=== PATIENT | male | born 1980 | race Caucasian/White ===

== ENCOUNTER 2020-11-09 14:42 | Emergency (ER) | payer SELFPAY ==
[~2020-11-09] VITALS: Ht 180 cm; Wt 108.0 kg
--- NOTE | 2020-11-09 15:00 | ED Lower Extremity ---
General Chief Complaint: Lower Extremity Stated Complaint: R KNEE PAIN Source: patient Exam Limitations: no limitations History of Present Illness Date Seen by Provider: Nov 09, 2020 Time Seen by Provider: 14:59 Initial Comments To ER with right lateral knee pain x4 days no known injury. He had this happen previously but it resolved on its own. No fevers or chills. He has been jogging lately. Onset: just prior to arrival Severity: moderate Pain/Injury Location: right knee Method of Injury: unknown Modifying Factors: Worse With Movement Allergies and Home Medications Allergies Coded Allergies: Penicillins (Verified Allergy, Unknown, 11/09/20) Home Medications Hydrocodone/Acetaminophen 1 Each Tablet, 1 TAB PO Q4H PRN for PAIN-MODERATE (5- 7) Prescribed by: SOFÍA ECHEVARRIA on 11/09/20 1553 Naproxen 500 Mg Tablet, 500 MG PO BID PRN for PAIN-SEVERE (8-10) Prescribed by: SOFÍA ECHEVARRIA on 11/09/20 1553 Patient Home Medication List Home Medication List Reviewed: Yes Review of Systems Constitutional: see HPI EENTM: see HPI Respiratory: no symptoms reported Cardiovascular: no symptoms reported Genitourinary: no symptoms reported Musculoskeletal: see HPI Skin: no symptoms reported Psychiatric/Neurological: No Symptoms Reported Physical Exam Vital Signs Vital Signs - First Documented 11/09/20 14:50 Temp 37.0 Pulse 94 Resp 16 B/P (MAP) 135/81 (99) Pulse Ox 97 O2 Delivery Room Air Capillary Refill : Height, Weight, BMI Height: '" Weight: lbs. oz. kg; BMI Method: General Appearance: WD/WN, no apparent distress Respiratory: no respiratory distress, no accessory muscle use Hips: bilateral hip non-tender, bilateral hip normal inspection, bilateral hip normal range of motion Legs: bilateral leg non-tender, bilateral leg normal inspection, bilateral leg normal range of motion Knees: right knee other (The lateral knee over the distal femur is tender to palpation but normal in appearance without palpable effusion no erythema no ecchymosis.) Ankles: bilateral ankle non-tender, bilateral ankle normal inspection, b ilateral ankle normal range of motion Feet: bilateral foot non-tender, bilateral foot normal inspection, bilateral foot normal range of motion Neurologic/Psychiatric: alert, normal mood/affect, oriented x 3 Skin: normal color, warm/dry Progress/Results/Core Measures Results/Orders My Orders Orders - SOFÍA ECHEVARRIA APRN Knee, Right, 3 Views (11/09/20 14:53) Ketorolac Injection (Toradol Injection) (11/09/20 16:00) Dexamethasone Injection (Decadron Inje (11/09/20 16:00) Vital Signs/I&O 11/09/20 14:50 Temp 37.0 Pulse 94 Resp 16 B/P (MAP) 135/81 (99) Pulse Ox 97 O2 Delivery Room Air Departure Impression Primary Impression: Iliotibial band syndrome of right side Disposition: HOME, SELF-CARE Condition: Stable Departure-Patient Inst. Decision time for Depature: 15:04 Referrals: NO,LOCAL PHYSICIAN (PCP) Primary Care Physician CORINA CORDERO MD, MICHAEL P MD Patient Instructions: NO INSTRUCTIONS GIVEN Add. Discharge Instructions: Ice pack to the area for 15 minutes every hour for the next few days. Take a nti-inflammatories as directed. Avoid any activities that worsen the pain for at least a week. Follow-up with one of the orthopedist listed. Call tomorrow to make an appointment to be seen. All discharge instructions reviewed with patient and/or family. Voiced understanding. Scripts Hydrocodone/Acetaminophen (Hydrocodone-Acetamin 5-325 mg) 1 Each Tablet 1 TAB PO Q4H PRN for PAIN-MODERATE (5-7), #5 TAB Prov: SOFÍA ECHEVARRIA APRN 11/09/20 Naproxen (Naprosyn) 500 Mg Tablet 500 MG PO BID PRN for PAIN-SEVERE (8-10), #30 TAB 0 Refills Prov: SOFÍA ECHEVARRIA APRN 11/09/20 Images Extremities-Lower 1 - Tenderness SOFÍA ECHEVARRIA APRN Nov 09, 2020 15:00
--- NOTE | 2020-11-09 15:36 | Diagnostic Imaging Report ---
EXAMINATION: Right knee 3 views. HISTORY: Pain. COMPARISON: None available. FINDINGS: No fracture is seen. Alignment is normal. There is no effusion. IMPRESSION: No fracture in the right knee. Dictated by: Dictated on workstation # [id number]
[2020-11-09] MEDS ORDERED: ACHD5005 PO (15:53)
[2020-11-09] MEDS ORDERED: NAPR-1071 PO (15:53)
[2020-11-09] MEDS ORDERED: KETOROLAC 60 MG/2 ML VIAL IM ONE (16:00)
[2020-11-09 16:02] VITALS: BP 135/81
== END 2020-11-09 16:02 | disposition home or self-care (01) ==
LOC: ER 14:45
DX: M76.31 Iliotibial band syndrome, right leg (principal); Z88.0 Allergy status to penicillin
CPT/HCPCS: 73562

== ENCOUNTER 2020-11-12 18:46 | Inpatient (IN) | payer SELFPAY ==
[~2020-11-12] VITALS: Ht 180.3 cm; Wt 120.4 kg
[~2020-11-12 18:46] MED LIST: ACHD5005 PO; NAPR-1071 PO
--- NOTE | 2020-11-12 18:53 | ED General ---
General Stated Complaint: LEFT SIDE NUMBNESS, CP Source of Information: Patient Exam Limitations: No Limitations History of Present Illness Date Seen by Provider: Nov 12, 2020 Time Seen by Provider: 18:52 Initial Comments To ER with chest pain x4 days, shortness of breath since yesterday. No cough. Numbness left pinky finger/ left face that started 2 hours ago. States that he has a history of atrial fibrillation. Does not take his medications for it. Just moved back here from [facility] after getting out of halfway. Timing/Duration: 1-2 Days Severity: Moderate Associated Systoms: Denies Symptoms Allergies and Home Medications Allergies Coded Allergies: Penicillins (Verified Allergy, Unknown, 11/09/20) Home Medications Hydrocodone/Acetaminophen 1 Each Tablet, 1 TAB PO Q4H PRN for PAIN-MODERATE (5- 7) Prescribed by: SOFÍA ECHEVARRIA on 11/09/20 155 Naproxen 500 Mg Tablet, 500 MG PO BID PRN for PAIN-SEVERE (8-10) Prescribed by: SOFÍA ECHEVARRIA on 11/09/20 155 Patient Home Medication List Home Medication List Reviewed: Yes Review of Systems Review of Systems Constitutional: see HPI EENTM: see HPI Respiratory: no symptoms reported Cardiovascular: no symptoms reported Genitourinary: no symptoms reported Musculoskeletal: no symptoms reported Skin: no symptoms reported Psychiatric/Neurological: No Symptoms Reported Hematologic/Lymphatic: No Symptoms Reported Immunological/Allergic: no symptoms reported Past Nxisoqa-Rhzypo-Zqlhov Hx Patient Social History Recent Hopitalizations: No Past Medical History Surgeries: No Respiratory: No Cardiac: Yes Atrial Fibrillation Neurological: No Genitourinary: No Gastrointestinal: No Musculoskeletal: No Endocrine: No HEENT: No Cancer: No Psychosocial: No Integumentary: No Physical Exam Vital Signs Vital Signs - First Documented 11/12/20 18:48 Temp 35.9 Pulse 180 Resp 28 B/P (MAP) 157/115 (129) Pulse Ox 98 O2 Delivery Room Air Capillary Refill : Height, Weight, BMI Height: '" Weight: lbs. oz. kg; 33.00 BMI Method: General Appearance: No Apparent Distress, WD/WN, Obese Eyes: Bilateral Eye Normal Inspection, Bilateral Eye PERRL, Bilateral Eye EOMI Neck: Full Range of Motion, Normal Inspection Respiratory: No Accessory Muscle Use, No Respiratory Distress Cardiovascular: Irregularly Irregular, Tachycardia Gastrointestinal: Non Tender, Soft Extremity: Normal Capillary Refill, Normal Inspection Neurologic/Psychiatric: Alert, Oriented x3 Skin: Normal Color, Warm/Dry Progress/Results/Core Measures Suspected Sepsis SIRS Temperature: Pulse: Respiratory Rate: Laboratory Tests 11/12/20 18:56: White Blood Count 16.1H Blood Pressure / Mean: Laboratory Tests 11/12/20 18:56: Creatinine 1.02, INR Comment 1.1, Platelet Count 252, Total Bilirubin 0.4 Results/Orders Lab Results Laboratory Tests Test 11/12/20 18:56 11/12/20 20:07 Range/Units White Blood Count 16.1 H 4.3-11.0 10^3/uL Red Blood Count 4.82 4.30-5.52 10^6/uL Hemoglobin 15.5 13.3-17.7 g/dL Hematocrit 46 40-54 % Mean Corpuscular Volume 94 80-99 fL Mean Corpuscular Hemoglobin 32 25-34 pg Mean Corpuscular Hemoglobin Concent 34 32-36 g/dL Red Cell Distribution Width 13.7 10.0-14.5 % Platelet Count 252 130-400 10^3/uL Mean Platelet Volume 11.3 9.0-12.2 fL Immature Granulocyte % (Auto) 1 % Neutrophils (%) (Auto) 64 42-75 % Lymphocytes (%) (Auto) 23 12-44 % Monocytes (%) (Auto) 10 0-12 % Eosinophils (%) (Auto) 2 0-10 % Basophils (%) (Auto) 0 0-10 % Neutrophils # (Auto) 10.3 H 1.8-7.8 10^3/uL Lymphocytes # (Auto) 3.7 1.0-4.0 10^3/uL Monocytes # (Auto) 1.5 H 0.0-1.0 10^3/uL Eosinophils # (Auto) 0.3 0.0-0.3 10^3/uL Basophils # (Auto) 0.1 0.0-0.1 10^3/uL Immature Granulocyte # (Auto) 0.2 H 0.0-0.1 10^3/uL Prothrombin Time 14.8 H 12.2-14.7 SEC INR Comment 1.1 0.8-1.4 Activated Partial Thromboplast Time 29 24-35 SEC Sodium Level 137 135-145 MMOL/L Potassium Level 4.1 3.6-5.0 MMOL/L Chloride Level 101 98-107 MMOL/L Carbon Dioxide Level 22 21-32 MMOL/L Anion Gap 14 5-14 MMOL/L Blood Urea Nitrogen 27 H 7-18 MG/DL Creatinine 1.02 0.60-1.30 MG/DL Estimat Glomerular Filtration Rate > 60 BUN/Creatinine Ratio 26 Glucose Level 110 H 70-105 MG/DL Calcium Level 9.5 8.5-10.1 MG/DL Corrected Calcium 9.3 8.5-10.1 MG/DL Magnesium Level 2.1 1.6-2.4 MG/DL Total Bilirubin 0.4 0.1-1.0 MG/DL Aspartate Amino Transf (AST/SGOT) 47 H 5-34 U/L Alanine Aminotransferase (ALT/SGPT) 69 H 0-55 U/L Alkaline Phosphatase 69 40-136 U/L Myoglobin 93.0 H 10.0-92.0 NG/ML Troponin I 0.031 H <0.028 NG/ML B-Type Natriuretic Peptide 864.2 H <100.0 PG/ML Total Protein 7.7 6.4-8.2 GM/DL Albumin 4.3 3.2-4.5 GM/DL Procalcitonin 0.05 <0.10 NG/ML My Orders Orders - SOFÍA ECHEVARRIA APRN Cbc With Automated Diff (11/12/20 18:50) Magnesium (11/12/20 18:50) Chest 1 View, Ap/Pa Only (11/12/20 18:50) Ekg Tracing (11/12/20 18:50) Comprehensive Metabolic Panel (11/12/20 18:50) Myoglobin Serum (11/12/20 18:50) Protime With Inr (11/12/20 18:50) Partial Thromboplastin Time (11/12/20 18:50) O2 (11/12/20 18:50) Monitor-Rhythm Ecg Trace Only (11/12/20 18:50) Lipid Panel (11/13/20 06:00) Ed Iv/Invasive Line Start (11/12/20 18:50) BNP (11/12/20 18:50) Troponin I (11/12/20 18:50) Aspirin Chewable Tablet (Baby Aspirin Ch (11/12/20 19:00) Diltiazem Injection (Cardizem Injection) (11/12/20 19:00) Diltiazem Drip Pre-Mix (Cardizem Drip Pr (11/12/20 19:00) Ct Angio Head/Neck (11/12/20 18:57) Iohexol Injection (Omnipaque 350 Mg/Ml 1 (11/12/20 19:00) Received Contrast (Hold Metformin- Contr (11/12/20 19:00) Ns (Ivpb) (Sodium Chloride 0.9% Ivpb Bag (11/12/20 19:00) Manual Differential (11/12/20 18:56) Procalcitonin (Pct) (11/12/20 19:25) Ns Iv 1000 Ml (Sodium Chloride 0.9%) (11/12/20 19:30) Ua Culture If Indicated (11/12/20 19:50) Drug Screen Stat (Urine) (11/12/20 19:50) Apixaban Tablet (Eliquis Tablet) (11/12/20 20:00) Lipase (11/12/20 20:06) Antacid Suspension (Mylanta Suspension (11/12/20 20:15) Lidocaine 2% Viscous 15 Ml (Xylocaine Vi (11/12/20 20:15) Medications Given in ED Current Medications Medications Dose Ordered Sig/[place] Route Start Time Stop Time Status Last Admin Dose Admin Al Hydrox/Mg Hydrox/Simethicone 30 ml ONCE ONCE PO 11/12/20 20:15 11/12/20 20:16 11/12/20 20:14 30 ML Apixaban 5 mg ONCE ONCE PO 11/12/20 20:00 11/12/20 20:01 DC 11/12/20 20:14 5 MG Aspirin 324 mg ONCE ONCE PO 11/12/20 19:00 11/12/20 19:01 DC 11/12/20 19:42 324 MG Diltiazem HCl 10 mg ONCE ONCE IVP 11/12/20 19:00 11/12/20 19:01 DC 11/12/20 19:42 10 MG Iohexol 75 ml ONCE ONCE IV 11/12/20 19:00 11/12/20 19:17 DC 11/12/20 19:13 75 ML Lidocaine HCl 15 ml ONCE ONCE PO 11/12/20 20:15 11/12/20 20:16 11/12/20 20:14 15 ML Sodium Chloride 100 ml ONCE ONCE IV 11/12/20 19:00 11/12/20 19:17 DC 11/12/20 19:13 80 ML Vital Signs/I&O 11/12/20 11/12/20 18:48 18:48 Temp 35.9 Pulse 180 Resp 28 B/P (MAP) 157/115 (129) Pulse Ox 98 O2 Delivery Room Air Capillary Refill : Diagnostic Imaging Diagonstic Imaging: Xray Comments NAME: PAL VALERIO [facility] REC#: [id number] PT STATUS: REG ER : 1980 PHYSICIAN: SOFÍA ECHEVARRIA APRN ADMIT DATE: 11/12/20/ER Draft Date of Exam:11/12/20 CHEST 1 VIEW, AP/PA ONLY INDICATION: Left-sided facial numbness and shortness of air. EXAMINATION: Chest, 11/12/2020. FINDINGS: The heart is enlarged. The pulmonary vasculature is congested with findings of edema throughout both lungs. There is minimal atelectasis or infiltrate at the right lung base. No effusion or pneumothorax. IMPRESSION: 1. Pulmonary vascular congestion. 2. Right base atelectasis or infiltrate. Dictated on workstation # [id number] Dict: 11/12/201908 Trans: 11/12/201911 [id number] Interpreted by: SHARON SINGH MD Electronically signed by: NAME: PAL VALERIO [facility] REC#: [id number] PT STATUS: REG ER : 1980 PHYSICIAN: SOFÍA ECHEVARRIA APRN ADMIT DATE: 11/12/20/ER Signed Date of Exam:11/12/20 CT ANGIO HEAD/NECK PROCEDURE: CT angiography of the head and CT angiography of the neck with and without contrast. TECHNIQUE: Contiguous noncontrast images were obtained from the skull base through the vertex. After intravenous contrast administration, helical CT angiography of the neck was performed. Source data was reformatted into 3D MIP projections. Delayed post contrast acquisition was also obtained. Auto Exposure Controls were utilized during the CT exam to meet ALARA standards for radiation dose reduction. INDICATION: Tachycardia. Left facial numbness. Left-sided weakness. Atrial fibrillation. COMPARISON: None. FINDINGS: CTA neck: The visualized portions of the aortic arch demonstrate no evidence of aneurysm or dissection. There is conventional branching pattern of the great vessels of the aorta. The brachiocephalic artery is normal in course and caliber. The right and left common carotid origins are unremarkable. The origin of the left subclavian artery is patent. The common carotid arteries and internal carotid arteries demonstrate a normal course and caliber without evidence of focal stenosis. No evidence of dissection in the carotid systems. The external carotid arteries are patent and unremarkable. The left vertebral artery is dominant. The origin of the right vertebral artery is seen and is unremarkable. The origin of the left vertebral artery is seen and is unremarkable. There is no focal stenosis seen within the neck. There is no dissection. The vertebral arteries are well visualized to up to the level of the basilar artery. The osseous structures of the cervical spine are unremarkable. Included views through the lung apices demonstrate no focal consolidation. CTA brain: The distal internal carotid arteries demonstrate normal caliber without evidence of stenosis. No stenosis is seen in the bilateral anterior, middle, and posterior cerebral arteries. No evidence of aneurysm the [place]. In the posterior circulation, both of the vertebral arteries demonstrate normal opacification. The left vertebral artery is dominant. The right vertebral artery functionally ends in PICA. Both the right and left PICA arteries are identified. The basilar artery is normal in course and caliber. The terminal branch vessels including the superior cerebellar arteries unremarkable. CT head: No large acute territorial ischemia, mass, or hemorrhage. No midline shift or mass effect. The ventricles, cortical sulci, and basilar cisterns are patent and unremarkable. The calvarium is intact. The visualized paranasal sinuses are clear. IMPRESSION: 1. No stenosis or aneurysm in the [place]. 2. No stenosis or dissection the bilateral carotid and vertebral arteries. 3. No large acute territorial ischemia, mass, or hemorrhage. Dictated by: Dictated on workstation # [id number] Dict: 11/12/201930 Trans: 11/12/201946 PJE [id number] Interpreted by: MARILYN FREIRE DO Electronically signed by: MARILYN FREIRE DO 11/12/201946 Departure Communication (Admissions) Time/Spoke to Admitting Phy: 20:[address] Hernandez, will continue the Cardizem drip and of the Eliquis. Patient does now complain of some epigastric abdominal tenderness to palpation. I will order lipase and a GI cocktail. Heart rate is currently at 111. Cardizem at 15 mg an hour. Tingling in the left side of the face and the left pinky finger is now gone, he states "maybe I was just having a panic attack". Impression Primary Impression: Atrial fibrillation with RVR Disposition: ADMITTED INPATIENT Condition: Stable Admissions Decision to Admit Reason: Admit from ER (General) Decision to Admit/Date: Nov 12, 2020 Time/Decision to Admit Time: 19:09 Departure-Patient Inst. Referrals: NO,LOCAL PHYSICIAN (PCP/Family) Primary Care Physician SOFÍA ECHEVARRIA APRN Nov 12, 2020 18:53
[2020-11-12] MEDS ORDERED: ASPIRIN 81 MG CHEW (CHILDREN'S ASA) PO ONE (19:00)
[2020-11-12] MEDS ORDERED: dilTIAZem DRIP PRE-MIX 125 ML IV SCH (19:00)
[2020-11-12] MEDS ORDERED: HOLD METFORMIN - RECEIVED CONTRAST 20 ML VIAL IV SCH (19:00)
[2020-11-12] MEDS ORDERED: IOHEXOL 350 MG/ML 100 ML (OMNIPAQUE 350) VIAL IV ONE (19:00)
[2020-11-12] MEDS ORDERED: NS 100 ML (IVPB) BAG IV ONE (19:00)
--- NOTE | 2020-11-12 19:12 | Diagnostic Imaging Report ---
INDICATION: Left-sided facial numbness and shortness of air. EXAMINATION: Chest, 11/12/2020. FINDINGS: The heart is enlarged. The pulmonary vasculature is congested with findings of edema throughout both lungs. There is minimal atelectasis or infiltrate at the right lung base. No effusion or pneumothorax. IMPRESSION: 1. Pulmonary vascular congestion. 2. Right base atelectasis or infiltrate. Dictated by: Dictated on workstation # [id number]
[2020-11-12 19:16] LABS: BASOPHILS # (AUTO) 0.1 10^3/uL (0.0-0.1); BASOPHILS % (AUTO) 0 % (0-10); EOSINOPHILS # (AUTO) 0.3 10^3/uL (0.0-0.3); EOSINOPHILS % (AUTO) 2 % (0-10); HEMATOCRIT 46 % (40-54); HEMOGLOBIN 15.5 g/dL (13.3-17.7); LYMPHOCYTES # (AUTO) 3.7 10^3/uL (1.0-4.0); LYMPHOCYTES % (AUTO) 23 % (12-44); MEAN CORPUSCULAR HEMOGLOBIN 32 pg (25-34); MEAN CORPUSCULAR HGB CONC 34 g/dL (32-36); MEAN CORPUSCULAR VOLUME 94 fL (80-99); MEAN PLATELET VOLUME 11.3 fL (9.0-12.2); MONOCYTES # (AUTO) 1.5 10^3/uL (0.0-1.0); MONOCYTES % (AUTO) 10 % (0-12); NEUTROPHILS # (AUTO) 10.3 10^3/uL (1.8-7.8); NEUTROPHILS % (AUTO) 64 % (42-75); PLATELET COUNT 252 10^3/uL (130-400); WHITE BLOOD COUNT 16.1 10^3/uL (4.3-11.0)
[2020-11-12 19:19] LABS: ALBUMIN 4.3 GM/DL (3.2-4.5); CHLORIDE 101 MMOL/L (98-107); POTASSIUM 4.1 MMOL/L (3.6-5.0); SODIUM 137 MMOL/L (135-145)
[2020-11-12 19:20] LABS: CALCIUM 9.5 MG/DL (8.5-10.1)
[2020-11-12 19:21] LABS: GLUCOSE 110 MG/DL (70-105)
[2020-11-12 19:22] LABS: TOTAL PROTEIN 7.7 GM/DL (6.4-8.2)
[2020-11-12 19:23] LABS: BILIRUBIN,TOTAL 0.4 MG/DL (0.1-1.0); CARBON DIOXIDE 22 MMOL/L (21-32)
[2020-11-12 19:25] LABS: ALKALINE PHOSPHATASE 69 U/L (40-136); CREATININE SERUM 1.02 MG/DL (0.60-1.30); GFR ESTIMATED > 60
[2020-11-12 19:26] LABS: BUN/CREATININE RATIO 26
[2020-11-12 19:28] LABS: ALANINE AMINOTRANSFERASE 69 U/L (0-55); INR 1.1 (0.8-1.4); MAGNESIUM 2.1 MG/DL (1.6-2.4); PROTHROMBIN TIME PATIENT 14.8 SEC (12.2-14.7)
[2020-11-12] MEDS ORDERED: NS IV 1000 ML 1,000 ML IV SCH (19:30)
--- NOTE | 2020-11-12 19:42 | Diagnostic Imaging Report ---
PROCEDURE: CT angiography of the head and CT angiography of the neck with and without contrast. TECHNIQUE: Contiguous noncontrast images were obtained from the skull base through the vertex. After intravenous contrast administration, helical CT angiography of the neck was performed. Source data was reformatted into 3D MIP projections. Delayed post contrast acquisition was also obtained. Auto Exposure Controls were utilized during the CT exam to meet ALARA standards for radiation dose reduction. INDICATION: Tachycardia. Left facial numbness. Left-sided weakness. Atrial fibrillation. COMPARISON: None. FINDINGS: CTA neck: The visualized portions of the aortic arch demonstrate no evidence of aneurysm or dissection. There is conventional branching pattern of the great vessels of the aorta. The brachiocephalic artery is normal in course and caliber. The right and left common carotid origins are unremarkable. The origin of the left subclavian artery is patent. The common carotid arteries and internal carotid arteries demonstrate a normal course and caliber without evidence of focal stenosis. No evidence of dissection in the carotid systems. The external carotid arteries are patent and unremarkable. The left vertebral artery is dominant. The origin of the right vertebral artery is seen and is unremarkable. The origin of the left vertebral artery is seen and is unremarkable. There is no focal stenosis seen within the neck. There is no dissection. The vertebral arteries are well visualized to up to the level of the basilar artery. The osseous structures of the cervical spine are unremarkable. Included views through the lung apices demonstrate no focal consolidation. CTA brain: The distal internal carotid arteries demonstrate normal caliber without evidence of stenosis. No stenosis is seen in the bilateral anterior, middle, and posterior cerebral arteries. No evidence of aneurysm the [place]. In the posterior circulation, both of the vertebral arteries demonstrate normal opacification. The left vertebral artery is dominant. The right vertebral artery functionally ends in PICA. Both the right and left PICA arteries are identified. The basilar artery is normal in course and caliber. The terminal branch vessels including the superior cerebellar arteries unremarkable. CT head: No large acute territorial ischemia, mass, or hemorrhage. No midline shift or mass effect. The ventricles, cortical sulci, and basilar cisterns are patent and unremarkable. The calvarium is intact. The visualized paranasal sinuses are clear. IMPRESSION: 1. No stenosis or aneurysm in the [place]. 2. No stenosis or dissection the bilateral carotid and vertebral arteries. 3. No large acute territorial ischemia, mass, or hemorrhage. Dictated by: Dictated on workstation # [id number]
[2020-11-12] MEDS ORDERED: APIXABAN 5 MG (ELIQUIS) TABLET PO ONE (20:00)
[2020-11-12 20:13] LABS: BILIRUBIN,URINE NEGATIVE (NEGATIVE); CLARITY,URINE CLEAR; COLOR,URINE YELLOW; GLUCOSE, URINE (UA) NEGATIVE (NEGATIVE); KETONES,URINE NEGATIVE (NEGATIVE); LEUKOCYTE ESTERASE ,URINE NEGATIVE (NEGATIVE); NITRITE,URINE NEGATIVE (NEGATIVE); PH,URINE 5.5 (5-9); PROTEIN,URINE TRACE (NEGATIVE)
[2020-11-12] MEDS ORDERED: ANTACID SUSP 30 ML UDC (MYLANTA) PO ONE (20:15)
[2020-11-12] MEDS ORDERED: LIDOCAINE 2% VISCOUS 15 ML UDC PO ONE (20:15)
[2020-11-12 20:33] LABS: EOSINOPHILS % (MANUAL) 2 %; LYMPHOCYTES % (MANUAL) 25 %; MONOCYTES % (MANUAL) 8 %; NEUTROPHILS % (MANUAL) 65 %; RBC MORPH NORMAL
[2020-11-12 20:54] LABS: AMPHETAMINE SCREEN, URINE NEGATIVE (NEGATIVE); BARBITURATE SCREEN URINE NEGATIVE (NEGATIVE); BENZODIAZEPINES SCREEN URINE NEGATIVE (NEGATIVE); CANNABINOID SCREEN, URINE NEGATIVE (NEGATIVE); COCAINE SCREEN URINE NEGATIVE (NEGATIVE); METHADONE STAT NEGATIVE (NEGATIVE); METHAMPHETAMINE SCREEN URINE S NEGATIVE (NEGATIVE); OPIATE SCREEN URINE NEGATIVE (NEGATIVE); OXYCODONE STAT NEGATIVE (NEGATIVE); PROPOXYPHENE STAT NEGATIVE (NEGATIVE); TRICYCLIC ANTIDEPRESSANTS SCRE NEGATIVE (NEGATIVE)
[2020-11-12 20:56] LABS: AMORPHOUS SEDIMENT,UR RARE AMOR URATES /LPF; BACTERIA,URINE TRACE /HPF; RBC,URINE RARE /HPF; WBC,URINE RARE /HPF
--- NOTE | 2020-11-12 21:55 | NUR ---
PT TO HOLD IN ER UNTIL ICU ROOM AVAILABLE.
[2020-11-12] MEDS ORDERED: NITROGLYCERIN 2% OINT 1 GM UNIT DOSE PACKET TOP ONE (22:00)
[2020-11-12] MEDS ORDERED: morphine INJ 10 MG/ML 1ML (SYR OR VIAL) IVP STA (22:13)
[2020-11-12] MEDS ORDERED: meTOprolol 5 MG/5 ML (LOPRESSOR) VIAL IV ONE (22:15)
[2020-11-12] MEDS ORDERED: AZITHROMYCIN 250 MG TAB (ZITHROMAX) PO ONE (23:45)
[2020-11-12] MEDS ORDERED: cefTRIAXone 1,000 MG/SWFI 10 ML IV PUSH IV SCH ×2 (23:46)
[2020-11-13] MEDS ORDERED: AZITHROMYCIN 250 MG TAB (ZITHROMAX) PO ONE (02:01)
[2020-11-13] MEDS: dilTIAZem DRIP PRE-MIX 125 ML IV SCH ×4 (02:06→23:33)
--- NOTE | 2020-11-13 04:00 | Pulmonary Progress Note ---
Subjective Date Seen by a Provider: Nov 13, 2020 Time Seen by a Provider: 03:53 Subjective/Events-last exam Pt states he has hx of AFib with RVR. Has been cardioverted 7 times. Was going to get an ablation 5 weeks ago but left [facility] where the procedure was scheduled. States this is the best medication has done for him. Has GI pain. Hx of peptic ulcers. Sepsis Event Evaluation Height, Weight, BMI Height: '" Weight: lbs. oz. kg; 37.31 BMI Method: Exam Exam Vital Signs Date Time Temp Pulse Resp B/P (MAP) Pulse Ox O2 Delivery O2 Flow Rate FiO2 11/13/20 01:00 127 11/12/20 23:47 104 11/12/20 23:21 35.9 97 16 114/59 (129) 99 Room Air 11/12/20 22:45 36.6 97 15 129/92 (104) 97 Room Air 11/12/20 22:45 98 Room Air 11/12/20 18:48 Room Air 11/12/20 18:48 35.9 180 28 157/115 (129) 98 I & O 11/13/20 07:00 Intake Total 1000 ml Balance 1000 ml Height & Weight Height: '" Weight: lbs. oz. kg; 37.31 BMI Method: General Appearance: No Apparent Distress, WD/WN, Obese Neck: Full Range of Motion, Normal Inspection Respiratory: No Accessory Muscle Use, No Respiratory Distress Cardiovascular: Irregularly Irregular, Tachycardia Capillary Refill: Less Than 3 Seconds Extremity: Normal Capillary Refill, Normal Inspection Neurologic/Psychiatric: Alert, Oriented x3 Skin: Normal Color, Warm/Dry Results Lab Laboratory Tests 11/12/20 18:56 Assessment/Plan Assessment/Plan AFib w/ RVR -Diltiazem 20 mls/hr -Eliquis 5mg BID Epigastric pain -Protonix -Check BUN and HgB When CBC, CMP, and troponin come back and treat accordingly. VITALIY BAL MED STUDENT Nov 13, 2020 04:00
[2020-11-13] MEDS ORDERED: FUROSEMIDE 40 MG/4 ML INJ (LASIX) IVP ONE (06:00)
[2020-11-13] MEDS: KCL 20 MEQ TAB (K-DUR) PO SCH (06:36)
[2020-11-13] MEDS: POTASSIUM CL 10MEQ/50ML IVPB 50 ML IV SCH (06:36)
[2020-11-13] MEDS: MAGNESIUM 1 GM/100 ML IVPB 100 ML IV SCH (06:36)
[2020-11-13 06:43] LABS: CHLORIDE 105 MMOL/L (98-107); SODIUM 137 MMOL/L (135-145)
[2020-11-13 06:44] LABS: CALCIUM 8.8 MG/DL (8.5-10.1)
[2020-11-13 06:45] LABS: TRIGLYCERIDES 254 MG/DL (<150); VLDL CHOLESTEROL 51 MG/DL (5-40)
[2020-11-13 06:46] LABS: GLUCOSE 116 MG/DL (70-105)
[2020-11-13 06:47] LABS: CARBON DIOXIDE 21 MMOL/L (21-32)
[2020-11-13 06:49] LABS: CREATININE SERUM 0.81 MG/DL (0.60-1.30); GFR ESTIMATED > 60; PHOSPHORUS 3.7 MG/DL (2.3-4.7)
[2020-11-13 06:50] LABS: BUN/CREATININE RATIO 26; CHOLESTEROL 212 MG/DL (< 200)
[2020-11-13 06:51] LABS: HDL CHOLESTEROL 33 MG/DL (40-60)
[2020-11-13 06:52] LABS: MAGNESIUM 2.2 MG/DL (1.6-2.4)
--- NOTE | 2020-11-13 07:47 | Pulmonary Consultation ---
History of Present Illness History of Present Illness Date Seen by Provider: Nov 13, 2020 Time Seen by Provider: 07:42 Date of Admission History of Present Illness This is a 40yoM with a hx of AFib and not on medications. He presented to the ED last night with a four day history of chest pain. He has been cardioverted 7 times before this episode. He was scheduled for an ablation in [facility] 5 weeks ago but it was not performed because he moved to [place]. Has epigastric pain and a hx of peptic ulcers. Allergies and Home Medications Allergies Coded Allergies: Penicillins (Verified Allergy, Unknown, 11/09/20) Home Medications Hydrocodone/Acetaminophen 1 Each Tablet, 1 TAB PO Q4H PRN for PAIN-MODERATE (5- 7) Prescribed by: SOFÍA ECHEVARRIA on 11/09/20 1553 Naproxen 500 Mg Tablet, 500 MG PO BID PRN for PAIN-SEVERE (8-10) Prescribed by: SOFÍA ECHEVARRIA on 11/09/20 1553 Past Flamdli-Tlvuwy-Qcxuuf Hx Patient Social History Alcohol Use: Occasionally Uses Number of Drinks Today: 2 Alcohol Beverage of Choice: Beer Smoking Status: Former Smoker Type Used: Cigarettes Recent Infectious Disease Expo: No Recent Hopitalizations: No Have you traveled recently?: Yes Alcohol Use?: Yes Immunizations Up To Date Date of Influenza Vaccine: Aug 09, 2020 Past Medical History Surgeries: Yes (HERNIA REPAIR) Appendectomy Respiratory: No Cardiac: Yes Atrial Fibrillation Neurological: No Genitourinary: No Gastrointestinal: No Musculoskeletal: No Endocrine: No HEENT: No Cancer: No Psychosocial: No Integumentary: No Review of Systems Cardiovascular: Chest Pain Gastrointestinal: Abdominal Pain (epigastric) Sepsis Event Evaluation Height, Weight, BMI Height: '" Weight: lbs. oz. kg; 37.31 BMI Method: Exam Exam Vital Signs Date Time Temp Pulse Resp B/P (MAP) Pulse Ox O2 Delivery O2 Flow Rate FiO2 11/13/20 07:00 102 14 108/88 (95) 93 Room Air 11/13/20 06:00 113 21 105/75 (85) 95 Room Air 11/13/20 05:00 99 13 111/74 (86) 92 Room Air 11/13/20 04:00 112 13 115/91 (99) 95 Room Air 11/13/20 03:00 111 16 111/76 (88) 96 Room Air 11/13/20 01:45 130 15 110/68 (82) 95 Room Air 11/13/20 01:15 98 15 104/86 (92) 96 Room Air 11/13/20 01:00 127 11/13/20 00:45 124 15 97 Room Air 11/13/20 00:30 105 14 94 Room Air 11/13/20 00:15 112 16 95 Room Air 11/13/20 00:00 108 12 129/91 (104) 99 Room Air 11/12/20 23:47 104 11/12/20 23:21 35.9 97 16 114/59 (129) 99 Room Air 11/12/20 22:45 36.6 97 15 129/92 (104) 97 Room Air 11/12/20 22:45 98 Room Air 11/12/20 18:48 Room Air 11/12/20 18:48 35.9 180 28 157/115 (129) 98 I & O 11/13/20 07:00 Intake Total 1525 ml Output Total 1025 ml Balance 500 ml Height & Weight Height: '" Weight: lbs. oz. kg; 37.31 BMI Method: General Appearance: No Apparent Distress, WD/WN, Obese Neck: Full Range of Motion, Normal Inspection Respiratory: No Accessory Muscle Use, No Respiratory Distress Cardiovascular: Irregularly Irregular, Tachycardia Capillary Refill: Less Than 3 Seconds Gastrointestinal: tenderness (epigastric) Extremity: Normal Capillary Refill, Normal Inspection Neurologic/Psychiatric: Alert, Oriented x3 Skin: Normal Color, Warm/Dry Results Lab Laboratory Tests 11/12/20 18:56 11/13/20 05:58 Assessment/Plan Assessment/Plan AFib w/ RVR -Cardiac consulted -Diltiazem 20 mls/hr -Eliquis 5mg BID Heart failure -BNP 864 -Lasix 40mg -Transthoracic echo Epigastric pain -Protonix -BUN 21 -HgB 15.5 Leukocytosis -Ceftriaxone 200mls/hr -Azithromycin 250mg Hyperlipidemia -Patient education/lifestyle modifications -Atorvastatin 10mg Hypertriglyceridemia -Patient education/lifestyle modifications -Atorvastatin 10mg VITALIY BAL MED STUDENT Nov 13, 2020 07:47
--- NOTE | 2020-11-13 07:48 | Diagnostic Imaging Report ---
EXAM: CHEST 1 VIEW, AP/PA ONLY INDICATION: Cardiac arrhythmia. COMPARISON: Chest radiograph 11/12/2020. FINDINGS: Normal heart size with mild pulmonary vascular congestion. No focal pulmonary opacity. No pleural effusion or pneumothorax. IMPRESSION: Cardiomegaly with mild pulmonary vascular congestion which has likely progressed since yesterday. Dictated by: Dictated on workstation # [id number]
[2020-11-13] MEDS ORDERED: AMIODARONE INJECTION 150 MG in D5W 100 ML IVPB 100 ML IV NR (08:15)
[2020-11-13] MEDS ORDERED: APIXABAN 5 MG (ELIQUIS) TABLET PO SCH (09:00)
[2020-11-13] MEDS ORDERED: DIGOXIN 0.25 MG/ML (LANOXIN) 2 ML AMP IV NR (09:00)
--- NOTE | 2020-11-13 09:23 | Consultation-Cardiology ---
HPI-Cardiology Cardiology Consultation Date of Consultation 11/13/20 Date of Admission Time Seen by Provider: 09:20 Indication: palpitation, shortness of breath HPI 40 years old gentleman with history of atrial fibrillation, was scheduled for ablation in [facility] where he lived until recently. Reported that he had multiple cardioversion in the past, total of 6. Patient moved to this area recently and he stopped taking all his medication, patient reported that medication dosage was increased and he didn't feel good so he stopped all his medication. Started to have palpitation with rapid heartbeat and shortness of breath and came to the emergency room where he was noted to be in atrial fibrillation with rapid ventricular response. Home Medications & Allergies Allergies: Coded Allergies: Penicillins (Verified Allergy, Unknown, 11/09/20) Home Medication List Reviewed: Yes VNK-Mbfzvw-Udkkju Hx Patient Social History Marital Status: single Recreational Drug Use: No Smoking Status: Former Smoker Type Used: Cigarettes Recent Hopitalizations: No Have you traveled recently?: Yes Alcohol Use?: Yes Immunizations Up To Date Date of Influenza Vaccine: Aug 09, 2020 Past Medical History discussed below Review of Systems-General Review of Systems Constitutional: see HPI, malaise, weakness EENTM: see HPI Respiratory: see HPI; No cough; dyspnea on exertion; No hemoptysis, No orthopnea, No phlegm, No short of breath, No stridor, No wheezing, No other Cardiovascular: see HPI; No chest pain, No edema, No Hx of Intervention; palpitations; No syncope, No vascular heart diseas, No other Gastrointestinal: no symptoms reported, see HPI Genitourinary: no symptoms reported, see HPI Musculoskeletal: no symptoms reported, see HPI Skin: no symptoms reported, see HPI Psychiatric/Neurological: No Symptoms Reported, See HPI Reviewed Test Results Reviewed Test Results Lab Laboratory Tests Test 11/12/20 18:56 11/12/20 20:07 11/13/20 00:25 11/13/20 05:58 Range/Units White Blood Count 16.1 H 4.3-11.0 10^3/uL Red Blood Count 4.82 4.30-5.52 10^6/uL Hemoglobin 15.5 13.3-17.7 g/dL Hematocrit 46 40-54 % Mean Corpuscular Volume 94 80-99 fL Mean Corpuscular Hemoglobin 32 25-34 pg Mean Corpuscular Hemoglobin Concent 34 32-36 g/dL Red Cell Distribution Width 13.7 10.0-14.5 % Platelet Count 252 130-400 10^3/uL Mean Platelet Volume 11.3 9.0-12.2 fL Immature Granulocyte % (Auto) 1 % Neutrophils (%) (Auto) 64 42-75 % Lymphocytes (%) (Auto) 23 12-44 % Monocytes (%) (Auto) 10 0-12 % Eosinophils (%) (Auto) 2 0-10 % Basophils (%) (Auto) 0 0-10 % Neutrophils # (Auto) 10.3 H 1.8-7.8 10^3/uL Lymphocytes # (Auto) 3.7 1.0-4.0 10^3/uL Monocytes # (Auto) 1.5 H 0.0-1.0 10^3/uL Eosinophils # (Auto) 0.3 0.0-0.3 10^3/uL Basophils # (Auto) 0.1 0.0-0.1 10^3/uL Immature Granulocyte # (Auto) 0.2 H 0.0-0.1 10^3/uL Neutrophils % (Manual) 65 % Lymphocytes % (Manual) 25 % Monocytes % (Manual) 8 % Eosinophils % (Manual) 2 % Blood Morphology Comment NORMAL Prothrombin Time 14.8 H 12.2-14.7 SEC INR Comment 1.1 0.8-1.4 Activated Partial Thromboplast Time 29 24-35 SEC Sodium Level 137 137 135-145 MMOL/L Potassium Level 4.1 4.0 3.6-5.0 MMOL/L Chloride Level 101 105 98-107 MMOL/L Carbon Dioxide Level 22 21 21-32 MMOL/L Anion Gap 14 11 5-14 MMOL/L Blood Urea Nitrogen 27 H 21 H 7-18 MG/DL Creatinine 1.02 0.81 0.60-1.30 MG/DL Estimat Glomerular Filtration Rate > 60 > 60 BUN/Creatinine Ratio 26 26 Glucose Level 110 H 116 H 70-105 MG/DL Calcium Level 9.5 8.8 8.5-10.1 MG/DL Corrected Calcium 9.3 8.5-10.1 MG/DL Magnesium Level 2.1 2.2 1.6-2.4 MG/DL Total Bilirubin 0.4 0.1-1.0 MG/DL Aspartate Amino Transf (AST/SGOT) 47 H 5-34 U/L Alanine Aminotransferase (ALT/SGPT) 69 H 0-55 U/L Alkaline Phosphatase 69 40-136 U/L Myoglobin 93.0 H 10.0-92.0 NG/ML Troponin I 0.031 H < 0.028 < 0.028 <0.028 NG/ML B-Type Natriuretic Peptide 864.2 H <100.0 PG/ML Total Protein 7.7 6.4-8.2 GM/DL Albumin 4.3 3.2-4.5 GM/DL Lipase 16 8-78 U/L Procalcitonin 0.05 <0.10 NG/ML Urine Color YELLOW Urine Clarity CLEAR Urine pH 5.5 5-9 Urine Specific [place] 1.015 L 1.016-1.022 Urine Protein TRACE H NEGATIVE Urine Glucose (UA) NEGATIVE NEGATIVE Urine Ketones NEGATIVE NEGATIVE Urine Nitrite NEGATIVE NEGATIVE Urine Bilirubin NEGATIVE NEGATIVE Urine Urobilinogen 0.2 < = 1.0 MG/DL Urine Leukocyte Esterase NEGATIVE NEGATIVE Urine RBC (Auto) NEGATIVE NEGATIVE Urine RBC RARE /HPF Urine WBC RARE /HPF Urine Crystals PRESENT H /LPF Urine Amorphous Sediment RARE JIHAN URATES H /LPF Urine Bacteria TRACE /HPF Urine Casts NONE /LPF Urine Mucus NEGATIVE /LPF Urine Culture Indicated NO Urine Opiates Screen NEGATIVE NEGATIVE Urine Oxycodone Screen NEGATIVE NEGATIVE Urine Methadone Screen NEGATIVE NEGATIVE Urine Propoxyphene Screen NEGATIVE NEGATIVE Urine Barbiturates Screen NEGATIVE NEGATIVE Ur Tricyclic Antidepressants Screen NEGATIVE NEGATIVE Urine Phencyclidine Screen NEGATIVE NEGATIVE Urine Amphetamines Screen NEGATIVE NEGATIVE Urine Methamphetamines Screen NEGATIVE NEGATIVE Urine Benzodiazepines Screen NEGATIVE NEGATIVE Urine Cocaine Screen NEGATIVE NEGATIVE Urine Cannabinoids Screen NEGATIVE NEGATIVE Phosphorus Level 3.7 2.3-4.7 MG/DL Triglycerides Level 254 H <150 MG/DL Cholesterol Level 212 H < 200 MG/DL LDL Cholesterol Direct 169 H 1-129 MG/DL VLDL Cholesterol 51 H 5-40 MG/DL HDL Cholesterol 33 L 40-60 MG/DL Physical Exam Physical Exam Vital Signs Vital Signs - First Documented 11/12/20 18:48 Temp 35.9 Pulse 180 Resp 28 B/P (MAP) 157/115 (129) Pulse Ox 98 O2 Delivery Room Air Capillary Refill : Less Than 3 Seconds Height, Weight, BMI Height: '" Weight: lbs. oz. kg; 37.31 BMI Method: General Appearance: No Apparent Distress, WD/WN, Obese Eyes: Bilateral Eye Normal Inspection, Bilateral Eye PERRL, Bilateral Eye EOMI Neck: Full Range of Motion, Normal Inspection Respiratory: No Accessory Muscle Use, No Respiratory Distress Cardiovascular: Irregularly Irregular, Tachycardia Gastrointestinal: Non Tender, Soft Extremity: Normal Capillary Refill, Normal Inspection Neurologic/Psychiatric: Alert, Oriented x3 Skin: Normal Color, Warm/Dry A/P-Cardiology Admission Diagnosis atrial fibrillation Tachycardia Noncompliant with medication Shortness of breath Assessment/Plan atrial fibrillation with rapid ventricular response, recurrent. Patient has been noncompliant with his medication, restarted on oral anticoagulation and Cardizem drip. Heart rate still high. Adding digoxin, I will consider adding amiodarone if needed. Possible PHILLIP and cardioversion Palpitations secondary to atrial fibrillation. Shortness of breath, probably secondary to atrial fibrillation, planning to evaluate echo. Monitor electrolyte, started on diuretics Hypertension, restart on diltiazem drip, I will titrate his medication and monitor blood pressure Hyperlipidemia, monitor lipids Leukocytosis. Maintained empirically on antibiotics History of gastroesophageal reflux disease Obesity, BMI 37, discussed weight loss Noncompliance with medication Clinical Quality Measures AMI/AHF: ASA po Prior to arrival: DEMIAN Casas MD Nov 13, 2020 09:23
[2020-11-13] MEDS ORDERED: PANTOPRAZOLE 40 MG (PROTONIX) VIAL IV NR (09:30)
[2020-11-13] MEDS: AMIODARONE INJECTION 450 MG in D5W IV SOLUTION (EXCEL) 250 ML IV SCH ×2 (09:39→18:18)
[2020-11-13] MEDS: AZITHROMYCIN 250 MG TAB (ZITHROMAX) PO SCH (10:31)
--- NOTE | 2020-11-13 10:39 | History & Physical-Hospitalist ---
History of Present Illness HPI/Chief Complaint Carlos Alexander is a 40-year-old male with past medical history of hypertension, atrial fibrillation, who presented with palpitations and shortness of breath. He reports that he has a history of atrial fibrillation. He recently moved here from [facility]. He stopped taking his medications recently for unclear reasons. He says for the past few days he has had a palpitations and a pulsating feeling in his neck. He also reports headaches. He denies any fevers or chills. He denies cough. He reports left upper quadrant abdominal pain. He reports having acid reflux. He does not take any medications for this. He denies any nausea or vomiting. He denies any diarrhea or constipation. Source: patient Exam Limitations: no limitations Date Seen 11/13/20 Time Seen by a Provider: 09:15 Attending Physician Erin Parsons DO PCP No,Local Physician Referring Physician Date of Admission Nov 12, 2020 at 20:00 Home Medications & Allergies Home Medications Reviewed patient Home Medication Reconciliation performed by pharmacy medication reconciliations motion picture camera lens technician and/or nursing. Patients Allergies have been reviewed. Allergies Allergies Coded Allergies Penicillins (Verified Allergy, Unknown, 11/09/20) Past Hzbrnjt-Bhsxfp-Zpomvy Hx Past Med/Social Hx: Reviewed Nursing Past Med/Soc Hx Patient Social History Marrital Status: single Alcohol Use: Occasionally Uses Alcohol Beverage of Choice: Beer Recreational Drug Use: No Smoking Status: Former Smoker Type Used: Cigarettes Recent Foreign Travel: No Contact w/other who traveled: No Recent Hopitalizations: No Recent Infectious Disease Expo: No Immunizations Up To Date Date of Influenza Vaccine: Aug 09, 2020 Past Medical History Surgeries: Appendectomy Cardiac: Atrial Fibrillation Review of Systems Constitutional: no symptoms reported EENTM: no symptoms reported Respiratory: short of breath Cardiovascular: palpitations Gastrointestinal: abdominal pain (LUQ) Genitourinary: no symptoms reported Musculoskeletal: no symptoms reported Skin: no symptoms reported Psychiatric/Neurological: No Symptoms Reported Physical Exam Physical Exam Vital Signs Vital Signs - First Documented 11/12/20 18:48 Temp 35.9 Pulse 180 Resp 28 B/P (MAP) 157/115 (129) Pulse Ox 98 O2 Delivery Room Air Capillary Refill : Less Than 3 Seconds Height, Weight, BMI Height: '" Weight: lbs. oz. kg; 37.31 BMI Method: General Appearance: No Apparent Distress, Obese HEENT: PERRL/EOMI, Pharynx Normal Neck: Normal Inspection, Supple Respiratory: Lungs Clear, Normal Breath Sounds, No Respiratory Distress Cardiovascular: No Murmur, Irregularly Irregular, Tachycardia Gastrointestinal: Normal Bowel Sounds, Soft; No Distended, No Guarding; Tenderness (left upper quadrant) Extremity: Normal Inspection, Non Tender, No Pedal Edema Neurologic/Psychiatric: Alert, Oriented x3, No Motor/Sensory Deficits, Normal Mood/Affect Skin: Normal Color, Warm/Dry Results Results/Procedures Labs Laboratory Tests 11/12/20 18:56 11/13/20 05:58 Patient resulted labs reviewed. Imaging: Reviewed Imaging Report Assessment/Plan Admission Diagnosis Atrial fibrillation with rapid ventricular response Admission Status: Inpatient Order (span 2 midnights) Reason for Inpatient Admission: AFib requiring IV medications and possible procedure Assessment and Plan AFib with RVR HTN Cardiology consulted, appreciate assistance Started on IV Cardizem Resume home Xarelto Starting Digoxin and Amiodarone Considering cardioversion if needed HLD Begin Lipitor GERD PPI Obesity Clinically significant, no acute management needs DVT prophylaxis: already receiving therapeutic anticoagulation Diagnosis/Problems Diagnosis/Problems (1) Atrial fibrillation with RVR Status: Acute (2) HTN (hypertension) Status: Chronic (3) HLD (hyperlipidemia) Status: Acute (4) GERD (gastroesophageal reflux disease) Status: Acute Qualifiers: Esophagitis presence: esophagitis presence not specified Qualified Codes: K21.9 - Gastro-esophageal reflux disease without esophagitis (5) Obesity Status: Chronic Clinical Quality Measures AMI/AHF: ASA po Prior to arrival: ALEXI Etienne MD Nov 13, 2020 10:39
--- NOTE | 2020-11-13 10:40 | Physician Query Clarification ---
PQ-CHF Specificity Admission Date: Nov 12, 2020 at 20:00 Discharge Date: Dr. Hernandez, The medical record reflects the following clinical scenario: History/Risk Factors: atrial fibrillation, HTN, heart failure Clinical Findings: BNP 864 Treatment: IV Diltiazem, IVP Lasix Question: Can you further specify the acuity &/or type of CHF per the clinical indicators above? Please document a response in the Progress Notes or Discharge Summary. 1. Acuity: Acute, Chronic or Acute on Chronic 2. Type: Systolic, Diastolic or Systolic & Diastolic 3. Unspecified: CHF cannot be further specified regarding type or acuity 4. Other, with explanation of clinical findings 5. Clinically undetermined, no explanation for clinical findings PHYSICIAN RESPONSE Acuity: Acute Type: Systolic Please remember a lack of response to the above will prompt a phone page by CDI/Coding staff. In responding to this query, please exercise your independent professional judgment. The purpose of this communication is to more accurately reflect the complexity of your patients condition. The fact that a question is asked does not imply that any particular answer is desired or expected. Thank you for your timely response to this clarification. Requestors name: Gabe [email or web address] THIS PHYSICIAN QUERY FORM IS A PERMANENT PART OF THE MEDICAL RECORD GABE CRANDALL Nov 13, 2020 10:40 DEMIAN HERNANDEZ MD Nov 13, 2020 17:08
[2020-11-13] MEDS ORDERED: NITR0.4T39 SL (14:11)
[2020-11-13] MEDS ORDERED: METO50TA7 PO (14:11)
[2020-11-13] MEDS ORDERED: RIVA20TA PO (14:11)
--- NOTE | 2020-11-13 14:11 | NUR ---
SPOKE WITH PT TO COMPLETE THE MED REC PT HAS PICTURES OF HIS BOTTLES ON HIS PHONE- HE RECEIVED THEM FROM [facility] IN [place] AND WAS RECENTLY RELEASED. METOPROLOL SUCC 50MG FILLED 10-09-2020 AND XARELTO 20MG FILLED 10-16-2019 AND BOTH WERE FILLED FOR 90 DAY SUPPLIES. HE WAS ALSO GIVEN A BOTTLE OF NITRO BUT DOES NOT HAVE AN IMAGE OF THAT MED OTC MEDS: NONE
--- NOTE | 2020-11-13 14:40 | NUR ---
Initial visit: Engaged in rapport building and active listening as the pt shared he moved from his home state of [place] just a few weeks ago and is scheduled for a job interview. Pt states he moved to begin a fresh start following multiple losses in his family over the past five years. The pt's son remains in [place] and lives with the grandmother there. The pt shared he was raised [employer] and feels he would like to return to a brittney community. This Room Inspector encouraged the pt on his brittney journey by facilitating self-expression concerning the needs and changes he is facing, and reflection about the place of Divine love and acceptance in his life.
[2020-11-13] MEDS ORDERED: DIGOXIN 0.25 MG (LANOXIN) TAB PO NR (15:00)
[2020-11-13] MEDS: RIVAROXABAN 20 MG TABLET (XARELTO) PO SCH (16:56)
[2020-11-13] MEDS: PANTOPRAZOLE 40 MG (PROTONIX) VIAL IV SCH (20:57)
[2020-11-13] MEDS: LORazepam 0.5 MG (ATIVAN) TABLET PO PRN (23:36)
[2020-11-14 03:08] LABS: BASOPHILS # (AUTO) 0.1 10^3/uL (0.0-0.1); BASOPHILS % (AUTO) 0 % (0-10); EOSINOPHILS # (AUTO) 0.5 10^3/uL (0.0-0.3); EOSINOPHILS % (AUTO) 3 % (0-10); HEMATOCRIT 43 % (40-54); HEMOGLOBIN 14.5 g/dL (13.3-17.7); LYMPHOCYTES # (AUTO) 2.3 10^3/uL (1.0-4.0); LYMPHOCYTES % (AUTO) 15 % (12-44); MEAN CORPUSCULAR HEMOGLOBIN 32 pg (25-34); MEAN CORPUSCULAR HGB CONC 34 g/dL (32-36); MEAN CORPUSCULAR VOLUME 94 fL (80-99); MEAN PLATELET VOLUME 11.2 fL (9.0-12.2); MONOCYTES % (AUTO) 7 % (0-12); NEUTROPHILS # (AUTO) 10.8 10^3/uL (1.8-7.8); NEUTROPHILS % (AUTO) 73 % (42-75); PLATELET COUNT 220 10^3/uL (130-400); WHITE BLOOD COUNT 14.8 10^3/uL (4.3-11.0)
--- NOTE | 2020-11-14 03:11 | Pulmonary Progress Note ---
VITALIY BAL MED STUDENT 11/14/20 0311: Subjective Date Seen by a Provider: Nov 14, 2020 Time Seen by a Provider: 03:11 Subjective/Events-last exam Pt states his epigastric pain has improved since yesterday. States he had dsypnea while sleeping overnight. Sepsis Event Evaluation Height, Weight, BMI Height: '" Weight: lbs. oz. kg; 37.31 BMI Method: Exam Exam Vital Signs Date Time Temp Pulse Resp B/P (MAP) Pulse Ox O2 Delivery O2 Flow Rate FiO2 11/14/20 01:58 Nasal Cannula 2.00 11/14/20 00:00 85 14 121/72 (88) 95 Room Air 11/13/20 23:27 98 Room Air 11/13/20 23:00 79 15 120/90 (100) 96 Room Air 11/13/20 22:00 78 17 124/92 (103) 91 Room Air 11/13/20 21:00 Room Air 11/13/20 21:00 96 20 125/92 (103) 97 Room Air 11/13/20 20:00 75 14 139/84 (102) 93 Room Air 11/13/20 19:00 81 18 139/97 (111) 96 Room Air 11/13/20 19:00 100 11/13/20 18:00 71 15 100/90 (93) 98 Room Air 11/13/20 17:00 73 12 95/84 (88) 97 Room Air 11/13/20 16:00 87 13 125/91 (102) 96 Room Air 11/13/20 15:49 36.0 11/13/20 15:00 89 15 115/77 (90) 97 Room Air 11/13/20 14:00 82 13 105/75 (85) 98 Room Air 11/13/20 13:00 81 11 101/72 (82) 97 Room Air 11/13/20 13:00 94 11/13/20 12:00 94 20 134/81 (98) 94 Room Air 11/13/20 11:00 83 18 123/93 (103) 97 Room Air 11/13/20 10:00 87 16 110/94 (99) 93 Room Air 11/13/20 09:00 122 16 123/92 (102) 95 Room Air 11/13/20 09:00 Room Air 11/13/20 08:00 112 14 107/84 (92) 93 Room Air 11/13/20 07:00 113 11/13/20 07:00 102 14 108/88 (95) 93 Room Air 11/13/20 06:00 113 21 105/75 (85) 95 Room Air 11/13/20 05:00 99 13 111/74 (86) 92 Room Air 11/13/20 04:00 112 13 115/91 (99) 95 Room Air I & O 11/14/20 07:00 Intake Total 1500 ml Output Total 4675 ml Balance -3175 ml Height & Weight Height: '" Weight: lbs. oz. kg; 37.31 BMI Method: General Appearance: No Apparent Distress, Obese HEENT: PERRL/EOMI, Pharynx Normal Neck: Normal Inspection, Supple Respiratory: Lungs Clear, Normal Breath Sounds, No Respiratory Distress Cardiovascular: No Murmur, Irregularly Irregular, Tachycardia Capillary Refill: Less Than 3 Seconds Gastrointestinal: tenderness (epigastric) Extremity: Normal Inspection, Non Tender, No Pedal Edema Neurologic/Psychiatric: Alert, Oriented x3, No Motor/Sensory Deficits, Normal Mood/Affect Skin: Normal Color, Warm/Dry Results Lab Laboratory Tests 11/12/20 18:56 11/13/20 05:58 Assessment/Plan Assessment/Plan AFib w/ RVR -Cardiac consulted -Diltiazem 5 mls/hr -Rivaroxaban 20mg -Digoxin 0.25mg -Amiodarone will be considered Epigastric pain -Protonix 40mg -BUN 21 -HgB 15.5 Leukocytosis -WBC 14.8, down from 16.1 yesterday -Ceftriaxone 200mls/hr -Azithromycin 250mg Hyperlipidemia -Patient education/lifestyle modifications -Atorvastatin 40mg Hypertriglyceridemia -Patient education/lifestyle modifications -Atorvastatin 40mg TYE SÁNCHEZ DO 11/14/20 0346: Subjective Time Seen by a Provider: 03:42 Assessment/Plan Assessment/Plan AFib w/ RVR -Cardiac consulted -Diltiazem gtt -Rivaroxaban 20mg -Digoxin 0.25mg -Amiodarone gtt Pneumonia -Ceftriaxone 200mls/hr -Azithromycin 250mg Hyperlipidemia -Patient education/lifestyle modifications -Atorvastatin 40mg Hypertriglyceridemia -Patient education/lifestyle modifications -Atorvastatin 40mg Hx of Gastric ulcers with current epigastric pain -Continue protonix VITALIY BAL STUDENT Nov 14, 2020 03:11 TYE SÁNCHEZ DO Nov 14, 2020 03:46
[2020-11-14 03:24] LABS: CHLORIDE 104 MMOL/L (98-107); POTASSIUM 3.9 MMOL/L (3.6-5.0); SODIUM 137 MMOL/L (135-145)
[2020-11-14 03:25] LABS: CALCIUM 8.9 MG/DL (8.5-10.1)
[2020-11-14 03:26] LABS: GLUCOSE 142 MG/DL (70-105)
[2020-11-14 03:28] LABS: CARBON DIOXIDE 22 MMOL/L (21-32)
[2020-11-14 03:30] LABS: CREATININE SERUM 0.91 MG/DL (0.60-1.30); GFR ESTIMATED > 60; PHOSPHORUS 3.8 MG/DL (2.3-4.7)
[2020-11-14 03:31] LABS: BUN/CREATININE RATIO 19
[2020-11-14 03:32] LABS: MAGNESIUM 2.1 MG/DL (1.6-2.4)
[2020-11-14] MEDS: KCL 20 MEQ TAB (K-DUR) PO SCH (05:23)
[2020-11-14] MEDS: POTASSIUM CL 10MEQ/50ML IVPB 50 ML IV SCH (05:23)
[2020-11-14] MEDS: MAGNESIUM 1 GM/100 ML IVPB 100 ML IV SCH (05:23)
--- NOTE | 2020-11-14 07:34 | Diagnostic Imaging Report ---
INDICATION: Atrial fibrillation. TECHNIQUE: Single view chest 1:02 AM. CORRELATION STUDY: 11/13/2020 FINDINGS: Heart size stable. Vasculature slightly less congested from prior. Lung rueda remain relatively clear without definitive infiltrate. IMPRESSION: 1. Stable heart size. Overall vascular congestion and severity appears slightly improved. Dictated by: Dictated on workstation # [id number]
[2020-11-14] MEDS: AMIODARONE INJECTION 450 MG in D5W IV SOLUTION (EXCEL) 250 ML IV SCH (08:17)
[2020-11-14] MEDS: dilTIAZem DRIP PRE-MIX 125 ML IV SCH (08:18)
[2020-11-14] MEDS: DIGOXIN 0.25 MG (LANOXIN) TAB PO SCH (08:19)
[2020-11-14] MEDS: PANTOPRAZOLE 40 MG (PROTONIX) VIAL IV SCH ×2 (08:19→21:36)
[2020-11-14] MEDS: AZITHROMYCIN 250 MG TAB (ZITHROMAX) PO SCH (08:19)
--- NOTE | 2020-11-14 09:49 | Progress Note - Hospitalist ---
Subjective HPI/CC On Admission Date Seen by Provider: Nov 14, 2020 Time Seen by Provider: 08:55 Carlos Alexander is a 40-year-old male with past medical history of hypertension, atrial fibrillation, who presented with palpitations and shortness of breath. He reports that he has a history of atrial fibrillation. He recently moved here from [facility]. He stopped taking his medications recently for unclear reasons. He says for the past few days he has had a palpitations and a pulsating feeling in his neck. He also reports headaches. He denies any fevers or chills. He denies cough. He reports left upper quadrant abdominal pain. He reports having acid reflux. He does not take any medications for this. He denies any nausea or vomiting. He denies any diarrhea or constipation. Subjective/Events-last exam He is feeling better today. He still feels a little lightheaded when he stands up. He denies any chest pain. He is not short of breath. He did feel short of breath when he was lying flat to sleep last night. He denies any lower extremity swelling. Objective Exam Vital Signs Vital Signs Date Time Temp Pulse Resp B/P (MAP) Pulse Ox O2 Delivery O2 Flow Rate FiO2 11/14/20 09:00 65 18 95 Nasal Cannula 2.00 11/14/20 07:28 37.3 Capillary Refill : Less Than 3 Seconds General Appearance: No Apparent Distress, Obese Respiratory: Lungs Clear, Normal Breath Sounds, No Respiratory Distress Cardiovascular: Regular Rate, Rhythm, No Edema, No Murmur Gastrointestinal: Normal Bowel Sounds, Non Tender, Soft Extremity: Normal Inspection, Non Tender, No Pedal Edema Neurologic/Psychiatric: Alert, Oriented x3, No Motor/Sensory Deficits, Normal Mood/Affect Skin: Normal Color, Warm/Dry Results/Procedures Lab Laboratory Tests 11/14/20 02:58 Patient resulted labs reviewed. Imaging: Reviewed Imaging Report Assessment/Plan Assessment and Plan Assess & Plan/Chief Complaint AFib with RVR Heart failure with reduced ejection fraction HTN Cardiology consulted, appreciate assistance Continue IV Cardizem and Amiodarone Continue Digoxin Continue Xarelto Considering cardioversion if needed Echo revealed reduced EF 30-35% HLD Lipitor GERD PPI Obesity Clinically significant, no acute management needs DVT prophylaxis: already receiving therapeutic anticoagulation Diagnosis/Problems Diagnosis/Problems (1) Atrial fibrillation with RVR Status: Acute (2) HTN (hypertension) Status: Chronic (3) HLD (hyperlipidemia) Status: Acute (4) GERD (gastroesophageal reflux disease) Status: Acute Qualifiers: Esophagitis presence: esophagitis presence not specified Qualified Codes: K21.9 - Gastro-esophageal reflux disease without esophagitis (5) Obesity Status: Chronic (6) HFrEF (heart failure with reduced ejection fraction) Status: Acute Clinical Quality Measures AMI/AHF: ASA po Prior to arrival: ALEXI Etienne MD Nov 14, 2020 09:48
[2020-11-14] MEDS ORDERED: AMIODARONE 200 MG (CORDARONE) TAB PO SCH (15:45)
[2020-11-14] MEDS ORDERED: meTOproloL SUCCINATE 50 MG (TOPROL XL) TAB PO SCH (15:45)
[2020-11-14] MEDS ORDERED: dilTIAZem120 MG (CARDIZEM CD) CAP PO SCH (15:45)
--- NOTE | 2020-11-14 16:09 | Cardiology Progress Note ---
Cardiology SOAP Progress Note Subjective: no cardiac complaints. Objective: I&O/Vital Signs 11/15/20 11/15/20 11/15/20 11/15/20 07:00 08:19 09:00 11:40 Temp 36.5 36.2 Pulse 67 66 73 Resp 18 17 B/P (MAP) 122/78 (93) 152/115 (127) Pulse Ox 97 96 O2 Delivery Room Air Room Air Room Air 11/15/20 13:00 Pulse 63 11/15/20 00:00 Intake Total 750 ml Output Total 250 ml Balance 500 ml Respiratory: chest is bilaterally symmetric, lungs clear to auscultation Cardiovascular: irregularly irregular, S1 and S2 Gastrointestional: soft, audible bowel sounds Extremities: no lower extremity edema bilateral Neurologic/Psychiatric: no motor/sensory deficits, alert, normal mood/affect, oriented x 3 Skin: normal color Results/Procedures: Labs Laboratory Tests 11/15/20 02:55: White Blood Count 15.0H, Red Blood Count 4.41, Hemoglobin 14.0, Hematocrit 42, Mean Corpuscular Volume 94, Mean Corpuscular Hemoglobin 32, Mean Corpuscular Hemoglobin Concent 34, Red Cell Distribution Width 13.4, Platelet Count 232, Yojana n Platelet Volume 11.2, Immature Granulocyte % (Auto) 1, Neutrophils (%) (Auto) 75, Lymphocytes (%) (Auto) 15, Monocytes (%) (Auto) 7, Eosinophils (%) (Auto) 3, Basophils (%) (Auto) 0, Neutrophils # (Auto) 11.2H, Lymphocytes # (Auto) 2.2, Monocytes # (Auto) 1.0, Eosinophils # (Auto) 0.4H, Basophils # (Auto) 0.0, Immature Granulocyte # (Auto) 0.1, Sodium Level 137, Potassium Level 4.3, Chloride Level 106, Carbon Dioxide Level 21, Anion Gap 10, Blood Urea Nitrogen 19H, Creatinine 0.89, Estimat Glomerular Filtration Rate > 60, BUN/Creatinine Ratio 21, Glucose Level 108H, Calcium Level 8.9, Phosphorus Level 3.8, Magnesium Level 2.2 Microbiology 11/12/20 MRSA Screen - Final, Complete A/P: Assessment/Dx: persistent atrial fibrillation dilated cardiomyopathy Tachycardia Noncompliant with medication Shortness of breath Plan: atrial fibrillation with rapid ventricular response, recurrent. change amiodarone to by mouth. Change Cardizem to metoprolol due to low EF. Heart rate is better controlled. Continue oral anticoagulation. Dilated cardiomyopathy with mild acute systolic congestive heart failure: EF 30- 35 percent. Primary prevention for sudden cardiac with lifevest is recommended. Discussed at length about compliance with lifevest for primary prevention for sudden cardiac . Palpitations secondary to atrial fibrillation. Hypertension, on metoprolol Hyperlipidemia, monitor lipids Leukocytosis. Maintained empirically on antibiotics History of gastroesophageal reflux disease Obesity, BMI 37, discussed weight loss Thank you for your consultation. Please call me if you have any questions. Rambo Chaudhry MD, FACP, FACC, FSCAI, FHRS, CCDS Interventional Cardiology Cardiac Electrophysiology Vascular Medicine and Endovascular Interventions Clinical Quality Measures AMI/AHF: ASA po Prior to arrival: Sebastian Valerio MD Nov 14, 2020 16:09
[2020-11-14] MEDS: RIVAROXABAN 20 MG TABLET (XARELTO) PO SCH (17:42)
[2020-11-14] MEDS: meTOproloL SUCCINATE 50 MG (TOPROL XL) TAB PO SCH (21:22)
[2020-11-14] MEDS: AMIODARONE 200 MG (CORDARONE) TAB PO SCH (21:22)
[2020-11-14] MEDS: LORazepam 0.5 MG (ATIVAN) TABLET PO PRN (21:36)
[2020-11-15 03:23] LABS: BASOPHILS % (AUTO) 0 % (0-10); EOSINOPHILS # (AUTO) 0.4 10^3/uL (0.0-0.3); EOSINOPHILS % (AUTO) 3 % (0-10); HEMATOCRIT 42 % (40-54); LYMPHOCYTES # (AUTO) 2.2 10^3/uL (1.0-4.0); LYMPHOCYTES % (AUTO) 15 % (12-44); MEAN CORPUSCULAR HEMOGLOBIN 32 pg (25-34); MEAN CORPUSCULAR HGB CONC 34 g/dL (32-36); MEAN CORPUSCULAR VOLUME 94 fL (80-99); MEAN PLATELET VOLUME 11.2 fL (9.0-12.2); MONOCYTES % (AUTO) 7 % (0-12); NEUTROPHILS # (AUTO) 11.2 10^3/uL (1.8-7.8); NEUTROPHILS % (AUTO) 75 % (42-75); PLATELET COUNT 232 10^3/uL (130-400)
[2020-11-15 03:39] LABS: CHLORIDE 106 MMOL/L (98-107); POTASSIUM 4.3 MMOL/L (3.6-5.0); SODIUM 137 MMOL/L (135-145)
[2020-11-15 03:40] LABS: CALCIUM 8.9 MG/DL (8.5-10.1); GLUCOSE 108 MG/DL (70-105)
[2020-11-15] MEDS: LORazepam 0.5 MG (ATIVAN) TABLET PO PRN ×2 (03:41→21:13)
[2020-11-15 03:42] LABS: CARBON DIOXIDE 21 MMOL/L (21-32)
[2020-11-15 03:44] LABS: CREATININE SERUM 0.89 MG/DL (0.60-1.30); GFR ESTIMATED > 60; PHOSPHORUS 3.8 MG/DL (2.3-4.7)
[2020-11-15 03:45] LABS: BUN/CREATININE RATIO 21
[2020-11-15 03:46] LABS: MAGNESIUM 2.2 MG/DL (1.6-2.4)
[2020-11-15] MEDS: MAGNESIUM 1 GM/100 ML IVPB 100 ML IV SCH (05:12)
[2020-11-15] MEDS: KCL 20 MEQ TAB (K-DUR) PO SCH (05:12)
[2020-11-15] MEDS: POTASSIUM CL 10MEQ/50ML IVPB 50 ML IV SCH (05:12)
[2020-11-15] MEDS: AZITHROMYCIN 250 MG TAB (ZITHROMAX) PO SCH (08:44)
[2020-11-15] MEDS: PANTOPRAZOLE 40 MG (PROTONIX) VIAL IV SCH ×2 (08:44→20:18)
[2020-11-15] MEDS: DIGOXIN 0.25 MG (LANOXIN) TAB PO SCH (08:44)
[2020-11-15] MEDS: meTOproloL SUCCINATE 50 MG (TOPROL XL) TAB PO SCH ×2 (08:45→20:17)
[2020-11-15] MEDS: AMIODARONE 200 MG (CORDARONE) TAB PO SCH ×2 (08:45→20:17)
[2020-11-15] MEDS ORDERED: dilTIAZem120 MG (CARDIZEM CD) CAP PO SCH (09:00)
--- NOTE | 2020-11-15 09:46 | Diagnostic Imaging Report ---
INDICATION: Atrial fibrillation, RVR COMPARISON STUDY: Chest from 11/14/2020. FINDINGS: Frontal view of the chest demonstrates heart size to be normal. This appears smaller than previously and is probably due to technique. Lungs are clear. The vascularity is normal. IMPRESSION: Normal portable chest. The heart size appears a little smaller which may be due to the differences in technique. Dictated by: Dictated on workstation # [id number]
--- NOTE | 2020-11-15 10:38 | Progress Note - Hospitalist ---
Subjective HPI/CC On Admission Date Seen by Provider: Nov 15, 2020 Time Seen by Provider: 09:40 Carlos Alexander is a 40-year-old male with past medical history of hypertension, atrial fibrillation, who presented with palpitations and shortness of breath. He reports that he has a history of atrial fibrillation. He recently moved here from [facility]. He stopped taking his medications recently for unclear reasons. He says for the past few days he has had a palpitations and a pulsating feeling in his neck. He also reports headaches. He denies any fevers or chills. He denies cough. He reports left upper quadrant abdominal pain. He reports having acid reflux. He does not take any medications for this. He denies any nausea or vomiting. He denies any diarrhea or constipation. Subjective/Events-last exam He has no complaints. He denies chest pain. He denies shortness of breath. He denies palpitations. He denies lightheadedness and dizziness. Objective Exam Vital Signs Vital Signs Date Time Temp Pulse Resp B/P (MAP) Pulse Ox O2 Delivery O2 Flow Rate FiO2 11/15/20 09:00 Room Air 11/15/20 08:19 36.5 66 18 122/78 (93) 97 11/15/20 03:40 2.00 Capillary Refill : Less Than 3 Seconds General Appearance: No Apparent Distress, Obese Respiratory: Lungs Clear, Normal Breath Sounds, No Respiratory Distress Cardiovascular: No Murmur, Irregularly Irregular Gastrointestinal: Normal Bowel Sounds, Non Tender, Soft Extremity: Normal Inspection, Non Tender, No Pedal Edema Neurologic/Psychiatric: Alert, Oriented x3, No Motor/Sensory Deficits, Normal Mood/Affect Skin: Normal Color, Warm/Dry Results/Procedures Lab Laboratory Tests 11/15/20 02:55 Patient resulted labs reviewed. Imaging: Reviewed Imaging Report Assessment/Plan Assessment and Plan Assess & Plan/Chief Complaint AFib with RVR Heart failure with reduced ejection fraction HTN Cardiology consulted, appreciate assistance Continue Amiodarone, Digoxin, and Metoprolol Continue Xarelto Echo revealed reduced EF 30-35% Begin Lisinopril HLD Lipitor GERD PPI Obesity Clinically significant, no acute management needs DVT prophylaxis: already receiving therapeutic anticoagulation Diagnosis/Problems Diagnosis/Problems (1) Atrial fibrillation with RVR Status: Acute (2) HTN (hypertension) Status: Chronic (3) HLD (hyperlipidemia) Status: Acute (4) GERD (gastroesophageal reflux disease) Status: Acute Qualifiers: Esophagitis presence: esophagitis presence not specified Qualified Codes: K21.9 - Gastro-esophageal reflux disease without esophagitis (5) Obesity Status: Chronic (6) HFrEF (heart failure with reduced ejection fraction) Status: Acute Clinical Quality Measures AMI/AHF: ASA po Prior to arrival: ALEXI Etienne MD Nov 15, 2020 10:38
--- NOTE | 2020-11-15 16:22 | Cardiology Progress Note ---
Cardiology SOAP Progress Note Subjective: no cardiac complaints. Objective: I&O/Vital Signs 11/15/20 11/15/20 11/15/20 11/15/20 07:00 08:19 09:00 11:40 Temp 36.5 36.2 Pulse 67 66 73 Resp 18 17 B/P (MAP) 122/78 (93) 152/115 (127) Pulse Ox 97 96 O2 Delivery Room Air Room Air Room Air 11/15/20 13:00 Pulse 63 11/15/20 00:00 Intake Total 750 ml Output Total 250 ml Balance 500 ml Respiratory: chest is bilaterally symmetric, lungs clear to auscultation Cardiovascular: irregularly irregular, S1 and S2 Gastrointestional: soft, audible bowel sounds Extremities: no lower extremity edema bilateral Neurologic/Psychiatric: no motor/sensory deficits, alert, normal mood/affect, oriented x 3 Skin: normal color Results/Procedures: Labs Laboratory Tests 11/15/20 02:55: White Blood Count 15.0H, Red Blood Count 4.41, Hemoglobin 14.0, Hematocrit 42, Mean Corpuscular Volume 94, Mean Corpuscular Hemoglobin 32, Mean Corpuscular Hemoglobin Concent 34, Red Cell Distribution Width 13.4, Platelet Count 232, Yojana n Platelet Volume 11.2, Immature Granulocyte % (Auto) 1, Neutrophils (%) (Auto) 75, Lymphocytes (%) (Auto) 15, Monocytes (%) (Auto) 7, Eosinophils (%) (Auto) 3, Basophils (%) (Auto) 0, Neutrophils # (Auto) 11.2H, Lymphocytes # (Auto) 2.2, Monocytes # (Auto) 1.0, Eosinophils # (Auto) 0.4H, Basophils # (Auto) 0.0, Immature Granulocyte # (Auto) 0.1, Sodium Level 137, Potassium Level 4.3, Chloride Level 106, Carbon Dioxide Level 21, Anion Gap 10, Blood Urea Nitrogen 19H, Creatinine 0.89, Estimat Glomerular Filtration Rate > 60, BUN/Creatinine Ratio 21, Glucose Level 108H, Calcium Level 8.9, Phosphorus Level 3.8, Magnesium Level 2.2 Microbiology 11/12/20 MRSA Screen - Final, Complete A/P: Assessment/Dx: persistent atrial fibrillation dilated cardiomyopathy Tachycardia Noncompliant with medication Shortness of breath Plan: atrial fibrillation with controlled ventricular response: on by mouth amiodarone, metoprolol. Heart rate is better controlled. Continue oral anticoagulation. Dilated cardiomyopathy with mild acute systolic congestive heart failure: EF 30- 35 percent. Primary prevention for sudden cardiac with lifevest is recommended. Discussed at length about compliance with lifevest for primary prevention for sudden cardiac . Palpitations secondary to atrial fibrillation. Hypertension, on metoprolol Hyperlipidemia, monitor lipids Leukocytosis. Maintained empirically on antibiotics History of gastroesophageal reflux disease Obesity, BMI 37, discussed weight loss Thank you for your consultation. Please call me if you have any questions. Rambo Chaudhry MD, FACP, FACC, FSCAI, FHRS, CCDS Interventional Cardiology Cardiac Electrophysiology Vascular Medicine and Endovascular Interventions Clinical Quality Measures AMI/AHF: ASA po Prior to arrival: Sebastian Valerio MD Nov 15, 2020 16:22
[2020-11-15] MEDS: RIVAROXABAN 20 MG TABLET (XARELTO) PO SCH (16:44)
[2020-11-16 02:41] LABS: BASOPHILS % (AUTO) 0 % (0-10); EOSINOPHILS # (AUTO) 0.4 10^3/uL (0.0-0.3); EOSINOPHILS % (AUTO) 3 % (0-10); HEMATOCRIT 41 % (40-54); HEMOGLOBIN 13.9 g/dL (13.3-17.7); LYMPHOCYTES # (AUTO) 2.2 10^3/uL (1.0-4.0); LYMPHOCYTES % (AUTO) 18 % (12-44); MEAN CORPUSCULAR HEMOGLOBIN 32 pg (25-34); MEAN CORPUSCULAR HGB CONC 34 g/dL (32-36); MEAN CORPUSCULAR VOLUME 94 fL (80-99); MEAN PLATELET VOLUME 11.3 fL (9.0-12.2); MONOCYTES # (AUTO) 1.1 10^3/uL (0.0-1.0); MONOCYTES % (AUTO) 9 % (0-12); NEUTROPHILS # (AUTO) 8.9 10^3/uL (1.8-7.8); NEUTROPHILS % (AUTO) 69 % (42-75); PLATELET COUNT 229 10^3/uL (130-400); WHITE BLOOD COUNT 12.7 10^3/uL (4.3-11.0)
[2020-11-16 02:57] LABS: CHLORIDE 107 MMOL/L (98-107); POTASSIUM 4.1 MMOL/L (3.6-5.0); SODIUM 137 MMOL/L (135-145)
[2020-11-16 02:59] LABS: CALCIUM 8.9 MG/DL (8.5-10.1); GLUCOSE 109 MG/DL (70-105)
[2020-11-16 03:01] LABS: CARBON DIOXIDE 21 MMOL/L (21-32)
[2020-11-16 03:03] LABS: CREATININE SERUM 0.94 MG/DL (0.60-1.30); GFR ESTIMATED > 60; PHOSPHORUS 3.3 MG/DL (2.3-4.7)
[2020-11-16 03:04] LABS: BUN/CREATININE RATIO 22
[2020-11-16] MEDS: MAGNESIUM 1 GM/100 ML IVPB 100 ML IV SCH (03:57)
[2020-11-16] MEDS: POTASSIUM CL 10MEQ/50ML IVPB 50 ML IV SCH (03:57)
[2020-11-16] MEDS: KCL 20 MEQ TAB (K-DUR) PO SCH (03:58)
[2020-11-16] MEDS: DIGOXIN 0.25 MG (LANOXIN) TAB PO SCH (08:47)
[2020-11-16] MEDS: AMIODARONE 200 MG (CORDARONE) TAB PO SCH ×2 (08:47→20:04)
[2020-11-16] MEDS: PANTOPRAZOLE 40 MG (PROTONIX) VIAL IV SCH ×2 (08:47→20:03)
[2020-11-16] MEDS: lisINopril 10 MG (PRINIVIL) TABLET PO SCH (08:47)
[2020-11-16] MEDS: AZITHROMYCIN 250 MG TAB (ZITHROMAX) PO SCH (08:47)
[2020-11-16] MEDS: meTOproloL SUCCINATE 50 MG (TOPROL XL) TAB PO SCH ×2 (08:47→20:05)
[2020-11-16] MEDS ORDERED: lisINopril 5 MG (PRINIVIL) TABLET PO SCH (09:00)
--- NOTE | 2020-11-16 10:31 | Progress Note - Hospitalist ---
Subjective HPI/CC On Admission Date Seen by Provider: Nov 16, 2020 Time Seen by Provider: 09:20 Carlos Alexander is a 40-year-old male with past medical history of hypertension, atrial fibrillation, who presented with palpitations and shortness of breath. He reports that he has a history of atrial fibrillation. He recently moved here from [facility]. He stopped taking his medications recently for unclear reasons. He says for the past few days he has had a palpitations and a pulsating feeling in his neck. He also reports headaches. He denies any fevers or chills. He denies cough. He reports left upper quadrant abdominal pain. He reports having acid reflux. He does not take any medications for this. He denies any nausea or vomiting. He denies any diarrhea or constipation. Subjective/Events-last exam He is feeling well today. He has no complaints or concerns. He denies chest pain. He denies palpitations. He denies shortness of breath. Objective Exam Vital Signs Vital Signs Date Time Temp Pulse Resp B/P (MAP) Pulse Ox O2 Delivery O2 Flow Rate FiO2 11/16/20 08:50 138/85 (102) 11/16/20 08:01 35.9 69 18 95 Room Air 11/15/20 03:40 2.00 Capillary Refill : Less Than 3 Seconds General Appearance: No Apparent Distress, Obese Respiratory: Lungs Clear, Normal Breath Sounds, No Respiratory Distress Cardiovascular: No Murmur, Irregularly Irregular Gastrointestinal: Normal Bowel Sounds, Non Tender, Soft Extremity: Normal Inspection, Non Tender, No Pedal Edema Neurologic/Psychiatric: Alert, Oriented x3, No Motor/Sensory Deficits, Normal Mood/Affect Skin: Normal Color, Warm/Dry Results/Procedures Lab Laboratory Tests 11/16/20 02:20 Patient resulted labs reviewed. Imaging: Reviewed Imaging Report Assessment/Plan Assessment and Plan Assess & Plan/Chief Complaint AFib with RVR Heart failure with reduced ejection fraction HTN Cardiology consulted, appreciate assistance Continue Amiodarone, Digoxin, and Metoprolol Continue Xarelto Echo revealed reduced EF 30-35% Continue Lisinopril Awaiting LifeVest HLD Lipitor GERD PPI Obesity Clinically significant, no acute management needs DVT prophylaxis: already receiving therapeutic anticoagulation Diagnosis/Problems Diagnosis/Problems (1) Atrial fibrillation with RVR Status: Acute (2) HTN (hypertension) Status: Chronic (3) HLD (hyperlipidemia) Status: Acute (4) GERD (gastroesophageal reflux disease) Status: Acute Qualifiers: Esophagitis presence: esophagitis presence not specified Qualified Codes: K21.9 - Gastro-esophageal reflux disease without esophagitis (5) Obesity Status: Chronic (6) HFrEF (heart failure with reduced ejection fraction) Status: Acute Clinical Quality Measures AMI/AHF: ASA po Prior to arrival: ALEXI Etienne MD Nov 16, 2020 10:31
--- NOTE | 2020-11-16 12:53 | NUR ---
THIS NURSE CALLED AND LEFT A MESSAGE WITH CORINNE DE LEON WITH [facility].
--- NOTE | 2020-11-16 14:43 | NUR ---
THIS NURSE IS STILL UNABLE TO REACH CORINNE WITH [facility]. 24 HOUR NUMBER CALLED . THIS NURSE SPOKE WITH PAL PENDING [facility] AND THE STATUS ON THE [facility]. PAL SAID HE WOULD SEND A REQUEST AND A RN TRAUMA SHOULD CALL BACK WITH A STATUS UPDATE. WILL CONTINUE TO MONITOR.
--- NOTE | 2020-11-16 14:54 | Cardiology Progress Note ---
Cardiology SOAP Progress Note Subjective: No cardiac complaints. Objective: I&O/Vital Signs 11/16/20 11/16/20 11/16/20 11/16/20 04:14 07:00 08:01 08:30 Temp 35.9 35.9 Pulse 65 56 69 Resp 16 18 B/P (MAP) 133/76 (95) 151/119 (130) Pulse Ox 98 95 O2 Delivery Room Air Room Air Room Air 11/16/20 11/16/20 11/16/20 08:50 11:25 13:00 Temp 36.4 Pulse 62 66 Resp 18 B/P (MAP) 138/85 (102) 118/77 (91) Pulse Ox 93 O2 Delivery Room Air 11/16/20 00:00 Intake Total 950 ml Balance 950 ml Respiratory: chest is bilaterally symmetric, lungs clear to auscultation Cardiovascular: irregularly irregular, S1 and S2 Gastrointestional: soft, audible bowel sounds Extremities: no lower extremity edema bilateral Neurologic/Psychiatric: no motor/sensory deficits, alert, normal mood/affect, oriented x 3 Skin: normal color Results/Procedures: Labs Laboratory Tests 11/16/20 02:20: White Blood Count 12.7H, Red Blood Count 4.38, Hemoglobin 13.9, Hematocrit 41, Mean Corpuscular Volume 94, Mean Corpuscular Hemoglobin 32, Mean Corpuscular Hemoglobin Concent 34, Red Cell Distribution Width 13.7, Platelet Count 229, Mean Platelet Volume 11.3, Immature Granulocyte % (Auto) 1, Neutrophils (%) (Auto) 69, Lymphocytes (%) (Auto) 18, Monocytes (%) (Auto) 9, Eosinophils (%) (Auto) 3, Basophils (%) (Auto) 0, Neutrophils # (Auto) 8.9H, Lymphocytes # (Auto) 2.2, Monocytes # (Auto) 1.1H, Eosinophils # (Auto) 0.4H, Basophils # (Auto) 0.0, Immature Granulocyte # (Auto) 0.1, Sodium Level 137, Potassium Level 4.1, Chloride Level 107, Carbon Dioxide Level 21, Anion Gap 9, Blood Urea Nitrogen 21H, Creatinine 0.94, Estimat Glomerular Filtration Rate > 60, BUN/Creatinine Ratio 22, Glucose Level 109H, Calcium Level 8.9, Phosphorus Level 3.3, Magnesium Level 2.0 Microbiology 11/12/20 MRSA Screen - Final, Complete A/P: Assessment/Dx: persistent atrial fibrillation dilated cardiomyopathy Tachycardia Noncompliant with medication Shortness of breath Plan: atrial fibrillation with controlled ventricular response: on by mouth amiodarone, metoprolol. Heart rate is better controlled. Continue oral anticoagulation. Dilated cardiomyopathy with mild acute systolic congestive heart failure: EF 30- 35 percent. Primary prevention for sudden cardiac with lifevest is recommended. Discussed at length about compliance with lifevest for primary pr evention for sudden cardiac . Still awaiting approval of LifeVest. Palpitations secondary to atrial fibrillation. Hypertension, on metoprolol Hyperlipidemia, monitor lipids Leukocytosis. Maintained empirically on antibiotics History of gastroesophageal reflux disease Obesity, BMI 37, discussed weight loss Thank you for your consultation. Please call me if you have any questions. Rambo Chaudhry MD, FACP, FACC, FSCAI, FHRS, CCDS Interventional Cardiology Cardiac Electrophysiology Vascular Medicine and Endovascular Interventions Clinical Quality Measures AMI/AHF: ASA po Prior to arrival: Sebastian Valerio MD Nov 16, 2020 14:54
--- NOTE | 2020-11-16 17:18 | NUR ---
THIS NURSE SPOKE WITH ANKIT WITH [facility]. ANKIT NOTIFIED THIS NURSE THEY ARE WAITING ON PATIENT ASSISTANCE PROGRAM TO FINISH UP PAPER WORK AND THEY ARE NOT IN OFFICE ON THE WEEKEND. ANKIT WILL REACH OUT TO THEM FIRST THING IN THE MORNING. ANKIT'S NUMBER IS [phone] IF ANY MORE QUESTIONS ARISE. THIS NURSE UPDATED THE PT.
[2020-11-16] MEDS: RIVAROXABAN 20 MG TABLET (XARELTO) PO SCH (18:05)
[2020-11-17 03:51] LABS: CHLORIDE 105 MMOL/L (98-107); POTASSIUM 4.3 MMOL/L (3.6-5.0); SODIUM 137 MMOL/L (135-145)
[2020-11-17 03:52] LABS: CALCIUM 9.1 MG/DL (8.5-10.1); GLUCOSE 115 MG/DL (70-105)
[2020-11-17 03:54] LABS: CARBON DIOXIDE 22 MMOL/L (21-32)
[2020-11-17] MEDS: POTASSIUM CL 10MEQ/50ML IVPB 50 ML IV SCH (03:55)
[2020-11-17 03:56] LABS: CREATININE SERUM 1.05 MG/DL (0.60-1.30); GFR ESTIMATED > 60
[2020-11-17] MEDS: KCL 20 MEQ TAB (K-DUR) PO SCH (03:56)
[2020-11-17 03:57] LABS: BUN/CREATININE RATIO 21
[2020-11-17 03:59] LABS: MAGNESIUM 2.1 MG/DL (1.6-2.4)
[2020-11-17] MEDS: MAGNESIUM 1 GM/100 ML IVPB 100 ML IV SCH (06:01)
[2020-11-17] MEDS ORDERED: LISI10TA2 PO (08:09)
[2020-11-17] MEDS ORDERED: DIGO250T15 PO (08:09)
[2020-11-17] MEDS ORDERED: AMIO200T6 PO (08:09)
[2020-11-17] MEDS ORDERED: ATOR40TA PO (08:09)
[2020-11-17] MEDS ORDERED: RIVA20TA PO (08:09)
[2020-11-17] MEDS ORDERED: METO50TA7 PO (08:09)
--- NOTE | 2020-11-17 08:11 | Discharge Inst-Simple/Standard ---
Discharge Inst-Standard Discharge Medications New, Converted or Re-Newed RX: Transmitted to Pharmacy Patient Instructions/Follow Up Plan of Care/Instructions/FU: Please continue to take your medications as written. Please follow up with Cardiology in the next week or two and with [facility] as scheduled. Activity as Tolerated: Yes Discharge Diet: Cardiac Diet Return to The Hospital For: Chest pain, shortness of breath, palpitations, if you [facility] discharges, if you feel you are getting worse. STEVAN JOHNSON MD Nov 17, 2020 08:11
--- NOTE | 2020-11-17 08:14 | Discharge Summary ---
Diagnosis/Chief Complaint Date of Admission Nov 12, 2020 at 20:00 Date of Discharge Discharge Date: Nov 17, 2020 Admission Diagnosis Atrial fibrillation with rapid ventricular response Primary Care No,Local Physician Discharge Diagnosis (1) Atrial fibrillation with RVR Status: Acute (2) HTN (hypertension) Status: Chronic (3) HLD (hyperlipidemia) Status: Acute (4) GERD (gastroesophageal reflux disease) Status: Acute (5) Obesity Status: Chronic (6) HFrEF (heart failure with reduced ejection fraction) Status: Acute Discharge Summary Procedures/Consulations Cardiology - Dr Chaudhry Discharge Physical Exam Allergies: Coded Allergies: Penicillins (Verified Allergy, Unknown, 11/09/20) Vitals & I&Os Vital Signs Date Time Temp Pulse Resp B/P (MAP) Pulse Ox O2 Delivery O2 Flow Rate FiO2 11/17/20 04:00 35.4 67 20 106/68 (81) 95 Room Air 11/15/20 03:40 2.00 General Appearance: No Apparent Distress, Obese Respiratory: Lungs Clear, No Accessory Muscle Use, No Respiratory Distress Cardiovascular: No Murmur, Irregularly Irregular (rate controlled) Neurologic/Psychiatric: Alert, Oriented x3 Hospital Course Pt was admitted due to atrial fibrillation with rapid ventricular rate. He had recently moved to [facility] and had not been taking his medications since moving here. He was started on his home medications and amiodarone with improvement in rate control. Cardiology was consulted. Echo was done and revealed an EF of 30% and Life Vest was ordered. He was discharged home in stable condition to follow up with Cardiology and [facility]. Labs (last 24 hrs) Laboratory Tests 11/17/20 03:06: Sodium Level 137, Potassium Level 4.3, Chloride Level 105, Carbon Dioxide Level 22, Anion Gap 10, Blood Urea Nitrogen 22H, Creatinine 1.05, Estimat Glomerular Filtration Rate > 60, BUN/Creatinine Ratio 21, Glucose Level 115H, Calcium Level 9.1, Magnesium Level 2.1 Microbiology 11/12/20 MRSA Screen - Final, Complete Patient resulted labs reviewed. Pending Labs Laboratory Tests 11/17/20 03:06: Sodium Level 137, Potassium Level 4.3, Chloride Level 105, Carbon Dioxide Level 22, Anion Gap 10, Blood Urea Nitrogen 22, Creatinine 1.05, Estimat Glomerular Filtration Rate > 60, BUN/Creatinine Ratio 21, Glucose Level 115, Calcium Level 9.1, Magnesium Level 2.1 Imaging: Reviewed Imaging Report Discussion & Recommendations Discharge Planning: >30 minutes discharge planning Discharge Home Medications: Active Scripts Active Lisinopril 10 Mg Tablet 10 Mg PO DAILY@0900 Lipitor (Atorvastatin Calcium) 40 Mg Tablet 40 Mg PO HS Digox (Digoxin) 250 Mcg Tablet 0.25 Mg PO DAILY Amiodarone HCl 200 Mg Tablet 200 Mg PO BID Xarelto (Rivaroxaban) 20 Mg Tablet 20 Mg PO HS Metoprolol Succinate 50 Mg Tab.er.24h 50 Mg PO HS Reported Nitroglycerin 0.4 Mg Tab.subl 0.4 Mg SL UD PRN Instructions to patient/family Please see electronic discharge instructions given to patient. Clinical Quality Measures AMI/AHF: ASA po Prior to arrival: No Problem Qualifiers (1) GERD (gastroesophageal reflux disease): Esophagitis presence: esophagitis presence not specified Qualified Codes: K21.9 - Gastro-esophageal reflux disease without esophagitis STEVAN JOHNSON MD Nov 17, 2020 08:14
[2020-11-17] MEDS: AMIODARONE 200 MG (CORDARONE) TAB PO SCH (09:22)
[2020-11-17] MEDS: DIGOXIN 0.25 MG (LANOXIN) TAB PO SCH (09:22)
[2020-11-17] MEDS: PANTOPRAZOLE 40 MG (PROTONIX) VIAL IV SCH (09:22)
[2020-11-17] MEDS: lisINopril 10 MG (PRINIVIL) TABLET PO SCH (09:23)
[2020-11-17] MEDS: AZITHROMYCIN 250 MG TAB (ZITHROMAX) PO SCH (09:23)
[2020-11-17] MEDS: meTOproloL SUCCINATE 50 MG (TOPROL XL) TAB PO SCH (09:23)
--- NOTE | 2020-11-17 09:46 | Progress Note - Cardiology ---
Cardiology SOAP Progress Note Objective: I&O/Vital Signs 11/16/20 11/17/20 11/17/20 11/17/20 23:59 01:00 04:00 06:38 Temp 35.7 35.4 Pulse 63 62 67 48 Resp 18 20 B/P (MAP) 96/51 (66) 106/68 (81) Pulse Ox 95 95 O2 Delivery Room Air Room Air 11/17/20 08:16 Temp 35.6 11/17/20 00:00 Intake Total 1050 ml Balance 1050 ml Respiratory: chest is bilaterally symmetric, lungs clear to auscultation Cardiovascular: irregularly irregular, S1 and S2 Gastrointestional: soft, audible bowel sounds Extremities: no lower extremity edema bilateral Neurologic/Psychiatric: no motor/sensory deficits, alert, normal mood/affect, oriented x 3 Skin: normal color Results/Procedures: Labs Laboratory Tests 11/17/20 03:06: Sodium Level 137, Potassium Level 4.3, Chloride Level 105, Carbon Dioxide Level 22, Anion Gap 10, Blood Urea Nitrogen 22H, Creatinine 1.05, Estimat Glomerular Filtration Rate > 60, BUN/Creatinine Ratio 21, Glucose Level 115H, Calcium Level 9.1, Magnesium Level 2.1 Microbiology 11/12/20 MRSA Screen - Final, Complete A/P: Assessment: Atrial fibrillation with controlled ventricular response: on by mouth amiodarone, metoprolol OAC with Xarelto Dilated cardiomyopathy with mild acute systolic congestive heart failure: EF 30- 35 percent. Primary prevention for sudden cardiac with lifevest is recommended. Discussed at length about compliance with lifevest for primary prevention for sudden cardiac . Still awaiting approval of LifeVest. Palpitations secondary to atrial fibrillation. Hypertension, on metoprolol Hyperlipidemia, monitor lipids Leukocytosis - management per medical services History of gastroesophageal reflux disease Obesity, BMI 37, discussed weight loss Clinical Quality Measures AMI/AHF: ASA po Prior to arrival: ANN Correa Nov 17, 2020 09:46
--- NOTE | 2020-11-17 10:12 | Progress Note - Cardiology ---
Cardiology SOAP Progress Note Objective: I&O/Vital Signs 11/16/20 11/17/20 11/17/20 11/17/20 23:59 01:00 04:00 06:38 Temp 35.7 35.4 Pulse 63 62 67 48 Resp 18 20 B/P (MAP) 96/51 (66) 106/68 (81) Pulse Ox 95 95 O2 Delivery Room Air Room Air 11/17/20 08:16 Temp 35.6 11/17/20 00:00 Intake Total 1050 ml Balance 1050 ml Respiratory: chest is bilaterally symmetric, lungs clear to auscultation Cardiovascular: irregularly irregular, S1 and S2 Gastrointestional: soft, audible bowel sounds Extremities: no lower extremity edema bilateral Neurologic/Psychiatric: no motor/sensory deficits, alert, normal mood/affect, oriented x 3 Skin: normal color Results/Procedures: Labs Laboratory Tests 11/17/20 03:06: Sodium Level 137, Potassium Level 4.3, Chloride Level 105, Carbon Dioxide Level 22, Anion Gap 10, Blood Urea Nitrogen 22H, Creatinine 1.05, Estimat Glomerular Filtration Rate > 60, BUN/Creatinine Ratio 21, Glucose Level 115H, Calcium Level 9.1, Magnesium Level 2.1 Microbiology 11/12/20 MRSA Screen - Final, Complete A/P: Assessment: Atrial fibrillation with controlled ventricular response OAC with Xarelto Dilated cardiomyopathy with mild acute systolic congestive heart failure: EF 30- 35 percent. Primary prevention for sudden cardiac with lifevest is recommended. Discussed at length about compliance with lifevest for primary prevention for sudden cardiac . Still awaiting approval of LifeVest. Palpitations secondary to atrial fibrillation. Hypertension, on metoprolol Hyperlipidemia, monitor lipids Leukocytosis - management per medical services History of gastroesophageal reflux disease Obesity, BMI 37, discussed weight loss Probable sleep apnea Plan: Continue current regimen We have reviewed Dr. Chaudhry's notes from the weekend D/t somewhat low BP will reduce Toprol XL to once a day OK to discharge home after Life Vest has been applied F/U appt with us next week Advised compliance with medication regimen and cardiac f/u Advise out pt sleep study eval Clinical Quality Measures AMI/AHF: ASA po Prior to arrival: ANN Correa Nov 17, 2020 10:12
--- NOTE | 2020-11-17 11:09 | Progress Note - Cardiology ---
Cardiology SOAP Progress Note Subjective: Gen malaise Mild to mod shortness of breath with exertion No cp or palp or syncope No n/v/d Feels better than at time of adm. Wishes to go home Objective: I&O/Vital Signs 11/16/20 11/17/20 11/17/20 11/17/20 23:59 01:00 04:00 06:38 Temp 35.7 35.4 Pulse 63 62 67 48 Resp 18 20 B/P (MAP) 96/51 (66) 106/68 (81) Pulse Ox 95 95 O2 Delivery Room Air Room Air 11/17/20 08:16 Temp 35.6 11/17/20 00:00 Intake Total 1050 ml Balance 1050 ml Respiratory: chest is bilaterally symmetric, lungs clear to auscultation Cardiovascular: irregularly irregular, S1 and S2 Gastrointestional: soft, audible bowel sounds Extremities: no lower extremity edema bilateral Neurologic/Psychiatric: no motor/sensory deficits, alert, normal mood/affect, oriented x 3 Skin: normal color Results/Procedures: Labs Laboratory Tests 11/17/20 03:06: Sodium Level 137, Potassium Level 4.3, Chloride Level 105, Carbon Dioxide Level 22, Anion Gap 10, Blood Urea Nitrogen 22H, Creatinine 1.05, Estimat Glomerular Filtration Rate > 60, BUN/Creatinine Ratio 21, Glucose Level 115H, Calcium Level 9.1, Magnesium Level 2.1 Microbiology 11/12/20 MRSA Screen - Final, Complete Laboratory Tests 11/16/20 02:20 11/17/20 03:06 A/P: Assessment: Atrial fibrillation with controlled ventricular response OAC with Xarelto Dilated cardiomyopathy with mild acute systolic congestive heart failure: EF 30- 35 percent. Hypertension Hyperlipidemia, Leukocytosis - management per Medical services History of gastroesophageal reflux disease Obesity, BMI 37 Probable sleep apnea Plan: I interviewed and examined the patient and reviewed his records Primary prevention for sudden cardiac with LifeVest is recommended We have reviewed Dr. Chaudhry's notes from the weekend D/t somewhat low BP will reduce Toprol XL to once a day OK to discharge home after Life Vest has been applied F/U appt with us next week Advised compliance with medication regimen and cardiac f/u Advised out pt sleep study eval Questions answered in detail Clinical Quality Measures AMI/AHF: ASA po Prior to arrival: SAVI Cheng MD FACP FACC CCDS Nov 17, 2020 11:09
--- NOTE | 2020-11-17 13:47 | NUR ---
CM/SS visited with the patient for a social service consult. Plan: The patient will return home self care. The patient is refusing the life vest at this time. Home: The patient lives at home alone on his family property. Patient is independent at baseline. He states that he moved here 3 weeks ago from a different state and does not have a job or insurance. Insurance: According to [facility], the patient is Medicaid pending. Zoll/Life vest: CM/SS visited with the patient. He states that he hasn't spoke with anyone at [facility] regarding his life vest and payment options yet. The patient states that he does not have insurance or a job. The patient is anxious to be discharged and is wanting to know what time they can come. CM/SS contacted Alivia at [facility] to discuss the patient's life vest. Alivia reports that she has been having trouble getting a hold of staff at the hospital due to being put on hold. Alivia states that since the patient is Medicaid pending he will owe a 250 dollar deposit. She states there are many options for paying. CM/SS presented the information to the patient. The patient became agitated and reports that he does not have the money and he will not ask his family to help because "no one has money". The patient stated "I'll just leave without the vest then". CM/SS asked if the patient could stay while this sw looked into different assistance options. He was agreeable. CM/SS asked Alma if the [facility] [place] could assist with the deposit. She stated yes; however, [facility] reports they cannot accept payment from the [facility] for legal reasons. The options from [facility] are: Sign a contract making the patient a "kole" patient and not accept any payment from a payer source, pay 3,000 dollars, or write the patient a personal check. These are not an option. CM/SS informed Alivia these were not options at this time. WENDY/SS visited with the patient. He was lying in bed with covers over his head. CM/SS attempted to tell him payment through the [facility] is not an option. He stated "I don't want the life vest, I don't need the life vest, I won't wear the life vest, and I feel fine". He stated "I would just throw it in the river anyway's". The patient reports he is going to leave and return home. CM/SS notified physician, primary care nurse, and Alivia (Radha). Alivia reports the patient was reporting the same things to her. No further needs at this time.
--- NOTE | 2020-11-17 14:30 | NUR ---
UNABLE TO GET LIFE VEST AT THIS TIME. PT. STATED " I WILL NOT STAY HERE ANOTHER DAY. I HAVE TO GO. IT'S TOO EXPENSIVE HERE."
[2020-11-17 15:05] VITALS: BP 138/78
--- NOTE | 2020-11-17 15:05 | NUR ---
PAL VALERIO demonstrates understanding of discharge instructions and accurately returns instructions upon questioning. INSTRUCTED PT. THE IMPORTANCE OF LIFE VEST. ZOLL CALLED PT. AND DISCUSSED OPTIONS FOR VEST. Copy of Post-Discharge Instructions given to PT. PAL VALERIO is able to manage continuing needs after discharge. Patients belongings returned to PT. Patient discharged from [facility]- on 11/17/20 at 1505 . PAL VALERIO left floor via W/C, accompanied by STAFF AND COUSIN PER AUTO.
--- NOTE | 2020-11-17 15:05 | NUR ---
PT. STATES HE WILL NOT SIGN REFUSAL OF LIFE VEST BECAUSE HE IS NOT REFUSING IT. PT. STATED HE CAN NOT AFFORD THE LIFE VEST. PT. REFUSES TO SIGN AMA PAPER'S. EEG TECHNOLOGIST AND DR. JOHNSON NOTIFIED. QA SOFTWARE TEST ENGINEER MICKY NOTIFIED OF PTS. CONCERNS. PT. SIGNED DISCHARGE PAPERS. INSTRUCTED PT. THE SERIOUSNESS OF HAVING THE LIFE VEST AND HOW WEAK HIS HEART MUSCLE IS.
== END 2020-11-17 15:05 | disposition home or self-care (01) | DRG 308 ==
LOC: EDUNIT# 18:46 → ER 18:50 → ICU 20:00 → CSD 11-14 19:21
PROVIDERS: ADMIT Internal Medicine; ATTEND Internal Medicine
DX: I48.19 Other persistent atrial fibrillation (principal); I50.21 Acute systolic (congestive) heart failure; I11.0 Hypertensive heart disease with heart failure; Z91.14 Patient's other noncompliance with medication regimen; E78.5 Hyperlipidemia, unspecified; K21.9 Gastro-esophageal reflux disease without esophagitis; E66.9 Obesity, unspecified; Z68.37 Body mass index [BMI] 37.0-37.9, adult; I42.0 Dilated cardiomyopathy; D72.829 Elevated white blood cell count, unspecified; Z79.01 Long term (current) use of anticoagulants; G47.30 Sleep apnea, unspecified
CPT/HCPCS: 36415; 70496; 70498; 71045; 80048; 80053; 80061; 80306; 81000; 83690; 83735; 83874; 83880; 84100; 84145; 84484; 85007; 85025; 85027; 85610; 85730; 87081; 93005; 93041; 93306

== ENCOUNTER 2021-02-01 04:01 | Inpatient (IN) | payer SELFPAY ==
[~2021-02-01] VITALS: Ht 187 cm; Wt 122.5 kg
[~2021-02-01 04:01] MED LIST changes: +AMIO200T6 PO; +ATOR40TA PO; +DIGO250T15 PO; +LISI10TA25 PO; +METO50TA7 PO; +NITR0.4T39 SL; +RIVA20TA PO
[2021-02-01 04:38] LABS: BASOPHILS % (AUTO) 0 % (0-10); EOSINOPHILS # (AUTO) 0.5 10^3/uL (0.0-0.3); EOSINOPHILS % (AUTO) 4 % (0-10); HEMATOCRIT 46 % (40-54); HEMOGLOBIN 15.4 g/dL (13.3-17.7); LYMPHOCYTES # (AUTO) 1.7 10^3/uL (1.0-4.0); LYMPHOCYTES % (AUTO) 15 % (12-44); MEAN CORPUSCULAR HEMOGLOBIN 32 pg (25-34); MEAN CORPUSCULAR HGB CONC 33 g/dL (32-36); MEAN CORPUSCULAR VOLUME 95 fL (80-99); MEAN PLATELET VOLUME 10.4 fL (9.0-12.2); MONOCYTES % (AUTO) 9 % (0-12); NEUTROPHILS # (AUTO) 8.2 10^3/uL (1.8-7.8); NEUTROPHILS % (AUTO) 72 % (42-75); PLATELET COUNT 300 10^3/uL (130-400); WHITE BLOOD COUNT 11.4 10^3/uL (4.3-11.0)
--- NOTE | 2021-02-01 04:54 | ED Cough/URI ---
General Chief Complaint: Cough/Cold/Flu Symptoms Stated Complaint: CHEST PAIN;SOB;HAND NUMBNESS Nursing Triage Note: PRESENTS TO ROOM #8 VIA POV WITH C/O COUGH, CONGESTION, BODY ACHES, SORE THROAT, ET R EAR PAIN. STATES X3WKS AGO HE WAS DX WITH BRONCHITIS AT [facility] ET COMPLETED PRESCRIBED ABX SCRIPT W/O IMPROVEMENT IN S/S. PT NOTABLY RESTLESS. 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 STATES HE HAS NOT TAKEN UNKNOWN CARDIAC MEDICAION IN X5DAYS. Sepsis Screen: No Definite Risk Source: patient (DIFFICULT HISTORIAN--APPEARS TO BE UNDER THE INFLUENCE OF SOME SUBSTANCE/S), old records History of Present Illness Date Seen by Provider: Feb 01, 2021 Time Seen by Provider: 04:17 Initial Comments PT ARRIVES VIA POV PT C/O COUGH, CONGESTION C/O BODY ACHES C/O SORE THROAT C/O RIGHT EAR PAIN STATES PAIN GOES FROM HIS RIGHT EAR DOWN TO THE MIDDLE OF HIS CHEST FEELS A LITTLE SHORT OF BREATH AND STATES HE FEELS LIKE HE IS FULL OF FLUID PT UNABLE TO STATE HOW LONG HE HAS BEEN HAVING SYMPTOMS PT IS DIAPHORETIC ON ARRIVAL, BUT DOES NOT KNOW IF HE HAS HAD FEVER PT STATES HE SMOKED METH "5 HOURS AGO" AND THEN WENT TO THE [facility] AND THEN CAME HERE PT RECENTLY MOVED HERE FROM [facility] IN OCTOBER ADMITTED HERE 11/12/20-11/17/20 FOR ATRIAL FIBRILLATION/RVR PT HAS LONGSTANDING ATRIAL FIBRILLATION, AND REPORTEDLY WAS SUPPOSED TO HAVE HAD A CARDIAC ABLATION IN [facility] BEFORE HE MOVED HERE, BUT NEVER FOLLOWED UP OR HAD PROCEDURE DONE. 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 STATES HE LIVES ALONE IN A TRAILER ON A COUSIN'S PROPERTY PCP: [facility] Allergies and Home Medications Allergies Coded Allergies: Penicillins (Verified Allergy, Unknown, 11/09/20) Home Medications Amiodarone HCl 200 Mg Tablet, 200 MG PO BID Prescribed by: STEVAN JOHNSON on 11/17/20 0809 Atorvastatin Calcium 40 Mg Tablet, 40 MG PO HS Prescribed by: STEVAN JOHNSON on 11/17/20808 Digoxin 250 Mcg Tablet, 0.25 MG PO DAILY Prescribed by: STEVAN JOHNSON on 11/17/20808 Lisinopril 10 Mg Tablet, 10 MG PO DAILY@0900 Prescribed by: STEVAN JOHNSON on 11/17/20808 Metoprolol Succinate 50 Mg Tab.er.24h, 50 MG PO HS Prescribed by: STEVAN JOHNSON on 11/17/20808 Nitroglycerin 0.4 Mg Tab.subl, 0.4 MG SL UD PRN for CHEST PAIN, (Reported) Rivaroxaban 20 Mg Tablet, 20 MG PO HS Prescribed by: STEVAN JOHNSON on 11/17/20808 Patient Home Medication List Home Medication List Reviewed: Yes Review of Systems Review of Systems Constitutional: see HPI, diaphoresis EENTM: see HPI, ear pain, nose congestion, throat pain Respiratory: see HPI, cough, short of breath Cardiovascular: chest pain Gastrointestinal: no symptoms reported Genitourinary: no symptoms reported Musculoskeletal: see HPI (BODY ACHES) Skin: no symptoms reported Psychiatric/Neurological: See HPI (ANXIOUS, RESTLESS, CONSTANT MOVEMENTS) Hematologic/Lymphatic: No Symptoms Reported Immunological/Allergic: no symptoms reported Past Dsojcoi-Pouhpe-Iuxwop Hx Past Med/Social Hx: Reviewed and Corrections made Patient Social History Alcohol Use: Regular Use Number of Drinks Today: 1 Alcohol Beverage of Choice: Beer, Vodka Drug of Choice: METHAMPHETAMINE Smoking Status: Current Everyday Smoker Type Used: Cigarettes 2nd Hand Smoke Exposure: Yes Recent Infectious Disease Expo: No Recent Hopitalizations: No Immunizations Up To Date Tetanus Booster (TDap): Unknown Date of Influenza Vaccine: Aug 09, 2020 Past Medical History Surgeries: Yes (HERNIA REPAIR) Abdominal, Appendectomy Respiratory: No Cardiac: Yes (CHF WITH REDUCED EJECTION FRACTION) Atrial Fibrillation, Cardiomyopathy, High Cholesterol, Hypertension Neurological: No Genitourinary: No Gastrointestinal: Yes Gastroesophageal Reflux Musculoskeletal: No Endocrine: Yes (OBESITY) HEENT: No Cancer: No Psychosocial: Yes (SUBSTANCE ABUSE) Integumentary: Yes (TATTOOS) Blood Disorders: No Family Medical History SOCIAL HISTORY: -ETOH--OCCASIONAL USE -DRUGS--METHAMPHETAMINES -SMOKES 1 PPD PAST SURGICAL HISTORY: -APPENDECTOMY -HERNIA REPAIR ECHOCARDIOGRAM 11/13/20--EF 30-35%, NO REGIONAL WALL MOTION ABNORMALITIES. EXTREME NON-COMPLIANCE IN ALL ASPECTS OF CARE Physical Exam Vital Signs - First Documented 02/01/21 04:15 Temp 35.8 Pulse 104 Resp 24 B/P (MAP) 141/99 (113) Pulse Ox 96 O2 Delivery Room Air Capillary Refill : Less Than 3 Seconds Height: '" Weight: lbs. oz. kg; 37.31 BMI Method: General Appearance: WD/WN, obese, other (ANXIOUS, CONSTANT MOVEMENTS--THRASHING ALL OVER, SPEECH VERY RAPID, ERRATIC AND VERY DIFFICULT TO KEEP ON SUBJECT. FREQUENT GRUNTING/GROWLING NOISES. ) HEENT: PERRL/EOMI, pharynx normal, other (TM'S SCLEROTIC BILATERALLY, RIGHT EAC MILDLY INFLAMED BUT NO SWELLING OR DISCHARGE) Neck: non-tender, full range of motion, supple, normal inspection Respiratory: normal breath sounds, no respiratory distress, no accessory muscle use Cardiovascular: no edema, no JVD, no murmur, tachycardia (RATE 80-110'S), irr egularly irregular Gastrointestinal: normal bowel sounds, non tender, soft Extremities: normal inspection, no pedal edema, no calf tenderness, normal capillary refill Neurologic/Psychiatric: no motor/sensory deficits, alert Skin: diaphoresis, pallor, tattoos/piercings, other (MULTIPLE SORES/SCARS/SCABS ON FACE, ARMS, LEGS AND LOWER ABDOMEN) Focused Exam Lactate Level 02/01/21 04:30: Lactic Acid Level 2.36*H Lactic Acid Level Laboratory Tests Test 02/01/21 04:30 Lactic Acid Level 2.36 MMOL/L (0.50-2.00) *H Progress/Results/Core Measures Suspected Sepsis Recent Fever Within 48 Hours: No Infection Criteria Present: None New/Unexplained Altered Menta: No Sepsis Screen: No Definite Risk SIRS Temperature: Pulse: 104 Respiratory Rate: 24 Laboratory Tests 02/01/21 04:25: White Blood Count 11.4H Blood Pressure 141 /99 Mean: 113 02/01/21 04:30: Lactic Acid Level 2.36*H Laboratory Tests 02/01/21 04:25: Creatinine 0.87, INR Comment 1.3, Platelet Count 300, Total Bilirubin 0.9 Results/Orders Lab Results Laboratory Tests Test 02/01/21 04:25 02/01/21 04:30 02/01/21 05:50 Range/Units White Blood Count 11.4 H 4.3-11.0 10^3/uL Red Blood Count 4.86 4.30-5.52 10^6/uL Hemoglobin 15.4 13.3-17.7 g/dL Hematocrit 46 40-54 % Mean Corpuscular Volume 95 80-99 fL Mean Corpuscular Hemoglobin 32 25-34 pg Mean Corpuscular Hemoglobin Concent 33 32-36 g/dL Red Cell Distribution Width 13.8 10.0-14.5 % Platelet Count 300 130-400 10^3/uL Mean Platelet Volume 10.4 9.0-12.2 fL Immature Granulocyte % (Auto) 0 % Neutrophils (%) (Auto) 72 42-75 % Lymphocytes (%) (Auto) 15 12-44 % Monocytes (%) (Auto) 9 0-12 % Eosinophils (%) (Auto) 4 0-10 % Basophils (%) (Auto) 0 0-10 % Neutrophils # (Auto) 8.2 H 1.8-7.8 10^3/uL Lymphocytes # (Auto) 1.7 1.0-4.0 10^3/uL Monocytes # (Auto) 1.0 0.0-1.0 10^3/uL Eosinophils # (Auto) 0.5 H 0.0-0.3 10^3/uL Basophils # (Auto) 0.0 0.0-0.1 10^3/uL Immature Granulocyte # (Auto) 0.0 0.0-0.1 10^3/uL Erythrocyte Sedimentation Rate 13 0-15 MM/HR Prothrombin Time 16.4 H 12.2-14.7 SEC INR Comment 1.3 0.8-1.4 Activated Partial Thromboplast Time 34 24-35 SEC D-Dimer 0.94 H 0.00-0.49 UG/ML Sodium Level 137 135-145 MMOL/L Potassium Level 4.0 3.6-5.0 MMOL/L Chloride Level 104 98-107 MMOL/L Carbon Dioxide Level 23 21-32 MMOL/L Anion Gap 10 5-14 MMOL/L Blood Urea Nitrogen 15 7-18 MG/DL Creatinine 0.87 0.60-1.30 MG/DL Estimat Glomerular Filtration Rate > 60 BUN/Creatinine Ratio 17 Glucose Level 113 H 70-105 MG/DL Calcium Level 9.7 8.5-10.1 MG/DL Corrected Calcium 9.9 8.5-10.1 MG/DL Magnesium Level 1.7 1.6-2.4 MG/DL Total Bilirubin 0.9 0.1-1.0 MG/DL Aspartate Amino Transf (AST/SGOT) 99 H 5-34 U/L Alanine Aminotransferase (ALT/SGPT) 82 H 0-55 U/L Alkaline Phosphatase 104 40-136 U/L Lactate Dehydrogenase 550 H 125-220 U/L Total Creatine Kinase 1666 H 30-200 U/L Creatine Kinase MB 24.2 *H <6.6 NG/ML Myoglobin 423.6 H 10.0-92.0 NG/ML Troponin I 0.041 H <0.028 NG/ML C-Reactive Protein High Sensitivity 1.05 H 0.00-0.50 MG/DL B-Type Natriuretic Peptide 1053.9 H <100.0 PG/ML Total Protein 7.1 6.4-8.2 GM/DL Albumin 3.8 3.2-4.5 GM/DL Lipase 18 8-78 U/L Procalcitonin 0.04 <0.10 NG/ML Serum Alcohol < 10 <10 MG/DL Coronavirus 2019 (MAYLIN) Not Detected Not Detecte Monoscreen NEGATIVE NEGATIVE Group A Streptococcus Screen NEGATIVE NEGATIVE Lactic Acid Level 2.36 *H 0.50-2.00 MMOL/L Urine Color YELLOW Urine Clarity CLEAR Urine pH 5.5 5-9 Urine Specific [place] >=1.030 1.016-1.022 Urine Protein 2+ H NEGATIVE Urine Glucose (UA) NEGATIVE NEGATIVE Urine Ketones NEGATIVE NEGATIVE Urine Nitrite NEGATIVE NEGATIVE Urine Bilirubin NEGATIVE NEGATIVE Urine Urobilinogen 0.2 < = 1.0 MG/DL Urine Leukocyte Esterase NEGATIVE NEGATIVE Urine RBC (Auto) 1+ H NEGATIVE Urine RBC 0-2 /HPF Urine WBC NONE /HPF Urine Squamous Epithelial Cells 0-2 /HPF Urine Crystals NONE /LPF Urine Bacteria NEGATIVE /HPF Urine Casts PRESENT /LPF Urine Hyaline Casts 2-5 H /LPF Urine Mucus SMALL H /LPF Urine Culture Indicated NO Urine Opiates Screen NEGATIVE NEGATIVE Urine Oxycodone Screen NEGATIVE NEGATIVE Urine Methadone Screen NEGATIVE NEGATIVE Urine Propoxyphene Screen NEGATIVE NEGATIVE Urine Barbiturates Screen NEGATIVE NEGATIVE Ur Tricyclic Antidepressants Screen NEGATIVE NEGATIVE Urine Phencyclidine Screen NEGATIVE NEGATIVE Urine Amphetamines Screen POSITIVE H NEGATIVE Urine Methamphetamines Screen POSITIVE H NEGATIVE Urine Benzodiazepines Screen NEGATIVE NEGATIVE Urine Cocaine Screen NEGATIVE NEGATIVE Urine Cannabinoids Screen POSITIVE H NEGATIVE Micro Results Microbiology 02/01/21 Influenza Types A,B Antigen (SELWYN) - Final, Complete My Orders Orders - JULIANO ALFONSO DO Ed Iv/Invasive Line Start (02/01/21 04:18) Ekg Tracing (02/01/21 04:18) Monitor-Rhythm Ecg Trace Only (02/01/21 04:18) Chest 1 View, Ap/Pa Only (02/01/21 04:18) Alcohol (02/01/21 04:18) BNP (02/01/21 04:18) Cbc With Automated Diff (02/01/21 04:18) Comprehensive Metabolic Panel (02/01/21 04:18) Creatine Kinase (02/01/21 04:18) Creatine Kinase Mb (02/01/21 04:18) Hs C Reactive Protein (02/01/21 04:18) Fibrin Degradation Products (02/01/21 04:18) Drug Screen Stat (Urine) (02/01/21 04:18) Lactic Acid Analyzer (02/01/21 04:18) Lipase (02/01/21 04:18) Magnesium (02/01/21 04:18) Monotest (02/01/21 04:18) Procalcitonin (Pct) (02/01/21 04:18) Protime With Inr (02/01/21 04:18) Partial Thromboplastin Time (02/01/21 04:18) Rapid Strep A Screen (02/01/21 04:18) Ua Culture If Indicated (02/01/21 04:18) Blood Culture (02/01/21 04:18) Influenza A And B Antigens (02/01/21 04:18) Erythrocyte Sedimentation Rate (02/01/21 04:18) Myoglobin Serum (02/01/21 04:18) Troponin I (02/01/21 04:18) LDH (02/01/21 04:18) Covid 19 Inhouse Test (02/01/21 04:18) Enoxaparin Injection (Lovenox Injection) (02/01/21 05:00) Enoxaparin Injection (Lovenox Injection) (02/01/21 05:00) Ct Angio Chest W (02/01/21 05:04) Ketorolac Injection (Toradol Injection) (02/01/21 05:09) Ekg Tracing (02/01/21 05:27) Lorazepam Injection (Ativan Injection) (02/01/21 05:30) Ketorolac Injection (Toradol Injection) (02/01/21 05:30) Furosemide Injection (Lasix Injection) (02/01/21 05:30) Lorazepam Injection (Ativan Injection) (02/01/21 05:24) Digoxin Injection (Lanoxin Injection) (02/01/21 06:00) Iohexol Injection (Omnipaque 350 Mg/Ml 1 (02/01/21 06:15) Received Contrast (Hold Metformin- Contr (02/01/21 06:15) Sodium Chloride Flush (Catheter Flush Sy (02/01/21 06:15) Ns (Ivpb) (Sodium Chloride 0.9% Ivpb Bag (02/01/21 06:15) Medications Given in ED Current Medications Medications Dose Ordered Sig/[place] Route Start Time Stop Time Status Last Admin Dose Admin Digoxin 0.25 mg ONCE ONCE IV 02/01/21 06:00 02/01/21 06:01 DC 02/01/21 05:53 0.25 MG Enoxaparin Sodium 40 mg ONCE ONCE SC 02/01/21 05:00 02/01/21 05:01 DC 02/01/21 05:20 40 MG Enoxaparin Sodium 80 mg ONCE ONCE SC 02/01/21 05:00 02/01/21 05:01 DC 02/01/21 05:20 80 MG Furosemide 80 mg ONCE ONCE IVP 02/01/21 05:30 02/01/21 05:34 DC 02/01/21 05:53 80 MG Iohexol 100 ml ONCE ONCE IV 02/01/21 06:15 02/01/21 06:16 DC 02/01/21 06:11 90 ML Ketorolac Tromethamine 30 mg ONCE ONCE IVP 02/01/21 05:30 02/01/21 05:31 DC 02/01/21 05:10 30 MG Lorazepam 1 mg ONCE ONCE IVP 02/01/21 05:30 02/01/21 05:31 DC 02/01/21 05:33 1 MG Sodium Chloride 10 ml NEEDED PRN IV 02/01/21 06:15 02/01/21 06:11 10 ML Sodium Chloride 100 ml ONCE ONCE IV 02/01/21 06:15 02/01/21 06:16 DC 02/01/21 06:11 70 ML Vital Signs/I&O 02/01/21 02/01/21 04:15 04:30 Temp 35.8 Pulse 104 Resp 24 B/P (MAP) 141/99 (113) Pulse Ox 96 O2 Delivery Room Air Room Air Capillary Refill : Less Than 3 Seconds Blood Pressure Mean: 113 Progress Note : Progress Note PLACED IN ISOLATION ROOM PPE WORN AT ALL TIMES COVID-19 TESTING PERFORMED NO COUGH OR DYSPNEA OR HYPOXIA NOTED AT ANY TIME NO FEVER NO COMPLAINTS FOR REMAINDER OF ER STAY GIVEN ATIVAN FOR AGITATION/CONSTANT MOVEMENTS AND THRASHING ALL OVER DUE TO METHAMPHETAMINES SLEPT AT INTERVALS FOR REMAINDER OF ER STAY GIVEN LOVENOX GIVEN LASIX GIVEN DIGOXIN NO DETERIORATION IN PT'S CONDITION DURING ER STAY ECG Initial ECG Impression Date: Feb 01, 2021 Initial ECG Impression Time: 04:20 Initial ECG Rate: 102 Initial ECG Rhythm: A Fib/Flutter Initial ECG Impression: Nonspecific Changes EKG : EKG Time: 05:17 Rate: 113 Rhythm: A Fib/Flutter ECG Impression: Nonspecific Changes Diagnostic Imaging Comments CXR--CHF, PENDING RADIOLOGIST REVIEW CT CHEST ANGIOGRAM-PER [facility] VIA FAX AT 0619 SUBOPTIMAL EXAM DUE TO PT MOVEMENT/UNCOOPERATIVENESS, BUT NO CENTRAL PULMONARY EMBOLUS, NO ACUTE PROCESS Reviewed: Reviewed by Me Departure Communication (Admissions) 0618--SPOKE WITH DR. COLE, HOSPITALIST FOR [facility]. ACCEPTS PT FOR ADMIT 0622--SPOKE WITH DR. SILVA, CARDIOLOGY CONSULT, ORDERS NOTED FOR LOVENOX AND DIGOXIN Impression Primary Impression: Atrial fibrillation with RVR Additional Impressions: Non-compliance CHF (congestive heart failure) Elevated troponin ELEVATED CK AND CK-MB--CARDIAC VS EFFECT OF METHAMPHETAMINE Heart failure with reduced ejection fraction Chest pain Methamphetamine use Marijuana use Disposition: ADMITTED INPATIENT Condition: Stable Admissions Decision to Admit Reason: Admit from ER (General) Decision to Admit/Date: Feb 01, 2021 Time/Decision to Admit Time: 06:20 Departure-Patient Inst. Referrals: NO,LOCAL PHYSICIAN (PCP/Family) Primary Care Physician JULIANO ALFONSO DO Feb 01, 2021 04:53
[2021-02-01 05:00] LABS: FIBRIN DEGRADATION PRODUCTS 0.94 UG/ML (0.00-0.49); INR 1.3 (0.8-1.4); PROTHROMBIN TIME PATIENT 16.4 SEC (12.2-14.7)
[2021-02-01] MEDS ORDERED: ENOXAPARIN 40 MG/0.4 ML (LOVENOX) SYR SC ONE (05:00)
[2021-02-01] MEDS ORDERED: ENOXAPARIN 80 MG/0.8 ML (LOVENOX) SYR SC ONE (05:00)
[2021-02-01 05:01] LABS: ERYTHROCYTE SEDIMENTATION RATE 13 MM/HR (0-15)
[2021-02-01 05:08] LABS: ALANINE AMINOTRANSFERASE 82 U/L (0-55); ALBUMIN 3.8 GM/DL (3.2-4.5); ALKALINE PHOSPHATASE 104 U/L (40-136); BILIRUBIN,TOTAL 0.9 MG/DL (0.1-1.0); BUN/CREATININE RATIO 17; CALCIUM 9.7 MG/DL (8.5-10.1); CARBON DIOXIDE 23 MMOL/L (21-32); CHLORIDE 104 MMOL/L (98-107); CREATINE KINASE 1666 U/L (30-200); CREATININE SERUM 0.87 MG/DL (0.60-1.30); GFR ESTIMATED > 60; GLUCOSE 113 MG/DL (70-105); LIPASE 18 U/L (8-78); MAGNESIUM 1.7 MG/DL (1.6-2.4); SODIUM 137 MMOL/L (135-145); TOTAL PROTEIN 7.1 GM/DL (6.4-8.2)
[2021-02-01] MEDS ORDERED: KETOROLAC 30 MG/ML VIAL ONE (05:09)
[2021-02-01] MEDS ORDERED: LORazepam INJ 2 MG/ML (ATIVAN) VIAL ONE (05:24)
[2021-02-01 05:30] LABS: CREATINE KINASE MB 24.2 NG/ML (<6.6)
[2021-02-01] MEDS ORDERED: FUROSEMIDE 40 MG/4 ML INJ (LASIX) IVP ONE (05:30)
[2021-02-01] MEDS ORDERED: LORazepam INJ 2 MG/ML (ATIVAN) VIAL IVP ONE (05:30)
[2021-02-01] MEDS ORDERED: KETOROLAC 30 MG/ML VIAL IVP ONE (05:30)
[2021-02-01] MEDS ORDERED: DIGOXIN 0.25 MG/ML (LANOXIN) 2 ML AMP IV ONE (06:00)
[2021-02-01 06:08] LABS: BILIRUBIN,URINE NEGATIVE (NEGATIVE); CLARITY,URINE CLEAR; COLOR,URINE YELLOW; GLUCOSE, URINE (UA) NEGATIVE (NEGATIVE); KETONES,URINE NEGATIVE (NEGATIVE); LEUKOCYTE ESTERASE ,URINE NEGATIVE (NEGATIVE); NITRITE,URINE NEGATIVE (NEGATIVE); PH,URINE 5.5 (5-9); PROTEIN,URINE 2+ (NEGATIVE)
[2021-02-01 06:15] LABS: BACTERIA,URINE NEGATIVE /HPF; RBC,URINE 0-2 /HPF; SQUAMOUS EPITHELIAL CELL,UR 0-2 /HPF
[2021-02-01] MEDS ORDERED: NS 100 ML (IVPB) BAG IV ONE (06:15)
[2021-02-01] MEDS ORDERED: HOLD METFORMIN - RECEIVED CONTRAST 20 ML VIAL IV SCH (06:15)
[2021-02-01] MEDS ORDERED: IOHEXOL 350 MG/ML 100 ML (OMNIPAQUE 350) VIAL IV ONE (06:15)
[2021-02-01] MEDS ORDERED: CATHETER FLUSH 10 ML SYR IV PRN (06:15)
[2021-02-01 06:20] LABS: AMPHETAMINE SCREEN, URINE POSITIVE (NEGATIVE); BARBITURATE SCREEN URINE NEGATIVE (NEGATIVE); BENZODIAZEPINES SCREEN URINE NEGATIVE (NEGATIVE); CANNABINOID SCREEN, URINE POSITIVE (NEGATIVE); COCAINE SCREEN URINE NEGATIVE (NEGATIVE); METHADONE STAT NEGATIVE (NEGATIVE); METHAMPHETAMINE SCREEN URINE S POSITIVE (NEGATIVE); OPIATE SCREEN URINE NEGATIVE (NEGATIVE); OXYCODONE STAT NEGATIVE (NEGATIVE); PROPOXYPHENE STAT NEGATIVE (NEGATIVE); TRICYCLIC ANTIDEPRESSANTS SCRE NEGATIVE (NEGATIVE)
--- NOTE | 2021-02-01 06:59 | History & Physical-Hospitalist ---
History of Present Illness HPI/Chief Complaint CC: AF RVR with meth use HPI: This is a 40yoWM with known AF who moved back from [facility] who presented to the ER with palpitations and found to have AF w/RVR and elevated troponin with BNP. Placed in ICU and patient had such aggressiveness from the meth use and thrashing around he was intubate after conscious sedation initiated to keep from harming self and others. Source: RN/MD Exam Limitations: clinical condition Date Seen 02/01/21 Time Seen by a Provider: 11:00 Attending Physician Erin Parsons DO PCP No,Local Physician Referring Physician Date of Admission Feb 01, 2021 at 06:33 Home Medications & Allergies Home Medications Reviewed patient Home Medication Reconciliation performed by pharmacy medication reconciliations commercial kitchen service technician and/or nursing. Patients Allergies have been reviewed. Allergies Allergies Coded Allergies Penicillins (Verified Allergy, Unknown, 11/09/20) Patient Social History Smoking Status: Current Everyday Smoker Immunizations Up To Date Tetanus Booster (TDap): Unknown Hepatitis A: No Hepatitis B: No TB Skin Test: None Current Status Primary Language: Latvian Past Medical History AF Meth use Family Medical History Family Hx: SOCIAL HISTORY: -ETOH--OCCASIONAL USE -DRUGS--METHAMPHETAMINES -SMOKES 1 PPD PAST SURGICAL HISTORY: -APPENDECTOMY -HERNIA REPAIR ECHOCARDIOGRAM 11/13/20--EF 30-35%, NO REGIONAL WALL MOTION ABNORMALITIES. EXTREME NON-COMPLIANCE IN ALL ASPECTS OF CARE Review of Systems Constitutional: see HPI Physical Exam Physical Exam Vital Signs Vital Signs - First Documented 02/01/21 02/01/21 02/01/21 04:15 07:10 11:31 Temp 35.8 Pulse 104 Resp 24 B/P (MAP) 141/99 (113) Pulse Ox 96 O2 Delivery Room Air O2 Flow Rate 2.00 FiO2 100 Capillary Refill : Less Than 3 Seconds Height, Weight, BMI Height: '" Weight: lbs. oz. kg; 37.31 BMI Method: General Appearance: Other (thrashing around can't examine) Results Results/Procedures Labs Laboratory Tests 02/01/21 04:25 Patient resulted labs reviewed. Assessment/Plan Admission Diagnosis Assessment: AF RVR Elevated BNP Meth use Plan: Intubate Cardiology consult Admission Status: Inpatient Order (span 2 midnights) Reason for Inpatient Admission: vcrf ERIN PARSONS DO Feb 01, 2021 06:59
--- NOTE | 2021-02-01 08:01 | Diagnostic Imaging Report ---
INDICATION: Cough, congestion COMPARISON: 11/15/2020 TECHNIQUE: Single radiograph of the chest dated 02/01/2021 FINDINGS: The cardiac silhouette is at the upper limits of normal in size. No significant pulmonary vascular congestion. The lungs are clear of focal pulmonary opacity. No pleural effusion. No pneumothorax. No acute osseous abnormality. IMPRESSION: Similar examination without acute cardiopulmonary abnormality. Dictated by: Dictated on workstation # [id number]
--- NOTE | 2021-02-01 08:07 | Diagnostic Imaging Report ---
PROCEDURE: CT angiography of the chest with contrast. TECHNIQUE: Multiple contiguous axial images were obtained through the chest after uneventful bolus administration of intravenous contrast. 3D reconstructed CTA MIP acquisitions were also performed. Auto Exposure Controls were utilized during the CT exam to meet ALARA standards for radiation dose reduction. INDICATION: Shortness of breath, pulmonary embolism, chest pain COMPARISON: Radiographs from the same date FINDINGS: Mildly enlarged mediastinal and hilar lymph nodes are present. This includes a right tracheobronchial lymph node which measures 1.4 cm in short dimension. No aneurysmal dilatation or dissection of the thoracic aorta. Unable to evaluate for pulmonary emboli as minimal contrast is noted within the pulmonary arteries as the majority of the contrast is noted within the aorta. The heart is within normal limits in size. No significant pericardial effusion. No significant pleural effusion. No pneumothorax. The trachea is patent. Mild scattered peribronchial wall thickening with minimal reticular opacities. The partially visualized upper abdomen is unremarkable. No acute osseous abnormality. IMPRESSION: Evaluation is nondiagnostic for pulmonary emboli given contrast bolus timing. Therefore, if there remains clinical concern for pulmonary emboli, repeat examination versus nuclear medicine ventilation/perfusion examination would be recommended. Mild nonspecific mediastinal hilar adenopathy. Mild bronchial wall thickening and scattered reticular opacities which is nonspecific, though can be seen with lower respiratory tract inflammation. Agree with preliminary interpretation. Dictated by: Dictated on workstation # [id number]
[2021-02-01] MEDS ORDERED: ONDANSETRON 4 MG/2 ML (SDV) Z0FRAN IV PRN ×2 (08:30→11:00)
[2021-02-01] MEDS ORDERED: NITROGLYCERIN 0.4 MG SL TABS BTL 25'S SL PRN (08:30)
[2021-02-01] MEDS: ASPIRIN E.C. 81 MG (ECOTRIN) TAB PO SCH (09:13)
[2021-02-01] MEDS: LORazepam INJ 2 MG/ML (ATIVAN) VIAL IV PRN (10:00)
[2021-02-01] MEDS ORDERED: ANTACID SUSP 30 ML UDC (MYLANTA) PO PRN (11:00)
[2021-02-01] MEDS ORDERED: D5 1/2 NS 1000 ML IV SOLUTION 1,000 ML IV PRN (11:00)
[2021-02-01] MEDS ORDERED: 1/2 NS IV SOLUTION 1,000 ML IV PRN (11:00)
[2021-02-01] MEDS ORDERED: LORazepam 1 MG (ATIVAN) TAB PO PRN (11:00)
[2021-02-01] MEDS ORDERED: SENNA W/DOCUSATE (SENOKOT S) TABLET PO PRN (11:00)
[2021-02-01] MEDS ORDERED: LORazepam INJ 2 MG/ML (ATIVAN) VIAL IM/IV PRN (11:00)
[2021-02-01] MEDS ORDERED: ZIPRASIDONE 20 MG INJ (GEODON) VIAL IM ONE (11:01)
[2021-02-01] MEDS ORDERED: HALOPERIDOL 5 MG/ML (HALDOL) VIAL ONE (11:01)
[2021-02-01] MEDS ORDERED: PROPOFOL DRIP (ICU) 100 ML IV ONE (11:04)
[2021-02-01 11:31] VITALS: BP 161/136
[2021-02-01] MEDS ORDERED: morphine INJ 4 MG/ML 1 ML (VIAL/SYRINGE) IVP PRN (12:00)
--- NOTE | 2021-02-01 12:09 | Diagnostic Imaging Report ---
HISTORY: Intubation and OG tube placement COMPARISON: 02/01/2021 TECHNIQUE: Frontal view of the chest FINDINGS: The endotracheal tube is 2.5 cm above the jeremias. The tip of the orogastric tube projects over the stomach. There are mild airspace opacities in the left lung base. No pleural effusion or pneumothorax is seen. The cardiac silhouette is normal in size. IMPRESSION: 1. The endotracheal tube is 2.5 cm above the jeremias. The orogastric tube projects over the stomach. 2. Airspace opacities of the left lung base may represent atelectasis or infiltrate. Dictated by: Dictated on workstation # [id number]
[2021-02-01] MEDS: DexMEDEtomidine 250 ML DRIP 250 ML IV SCH ×2 (12:12→21:08)
[2021-02-01] MEDS: PROPOFOL DRIP (ICU) 100 ML IV SCH ×3 (12:13→21:07)
[2021-02-01] MEDS: PANTOPRAZOLE 40 MG (PROTONIX) VIAL IV SCH (13:33)
[2021-02-01] MEDS ORDERED: ETOMIDATE IV SOLN 20 MG/10 ML VIAL IV ONE (13:38)
[2021-02-01] MEDS ORDERED: ROCURONIUM 10 MG/ML 5 ML SYRINGE IV ONE (13:38)
[2021-02-01 14:10] VITALS: BP 109/63
[2021-02-01] MEDS: dilTIAZem DRIP PRE-MIX 125 ML IV SCH (14:10)
--- NOTE | 2021-02-01 14:56 | Consultation-Cardiology ---
HPI-Cardiology Cardiology Consultation: Date of Consultation 02/01/21 Time Seen by a Provider: 12:45 Date of Admission Attending Physician Erin Parsons DO Admitting Physician No,Local Physician Consulting Physician SAVI SILVA MD, FACP, FACC HPI: Chief Complaint: Reason for consultation: A Fib, CHF, noncompliance HPI 40 yo man admitted through the ER with shortness of breath, gen aches and pains, and methamphetamine intoxication. Currently, intubated and on mech vent due to dyspnea and apnea that is probably related to meth use. He is unable to provide history. History is obtained from the ER physician who spoke with the patient earlier this am. He was not report cp or syncope or palp at the time of admiss ion. He reported to the ER physician that he had quit taking all of his meds several days prior to presentation Review of Systems-Cardiology Review of Systems Constitutional: other (He is currently intubated and on mech vent and not able to directly provide history or ROS.) VQR-Gnspsv-Pubcrm Hx Patient Social History Smoking Status: Current Everyday Smoker 2nd Hand Smoke Exposure: Yes Have you traveled recently?: No Alcohol Use?: Yes Substance type: Methamphetamine, Marijuana Pt feels they are or have been: No Tobacco type used: Cigarettes Immunizations Up To Date Tetanus Booster (TDap): Unknown Date of Influenza Vaccine: Aug 09, 2020 Past Medical History PMH As described under Assessment. Family Medical History Family Medical History: No fam h/o of early CAD or SCD documented Allergies and Home Medications Allergies Coded Allergies: Penicillins (Verified Allergy, Unknown, 11/09/20) Home Medications Amiodarone HCl 200 Mg Tablet, 200 MG PO BID Prescribed by: STEVAN JOHNSON on 11/17/20808 Atorvastatin Calcium 40 Mg Tablet, 40 MG PO HS Prescribed by: STEVAN JOHNSON on 11/17/20808 Digoxin 250 Mcg Tablet, 0.25 MG PO DAILY Prescribed by: STEVAN JOHNSON on 11/17/20808 Lisinopril 10 Mg Tablet, 10 MG PO DAILY@0900 Prescribed by: STEVAN JOHNSON on 11/17/20808 Metoprolol Succinate 50 Mg Tab.er.24h, 50 MG PO HS Prescribed by: STEVAN JOHNSON on 11/17/20808 Nitroglycerin 0.4 Mg Tab.subl, 0.4 MG SL UD PRN for CHEST PAIN, (Reported) Rivaroxaban 20 Mg Tablet, 20 MG PO HS Prescribed by: STEVAN JOHNSON on 11/17/20 0809 Patient Home Medication List Home Medication List Reviewed: Yes Physical Exam-Cardiology Physical Exam Vital Signs/I&O 02/01/21 02/01/21 02/01/21 02/01/21 04:15 04:30 07:10 07:19 Temp 35.8 Pulse 104 100 Resp 24 18 B/P (MAP) 141/99 (113) 126/100 Pulse Ox 96 96 O2 Delivery Room Air Room Air Nasal Cannula Nasal Cannula O2 Flow Rate 2.00 2.00 02/01/21 02/01/21 02/01/21 02/01/21 08:00 08:02 09:00 10:00 Pulse 112 107 131 100 Resp 17 19 16 B/P (MAP) 133/97 (109) 122/68 (86) 130/90 (103) Pulse Ox 90 96 96 O2 Delivery Nasal Cannula Nasal Cannula Nasal Cannula O2 Flow Rate 2.00 2.00 2.00 02/01/21 02/01/21 02/01/21 02/01/21 11:00 11:27 11:31 12:00 Pulse 101 133 115 Resp 11 18 18 B/P (MAP) 160/84 (109) 157/88 99/79 (86) Pulse Ox 96 98 97 O2 Delivery Nasal Cannula Mechanical Ventilator O2 Flow Rate 2.00 100.00 FiO2 100 02/01/21 02/01/21 02/01/21 02/01/21 12:00 12:00 12:12 12:29 Temp 36.1 Pulse 114 B/P (MAP) 157/88 O2 Delivery Mechanical Ventilator FiO2 100 02/01/21 02/01/21 02/01/21 02/01/21 13:00 14:00 14:09 14:10 Pulse 86 84 97 Resp 18 18 18 B/P (MAP) 100/45 (63) 109/93 (98) 109/63 Pulse Ox 99 99 99 O2 Delivery Mechanical Ventilator Mechanical Ventilator O2 Flow Rate 100.00 100.00 FiO2 75 Capillary Refill : Less Than 3 Seconds Constitutional: other (on mech vent) HEENT: PERRL, EOMI Neck: carotid pulses are 2 + bilaterally Respiratory: No accessory muscle use; other (good bilateral air entry) Cardiovascular: regular rate-rhythm, S1 and S2, systolic murmur (soft JEFFREY at card base) Gastrointestinal: soft; No guarding, No rebound; audible bowel sounds Extremities: No clubbing, No cyanosis, No significant edema Neurologic/Psychiatric: other (on mech vent, not able to cooperate with a neuro exam) Skin: No rash on exposed areas, No ulcerations on exposed areas Data Review Labs Laboratory Tests 02/01/21 04:25: White Blood Count 11.4H, Red Blood Count 4.86, Hemoglobin 15.4, Hematocrit 46, Mean Corpuscular Volume 95, Mean Corpuscular Hemoglobin 32, Mean Corpuscular Hemoglobin Concent 33, Red Cell Distribution Width 13.8, Platelet Count 300, Mean Platelet Volume 10.4, Immature Granulocyte % (Auto) 0, Neutrophils (%) (Auto) 72, Lymphocytes (%) (Auto) 15, Monocytes (%) (Auto) 9, Eosinophils (%) (Auto) 4, Basophils (%) (Auto) 0, Neutrophils # (Auto) 8.2H, Lymphocytes # (Auto) 1.7, Monocytes # (Auto) 1.0, Eosinophils # (Auto) 0.5H, Basophils # (Auto) 0.0, Immature Granulocyte # (Auto) 0.0, Erythrocyte Sedimentation Rate 13, Prothrombin Time 16.4H, INR Comment 1.3, Activated Partial Thromboplast Time 34, D-Dimer 0.94H, Sodium Level 137, Potassium Level 4.0, Chloride Level 104, Carbon Dioxide Level 23, Anion Gap 10, Blood Urea Nitrogen 15, Creatinine 0.87, Estimat Glomerular Filtration Rate > 60, BUN/Creatinine Ratio 17, Glucose Level 113H, Calcium Level 9.7, Corrected Calcium 9.9, Magnesium Level 1.7, Total Bilirubin 0.9, Aspartate Amino Transf (AST/SGOT) 99H, Alanine Aminotransferase (ALT/SGPT) 82H, Alkaline Phosphatase 104, Lactate Dehydrogenase 550H, Total Creatine Kinase 1666H, Creatine Kinase MB 24.2*H, Myoglobin 423.6H, Troponin I 0.041H, C-Reactive Protein High Sensitivity 1.05H, B-Type Natriuretic Peptide 1053.9H, Total Protein 7.1, Albumin 3.8, Lipase 18, Procalcitonin 0.04, Serum Alcohol < 10, Coronavirus 2019 (MAYLIN) Not Detected, Monoscreen NEGATIVE, Group A Streptococcus Screen NEGATIVE 02/01/21 04:30: Lactic Acid Level 2.36*H 02/01/21 05:50: Urine Color YELLOW, Urine Clarity CLEAR, Urine pH 5.5, Urine Specific [place] >=1.030, Urine Protein 2+H, Urine Glucose (UA) NEGATIVE, Urine Ketones NEGATIVE, Urine Nitrite NEGATIVE, Urine Bilirubin NEGATIVE, Urine Urobilinogen 0.2, Urine Leukocyte Esterase NEGATIVE, Urine RBC (Auto) 1+H, Urine RBC 0-2, Urine WBC NONE, Urine Squamous Epithelial Cells 0-2, Urine Crystals NONE, Urine Bacteria NEGATIVE, Urine Casts PRESENT, Urine Hyaline Casts 2-5H, Urine Mucus SMALLH, Urine Culture Indicated NO, Urine Opiates Screen NEGATIVE, Urine Oxycodone Screen NEGATIVE, Urine Methadone Screen NEGATIVE, Urine Propoxyphene Screen NEGATIVE, Urine Barbiturates Screen NEGATIVE, Ur Tricyclic Antidepressants Screen NEGATIVE, Urine Phencyclidine Screen NEGATIVE, Urine Amphetamines Screen POSITIVEH, Urine Methamphetamines Screen POSITIVEH, Urine Benzodiazepines Screen NEGATIVE, Urine Cocaine Screen NEGATIVE, Urine Cannabinoids Screen POSITIVEH 02/01/21 06:36: Lactic Acid Level 1.08 02/01/21 10:24: Troponin I 0.041H 02/01/21 12:45: Triglycerides Level 100 Microbiology 02/01/21 Blood Culture - Preliminary, Resulted No growth 02/01/21 Throat Culture - Preliminary, Resulted Laboratory Tests 02/01/21 04:25 A/P-Cardiology Assessment/Admission Diagnosis Persistent atrial fib with a somewhat rapid vent response Dilated cardiomyopathy with mild acute systolic congestive heart failure: EF 30- 35 percent. Non-compliance with treatment (including beta-ryan, NOLVIA-inhib, oral anticoag, and ext defib vest, all of which he was d/c'd on in Nov 2020) Hypertension, by history Hyperlipidemia, by history Methamphetamine use Discussion and Recomendations * Complex management * Treat heart rate with iv dilt * Enoxaparin sc for stroke prevention * Monitor labs * Will attempt oral meds once he is off ventilator SAVI SILVA MD FACP [facility] Feb 01, 2021 14:56
[2021-02-01] MEDS: ENOXAPARIN 300 MG/3 ML (LOVENOX) MULTI-DOSE VIAL SQ SCH (16:53)
[2021-02-01 18:43] VITALS: BP 106/65
[2021-02-01 21:56] VITALS: BP 114/64
[2021-02-02] MEDS: PROPOFOL DRIP (ICU) 100 ML IV SCH ×6 (00:18→23:40)
[2021-02-02] MEDS: DexMEDEtomidine 250 ML DRIP 250 ML IV SCH ×4 (02:02→23:40)
[2021-02-02 02:45] VITALS: BP 109/66
[2021-02-02 03:08] LABS: BASOPHILS % (AUTO) 0 % (0-10); EOSINOPHILS # (AUTO) 0.4 10^3/uL (0.0-0.3); EOSINOPHILS % (AUTO) 4 % (0-10); HEMATOCRIT 47 % (40-54); HEMOGLOBIN 15.2 g/dL (13.3-17.7); LYMPHOCYTES # (AUTO) 1.7 10^3/uL (1.0-4.0); LYMPHOCYTES % (AUTO) 14 % (12-44); MEAN CORPUSCULAR HEMOGLOBIN 32 pg (25-34); MEAN CORPUSCULAR HGB CONC 33 g/dL (32-36); MEAN CORPUSCULAR VOLUME 98 fL (80-99); MEAN PLATELET VOLUME 10.7 fL (9.0-12.2); MONOCYTES # (AUTO) 0.8 10^3/uL (0.0-1.0); MONOCYTES % (AUTO) 7 % (0-12); NEUTROPHILS % (AUTO) 75 % (42-75); PLATELET COUNT 233 10^3/uL (130-400)
[2021-02-02 03:33] LABS: BUN/CREATININE RATIO 16; CALCIUM 9.2 MG/DL (8.5-10.1); CARBON DIOXIDE 22 MMOL/L (21-32); CHLORIDE 106 MMOL/L (98-107); CHOLESTEROL 143 MG/DL (< 200); CREATININE SERUM 0.92 MG/DL (0.60-1.30); GFR ESTIMATED > 60; GLUCOSE 105 MG/DL (70-105); HDL CHOLESTEROL 27 MG/DL (40-60); MAGNESIUM 1.7 MG/DL (1.6-2.4); SODIUM 141 MMOL/L (135-145); TRIGLYCERIDES 115 MG/DL (<150); VLDL CHOLESTEROL 23 MG/DL (5-40)
--- NOTE | 2021-02-02 04:56 | Pulmonary Consultation ---
History of Present Illness History of Present Illness Date Seen by Provider: Feb 02, 2021 Time Seen by Provider: 04:55 Date of Admission History of Present Illness 40 yo admitted through the ER with worsening shortness of breath, gen aches and pains, and methamphetamine intoxication. Currently, intubated and on vent. Intubated in ED for airway protection. He is unable to provide history. History is obtained from the ER physician who spoke with the patient earlier this am. He was not report cp or syncope or palp at the time of admission. He reported to the ER physician that he had quit taking all of his meds several days prior to presentation Allergies and Home Medications Allergies Coded Allergies: Penicillins (Verified Allergy, Unknown, 11/09/20) Home Medications No Active Prescriptions or Reported Meds Past Pxivkdn-Llhqns-Iyhomf Hx Past Med/Social Hx: Reviewed and Corrections made Patient Social History Alcohol Use: Regular Use Number of Drinks Today: 1 Alcohol Beverage of Choice: Beer, Vodka Drug of Choice: METHAMPHETAMINE Smoking Status: Current Everyday Smoker Type Used: Cigarettes 2nd Hand Smoke Exposure: Yes Recent Infectious Disease Expo: No Recent Hopitalizations: No Have you traveled recently?: No Substance type: Methamphetamine, Marijuana Alcohol Use?: Yes Immunizations Up To Date Tetanus Booster (TDap): Unknown Date of Influenza Vaccine: Aug 09, 2020 Past Medical History Surgeries: Yes (HERNIA REPAIR) Abdominal, Appendectomy Respiratory: No Cardiac: Yes (CHF WITH REDUCED EJECTION FRACTION) Atrial Fibrillation, Cardiomyopathy, High Cholesterol, Hypertension Neurological: No Genitourinary: No Gastrointestinal: Yes Gastroesophageal Reflux Musculoskeletal: No Endocrine: Yes (OBESITY) HEENT: No Cancer: No Psychosocial: Yes (SUBSTANCE ABUSE) Integumentary: Yes (TATTOOS) Blood Disorders: No Family Medical History SOCIAL HISTORY: -ETOH--OCCASIONAL USE -DRUGS--METHAMPHETAMINES -SMOKES 1 PPD PAST SURGICAL HISTORY: -APPENDECTOMY -HERNIA REPAIR ECHOCARDIOGRAM 11/13/20--EF 30-35%, NO REGIONAL WALL MOTION ABNORMALITIES. EXTREME NON-COMPLIANCE IN ALL ASPECTS OF CARE Review of Systems Time Seen by Provider: 05:15 Sepsis Event Evaluation Height, Weight, BMI Height: '" Weight: lbs. oz. kg; 32.48 BMI Method: Exam Exam Vital Signs Date Time Temp Pulse Resp B/P (MAP) Pulse Ox O2 Delivery O2 Flow Rate FiO2 02/02/21 04:00 Mechanical Ventilator 30 02/02/21 03:43 35.9 02/02/21 02:45 73 18 96 30 02/02/21 02:02 79 102/64 02/02/21 02:00 78 18 102/64 (77) 96 Mechanical Ventilator 40.00 02/02/21 01:00 72 02/02/21 01:00 72 19 103/70 (81) 96 Mechanical Ventilator 40.00 02/02/21 00:19 75 02/02/21 00:18 75 02/02/21 00:00 70 18 106/59 (75) 96 Mechanical Ventilator 40.00 02/01/21 23:59 Mechanical Ventilator 40 02/01/21 23:45 36.6 02/01/21 23:00 72 18 110/58 (75) 96 Mechanical Ventilator 30.00 02/01/21 22:00 75 18 113/58 (76) 96 Mechanical Ventilator 30.00 02/01/21 21:56 80 18 96 30 02/01/21 21:08 74 02/01/21 21:07 74 02/01/21 21:00 81 21 105/67 (80) 96 Mechanical Ventilator 30.00 02/01/21 20:00 77 18 103/53 (70) 96 Mechanical Ventilator 30.00 02/01/21 20:00 Mechanical Ventilator 80 02/01/21 19:00 78 02/01/21 19:00 78 19 103/52 (69) 95 Mechanical Ventilator 30.00 02/01/21 18:51 Mechanical Ventilator 30.00 02/01/21 18:43 78 18 98 30 02/01/21 18:00 78 18 115/64 (81) 99 Mechanical Ventilator 100.00 02/01/21 17:00 75 18 108/70 (83) 99 Mechanical Ventilator 100.00 02/01/21 16:00 Mechanical Ventilator 80 02/01/21 16:00 78 18 111/63 (79) 99 Mechanical Ventilator 100.00 02/01/21 15:00 74 18 106/57 (73) 99 Mechanical Ventilator 100.00 02/01/21 14:10 97 18 99 75 02/01/21 14:09 109/63 02/01/21 14:00 84 18 109/93 (98) 99 Mechanical Ventilator 100.00 02/01/21 13:00 86 18 100/45 (63) 99 Mechanical Ventilator 100.00 02/01/21 12:29 114 02/01/21 12:12 157/88 02/01/21 12:00 Mechanical Ventilator 100 02/01/21 12:00 36.1 02/01/21 12:00 115 18 99/79 (86) 97 Mechanical Ventilator 100.00 02/01/21 11:31 133 18 98 100 02/01/21 11:27 157/88 02/01/21 11:00 101 11 160/84 (109) 96 Nasal Cannula 2.00 02/01/21 10:00 100 16 130/90 (103) 96 Nasal Cannula 2.00 02/01/21 09:00 131 19 122/68 (86) 96 Nasal Cannula 2.00 02/01/21 08:02 107 02/01/21 08:00 112 17 133/97 (109) 90 Nasal Cannula 2.00 02/01/21 07:19 100 18 126/100 96 Nasal Cannula 2.00 02/01/21 07:10 Nasal Cannula 2.00 I & O 02/02/21 07:00 Intake Total 0 ml Output Total 1800 ml Balance -1800 ml Height & Weight Height: '" Weight: lbs. oz. kg; 32.48 BMI Method: General Appearance: Other (thrashing around can't examine) Capillary Refill: Less Than 3 Seconds Gastrointestinal: normal bowel sounds, non tender, soft Skin: Normal Color, Warm/Dry Lymphatic: No Adenopathy Results Lab Laboratory Tests 02/01/21 04:25 02/02/21 02:45 Assessment/Plan Assessment/Plan Acute respiratory failure -Continue ventilator - Intubated 02/01 -Vent 500, 18,5, 30% -Sedation Propofol and precedex currently methamphetamine dependance Alcohol and tobacco dependance CHF with EF 30-35% Afib RVR TYE SÁNCHEZ DO Feb 02, 2021 04:56
[2021-02-02] MEDS: ENOXAPARIN 300 MG/3 ML (LOVENOX) MULTI-DOSE VIAL SQ SCH ×2 (05:36→17:20)
[2021-02-02] MEDS: MULTIVIT W/MINERALS TAB (THERAGRAN M) PO SCH (06:12)
[2021-02-02] MEDS: THIAMINE 100 MG (VITAMIN B-1) TAB PO SCH (06:13)
[2021-02-02 06:54] VITALS: BP 101/53
[2021-02-02 08:03] LABS: ABG BASE EXCESS 1.7 MMOL/L (-2.5-2.5); ABG OXYGEN SATURATION 90 % (94-100); ABG PCO2 37 MMHG (35-45); ABG PH 7.45 (7.37-7.43); ABG PO2 56 MMHG (79-93); ABG TCO2 26.7 MMOL/L (21.0-31.0)
--- NOTE | 2021-02-02 08:04 | Diagnostic Imaging Report ---
CHEST 1 VIEW, AP/PA ONLY Indication: Intubation Comparison: 02/01/2021 Findings: ET tube has tip 2.4 cm above the jeremias. Enteric tube courses into the stomach. Improved but persistent left basilar patchy pulmonary opacities. No pleural effusion or pneumothorax. Normal cardiac silhouette. Impression: 1. Well-positioned support devices. 2. Improved aeration of left lung base which may be due to resolving pneumonia or atelectasis. Dictated by: Dictated on workstation # [id number]
[2021-02-02 08:05] LABS: ALLENS TEST YES-POS; INSPIRED O2 30%; PATIENT TEMP 36.4; VENTILATOR YES
--- NOTE | 2021-02-02 08:28 | Progress Note - Cardiology ---
Cardiology SOAP Progress Note Subjective: Intubated and sedated Objective: I&O/Vital Signs 02/03/21 02/03/21 02/03/21 02/03/21 20:00 20:00 20:02 21:00 Temp 36.3 Pulse 70 71 Resp 25 B/P (MAP) 126/76 (93) 113/70 (84) Pulse Ox 95 97 97 O2 Delivery Mechanical Ventilator Mechanical Ventilator Mechanical Ventilator O2 Flow Rate 30.00 30.00 FiO2 30 02/03/21 02/03/21 02/03/21 02/03/21 22:00 22:00 23:00 23:04 Temp 36.2 Pulse 71 68 72 Resp 29 23 23 B/P (MAP) 116/64 (81) 105/69 (81) Pulse Ox 95 97 93 O2 Delivery Mechanical Ventilator Mechanical Ventilator O2 Flow Rate 21.00 21.00 FiO2 30 02/03/21 02/03/21 02/03/21 02/04/21 23:08 23:08 23:23 00:00 Pulse 69 72 Resp 24 B/P (MAP) 105/69 108/65 (79) Pulse Ox 93 94 O2 Delivery Mechanical Ventilator Mechanical Ventilator O2 Flow Rate 21.00 FiO2 21 02/04/21 02/04/21 02/04/21 02/04/21 01:00 01:00 02:00 02:33 Pulse 70 70 67 Resp B/P (MAP) 116/62 (80) 103/68 (80) 107/60 Pulse Ox 93 93 O2 Delivery Mechanical Ventilator Mechanical Ventilator O2 Flow Rate 21.00 21.00 02/04/21 02/04/21 02/04/21 02/04/21 03:00 03:04 03:07 03:26 Temp 36.6 Pulse 77 69 Resp 23 B/P (MAP) 115/57 (76) Pulse Ox 94 93 93 O2 Delivery Mechanical Ventilator Mechanical Ventilator O2 Flow Rate 21.00 FiO2 21 21 02/04/21 02/04/21 02/04/21 02/04/21 04:00 04:58 05:00 06:00 Pulse 69 66 69 Resp 24 23 19 B/P (MAP) 109/56 (73) 113/67 105/64 (78) 105/63 (77) Pulse Ox 93 93 92 O2 Delivery Mechanical Ventilator Mechanical Ventilator Mechanical Ventilator O2 Flow Rate 21.00 21.00 21.00 02/04/21 02/04/21 02/04/21 06:21 06:26 07:40 Temp 36.6 Pulse 68 71 Resp 30 Pulse Ox 93 FiO2 21 02/04/21 00:00 Intake Total 2070 ml Output Total 900 ml Balance 1170 ml Constitutional: other (on mech vent) Respiratory: No accessory muscle use; other (good bilateral air entry) Cardiovascular: regular rate-rhythm, S1 and S2, systolic murmur (soft JEFFREY at card base) Gastrointestional: soft; No guarding, No rebound; audible bowel sounds Extremities: No clubbing, No cyanosis, No significant edema Neurologic/Psychiatric: other (on mech vent, not able to cooperate with a neuro exam) Skin: No rash on exposed areas, No ulcerations on exposed areas Results/Procedures: Labs Laboratory Tests 02/03/21 11:10: Glucometer 93 02/03/21 18:08: Glucometer 98 02/03/21 23:07: Glucometer 101 02/04/21 01:20: Blood Gas Puncture Site R RAD, Blood Gas Patient Temperature 36.6, Arterial Blood pH 7.41, Arterial Blood Partial Pressure CO2 33L, Arterial Blood Partial Pressure O2 64L, Arterial Blood HCO3 21L, Arterial Blood Total CO2 21.6, Arterial Blood Oxygen Saturation 91L, Arterial Blood Base Excess -3.4L, Michele Test YES-POS, Blood Gas Ventilator Setting YES, Blood Gas Inspired Oxygen 21% 02/04/21 02:00: White Blood Count 15.3H, Red Blood Count 4.85, Hemoglobin 15.3, Hematocrit 49, Mean Corpuscular Volume 100H, Mean Corpuscular Hemoglobin 32, Mean Corpuscular Hemoglobin Concent 32, Red Cell Distribution Width 14.0, Platelet Count 254, Mean Platelet Volume 11.1, Immature Granulocyte % (Auto) 1, Neutrophils (%) ( Auto) 84H, Lymphocytes (%) (Auto) 6L, Monocytes (%) (Auto) 9, Eosinophils (%) (Auto) 1, Basophils (%) (Auto) 0, Neutrophils # (Auto) 12.8H, Lymphocytes # (Auto) 1.0, Monocytes # (Auto) 1.3H, Eosinophils # (Auto) 0.1, Basophils # (Auto) 0.0, Immature Granulocyte # (Auto) 0.1, Neutrophils % (Manual) 74, Lymphocytes % (Manual) 5, Monocytes % (Manual) 8, Eosinophils % (Manual) 0, Basophils % (Manual) 0, Band Neutrophils 9, Reactive Lymphocytes 4, Toxic Granulation 1+, Anisocytosis SLIGHT, Sodium Level 141, Potassium Level 4.2, Chloride Level 107, Carbon Dioxide Level 22, Anion Gap 12, Blood Urea Nitrogen 18, Creatinine 1.05, Estimat Glomerular Filtration Rate > 60, BUN/Creatinine Ratio 17, Glucose Level 101, Calcium Level 8.6, Phosphorus Level 3.2, Magnesium Level 1.8, Procalcitonin 0.75H Microbiology 02/02/21 Gram Stain - Final, Resulted 02/02/21 Sputum Culture - Preliminary, Resulted Staphylococcus aureus Corynebacterium pseudodiphther 02/01/21 Blood Culture - Preliminary, Resulted No growth Procedures NAME: PAL VALERIO [facility] REC#: [id number] PT STATUS: ADM IN : 1980 PHYSICIAN: BK COLE DO ADMIT DATE: 02/01/21/ICU Draft Date of Exam:02/02/21 CHEST 1 VIEW, AP/PA ONLY CHEST 1 VIEW, AP/PA ONLY Indication: Intubation Comparison: 02/01/2021 Findings: ET tube has tip 2.4 cm above the jeremias. Enteric tube courses into the stomach. Improved but persistent left basilar patchy pulmonary opacities. No pleural effusion or pneumothorax. Normal cardiac silhouette. Impression: 1. Well-positioned support devices. 2. Improved aeration of left lung base which may be due to resolving pneumonia or atelectasis. Dictated on workstation # [id number] Dict: 02/02/21 0801 Trans: 02/02/21 0804 CV [id number] Interpreted by: CHRIS FUNG MD Electronically signed by: A/P: Assessment: Persistent atrial fib with a somewhat rapid vent response Dilated cardiomyopathy with mild acute systolic congestive heart failure: EF 30- 35 percent. Non-compliance with treatment (including beta-ryan, NOLVIA-inhib, oral anticoag, and ext defib vest, all of which he was d/c'd on in Nov 2020) Hypertension, by history Hyperlipidemia, by history Methamphetamine use Plan: * Complex management * Continue to treat heart rate with iv dilt * Enoxaparin sc for stroke prevention * Monitor labs * Will attempt oral meds once he is off ventilator ANN RHOADES Feb 02, 2021 08:28
[2021-02-02] MEDS: ASPIRIN E.C. 81 MG (ECOTRIN) TAB PO SCH (08:55)
[2021-02-02] MEDS: FOLIC ACID 1 MG TAB PO SCH (08:55)
[2021-02-02] MEDS: PANTOPRAZOLE 40 MG (PROTONIX) VIAL IV SCH (08:55)
[2021-02-02] MEDS: DIGOXIN 0.25 MG (LANOXIN) TAB PO SCH (08:56)
[2021-02-02] MEDS ORDERED: RT-ALBUTEROL/IPRATROPIUM 3 ML (DUONEB) VIAL INH PRN (10:00)
[2021-02-02 10:50] VITALS: BP 101/61
--- NOTE | 2021-02-02 13:50 | Progress Note ---
Subjective Subjective/Events-last exam Afebrile. Remains intubated and on dexmedetomidine drip. Focused Exam Lactate Level 02/01/21 04:30: Lactic Acid Level 2.36*H 02/01/21 06:36: Lactic Acid Level 1.08 Objective Exam Last Set of Vital Signs Vital Signs Date Time Temp Pulse Resp B/P (MAP) Pulse Ox O2 Delivery O2 Flow Rate FiO2 02/02/21 13:00 74 25 104/74 (84) 95 Mechanical Ventilator 40.00 02/02/21 12:00 37.2 02/02/21 10:50 30 Capillary Refill : Less Than 3 Seconds I&O Intake and Output 02/01/21 23:59 Intake Total 0 ml Output Total 1625 ml Balance -1625 ml Intake Oral 0 ml Output Urine Total 1625 ml Daily Weight Change No General: Other (intubated, sedated) Lungs: Clear to Auscultation, Normal Air Movement Heart: Other (irregular rhythm, normal rate) Abdomen: Normal Bowel Sounds, Soft Extremities: No Edema Results/Procedures Lab Laboratory Tests 02/01/21 18:04: Glucometer 105 02/01/21 23:46: Glucometer 104 02/02/21 02:45: White Blood Count 12.0H, Red Blood Count 4.76, Hemoglobin 15.2, Hematocrit 47, Mean Corpuscular Volume 98, Mean Corpuscular Hemoglobin 32, Mean Corpuscular Hemoglobin Concent 33, Red Cell Distribution Width 13.8, Platelet Count 233, Mean Platelet Volume 10.7, Immature Granulocyte % (Auto) 0, Neutrophils (%) (Auto) 75, Lymphocytes (%) (Auto) 14, Monocytes (%) (Auto) 7, Eosinophils (%) (Auto) 4, Basophils (%) (Auto) 0, Neutrophils # (Auto) 9.0H, Lymphocytes # (Auto) 1.7, Monocytes # (Auto) 0.8, Eosinophils # (Auto) 0.4H, Basophils # (A uto) 0.0, Immature Granulocyte # (Auto) 0.0, Sodium Level 141, Potassium Level 4.0, Chloride Level 106, Carbon Dioxide Level 22, Anion Gap 13, Blood Urea Nitrogen 15, Creatinine 0.92, Estimat Glomerular Filtration Rate > 60, BUN/Creatinine Ratio 16, Glucose Level 105, Calcium Level 9.2, Phosphorus Level 3.0, Magnesium Level 1.7, Triglycerides Level 115, Cholesterol Level 143, LDL C holesterol Direct 113, VLDL Cholesterol 23, HDL Cholesterol 27L 02/02/21 07:55: Blood Gas Puncture Site LT RADIAL, Blood Gas Patient Temperature 36.4, Arterial Blood pH 7.45H, Arterial Blood Partial Pressure CO2 37, Arterial Blood Partial Pressure O2 56L, Arterial Blood HCO3 26, Arterial Blood Total CO2 26.7, Arterial Blood Oxygen Saturation 90L, Arterial Blood Base Excess 1.7, Michele Test YES-POS, Blood Gas Ventilator Setting YES, Blood Gas Inspired Oxygen 30% 02/02/21 11:39: Glucometer 97 Microbiology 02/01/21 Blood Culture - Preliminary, Resulted No growth 02/01/21 Throat Culture - Preliminary, Resulted No Beta Strep isolated Assessment/Plan Assessment/Plan (1) Atrial fibrillation with RVR Status: Acute Assessment & Plan: On diltiazem drip and treatment dose enoxaparin, appreciate Cardiology recommendations. (2) HTN (hypertension) Status: Chronic Assessment & Plan: Currently BP normal to low, hold home meds (had not been filled in over a month per pharmacy reconciliation) Qualifiers: Qualified Codes: I10 - Essential (primary) hypertension (3) HLD (hyperlipidemia) Status: Chronic (4) HFrEF (heart failure with reduced ejection fraction) Status: Chronic Assessment & Plan: Not taking home medications prior to admission. (5) Methamphetamine use Status: Acute Assessment & Plan: With severe agitation requiring sedation and intubation. Appreciate Pulmonology recommendations. (6) CHF (congestive heart failure) Status: Acute Assessment & Plan: Appreciate Cardiology recommendations. Qualifiers: Qualified Codes: I50.23 - Acute on chronic systolic (congestive) heart failure (7) Elevated troponin Status: Acute Assessment & Plan: Appreciate Cardiology recommendations. (8) Rhabdomyolysis Status: Acute Assessment & Plan: CK elevated but normal creatinine, follow. Qualifiers: Qualified Codes: M62.82 - Rhabdomyolysis (9) Elevated d-dimer Status: Acute Assessment & Plan: CTA non-diagnostic, but on treatment dose enoxaparin for a fib. (10) DVT prophylaxis Status: Acute Assessment & Plan: Enoxaparin treatment dose JB VALDEZ MD Feb 02, 2021 13:50
[2021-02-02] MEDS: MAGNESIUM 1 GM/100 ML IVPB 200 ML IV ONE ×2 (15:14→17:06)
[2021-02-02] MEDS: MAGNESIUM 1 GM/100 ML IVPB 100 ML IV SCH ×3 (15:15→16:37)
[2021-02-02 15:26] VITALS: BP 103/65
[2021-02-02] MEDS: dilTIAZem DRIP PRE-MIX 125 ML IV SCH (15:35)
--- NOTE | 2021-02-02 15:57 | Progress Note - Cardiology ---
Cardiology SOAP Progress Note Subjective: Unable to communicate because on mech vent and sedated Objective: I&O/Vital Signs 02/02/21 02/02/21 02/02/21 02/02/21 04:00 04:00 05:00 05:37 Pulse 75 70 78 Resp 18 20 B/P (MAP) 106/56 (73) 101/57 (72) Pulse Ox 95 95 O2 Delivery Mechanical Ventilator Mechanical Ventilator Mechanical Ventilator O2 Flow Rate 40.00 40.00 FiO2 30 02/02/21 02/02/21 02/02/21 02/02/21 05:37 06:00 06:44 06:54 Pulse 78 70 75 75 Resp 19 21 B/P (MAP) 108/60 (76) Pulse Ox 95 96 O2 Delivery Mechanical Ventilator O2 Flow Rate 40.00 FiO2 30 02/02/21 02/02/21 02/02/21 02/02/21 07:00 07:30 08:00 08:30 Temp 36.4 Pulse 69 71 Resp 22 19 B/P (MAP) 104/63 (77) 100/59 (73) Pulse Ox 94 93 O2 Delivery Mechanical Ventilator Mechanical Ventilator Mechanical Ventilator O2 Flow Rate 40.00 40.00 FiO2 30 02/02/21 02/02/21 02/02/21 02/02/21 09:00 09:47 10:00 10:50 Pulse 73 78 73 77 Resp 20 20 19 B/P (MAP) 104/53 (70) 110/69 (83) Pulse Ox 95 95 95 O2 Delivery Mechanical Ventilator Mechanical Ventilator O2 Flow Rate 40.00 40.00 FiO2 30 02/02/21 02/02/21 02/02/21 02/02/21 11:00 11:34 11:34 12:00 Temp 37.2 Pulse 73 71 75 Resp 22 B/P (MAP) 101/63 (76) Pulse Ox 95 O2 Delivery Mechanical Ventilator O2 Flow Rate 40.00 02/02/21 02/02/21 02/02/21 02/02/21 12:00 12:00 12:44 13:00 Pulse 67 76 74 Resp 22 25 B/P (MAP) 103/73 (83) 104/74 (84) Pulse Ox 92 95 O2 Delivery Mechanical Ventilator Mechanical Ventilator Mechanical Ventilator O2 Flow Rate 40.00 40.00 FiO2 40 02/02/21 02/02/21 02/02/21 14:00 15:00 15:26 Pulse 73 82 74 Resp B/P (MAP) 103/72 (82) 104/61 (75) Pulse Ox 95 96 97 O2 Delivery Mechanical Ventilator Mechanical Ventilator O2 Flow Rate 40.00 40.00 FiO2 40 02/01/21 23:59 Intake Total 0 ml Output Total 1275 ml Balance -1275 ml Constitutional: other (on mech vent) Respiratory: No accessory muscle use; other (good bilateral air entry) Cardiovascular: regular rate-rhythm, S1 and S2, systolic murmur (soft JEFFREY at card base) Gastrointestional: soft; No guarding, No rebound; audible bowel sounds Extremities: No clubbing, No cyanosis, No significant edema Neurologic/Psychiatric: other (on mech vent, not able to cooperate with a neuro exam) Skin: No rash on exposed areas, No ulcerations on exposed areas Results/Procedures: Labs Laboratory Tests 02/01/21 18:04: Glucometer 105 02/01/21 23:46: Glucometer 104 02/02/21 02:45: White Blood Count 12.0H, Red Blood Count 4.76, Hemoglobin 15.2, Hematocrit 47, Mean Corpuscular Volume 98, Mean Corpuscular Hemoglobin 32, Mean Corpuscular Hemoglobin Concent 33, Red Cell Distribution Width 13.8, Platelet Count 233, Mean Platelet Volume 10.7, Immature Granulocyte % (Auto) 0, Neutrophils (%) (Auto) 75, Lymphocytes (%) (Auto) 14, Monocytes (%) (Auto) 7, Eosinophils (%) (Auto) 4, Basophils (%) (Auto) 0, Neutrophils # (Auto) 9.0H, Lymphocytes # (Auto) 1.7, Monocytes # (Auto) 0.8, Eosinophils # (Auto) 0.4H, Basophils # (Auto) 0.0, Immature Granulocyte # (Auto) 0.0, Sodium Level 141, Potassium Level 4.0, Chloride Level 106, Carbon Dioxide Level 22, Anion Gap 13, Blood Urea Nitrogen 15, Creatinine 0.92, Estimat Glomerular Filtration Rate > 60, BUN/Creatinine Ratio 16, Glucose Level 105, Calcium Level 9.2, Phosphorus Level 3.0, Magnesium Level 1.7, Triglycerides Level 115, Cholesterol Level 143, LDL Cholesterol Direct 113, VLDL Cholesterol 23, HDL Cholesterol 27L 02/02/21 07:55: Blood Gas Puncture Site LT RADIAL, Blood Gas Patient Temperature 36.4, Arterial Blood pH 7.45H, Arterial Blood Partial Pressure CO2 37, Arterial Blood Partial Pressure O2 56L, Arterial Blood HCO3 26, Arterial Blood Total CO2 26.7, Arterial Blood Oxygen Saturation 90L, Arterial Blood Base Excess 1.7, Michele Test YES-POS, Blood Gas Ventilator Setting YES, Blood Gas Inspired Oxygen 30% 02/02/21 11:39: Glucometer 97 Microbiology 02/01/21 MRSA Screen - Final, Complete MRSA not isolated 02/01/21 Blood Culture - Preliminary, Resulted No growth Laboratory Tests 02/01/21 04:25 02/02/21 02:45 A/P: Assessment: Ac resp failure, likely related to methamphetamine abuse Persistent atrial fib with a somewhat rapid vent response Dilated cardiomyopathy with mild acute systolic congestive heart failure: EF 30- 35 percent. Non-compliance with treatment (including beta-ryan, NOLVIA-inhib, oral anticoag, and ext defib vest, all of which he was d/c'd on in Nov 2020) Hypertension, by history Hyperlipidemia, by history Methamphetamine use Plan: * Complex management * Continue to treat heart rate with iv dilt * Enoxaparin sc for stroke prevention * Monitor labs * Will attempt oral meds once he is off ventilator SAVI SILVA MD FACP FAC CCDS Feb 02, 2021 15:57
[2021-02-02] MEDS: NS IV 1000 ML 1,000 ML IV SCH (17:20)
[2021-02-02 18:16] VITALS: BP 99/58
[2021-02-02 22:09] VITALS: BP 105/70
[2021-02-02] MEDS: LORazepam INJ 2 MG/ML (ATIVAN) VIAL IV PRN (22:15)
[2021-02-03] MEDS: LORazepam INJ 2 MG/ML (ATIVAN) VIAL IV PRN ×2 (00:39→03:18)
[2021-02-03 02:21] VITALS: BP 101/56
[2021-02-03 03:16] LABS: BASOPHILS % (AUTO) 0 % (0-10); EOSINOPHILS # (AUTO) 0.3 10^3/uL (0.0-0.3); EOSINOPHILS % (AUTO) 2 % (0-10); HEMATOCRIT 49 % (40-54); HEMOGLOBIN 16.1 g/dL (13.3-17.7); LYMPHOCYTES # (AUTO) 1.1 10^3/uL (1.0-4.0); LYMPHOCYTES % (AUTO) 9 % (12-44); MEAN CORPUSCULAR HEMOGLOBIN 32 pg (25-34); MEAN CORPUSCULAR HGB CONC 33 g/dL (32-36); MEAN CORPUSCULAR VOLUME 99 fL (80-99); MEAN PLATELET VOLUME 10.7 fL (9.0-12.2); MONOCYTES # (AUTO) 1.1 10^3/uL (0.0-1.0); MONOCYTES % (AUTO) 8 % (0-12); NEUTROPHILS # (AUTO) 10.4 10^3/uL (1.8-7.8); NEUTROPHILS % (AUTO) 80 % (42-75); PLATELET COUNT 265 10^3/uL (130-400); WHITE BLOOD COUNT 12.9 10^3/uL (4.3-11.0)
[2021-02-03] MEDS: PROPOFOL DRIP (ICU) 100 ML IV SCH ×6 (03:18→23:08)
[2021-02-03 03:34] LABS: ALANINE AMINOTRANSFERASE 48 U/L (0-55); ALBUMIN 3.1 GM/DL (3.2-4.5); ALKALINE PHOSPHATASE 96 U/L (40-136); BILIRUBIN,DIRECT 0.5 MG/DL (0.0-0.3); BILIRUBIN,INDIRECT 0.4 MG/DL; BILIRUBIN,TOTAL 0.9 MG/DL (0.1-1.0); BUN/CREATININE RATIO 16; CALCIUM 8.9 MG/DL (8.5-10.1); CARBON DIOXIDE 23 MMOL/L (21-32); CHLORIDE 106 MMOL/L (98-107); CREATINE KINASE 870 U/L (30-200); CREATININE SERUM 1.15 MG/DL (0.60-1.30); GFR ESTIMATED > 60; GLUCOSE 96 MG/DL (70-105); MAGNESIUM 1.9 MG/DL (1.6-2.4); PHOSPHORUS 3.6 MG/DL (2.3-4.7); POTASSIUM 4.2 MMOL/L (3.6-5.0); SODIUM 142 MMOL/L (135-145); TOTAL PROTEIN 6.4 GM/DL (6.4-8.2)
[2021-02-03 04:12] LABS: ABG BASE EXCESS -0.5 MMOL/L (-2.5-2.5); ABG OXYGEN SATURATION 92 % (94-100); ABG PCO2 36 MMHG (35-45); ABG PH 7.43 (7.37-7.43); ABG PO2 69 MMHG (79-93); ABG TCO2 24.4 MMOL/L (21.0-31.0); ALLENS TEST YES-POS; INSPIRED O2 21%; PATIENT TEMP 37; VENTILATOR YES
--- NOTE | 2021-02-03 04:39 | Pulmonary Progress Note ---
Subjective Time Seen by a Provider: 04:36 Subjective/Events-last exam Sedated on vent Sepsis Event Evaluation Height, Weight, BMI Height: '" Weight: lbs. oz. kg; 32.48 BMI Method: Focused Exam Lactate Level 02/01/21 04:30: Lactic Acid Level 2.36*H 02/01/21 06:36: Lactic Acid Level 1.08 Exam Exam Vital Signs Date Time Temp Pulse Resp B/P (MAP) Pulse Ox O2 Delivery O2 Flow Rate FiO2 02/03/21 04:29 Mechanical Ventilator 21 02/03/21 04:00 72 19 112/60 (77) 92 Mechanical Ventilator 21.00 02/03/21 03:18 69 101/56 02/03/21 03:00 72 22 111/63 (79) 91 Mechanical Ventilator 21.00 02/03/21 02:21 69 18 96 30 02/03/21 02:00 75 19 107/68 (81) 96 Mechanical Ventilator 30.00 02/03/21 01:00 72 02/03/21 01:00 72 18 106/63 (77) 96 Mechanical Ventilator 30.00 02/03/21 00:00 67 20 104/75 (85) 95 Mechanical Ventilator 30.00 02/02/21 23:40 71 105/63 02/02/21 23:40 71 105/63 02/02/21 23:37 Mechanical Ventilator 30 02/02/21 23:36 37.0 Mechanical Ventilator 02/02/21 23:00 71 20 105/63 (77) 95 Mechanical Ventilator 30.00 02/02/21 22:17 72 19 96 Mechanical Ventilator 30.00 02/02/21 22:09 71 18 97 35 02/02/21 22:00 69 21 105/70 (82) 96 Mechanical Ventilator 35.00 02/02/21 21:00 73 20 105/60 (75) 97 Mechanical Ventilator 35.00 02/02/21 20:29 Mechanical Ventilator 35 02/02/21 20:00 70 19 103/63 (76) 96 Mechanical Ventilator 35.00 02/02/21 19:59 68 23 100/65 (77) 97 Mechanical Ventilator 35.00 02/02/21 19:35 36.3 02/02/21 19:00 68 21 94/60 (71) 95 Mechanical Ventilator 40.00 02/02/21 19:00 68 02/02/21 18:16 70 18 96 40 02/02/21 18:02 71 98/57 02/02/21 18:02 72 98/57 02/02/21 18:00 65 22 98/57 (71) 96 Mechanical Ventilator 40.00 02/02/21 17:20 71 02/02/21 17:00 71 24 93/65 (74) 97 Mechanical Ventilator 40.00 02/02/21 16:33 37.1 02/02/21 16:10 Mechanical Ventilator 40 02/02/21 16:00 75 25 102/61 (75) 96 Mechanical Ventilator 40.00 02/02/21 15:26 74 21 97 40 02/02/21 15:00 82 22 104/61 (75) 96 Mechanical Ventilator 40.00 02/02/21 14:00 73 25 103/72 (82) 95 Mechanical Ventilator 40.00 02/02/21 13:00 74 25 104/74 (84) 95 Mechanical Ventilator 40.00 02/02/21 12:44 76 02/02/21 12:00 Mechanical Ventilator 40 02/02/21 12:00 67 22 103/73 (83) 92 Mechanical Ventilator 40.00 02/02/21 12:00 37.2 02/02/21 11:34 75 02/02/21 11:34 71 02/02/21 11:00 73 22 101/63 (76) 95 Mechanical Ventilator 40.00 02/02/21 10:50 77 19 95 30 02/02/21 10:00 73 20 110/69 (83) 95 Mechanical Ventilator 40.00 02/02/21 09:47 78 02/02/21 09:00 73 20 104/53 (70) 95 Mechanical Ventilator 40.00 02/02/21 08:30 Mechanical Ventilator 30 02/02/21 08:00 71 19 100/59 (73) 93 Mechanical Ventilator 40.00 02/02/21 07:30 36.4 02/02/21 07:00 69 22 104/63 (77) 94 Mechanical Ventilator 40.00 02/02/21 06:54 75 21 96 30 02/02/21 06:44 75 02/02/21 06:00 70 19 108/60 (76) 95 Mechanical Ventilator 40.00 02/02/21 05:37 78 02/02/21 05:37 78 02/02/21 05:00 70 20 101/57 (72 95 Mechanical Ventilator 40.00 I & O 02/03/21 07:00 Intake Total 510 ml Output Total 750 ml Balance -240 ml Height & Weight Height: '" Weight: lbs. oz. kg; 32.48 BMI Method: General Appearance: Other (thrashing around can't examine) Capillary Refill: Less Than 3 Seconds Gastrointestinal: normal bowel sounds, non tender, soft Results Lab Laboratory Tests 02/02/21 02:45 02/03/21 02:55 Assessment/Plan Assessment/Plan Acute respiratory failure -Continue ventilator - Intubated 02/01 -Vent 500, 18,5, 30% -Sedation Propofol and precedex currently -PT is diaphoretic and appears to be detoxing will add Versed gtt. Will leave pt on vent while going through withdrawals. methamphetamine dependance Alcohol and tobacco dependance -Continue CIWA Afib - controlled CHF with EF 30-35% TYE SÁNCHEZ DO Feb 03, 2021 04:39
[2021-02-03] MEDS ORDERED: MIDAZOLAM DRIP PRE-MIX 100 ML IV ONE (04:40)
[2021-02-03] MEDS: POTASSIUM CL 10MEQ/50ML IVPB 50 ML IV SCH (05:12)
[2021-02-03] MEDS: KCL 20 MEQ TAB (K-DUR) PO SCH (05:13)
[2021-02-03] MEDS: ENOXAPARIN 300 MG/3 ML (LOVENOX) MULTI-DOSE VIAL SQ SCH ×2 (05:14→17:28)
[2021-02-03] MEDS: MULTIVIT W/MINERALS TAB (THERAGRAN M) PO SCH (05:14)
[2021-02-03] MEDS: THIAMINE 100 MG (VITAMIN B-1) TAB PO SCH (05:15)
[2021-02-03] MEDS: DexMEDEtomidine 250 ML DRIP 250 ML IV SCH ×4 (05:15→23:08)
[2021-02-03] MEDS: MIDAZOLAM DRIP PRE-MIX 100 ML IV SCH (05:15)
[2021-02-03] MEDS: NS IV 1000 ML 1,000 ML IV SCH ×2 (05:16→23:08)
[2021-02-03 06:20] VITALS: BP 107/56
--- NOTE | 2021-02-03 08:04 | Diagnostic Imaging Report ---
Clinical indication: Patient with dyspnea. Follow-up exam. Patient with A-fib with rapid ventricular response and CHF. Exam: Portable chest x-ray upright view. Comparisons: Chest x-ray dated 02/02/2021. Findings: There is interval development of discoid atelectasis involving the right midlung field and bibasilar regions. There is no pleural effusion or pneumothorax. Cardiac silhouette is upper limits of normal for portable projection. Pulmonary vasculature is within normal limits. ET tube and feeding tube are again seen in stable good position. Impression: 1: There is interval development of right midlung field and bibasilar atelectasis, but superimposed infiltrate cannot be completely excluded. 2: The remainder of this exam shows no significant interval change compared to the prior study of comparison. Lines and tubes are in stable position, as visualized. Dictated by: Dictated on workstation # [id number]
--- NOTE | 2021-02-03 08:49 | Progress Note - Cardiology ---
Cardiology SOAP Progress Note Subjective: Remains intubated and sedated Objective: I&O/Vital Signs 02/03/21 02/03/21 02/03/21 02/03/21 20:00 20:00 20:02 21:00 Temp 36.3 Pulse 70 71 Resp 26 25 B/P (MAP) 126/76 (93) 113/70 (84) Pulse Ox 95 97 97 O2 Delivery Mechanical Ventilator Mechanical Ventilator Mechanical Ventilator O2 Flow Rate 30.00 30.00 FiO2 30 02/03/21 02/03/21 02/03/21 02/03/21 22:00 22:00 23:00 23:04 Temp 36.2 Pulse 71 68 72 Resp 29 23 23 B/P (MAP) 116/64 (81) 105/69 (81) Pulse Ox 95 97 93 O2 Delivery Mechanical Ventilator Mechanical Ventilator O2 Flow Rate 21.00 21.00 FiO2 30 02/03/21 02/03/21 02/03/21 02/04/21 23:08 23:08 23:23 00:00 Pulse 69 72 Resp 24 B/P (MAP) 105/69 108/65 (79) Pulse Ox 93 94 O2 Delivery Mechanical Ventilator Mechanical Ventilator O2 Flow Rate 21.00 FiO2 21 02/04/21 02/04/21 02/04/21 02/04/21 01:00 01:00 02:00 02:33 Pulse 70 70 67 Resp B/P (MAP) 116/62 (80) 103/68 (80) 107/60 Pulse Ox 93 93 O2 Delivery Mechanical Ventilator Mechanical Ventilator O2 Flow Rate 21.00 21.00 02/04/21 02/04/21 02/04/21 02/04/21 03:00 03:04 03:07 03:26 Temp 36.6 Pulse 77 69 Resp 23 B/P (MAP) 115/57 (76) Pulse Ox 94 93 93 O2 Delivery Mechanical Ventilator Mechanical Ventilator O2 Flow Rate 21.00 FiO2 21 21 02/04/21 02/04/21 02/04/21 02/04/21 04:00 04:58 05:00 06:00 Pulse 69 66 69 Resp 24 23 19 B/P (MAP) 109/56 (73) 113/67 105/64 (78) 105/63 (77) Pulse Ox 93 93 92 O2 Delivery Mechanical Ventilator Mechanical Ventilator Mechanical Ventilator O2 Flow Rate 21.00 21.00 21.00 02/04/21 02/04/21 02/04/21 06:21 06:26 07:40 Temp 36.6 Pulse 68 71 Resp 30 Pulse Ox 93 FiO2 21 02/04/21 00:00 Intake Total 2070 ml Output Total 900 ml Balance 1170 ml Constitutional: other (on mech vent) Respiratory: No accessory muscle use; other (good bilateral air entry) Cardiovascular: regular rate-rhythm, S1 and S2, systolic murmur (soft JEFFREY at card base) Gastrointestional: soft; No guarding, No rebound; audible bowel sounds Extremities: No clubbing, No cyanosis, No significant edema Neurologic/Psychiatric: other (on mech vent, not able to cooperate with a neuro exam) Skin: No rash on exposed areas, No ulcerations on exposed areas Results/Procedures: Labs Laboratory Tests 02/03/21 11:10: Glucometer 93 02/03/21 18:08: Glucometer 98 02/03/21 23:07: Glucometer 101 02/04/21 01:20: Blood Gas Puncture Site R RAD, Blood Gas Patient Temperature 36.6, Arterial Blood pH 7.41, Arterial Blood Partial Pressure CO2 33L, Arterial Blood Partial Pressure O2 64L, Arterial Blood HCO3 21L, Arterial Blood Total CO2 21.6, Arterial Blood Oxygen Saturation 91L, Arterial Blood Base Excess -3.4L, Michele Test YES-POS, Blood Gas Ventilator Setting YES, Blood Gas Inspired Oxygen 21% 02/04/21 02:00: White Blood Count 15.3H, Red Blood Count 4.85, Hemoglobin 15.3, Hematocrit 49, Mean Corpuscular Volume 100H, Mean Corpuscular Hemoglobin 32, Mean Corpuscular Hemoglobin Concent 32, Red Cell Distribution Width 14.0, Platelet Count 254, Mean Platelet Volume 11.1, Immature Granulocyte % (Auto) 1, Neutrophils (%) (Auto) 84H, Lymphocytes (%) (Auto) 6L, Monocytes (%) (Auto) 9, Eosinophils (%) (Auto) 1, Basophils (%) (Auto) 0, Neutrophils # (Auto) 12.8H, Lymphocytes # (Auto) 1.0, Monocytes # (Auto) 1.3H, Eosinophils # (Auto) 0.1, Basophils # (Auto) 0.0, Immature Granulocyte # (Auto) 0.1, Neutrophils % (Manual) 74, Lymphocytes % (Manual) 5, Monocytes % (Manual) 8, Eosinophils % (Manual) 0, Basophils % (Manual) 0, Band Neutrophils 9, Reactive Lymphocytes 4, Toxic Granulation 1+, Anisocytosis SLIGHT, Sodium Level 141, Potassium Level 4.2, Chloride Level 107, Carbon Dioxide Level 22, Anion Gap 12, Blood Urea Nitrogen 18, Creatinine 1.05, Estimat Glomerular Filtration Rate > 60, BUN/Creatinine Ra miya 17, Glucose Level 101, Calcium Level 8.6, Phosphorus Level 3.2, Magnesium Level 1.8, Procalcitonin 0.75H Microbiology 02/02/21 Gram Stain - Final, Resulted 02/02/21 Sputum Culture - Preliminary, Resulted Staphylococcus aureus Corynebacterium pseudodiphther 02/01/21 Blood Culture - Preliminary, Resulted No growth Procedures NAME: PAL VALERIO [facility] REC#: [id number] PT STATUS: ADM IN : 1980 PHYSICIAN: TYE SÁNCHEZ DO ADMIT DATE: 02/01/21/ICU Draft Date of Exam:02/03/21 CHEST 1 VIEW, AP/PA ONLY Clinical indication: Patient with dyspnea. Follow-up exam. Patient with A-fib with rapid ventricular response and CHF. Exam: Portable chest x-ray upright view. Comparisons: Chest x-ray dated 02/02/2021. Findings: There is interval development of discoid atelectasis involving the right midlung field and bibasilar regions. There is no pleural effusion or pneumothorax. Cardiac silhouette is upper limits of normal for portable projection. Pulmonary vasculature is within normal limits. ET tube and feeding tube are again seen in stable good position. Impression: 1: There is interval development of right midlung field and bibasilar atelectasis, but superimposed infiltrate cannot be completely excluded. 2: The remainder of this exam shows no significant interval change compared to the prior study of comparison. Lines and tubes are in stable position, as visualized. Dictated on workstation # [id number] Dict: 02/03/21 [id number] Trans: 02/03/21 0803 GRICELDA [id number] Interpreted by: NIGEL TORRE MD Electronically signed by: A/P: Assessment: Ac resp failure, likely related to methamphetamine abuse Persistent atrial fib/flutter - rate controlled Dilated cardiomyopathy with mild acute systolic congestive heart failure: EF 30- 35 percent. Non-compliance with treatment (including beta-ryan, NOLVIA-inhib, oral anticoag, and ext defib vest, all of which he was d/c'd on in Nov 2020) Hypertension, by history Hyperlipidemia, by history Methamphetamine use Suspected de-tox - management per medical services Plan: * Complex management * Continue to treat heart rate with iv dilt * Enoxaparin sc for stroke prevention * Monitor labs * Will attempt oral meds once he is off ventilator * Management of de-tox is per medical services ANN RHOADES Feb 03, 2021 08:49
[2021-02-03] MEDS: FOLIC ACID 1 MG TAB PO SCH (08:52)
[2021-02-03] MEDS: DIGOXIN 0.25 MG (LANOXIN) TAB PO SCH (08:52)
[2021-02-03] MEDS: ASPIRIN E.C. 81 MG (ECOTRIN) TAB PO SCH (08:52)
[2021-02-03] MEDS: PANTOPRAZOLE 40 MG (PROTONIX) VIAL IV SCH (08:53)
[2021-02-03 10:12] VITALS: BP 102/60
--- NOTE | 2021-02-03 11:31 | Physician Query Clarification ---
PQ-Intro New Diagnosis Admission/Discharge Admission Date: Feb 01, 2021 at 06:33 Discharge Date: Dr. Landa, The medical record reflects the following clinical scenario: History/Risk Factors: Atrial fibrillation, meth dependence w/intoxication, HTN w/acute systolic CHF, dilated cardiomyopathy, acute respiratory failure Clinical Findings: Troponin 0.041 Treatment: Lovenox, IVP 80 mg Lasix, IV Digoxin, Aspirin Question: What condition best reflects the above clinical scenario? Please document a response in the Progress Noter or Discharge Summary. 1. IL type 2 d/t demand ischemia 2. Acute IL 3. Elevated troponin as documented 4. Other, with explanation of the clinical findings. 5. Clinically undetermined, no explanation for the clinical findings. PHYSICIAN RESPONSE What condition reflects above: 1 Please remember a lack of response to the above will prompt a phone page by CDI/Coding staff. In responding to this query, please exercise your independent professional judgment. The purpose of this communication is to more accurately reflect the complexity of your patients condition. The fact that a question is asked does not imply that any particular answer is desired or expected. Thank you for your timely response to this clarification. Requestors name: Justina THIS PHYSICIAN QUERY FORM IS A PERMANENT PART OF THE MEDICAL RECORD JUSTINA CRANDALL Feb 03, 2021 11:31 SAVI SILVA MD FACP FAC CCDS Feb 03, 2021 15:26
[2021-02-03 14:53] VITALS: BP 97/62
[2021-02-03] MEDS: dilTIAZem DRIP PRE-MIX 125 ML IV SCH (14:59)
--- NOTE | 2021-02-03 15:21 | Progress Note - Cardiology ---
Cardiology SOAP Progress Note Subjective: On [facility] vent, unresponsive, not able to provide any history Objective: I&O/Vital Signs 02/03/21 02/03/21 02/03/21 02/03/21 04:00 04:29 05:00 05:15 Pulse 72 75 72 Resp 19 18 B/P (MAP) 112/60 (77) 114/66 (82) 112/60 Pulse Ox 92 92 O2 Delivery Mechanical Ventilator Mechanical Ventilator Mechanical Ventilator O2 Flow Rate 21.00 21.00 FiO2 21 02/03/21 02/03/21 02/03/21 02/03/21 05:15 06:00 06:20 06:48 Pulse 72 74 74 74 Resp 19 18 19 B/P (MAP) 112/60 108/55 (72) Pulse Ox 92 91 O2 Delivery Mechanical Ventilator O2 Flow Rate 21.00 FiO2 21 02/03/21 02/03/21 02/03/21 02/03/21 07:00 07:57 08:00 08:00 Temp 36.2 Pulse 71 73 Resp 20 18 B/P (MAP) 109/57 (74) 106/60 (75) Pulse Ox 90 90 O2 Delivery Mechanical Ventilator Mechanical Ventilator Mechanical Ventilator O2 Flow Rate 21.00 21.00 FiO2 21 02/03/21 02/03/21 02/03/21 02/03/21 08:52 09:00 10:00 10:12 Pulse 76 73 76 66 Resp 22 18 18 B/P (MAP) 107/61 109/66 (80) 104/64 (77) Pulse Ox 91 91 91 O2 Delivery Mechanical Ventilator Mechanical Ventilator O2 Flow Rate 21.00 21.00 FiO2 21 02/03/21 02/03/21 02/03/21 02/03/21 11:00 11:15 11:19 11:29 Temp 36.0 Pulse 73 67 67 Resp 18 B/P (MAP) 113/64 (80) 105/64 105/64 Pulse Ox 93 O2 Delivery Mechanical Ventilator O2 Flow Rate 21.00 02/03/21 02/03/21 02/03/21 02/03/21 11:52 12:00 12:32 12:45 Pulse 68 70 77 Resp 17 B/P (MAP) 107/61 117/73 (88) Pulse Ox 100 O2 Delivery Mechanical Ventilator Mechanical Ventilator O2 Flow Rate 21.00 FiO2 21 4/27/21 02/03/21 02/03/21 02/03/21 13:00 14:00 14:53 15:00 Pulse 74 70 67 72 Resp 18 18 28 55 B/P (MAP) 108/76 (87) 113/66 (82) 98/62 (74) Pulse Ox 91 89 95 82 O2 Delivery Mechanical Ventilator Mechanical Ventilator Mechanical Ventilator O2 Flow Rate 21.00 21.00 21.00 FiO2 35 02/03/21 00:00 Intake Total 0 ml Output Total 400 ml Balance -400 ml Constitutional: other (on mech vent) Respiratory: No accessory muscle use; other (good bilateral air entry) Cardiovascular: regular rate-rhythm, S1 and S2, systolic murmur (soft JEFFREY at card base) Gastrointestional: soft; No guarding, No rebound; audible bowel sounds Extremities: No clubbing, No cyanosis, No significant edema Neurologic/Psychiatric: other (on mech vent, not able to cooperate with a neuro exam) Skin: No rash on exposed areas, No ulcerations on exposed areas Results/Procedures: Labs Laboratory Tests 02/02/21 17:53: Glucometer 100 02/02/21 23:35: Glucometer 85 02/03/21 02:55: White Blood Count 12.9H, Red Blood Count 4.99, Hemoglobin 16.1, Hematocrit 49, Mean Corpuscular Volume 99, Mean Corpuscular Hemoglobin 32, Mean Corpuscular Hemoglobin Concent 33, Red Cell Distribution Width 13.9, Platelet Count 265, Mean Platelet Volume 10.7, Immature Granulocyte % (Auto) 1, Neutrophils (%) (Auto) 80H, Lymphocytes (%) (Auto) 9L, Monocytes (%) (Auto) 8, Eosinophils (%) (Auto) 2, Basophils (%) (Auto) 0, Neutrophils # (Auto) 10.4H, Lymphocytes # (Auto) 1.1, Monocytes # (Auto) 1.1H, Eosinophils # (Auto) 0.3, Basophils # (Auto) 0.0, Immature Granulocyte # (Auto) 0.1, Sodium Level 142, Potassium Level 4.2, Chloride Level 106, Carbon Dioxide Level 23, Anion Gap 13, Blood Urea Nitrogen 18, Creatinine 1.15, Estimat Glomerular Filtration Rate > 60, BUN/Creatinine Ratio 16, Glucose Level 96, Calcium Level 8.9, Phosphorus Level 3.6, Magnesium Level 1.9, Total Bilirubin 0.9, Direct Bilirubin 0.5H, Indirect Bilirubin 0.4, Aspartate Amino Transf (AST/SGOT) 53H, Alanine Aminotransferase (ALT/SGPT) 48, Alkaline Phosphatase 96, Total Creatine Kinase 870H, Total Protein 6.4, Albumin 3.1L 02/03/21 02:59: Triglycerides Level 115 02/03/21 04:06: Blood Gas Puncture Site RT BRACHIAL, Blood Gas Patient Temperature 37, Arterial Blood pH 7.43, Arterial Blood Partial Pressure CO2 36, Arterial Blood Partial Pressure O2 69L, Arterial Blood HCO3 23, Arterial Blood Total CO2 24.4, Arterial Blood Oxygen Saturation 92L, Arterial Blood Base Excess -0.5, Michele Test YES- POS, Blood Gas Ventilator Setting YES, Blood Gas Inspired Oxygen 21% 02/03/21 11:10: Glucometer 93 Microbiology 02/02/21 Gram Stain - Final, Resulted 02/02/21 Sputum Culture - Preliminary, Resulted Staphylococcus aureus Corynebacterium pseudodiphther 02/01/21 Blood Culture - Preliminary, Resulted No growth Laboratory Tests 02/02/21 02:45 02/03/21 02:55 A/P: Assessment: Ac resp failure, likely related to methamphetamine abuse Persistent atrial fib/flutter - rate controlled Dilated cardiomyopathy with mild acute systolic congestive heart failure: EF 30- 35 percent. Non-compliance with treatment (including beta-ryan, NOLVIA-inhib, oral anticoag, and ext defib vest, all of which he was d/c'd on in Nov 2020) Hypertension, by history Hyperlipidemia, by history Methamphetamine use Plan: * Complex management * Continue to treat heart rate with iv dilt * Enoxaparin sc for stroke prevention * Monitor labs * Will attempt oral meds once he is off ventilator * Management of amphetamine use and withdrawal is by the Medical services SAVI SILVA MD [facility] CCDS Feb 03, 2021 15:21
[2021-02-03] MEDS ORDERED: VANCOMYCIN INJECTION 1,000 MG in NS (IVPB) 250 ML IV SCH (16:30)
[2021-02-03] MEDS ORDERED: VANCOMYCIN 2000 MG/NS 500 ML IVPB IV NR ×2 (17:30)
--- NOTE | 2021-02-03 18:31 | Progress Note ---
Subjective Subjective/Events-last exam Afebrile, was diaphoretic this morning and Dr. Banegas started midazolam drip for suspected alcohol withdrawal. Focused Exam Lactate Level 02/01/21 04:30: Lactic Acid Level 2.36*H 02/01/21 06:36: Lactic Acid Level 1.08 Objective Exam Last Set of Vital Signs Vital Signs Date Time Temp Pulse Resp B/P (MAP) Pulse Ox O2 Delivery O2 Flow Rate FiO2 02/03/21 18:00 68 23 116/64 (81) 97 Mechanical Ventilator 21.00 02/03/21 15:42 35.9 02/03/21 14:53 35 Capillary Refill : Less Than 3 Seconds I&O Intake and Output 02/03/21 00:00 Intake Total 510 ml Output Total 1025 ml Balance -515 ml Intake Oral 0 ml IV Total 450 ml Tube Feeding 60 ml Output Urine Total 1025 ml General: Other (intubated, sedated) Lungs: Clear to Auscultation Heart: Regular Rate Abdomen: Normal Bowel Sounds, Soft Extremities: No Edema Results/Procedures Lab Laboratory Tests 02/02/21 23:35: Glucometer 85 02/03/21 02:55: White Blood Count 12.9H, Red Blood Count 4.99, Hemoglobin 16.1, Hematocrit 49, Mean Corpuscular Volume 99, Mean Corpuscular Hemoglobin 32, Mean Corpuscular Hemoglobin Concent 33, Red Cell Distribution Width 13.9, Platelet Count 265, Mean Platelet Volume 10.7, Immature Granulocyte % (Auto) 1, Neutrophils (%) (Auto) 80H, Lymphocytes (%) (Auto) 9L, Monocytes (%) (Auto) 8, Eosinophils (%) (Auto) 2, Basophils (%) (Auto) 0, Neutrophils # (Auto) 10.4H, Lymphocytes # (Auto) 1.1, Monocytes # (Auto) 1.1H, Eosinophils # (Auto) 0.3, Basophils # (Auto) 0.0, Immature Granulocyte # (Auto) 0.1, Sodium Level 142, Potassium Level 4.2, Chloride Level 106, Carbon Dioxide Level 23, Anion Gap 13, Blood Urea Nitrogen 18, Creatinine 1.15, Estimat Glomerular Filtration Rate > 60, BUN/Creatinine Ratio 16, Glucose Level 96, Calcium Level 8.9, Phosphorus Level 3.6, Magnesium Level 1.9, Total Bilirubin 0.9, Direct Bilirubin 0.5H, Indirect Bilirubin 0.4, Aspartate Amino Transf (AST/SGOT) 53H, Alanine Aminotransferase (ALT/SGPT) 48, Alkaline Phosphatase 96, Total Creatine Kinase 870H, Total Protein 6.4, Albumin 3.1L 02/03/21 02:59: Triglycerides Level 115 02/03/21 04:06: Blood Gas Puncture Site RT BRACHIAL, Blood Gas Patient Temperature 37, Arterial Blood pH 7.43, Arterial Blood Partial Pressure CO2 36, Arterial Blood Partial Pressure O2 69L, Arterial Blood HCO3 23, Arterial Blood Total CO2 24.4, Arterial Blood Oxygen Saturation 92L, Arterial Blood Base Excess -0.5, Michele Test YES- POS, Blood Gas Ventilator Setting YES, Blood Gas Inspired Oxygen 21% 02/03/21 11:10: Glucometer 93 02/03/21 18:08: Glucometer 98 Microbiology 02/02/21 Gram Stain - Final, Resulted 02/02/21 Sputum Culture - Preliminary, Resulted Staphylococcus aureus Corynebacterium pseudodiphther 02/01/21 Blood Culture - Preliminary, Resulted No growth Assessment/Plan Assessment/Plan (1) Atrial fibrillation with RVR Status: Acute Assessment & Plan: On diltiazem drip and treatment dose enoxaparin, appreciate Cardiology recommendations. (2) HTN (hypertension) Status: Chronic Assessment & Plan: Currently BP normal to low, hold home meds (had not been filled in over a month per pharmacy reconciliation) Qualifiers: Qualified Codes: I10 - Essential (primary) hypertension (3) HLD (hyperlipidemia) Status: Chronic (4) HFrEF (heart failure with reduced ejection fraction) Status: Chronic Assessment & Plan: Not taking home medications prior to admission. (5) Methamphetamine use Status: Acute Assessment & Plan: With severe agitation requiring sedation and intubation. Appreciate Pulmonology recommendations. (6) CHF (congestive heart failure) Status: Acute Assessment & Plan: Appreciate Cardiology recommendations. Qualifiers: Qualified Codes: I50.23 - Acute on chronic systolic (congestive) heart failure (7) Elevated troponin Status: Acute Assessment & Plan: Appreciate Cardiology recommendations. (8) Rhabdomyolysis Status: Acute Assessment & Plan: CK elevated but normal creatinine, follow. 02/03 improving Qualifiers: Qualified Codes: M62.82 - Rhabdomyolysis (9) Elevated d-dimer Status: Acute Assessment & Plan: CTA non-diagnostic, but on treatment dose enoxaparin for a fib. (10) Alcohol withdrawal Status: Acute Assessment & Plan: 02/03 Suspected per Pulmonology this am, started on midazolam drip, wean as able. (11) DVT prophylaxis Status: Acute Assessment & Plan: Enoxaparin treatment dose JB VALDEZ MD Feb 03, 2021 18:30
[2021-02-03 18:33] VITALS: BP 115/67
[2021-02-03 22:00] VITALS: BP 110/72
[2021-02-04 01:29] LABS: ABG BASE EXCESS -3.4 MMOL/L (-2.5-2.5); ABG OXYGEN SATURATION 91 % (94-100); ABG PCO2 33 MMHG (35-45); ABG PH 7.41 (7.37-7.43); ABG PO2 64 MMHG (79-93); ABG TCO2 21.6 MMOL/L (21.0-31.0); ALLENS TEST YES-POS
[2021-02-04 01:30] LABS: INSPIRED O2 21%; PATIENT TEMP 36.6; VENTILATOR YES
[2021-02-04 02:32] LABS: BASOPHILS % (AUTO) 0 % (0-10); EOSINOPHILS # (AUTO) 0.1 10^3/uL (0.0-0.3); EOSINOPHILS % (AUTO) 1 % (0-10); HEMATOCRIT 49 % (40-54); HEMOGLOBIN 15.3 g/dL (13.3-17.7); LYMPHOCYTES % (AUTO) 6 % (12-44); MEAN CORPUSCULAR HEMOGLOBIN 32 pg (25-34); MEAN CORPUSCULAR HGB CONC 32 g/dL (32-36); MEAN CORPUSCULAR VOLUME 100 fL (80-99); MEAN PLATELET VOLUME 11.1 fL (9.0-12.2); MONOCYTES # (AUTO) 1.3 10^3/uL (0.0-1.0); MONOCYTES % (AUTO) 9 % (0-12); NEUTROPHILS # (AUTO) 12.8 10^3/uL (1.8-7.8); NEUTROPHILS % (AUTO) 84 % (42-75); PLATELET COUNT 254 10^3/uL (130-400); WHITE BLOOD COUNT 15.3 10^3/uL (4.3-11.0)
[2021-02-04] MEDS: PROPOFOL DRIP (ICU) 100 ML IV SCH ×6 (02:33→20:11)
[2021-02-04 02:48] LABS: ANISOCYTOSIS SLIGHT; BAND NEUTROPHILS 9 %; BASOPHILS % (MANUAL) 0 %; EOSINOPHILS % (MANUAL) 0 %; LYMPHOCYTES % (MANUAL) 5 %; MONOCYTES % (MANUAL) 8 %; NEUTROPHILS % (MANUAL) 74 %; REACTIVE LYMPHOCYTES 4 %; TOXIC GRANULATION/VACUOLAZATIO 1+
[2021-02-04 02:55] LABS: BUN/CREATININE RATIO 17; CALCIUM 8.6 MG/DL (8.5-10.1); CARBON DIOXIDE 22 MMOL/L (21-32); CHLORIDE 107 MMOL/L (98-107); CREATININE SERUM 1.05 MG/DL (0.60-1.30); GFR ESTIMATED > 60; GLUCOSE 101 MG/DL (70-105); MAGNESIUM 1.8 MG/DL (1.6-2.4); PHOSPHORUS 3.2 MG/DL (2.3-4.7); POTASSIUM 4.2 MMOL/L (3.6-5.0); SODIUM 141 MMOL/L (135-145)
[2021-02-04] MEDS: MAGNESIUM 1 GM/100 ML IVPB 100 ML IV SCH (03:03)
[2021-02-04] MEDS: POTASSIUM CL 10MEQ/50ML IVPB 50 ML IV SCH (03:03)
[2021-02-04 03:04] VITALS: BP 115/57
[2021-02-04] MEDS: KCL 20 MEQ TAB (K-DUR) PO SCH (03:04)
[2021-02-04] MEDS: ENOXAPARIN 300 MG/3 ML (LOVENOX) MULTI-DOSE VIAL SQ SCH ×2 (04:58→17:16)
[2021-02-04] MEDS: VANCOMYCIN 1500 MG/NS 500 ML IVPB IV SCH ×4 (04:58→18:24)
[2021-02-04] MEDS: MULTIVIT W/MINERALS TAB (THERAGRAN M) PO SCH (04:58)
[2021-02-04] MEDS: THIAMINE 100 MG (VITAMIN B-1) TAB PO SCH (04:58)
[2021-02-04] MEDS: DexMEDEtomidine 250 ML DRIP 250 ML IV SCH ×3 (06:21→23:26)
[2021-02-04 06:26] VITALS: BP 100/66
--- NOTE | 2021-02-04 07:18 | Diagnostic Imaging Report ---
INDICATION: CHF. Intubated Upright portable chest shows heart size and vascularity to be upper normal. There is developed some left lower lobe infiltrate since 02/03/2021 study. There remains some right perihilar discoid atelectasis. There may be a small effusion on the left. IMPRESSION: There is increased opacification of the left lower lobe compared to the prior exam. Recommend followup. Dictated by: Dictated on workstation # [id number]
[2021-02-04] MEDS: PANTOPRAZOLE 40 MG (PROTONIX) VIAL IV SCH (08:32)
[2021-02-04] MEDS: ASPIRIN E.C. 81 MG (ECOTRIN) TAB PO SCH (08:32)
[2021-02-04] MEDS: DIGOXIN 0.25 MG (LANOXIN) TAB PO SCH (08:32)
[2021-02-04] MEDS: FOLIC ACID 1 MG TAB PO SCH (08:32)
--- NOTE | 2021-02-04 08:58 | Progress Note - Cardiology ---
Cardiology SOAP Progress Note Subjective: Remains intubated and sedated on the vent Objective: I&O/Vital Signs 02/04/21 02/04/21 02/04/21 02/04/21 21:00 21:45 22:00 23:00 Pulse 75 63 71 71 Resp 18 21 18 20 B/P (MAP) 126/70 (88) 127/68 (87) 128/69 (88) Pulse Ox 98 98 98 98 O2 Delivery Mechanical Ventilator Mechanical Ventilator Mechanical Ventilator O2 Flow Rate 30.00 30.00 30.00 FiO2 30 02/04/21 02/04/21 02/04/21 02/05/21 23:26 23:44 23:59 00:00 Temp 36.8 Pulse 71 67 Resp 19 B/P (MAP) 127/68 125/64 (84) Pulse Ox 97 98 O2 Delivery Mechanical Ventilator Mechanical Ventilator O2 Flow Rate 30.00 FiO2 30 02/05/21 02/05/21 02/05/21 02/05/21 01:00 01:00 02:00 02:12 Pulse 66 71 66 66 Resp 22 20 B/P (MAP) 128/68 (88) 119/61 (80) Pulse Ox 98 98 97 O2 Delivery Mechanical Ventilator Mechanical Ventilator O2 Flow Rate 30.00 30.00 FiO2 30 02/05/21 02/05/21 02/05/21 02/05/21 03:00 04:00 04:00 05:00 Pulse 66 66 71 Resp 24 24 25 B/P (MAP) 126/66 (86) 119/66 (83) 118/67 (84) Pulse Ox 95 95 97 97 O2 Delivery Mechanical Ventilator Mechanical Ventilator Mechanical Ventilator Mechanical Ventilator O2 Flow Rate 30.00 30.00 30.00 FiO2 30 02/05/21 02/05/21 02/05/21 02/05/21 05:37 05:38 06:00 06:55 Pulse 66 66 76 71 Resp 21 B/P (MAP) 119/66 119/66 117/72 (87) Pulse Ox 98 98 O2 Delivery Mechanical Ventilator O2 Flow Rate 30.00 FiO2 30 02/05/21 02/05/21 02/05/21 08:39 08:41 08:49 Temp 37.6 Pulse 71 B/P (MAP) 114/65 Pulse Ox 95 O2 Delivery Mechanical Ventilator FiO2 30 02/05/21 00:00 Intake Total 540 ml Output Total 625 ml Balance -85 ml Constitutional: other (on mech vent) Respiratory: No accessory muscle use; other (good bilateral air entry) Cardiovascular: regular rate-rhythm, S1 and S2, systolic murmur (soft JEFFREY at card base) Gastrointestional: soft; No guarding, No rebound; audible bowel sounds Extremities: No clubbing, No cyanosis, No significant edema Neurologic/Psychiatric: other (on mech vent, not able to cooperate with a neuro exam) Skin: No rash on exposed areas, No ulcerations on exposed areas Results/Procedures: Labs Laboratory Tests 02/04/21 10:12: Lactic Acid Level 1.28 02/04/21 11:33: Glucometer 107 02/04/21 18:39: Glucometer 109 02/04/21 23:30: Glucometer 101 02/05/21 03:35: Blood Gas Puncture Site R RADIAL, Blood Gas Patient Temperature 37.1, Arterial Blood pH 7.46H, Arterial Blood Partial Pressure CO2 37, Arterial Blood Partial Pressure O2 53L, Arterial Blood HCO3 26, Arterial Blood Total CO2 26.8, Arterial Blood Oxygen Saturation 88L, Arterial Blood Base Excess 2.1, Michele Test YES-POS, Blood Gas Ventilator Setting YES, Blood Gas Inspired Oxygen NA 02/05/21 04:10: White Blood Count 14.0H, Red Blood Count 4.61, Hemoglobin 14.5, Hematocrit 47, Mean Corpuscular Volume 103H, Mean Corpuscular Hemoglobin 32, Mean Corpuscular Hemoglobin Concent 31L, Red Cell Distribution Width 14.2, Platelet Count 210, Mean Platelet Volume 11.0, Immature Granulocyte % (Auto) 1, Neutrophils (%) (Auto) 80H, Lymphocytes (%) (Auto) 7L, Monocytes (%) (Auto) 10, Eosinophils (%) (Auto) 2, Basophils (%) (Auto) 0, Neutrophils # (Auto) 11.3H, Lymphocytes # (Auto) 1.0, Monocytes # (Auto) 1.4H, Eosinophils # (Auto) 0.3, Basophils # (Auto) 0.0, Immature Granulocyte # (Auto) 0.1, Sodium Level 141, Potassium Level 4.4, Chloride Level 110H, Carbon Dioxide Level 21, Anion Gap 10, Blood Urea Nitrogen 19H, Creatinine 0.82, Estimat Glomerular Filtration Rate > 60, BUN/Creatinine Ratio 23, Glucose Level 100, Calcium Level 8.9, Phosphorus Level 2.4, Magnesium Level 1.8, Triglycerides Level 113, Vancomycin Level Trough 12.8 Microbiology 02/02/21 Gram Stain - Final, Complete 02/02/21 Sputum Culture - Final, Complete Staphylococcus aureus Corynebacterium pseudodiphther Usual upper respiratory travis 02/01/21 Blood Culture - Preliminary, Resulted No growth A/P: Assessment: Ac resp failure, likely related to methamphetamine abuse Persistent atrial fib/flutter - rate controlled Dilated cardiomyopathy with mild acute systolic congestive heart failure: EF 30- 35 percent. Non-compliance with treatment (including beta-ryan, NOLVIA-inhib, oral anticoag, and ext defib vest, all of which he was d/c'd on in Nov 2020) Hypertension, by history Hyperlipidemia, by history Methamphetamine use Plan: * Complex management * Continue to treat heart rate with iv dilt * Enoxaparin sc for stroke prevention * Monitor labs * Will attempt oral meds once he is off ventilator * Management of amphetamine use and withdrawal is by the Medical services ANN RHOADES Feb 04, 2021 08:58
[2021-02-04 09:45] VITALS: BP 101/63
--- NOTE | 2021-02-04 13:45 | Progress Note - Cardiology ---
Cardiology SOAP Progress Note Subjective: Still on mech vent and unresponsive Objective: I&O/Vital Signs 02/04/21 02/04/21 02/04/21 02/04/21 02:00 02:33 03:00 03:04 Pulse 67 77 69 Resp 26 24 23 B/P (MAP) 103/68 (80) 107/60 115/57 (76) Pulse Ox 93 94 93 O2 Delivery Mechanical Ventilator Mechanical Ventilator O2 Flow Rate 21.00 21.00 FiO2 21 02/04/21 02/04/21 02/04/21 02/04/21 03:07 03:26 04:00 04:58 Temp 36.6 Pulse 69 Resp 24 B/P (MAP) 109/56 (73) 113/67 Pulse Ox 93 93 O2 Delivery Mechanical Ventilator Mechanical Ventilator O2 Flow Rate 21.00 FiO2 21 02/04/21 02/04/21 02/04/21 02/04/21 05:00 06:00 06:21 06:26 Pulse 66 69 68 71 Resp 23 19 30 B/P (MAP) 105/64 (78) 105/63 (77) Pulse Ox 93 92 93 O2 Delivery Mechanical Ventilator Mechanical Ventilator O2 Flow Rate 21.00 21.00 FiO2 21 02/04/21 02/04/21 02/04/21 02/04/21 06:54 07:00 07:40 08:00 Temp 36.6 Pulse 76 72 71 Resp 28 B/P (MAP) 101/62 (75) 104/68 (80) Pulse Ox 93 94 O2 Delivery Mechanical Ventilator Mechanical Ventilator O2 Flow Rate 21.00 21.00 02/04/21 02/04/21 02/04/21 02/04/21 08:30 09:00 09:09 09:45 Pulse 67 73 69 Resp 32 30 B/P (MAP) 99/63 (75) 99/63 Pulse Ox 94 94 94 O2 Delivery Mechanical Ventilator Mechanical Ventilator O2 Flow Rate 21.00 FiO2 21 02/04/21 02/04/21 02/04/21 02/04/21 10:00 11:00 11:26 11:50 Temp 36.2 Pulse 70 70 Resp 31 30 B/P (MAP) 109/65 (80) 110/68 (82) Pulse Ox 93 93 94 O2 Delivery Mechanical Ventilator Mechanical Ventilator Mechanical Ventilator O2 Flow Rate 21.00 21.00 FiO2 21 02/04/21 02/04/21 12:00 12:34 Pulse 73 69 Resp 30 B/P (MAP) 108/71 (83) Pulse Ox 93 O2 Delivery Mechanical Ventilator O2 Flow Rate 21.00 02/04/21 00:00 Intake Total 2070 ml Output Total 900 ml Balance 1170 ml Constitutional: other (on mech vent) Respiratory: No accessory muscle use; other (good bilateral air entry) Cardiovascular: regular rate-rhythm, S1 and S2, systolic murmur (soft JEFFREY at card base) Gastrointestional: soft; No guarding, No rebound; audible bowel sounds Extremities: No clubbing, No cyanosis, No significant edema Neurologic/Psychiatric: other (on mech vent, not able to cooperate with a neuro exam) Skin: No rash on exposed areas, No ulcerations on exposed areas Results/Procedures: Labs Laboratory Tests 02/03/21 18:08: Glucometer 98 02/03/21 23:07: Glucometer 101 02/04/21 01:20: Blood Gas Puncture Site R RAD, Blood Gas Patient Temperature 36.6, Arterial Blood pH 7.41, Arterial Blood Partial Pressure CO2 33L, Arterial Blood Partial Pressure O2 64L, Arterial Blood HCO3 21L, Arterial Blood Total CO2 21.6, Arterial Blood Oxygen Saturation 91L, Arterial Blood Base Excess -3.4L, Michele Test YES-POS, Blood Gas Ventilator Setting YES, Blood Gas Inspired Oxygen 21% 02/04/21 02:00: White Blood Count 15.3H, Red Blood Count 4.85, Hemoglobin 15.3, Hematocrit 49, Mean Corpuscular Volume 100H, Mean Corpuscular Hemoglobin 32, Mean Corpuscular Hemoglobin Concent 32, Red Cell Distribution Width 14.0, Platelet Count 254, Mean Platelet Volume 11.1, Immature Granulocyte % (Auto) 1, Neutrophils (%) (Auto) 84H, Lymphocytes (%) (Auto) 6L, Monocytes (%) (Auto) 9, Eosinophils (%) (Auto) 1, Basophils (%) (Auto) 0, Neutrophils # (Auto) 12.8H, Lymphocytes # (Auto) 1.0, Monocytes # (Auto) 1.3H, Eosinophils # (Auto) 0.1, Basophils # (Auto) 0.0, Immature Granulocyte # (Auto) 0.1, Neutrophils % (Manual) 74, Lymphocytes % (Manual) 5, Monocytes % (Manual) 8, Eosinophils % (Manual) 0, Basophils % (Manual) 0, Band Neutrophils 9, Reactive Lymphocytes 4, Toxic Granulation 1+, Anisocytosis SLIGHT, Sodium Level 141, Potassium Level 4.2, Chloride Level 107, Carbon Dioxide Level 22, Anion Gap 12, Blood Urea Nitrogen 18, Creatinine 1.05, Estimat Glomerular Filtration Rate > 60, BUN/Creatinine Ratio 17, Glucose Level 101, Calcium Level 8.6, Phosphorus Level 3.2, Magnesium Level 1.8, Procalcitonin 0.75H 02/04/21 10:12: Lactic Acid Level 1.28 02/04/21 11:33: Glucometer 107 Microbiology 02/02/21 Gram Stain - Final, Resulted 02/02/21 Sputum Culture - Preliminary, Resulted Staphylococcus aureus Corynebacterium pseudodiphther Usual upper respiratory travis 02/01/21 Blood Culture - Preliminary, Resulted No growth Laboratory Tests 02/03/21 02:55 02/04/21 02:00 A/P: Assessment: Ac resp failure, likely related to methamphetamine abuse Persistent atrial fib/flutter - rate controlled Dilated cardiomyopathy with mild acute systolic congestive heart failure: EF 30- 35 percent. Non-compliance with treatment (including beta-ryan, NOLVIA-inhib, oral anticoag, and ext defib vest, all of which he was d/c'd on in Nov 2020) Hypertension, by history Hyperlipidemia, by history Plan: * Complex management * Continue to treat heart rate with iv dilt * Enoxaparin sc for stroke prevention * Monitor labs * Parenteral meds while he is on the vent * Management of amphetamine use and withdrawal is by the Medical services SAVI SILVA MD FACP FAC CCDS Feb 04, 2021 13:45
--- NOTE | 2021-02-04 13:51 | Progress Note ---
Subjective Subjective/Events-last exam Afebrile, had increasing leukocytosis and elevated procalcitonin, [facility] started vancomycin yesterday evening. Focused Exam Lactate Level 02/04/21 10:12: Lactic Acid Level 1.28 Lactic Acid Level Laboratory Tests Test 02/04/21 10:12 Lactic Acid Level 1.28 MMOL/L (0.50-2.00) Objective Exam Last Set of Vital Signs Vital Signs Date Time Temp Pulse Resp B/P (MAP) Pulse Ox O2 Delivery O2 Flow Rate FiO2 02/04/21 13:48 70 108/74 02/04/21 12:00 30 93 Mechanical Ventilator 21.00 02/04/21 11:50 36.2 02/04/21 11:26 21 Capillary Refill : Less Than 3 Seconds I&O Intake and Output 02/04/21 00:00 Intake Total 2640 ml Output Total 2225 ml Balance 415 ml Intake Oral 0 ml IV Total 2520 ml Tube Feeding 120 ml Output Urine Total 975 ml Gastric Drainage Total 1250 ml General: Other (sedated, intubated) Lungs: Other (ronchi) Heart: Other (irregular rhythm, normal rate) Abdomen: Normal Bowel Sounds, Soft Extremities: No Edema Results/Procedures Lab Laboratory Tests 02/03/21 18:08: Glucometer 98 02/03/21 23:07: Glucometer 101 02/04/21 01:20: Blood Gas Puncture Site R RAD, Blood Gas Patient Temperature 36.6, Arterial Blood pH 7.41, Arterial Blood Partial Pressure CO2 33L, Arterial Blood Partial Pressure O2 64L, Arterial Blood HCO3 21L, Arterial Blood Total CO2 21.6, Arterial Blood Oxygen Saturation 91L, Arterial Blood Base Excess -3.4L, Michele Test YES-POS, Blood Gas Ventilator Setting YES, Blood Gas Inspired Oxygen 21% 02/04/21 02:00: White Blood Count 15.3H, Red Blood Count 4.85, Hemoglobin 15.3, Hematocrit 49, Mean Corpuscular Volume 100H, Mean Corpuscular Hemoglobin 32, Mean Corpuscular Hemoglobin Concent 32, Red Cell Distribution Width 14.0, Platelet Count 254, Mean Platelet Volume 11.1, Immature Granulocyte % (Auto) 1, Neutrophils (%) (Auto) 84H, Lymphocytes (%) (Auto) 6L, Monocytes (%) (Auto) 9, Eosinophils (%) (Auto) 1, Basophils (%) (Auto) 0, Neutrophils # (Auto) 12.8H, Lymphocytes # (Auto) 1.0, Monocytes # (Auto) 1.3H, Eosinophils # (Auto) 0.1, Basophils # (Auto) 0.0, Immature Granulocyte # (Auto) 0.1, Neutrophils % (Manual) 74, Lymphocytes % (Manual) 5, Monocytes % (Manual) 8, Eosinophils % (Manual) 0, Basophils % (Manual) 0, Band Neutrophils 9, Reactive Lymphocytes 4, Toxic Granul ation 1+, Anisocytosis SLIGHT, Sodium Level 141, Potassium Level 4.2, Chloride Level 107, Carbon Dioxide Level 22, Anion Gap 12, Blood Urea Nitrogen 18, Creatinine 1.05, Estimat Glomerular Filtration Rate > 60, BUN/Creatinine Ratio 17, Glucose Level 101, Calcium Level 8.6, Phosphorus Level 3.2, Magnesium Level 1.8, Procalcitonin 0.75H 02/04/21 10:12: Lactic Acid Level 1.28 02/04/21 11:33: Glucometer 107 Microbiology 02/02/21 Gram Stain - Final, Resulted 02/02/21 Sputum Culture - Preliminary, Resulted Staphylococcus aureus Corynebacterium pseudodiphther Usual upper respiratory travis 02/01/21 Blood Culture - Preliminary, Resulted No growth Assessment/Plan Assessment/Plan (1) Atrial fibrillation with RVR Status: Acute Assessment & Plan: On diltiazem drip and treatment dose enoxaparin, appreciate Cardiology recommendations. (2) HTN (hypertension) Status: Chronic Assessment & Plan: Currently BP normal to low, hold home meds (had not been filled in over a month per pharmacy reconciliation) Qualifiers: Qualified Codes: I10 - Essential (primary) hypertension (3) HLD (hyperlipidemia) Status: Chronic (4) HFrEF (heart failure with reduced ejection fraction) Status: Chronic Assessment & Plan: Not taking home medications prior to admission. (5) Methamphetamine use Status: Acute Assessment & Plan: With severe agitation requiring sedation and intubation. Appreciate Pulmonology recommendations. (6) CHF (congestive heart failure) Status: Acute Assessment & Plan: Appreciate Cardiology recommendations. Qualifiers: Qualified Codes: I50.23 - Acute on chronic systolic (congestive) heart failure (7) Elevated troponin Status: Acute Assessment & Plan: Appreciate Cardiology recommendations. (8) Rhabdomyolysis Status: Acute Assessment & Plan: CK elevated but normal creatinine, follow. 02/03 improving Qualifiers: Qualified Codes: M62.82 - Rhabdomyolysis (9) Elevated d-dimer Status: Acute Assessment & Plan: CTA non-diagnostic, but on treatment dose enoxaparin for a fib. (10) Alcohol withdrawal Status: Acute Assessment & Plan: 02/03 Suspected per Pulmonology this am, started on midazolam drip, wean as able. 02/04 continue midazolam today, anticipate likely wean tomorrow (11) MRSA pneumonia Status: Acute Assessment & Plan: Vancomycin Qualifiers: Qualified Codes: J15.212 - Pneumonia due to methicillin resistant Staphylococcus aureus (12) DVT prophylaxis Status: Acute Assessment & Plan: Enoxaparin treatment dose JB VALDEZ MD Feb 04, 2021 13:51
[2021-02-04 14:02] VITALS: BP 110/70
[2021-02-04] MEDS: dilTIAZem DRIP PRE-MIX 125 ML IV SCH (14:35)
[2021-02-04 18:26] VITALS: BP 113/79
[2021-02-04] MEDS ORDERED: NS IV 1000 ML 500 ML IV SCH (18:30)
[2021-02-04] MEDS: MIDAZOLAM DRIP PRE-MIX 100 ML IV SCH (20:09)
[2021-02-04 21:45] VITALS: BP 122/68
[2021-02-04] MEDS: NS IV 1000 ML 1,000 ML IV SCH (23:38)
[2021-02-05 02:12] VITALS: BP 115/65
[2021-02-05 03:50] LABS: ABG BASE EXCESS 2.1 MMOL/L (-2.5-2.5); ABG OXYGEN SATURATION 88 % (94-100); ABG PCO2 37 MMHG (35-45); ABG PH 7.46 (7.37-7.43); ABG PO2 53 MMHG (79-93); ABG TCO2 26.8 MMOL/L (21.0-31.0)
[2021-02-05 04:02] LABS: ALLENS TEST YES-POS
[2021-02-05 04:03] LABS: PATIENT TEMP 37.1; VENTILATOR YES
[2021-02-05 04:28] LABS: BASOPHILS % (AUTO) 0 % (0-10); EOSINOPHILS # (AUTO) 0.3 10^3/uL (0.0-0.3); EOSINOPHILS % (AUTO) 2 % (0-10); HEMATOCRIT 47 % (40-54); HEMOGLOBIN 14.5 g/dL (13.3-17.7); LYMPHOCYTES % (AUTO) 7 % (12-44); MEAN CORPUSCULAR HEMOGLOBIN 32 pg (25-34); MEAN CORPUSCULAR HGB CONC 31 g/dL (32-36); MEAN CORPUSCULAR VOLUME 103 fL (80-99); MONOCYTES # (AUTO) 1.4 10^3/uL (0.0-1.0); MONOCYTES % (AUTO) 10 % (0-12); NEUTROPHILS # (AUTO) 11.3 10^3/uL (1.8-7.8); NEUTROPHILS % (AUTO) 80 % (42-75); PLATELET COUNT 210 10^3/uL (130-400)
[2021-02-05 04:46] LABS: BUN/CREATININE RATIO 23; CALCIUM 8.9 MG/DL (8.5-10.1); CARBON DIOXIDE 21 MMOL/L (21-32); CHLORIDE 110 MMOL/L (98-107); CREATININE SERUM 0.82 MG/DL (0.60-1.30); GFR ESTIMATED > 60; GLUCOSE 100 MG/DL (70-105); MAGNESIUM 1.8 MG/DL (1.6-2.4); PHOSPHORUS 2.4 MG/DL (2.3-4.7); POTASSIUM 4.4 MMOL/L (3.6-5.0); SODIUM 141 MMOL/L (135-145); TRIGLYCERIDES 113 MG/DL (<150)
[2021-02-05 04:55] LABS: VANCOMYCIN,TROUGH 12.8 UG/ML (10.0-20.0)
[2021-02-05] MEDS ORDERED: TROUGH ORDER-PHARMACY XX NR (05:00)
[2021-02-05] MEDS: ENOXAPARIN 300 MG/3 ML (LOVENOX) MULTI-DOSE VIAL SQ SCH ×2 (05:37→17:54)
[2021-02-05] MEDS: PROPOFOL DRIP (ICU) 100 ML IV SCH ×3 (05:37→19:39)
[2021-02-05] MEDS: MAGNESIUM 1 GM/100 ML IVPB 100 ML IV SCH (06:12)
[2021-02-05] MEDS: POTASSIUM CL 10MEQ/50ML IVPB 50 ML IV SCH (06:12)
[2021-02-05] MEDS: KCL 20 MEQ TAB (K-DUR) PO SCH (06:12)
[2021-02-05] MEDS: MULTIVIT W/MINERALS TAB (THERAGRAN M) PO SCH (06:32)
[2021-02-05] MEDS: VANCOMYCIN 1500 MG/NS 500 ML IVPB IV SCH ×4 (06:32→17:54)
[2021-02-05 06:55] VITALS: BP 116/73
--- NOTE | 2021-02-05 07:21 | Diagnostic Imaging Report ---
EXAMINATION: Chest 1 view HISTORY: Ventilator, A-fib COMPARISON: Chest radiograph 02/04/2021 FINDINGS: Stable appearance of the cardiac silhouette. Medical support lines and tubes are unchanged. Stable low lung volumes with patchy interstitial and airspace opacities throughout both lungs greatest within the lung bases. No pleural effusion or pneumothorax The osseous structures are intact. IMPRESSION: 1. Stable low lung volumes with bibasilar patchy interstitial and airspace opacities. Dictated by: Dictated on workstation # [id number]
[2021-02-05] MEDS ORDERED: ASPIRIN 81 MG CHEW (CHILDREN'S ASA) ONE (08:24)
[2021-02-05] MEDS: DexMEDEtomidine 250 ML DRIP 250 ML IV SCH ×3 (08:49→21:19)
[2021-02-05] MEDS: FOLIC ACID 1 MG TAB PO SCH (08:49)
[2021-02-05] MEDS: PANTOPRAZOLE 40 MG (PROTONIX) VIAL IV SCH (08:49)
[2021-02-05] MEDS: ASPIRIN 81 MG CHEW (CHILDREN'S ASA) PO SCH (08:49)
[2021-02-05] MEDS: DIGOXIN 0.25 MG (LANOXIN) TAB PO SCH (08:49)
--- NOTE | 2021-02-05 09:00 | Progress Note - Cardiology ---
Cardiology SOAP Progress Note Subjective: Remains intubated and sedated Objective: I&O/Vital Signs 02/05/21 02/05/21 02/05/21 02/06/21 22:56 23:00 23:03 00:00 Temp 37.0 Pulse 70 76 Resp 26 25 B/P (MAP) 115/70 (85) 119/74 (89) Pulse Ox 97 99 97 O2 Delivery Mechanical Ventilator Mechanical Ventilator Mechanical Ventilator O2 Flow Rate 25.00 25.00 FiO2 25 02/06/21 02/06/21 02/06/21 02/06/21 01:00 01:00 02:00 02:10 Pulse 71 76 70 72 Resp 26 B/P (MAP) 115/79 (91) 121/76 (91) Pulse Ox 97 96 97 O2 Delivery Mechanical Ventilator Mechanical Ventilator O2 Flow Rate 25.00 25.00 FiO2 25 02/06/21 02/06/21 02/06/21 02/06/21 02:38 03:00 03:12 03:53 Temp 36.6 Pulse 73 73 Resp 24 B/P (MAP) 127/81 (96) Pulse Ox 97 99 O2 Delivery Mechanical Ventilator Mechanical Ventilator O2 Flow Rate 25.00 FiO2 25 02/06/21 02/06/21 02/06/21 02/06/21 04:00 05:00 06:00 06:52 Pulse 70 66 75 71 Resp 23 26 B/P (MAP) 125/82 (96) 128/87 (101) 131/85 (100) Pulse Ox 96 97 97 96 O2 Delivery Mechanical Ventilator Mechanical Ventilator Mechanical Ventilator O2 Flow Rate 25.00 25.00 25.00 FiO2 25 02/06/21 02/06/21 02/06/21 02/06/21 07:00 07:00 07:13 07:17 Temp 38.7 Pulse 72 75 Resp 27 B/P (MAP) 130/79 (96) Pulse Ox 95 97 O2 Delivery Mechanical Ventilator Mechanical Ventilator O2 Flow Rate 25.00 FiO2 25 02/06/21 02/06/21 02/06/21 02/06/21 07:52 08:00 08:51 09:00 Temp 38.9 Pulse 71 72 72 Resp 26 B/P (MAP) 131/89 136/87 (103) 135/80 (98) Pulse Ox 97 96 O2 Delivery Mechanical Ventilator Mechanical Ventilator O2 Flow Rate 25.00 25.00 02/06/21 02/06/21 02/06/21 02/06/21 10:00 10:00 10:20 10:25 Temp 38.7 Pulse 71 71 72 Resp 14 14 27 B/P (MAP) 137/71 (93) 137/71 (93) Pulse Ox 96 96 96 O2 Delivery Mechanical Ventilator Mechanical Ventilator O2 Flow Rate 25.00 25.00 FiO2 25 02/06/21 00:00 Intake Total 860 ml Output Total 390 ml Balance 470 ml Constitutional: other (on mech vent) Respiratory: No accessory muscle use; other (good bilateral air entry) Cardiovascular: regular rate-rhythm, S1 and S2, systolic murmur (soft JEFFREY at card base) Gastrointestional: soft; No guarding, No rebound; audible bowel sounds Extremities: No clubbing, No cyanosis, No significant edema Neurologic/Psychiatric: other (on mech vent, not able to cooperate with a neuro exam) Skin: No rash on exposed areas, No ulcerations on exposed areas Results/Procedures: Labs Laboratory Tests 02/05/21 11:50: Glucometer 90 02/05/21 18:17: Glucometer 97 02/05/21 22:57: Glucometer 101 02/06/21 02:10: Blood Gas Puncture Site RIGHT RADIAL, Blood Gas Patient Temperature 36.6, Arterial Blood pH 7.43, Arterial Blood Partial Pressure CO2 33L, Arterial Blood Partial Pressure O2 66L, Arterial Blood HCO3 21L, Arterial Blood Total CO2 22.5, Arterial Blood Oxygen Saturation 95, Arterial Blood Base Excess -2.3, Michele Test YES-POS, Blood Gas Ventilator Setting YES, Blood Gas Inspired Oxygen 25% 02/06/21 03:05: White Blood Count 13.3H, Red Blood Count 4.37, Hemoglobin 13.6, Hematocrit 45, Mean Corpuscular Volume 103H, Mean Corpuscular Hemoglobin 31, Mean Corpuscular Hemoglobin Concent 30L, Red Cell Distribution Width 14.4, Platelet Count 214, Mean Platelet Volume 11.3, Immature Granulocyte % (Auto) 1, Neutrophils (%) (Auto) 80H, Lymphocytes (%) (Auto) 7L, Monocytes (%) (Auto) 11, Eosinophils (%) (Auto) 1, Basophils (%) (Auto) 0, Neutrophils # (Auto) 10.6H, Lymphocytes # (Auto) 1.0, Monocytes # (Auto) 1.5H, Eosinophils # (Auto) 0.2, Basophils # (Auto) 0.0, Immature Granulocyte # (Auto) 0.1, Sodium Level 140, Potassium Level 4.2, Chloride Level 110H, Carbon Dioxide Level 19L, Anion Gap 11, Blood Urea Nitrogen 19H, Creatinine 0.82, Estimat Glomerular Filtration Rate > 60, BUN/ Creatinine Ratio 23, Glucose Level 114H, Calcium Level 8.7, Phosphorus Level 2.4, Magnesium Level 1.8 Microbiology 02/04/21 Blood Culture - Preliminary, Resulted No growth 02/02/21 Gram Stain - Final, Complete 02/02/21 Sputum Culture - Final, Complete Staphylococcus aureus Corynebacterium pseudodiphther Usual upper respiratory travis A/P: Assessment: Ac resp failure, likely related to methamphetamine abuse Persistent atrial fib/flutter - rate controlled Dilated cardiomyopathy with mild acute systolic congestive heart failure: EF 30- 35 percent. Non-compliance with treatment (including beta-ryan, NOLVIA-inhib, oral anticoag, and ext defib vest, all of which he was d/c'd on in Nov 2020) Hypertension, by history Hyperlipidemia, by history Plan: * Complex management * Continue to treat heart rate with iv dilt * Enoxaparin sc for stroke prevention * Monitor labs * Parenteral meds while he is on the vent * Management of amphetamine use and withdrawal is by the Medical services ANN RHOADES Feb 05, 2021 09:00
[2021-02-05 09:42] VITALS: BP 118/66
--- NOTE | 2021-02-05 11:15 | Progress Note ---
Subjective Subjective/Events-last exam Afebrile, no acute events. Remains intubated and sedated. Focused Exam Lactate Level 02/04/21 10:12: Lactic Acid Level 1.28 Objective Exam Last Set of Vital Signs Vital Signs Date Time Temp Pulse Resp B/P (MAP) Pulse Ox O2 Delivery O2 Flow Rate FiO2 02/05/21 11:00 70 21 120/72 (88) 98 Mechanical Ventilator 30.00 02/05/21 09:42 30 02/05/21 08:41 37.6 Capillary Refill : Less Than 3 Seconds I&O Intake and Output 02/05/21 00:00 Intake Total 1110 ml Output Total 1520 ml Balance -410 ml Intake Oral 0 ml IV Total 800 ml Tube Feeding 250 ml Other 60 ml Output Urine Total 695 ml Gastric Drainage Total 825 ml General: Other (intubated, sedated) Lungs: Clear to Auscultation Heart: Other (irregularly irregular) Abdomen: Normal Bowel Sounds, Soft Extremities: No Edema Results/Procedures Lab Laboratory Tests 02/04/21 11:33: Glucometer 107 02/04/21 18:39: Glucometer 109 02/04/21 23:30: Glucometer 101 02/05/21 03:35: Blood Gas Puncture Site R RADIAL, Blood Gas Patient Temperature 37.1, Arterial Blood pH 7.46H, Arterial Blood Partial Pressure CO2 37, Arterial Blood Partial Pressure O2 53L, Arterial Blood HCO3 26, Arterial Blood Total CO2 26.8, Arterial Blood Oxygen Saturation 88L, Arterial Blood Base Excess 2.1, Michele Test YES-POS, Blood Gas Ventilator Setting YES, Blood Gas Inspired Oxygen NA 02/05/21 04:10: White Blood Count 14.0H, Red Blood Count 4.61, Hemoglobin 14.5, Hematocrit 47, Mean Corpuscular Volume 103H, Mean Corpuscular Hemoglobin 32, Mean Corpuscular Hemoglobin Concent 31L, Red Cell Distribution Width 14.2, Platelet Count 210, Mean Platelet Volume 11.0, Immature Granulocyte % (Auto) 1, Neutrophils (%) (Auto) 80H, Lymphocytes (%) (Auto) 7L, Monocytes (%) (Auto) 10, Eosinophils (%) (Auto) 2, Basophils (%) (Auto) 0, Neutrophils # (Auto) 11.3H, Lymphocytes # (Auto) 1.0, Monocytes # (Auto) 1.4H, Eosinophils # (Auto) 0.3, Basophils # (Auto) 0.0, Immature Granulocyte # (Auto) 0.1, Sodium Level 141, Potassium Level 4.4, Chloride Level 110H, Carbon Dioxide Level 21, Anion Gap 10, Blood Urea Nitrogen 19H, Creatinine 0.82, Estimat Glomerular Filtration Rate > 60, BUN/Creatinine Ratio 23, Glucose Level 100, Calcium Level 8.9, Phosphorus Level 2.4, Magnesium Level 1.8, Triglycerides Level 113, Vancomycin Level Trough 12.8 Microbiology 02/02/21 Gram Stain - Final, Complete 02/02/21 Sputum Culture - Final, Complete Staphylococcus aureus Corynebacterium pseudodiphther Usual upper respiratory travis 02/01/21 Blood Culture - Preliminary, Resulted No growth Assessment/Plan Assessment/Plan (1) Atrial fibrillation with RVR Status: Acute Assessment & Plan: On diltiazem drip and treatment dose enoxaparin, appreciate Cardiology recommendations. (2) HTN (hypertension) Status: Chronic Assessment & Plan: Currently BP normal to low, hold home meds (had not been filled in over a month per pharmacy reconciliation) Qualifiers: Qualified Codes: I10 - Essential (primary) hypertension (3) HLD (hyperlipidemia) Status: Chronic (4) HFrEF (heart failure with reduced ejection fraction) Status: Chronic Assessment & Plan: Not taking home medications prior to admission. (5) Methamphetamine use Status: Acute Assessment & Plan: With severe agitation requiring sedation and intubation. Appreciate Pulmonology recommendations. (6) CHF (congestive heart failure) Status: Acute Assessment & Plan: Appreciate Cardiology recommendations. Qualifiers: Qualified Codes: I50.23 - Acute on chronic systolic (congestive) heart failure (7) Elevated troponin Status: Acute Assessment & Plan: Appreciate Cardiology recommendations. (8) Rhabdomyolysis Status: Acute Assessment & Plan: CK elevated but normal creatinine, follow. 02/03 improving Qualifiers: Qualified Codes: M62.82 - Rhabdomyolysis (9) Elevated d-dimer Status: Acute Assessment & Plan: CTA non-diagnostic, but on treatment dose enoxaparin for a fib. (10) Alcohol withdrawal Status: Acute Assessment & Plan: 02/03 Suspected per Pulmonology this am, started on midazolam drip, wean as able. 02/04 continue midazolam today, anticipate likely wean tomorrow 02/05 weaning today, monitor closely (11) MRSA pneumonia Status: Acute Assessment & Plan: Vancomycin Qualifiers: Qualified Codes: J15.212 - Pneumonia due to methicillin resistant Staphylococcus aureus (12) DVT prophylaxis Status: Acute Assessment & Plan: Enoxaparin treatment dose JB VALDEZ MD Feb 05, 2021 11:14
[2021-02-05] MEDS: LORazepam INJ 2 MG/ML (ATIVAN) VIAL IV PRN ×2 (12:42→13:41)
[2021-02-05] MEDS: dilTIAZem DRIP PRE-MIX 125 ML IV SCH (12:43)
[2021-02-05] MEDS: ACETAMINOPHEN 500 MG TAB (TYLENOL) NG PRN (12:43)
[2021-02-05 13:52] VITALS: BP 130/81
[2021-02-05 18:27] VITALS: BP 133/83
[2021-02-05 22:15] VITALS: BP 129/80
[2021-02-05] MEDS: NS IV 1000 ML 1,000 ML IV SCH (22:55)
[2021-02-06] MEDS: NS IV 1000 ML 1,000 ML IV SCH (00:39)
[2021-02-06 02:10] VITALS: BP 126/76
[2021-02-06 02:16] LABS: ABG BASE EXCESS -2.3 MMOL/L (-2.5-2.5); ABG OXYGEN SATURATION 95 % (94-100); ABG PCO2 33 MMHG (35-45); ABG PH 7.43 (7.37-7.43); ABG PO2 66 MMHG (79-93); ABG TCO2 22.5 MMOL/L (21.0-31.0)
[2021-02-06 02:21] LABS: ALLENS TEST YES-POS; INSPIRED O2 25%; PATIENT TEMP 36.6; VENTILATOR YES
[2021-02-06] MEDS: DexMEDEtomidine 250 ML DRIP 250 ML IV SCH ×4 (02:38→20:57)
[2021-02-06 03:23] LABS: BASOPHILS % (AUTO) 0 % (0-10); EOSINOPHILS # (AUTO) 0.2 10^3/uL (0.0-0.3); EOSINOPHILS % (AUTO) 1 % (0-10); HEMATOCRIT 45 % (40-54); HEMOGLOBIN 13.6 g/dL (13.3-17.7); LYMPHOCYTES % (AUTO) 7 % (12-44); MEAN CORPUSCULAR HEMOGLOBIN 31 pg (25-34); MEAN CORPUSCULAR HGB CONC 30 g/dL (32-36); MEAN CORPUSCULAR VOLUME 103 fL (80-99); MEAN PLATELET VOLUME 11.3 fL (9.0-12.2); MONOCYTES # (AUTO) 1.5 10^3/uL (0.0-1.0); MONOCYTES % (AUTO) 11 % (0-12); NEUTROPHILS # (AUTO) 10.6 10^3/uL (1.8-7.8); NEUTROPHILS % (AUTO) 80 % (42-75); PLATELET COUNT 214 10^3/uL (130-400); WHITE BLOOD COUNT 13.3 10^3/uL (4.3-11.0)
[2021-02-06 03:43] LABS: BUN/CREATININE RATIO 23; CALCIUM 8.7 MG/DL (8.5-10.1); CARBON DIOXIDE 19 MMOL/L (21-32); CHLORIDE 110 MMOL/L (98-107); CREATININE SERUM 0.82 MG/DL (0.60-1.30); GFR ESTIMATED > 60; GLUCOSE 114 MG/DL (70-105); MAGNESIUM 1.8 MG/DL (1.6-2.4); PHOSPHORUS 2.4 MG/DL (2.3-4.7); POTASSIUM 4.2 MMOL/L (3.6-5.0); SODIUM 140 MMOL/L (135-145)
[2021-02-06] MEDS: POTASSIUM CL 10MEQ/50ML IVPB 50 ML IV SCH (03:48)
[2021-02-06] MEDS: MAGNESIUM 1 GM/100 ML IVPB 100 ML IV SCH (03:48)
[2021-02-06] MEDS: KCL 20 MEQ TAB (K-DUR) PO SCH (03:48)
[2021-02-06] MEDS: VANCOMYCIN 1500 MG/NS 500 ML IVPB IV SCH ×4 (04:43→18:14)
[2021-02-06] MEDS: ENOXAPARIN 300 MG/3 ML (LOVENOX) MULTI-DOSE VIAL SQ SCH ×2 (04:43→16:55)
[2021-02-06] MEDS: MULTIVIT W/MINERALS TAB (THERAGRAN M) PO SCH (05:31)
[2021-02-06 06:52] VITALS: BP 130/79
--- NOTE | 2021-02-06 07:37 | Diagnostic Imaging Report ---
Reason for examination: Shortness of breath. Semiupright AP portable chest was obtained and compared to 02/05/2021. ET tube tip is at the inferior margin of the clavicles. NG tube in the left upper quadrant. Cardiomediastinal silhouette is not enlarged and similar to yesterday. Continued findings of bibasilar atelectasis versus infiltrate with no significant change. No pneumothorax. IMPRESSION: 1. Bibasilar atelectasis versus infiltrate without much overall change since yesterday. No pneumothorax. Dictated by: Dictated on workstation # [id number]
[2021-02-06] MEDS: ACETAMINOPHEN 500 MG TAB (TYLENOL) NG PRN (07:51)
[2021-02-06] MEDS: ASPIRIN 81 MG CHEW (CHILDREN'S ASA) PO SCH (07:52)
[2021-02-06] MEDS: DIGOXIN 0.25 MG (LANOXIN) TAB PO SCH (07:53)
[2021-02-06] MEDS: PANTOPRAZOLE 40 MG (PROTONIX) VIAL IV SCH (07:53)
[2021-02-06] MEDS: FOLIC ACID 1 MG TAB PO SCH (07:53)
[2021-02-06] MEDS: LORazepam INJ 2 MG/ML (ATIVAN) VIAL IV PRN ×3 (07:54→12:52)
[2021-02-06] MEDS ORDERED: WATER IV SCH (09:19)
[2021-02-06] MEDS ORDERED: AZTREONAM IV SCH (09:19)
[2021-02-06 10:20] VITALS: BP 145/84
[2021-02-06] MEDS: AZTREONAM 2 GM/NS 100 ML IVPB IV SCH ×4 (10:24→18:46)
--- NOTE | 2021-02-06 10:38 | Progress Note - Cardiology ---
Cardiology SOAP Progress Note Subjective: Intubated and sedated Objective: I&O/Vital Signs 02/08/21 02/08/21 02/08/21 02/08/21 22:00 22:03 23:00 23:51 Pulse 108 118 B/P (MAP) 121/100 (107) 149/97 (114) Pulse Ox 96 98 97 O2 Delivery Nasal Cannula Nasal Cannula Nasal Cannula O2 Flow Rate 4.00 4.00 4.00 4.00 02/09/21 02/09/21 02/09/21 02/09/21 00:00 00:39 00:40 01:00 Temp 36.6 Pulse 123 116 B/P (MAP) 158/97 (117) Pulse Ox 96 O2 Delivery Nasal Cannula Room Air O2 Flow Rate 4.00 02/09/21 02/09/21 02/09/21 02/09/21 01:37 02:00 03:00 04:00 Pulse 121 106 B/P (MAP) 134/91 (105) 138/104 (115) Pulse Ox 92 92 97 O2 Delivery Room Air Room Air Nasal Cannula O2 Flow Rate 21.00 4.00 02/09/21 02/09/21 02/09/21 02/09/21 04:00 05:00 06:00 07:00 Pulse 112 102 95 118 B/P (MAP) 153/96 (115) 145/92 (109) Pulse Ox 94 94 94 O2 Delivery Room Air Room Air Room Air 02/09/21 07:10 Pulse 116 Resp 20 B/P (MAP) 143/93 (110) Pulse Ox 93 O2 Delivery Room Air 02/09/21 00:00 Intake Total 0 ml Output Total 1850 ml Balance -1850 ml Constitutional: other (on mech vent) Respiratory: No accessory muscle use; other (good bilateral air entry) Cardiovascular: regular rate-rhythm, S1 and S2, systolic murmur (soft JEFFREY at card base) Gastrointestional: soft; No guarding, No rebound; audible bowel sounds Genital/Rectal: other (urinary catheter to DD - dark arsh with sediment) Extremities: No clubbing, No cyanosis, No significant edema Neurologic/Psychiatric: other (on mech vent, not able to cooperate with a neuro exam) Skin: No rash on exposed areas, No ulcerations on exposed areas Results/Procedures: Labs Laboratory Tests 02/08/21 12:15: Glucometer 91 02/08/21 16:46: Glucometer 101 02/09/21 03:08: White Blood Count 15.3H, Red Blood Count 4.53, Hemoglobin 14.0, Hematocrit 46, Mean Corpuscular Volume 101H, Mean Corpuscular Hemoglobin 31, Mean Corpuscular Hemoglobin Concent 31L, Red Cell Distribution Width 14.5, Platelet Count 302, Mean Platelet Volume 11.8, Immature Granulocyte % (Auto) 1, Neutrophils (%) (Auto) 86H, Lymphocytes (%) (Auto) 6L, Monocytes (%) (Auto) 7, Eosinophils (%) (Auto) 0, Basophils (%) (Auto) 0, Neutrophils # (Auto) 13.2H, Lymphocytes # (Auto) 0.9L, Monocytes # (Auto) 1.1H, Eosinophils # (Auto) 0.0, Basophils # (Auto) 0.0, Immature Granulocyte # (Auto) 0.1, Sodium Level 146H, Potassium Level 4.0, Chloride Level 109H, Carbon Dioxide Level 22, Anion Gap 15H, Blood Urea Nitrogen 21H, Creatinine 0.81, Estimat Glomerular Filtration Rate > 60, BUN/Creatinine Ratio 26, Glucose Level 97, Calcium Level 9.3, Phosphorus Level 3.6, Magnesium Level 1.9 Microbiology 02/06/21 Urine Culture - Final, Complete NO GROWTH 02/06/21 Gram Stain - Final, Complete 02/06/21 Sputum Culture - Final, Complete Staphylococcus aureus 02/04/21 Blood Culture - Preliminary, Resulted No growth A/P: Assessment: Ac resp failure, likely related to methamphetamine abuse Persistent atrial fib/flutter - rate controlled Dilated cardiomyopathy with mild acute systolic congestive heart failure: EF 30- 35 percent. Non-compliance with treatment (including beta-ryan, NOLVIA-inhib, oral anticoag, and ext defib vest, all of which he was d/c'd on in Nov 2020) Hypertension, by history Hyperlipidemia, by history Plan: * Complex management * Continue to treat heart rate with iv dilt * Enoxaparin sc for stroke prevention * Monitor labs * Parenteral meds while he is on the vent * Management of amphetamine use and withdrawal is by the Medical services ANN RHOADES Feb 06, 2021 10:38
[2021-02-06] MEDS: dilTIAZem DRIP PRE-MIX 125 ML IV SCH (12:00)
--- NOTE | 2021-02-06 12:33 | Progress Note ---
Subjective Subjective/Events-last exam Afebrile, opens eyes to name this morning, on sedation vacation. Still very diaphoretic. Focused Exam Lactate Level 02/04/21 10:12: Lactic Acid Level 1.28 Objective Exam Last Set of Vital Signs Vital Signs Date Time Temp Pulse Resp B/P (MAP) Pulse Ox O2 Delivery O2 Flow Rate FiO2 02/06/21 12:00 72 26 137/93 (108) 97 Mechanical Ventilator 25.00 02/06/21 11:59 25 02/06/21 10:25 38.7 Capillary Refill : Less Than 3 Seconds I&O Intake and Output 02/06/21 00:00 Intake Total 1695 ml Output Total 840 ml Balance 855 ml Intake Oral 0 ml IV Total 965 ml Tube Feeding 670 ml Other 60 ml Output Urine Total 840 ml General: Alert, No Acute Distress Lungs: Clear to Auscultation, Normal Air Movement Heart: Other (irregularly irregular) Abdomen: Normal Bowel Sounds, Soft Extremities: No Edema Results/Procedures Lab Laboratory Tests 02/05/21 18:17: Glucometer 97 02/05/21 22:57: Glucometer 101 02/06/21 02:10: Blood Gas Puncture Site RIGHT RADIAL, Blood Gas Patient Temperature 36.6, Arterial Blood pH 7.43, Arterial Blood Partial Pressure CO2 33L, Arterial Blood Partial Pressure O2 66L, Arterial Blood HCO3 21L, Arterial Blood Total CO2 22.5, Arterial Blood Oxygen Saturation 95, Arterial Blood Base Excess -2.3, Michele Test YES-POS, Blood Gas Ventilator Setting YES, Blood Gas Inspired Oxygen 25% 02/06/21 03:05: White Blood Count 13.3H, Red Blood Count 4.37, Hemoglobin 13.6, Hematocrit 45, Mean Corpuscular Volume 103H, Mean Corpuscular Hemoglobin 31, Mean Corpuscular Hemoglobin Concent 30L, Red Cell Distribution Width 14.4, Platelet Count 214, Mean Platelet Volume 11.3, Immature Granulocyte % (Auto) 1, Neutrophils (%) (Auto) 80H, Lymphocytes (%) (Auto) 7L, Monocytes (%) (Auto) 11, Eosinophils (%) (Auto) 1, Basophils (%) (Auto) 0, Neutrophils # (Auto) 10.6H, Lymphocytes # (Auto) 1.0, Monocytes # (Auto) 1.5H, Eosinophils # (Auto) 0.2, Basophils # (Auto) 0.0, Immature Granulocyte # (Auto) 0.1, Sodium Level 140, Potassium Level 4.2, Chloride Level 110H, Carbon Dioxide Level 19L, Anion Gap 11, Blood Urea Nitrogen 19H, Creatinine 0.82, Estimat Glomerular Filtration Rate > 60, BUN/Creatinine Ratio 23, Glucose Level 114H, Calcium Level 8.7, Phosphorus Level 2.4, Magnesium Level 1.8 02/06/21 11:58: Glucometer 116H Microbiology 02/04/21 Blood Culture - Preliminary, Resulted No growth 02/02/21 Gram Stain - Final, Complete 02/02/21 Sputum Culture - Final, Complete Staphylococcus aureus Corynebacterium pseudodiphther Usual upper respiratory travis Assessment/Plan Assessment/Plan (1) Atrial fibrillation with RVR Status: Acute Assessment & Plan: On diltiazem drip and treatment dose enoxaparin, appreciate Cardiology recommendations. (2) HTN (hypertension) Status: Chronic Assessment & Plan: Currently BP normal to low, hold home meds (had not been filled in over a month per pharmacy reconciliation) 02/06 Trended up last , continue monitor and resume meds as needed Qualifiers: Qualified Codes: I10 - Essential (primary) hypertension (3) HLD (hyperlipidemia) Status: Chronic (4) HFrEF (heart failure with reduced ejection fraction) Status: Chronic Assessment & Plan: Not taking home medications prior to admission. (5) Methamphetamine use Status: Acute Assessment & Plan: With severe agitation requiring sedation and intubation. Appreciate Pulmonology recommendations. (6) CHF (congestive heart failure) Status: Acute Assessment & Plan: Appreciate Cardiology recommendations. Qualifiers: Qualified Codes: I50.23 - Acute on chronic systolic (congestive) heart failure (7) Elevated troponin Status: Acute Assessment & Plan: Appreciate Cardiology recommendations. (8) Rhabdomyolysis Status: Acute Assessment & Plan: CK elevated but normal creatinine, follow. 02/03 improving Qualifiers: Qualified Codes: M62.82 - Rhabdomyolysis (9) Elevated d-dimer Status: Acute Assessment & Plan: CTA non-diagnostic, but on treatment dose enoxaparin for a fib. (10) Alcohol withdrawal Status: Acute Assessment & Plan: 02/03 Suspected per Pulmonology this am, started on midazolam drip, wean as able. 4/28 continue midazolam today, anticipate likely wean tomorrow 02/05 weaning today, monitor closely 02/06 still remains significantly diaphoretic, appreciate Paula ICU assistance in tapering drips (11) MRSA pneumonia Status: Acute Assessment & Plan: Vancomycin Qualifiers: Qualified Codes: J15.212 - Pneumonia due to methicillin resistant Staphylococcus aureus (12) DVT prophylaxis Status: Acute Assessment & Plan: Enoxaparin treatment dose JB VALDEZ MD Feb 06, 2021 12:33
[2021-02-06 13:42] VITALS: BP 134/91
[2021-02-06] MEDS ORDERED: ALBUMIN 25% 25 GM/100 ML 50 ML IV ONE (16:30)
[2021-02-06] MEDS: PROPOFOL DRIP (ICU) 100 ML IV SCH ×2 (16:56→23:35)
--- NOTE | 2021-02-06 18:13 | Progress Note - Cardiology ---
Cardiology SOAP Progress Note Subjective: Still intubated, on mech vent, unresponsive Objective: I&O/Vital Signs 02/06/21 02/06/21 02/06/21 02/06/21 06:52 07:00 07:00 07:13 Temp 38.7 Pulse 71 72 75 Resp 26 27 B/P (MAP) 130/79 (96) Pulse Ox 96 95 O2 Delivery Mechanical Ventilator O2 Flow Rate 25.00 FiO2 25 02/06/21 02/06/21 02/06/21 02/06/21 07:17 07:52 08:00 08:51 Temp 38.9 Pulse 71 72 Resp 25 B/P (MAP) 131/89 136/87 (103) Pulse Ox 97 97 O2 Delivery Mechanical Ventilator Mechanical Ventilator O2 Flow Rate 25.00 FiO2 25 02/06/21 02/06/21 02/06/21 02/06/21 09:00 10:00 10:00 10:20 Pulse 72 71 71 72 Resp 26 14 14 27 B/P (MAP) 135/80 (98) 137/71 (93) 137/71 (93) Pulse Ox 96 96 96 96 O2 Delivery Mechanical Ventilator Mechanical Ventilator Mechanical Ventilator O2 Flow Rate 25.00 25.00 25.00 FiO2 25 02/06/21 02/06/21 02/06/21 02/06/21 10:25 11:00 11:59 12:00 Temp 38.7 Pulse 68 72 Resp 22 26 B/P (MAP) 158/89 (112) 137/93 (108) Pulse Ox 97 97 97 O2 Delivery Mechanical Ventilator Mechanical Ventilator Mechanical Ventilator O2 Flow Rate 25.00 25.00 FiO2 25 02/06/21 02/06/21 02/06/21 02/06/21 13:00 13:00 13:42 14:00 Pulse 72 69 72 76 Resp 22 25 24 B/P (MAP) 139/88 (105) 134/86 (102) Pulse Ox 96 96 97 O2 Delivery Mechanical Ventilator Mechanical Ventilator O2 Flow Rate 25.00 25.00 FiO2 25 02/06/21 02/06/21 02/06/21 02/06/21 15:00 15:02 15:44 16:00 Pulse 76 80 70 Resp 17 30 B/P (MAP) 141/80 (100) 141/80 109/99 (102) Pulse Ox 97 95 97 O2 Delivery Mechanical Ventilator Mechanical Ventilator Mechanical Ventilator O2 Flow Rate 25.00 25.00 FiO2 25 02/06/21 02/06/21 02/06/21 16:56 17:00 18:00 Pulse 67 70 72 Resp 29 24 B/P (MAP) 141/92 143/91 (108) 142/92 (109) Pulse Ox 96 96 O2 Delivery Mechanical Ventilator Mechanical Ventilator O2 Flow Rate 25.00 25.00 02/06/21 00:00 Intake Total 860 ml Output Total 390 ml Balance 470 ml Constitutional: other (on mech vent) Respiratory: No accessory muscle use; other (good bilateral air entry) Cardiovascular: regular rate-rhythm, S1 and S2, systolic murmur (soft JEFFREY at card base) Gastrointestional: soft; No guarding, No rebound; audible bowel sounds Genital/Rectal: other (urinary catheter to DD - dark arsh with sediment) Extremities: No clubbing, No cyanosis, No significant edema Neurologic/Psychiatric: other (on mech vent, not able to cooperate with a neuro exam) Skin: No rash on exposed areas, No ulcerations on exposed areas Results/Procedures: Labs Laboratory Tests 02/05/21 18:17: Glucometer 97 02/05/21 22:57: Glucometer 101 02/06/21 02:10: Blood Gas Puncture Site RIGHT RADIAL, Blood Gas Patient Temperature 36.6, Arterial Blood pH 7.43, Arterial Blood Partial Pressure CO2 33L, Arterial Blood Partial Pressure O2 66L, Arterial Blood HCO3 21L, Arterial Blood Total CO2 22.5, Arterial Blood Oxygen Saturation 95, Arterial Blood Base Excess -2.3, Michele Test YES-POS, Blood Gas Ventilator Setting YES, Blood Gas Inspired Oxygen 25% 02/06/21 03:05: White Blood Count 13.3H, Red Blood Count 4.37, Hemoglobin 13.6, Hematocrit 45, Mean Corpuscular Volume 103H, Mean Corpuscular Hemoglobin 31, Mean Corpuscular Hemoglobin Concent 30L, Red Cell Distribution Width 14.4, Platelet Count 214, Mean Platelet Volume 11.3, Immature Granulocyte % (Auto) 1, Neutrophils (%) (Auto) 80H, Lymphocytes (%) (Auto) 7L, Monocytes (%) (Auto) 11, Eosinophils (%) (Auto) 1, Basophils (%) (Auto) 0, Neutrophils # (Auto) 10.6H, Lymphocytes # (Auto) 1.0, Monocytes # (Auto) 1.5H, Eosinophils # (Auto) 0.2, Basophils # (Auto) 0.0, Immature Granulocyte # (Auto) 0.1, Sodium Level 140, Potassium Level 4.2, Chloride Level 110H, Carbon Dioxide Level 19L, Anion Gap 11, Blood Urea Nitrogen 19H, Creatinine 0.82, Estimat Glomerular Filtration Rate > 60, BUN/Creatinine Ratio 23, Glucose Level 114H, Calcium Level 8.7, Phosphorus Level 2.4, Magnesium Level 1.8 02/06/21 11:58: Glucometer 116H 02/06/21 17:48: Glucometer 113H Microbiology 02/04/21 Blood Culture - Preliminary, Resulted No growth 02/02/21 Gram Stain - Final, Complete 02/02/21 Sputum Culture - Final, Complete Staphylococcus aureus Corynebacterium pseudodiphther Usual upper respiratory travis A/P: Assessment: Ac resp failure, likely related to methamphetamine abuse, managed by ICU and Hospitalist services Persistent atrial fib/flutter - rate controlled Dilated cardiomyopathy with mild acute systolic congestive heart failure: EF 30- 35 percent. Non-compliance with treatment (including beta-ryan, NOLVIA-inhib, oral anticoag, and ext defib vest, all of which he was d/c'd on in Nov 2020) Hypertension, by history Hyperlipidemia, by history Plan: * Complex management * Continue to treat heart rate with dilt * Enoxaparin sc for stroke prevention * Monitor labs * Parenteral meds while he is on the vent * Management of amphetamine use and withdrawal is by the Medical services SAVI SILVA MD FACP [facility] Feb 06, 2021 18:13
[2021-02-06 18:39] VITALS: BP 126/92
[2021-02-06 20:46] VITALS: BP 134/83
[2021-02-07 01:16] VITALS: BP 141/93
[2021-02-07] MEDS: AZTREONAM 2 GM/NS 100 ML IVPB IV SCH ×6 (03:10→20:30)
[2021-02-07] MEDS: DexMEDEtomidine 250 ML DRIP 250 ML IV SCH ×4 (03:11→21:34)
[2021-02-07 03:46] LABS: ABG BASE EXCESS -3.4 MMOL/L (-2.5-2.5); ABG OXYGEN SATURATION 94 % (94-100); ABG PCO2 38 MMHG (35-45); ABG PH 7.36 (7.37-7.43); ABG PO2 78 MMHG (79-93); ABG TCO2 21.8 MMOL/L (21.0-31.0)
[2021-02-07 03:46] LABS: BASOPHILS % (AUTO) 0 % (0-10); EOSINOPHILS # (AUTO) 0.2 10^3/uL (0.0-0.3); EOSINOPHILS % (AUTO) 2 % (0-10); HEMATOCRIT 44 % (40-54); HEMOGLOBIN 13.4 g/dL (13.3-17.7); LYMPHOCYTES # (AUTO) 1.2 10^3/uL (1.0-4.0); LYMPHOCYTES % (AUTO) 11 % (12-44); MEAN CORPUSCULAR HEMOGLOBIN 31 pg (25-34); MEAN CORPUSCULAR HGB CONC 31 g/dL (32-36); MEAN CORPUSCULAR VOLUME 103 fL (80-99); MEAN PLATELET VOLUME 11.4 fL (9.0-12.2); MONOCYTES # (AUTO) 1.7 10^3/uL (0.0-1.0); MONOCYTES % (AUTO) 15 % (0-12); NEUTROPHILS # (AUTO) 8.3 10^3/uL (1.8-7.8); NEUTROPHILS % (AUTO) 72 % (42-75); PLATELET COUNT 232 10^3/uL (130-400); WHITE BLOOD COUNT 11.4 10^3/uL (4.3-11.0)
[2021-02-07 03:48] LABS: ALLENS TEST YES-POS; INSPIRED O2 21%; PATIENT TEMP 38.7; VENTILATOR YES
[2021-02-07 04:04] LABS: BUN/CREATININE RATIO 24; CALCIUM 8.7 MG/DL (8.5-10.1); CARBON DIOXIDE 21 MMOL/L (21-32); CHLORIDE 113 MMOL/L (98-107); CREATININE SERUM 0.84 MG/DL (0.60-1.30); GFR ESTIMATED > 60; GLUCOSE 104 MG/DL (70-105); MAGNESIUM 1.9 MG/DL (1.6-2.4); PHOSPHORUS 2.6 MG/DL (2.3-4.7); POTASSIUM 4.5 MMOL/L (3.6-5.0); SODIUM 144 MMOL/L (135-145)
[2021-02-07] MEDS: ENOXAPARIN 300 MG/3 ML (LOVENOX) MULTI-DOSE VIAL SQ SCH ×2 (05:50→15:37)
[2021-02-07] MEDS: VANCOMYCIN 1500 MG/NS 500 ML IVPB IV SCH ×4 (05:50→17:48)
[2021-02-07] MEDS: POTASSIUM CL 10MEQ/50ML IVPB 50 ML IV SCH (05:58)
[2021-02-07] MEDS: MAGNESIUM 1 GM/100 ML IVPB 100 ML IV SCH (05:58)
[2021-02-07] MEDS: KCL 20 MEQ TAB (K-DUR) PO SCH (05:59)
[2021-02-07] MEDS: MULTIVIT W/MINERALS TAB (THERAGRAN M) PO SCH (06:36)
[2021-02-07] MEDS: MIDAZOLAM DRIP PRE-MIX 100 ML IV SCH (06:37)
[2021-02-07 07:02] VITALS: BP 103/76
[2021-02-07] MEDS: ASPIRIN 81 MG CHEW (CHILDREN'S ASA) PO SCH (08:19)
[2021-02-07] MEDS: PANTOPRAZOLE 40 MG (PROTONIX) VIAL IV SCH (08:19)
[2021-02-07] MEDS: DIGOXIN 0.25 MG (LANOXIN) TAB PO SCH (08:19)
[2021-02-07] MEDS: FOLIC ACID 1 MG TAB PO SCH (08:19)
--- NOTE | 2021-02-07 09:17 | Diagnostic Imaging Report ---
Indication: Dyspnea. Comparison: 02/06/2021. Discussion: Single portable upright view of the chest was obtained. Endotracheal tube and enteric tube are stable. Cardiomegaly is stable. Worsening bilateral mixed interstitial and alveolar infiltrates, likely worsening pulmonary edema or atypical pneumonia. Small left pleural effusion is stable. No pneumothorax or osseous abnormality. Impression: 1. Cardiomegaly with worsening bilateral infiltrates. Dictated by: Dictated on workstation # [id number]
[2021-02-07] MEDS: PROPOFOL DRIP (ICU) 100 ML IV SCH ×2 (09:59→14:03)
[2021-02-07 10:02] VITALS: BP 118/79
--- NOTE | 2021-02-07 11:18 | Progress Note - Hospitalist ---
Subjective HPI/CC On Admission Date Seen by Provider: February 07, 2021 Time Seen by Provider: 11:15 CC: AF RVR with meth use HPI: This is a 40yoWM with known AF who moved back from [facility] who presented to the ER with palpitations and found to have AF w/RVR and elevated troponin with BNP. Placed in ICU and patient had such aggressiveness from the meth use and thrashing around he was intubate after conscious sedation initiated to keep from harming self and others. Subjective/Events-last exam Patient sedated on vent. Nursing staff state that yesterday he was off sedation for 4 hours became agitated was not responding with anything intelligible and was placed back on sedation. Objective Exam Vital Signs Vital Signs Date Time Temp Pulse Resp B/P (MAP) Pulse Ox O2 Delivery O2 Flow Rate FiO2 02/07/21 10:02 72 25 98 30 02/07/21 10:00 118/79 (92) Mechanical Ventilator 25.00 02/07/21 08:19 37.0 Capillary Refill : Less Than 3 Seconds General Appearance: No Apparent Distress Respiratory: Other (Slightly coarse breath sounds on mechanical ventilation with reported fair amount of nonpurulent secretions no focal consolidative findings noted no wheezing.) Cardiovascular: No Murmur, Irregularly Irregular Extremity: Normal Capillary Refill, Normal Inspection, No Pedal Edema Results/Procedures Lab Laboratory Tests 02/07/21 03:35 Patient resulted labs reviewed. Assessment/Plan Assessment and Plan Assess & Plan/Chief Complaint 1. 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 2. Atrial fibrillation with relatively controlled ventricular response reportedly chronic. 3. Dilated cardiomyopathy likely meth related congestive heart failure appears to be compensated at this time defer to cardiology. JOHNNY ANDERS MD February 07, 2021 11:18
[2021-02-07] MEDS: dilTIAZem DRIP PRE-MIX 125 ML IV SCH (12:26)
--- NOTE | 2021-02-07 13:24 | Progress Note - Cardiology ---
Cardiology SOAP Progress Note Subjective: On mech vent, unresponsive Objective: I&O/Vital Signs 02/07/21 02/07/21 02/07/21 02/07/21 02:00 03:00 03:11 03:18 Pulse 73 72 72 Resp 22 20 B/P (MAP) 133/76 (95) 136/80 (98) 130/78 Pulse Ox 97 97 95 O2 Delivery Mechanical Ventilator Mechanical Ventilator Mechanical Ventilator O2 Flow Rate 25.00 25.00 FiO2 25 02/07/21 02/07/21 02/07/21 02/07/21 04:00 04:00 05:00 06:00 Temp 38.7 Pulse 73 69 71 Resp 19 B/P (MAP) 120/80 (93) 124/85 (98) 124/83 (97) Pulse Ox 97 96 96 O2 Delivery Mechanical Ventilator Mechanical Ventilator Mechanical Ventilator O2 Flow Rate 25.00 25.00 25.00 02/07/21 02/07/21 02/07/21 02/07/21 06:37 07:00 07:00 07:02 Pulse 71 71 71 73 Resp 21 B/P (MAP) 119/82 103/76 (85) Pulse Ox 94 98 O2 Delivery Mechanical Ventilator O2 Flow Rate 25.00 FiO2 25 02/07/21 02/07/21 02/07/21 02/07/21 08:00 08:00 08:19 09:00 Temp 37.0 Pulse 70 71 Resp 19 B/P (MAP) 122/82 (95) 111/78 (89) Pulse Ox 97 92 95 O2 Delivery Mechanical Ventilator Mechanical Ventilator Mechanical Ventilator O2 Flow Rate 25.00 25.00 FiO2 25 02/07/21 02/07/21 02/07/21 02/07/21 09:59 10:00 10:00 10:02 Pulse 73 73 72 72 Resp 25 B/P (MAP) 118/79 (92) Pulse Ox 99 98 O2 Delivery Mechanical Ventilator O2 Flow Rate 25.00 FiO2 30 02/07/21 02/07/21 02/07/21 02/07/21 11:00 12:00 12:00 12:00 Temp 37.4 Pulse 73 71 Resp 24 18 B/P (MAP) 128/82 (97) 135/81 (99) Pulse Ox 98 96 92 O2 Delivery Mechanical Ventilator Mechanical Ventilator Mechanical Ventilator O2 Flow Rate 25.00 25.00 FiO2 25 5/1/21 13:00 Pulse 71 02/07/21 00:00 Intake Total 1335 ml Output Total 230 ml Balance 1105 ml Constitutional: other (on mech vent) Respiratory: No accessory muscle use; other (good bilateral air entry) Cardiovascular: regular rate-rhythm, S1 and S2, systolic murmur (soft JEFFREY at card base) Gastrointestional: soft; No guarding, No rebound; audible bowel sounds Genital/Rectal: other (urinary catheter to DD - dark arsh with sediment) Extremities: No clubbing, No cyanosis, No significant edema Neurologic/Psychiatric: other (on mech vent, not able to cooperate with a neuro exam) Skin: No rash on exposed areas, No ulcerations on exposed areas Results/Procedures: Labs Laboratory Tests 02/06/21 17:48: Glucometer 113H 02/07/21 01:41: Glucometer 96 02/07/21 03:35: White Blood Count 11.4H, Red Blood Count 4.29L, Hemoglobin 13.4, Hematocrit 44, Mean Corpuscular Volume 103H, Mean Corpuscular Hemoglobin 31, Mean Corpuscular Hemoglobin Concent 31L, Red Cell Distribution Width 14.9H, Platelet Count 232, Mean Platelet Volume 11.4, Immature Granulocyte % (Auto) 1, Neutrophils (%) (Auto) 72, Lymphocytes (%) (Auto) 11L, Monocytes (%) (Auto) 15H, Eosinophils (%) (Auto) 2, Basophils (%) (Auto) 0, Neutrophils # (Auto) 8.3H, Lymphocytes # (Auto) 1.2, Monocytes # (Auto) 1.7H, Eosinophils # (Auto) 0.2, Basophils # (Auto) 0.0, Immature Granulocyte # (Auto) 0.1, Sodium Level 144, Potassium Level 4.5, Chloride Level 113H, Carbon Dioxide Level 21, Anion Gap 10, Blood Urea Nitrogen 20H, Creatinine 0.84, Estimat Glomerular Filtration Rate > 60, BUN/Creatinine Ratio 24, Glucose Level 104, Calcium Level 8.7, Phosphorus Level 2.6, Magnesium Level 1.9 02/07/21 03:39: Blood Gas Puncture Site RT BRACHIAL, Blood Gas Patient Temperature 38.7, Arterial Blood pH 7.36L, Arterial Blood Partial Pressure CO2 38, Arterial Blood Partial Pressure O2 78L, Arterial Blood HCO3 21L, Arterial Blood Total CO2 21.8, Arterial Blood Oxygen Saturation 94, Arterial Blood Base Excess -3.4L, Michele Test YES-POS, Blood Gas Ventilator Setting YES, Blood Gas Inspired Oxygen 21% 02/07/21 11:55: Glucometer 114H Microbiology 02/06/21 Gram Stain - Final, Resulted 02/06/21 Sputum Culture - Preliminary, Resulted Staphylococcus aureus 02/04/21 Blood Culture - Preliminary, Resulted No growth Laboratory Tests 02/06/21 03:05 02/07/21 03:35 A/P: Assessment: Ac resp failure, likely related to methamphetamine abuse, managed by ICU and Hospitalist services Persistent atrial fib/flutter - rate controlled (on dig via NGT) Dilated cardiomyopathy with acute systolic congestive heart failure: EF 30-35 percent. Wosening infiltrates on CXR of 02/07/30 Non-compliance with treatment (including beta-ryan, NOLVIA-inhib, oral anticoag, and ext defib vest, all of which he was d/c'd on in Nov 2020) Hypertension, by history Hyperlipidemia, by history Plan: * Complex management * Worsening infiltrates on CXR may be indicative of CHF. Add iv diuretics. Check BNP * Continue to treat heart rate with dig. Check dig level * Enoxaparin sc for stroke prevention * Monitor labs SAVI SILVA MD FACP FAC CCDS February 07, 2021 13:24
[2021-02-07] MEDS ORDERED: FUROSEMIDE 40 MG/4 ML INJ (LASIX) IVP ONE (13:30)
[2021-02-07] MEDS ORDERED: POTASSIUM BICARB 20 MEQ (EFFER-K) TABLET PO ONE (13:35)
[2021-02-07 14:13] VITALS: BP 129/88
[2021-02-07] MEDS: NS IV 1000 ML 1,000 ML IV SCH (15:39)
[2021-02-07 18:39] VITALS: BP 122/65
[2021-02-07 22:44] VITALS: BP 124/65
[2021-02-08 02:42] VITALS: BP 142/82
[2021-02-08 03:27] LABS: BASOPHILS # (AUTO) 0.1 10^3/uL (0.0-0.1); BASOPHILS % (AUTO) 0 % (0-10); EOSINOPHILS # (AUTO) 0.4 10^3/uL (0.0-0.3); EOSINOPHILS % (AUTO) 3 % (0-10); HEMATOCRIT 44 % (40-54); HEMOGLOBIN 13.4 g/dL (13.3-17.7); LYMPHOCYTES # (AUTO) 1.5 10^3/uL (1.0-4.0); LYMPHOCYTES % (AUTO) 13 % (12-44); MEAN CORPUSCULAR HEMOGLOBIN 31 pg (25-34); MEAN CORPUSCULAR HGB CONC 30 g/dL (32-36); MEAN CORPUSCULAR VOLUME 101 fL (80-99); MEAN PLATELET VOLUME 11.3 fL (9.0-12.2); MONOCYTES # (AUTO) 1.5 10^3/uL (0.0-1.0); MONOCYTES % (AUTO) 13 % (0-12); NEUTROPHILS # (AUTO) 8.1 10^3/uL (1.8-7.8); NEUTROPHILS % (AUTO) 70 % (42-75); PLATELET COUNT 259 10^3/uL (130-400); WHITE BLOOD COUNT 11.5 10^3/uL (4.3-11.0)
[2021-02-08 03:39] LABS: BUN/CREATININE RATIO 23; CALCIUM 8.8 MG/DL (8.5-10.1); CARBON DIOXIDE 24 MMOL/L (21-32); CHLORIDE 110 MMOL/L (98-107); CREATININE SERUM 0.87 MG/DL (0.60-1.30); GFR ESTIMATED > 60; GLUCOSE 105 MG/DL (70-105); PHOSPHORUS 2.9 MG/DL (2.3-4.7); POTASSIUM 4.1 MMOL/L (3.6-5.0); SODIUM 144 MMOL/L (135-145)
[2021-02-08 03:49] LABS: VANCOMYCIN,TROUGH 13.5 UG/ML (10.0-20.0)
[2021-02-08] MEDS: PROPOFOL DRIP (ICU) 100 ML IV SCH ×3 (04:52→19:46)
[2021-02-08] MEDS: DexMEDEtomidine 250 ML DRIP 250 ML IV SCH (04:52)
[2021-02-08 04:59] LABS: ABG BASE EXCESS -1.9 MMOL/L (-2.5-2.5); ABG OXYGEN SATURATION 91 % (94-100); ABG PCO2 39 MMHG (35-45); ABG PH 7.38 (7.37-7.43); ABG PO2 61 MMHG (79-93); ABG TCO2 23.4 MMOL/L (21.0-31.0)
[2021-02-08] MEDS ORDERED: TROUGH ORDER-PHARMACY XX ONE (05:00)
[2021-02-08 05:08] LABS: ALLENS TEST YES-POS; INSPIRED O2 21%; PATIENT TEMP 37.7; VENTILATOR YES
[2021-02-08] MEDS: ENOXAPARIN 300 MG/3 ML (LOVENOX) MULTI-DOSE VIAL SQ SCH ×2 (05:44→16:03)
[2021-02-08] MEDS: AZTREONAM 2 GM/NS 100 ML IVPB IV SCH ×6 (05:45→18:19)
[2021-02-08] MEDS: POTASSIUM CL 10MEQ/50ML IVPB 50 ML IV SCH (06:08)
[2021-02-08] MEDS: KCL 20 MEQ TAB (K-DUR) PO SCH (06:08)
[2021-02-08] MEDS: MAGNESIUM 1 GM/100 ML IVPB 100 ML IV SCH (06:08)
[2021-02-08 06:21] VITALS: BP 145/89
[2021-02-08] MEDS: MULTIVIT W/MINERALS TAB (THERAGRAN M) PO SCH (06:46)
[2021-02-08] MEDS: VANCOMYCIN 1500 MG/NS 500 ML IVPB IV SCH ×2 (06:46)
[2021-02-08] MEDS ORDERED: POTASSIUM BICARB 20 MEQ (EFFER-K) TABLET PO SCH (07:00)
[2021-02-08] MEDS: PANTOPRAZOLE 40 MG (PROTONIX) VIAL IV SCH (07:31)
[2021-02-08] MEDS: FOLIC ACID 1 MG TAB PO SCH (07:32)
[2021-02-08] MEDS: DIGOXIN 0.25 MG (LANOXIN) TAB PO SCH (07:32)
[2021-02-08] MEDS: FUROSEMIDE 40 MG/4 ML INJ (LASIX) IVP SCH (07:32)
[2021-02-08] MEDS: ASPIRIN 81 MG CHEW (CHILDREN'S ASA) PO SCH (07:32)
--- NOTE | 2021-02-08 08:11 | Diagnostic Imaging Report ---
Indication: Dyspnea. Comparison: 02/07/2021. Discussion: Single portable upright view of the chest was obtained. Low lung volumes. Borderline cardiomegaly is stable. Endotracheal tube and enteric tube are stable. Infiltrates are again noted within the lungs, not significantly changed given differences in technique and positioning. This could be seen with pneumonia or failure. Probable effusions are stable. No pneumothorax. Impression: 1. Essentially stable chest as described given differences in position. Dictated by: Dictated on workstation # [id number]
[2021-02-08 08:52] VITALS: BP 124/101
[2021-02-08] MEDS: dilTIAZem DRIP PRE-MIX 125 ML IV SCH (11:31)
--- NOTE | 2021-02-08 12:39 | Progress Note - Hospitalist ---
Subjective HPI/CC On Admission Date Seen by Provider: February 08, 2021 Time Seen by Provider: 07:30 CC: AF RVR with meth use HPI: This is a 40yoWM with known AF who moved back from [facility] who presented to the ER with palpitations and found to have AF w/RVR and elevated troponin with BNP. Placed in ICU and patient had such aggressiveness from the meth use and thrashing around he was intubate after conscious sedation initiated to keep from harming self and others. Subjective/Events-last exam Patient off sedation eyes open following simple commands without agitation doing well on pressure support trial currently. Does not appear to be in acute distress. Objective Exam Vital Signs Vital Signs Date Time Temp Pulse Resp B/P (MAP) Pulse Ox O2 Delivery O2 Flow Rate FiO2 02/08/21 12:00 120 24 123/95 (104) 99 Nasal Cannula 4.00 02/08/21 08:52 30 02/08/21 07:40 38.1 Capillary Refill : Less Than 3 Seconds General Appearance: No Apparent Distress Respiratory: No Accessory Muscle Use, No Respiratory Distress, Other (Slightly coarse breath sounds no focal consolidative findings noted) Cardiovascular: No Murmur, Irregularly Irregular Extremity: Normal Inspection, Normal Range of Motion, Non Tender, No Calf Tenderness, No Pedal Edema Results/Procedures Lab Laboratory Tests 02/08/21 03:15 Patient resulted labs reviewed. Assessment/Plan Assessment and Plan Assess & Plan/Chief Complaint 1. 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 . 2. Atrial fibrillation with relatively controlled ventricular response reportedly chronic. 3. Dilated cardiomyopathy likely meth related. Acute exacerbation yesterday improved following diuretic therapy deferred to cardiology. Critical Care Critically Ill Patient JOHNNY ANDERS MD February 08, 2021 12:39
--- NOTE | 2021-02-08 13:34 | Progress Note - Cardiology ---
Cardiology SOAP Progress Note Subjective: Extubated, but noncommunicative Does not report cp or palp or syncope Objective: I&O/Vital Signs 02/08/21 02/08/21 02/08/21 02/08/21 02:00 02:01 02:42 03:00 Pulse 69 68 69 Resp 18 21 18 B/P (MAP) 142/82 (102) 133/84 (100) Pulse Ox 96 99 93 O2 Delivery Mechanical Ventilator Mechanical Ventilator Mechanical Ventilator O2 Flow Rate 25.00 21.00 21.00 FiO2 25 02/08/21 02/08/21 02/08/21 02/08/21 04:00 04:00 04:52 04:52 Pulse 67 75 75 Resp 18 B/P (MAP) 151/91 (111) 151/91 151/91 Pulse Ox 93 95 O2 Delivery Mechanical Ventilator Mechanical Ventilator O2 Flow Rate 21.00 FiO2 25 02/08/21 02/08/21 02/08/21 02/08/21 05:00 06:00 06:21 07:00 Pulse 75 73 66 84 Resp 18 18 23 19 B/P (MAP) 149/102 (118) 149/91 (110) 129/93 (105) Pulse Ox 93 93 92 98 O2 Delivery Mechanical Ventilator Mechanical Ventilator Mechanical Ventilator O2 Flow Rate 21.00 21.00 21.00 FiO2 21 02/08/21 02/08/21 02/08/21 02/08/21 07:00 07:40 08:00 08:00 Temp 38.1 Pulse 81 85 Resp 15 B/P (MAP) 139/93 (108) Pulse Ox 96 95 96 O2 Delivery Mechanical Ventilator Mechanical Ventilator Mechanical Ventilator O2 Flow Rate 30.00 30.00 FiO2 25 02/08/21 02/08/21 02/08/21 02/08/21 08:52 09:00 09:20 10:00 Pulse 105 104 109 Resp 34 33 28 B/P (MAP) 167/109 (128) 120/81 (94) Pulse Ox 97 97 98 O2 Delivery Mechanical Ventilator Nasal Cannula Nasal Cannula O2 Flow Rate 30.00 4.00 4.00 FiO2 30 02/08/21 02/08/21 02/08/21 11:00 12:00 12:39 Pulse 113 120 117 Resp 28 24 B/P (MAP) 131/83 (99) 123/95 (104) Pulse Ox 98 99 O2 Delivery Nasal Cannula Nasal Cannula O2 Flow Rate 4.00 4.00 02/07/21 23:59 Intake Total 810 ml Output Total 2600 ml Balance -1790 ml Constitutional: other (Extubated, but noncommunicative) Respiratory: No accessory muscle use; other (good bilateral air entry) Cardiovascular: regular rate-rhythm, S1 and S2, systolic murmur (soft JEFFREY at card base) Gastrointestional: soft; No guarding, No rebound; audible bowel sounds Genital/Rectal: other (urinary catheter to DD - dark arsh with sediment) Extremities: No clubbing, No cyanosis, No significant edema Neurologic/Psychiatric: other (Extubated, but noncommunicative; appears to move all limbs equally) Skin: No rash on exposed areas, No ulcerations on exposed areas Results/Procedures: Labs Laboratory Tests 02/07/21 16:26: Glucometer 111H 02/08/21 03:15: White Blood Count 11.5H, Red Blood Count 4.37, Hemoglobin 13.4, Hematocrit 44, Mean Corpuscular Volume 101H, Mean Corpuscular Hemoglobin 31, Mean Corpuscular Hemoglobin Concent 30L, Red Cell Distribution Width 14.6H, Platelet Count 259, Mean Platelet Volume 11.3, Immature Granulocyte % (Auto) 1, Neutrophils (%) (Auto) 70, Lymphocytes (%) (Auto) 13, Monocytes (%) (Auto) 13H, Eosinophils (%) (Auto) 3, Basophils (%) (Auto) 0, Neutrophils # (Auto) 8.1H, Lymphocytes # (Auto) 1.5, Monocytes # (Auto) 1.5H, Eosinophils # (Auto) 0.4H, Basophils # (Auto) 0.1, Immature Granulocyte # (Auto) 0.1, Sodium Level 144, Potassium Level 4.1, Chloride Level 110H, Carbon Dioxide Level 24, Anion Gap 10, Blood Urea Nitrogen 20H, Creatinine 0.87, Estimat Glomerular Filtration Rate > 60, BUN/Creatinine Ratio 23, Glucose Level 105, Calcium Level 8.8, Phosphorus Level 2.9, Magnesium Level 2.0, Vancomycin Level Trough 13.5, Digoxin Level 0.52L 02/08/21 04:53: Blood Gas Puncture Site LT RADIAL, Blood Gas Patient Temperature 37.7, Arterial Blood pH 7.38, Arterial Blood Partial Pressure CO2 39, Arterial Blood Partial Pressure O2 61L, Arterial Blood HCO3 22L, Arterial Blood Total CO2 23.4, Arterial Blood Oxygen Saturation 91L, Arterial Blood Base Excess -1.9, Michele Test YES-POS, Blood Gas Ventilator Setting YES, Blood Gas Inspired Oxygen 21% 02/08/21 12:15: Glucometer 91 Microbiology 02/06/21 Urine Culture - Preliminary, Resulted NO GROWTH 02/06/21 Gram Stain - Final, Resulted 02/06/21 Sputum Culture - Preliminary, Resulted Staphylococcus aureus 02/04/21 Blood Culture - Preliminary, Resulted No growth Laboratory Tests 02/07/21 03:35 02/08/21 03:15 A/P: Assessment: Ac resp failure, likely related to methamphetamine abuse, managed by ICU and Hospitalist services Persistent atrial fib/flutter - rate controlled (on dig via NGT) Dilated cardiomyopathy with acute systolic congestive heart failure: EF 30-35 percent. Wosening infiltrates on CXR of 02/07/30 Non-compliance with treatment (including beta-ryan, NOLVIA-inhib, oral anticoag, and ext defib vest, all of which he was d/c'd on in Nov 2020) Hypertension, by history Hyperlipidemia, by history Plan: * Complex management * Continue to treat ac systolic CHF with iv diuretics * Continue to treat heart rate with dig * Enoxaparin sc for stroke prevention. Change to apixaban when reliable swallowing established * Monitor labs SAVI SILVA MD FACP FAC CCDS February 08, 2021 13:34
[2021-02-08] MEDS: VANCOMYCIN 1,750 MG/NS 500 ML IVPB IV SCH ×2 (16:04)
[2021-02-08] MEDS: NS IV 1000 ML 1,000 ML IV SCH (23:48)
[2021-02-09] MEDS: PROPOFOL DRIP (ICU) 100 ML IV SCH (03:19)
[2021-02-09] MEDS: AZTREONAM 2 GM/NS 100 ML IVPB IV SCH ×2 (03:19)
[2021-02-09] MEDS: KCL 20 MEQ TAB (K-DUR) PO SCH (03:22)
[2021-02-09] MEDS: MAGNESIUM 1 GM/100 ML IVPB 100 ML IV SCH (03:22)
[2021-02-09] MEDS: POTASSIUM CL 10MEQ/50ML IVPB 50 ML IV SCH (03:22)
[2021-02-09 03:32] LABS: BASOPHILS % (AUTO) 0 % (0-10); EOSINOPHILS % (AUTO) 0 % (0-10); HEMATOCRIT 46 % (40-54); LYMPHOCYTES # (AUTO) 0.9 10^3/uL (1.0-4.0); LYMPHOCYTES % (AUTO) 6 % (12-44); MEAN CORPUSCULAR HEMOGLOBIN 31 pg (25-34); MEAN CORPUSCULAR HGB CONC 31 g/dL (32-36); MEAN CORPUSCULAR VOLUME 101 fL (80-99); MEAN PLATELET VOLUME 11.8 fL (9.0-12.2); MONOCYTES # (AUTO) 1.1 10^3/uL (0.0-1.0); MONOCYTES % (AUTO) 7 % (0-12); NEUTROPHILS # (AUTO) 13.2 10^3/uL (1.8-7.8); NEUTROPHILS % (AUTO) 86 % (42-75); PLATELET COUNT 302 10^3/uL (130-400); WHITE BLOOD COUNT 15.3 10^3/uL (4.3-11.0)
[2021-02-09 03:51] LABS: BUN/CREATININE RATIO 26; CALCIUM 9.3 MG/DL (8.5-10.1); CARBON DIOXIDE 22 MMOL/L (21-32); CHLORIDE 109 MMOL/L (98-107); CREATININE SERUM 0.81 MG/DL (0.60-1.30); GFR ESTIMATED > 60; GLUCOSE 97 MG/DL (70-105); MAGNESIUM 1.9 MG/DL (1.6-2.4); PHOSPHORUS 3.6 MG/DL (2.3-4.7); SODIUM 146 MMOL/L (135-145)
[2021-02-09] MEDS ORDERED: LACTATED RINGERS 1,000 ML IV ONE (03:59)
--- NOTE | 2021-02-09 04:05 | Pulmonary Progress Note ---
Subjective Time Seen by a Provider: 03:58 Subjective/Events-last exam PT was extubated yesterday. Currently on RA. Sepsis Event Evaluation Height, Weight, BMI Height: '" Weight: lbs. oz. kg; 32.48 BMI Method: Exam Exam Vital Signs Date Time Temp Pulse Resp B/P (MAP) Pulse Ox O2 Delivery O2 Flow Rate FiO2 02/09/21 01:37 21.00 02/09/21 00:40 Room Air 02/09/21 00:39 36.6 02/09/21 00:00 123 158/97 (117) 96 Nasal Cannula 4.00 02/08/21 23:51 97 Nasal Cannula 4.00 02/08/21 23:00 118 149/97 (114) 98 Nasal Cannula 4.00 02/08/21 22:03 4.00 02/08/21 22:00 108 121/100 (107) 96 Nasal Cannula 4.00 02/08/21 21:00 120 159/101 (120) 99 Nasal Cannula 4.00 02/08/21 20:47 36.2 02/08/21 20:00 96 Nasal Cannula 4.00 02/08/21 19:00 111 02/08/21 19:00 111 136/93 (107) 98 Nasal Cannula 4.00 02/08/21 18:00 124 151/92 (111) 98 Nasal Cannula 4.00 02/08/21 17:00 130 145/103 (117) 99 Nasal Cannula 4.00 02/08/21 16:00 126 165/91 (115) 98 Nasal Cannula 4.00 02/08/21 16:00 92 Nasal Cannula 4.00 02/08/21 15:00 130 138/103 (115) 99 Nasal Cannula 4.00 02/08/21 14:00 120 143/95 (111) 96 Nasal Cannula 4.00 02/08/21 13:00 120 33 141/101 (114) 99 Nasal Cannula 4.00 02/08/21 12:39 117 02/08/21 12:00 92 Nasal Cannula 4.00 02/08/21 12:00 120 24 123/95 (104) 99 Nasal Cannula 4.00 02/08/21 11:00 113 28 131/83 (99) 98 Nasal Cannula 4.00 02/08/21 10:00 109 28 120/81 (94) 98 Nasal Cannula 4.00 02/08/21 09:20 Nasal Cannula 4.00 02/08/21 09:00 104 33 167/109 (128) 97 Mechanical Ventilator 30.00 02/08/21 08:52 105 34 97 30 02/08/21 08:00 85 15 139/93 (108) 96 Mechanical Ventilator 30.00 02/08/21 08:00 95 Mechanical Ventilator 25 02/08/21 07:40 38.1 96 Mechanical Ventilator 30.00 02/08/21 07:00 81 02/08/21 07:00 84 19 129/93 (105) 98 Mechanical Ventilator 21.00 02/08/21 06:21 66 23 92 21 02/08/21 06:00 73 18 149/91 (110) 93 Mechanical Ventilator 21.00 02/08/21 05:00 75 18 149/102 (118) 93 Mechanical Ventilator 21.00 02/08/21 04:52 75 151/91 02/08/21 04:52 75 151/91 02/08/21 04:00 95 Mechanical Ventilator 25 02/08/21 04:00 67 18 151/91 (111) 93 Mechanical Ventilator 21.00 I & O 02/09/21 07:00 Intake Total 755 ml Output Total 3500 ml Balance -2745 ml Height & Weight Height: '" Weight: lbs. oz. kg; 32.48 BMI Method: General Appearance: No Apparent Distress Respiratory: No Accessory Muscle Use, No Respiratory Distress, Other (Slightly coarse breath sounds no focal consolidative findings noted) Cardiovascular: No Murmur, Irregularly Irregular Capillary Refill: Less Than 3 Seconds Gastrointestinal: normal bowel sounds, non tender, soft Extremity: Normal Inspection, Normal Range of Motion, Non Tender, No Calf Tenderness, No Pedal Edema Results Lab Laboratory Tests 02/08/21 03:15 02/09/21 03:08 Assessment/Plan Assessment/Plan Acute respiratory failure -Continue ventilator - Intubated 02/01 -Extubated 02/08 -Pt is on RA MRSA PNA -Continue Vanco Dysphagia with thrush -Add Diflucan -Consult speech therapy Debility -Consult PT methamphetamine dependance Alcohol and tobacco dependance -Continue CIWA Afib - controlled CHF with EF 30-35% TYE SÁNCHEZ DO February 09, 2021 04:05
[2021-02-09] MEDS ORDERED: LACTATED RINGERS 1,000 ML IV SCH (04:15)
[2021-02-09] MEDS ORDERED: FLUCONAZOLE 200 MG/100 ML 100 ML IV ONE (04:35)
[2021-02-09] MEDS: MULTIVIT W/MINERALS TAB (THERAGRAN M) PO SCH (05:20)
[2021-02-09] MEDS: VANCOMYCIN 1,750 MG/NS 500 ML IVPB IV SCH ×4 (05:27→18:10)
[2021-02-09] MEDS: ENOXAPARIN 300 MG/3 ML (LOVENOX) MULTI-DOSE VIAL SQ SCH ×2 (05:27→18:09)
--- NOTE | 2021-02-09 07:13 | Diagnostic Imaging Report ---
EXAMINATION: Chest 1 view HISTORY: Dyspnea. COMPARISON: 02/08/2021. FINDINGS: There has been interval extubation. Stable low lung volumes. There is improved aeration in the perihilar regions and lung bases. The cardiac silhouette remains prominent. No large pleural effusion or pneumothorax. No acute osseous abnormalities. IMPRESSION: 1. Improved aeration in the perihilar regions and lung bases, which may represent improving infection, edema, or atelectasis. 2. Interval extubation. Dictated by: Dictated on workstation # [id number]
[2021-02-09] MEDS: ASPIRIN 81 MG CHEW (CHILDREN'S ASA) PO SCH (09:06)
[2021-02-09] MEDS: DIGOXIN 0.25 MG (LANOXIN) TAB PO SCH (09:07)
[2021-02-09] MEDS: FOLIC ACID 1 MG TAB PO SCH (09:07)
--- NOTE | 2021-02-09 09:18 | Progress Note - Cardiology ---
Cardiology SOAP Progress Note Subjective: Sitting up in bed Has mask in place because he is spitting phlegm out Mumbles in incoherent answers to questions Unable to obtain any information from pt Per nurse he is not swallowing medications and keep spitting them out Speech eval is pending Objective: I&O/Vital Signs 02/10/21 00:00 Intake Total 600 ml Output Total 2700 ml Balance -2100 ml Constitutional: other (Extubated, but noncommunicative) Respiratory: No accessory muscle use; other (good bilateral air entry) Cardiovascular: regular rate-rhythm, S1 and S2, systolic murmur (soft JEFFREY at card base) Gastrointestional: soft; No guarding, No rebound; audible bowel sounds Genital/Rectal: other (urinary catheter to DD - dark arsh with sediment) Extremities: No clubbing, No cyanosis, No significant edema Neurologic/Psychiatric: other (Extubated, but noncommunicative; appears to move all limbs equally) Skin: No rash on exposed areas, No ulcerations on exposed areas Results/Procedures: Labs Laboratory Tests 02/09/21 11:55: Glucometer 106 02/09/21 18:16: Glucometer 107 Microbiology 02/06/21 Urine Culture - Final, Complete NO GROWTH 02/06/21 Gram Stain - Final, Complete 02/06/21 Sputum Culture - Final, Complete Staphylococcus aureus 02/04/21 Blood Culture - Final, Complete No growth A/P: Assessment: Ac resp failure, likely related to methamphetamine abuse, managed by ICU and Hospitalist services Persistent atrial fib/flutter - rate not well controlled - unable to swallow medications Dilated cardiomyopathy with acute systolic congestive heart failure: EF 30-35 percent. Wosening infiltrates on CXR of 02/07/30 Non-compliance with treatment (including beta-ryan, NOLVIA-inhib, oral anticoag, and ext defib vest, all of which he was d/c'd on in Nov 2020) Hypertension, by history Hyperlipidemia, by history Plan: * Complex management * Continue to treat ac systolic CHF with iv diuretics * Unable to swallow, spitting out medications * Continue to treat heart rate with dig, change to IV for now * Enoxaparin sc for stroke prevention. Change to apixaban when reliable swallowing established * Monitor labs * Mild hypernatremia ANN RHOADES February 09, 2021 09:18
[2021-02-09] MEDS ORDERED: DIGOXIN 0.25 MG/ML (LANOXIN) 2 ML AMP IV NR (09:30)
[2021-02-09] MEDS: PANTOPRAZOLE 40 MG (PROTONIX) VIAL IV SCH (09:42)
[2021-02-09] MEDS: FUROSEMIDE 40 MG/4 ML INJ (LASIX) IVP SCH (09:42)
--- NOTE | 2021-02-09 09:46 | Physical Therapy Evaluation ---
PT Evaluation-General Medical Diagnosis Admission Date Feb 01, 2021 at 06:33 Medical Diagnosis: A-fib with RVR/CHF/elevated troponin Onset Date: Feb 01, 2021 Therapy Diagnosis Therapy Diagnosis: generalized weakness/debility Precautions Precautions/Isolations: Fall Prevention, Standard Precautions Referral Physician: Makenzie Reason for Referral: Evaluation/Treatment Medical History Pertinent Medical History: Atrial Fib, Alcoholism, HTN, Smoking Additional Medical History polysubstance use Current History ER secondary to cough, congestion and body aches Reviewed History: Yes Prior Prior Level of Function SCALE: Activities may be completed with or without assistive devices. 3-Upfprolkdl-ohetvqf completes the activity by him/herself with no assistance from a helper. 5-Set-up or Clean-up Assistance-helper sets up or cleans up; patient completes activity. [place] assists only prior to or following the activity. 4-Supervision or Touching Assistance-helper provides verbal cues and/or touching/steadying and/or contact guard assistance as patient completes activity. Assistance may be provided throughout the activity or intermittently. 3-Partial/Moderate Assistance-helper does LESS THAN HALF the effort. [place] lifts, holds or supports trunk or limbs, but provides less than half the effort. 2-Substantial/Maximal Assistance-helper does MORE THAN HALF the effort. [place] lifts or holds trunk or limbs and provides more than half the effort. 1-Megciessc-dhkrvj does ALL the effort. Patient does none of the effort to complete the activity. Or, the assistance of 2 or more helpers is required for the patient to complete the activity. If activity was not attempted, code reason: 7-Patient Refused. 9-Not Applicable-not attempted and the patient did not perform the activity before the current illness, exacerbation or injury. 10-Not Attempted due to Environmental Limitations-(lack of equipment, weather restraints, etc.). 88-Not Attempted due to Medical Conditions or Safety Concerns. Bed Mobility: 6 Transfers (B,C,W/C): 6 Gait: 6 Stairs: 6 Indoor Mobility (Ambulation): Independent Stairs: Independent Prior Devices Use: None PT Evaluation-Current Subjective Patient lethargic and unable to follow simple direction. Mask placed on patient due to spitting and is MRSA +sputum Objective Patient Orientation: Confused, Mumbles, Listless Attachments: Locke Catheter, IV ROM/Strength ROM Lower Extremities bilateral LE WFL Strength Lower Extremities 2-/5 grossly bilateral LE Integumentary/Posture Integumentary refer to nursing notes Bladder Incontinence: Locke Cath Neuromuscular (Tone, Coordination, Reflexes) severely diminished with all Sensory Vision: Functional Hearing: Functional Transfers Roll Left to Right (QC): 1 (x 2) Sit to Lying (QC): 1 (x 2) Lying to Sitting/Side of Bed(Q: 1 (x 2) Sit to Stand (QC): 88 Chair/Dre-jx-Cqpye Xfer(QC): 88 Toilet Transfer (QC): 88 patient very resistive with all mobility requiring dependent assist of 2. Bed placed in Trendelenburg position for up in bed positioning. Gait Does the Patient Walk?: No and Walking Goal IS indicated Balance Sitting Static: Poor Sitting Dynamic: Poor Assessment/Needs 40 y.o. male, will benefit from skilled PT to address functional strength and mobility to improve current LOF. Patient is currently dependent of 2 with all bed mobility and is not safe for OOB activity. 4 rails up and bed alarm activated due to patient behaviors. Rehab Potential: Guarded PT Room Server Goals Room Server Goals PT Room Server Goals Time Frame: February 28, 2021 Roll Left & Right (QC): 5 Sit to Lying (QC): 5 Lying-Sitting on Side/Bed(QC): 5 Sit to Stand (QC): 5 Chair/Zls-hy-Pjfel Xfer(QC): 5 Toilet Transfer (QC): 5 Does the Patient Walk: Yes Walk 10 feet (QC): 4 Walk 50ft with 2 Turns (QC): 4 Walk 150 ft (QC): 4 PT Plan Problem List Problem List: Activity Tolerance, Functional Strength, Safety, Balance, Gait, Transfer, Bed Mobility Treatment/Plan Treatment Plan: Continue Plan of Care Treatment Plan: Bed Mobility, Education, Functional Activity Damien, Functional Strength, Gait, Safety, Therapeutic Exercise, Transfers Treatment Duration: February 28, 2021 Frequency: 6 times per week Estimated Hrs Per Day: .25 hour per day Time/GCodes Time In: 857 Time Out: 908 Total Billed Treatment Time: 11 Total Billed Treatment 1 visit EVMod 11 min TAMMY POSADA PT February 09, 2021 09:46
--- NOTE | 2021-02-09 09:48 | ST Dysphagia Evaluation ---
Speech Evaluation-General Medical Diagnosis AF RVR, Meth use Onset Date: February 07, 2021 Therapy Diagnosis Therapy Diagnosis: Oropharyngeal Dysphagia Precautions Precautions: Aspiration Precautions/Isolations: Aspiration, Fall Prevention, Standard Precautions Referral Referring Physician: Dr. Banegas Medical History Reviewed History: Yes Speech PLF/Current-Dysphagia Prior Level of Function Patient lived in his own home where he was independent with daily living tasks. Subjective Patient was cooperative with the Bedside Dysphagia Evaluation. Cognitive Status Patient Orientation: Person, Unable to Assess Oral Motor Skills Dentition: Natural, Tumbled, Stained Ability to Follow Directions: Fair Patient is PO pending BDE Oral Expression Ability: Severe Impairment Voice Voice Phonatory-Based Quality: Hoarse Voice Pitch: Normal Voice Loudness: Severely Soft/Quiet Face Facial Symmetry: Symmetrical Oral-Facial Assessment Oral-Facial Dentition: Normal Labial Seal Description: Weak Lingual Protrusion: Normal Lingual ROM: Normal Lingual Strength: Normal Pharynx Velopharyngeal Move.: Normal Volitional Dry Swallow: Yes Voluntary Cough: Yes Can Clear Throat Volitionally: Yes Dysphagia Evaluation Consistencies Presented: Thin Liquid, Mechanical Soft, Pureed Oral phase is within normal range of function for all consistencies presented. Pharyngeal phase is within normal range of function for all consistencies presented except thin which he coughed on. He was able to clear with coughing. Funct. Velo/Pharyngeal Symptom: Cough After Swallow with thin liquids Swallowing Precautions: Alternate Liquids/Solids, Double Swallow, Decreased Bolus 1/2 Tsp, Liquids from Spoon, No Straw, Small Bites and Sips, Sitting Upright 90 Degrees, Sitting 90 Degrees 30 Post Intake Patient was unable to suck on the straw. Dysphagia Evaluation Summary Patient is a 40 y/o male who was admitted to the ICU due to AF RVR and meth use. Patient was agitated initially and was intubated with sedation. Patient was extubated on 02/08/2021 and was referred for a Bedside Dysphagia Evaluation which was completed today. Patient was given trials of thin liquids at 1/2 tsp x1 with coughing immediately post swallow. Patient was given 1/2 tsp of nectar consistency liquids at 1/2 tsp x2 without difficulty. Patient was unable to suck on the straw. Patient was also presented with 1/2 tsp of puree and mechanical soft without s/s of aspiration. Patient is noted to have thrush at this time which he is receiving treatment for. Patient is recommended for a Dysphagia II diet with nectar liquids. This information was provided for his nurse, Keturah as well as written on the white board in his room. Barriers to Learning Patient's meth use and medical status Speech-Plan Patient/Family Goals Patient/Family Goals: Patient plans to return home upon discharge Treatment Plan Speech Therapy Treatment Plan: Discontinue ST Treatment Duration: February 09, 2021 Frequency: 1 time per week Estimated Hrs Per Day: .25 hour per day Rehab Potential: Fair Barriers to Learning: Patient's meth use and medical status Pt/Family Agrees to Plan: Yes Safety Risks/Education Teaching Recipient: Patient Teaching Methods: Discussion Response to Teaching: Verbalize Understanding, Reinforcement Needed Education Topics Provided: Safety of oral intake and diet level Time Speech Therapy Time In: 10:15 Speech Therapy Time Out: 10:30 Total Billed Time: 15 Billed Treatment Time MARIEL Ni DYSEVS No WHORTON, BETHANIA ST February 09, 2021 09:48
--- NOTE | 2021-02-09 10:18 | Progress Note - Hospitalist ---
Subjective HPI/CC On Admission Date Seen by Provider: February 09, 2021 Time Seen by Provider: 08:30 CC: AF RVR with meth use HPI: This is a 40yoWM with known AF who moved back from [facility] who presented to the ER with palpitations and found to have AF w/RVR and elevated troponin with BNP. Placed in ICU and patient had such aggressiveness from the meth use and thrashing around he was intubate after conscious sedation initiated to keep from harming self and others. Subjective/Events-last exam Pt now in room 408 Spits at everything Has a blank stare The drugs have made some sort of encephalopathy changes in his brain Telemetry maintained since he has a flutter Review of Systems General: Fatigue, Malaise Neurological: Confusion Objective Exam Vital Signs Vital Signs Date Time Temp Pulse Resp B/P (MAP) Pulse Ox O2 Delivery O2 Flow Rate FiO2 02/09/21 19:46 36.7 121 22 135/88 (104) 94 Room Air 02/09/21 04:00 4.00 02/08/21 08:52 30 Capillary Refill : Less Than 3 Seconds General Appearance: No Apparent Distress, Anxious, Chronically ill Cardiovascular: Tachycardia Results/Procedures Lab Patient resulted labs reviewed. Assessment/Plan Assessment and Plan Assess & Plan/Chief Complaint Assessment: s/p DELORES s/p VDRF Encephalopathy AF RVR Plan: Supportive care Critical Care Critically Ill Patient BK COLE DO February 09, 2021 10:18
[2021-02-09 12:19] VITALS: BP 154/93
--- NOTE | 2021-02-09 13:25 | Progress Note - Cardiology ---
Cardiology SOAP Progress Note Subjective: Does not respond any detailed answers Does not report any cp or palp or syncope or shortness of breath or abd pain or n/v or weakness Objective: I&O/Vital Signs 02/09/21 02/09/21 02/09/21 02/09/21 01:37 02:00 03:00 04:00 Pulse 121 106 B/P (MAP) 134/91 (105) 138/104 (115) Pulse Ox 92 92 97 O2 Delivery Room Air Room Air Nasal Cannula O2 Flow Rate 21.00 4.00 02/09/21 02/09/21 02/09/21 02/09/21 04:00 05:00 06:00 07:00 Pulse 112 102 95 118 B/P (MAP) 153/96 (115) 145/92 (109) Pulse Ox 94 94 94 O2 Delivery Room Air Room Air Room Air 02/09/21 02/09/21 02/09/21 02/09/21 07:10 09:00 12:19 12:20 Temp 37.3 Pulse 116 133 Resp 20 20 B/P (MAP) 143/93 (110) 154/93 (113) Pulse Ox 93 94 93 O2 Delivery Room Air Room Air Room Air Room Air 02/09/21 00:00 Intake Total 0 ml Output Total 1850 ml Balance -1850 ml Constitutional: No AAO x 3; other (Extubated, but noncommunicative) Respiratory: No accessory muscle use; other (good bilateral air entry) Cardiovascular: regular rate-rhythm, S1 and S2, systolic murmur (soft JEFFREY at card base) Gastrointestional: soft; No guarding, No rebound; audible bowel sounds Genital/Rectal: other (urinary catheter to DD - dark arsh with sediment) Extremities: No clubbing, No cyanosis, No significant edema Neurologic/Psychiatric: No oriented x 3; other (Extubated, but noncommunicative; appears to move all limbs equally) Skin: No rash on exposed areas, No ulcerations on exposed areas Results/Procedures: Labs Laboratory Tests 02/08/21 16:46: Glucometer 101 02/09/21 03:08: White Blood Count 15.3H, Red Blood Count 4.53, Hemoglobin 14.0, Hematocrit 46, Mean Corpuscular Volume 101H, Mean Corpuscular Hemoglobin 31, Mean Corpuscular Hemoglobin Concent 31L, Red Cell Distribution Width 14.5, Platelet Count 302, Mean Platelet Volume 11.8, Immature Granulocyte % (Auto) 1, Neutrophils (%) (Auto) 86H, Lymphocytes (%) (Auto) 6L, Monocytes (%) (Auto) 7, Eosinophils (%) (Auto) 0, Basophils (%) (Auto) 0, Neutrophils # (Auto) 13.2H, Lymphocytes # (Auto) 0.9L, Monocytes # (Auto) 1.1H, Eosinophils # (Auto) 0.0, Basophils # (Auto) 0.0, Immature Granulocyte # (Auto) 0.1, Sodium Level 146H, Potassium Level 4.0, Chloride Level 109H, Carbon Dioxide Level 22, Anion Gap 15H, Blood Urea Nitrogen 21H, Creatinine 0.81, Estimat Glomerular Filtration Rate > 60, BUN/Creatinine Ratio 26, Glucose Level 97, Calcium Level 9.3, Phosphorus Level 3.6, Magnesium Level 1.9 02/09/21 11:55: Glucometer 106 Microbiology 02/06/21 Urine Culture - Final, Complete NO GROWTH 02/06/21 Gram Stain - Final, Complete 02/06/21 Sputum Culture - Final, Complete Staphylococcus aureus 02/04/21 Blood Culture - Final, Complete No growth Laboratory Tests 02/08/21 03:15 02/09/21 03:08 A/P: Assessment: Ac resp failure, likely related to methamphetamine abuse, managed by ICU and Hospitalist services Persistent atrial fib/flutter - rate not well controlled - unable to swallow medications Dilated cardiomyopathy with acute systolic congestive heart failure: EF 30-35 percent. Wosening infiltrates on CXR of 02/07/30 Non-compliance with treatment (including beta-ryan, NOLVIA-inhib, oral anticoag, and ext defib vest, all of which he was d/c'd on in Nov 2020) Hypertension, by history Hyperlipidemia, by history Hypernat[facility], mild[facility] Plan: * Complex management * Continue to treat ac systolic CHF with iv diuretics * Unable to swallow - spitting out medications * Continue to treat heart rate with dig, change to IV for now * Enoxaparin sc for stroke prevention. Change to apixaban when reliable swallowing established * Monitor labs SAVI SILVA MD FACP FAC CCDS February 09, 2021 13:25
[2021-02-09] MEDS ORDERED: LORazepam INJ 2 MG/ML (ATIVAN) VIAL IVP PRN (14:00)
[2021-02-09] MEDS ORDERED: WATER (STERILE) FOR INJ 10 ML BTL INJ PRN (14:00)
[2021-02-09] MEDS ORDERED: ZIPRASIDONE 20 MG INJ (GEODON) VIAL IM PRN (14:00)
[2021-02-09 15:10] VITALS: BP 129/88
[2021-02-09 19:46] VITALS: BP 135/88
--- NOTE | 2021-02-10 05:42 | Discharge Summary ---
Discharge Summary Hospital Course Was the Problem List Reviewed?: Yes Problems/Dx: (1) Methamphetamine use Status: Acute (2) HFrEF (heart failure with reduced ejection fraction) Status: Chronic (3) Alcohol withdrawal Status: Acute (4) Rhabdomyolysis Status: Acute Qualifiers: Qualified Codes: M62.82 - Rhabdomyolysis (5) HTN (hypertension) Status: Chronic Qualifiers: Qualified Codes: I10 - Essential (primary) hypertension (6) HLD (hyperlipidemia) Status: Chronic (7) Obesity Status: Chronic (8) CHF (congestive heart failure) Status: Acute Qualifiers: Qualified Codes: I50.23 - Acute on chronic systolic (congestive) heart fa ilure (9) Non-compliance Status: Acute (10) Elevated troponin Status: Acute Hospital Course Date of Admission: Feb 01, 2021 at 06:33 Admission Diagnosis : Family Physician/Provider: Kaya,Local Physician Date of Discharge: 02/10/21 Discharge Diagnosis: DELORES requiring vent for aggressive behavior, AF, non compliance, left AMA Hospital Course: Lengthy course after admitted for AF RVR but became so aggressive due to DELORES he required intubation. Patient was ultimately extubated and Cardiology managed AF RVR. Patient continued to be very confused but apparently he cleared and was able to leave AMA and was stable at time of DC. Labs and Pending Lab Test: Laboratory Tests 02/09/21 11:55: Glucometer 106 02/09/21 18:16: Glucometer 107 Microbiology 02/06/21 Urine Culture - Final, Complete NO GROWTH 02/06/21 Gram Stain - Final, Complete 02/06/21 Sputum Culture - Final, Complete Staphylococcus aureus 02/04/21 Blood Culture - Final, Complete No growth Home Meds Active No Active Prescriptions or Reported Medications Assessment/Pt Instructions [facility] 1 week Discharge Planning: <30 minutes discharge planning Discharge Instructions Discharge Diet: No Restrictions Discharge Physical Examination Vital Signs Vital Signs Date Time Temp Pulse Resp B/P (MAP) Pulse Ox O2 Delivery O2 Flow Rate FiO2 02/09/21 19:46 36.7 121 22 135/88 (104) 94 Room Air 02/09/21 04:00 4.00 02/08/21 08:52 30 General Appearance: No Apparent Distress, WD/WN, Chronically ill Allergies: Coded Allergies: Penicillins (Verified Allergy, Unknown, 11/09/20) Discharge Summary Date of Admission Feb 01, 2021 at 06:33 Date of Discharge February 09, 2021 at 21:38 Admission Diagnosis Assessment: AF RVR Elevated BNP Meth use Plan: Intubate Cardiology consult Discharge Diagnosis Assessment: s/p DELORES s/p VDRF Encephalopathy AF RVR Plan: Supportive care BK COLE DO February 10, 2021 05:42
[2021-02-10] MEDS ORDERED: FLUCONAZOLE 200 MG/100 ML 50 ML, EMPTY IV BAG (PVC) 1 EA IV SCH ×2 (09:00)
[2021-02-10] MEDS ORDERED: DIGOXIN 0.25 MG/ML (LANOXIN) 2 ML AMP IV SCH (09:00)
== END 2021-02-09 21:38 | disposition left against medical advice (07) | DRG 280 ==
LOC: EDUNIT# 04:01 → ER 04:03 → ICU 06:33 → 4TH 02-09 07:47
PROVIDERS: ADMIT Internal Medicine; ATTEND Internal Medicine
PROC: 5A1955Z Respiratory Ventilation, Greater than 96 Consecutive Hours (ICD-10-PCS; principal; 2021-02-01)
PROC: 0BH18EZ Insertion of Endotracheal Airway into Trachea, Via Natural or Artificial Opening Endoscopic (ICD-10-PCS; 2021-02-01)
DX: I48.19 Other persistent atrial fibrillation (principal); I50.21 Acute systolic (congestive) heart failure; I21.A1 Myocardial infarction type 2; J96.00 Acute respiratory failure, unspecified whether with hypoxia or hypercapnia; J15.212 Pneumonia due to Methicillin resistant Staphylococcus aureus; M62.82 Rhabdomyolysis; F15.259 Other stimulant dependence with stimulant-induced psychotic disorder, unspecified; F10.231 Alcohol dependence with withdrawal delirium; B37.0 Candidal stomatitis; G93.40 Encephalopathy, unspecified; E87.0 Hyperosmolality and hypernatremia; Z20.822 Contact with and (suspected) exposure to COVID-19; I11.0 Hypertensive heart disease with heart failure; I48.92 Unspecified atrial flutter; I42.0 Dilated cardiomyopathy; E66.9 Obesity, unspecified; Z68.32 Body mass index [BMI] 32.0-32.9, adult; F10.20 Alcohol dependence, uncomplicated; Z91.19 Patient's noncompliance with other medical treatment and regimen; F12.90 Cannabis use, unspecified, uncomplicated; R13.10 Dysphagia, unspecified; K21.9 Gastro-esophageal reflux disease without esophagitis; E78.00 Pure hypercholesterolemia, unspecified; E78.5 Hyperlipidemia, unspecified; F17.210 Nicotine dependence, cigarettes, uncomplicated; Z88.0 Allergy status to penicillin
CPT/HCPCS: 36415; 36600; 71045; 71275; 80048; 80053; 80061; 80076; 80162; 80202; 80306; 80320; 81000; 82550; 82553; 82805; 82947; 82962; 83605; 83615; 83690; 83735; 83874; 83880; 84100; 84145; 84478; 84484; 85007; 85025; 85027; 85379; 85610; 85652; 85730; 86141; 86308; 87040; 87070; 87077; 87081; 87088; 87186; 87205; 87430; 87635; 87804; 93005; 93041; 94002; 94003; 94799; 96372; 96374; 96375

== ENCOUNTER 2021-03-28 03:32 | Inpatient (IN) | payer SELFPAY ==
[~2021-03-28] VITALS: Ht 180.3 cm; Wt 105.7 kg
[2021-03-28 04:14] LABS: BASOPHILS % (AUTO) 0 % (0-10); EOSINOPHILS # (AUTO) 0.4 10^3/uL (0.0-0.3); EOSINOPHILS % (AUTO) 3 % (0-10); HEMATOCRIT 44 % (40-54); HEMOGLOBIN 14.1 g/dL (13.3-17.7); LYMPHOCYTES % (AUTO) 15 % (12-44); MEAN CORPUSCULAR HEMOGLOBIN 30 pg (25-34); MEAN CORPUSCULAR HGB CONC 32 g/dL (32-36); MEAN CORPUSCULAR VOLUME 94 fL (80-99); MEAN PLATELET VOLUME 10.7 fL (9.0-12.2); MONOCYTES # (AUTO) 1.3 10^3/uL (0.0-1.0); MONOCYTES % (AUTO) 10 % (0-12); NEUTROPHILS # (AUTO) 9.7 10^3/uL (1.8-7.8); NEUTROPHILS % (AUTO) 72 % (42-75); PLATELET COUNT 297 10^3/uL (130-400); WHITE BLOOD COUNT 13.5 10^3/uL (4.3-11.0)
[2021-03-28] MEDS ORDERED: ENOXAPARIN 80 MG/0.8 ML (LOVENOX) SYR SC ONE (04:15)
[2021-03-28] MEDS ORDERED: dilTIAZem DRIP PRE-MIX 125 ML IV SCH (04:15)
[2021-03-28] MEDS ORDERED: ENOXAPARIN 40 MG/0.4 ML (LOVENOX) SYR SC ONE (04:15)
[2021-03-28] MEDS ORDERED: ASPIRIN 81 MG CHEW (CHILDREN'S ASA) PO ONE (04:15)
[2021-03-28 04:30] LABS: INR 1.3 (0.8-1.4); PROTHROMBIN TIME PATIENT 16.1 SEC (12.2-14.7)
[2021-03-28 04:34] LABS: ALBUMIN 3.7 GM/DL (3.2-4.5); CHLORIDE 103 MMOL/L (98-107); POTASSIUM 3.7 MMOL/L (3.6-5.0); SODIUM 136 MMOL/L (135-145)
[2021-03-28 04:35] LABS: AMYLASE 13 U/L (25-125)
[2021-03-28 04:37] LABS: GLUCOSE 101 MG/DL (70-105); TOTAL PROTEIN 7.1 GM/DL (6.4-8.2)
[2021-03-28 04:38] LABS: CARBON DIOXIDE 18 MMOL/L (21-32)
[2021-03-28 04:40] LABS: ALKALINE PHOSPHATASE 109 U/L (40-136); CREATININE SERUM 0.75 MG/DL (0.60-1.30); GFR ESTIMATED > 60
[2021-03-28 04:41] LABS: BUN/CREATININE RATIO 19
[2021-03-28 04:43] LABS: ALANINE AMINOTRANSFERASE 70 U/L (0-55); MAGNESIUM 1.7 MG/DL (1.6-2.4)
[2021-03-28 04:44] LABS: CREATINE KINASE 276 U/L (30-200); LIPASE 38 U/L (8-78)
[2021-03-28] MEDS ORDERED: DIGOXIN 0.25 MG/ML (LANOXIN) 2 ML AMP IV ONE ×2 (04:45→06:15)
[2021-03-28 04:51] LABS: CREATINE KINASE MB 3.8 NG/ML (<6.6)
[2021-03-28 05:04] LABS: TSH (THYROID ANALYZER) 4.45 UIU/ML (0.35-4.94)
[2021-03-28] MEDS ORDERED: AMIODARONE FOR BOLUS 150 MG in D5W 100 ML IVPB 100 ML IV ONE (05:15)
[2021-03-28] MEDS ORDERED: AMIODARONE INJECTION 450 MG in D5W IV SOLUTION (EXCEL) 250 ML IV SCH (05:15)
[2021-03-28] MEDS ORDERED: FUROSEMIDE 40 MG/4 ML INJ (LASIX) IVP ONE (05:15)
[2021-03-28 05:39] LABS: BILIRUBIN,URINE NEGATIVE (NEGATIVE); CLARITY,URINE CLEAR; COLOR,URINE YELLOW; GLUCOSE, URINE (UA) NEGATIVE (NEGATIVE); KETONES,URINE NEGATIVE (NEGATIVE); LEUKOCYTE ESTERASE ,URINE NEGATIVE (NEGATIVE); NITRITE,URINE NEGATIVE (NEGATIVE); PH,URINE 5.5 (5-9); PROTEIN,URINE 1+ (NEGATIVE)
[2021-03-28 05:56] LABS: AMPHETAMINE SCREEN, URINE POSITIVE (NEGATIVE); BARBITURATE SCREEN URINE NEGATIVE (NEGATIVE); BENZODIAZEPINES SCREEN URINE NEGATIVE (NEGATIVE); CANNABINOID SCREEN, URINE POSITIVE (NEGATIVE); COCAINE SCREEN URINE NEGATIVE (NEGATIVE); METHADONE STAT NEGATIVE (NEGATIVE); METHAMPHETAMINE SCREEN URINE S POSITIVE (NEGATIVE); OPIATE SCREEN URINE NEGATIVE (NEGATIVE); OXYCODONE STAT NEGATIVE (NEGATIVE); PROPOXYPHENE STAT NEGATIVE (NEGATIVE); TRICYCLIC ANTIDEPRESSANTS SCRE NEGATIVE (NEGATIVE)
[2021-03-28 06:06] LABS: AMORPHOUS SEDIMENT,UR RARE AMOR URATES /LPF; BACTERIA,URINE NEGATIVE /HPF
--- NOTE | 2021-03-28 06:09 | ED General ---
General Chief Complaint: Cardiac/General Problems Stated Complaint: AFIB W/RVR;METHAMPHETAMIONE USE;CHF Nursing Triage Note: TO ED VIA POV AND AMBULATORY TO ROOM 8 WITH C/O KNOTS ON LEFT AND RIGHT SIDE OF ABDOMEN THAT ARE GETTING BIGGER AND MORE PAINFUL. DURING TRIAGE IT WAS NOTED HE HAD ELEVATED HR, PT HAS HX OF AFIB. PLACED ON MONITOR AND FOUND TO BE AFIB, HR 160s. DR. ALFONSO AT BEDSIDE DURING THIS TIME. Nursing Sepsis Screen: No Definite Risk Source of Information: Patient (SOMEWHAT LIMITED HISTORIAN--APPEARS TO BE UNDER THE INFLUENCE OF SOME SUBSTANCE/S) History of Present Illness Date Seen by Provider: Mar 28, 2021 Time Seen by Provider: 03:58 Initial Comments PT ARRIVES VIA POV ( MALE WHO BROUGHT PT TO ER IS ALSO BEING SEEN FOR UNRELATED PROBLEM) C/O PAINFUL "KNOTS" ON RIGHT AND LEFT SIDES OF ABDOMEN THIS IS ONGOING PROBLEM AND STATES THEY ARE GETTING BIGGER SYMPTOMS NO DIFFERENT TODAY HAS NOT SOUGHT CARE UNTIL NOW HAS NOT TAKEN ANYTHING FOR PAIN ON ARRIVAL, PT NOTED TO BE TACHYCARDIC, PLACED ON MONITOR AND IS IN ATRIAL FIBRILLATION WITH RVR. 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 OSMAN "A COUPLE OF WEEKS AGO" PT ALSO WITH LONG HISTORY OF METHAMPHETAMINE USE AFTER INITIALLY DENYING ANY USE "FOR OVER 3 MONTHS", PT LATER ADMITTED THAT HE HAD "3 HITS" ( SMOKED IT) OF METH "4-5 HOURS AGO" PT JUST MOVED HERE A FEW MONTHS AGO FROM [facility]. HAS STATED THAT HE WAS SUPPOSED TO HAVE HAD A CARDIAC ABLATION WHILE HE WAS [facility] IN [facility], BUT NEVER FOLLOWED UP OR HAD THE PROCEDURE DONE. HAS HAD CARDIOVERSIONS IN THE PAST PT WITH LONGSTANDING HISTORY OF NON-COMPLIANCE IN ALL ASPECTS OF CARE. Allergies and Home Medications Allergies Coded Allergies: Penicillins (Verified Allergy, Unknown, 11/09/20) Home Medications No Active Prescriptions or Reported Meds Patient Home Medication List Home Medication List Reviewed: Yes Review of Systems Review of Systems Constitutional: no symptoms reported; No diaphoresis, No dizziness, No malaise, No weakness EENTM: no symptoms reported Respiratory: see HPI, short of breath Cardiovascular: see HPI, chest pain Gastrointestinal: see HPI (PAINFUL "KNOTS" ON SIDES OF ABDOMEN) Genitourinary: no symptoms reported Musculoskeletal: no symptoms reported Skin: no symptoms reported Psychiatric/Neurological: See HPI Hematologic/Lymphatic: No Symptoms Reported Immunological/Allergic: no symptoms reported Past Ypwdmik-Tjkrmt-Rcawdh Hx Past Med/Social Hx: Reviewed and Corrections made Patient Social History Alcohol Use: Regular Use Number of Drinks Today: FF Alcohol Beverage of Choice: Beer, Vodka Drug of Choice: METHAMPHETAMINE, MARIJUANA Smoking Status: Current Everyday Smoker Type Used: Cigarettes 2nd Hand Smoke Exposure: Yes Recent Infectious Disease Expo: No Recent Hopitalizations: No Immunizations Up To Date Tetanus Booster (TDap): Unknown Date of Influenza Vaccine: Aug 09, 2020 Past Medical History Surgeries: Yes (HERNIA REPAIR) Abdominal, Appendectomy Respiratory: No Cardiac: Yes (CHF 30-35% EF) Atrial Fibrillation, Cardiomyopathy, High Cholesterol, Hypertension Neurological: No Genitourinary: No Gastrointestinal: Yes Gastroesophageal Reflux Musculoskeletal: No Endocrine: Yes (OBESITY) HEENT: No Cancer: No Psychosocial: Yes (SUBSTANCE ABUSE) Integumentary: Yes (TATTOOS) Blood Disorders: No Family Medical History SOCIAL HISTORY: -ETOH--REGULAR USE -DRUGS--METHAMPHETAMINES -SMOKES 1 PPD PAST SURGICAL HISTORY: -APPENDECTOMY -HERNIA REPAIR -CARDIOVERSIONS ECHOCARDIOGRAM 11/13/20--EF 30-35%, NO REGIONAL WALL MOTION ABNORMALITIES. EXTREME NON-COMPLIANCE IN ALL ASPECTS OF CARE Physical Exam Vital Signs Vital Signs - First Documented 03/28/21 03/28/21 03:55 04:05 Temp 36.0 Pulse 165 Resp 20 B/P (MAP) 137/113 (121) O2 Delivery Room Air O2 Flow Rate 2.00 Capillary Refill : Less Than 3 Seconds Height, Weight, BMI Height: '" Weight: lbs. oz. kg; 37.00 BMI Method: General Appearance: No Apparent Distress, WD/WN, Obese, Other (CONSTANT MOVEMENTS, FREQUENT HARSH FORCED DRY COUGH) Neck: Normal Inspection Respiratory: Normal Breath Sounds, No Accessory Muscle Use, No Respiratory Distress Cardiovascular: No JVD, No Murmur, Irregularly Irregular, Tachycardia Gastrointestinal: Other (ROTUND, FIRM. MOST OF ABDOMEN WITH MULTIPLE SUB Q NODULARITIES OF VARIOUS SIZES--MANY ARE BB TO PEA SIZED, WITH THE LARGEST ONE TO RIGHT MID ABDOMEN AND IS APPROXIMATELY 4 CM IN DIAMETER--NO OVERLYING SKIN CHANGES. ) Extremity: Normal Inspection, Non Tender, No Pedal Edema Neurologic/Psychiatric: Alert, Oriented x3, No Motor/Sensory Deficits Skin: Normal Color, Warm/Dry, Tattoos/Piercings, Other (MULTIPLE SORES/SCARS/SCABS TO FACE, ARMS, LEGS AND LOWER ABDOMEN--NO EVIDENCE OF INFECTION) Procedures/Interventions Date of ETT Placement: Feb 01, 2021 Progress/Results/Core Measures Suspected Sepsis Recent Fever Within 48 Hours: No Infection Criteria Present: None New/Unexplained Altered Menta: No Sepsis Screen: No Definite Risk SIRS Temperature: Pulse: 142 Respiratory Rate: 16 Laboratory Tests 03/28/21 04:06: White Blood Count 13.5H Blood Pressure 132 /93 Mean: 121 Laboratory Tests 03/28/21 04:06: Creatinine 0.75, INR Comment 1.3, Platelet Count 297, Total Bilirubin 1.0 Results/Orders Lab Results Laboratory Tests Test 03/28/21 04:06 03/28/21 05:07 Range/Units White Blood Count 13.5 H 4.3-11.0 10^3/uL Red Blood Count 4.67 4.30-5.52 10^6/uL Hemoglobin 14.1 13.3-17.7 g/dL Hematocrit 44 40-54 % Mean Corpuscular Volume 94 80-99 fL Mean Corpuscular Hemoglobin 30 25-34 pg Mean Corpuscular Hemoglobin Concent 32 32-36 g/dL Red Cell Distribution Width 16.3 H 10.0-14.5 % Platelet Count 297 130-400 10^3/uL Mean Platelet Volume 10.7 9.0-12.2 fL Immature Granulocyte % (Auto) 0 % Neutrophils (%) (Auto) 72 42-75 % Lymphocytes (%) (Auto) 15 12-44 % Monocytes (%) (Auto) 10 0-12 % Eosinophils (%) (Auto) 3 0-10 % Basophils (%) (Auto) 0 0-10 % Neutrophils # (Auto) 9.7 H 1.8-7.8 10^3/uL Lymphocytes # (Auto) 2.0 1.0-4.0 10^3/uL Monocytes # (Auto) 1.3 H 0.0-1.0 10^3/uL Eosinophils # (Auto) 0.4 H 0.0-0.3 10^3/uL Basophils # (Auto) 0.0 0.0-0.1 10^3/uL Immature Granulocyte # (Auto) 0.1 0.0-0.1 10^3/uL Prothrombin Time 16.1 H 12.2-14.7 SEC INR Comment 1.3 0.8-1.4 Activated Partial Thromboplast Time 35 24-35 SEC Sodium Level 136 135-145 MMOL/L Potassium Level 3.7 3.6-5.0 MMOL/L Chloride Level 103 98-107 MMOL/L Carbon Dioxide Level 18 L 21-32 MMOL/L Anion Gap 15 H 5-14 MMOL/L Blood Urea Nitrogen 14 7-18 MG/DL Creatinine 0.75 0.60-1.30 MG/DL Estimat Glomerular Filtration Rate > 60 BUN/Creatinine Ratio 19 Glucose Level 101 70-105 MG/DL Calcium Level 9.0 8.5-10.1 MG/DL Corrected Calcium 9.2 8.5-10.1 MG/DL Magnesium Level 1.7 1.6-2.4 MG/DL Total Bilirubin 1.0 0.1-1.0 MG/DL Aspartate Amino Transf (AST/SGOT) 79 H 5-34 U/L Alanine Aminotransferase (ALT/SGPT) 70 H 0-55 U/L Alkaline Phosphatase 109 40-136 U/L Total Creatine Kinase 276 H 30-200 U/L Creatine Kinase MB 3.8 <6.6 NG/ML Myoglobin 82.9 10.0-92.0 NG/ML Troponin I < 0.028 <0.028 NG/ML B-Type Natriuretic Peptide 1370.9 H <100.0 PG/ML Total Protein 7.1 6.4-8.2 GM/DL Albumin 3.7 3.2-4.5 GM/DL Amylase Level 13 L 25-125 U/L Lipase 38 8-78 U/L TSH [place] Testing 4.45 0.35-4.94 UIU/ML Serum Alcohol 21 H <10 MG/DL Urine Color YELLOW Urine Clarity CLEAR Urine pH 5.5 5-9 Urine Specific [place] 1.025 H 1.016-1.022 Urine Protein 1+ H NEGATIVE Urine Glucose (UA) NEGATIVE NEGATIVE Urine Ketones NEGATIVE NEGATIVE Urine Nitrite NEGATIVE NEGATIVE Urine Bilirubin NEGATIVE NEGATIVE Urine Urobilinogen 1.0 < = 1.0 MG/DL Urine Leukocyte Esterase NEGATIVE NEGATIVE Urine RBC (Auto) NEGATIVE NEGATIVE Urine RBC NONE /HPF Urine WBC NONE /HPF Urine Crystals PRESENT H /LPF Urine Amorphous Sediment RARE JIHAN URATES H /LPF Urine Bacteria NEGATIVE /HPF Urine Casts NONE /LPF Urine Mucus NEGATIVE /LPF Urine Culture Indicated NO Urine Opiates Screen NEGATIVE NEGATIVE Urine Oxycodone Screen NEGATIVE NEGATIVE Urine Methadone Screen NEGATIVE NEGATIVE Urine Propoxyphene Screen NEGATIVE NEGATIVE Urine Barbiturates Screen NEGATIVE NEGATIVE Ur Tricyclic Antidepressants Screen NEGATIVE NEGATIVE Urine Phencyclidine Screen NEGATIVE NEGATIVE Urine Amphetamines Screen POSITIVE H NEGATIVE Urine Methamphetamines Screen POSITIVE H NEGATIVE Urine Benzodiazepines Screen NEGATIVE NEGATIVE Urine Cocaine Screen NEGATIVE NEGATIVE Urine Cannabinoids Screen POSITIVE H NEGATIVE My Orders Orders - JULIANO ALFONSO DO Ed Iv/Invasive Line Start (03/28/21 04:03) Ekg Tracing (03/28/21 04:03) O2 (03/28/21 04:03) Monitor-Rhythm Ecg Trace Only (03/28/21 04:03) Chest 1 View, Ap/Pa Only (03/28/21 04:03) Alcohol (03/28/21 04:03) Amylase (03/28/21 04:03) BNP (03/28/21 04:03) Cbc With Automated Diff (03/28/21 04:03) Comprehensive Metabolic Panel (03/28/21 04:03) Creatine Kinase (03/28/21 04:03) Creatine Kinase Mb (03/28/21 04:03) Drug Screen Stat (Urine) (03/28/21 04:03) Lipase (03/28/21 04:03) Magnesium (03/28/21 04:03) Protime With Inr (03/28/21 04:03) Partial Thromboplastin Time (03/28/21 04:03) Thyroid Analyzer (03/28/21 04:03) Ua Culture If Indicated (03/28/21 04:03) Myoglobin Serum (03/28/21 04:03) Troponin I (03/28/21 04:03) Ed Iv/Invasive Line Start (03/28/21 04:03) Aspirin Chewable Tablet (Baby Aspirin Ch (03/28/21 04:15) Diltiazem Injection (Cardizem Injection) (03/28/21 04:15) Diltiazem Drip Pre-Mix (Cardizem Drip Pr (03/28/21 04:15) Enoxaparin Injection (Lovenox Injection) (03/28/21 04:15) Enoxaparin Injection (Lovenox Injection) (03/28/21 04:15) Ekg Tracing (03/28/21 04:03) Digoxin Injection (Lanoxin Injection) (03/28/21 04:45) Amiodarone For Bolus (Cordarone Bolus) (03/28/21 05:15) Amiodarone Injection (Cordarone Injectio (03/28/21 05:15) Furosemide Injection (Lasix Injection) (03/28/21 05:15) Medications Given in ED Current Medications Medications Dose Ordered Sig/[place] Route Start Time Stop Time Status Last Admin Dose Admin Amiodarone HCl 150 mg/Dextrose 103 ml @ 600 mls/hr ONCE ONCE IV 03/28/21 05:15 03/28/21 05:25 DC 03/28/21 05:58 600 MLS/HR Aspirin 324 mg ONCE ONCE PO 03/28/21 04:15 03/28/21 04:17 DC 03/28/21 04:16 324 MG Digoxin 0.25 mg ONCE ONCE IV 03/28/21 04:45 03/28/21 04:46 DC 03/28/21 04:40 0.25 MG Diltiazem HCl 20 mg ONCE ONCE IVP 03/28/21 04:15 03/28/21 04:17 DC 03/28/21 04:15 20 MG Enoxaparin Sodium 40 mg ONCE ONCE SC 03/28/21 04:15 03/28/21 04:17 DC 03/28/21 04:18 40 MG Enoxaparin Sodium 80 mg ONCE ONCE SC 03/28/21 04:15 03/28/21 04:17 DC 03/28/21 04:18 80 MG Furosemide 80 mg ONCE ONCE IVP 03/28/21 05:15 03/28/21 05:16 DC 03/28/21 05:39 80 MG Vital Signs/I&O 03/28/21 03/28/21 03:55 04:05 Temp 36.0 Pulse 165 Resp 20 B/P (MAP) 137/113 (121) O2 Delivery Room Air Nasal Cannula O2 Flow Rate 2.00 Capillary Refill : Less Than 3 Seconds Blood Pressure Mean: 121 Progress Note : Progress Note GIVEN ASPIRIN AND LOVENOX GAVE LASIX GIVEN CARDIZEM BOLUS AND PLACED ON A CARDIZEM DRIP--MAXED OUT AT 20 MG/HR ON THE DRIP--NO IMPROVEMENT IN HEART RATE GAVE DIGOXIN 0.25 MG IV--NO CHANGE IN HEART RATE GAVE AMIODARONE 150 MG BOLUS AND PLACED ON CARDIZEM DRIP PT STILL WITH HEART RATE IN 140-160'S NO DETERIORATION IN PT'S CONDITION DURING ER STAY NO DROP IN BP--REMAINS IN 130/80'S. NO DYSPNEA OR HYPOXIA. NO DIAPHORESIS, NO COMPLAINT OF CHEST PAIN OR SHORTNESS OF BREATH FOR REMAINDER OF ER STAY ECG Initial ECG Impression Date: Mar 28, 2021 Initial ECG Impression Time: 04:02 Initial ECG Rate: 159 Initial ECG Rhythm: A Fib/Flutter Initial ECG Impression: Nonspecific Changes (DIFFUSE ST DEPRESSION), Atrial Fibrillation w/RVR Diagnostic Imaging Comments CXR--CHF, PENDING RADIOLOGIST REVIEW Reviewed: Reviewed by Me Departure Communication (Admissions) 0511--SPOKE WITH DR. DUBON, UTILITY WORKER, AGREES WITH CURRENT THERAPY. NO ADDITIONAL RECOMMENDATIONS AT THIS TIME. WILL KEEP NPO [id number]--SPOKE WITH DR. COLE, HOSPITALIST FOR [facility], ACCEPTS PT FOR ADMIT. Impression Primary Impression: Atrial fibrillation with RVR Additional Impressions: CHF (congestive heart failure) Methamphetamine use Non-compliance SUB Q NODULES OF ABDOMEN Disposition: ADMITTED INPATIENT Condition: Stable Admissions Decision to Admit Reason: Admit from ER (General) Decision to Admit/Date: Mar 28, 2021 Time/Decision to Admit Time: 05:10 Departure-Patient Inst. Referrals: [facility] (PCP/Family) Primary Care Physician Scripts No Active Prescriptions or Reported Meds JULIANO ALFONSO DO Mar 28, 2021 06:09
[2021-03-28] MEDS ORDERED: 1/2 NS IV SOLUTION 1,000 ML IV ONE (06:32)
[2021-03-28] MEDS ORDERED: ACETAMINOPHEN 500 MG TAB (TYLENOL) PO PRN (06:45)
[2021-03-28] MEDS ORDERED: AMIODARONE 450 MG/250 ML D5W EXCEL IV SCH ×2 (06:45)
[2021-03-28] MEDS: 1/2 NS IV SOLUTION 1,000 ML IV SCH (07:07)
[2021-03-28] MEDS: dilTIAZem DRIP PRE-MIX 125 ML IV SCH ×3 (07:11→17:03)
--- NOTE | 2021-03-28 08:05 | Diagnostic Imaging Report ---
INDICATION: Congestive heart failure and atrial fibrillation. Single AP view of the chest is obtained with comparison made study of 02/09/2021. Heart size and pulmonary vascularity are at the upper limits of normal. There is no evidence of pneumothorax or consolidation. No significant pleural fluid is identified. IMPRESSION: Heart size and pulmonary vascularity are prominent without overt pulmonary edema identified. Dictated by: Dictated on workstation # [id number]
--- NOTE | 2021-03-28 08:41 | History & Physical-Hospitalist ---
History of Present Illness HPI/Chief Complaint Chief complaint: Atrial fibrillation with rapid ventricular response with meth use History of present illness: This is a 40-year-old white male history of meth use and atrial fibrillation who presented to the ER with palpitations. Patient underwent a transesophageal echocardiogram revealing a thrombus so cardioversion was not performed. Source: patient Exam Limitations: no limitations Date Seen 03/28/21 Time Seen by a Provider: 11:30 Attending Physician Erin Parsons DO [facility] Referring Physician Date of Admission Mar 28, 2021 at 05:15 Home Medications & Allergies Home Medications Reviewed patient Home Medication Reconciliation performed by pharmacy medication reconciliations wheel alignment technician and/or nursing. Patients Allergies have been reviewed. Allergies Allergies Coded Allergies Penicillins (Verified Allergy, Unknown, 11/09/20) Past Enuywcn-Blhzye-Grfwhx Hx Patient Social History Marrital Status: single Employed/Student: unemployed Tobacco Use?: Yes Tobacco type used: Cigarettes Smoking Status: Current Everyday Smoker Smokeless Tobacco Frequency: Current Everyday User Substance use?: Yes Substance type: Amphetamines, Methamphetamine, Marijuana Substance frequency: Daily Pt feels they are or have been: No Immunizations Up To Date Date of Influenza Vaccine: Aug 09, 2020 Tetanus Booster (TDap): Unknown Hepatitis A: No Hepatitis B: No Current Status Advance Directives: No Communicates: Verbally Primary Language: South African Preferred Spoken Language: South African Is interpretation needed?: No Past Medical History Surgeries: Abdominal, Appendectomy Atrial Fibrillation, Cardiomyopathy, High Cholesterol, Hypertension Gastroesophageal Reflux Blood Disorders: No AF Meth use Family Medical History SOCIAL HISTORY: -ETOH--REGULAR USE -DRUGS--METHAMPHETAMINES -SMOKES 1 PPD PAST SURGICAL HISTORY: -APPENDECTOMY -HERNIA REPAIR -CARDIOVERSIONS ECHOCARDIOGRAM 11/13/20--EF 30-35%, NO REGIONAL WALL MOTION ABNORMALITIES. EXTREME NON-COMPLIANCE IN ALL ASPECTS OF CARE Review of Systems Constitutional: see HPI Respiratory: dyspnea on exertion Cardiovascular: palpitations Physical Exam Physical Exam Vital Signs Vital Signs - First Documented 03/28/21 03/28/21 03/28/21 03:55 04:05 06:00 Temp 36.0 Pulse 165 Resp 20 B/P (MAP) 137/113 (121) Pulse Ox 99 O2 Delivery Room Air O2 Flow Rate 2.00 Capillary Refill : Less Than 3 Seconds Height, Weight, BMI Height: '" Weight: lbs. oz. kg; 32.20 BMI Method: General Appearance: No Apparent Distress, WD/WN, Chronically ill Respiratory: Decreased Breath Sounds Cardiovascular: Irregularly Irregular, Tachycardia Neurologic/Psychiatric: Alert, Oriented x3 Results Results/Procedures Labs Laboratory Tests 03/28/21 04:06 Patient resulted labs reviewed. Assessment/Plan Admission Diagnosis Assessment: Atrial fibrillation with rapid ventricular response Meth use Thrombus on transesophageal echocardiogram Plan: Rate control Admission Status: Inpatient Order (span 2 midnights) Reason for Inpatient Admission: Atrial fibrillation with rapid ventricular response with thrombus on PHILLIP Diagnosis/Problems Diagnosis/Problems (1) Atrial fibrillation with RVR Status: Acute (2) Non-compliance Status: Acute (3) Methamphetamine use Status: Acute ERIN PARSONS DO Mar 28, 2021 08:41
--- NOTE | 2021-03-28 09:06 | Tele-ICU Consult ---
History of Present Illness History of Present Illness Date Seen by Provider: Mar 28, 2021 Time Seen by Provider: 08:55 Date of Admission 03-28-2021 History of Present Illness Patient visualized via eICU video input and he consented for interrogatio by virtual visit. He is a 40-year-old male with a past medical history of phone methamphetamine abuse apparently used about 3 to 4 hours prior to the admission to the emergency room with a complaint of right-sided abdominal pain with moderate to severe tenderness. He is also found to have atrial fibrillation with rapid ventricular rate. He has a history of atrial fibrillation when he was in [facility] who from which he moved to this area recently. Apparently had a cardioversion in the past but was unsuccessful. He is advised to have a ablation but he did not follow through. He is currently on Cardizem and amiodarone. Direct Mail Manager on the case. Upon discussion with the RN she tells me that he is scheduled for cardioversion this a.m. I have interviewed the patient via eICU video camera. He complains of moderate to severe right- sided pain which sounds like it is in the abdominal wall. The examination report below per the attending physician. This tele Icu physician not examined the patient Allergies and Home Medications Allergies Coded Allergies: Penicillins (Verified Allergy, Unknown, 11/09/20) Home Medications No Active Prescriptions or Reported Meds Past Medical/Social/Family Hx Patient Social History Tobacco Use?: Yes Tobacco type used: Cigarettes Smoking Status: Current Everyday Smoker Smokeless Tobacco Frequency: Current Everyday User Substance use?: Yes Substance type: Amphetamines, Methamphetamine, Marijuana Substance frequency: Daily Pt stated abuse/neglect: No Immunizations Up To Date Influenza Vaccine Up-to-Date: Yes; Up-to-Date Tetanus Booster (TDap): Unknown Hepatitis A: No Hepatitis B: No TB Skin Test: None Current Status Advance Directives: No Communicates: Verbally Primary Language: Persian Preferred Spoken Language: Persian Is interpretation needed?: No Past Medical History AF Meth use Family Medical History Family Hx: SOCIAL HISTORY: -ETOH--REGULAR USE -DRUGS--METHAMPHETAMINES -SMOKES 1 PPD PAST SURGICAL HISTORY: -APPENDECTOMY -HERNIA REPAIR -CARDIOVERSIONS ECHOCARDIOGRAM 11/13/20--EF 30-35%, NO REGIONAL WALL MOTION ABNORMALITIES. EXTREME NON-COMPLIANCE IN ALL ASPECTS OF CARE Review of Systems Constitutional: see HPI EENTM: see HPI Respiratory: see HPI Cardiovascular: see HPI Gastrointestinal: abdominal pain (RUQ) Genitourinary: see HPI Musculoskeletal: see HPI Skin: see HPI Psychiatric/Neurological: See HPI Sepsis Event Evaluation Height, Weight, BMI Height: '" Weight: lbs. oz. kg; 32.20 BMI Method: Bedside Monitoring Date besdie monitoring occurre: Mar 28, 2021 Time bedside monitoring occure: 05:00 Exam Exam Patient acknowledged, consented, and participated in this virtual visit which was conducted using real time audio/video Vital Signs Date Time Temp Pulse Resp B/P (MAP) Pulse Ox O2 Delivery O2 Flow Rate FiO2 03/28/21 08:00 146 12 113/96 (102) 98 Nasal Cannula 2.00 03/28/21 08:00 36.3 03/28/21 07:30 Room Air 03/28/21 07:00 144 03/28/21 07:00 152 16 122/97 (105) 96 Nasal Cannula 2.00 03/28/21 06:40 36.6 147 22 128/90 (103) 97 Nasal Cannula 2.00 03/28/21 06:00 36.0 142 16 132/93 (121) 99 Nasal Cannula 2.00 03/28/21 05:58 163 03/28/21 04:05 Nasal Cannula 2.00 03/28/21 03:55 36.0 165 20 137/113 (121) Room Air I & O 03/28/21 07:00 Intake Total 103 ml Output Total 850 ml Balance -747 ml Height & Weight Height: '" Weight: lbs. oz. kg; 32.20 BMI Method: General Appearance: No Apparent Distress (ruq pain), WD/WN (the above physical exam per attending physician. I have not examined the pt but d/w RN), Obese, Other (CONSTANT MOVEMENTS, FREQUENT HARSH FORCED DRY COUGH) Neck: No Full Range of Motion; Normal Inspection; No Non Tender, No Supple, No Carotid Bruit, No JVD, No Limited Range of Motion, No Lymphadenopathy (L), No Lymphadenopathy (R), No Tender Lateral, No Tender Midline, No Thyromegaly, No Other Respiratory: Normal Breath Sounds, No Accessory Muscle Use, No Respiratory Distress Cardiovascular: No JVD, No Murmur, Irregularly Irregular, Tachycardia Capillary Refill: Less Than 3 Seconds Extremity: Normal Inspection, Non Tender, No Pedal Edema Neurologic/Psychiatric: Alert, Oriented x3, No Motor/Sensory Deficits Skin: Normal Color, Warm/Dry, Tattoos/Piercings, Other (MULTIPLE SORES/SCARS/SCABS TO FACE, ARMS, LEGS AND LOWER ABDOMEN--NO EVIDENCE OF INFECTION) Results Lab Laboratory Tests 03/28/21 04:06 Assessment/Plan Assessment/Plan 1. Atrial fibrillation with rapid ventricular rate 2. Right upper quadrant pain 3. Methamphetamine abuse 4. History of alcohol abuse and tobacco abuse. Recommendations 1. Continue Cardizem and amiodarone per cardiology 2. He is scheduled for a cardioversion 3. We will give him thiamine and folic acid 4. Right upper quadrant ultrasound. 5.Substance abuse counseling per bedside physician. Discussed with the MACHINE BOSSELROY Coughlin Critical Care: Critically Ill Patient Advance Care discuss with: patient Time spent on discussion(mins): 20 Diagnosis/Problems Problems/Diagonsis (1) Atrial fibrillation with RVR Status: Acute (2) Abdominal pain (3) Substance abuse JUS JOSEPH MD Mar 28, 2021 09:05
[2021-03-28] MEDS ORDERED: proPOfol 200 MG/20 ML (DIPRIVAN) VIAL IV ONE (09:29)
[2021-03-28] MEDS ORDERED: LIDOCAINE 2% VISCOUS 15 ML UDC ONE (09:29)
[2021-03-28] MEDS ORDERED: MIDAZOLAM 5 MG/5 ML (VERSED) VIAL ONE (09:29)
[2021-03-28] MEDS ORDERED: NORMAL SALINE 250 ML ONE (09:29)
--- NOTE | 2021-03-28 09:49 | Consultation-Cardiology ---
HPI-Cardiology Cardiology Consultation Date of Consultation 03/28/21 Date of Admission Time Seen by Provider: 09:44 Indication: Atrial fibrillation HPI 40 years old gentleman with history of congestive heart failure, methamphetamine use, paroxysmal atrial fibrillation, noncompliant with medication. Did not take his medication for a while. Came in with right-sided flank pain and palpitation and shortness of breath, noted to be in atrial fibrillation with rapid ventricular response, did not respond to aggressive treatment with diltiazem IV and a drip in addition to amiodarone and digoxin IV. Still in atrial fibrillation with a heart rate 140. Feeling palpitation mild dyspnea. No chest pain. Home Medications & Allergies Allergies: Coded Allergies: Penicillins (Verified Allergy, Unknown, 11/09/20) Home Medication List Reviewed: Yes ADR-Najgxe-Yqcwzs Hx Patient Social History Recreational Drug Use: Yes Drug of Choice: METHAMPHETAMINE, MARIJUANA Smoking Status: Current Everyday Smoker Type Used: Cigarettes 2nd Hand Smoke Exposure: Yes Recent Hopitalizations: No Have you traveled recently?: No Substance type: Amphetamines, Methamphetamine, Marijuana Immunizations Up To Date Tetanus Booster (TDap): Unknown Date of Influenza Vaccine: Aug 09, 2020 Past Medical History Discussed below Family Medical History Family Medical Hx Noncontributory Review of Systems-General Review of Systems Constitutional: no symptoms reported; No diaphoresis, No dizziness; malaise; No weakness EENTM: no symptoms reported Respiratory: see HPI; No cough, No dyspnea on exertion, No hemoptysis, No orthopnea, No phlegm; short of breath; No stridor, No wheezing, No other Cardiovascular: see HPI, chest pain; No edema, No Hx of Intervention; palpitations; No syncope, No vascular heart diseas, No other Gastrointestinal: see HPI (PAINFUL "KNOTS" ON SIDES OF ABDOMEN), abdominal pain (RLQ) Genitourinary: no symptoms reported, see HPI Musculoskeletal: no symptoms reported, see HPI Skin: no symptoms reported, see HPI Psychiatric/Neurological: See HPI Reviewed Test Results Reviewed Test Results Lab Laboratory Tests Test 03/28/21 04:06 03/28/21 05:07 Range/Units White Blood Count 13.5 H 4.3-11.0 10^3/uL Red Blood Count 4.67 4.30-5.52 10^6/uL Hemoglobin 14.1 13.3-17.7 g/dL Hematocrit 44 40-54 % Mean Corpuscular Volume 94 80-99 fL Mean Corpuscular Hemoglobin 30 25-34 pg Mean Corpuscular Hemoglobin Concent 32 32-36 g/dL Red Cell Distribution Width 16.3 H 10.0-14.5 % Platelet Count 297 130-400 10^3/uL Mean Platelet Volume 10.7 9.0-12.2 fL Immature Granulocyte % (Auto) 0 % Neutrophils (%) (Auto) 72 42-75 % Lymphocytes (%) (Auto) 15 12-44 % Monocytes (%) (Auto) 10 0-12 % Eosinophils (%) (Auto) 3 0-10 % Basophils (%) (Auto) 0 0-10 % Neutrophils # (Auto) 9.7 H 1.8-7.8 10^3/uL Lymphocytes # (Auto) 2.0 1.0-4.0 10^3/uL Monocytes # (Auto) 1.3 H 0.0-1.0 10^3/uL Eosinophils # (Auto) 0.4 H 0.0-0.3 10^3/uL Basophils # (Auto) 0.0 0.0-0.1 10^3/uL Immature Granulocyte # (Auto) 0.1 0.0-0.1 10^3/uL Prothrombin Time 16.1 H 12.2-14.7 SEC INR Comment 1.3 0.8-1.4 Activated Partial Thromboplast Time 35 24-35 SEC Sodium Level 136 135-145 MMOL/L Potassium Level 3.7 3.6-5.0 MMOL/L Chloride Level 103 98-107 MMOL/L Carbon Dioxide Level 18 L 21-32 MMOL/L Anion Gap 15 H 5-14 MMOL/L Blood Urea Nitrogen 14 7-18 MG/DL Creatinine 0.75 0.60-1.30 MG/DL Estimat Glomerular Filtration Rate > 60 BUN/Creatinine Ratio 19 Glucose Level 101 70-105 MG/DL Calcium Level 9.0 8.5-10.1 MG/DL Corrected Calcium 9.2 8.5-10.1 MG/DL Magnesium Level 1.7 1.6-2.4 MG/DL Total Bilirubin 1.0 0.1-1.0 MG/DL Aspartate Amino Transf (AST/SGOT) 79 H 5-34 U/L Alanine Aminotransferase (ALT/SGPT) 70 H 0-55 U/L Alkaline Phosphatase 109 40-136 U/L Total Creatine Kinase 276 H 30-200 U/L Creatine Kinase MB 3.8 <6.6 NG/ML Myoglobin 82.9 10.0-92.0 NG/ML Troponin I < 0.028 <0.028 NG/ML B-Type Natriuretic Peptide 1370.9 H <100.0 PG/ML Total Protein 7.1 6.4-8.2 GM/DL Albumin 3.7 3.2-4.5 GM/DL Amylase Level 13 L 25-125 U/L Lipase 38 8-78 U/L TSH [place] Testing 4.45 0.35-4.94 UIU/ML Serum Alcohol 21 H <10 MG/DL Urine Color YELLOW Urine Clarity CLEAR Urine pH 5.5 5-9 Urine Specific [place] 1.025 H 1.016-1.022 Urine Protein 1+ H NEGATIVE Urine Glucose (UA) NEGATIVE NEGATIVE Urine Ketones NEGATIVE NEGATIVE Urine Nitrite NEGATIVE NEGATIVE Urine Bilirubin NEGATIVE NEGATIVE Urine Urobilinogen 1.0 < = 1.0 MG/DL Urine Leukocyte Esterase NEGATIVE NEGATIVE Urine RBC (Auto) NEGATIVE NEGATIVE Urine RBC NONE /HPF Urine WBC NONE /HPF Urine Crystals PRESENT H /LPF Urine Amorphous Sediment RARE JIHAN URATES H /LPF Urine Bacteria NEGATIVE /HPF Urine Casts NONE /LPF Urine Mucus NEGATIVE /LPF Urine Culture Indicated NO Urine Opiates Screen NEGATIVE NEGATIVE Urine Oxycodone Screen NEGATIVE NEGATIVE Urine Methadone Screen NEGATIVE NEGATIVE Urine Propoxyphene Screen NEGATIVE NEGATIVE Urine Barbiturates Screen NEGATIVE NEGATIVE Ur Tricyclic Antidepressants Screen NEGATIVE NEGATIVE Urine Phencyclidine Screen NEGATIVE NEGATIVE Urine Amphetamines Screen POSITIVE H NEGATIVE Urine Methamphetamines Screen POSITIVE H NEGATIVE Urine Benzodiazepines Screen NEGATIVE NEGATIVE Urine Cocaine Screen NEGATIVE NEGATIVE Urine Cannabinoids Screen POSITIVE H NEGATIVE Physical Exam Physical Exam Vital Signs Vital Signs - First Documented 03/28/21 03/28/21 03/28/21 03:55 04:05 06:00 Temp 36.0 Pulse 165 Resp 20 B/P (MAP) 137/113 (121) Pulse Ox 99 O2 Delivery Room Air O2 Flow Rate 2.00 Capillary Refill : Less Than 3 Seconds Height, Weight, BMI Height: '" Weight: lbs. oz. kg; 32.20 BMI Method: General Appearance: No Apparent Distress, WD/WN, Obese, Other (CONSTANT MOVEMENTS, FREQUENT HARSH FORCED DRY COUGH) Neck: Normal Inspection Respiratory: Normal Breath Sounds, No Accessory Muscle Use, No Respiratory Distress Cardiovascular: No JVD, No Murmur, Irregularly Irregular, Tachycardia Gastrointestinal: Other (ROTUND, FIRM. MOST OF ABDOMEN WITH MULTIPLE SUB Q NODULARITIES OF VARIOUS SIZES--MANY ARE BB TO PEA SIZED, WITH THE LARGEST ONE TO RIGHT MID ABDOMEN AND IS APPROXIMATELY 4 CM IN DIAMETER--NO OVERLYING SKIN CHANGES. ) Extremity: Normal Inspection, Non Tender, No Pedal Edema Neurologic/Psychiatric: Alert, Oriented x3, No Motor/Sensory Deficits Skin: Normal Color, Warm/Dry, Tattoos/Piercings, Other (MULTIPLE SORES/SCARS/SCABS TO FACE, ARMS, LEGS AND LOWER ABDOMEN--NO EVIDENCE OF INFECTION) A/P-Cardiology Admission Diagnosis Paroxysmal atrial fibrillation Congestive heart failure, acute on chronic left ventricular systolic dysfunction, nonischemic cardiomyopathy Hypertension Hyperlipidemia Assessment/Plan Paroxysmal atrial fibrillation, noncompliant with medication, educated about the importance of compliance with medication, difficult to control rate. I will proceed with PHILLIP and possible cardioversion, continue on diltiazem drip, amiodarone drip and digoxin Shortness of breath, pulmonary edema secondary to congestive heart failure and atrial fibrillation, starting on diuretics Congestive heart failure, acute on chronic left ventricular diastolic dysfunction, ejection fraction 30 to 35%. Starting beta-blockers and ARB Hypertension, noncompliant with medication, monitor blood pressure Hyperlipidemia History of alcoholism, educated on avoiding alcohol History of methamphetamine abuse, educated on avoiding any illicit drugs Tobaccoism, educated on avoiding tobacco products Noncompliance with medication, educated in length about compliance with medications Patient is followed by Dr. Bejarano. DEMIAN DUBON MD Mar 28, 2021 09:49
--- NOTE | 2021-03-28 09:49 | Conscious Sedation/ASA ---
Conscious Sedation Pre-Proced Time 09:49 ASA Score 3 For ASA 3 and 4: Consider anesthesia and medical clearance. Also, for patients with a history of failed moderate sedation consider anesthesia. Airway Lungs Heart ASA score ASA 1: a normal healthy patient ASA 2: a patient with a mild systemic disease (mid diabetes, controlled hypertension, obesity x ASA 3: a patient with a severe systemic disease that limits activity (angina, COPD, prior Myocardial infarction) ASA 4: a patient with an incapacitating disease that is a constant threat to life (CHF, renal failure) ASA 5: a moribund patient not expected to survive 24 hrs. (ruptured aneurysm) ASA 6: a declared brain- patient whose organs are being harvested. For emergent operations, add the letter E after the classification Mallampati Classification Grade 3 Sedation Plan Analgesia, Amnesia, Plan communicated to team members, Discussed options with patient/fam, Discussed risks with patient/fam The patient is an appropriate candidate to undergo the planned procedure, sedation, and anesthesia. The patient immediately re-assessed prior to indication. DEMIAN DUBON MD Mar 28, 2021 09:49
[2021-03-28] MEDS ORDERED: ONDANSETRON 4 MG/2 ML (SDV) Z0FRAN IVP PRN (10:15)
[2021-03-28] MEDS ORDERED: meTOprolol 5 MG/5 ML (LOPRESSOR) VIAL IV ONE (10:45)
--- NOTE | 2021-03-28 10:53 | Anesthesia-General Post-Op ---
MAC Patient Condition Mental Status/LOC: Same as Preop Cardiovascular: Satisfactory Nausea/Vomiting: Absent Respiratory: Satisfactory Pain: Controlled Complications: Absent Post Op Complications Complications None Follow Up Care/Instructions Patient Instructions None needed. Anesthesiology Discharge Order Discharge Order Patient is doing well, no complaints, stable vital signs, no apparent adverse anesthesia problems. No complications reported per nursing. ANALI TURNER MECHANICAL MANAGER Mar 28, 2021 10:53
[2021-03-28] MEDS: THIAMINE 100 MG (VITAMIN B-1) TAB PO SCH (11:59)
[2021-03-28] MEDS: FOLIC ACID 1 MG TAB PO SCH (11:59)
[2021-03-28] MEDS: meTOprolol TARTRATE 25 MG (LOPRESSOR) TABLET PO SCH ×2 (11:59→20:14)
[2021-03-28] MEDS ORDERED: FUROSEMIDE 40 MG/4 ML INJ (LASIX) IVP NR (12:00)
[2021-03-28] MEDS: ENOXAPARIN 60 MG/0.6 ML (LOVENOX) SYR SC SCH (16:58)
[2021-03-28] MEDS: fentaNYL INJ 100 MCG/2 ML AMP IVP PRN ×2 (17:04→22:09)
[2021-03-28] MEDS ORDERED: LORazepam INJ 2 MG/ML (ATIVAN) VIAL IVP ONE (20:15)
[2021-03-28] MEDS: LORazepam INJ 2 MG/ML (ATIVAN) VIAL IVP PRN (22:09)
[2021-03-29] MEDS: LORazepam INJ 2 MG/ML (ATIVAN) VIAL IVP PRN ×7 (00:05→20:47)
[2021-03-29] MEDS: fentaNYL INJ 100 MCG/2 ML AMP IVP PRN ×4 (03:06→21:39)
[2021-03-29 04:47] LABS: BASOPHILS # (AUTO) 0.1 10^3/uL (0.0-0.1); BASOPHILS % (AUTO) 1 % (0-10); EOSINOPHILS # (AUTO) 0.6 10^3/uL (0.0-0.3); EOSINOPHILS % (AUTO) 5 % (0-10); HEMATOCRIT 44 % (40-54); HEMOGLOBIN 13.8 g/dL (13.3-17.7); LYMPHOCYTES # (AUTO) 2.3 10^3/uL (1.0-4.0); LYMPHOCYTES % (AUTO) 19 % (12-44); MEAN CORPUSCULAR HEMOGLOBIN 30 pg (25-34); MEAN CORPUSCULAR HGB CONC 32 g/dL (32-36); MEAN CORPUSCULAR VOLUME 94 fL (80-99); MEAN PLATELET VOLUME 11.7 fL (9.0-12.2); MONOCYTES # (AUTO) 1.2 10^3/uL (0.0-1.0); MONOCYTES % (AUTO) 10 % (0-12); NEUTROPHILS # (AUTO) 8.3 10^3/uL (1.8-7.8); NEUTROPHILS % (AUTO) 66 % (42-75); PLATELET COUNT 297 10^3/uL (130-400); WHITE BLOOD COUNT 12.6 10^3/uL (4.3-11.0)
[2021-03-29 04:58] LABS: ALBUMIN 3.5 GM/DL (3.2-4.5); CHLORIDE 98 MMOL/L (98-107); POTASSIUM 3.4 MMOL/L (3.6-5.0); SODIUM 135 MMOL/L (135-145)
[2021-03-29 04:59] LABS: CALCIUM 8.7 MG/DL (8.5-10.1)
[2021-03-29 05:00] LABS: GLUCOSE 104 MG/DL (70-105); TOTAL PROTEIN 6.9 GM/DL (6.4-8.2)
[2021-03-29 05:01] LABS: CARBON DIOXIDE 21 MMOL/L (21-32)
[2021-03-29 05:02] LABS: BILIRUBIN,TOTAL 1.3 MG/DL (0.1-1.0)
[2021-03-29 05:03] LABS: PHOSPHORUS 3.5 MG/DL (2.3-4.7)
[2021-03-29 05:04] LABS: ALKALINE PHOSPHATASE 122 U/L (40-136); CREATININE SERUM 0.89 MG/DL (0.60-1.30); GFR ESTIMATED > 60
[2021-03-29 05:05] LABS: BUN/CREATININE RATIO 20
[2021-03-29 05:07] LABS: ALANINE AMINOTRANSFERASE 58 U/L (0-55); MAGNESIUM 1.6 MG/DL (1.6-2.4)
[2021-03-29 05:16] LABS: CREATINE KINASE MB 2.6 NG/ML (<6.6)
[2021-03-29] MEDS: KCL 20 MEQ TAB (K-DUR) PO SCH (05:39)
[2021-03-29] MEDS: POTASSIUM CL 10MEQ/50ML IVPB 50 ML IV SCH ×5 (05:40→14:03)
[2021-03-29] MEDS: MAGNESIUM 1 GM/100 ML IVPB 100 ML IV SCH ×3 (05:40→06:30)
[2021-03-29] MEDS: ENOXAPARIN 60 MG/0.6 ML (LOVENOX) SYR SC SCH (05:46)
--- NOTE | 2021-03-29 05:55 | Progress Note - Hospitalist ---
Subjective HPI/CC On Admission Date Seen by Provider: Mar 29, 2021 Time Seen by Provider: 11:30 Chief complaint: Atrial fibrillation with rapid ventricular response with meth use History of present illness: This is a 40-year-old white male history of meth use and atrial fibrillation who presented to the ER with palpitations. Patient underwent a transesophageal echocardiogram revealing a thrombus so cardioversion was not performed. Subjective/Events-last exam Patient currently sleeping Rate is controlled much better Cardizem drip maintained Amiodarone maintained Review of Systems General: Fatigue, Malaise Focused Exam Time of Focused Exam: 05:00 Objective Exam Vital Signs Vital Signs Date Time Temp Pulse Resp B/P (MAP) Pulse Ox O2 Delivery O2 Flow Rate FiO2 03/30/21 06:00 78 18 119/87 (93) 97 Room Air 03/29/21 19:48 36.5 03/29/21 12:00 Capillary Refill : Less Than 3 Seconds General Appearance: No Apparent Distress, WD/WN, Chronically ill Respiratory: Lungs Clear Cardiovascular: Irregularly Irregular Results/Procedures Lab Laboratory Tests 03/29/21 18:02 03/30/21 03:37 Patient resulted labs reviewed. Assessment/Plan Assessment and Plan Assess & Plan/Chief Complaint Assessment: Atrial fibrillation with rapid ventricular response Meth use Thrombus on transesophageal echocardiogram Plan: Rate control 03/29/2021: Anticoagulation Rate control Critical Care Critically Ill Patient Diagnosis/Problems Diagnosis/Problems (1) Atrial fibrillation with RVR Status: Acute (2) Non-compliance Status: Acute (3) Methamphetamine use Status: Acute BK COLE DO Mar 29, 2021 05:55
[2021-03-29] MEDS: THIAMINE 100 MG (VITAMIN B-1) TAB PO SCH (07:06)
[2021-03-29] MEDS: 1/2 NS IV SOLUTION 1,000 ML IV SCH ×2 (07:06→14:03)
--- NOTE | 2021-03-29 08:48 | Cardiology Progress Note ---
Subjective Date Seen by Provider: Mar 29, 2021 Time Seen by Provider: 08:46 Subjective/Events-last exam Patient was seen at bedside, laying down comfortably, no new complaint. Denied any chest pain. Sleepy. Review of Systems General: No Chills, No Night Sweats; Fatigue; No Malaise, No Appetite, No Other HEENT: No Head Aches, No Visual Changes, No Eye Pain, No Ear Pain, No Dysphasia, No Sinus Congestion, No Post Nasal Drip, No Sore Throat, No Other Pulmonary: No Dyspnea, No Cough, No Pleuritic Chest Pain, No Other Cardiovascular: No: Chest Pain, Palpitations, Orthopnea, Paroxysmal Noc. Dyspnea, Edema, Lt Headedness, Other Focused Exam Time of Focused Exam: 05:00 Objective-Cardiology Exam Last Set of Vital Signs Vital Signs 03/28/21 03/29/21 03/29/21 21:00 08:00 08:13 Temp 36.9 Pulse 85 Resp 16 B/P (MAP) 120/72 (88) Pulse Ox 92 O2 Delivery Room Air O2 Flow Rate 97.00 Capillary Refill : Less Than 3 Seconds I&O Intake and Output 03/28/21 23:59 Intake Total 1688 ml Output Total 5750 ml Balance -4062 ml Intake Oral 1210 ml IV Total 478 ml Output Urine Total 5750 ml # Voids 2 Daily Weight Change No General: Alert, Oriented X3, Cooperative HEENT: Atraumatic, PERRLA Neck: Supple, No JVD, No Thyromegaly Lungs: Clear to Auscultation, Normal Air Movement Heart: Normal S1, Normal S2, No Murmurs, Other (Atrial fibrillation) Abdomen: Normal Bowel Sounds, Soft, No Tenderness, No Hepatosplenomegaly, No Masses Extremities: No Clubbing, No Cyanosis, No Edema, Normal Pulses, No Tenderness/Swelling Skin: No Rashes, No Breakdown, No Significant Lesion Neuro: Normal Gait, Normal Speech, Strength at 5/5 X4 Ext, Normal Tone, Sensation Intact Psych/Mental Status: Mental Status NL, Mood NL Results Lab Laboratory Tests 03/29/21 04:12 A/P-Cardiology Admission Diagnosis Paroxysmal atrial fibrillation Congestive heart failure, acute on chronic left ventricular systolic dysfunction, nonischemic cardiomyopathy Hypertension Hyperlipidemia Assessment/Plan Paroxysmal atrial fibrillation, noncompliant with medication, educated about the importance of compliance with medication, PHILLIP was done on March 28, 2021 showing questionable left atrial appendage thrombus. No cardioversion is recommended, heart rate is slightly better. I will switch him to oral amiodarone and increase metoprolol dose to 50 mg twice daily, evaluate dig level in a.m. Shortness of breath, pulmonary edema secondary to congestive heart failure and atrial fibrillation, responded well to diuretics. Continue to monitor Congestive heart failure, acute on chronic left ventricular diastolic dysfunction, ejection fraction 30 to 35%. Tolerating medication well. Continue to monitor Hypertension, noncompliant with medication, monitor blood pressure Hyperlipidemia History of alcoholism, educated on avoiding alcohol History of methamphetamine abuse, educated on avoiding any illicit drugs Tobaccoism, educated on avoiding tobacco products Noncompliance with medication, educated in length about compliance with medications Patient is followed by Dr. Bejarano. DEMIAN DUBON MD Mar 29, 2021 08:48
[2021-03-29] MEDS ORDERED: KCL 20 MEQ TAB (K-DUR) PO ONE (09:00)
--- NOTE | 2021-03-29 09:00 | Tele-ICU Progress Note ---
Subjective Date Seen by a Provider: Mar 29, 2021 Time Seen by a Provider: 08:53 Subjective/Events-last exam Video rounds completed Reviewed with bedside RN ' 40 y/o male with afib on diltiazem drip at 5mg/hr PE: comfortable lying in bed HR: 90-110 a fib K and Mg both low this am replaced with IV riders Will recheck at 1800 MEDS: on full anticoagulation with lovenox 120 BID Sepsis Event Evaluation Height, Weight, BMI Height: '" Weight: lbs. oz. kg; 32.20 BMI Method: Focused Exam Time of Focused Exam: 05:00 Exam Exam Patient acknowledged, consented, and participated in this virtual visit which was conducted using real time audio/video Vital Signs Date Time Temp Pulse Resp B/P (MAP) Pulse Ox O2 Delivery O2 Flow Rate FiO2 03/29/21 08:13 Room Air 97.00 03/29/21 08:00 36.9 03/29/21 08:00 85 16 120/72 (88) Room Air 03/29/21 07:00 87 21 118/94 (102) Room Air 03/29/21 07:00 90 03/29/21 06:00 94 17 Room Air 03/29/21 05:00 113 18 111/83 (92) Room Air 03/29/21 04:00 Room Air 95.00 03/29/21 04:00 90 17 90/59 (69) Room Air 03/29/21 03:00 98 16 105/72 (83) Room Air 03/29/21 02:00 77 20 100/73 (82) Room Air 03/29/21 01:00 90 24 130/79 (96) Room Air 03/29/21 01:00 106 03/29/21 00:00 36.6 03/29/21 00:00 109 19 107/78 (88) Room Air 03/28/21 23:59 Room Air 95.00 03/28/21 23:00 70 20 101/53 (69) Room Air 03/28/21 22:00 70 19 94/77 (83) Room Air 03/28/21 21:00 70 22 103/49 (67) 92 Room Air 03/28/21 20:00 Room Air 95.00 03/28/21 20:00 72 19 103/79 (87) 96 Room Air 03/28/21 19:00 80 6/19/21 19:00 80 20 104/71 (82) 96 Room Air 03/28/21 18:00 111 27 112/87 (95) 96 Nasal Cannula 2.00 03/28/21 17:00 84 17 104/60 (75) 97 Nasal Cannula 2.00 03/28/21 16:44 36.5 03/28/21 16:00 87 27 103/83 (90) 93 Nasal Cannula 2.00 03/28/21 16:00 Room Air 96.00 03/28/21 15:00 101 33 122/90 (101) 93 Nasal Cannula 2.00 03/28/21 14:00 112 18 102/77 (85) 92 Nasal Cannula 2.00 03/28/21 13:57 98 Nasal Cannula 6.00 03/28/21 13:00 112 18 102/77 (85) 92 Nasal Cannula 2.00 03/28/21 13:00 116 03/28/21 12:00 124 23 102/78 (86) 94 Nasal Cannula 2.00 03/28/21 12:00 Room Air 03/28/21 11:35 36.3 03/28/21 11:00 125 18 109/81 (90) 100 Nasal Cannula 2.00 03/28/21 10:00 141 19 123/92 (102) 100 Nasal Cannula 2.00 03/28/21 09:00 138 12 127/75 (92) 98 Nasal Cannula 2.00 I & O 03/29/21 07:00 Intake Total 1585 ml Output Total 4900 ml Balance -3315 ml Height & Weight Height: '" Weight: lbs. oz. kg; 32.20 BMI Method: General Appearance: No Apparent Distress, WD/WN, Chronically ill Neck: No Full Range of Motion; Normal Inspection; No Non Tender, No Supple, No Carotid Bruit, No JVD, No Limited Range of Motion, No Lymphadenopathy (L), No Lymphadenopathy (R), No Tender Lateral, No Tender Midline, No Thyromegaly, No Other Respiratory: Decreased Breath Sounds Cardiovascular: Irregularly Irregular, Tachycardia Capillary Refill: Less Than 3 Seconds Extremity: Normal Inspection, Non Tender, No Pedal Edema Neurologic/Psychiatric: Alert, Oriented x3 Skin: Normal Color, Warm/Dry, Tattoos/Piercings, Other (MULTIPLE SORES/SCARS/SCABS TO FACE, ARMS, LEGS AND LOWER ABDOMEN--NO EVIDENCE OF INFECTION) Results Lab Laboratory Tests 03/28/21 04:06 03/29/21 04:12 Assessment/Plan Assessment/Plan Diltiazem drip Cardiology on consult On lovenox therapeutically CHAVA LI MD Mar 29, 2021 09:00
[2021-03-29] MEDS: AMIODARONE 200 MG (CORDARONE) TAB PO SCH ×2 (09:37→20:22)
[2021-03-29] MEDS: DIGOXIN 0.25 MG (LANOXIN) TAB PO SCH (09:37)
[2021-03-29] MEDS: FOLIC ACID 1 MG TAB PO SCH (09:37)
[2021-03-29] MEDS: meTOprolol TARTRATE 50 MG (LOPRESSOR) TAB PO SCH ×2 (09:37→20:21)
[2021-03-29] MEDS ORDERED: ENOXAPARIN 300 MG/3 ML (LOVENOX) MULTI-DOSE VIAL SQ SCH (11:00)
--- NOTE | 2021-03-29 11:02 | Diagnostic Imaging Report ---
INDICATION: Abdominal pain, history of methamphetamine use TECHNIQUE: Multiple grayscale sonographic images were obtained of the right upper quadrant of the abdomen. CORRELATION STUDY: None FINDINGS: LIVER: There is uniform echotexture within the visualized portions of the liver. There is normal, hepatopedal direction of flow within the main portal vein. Liver length at 18 cm. GALLBLADDER: The gallbladder demonstrates no definitive shadowing gallstones. No abnormal gallbladder wall thickening or pericholecystic fluid. COMMON BILE DUCT: Not visualized. No overt bile duct dilatation. PANCREAS: Visualized portions appearing unremarkable. AORTA/IVC: Not well visualized. RIGHT KIDNEY: 11.7 x 6.5 x 6.0 cm. No hydronephrosis. OTHER: None. IMPRESSION: 1. Negative appearing right upper quadrant abdominal ultrasound. Dictated by: Dictated on workstation # [id number]
[2021-03-29] MEDS: dilTIAZem DRIP PRE-MIX 125 ML IV SCH (14:04)
[2021-03-29] MEDS: MUPIROCIN 2% OINT 22 GM (BACTROBAN) TUBE TOP SCH ×2 (14:08→20:22)
[2021-03-29] MEDS: ENOXAPARIN 300 MG/3 ML (LOVENOX) MULTI-DOSE VIAL SQ SCH (17:05)
[2021-03-29 18:27] LABS: MAGNESIUM 1.9 MG/DL (1.6-2.4)
[2021-03-30] MEDS: LORazepam INJ 2 MG/ML (ATIVAN) VIAL IVP PRN ×3 (01:24→06:33)
[2021-03-30] MEDS: fentaNYL INJ 100 MCG/2 ML AMP IVP PRN (03:25)
[2021-03-30 03:59] LABS: BASOPHILS # (AUTO) 0.1 10^3/uL (0.0-0.1); BASOPHILS % (AUTO) 0 % (0-10); EOSINOPHILS # (AUTO) 0.7 10^3/uL (0.0-0.3); EOSINOPHILS % (AUTO) 6 % (0-10); HEMATOCRIT 46 % (40-54); HEMOGLOBIN 14.4 g/dL (13.3-17.7); LYMPHOCYTES # (AUTO) 2.2 10^3/uL (1.0-4.0); LYMPHOCYTES % (AUTO) 18 % (12-44); MEAN CORPUSCULAR HEMOGLOBIN 30 pg (25-34); MEAN CORPUSCULAR HGB CONC 32 g/dL (32-36); MEAN CORPUSCULAR VOLUME 95 fL (80-99); MEAN PLATELET VOLUME 11.1 fL (9.0-12.2); MONOCYTES % (AUTO) 8 % (0-12); NEUTROPHILS # (AUTO) 8.1 10^3/uL (1.8-7.8); NEUTROPHILS % (AUTO) 67 % (42-75); PLATELET COUNT 326 10^3/uL (130-400); WHITE BLOOD COUNT 12.1 10^3/uL (4.3-11.0)
[2021-03-30 04:14] LABS: CHLORIDE 101 MMOL/L (98-107); POTASSIUM 3.9 MMOL/L (3.6-5.0); SODIUM 135 MMOL/L (135-145)
[2021-03-30 04:15] LABS: CALCIUM 9.1 MG/DL (8.5-10.1); GLUCOSE 113 MG/DL (70-105)
[2021-03-30 04:17] LABS: CARBON DIOXIDE 22 MMOL/L (21-32)
[2021-03-30 04:19] LABS: GFR ESTIMATED > 60; PHOSPHORUS 2.9 MG/DL (2.3-4.7)
[2021-03-30 04:20] LABS: BUN/CREATININE RATIO 15
[2021-03-30 04:22] LABS: MAGNESIUM 1.8 MG/DL (1.6-2.4)
[2021-03-30] MEDS: POTASSIUM CL 10MEQ/50ML IVPB 50 ML IV SCH (04:26)
[2021-03-30] MEDS: KCL 20 MEQ TAB (K-DUR) PO SCH (04:26)
[2021-03-30] MEDS: MAGNESIUM 1 GM/100 ML IVPB 100 ML IV SCH (04:26)
[2021-03-30] MEDS: ENOXAPARIN 300 MG/3 ML (LOVENOX) MULTI-DOSE VIAL SQ SCH (04:27)
[2021-03-30] MEDS: THIAMINE 100 MG (VITAMIN B-1) TAB PO SCH (06:21)
--- NOTE | 2021-03-30 08:34 | Pulmonary Progress Note ---
Subjective Date Seen by a Provider: Mar 30, 2021 Time Seen by a Provider: 09:41 Subjective/Events-last exam 1]admitted 03/28 for a fib, known to have CPM with LVEF 30-35%, on IV amiodarone, Dig, was on IV Cardizem cardiology note read plan is orgal amiodarone with metoprolol, possible cardioversion, ? left atrial thrombus, On enoxaparin 110 bid V rate now in 70's, BP ok, CXR and u/s abd ok 2] UDS on admssion + for amphetamines, cannanbinoids Sepsis Event Evaluation Height, Weight, BMI Height: '" Weight: lbs. oz. kg; 32.20 BMI Method: Focused Exam Time of Focused Exam: 05:00 Exam Exam Patient acknowledged, consented, and participated in this virtual visit which was conducted using real time audio/video Vital Signs Date Time Temp Pulse Resp B/P (MAP) Pulse Ox O2 Delivery O2 Flow Rate FiO2 03/30/21 07:38 36.4 03/30/21 06:40 77 03/30/21 06:00 78 18 119/87 (93) 97 Room Air 03/30/21 05:00 82 28 126/91 (103) Room Air 03/30/21 04:35 Room Air 03/30/21 04:00 85 32 115/81 (89) 97 Room Air 03/30/21 03:00 88 21 95 Room Air 03/30/21 02:00 84 27 Room Air 03/30/21 01:00 84 131/92 (105) Room Air 03/30/21 01:00 84 03/30/21 00:25 Room Air 03/30/21 00:15 68 37 113/86 (95) Room Air 03/29/21 23:00 74 20 127/90 (102) Room Air 03/29/21 22:00 73 16 131/106 (114) Room Air 03/29/21 21:00 78 19 118/91 (100) Room Air 03/29/21 20:00 81 24 118/95 (103) Room Air 03/29/21 20:00 Room Air 03/29/21 19:48 36.5 03/29/21 19:00 83 118/101 (107) Room Air 03/29/21 19:00 92 03/29/21 18:00 73 17 128/95 (106) Room Air 03/29/21 17:00 75 17 97/73 (81) Room Air 03/29/21 16:00 Room Air 03/29/21 16:00 36.2 03/29/21 16:00 70 30 109/77 (88) Room Air 03/29/21 15:00 66 20 97/76 (83) Room Air 03/29/21 14:00 75 18 114/85 (95) Room Air 03/29/21 13:00 79 18 121/86 (98) Room Air 03/29/21 12:39 74 03/29/21 12:00 Room Air 03/29/21 12:00 78 17 115/82 (93) Room Air 03/29/21 11:46 36.2 03/29/21 11:00 73 19 121/96 (104) Room Air 03/29/21 10:00 105 19 110/80 (90) Room Air 03/29/21 09:00 108 15 113/82 (92) Room Air I & O 03/30/21 07:00 Intake Total 1665 ml Output Total 3125 ml Balance -1460 ml Height & Weight Height: '" Weight: lbs. oz. kg; 32.20 BMI Method: General Appearance: No Apparent Distress, WD/WN, Chronically ill Neck: No Full Range of Motion; Normal Inspection; No Non Tender, No Supple, No Carotid Bruit, No JVD, No Limited Range of Motion, No Lymphadenopathy (L), No Lymphadenopathy (R), No Tender Lateral, No Tender Midline, No Thyromegaly, No Other Respiratory: Lungs Clear Cardiovascular: Irregularly Irregular Capillary Refill: Less Than 3 Seconds Gastrointestinal: other (RUQ pain on palpation, mild) Extremity: Normal Inspection, Non Tender, No Pedal Edema Neurologic/Psychiatric: Alert, Oriented x3 Skin: Normal Color, Warm/Dry, Tattoos/Piercings, Other (MULTIPLE SORES/SCARS/SCABS TO FACE, ARMS, LEGS AND LOWER ABDOMEN--NO EVIDENCE OF INFECTION) Results Lab Laboratory Tests 03/29/21 04:12 03/29/21 18:02 03/30/21 03:37 Meds Might go home, will have to be on anti-coagulation continue dig, amio and lorepress for rate control has spoken to about amphetamine abuse , Assessment/Plan Assessment/Plan A fib with CMP and reduced LVEF continue on present meds, possible cardioversion, continue lovenox for now Amphetamine abuse-has been discussed by cadriologist CHAVA BARRETT MD Mar 30, 2021 08:34
[2021-03-30] MEDS: AMIODARONE 200 MG (CORDARONE) TAB PO SCH ×2 (08:48→21:17)
[2021-03-30] MEDS: FOLIC ACID 1 MG TAB PO SCH (08:48)
[2021-03-30] MEDS: meTOprolol TARTRATE 50 MG (LOPRESSOR) TAB PO SCH ×2 (08:48→21:17)
[2021-03-30] MEDS: MUPIROCIN 2% OINT 22 GM (BACTROBAN) TUBE TOP SCH ×2 (08:48→21:30)
[2021-03-30] MEDS: DIGOXIN 0.25 MG (LANOXIN) TAB PO SCH (08:48)
--- NOTE | 2021-03-30 09:55 | Cardiology Progress Note ---
Subjective Date Seen by Provider: Mar 30, 2021 Time Seen by Provider: 09:53 Subjective/Events-last exam Patient was seen at bedside, laying down in bed, still complaining of right flank pain Review of Systems General: No Chills, No Night Sweats, No Fatigue, No Malaise, No Appetite, No Other HEENT: No Head Aches, No Visual Changes, No Eye Pain, No Ear Pain, No Dyspha lion, No Sinus Congestion, No Post Nasal Drip, No Sore Throat, No Other Pulmonary: No Dyspnea, No Cough, No Pleuritic Chest Pain, No Other Cardiovascular: No: Chest Pain, Palpitations, Orthopnea, Paroxysmal Noc. Dyspnea, Edema, Lt Headedness, Other Focused Exam Time of Focused Exam: 05:00 Objective-Cardiology Exam Last Set of Vital Signs Vital Signs 03/30/21 03/30/21 03/30/21 07:00 07:38 09:00 Temp 36.4 Pulse 74 Resp 18 B/P (MAP) 116/87 (97) Pulse Ox 96 O2 Delivery Room Air Capillary Refill : Less Than 3 Seconds I&O Intake and Output 03/30/21 00:00 Intake Total 990 ml Output Total 1550 ml Balance -560 ml Intake Oral 590 ml IV Total 400 ml Output Urine Total 1550 ml # Voids 2 General: Alert, Oriented X3, Cooperative HEENT: Atraumatic, PERRLA Neck: Supple, No JVD, No Thyromegaly Lungs: Clear to Auscultation, Normal Air Movement Heart: Normal S1, Normal S2, No Murmurs, Other (Atrial fibrillation) Abdomen: Normal Bowel Sounds, Soft, No Tenderness, No Hepatosplenomegaly, No Masses Extremities: No Clubbing, No Cyanosis, No Edema, Normal Pulses, No Tenderness/Swelling Skin: No Rashes, No Breakdown, No Significant Lesion Neuro: Normal Gait, Normal Speech, Strength at 5/5 X4 Ext, Normal Tone, Sensation Intact Psych/Mental Status: Mental Status NL, Mood NL Results Lab Laboratory Tests 03/29/21 18:02 03/30/21 03:37 A/P-Cardiology Admission Diagnosis Paroxysmal atrial fibrillation Congestive heart failure, acute on chronic left ventricular systolic dysfunction, nonischemic cardiomyopathy Hypertension Hyperlipidemia Assessment/Plan Paroxysmal atrial fibrillation, noncompliant with medication, educated about the importance of compliance with medication, PHILLIP was done on March 28, 2021 showing questionable left atrial appendage thrombus. No cardioversion is recommended, heart rate is better on the his current oral medication. Right flank pain, discomfort on palpation of his flank. Patient is concerned about his discomfort, managed by primary care team Shortness of breath, pulmonary edema secondary to congestive heart failure and atrial fibrillation, responded well to diuretics, feeling better. Continue to monitor Congestive heart failure, acute on chronic left ventricular diastolic dysfunction, ejection fraction 30 to 35%. Tolerating medication well. Continue to monitor Hypertension, noncompliant with medication, monitor blood pressure Hyperlipidemia History of alcoholism, educated on avoiding alcohol History of methamphetamine abuse, educated on avoiding any illicit drugs Tobaccoism, educated on avoiding tobacco products Noncompliance with medication, educated in length about compliance with medications Patient is followed by Dr. Bejarano. [place] for discharge from cardiology standpoint, follow-up as an outpatient with Dr. Bejarano's office DEMIAN DUBON MD Mar 30, 2021 9:55 am
--- NOTE | 2021-03-30 14:15 | Progress Note ---
Subjective Subjective/Events-last exam Afebrile, no acute events. Patient denies concerns, but is drowsy and wants to go back to sleep. Focused Exam Time of Focused Exam: 05:00 Objective Exam Last Set of Vital Signs Vital Signs Date Time Temp Pulse Resp B/P (MAP) Pulse Ox O2 Delivery O2 Flow Rate FiO2 03/30/21 13:00 74 98/65 (76) Room Air 03/30/21 12:00 39 03/30/21 11:39 36.2 03/30/21 07:00 96 03/29/21 12:00 Capillary Refill : Less Than 3 Seconds I&O Intake and Output 03/30/21 00:00 Intake Total 990 ml Output Total 1550 ml Balance -560 ml Intake Oral 590 ml IV Total 400 ml Output Urine Total 1550 ml # Voids 2 General: Alert, No Acute Distress Lungs: Clear to Auscultation, Normal Air Movement Heart: Other (irregularly irregular) Extremities: No Edema Neuro: Normal Speech Psych/Mental Status: Mental Status NL Results/Procedures Lab Laboratory Tests 03/29/21 18:02: Potassium Level 4.0, Magnesium Level 1.9 03/30/21 03:37: Potassium Level 3.9, Magnesium Level 1.8, White Blood Count 12.1H, Red Blood Count 4.83, Hemoglobin 14.4, Hematocrit 46, Mean Corpuscular Volume 95, Mean Corpuscular Hemoglobin 30, Mean Corpuscular Hemoglobin Concent 32, Red Cell Distribution Width 16.1H, Platelet Count 326, Mean Platelet Volume 11.1, Immature Granulocyte % (Auto) 1, Neutrophils (%) (Auto) 67, Lymphocytes (%) (Auto) 18, Monocytes (%) (Auto) 8, Eosinophils (%) (Auto) 6, Basophils (%) (Auto) 0, Neutrophils # (Auto) 8.1H, Lymphocytes # (Auto) 2.2, Monocytes # (Auto) 1.0, Eosinophils # (Auto) 0.7H, Basophils # (Auto) 0.1, Immature Granulocyte # (Auto) 0.1, Sodium Level 135, Chloride Level 101, Carbon Dioxide Level 22, Anion Gap 12, Blood Urea Nitrogen 12, Creatinine 0.80, Estimat Glomerular Filtration Rate > 60, BUN/Creatinine Ratio 15, Glucose Level 113H, Calcium Level 9.1, Phosphorus Level 2.9, Digoxin Level < 0.30L Microbiology 03/28/21 MRSA Screen - Final, Complete Assessment/Plan Assessment/Plan (1) Atrial fibrillation with RVR Status: Acute Assessment & Plan: Initially requiring amiodarone and cardizem continuous drip, now on oral and stable, will transfer to the floor. (2) Left atrial thrombus Status: Acute Assessment & Plan: On therapeutic enoxaparin, transition to Xarelto today. (3) HFrEF (heart failure with reduced ejection fraction) Status: Chronic Assessment & Plan: BNP improved, appreciate Cardiology recommendations. (4) Abdominal pain Status: Acute Assessment & Plan: RUQ ultrasound okay, follow LFTs (5) Methamphetamine use Status: Chronic (6) HTN (hypertension) Status: Chronic Qualifiers: Qualified Codes: I10 - Essential (primary) hypertension (7) HLD (hyperlipidemia) Status: Chronic (8) DVT prophylaxis Status: Acute Assessment & Plan: JB Ramos MD Mar 30, 2021 14:15
[2021-03-30] MEDS ORDERED: APIX5TAB PO (14:40)
[2021-03-30] MEDS ORDERED: METO100T12 PO (14:40)
[2021-03-30] MEDS: 1/2 NS IV SOLUTION 1,000 ML IV SCH ×2 (15:56→21:30)
[2021-03-30] MEDS ORDERED: RIVAROXABAN 20 MG TABLET (XARELTO) PO SCH (17:00)
[2021-03-30] MEDS ORDERED: KETOROLAC 30 MG/ML VIAL IVP PRN (22:15)
[2021-03-30] MEDS: LORazepam 0.5 MG (ATIVAN) TABLET PO PRN (22:29)
[2021-03-31 05:32] LABS: BASOPHILS % (AUTO) 0 % (0-10); EOSINOPHILS # (AUTO) 0.6 10^3/uL (0.0-0.3); EOSINOPHILS % (AUTO) 5 % (0-10); HEMATOCRIT 45 % (40-54); LYMPHOCYTES # (AUTO) 1.9 10^3/uL (1.0-4.0); LYMPHOCYTES % (AUTO) 17 % (12-44); MEAN CORPUSCULAR HEMOGLOBIN 30 pg (25-34); MEAN CORPUSCULAR HGB CONC 31 g/dL (32-36); MEAN CORPUSCULAR VOLUME 95 fL (80-99); MEAN PLATELET VOLUME 10.8 fL (9.0-12.2); MONOCYTES % (AUTO) 9 % (0-12); NEUTROPHILS # (AUTO) 7.4 10^3/uL (1.8-7.8); NEUTROPHILS % (AUTO) 68 % (42-75); PLATELET COUNT 301 10^3/uL (130-400); WHITE BLOOD COUNT 10.9 10^3/uL (4.3-11.0)
[2021-03-31 06:02] LABS: ALANINE AMINOTRANSFERASE 34 U/L (0-55); ALBUMIN 3.3 GM/DL (3.2-4.5); ALKALINE PHOSPHATASE 108 U/L (40-136); BILIRUBIN,DIRECT 0.5 MG/DL (0.0-0.3); BILIRUBIN,INDIRECT 0.3 MG/DL; BILIRUBIN,TOTAL 0.8 MG/DL (0.1-1.0); BUN/CREATININE RATIO 18; CALCIUM 9.6 MG/DL (8.5-10.1); CARBON DIOXIDE 21 MMOL/L (21-32); CHLORIDE 105 MMOL/L (98-107); CREATININE SERUM 0.73 MG/DL (0.60-1.30); GFR ESTIMATED > 60; GLUCOSE 98 MG/DL (70-105); POTASSIUM 4.2 MMOL/L (3.6-5.0); SODIUM 136 MMOL/L (135-145); TOTAL PROTEIN 6.6 GM/DL (6.4-8.2)
[2021-03-31] MEDS: THIAMINE 100 MG (VITAMIN B-1) TAB PO SCH (06:30)
[2021-03-31] MEDS: LORazepam 0.5 MG (ATIVAN) TABLET PO PRN (06:30)
[2021-03-31] MEDS: DIGOXIN 0.25 MG (LANOXIN) TAB PO SCH (09:26)
[2021-03-31] MEDS: MUPIROCIN 2% OINT 22 GM (BACTROBAN) TUBE TOP SCH (09:26)
[2021-03-31] MEDS: AMIODARONE 200 MG (CORDARONE) TAB PO SCH (09:26)
[2021-03-31] MEDS: meTOprolol TARTRATE 50 MG (LOPRESSOR) TAB PO SCH (09:26)
[2021-03-31] MEDS: FOLIC ACID 1 MG TAB PO SCH (09:26)
[2021-03-31] MEDS ORDERED: AMIO200T6 PO (10:06)
[2021-03-31] MEDS ORDERED: DIGO250T15 PO (10:06)
[2021-03-31] MEDS ORDERED: RIVA20TA2 PO (10:06)
[2021-03-31] MEDS ORDERED: METO100T12 PO (10:06)
--- NOTE | 2021-03-31 10:12 | Progress Note - Cardiology ---
Cardiology SOAP Progress Note Subjective: Lying in bed No c/o CP, SOB or palpitations C/O left, lateral abdominal pain Objective: I&O/Vital Signs 03/31/21 03/31/21 03/31/21 03/31/21 00:25 01:00 04:22 07:20 Temp 36.0 36.2 36.1 Pulse 76 74 61 69 Resp 20 20 18 B/P (MAP) 130/89 (103) 117/79 (92) 124/80 (95) Pulse Ox 97 98 96 O2 Delivery Room Air Room Air Room Air 03/31/21 00:00 Intake Total 480 ml Output Total 750 ml Balance -270 ml Constitutional: AAO x 3, well-developed, well-nourished Respiratory: No accessory muscle use, No respiratory distress; chest expansion is symmetric, chest is bilaterally symmetric Cardiovascular: irregularly irregular, S1 and S2 Gastrointestional: audible bowel sounds Extremities: no lower extremity edema bilateral Neurologic/Psychiatric: grossly intact (Moves all extremities) Skin: No ulcerations on exposed areas Results/Procedures: Labs Laboratory Tests 03/31/21 05:22: White Blood Count 10.9, Red Blood Count 4.72, Hemoglobin 14.0, Hematocrit 45, Mean Corpuscular Volume 95, Mean Corpuscular Hemoglobin 30, Mean Corpuscular Hemoglobin Concent 31L, Red Cell Distribution Width 15.9H, Platelet Count 301, Mean Platelet Volume 10.8, Immature Granulocyte % (Auto) 1, Neutrophils (%) (Auto) 68, Lymphocytes (%) (Auto) 17, Monocytes (%) (Auto) 9, Eosinophils (%) (Auto) 5, Basophils (%) (Auto) 0, Neutrophils # (Auto) 7.4, Lymphocytes # (Auto) 1.9, Monocytes # (Auto) 1.0, Eosinophils # (Auto) 0.6H, Basophils # (Auto) 0.0, Immature Granulocyte # (Auto) 0.1, Sodium Level 136, Potassium Level 4.2, Chloride Level 105, Carbon Dioxide Level 21, Anion Gap 10, Blood Urea Nitrogen 13, Creatinine 0.73, Estimat Glomerular Filtration Rate > 60, BUN/Creatinine Ratio 18, Glucose Level 98, Calcium Level 9.6, Total Bilirubin 0.8, Direct Bilirubin 0.5H, Indirect Bilirubin 0.3, Aspartate Amino Transf (AST/SGOT) 24, Alanine Aminotransferase (ALT/SGPT) 34, Alkaline Phosphatase 108, Total Protein 6.6, Albumin 3.3 Microbiology 03/28/21 MRSA Screen - Final, Complete Laboratory Tests 03/29/21 18:02 03/30/21 03:37 03/31/21 05:22 A/P: Assessment: Paroxysmal atrial fibrillation - rate controlled PHILLIP was done on March 28, [address] Hernandez showing questionable left atrial appendage thrombus. No cardioversion was recommended - continue medication regimen Acute on chronic systolic CHF - clinically improved PHILLIP of 03-28-[address] Hernandez showed LVEF 40-45%. 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) - cessation advised Tobaccoism - cessation advised Noncompliance with medication, educated in length about compliance with medicat ions Plan: Management of abdominal pain is with medical services Continue current medication regimen Advised immediate and complete cessation of ETOH and street drugs Monitor lab closely Replace electrolytes as indicated We have reviewed Dr. Hernandez's notes Advised compliance with medication regimen and f/u ANN RHOADES Mar 31, 2021 10:12
--- NOTE | 2021-03-31 10:14 | Discharge Summary ---
Discharge Summary Hospital Course Problems/Diagnosis: (1) Atrial fibrillation with RVR Status: Acute Assessment & Plan: Initially requiring amiodarone and cardizem continuous drip, now on oral and stable, will transfer to the floor. 03/31 stable, discharged on oral amiodarone and digoxin and rivaroxaban. (2) Left atrial thrombus Status: Acute Assessment & Plan: On therapeutic enoxaparin, transition to Xarelto today. 03/31 script for rivaroxaban given as he reported previous apixaban too expensive. (3) HFrEF (heart failure with reduced ejection fraction) Status: Chronic Assessment & Plan: BNP improved, appreciate Cardiology recommendations. (4) Abdominal pain Status: Acute Assessment & Plan: RUQ ultrasound okay, follow LFTs (5) Methamphetamine use Status: Chronic (6) HTN (hypertension) Status: Chronic Qualifiers: Qualified Codes: I10 - Essential (primary) hypertension (7) HLD (hyperlipidemia) Status: Chronic Assessment & Plan: Started atorvastatin (8) Flank lipoma Status: Chronic Assessment & Plan: Was having pain in right flank/side where mass was noted, US done and showed likely lipoma versus scar. Can refer outpatient to surgery for removal if desired due to symptoms. Hospital Course Date of Admission: Mar 28, 2021 at 05:15 Admission Diagnosis : [facility]: [facility] Discharge Diagnosis: [ ] Hospital Course: [ ] Labs and Pending Lab Test: Laboratory Tests 03/31/21 05:22: White Blood Count 10.9, Red Blood Count 4.72, Hemoglobin 14.0, Hematocrit 45, Mean Corpuscular Volume 95, Mean Corpuscular Hemoglobin 30, Mean Corpuscular Hemoglobin Concent 31L, Red Cell Distribution Width 15.9H, Platelet Count 301, Mean Platelet Volume 10.8, Immature Granulocyte % (Auto) 1, Neutrophils (%) (Auto) 68, Lymphocytes (%) (Auto) 17, Monocytes (%) (Auto) 9, Eosinophils (%) (Auto) 5, Basophils (%) (Auto) 0, Neutrophils # (Auto) 7.4, Lymphocytes # (Auto) 1.9, Monocytes # (Auto) 1.0, Eosinophils # (Auto) 0.6H, Basophils # (Auto) 0.0, Immature Granulocyte # (Auto) 0.1, Sodium Level 136, Potassium Level 4.2, Chloride Level 105, Carbon Dioxide Level 21, Anion Gap 10, Blood Urea Nitrogen 13, Creatinine 0.73, Estimat Glomerular Filtration Rate > 60, BUN/Creatinine Ratio 18, Glucose Level 98, Calcium Level 9.6, Total Bilirubin 0.8, Direct Bilirubin 0.5H, Indirect Bilirubin 0.3, Aspartate Amino Transf (AST/SGOT) 24, Alanine Aminotransferase (ALT/SGPT) 34, Alkaline Phosphatase 108, Total Protein 6.6, Albumin 3.3 Microbiology 03/28/21 MRSA Screen - Final, Complete Home Meds Active Digox (Digoxin) 250 Mcg Tablet 0.25 Mg PO DAILY Amiodarone HCl 200 Mg Tablet 400 Mg PO BID Xarelto Tablet (Rivaroxaban) 20 Mg Tablet 20 Mg PO DAILY@1700 Metoprolol Tartrate 100 Mg Tablet 50 Mg PO BID 30 Days Assessment/Pt DC Instructions Follow up with Sal Lucia APRN at [facility] in [place] on April 07 at 11 am. Follow up with Dr. Hernandez as directed. Discharge Diet: Cardiac Diet Activity as Tolerated: Yes Discharge Physical Examination Allergies: Coded Allergies: Penicillins (Verified Allergy, Unknown, 11/09/20) General Appearance: No Apparent Distress Respiratory: Lungs Clear, Normal Breath Sounds Cardiovascular: Regular Rate, Rhythm, No Murmur Gastrointestinal: Normal Bowel Sounds, Non Tender, Soft Skin: Normal Color, Warm/Dry, Other (indurated mass in right side about 6 cm in diameter) Neurologic/Psychiatric: Alert, Normal Mood/Affect JB VALDEZ MD Mar 31, 2021 10:14
[2021-03-31] MEDS ORDERED: ATOR40TA70 PO (12:04)
[2021-03-31 12:50] VITALS: BP 141/90
--- NOTE | 2021-03-31 13:16 | Diagnostic Imaging Report ---
Clinical indication: Patient with right side torso mass. Patient had multiple injections in this area when hospitalized 2 months ago. Exam: Focused ultrasound involving the right mid flank region of concern. Comparison: CT angiogram of the chest dated 02/01/2021. Findings and impression: There is a 5.6 cm x 1.4 cm lobulated slightly heterogeneous area in the superficial subcutaneous fat in the right mid flank region. There is minimal vascularity within it. Considerations would include a lipoma versus area of scar. There is no fluid collection seen in the region. Prior CT angiogram showed no significant abnormality in the visualized portions of the mid right torso region. If necessary, followup CT scan of the chest with contrast with BB marker is suggested for further evaluation. Dictated by: Dictated on workstation # [id number]
== END 2021-03-31 12:53 | disposition home or self-care (01) | DRG 308 ==
LOC: EDUNIT# 03:32 → ER 03:36 → ICU 05:15 → 4TH 03-30 19:19
PROVIDERS: ADMIT Internal Medicine; ATTEND Family Medicine
DX: I48.0 Paroxysmal atrial fibrillation (principal); I50.23 Acute on chronic systolic (congestive) heart failure; I48.92 Unspecified atrial flutter; I11.0 Hypertensive heart disease with heart failure; I51.3 Intracardiac thrombosis, not elsewhere classified; I42.9 Cardiomyopathy, unspecified; F15.10 Other stimulant abuse, uncomplicated; R22.2 Localized swelling, mass and lump, trunk; E66.9 Obesity, unspecified; K21.9 Gastro-esophageal reflux disease without esophagitis; E78.00 Pure hypercholesterolemia, unspecified; E78.5 Hyperlipidemia, unspecified; F17.210 Nicotine dependence, cigarettes, uncomplicated; F10.21 Alcohol dependence, in remission; Z91.14 Patient's other noncompliance with medication regimen; Z68.32 Body mass index [BMI] 32.0-32.9, adult; Z88.0 Allergy status to penicillin
CPT/HCPCS: 36415; 71045; 76705; 76999; 80048; 80053; 80076; 80162; 80306; 80320; 81000; 82150; 82550; 82553; 83690; 83735; 83874; 83880; 84100; 84132; 84443; 84484; 85025; 85610; 85730; 87081; 93005; 93041; 93312; 93320; 93325

== ENCOUNTER 2021-05-08 04:19 | Inpatient (IN) | payer SELFPAY ==
[~2021-05-08] VITALS: Ht 180.3 cm; Wt 98.8 kg
[~2021-05-08 04:19] MED LIST changes: +APIX5TAB PO; +ATOR40TA70 PO; +METO100T12 PO; +RIVA20TA2 PO
[2021-05-08] MEDS ORDERED: dilTIAZem DRIP PRE-MIX 125 ML IV ONE (04:36)
[2021-05-08] MEDS ORDERED: dilTIAZem DRIP PRE-MIX 125 ML IV SCH ×2 (04:45→09:15)
--- NOTE | 2021-05-08 04:46 | ED Abdominal Pain ---
General Stated Complaint: ABD PAIN,SWELLING,RASH,FEET SWOLLEN Source of Information: Patient Exam Limitations: No Limitations (SHASTA RAMON MD) History of Present Illness Date Seen by Provider: May 08, 2021 Time Seen by Provider: 04:30 Initial Comments Patient is a 40-year-old male with a history of congestive heart failure, hypertension and atrial fibrillation who presents to the emergency department with a chief complaint of right lower quadrant abdominal pain. Patient states that his pain started about 4 days ago. He states it might have been around a little bit before then but got worse in the last 4 days. He had a bowel movement this morning after getting up out of bed. Patient is noted to be in A. fib with rapid ventricular response with a heart rate of 130-150. He states that his carton inspector is Dr. Hernandez, he last saw him about a month ago. He states he did make some changes to his medications but he was unable to afford his meds so he has been making do with what he has. Patient states he is on a blood thinner but he cannot recall what thinner it is. He is nauseous currently in significant pain. He also states that he got into something which caused him to develop a diffuse rash. He has been taking Benadryl daily a couple of times a day. He has been using calamine lotion. He states he developed this rash after swimming and some "pets". He is also complaining of some swelling to his lower extremities. He is not on a diuretic he states. He does endorse decreased urination over the last 3 or 4 days. He states he is only urinating once a day. No history of kidney failure that he is aware of. He is not a diabetic. All other review of systems reviewed and negative except as stated. Timing/Duration: 4-5 Days Severity/Quality: Severe, Aching Location: RLQ Radiation: Flank Associated Symptoms: Nausea/Vomiting (Nausea without vomiting) (SHASTA RAMON MD) Allergies and Home Medications Allergies Coded Allergies: Penicillins (Verified Allergy, Unknown, 11/09/20) Home Medications Amiodarone HCl 200 Mg Tablet, 400 MG PO BID Prescribed by: JB VALDEZ on 03/31/21 1006 Atorvastatin Calcium 40 Mg Tablet, 40 MG PO DAILY Prescribed by: JB VALDEZ on 03/31/21 1204 Digoxin 250 Mcg Tablet, 0.25 MG PO DAILY Prescribed by: JB VALDEZ on 03/31/21 1006 Metoprolol Tartrate 100 Mg Tablet, 50 MG PO BID Prescribed by: JB VALDEZ on 03/31/21 1006 Rivaroxaban 20 Mg Tablet, 20 MG PO DAILY@1700 Prescribed by: JB VALDEZ on 03/31/21 1006 Patient Home Medication List Home Medication List Reviewed: Yes (SHASTA RAMON MD) Review of Systems Review of Systems Constitutional: see HPI EENTM: No Symptoms Reported Respiratory: No Symptoms Reported Cardiovascular: No Symptoms Reported Gastrointestinal: Abdominal Pain, Nausea, Poor Appetite Genitourinary: Other (Decreased urinary frequency) Musculoskeletal: other (Swelling in his leg) Skin: rash (Diffuse pruritic rash) Psychiatric/Neurological: No Symptoms Reported (SHASTA RAMON MD) All Other Systems Reviewed Negative Unless Noted: Yes (SHASTA RAMON MD) Past Vodvcuk-Lcbhaz-Eereha Hx Immunizations Up To Date Tetanus Booster (TDap): Unknown (SHASTA RAMON MD) Past Medical History Surgeries: Yes (HERNIA REPAIR) Abdominal, Appendectomy Respiratory: No Cardiac: Yes (CHF 30-35% EF) Atrial Fibrillation, Cardiomyopathy, High Cholesterol, Hypertension Neurological: No Genitourinary: No Gastrointestinal: Yes Gastroesophageal Reflux Musculoskeletal: No Endocrine: Yes (OBESITY) HEENT: No Cancer: No Psychosocial: Yes (SUBSTANCE ABUSE) Integumentary: Yes (TATTOOS) Blood Disorders: No (SHASTA RAMON MD) Family Medical History SOCIAL HISTORY: -ETOH--REGULAR USE -DRUGS--METHAMPHETAMINES -SMOKES 1 PPD PAST SURGICAL HISTORY: -APPENDECTOMY -HERNIA REPAIR -CARDIOVERSIONS ECHOCARDIOGRAM 11/13/20--EF 30-35%, NO REGIONAL WALL MOTION ABNORMALITIES. EXTREME NON-COMPLIANCE IN ALL ASPECTS OF CARE (SHASTA RAMON MD) Physical Exam Vital Signs Vital Signs - First Documented 05/08/21 04:25 Temp 36.5 Pulse 154 Resp 20 B/P (MAP) 134/110 (118) Pulse Ox 99 O2 Delivery Room Air (SILVIA MACHADO MD) Vital Signs Capillary Refill : (SHASTA RAMON MD) Height/Weight/BMI Height: '" Weight: lbs. oz. kg; 32.20 BMI Method: General Appearance: WD/WN, mild distress HEENT: PERRL/EOMI Respiratory: lungs clear, normal breath sounds, no respiratory distress, no accessory muscle use Cardiovascular: tachycardia, irregularly irregular Gastrointestinal: normal bowel sounds, guarding, tenderness (Right lower quadrant induration, overlying erythema very tender to palpation. Area is about 15 cm in diameter ), mass (Right lower quadrant -feels like it may be in the subcutaneous tissues) Extremities: normal range of motion, pedal edema Neurologic/Psychiatric: alert, normal mood/affect, oriented x 3 Skin: normal color, warm/dry, other (Diffuse raised erythematous rash, pruritic. Generalized; multiple subcutaneous nodules felt in the abdominal wall.) (SHASTA RAMON MD) Procedures/Interventions Date of ETT Placement: Feb 01, 2021 (SHASTA RAMON MD) Progress/Results/Core Measures Results/Orders Lab Results Laboratory Tests Test 05/08/21 04:30 05/08/21 05:09 Range/Units White Blood Count 11.8 H 4.3-11.0 10^3/uL Red Blood Count 5.50 4.30-5.52 10^6/uL Hemoglobin 15.9 13.3-17.7 g/dL Hematocrit 51 40-54 % Mean Corpuscular Volume 93 80-99 fL Mean Corpuscular Hemoglobin 29 25-34 pg Mean Corpuscular Hemoglobin Concent 31 L 32-36 g/dL Red Cell Distribution Width 16.4 H 10.0-14.5 % Platelet Count 372 130-400 10^3/uL Mean Platelet Volume 10.9 9.0-12.2 fL Immature Granulocyte % (Auto) 0 % Neutrophils (%) (Auto) 71 42-75 % Lymphocytes (%) (Auto) 15 12-44 % Monocytes (%) (Auto) 9 0-12 % Eosinophils (%) (Auto) 5 0-10 % Basophils (%) (Auto) 0 0-10 % Neutrophils # (Auto) 8.4 H 1.8-7.8 10^3/uL Lymphocytes # (Auto) 1.7 1.0-4.0 10^3/uL Monocytes # (Auto) 1.1 H 0.0-1.0 10^3/uL Eosinophils # (Auto) 0.6 H 0.0-0.3 10^3/uL Basophils # (Auto) 0.1 0.0-0.1 10^3/uL Immature Granulocyte # (Auto) 0.1 0.0-0.1 10^3/uL Sodium Level 139 135-145 MMOL/L Potassium Level 3.3 L 3.6-5.0 MMOL/L Chloride Level 100 98-107 MMOL/L Carbon Dioxide Level 24 21-32 MMOL/L Anion Gap 15 H 5-14 MMOL/L Blood Urea Nitrogen 7 7-18 MG/DL Creatinine 0.88 0.60-1.30 MG/DL Estimat Glomerular Filtration Rate 95 BUN/Creatinine Ratio 8 Glucose Level 109 H 70-105 MG/DL Calcium Level 10.0 8.5-10.1 MG/DL Corrected Calcium 10.2 H 8.5-10.1 MG/DL Total Bilirubin 1.2 H 0.1-1.0 MG/DL Aspartate Amino Transf (AST/SGOT) 37 H 5-34 U/L Alanine Aminotransferase (ALT/SGPT) 25 0-55 U/L Alkaline Phosphatase 133 40-136 U/L Total Creatine Kinase 270 H 30-200 U/L Creatine Kinase MB 5.9 <6.6 NG/ML Troponin I < 0.028 <0.028 NG/ML B-Type Natriuretic Peptide 1151.7 H <100.0 PG/ML Total Protein 8.1 6.4-8.2 GM/DL Albumin 3.8 3.2-4.5 GM/DL Urine Color ORANGE Urine Clarity CLEAR Urine pH 6.0 5-9 Urine Specific Forgan >=1.030 1.016-1.022 Urine Protein 3+ H NEGATIVE Urine Glucose (UA) TRACE H NEGATIVE Urine Ketones TRACE H NEGATIVE Urine Nitrite NEGATIVE NEGATIVE Urine Bilirubin N NEGATIVE Urine Urobilinogen 1.0 < = 1.0 MG/DL Urine Leukocyte Esterase NEGATIVE NEGATIVE Urine RBC (Auto) TRACE-I NEGATIVE Urine RBC NONE /HPF Urine WBC NONE /HPF Urine Crystals NONE /LPF Urine Bacteria TRACE /HPF Urine Casts PRESENT /LPF Urine Hyaline Casts 5-10 H /LPF Urine Mucus NEGATIVE /LPF Urine Culture Indicated NO (SILVIA MACHADO MD) My Orders Orders - SILVIA MACHADO MD Iohexol Injection (Omnipaque 350 Mg/Ml 1 (05/08/21 06:15) Received Contrast (Hold Metformin- Contr (05/08/21 06:15) Sodium Chloride Flush (Catheter Flush Sy (05/08/21 06:15) Ns (Ivpb) (Sodium Chloride 0.9% Ivpb Bag (05/08/21 06:15) Lorazepam Injection (Ativan Injection) (05/08/21 07:30) Doxycycline Hyclate Tablet (Vibramycin T (05/08/21 08:00) Tick Panel With Lyme Eia (05/08/21 07:47) (SILVIA MACHADO MD) Medications Given in ED Current Medications Medications Dose Ordered Sig/[place] Route Start Time Stop Time Status Last Admin Dose Admin Digoxin 0.25 mg ONCE ONCE IV 05/08/21 05:45 05/08/21 05:46 DC 05/08/21 05:50 0.25 MG Diltiazem HCl 20 mg ONCE ONCE IVP 05/08/21 04:45 05/08/21 04:46 DC 05/08/21 04:42 20 MG Diphenhydramine HCl 25 mg ONCE ONCE IV 05/08/21 05:45 05/08/21 05:46 DC 05/08/21 05:50 25 MG Doxycycline Hyclate 100 mg ONCE ONCE PO 05/08/21 08:00 05/08/21 08:01 05/08/21 07:54 100 MG Fentanyl Citrate 50 mcg ONCE ONCE IVP 05/08/21 05:00 05/08/21 05:01 DC 05/08/21 05:01 50 MCG Fentanyl Citrate 50 mcg ONCE ONCE IVP 05/08/21 06:00 05/08/21 06:01 DC 05/08/21 05:58 50 MCG Iohexol 100 ml ONCE ONCE IV 05/08/21 06:15 05/08/21 06:16 DC 05/08/21 06:19 100 ML Lorazepam 0.5 mg ONCE ONCE IVP 05/08/21 07:30 05/08/21 07:31 DC 05/08/21 07:34 0.5 MG Sodium Chloride 10 ml NEEDED PRN IV 05/08/21 06:15 05/08/21 06:19 10 ML Sodium Chloride 100 ml ONCE ONCE IV 05/08/21 06:15 05/08/21 06:16 DC 05/08/21 06:19 80 ML (SILVIA MACHADO MD) Vital Signs/I&O 05/08/21 04:25 Temp 36.5 Pulse 154 Resp 20 B/P (MAP) 134/110 (118) Pulse Ox 99 O2 Delivery Room Air (SILVIA MACHADO MD) Progress Progress Note : Time: 04:55 Progress Note Per review of the medical record, previous visits patient has a history of substance abuse and medical noncompliance. Had this area in his right mid abdomen ultrasounded in the past. I do not see a CAT scan of the abdomen and pelvis. Patient states his pain is worse today. Nausea without vomiting. Normal bowel movements which implies no bowel obstruction. Patient has had previous right side hernia repair with mesh placed. Scar is low in the right lower quadrant. Patient is given Cardizem bolus and started on a drip at 5 also 50 mcg of fentanyl for pain. Will evaluate laboratory studies and manage his A. fib RVR prior to determining whether or not to CAT scan his abdomen and pelvis. (SHASTA RAMON MD) Progress Note : Time: 08:00 Progress Note Care of this patient was assumed from Dr. Ramon at shift change. He remains in RVR despite digoxin and Cardizem drip. Dr. Cartagena has been consulted and requested that he stay n.p.o. for possible cardioversion. Abdominal pain was addressed with CT abdomen and pelvis which showed no acute abnormalities. Patient describes a pruritic rash. He indeed has an erythematous maculopapular rash with some small pustules scattered throughout his trunk and extremities. He has received Benadryl for the itching. He reports recent tick bites and some chills at night over the past few nights. We will start doxycycline empirically and draw a tick panel. Patient states he has been compliant with his metoprolol and Eliquis he took his last Eliquis dose shortly before coming to the ER. He was also prescribed digoxin which she did not get due to cost. 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 He reports he is supposed to be entering rehab next week sometime. Patient had mild hypokalemia. Since he is remaining n.p.o. we will run some normal saline with 20 mEq of potassium to help with the hyperkalemia. Dr. Cartagena is here in the ER to assess the patient now. (SILVIA MACHADO MD) Initial ECG Impression Date: May 08, 2021 Initial ECG Impression Time: 04:27 Initial ECG Rate: 150 Initial ECG Rhythm: A Fib/Flutter Initial ECG Impression: Atrial Fibrillation w/RVR (SHASTA RAMON MD) Diagnostic Imaging Diagonstic Imaging: Xray Plain Films/CT/US/NM/MRI: chest Comments Chest x-ray viewed by me and report reviewed. See report below: NAME: [facility] REC#: [id number] PT STATUS: REG ER : 1980 PHYSICIAN: SHASTA RAMON MD ADMIT DATE: 05/08/21/ER Draft Date of Exam:05/08/21 CHEST 1 VIEW, AP/PA ONLY INDICATION: Pain, atrial fibrillation, congestive failure COMPARISON: 03/28/2021 FINDINGS: The heart size within the upper limits of normal. There is no overt vascular congestion or failure pattern. The lungs were clear. No edema, pneumonia, effusion or pneumothorax. IMPRESSION: No acute appearing abnormality. Dictated on workstation # [id number] Dict: 05/08/21 0648 Trans: 05/08/21 0706 [facility] [id number] Interpreted by: LOLA VARGAS Diagonstic Imaging: CT Plain Films/CT/US/NM/MRI: abdomen, pelvis Comments CT abdomen and pelvis viewed by me and report reviewed. See report below: NAME: [facility] REC#: [id number] PT STATUS: REG ER : 1980 PHYSICIAN: SHASTA RAMON MD ADMIT DATE: 05/08/21/ER Signed Date of Exam:05/08/21 CT ABD/PELV W (APPENDICITIS) EXAMINATION: CT abdomen and pelvis with intravenous contrast. TECHNIQUE: Multiple contiguous axial images were obtained through the abdomen and pelvis after the uneventful administration of intravenous contrast. All CT scans use one or more of the following dose optimizing techniques: automated exposure control, MA and/or KvP adjustment based on patient size and exam type or iterative reconstruction. HISTORY: Right lower quadrant abdominal pain. COMPARISON: None available. FINDINGS: The heart is unremarkable. Small amount of right basilar opacities are present. The liver has a heterogeneous appearance without focal mass. The portal vein is patent. The gallbladder is unremarkable. The spleen, pancreas, adrenal glands, and kidneys have a normal appearance. There is no pathologically enlarged mesenteric or retroperitoneal adenopathy. The bowel loops are nondilated. The appendix is visualized in the right lower quadrant and has a normal appearance. There is no free fluid or free air. No acute osseous abnormalities. Ureters and bladder are grossly normal. There is no free air, loculated collection, or adenopathy in the pelvis. IMPRESSION: 1. Heterogeneous appearance of the liver without focal mass. Findings can be seen with hepatitis and/or hepatic steatosis. Recommend correlation with LFTs. Dictated by: Dictated on workstation # [id number] Dict: 05/08/2149 Trans: 05/08/21699 [facility] [id number] Interpreted by: MARILYN FREIRE DO Electronically signed by: MARILYN FREIRE DO 05/08/21699 (SILVIA MACHADO MD) Departure Communication (Admissions) Time/Spoke to Admitting Phy: 07:48 Dr. Wesley Time/Spoke to Consulting Phy: 07:50 Dr. Cartagena (SILVIA MACHADO MD) Impression Primary Impression: Atrial fibrillation with RVR Additional Impressions: Pruritic rash Methamphetamine use Disposition: ADMITTED INPATIENT Condition: Improved Admissions Decision to Admit Reason: Admit from ER (General) Decision to Admit/Date: May 08, 2021 Time/Decision to Admit Time: 06:00 (SILVIA MACHADO MD) Departure-Patient Inst. Referrals: [facility] (PCP/Family) Primary Care Physician SHASTA RAMON MD May 08, 2021 04:46 SILVIA MACHADO MD May 08, 2021 08:03
[2021-05-08 04:50] LABS: BASOPHILS # (AUTO) 0.1 10^3/uL (0.0-0.1); BASOPHILS % (AUTO) 0 % (0-10); EOSINOPHILS # (AUTO) 0.6 10^3/uL (0.0-0.3); EOSINOPHILS % (AUTO) 5 % (0-10); HEMATOCRIT 51 % (40-54); HEMOGLOBIN 15.9 g/dL (13.3-17.7); LYMPHOCYTES # (AUTO) 1.7 10^3/uL (1.0-4.0); LYMPHOCYTES % (AUTO) 15 % (12-44); MEAN CORPUSCULAR HEMOGLOBIN 29 pg (25-34); MEAN CORPUSCULAR HGB CONC 31 g/dL (32-36); MEAN CORPUSCULAR VOLUME 93 fL (80-99); MEAN PLATELET VOLUME 10.9 fL (9.0-12.2); MONOCYTES # (AUTO) 1.1 10^3/uL (0.0-1.0); MONOCYTES % (AUTO) 9 % (0-12); NEUTROPHILS # (AUTO) 8.4 10^3/uL (1.8-7.8); NEUTROPHILS % (AUTO) 71 % (42-75); PLATELET COUNT 372 10^3/uL (130-400); WHITE BLOOD COUNT 11.8 10^3/uL (4.3-11.0)
[2021-05-08 04:53] LABS: ALBUMIN 3.8 GM/DL (3.2-4.5); CHLORIDE 100 MMOL/L (98-107); POTASSIUM 3.3 MMOL/L (3.6-5.0)
[2021-05-08 04:54] LABS: SODIUM 139 MMOL/L (135-145)
[2021-05-08 04:56] LABS: GLUCOSE 109 MG/DL (70-105); TOTAL PROTEIN 8.1 GM/DL (6.4-8.2)
[2021-05-08 04:57] LABS: CARBON DIOXIDE 24 MMOL/L (21-32)
[2021-05-08 04:58] LABS: BILIRUBIN,TOTAL 1.2 MG/DL (0.1-1.0)
[2021-05-08 04:59] LABS: ALKALINE PHOSPHATASE 133 U/L (40-136); CREATININE SERUM 0.88 MG/DL (0.60-1.30); GFR ESTIMATED 95
[2021-05-08] MEDS ORDERED: fentaNYL INJ 100 MCG/2 ML AMP IVP ONE ×2 (05:00→06:00)
[2021-05-08 05:01] LABS: BUN/CREATININE RATIO 8
[2021-05-08 05:02] LABS: ALANINE AMINOTRANSFERASE 25 U/L (0-55); CREATINE KINASE 270 U/L (30-200)
[2021-05-08 05:14] LABS: CREATINE KINASE MB 5.9 NG/ML (<6.6)
[2021-05-08 05:34] LABS: CLARITY,URINE CLEAR; COLOR,URINE ORANGE; GLUCOSE, URINE (UA) TRACE (NEGATIVE); KETONES,URINE TRACE (NEGATIVE); LEUKOCYTE ESTERASE ,URINE NEGATIVE (NEGATIVE); NITRITE,URINE NEGATIVE (NEGATIVE); PROTEIN,URINE 3+ (NEGATIVE)
[2021-05-08] MEDS ORDERED: DIGOXIN 0.25 MG/ML (LANOXIN) 2 ML AMP IV ONE (05:45)
[2021-05-08] MEDS ORDERED: diphenhydrAMINE 50 MG/ML INJ (BENADRYL) IV ONE (05:45)
[2021-05-08 05:53] LABS: BACTERIA,URINE TRACE /HPF
[2021-05-08 05:54] LABS: BILIRUBIN,URINE N (NEGATIVE)
[2021-05-08] MEDS ORDERED: HOLD METFORMIN - RECEIVED CONTRAST 20 ML VIAL IV SCH (06:15)
[2021-05-08] MEDS ORDERED: IOHEXOL 350 MG/ML 100 ML (OMNIPAQUE 350) VIAL IV ONE (06:15)
[2021-05-08] MEDS ORDERED: CATHETER FLUSH 10 ML SYR IV PRN ×2 (06:15→09:15)
[2021-05-08] MEDS ORDERED: NS 100 ML (IVPB) BAG IV ONE (06:15)
--- NOTE | 2021-05-08 06:53 | Diagnostic Imaging Report ---
EXAMINATION: CT abdomen and pelvis with intravenous contrast. TECHNIQUE: Multiple contiguous axial images were obtained through the abdomen and pelvis after the uneventful administration of intravenous contrast. All CT scans use one or more of the following dose optimizing techniques: automated exposure control, MA and/or KvP adjustment based on patient size and exam type or iterative reconstruction. HISTORY: Right lower quadrant abdominal pain. COMPARISON: None available. FINDINGS: The heart is unremarkable. Small amount of right basilar opacities are present. The liver has a heterogeneous appearance without focal mass. The portal vein is patent. The gallbladder is unremarkable. The spleen, pancreas, adrenal glands, and kidneys have a normal appearance. There is no pathologically enlarged mesenteric or retroperitoneal adenopathy. The bowel loops are nondilated. The appendix is visualized in the right lower quadrant and has a normal appearance. There is no free fluid or free air. No acute osseous abnormalities. Ureters and bladder are grossly normal. There is no free air, loculated collection, or adenopathy in the pelvis. IMPRESSION: 1. Heterogeneous appearance of the liver without focal mass. Findings can be seen with hepatitis and/or hepatic steatosis. Recommend correlation with LFTs. Dictated by: Dictated on workstation # [id number]
--- NOTE | 2021-05-08 07:06 | Diagnostic Imaging Report ---
INDICATION: Pain, atrial fibrillation, congestive failure COMPARISON: 03/28/2021 FINDINGS: The heart size within the upper limits of normal. There is no overt vascular congestion or failure pattern. The lungs were clear. No edema, pneumonia, effusion or pneumothorax. IMPRESSION: No acute appearing abnormality. Dictated by: Dictated on workstation # [id number]
[2021-05-08] MEDS ORDERED: LORazepam INJ 2 MG/ML (ATIVAN) VIAL IVP ONE (07:30)
[2021-05-08] MEDS ORDERED: DOXYCYCLINE 100 MG (VIBRAMYCIN) TABLET PO ONE (08:00)
[2021-05-08] MEDS ORDERED: ONDANSETRON 4 MG/2 ML (SDV) Z0FRAN IVP PRN (09:00)
[2021-05-08] MEDS ORDERED: ONDANSETRON 4 MG/2 ML (SDV) Z0FRAN ONE (09:00)
[2021-05-08] MEDS ORDERED: APIXABAN 5 MG (ELIQUIS) TABLET PO SCH (09:05)
[2021-05-08] MEDS ORDERED: diphenhydrAMINE 50 MG/ML INJ (BENADRYL) IV PRN (09:15)
--- NOTE | 2021-05-08 09:33 | Consultation-Cardiology ---
HPI-Cardiology Cardiology Consultation: Date of Consultation 05/08/2021 Date of Admission 05/08/2021 Attending Physician Jes Wesley MD Admitting Physician [facility] Consulting Physician DONAVAN RODRIGUEZ JR, MD HPI: Time Seen by a Provider: 08:00 Chief Complaint: Reason for consultation: Atrial fibrillation. I saw Carlos in the emergency room and on the cardiac stepdown unit here at [facility] this morning. He has a history of persistent atrial fibrillation, cardiomyopathy, chronic systolic heart failure, methamphetamine abuse, cigarette smoking, and medication noncompliance. He states that over the past 4 to 5 days he has been having right upper and lower quadrant abdominal pain. He has had some nausea and vomiting but denies any hematemesis or hematochezia. He denies constipation or diarrhea. He denies fever or chills. He also states for the past few days he has noticed bilateral lower extremity edema all the way up to his scrotum. He also has a rash over much of his body which is pruritic. Because of the persistent abdominal pain, he came to the emergency room last evening. During his evaluation, he was found to be in atrial fibrillation with a rapid ventricular rate. He was placed on intravenous diltiazem and given one dose of intravenous digoxin. He remained in atrial fibrillation. As such, a cardiology consultation was requested. States he gets palpitations from time to time with the sensation of a fluttering in his chest. However, when I saw him in the emergency room he was in atrial fibrillation and he did not have any palpitations. He denies any chest discomfort, dyspnea, paroxysmal nocturnal dyspnea, orthopnea, lightheadedness, or syncope. When I questioned him about his medications, he told me he had been taking Eliquis up until 5 days ago but then ran out of pills and changed over to Xarelto. However, when I spoke to him in his room on the floor, he states that they were about 2 weeks when he may not have taken any medication at all within the past 30 days. The last time he used methamphetamine was a few days ago though. He continues to smoke cigarettes. Certain portions of this document may have been dictated utilizing voice recognition technology. Inherent to this technology, typographical and grammatical errors may exist. As much as I am diligent to identify and correct these mistakes, some errors may remain in the document. Review of Systems-Cardiology Review of Systems Other comments Review of 10 organ systems is as per the history of present illness, otherwise negative. All Other Systems Reviewed Negative Unless Noted: Yes NFN-Glubix-Zvhjla Hx Patient Social History Smoking Status: Current Everyday Smoker 2nd Hand Smoke Exposure: Yes Have you traveled recently?: No Alcohol Use?: Yes Substance type: Methamphetamine Pt feels they are or have been: No Tobacco type used: Cigarettes Immunizations Up To Date Tetanus Booster (TDap): Unknown Date of Influenza Vaccine: Aug 09, 2020 Past Medical History PMH As described under Assessment. Family Medical History Family Medical History: He states his father of heart failure in his 50s and he had a brother who of cardiomyopathy in his 40s. Allergies and Home Medications Allergies Coded Allergies: Penicillins (Verified Allergy, Unknown, 11/09/20) Home Medications Amiodarone HCl 200 Mg Tablet, 400 MG PO BID Prescribed by: JB VALDEZ on 03/31/21 1006 Atorvastatin Calcium 40 Mg Tablet, 40 MG PO DAILY Prescribed by: JB VALDEZ on 03/31/21 1204 Digoxin 250 Mcg Tablet, 0.25 MG PO DAILY Prescribed by: JB VALDEZ on 03/31/21 1006 Metoprolol Tartrate 100 Mg Tablet, 50 MG PO BID Prescribed by: JB VALDEZ on 03/31/21 1006 Rivaroxaban 20 Mg Tablet, 20 MG PO DAILY@1700 Prescribed by: JB VALDEZ on 03/31/21 1006 Patient Home Medication List Home Medication List Reviewed: Yes Exam Vital Signs Vital Signs Date Time Temp Pulse Resp B/P (MAP) Pulse Ox O2 Delivery O2 Flow Rate FiO2 05/08/21 10:00 115 23 118/91 (101) Room Air 05/08/21 09:00 97 05/08/21 04:25 36.5 Physical Exam General: Alert. No acute distress. Well nourished and appears stated age. Eye: Extraocular movements are intact. Conjunctivae are clear. There are no xanthelasma. HENT: Normocephalic. Atraumatic. Carotid pulsations 2/2 without bruits. Neck: Jugular venous pressure does not appear elevated. No thyromegaly appreciated. Respiratory: Lungs are clear to auscultation. Respirations are non-labored. Breath sounds are equal. Symmetrical chest wall expansion. Cardiovascular: Tachycardia. Irregular rhythm. No murmur. No gallop. Point of maximal impulse is not appear displaced. Good pulses equal in all extremities. 2+ bilateral lower extremity edema up to his groin. Gastrointestinal: Soft. Normal bowel sounds. Skin: Skin turgor is normal. There is no pallor. Diffuse papular rash on his trunk and extremities. Musculoskeletal: No kyphosis or scoliosis appreciated. Neurologic: Alert and oriented to person, place, time. Cranial nerves 3-12 appear grossly intact. The patient has good motor tone strength in the upper and lower extremities bilaterally. Psychiatric: Cooperative. Appropriate mood & affect. Labs Laboratory Tests Test 05/08/21 04:30 05/08/21 05:09 05/08/21 08:09 Range/Units White Blood Count 11.8 H 4.3-11.0 10^3/uL Red Blood Count 5.50 4.30-5.52 10^6/uL Hemoglobin 15.9 13.3-17.7 g/dL Hematocrit 51 40-54 % Mean Corpuscular Volume 93 80-99 fL Mean Corpuscular Hemoglobin 29 25-34 pg Mean Corpuscular Hemoglobin Concent 31 L 32-36 g/dL Red Cell Distribution Width 16.4 H 10.0-14.5 % Platelet Count 372 130-400 10^3/uL Mean Platelet Volume 10.9 9.0-12.2 fL Immature Granulocyte % (Auto) 0 % Neutrophils (%) (Auto) 71 42-75 % Lymphocytes (%) (Auto) 15 12-44 % Monocytes (%) (Auto) 9 0-12 % Eosinophils (%) (Auto) 5 0-10 % Basophils (%) (Auto) 0 0-10 % Neutrophils # (Auto) 8.4 H 1.8-7.8 10^3/uL Lymphocytes # (Auto) 1.7 1.0-4.0 10^3/uL Monocytes # (Auto) 1.1 H 0.0-1.0 10^3/uL Eosinophils # (Auto) 0.6 H 0.0-0.3 10^3/uL Basophils # (Auto) 0.1 0.0-0.1 10^3/uL Immature Granulocyte # (Auto) 0.1 0.0-0.1 10^3/uL Sodium Level 139 135-145 MMOL/L Potassium Level 3.3 L 3.6-5.0 MMOL/L Chloride Level 100 98-107 MMOL/L Carbon Dioxide Level 24 21-32 MMOL/L Anion Gap 15 H 5-14 MMOL/L Blood Urea Nitrogen 7 7-18 MG/DL Creatinine 0.88 0.60-1.30 MG/DL Estimat Glomerular Filtration Rate 95 BUN/Creatinine Ratio 8 Glucose Level 109 H 70-105 MG/DL Calcium Level 10.0 8.5-10.1 MG/DL Corrected Calcium 10.2 H 8.5-10.1 MG/DL Total Bilirubin 1.2 H 0.1-1.0 MG/DL Aspartate Amino Transf (AST/SGOT) 37 H 5-34 U/L Alanine Aminotransferase (ALT/SGPT) 25 0-55 U/L Alkaline Phosphatase 133 40-136 U/L Total Creatine Kinase 270 H 30-200 U/L Creatine Kinase MB 5.9 <6.6 NG/ML Troponin I < 0.028 <0.028 NG/ML B-Type Natriuretic Peptide 1151.7 H <100.0 PG/ML Total Protein 8.1 6.4-8.2 GM/DL Albumin 3.8 3.2-4.5 GM/DL Urine Color ORANGE Urine Clarity CLEAR Urine pH 6.0 5-9 Urine Specific [place] >=1.030 1.016-1.022 Urine Protein 3+ H NEGATIVE Urine Glucose (UA) TRACE H NEGATIVE Urine Ketones TRACE H NEGATIVE Urine Nitrite NEGATIVE NEGATIVE Urine Bilirubin N NEGATIVE Urine Urobilinogen 1.0 < = 1.0 MG/DL Urine Leukocyte Esterase NEGATIVE NEGATIVE Urine RBC (Auto) TRACE-I NEGATIVE Urine RBC NONE /HPF Urine WBC NONE /HPF Urine Crystals NONE /LPF Urine Bacteria TRACE /HPF Urine Casts PRESENT /LPF Urine Hyaline Casts 5-10 H /LPF Urine Mucus NEGATIVE /LPF Urine Culture Indicated NO ECG Impression ECG Comment Atrial fibrillation with a rapid ventricular rate in the 130s with diffuse ST depression. Diagnosis/Problems Diagnosis/Problems (1) Persistent atrial fibrillation Assessment & Plan: He likely has had persistent atrial fibrillation since his previous hospitalization here in March. Unfortunately, he has not been compliant with his oral anticoagulation. During the previous hospitalization he had a transesophageal echocardiogram that showed an ill-defined density in the left atrium which could have been thrombus. As such, since he has not been compliant with his anticoagulation, it would not be safe to to perform a cardioversion either electrically or chemically. I recommend that we get his rate under control with intravenous diltiazem. I will resume beta-ryan. He may need a higher dose of beta-ryan at the time of discharge. I suspect some of the tachycardia is related to medication noncompliance with beta-ryan. I would not recommend prescribing any additional digoxin as this typically has little use for rate control in atrial fibrillation. I will place him back on rivaroxaban for oral anticoagulation. I stressed to him the importance that rivaroxaban be taken with a large meal in order to be appropriately absorbed. I also stressed to the importance of medication compliance. (2) Acute on chronic systolic heart failure Assessment & Plan: His BNP is elevated but his chest x-ray did not show overt pulmonary edema. On the other hand, he has bilateral lower extremity edema up to his groin. I have ordered 80 mg IV furosemide. We will supplement his potassium. I will start him on a low-dose of losartan. We will need to watch his blood pressures closely. (3) Cardiomyopathy Assessment & Plan: He had moderate left ventricular systolic dysfunction on a previous transthoracic echocardiogram earlier this year. When he underwent his transesophageal echocardiogram in March his ejection fraction was up to the 40% range. He had been prescribed metoprolol tartrate. I recommend discontinuing metoprolol tartrate and placing him on metoprolol succinate. I will also add losartan as above. I would hold off on adding an aldosterone antagonist until we see how he responds to these other medications in terms of his blood pressure. Of note, his most recent echocardiogram showed an ejection fraction above the cutoff for recommending prophylactic defibrillator. (4) Left atrial thrombus Status: Acute Assessment & Plan: As above, his transesophageal echocardiogram from 03/28/2021 showed a suspicious echodensity in the left atrium. A thrombus could not be completely excluded. He will need to be on oral anticoagulation for 30 days straight without any interruptions before we can consider cardioversion. Furthermore, he would need to continue oral anticoagulation for at least 30 days following a cardioversion. His [id number] score is 2 which ultimately means he should be on oral anticoagulation for life. (5) Noncompliance with medication regimen Assessment & Plan: Medication compliance was stressed to the patient (6) Cigarette smoker Assessment & Plan: Smoking cessation was urged DONAVAN RODRIGUEZ JR, MD May 08, 2021 09:33
[2021-05-08] MEDS: NS W/KCL 20 MEQ/L 1,000 ML IV SCH ×3 (09:39→23:23)
[2021-05-08] MEDS ORDERED: KCL 20 MEQ TAB (K-DUR) PO ONE (09:45)
[2021-05-08] MEDS ORDERED: FUROSEMIDE 40 MG/4 ML INJ (LASIX) IVP ONE (09:45)
[2021-05-08] MEDS: dilTIAZem DRIP PRE-MIX 125 ML IV SCH ×2 (09:56→13:55)
[2021-05-08] MEDS ORDERED: meTOprolol SUCCINATE 100 MG (TOPROL XL) TAB PO ONE (10:45)
[2021-05-08] MEDS ORDERED: LOSARTAN 25 MG (COZAAR) TAB PO ONE (10:45)
[2021-05-08] MEDS ORDERED: METO100T12 PO (11:03)
[2021-05-08] MEDS ORDERED: RIVA20TA2 PO (11:03)
[2021-05-08] MEDS ORDERED: DIPH25TA65 PO (11:03)
[2021-05-08] MEDS: LORazepam INJ 2 MG/ML (ATIVAN) VIAL IV PRN ×2 (11:19→18:15)
[2021-05-08] MEDS ORDERED: MELATONIN 3 MG TABLET PO PRN (12:30)
[2021-05-08] MEDS ORDERED: polyethylene glycoL POWDER 17 GM (MIRALAX) PACK PO PRN (12:30)
[2021-05-08] MEDS ORDERED: NALOXONE 0.4 MG/ML 1 ML (NARCAN) VIAL IV PRN (12:30)
[2021-05-08] MEDS ORDERED: ANTACID SUSP 30 ML UDC (MYLANTA) PO PRN (12:30)
[2021-05-08] MEDS ORDERED: ACETAMINOPHEN 500 MG TAB (TYLENOL) PO PRN (12:30)
--- NOTE | 2021-05-08 12:49 | History & Physical-Hospitalist ---
History of Present Illness HPI/Chief Complaint Carlos Alexander is a 40-year-old male with past medical history of nonischemic cardiomyopathy, paroxysmal atrial fibrillation, methamphetamine abuse, who presented with abdominal pain. Upon my exam, he does not complain of any abdominal pain. He reports bilateral leg pain and swelling. He also has a rash. He says that he is outdoors frequently and is exposed to ticks daily. He has also been using methamphetamine. I do not have confidence that he has been adherent to his medication regimen. Source: patient Exam Limitations: no limitations Date Seen 05/08/21 Time Seen by a Provider: 09:30 Attending Physician Jes Araiza MD PCP Center/[facility] Referring Physician Date of Admission May 08, 2021 at 08:11 Home Medications & Allergies Home Medications Reviewed patient Home Medication Reconciliation performed by pharmacy medication reconciliations screen making technician and/or nursing. Patients Allergies have been reviewed. Allergies Allergies Coded Allergies Penicillins (Verified Allergy, Unknown, 11/09/20) Past Hvswnvy-Kdphqx-Wzrftu Hx Patient Social History Tobacco Use?: Yes Tobacco type used: Cigarettes Smoking Status: Current Everyday Smoker Use of E-Cig and/or Vaping dev: No Substance use?: No Substance type: Methamphetamine Substance frequency: Couple times a week Alcohol Use?: Yes Alcohol type: Beer Alcohol Frequency: Several times a month Pt feels they are or have been: No Immunizations Up To Date Date of Influenza Vaccine: Aug 09, 2020 Tetanus Booster (TDap): Unknown Hepatitis A: No Hepatitis B: No Current Status Advance Directives: Yes Advance Directive Location: Home Communicates: Verbally Primary Language: Malay Preferred Spoken Language: Malay Is interpretation needed?: No Sensory deficits: Vision impairment Implanted or Applied Medical D: None Past Medical History Surgeries: Abdominal, Appendectomy Atrial Fibrillation, Cardiomyopathy, High Cholesterol, Hypertension Gastroesophageal Reflux Blood Disorders: No AF Meth use Family Medical History No Pertinent Family Hx SOCIAL HISTORY: -ETOH--REGULAR USE -DRUGS--METHAMPHETAMINES -SMOKES 1 PPD PAST SURGICAL HISTORY: -APPENDECTOMY -HERNIA REPAIR -CARDIOVERSIONS ECHOCARDIOGRAM 11/13/20--EF 30-35%, NO REGIONAL WALL MOTION ABNORMALITIES. EXTREME NON-COMPLIANCE IN ALL ASPECTS OF CARE Review of Systems Constitutional: no symptoms reported EENTM: no symptoms reported Respiratory: no symptoms reported Cardiovascular: no symptoms reported Gastrointestinal: abdominal pain; No diarrhea, No nausea, No vomiting Genitourinary: no symptoms reported Musculoskeletal: other (Leg pain and swelling) Skin: no symptoms reported Psychiatric/Neurological: No Symptoms Reported Physical Exam Physical Exam Vital Signs Vital Signs - First Documented 05/08/21 05/08/21 04:25 11:10 Temp 36.5 Pulse 154 Resp 20 B/P (MAP) 134/110 (118) Pulse Ox 99 O2 Delivery Room Air O2 Flow Rate 2.00 Capillary Refill : Less Than 3 Seconds Height, Weight, BMI Height: '" Weight: lbs. oz. kg; 31.43 BMI Method: General Appearance: No Apparent Distress, Chronically ill, Obese HEENT: PERRL/EOMI, Pharynx Normal Neck: Normal Inspection, Supple Respiratory: Lungs Clear, Normal Breath Sounds, No Respiratory Distress Cardiovascular: No Murmur, Irregularly Irregular, Tachycardia Gastrointestinal: Normal Bowel Sounds, Non Tender, Soft Extremity: Swelling (2+ pitting edema to groin bilaterally) Neurologic/Psychiatric: Alert, No Motor/Sensory Deficits, Depressed Affect Skin: Warm/Dry, Other (Diffuse excoriations) Results Results/Procedures Labs Laboratory Tests 05/08/21 04:30 Patient resulted labs reviewed. Imaging: Reviewed Imaging Report Assessment/Plan Admission Diagnosis Paroxysmal atrial fibrillation with rapid ventricular response Admission Status: Inpatient Order (span 2 midnights) Reason for Inpatient Admission: A. fib with RVR requiring IV medications Assessment and Plan Paroxysmal atrial fibrillation with rapid ventricular response Nonischemic cardiomyopathy Acute on chronic heart failure with reduced ejection fraction Cardiology consulted, appreciate assistance IV diltiazem Xarelto Lasix Possible tickborne illness Tick panel pending Started on doxycycline Amphetamine abuse Tobacco abuse Recommend methamphetamine and smoking cessation Diagnosis/Problems Diagnosis/Problems (1) Atrial fibrillation with RVR Status: Acute (2) NICM (nonischemic cardiomyopathy) Status: Chronic (3) HFrEF (heart failure with reduced ejection fraction) Status: Acute (4) Noncompliance with medication regimen Status: Acute (5) Methamphetamine use Status: Acute (6) Cigarette smoker Status: Chronic (7) Obesity Status: Chronic JES ARAIZA MD May 08, 2021 12:49
[2021-05-08] MEDS: RIVAROXABAN 20 MG TABLET (XARELTO) PO SCH (16:08)
--- NOTE | 2021-05-08 17:43 | Tele-ICU Consult ---
History of Present Illness History of Present Illness Date Seen by Provider: May 08, 2021 Time Seen by Provider: 17:00 History of Present Illness 40 yo M admitted for a fib, Has Hx of a fib, possible thrombus in [place], CHADS- VASC2 score is 2, has not been compiiant with meds also hx of methamphetamine abuse CXR shows mild increase in HS but no infiltrate LVEF around 40% On metroprolol, Xarelto, Losartan Thinks has been bitten by ticks, tick panel drawn Allergies and Home Medications Allergies Coded Allergies: Penicillins (Verified Allergy, Unknown, 11/09/20) Home Medications Diphenhydramine HCl 25 Mg Tablet, 25-50 MG PO Q6H PRN for ITCHING AND RASH, (Reported) Metoprolol Tartrate 100 Mg Tablet, 100 MG PO BID, (Reported) Rivaroxaban 20 Mg Tablet, 20 MG PO DAILY, (Reported) LAST FILLED 10-16-2019 #90/90 DAY SUPPLY Past Medical/Social/Family Hx Patient Social History Tobacco Use?: Yes Tobacco type used: Cigarettes Smoking Status: Current Everyday Smoker Use of E-Cig and/or Vaping dev: No Substance use?: No Substance type: Methamphetamine Substance frequency: Couple times a week Alcohol Use?: Yes Alcohol type: Beer Alcohol Frequency: Several times a month Pt stated abuse/neglect: No Immunizations Up To Date Influenza Vaccine Up-to-Date: No; Not Current Tetanus Booster (TDap): Unknown Hepatitis A: No Hepatitis B: No TB Skin Test: None Current Status Advance Directives: Yes Advance Directive Location: Home Communicates: Verbally Primary Language: Syrian Preferred Spoken Language: Syrian Is interpretation needed?: No Sensory deficits: Vision impairment Implanted or Applied Medical D: None Past Medical History AF Meth use Family Medical History Family Hx: SOCIAL HISTORY: -ETOH--REGULAR USE -DRUGS--METHAMPHETAMINES -SMOKES 1 PPD PAST SURGICAL HISTORY: -APPENDECTOMY -HERNIA REPAIR -CARDIOVERSIONS ECHOCARDIOGRAM 11/13/20--EF 30-35%, NO REGIONAL WALL MOTION ABNORMALITIES. EXTREME NON-COMPLIANCE IN ALL ASPECTS OF CARE Review of Systems Constitutional: dizziness Respiratory: see HPI, dyspnea on exertion Gastrointestinal: other (c/o abd pain, RLQ) Sepsis Event Evaluation Height, Weight, BMI Height: '" Weight: lbs. oz. kg; 31.43 BMI Method: Exam Exam Patient acknowledged, consented, and participated in this virtual visit which was conducted using real time audio/video Vital Signs Date Time Temp Pulse Resp B/P (MAP) Pulse Ox O2 Delivery O2 Flow Rate FiO2 05/08/21 17:00 101 21 101/85 (90) 97 Nasal Cannula 2.00 05/08/21 16:29 Nasal Cannula 3.00 94 05/08/21 16:22 Nasal Cannula 2.00 05/08/21 16:00 100 19 108/65 (79) 96 Nasal Cannula 3.00 05/08/21 15:59 35.0 05/08/21 15:00 104 17 109/72 (84) 98 Nasal Cannula 3.00 05/08/21 14:21 Nasal Cannula 3.00 05/08/21 14:00 95 17 130/93 (105) 96 Nasal Cannula 2.00 05/08/21 13:00 95 15 121/104 (110) 93 Nasal Cannula 2.00 05/08/21 13:00 112 05/08/21 12:00 112 26 107/92 (97) 94 Nasal Cannula 2.00 05/08/21 11:10 35.6 Nasal Cannula 2.00 05/08/21 11:00 95 19 105/87 (93) 90 Room Air 05/08/21 11:00 Nasal Cannula 2.00 92 05/08/21 10:45 97 19 93/71 (88) Room Air 05/08/21 10:30 103 14 96/73 (82) 05/08/21 10:15 103 17 107/92 (95) 05/08/21 10:00 115 23 118/91 (101) Room Air 05/08/21 09:45 108 33 114/94 (97) 05/08/21 09:30 112 29 115/90 (98) 05/08/21 09:22 99 05/08/21 09:15 103 26 111/76 (89) 05/08/21 09:00 112 29 116/78 (86) 97 Room Air 05/08/21 08:54 109 22 111/96 (99) 95 Room Air 05/08/21 08:33 118 18 120/98 95 Room Air 05/08/21 04:25 36.5 154 20 134/110 (118) 99 Room Air Height & Weight Height: '" Weight: lbs. oz. kg; 31.43 BMI Method: General Appearance: No Apparent Distress, Chronically ill, Obese HEENT: PERRL/EOMI, Pharynx Normal Neck: Normal Inspection, Supple Respiratory: Lungs Clear, Normal Breath Sounds, No Respiratory Distress Cardiovascular: No Murmur, Irregularly Irregular, Tachycardia Capillary Refill: Less Than 3 Seconds Gastrointestinal: normal bowel sounds, non tender, soft, guarding, tenderness (Right lower quadrant induration, overlying erythema very tender to palpation. Area is about 15 cm in diameter ), mass (Right lower quadrant -feels like it may be in the subcutaneous tissues), other (indurated RLQ, ) Extremity: Pedal Edema, Swelling (2+ pitting edema to groin bilaterally) Neurologic/Psychiatric: Alert, No Motor/Sensory Deficits, Depressed Affect Skin: Warm/Dry, Other (Diffuse excoriations) Results Lab Laboratory Tests 05/08/21 04:30 Assessment/Plan Assessment/Plan a fib, risk for thrombus, rate is now in 80's, continue present meds Critical Care: Critically Ill Patient Time spent with patient (mins): 15 CHAVA BARRETT MD May 08, 2021 17:43
[2021-05-08] MEDS ORDERED: hydrOXYzine (VISTARIL/ATARAX) 25 MG capsule/tablet PO PRN (18:15)
[2021-05-09 05:05] LABS: BASOPHILS # (AUTO) 0.1 10^3/uL (0.0-0.1); BASOPHILS % (AUTO) 1 % (0-10); EOSINOPHILS # (AUTO) 0.9 10^3/uL (0.0-0.3); EOSINOPHILS % (AUTO) 9 % (0-10); HEMATOCRIT 44 % (40-54); HEMOGLOBIN 13.8 g/dL (13.3-17.7); LYMPHOCYTES # (AUTO) 1.9 10^3/uL (1.0-4.0); LYMPHOCYTES % (AUTO) 18 % (12-44); MEAN CORPUSCULAR HEMOGLOBIN 29 pg (25-34); MEAN CORPUSCULAR HGB CONC 31 g/dL (32-36); MEAN CORPUSCULAR VOLUME 94 fL (80-99); MEAN PLATELET VOLUME 10.6 fL (9.0-12.2); MONOCYTES # (AUTO) 0.9 10^3/uL (0.0-1.0); MONOCYTES % (AUTO) 8 % (0-12); NEUTROPHILS % (AUTO) 65 % (42-75); PLATELET COUNT 307 10^3/uL (130-400); WHITE BLOOD COUNT 10.9 10^3/uL (4.3-11.0)
[2021-05-09 05:20] LABS: POTASSIUM 3.8 MMOL/L (3.6-5.0)
[2021-05-09 05:21] LABS: CALCIUM 8.5 MG/DL (8.5-10.1)
[2021-05-09 05:26] LABS: CREATININE SERUM 0.72 MG/DL (0.60-1.30)
[2021-05-09 05:28] LABS: MAGNESIUM 1.4 MG/DL (1.6-2.4)
[2021-05-09] MEDS: NS W/KCL 20 MEQ/L 1,000 ML IV SCH (06:41)
[2021-05-09] MEDS ORDERED: FUROSEMIDE 40 MG/4 ML INJ (LASIX) IVP ONE ×2 (07:00→13:30)
--- NOTE | 2021-05-09 08:56 | Progress Note - Hospitalist ---
Subjective HPI/CC On Admission Date Seen by Provider: May 09, 2021 Time Seen by Provider: 07:00 Carlos Alexander is a 40-year-old male with past medical history of nonischemic cardiomyopathy, paroxysmal atrial fibrillation, methamphetamine abuse, who presented with abdominal pain. Upon my exam, he does not complain of any abdominal pain. He reports bilateral leg pain and swelling. He also has a rash. He says that he is outdoors frequently and is exposed to ticks daily. He has also been using methamphetamine. I do not have confidence that he has been adherent to his medication regimen. Subjective/Events-last exam He continues to have abdominal and leg swelling. He does not feel short of breath. Objective Exam Vital Signs Vital Signs Date Time Temp Pulse Resp B/P (MAP) Pulse Ox O2 Delivery O2 Flow Rate FiO2 05/09/21 08:28 37.3 99 21 108/86 (93) 96 Nasal Cannula 3.00 05/08/21 20:00 94 Capillary Refill : Less Than 3 Seconds General Appearance: No Apparent Distress, Chronically ill Respiratory: Lungs Clear, Normal Breath Sounds, No Respiratory Distress Cardiovascular: No Murmur, Irregularly Irregular (Regular rate) Gastrointestinal: Normal Bowel Sounds, Soft, Tenderness Extremity: Normal Inspection, Non Tender, Swelling Neurologic/Psychiatric: Alert, Oriented x3, No Motor/Sensory Deficits, Normal Mood/Affect Skin: Normal Color, Warm/Dry Results/Procedures Lab Laboratory Tests 05/09/21 04:41 Patient resulted labs reviewed. Imaging: Reviewed Imaging Films, Reviewed Imaging Report Assessment/Plan Assessment and Plan Assess & Plan/Chief Complaint Paroxysmal atrial fibrillation with rapid ventricular response Nonischemic cardiomyopathy Acute on chronic heart failure with reduced ejection fraction Cardiology consulted, appreciate assistance IV diltiazem stopped Continue metoprolol and Xarelto Continue Lasix Stop IV fluids Possible tickborne illness Tick panel pending Continue doxycycline Amphetamine abuse Tobacco abuse Recommend methamphetamine and smoking cessation Diagnosis/Problems Diagnosis/Problems (1) Atrial fibrillation with RVR Status: Acute (2) NICM (nonischemic cardiomyopathy) Status: Chronic (3) HFrEF (heart failure with reduced ejection fraction) Status: Acute (4) Noncompliance with medication regimen Status: Acute (5) Methamphetamine use Status: Acute (6) Cigarette smoker Status: Chronic (7) Obesity Status: Chronic ALEXI ARAIZA MD May 09, 2021 08:56
[2021-05-09] MEDS: meTOprolol SUCCINATE 100 MG (TOPROL XL) TAB PO SCH (10:05)
[2021-05-09] MEDS: LOSARTAN 25 MG (COZAAR) TAB PO SCH (10:06)
--- NOTE | 2021-05-09 10:08 | Cardiology Progress Note ---
Progress Note-Cardiology Events since last exam Date Seen by Provider: May 09, 2021 Time Seen by Provider: 10:03 Events since last exam We are seeing him due to heart failure and atrial fibrillation. He denies chest discomfort, dyspnea, or palpitations. His lower extremity edema is improving but his legs still hurt. His abdominal pain seems to be better. He was moved from the intensive care unit to the cardiac stepdown unit last evening. Certain portions of this document may have been dictated utilizing voice recognition technology. Inherent to this technology, typographical and grammatical errors may exist. As much as I am diligent to identify and correct these mistakes, some errors may remain in the document. Vitals Last set of Vitals Signs Vital Signs 05/08/21 05/09/21 20:00 08:28 Temp 37.3 Pulse 99 Resp 21 B/P (MAP) 108/86 (93) Pulse Ox 96 O2 Delivery Nasal Cannula O2 Flow Rate 3.00 FiO2 94 Labs Labs Laboratory Tests 05/09/21 04:41 Exam Vital Signs Vital Signs Date Time Temp Pulse Resp B/P (MAP) Pulse Ox O2 Delivery O2 Flow Rate FiO2 05/09/21 08:28 37.3 99 21 108/86 (93) 96 Nasal Cannula 3.00 05/08/21 20:00 94 Physical Exam General: Alert. No acute distress. Eye: No xanthelasma. HENT: Normocephalic. Neck: Jugular venous pressure does not appear elevated. Respiratory: Lungs are clear to auscultation. Respirations are non-labored. Breath sounds are equal. Symmetrical chest wall expansion. Cardiovascular: Normal rate. Irregular rhythm. No murmur. No gallop. 1+ bilateral pretibial edema, improving. Gastrointestinal: Soft. Normal bowel sounds. Skin: Warm. Dry. Neurologic: Alert and oriented to person, place, time. Cranial nerves 3-11 grossly intact. Psychiatric: Cooperative. Appropriate mood & affect. Labs Laboratory Tests Test 05/08/21 10:05 05/09/21 04:41 Range/Units Influenza Type A (RT-PCR) Not Detected Not Detecte Influenza Type B (RT-PCR) Not Detected Not Detecte SARS-CoV-2 RNA (RT-PCR) Not Detected Not Detecte White Blood Count 10.9 4.3-11.0 10^3/uL Red Blood Count 4.75 4.30-5.52 10^6/uL Hemoglobin 13.8 13.3-17.7 g/dL Hematocrit 44 40-54 % Mean Corpuscular Volume 94 80-99 fL Mean Corpuscular Hemoglobin 29 25-34 pg Mean Corpuscular Hemoglobin Concent 31 L 32-36 g/dL Red Cell Distribution Width 16.3 H 10.0-14.5 % Platelet Count 307 130-400 10^3/uL Mean Platelet Volume 10.6 9.0-12.2 fL Immature Granulocyte % (Auto) 1 % Neutrophils (%) (Auto) 65 42-75 % Lymphocytes (%) (Auto) 18 12-44 % Monocytes (%) (Auto) 8 0-12 % Eosinophils (%) (Auto) 9 0-10 % Basophils (%) (Auto) 1 0-10 % Neutrophils # (Auto) 7.0 1.8-7.8 10^3/uL Lymphocytes # (Auto) 1.9 1.0-4.0 10^3/uL Monocytes # (Auto) 0.9 0.0-1.0 10^3/uL Eosinophils # (Auto) 0.9 H 0.0-0.3 10^3/uL Basophils # (Auto) 0.1 0.0-0.1 10^3/uL Immature Granulocyte # (Auto) 0.1 0.0-0.1 10^3/uL Sodium Level 140 135-145 MMOL/L Potassium Level 3.8 3.6-5.0 MMOL/L Chloride Level 104 98-107 MMOL/L Carbon Dioxide Level 22 21-32 MMOL/L Anion Gap 14 5-14 MMOL/L Blood Urea Nitrogen 8 7-18 MG/DL Creatinine 0.72 0.60-1.30 MG/DL Estimat Glomerular Filtration Rate 120 BUN/Creatinine Ratio 11 Glucose Level 120 H 70-105 MG/DL Calcium Level 8.5 8.5-10.1 MG/DL Magnesium Level 1.4 L 1.6-2.4 MG/DL Diagnosis/Problems Diagnosis/Problems (1) Persistent atrial fibrillation Assessment & Plan: He likely has had persistent atrial fibrillation since his previous hospitalization here in March. Unfortunately, he has not been compliant with his oral anticoagulation. During the previous hospitalization he had a transesophageal echocardiogram that showed an ill-defined density in the left atrium which could have been thrombus. As such, since he has not been compliant with his anticoagulation, it would not be safe to to perform a cardioversion either electrically or chemically. He has now been transitioned from in travenous diltiazem over to oral metoprolol succinate. I have resumed rivaroxaban. He will need a full 30 days of uninterrupted anticoagulation and then we can consider bringing him back as an outpatient for elective cardioversion. (2) Acute on chronic systolic heart failure Assessment & Plan: This is primarily manifested by bilateral lower extremity e shantal. This is improving with IV Lasix. His chest x-ray did not show pulmonary edema and he is not short of breath. I agree with 2 more doses of IV Lasix today. From a cardiac standpoint, he can be transferred again to the medical floor with telemetry monitoring. (3) Cardiomyopathy Assessment & Plan: He had moderate left ventricular systolic dysfunction on a previous transthoracic echocardiogram earlier this year. When he underwent his transesophageal echocardiogram in March his ejection fraction was up to the 40% range. I changed his metoprolol tartrate over to metoprolol succinate. I have also added low-dose losartan. He will ultimately need a follow-up echocardiogram in the next few months. I will hold off on starting an aldosterone antagonist to help avoid hypotension. His transesophageal echocardiogram from March did show improvement in his ejection fraction above the cutoff where we would recommend prophylactic defibrillator. (4) Left atrial thrombus Status: Acute Assessment & Plan: As above, his transesophageal echocardiogram from 03/28/2021 showed a suspicious echodensity in the left atrium. A thrombus could not be completely excluded. As above, he will need to be on oral anticoagulation for 30 days straight without any interruptions before we can consider cardioversion. Furthermore, he would need to continue oral anticoagulation for at least 30 days following a cardioversion. His [id number] score is 2 which ultimately means he should be on oral anticoagulation for life. (5) Noncompliance with medication regimen Status: Acute Assessment & Plan: Medication compliance was stressed to the patient. If he has not compliant with his medication then we will not be able to perform a c ardioversion and he will likely develop worsening cardiomyopathy and worsening heart failure. (6) Cigarette smoker Status: Chronic Assessment & Plan: Smoking cessation was strongly encouraged. DONAVAN RODRIGUEZ JR, MD May 09, 2021 10:08
[2021-05-09] MEDS: LORazepam INJ 2 MG/ML (ATIVAN) VIAL IV PRN ×2 (13:30→20:11)
[2021-05-09] MEDS ORDERED: KCL 20 MEQ TAB (K-DUR) PO ONE (16:15)
[2021-05-09] MEDS: MAGNESIUM 1 GM/100 ML IVPB 100 ML IV SCH ×4 (16:54→20:33)
[2021-05-09] MEDS: RIVAROXABAN 20 MG TABLET (XARELTO) PO SCH (16:54)
[2021-05-09] MEDS: NICOTINE 14 MG (NICODERM) PATCH TD SCH (21:29)
[2021-05-10] MEDS: LORazepam INJ 2 MG/ML (ATIVAN) VIAL IV PRN ×2 (00:15→05:21)
[2021-05-10 06:53] LABS: CREATININE SERUM 0.74 MG/DL (0.60-1.30); MAGNESIUM 1.8 MG/DL (1.6-2.4); POTASSIUM 4.2 MMOL/L (3.6-5.0)
[2021-05-10] MEDS: NICOTINE 14 MG (NICODERM) PATCH TD SCH (08:21)
[2021-05-10] MEDS: meTOprolol SUCCINATE 100 MG (TOPROL XL) TAB PO SCH (08:21)
[2021-05-10] MEDS: LOSARTAN 25 MG (COZAAR) TAB PO SCH (08:21)
[2021-05-10] MEDS ORDERED: [UNRECOGNIZED DRUG - REMARK] TP SCH (09:00)
--- NOTE | 2021-05-10 11:05 | Cardiology Progress Note ---
Progress Note-Cardiology Events since last exam Date Seen by Provider: May 10, 2021 Time Seen by Provider: 10:59 Events since last exam We are seeing him due to atrial fibrillation and heart failure. I did not go in his room due to his PUI status for Covid. I spoke to the ALUMNI COORDINATOR who walked with him in the halls this morning and the patient was not complaining of any pain in his legs or edema. His only complaint continues to be intermittent right upper quadrant abdominal pain. I also spoke to his nurse who reports he has not been complaining about any chest pain, shortness of breath, palpitations, or syncope. Certain portions of this document may have been dictated utilizing voice recognition technology. Inherent to this technology, typographical and grammatical errors may exist. As much as I am diligent to identify and correct these mistakes, some errors may remain in the document. Vitals Last set of Vitals Signs Vital Signs 05/08/21 05/09/21 05/10/21 20:00 21:00 07:50 Temp 35.8 Pulse 89 Resp 20 B/P (MAP) 119/67 (84) Pulse Ox 95 O2 Delivery Room Air O2 Flow Rate 2.00 FiO2 94 Labs Labs Laboratory Tests 05/10/21 05:21 Exam Vital Signs Vital Signs Date Time Temp Pulse Resp B/P (MAP) Pulse Ox O2 Delivery O2 Flow Rate FiO2 05/10/21 07:50 35.8 89 20 119/67 (84) 95 Room Air 05/09/21 21:00 2.00 05/08/21 20:00 94 Physical Exam As above, I did not examine the patient due to his PUI status for Covid. I did not enter his room. Labs Laboratory Tests Test 05/10/21 05:21 Range/Units Sodium Level 136 135-145 MMOL/L Potassium Level 4.2 3.6-5.0 MMOL/L Chloride Level 100 98-107 MMOL/L Carbon Dioxide Level 28 21-32 MMOL/L Anion Gap 8 5-14 MMOL/L Blood Urea Nitrogen 11 7-18 MG/DL Creatinine 0.74 0.60-1.30 MG/DL Estimat Glomerular Filtration Rate 117 BUN/Creatinine Ratio 15 Glucose Level 87 70-105 MG/DL Calcium Level 9.0 8.5-10.1 MG/DL Magnesium Level 1.8 1.6-2.4 MG/DL Diagnosis/Problems Diagnosis/Problems (1) Persistent atrial fibrillation Assessment & Plan: He likely has had persistent atrial fibrillation since his previous hospitalization here in March. Unfortunately, he had not been compliant with his oral anticoagulation prior to this admission. During the previous hospitalization he had a transesophageal echocardiogram that showed an ill- defined density in the left atrium which could have been thrombus. As such, since he has not been compliant with his anticoagulation, it would not be safe to to perform a cardioversion either electrically or chemically. I have resumed rivaroxaban. He will need a full 30 days of uninterrupted anticoagulation and then we can consider bringing him back as an outpatient for elective cardioversion. (2) Acute on chronic systolic heart failure Assessment & Plan: This is primarily manifested by bilateral lower extremity edema. This has improving with IV Lasix. His chest x-ray did not show pulmonary edema and he is not short of breath. After this morning's dose of intravenous Lasix, I will change him over to oral Lasix and I suggest he be discharged home with this. From a cardiac standpoint, he can probably be discharged home later today. I will have our office get in touch with him to schedule a follow-up appointment in our office later this week. (3) Cardiomyopathy Assessment & Plan: He had moderate left ventricular systolic dysfunction on a previous transthoracic echocardiogram earlier this year. When he underwent his transesophageal echocardiogram in March his ejection fraction was up to the 40% range. I changed his metoprolol tartrate over to metoprolol succinate. I have also added low-dose losartan. I will hold off on starting an aldosterone antagonist to help avoid hypotension. Of note, his transesophageal echocardiogram from March did show improvement in his ejection fraction above the cutoff where we would recommend prophylactic defibrillator. After he is on the maximum tolerated doses of guideline directed medical therapy, he will need a follow-up echocardiogram 1-2 months later. Unfortunately, due to his noncompliance, I suspect this will be difficult to coordinate after discharge. (4) Left atrial thrombus Status: Acute Assessment & Plan: As above, his transesophageal echocardiogram from 03/28/2021 showed a suspicious echodensity in the left atrium. A thrombus could not be completely excluded. As above, he will need to be on oral anticoagulation for 30 days straight without any interruptions before we can consider cardioversion. Furthermore, he would need to continue oral anticoagulation for at least 30 days following a cardioversion. His [id number] score is 2 which ultimately means he should be on oral anticoagulation for life. (5) Noncompliance with medication regimen Status: Acute Assessment & Plan: Medication compliance was stressed to the patient. If he is not compliant with his medication then we will not be able to perform a cardioversion and he will likely develop worsening cardiomyopathy and worsening heart failure. (6) Cigarette smoker Status: Chronic Assessment & Plan: Smoking cessation has been strongly encouraged. DONAVAN RODRIGUEZ JR, MD May 10, 2021 11:05
[2021-05-10] MEDS ORDERED: MTP100TCR PO (12:13)
[2021-05-10] MEDS ORDERED: FURO40TA4 PO (12:13)
[2021-05-10] MEDS ORDERED: LOSA25TA41 PO (12:13)
[2021-05-10] MEDS ORDERED: DOXY100C2 PO (12:24)
--- NOTE | 2021-05-10 12:24 | Discharge Summary ---
Discharge Summary Hospital Course Was the Problem List Reviewed?: Yes Problems/Dx: (1) Persistent atrial fibrillation (2) Acute on chronic systolic heart failure (3) Cardiomyopathy (4) Left atrial thrombus Status: Acute (5) Noncompliance with medication regimen Status: Acute (6) Cigarette smoker Status: Chronic Hospital Course Date of Admission: May 08, 2021 at 08:11 Admission Diagnosis : Persistent atrial fibrillation with rapid ventricular response [facility] [place] Date of Discharge: 05/10/21 Discharge Diagnosis: Persistent atrial fibrillation with rapid ventricular response Hospital Course: Carlos Alexander is a 40-year-old male with nonischemic cardiomyopathy, methamphetamine abuse, nonadherence to medication regimen, who presented with abdominal pain and was found to be in atrial fibrillation with rapid ventricular response. He was started on IV Cardizem and his heart rates improved. Cardiology was consulted and assisted with his care. He was transitioned to oral metoprolol. He was resumed on his home Xarelto which she had not been taking. Cardiology would have preferred to do a cardioversion, but due to his nonadherence, they are unable to do this. He had previously undergone a PHILLIP with attempted car dioversion but there was concern for a thrombus. He had abdominal pain and leg pain which was due to edema. He was started on IV Lasix and transition to oral Lasix on discharge. He was concerned about recent tick bites. A tick panel was ordered and was pending at the time of discharge. He was started on prophylactic doxycycline. He was encouraged to be adherent to his medication regimen and quit using methamphetamine. He should follow-up with his primary care physician in about a week. He should follow-up with cardiology as scheduled. He was discharged home in stable condition. Labs and Pending Lab Test: Laboratory Tests 05/10/21 05:21: Sodium Level 136, Potassium Level 4.2, Chloride Level 100, Carbon Dioxide Level 28, Anion Gap 8, Blood Urea Nitrogen 11, Creatinine 0.74, Estimat Glomerular Filtration Rate 117, BUN/Creatinine Ratio 15, Glucose Level 87, Calcium Level 9.0, Magnesium Level 1.8 Microbiology 05/08/21 MRSA Screen - Final, Complete Home Meds Active Furosemide 40 Mg Tablet 40 Mg PO DAILY 30 Days Losartan Potassium 25 Mg Tablet 25 Mg PO DAILY 30 Days Metoprolol Succinate 100 Mg Tab.er.24h 100 Mg PO DAILY 30 Days Reported Benadryl Allergy (Diphenhydramine HCl) 25 Mg Tablet 25-50 Mg PO Q6H PRN Xarelto Tablet (Rivaroxaban) 20 Mg Tablet 20 Mg PO DAILY LAST FILLED 10-16-2019 #90/90 DAY SUPPLY Metoprolol Tartrate 100 Mg Tablet 100 Mg PO BID Assessment/Pt Instructions Take medications as prescribed. Follow-up with your primary care physician in about a week. Return with worsening shortness of breath, swelling, or if you feel like you are getting worse. Discharge Planning: <30 minutes discharge planning Discharge Instructions Discharge Diet: Low Sodium Diet Activity as Tolerated: Yes Consultations Cardiology Discharge Physical Examination Vital Signs Vital Signs Date Time Temp Pulse Resp B/P (MAP) Pulse Ox O2 Delivery O2 Flow Rate FiO2 05/10/21 11:44 36.4 86 20 91/59 (70) 96 Room Air 05/09/21 21:00 2.00 05/08/21 20:00 94 General Appearance: No Apparent Distress, Obese HEENT: PERRL/EOMI, Pharynx Normal Respiratory: Lungs Clear, Normal Breath Sounds, No Respiratory Distress Cardiovascular: Regular Rate, Rhythm, No Edema, No Murmur Gastrointestinal: Normal Bowel Sounds, Non Tender, Soft Extremity: Normal Inspection, Non Tender, Pedal Edema Skin: Normal Color, Warm/Dry Neurologic/Psychiatric: Alert, Oriented x3, No Motor/Sensory Deficits, Normal Mood/Affect Allergies: Coded Allergies: Penicillins (Verified Allergy, Unknown, 11/09/20) Copy Copies To 1: [facility] [place] Date of Admission May 08, 2021 at 08:11 Date of Discharge Discharge Date: May 10, 2021 Discharge Time: 11:00 Admission Diagnosis Paroxysmal atrial fibrillation with rapid ventricular response Consults/Procedures Consulations Cardiology Discharge Diagnosis Paroxysmal atrial fibrillation with rapid ventricular response Nonischemic cardiomyopathy Acute on chronic heart failure with reduced ejection fraction (1) Persistent atrial fibrillation (2) Acute on chronic systolic heart failure (3) Cardiomyopathy (4) Left atrial thrombus Status: Acute (5) Noncompliance with medication regimen Status: Acute (6) Cigarette smoker Status: Chronic ALEXI ARAIZA MD May 10, 2021 12:20
[2021-05-10] MEDS: FUROSEMIDE 40 MG/4 ML INJ (LASIX) IVP ONE ×2 (13:35→13:42)
[2021-05-10] MEDS ORDERED: FUROSEMIDE 40 MG (LASIX) TAB PO ONE (14:00)
[2021-05-10 14:42] VITALS: BP 91/59
[2021-05-11] MEDS ORDERED: FUROSEMIDE 40 MG (LASIX) TAB PO SCH (09:00)
== END 2021-05-10 14:46 | disposition home or self-care (01) | DRG 308 ==
LOC: EDUNIT# 04:19 → ER 04:23 → CSD 08:11 → EDLOC 08:11 → ICU 10:48 → CSD 05-09 08:28 → 4TH 05-09 14:32
PROVIDERS: ADMIT Internal Medicine; ATTEND Internal Medicine
DX: I48.19 Other persistent atrial fibrillation (principal); I50.23 Acute on chronic systolic (congestive) heart failure; A93.8 Other specified arthropod-borne viral fevers; F17.210 Nicotine dependence, cigarettes, uncomplicated; Z20.822 Contact with and (suspected) exposure to COVID-19; I42.8 Other cardiomyopathies; F15.10 Other stimulant abuse, uncomplicated; I11.0 Hypertensive heart disease with heart failure; E78.00 Pure hypercholesterolemia, unspecified; K21.9 Gastro-esophageal reflux disease without esophagitis; E66.9 Obesity, unspecified; I51.3 Intracardiac thrombosis, not elsewhere classified; Z91.14 Patient's other noncompliance with medication regimen; Z68.30 Body mass index [BMI] 30.0-30.9, adult
CPT/HCPCS: 36415; 71045; 74177; 80048; 80053; 81000; 82550; 82553; 83735; 83880; 84484; 85025; 86618; 86666; 86668; 86757; 87081; 87636; 93005

== ENCOUNTER 2021-05-12 01:16 | Emergency (ER) | payer SELFPAY ==
[~2021-05-12] VITALS: Ht 180.3 cm; Wt 101.0 kg
[~2021-05-12 01:16] MED LIST changes: +DIPH25TA65 PO; +DOXY100C2 PO; +FURO40TA4 PO; +LOSA25TA41 PO; +MTP100TCR PO
[2021-05-12] MEDS ORDERED: TRIM/SULFAMETH 160/800 (SEPTRA DS) TAB PO ONE (02:45)
[2021-05-12] MEDS ORDERED: CLINDAMYCIN 600 MG/4ML (CLEOCIN) VIAL IM ONE (02:45)
[2021-05-12] MEDS ORDERED: CLINDAMYCIN 300 MG/2ML (CLEOCIN) VIAL ONE (02:47)
[2021-05-12] MEDS ORDERED: HYDROcodone/APAP 5 MG/325 MG (LORTAB) TAB PO ONE (03:45)
[2021-05-12] MEDS ORDERED: SULF1TAB38 PO ×2 (03:58→09:00)
[2021-05-12] MEDS ORDERED: CLIN300C12 PO ×2 (03:58→09:00)
[2021-05-12] MEDS ORDERED: ACHD5005 PO ×2 (03:59→09:00)
--- NOTE | 2021-05-12 04:00 | ED General ---
General Chief Complaint: General Problems/Pain Stated Complaint: ABD PAIN Nursing Triage Note: Pt ambulatory into ER with complaint of Foot, Leg, Abdomen Pain x a while. Pt states that his legs are really swollen, foot has a sore from swimming in a pond, and his belly has big growths on it, that aren't visable to the eye. Source of Information: Patient, Old Records Exam Limitations: No Limitations History of Present Illness Date Seen by Provider: May 12, 2021 Time Seen by Provider: 02:24 Initial Comments This 41 year old patient was admitted 4 days ago for atrial fibrillation with RVR. At that time he was also noted to have some erythema of the lower extremities, particularly the thighs, and a rash. Symptoms seemed suspicious for tickborne disease. He was placed on doxycycline at that time and a tick panel was obtained. Tick panel has now been reviewed and was negative. Today he complains of worsening pain and erythema of the inner thighs. He is afebrile. He also complains of a painful swelling on the right abdomen. Nothing was appreciated on exam in this area on his last visit. However, today there are patches of indurated swelling in the skin and subcutaneous tissue of the right lower abdomen. There is no discrete mass in this area. Allergies and Home Medications Allergies Coded Allergies: Penicillins (Verified Allergy, Unknown, 11/09/20) Home Medications Clindamycin HCl 300 Mg Capsule, 300 MG PO QID Prescribed by: ALBIN BOJORQUEZ on 05/12/21 0900 Last Action: New Order Diphenhydramine HCl 25 Mg Tablet, 25-50 MG PO Q6H PRN for ITCHING AND RASH, (Reported) Doxycycline Hyclate 100 Mg Capsule, 100 MG PO BID Prescribed by: ALEXI ARAIZA on 05/10/21 1224 Furosemide 40 Mg Tablet, 40 MG PO DAILY Prescribed by: ALEXI ARAIZA on 05/10/21 1213 Hydrocodone/Acetaminophen 1 Each Tablet, 1 TAB PO Q4H PRN for PAIN-MODERATE (5- 7) Prescribed by: ALBIN BOJORQUEZ on 05/12/21 0901 Last Action: New Order Losartan Potassium 25 Mg Tablet, 25 MG PO DAILY Prescribed by: ALEXI ARAIZA on 05/10/21 1213 Metoprolol Succinate 100 Mg Tab.er.24h, 100 MG PO DAILY Prescribed by: ALEXI ARAIZA on 05/10/21 1213 Rivaroxaban 20 Mg Tablet, 20 MG PO DAILY, (Reported) LAST FILLED 10-16-2019 #90/90 DAY SUPPLY Sulfamethoxazole/Trimethoprim 1 Each Tablet, 1 EACH PO BID Prescribed by: ALBIN BOJORQUEZ on 05/12/21 0900 Last Action: New Order Patient Home Medication List Home Medication List Reviewed: Yes Review of Systems Review of Systems Constitutional: no symptoms reported EENTM: no symptoms reported Respiratory: no symptoms reported Cardiovascular: see HPI Gastrointestinal: see HPI Genitourinary: no symptoms reported Musculoskeletal: no symptoms reported Skin: see HPI Psychiatric/Neurological: No Symptoms Reported Hematologic/Lymphatic: No Symptoms Reported Immunological/Allergic: no symptoms reported Past Vywbxgz-Pnyukg-Bzkjhd Hx Patient Social History Tobacco Use?: Yes Tobacco type used: Cigarettes Smoking Status: Current Everyday Smoker Use of E-Cig and/or Vaping dev: No Substance use?: Yes Substance type: Methamphetamine, Marijuana Substance frequency: Couple times a week Alcohol Use?: No Pt feels they are or have been: No Immunizations Up To Date Tetanus Booster (TDap): Unknown Influenza Vaccine Up-to-Date: No; Not Current Past Medical History Surgery/Hospitalization HX: Appendix Surgeries: Yes (HERNIA REPAIR) Abdominal, Appendectomy Respiratory: No Cardiac: Yes (CHF 30-35% EF) Atrial Fibrillation, Cardiomyopathy, High Cholesterol, Hypertension Neurological: No Genitourinary: No Gastrointestinal: Yes Gastroesophageal Reflux Musculoskeletal: No Endocrine: Yes (OBESITY) HEENT: No Cancer: No Psychosocial: Yes (SUBSTANCE ABUSE) Integumentary: Yes (TATTOOS) Blood Disorders: No Family Medical History No Pertinent Family Hx SOCIAL HISTORY: -ETOH--REGULAR USE -DRUGS--METHAMPHETAMINES -SMOKES 1 PPD PAST SURGICAL HISTORY: -APPENDECTOMY -HERNIA REPAIR -CARDIOVERSIONS ECHOCARDIOGRAM 11/13/20--EF 30-35%, NO REGIONAL WALL MOTION ABNORMALITIES. EXTREME NON-COMPLIANCE IN ALL ASPECTS OF CARE Physical Exam Vital Signs Vital Signs - First Documented 05/12/21 01:37 Temp 37.0 Pulse 112 Resp 20 B/P (MAP) 135/93 (107) Pulse Ox 97 O2 Delivery Room Air Capillary Refill : Less Than 3 Seconds Height, Weight, BMI Height: '" Weight: lbs. oz. kg; 31.00 BMI Method: General Appearance: No Apparent Distress, WD/WN HEENT: Normal ENT Inspection Neck: Normal Inspection Respiratory: Lungs Clear, Normal Breath Sounds, No Accessory Muscle Use Cardiovascular: No Edema, No Murmur, Irregularly Irregular, Tachycardia Gastrointestinal: Normal Bowel Sounds, Soft, Other (Patch of tender induration on the right lower abdomen) Extremity: Other (Erythematous warm skin on the thighs, particularly the medial aspect bilaterally that is warm and tender to the touch.) Neurologic/Psychiatric: Alert, Oriented x3, No Motor/Sensory Deficits, Normal Mood/Affect Skin: Warm/Dry, Rash (Scattered rash previously seen has improved, but the erythema, warmth, and swelling of the thighs seems to have progressed slightly.) Procedures/Interventions Date of ETT Placement: Feb 01, 2021 Progress/Results/Core Measures Suspected Sepsis SIRS Temperature: Pulse: 112 Respiratory Rate: 20 Blood Pressure 135 /93 Mean: 107 Results/Orders My Orders Orders - SILVIA MACHADO MD Clindamycin Injection (Cleocin Injection (05/12/21 02:45) Sulfamethoxazole/Trimet Ds Tab (Bactrim (05/12/21 02:45) Clindamycin Injection (Cleocin Injection (05/12/21 02:47) Hydrocodone/Apap 5/325 Tablet (Lortab 5 (05/12/21 03:45) Medications Given in ED Vital Signs/I&O 05/12/21 05/12/21 01:37 04:09 Temp 37.0 Pulse 112 79 Resp 20 20 B/P (MAP) 135/93 (107) 122/103 Pulse Ox 97 98 O2 Delivery Room Air Room Air Capillary Refill : Less Than 3 Seconds Blood Pressure Mean: 107 Progress Note : Progress Note Patient is being treated for cellulitis. An injection of clindamycin 600 mg was given IM along with an oral dose of Bactrim. Hydrocodone was given for pain. Bedside ultrasound of the right lower abdominal wall showed edematous layering in the subcutaneous tissue but no discrete abscess formation. Departure Impression Primary Impression: Cellulitis of lower extremity Qualified Codes: L03.119 - Cellulitis of unspecified part of limb Additional Impression: Cellulitis, abdominal wall Disposition: HOME, SELF-CARE Condition: Improved Departure-Patient Inst. Decision time for Depature: 03:55 Referrals: [facility] (PCP/Family) Primary Care Physician Patient Instructions: Cellulitis (Skin Infection), Adult (DC) Add. Discharge Instructions: Complete clindamycin and Bactrim as prescribed instead of doxycycline. Follow-up with your primary care provider next week. Call with questions or concerns. Return to the ER if you have worsening symptoms. Take hydrocodone as prescribed for the pain. All discharge instructions reviewed with patient and/or family. Voiced understanding. Scripts Hydrocodone/Acetaminophen (Hydrocodone-Acetamin 5-325 mg) 1 Each Tablet 1 TAB PO Q4H PRN for PAIN-MODERATE (5-7), #8 TAB Prov: ALBIN BOJORQUEZ 05/12/21 Sulfamethoxazole/Trimethoprim (Bactrim Ds Tablet) 1 Each Tablet 1 EACH PO BID, #20 TAB Prov: ALBIN BOJORQUEZ 05/12/21 Clindamycin HCl (Clindamycin HCl) 300 Mg Capsule 300 MG PO QID, #40 CAP Prov: ALBIN BOJORQUEZ 05/12/21 Copy Copies To 1: ESTEPHANIA GUTIERREZ JOSHUA T MD May 12, 2021 04:00
[2021-05-12 04:09] VITALS: BP 122/103
== END 2021-05-12 04:05 | disposition home or self-care (01) ==
LOC: EDUNIT# 01:16 → ER 01:19
DX: L03.119 Cellulitis of unspecified part of limb (principal); L03.311 Cellulitis of abdominal wall; E66.9 Obesity, unspecified; I11.0 Hypertensive heart disease with heart failure; I50.9 Heart failure, unspecified; F17.210 Nicotine dependence, cigarettes, uncomplicated; Z68.31 Body mass index [BMI] 31.0-31.9, adult; Z79.01 Long term (current) use of anticoagulants; Z79.899 Other long term (current) drug therapy
CPT/HCPCS: 99284

== ENCOUNTER 2021-07-09 15:53 | Inpatient (IN) | payer SELFPAY ==
[~2021-07-09] VITALS: Ht 180 cm; Wt 97.3 kg
[~2021-07-09 15:53] MED LIST changes: +CLIN300C12 PO; -DOXY100C2 PO; +DOXY100C5 PO; +SULF1TAB38 PO
[2021-07-09] MEDS ORDERED: ASPIRIN 81 MG CHEW (CHILDREN'S ASA) PO ONE (16:15)
[2021-07-09] MEDS ORDERED: dilTIAZem DRIP PRE-MIX 125 ML IV SCH (16:15)
[2021-07-09 16:19] LABS: BASOPHILS % (AUTO) 0 % (0-10); EOSINOPHILS % (AUTO) 0 % (0-10); HEMATOCRIT 42 % (40-54); HEMOGLOBIN 13.3 g/dL (13.3-17.7); LYMPHOCYTES # (AUTO) 0.6 10^3/uL (1.0-4.0); LYMPHOCYTES % (AUTO) 4 % (12-44); MEAN CORPUSCULAR HEMOGLOBIN 28 pg (25-34); MEAN CORPUSCULAR HGB CONC 31 g/dL (32-36); MEAN CORPUSCULAR VOLUME 88 fL (80-99); MEAN PLATELET VOLUME 10.7 fL (9.0-12.2); MONOCYTES # (AUTO) 0.8 10^3/uL (0.0-1.0); MONOCYTES % (AUTO) 5 % (0-12); NEUTROPHILS # (AUTO) 15.2 10^3/uL (1.8-7.8); NEUTROPHILS % (AUTO) 91 % (42-75); PLATELET COUNT 367 10^3/uL (130-400); WHITE BLOOD COUNT 16.7 10^3/uL (4.3-11.0)
--- NOTE | 2021-07-09 16:20 | ED General ---
General Stated Complaint: CHEST PAIN Source of Information: Patient Exam Limitations: No Limitations History of Present Illness Date Seen by Provider: Jul 09, 2021 Time Seen by Provider: 16:00 Initial Comments To ER with reports of a syncopal event outside of a gas station. He states that he was at [facility] last night given Lasix and diagnosed with infection and several skin wounds. History of CHF with noncompliance to medication regimen. He uses methamphetamine. Timing/Duration: 1-2 Days Severity: Moderate Associated Systoms: Cough Allergies and Home Medications Allergies Coded Allergies: Penicillins (Verified Allergy, Unknown, 11/09/20) Patient Home Medication List Home Medication List Reviewed: Yes Clindamycin HCl (Clindamycin HCl) 300 Mg Capsule, 300 MG PO QID Prescribed by: ALBIN BOJORQUEZ on 05/12/21 09 Diphenhydramine HCl (Benadryl Allergy) 25 Mg Tablet, 25-50 MG PO Q6H PRN for ITCHING AND RASH, (Reported) Entered as Reported by: KLAUDIA OTTO on 05/08/21 110 Doxycycline Hyclate (Doxycycline Hyclate) 100 Mg Capsule, 100 MG PO BID Prescribed by: ALEXI ARAIZA on 05/10/21 1224 Furosemide (Furosemide) 40 Mg Tablet, 40 MG PO DAILY Prescribed by: ALEXI ARAIZA on 05/10/21 1213 Hydrocodone/Acetaminophen (Hydrocodone-Acetamin 5-325 mg) 1 Each Tablet, 1 TAB PO Q4H PRN for PAIN-MODERATE (5-7) Prescribed by: ALBIN BOJORQUEZ on 05/12/21 0901 Losartan Potassium (Losartan Potassium) 25 Mg Tablet, 25 MG PO DAILY Prescribed by: ALEXI ARAIZA on 05/10/21 1213 Metoprolol Succinate (Metoprolol Succinate) 100 Mg Tab.er.24h, 100 MG PO DAILY Prescribed by: ALEXI ARAIZA on 05/10/21 121 Rivaroxaban (Xarelto Tablet) 20 Mg Tablet, 20 MG PO DAILY, (Reported) Entered as Reported by: KLAUDIA OTTO on 05/08/21 1103 Sulfamethoxazole/Trimethoprim (Bactrim Ds Tablet) 1 Each Tablet, 1 EACH PO BID Prescribed by: ALBIN BOJORQUEZ on 05/12/21 0900 Review of Systems Review of Systems Constitutional: see HPI EENTM: see HPI Respiratory: no symptoms reported Cardiovascular: no symptoms reported Genitourinary: no symptoms reported Musculoskeletal: no symptoms reported Skin: no symptoms reported Psychiatric/Neurological: No Symptoms Reported Hematologic/Lymphatic: No Symptoms Reported Immunological/Allergic: no symptoms reported Past Lvagpmu-Xqdgxx-Rojscz Hx Immunizations Up To Date Tetanus Booster (TDap): Unknown Past Medical History Surgery/Hospitalization HX: Appendix Surgeries: Yes (HERNIA REPAIR) Abdominal, Appendectomy Respiratory: No Cardiac: Yes (CHF 30-35% EF) Atrial Fibrillation, Cardiomyopathy, High Cholesterol, Hypertension Neurological: No Genitourinary: No Gastrointestinal: Yes Gastroesophageal Reflux Musculoskeletal: No Endocrine: Yes (OBESITY) HEENT: No Cancer: No Psychosocial: Yes (SUBSTANCE ABUSE) Integumentary: Yes (TATTOOS) Blood Disorders: No Family Medical History No Pertinent Family Hx SOCIAL HISTORY: -ETOH--REGULAR USE -DRUGS--METHAMPHETAMINES -SMOKES 1 PPD PAST SURGICAL HISTORY: -APPENDECTOMY -HERNIA REPAIR -CARDIOVERSIONS ECHOCARDIOGRAM 11/13/20--EF 30-35%, NO REGIONAL WALL MOTION ABNORMALITIES. EXTREME NON-COMPLIANCE IN ALL ASPECTS OF CARE Physical Exam Vital Signs Vital Signs - First Documented 07/09/21 15:53 Temp 36.6 Pulse 128 Resp 16 B/P (MAP) 124/102 (109) Pulse Ox 97 O2 Delivery Room Air Capillary Refill : Height, Weight, BMI Height: '" Weight: lbs. oz. kg; 31.00 BMI Method: General Appearance: No Apparent Distress, WD/WN Eyes: Bilateral Eye Normal Inspection, Bilateral Eye PERRL, Bilateral Eye EOMI HEENT: PERRL/EOMI, TMs Normal Neck: Full Range of Motion, Normal Inspection, Other (Jugular vein distention bilaterally) Respiratory: No Accessory Muscle Use, No Respiratory Distress Cardiovascular: Tachycardia (Irregularly irregular heart rate of 123 A. fib) Gastrointestinal: Normal Bowel Sounds, Non Tender, Soft Extremity: Normal Capillary Refill, Normal Inspection Neurologic/Psychiatric: Alert, Oriented x3 Skin: Normal Color, Warm/Dry Procedures/Interventions Date of ETT Placement: Feb 01, 2021 Progress/Results/Core Measures Suspected Sepsis SIRS Temperature: Pulse: Respiratory Rate: Laboratory Tests 07/09/21 16:08: White Blood Count 16.7H Blood Pressure / Mean: Laboratory Tests 07/09/21 16:08: Creatinine 0.97, INR Comment 1.3, Platelet Count 367, Total Bilirubin 1.4H Results/Orders Lab Results Laboratory Tests Test 07/09/21 16:08 07/09/21 16:18 Range/Units White Blood Count 16.7 H 4.3-11.0 10^3/uL Red Blood Count 4.81 4.30-5.52 10^6/uL Hemoglobin 13.3 13.3-17.7 g/dL Hematocrit 42 40-54 % Mean Corpuscular Volume 88 80-99 fL Mean Corpuscular Hemoglobin 28 25-34 pg Mean Corpuscular Hemoglobin Concent 31 L 32-36 g/dL Red Cell Distribution Width 18.2 H 10.0-14.5 % Platelet Count 367 130-400 10^3/uL Mean Platelet Volume 10.7 9.0-12.2 fL Immature Granulocyte % (Auto) 1 % Neutrophils (%) (Auto) 91 H 42-75 % Lymphocytes (%) (Auto) 4 L 12-44 % Monocytes (%) (Auto) 5 0-12 % Eosinophils (%) (Auto) 0 0-10 % Basophils (%) (Auto) 0 0-10 % Neutrophils # (Auto) 15.2 H 1.8-7.8 10^3/uL Lymphocytes # (Auto) 0.6 L 1.0-4.0 10^3/uL Monocytes # (Auto) 0.8 0.0-1.0 10^3/uL Eosinophils # (Auto) 0.0 0.0-0.3 10^3/uL Basophils # (Auto) 0.0 0.0-0.1 10^3/uL Immature Granulocyte # (Auto) 0.1 0.0-0.1 10^3/uL Prothrombin Time 16.7 H 12.2-14.7 SEC INR Comment 1.3 0.8-1.4 Activated Partial Thromboplast Time 26 24-35 SEC Sodium Level 135 135-145 MMOL/L Potassium Level 4.5 3.6-5.0 MMOL/L Chloride Level 104 98-107 MMOL/L Carbon Dioxide Level 20 L 21-32 MMOL/L Anion Gap 11 5-14 MMOL/L Blood Urea Nitrogen 21 H 7-18 MG/DL Creatinine 0.97 0.60-1.30 MG/DL Estimat Glomerular Filtration Rate 85 BUN/Creatinine Ratio 22 Glucose Level 176 H 70-105 MG/DL Calcium Level 9.2 8.5-10.1 MG/DL Corrected Calcium 9.9 8.5-10.1 MG/DL Magnesium Level 1.5 L 1.6-2.4 MG/DL Total Bilirubin 1.4 H 0.1-1.0 MG/DL Aspartate Amino Transf (AST/SGOT) 41 H 5-34 U/L Alanine Aminotransferase (ALT/SGPT) 42 0-55 U/L Alkaline Phosphatase 144 H 40-136 U/L Myoglobin 124.0 H 10.0-92.0 NG/ML B-Type Natriuretic Peptide 3064.9 H <100.0 PG/ML Total Protein 6.6 6.4-8.2 GM/DL Albumin 3.1 L 3.2-4.5 GM/DL SARS-CoV-2 RNA (RT-PCR) Not Detected Not Detecte Troponin I < 0.028 <0.028 NG/ML Digoxin Level < 0.30 L 0.80-2.00 NG/ML My Orders Orders - SOFÍA ECHEVARRIA APRN Cbc With Automated Diff (07/09/21 16:03) Magnesium (07/09/21 16:03) Chest 1 View, Ap/Pa Only (07/09/21 16:03) Ekg Tracing (07/09/21 16:03) Comprehensive Metabolic Panel (07/09/21 16:03) Myoglobin Serum (07/09/21 16:03) Protime With Inr (07/09/21 16:03) Partial Thromboplastin Time (07/09/21 16:03) O2 (07/09/21 16:03) Monitor-Rhythm Ecg Trace Only (07/09/21 16:03) Lipid Panel (07/10/21 06:00) Ed Iv/Invasive Line Start (07/09/21 16:03) BNP (07/09/21 16:03) Troponin I (07/09/21 16:03) Aspirin Chewable Tablet (Baby Aspirin Ch (07/09/21 16:15) Digoxin (07/09/21 16:05) Covid 19 Inhouse Test (07/09/21 16:05) Diltiazem Injection (Cardizem Injection) (07/09/21 16:15) Diltiazem Drip Pre-Mix (Cardizem Drip Pr (07/09/21 16:15) Lorazepam Injection (Ativan Injection) (07/09/21 16:30) Ua Culture If Indicated (07/09/21 16:32) Drug Screen Stat (Urine) (07/09/21 16:32) Manual Differential (07/09/21 16:08) Medications Given in ED Current Medications Medications Dose Ordered Sig/[place] Route Start Time Stop Time Status Last Admin Dose Admin Aspirin 324 mg ONCE ONCE PO 07/09/21 16:15 07/09/21 16:16 DC 07/09/21 16:44 324 MG Diltiazem HCl 10 mg ONCE ONCE IVP 07/09/21 16:15 07/09/21 16:16 DC 07/09/21 16:42 10 MG Lorazepam 1 mg ONCE ONCE IVP 07/09/21 16:30 07/09/21 16:31 DC 07/09/21 16:41 1 MG Vital Signs/I&O 07/09/21 15:53 Temp 36.6 Pulse 128 Resp 16 B/P (MAP) 124/102 (109) Pulse Ox 97 O2 Delivery Room Air Capillary Refill : Diagnostic Imaging Diagonstic Imaging: Xray Comments NAME: PAL VALERIO [facility] REC#: [id number] PT STATUS: REG ER : 1980 PHYSICIAN: SOFÍA ECHEVARRIA APRN ADMIT DATE: 07/09/21/ER Draft Date of Exam:07/09/21 CHEST 1 VIEW, AP/PA ONLY EXAMINATION: Chest 1 view HISTORY: Chest pain COMPARISON: 05/08/2021 FINDINGS: There are patchy bilateral airspace opacities, left greater than right. No pleural effusion or pneumothorax. The heart size is normal. IMPRESSION: 1. Patchy bilateral airspace opacities suggestive of pneumonia. Dictated on workstation # [id number] Dict: 07/09/21 1703 Trans: 07/09/21 1704 GRICELDA [id number] Interpreted by: IBRAHIMA WHIPPLE MD Electronically signed by: Departure Impression Primary Impression: Acute on chronic systolic heart failure Additional Impression: Atrial fibrillation with RVR Disposition: ADMITTED INPATIENT Condition: Stable Admissions Decision to Admit Reason: Admit from ER (General) Decision to Admit/Date: Jul 09, 2021 Time/Decision to Admit Time: 16:49 Departure-Patient Inst. Referrals: [facility] (PCP/Family) Primary Care Physician SOFÍA ECHEVARRIA APRN Jul 09, 2021 16:20
[2021-07-09 16:26] LABS: ALBUMIN 3.1 GM/DL (3.2-4.5)
[2021-07-09 16:27] LABS: POTASSIUM 4.5 MMOL/L (3.6-5.0)
[2021-07-09 16:28] LABS: CALCIUM 9.2 MG/DL (8.5-10.1)
[2021-07-09 16:29] LABS: TOTAL PROTEIN 6.6 GM/DL (6.4-8.2)
[2021-07-09] MEDS ORDERED: LORazepam INJ 2 MG/ML (ATIVAN) VIAL IVP ONE ×2 (16:30→23:15)
[2021-07-09 16:31] LABS: BILIRUBIN,TOTAL 1.4 MG/DL (0.1-1.0)
[2021-07-09 16:33] LABS: CREATININE SERUM 0.97 MG/DL (0.60-1.30); INR 1.3 (0.8-1.4); PROTHROMBIN TIME PATIENT 16.7 SEC (12.2-14.7)
[2021-07-09 16:36] LABS: MAGNESIUM 1.5 MG/DL (1.6-2.4)
--- NOTE | 2021-07-09 17:05 | Diagnostic Imaging Report ---
EXAMINATION: Chest 1 view HISTORY: Chest pain COMPARISON: 05/08/2021 FINDINGS: There are patchy bilateral airspace opacities, left greater than right. No pleural effusion or pneumothorax. The heart size is normal. IMPRESSION: 1. Patchy bilateral airspace opacities suggestive of pneumonia. Dictated by: Dictated on workstation # [id number]
[2021-07-09] MEDS ORDERED: FUROSEMIDE 40 MG/4 ML INJ (LASIX) IVP ONE (17:45)
[2021-07-09] MEDS ORDERED: APIXABAN 5 MG (ELIQUIS) TABLET PO ONE (17:45)
[2021-07-09] MEDS ORDERED: MAGNESIUM 1 GM/100 ML IVPB 100 ML IV SCH (17:45)
[2021-07-09 17:49] LABS: HYPOCHROMASIA SLIGHT; LYMPHOCYTES % (MANUAL) 4 %; MONOCYTES % (MANUAL) 5 %; NEUTROPHILS % (MANUAL) 91 %; POLYCHROMASIA SLIGHT
[2021-07-09 18:37] LABS: BILIRUBIN,URINE NEGATIVE (NEGATIVE); CLARITY,URINE CLEAR; COLOR,URINE YELLOW; GLUCOSE, URINE (UA) NEGATIVE (NEGATIVE); KETONES,URINE NEGATIVE (NEGATIVE); LEUKOCYTE ESTERASE ,URINE NEGATIVE (NEGATIVE); NITRITE,URINE NEGATIVE (NEGATIVE); PH,URINE 5.5 (5-9); PROTEIN,URINE 1+ (NEGATIVE)
[2021-07-09 18:45] LABS: BACTERIA,URINE TRACE /HPF; HYALINE CASTS, URINE 0-2 /LPF; SQUAMOUS EPITHELIAL CELL,UR 0-2 /HPF
[2021-07-09 18:52] LABS: AMPHETAMINE SCREEN, URINE POSITIVE (NEGATIVE); BARBITURATE SCREEN URINE NEGATIVE (NEGATIVE); BENZODIAZEPINES SCREEN URINE NEGATIVE (NEGATIVE); CANNABINOID SCREEN, URINE POSITIVE (NEGATIVE); COCAINE SCREEN URINE NEGATIVE (NEGATIVE); METHADONE STAT NEGATIVE (NEGATIVE); METHAMPHETAMINE SCREEN URINE S POSITIVE (NEGATIVE); OPIATE SCREEN URINE NEGATIVE (NEGATIVE); OXYCODONE STAT NEGATIVE (NEGATIVE); PROPOXYPHENE STAT NEGATIVE (NEGATIVE); TRICYCLIC ANTIDEPRESSANTS SCRE NEGATIVE (NEGATIVE)
[2021-07-09] MEDS ORDERED: CATHETER FLUSH 10 ML SYR IV PRN (19:45)
--- NOTE | 2021-07-09 19:59 | Tele-ICU Consult ---
History of Present Illness History of Present Illness Date Seen by Provider: Jul 09, 2021 Time Seen by Provider: 19:54 History of Present Illness 41 yo M admitted for syncope, sepsis, had syncopal episode at [facility], went to local ED, given Lasix, has WBC 16, started on IV doxycycline/Rocephin Also Hx of CPM and a fib, on IV cardizem/apixiban UDS + amphetamines, pt self injects and has infected looking areas I do not see report of echo CXR shows mild increase in HS, no congestion or PNA Allergies and Home Medications Allergies Coded Allergies: Penicillins (Verified Allergy, Unknown, 11/09/20) Home Medications Clindamycin HCl 300 Mg Capsule, 300 MG PO QID Prescribed by: ALBIN BOJORQUEZ on 05/12/21 0900 Diphenhydramine HCl 25 Mg Tablet, 25-50 MG PO Q6H PRN for ITCHING AND RASH, (Reported) Doxycycline Hyclate 100 Mg Capsule, 100 MG PO BID Prescribed by: ALEXI ARAIZA on 05/10/21 1224 Furosemide 40 Mg Tablet, 40 MG PO DAILY Prescribed by: ALEXI ARAIZA on 05/10/21 1213 Hydrocodone/Acetaminophen 1 Each Tablet, 1 TAB PO Q4H PRN for PAIN-MODERATE (5- 7) Prescribed by: ALBIN BOJORQUEZ on 05/12/21 0901 Losartan Potassium 25 Mg Tablet, 25 MG PO DAILY Prescribed by: ALEXI ARAIZA on 05/10/21 1213 Metoprolol Succinate 100 Mg Tab.er.24h, 100 MG PO DAILY Prescribed by: ALEXI ARAIZA on 05/10/21 1213 Rivaroxaban 20 Mg Tablet, 20 MG PO DAILY, (Reported) LAST FILLED 10-16-2019 #90/90 DAY SUPPLY Sulfamethoxazole/Trimethoprim 1 Each Tablet, 1 EACH PO BID Prescribed by: ALBIN BOJORQUEZ on 05/12/21 0900 Past Medical/Social/Family Hx Patient Social History Smoking Status: Current Everyday Smoker Substance use?: Yes Substance type: Methamphetamine, Marijuana Alcohol Use?: Yes Alcohol Frequency: Couple times a week Immunizations Up To Date Tetanus Booster (TDap): Less Than 5 Years Hepatitis A: No Hepatitis B: No TB Skin Test: None Current Status Advance Directives: No Primary Language: Romanian Preferred Spoken Language: Romanian Past Medical History AF Meth use Family Medical History Family Hx: SOCIAL HISTORY: -ETOH--REGULAR USE -DRUGS--METHAMPHETAMINES -SMOKES 1 PPD PAST SURGICAL HISTORY: -APPENDECTOMY -HERNIA REPAIR -CARDIOVERSIONS ECHOCARDIOGRAM 11/13/20--EF 30-35%, NO REGIONAL WALL MOTION ABNORMALITIES. EXTREME NON-COMPLIANCE IN ALL ASPECTS OF CARE Review of Systems Constitutional: other (agitated) Psychiatric/Neurological: Anxiety Sepsis Event Evaluation Height, Weight, BMI Height: '" Weight: lbs. oz. kg; 31.00 BMI Method: Exam Exam Patient acknowledged, consented, and participated in this virtual visit which was conducted using real time audio/video Vital Signs Date Time Temp Pulse Resp B/P (MAP) Pulse Ox O2 Delivery O2 Flow Rate FiO2 07/09/21 19:20 142 18 123/87 92 Room Air 07/09/21 15:53 36.6 128 16 124/102 (109) 92 Room Air Height & Weight Height: '" Weight: lbs. oz. kg; 31.00 BMI Method: General Appearance: No Apparent Distress, WD/WN, Anxious HEENT: PERRL/EOMI, TMs Normal Neck: Full Range of Motion, Normal Inspection, Other (Jugular vein distention bilaterally) Respiratory: No Accessory Muscle Use, No Respiratory Distress Cardiovascular: Irregularly Irregular, Tachycardia (Irregularly irregular heart rate of 123 A. fib) Gastrointestinal: normal bowel sounds, non tender Extremity: Normal Capillary Refill, Normal Inspection, No Pedal Edema Neurologic/Psychiatric: Alert, Oriented x3 Skin: Normal Color, Warm/Dry Results Lab Laboratory Tests 07/09/21 16:08 Assessment/Plan Assessment/Plan sounds like in withdrawal from amphetamines, will give 1 mg IV Ativan and repeat if needed already on IV Cardizem, Carvedilol, Critical Care: Critically Ill Patient Time spent with patient (mins): 20 CHAVA BARRETT MD Jul 09, 2021 19:59
[2021-07-09] MEDS ORDERED: APIXABAN 5 MG (ELIQUIS) TABLET PO SCH (21:00)
[2021-07-09] MEDS: DOXYCYCLINE INJECTION 100 MG in NS (IVPB) 100 ML IV SCH (21:28)
[2021-07-09] MEDS: cefTRIAXone 1,000 MG/SWFI 10 ML IV PUSH IV SCH ×2 (21:28)
[2021-07-09] MEDS: MAGNESIUM 1 GM/D5W 100 ML IVPB IV SCH ×3 (21:28→23:35)
[2021-07-09] MEDS: lisINopril 20 MG (PRINIVIL) TABLET PO SCH (21:28)
[2021-07-09] MEDS: LORazepam INJ 2 MG/ML (ATIVAN) VIAL IV PRN (21:30)
[2021-07-09] MEDS: dilTIAZem DRIP PRE-MIX 125 ML IV SCH (22:10)
[2021-07-09] MEDS: CATHETER FLUSH 10 ML SYR IV SCH (22:10)
[2021-07-10 00:32] VITALS: BP 134/101
[2021-07-10] MEDS ORDERED: RT-ALBUTEROL/IPRATROPIUM 3 ML (DUONEB) VIAL INH PRN (00:45)
--- NOTE | 2021-07-10 02:14 | Progress Note ---
Standard Progress Note Progress Notes/Assess & Plan Date Seen by a Provider: Jul 10, 2021 Time Seen by a Provider: 02:12 Progress/Assessment & Plan called byRN, in a fib with V arate still high 130-160, On IV Cardizem drip @ 15 mg/h will give 2.5 mg IV metoprolol over 2-3 min CHAVA BARRETT MD Jul 10, 2021 02:14
[2021-07-10] MEDS ORDERED: meTOprolol 5 MG/5 ML (LOPRESSOR) VIAL IV ONE (02:15)
[2021-07-10] MEDS ORDERED: meTOprolol 5 MG/5 ML (LOPRESSOR) VIAL ONE (02:15)
[2021-07-10] MEDS: dilTIAZem DRIP PRE-MIX 125 ML IV SCH ×3 (02:20→18:34)
[2021-07-10] MEDS: CATHETER FLUSH 10 ML SYR IV SCH ×3 (03:52→22:15)
[2021-07-10] MEDS: LORazepam INJ 2 MG/ML (ATIVAN) VIAL IV PRN ×3 (04:04→22:15)
[2021-07-10 04:59] LABS: BASOPHILS % (AUTO) 0 % (0-10); EOSINOPHILS % (AUTO) 0 % (0-10); HEMATOCRIT 44 % (40-54); HEMOGLOBIN 13.7 g/dL (13.3-17.7); LYMPHOCYTES # (AUTO) 0.7 10^3/uL (1.0-4.0); LYMPHOCYTES % (AUTO) 3 % (12-44); MEAN CORPUSCULAR HEMOGLOBIN 28 pg (25-34); MEAN CORPUSCULAR HGB CONC 31 g/dL (32-36); MEAN CORPUSCULAR VOLUME 89 fL (80-99); MEAN PLATELET VOLUME 10.8 fL (9.0-12.2); MONOCYTES # (AUTO) 1.5 10^3/uL (0.0-1.0); MONOCYTES % (AUTO) 7 % (0-12); NEUTROPHILS # (AUTO) 20.3 10^3/uL (1.8-7.8); NEUTROPHILS % (AUTO) 89 % (42-75); PLATELET COUNT 381 10^3/uL (130-400); WHITE BLOOD COUNT 22.7 10^3/uL (4.3-11.0)
[2021-07-10 05:22] LABS: POTASSIUM 4.3 MMOL/L (3.6-5.0)
[2021-07-10 05:23] LABS: ALBUMIN 3.3 GM/DL (3.2-4.5); CALCIUM 9.3 MG/DL (8.5-10.1)
[2021-07-10 05:25] LABS: TOTAL PROTEIN 6.9 GM/DL (6.4-8.2)
[2021-07-10 05:27] LABS: BILIRUBIN,TOTAL 1.1 MG/DL (0.1-1.0)
[2021-07-10] MEDS: FUROSEMIDE 40 MG/4 ML INJ (LASIX) IV SCH ×2 (05:27→17:27)
[2021-07-10 05:28] LABS: PHOSPHORUS 3.5 MG/DL (2.3-4.7)
[2021-07-10 05:29] LABS: CREATININE SERUM 0.89 MG/DL (0.60-1.30)
[2021-07-10 05:31] LABS: MAGNESIUM 2.2 MG/DL (1.6-2.4)
--- NOTE | 2021-07-10 07:58 | Consultation-Cardiology ---
HPI-Cardiology Cardiology Consultation: Date of Consultation 07/10/21 Time Seen by a Provider: 08:15 Date of Admission 07-09-21 Attending Physician Meghana Abebe MD Admitting Physician [place] Consulting Physician Jeannette Bejarano MD HPI: Chief Complaint: A-fib with RVR Acute on chronic systolic CHF Mr. Valerio is a 41 yr old male admitted to ICU 9 from the ED. His mental status is obtunded this morning and HPI can not be obtained from the pt. ED records reviewed show he was found following a syncopal episode outside of a gas station. Review of Systems-Cardiology Review of Systems Other comments Unable to obtain d/t obtunded mental status XQT-Ckakzy-Etylfd Hx Patient Social History Smoking Status: Current Everyday Smoker 2nd Hand Smoke Exposure: Yes Have you traveled recently?: No Alcohol Use?: Yes Substance type: Methamphetamine, Marijuana Immunizations Up To Date Tetanus Booster (TDap): Unknown Date of Influenza Vaccine: Aug 09, 2020 Past Medical History PMH As described under Assessment. Family Medical History Family Medical History: He states his father of heart failure in his 50s and he had a brother who of cardiomyopathy in his 40s. (per previous visit) Allergies and Home Medications Allergies Coded Allergies: Penicillins (Verified Allergy, Unknown, 11/09/20) Patient Home Medication List No Active Prescriptions or Reported Meds Physical Exam-Cardiology Physical Exam Vital Signs/I&O 07/13/21 07/13/21 07/13/21 07/13/21 00:52 01:00 04:00 06:37 Temp 36.9 36.1 Pulse 112 80 95 86 Resp 18 20 B/P (MAP) 114/78 114/78 Pulse Ox 92 96 O2 Delivery Room Air Room Air 07/13/21 07/13/21 07:54 08:00 Temp 36.2 Pulse 82 Resp 26 B/P (MAP) 118/94 Pulse Ox 95 O2 Delivery Room Air Room Air 07/13/21 00:00 Intake Total 2715 ml Output Total 4775 ml Balance -2060 ml Capillary Refill : Less Than 3 Seconds Constitutional: other (obtunded mental status; opens eyes to verbal and tactile stimuli; does not answer any questions) Respiratory: chest expansion is symmetric, chest is bilaterally symmetric, rhonchi (scattered), other (coarse breath sounds) Cardiovascular: irregularly irregular, tachycardia, S1 and S2 Gastrointestinal: soft, audible bowel sounds Extremities: other (bilat pitting LE swelling) Neurologic/Psychiatric: other (see above) Skin: No rash on exposed areas, No ulcerations on exposed areas Data Review Labs Laboratory Tests 07/13/21 05:10: White Blood Count 11.6H, Red Blood Count 5.49, Hemoglobin 15.0, Hematocrit 48, Mean Corpuscular Volume 87, Mean Corpuscular Hemoglobin 27, Mean Corpuscular H emoglobin Concent 31L, Red Cell Distribution Width 18.4H, Platelet Count 342, Mean Platelet Volume 9.7, Immature Granulocyte % (Auto) 1, Neutrophils (%) (Auto) 69, Lymphocytes (%) (Auto) 16, Monocytes (%) (Auto) 9, Eosinophils (%) (Auto) 5, Basophils (%) (Auto) 0, Neutrophils # (Auto) 8.0H, Lymphocytes # (Auto) 1.9, Monocytes # (Auto) 1.1H, Eosinophils # (Auto) 0.6H, Basophils # (Auto) 0.1, Immature Granulocyte # (Auto) 0.1, Sodium Level 135, Potassium Level 4.1, Chloride Level 98, Carbon Dioxide Level 27, Anion Gap 10, Blood Urea Nitrogen 19H, Creatinine 0.86, Estimat Glomerular Filtration Rate 98, BUN/Creatinine Ratio 22, Glucose Level 106H, Calcium Level 9.7, Corrected Calcium 10.5H, Phosphorus Level 4.3, Magnesium Level 1.7, Total Bilirubin 1.1H, Aspartate Amino Transf (AST/SGOT) 32, Alanine Aminotransferase (ALT/SGPT) 32, Alkaline Phosphatase 181H, Total Protein 6.6, Albumin 3.0L Radiology NAME: PAL VALERIO [facility] REC#: [id number] PT STATUS: REG ER : 1980 PHYSICIAN: SOFÍA ECHEVARRIA APRN ADMIT DATE: 07/09/21/ER Signed Date of Exam:07/09/21 CHEST 1 VIEW, AP/PA ONLY EXAMINATION: Chest 1 view HISTORY: Chest pain COMPARISON: 05/08/2021 FINDINGS: There are patchy bilateral airspace opacities, left greater than right. No pleural effusion or pneumothorax. The heart size is normal. IMPRESSION: 1. Patchy bilateral airspace opacities suggestive of pneumonia. Dictated by: Dictated on workstation # [id number] Dict: 07/09/21 1703 Trans: 07/09/21 180 GRICELDA [id number] Interpreted by: IBRAHIMA WHIPPLE MD Electronically signed by: IBRAHIMA WHIPPLE MD 07/09/21 1804 ECG Impression ECG Initial ECG Impression: Atrial Fibrillation w/RVR A/P-Cardiology Assessment/Admission Diagnosis Pneumonia - management per medical services Paroxysmal atrial fibrillation with RVR - h/o PAF - Cardizem gtt - Eliquis for stroke prophylaxis - PHILLIP was done on March 28, [address] Hernandez showing questionable left atrial appendage thrombus. No cardioversion was recommended - continue medication regimen NICM Acute on chronic systolic CHF - PHILLIP of 03-28-[address] Hernandez showed LVEF 40-45%. 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) - cessation advised Tobaccoism - cessation advised Obtunded mental status - likely secondary to hypoxia Noncompliance with medication, educated in length about compliance with medications Discussion and Recomendations Complex management issue d/t continued non-compliance and continued methamphetamine use D/t obtunded mental status we will change his medication regimen to parental until he becomes more alert IV Lopressor to help with rate control Continue IV cardizem Start IV Dig for rate control Change Eliquis to Lovenox for now Management of pneumonia is per medical services Monitor lab closely Further recs will be based on his hospital course We would like to thank medical services for this consult ANN RHOADES Jul 10, 2021 07:58
[2021-07-10] MEDS ORDERED: DIGOXIN 0.25 MG/ML (LANOXIN) 2 ML AMP IV ONE ×2 (08:30→10:30)
[2021-07-10] MEDS: DOXYCYCLINE INJECTION 100 MG in NS (IVPB) 100 ML IV SCH ×2 (08:52→20:01)
[2021-07-10] MEDS: KCL 20 MEQ TAB (K-DUR) PO SCH ×3 (08:54→17:30)
[2021-07-10] MEDS ORDERED: APIXABAN 5 MG (ELIQUIS) TABLET PO SCH (09:00)
[2021-07-10] MEDS: ENOXAPARIN 100 MG/1 ML (LOVENOX) SYR SC SCH ×2 (09:01→20:00)
[2021-07-10] MEDS: meTOprolol 5 MG/5 ML (LOPRESSOR) VIAL IV SCH ×6 (09:02→23:51)
[2021-07-10] MEDS: lisINopril 20 MG (PRINIVIL) TABLET PO SCH ×2 (09:28→20:01)
--- NOTE | 2021-07-10 10:06 | Consultation-Cardiology ---
HPI-Cardiology Cardiology Consultation: Date of Consultation 07/10/21 Time Seen by a Provider: 08:30 Date of Admission Attending Physician Meghana Abebe MD Admitting Physician [place]/[facility] Consulting Physician SAVI SILVA MD, FACP, [facility] HPI: Chief Complaint: A-fib with RVR Acute on chronic systolic CHF Mr. Alexander is a 41 yr old male admitted to ICU 9 from the ED. His mental status is obtunded this morning and HPI can not be obtained from the pt. ED records reviewed show he was found following a syncopal episode outside of a gas station. VIS-Tijshu-Gtxuru Hx Patient Social History Smoking Status: Current Everyday Smoker 2nd Hand Smoke Exposure: Yes Have you traveled recently?: No Alcohol Use?: Yes Substance type: Methamphetamine, Marijuana Immunizations Up To Date Tetanus Booster (TDap): Unknown Date of Influenza Vaccine: Aug 09, 2020 Past Medical History PMH As described under Assessment. Family Medical History Family Medical History: He states his father of heart failure in his 50s and he had a brother who of cardiomyopathy in his 40s. (per previous visit) Allergies and Home Medications Allergies Coded Allergies: Penicillins (Verified Allergy, Unknown, 11/09/20) Patient Home Medication List Home Medication List Reviewed: Yes Clindamycin HCl (Clindamycin HCl) 300 Mg Capsule, 300 MG PO QID Prescribed by: ALBIN BOJORQUEZ on 05/12/21 0900 Diphenhydramine HCl (Benadryl Allergy) 25 Mg Tablet, 25-50 MG PO Q6H PRN for ITCHING AND RASH, (Reported) Entered as Reported by: KLAUDIA OTTO on 05/08/21 1103 Doxycycline Hyclate (Doxycycline Hyclate) 100 Mg Capsule, 100 MG PO BID Prescribed by: ALEXI ARAIZA on 05/10/21 1224 Furosemide (Furosemide) 40 Mg Tablet, 40 MG PO DAILY Prescribed by: ALEXI ARAIZA on 05/10/21 1213 Hydrocodone/Acetaminophen (Hydrocodone-Acetamin 5-325 mg) 1 Each Tablet, 1 TAB PO Q4H PRN for PAIN-MODERATE (5-7) Prescribed by: ALBIN BOJORQUEZ on 05/12/21 0901 Losartan Potassium (Losartan Potassium) 25 Mg Tablet, 25 MG PO DAILY Prescribed by: ALEXI ARAIZA on 05/10/21 1213 Metoprolol Succinate (Metoprolol Succinate) 100 Mg Tab.er.24h, 100 MG PO DAILY Prescribed by: ALEXI ARAIZA on 05/10/21 1213 Rivaroxaban (Xarelto Tablet) 20 Mg Tablet, 20 MG PO DAILY, (Reported) Entered as Reported by: KLAUDIA OTTO on 05/08/21 1103 Sulfamethoxazole/Trimethoprim (Bactrim Ds Tablet) 1 Each Tablet, 1 EACH PO BID Prescribed by: ALBIN BOJORQUEZ on 05/12/21 0900 Physical Exam-Cardiology Physical Exam Vital Signs/I&O 07/09/21 07/09/21 07/10/21 07/10/21 23:00 23:59 00:00 00:00 Temp 36.6 Pulse 138 152 Resp 19 15 B/P (MAP) 121/101 123/107 Pulse Ox 99 96 93 O2 Delivery Nasal Cannula Nasal Cannula Nasal Cannula O2 Flow Rate 2.00 2.00 2.00 07/10/21 07/10/21 07/10/21 07/10/21 00:32 01:00 01:00 02:00 Pulse 151 134 134 134 Resp 17 17 B/P (MAP) 106/54 113/97 Pulse Ox 96 95 92 O2 Delivery Nasal Cannula Nasal Cannula O2 Flow Rate 2.00 2.00 FiO2 24 07/10/21 07/10/21 07/10/21 07/10/21 03:00 04:00 04:00 04:00 Temp 36.0 Pulse 113 142 Resp 20 21 B/P (MAP) 104/90 118/99 Pulse Ox 91 96 96 O2 Delivery Nasal Cannula Nasal Cannula Nasal Cannula O2 Flow Rate 2.00 2.00 2.00 07/10/21 07/10/21 07/10/21 07/10/21 05:00 06:00 07:00 07:00 Pulse 151 142 129 146 Resp 17 18 10 B/P (MAP) 101/80 103/53 102/90 Pulse Ox 97 93 95 O2 Delivery Nasal Cannula Nasal Cannula Nasal Cannula O2 Flow Rate 2.00 2.00 2.00 07/10/21 07/10/21 07/10/21 07/10/21 08:00 08:40 08:50 09:00 Temp 36.1 Pulse 156 149 Resp 22 16 B/P (MAP) 81/68 94/68 Pulse Ox 100 91 97 O2 Delivery Nasal Cannula Nasal Cannula Nasal Cannula O2 Flow Rate 2.00 2.00 2.00 07/10/21 00:00 Intake Total 700 ml Output Total 600 ml Balance 100 ml Capillary Refill : Less Than 3 Seconds Constitutional: other (obtunded mental status; opens eyes to verbal and tactile stimuli; does not answer any questions) Respiratory: chest expansion is symmetric, chest is bilaterally symmetric, rhonchi (scattered), other (coarse breath sounds) Cardiovascular: irregularly irregular, tachycardia, S1 and S2 Gastrointestinal: soft, audible bowel sounds Extremities: other (bilat pitting LE swelling) Neurologic/Psychiatric: other (see above) Skin: No rash on exposed areas, No ulcerations on exposed areas Data Review Labs Laboratory Tests 07/09/21 16:08: White Blood Count 16.7H, Red Blood Count 4.81, Hemoglobin 13.3, Hematocrit 42, Mean Corpuscular Volume 88, Mean Corpuscular Hemoglobin 28, Mean Corpuscular Hemoglobin Concent 31L, Red Cell Distribution Width 18.2H, Platelet Count 367, Mean Platelet Volume 10.7, Immature Granulocyte % (Auto) 1, Neutrophils (%) (Auto) 91H, Lymphocytes (%) (Auto) 4L, Monocytes (%) (Auto) 5, Eosinophils (%) (Auto) 0, Basophils (%) (Auto) 0, Neutrophils # (Auto) 15.2H, Lymphocytes # (Auto) 0.6L, Monocytes # (Auto) 0.8, Eosinophils # (Auto) 0.0, Basophils # (Auto) 0.0, Immature Granulocyte # (Auto) 0.1, Neutrophils % (Manual) 91, Lymphocytes % (Manual) 4, Monocytes % (Manual) 5, Polychromasia SLIGHT, Hypochro masia SLIGHT, Prothrombin Time 16.7H, INR Comment 1.3, Activated Partial Thromboplast Time 26, Sodium Level 135, Potassium Level 4.5, Chloride Level 104, Carbon Dioxide Level 20L, Anion Gap 11, Blood Urea Nitrogen 21H, Creatinine 0.97, Estimat Glomerular Filtration Rate 85, BUN/Creatinine Ratio 22, Glucose Le robinson 176H, Calcium Level 9.2, Corrected Calcium 9.9, Magnesium Level 1.5L, Total Bilirubin 1.4H, Aspartate Amino Transf (AST/SGOT) 41H, Alanine Aminotransferase (ALT/SGPT) 42, Alkaline Phosphatase 144H, Myoglobin 124.0H, B-Type Natriuretic Peptide 3064.9H, Total Protein 6.6, Albumin 3.1L, SARS-CoV-2 RNA (RT-PCR) Not Detected 07/09/21 16:18: Troponin I < 0.028, Digoxin Level < 0.30L 07/09/21 18:32: Urine Color YELLOW, Urine Clarity CLEAR, Urine pH 5.5, Urine Specific [place] 1.025H, Urine Protein 1+H, Urine Glucose (UA) NEGATIVE, Urine Ketones NEGATIVE, Urine Nitrite NEGATIVE, Urine Bilirubin NEGATIVE, Urine Urobilinogen 0.2, Urine Leukocyte Esterase NEGATIVE, Urine RBC (Auto) NEGATIVE, Urine RBC NONE, Urine WBC NONE, Urine Squamous Epithelial Cells 0-2, Urine Crystals NONE, Urine Bacteria TRACE, Urine Casts PRESENT, Urine Hyaline Casts 0-2H, Urine Mucus SMALLH, Urine Culture Indicated NO, Urine Opiates Screen NEGATIVE, Urine Oxycodone Screen NEGATIVE, Urine Methadone Screen NEGATIVE, Urine Propoxyphene Screen NEGATIVE, Urine Barbiturates Screen NEGATIVE, Ur Tricyclic Antidepressants Screen NEGATIVE, Urine Phencyclidine Screen NEGATIVE, Urine Amphetamines Screen POSITIVEH, Urine Methamphetamines Screen POSITIVEH, Urine Benzodiazepines Screen NEGATIVE, Urine Cocaine Screen NEGATIVE, Urine Cannabinoids Screen POSITIVEH 07/10/21 04:15: White Blood Count 22.7H, Red Blood Count 4.92, Hemoglobin 13.7, Hematocrit 44, Mean Corpuscular Volume 89, Mean Corpuscular Hemoglobin 28, Mean Corpuscular Hemoglobin Concent 31L, Red Cell Distribution Width 18.1H, Platelet Count 381, Mean Platelet Volume 10.8, Immature Granulocyte % (Auto) 1, Neutrophils (%) (Auto) 89H, Lymphocytes (%) (Auto) 3L, Monocytes (%) (Auto) 7, Eosinophils (%) (Auto) 0, Basophils (%) (Auto) 0, Neutrophils # (Auto) 20.3H, Lymphocytes # (Auto) 0.7L, Monocytes # (Auto) 1.5H, Eosinophils # (Auto) 0.0, Basophils # (Auto) 0.0, Immature Granulocyte # (Auto) 0.2H, Sodium Level 135, Potassium Level 4.3, Chloride Level 102, Carbon Dioxide Level 21, Anion Gap 12, Blood Urea Nitrogen 23H, Creatinine 0.89, Estimat Glomerular Filtration Rate 94, BUN/Creatinine Ratio 26, Glucose Level 148H, Calcium Level 9.3, Corrected Calcium 9.9, Magnesium Level 2.2, Total Bilirubin 1.1H, Aspartate Amino Transf (AST/SGOT) 40H, Alanine Aminotransferase (ALT/SGPT) 40, Alkaline Phosphatase 147H, Total Protein 6.9, Albumin 3.3, Phosphorus Level 3.5, Triglycerides Level 92, Cholesterol Level 139, LDL Cholesterol Direct 122, VLDL Cholesterol 18, HDL Cholesterol 29L A/P-Cardiology Assessment/Admission Diagnosis Pneumonia - management per medical services Paroxysmal atrial fibrillation with RVR - h/o PAF - Cardizem gtt - Eliquis for stroke prophylaxis - PHILLIP was done on March 28, [address] Hernandez showing questionable left atrial appendage thrombus. No cardioversion was recommended - continue medication regimen NICM Acute on chronic systolic CHF - PHILLIP of 03-28-[address] Hernandez showed LVEF 40-45%. 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) - cessation advised Tobaccoism - cessation advised Obtunded mental status - likely secondary to hypoxia Noncompliance with medication, educated in length about compliance with medicat ions Discussion and Recomendations Complex management issue d/t continued non-compliance and continued me thamphetamine use D/t obtunded mental status we will change his medication regimen to parental until he becomes more alert IV Lopressor to help with rate control Continue IV cardizem Start IV Dig for rate control Change Eliquis to Lovenox for now Management of pneumonia is per medical services Monitor lab closely Further recs will be based on his hospital course We would like to thank medical services for this consult SAVI SILVA MD FACP FAC CCDS Jul 10, 2021 10:06
--- NOTE | 2021-07-10 10:56 | History & Physical-Hospitalist ---
History of Present Illness HPI/Chief Complaint Chief complaint: Shortness of breath History of present illness: This is a 41-year-old white male who is in the hospital frequently due to meth use and subsequent cardiac dysfunction who presented with shortness of breath found to have atrial fibrillation with rapid ventricular response chest x-ray showing suspicion for pneumonia. Patient was placed on Cardizem drip and antibiotics. Patient is just coming down off meth use. Source: patient, RN/MD, old records Exam Limitations: clinical condition Date Seen 07/10/21 Time Seen by a Provider: 11:00 Attending Physician Meghana Abebe MD PCP Center/Se,[facility] Referring Physician Date of Admission Jul 09, 2021 at 17:46 Home Medications & Allergies Home Medications Reviewed patient Home Medication Reconciliation performed by pharmacy medication reconciliations electrical and instrument technician and/or nursing. Patients Allergies have been reviewed. Allergies Allergies Coded Allergies Penicillins (Verified Allergy, Unknown, 11/09/20) Past Vuuvvcp-Lgwjmx-Iucaud Hx Patient Social History Marrital Status: single Employed/Student: unemployed Smoking Status: Current Everyday Smoker Substance use?: Yes Substance type: Methamphetamine, Marijuana Alcohol Use?: Yes Alcohol Frequency: Couple times a week Immunizations Up To Date Date of Influenza Vaccine: Aug 09, 2020 Tetanus Booster (TDap): Less Than 5 Years Hepatitis A: No Hepatitis B: No Current Status Advance Directives: No Primary Language: Lebanese Preferred Spoken Language: Lebanese Past Medical History Surgeries: Abdominal, Appendectomy Atrial Fibrillation, Cardiomyopathy, High Cholesterol, Hypertension Gastroesophageal Reflux Blood Disorders: No AF Meth use Family Medical History No Pertinent Family Hx SOCIAL HISTORY: -ETOH--REGULAR USE -DRUGS--METHAMPHETAMINES -SMOKES 1 PPD PAST SURGICAL HISTORY: -APPENDECTOMY -HERNIA REPAIR -CARDIOVERSIONS ECHOCARDIOGRAM 11/13/20--EF 30-35%, NO REGIONAL WALL MOTION ABNORMALITIES. EXTREME NON-COMPLIANCE IN ALL ASPECTS OF CARE Review of Systems ROS-Unable to Obtain: Meth withdrawal Constitutional: see HPI Physical Exam Physical Exam Vital Signs Vital Signs - First Documented 07/09/21 07/09/21 07/10/21 15:53 21:53 00:32 Temp 36.6 Pulse 128 Resp 16 B/P (MAP) 124/102 (109) Pulse Ox 92 O2 Delivery Room Air O2 Flow Rate 2.00 FiO2 24 Capillary Refill : Less Than 3 Seconds Height, Weight, BMI Height: '" Weight: lbs. oz. kg; 31.00 BMI Method: General Appearance: Anxious, Chronically ill, Obese, Other (Slightly agitated) Respiratory: No Accessory Muscle Use, No Respiratory Distress, Decreased Breath Sounds Cardiovascular: Irregularly Irregular, Tachycardia Neurologic/Psychiatric: Alert, Disoriented Results Results/Procedures Labs Laboratory Tests 07/09/21 16:08 07/10/21 04:15 07/11/21 04:52 Patient resulted labs reviewed. Assessment/Plan Admission Diagnosis Assessment: Atrial fibrillation with rapid ventricular response Meth use now withdrawal Pneumonia Noncompliance Plan: Supportive care Poor prognosis considering meth use Admission Status: Inpatient Order (span 2 midnights) Reason for Inpatient Admission: A. fib with RVR with pneumonia BK COLE DO Jul 10, 2021 10:56
[2021-07-10] MEDS: cefTRIAXone 1,000 MG/SWFI 10 ML IV PUSH IV SCH ×2 (19:56)
[2021-07-11] MEDS: LORazepam INJ 2 MG/ML (ATIVAN) VIAL IV PRN ×2 (01:19→17:25)
[2021-07-11] MEDS: dilTIAZem DRIP PRE-MIX 125 ML IV SCH ×2 (03:12→10:47)
[2021-07-11] MEDS: meTOprolol 5 MG/5 ML (LOPRESSOR) VIAL IV SCH ×8 (03:12→23:55)
[2021-07-11 05:20] LABS: BASOPHILS % (AUTO) 0 % (0-10); EOSINOPHILS # (AUTO) 0.1 10^3/uL (0.0-0.3); EOSINOPHILS % (AUTO) 1 % (0-10); HEMATOCRIT 45 % (40-54); HEMOGLOBIN 13.9 g/dL (13.3-17.7); LYMPHOCYTES # (AUTO) 1.6 10^3/uL (1.0-4.0); LYMPHOCYTES % (AUTO) 10 % (12-44); MEAN CORPUSCULAR HEMOGLOBIN 28 pg (25-34); MEAN CORPUSCULAR HGB CONC 31 g/dL (32-36); MEAN CORPUSCULAR VOLUME 89 fL (80-99); MEAN PLATELET VOLUME 10.7 fL (9.0-12.2); MONOCYTES # (AUTO) 1.2 10^3/uL (0.0-1.0); MONOCYTES % (AUTO) 7 % (0-12); NEUTROPHILS # (AUTO) 13.3 10^3/uL (1.8-7.8); NEUTROPHILS % (AUTO) 82 % (42-75); PLATELET COUNT 360 10^3/uL (130-400); WHITE BLOOD COUNT 16.3 10^3/uL (4.3-11.0)
[2021-07-11 05:38] LABS: ALBUMIN 3.1 GM/DL (3.2-4.5)
[2021-07-11 05:39] LABS: POTASSIUM 3.9 MMOL/L (3.6-5.0)
[2021-07-11 05:40] LABS: CALCIUM 9.4 MG/DL (8.5-10.1)
[2021-07-11 05:41] LABS: TOTAL PROTEIN 6.5 GM/DL (6.4-8.2)
[2021-07-11 05:44] LABS: PHOSPHORUS 3.1 MG/DL (2.3-4.7)
[2021-07-11 05:45] LABS: CREATININE SERUM 0.79 MG/DL (0.60-1.30)
[2021-07-11 05:48] LABS: MAGNESIUM 1.7 MG/DL (1.6-2.4)
[2021-07-11] MEDS: FUROSEMIDE 40 MG/4 ML INJ (LASIX) IV SCH ×2 (06:47→17:24)
[2021-07-11] MEDS: CATHETER FLUSH 10 ML SYR IV SCH ×3 (06:47→21:08)
--- NOTE | 2021-07-11 08:06 | Progress Note - Hospitalist ---
Subjective HPI/CC On Admission Date Seen by Provider: Jul 11, 2021 Time Seen by Provider: 10:30 Chief complaint: Shortness of breath History of present illness: This is a 41-year-old white male who is in the hospital frequently due to meth use and subsequent cardiac dysfunction who presented with shortness of breath found to have atrial fibrillation with rapid ventricular response chest x-ray showing suspicion for pneumonia. Patient was placed on Cardizem drip and antibiotics. Patient is just coming down off meth use. Subjective/Events-last exam Patient still delirious Thinks he is on his patient Maxed out on Cardizem still running 138 Increase metoprolol Review of Systems Neurological: Confusion Objective Exam Vital Signs Vital Signs Date Time Temp Pulse Resp B/P (MAP) Pulse Ox O2 Delivery O2 Flow Rate FiO2 07/12/21 05:00 115 22 102/76 Nasal Cannula 3.00 07/12/21 03:52 36.2 07/11/21 20:00 93 07/10/21 00:32 24 Capillary Refill : Less Than 3 Seconds General Appearance: No Apparent Distress, WD/WN, Chronically ill, Obese Respiratory: Lungs Clear Cardiovascular: Irregularly Irregular, Tachycardia Results/Procedures Lab Laboratory Tests 07/12/21 04:45 Patient resulted labs reviewed. Assessment/Plan Assessment and Plan Assess & Plan/Chief Complaint Assessment: Atrial fibrillation with rapid ventricular response Meth use now withdrawal Pneumonia Noncompliance Plan: Supportive care Poor prognosis considering meth use 07/11/2021: Cardizem drip Supportive care Critical Care Critically Ill Patient DOUGLASBK CHAN Jul 11, 2021 08:06
--- NOTE | 2021-07-11 08:08 | Tele-ICU Progress Note ---
Subjective Date Seen by a Provider: Jul 11, 2021 Time Seen by a Provider: 08:05 Subjective/Events-last exam Patient with history of atrial fibrillation now admitted with methamphetamine abuse causing relapse of atrial fibrillation with a rapid ventricular rate. It is also causing some metabolic encephalopathy. Now he is started on a Cardizem, IV metoprolol and IV dig digoxin. His rate is varying anywhere from 91-1 70 which is intermittently rate is elevated. He is a less obtunded than yesterday. Blood pressure is stable. Sepsis Event Evaluation Height, Weight, BMI Height: '" Weight: lbs. oz. kg; 31.00 BMI Method: Exam Exam Patient acknowledged, consented, and participated in this virtual visit which was conducted using real time audio/video Vital Signs Date Time Temp Pulse Resp B/P (MAP) Pulse Ox O2 Delivery O2 Flow Rate FiO2 07/11/21 07:55 Room Air 07/11/21 07:45 36.6 07/11/21 06:00 122 18 120/90 95 Nasal Cannula 3.00 07/11/21 05:00 116 20 118/87 94 Nasal Cannula 3.00 07/11/21 04:00 118 18 114/88 Nasal Cannula 3.00 07/11/21 04:00 93 Nasal Cannula 3.00 07/11/21 03:00 131 24 107/95 Nasal Cannula 3.00 07/11/21 02:00 138 19 107/92 Nasal Cannula 3.00 07/11/21 01:00 145 07/11/21 01:00 130 14 106/89 Nasal Cannula 3.00 07/11/21 00:00 36.4 07/11/21 00:00 93 Nasal Cannula 3.00 07/11/21 00:00 129 18 126/70 97 Nasal Cannula 3.00 07/10/21 23:00 141 21 104/72 93 Nasal Cannula 3.00 07/10/21 22:15 Nasal Cannula 3.00 07/10/21 22:00 135 21 102/87 93 Room Air 07/10/21 21:00 137 19 104/75 94 Room Air 07/10/21 20:00 35.3 07/10/21 20:00 93 Room Air 07/10/21 20:00 134 18 117/90 94 Room Air 07/10/21 19:00 119 07/10/21 19:00 138 16 124/93 Room Air 07/10/21 19:00 93 Room Air 07/10/21 18:00 147 16 90 Nasal Cannula 2.00 07/10/21 17:00 130 14 93 Nasal Cannula 2.00 07/10/21 16:00 131 25 118/81 95 Nasal Cannula 2.00 07/10/21 16:00 93 Room Air 07/10/21 15:37 35.9 07/10/21 15:00 144 21 96/78 95 Nasal Cannula 2.00 07/10/21 14:00 134 91 Nasal Cannula 2.00 07/10/21 13:00 112 07/10/21 13:00 116 91 Nasal Cannula 2.00 07/10/21 12:06 93 Room Air 07/10/21 12:00 117 95 Nasal Cannula 2.00 07/10/21 12:00 36.2 07/10/21 11:00 160 21 93 Nasal Cannula 2.00 07/10/21 10:00 118 22 135/103 96 Nasal Cannula 2.00 07/10/21 09:00 149 16 94/68 97 Nasal Cannula 2.00 07/10/21 08:50 36.1 07/10/21 08:40 91 Nasal Cannula 2.00 I & O 07/11/21 07:00 Intake Total 2300 ml Output Total 4225 ml Balance -1925 ml Height & Weight Height: '" Weight: lbs. oz. kg; 31.00 BMI Method: General Appearance: Anxious, Chronically ill, Obese, Other (Slightly agitated) HEENT: PERRL/EOMI, TMs Normal Neck: Full Range of Motion, Normal Inspection, Other (Jugular vein distention bilaterally) Respiratory: No Accessory Muscle Use, No Respiratory Distress, Decreased Breath Sounds Cardiovascular: Irregularly Irregular, Tachycardia Capillary Refill: Less Than 3 Seconds Gastrointestinal: normal bowel sounds, non tender Extremity: Normal Capillary Refill, Normal Inspection, No Pedal Edema Neurologic/Psychiatric: Alert, Disoriented Skin: Normal Color, Warm/Dry Other comments PE PER ATTENDING Results Lab Laboratory Tests 07/09/21 16:08 07/10/21 04:15 07/11/21 04:52 Meds REVIEWED Assessment/Plan Assessment/Plan 1. Amphetamine and methamphetamine abuse 2. Relapse of atrial fibrillation with rapid ventricular rate secondary to methamphetamine abuse 3. Acute and chronic mild systolic congestive heart failure 4. Metabolic encephalopathy due to drug abuse. 5. Possible community-acquired pneumonia. Recommendations 1. We will continue metoprolol and digoxin.and give additional dose of iv dogoxin due to rvr 2. Await for improvement in the mental status due to clearing of methamphetamines as well as cannabis. 3. His overall prognosis is poor due to noncompliance and drug abuse. 4. Continue anticoagulation for stroke prophylaxis. 5. IV antibiotics per primary care physician to cover community-acquired pneumonia. Critical Care: Critically Ill Patient Time spent with patient (mins): 25 JUS JOSEPH MD Jul 11, 2021 08:08
[2021-07-11] MEDS: ENOXAPARIN 100 MG/1 ML (LOVENOX) SYR SC SCH ×2 (08:42→21:07)
[2021-07-11] MEDS: DIGOXIN 0.25 MG (LANOXIN) TAB PO SCH (08:48)
[2021-07-11] MEDS: KCL 20 MEQ TAB (K-DUR) PO SCH ×2 (08:48→17:25)
[2021-07-11] MEDS: lisINopril 20 MG (PRINIVIL) TABLET PO SCH (08:52)
[2021-07-11] MEDS: DOXYCYCLINE INJECTION 100 MG in NS (IVPB) 100 ML IV SCH ×2 (08:59→21:09)
[2021-07-11] MEDS ORDERED: DIGOXIN 0.25 MG/ML (LANOXIN) 2 ML AMP IV ONE (10:30)
--- NOTE | 2021-07-11 10:48 | Progress Note - Cardiology ---
Cardiology SOAP Progress Note Subjective: Somnolent Confused Not able to provide any meaningful history Objective: I&O/Vital Signs 07/10/21 07/11/21 07/11/21 07/11/21 23:00 00:00 00:00 00:00 Temp 36.4 Pulse 141 129 Resp 21 18 B/P (MAP) 104/72 126/70 Pulse Ox 93 97 93 O2 Delivery Nasal Cannula Nasal Cannula Nasal Cannula O2 Flow Rate 3.00 3.00 3.00 07/11/21 07/11/21 07/11/21 07/11/21 01:00 01:00 02:00 03:00 Pulse 130 145 138 131 Resp 14 19 24 B/P (MAP) 106/89 107/92 107/95 O2 Delivery Nasal Cannula Nasal Cannula Nasal Cannula O2 Flow Rate 3.00 3.00 3.00 07/11/21 07/11/21 07/11/21 07/11/21 04:00 04:00 05:00 06:00 Pulse 118 116 122 Resp 18 20 18 B/P (MAP) 114/88 118/87 120/90 Pulse Ox 93 94 95 O2 Delivery Nasal Cannula Nasal Cannula Nasal Cannula Nasal Cannula O2 Flow Rate 3.00 3.00 3.00 3.00 07/11/21 07/11/21 07/11/21 07/11/21 07:00 07:00 07:45 07:55 Temp 36.6 Pulse 130 110 Resp 11 B/P (MAP) 108/74 Pulse Ox 97 O2 Delivery Nasal Cannula Room Air O2 Flow Rate 3.00 07/11/21 07/11/21 07/11/21 07/11/21 08:00 08:56 09:00 10:00 Pulse 146 135 165 Resp 22 21 17 B/P (MAP) 97/75 120/87 124/91 Pulse Ox 95 94 93 O2 Delivery Nasal Cannula Room Air Nasal Cannula Nasal Cannula O2 Flow Rate 3.00 0.00 3.00 3.00 07/11/21 00:00 Intake Total 1475 ml Output Total 2100 ml Balance -625 ml Constitutional: other (obtunded mental status; opens eyes to verbal and tactile stimuli; does not answer any questions) Respiratory: chest expansion is symmetric, chest is bilaterally symmetric, rhonchi (scattered), other (coarse breath sounds) Cardiovascular: irregularly irregular, tachycardia, S1 and S2 Gastrointestional: soft, audible bowel sounds Extremities: other (bilat pitting LE swelling) Neurologic/Psychiatric: other (see above) Skin: No rash on exposed areas, No ulcerations on exposed areas Results/Procedures: Labs Laboratory Tests 07/11/21 04:52: White Blood Count 16.3H, Red Blood Count 5.05, Hemoglobin 13.9, Hematocrit 45, Mean Corpuscular Volume 89, Mean Corpuscular Hemoglobin 28, Mean Corpuscular Hemoglobin Concent 31L, Red Cell Distribution Width 18.6H, Platelet Count 360, Mean Platelet Volume 10.7, Immature Granulocyte % (Auto) 1, Neutrophils (%) (Auto) 82H, Lymphocytes (%) (Auto) 10L, Monocytes (%) (Auto) 7, Eosinophils (%) (Auto) 1, Basophils (%) (Auto) 0, Neutrophils # (Auto) 13.3H, Lymphocytes # (Auto) 1.6, Monocytes # (Auto) 1.2H, Eosinophils # (Auto) 0.1, Basophils # (Auto) 0.0, Immature Granulocyte # (Auto) 0.1, Sodium Level 136, Potassium Level 3.9, Chloride Level 102, Carbon Dioxide Level 21, Anion Gap 13, Blood Urea Nitrogen 23H, Creatinine 0.79, Estimat Glomerular Filtration Rate 108, BUN/Creatinine Ratio 29, Glucose Level 108H, Calcium Level 9.4, Corrected Calcium 10.1, Phosphorus Level 3.1, Magnesium Level 1.7, Total Bilirubin 1.0, Aspartate Amino Transf (AST/SGOT) 31, Alanine Aminotransferase (ALT/SGPT) 34, Alkaline Phosphatase 153H, Total Creatine Kinase 76, Total Protein 6.5, Albumin 3.1L Laboratory Tests 07/09/21 16:08 07/10/21 04:15 07/11/21 04:52 A/P: Assessment: Altered mental status - managed by Hospitalist and ICU services Pneumonia - management Hospitalist and ICU services Paroxysmal atrial fibrillation with RVR, rate remains uncontrolled - h/o PAF - Cardizem gtt - Eliquis for stroke prophylaxis - PHILLIP was done on March 28, [address] Hernandez showing questionable left atrial appendage thrombus. No cardioversion was recommended - continue medication regimen NICM Acute on chronic systolic CHF - PHILLIP of 03-28-[address] Hernandez showed LVEF 40-45%. 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 Increase iv Lopressor to 5 mg iv q 6 hours. Reduce iv diltiazem and d/c lisinopril to provide more room on bp to accommodate iv Lopressor. Hold Lopressor if SBP < 95 mmHg Complex management issue d/t continued non-compliance and continued methamphetamine use D/t obtunded mental status have change his medication regimen to parental until he becomes more alert Monitor lab closely Pneumonia, mental status and drug abuse issues are being handled by the ICU and Hosp services He remains critically ill SAVI SILVA MD FACP FAC CCDS Jul 11, 2021 10:48
[2021-07-11] MEDS: cefTRIAXone 1,000 MG/SWFI 10 ML IV PUSH IV SCH ×2 (20:48)
[2021-07-12] MEDS: LORazepam INJ 2 MG/ML (ATIVAN) VIAL IV PRN ×3 (00:52→18:31)
[2021-07-12] MEDS: meTOprolol 5 MG/5 ML (LOPRESSOR) VIAL IV SCH ×4 (03:19→12:16)
[2021-07-12 05:15] LABS: BASOPHILS % (AUTO) 0 % (0-10); EOSINOPHILS # (AUTO) 0.3 10^3/uL (0.0-0.3); EOSINOPHILS % (AUTO) 3 % (0-10); HEMATOCRIT 46 % (40-54); LYMPHOCYTES # (AUTO) 1.7 10^3/uL (1.0-4.0); LYMPHOCYTES % (AUTO) 14 % (12-44); MEAN CORPUSCULAR HEMOGLOBIN 27 pg (25-34); MEAN CORPUSCULAR HGB CONC 31 g/dL (32-36); MEAN CORPUSCULAR VOLUME 87 fL (80-99); MEAN PLATELET VOLUME 10.4 fL (9.0-12.2); MONOCYTES # (AUTO) 0.9 10^3/uL (0.0-1.0); MONOCYTES % (AUTO) 8 % (0-12); NEUTROPHILS # (AUTO) 9.1 10^3/uL (1.8-7.8); NEUTROPHILS % (AUTO) 75 % (42-75); PLATELET COUNT 369 10^3/uL (130-400); WHITE BLOOD COUNT 12.1 10^3/uL (4.3-11.0)
[2021-07-12 05:43] LABS: CALCIUM 9.3 MG/DL (8.5-10.1)
[2021-07-12 05:44] LABS: TOTAL PROTEIN 6.4 GM/DL (6.4-8.2)
[2021-07-12 05:46] LABS: BILIRUBIN,TOTAL 1.2 MG/DL (0.1-1.0)
[2021-07-12 05:48] LABS: CREATININE SERUM 0.79 MG/DL (0.60-1.30)
[2021-07-12 05:49] LABS: PHOSPHORUS 3.7 MG/DL (2.3-4.7)
[2021-07-12 05:51] LABS: MAGNESIUM 1.5 MG/DL (1.6-2.4)
[2021-07-12] MEDS: dilTIAZem DRIP PRE-MIX 125 ML IV SCH (06:18)
[2021-07-12] MEDS: FUROSEMIDE 40 MG/4 ML INJ (LASIX) IV SCH ×2 (06:18→18:02)
[2021-07-12] MEDS: CATHETER FLUSH 10 ML SYR IV SCH ×3 (06:19→21:04)
--- NOTE | 2021-07-12 08:06 | Progress Note - Hospitalist ---
Subjective HPI/CC On Admission Date Seen by Provider: Jul 12, 2021 Time Seen by Provider: 11:00 Chief complaint: Shortness of breath History of present illness: This is a 41-year-old white male who is in the hospital frequently due to meth use and subsequent cardiac dysfunction who presented with shortness of breath found to have atrial fibrillation with rapid ventricular response chest x-ray showing suspicion for pneumonia. Patient was placed on Cardizem drip and antibiotics. Patient is just coming down off meth use. Subjective/Events-last exam Patient has not improved status Heart rate is improved to 91 Transferring to stepdown Wants a shower Review of Systems General: Fatigue, Malaise Objective Exam Vital Signs Vital Signs Date Time Temp Pulse Resp B/P (MAP) Pulse Ox O2 Delivery O2 Flow Rate FiO2 07/13/21 04:00 36.1 95 20 114/78 96 Room Air 07/12/21 09:50 0.00 07/10/21 00:32 24 Capillary Refill : Less Than 3 Seconds General Appearance: No Apparent Distress, WD/WN, Chronically ill Respiratory: Lungs Clear, Normal Breath Sounds Cardiovascular: Irregularly Irregular, Tachycardia Neurologic/Psychiatric: Alert, Oriented x3, No Motor/Sensory Deficits, Normal Mood/Affect Results/Procedures Lab Patient resulted labs reviewed. Assessment/Plan Assessment and Plan Assess & Plan/Chief Complaint Assessment: Atrial fibrillation with rapid ventricular response Meth use now withdrawal Pneumonia Noncompliance Plan: Supportive care Poor prognosis considering meth use 07/11/2021: Cardizem drip Supportive care 07/12/2021: Transfer to cardiac stepdown unit Critical Care Critically Ill Patient BK COLE DO Jul 12, 2021 08:05
[2021-07-12] MEDS: ENOXAPARIN 100 MG/1 ML (LOVENOX) SYR SC SCH ×2 (08:43→21:00)
[2021-07-12] MEDS: DIGOXIN 0.25 MG (LANOXIN) TAB PO SCH (08:43)
[2021-07-12] MEDS: KCL 20 MEQ TAB (K-DUR) PO SCH ×2 (08:43→18:02)
[2021-07-12] MEDS: DOXYCYCLINE INJECTION 100 MG in NS (IVPB) 100 ML IV SCH (08:45)
--- NOTE | 2021-07-12 11:24 | Tele-ICU Progress Note ---
Subjective Date Seen by a Provider: Jul 12, 2021 Time Seen by a Provider: 11:24 Sepsis Event Evaluation Height, Weight, BMI Height: '" Weight: lbs. oz. kg; 31.00 BMI Method: Exam Exam Patient acknowledged, consented, and participated in this virtual visit which was conducted using real time audio/video Vital Signs Date Time Temp Pulse Resp B/P (MAP) Pulse Ox O2 Delivery O2 Flow Rate FiO2 07/12/21 11:00 86 17 115/84 99 Room Air 07/12/21 10:00 111 18 102/71 95 Room Air 07/12/21 09:50 94 Room Air 0.00 07/12/21 09:00 96 19 105/87 93 Room Air 07/12/21 08:01 Room Air 07/12/21 08:00 128 13 100/87 Room Air 07/12/21 07:45 36.5 07/12/21 07:00 116 18 106/70 Room Air 07/12/21 07:00 104 07/12/21 05:52 100 20 105/90 Room Air 07/12/21 05:00 115 22 102/76 Nasal Cannula 3.00 07/12/21 04:52 114 20 105/83 Room Air 07/12/21 04:00 Room Air 07/12/21 03:52 36.2 121 20 110/96 Nasal Cannula 3.00 07/12/21 03:00 104 19 97/71 Nasal Cannula 3.00 07/12/21 01:52 113 18 103/74 Nasal Cannula 3.00 07/12/21 01:00 115 07/12/21 00:52 36.7 126 20 124/84 Nasal Cannula 3.00 07/12/21 00:00 106 26 108/63 Nasal Cannula 3.00 07/11/21 23:59 Room Air 07/11/21 23:00 124 19 115/99 Nasal Cannula 3.00 07/11/21 22:00 100 18 112/78 Nasal Cannula 3.00 07/11/21 21:00 114 17 105/71 Nasal Cannula 3.00 07/11/21 20:00 106 20 107/84 93 Nasal Cannula 3.00 07/11/21 20:00 18 98 Nasal Cannula 3.00 07/11/21 20:00 Room Air 07/11/21 19:37 36.8 07/11/21 19:00 109 07/11/21 19:00 109 15 108/73 95 Nasal Cannula 3.00 07/11/21 18:00 116 18 113/86 96 Nasal Cannula 3.00 07/11/21 17:00 105 22 94/62 Nasal Cannula 3.00 07/11/21 16:00 Room Air 07/11/21 16:00 108 19 141/98 Nasal Cannula 3.00 07/11/21 15:46 36.2 07/11/21 15:00 105 25 102/84 Nasal Cannula 3.00 07/11/21 14:00 118 19 117/96 91 Nasal Cannula 3.00 07/11/21 13:00 118 07/11/21 13:00 120 20 119/77 93 Nasal Cannula 3.00 07/11/21 12:04 Room Air 07/11/21 12:00 108 25 106/86 93 Nasal Cannula 3.00 07/11/21 11:30 36.4 I & O 07/12/21 07:00 Intake Total 2265 ml Output Total 7700 ml Balance -5435 ml Height & Weight Height: '" Weight: lbs. oz. kg; 31.00 BMI Method: General Appearance: No Apparent Distress, WD/WN, Chronically ill, Obese HEENT: PERRL/EOMI, TMs Normal Neck: Full Range of Motion, Normal Inspection, Other (Jugular vein distention bilaterally) Respiratory: Lungs Clear Cardiovascular: Irregularly Irregular, Tachycardia Capillary Refill: Less Than 3 Seconds Gastrointestinal: normal bowel sounds, non tender Extremity: Normal Capillary Refill, Normal Inspection, No Pedal Edema Neurologic/Psychiatric: Alert, Disoriented Skin: Normal Color, Warm/Dry Results Lab Laboratory Tests 07/11/21 04:52 07/12/21 04:45 Assessment/Plan Assessment/Plan (Tele-ICU Physician , Progress Note ) Available chart/ vitals / labs / Images reviewed Video assessment done using teleICU camera, rest of exam as per RN Discussed with RN , EXAM PER RN Events overnight : Afebrile I/O = neg 5 L Drips: Pressors: , hemodynamically stable Consultants: cornelio Hospital course: 07/09 41 yr male DX: Syncope, CHF, Pna A/P Pneumonia, suspected -IV doxycycline/Rocephin- tomorroe last day PAF RVR on admission - as per cards - AC -Eliquis - PHILLIP 2020 questionable left atrial appendage thrombus.-> No cardioversion was recommended Acute on chronic systolic CHF . NICM - LVEF 40-45%. Mild MR ETOH abuse Methamphetamine/marijuana abuse (tested positive this admission) - monitor for withdrawal, prn benzo Lines : (Central Line Necessity Reviewed) Locke: OG: Nutrition: po Analgesia: Anxiety/ delirium VTE Prophylaxis: eliquis Stress Ulcer Prophylaxis: na Glycemic Control: Plans in collaboration with bedside consultants and IM MDs. Discussed with RN to reach out if any questions or concerns A total of 20 minutes of critical care time was devoted to this patient today, required to treat and/or prevent further deterioration of critical care condition ( as above) . TAE AGUAYO MD Jul 12, 2021 11:24
[2021-07-12] MEDS: meTOproloL SUCCINATE 50 MG (TOPROL XL) TAB PO SCH ×2 (14:09→20:59)
--- NOTE | 2021-07-12 15:38 | Progress Note - Cardiology ---
Cardiology SOAP Progress Note Subjective: Gen weakness and malaise present No cp or palp or syncope or shortness of breath at rest No n/v/d Objective: I&O/Vital Signs 07/12/21 07/12/21 07/12/21 07/12/21 03:52 04:00 04:52 05:00 Temp 36.2 Pulse 121 114 115 Resp 20 20 22 B/P (MAP) 110/96 105/83 102/76 O2 Delivery Nasal Cannula Room Air Room Air Nasal Cannula O2 Flow Rate 3.00 3.00 07/12/21 07/12/21 07/12/21 07/12/21 05:52 07:00 07:00 07:45 Temp 36.5 Pulse 100 104 116 Resp 20 18 B/P (MAP) 105/90 106/70 O2 Delivery Room Air Room Air 07/12/21 07/12/21 07/12/21 07/12/21 08:00 08:01 09:00 09:50 Pulse 128 96 Resp 13 19 B/P (MAP) 100/87 105/87 Pulse Ox 93 94 O2 Delivery Room Air Room Air Room Air Room Air O2 Flow Rate 0.00 07/12/21 07/12/21 07/12/21 07/12/21 10:00 11:00 12:00 12:00 Temp 36.7 Pulse 111 86 101 Resp 18 17 16 B/P (MAP) 102/71 115/84 114/73 Pulse Ox 95 99 O2 Delivery Room Air Room Air Room Air 07/12/21 07/12/21 07/12/21 07/12/21 12:12 13:00 13:00 14:00 Pulse 82 131 84 Resp 22 21 B/P (MAP) 112/80 101/75 O2 Delivery Room Air Room Air Room Air 07/12/21 00:00 Intake Total 1020 ml Output Total 3150 ml Balance -2130 ml Constitutional: other (obtunded mental status; opens eyes to verbal and tactile stimuli; does not answer any questions) Respiratory: chest expansion is symmetric, chest is bilaterally symmetric, rhonchi (scattered), other (coarse breath sounds) Cardiovascular: irregularly irregular, tachycardia, S1 and S2 Gastrointestional: soft, audible bowel sounds Extremities: other (bilat pitting LE swelling) Neurologic/Psychiatric: other (see above) Skin: No rash on exposed areas, No ulcerations on exposed areas Results/Procedures: Labs Laboratory Tests 07/12/21 04:45: White Blood Count 12.1H, Red Blood Count 5.22, Hemoglobin 14.0, Hematocrit 46, Mean Corpuscular Volume 87, Mean Corpuscular Hemoglobin 27, Mean Corpuscular Hemoglobin Concent 31L, Red Cell Distribution Width 18.4H, Platelet Count 369, Mean Platelet Volume 10.4, Immature Granulocyte % (Auto) 1, Neutrophils (%) (Auto) 75, Lymphocytes (%) (Auto) 14, Monocytes (%) (Auto) 8, Eosinophils (%) (Auto) 3, Basophils (%) (Auto) 0, Neutrophils # (Auto) 9.1H, Lymphocytes # (Auto) 1.7, Monocytes # (Auto) 0.9, Eosinophils # (Auto) 0.3, Basophils # (Auto) 0.0, Immature Granulocyte # (Auto) 0.1, Sodium Level 138, Potassium Level 4.0, Chloride Level 99, Carbon Dioxide Level 25, Anion Gap 14, Blood Urea Nitrogen 20H, Creatinine 0.79, Estimat Glomerular Filtration Rate 108, BUN/Creatinine Ratio 25, Glucose Level 117H, Calcium Level 9.3, Corrected Calcium 10.1, Phosphorus Level 3.7, Magnesium Level 1.5L, Total Bilirubin 1.2H, Aspartate Amino Transf (AST/SGOT) 33, Alanine Aminotransferase (ALT/SGPT) 35, Alkaline Phosphatase 167H, Total Protein 6.4, Albumin 3.0L Laboratory Tests 07/11/21 04:52 07/12/21 04:45 A/P: Assessment: Altered mental status, improving - managed by Hospitalist and ICU services Pneumonia - management Hospitalist and ICU services Paroxysmal atrial fibrillation with RVR, rate remains uncontrolled - h/o PAF - Cardizem gtt - Eliquis for stroke prophylaxis - PHILLIP was done on March 28, [address] Hernandez showing questionable left atrial appendage thrombus. No cardioversion was recommended - continue medication regimen NICM Acute on chronic systolic CHF - PHILLIP of 03-28-[address] Hernandez showed LVEF 40-45%. Mild MR Hypertension Hyperlipidemia ETOH abuse - cessation has been repeatedly advised Methamphetamine/marijuana abuse (tested positive this admission) - cessation has been repeatedly advised Tobaccoism - cessation has been repeatedly advised Noncompliance with medication and other medical instructions Plan: Change dilt and beta-ryan to oral Complex management issue d/t continued non-compliance and continued methamphetamine use D/t obtunded mental status have change his medication regimen to parental until he becomes more alert Monitor lab closely Pneumonia, mental status and drug abuse issues are being handled by the ICU and Hosp services SAVI SILVA MD FACP FAC CCDS Jul 12, 2021 15:38
[2021-07-12] MEDS ORDERED: diphenhydrAMINE 25 MG TAB (BENADRYL) PO PRN (20:15)
[2021-07-12] MEDS ORDERED: LOPERAMIDE 2 MG (IMODIUM) TABLET PO PRN (20:15)
[2021-07-12] MEDS ORDERED: MELATONIN 3 MG TABLET PO PRN (20:15)
[2021-07-12] MEDS ORDERED: ONDANSETRON 4 MG (ZOFRAN) ORAL DISSOLVE TAB PO PRN (20:15)
[2021-07-12] MEDS ORDERED: ONDANSETRON 4 MG/2 ML (SDV) Z0FRAN IVP PRN (20:15)
[2021-07-12] MEDS ORDERED: ACETAMINOPHEN 500 MG TAB (TYLENOL) PO PRN (20:15)
[2021-07-12] MEDS ORDERED: DOCUSATE SODIUM 100 MG (COLACE) CAP PO PRN (20:15)
[2021-07-12] MEDS ORDERED: CALCIUM CARBONATE 500 MG (TUMS) TAB.CHEW PO PRN (20:15)
[2021-07-12] MEDS: cefTRIAXone 1,000 MG/SWFI 10 ML IV PUSH IV SCH ×2 (20:59)
[2021-07-12] MEDS: DOXYCYCLINE 100 MG (VIBRAMYCIN) TABLET PO SCH (21:00)
[2021-07-12] MEDS: SENNA W/DOCUSATE (SENOKOT S) TABLET PO SCH (21:03)
[2021-07-12] MEDS: HYDROcodone/APAP 5 MG/325 MG (LORTAB) TAB PO PRN (21:04)
[2021-07-13 05:30] LABS: BASOPHILS # (AUTO) 0.1 10^3/uL (0.0-0.1); BASOPHILS % (AUTO) 0 % (0-10); EOSINOPHILS # (AUTO) 0.6 10^3/uL (0.0-0.3); EOSINOPHILS % (AUTO) 5 % (0-10); HEMATOCRIT 48 % (40-54); LYMPHOCYTES # (AUTO) 1.9 10^3/uL (1.0-4.0); LYMPHOCYTES % (AUTO) 16 % (12-44); MEAN CORPUSCULAR HEMOGLOBIN 27 pg (25-34); MEAN CORPUSCULAR HGB CONC 31 g/dL (32-36); MEAN CORPUSCULAR VOLUME 87 fL (80-99); MEAN PLATELET VOLUME 9.7 fL (9.0-12.2); MONOCYTES # (AUTO) 1.1 10^3/uL (0.0-1.0); MONOCYTES % (AUTO) 9 % (0-12); NEUTROPHILS % (AUTO) 69 % (42-75); PLATELET COUNT 342 10^3/uL (130-400); WHITE BLOOD COUNT 11.6 10^3/uL (4.3-11.0)
[2021-07-13 05:40] LABS: POTASSIUM 4.1 MMOL/L (3.6-5.0)
[2021-07-13 05:41] LABS: CALCIUM 9.7 MG/DL (8.5-10.1)
[2021-07-13 05:42] LABS: TOTAL PROTEIN 6.6 GM/DL (6.4-8.2)
[2021-07-13 05:44] LABS: BILIRUBIN,TOTAL 1.1 MG/DL (0.1-1.0)
[2021-07-13 05:45] LABS: PHOSPHORUS 4.3 MG/DL (2.3-4.7)
[2021-07-13 05:46] LABS: CREATININE SERUM 0.86 MG/DL (0.60-1.30)
[2021-07-13 05:49] LABS: MAGNESIUM 1.7 MG/DL (1.6-2.4)
[2021-07-13] MEDS: FUROSEMIDE 40 MG/4 ML INJ (LASIX) IV SCH (06:47)
[2021-07-13] MEDS: CATHETER FLUSH 10 ML SYR IV SCH ×3 (06:48→20:20)
[2021-07-13] MEDS: DOXYCYCLINE 100 MG (VIBRAMYCIN) TABLET PO SCH ×2 (08:06→18:28)
[2021-07-13] MEDS: ENOXAPARIN 100 MG/1 ML (LOVENOX) SYR SC SCH (08:06)
[2021-07-13] MEDS: SENNA W/DOCUSATE (SENOKOT S) TABLET PO SCH ×2 (08:06→20:20)
[2021-07-13] MEDS: KCL 20 MEQ TAB (K-DUR) PO SCH ×2 (08:06→18:28)
[2021-07-13] MEDS: DIGOXIN 0.25 MG (LANOXIN) TAB PO SCH (08:06)
[2021-07-13] MEDS: meTOproloL SUCCINATE 50 MG (TOPROL XL) TAB PO SCH ×2 (08:07→20:20)
--- NOTE | 2021-07-13 09:37 | Progress Note - Hospitalist ---
Subjective HPI/CC On Admission Date Seen by Provider: Jul 13, 2021 Time Seen by Provider: 09:30 Chief complaint: Shortness of breath History of present illness: This is a 41-year-old white male who is in the hospital frequently due to meth use and subsequent cardiac dysfunction who presented with shortness of breath found to have atrial fibrillation with rapid ventricular response chest x-ray showing suspicion for pneumonia. Patient was placed on Cardizem drip and antibiotics. Patient is just coming down off meth use. Subjective/Events-last exam Pt doing a lot better Breathing better Rate is controlled Will go home tomorrow with a relative back to [facility] Meth use cessation is discussed Review of Systems General: Fatigue Objective Exam Vital Signs Vital Signs Date Time Temp Pulse Resp B/P (MAP) Pulse Ox O2 Delivery O2 Flow Rate FiO2 07/14/21 04:44 35.8 73 18 90/66 97 Room Air 07/12/21 09:50 0.00 07/10/21 00:32 24 Capillary Refill : Less Than 3 Seconds General Appearance: No Apparent Distress, WD/WN, Chronically ill Respiratory: Chest Non Tender, Lungs Clear, Normal Breath Sounds, No Accessory Muscle Use, No Respiratory Distress Cardiovascular: No Edema, No Gallop, No JVD, No Murmur, Normal Peripheral Pulses, Irregularly Irregular Neurologic/Psychiatric: Alert, Oriented x3, No Motor/Sensory Deficits, Normal Mood/Affect Results/Procedures Lab Laboratory Tests 07/13/21 05:10 Patient resulted labs reviewed. Assessment/Plan Assessment and Plan Assess & Plan/Chief Complaint Assessment: Atrial fibrillation with rapid ventricular response Meth use now withdrawal Pneumonia Noncompliance Plan: Supportive care Poor prognosis considering meth use 07/11/2021: Cardizem drip Supportive care 07/12/2021: Transfer to cardiac stepdown unit 07/13/2021: Discharge plan for tomorrow Moving out of state Critical Care Critically Ill Patient DOUGLASBK CHAN Jul 13, 2021 09:37
[2021-07-13] MEDS ORDERED: MAGNESIUM 1 GM/100 ML IVPB 100 ML IV ONE (10:00)
--- NOTE | 2021-07-13 10:22 | Progress Note - Cardiology ---
Cardiology SOAP Progress Note Subjective: No cp or palp or syncope No shortness of breath at rest No n/v/d Gen weakness and malaise are present Objective: I&O/Vital Signs 07/13/21 07/13/21 07/13/21 07/13/21 00:52 01:00 04:00 06:37 Temp 36.9 36.1 Pulse 112 80 95 86 Resp 18 20 B/P (MAP) 114/78 114/78 Pulse Ox 92 96 O2 Delivery Room Air Room Air 07/13/21 07/13/21 07:54 08:00 Temp 36.2 Pulse 82 Resp 26 B/P (MAP) 118/94 Pulse Ox 95 O2 Delivery Room Air Room Air 07/13/21 00:00 Intake Total 2715 ml Output Total 4775 ml Balance -2060 ml Constitutional: other (obtunded mental status; opens eyes to verbal and tactile stimuli; does not answer any questions) Respiratory: chest expansion is symmetric, chest is bilaterally symmetric, rhonchi (scattered), other (coarse breath sounds) Cardiovascular: irregularly irregular, tachycardia, S1 and S2 Gastrointestional: soft, audible bowel sounds Extremities: other (bilat pitting LE swelling) Neurologic/Psychiatric: other (see above) Skin: No rash on exposed areas, No ulcerations on exposed areas Results/Procedures: Labs Laboratory Tests 07/13/21 05:10: White Blood Count 11.6H, Red Blood Count 5.49, Hemoglobin 15.0, Hematocrit 48, Mean Corpuscular Volume 87, Mean Corpuscular Hemoglobin 27, Mean Corpuscular H emoglobin Concent 31L, Red Cell Distribution Width 18.4H, Platelet Count 342, Mean Platelet Volume 9.7, Immature Granulocyte % (Auto) 1, Neutrophils (%) (Auto) 69, Lymphocytes (%) (Auto) 16, Monocytes (%) (Auto) 9, Eosinophils (%) (Auto) 5, Basophils (%) (Auto) 0, Neutrophils # (Auto) 8.0H, Lymphocytes # (Auto) 1.9, Monocytes # (Auto) 1.1H, Eosinophils # (Auto) 0.6H, Basophils # (Auto) 0.1, Immature Granulocyte # (Auto) 0.1, Sodium Level 135, Potassium Level 4.1, Chloride Level 98, Carbon Dioxide Level 27, Anion Gap 10, Blood Urea Nitrogen 19H, Creatinine 0.86, Estimat Glomerular Filtration Rate 98, BUN/Creatinine Ratio 22, Glucose Level 106H, Calcium Level 9.7, Corrected Calcium 10.5H, Phosphorus Level 4.3, Magnesium Level 1.7, Total Bilirubin 1.1H, Aspartate Amino Transf (AST/SGOT) 32, Alanine Aminotransferase (ALT/SGPT) 32, Alkaline Phosphatase 181H, Total Protein 6.6, Albumin 3.0L Laboratory Tests 07/12/21 04:45 07/13/21 05:10 A/P: Assessment: Altered mental status, improving - managed by Hospitalist and ICU services Pneumonia - management Hospitalist and ICU services Paroxysmal atrial fibrillation with RVR, rate remains uncontrolled - h/o PAF - Cardizem gtt - Eliquis for stroke prophylaxis - PHILLIP was done on March 28, [address] Hernandez showing questionable left atrial appendage thrombus. No cardioversion was recommended - continue medication regimen NICM Acute on chronic systolic CHF - PHILLIP of 03-28-[address] Hernandez showed LVEF 40-45%. Mild MR Hypertension Hyperlipidemia ETOH abuse - cessation has been repeatedly advised Methamphetamine/marijuana abuse (tested positive this admission) - cessation has been repeatedly advised Tobaccoism - cessation has been repeatedly advised Noncompliance with medication and other medical instructions Plan: Change diuretics to oral Change anti coag to oral Change dilt and beta-ryan to oral Complex management issue d/t continued non-compliance and continued methamphetamine use Advised compliance with meds and med instructions Monitor lab closely Pneumonia, mental status and drug abuse issues are being handled by the ICU and Hosp services SAVI SILVA MD FACP [facility] CCDS Jul 13, 2021 10:22
[2021-07-13] MEDS ORDERED: ACETAMINOPHEN 325 MG TABLET PO PRN (14:00)
[2021-07-13] MEDS: ALPRAZolam 0.25 MG (XANAX) TAB PO PRN (18:28)
[2021-07-13] MEDS: FUROSEMIDE 40 MG (LASIX) TAB PO SCH (18:28)
[2021-07-13] MEDS: HYDROcodone/APAP 5 MG/325 MG (LORTAB) TAB PO PRN (18:30)
[2021-07-13] MEDS: cefTRIAXone 1,000 MG/SWFI 10 ML IV PUSH IV SCH ×2 (20:20)
[2021-07-13] MEDS: APIXABAN 5 MG (ELIQUIS) TABLET PO SCH (20:20)
[2021-07-14] MEDS: ALPRAZolam 0.25 MG (XANAX) TAB PO PRN (04:45)
[2021-07-14] MEDS: CATHETER FLUSH 10 ML SYR IV SCH (04:45)
[2021-07-14] MEDS: DOXYCYCLINE 100 MG (VIBRAMYCIN) TABLET PO SCH (06:00)
[2021-07-14] MEDS: FUROSEMIDE 40 MG (LASIX) TAB PO SCH (06:00)
[2021-07-14 06:07] LABS: BASOPHILS # (AUTO) 0.1 10^3/uL (0.0-0.1); BASOPHILS % (AUTO) 1 % (0-10); EOSINOPHILS # (AUTO) 0.7 10^3/uL (0.0-0.3); EOSINOPHILS % (AUTO) 6 % (0-10); HEMATOCRIT 49 % (40-54); HEMOGLOBIN 15.4 g/dL (13.3-17.7); LYMPHOCYTES # (AUTO) 1.8 10^3/uL (1.0-4.0); LYMPHOCYTES % (AUTO) 14 % (12-44); MEAN CORPUSCULAR HEMOGLOBIN 27 pg (25-34); MEAN CORPUSCULAR HGB CONC 31 g/dL (32-36); MEAN CORPUSCULAR VOLUME 87 fL (80-99); MEAN PLATELET VOLUME 10.3 fL (9.0-12.2); MONOCYTES # (AUTO) 1.3 10^3/uL (0.0-1.0); MONOCYTES % (AUTO) 10 % (0-12); NEUTROPHILS # (AUTO) 8.7 10^3/uL (1.8-7.8); NEUTROPHILS % (AUTO) 69 % (42-75); PLATELET COUNT 382 10^3/uL (130-400); WHITE BLOOD COUNT 12.6 10^3/uL (4.3-11.0)
[2021-07-14 06:15] LABS: POTASSIUM 4.4 MMOL/L (3.6-5.0)
[2021-07-14 06:16] LABS: CALCIUM 9.8 MG/DL (8.5-10.1)
[2021-07-14 06:17] LABS: TOTAL PROTEIN 6.8 GM/DL (6.4-8.2)
[2021-07-14 06:19] LABS: BILIRUBIN,TOTAL 0.9 MG/DL (0.1-1.0)
[2021-07-14 06:21] LABS: CREATININE SERUM 0.81 MG/DL (0.60-1.30)
[2021-07-14 06:24] LABS: MAGNESIUM 1.8 MG/DL (1.6-2.4)
[2021-07-14] MEDS: KCL 20 MEQ TAB (K-DUR) PO SCH (09:42)
[2021-07-14] MEDS: meTOproloL SUCCINATE 50 MG (TOPROL XL) TAB PO SCH (09:42)
[2021-07-14] MEDS: DIGOXIN 0.25 MG (LANOXIN) TAB PO SCH (09:42)
[2021-07-14] MEDS: APIXABAN 5 MG (ELIQUIS) TABLET PO SCH (09:42)
[2021-07-14] MEDS: SENNA W/DOCUSATE (SENOKOT S) TABLET PO SCH (09:43)
[2021-07-14] MEDS ORDERED: APIX5TAB PO (09:58)
[2021-07-14] MEDS ORDERED: POTA20TA8 PO (09:58)
[2021-07-14] MEDS ORDERED: METO50TA7 PO (09:58)
[2021-07-14] MEDS ORDERED: FURO40TA4 PO (09:58)
[2021-07-14] MEDS ORDERED: DILT360C26 PO (09:58)
[2021-07-14] MEDS ORDERED: DIGO250T15 PO (09:58)
[2021-07-14] MEDS ORDERED: PANTOPRAZOLE 40 MG (PROTONIX) TAB PO ONE (10:00)
--- NOTE | 2021-07-14 10:46 | Discharge Summary ---
Discharge Summary Hospital Course Was the Problem List Reviewed?: Yes Problems/Dx: (1) Persistent atrial fibrillation (2) Substance abuse Status: Chronic Hospital Course Date of Admission: Jul 09, 2021 at 17:46 Admission Diagnosis : [facility]: 07/14/21 Discharge Diagnosis: A. fib with RVR, meth use Hospital Course: Hospital course: Pt had an uneventful hospital course, just like multiple hospital stays all brought on by meth use. He was admitted for AFIB with RVR, required Cardizem drip and cardiology was consulted. He was ultimately found to be rate controlled, meds will be sent into [facility] by cardiology and he will be discharged today. Labs and Pending Lab Test: Laboratory Tests 07/14/21 05:37: White Blood Count 12.6H, Red Blood Count 5.70H, Hemoglobin 15.4, Hematocrit 49, Mean Corpuscular Volume 87, Mean Corpuscular Hemoglobin 27, Mean Corpuscular Hemoglobin Concent 31L, Red Cell Distribution Width 17.7H, Platelet Count 382, Mean Platelet Volume 10.3, Immature Granulocyte % (Auto) 1, Neutrophils (%) (Auto) 69, Lymphocytes (%) (Auto) 14, Monocytes (%) (Auto) 10, Eosinophils (%) (Auto) 6, Basophils (%) (Auto) 1, Neutrophils # (Auto) 8.7H, Lymphocytes # (Auto) 1.8, Monocytes # (Auto) 1.3H, Eosinophils # (Auto) 0.7H, Basophils # (Auto) 0.1, Immature Granulocyte # (Auto) 0.1, Sodium Level 135, Potassium Level 4.4, Chloride Level 97L, Carbon Dioxide Level 27, Anion Gap 11, Blood Urea Nitrogen 21H, Creatinine 0.81, Estimat Glomerular Filtration Rate 105, BUN/Creatinine Ratio 26, Glucose Level 116H, Calcium Level 9.8, Corrected Calcium 10.6H, Phosphorus Level 4.0, Magnesium Level 1.8, Total Bilirubin 0.9, Aspartate Amino Transf (AST/SGOT) 30, Alanine Aminotransferase (ALT/SGPT) 31, Alkaline Phosphatase 177H, Total Protein 6.8, Albumin 3.0L, Digoxin Level 0.58L Home Meds Active Furosemide 40 Mg Tablet 40 Mg PO DAILY@ Klor-Con M20 (Potassium Chloride) 20 Meq Tab.er.prt 20 Meq PO BID WITH MEALS Cardizem Cd (Diltiazem HCl) 360 Mg Cap.er.24h 360 Mg PO DAILY Metoprolol Succinate 50 Mg Tab.er.24h 50 Mg PO BID Digox (Digoxin) 250 Mcg Tablet 0.25 Mg PO DAILY Eliquis (Apixaban) 5 Mg Tablet 5 Mg PO BID Assessment/Pt Instructions Establish care with new PCP Discharge Planning: <30 minutes discharge planning Discharge Instructions Discharge Diet: Low Sodium Diet Activity as Tolerated: Yes Discharge Physical Examination Vital Signs Vital Signs Date Time Temp Pulse Resp B/P (MAP) Pulse Ox O2 Delivery O2 Flow Rate FiO2 07/14/21 08:00 35.9 82 12 107/87 Room Air 07/14/21 04:44 97 07/12/21 09:50 0.00 07/10/21 00:32 24 General Appearance: No Apparent Distress, WD/WN, Chronically ill Allergies: Coded Allergies: Penicillins (Verified Allergy, Unknown, 11/09/20) Discharge Summary Date of Admission Jul 09, 2021 at 17:46 Date of Discharge Discharge Date: Jul 14, 2021 Admission Diagnosis Assessment: Atrial fibrillation with rapid ventricular response Meth use now withdrawal Pneumonia Noncompliance Plan: Supportive care Poor prognosis considering meth use Discharge Diagnosis Assessment: Atrial fibrillation with rapid ventricular response Meth use now withdrawal Pneumonia Noncompliance Plan: Supportive care Poor prognosis considering meth use 07/11/2021: Cardizem drip Supportive care 07/12/2021: Transfer to cardiac stepdown unit 07/13/2021: Discharge plan for tomorrow Moving out of state BK COLE DO Jul 14, 2021 10:46
[2021-07-14 11:22] VITALS: BP 100/75
[2021-07-15] MEDS ORDERED: PANTOPRAZOLE 40 MG (PROTONIX) TAB PO SCH (09:00)
== END 2021-07-14 11:27 | disposition home or self-care (01) | DRG 193 ==
LOC: EDUNIT# 15:53 → ER 15:55 → ICU 17:46 → CSD 07-12 17:24
PROVIDERS: ADMIT Family Medicine; ATTEND Family Medicine
DX: J18.9 Pneumonia, unspecified organism (principal); I50.23 Acute on chronic systolic (congestive) heart failure; G92.8 Other toxic encephalopathy; I42.9 Cardiomyopathy, unspecified; F15.13 Other stimulant abuse with withdrawal; I48.0 Paroxysmal atrial fibrillation; I11.0 Hypertensive heart disease with heart failure; E66.9 Obesity, unspecified; Z20.822 Contact with and (suspected) exposure to COVID-19; Z68.30 Body mass index [BMI] 30.0-30.9, adult; F12.10 Cannabis abuse, uncomplicated; Z88.0 Allergy status to penicillin; Z79.2 Long term (current) use of antibiotics; Z79.899 Other long term (current) drug therapy; E78.00 Pure hypercholesterolemia, unspecified; K21.9 Gastro-esophageal reflux disease without esophagitis; F17.210 Nicotine dependence, cigarettes, uncomplicated; Z91.14 Patient's other noncompliance with medication regimen; F10.10 Alcohol abuse, uncomplicated; R09.02 Hypoxemia
CPT/HCPCS: 36415; 71045; 80053; 80061; 80162; 80306; 81000; 82550; 83735; 83874; 83880; 84100; 84484; 85007; 85025; 85027; 85610; 85730; 87636; 93005; 93041; 96374; 96375

== ENCOUNTER 2021-10-02 01:10 | Inpatient (IN) | payer SELFPAY ==
[~2021-10-02] VITALS: Ht 180.3 cm; Wt 84.6 kg
[~2021-10-02 01:10] MED LIST changes: -AMIO200T6 PO; +AMIO200T65 PO; +CLIN-144 PO; -CLIN300C12 PO; +DILT360C26 PO; +POTA-169 PO
[2021-10-02] MEDS ORDERED: ROCURONIUM 10 MG/ML 5 ML SYRINGE IV ONE ×3 (01:13→04:45)
[2021-10-02] MEDS ORDERED: MIDAZOLAM 5 MG/5 ML (VERSED) VIAL IJ ONE (01:13)
[2021-10-02] MEDS ORDERED: ETOMIDATE IV SOLN 20 MG/10 ML VIAL IV ONE ×2 (01:13→04:45)
[2021-10-02] MEDS ORDERED: fentaNYL INJ 100 MCG/2 ML AMP IV ONE (01:13)
[2021-10-02] MEDS ORDERED: LORazepam INJ 2 MG/ML (ATIVAN) VIAL ONE (01:25)
[2021-10-02 01:29] LABS: BASOPHILS # (AUTO) 0.1 10^3/uL (0.0-0.1); BASOPHILS % (AUTO) 0 % (0-10); EOSINOPHILS % (AUTO) 0 % (0-10); HEMATOCRIT 49 % (40-54); HEMOGLOBIN 15.1 g/dL (13.3-17.7); LYMPHOCYTES % (AUTO) 6 % (12-44); MEAN CORPUSCULAR HEMOGLOBIN 27 pg (25-34); MEAN CORPUSCULAR HGB CONC 31 g/dL (32-36); MEAN CORPUSCULAR VOLUME 88 fL (80-99); MEAN PLATELET VOLUME 11.1 fL (9.0-12.2); MONOCYTES # (AUTO) 1.3 10^3/uL (0.0-1.0); MONOCYTES % (AUTO) 4 % (0-12); NEUTROPHILS % (AUTO) 89 % (42-75); PLATELET COUNT 409 10^3/uL (130-400)
[2021-10-02] MEDS ORDERED: BENZTROPINE 2 MG/2 ML INJ (COGENTIN) AMP IV ONE (01:30)
[2021-10-02] MEDS ORDERED: LACTATED RINGERS 1,000 ML IV ONE ×3 (01:30→05:45)
[2021-10-02] MEDS ORDERED: LORazepam INJ 2 MG/ML (ATIVAN) VIAL IVP ONE (01:30)
--- NOTE | 2021-10-02 01:30 | ED Chest Pain ---
General Stated Complaint: METH USE Source: patient Exam Limitations: no limitations (ALBIN DUARTE) History of Present Illness Date Seen by Provider: Oct 02, 2021 Time Seen by Provider: 01:08 Initial Comments Patient to the ER by [facility] with chief complaint that he called them because of chest pain. He states that he has family been fighting so at least for the last 4 days he has been hanging out in his house and smoking methamphetamines. He was at chest pain nonradiating. No shortness of air no cough fevers chills nausea vomiting diarrhea. EMS reports he was talking to them on route answering questions appropriately. Patient does not contribute to a meaningful history at this time (ALBIN DUARTE) Allergies and Home Medications Allergies Coded Allergies: Penicillins (Verified Allergy, Unknown, 11/09/20) Patient Home Medication List Home Medication List Reviewed: Yes (ALBIN DUARTE) Apixaban (Eliquis) 5 Mg Tablet, 5 MG PO BID Prescribed by: ANN RHOADES on 07/14/21957 Digoxin (Digox) 250 Mcg Tablet, 0.25 MG PO DAILY Prescribed by: ANN RHOADES on 07/14/21957 Diltiazem HCl (Cardizem Cd) 360 Mg Cap.er.24h, 360 MG PO DAILY Prescribed by: ANN RHOADES on 07/14/21957 Furosemide (Furosemide) 40 Mg Tablet, 40 MG PO DAILY@07,17 Prescribed by: ANN RHOADES on 07/14/21957 Metoprolol Succinate (Metoprolol Succinate) 50 Mg Tab.er.24h, 50 MG PO BID Prescribed by: ANN RHOADES on 07/14/21957 Potassium Chloride (Klor-Con M20) 20 Meq Tab.er.prt, 20 MEQ PO BID WITH MEALS Prescribed by: ANN RHOADES on 07/14/21957 Review of Systems Review of Systems Constitutional: No chills, No diaphoresis EENTM: No Blurred Vision, No Double Vision Respiratory: Denies Cough, Denies Orthopnea Cardiovascular: Chest Pain; Denies Lightheadedness Gastrointestinal: Denies Constipated, Denies Diarrhea, Denies Nausea, Denies Vomiting Genitourinary: Denies Discharge, Denies Drainage Musculoskeletal: No back pain, No joint pain (ALBIN DUARTE) All Other Systems Reviewed Negative Unless Noted: Yes (ALBIN DUARTE) Past Bqzqpui-Igpccn-Sjdfdm Hx Patient Social History Substance use?: Yes Substance type: Methamphetamine (ALBIN DUARTE) Immunizations Up To Date Tetanus Booster (TDap): Unknown (ALBIN DUARTE) Past Medical History Surgery/Hospitalization HX: Appendix Surgeries: Yes (HERNIA REPAIR) Abdominal, Appendectomy Respiratory: No Cardiac: Yes (CHF 30-35% EF) Atrial Fibrillation, Cardiomyopathy, High Cholesterol, Hypertension Neurological: No Genitourinary: No Gastrointestinal: Yes Gastroesophageal Reflux Musculoskeletal: No Endocrine: Yes (OBESITY) HEENT: No Cancer: No Psychosocial: Yes (SUBSTANCE ABUSE) Integumentary: Yes (TATTOOS) Blood Disorders: No (ALBIN DUARTE) Family Medical History No Pertinent Family Hx SOCIAL HISTORY: -ETOH--REGULAR USE -DRUGS--METHAMPHETAMINES -SMOKES 1 PPD PAST SURGICAL HISTORY: -APPENDECTOMY -HERNIA REPAIR -CARDIOVERSIONS ECHOCARDIOGRAM 11/13/20--EF 30-35%, NO REGIONAL WALL MOTION ABNORMALITIES. EXTREME NON-COMPLIANCE IN ALL ASPECTS OF CARE (ALBIN DUARTE) Physical Exam Vital Signs Vital Signs - First Documented 10/02/21 10/02/21 01:15 01:53 Temp 36.2 Pulse 77 Resp 22 B/P (MAP) 133/94 (107) Pulse Ox 93 O2 Delivery Room Air FiO2 60 (SHASTA RAMON MD) Vital Signs Capillary Refill : (ALBIN DUARTE) Height, Weight, BMI Height: '" Weight: lbs. oz. kg; 31.00 BMI Method: General Appearance: Anxious, Moderate Distress, Other (Extremely disheveled) HEENT: PERRL/EOMI (3 mm reactive); No Moist Mucous Membranes ( dry oral mucosa cracked lips) Neck: Full Range of Motion, Non Tender Respiratory: Lungs Clear, Normal Breath Sounds, No Accessory Muscle Use, No Respiratory Distress Cardiovascular: Regular Rate, Rhythm, No Edema, Normal Peripheral Pulses Gastrointestinal: Normal Bowel Sounds, Non Tender, Soft Extremity: Normal Capillary Refill, No Pedal Edema Neurologic/Psychiatric: Other (GCS of 10. Patient is caked and dirt. Follows some commands but does not answer with meaningful responses for us.) Skin: Normal Color (ALBIN DUARTE) Focused Exam Sepsis Stage: Sepsis Possible Source: Pulmonary (ALBIN DUARTE) Lactate Level 10/02/21 08:19: Lactic Acid Level 3.98*H (SHASTA RAMON MD) Time of Focused Exam: 05:36 Respiratory: Lungs Clear, Normal Breath Sounds Cardiovascular: Regular Rate, Rhythm, No Edema Capillary Refill: Greater Than 3 Seconds Peripheral Pulses: 2+ Radial Pulses (R), 2+ Radial Pulses (L) Skin: normal color, warm/dry (ALBIN DUARTE) Lactic Acid Level Laboratory Tests Test 10/02/21 05:40 10/02/21 08:19 Lactic Acid Level 4.15 MMOL/L (0.50-2.00) *H 3.98 MMOL/L (0.50-2.00) *H (SHASTA RAMON MD) Within 3hrs of presentation: Admin fluids, Admin ABX, Focus exam, Lactate level (ALBIN DUARTE) Procedures/Interventions Date of ETT Placement: Oct 02, 2021 Time of ETT Placement: 01:40 Intubation Method: orotracheal Tube Size: 8.0 Medications: Etomidate (40mg), Rocuronium (50mg) Positive End Tide CO2: Yes Breath Sounds after Intubation: bilateral-equal Intubation Complications: no complications Post Intubation Xray: Yes (ALBIN DUARTE) Progress/Results/Core Measures Results/Orders Lab Results Laboratory Tests Test 10/02/21 01:20 10/02/21 02:15 10/02/21 02:18 10/02/21 02:32 Range/Units White Blood Count 33.7 *H 4.3-11.0 10^3/uL Red Blood Count 5.53 H 4.30-5.52 10^6/uL Hemoglobin 15.1 13.3-17.7 g/dL Hematocrit 49 40-54 % Mean Corpuscular Volume 88 80-99 fL Mean Corpuscular Hemoglobin 27 25-34 pg Mean Corpuscular Hemoglobin Concent 31 L 32-36 g/dL Red Cell Distribution Width 17.2 H 10.0-14.5 % Platelet Count 409 H 130-400 10^3/uL Mean Platelet Volume 11.1 9.0-12.2 fL Immature Granulocyte % (Auto) 1 % Neutrophils (%) (Auto) 89 H 42-75 % Lymphocytes (%) (Auto) 6 L 12-44 % Monocytes (%) (Auto) 4 0-12 % Eosinophils (%) (Auto) 0 0-10 % Basophils (%) (Auto) 0 0-10 % Neutrophils # (Auto) 30.0 H 1.8-7.8 10^3/uL Lymphocytes # (Auto) 2.0 1.0-4.0 10^3/uL Monocytes # (Auto) 1.3 H 0.0-1.0 10^3/uL Eosinophils # (Auto) 0.0 0.0-0.3 10^3/uL Basophils # (Auto) 0.1 0.0-0.1 10^3/uL Immature Granulocyte # (Auto) 0.4 H 0.0-0.1 10^3/uL Neutrophils % (Manual) 79 % Lymphocytes % (Manual) 5 % Monocytes % (Manual) 2 % Band Neutrophils 13 % Atypical Lymphocytes 1 % Toxic Granulation 2+ Polychromasia SLIGHT Hypochromasia SLIGHT Poikilocytosis SLIGHT Anisocytosis SLIGHT Microcytosis SLIGHT Macrocytosis SLIGHT Crenated Cell SLIGHT Prothrombin Time 40.1 H 12.2-14.7 SEC INR Comment 4.1 H 0.8-1.4 Activated Partial Thromboplast Time 39 H 24-35 SEC Sodium Level 135 135-145 MMOL/L Potassium Level 4.7 3.6-5.0 MMOL/L Chloride Level 99 98-107 MMOL/L Carbon Dioxide Level 11 L 21-32 MMOL/L Anion Gap 25 H 5-14 MMOL/L Blood Urea Nitrogen 39 H 7-18 MG/DL Creatinine 1.32 H 0.60-1.30 MG/DL Estimat Glomerular Filtration Rate 59 BUN/Creatinine Ratio 30 Glucose Level 62 L 70-105 MG/DL Calcium Level 9.8 8.5-10.1 MG/DL Corrected Calcium 10.1 8.5-10.1 MG/DL Magnesium Level 1.8 1.6-2.4 MG/DL Total Bilirubin 4.0 H 0.1-1.0 MG/DL Aspartate Amino Transf (AST/SGOT) 1207 H 5-34 U/L Alanine Aminotransferase (ALT/SGPT) 487 H 0-55 U/L Alkaline Phosphatase 169 H 40-136 U/L Total Creatine Kinase 89986 H 30-200 U/L Troponin I 0.071 H <0.028 NG/ML C-Reactive Protein High Sensitivity 1.00 H 0.00-0.50 MG/DL Total Protein 7.6 6.4-8.2 GM/DL Albumin 3.6 3.2-4.5 GM/DL Serum Alcohol < 10 <10 MG/DL Influenza Type A (RT-PCR) Not Detected Not Detecte Influenza Type B (RT-PCR) Not Detected Not Detecte SARS-CoV-2 RNA (RT-PCR) Not Detected Not Detecte Urine Color YELLOW Urine Clarity CLEAR Urine pH 6.0 5-9 Urine Specific Elysian >=1.030 1.016-1.022 Urine Protein 1+ H NEGATIVE Urine Glucose (UA) NEGATIVE NEGATIVE Urine Ketones NEGATIVE NEGATIVE Urine Nitrite NEGATIVE NEGATIVE Urine Bilirubin 1+ H NEGATIVE Urine Urobilinogen 1.0 < = 1.0 MG/DL Urine Leukocyte Esterase NEGATIVE NEGATIVE Urine RBC (Auto) 3+ H NEGATIVE Urine RBC 25-50 H /HPF Urine WBC 2-5 /HPF Urine Squamous Epithelial Cells 0-2 /HPF Urine Renal Epithelial Cells 0-2 /HPF Urine Crystals NONE /LPF Urine Bacteria FEW H /HPF Urine Casts PRESENT /LPF Urine Hyaline Casts 25-50 H /LPF Urine Granular Casts 0-2 H /LPF Urine Mucus NEGATIVE /LPF Urine Culture Indicated NO Urine Opiates Screen NEGATIVE NEGATIVE Urine Oxycodone Screen NEGATIVE NEGATIVE Urine Methadone Screen NEGATIVE NEGATIVE Urine Propoxyphene Screen NEGATIVE NEGATIVE Urine Barbiturates Screen NEGATIVE NEGATIVE Ur Tricyclic Antidepressants Screen NEGATIVE NEGATIVE Urine Phencyclidine Screen NEGATIVE NEGATIVE Urine Amphetamines Screen POSITIVE H NEGATIVE Urine Methamphetamines Screen POSITIVE H NEGATIVE Urine Benzodiazepines Screen NEGATIVE NEGATIVE Urine Cocaine Screen NEGATIVE NEGATIVE Urine Cannabinoids Screen NEGATIVE NEGATIVE Blood Gas Puncture Site RIGHT RADIAL Blood Gas Patient Temperature 36.6 Arterial Blood pH 7.14 *L 7.37-7.43 Arterial Blood Partial Pressure CO2 48 H 35-45 MMHG Arterial Blood Partial Pressure O2 80 79-93 MMHG Arterial Blood HCO3 16 *L 23-27 MMOL/L Arterial Blood Total CO2 17.2 L 21.0-31.0 MMOL/L Arterial Blood Oxygen Saturation 92 L 94-100 % Arterial Blood Base Excess -11.9 L -2.5-2.5 MMOL/L Michele Test POSITIVE Blood Gas Ventilator Setting NO Blood Gas Inspired Oxygen 2 Test 10/02/21 05:40 10/02/21 06:40 10/02/21 06:55 10/02/21 08:19 Range/Units Lactic Acid Level 4.15 *H 3.98 *H 0.50-2.00 MMOL/L Troponin I 0.085 H <0.028 NG/ML SARS-CoV-2 RNA (RT-PCR) Not Detected Not Detecte Test 10/02/21 09:00 Range/Units Blood Gas Puncture Site LT RAD Blood Gas Patient Temperature 36.2 Arterial Blood pH 7.37 7.37-7.43 Arterial Blood Partial Pressure CO2 31 L 35-45 MMHG Arterial Blood Partial Pressure O2 138 H 79-93 MMHG Arterial Blood HCO3 18 L 23-27 MMOL/L Arterial Blood Total CO2 18.7 L 21.0-31.0 MMOL/L Arterial Blood Oxygen Saturation 99 94-100 % Arterial Blood Base Excess -6.7 L -2.5-2.5 MMOL/L Michele Test YES-POS Blood Gas Ventilator Setting YES Blood Gas Inspired Oxygen 50 (SHASTA RAMON MD) Micro Results Microbiology 10/02/21 Blood Culture - Preliminary, Resulted No growth 10/02/21 Blood Culture - Preliminary, Resulted No growth (SHASTA RAMON MD) My Orders Orders - SHASTA RAMON MD Covid 19 Inhouse Test (10/02/21 06:20) Isolation Central Supply Req (10/02/21 06:20) Meropenem (Merrem 1000 Mg) (10/02/21 06:30) Arterial Blood Gas (10/02/21 07:12) Etomidate Injection (Amidate Injection) (10/02/21 01:13) Fentanyl Inj (Sublimaze Injection) (10/02/21 01:13) Midazolam Injection (Versed Injection) (10/02/21 01:13) Rocuronium 5 Ml Syringe (Rocuronium 5 Ml (10/02/21 01:13) Ekg Tracing (10/02/21 09:02) Aspirin Suppository (Aspirin Suppository (10/02/21 09:02) Vancomycin Injection (Vancomycin Injecti (10/02/21 11:00) Ed Admission (Communication) (10/02/21 10:48) (SHASTA RAMON MD) Medications Given in ED (SHASTA RAMON MD) Vital Signs/I&O 10/02/21 10/02/21 10/02/21 10/02/21 01:15 01:53 01:55 03:34 Temp 36.2 Pulse 77 92 106 77 Resp 22 16 18 B/P (MAP) 133/94 (107) 167/107 Pulse Ox 93 95 96 O2 Delivery Room Air FiO2 60 60 10/02/21 10/02/21 06:49 09:06 Pulse 73 76 Resp 18 18 Pulse Ox 100 100 FiO2 50 40 (SHASTA RAMON MD) Admisison Planning May Need Admission (Planning): 07:11 (SHASTA RAMON MD) Progress Progress Note #1: Time: 01:29 Progress Note Patient is obviously desiccated for hard methamphetamine use. Plan to give him a couple liters of fluids. He seems to have had a acute decrease in his mental status according to what EMS is telling us. Plan to intubate him to protect his airway and get a CT of his head. Progress Note #2: Time: 02:20 Progress Note Tidal volume 470, respiratory rate of 16, PEEP of 6, 60% FiO2 maintaining sats in the mid 90s. Patient is comfortable on a propofol drip. Give him a one-time dose of fentanyl and Versed for amnesia and, analgesia and comfort. Progress Note #3: Time: 05:37 Progress Note Initially it was felt that the white count may be related to his dehydration and, rhabdomyolysis, methamphetamines however after seeing the chest x-ray we elected to initiate a septic work-up. Rocephin and azithromycin, third bag of fluids. There are no beds available for an intubated nontrauma at [facility], [facility], [facility], [facility], [facility], [facility], [facility], [facility], [facility]. We will transition the patient to dayshift and see if a local bed comes available in the morning. (ALBIN DUARTE) Progress Note #1: Time: 07:11 Progress Note Assumed care of patient at shift change from Dr. Duarte. Patient examined, sedated on the ventilator. Propofol. Lungs are clear bilaterally, he is satting 97% on the vent. Heart rate in the 70s. Systolic blood pressure low 100s. He was reswabbed for Covid as his chest x-ray is concerning for Covid pneumonia, a better specimen was reportedly obtained by nursing. Broad-spectrum antibiotics, meropenem ordered. Still getting IV fluids. Will repeat blood gas shortly. Progress Note #2: Time: 08:30 Progress Note Discussed with warehouse order selector, believes that we will have bed availability today for Mr. Valerio. Vital signs remained stable. Covid repeat testing is still negative. Progress Note #3: Time: 09:33 Progress Note EKG changes and marginally elevated troponin discussed with Dr. Cartagena. He is available for consult at this time Progress Note #4: Time: 10:56 Progress Note Discussed with Dr Fortune, will add Vanc; she is going to do que'd orders. I will do consult to eICU. Awaiting call back from Dr Juarez. Currrently patient 94/57 pulse 74; on vent at 40%; PEEP 6; Tv 500, rate of 18 (SHASTA RAMON MD) Initial ECG Impression Date: Oct 02, 2021 Initial ECG Impression Time: 02:34 Initial ECG Rate: 69 Initial ECG Rhythm: Normal Sinus Initial ECG Intervals: QT (471) Initial ECG Impression: Normal, Nonspecific Changes Comment Normal sinus rhythm without clinically relevant ST elevation or depression. (ALBIN DUARTE) EKG : EKG Time: 09:19 Rate: 75 Rhythm: Normal Sinus Intervals MA interval 88 QRS 110 QTc 540 Comment Sinus rhythm with diffuse T wave inversion across the precordium and inferior leads, ST segment depression noted 1 to 2 mm (SHASTA RAMON MD) Diagnostic Imaging Diagonstic Imaging: Xray Plain Films/CT/US/NM/MRI: chest Comments Patchy infiltrate over the right upper lobes. ET tube in good position. [facility] [place] NAME: PAL VALERIO [facility] REC#: [id number] PT STATUS: REG ER : 1980 PHYSICIAN: ALBIN DUARTE MD ADMIT DATE: 10/02/21/ER Draft Date of Exam:10/02/21 CHEST 1 VIEW, AP/PA ONLY INDICATION: Intubated. TECHNIQUE: Single view chest 2:09 AM. CORRELATION STUDY: 07/09/2021 FINDINGS: Endotracheal tube projects over the trachea interposed between the clavicles. Gastric tube is in the left upper quadrant, tip not visualized. Heart size and mediastinum are enlarged and prominent. Vasculature is increased. Bilateral pulmonary infiltrate-like opacities are present. Most pronounced involving the right upper lung field. IMPRESSION: 1. Interval intubation and placement of nasogastric tube. 2. Development of extensive bilateral pulmonary infiltrate-like opacities most pronounced involving the right upper lobe. Could reflect a multilobe pneumonia, hemorrhage, edema and/or ARDS. Dictated on workstation # [id number] Dict: 10/02/21 0436 Trans: 10/02/21 0442 GRICELDA [id number] Interpreted by: TANIA LARSON DO Electronically signed by: Reviewed: Reviewed by Sd Diagonstic Imaging: CT Plain Films/CT/US/NM/MRI: head Comments [facility] [place] NAME: PAL VALERIO [facility] REC#: [id number] PT STATUS: REG ER : 1980 PHYSICIAN: ALBIN DUARTE MD ADMIT DATE: 10/02/21/ER Draft Date of Exam:10/02/21 CT HEAD WO PROCEDURE: CT head without contrast. TECHNIQUE: Multiple contiguous axial images were obtained through the brain without the use of intravenous contrast. Auto Exposure Controls were utilized during the CT exam to meet ALARA standards for radiation dose reduction. INDICATION: 41-year-old male, altered mental status. Intubated. CORRELATION: None FINDINGS: There is no midline shift or mass effect. The ventricles and sulci are unremarkable. No evidence for acute intracranial hemorrhage, abnormal extra-axial fluid collections or cerebral edema is present. The basilar cisterns are unremarkable. The bony calvarium is intact. There is near-complete opacification of bilateral maxillary sinuses with partial opacification of multiple ethmoid air cells. Sphenoid sinus mucosal thickening. Sclerotic bilateral mastoid air cells. Endotracheal tube present. IMPRESSION: Negative appearing noncontrast CT of the head. Marked sinusitis. Initial report was provided by [employer]. Dictated on workstation # [id number] Dict: 10/02/21 0437 Trans: 10/02/21 0440 DO [id number] Interpreted by: TANIA LARSON DO Electronically signed by: Reviewed: Reviewed by Me (ALBIN DUARTE) Departure Communication (Admissions) Time/Spoke to Admitting Phy: 10:[address] fortune, add Vanc, discuss with EICU Time/Spoke to Consulting Phy: 09:[address] Cartagena, he will review the second EKG (SHASTA RAMNO MD) Impression Primary Impression: Pneumonia Qualified Codes: J18.9 - Pneumonia, unspecified organism Additional Impressions: Encephalopathy acute Methamphetamine abuse Rhabdomyolysis Qualified Codes: M62.82 - Rhabdomyolysis Dehydration Elevated troponin Disposition: ADMITTED INPATIENT Condition: Critical Admissions Decision to Admit Reason: Admit from ER (General) Decision to Admit/Date: Oct 02, 2021 Time/Decision to Admit Time: 10:51 (SHASTA RAMON MD) Departure-Patient Inst. Referrals: [facility] (PCP/Family) Primary Care Physician ALBIN DUARTE Oct 02, 2021 01:30 SHASTA RAMON MD Oct 02, 2021 07:12
[2021-10-02 01:36] LABS: WHITE BLOOD COUNT 33.7 10^3/uL (4.3-11.0)
[2021-10-02] MEDS ORDERED: PROPOFOL DRIP (ICU) 100 ML IV ONE (01:47)
[2021-10-02 01:52] LABS: ALBUMIN 3.6 GM/DL (3.2-4.5); CHLORIDE 99 MMOL/L (98-107); POTASSIUM 4.7 MMOL/L (3.6-5.0); SODIUM 135 MMOL/L (135-145)
[2021-10-02 01:53] VITALS: BP 167/107
[2021-10-02 01:54] LABS: CALCIUM 9.8 MG/DL (8.5-10.1)
[2021-10-02 01:55] LABS: GLUCOSE 62 MG/DL (70-105); TOTAL PROTEIN 7.6 GM/DL (6.4-8.2)
[2021-10-02] MEDS: PROPOFOL DRIP (ICU) 100 ML IV SCH ×3 (01:55→14:23)
[2021-10-02 01:56] LABS: CARBON DIOXIDE 11 MMOL/L (21-32)
[2021-10-02 01:58] LABS: ALKALINE PHOSPHATASE 169 U/L (40-136)
[2021-10-02 01:59] LABS: CREATININE SERUM 1.32 MG/DL (0.60-1.30); GFR ESTIMATED 59
[2021-10-02 02:00] LABS: BUN/CREATININE RATIO 30
[2021-10-02 02:01] LABS: MAGNESIUM 1.8 MG/DL (1.6-2.4)
[2021-10-02 02:02] LABS: ALANINE AMINOTRANSFERASE 487 U/L (0-55)
[2021-10-02 02:12] LABS: ATYPICAL LYMPHOCYTES 1 %; BAND NEUTROPHILS 13 %; HYPOCHROMASIA SLIGHT; LYMPHOCYTES % (MANUAL) 5 %; MONOCYTES % (MANUAL) 2 %; NEUTROPHILS % (MANUAL) 79 %; POIKILOCYTOSIS SLIGHT; POLYCHROMASIA SLIGHT
[2021-10-02 02:13] LABS: ANISOCYTOSIS SLIGHT; CRENATED RBC SLIGHT; MICROCYTOSIS SLIGHT; TOXIC GRANULATION/VACUOLAZATIO 2+
[2021-10-02 02:26] LABS: CLARITY,URINE CLEAR; COLOR,URINE YELLOW; GLUCOSE, URINE (UA) NEGATIVE (NEGATIVE); KETONES,URINE NEGATIVE (NEGATIVE); LEUKOCYTE ESTERASE ,URINE NEGATIVE (NEGATIVE); NITRITE,URINE NEGATIVE (NEGATIVE); PROTEIN,URINE 1+ (NEGATIVE)
[2021-10-02] MEDS ORDERED: cefTRIAXone 1 GM PRE-MIX 50 ML IV ONE (02:30)
[2021-10-02] MEDS ORDERED: AZITHROMYCIN INJECTION 500 MG in NS (IVPB) 250 ML IV ONE (02:30)
[2021-10-02 02:38] LABS: BILIRUBIN,URINE 1+ (NEGATIVE)
[2021-10-02 02:39] LABS: BACTERIA,URINE FEW /HPF; GRANULAR CASTS,URINE 0-2 /LPF; HYALINE CASTS, URINE 25-50 /LPF; RBC,URINE 25-50 /HPF; RENAL EPITHELIAL CELLS,URINE 0-2 /HPF; SQUAMOUS EPITHELIAL CELL,UR 0-2 /HPF
[2021-10-02 02:42] LABS: AMPHETAMINE SCREEN, URINE POSITIVE (NEGATIVE); BARBITURATE SCREEN URINE NEGATIVE (NEGATIVE); BENZODIAZEPINES SCREEN URINE NEGATIVE (NEGATIVE); CANNABINOID SCREEN, URINE NEGATIVE (NEGATIVE); COCAINE SCREEN URINE NEGATIVE (NEGATIVE); METHADONE STAT NEGATIVE (NEGATIVE); METHAMPHETAMINE SCREEN URINE S POSITIVE (NEGATIVE); OPIATE SCREEN URINE NEGATIVE (NEGATIVE); OXYCODONE STAT NEGATIVE (NEGATIVE); PROPOXYPHENE STAT NEGATIVE (NEGATIVE); TRICYCLIC ANTIDEPRESSANTS SCRE NEGATIVE (NEGATIVE)
[2021-10-02 02:42] LABS: ABG BASE EXCESS -11.9 MMOL/L (-2.5-2.5); ABG OXYGEN SATURATION 92 % (94-100); ABG PCO2 48 MMHG (35-45); ABG PO2 80 MMHG (79-93); ABG TCO2 17.2 MMOL/L (21.0-31.0)
[2021-10-02 02:43] LABS: ALLENS TEST POSITIVE; INSPIRED O2 2; PATIENT TEMP 36.6; VENTILATOR NO
[2021-10-02 02:44] LABS: ABG PH 7.14 (7.37-7.43)
[2021-10-02 03:19] LABS: CREATINE KINASE 14412 U/L (30-200)
--- NOTE | 2021-10-02 04:40 | Diagnostic Imaging Report ---
PROCEDURE: CT head without contrast. TECHNIQUE: Multiple contiguous axial images were obtained through the brain without the use of intravenous contrast. Auto Exposure Controls were utilized during the CT exam to meet ALARA standards for radiation dose reduction. INDICATION: 41-year-old male, altered mental status. Intubated. CORRELATION: None FINDINGS: There is no midline shift or mass effect. The ventricles and sulci are unremarkable. No evidence for acute intracranial hemorrhage, abnormal extra-axial fluid collections or cerebral edema is present. The basilar cisterns are unremarkable. The bony calvarium is intact. There is near-complete opacification of bilateral maxillary sinuses with partial opacification of multiple ethmoid air cells. Sphenoid sinus mucosal thickening. Sclerotic bilateral mastoid air cells. Endotracheal tube present. IMPRESSION: Negative appearing noncontrast CT of the head. Marked sinusitis. Initial report was provided by Ashley. Dictated by: Dictated on workstation # [id number]
--- NOTE | 2021-10-02 04:42 | Diagnostic Imaging Report ---
INDICATION: Intubated. TECHNIQUE: Single view chest 2:09 AM. CORRELATION STUDY: 07/09/2021 FINDINGS: Endotracheal tube projects over the trachea interposed between the clavicles. Gastric tube is in the left upper quadrant, tip not visualized. Heart size and mediastinum are enlarged and prominent. Vasculature is increased. Bilateral pulmonary infiltrate-like opacities are present. Most pronounced involving the right upper lung field. IMPRESSION: 1. Interval intubation and placement of nasogastric tube. 2. Development of extensive bilateral pulmonary infiltrate-like opacities most pronounced involving the right upper lobe. Could reflect a multilobe pneumonia, hemorrhage, edema and/or ARDS. Dictated by: Dictated on workstation # [id number]
[2021-10-02] MEDS ORDERED: NS IV 1000 ML 1,000 ML IV ONE (06:00)
[2021-10-02] MEDS ORDERED: MEROPENEM 1,000 MG in NS (IVPB) 100 ML IV ONE (06:30)
[2021-10-02 08:04] LABS: INR 4.1 (0.8-1.4); PROTHROMBIN TIME PATIENT 40.1 SEC (12.2-14.7)
[2021-10-02] MEDS ORDERED: ASPIRIN 300 MG (5 GR) SUPPOSITORY PR STA (09:02)
[2021-10-02 09:06] LABS: ABG BASE EXCESS -6.7 MMOL/L (-2.5-2.5); ABG OXYGEN SATURATION 99 % (94-100); ABG PCO2 31 MMHG (35-45); ABG PH 7.37 (7.37-7.43); ABG PO2 138 MMHG (79-93); ABG TCO2 18.7 MMOL/L (21.0-31.0)
[2021-10-02 09:09] LABS: ALLENS TEST YES-POS; INSPIRED O2 50; PATIENT TEMP 36.2; VENTILATOR YES
[2021-10-02] MEDS ORDERED: VANCOMYCIN INJECTION 1,000 MG in NS (IVPB) 250 ML IV SCH (11:00)
--- NOTE | 2021-10-02 11:09 | History & Physical-Hospitalist ---
History of Present Illness HPI/Chief Complaint Chief complaint: Respiratory failure History present illness: This is a 41-year-old white male known to me from multiple hospital stays all of them related to methamphetamine use who presented to the ER with respiratory failure. He was intubated. He has a history of congestive heart failure and atrial fibrillation. ICU has been consulted along with cardiology. He on the vent. Source: RN/MD Exam Limitations: clinical condition (Intubated) Date Seen 10/02/21 Time Seen by a Provider: 12:30 Attending Physician [facility] [place] Referring Physician Date of Admission Home Medications & Allergies Home Medications Reviewed patient Home Medication Reconciliation performed by pharmacy medication reconciliations animal technician and/or nursing. Patients Allergies have been reviewed. Allergies Allergies Coded Allergies Penicillins (Verified Allergy, Unknown, 11/09/20) Past Wdkmvbp-Jijwub-Hyfwow Hx Patient Social History Marrital Status: single Employed/Student: unemployed Smoking Status: Current Everyday Smoker Substance use?: Yes Substance type: Methamphetamine Alcohol Use?: Unable to obtain Pt feels they are or have been: Unable to obtain Immunizations Up To Date Date of Influenza Vaccine: Aug 09, 2020 Tetanus Booster (TDap): Less Than 5 Years Hepatitis A: No Hepatitis B: No Current Status Advance Directives: No Communicates: Verbally Primary Language: Tajik Preferred Spoken Language: Tajik Past Medical History Surgeries: Abdominal, Appendectomy Atrial Fibrillation, Cardiomyopathy, High Cholesterol, Hypertension Gastroesophageal Reflux Blood Disorders: No AF Meth use Family Medical History No Pertinent Family Hx SOCIAL HISTORY: -ETOH--REGULAR USE -DRUGS--METHAMPHETAMINES -SMOKES 1 PPD PAST SURGICAL HISTORY: -APPENDECTOMY -HERNIA REPAIR -CARDIOVERSIONS ECHOCARDIOGRAM 11/13/20--EF 30-35%, NO REGIONAL WALL MOTION ABNORMALITIES. EXTREME NON-COMPLIANCE IN ALL ASPECTS OF CARE Review of Systems ROS-Unable to Obtain: Intubated Constitutional: see HPI Physical Exam Physical Exam Vital Signs Vital Signs - First Documented 10/02/21 10/02/21 01:15 01:53 Temp 36.2 Pulse 77 Resp 22 B/P (MAP) 133/94 (107) Pulse Ox 93 O2 Delivery Room Air FiO2 60 Capillary Refill : Greater Than 3 Seconds Height, Weight, BMI Height: '" Weight: lbs. oz. kg; 31.00 BMI Method: General Appearance: Chronically ill, Other (Sedated and intubated) Respiratory: No Accessory Muscle Use, No Respiratory Distress, Decreased Breath Sounds Cardiovascular: Regular Rate, Rhythm Results Results/Procedures Labs Laboratory Tests 10/02/21 01:20 10/02/21 11:45 Patient resulted labs reviewed. Assessment/Plan Admission Diagnosis Assessment: Acute respiratory failure requiring intubation Acute respiratory acidosis with metabolic acidosis Severe sepsis Bilateral pneumonia Leukocytosis 33,000 Acute rhabdomyolysis Elevated troponin Coagulopathy INR 4.1 Bandemia Liver shock Atrial fibrillation currently rate controlled Congestive heart failure Methamphetamine use Plan: Vent management appreciated by eICU Poor prognosis Multisystem organ failure noted Admission Status: Inpatient Order (span 2 midnights) Reason for Inpatient Admission: Multisystem organ failure Diagnosis/Problems Diagnosis/Problems (1) Severe sepsis (2) Shock liver (3) Respiratory failure (4) Methamphetamine abuse Status: Acute (5) Encephalopathy acute Status: Acute (6) Pneumonia Status: Acute Qualifiers: Pneumonia type: due to unspecified organism Laterality: right Lung location: upper lobe of lung Qualified Codes: J18.9 - Pneumonia, unspecified organism (7) Rhabdomyolysis Status: Acute Qualifiers: Rhabdomyolysis type: non-traumatic Qualified Codes: M62.82 - Rhabdomyolysis (8) Dehydration Status: Acute (9) Elevated troponin Status: Acute (10) Sepsis (11) NICM (nonischemic cardiomyopathy) Status: Chronic (12) Acute on chronic systolic heart failure Status: Acute (13) Noncompliance with medication regimen Status: Chronic (14) Substance abuse Status: Chronic (15) Cardiomyopathy Status: Chronic (16) Acute kidney injury Status: Acute (17) Paroxysmal atrial fibrillation Status: Chronic BK COLE DO Oct 02, 2021 11:09
[2021-10-02] MEDS ORDERED: cefTRIAXone 2,000 MG in NS (IVPB) 50 ML IV SCH (11:30)
--- NOTE | 2021-10-02 11:37 | Consultation-Cardiology ---
HPI-Cardiology Cardiology Consultation: Date of Consultation 10/02/2021 Date of Admission 10/02/2021 Attending Physician Lulu Parsons DO Admitting Physician [facility] Consulting Physician DONAVAN RODRIGUEZ JR, MD HPI: Time Seen by a Provider: 11:31 Chief Complaint: Reason for consultation: Abnormal troponin level and abnormal electrocardiogram. I saw Cralos in the emergency room this morning. He is currently intubated and sedated. I obtained the history from the medical record as well as the emergency room physician. I have seen him during previous hospitalizations. Apparently, earlier this morning the patient was at home and called 911. He was found to have altered mental status by EMS and was brought to the emergency room for further evaluation. By the time he arrived in the emergency room, his mental status had deteriorated and he was intubated and sedated in the emergency room for airway protection. We do know the the patient has a history of multidrug abuse. He has also been noncompliant with medical therapy and prescription medications. During his evaluation, he had troponin levels drawn which were found to be borderline elevated. He also had 2 electrocardiograms which showed progressive worsening of anterolateral T wave inversion. As such, a cardiology consultation was requested. Apparently, the patient was not able to give any history when he presented to the emergency room due to his altered mental status. Certain portions of this document may have been dictated utilizing voice recognition technology. Inherent to this technology, typographical and grammatical errors may exist. As much as I am diligent to identify and correct these mistakes, some errors may remain in the document. Review of Systems-Cardiology Review of Systems Other comments Not obtainable due to the patient's clinical status. All Other Systems Reviewed Negative Unless Noted: Yes [id number] Hx Patient Social History 2nd Hand Smoke Exposure: Yes Have you traveled recently?: No Alcohol Use?: Unable to obtain Substance type: Methamphetamine Pt feels they are or have been: Unable to obtain Immunizations Up To Date Tetanus Booster (TDap): Unknown Date of Influenza Vaccine: Aug 09, 2020 Past Medical History PMH As described under Assessment. Family Medical History Family Medical History: He states his father of heart failure in his 50s and he had a brother who of cardiomyopathy in his 40s. (per previous visit) Allergies and Home Medications Allergies Coded Allergies: Penicillins (Verified Allergy, Unknown, 11/09/20) Patient Home Medication List Home Medication List Reviewed: Yes Apixaban (Eliquis) 5 Mg Tablet, 5 MG PO BID Prescribed by: ANN RHOADES on 07/14/21957 Digoxin (Digox) 250 Mcg Tablet, 0.25 MG PO DAILY Prescribed by: ANN RHOADES on 07/14/21957 Diltiazem HCl (Cardizem Cd) 360 Mg Cap.er.24h, 360 MG PO DAILY Prescribed by: ANN RHOADES on 07/14/21957 Furosemide (Furosemide) 40 Mg Tablet, 40 MG PO DAILY@07,17 Prescribed by: ANN RHOADES on 07/14/21957 Metoprolol Succinate (Metoprolol Succinate) 50 Mg Tab.er.24h, 50 MG PO BID Prescribed by: ANN RHOADES on 07/14/21957 Potassium Chloride (Klor-Con M20) 20 Meq Tab.er.prt, 20 MEQ PO BID WITH MEALS Prescribed by: ANN RHOADES on 07/14/21957 Exam Vital Signs Vital Signs Date Time Temp Pulse Resp B/P (MAP) Pulse Ox O2 Delivery O2 Flow Rate FiO2 10/02/21 09:06 76 18 100 40 10/02/21 01:55 167/107 10/02/21 01:15 36.2 Room Air Physical Exam General: Intubated and sedated. Well nourished and appears stated age. Eye: Conjunctivae are clear. There are no xanthelasma. HENT: There are some abrasions on his nose and it appears as though he may have had epistaxis. Carotid pulsations 2/2 without bruits. Neck: Jugular venous pressure does not appear elevated. No thyromegaly appreciated. Respiratory: Symmetrical expansion bilaterally. Coarse breath sounds due to the ventilator. Cardiovascular: Normal rate. Regular rhythm. No murmur. No gallop. Point of maximal impulse is not appear displaced. Good pulses equal in all extremities. No edema. Gastrointestinal: Soft. Normal bowel sounds. Skin: Skin turgor is normal. There is no pallor. Musculoskeletal: No obvious deformities. Neurologic: Intubated and sedated. Psychiatric: Not obtainable due to clinical status. Labs Laboratory Tests Test 10/02/21 01:20 10/02/21 02:15 10/02/21 02:18 10/02/21 02:32 Range/Units White Blood Count 33.7 *H 4.3-11.0 10^3/uL Red Blood Count 5.53 H 4.30-5.52 10^6/uL Hemoglobin 15.1 13.3-17.7 g/dL Hematocrit 49 40-54 % Mean Corpuscular Volume 88 80-99 fL Mean Corpuscular Hemoglobin 27 25-34 pg Mean Corpuscular Hemoglobin Concent 31 L 32-36 g/dL Red Cell Distribution Width 17.2 H 10.0-14.5 % Platelet Count 409 H 130-400 10^3/uL Mean Platelet Volume 11.1 9.0-12.2 fL Immature Granulocyte % (Auto) 1 % Neutrophils (%) (Auto) 89 H 42-75 % Lymphocytes (%) (Auto) 6 L 12-44 % Monocytes (%) (Auto) 4 0-12 % Eosinophils (%) (Auto) 0 0-10 % Basophils (%) (Auto) 0 0-10 % Neutrophils # (Auto) 30.0 H 1.8-7.8 10^3/uL Lymphocytes # (Auto) 2.0 1.0-4.0 10^3/uL Monocytes # (Auto) 1.3 H 0.0-1.0 10^3/uL Eosinophils # (Auto) 0.0 0.0-0.3 10^3/uL Basophils # (Auto) 0.1 0.0-0.1 10^3/uL Immature Granulocyte # (Auto) 0.4 H 0.0-0.1 10^3/uL Neutrophils % (Manual) 79 % Lymphocytes % (Manual) 5 % Monocytes % (Manual) 2 % Band Neutrophils 13 % Atypical Lymphocytes 1 % Toxic Granulation 2+ Polychromasia SLIGHT Hypochromasia SLIGHT Poikilocytosis SLIGHT Anisocytosis SLIGHT Microcytosis SLIGHT Macrocytosis SLIGHT Crenated Cell SLIGHT Prothrombin Time 40.1 H 12.2-14.7 SEC INR Comment 4.1 H 0.8-1.4 Activated Partial Thromboplast Time 39 H 24-35 SEC Sodium Level 135 135-145 MMOL/L Potassium Level 4.7 3.6-5.0 MMOL/L Chloride Level 99 98-107 MMOL/L Carbon Dioxide Level 11 L 21-32 MMOL/L Anion Gap 25 H 5-14 MMOL/L Blood Urea Nitrogen 39 H 7-18 MG/DL Creatinine 1.32 H 0.60-1.30 MG/DL Estimat Glomerular Filtration Rate 59 BUN/Creatinine Ratio 30 Glucose Level 62 L 70-105 MG/DL Calcium Level 9.8 8.5-10.1 MG/DL Corrected Calcium 10.1 8.5-10.1 MG/DL Magnesium Level 1.8 1.6-2.4 MG/DL Total Bilirubin 4.0 H 0.1-1.0 MG/DL Aspartate Amino Transf (AST/SGOT) 1207 H 5-34 U/L Alanine Aminotransferase (ALT/SGPT) 487 H 0-55 U/L Alkaline Phosphatase 169 H 40-136 U/L Total Creatine Kinase 38762 H 30-200 U/L Troponin I 0.071 H <0.028 NG/ML C-Reactive Protein High Sensitivity 1.00 H 0.00-0.50 MG/DL Total Protein 7.6 6.4-8.2 GM/DL Albumin 3.6 3.2-4.5 GM/DL Serum Alcohol < 10 <10 MG/DL Influenza Type A (RT-PCR) Not Detected Not Detecte Influenza Type B (RT-PCR) Not Detected Not Detecte SARS-CoV-2 RNA (RT-PCR) Not Detected Not Detecte Urine Color YELLOW Urine Clarity CLEAR Urine pH 6.0 5-9 Urine Specific [place] >=1.030 1.016-1.022 Urine Protein 1+ H NEGATIVE Urine Glucose (UA) NEGATIVE NEGATIVE Urine Ketones NEGATIVE NEGATIVE Urine Nitrite NEGATIVE NEGATIVE Urine Bilirubin 1+ H NEGATIVE Urine Urobilinogen 1.0 < = 1.0 MG/DL Urine Leukocyte Esterase NEGATIVE NEGATIVE Urine RBC (Auto) 3+ H NEGATIVE Urine RBC 25-50 H /HPF Urine WBC 2-5 /HPF Urine Squamous Epithelial Cells 0-2 /HPF Urine Renal Epithelial Cells 0-2 /HPF Urine Crystals NONE /LPF Urine Bacteria FEW H /HPF Urine Casts PRESENT /LPF Urine Hyaline Casts 25-50 H /LPF Urine Granular Casts 0-2 H /LPF Urine Mucus NEGATIVE /LPF Urine Culture Indicated NO Urine Opiates Screen NEGATIVE NEGATIVE Urine Oxycodone Screen NEGATIVE NEGATIVE Urine Methadone Screen NEGATIVE NEGATIVE Urine Propoxyphene Screen NEGATIVE NEGATIVE Urine Barbiturates Screen NEGATIVE NEGATIVE Ur Tricyclic Antidepressants Screen NEGATIVE NEGATIVE Urine Phencyclidine Screen NEGATIVE NEGATIVE Urine Amphetamines Screen POSITIVE H NEGATIVE Urine Methamphetamines Screen POSITIVE H NEGATIVE Urine Benzodiazepines Screen NEGATIVE NEGATIVE Urine Cocaine Screen NEGATIVE NEGATIVE Urine Cannabinoids Screen NEGATIVE NEGATIVE Blood Gas Puncture Site RIGHT RADIAL Blood Gas Patient Temperature 36.6 Arterial Blood pH 7.14 *L 7.37-7.43 Arterial Blood Partial Pressure CO2 48 H 35-45 MMHG Arterial Blood Partial Pressure O2 80 79-93 MMHG Arterial Blood HCO3 16 *L 23-27 MMOL/L Arterial Blood Total CO2 17.2 L 21.0-31.0 MMOL/L Arterial Blood Oxygen Saturation 92 L 94-100 % Arterial Blood Base Excess -11.9 L -2.5-2.5 MMOL/L Michele Test POSITIVE Blood Gas Ventilator Setting NO Blood Gas Inspired Oxygen 2 Test 10/02/21 05:40 10/02/21 06:40 10/02/21 06:55 10/02/21 08:19 Range/Units Lactic Acid Level 4.15 *H 3.98 *H 0.50-2.00 MMOL/L Troponin I 0.085 H <0.028 NG/ML SARS-CoV-2 RNA (RT-PCR) Not Detected Not Detecte Test 10/02/21 09:00 Range/Units Blood Gas Puncture Site LT RAD Blood Gas Patient Temperature 36.2 Arterial Blood pH 7.37 7.37-7.43 Arterial Blood Partial Pressure CO2 31 L 35-45 MMHG Arterial Blood Partial Pressure O2 138 H 79-93 MMHG Arterial Blood HCO3 18 L 23-27 MMOL/L Arterial Blood Total CO2 18.7 L 21.0-31.0 MMOL/L Arterial Blood Oxygen Saturation 99 94-100 % Arterial Blood Base Excess -6.7 L -2.5-2.5 MMOL/L Michele Test YES-POS Blood Gas Ventilator Setting YES Blood Gas Inspired Oxygen 50 ECG Impression ECG Comment Sinus rhythm with anterolateral T wave inversion. Diagnosis/Problems Diagnosis/Problems (1) Elevated troponin Status: Acute Assessment & Plan: He has a marginally elevated troponin level. This is in the presence of significant elevation of the creatinine kinase level which may be due to rhabdomyolysis. I suspect the troponin elevation is related to the elevated creatinine kinase level and does not represent an acute myocardial infarction. I do not see any indication for an invasive or noninvasive ischemic evaluation at this time. (2) Abnormal ECG Status: Acute Assessment & Plan: He does have progressive worsening of T wave inversion in the anterolateral leads. His head CT does not show any acute abnormalities. We are not able to obtain any history from the patient. He does have multiple metabolic derangements which could be causing the electrocardiogram changes. Due to his medication noncompliance, he would not be a good candidate for an invasive cardiac evaluation because if he needs to have coronary revascularization, he would need to be compliant with medication. I will order a follow-up electrocardiogram for tomorrow. (3) Paroxysmal atrial fibrillation Status: Chronic Assessment & Plan: He has had intermittent atrial fibrillation during previous hospitalizations. He is supposed to be taking apixaban for stroke prophylaxis and digoxin for rate control. He is currently in sinus rhythm. He will be monitored on telemetry during this admission. (4) Cardiomyopathy Status: Chronic Assessment & Plan: He had a transesophageal echocardiogram on March 28, 2021 that showed an ejection fraction of 40-45%. I recommend we resume his metoprolol succinate which he was supposed to be taking at home once his blood pressures improve. He is currently bordering on hypotension. (5) Acute on chronic systolic heart failure Status: Acute Assessment & Plan: He has diffuse changes on his chest x-ray from the emergency room. Unclear whether or not this could be pulmonary edema and/or infection. Since he will probably be treated with intravenous hydration for the rhabdomyolysis, we may also need to treat him with intravenous furosemide. (6) Rhabdomyolysis Status: Acute Assessment & Plan: He will need vigorous intravenous hydration due to the rhabdomyolysis. (7) Acute kidney injury Status: Acute Assessment & Plan: Possibly related to the rhabdomyolysis. This will need to be followed closely. (8) Noncompliance with medication regimen Status: Chronic Assessment & Plan: This makes chronic management of his medical conditions extremely difficult. Problem Qualifiers (1) Rhabdomyolysis: Rhabdomyolysis type: non-traumatic Qualified Codes: M62.82 - Rhabdomyolysis DONAVAN RODRIGUEZ JR, MD Oct 02, 2021 11:37
[2021-10-02] MEDS ORDERED: NS (IVPB) 50 ML ONE (12:08)
[2021-10-02] MEDS ORDERED: cefTRIAXone 2,000 MG VIAL ONE (12:08)
[2021-10-02 12:10] LABS: POTASSIUM 4.5 MMOL/L (3.6-5.0)
[2021-10-02 12:11] LABS: CALCIUM 8.5 MG/DL (8.5-10.1)
[2021-10-02 12:16] LABS: CREATININE SERUM 1.21 MG/DL (0.60-1.30)
[2021-10-02 12:18] LABS: MAGNESIUM 1.7 MG/DL (1.6-2.4)
--- NOTE | 2021-10-02 12:18 | Tele-ICU Consult ---
History of Present Illness History of Present Illness Date Seen by Provider: Oct 02, 2021 Time Seen by Provider: 12:13 Date of Admission Allergies and Home Medications Allergies Coded Allergies: Penicillins (Verified Allergy, Unknown, 11/09/20) Home Medications Apixaban 5 Mg Tablet, 5 MG PO BID Prescribed by: ANN RHOADES on 07/14/21957 Digoxin 250 Mcg Tablet, 0.25 MG PO DAILY Prescribed by: ANN RHOADES on 07/14/21957 Diltiazem HCl 360 Mg Cap.er.24h, 360 MG PO DAILY Prescribed by: ANN RHOADES on 07/14/21957 Furosemide 40 Mg Tablet, 40 MG PO DAILY@07,17 Prescribed by: ANN RHOADES on 07/14/21957 Metoprolol Succinate 50 Mg Tab.er.24h, 50 MG PO BID Prescribed by: ANN RHOADES on 07/14/21957 Potassium Chloride 20 Meq Tab.er.prt, 20 MEQ PO BID WITH MEALS Prescribed by: ANN RHOADES on 07/14/21957 Past Medical/Social/Family Hx Patient Social History Substance use?: Yes Substance type: Methamphetamine Alcohol Use?: Unable to obtain Pt stated abuse/neglect: Unable to obtain Immunizations Up To Date Influenza Vaccine Up-to-Date: No; Not Current Tetanus Booster (TDap): Less Than 5 Years Hepatitis A: No Hepatitis B: No TB Skin Test: None Current Status Advance Directives: No Communicates: Verbally Primary Language: Kinyarwanda Preferred Spoken Language: Kinyarwanda Past Medical History AF Meth use Family Medical History Family Hx: SOCIAL HISTORY: -ETOH--REGULAR USE -DRUGS--METHAMPHETAMINES -SMOKES 1 PPD PAST SURGICAL HISTORY: -APPENDECTOMY -HERNIA REPAIR -CARDIOVERSIONS ECHOCARDIOGRAM 11/13/20--EF 30-35%, NO REGIONAL WALL MOTION ABNORMALITIES. EXTREME NON-COMPLIANCE IN ALL ASPECTS OF CARE Review of Systems Constitutional: see HPI Focused Exam Lactate Level 10/02/21 05:40: Lactic Acid Level 4.15*H 10/02/21 08:19: Lactic Acid Level 3.98*H 10/02/21 11:45: Height, Weight, BMI Height: '" Weight: lbs. oz. kg; 31.00 BMI Method: Time of Focused Exam: 05:36 Lactic Acid Level Laboratory Tests Test 10/02/21 08:19 10/02/21 11:45 Lactic Acid Level 3.98 MMOL/L (0.50-2.00) *H Exam Exam Patient acknowledged, consented, and participated in this virtual visit which was conducted using real time audio/video Vital Signs Date Time Temp Pulse Resp B/P (MAP) Pulse Ox O2 Delivery O2 Flow Rate FiO2 10/02/21 11:32 75 98/54 10/02/21 09:06 76 18 100 40 10/02/21 06:49 73 18 100 50 10/02/21 03:34 77 18 96 60 10/02/21 01:55 106 167/107 10/02/21 01:53 92 16 95 60 10/02/21 01:15 36.2 77 22 133/94 (107) 93 Room Air Height & Weight Height: '" Weight: lbs. oz. kg; 31.00 BMI Method: General Appearance: Anxious, Moderate Distress, Other (Extremely disheveled) HEENT: PERRL/EOMI (3 mm reactive); No Moist Mucous Membranes ( dry oral mucosa cracked lips) Neck: Full Range of Motion, Non Tender Respiratory: Lungs Clear, Normal Breath Sounds Cardiovascular: Regular Rate, Rhythm, No Edema Capillary Refill: Greater Than 3 Seconds Peripheral Pulses: 2+ Radial Pulses (R), 2+ Radial Pulses (L) Extremity: Normal Capillary Refill, No Pedal Edema Neurologic/Psychiatric: Other (GCS of 10. Patient is caked and dirt. Follows some commands but does not answer with meaningful responses for us.) Skin: Normal Color Results Lab Laboratory Tests 10/02/21 01:20 10/02/21 11:45 Assessment/Plan Assessment/Plan TELE-ICU note in ER hold setting Patient in need of ICU care, but currently is on hold in ER since there is no ICU beds available. Tele-ICU is providing complimentary help with ICU expertise to ER / PCP / CCM physicians while patient in ER location. Endorsement received from ER MD (Tele-ICU Physician , consultation) Available chart/ vitals / labs / Images reviewed H&P is from ER notes Patient's information available about PMH, Shx, Fhx allergy reviewed in EMR. ROS as per chart and RN report Now in ICU, hemodynamically stable Video assessment done using teleICU camera, rest of exam as per RN Discussed with RN. Consultants: Hospital course: 10/02 ARF ., AMS, PNA , rhabdo A/P Acute resp failure - intubated 10/02 , follow abx and cxr PNA , RUL ( covid neg = abx to cont , cx sent acute mental statu change - CTH 10/02 neg - _ met and amthet in urine Elevated LFT - check hepatitis and HIV panel Rhabd - cont hydration , rewchech labs , might need bicarb gtt FLAKITA - cont hydration Coagulopathy - ? due to liver failure - follow Elv trop - cards consulted Lines : periph (Central Line Necessity Reviewed) Locke: 10/02 OG: + Nutrition: Analgesia: Anxiety/ delirium VTE Prophylaxis: coagulopathic Stress Ulcer Prophylaxis: ppi Glycemic Control: Future plans depend on the clinical course and tests results, and as delineated by bedside physicians. Discussed with [employer] to reach out if any questions or concerns (we cannot fully and completely monitor patient in ER settings A total of 33 minutes of critical care time was devoted to this patient today, required to treat and/or prevent further deterioration of critical care condition ( as above ) . TAE AGUAYO MD Oct 02, 2021 12:18
[2021-10-02] MEDS ORDERED: NS IV 1000 ML 1,000 ML IV SCH (13:00)
[2021-10-02] MEDS ORDERED: PHARMACY TO DOSE IV SCH (14:00)
[2021-10-02] MEDS ORDERED: ACETAMINOPHEN 650 MG SUPP (TYLENOL) PR PRN (14:00)
[2021-10-02] MEDS ORDERED: PROPOFOL DRIP (ICU) 100 ML IV SCH (14:00)
[2021-10-02] MEDS ORDERED: inSUlin ASPART (NovoLOG) 1 UNIT/0.01 ML (CHARGE PER UNIT) SQ SCH (14:00)
[2021-10-02] MEDS: fentaNYL DRIP PRE-MIX 250 ML IV SCH ×2 (14:24→20:54)
[2021-10-02 14:38] VITALS: BP 96/56
[2021-10-02] MEDS ORDERED: VANCOMYCIN 1,750 MG/NS 500 ML IVPB IV NR ×2 (15:00)
--- NOTE | 2021-10-02 16:21 | Consultation - Surgery ---
History of Present Illness History of Present Illness Patient Consulted On(kartik/time) 10/02/21 16:15 Date Seen by Provider: Oct 02, 2021 Time Seen by Provider: 16:15 History of Present Illness Consult requested by Dr. Taveras for central line placement and art line placement. 41 year old male with altered mental status and respiratory failure requiring intubation. Currently intubated and sedated. Requiring pressers. Patient needing central line and arterial line placement. Allergies and Home Medications Allergies Coded Allergies: Penicillins (Verified Allergy, Unknown, 11/09/20) Patient Home Medication List Home Medication List Reviewed: Yes Apixaban (Eliquis) 5 Mg Tablet, 5 MG PO BID Prescribed by: ANN ROHADES on 07/14/21957 Digoxin (Digox) 250 Mcg Tablet, 0.25 MG PO DAILY Prescribed by: ANN RHOADES on 07/14/21957 Diltiazem HCl (Cardizem Cd) 360 Mg Cap.er.24h, 360 MG PO DAILY Prescribed by: ANN RHOADES on 07/14/21957 Furosemide (Furosemide) 40 Mg Tablet, 40 MG PO DAILY@07,17 Prescribed by: ANN RHOADES on 07/14/21957 Metoprolol Succinate (Metoprolol Succinate) 50 Mg Tab.er.24h, 50 MG PO BID Prescribed by: ANN RHOADES on 07/14/21957 Potassium Chloride (Klor-Con M20) 20 Meq Tab.er.prt, 20 MEQ PO BID WITH MEALS Prescribed by: ANN RHOADES on 07/14/21957 Past Rwheoiy-Hqzdhx-Iwvuqj Hx Patient Social History Drug of Choice: METHAMPHETAMINE, MARIJUANA Smoking Status: Current Everyday Smoker Type Used: Cigarettes 2nd Hand Smoke Exposure: Yes Recent Hopitalizations: No Alcohol Use?: Yes Substance type: Amphetamines, Methamphetamine Have you traveled recently?: No Immunizations Up To Date Tetanus Booster (TDap): Unknown Date of Influenza Vaccine: Aug 09, 2020 Surgeries History of Surgeries: Yes (HERNIA REPAIR) Surgeries: Abdominal, Appendectomy Respiratory History of Respiratory Disorde: No Cardiovascular History of Cardiac Disorders: Yes (CHF 30-35% EF) Cardiac Disorders: Atrial Fibrillation, Cardiomyopathy, High Cholesterol, Hypertension Neurological History of Neurological Disord: No Genitourinary History of Genitourinary Disor: No Gastrointestinal History of Gastrointestinal Di: Yes Gastrointestinal Disorders: Gastroesophageal Reflux Musculoskeletal History of Musculoskeletal Dis: No Endocrine History of Endocrine Disorders: Yes (OBESITY) HEENT History of HEENT Disorders: No Cancer History of Cancer: No Psychosocial History of Psychiatric Problem: Yes (SUBSTANCE ABUSE) Integumentary History of Skin or Integumenta: Yes (TATTOOS) Blood Transfusions History of Blood Disorders: No Reviewed Nursing Assessment Reviewed/Agree w Nursing PMH: Yes Family Medical History Significant Family History: No Pertinent Family Hx Review of Systems-General ROS-Unable to Obtain: intubated unable to provide. Physical Exam-General Problems Physical Exam Vital Signs Vital Signs - First Documented 10/02/21 10/02/21 01:15 01:53 Temp 36.2 Pulse 77 Resp 22 B/P (MAP) 133/94 (107) Pulse Ox 93 O2 Delivery Room Air FiO2 60 Capillary Refill : Greater Than 3 Seconds General Appearance: WD/WN, no apparent distress HEENT: PERRL/EOMI, normal ENT inspection (slight blood around nares.) Neck: supple, normal inspection Respiratory: other (equal chest rise, intubated) Cardiovascular: regular rate, rhythm, no JVD Gastrointestinal: soft, no organomegaly Rectal: deferred Back: normal inspection Extremities: normal inspection, no pedal edema Neurologic/Psychiatric: No alert, No oriented x 3; other (intubated and sedated) Skin: normal color, warm/dry Lymphatic: no adenopathy Data Review Labs Laboratory Tests 10/02/21 01:20: White Blood Count 33.7*H, Red Blood Count 5.53H, Hemoglobin 15.1, Hematocrit 49, Mean Corpuscular Volume 88, Mean Corpuscular Hemoglobin 27, Mean Corpuscular Hemoglobin Concent 31L, Red Cell Distribution Width 17.2H, Platelet Count 409H, Mean Platelet Volume 11.1, Immature Granulocyte % (Auto) 1, Neutrophils (%) (Auto) 89H, Lymphocytes (%) (Auto) 6L, Monocytes (%) (Auto) 4, Eosinophils (%) (Auto) 0, Basophils (%) (Auto) 0, Neutrophils # (Auto) 30.0H, Lymphocytes # (Auto) 2.0, Monocytes # (Auto) 1.3H, Eosinophils # (Auto) 0.0, Basophils # (Auto) 0.1, Immature Granulocyte # (Auto) 0.4H, Neutrophils % (Manual) 79, Lymphocytes % (Manual) 5, Monocytes % (Manual) 2, Band Neutrophils 13, Atypical Lymphocytes 1, Toxic Granulation 2+, Polychromasia SLIGHT, Hypochromasia SLIGHT, Poikilocytosis SLIGHT, Anisocytosis SLIGHT, Microcytosis SLIGHT, Macrocytosis SLIGHT, Crenated Cell SLIGHT, Prothrombin Time 40.1H, INR Comment 4.1H, Activated Partial Thromboplast Time 39H, Sodium Level 135, Potassium Level 4.7, Chloride Level 99, Carbon Dioxide Level 11L, Anion Gap 25H, Blood Urea Nitrogen 39H, Creatinine 1.32H, Estimat Glomerular Filtration Rate 59, BUN/Creatinine Ratio 30, Glucose Level 62L, Calcium Level 9.8, Corrected Calcium 10.1, Magnesium Level 1.8, Total Bilirubin 4.0H, Aspartate Amino Transf (AST/SGOT) 1207H, Alanine Aminotransferase (ALT/SGPT) 487H, Alkaline Phosphatase 169H, Total Creatine Kinase 61014V, Troponin I 0.071H, C-Reactive Protein High Sensitivity 1.00H, Total Protein 7.6, Albumin 3.6, Serum Alcohol < 10 10/02/21 02:15: Influenza Type A (RT-PCR) Not Detected, Influenza Type B (RT-PCR) Not Detected, SARS-CoV-2 RNA (RT-PCR) Not Detected 10/02/21 02:18: Urine Color YELLOW, Urine Clarity CLEAR, Urine pH 6.0, Urine Specific [place] >=1.030, Urine Protein 1+H, Urine Glucose (UA) NEGATIVE, Urine Ketones NEGATIVE, Urine Nitrite NEGATIVE, Urine Bilirubin 1+H, Urine Urobilinogen 1.0, Urine Leukocyte Esterase NEGATIVE, Urine RBC (Auto) 3+H, Urine RBC 25-50H, Urine WBC 2-5, Urine Squamous Epithelial Cells 0-2, Urine Renal Epithelial Cells 0-2, Urine Crystals NONE, Urine Bacteria FEWH, Urine Casts PRESENT, Urine Hyaline Casts 25-50H, Urine Granular Casts 0-2H, Urine Mucus NEGATIVE, Urine Culture Indicated NO, Urine Opiates Screen NEGATIVE, Urine Oxycodone Screen NEGATIVE, Urine Methadone Screen NEGATIVE, Urine Propoxyphene Screen NEGATIVE, Urine Barbiturates Screen NEGATIVE, Ur Tricyclic Antidepressants Screen NEGATIVE, Urine Phencyclidine Screen NEGATIVE, Urine Amphetamines Screen POSITIVEH, Urine Methamphetamines Screen POSITIVEH, Urine Benzodiazepines Screen NEGATIVE, Urine Cocaine Screen NEGATIVE, Urine Cannabinoids Screen NEGATIVE 10/02/21 02:32: Blood Gas Puncture Site RIGHT RADIAL, Blood Gas Patient Temperature 36.6, Arterial Blood pH 7.14*L, Arterial Blood Partial Pressure CO2 48H, Arterial Blood Partial Pressure O2 80, Arterial Blood HCO3 16*L, Arterial Blood Total CO2 17.2L, Arterial Blood Oxygen Saturation 92L, Arterial Blood Base Excess -11.9L, Michele Test POSITIVE, Blood Gas Ventilator Setting NO, Blood Gas Inspired Oxygen 2 10/02/21 05:40: Lactic Acid Level 4.15*H 10/02/21 06:40: Troponin I 0.085H 10/02/21 06:55: SARS-CoV-2 RNA (RT-PCR) Not Detected 10/02/21 08:19: Lactic Acid Level 3.98*H 10/02/21 09:00: Blood Gas Puncture Site LT RAD, Blood Gas Patient Temperature 36.2, Arterial Blood pH 7.37, Arterial Blood Partial Pressure CO2 31L, Arterial Blood Partial Pressure O2 138H, Arterial Blood HCO3 18L, Arterial Blood Total CO2 18.7L, Arterial Blood Oxygen Saturation 99, Arterial Blood Base Excess -6.7L, Imchele Test YES-POS, Blood Gas Ventilator Setting YES, Blood Gas Inspired Oxygen 50 10/02/21 11:45: Sodium Level 135, Potassium Level 4.5, Chloride Level 102, Carbon Dioxide Level 16L, Anion Gap 17H, Blood Urea Nitrogen 49H, Creatinine 1.21, Estimat Glomerular Filtration Rate 66, BUN/Creatinine Ratio 40, Glucose Level 103, Lactic Acid Level 2.83*H, Calcium Level 8.5, Magnesium Level 1.7, Total Creatine Kinase 9978#H 10/02/21 14:15: Lactic Acid Level 1.93 Assessment/Plan Assessment/Plan Assessment/Plan acute respiratory failure with altered mental status requiring intubation. Hypotension requiring pressers. methamphetamine use Patient needing central line and arterial line will place Chest x ray after placement. Medical management. Procedures u/s guided right IJ central line placement and right radial u/s guided arterial line placement. Right neck was prepped and draped in sterile fashion. U/s was used to identify anatomy. The right IJ was accessed and dark nonpulsatile blood drawn back. Wire was inserted and needle was removed. 11 blade was used to make skin incision at insertion point. Dilator was advance and removed. Triple lumen catheter was inserted and wire was removed. The catheter was secured and all ports accessed and flushed. Sterile bandage applied. Chest x ray pending. The right radial artery was visualized under u/s after area was prepped and draped. 20 ga artline was used to access artery and wire was advanced and catheter advanced without difficulty. Needle/wire removed. Catheter was secured. LOYD WATSON DO Oct 02, 2021 16:21
--- NOTE | 2021-10-02 16:30 | Diagnostic Imaging Report ---
INDICATION: Intubated, follow-up pneumonia. EXAMINATION: Chest, 10/02/2021. COMPARISON: 10/02/2021 at 2:09 a.m. FINDINGS: Single view of the chest demonstrates diffuse scattered bilateral infiltrates, right worse than left, but improving in the right upper lobe. There is no pneumothorax. There are no effusions. There is cardiomegaly. Pulmonary vasculature is congested although slightly improved. There is a feeding tube coursing beneath the diaphragm with an ET tube in unremarkable positioning. There has been interval placement of a right PICC line with the tip in the mid SVC. IMPRESSION: 1. Improving infiltrates and pulmonary vascular congestion. 2. PICC line tip in the SVC. Dictated by: Dictated on workstation # [id number]
[2021-10-02] MEDS: NOREPINEPHRINE 8 MG/250 ML 250 ML IV SCH ×2 (17:31→21:07)
[2021-10-02] MEDS: ENOXAPARIN 100 MG/1 ML (LOVENOX) SYR SC SCH (17:31)
[2021-10-02] MEDS: NS IV 1000 ML 1,000 ML IV SCH ×2 (17:32→22:19)
[2021-10-02] MEDS: MEROPENEM 500 MG in NS (IVPB) 100 ML IV SCH ×2 (17:32→23:07)
[2021-10-02] MEDS ORDERED: SODIUM BICARB 8.4% 50 MEQ/50 ML (ABBOTT) SYR ONE ×2 (17:54→18:17)
[2021-10-02] MEDS ORDERED: NS IV 1000 ML 1,000 ML ONE (18:17)
[2021-10-02] MEDS: SODIUM BICARBONATE 8.4% VIAL 100 MEQ in 1/2 NS IV SOLUTION 1,000 ML IV SCH (18:51)
[2021-10-02 19:55] LABS: HEPATITIS C ANTIBODY C Non-Reactive (Non-Reactive)
[2021-10-02 19:58] VITALS: BP 97/56
[2021-10-02 21:02] VITALS: BP 97/56
[2021-10-02 23:11] VITALS: BP 98/58
[2021-10-02] MEDS: RT-ALBUTEROL SULF 2.5 MG/3 ML PRE-MIX VIAL INH SCH (23:11)
[2021-10-03] MEDS: PROPOFOL DRIP (ICU) 100 ML IV SCH ×5 (00:53→23:23)
[2021-10-03 01:56] VITALS: BP 104/59
[2021-10-03] MEDS: RT-ALBUTEROL SULF 2.5 MG/3 ML PRE-MIX VIAL INH SCH ×6 (01:56→21:49)
[2021-10-03] MEDS: NS IV 1000 ML 1,000 ML IV SCH ×5 (02:59→18:50)
[2021-10-03] MEDS: VANCOMYCIN 1250 MG/NS 250 ML IVPB IV SCH ×4 (02:59→14:50)
[2021-10-03] MEDS: ENOXAPARIN 100 MG/1 ML (LOVENOX) SYR SC SCH (03:04)
[2021-10-03 03:22] LABS: BASOPHILS % (AUTO) 0 % (0-10); EOSINOPHILS # (AUTO) 0.1 10^3/uL (0.0-0.3); EOSINOPHILS % (AUTO) 0 % (0-10); HEMATOCRIT 44 % (40-54); HEMOGLOBIN 13.4 g/dL (13.3-17.7); LYMPHOCYTES # (AUTO) 1.8 10^3/uL (1.0-4.0); LYMPHOCYTES % (AUTO) 9 % (12-44); MEAN CORPUSCULAR HEMOGLOBIN 27 pg (25-34); MEAN CORPUSCULAR HGB CONC 31 g/dL (32-36); MEAN CORPUSCULAR VOLUME 89 fL (80-99); MEAN PLATELET VOLUME 10.9 fL (9.0-12.2); MONOCYTES # (AUTO) 1.4 10^3/uL (0.0-1.0); MONOCYTES % (AUTO) 7 % (0-12); NEUTROPHILS % (AUTO) 84 % (42-75); PLATELET COUNT 316 10^3/uL (130-400); WHITE BLOOD COUNT 21.5 10^3/uL (4.3-11.0)
[2021-10-03 03:23] LABS: ABG BASE EXCESS -4.4 MMOL/L (-2.5-2.5); ABG OXYGEN SATURATION 97 % (94-100); ABG PCO2 43 MMHG (35-45); ABG PO2 111 MMHG (79-93); ABG TCO2 22.2 MMOL/L (21.0-31.0)
[2021-10-03 03:30] LABS: ABG PH 7.31 (7.37-7.43); ALLENS TEST ART LINE; INSPIRED O2 30%; PATIENT TEMP 36.9; VENTILATOR YES
[2021-10-03 03:34] LABS: ALBUMIN 2.8 GM/DL (3.2-4.5); INR 1.9 (0.8-1.4); POTASSIUM 4.1 MMOL/L (3.6-5.0); PROTHROMBIN TIME PATIENT 22.2 SEC (12.2-14.7)
[2021-10-03 03:35] LABS: CALCIUM 7.9 MG/DL (8.5-10.1)
[2021-10-03 03:37] LABS: TOTAL PROTEIN 5.9 GM/DL (6.4-8.2)
[2021-10-03 03:38] LABS: BILIRUBIN,TOTAL 1.9 MG/DL (0.1-1.0)
[2021-10-03 03:40] LABS: CREATININE SERUM 1.12 MG/DL (0.60-1.30); PHOSPHORUS 3.9 MG/DL (2.3-4.7)
[2021-10-03 03:42] LABS: BILIRUBIN,DIRECT 1.3 MG/DL (0.0-0.3); BILIRUBIN,INDIRECT 0.6 MG/DL
[2021-10-03 03:43] LABS: MAGNESIUM 1.8 MG/DL (1.6-2.4)
[2021-10-03] MEDS: MAGNESIUM 1 GM/100 ML IVPB 100 ML IV SCH (03:46)
[2021-10-03] MEDS: POTASSIUM CL 10MEQ/50ML IVPB 50 ML IV SCH (03:46)
[2021-10-03] MEDS: KCL 20 MEQ TAB (K-DUR) PO SCH (03:46)
[2021-10-03] MEDS: MEROPENEM 500 MG in NS (IVPB) 100 ML IV SCH ×4 (05:16→23:23)
--- NOTE | 2021-10-03 06:08 | Progress Note - Hospitalist ---
Subjective HPI/CC On Admission Date Seen by Provider: Oct 03, 2021 Time Seen by Provider: 10:00 Chief complaint: Respiratory failure History present illness: This is a 41-year-old white male known to me from multiple hospital stays all of them related to methamphetamine use who presented to the ER with respiratory failure. He was intubated. He has a history of congestive heart failure and atrial fibrillation. ICU has been consulted along with cardiology. He on the vent. Subjective/Events-last exam Patient still the same LFTs improved Still on vent Vent settings are 500/18/5/30 percent Checked meds labs Patient will remain intubated because he will require reintubation if extubated due to meth use withdrawal Focused Exam Lactate Level 10/02/21 08:19: Lactic Acid Level 3.98*H 10/02/21 11:45: Lactic Acid Level 2.83*H 10/02/21 14:15: Lactic Acid Level 1.93 Time of Focused Exam: 05:36 Objective Exam Vital Signs Vital Signs Date Time Temp Pulse Resp B/P (MAP) Pulse Ox O2 Delivery O2 Flow Rate FiO2 10/03/21 16:01 97 Mechanical Ventilator 30 10/03/21 16:00 83 19 30.00 10/03/21 15:59 37.0 Capillary Refill : Less Than 3 Seconds General Appearance: No Apparent Distress, WD/WN, Chronically ill Respiratory: Lungs Clear, Normal Breath Sounds Cardiovascular: Regular Rate, Rhythm Results/Procedures Lab Laboratory Tests 10/03/21 03:06 Patient resulted labs reviewed. Assessment/Plan Assessment and Plan Assess & Plan/Chief Complaint Assessment: Acute respiratory failure requiring intubation Acute respiratory acidosis with metabolic acidosis Severe sepsis Bilateral pneumonia Leukocytosis 33,000 Acute rhabdomyolysis Elevated troponin Coagulopathy INR 4.1 Bandemia Liver shock Atrial fibrillation currently rate controlled Congestive heart failure Methamphetamine use Plan: Vent management appreciated by eICU Poor prognosis Multisystem organ failure noted 10/03/2021: Supportive care eICU appreciated Cardiology appreciated Patient will require intubation if extubated too soon to do methamphetamine withdrawal process just like the previous 6 admissions Diagnosis/Problems Diagnosis/Problems (1) Severe sepsis (2) Shock liver (3) Respiratory failure (4) Methamphetamine abuse Status: Acute (5) Encephalopathy acute Status: Acute (6) Pneumonia Status: Acute Qualifiers: Pneumonia type: due to unspecified organism Laterality: right Lung location: upper lobe of lung Qualified Codes: J18.9 - Pneumonia, unspecified organism (7) Rhabdomyolysis Status: Acute Qualifiers: Rhabdomyolysis type: non-traumatic Qualified Codes: M62.82 - Rhabdomyolysis (8) Dehydration Status: Acute (9) Elevated troponin Status: Acute (10) Sepsis (11) NICM (nonischemic cardiomyopathy) Status: Chronic (12) Acute on chronic systolic heart failure Status: Acute (13) Noncompliance with medication regimen Status: Chronic (14) Substance abuse Status: Chronic (15) Cardiomyopathy Status: Chronic (16) Acute kidney injury Status: Acute (17) Paroxysmal atrial fibrillation Status: Chronic BK COLE DO Oct 03, 2021 06:08
[2021-10-03 06:15] VITALS: BP 116/70
--- NOTE | 2021-10-03 07:14 | Diagnostic Imaging Report ---
INDICATION: Pneumonia COMPARISON: 10/02/2021 TECHNIQUE: Single radiograph of the chest dated 10/03/2021. FINDINGS: Endotracheal tube, enteric catheter, and right IJ central venous catheter are stable. The cardiac silhouette is enlarged, though similar to the prior examination. Pulmonary vasculature is unchanged. Patchy bilateral pulmonary opacities are again identified. These appear significantly improved within the right upper lung though minimally worsened within the bilateral lung bases. No large-volume pleural effusion. No pneumothorax. No acute osseous abnormality. IMPRESSION: Persistent multifocal pulmonary opacities. These have significantly improved within the right upper lung though minimally worsened within the bilateral lung bases. Findings are favored to relate to multifocal pneumonia. Edema felt less likely. Unchanged lines and tubes. Dictated by: Dictated on workstation # [id number]
[2021-10-03] MEDS: SODIUM BICARBONATE 8.4% VIAL 100 MEQ in 1/2 NS IV SOLUTION 1,000 ML IV SCH ×2 (07:51→22:07)
[2021-10-03] MEDS: PANTOPRAZOLE 40 MG (PROTONIX) VIAL IV SCH (07:56)
[2021-10-03] MEDS: AZITHROMYCIN INJECTION 250 MG in NS (IVPB) 250 ML IV SCH (08:33)
[2021-10-03] MEDS ORDERED: PANTOPRAZOLE 40 MG (PROTONIX) VIAL IV SCH (09:00)
--- NOTE | 2021-10-03 09:55 | Cardiology Progress Note ---
Progress Note-Cardiology Events since last exam Date Seen by Provider: Oct 03, 2021 Time Seen by Provider: 09:50 Events since last exam I am following him due to elevated troponin level and abnormal electrocardio gram. The patient remains in the intensive care unit intubated and sedated. I spoke to his nurse of today. He is on a small dose of intravenous norepinephrine. He has not had any significant arrhythmias. I am not able to obtain any history from the patient. Certain portions of this document may have been dictated utilizing voice recognition technology. Inherent to this technology, typographical and grammatical errors may exist. As much as I am diligent to identify and correct these mistakes, some errors may remain in the document. Vitals Last set of Vitals Signs Vital Signs 10/03/21 10/03/21 10/03/21 10/03/21 07:40 08:01 09:00 09:23 Temp 36.5 Pulse 80 Resp 5 B/P (MAP) 116/70 Pulse Ox 97 O2 Delivery Mechanical Ventilator O2 Flow Rate 30.00 FiO2 30 Labs Labs Laboratory Tests 10/02/21 11:45 10/03/21 03:06 Exam Vital Signs Vital Signs Date Time Temp Pulse Resp B/P (MAP) Pulse Ox O2 Delivery O2 Flow Rate FiO2 10/03/21 09:23 30 10/03/21 09:00 80 5 97 Mechanical Ventilator 30.00 10/03/21 07:40 36.5 Physical Exam General: Intubated and sedated. Well nourished and appears stated age. Eye: Conjunctivae are clear. There are no xanthelasma. HENT: Normocephalic. Atraumatic. Carotid pulsations 2/2 without bruits. Neck: Jugular venous pressure does not appear elevated. No thyromegaly appreciated. Respiratory: Symmetrical expansion bilaterally. Coarse breath sounds due to the ventilator. Cardiovascular: Normal rate. Regular rhythm. No murmur. No gallop. Point of maximal impulse is not appear displaced. Good pulses equal in all extremities. 1+ bilateral pretibial edema. Gastrointestinal: Soft. Normal bowel sounds. Skin: Skin turgor is normal. There is no pallor. Musculoskeletal: No obvious deformities. Neurologic: Intubated and sedated. Psychiatric: Not obtainable due to clinical status. Labs Laboratory Tests Test 10/02/21 11:45 10/02/21 14:15 10/02/21 18:35 10/02/21 23:14 Range/Units Sodium Level 135 135-145 MMOL/L Potassium Level 4.5 3.6-5.0 MMOL/L Chloride Level 102 98-107 MMOL/L Carbon Dioxide Level 16 L 21-32 MMOL/L Anion Gap 17 H 5-14 MMOL/L Blood Urea Nitrogen 49 H 7-18 MG/DL Creatinine 1.21 0.60-1.30 MG/DL Estimat Glomerular Filtration Rate 66 BUN/Creatinine Ratio 40 Glucose Level 103 70-105 MG/DL Lactic Acid Level 2.83 *H 1.93 0.50-2.00 MMOL/L Calcium Level 8.5 8.5-10.1 MG/DL Magnesium Level 1.7 1.6-2.4 MG/DL Total Creatine Kinase 9978 #H 30-200 U/L Hepatitis A IgM Antibody Non-Reactive Non-Reactive Hepatitis B Surface Antigen Non-Reactive Non-Reactive Hepatitis B Core IgM Antibody Non-Reactive Non-Reactive Hepatitis C Antibody Non-Reactive Non-Reactive HIV (1&2) Ag and Ab Screen Referral Non-Reactive Non-Reactive Glucometer 112 H 109 70-110 MG/DL Test 10/03/21 03:06 Range/Units White Blood Count 21.5 H 4.3-11.0 10^3/uL Red Blood Count 4.93 4.30-5.52 10^6/uL Hemoglobin 13.4 13.3-17.7 g/dL Hematocrit 44 40-54 % Mean Corpuscular Volume 89 80-99 fL Mean Corpuscular Hemoglobin 27 25-34 pg Mean Corpuscular Hemoglobin Concent 31 L 32-36 g/dL Red Cell Distribution Width 17.4 H 10.0-14.5 % Platelet Count 316 130-400 10^3/uL Mean Platelet Volume 10.9 9.0-12.2 fL Immature Granulocyte % (Auto) 1 % Neutrophils (%) (Auto) 84 H 42-75 % Lymphocytes (%) (Auto) 9 L 12-44 % Monocytes (%) (Auto) 7 0-12 % Eosinophils (%) (Auto) 0 0-10 % Basophils (%) (Auto) 0 0-10 % Neutrophils # (Auto) 18.0 H 1.8-7.8 10^3/uL Lymphocytes # (Auto) 1.8 1.0-4.0 10^3/uL Monocytes # (Auto) 1.4 H 0.0-1.0 10^3/uL Eosinophils # (Auto) 0.1 0.0-0.3 10^3/uL Basophils # (Auto) 0.0 0.0-0.1 10^3/uL Immature Granulocyte # (Auto) 0.1 0.0-0.1 10^3/uL Prothrombin Time 22.2 H 12.2-14.7 SEC INR Comment 1.9 H 0.8-1.4 Blood Gas Puncture Site RIGHT ARTLINE Blood Gas Patient Temperature 36.9 Arterial Blood pH 7.31 *L 7.37-7.43 Arterial Blood Partial Pressure CO2 43 35-45 MMHG Arterial Blood Partial Pressure O2 111 H 79-93 MMHG Arterial Blood HCO3 21 L 23-27 MMOL/L Arterial Blood Total CO2 22.2 21.0-31.0 MMOL/L Arterial Blood Oxygen Saturation 97 94-100 % Arterial Blood Base Excess -4.4 L -2.5-2.5 MMOL/L Michele Test ART LINE Blood Gas Ventilator Setting YES Blood Gas Inspired Oxygen 30% Sodium Level 136 135-145 MMOL/L Potassium Level 4.1 3.6-5.0 MMOL/L Chloride Level 106 98-107 MMOL/L Carbon Dioxide Level 16 L 21-32 MMOL/L Anion Gap 14 5-14 MMOL/L Blood Urea Nitrogen 53 H 7-18 MG/DL Creatinine 1.12 0.60-1.30 MG/DL Estimat Glomerular Filtration Rate 72 BUN/Creatinine Ratio 47 Glucose Level 107 H 70-105 MG/DL Calcium Level 7.9 L 8.5-10.1 MG/DL Corrected Calcium 8.9 8.5-10.1 MG/DL Phosphorus Level 3.9 2.3-4.7 MG/DL Magnesium Level 1.8 1.6-2.4 MG/DL Total Bilirubin 1.9 H 0.1-1.0 MG/DL Direct Bilirubin 1.3 H 0.0-0.3 MG/DL Indirect Bilirubin 0.6 MG/DL Aspartate Amino Transf (AST/SGOT) 760 H 5-34 U/L Alanine Aminotransferase (ALT/SGPT) 462 H 0-55 U/L Alkaline Phosphatase 121 40-136 U/L Total Creatine Kinase 7948 #H 30-200 U/L Total Protein 5.9 L 6.4-8.2 GM/DL Albumin 2.8 L 3.2-4.5 GM/DL Diagnosis/Problems Diagnosis/Problems (1) Elevated troponin Status: Acute Assessment & Plan: He has a marginally elevated troponin level. This is in the presence of significant elevation of the creatinine kinase level which may be due to rhabdomyolysis. I suspect the troponin elevation is related to the elevated creatinine kinase level and does not represent an acute myocardial infarction. I do not see any indication for an invasive or noninvasive ischemic evaluation at this time. He is receiving intravenous fluids for the rhabdomyolysis. (2) Abnormal ECG Status: Acute Assessment & Plan: He did have progressive worsening of T wave inversion in the anterolateral leads but this seems to have stabilized. His head CT does not show any acute abnormalities to explain the diffuse T wave changes. We are not able to obtain any history from the patient. He does have multiple metabolic derangements which could be causing the electrocardiogram changes. Due to his medication noncompliance, he would not be a good candidate for an invasive cardiac evaluation because if he needs to have coronary revascularization, he would need to be compliant with medication. (3) Paroxysmal atrial fibrillation Status: Chronic Assessment & Plan: He has had intermittent atrial fibrillation during previous hospitalizations. He is supposed to be taking apixaban for stroke prophylaxis and digoxin and metoprolol for rate control. He is currently in sinus rhythm. He will be monitored on telemetry during this admission. Given his history of methamphetamine overdoses, he is probably not a good candidate for long-term use of digoxin. He was placed on therapeutic dose of enoxaparin at the time of admission due to his paroxysmal atrial fibrillation. I will change this back over to apixaban. (4) Cardiomyopathy Status: Chronic Assessment & Plan: He had a transesophageal echocardiogram on March 28, 2021 that showed an ejection fraction of 40-45%. I recommend we resume his metoprolol succinate which he was supposed to be taking at home once his blood pressures improve. He is currently on norepinephrine for shock. (5) Acute on chronic systolic heart failure Status: Acute Assessment & Plan: He has diffuse changes on his chest x-ray from the emergency room. His chest x-ray from today was improved from admission. I will hold off on treating him with furosemide. (6) Rhabdomyolysis Status: Acute Assessment & Plan: He will need vigorous intravenous hydration due to the rhabdomyolysis. His CK levels are starting to come down. His renal function remains reasonably well-preserved. (7) Acute kidney injury Status: Acute Assessment & Plan: Possibly related to the rhabdomyolysis. This will need to be followed closely. (8) Noncompliance with medication regimen Status: Chronic Assessment & Plan: This makes chronic management of his medical conditions extremely difficult. Problem Qualifiers (1) Rhabdomyolysis: Rhabdomyolysis type: non-traumatic Qualified Codes: M62.82 - Rhabdomyolysis DONAVAN RODRIGUEZ JR, MD Oct 03, 2021 09:55
[2021-10-03 10:45] VITALS: BP 116/66
[2021-10-03] MEDS: NOREPINEPHRINE 8 MG/250 ML 250 ML IV SCH ×2 (11:55→20:32)
--- NOTE | 2021-10-03 13:16 | Tele-ICU Progress Note ---
Subjective Date Seen by a Provider: Oct 03, 2021 Time Seen by a Provider: 13:15 Sepsis Event Evaluation Height, Weight, BMI Height: '" Weight: lbs. oz. kg; 26.14 BMI Method: Focused Exam Lactate Level 10/02/21 08:19: Lactic Acid Level 3.98*H 10/02/21 11:45: Lactic Acid Level 2.83*H 10/02/21 14:15: Lactic Acid Level 1.93 Time of Focused Exam: 05:36 Exam Exam Patient acknowledged, consented, and participated in this virtual visit which was conducted using real time audio/video Vital Signs Date Time Temp Pulse Resp B/P (MAP) Pulse Ox O2 Delivery O2 Flow Rate FiO2 10/03/21 12:49 83 10/03/21 12:00 77 18 96 Mechanical Ventilator 30.00 10/03/21 12:00 97 Mechanical Ventilator 30 10/03/21 11:55 85 116/66 10/03/21 11:45 88 18 96 Mechanical Ventilator 30.00 10/03/21 11:30 108 17 96 Mechanical Ventilator 30.00 10/03/21 11:15 90 18 96 Mechanical Ventilator 30.00 10/03/21 11:00 85 18 96 Mechanical Ventilator 30.00 10/03/21 10:45 86 18 96 Mechanical Ventilator 30.00 10/03/21 10:45 90 19 97 30 10/03/21 10:30 85 18 96 Mechanical Ventilator 30.00 10/03/21 10:15 90 18 95 Mechanical Ventilator 30.00 10/03/21 10:00 81 18 95 Mechanical Ventilator 30.00 10/03/21 09:45 82 18 95 Mechanical Ventilator 30.00 10/03/21 09:30 80 7 96 Mechanical Ventilator 30.00 10/03/21 09:23 30 10/03/21 09:15 87 97 Mechanical Ventilator 30.00 10/03/21 09:00 80 5 97 Mechanical Ventilator 30.00 10/03/21 08:45 90 12 97 Mechanical Ventilator 30.00 10/03/21 08:30 84 9 97 Mechanical Ventilator 30.00 10/03/21 08:15 78 17 97 Mechanical Ventilator 30.00 10/03/21 08:02 97 Mechanical Ventilator 30 10/03/21 08:01 81 116/70 10/03/21 08:00 90 17 97 Mechanical Ventilator 30.00 10/03/21 07:45 84 18 97 Mechanical Ventilator 30.00 10/03/21 07:40 36.5 81 18 97 Mechanical Ventilator 30.00 10/03/21 07:30 83 17 97 Mechanical Ventilator 30.00 10/03/21 07:15 81 18 97 Mechanical Ventilator 30.00 10/03/21 07:00 81 10/03/21 07:00 84 17 97 Mechanical Ventilator 30.00 10/03/21 06:45 80 17 97 Mechanical Ventilator 30.00 10/03/21 06:30 82 17 97 Mechanical Ventilator 30.00 10/03/21 06:15 81 23 97 30 10/03/21 06:15 80 16 97 Mechanical Ventilator 30.00 10/03/21 06:00 80 16 97 Mechanical Ventilator 30.00 10/03/21 05:15 30 10/03/21 05:00 81 15 96 Mechanical Ventilator 30.00 10/03/21 04:00 97 Mechanical Ventilator 30 10/03/21 04:00 96 18 97 Mechanical Ventilator 30.00 10/03/21 03:25 36.9 Mechanical Ventilator 30.00 10/03/21 03:00 82 21 97 Mechanical Ventilator 30.00 10/03/21 02:00 77 16 97 Mechanical Ventilator 30.00 10/03/21 01:56 80 18 97 30 10/03/21 01:25 30 10/03/21 01:00 86 12 97 Mechanical Ventilator 30.00 10/03/21 01:00 81 10/03/21 00:53 80 104/64 10/03/21 00:00 80 13 98 Mechanical Ventilator 30.00 10/02/21 23:11 79 20 97 30 10/02/21 23:05 97 Mechanical Ventilator 30 10/02/21 23:00 36.3 18 97 Mechanical Ventilator 30.00 10/02/21 23:00 82 19 99 Mechanical Ventilator 30.00 10/02/21 22:00 79 14 97 Mechanical Ventilator 30.00 10/02/21 22:00 36.1 10/02/21 21:35 30 10/02/21 21:07 76 88/53 10/02/21 21:02 79 100 40 10/02/21 21:00 74 17 98 Mechanical Ventilator 30.00 10/02/21 20:00 100 Mechanical Ventilator 40 10/02/21 20:00 78 17 98 Mechanical Ventilator 30.00 10/02/21 20:00 36.3 10/02/21 19:58 Mechanical Ventilator 30.00 10/02/21 19:58 79 20 100 40 10/02/21 19:00 Mechanical Ventilator 40.00 Automatic Cuff 10/02/21 19:00 78 16 99 Mechanical Ventilator 40.00 10/02/21 19:00 80 10/02/21 18:00 82 19 99 Mechanical Ventilator 40.00 10/02/21 17:00 109 20 99 Mechanical Ventilator 40.00 10/02/21 16:00 100 Mechanical Ventilator 40 10/02/21 16:00 78 18 Mechanical Ventilator 40.00 10/02/21 15:00 77 27 94/56 100 Mechanical Ventilator 40.00 10/02/21 14:38 77 18 100 40 10/02/21 14:23 80 97/66 10/02/21 14:19 79 10/02/21 14:15 96/55 10/02/21 14:15 100 Mechanical Ventilator 40 10/02/21 14:00 36.2 80 23 99/59 99 I & O 10/03/21 07:00 Intake Total 6407.5 ml Output Total 1855 ml Balance 4552.5 ml Height & Weight Height: '" Weight: lbs. oz. kg; 26.14 BMI Method: General Appearance: Chronically ill, Other (Sedated and intubated) HEENT: PERRL/EOMI (3 mm reactive); No Moist Mucous Membranes ( dry oral mucosa cracked lips) Neck: Full Range of Motion, Non Tender Respiratory: No Accessory Muscle Use, No Respiratory Distress, Decreased Breath Sounds Cardiovascular: Regular Rate, Rhythm Capillary Refill: Less Than 3 Seconds Peripheral Pulses: 2+ Radial Pulses (R), 2+ Radial Pulses (L) Gastrointestinal: soft, no organomegaly Extremity: Normal Capillary Refill, No Pedal Edema Neurologic/Psychiatric: Other (GCS of 10. Patient is caked and dirt. Follows some commands but does not answer with meaningful responses for us.) Skin: Normal Color Results Lab Laboratory Tests 10/02/21 01:20 10/02/21 11:45 10/03/21 03:06 Assessment/Plan Assessment/Plan (Tele-ICU Physician , Progress Note ) Available chart/ vitals / labs / Images reviewed Video assessment done using teleICU camera, rest of exam as per RN Discussed with RN , EXAM PER RN Events overnight : Afebrile FiO2 - I/O = Drips: bicarb +NS Sedation gtt: ( RASS -3 ) fent 100 , propofol 20 VENT SETTINGS and ABG reviewed Not candidate for SBT today REVIEWED Cardiovascular Stability / Sedation Score / FI02/PEEP / ABG / CXR Pressors: , hemodynamically stable Consultants: Hospital course: 10/02 ARF ., AMS, PNA , rhabdo A/P Acute resp failure - intubated 10/02 , follow abxg and cxr PNA , RUL ( covid neg = abx to cont , cx sent acute mental statu change - CTH 10/02 neg - _ met and amthet in urine - on propofol and fentanyl - wit decreasing doses is agitated , not follows coimmands Elevated LFT - neg hepatitis and HIV panel Rhabdo - cont hydration + bicarb gtt FLAKITA - cont hydration Coagulopathy - ? due to liver failure - follow - IMPROVING Elv trop - cards consulted Lines : right IJ 10/02 (Central Line Necessity Reviewed) Locke: 10/02 OG: + Nutrition: Analgesia: Anxiety/ delirium VTE Prophylaxis: coagulopathic Stress Ulcer Prophylaxis: ppi Glycemic Control: Plans in collaboration with bedside consultants and IM MDs. Discussed with RN to reach out if any questions or concerns A total of 35 minutes of critical care time was devoted to this patient today, required to treat and/or prevent further deterioration of critical care condition ( as above) . TAE AGUAYO MD Oct 03, 2021 13:16
[2021-10-03 14:21] VITALS: BP 125/69
[2021-10-03] MEDS: APIXABAN 5 MG (ELIQUIS) TABLET PO SCH (16:50)
[2021-10-03] MEDS ORDERED: APIXABAN 5 MG (ELIQUIS) TABLET PO SCH (21:00)
[2021-10-03] MEDS: fentaNYL DRIP PRE-MIX 250 ML IV SCH (21:05)
[2021-10-04] MEDS: NS IV 1000 ML 1,000 ML IV SCH ×5 (00:27→20:46)
[2021-10-04] MEDS ORDERED: TROUGH ORDER-PHARMACY XX NR (02:00)
[2021-10-04 02:30] LABS: BASOPHILS % (AUTO) 0 % (0-10); EOSINOPHILS # (AUTO) 0.2 10^3/uL (0.0-0.3); EOSINOPHILS % (AUTO) 1 % (0-10); HEMATOCRIT 40 % (40-54); HEMOGLOBIN 12.1 g/dL (13.3-17.7); LYMPHOCYTES # (AUTO) 1.2 10^3/uL (1.0-4.0); LYMPHOCYTES % (AUTO) 9 % (12-44); MEAN CORPUSCULAR HEMOGLOBIN 28 pg (25-34); MEAN CORPUSCULAR HGB CONC 31 g/dL (32-36); MEAN CORPUSCULAR VOLUME 90 fL (80-99); MEAN PLATELET VOLUME 11.1 fL (9.0-12.2); MONOCYTES % (AUTO) 8 % (0-12); NEUTROPHILS # (AUTO) 10.2 10^3/uL (1.8-7.8); NEUTROPHILS % (AUTO) 81 % (42-75); PLATELET COUNT 202 10^3/uL (130-400); WHITE BLOOD COUNT 12.5 10^3/uL (4.3-11.0)
[2021-10-04 02:32] LABS: ABG BASE EXCESS -0.3 MMOL/L (-2.5-2.5); ABG OXYGEN SATURATION 99 % (94-100); ABG PCO2 42 MMHG (35-45); ABG PH 7.38 (7.37-7.43); ABG PO2 126 MMHG (79-93); ABG TCO2 25.5 MMOL/L (21.0-31.0); ALLENS TEST ART LINE; INSPIRED O2 40%; PATIENT TEMP 36.9; VENTILATOR YES
[2021-10-04 02:39] LABS: ALBUMIN 2.4 GM/DL (3.2-4.5); POTASSIUM 3.6 MMOL/L (3.6-5.0)
[2021-10-04 02:40] LABS: CALCIUM 7.8 MG/DL (8.5-10.1)
[2021-10-04 02:43] LABS: BILIRUBIN,TOTAL 1.5 MG/DL (0.1-1.0)
[2021-10-04 02:45] LABS: CREATININE SERUM 0.7 MG/DL (0.60-1.30); PHOSPHORUS 1.6 MG/DL (2.3-4.7)
[2021-10-04 02:48] LABS: MAGNESIUM 1.7 MG/DL (1.6-2.4)
[2021-10-04 02:55] LABS: VANCOMYCIN,TROUGH 13.9 UG/ML (10.0-20.0)
[2021-10-04] MEDS: POTASSIUM CL 10MEQ/50ML IVPB 50 ML IV SCH ×3 (03:13→06:08)
[2021-10-04] MEDS: MAGNESIUM 1 GM/100 ML IVPB 100 ML IV SCH ×3 (03:14→06:08)
[2021-10-04] MEDS: VANCOMYCIN 1250 MG/NS 250 ML IVPB IV SCH ×4 (03:14→15:58)
[2021-10-04] MEDS: PROPOFOL DRIP (ICU) 100 ML IV SCH ×5 (03:14→20:46)
[2021-10-04] MEDS: RT-ALBUTEROL SULF 2.5 MG/3 ML PRE-MIX VIAL INH SCH ×6 (03:16→22:12)
[2021-10-04] MEDS: KCL 20 MEQ TAB (K-DUR) PO SCH (06:08)
[2021-10-04] MEDS: NOREPINEPHRINE 8 MG/250 ML 250 ML IV SCH ×2 (06:08→17:33)
[2021-10-04] MEDS: MEROPENEM 500 MG in NS (IVPB) 100 ML IV SCH ×3 (06:09→17:33)
[2021-10-04] MEDS: fentaNYL DRIP PRE-MIX 250 ML IV SCH ×2 (06:12→15:58)
--- NOTE | 2021-10-04 07:01 | Progress Note - Hospitalist ---
Subjective HPI/CC On Admission Date Seen by Provider: Oct 04, 2021 Time Seen by Provider: 11:30 Chief complaint: Respiratory failure History present illness: This is a 41-year-old white male known to me from multiple hospital stays all of them related to methamphetamine use who presented to the ER with respiratory failure. He was intubated. He has a history of congestive heart failure and atrial fibrillation. ICU has been consulted along with cardiology. He on the vent. Subjective/Events-last exam Patient the same Ventilator settings No major issues Checked meds labs Focused Exam Lactate Level 10/02/21 08:19: Lactic Acid Level 3.98*H 10/02/21 11:45: Lactic Acid Level 2.83*H 10/02/21 14:15: Lactic Acid Level 1.93 Time of Focused Exam: 05:36 Objective Exam Vital Signs Vital Signs Date Time Temp Pulse Resp B/P (MAP) Pulse Ox O2 Delivery O2 Flow Rate FiO2 10/05/21 04:00 21 10/05/21 04:00 95 Mechanical Ventilator 10/05/21 03:40 36.2 10/05/21 02:28 67 18 10/05/21 01:00 21.00 Capillary Refill : Less Than 3 Seconds General Appearance: Chronically ill, Other (Sedated and intubated) Respiratory: Lungs Clear, Normal Breath Sounds Cardiovascular: Regular Rate, Rhythm Results/Procedures Lab Laboratory Tests 10/05/21 03:40 Patient resulted labs reviewed. Assessment/Plan Assessment and Plan Assess & Plan/Chief Complaint Assessment: Acute respiratory failure requiring intubation Acute respiratory acidosis with metabolic acidosis Severe sepsis Bilateral pneumonia Leukocytosis 33,000 Acute rhabdomyolysis Elevated troponin Coagulopathy INR 4.1 Bandemia Liver shock Atrial fibrillation currently rate controlled Congestive heart failure Methamphetamine use Plan: Vent management appreciated by eICU Poor prognosis Multisystem organ failure noted 10/03/2021: Supportive care eICU appreciated Cardiology appreciated Patient will require intubation if extubated too soon to do methamphetamine withdrawal process just like the previous 6 admissions 10/04/2021: Ventilator management Monitor closely Diagnosis/Problems Diagnosis/Problems (1) Severe sepsis (2) Shock liver (3) Respiratory failure (4) Methamphetamine abuse Status: Acute (5) Encephalopathy acute Status: Acute (6) Pneumonia Status: Acute Qualifiers: Pneumonia type: due to unspecified organism Laterality: right Lung locat ion: upper lobe of lung Qualified Codes: J18.9 - Pneumonia, unspecified organism (7) Rhabdomyolysis Status: Acute Qualifiers: Rhabdomyolysis type: non-traumatic Qualified Codes: M62.82 - Rhabdomyolysis (8) Dehydration Status: Acute (9) Elevated troponin Status: Acute (10) Sepsis (11) NICM (nonischemic cardiomyopathy) Status: Chronic (12) Acute on chronic systolic heart failure Status: Acute (13) Noncompliance with medication regimen Status: Chronic (14) Substance abuse Status: Chronic (15) Cardiomyopathy Status: Chronic (16) Acute kidney injury Status: Acute (17) Paroxysmal atrial fibrillation Status: Chronic BK COLE DO Oct 04, 2021 07:01
[2021-10-04 07:03] VITALS: BP 102/59
--- NOTE | 2021-10-04 07:13 | Diagnostic Imaging Report ---
EXAMINATION: Chest 1 view HISTORY: 10/03/2021 COMPARISON: None available. FINDINGS: Heart size and pulmonary vasculature are normal. There are mildly increased bibasilar interstitial opacities. No pleural effusion or pneumothorax. Medical support lines and tubes are unchanged. The osseous structures are intact. IMPRESSION: 1. Mildly increased bibasilar interstitial opacities. Medical support lines and tubes are unchanged. Dictated by: Dictated on workstation # [id number]
[2021-10-04] MEDS: PANTOPRAZOLE 40 MG (PROTONIX) VIAL IV SCH (08:24)
[2021-10-04] MEDS: AZITHROMYCIN INJECTION 250 MG in NS (IVPB) 250 ML IV SCH (08:24)
[2021-10-04] MEDS: APIXABAN 5 MG (ELIQUIS) TABLET PO SCH ×2 (08:24→20:46)
--- NOTE | 2021-10-04 09:55 | Tele-ICU Progress Note ---
Subjective Date Seen by a Provider: Oct 04, 2021 Time Seen by a Provider: 09:55 Sepsis Event Evaluation Height, Weight, BMI Height: '" Weight: lbs. oz. kg; 26.14 BMI Method: Focused Exam Lactate Level 10/02/21 08:19: Lactic Acid Level 3.98*H 10/02/21 11:45: Lactic Acid Level 2.83*H 10/02/21 14:15: Lactic Acid Level 1.93 Time of Focused Exam: 05:36 Exam Exam Patient acknowledged, consented, and participated in this virtual visit which was conducted using real time audio/video Vital Signs Date Time Temp Pulse Resp B/P (MAP) Pulse Ox O2 Delivery O2 Flow Rate FiO2 10/04/21 09:00 64 17 95 Mechanical Ventilator 25.00 10/04/21 08:45 66 18 95 Mechanical Ventilator 25.00 10/04/21 08:30 65 17 95 Mechanical Ventilator 25.00 10/04/21 08:15 70 18 95 Mechanical Ventilator 25.00 10/04/21 08:00 67 17 95 Mechanical Ventilator 25.00 10/04/21 07:45 63 18 94 Mechanical Ventilator 25.00 10/04/21 07:45 36.5 10/04/21 07:30 66 18 94 Mechanical Ventilator 25.00 10/04/21 07:15 65 18 94 Mechanical Ventilator 25.00 10/04/21 07:03 67 18 95 25 10/04/21 07:00 65 10/04/21 07:00 65 18 95 Mechanical Ventilator 25.00 10/04/21 06:45 66 18 95 Mechanical Ventilator 25.00 10/04/21 06:30 66 18 95 Mechanical Ventilator 25.00 10/04/21 06:15 70 17 95 Mechanical Ventilator 25.00 10/04/21 06:00 76 18 96 Mechanical Ventilator 25.00 10/04/21 05:35 30 10/04/21 05:00 62 18 96 Mechanical Ventilator 25.00 10/04/21 04:00 69 17 96 Mechanical Ventilator 25.00 10/04/21 04:00 97 Mechanical Ventilator 25 10/04/21 03:30 75 17 96 Mechanical Ventilator 25.00 10/04/21 03:22 Mechanical Ventilator 25.00 10/04/21 03:16 70 18 97 30 10/04/21 03:15 67 9 100 Mechanical Ventilator 30.00 10/04/21 03:14 70 104/60 10/04/21 03:00 74 18 98 Mechanical Ventilator 30.00 10/04/21 02:45 73 17 98 Mechanical Ventilator 30.00 10/04/21 02:30 72 18 98 Mechanical Ventilator 30.00 10/04/21 02:15 71 18 97 Mechanical Ventilator 30.00 10/04/21 02:14 36.5 10/04/21 02:00 83 18 97 Mechanical Ventilator 30.00 10/04/21 01:45 73 18 98 Mechanical Ventilator 30.00 10/04/21 01:35 30 10/04/21 01:30 72 18 98 Mechanical Ventilator 30.00 10/04/21 01:15 79 17 98 Mechanical Ventilator 30.00 10/04/21 01:00 71 10/04/21 01:00 77 18 98 Mechanical Ventilator 30.00 10/04/21 00:45 76 18 98 Mechanical Ventilator 30.00 10/04/21 00:38 36.4 10/04/21 00:30 73 18 97 Mechanical Ventilator 30.00 10/04/21 00:00 97 Mechanical Ventilator 30 10/04/21 00:00 Mechanical Ventilator 30.00 10/03/21 23:45 73 18 97 Mechanical Ventilator 30.00 10/03/21 23:30 71 18 97 Mechanical Ventilator 30.00 10/03/21 23:23 78 113/68 10/03/21 23:15 72 18 97 Mechanical Ventilator 30.00 10/03/21 23:00 75 17 98 Mechanical Ventilator 30.00 10/03/21 22:45 79 17 97 Mechanical Ventilator 30.00 10/03/21 22:30 74 18 97 Mechanical Ventilator 30.00 10/03/21 22:15 74 17 97 Mechanical Ventilator 30.00 10/03/21 22:00 81 18 97 Mechanical Ventilator 30.00 10/03/21 21:50 75 18 97 30 10/03/21 21:45 77 17 97 Mechanical Ventilator 30.00 10/03/21 21:30 73 18 97 Mechanical Ventilator 30.00 10/03/21 21:15 80 17 97 Mechanical Ventilator 30.00 10/03/21 21:00 80 14 96 Mechanical Ventilator 30.00 10/03/21 20:45 79 14 96 Mechanical Ventilator 30.00 10/03/21 20:36 30 10/03/21 20:32 76 114/70 12/25/21 20:30 77 18 95 Mechanical Ventilator 30.00 10/03/21 20:15 80 18 97 Mechanical Ventilator 30.00 10/03/21 20:00 97 Mechanical Ventilator 30 10/03/21 20:00 74 18 97 Mechanical Ventilator 30.00 10/03/21 19:54 36.6 10/03/21 19:45 75 18 97 Mechanical Ventilator 30.00 10/03/21 19:30 76 18 97 Mechanical Ventilator 30.00 10/03/21 19:15 79 18 97 Mechanical Ventilator 30.00 10/03/21 19:00 80 10/03/21 19:00 75 12 98 Mechanical Ventilator 30.00 10/03/21 18:55 75 19 97 30 10/03/21 18:07 30 10/03/21 17:45 80 18 97 Mechanical Ventilator 30.00 10/03/21 17:30 78 19 97 Mechanical Ventilator 30.00 10/03/21 17:15 82 19 97 Mechanical Ventilator 30.00 10/03/21 17:00 86 19 97 Mechanical Ventilator 30.00 10/03/21 16:45 79 19 97 Mechanical Ventilator 30.00 10/03/21 16:30 81 18 97 Mechanical Ventilator 30.00 10/03/21 16:15 93 19 97 Mechanical Ventilator 30.00 10/03/21 16:01 97 Mechanical Ventilator 30 10/03/21 16:00 83 19 97 Mechanical Ventilator 30.00 10/03/21 15:59 37.0 10/03/21 15:45 76 19 97 Mechanical Ventilator 30.00 10/03/21 15:30 86 19 97 Mechanical Ventilator 30.00 10/03/21 15:15 90 19 97 Mechanical Ventilator 30.00 10/03/21 15:00 81 18 96 Mechanical Ventilator 30.00 10/03/21 14:51 80 125/69 10/03/21 14:45 75 18 97 Mechanical Ventilator 30.00 10/03/21 14:30 86 18 97 Mechanical Ventilator 30.00 10/03/21 14:21 80 19 97 30 10/03/21 14:15 78 19 97 Mechanical Ventilator 30.00 10/03/21 14:00 81 18 97 Mechanical Ventilator 30.00 10/03/21 13:45 80 19 97 Mechanical Ventilator 30.00 10/03/21 13:42 30 10/03/21 13:30 80 19 96 Mechanical Ventilator 30.00 10/03/21 13:15 80 18 96 Mechanical Ventilator 30.00 10/03/21 13:00 78 18 96 Mechanical Ventilator 30.00 10/03/21 12:49 83 10/03/21 12:45 80 18 96 Mechanical Ventilator 30.00 10/03/21 12:30 80 18 96 Mechanical Ventilator 30.00 10/03/21 12:00 77 18 96 Mechanical Ventilator 30.00 10/03/21 12:00 97 Mechanical Ventilator 30 10/03/21 11:55 85 116/66 10/03/21 11:45 88 18 96 Mechanical Ventilator 30.00 10/03/21 11:30 108 17 96 Mechanical Ventilator 30.00 10/03/21 11:15 90 18 96 Mechanical Ventilator 30.00 10/03/21 11:00 85 18 96 Mechanical Ventilator 30.00 10/03/21 10:45 86 18 96 Mechanical Ventilator 30.00 10/03/21 10:45 90 19 97 30 10/03/21 10:30 85 18 96 Mechanical Ventilator 30.00 10/03/21 10:15 90 18 95 Mechanical Ventilator 30.00 10/03/21 10:00 81 18 95 Mechanical Ventilator 30.00 I & O 10/04/21 07:00 Intake Total 3342.5 ml Output Total 2900 ml Balance 442.5 ml Height & Weight Height: '" Weight: lbs. oz. kg; 26.14 BMI Method: General Appearance: No Apparent Distress, WD/WN, Chronically ill HEENT: PERRL/EOMI (3 mm reactive); No Moist Mucous Membranes ( dry oral mucosa cracked lips) Neck: Full Range of Motion, Non Tender Respiratory: Lungs Clear, Normal Breath Sounds Cardiovascular: Regular Rate, Rhythm Capillary Refill: Less Than 3 Seconds Peripheral Pulses: 2+ Radial Pulses (R), 2+ Radial Pulses (L) Gastrointestinal: soft, no organomegaly Extremity: Normal Capillary Refill, No Pedal Edema Neurologic/Psychiatric: Other (GCS of 10. Patient is caked and dirt. Follows some commands but does not answer with meaningful responses for us.) Skin: Normal Color Results Lab Laboratory Tests 10/02/21 11:45 10/03/21 03:06 10/04/21 02:15 Assessment/Plan Assessment/Plan Tele-ICU Physician , Progress Note ) Available chart/ vitals / labs / Images reviewed Video assessment done using teleICU camera, rest of exam as per RN Discussed with RN , EXAM PER RN Events overnight : Afebrile FiO2 - 25 I/O = neg Drips: Sedation gtt: ( RASS -3 ) fent 100 , propofol 20 VENT SETTINGS and ABG reviewed candidate for SBT today REVIEWED Cardiovascular Stability / Sedation Score / FI02/PEEP / ABG / CXR Pressors: , hemodynamically stable Consultants: Hospital course: 10/02 ARF ., AMS, PNA , rhabdo 10/03 - off levo 10/04 - fio2 25 % fio2 A/P Acute resp failure - intubated 10/02 , follow abx and cxr PNA , RUL ( covid neg = z mqx - merrem acute mental status change - CTH 10/02 neg - _ met and amthet in urine - on propofol and fentanyl - with decreasing doses is agitated , not follows coimmands Elevated LFT - neg hepatitis and HIV panel- improving Rhabdo - cont hydration . STOP bicarb gtt FLAKITA - cont hydration Coagulopathy - ? due to liver failure - follow - IMPROVING Elv trop - cards consulted h/o a fib - in sinus now - a sper cards on eliquis Lines : right IJ 10/02 (Central Line Necessity Reviewed) Locke: 10/02 OG: + Nutrition: TF Analgesia: Anxiety/ delirium VTE Prophylaxis: eliquis Stress Ulcer Prophylaxis: ppi Glycemic Control: Plans in collaboration with bedside consultants and IM MDs. Discussed with RN to reach out if any questions or concerns A total of 35 minutes of critical care time was devoted to this patient today, required to treat and/or prevent further deterioration of critical care condition ( as above) . TAE AGUAYO MD Oct 04, 2021 09:55
--- NOTE | 2021-10-04 10:18 | Cardiology Progress Note ---
Progress Note-Cardiology Events since last exam Date Seen by Provider: Oct 04, 2021 Time Seen by Provider: 10:13 Events since last exam I am following him due to elevated troponin level and abnormal electrocardiogram in the setting of methamphetamine overdose and rhabdomyolysis. He remains in the intensive care unit intubated and sedated. He has now received 7 L of normal saline and 3 L of bicarbonate solution. He has a history of atrial fibrillation but remains in sinus rhythm. Certain portions of this document may have been dictated utilizing voice recognition technology. Inherent to this technology, typographical and grammatical errors may exist. As much as I am diligent to identify and correct these mistakes, some errors may remain in the document. Vitals Last set of Vitals Signs Vital Signs 10/04/21 10/04/21 10/04/21 10/04/21 03:14 07:03 07:45 09:00 Temp 36.5 Pulse 64 Resp 17 B/P (MAP) 104/60 Pulse Ox 95 O2 Delivery Mechanical Ventilator O2 Flow Rate 25.00 FiO2 25 Labs Labs Laboratory Tests 10/04/21 02:15 Exam Vital Signs Vital Signs Date Time Temp Pulse Resp B/P (MAP) Pulse Ox O2 Delivery O2 Flow Rate FiO2 10/04/21 09:00 64 17 95 Mechanical Ventilator 25.00 10/04/21 07:45 36.5 10/04/21 07:03 25 Physical Exam General: Intubated and sedated. Well nourished and appears stated age. Eye: Conjunctivae are clear. There are no xanthelasma. HENT: Normocephalic. Atraumatic. Carotid pulsations 2/2 without bruits. Neck: Jugular venous pressure does not appear elevated. No thyromegaly appreciated. Respiratory: Symmetrical expansion bilaterally. Coarse breath sounds due to the ventilator. Cardiovascular: Normal rate. Regular rhythm. No murmur. No gallop. Point of maximal impulse is not appear displaced. Good pulses equal in all extremities. No edema. Gastrointestinal: Soft. Normal bowel sounds. Skin: Skin turgor is normal. There is no pallor. Musculoskeletal: No obvious deformities. Neurologic: Intubated and sedated. Psychiatric: Not obtainable due to clinical status. Labs Laboratory Tests Test 10/03/21 10:55 10/03/21 17:40 10/04/21 02:15 Range/Units Glucometer 99 94 70-110 MG/DL White Blood Count 12.5 H 4.3-11.0 10^3/uL Red Blood Count 4.39 4.30-5.52 10^6/uL Hemoglobin 12.1 L 13.3-17.7 g/dL Hematocrit 40 40-54 % Mean Corpuscular Volume 90 80-99 fL Mean Corpuscular Hemoglobin 28 25-34 pg Mean Corpuscular Hemoglobin Concent 31 L 32-36 g/dL Red Cell Distribution Width 17.3 H 10.0-14.5 % Platelet Count 202 130-400 10^3/uL Mean Platelet Volume 11.1 9.0-12.2 fL Immature Granulocyte % (Auto) 0 % Neutrophils (%) (Auto) 81 H 42-75 % Lymphocytes (%) (Auto) 9 L 12-44 % Monocytes (%) (Auto) 8 0-12 % Eosinophils (%) (Auto) 1 0-10 % Basophils (%) (Auto) 0 0-10 % Neutrophils # (Auto) 10.2 H 1.8-7.8 10^3/uL Lymphocytes # (Auto) 1.2 1.0-4.0 10^3/uL Monocytes # (Auto) 1.0 0.0-1.0 10^3/uL Eosinophils # (Auto) 0.2 0.0-0.3 10^3/uL Basophils # (Auto) 0.0 0.0-0.1 10^3/uL Immature Granulocyte # (Auto) 0.0 0.0-0.1 10^3/uL Blood Gas Puncture Site RIGHT ART LINE Blood Gas Patient Temperature 36.9 Arterial Blood pH 7.38 7.37-7.43 Arterial Blood Partial Pressure CO2 42 35-45 MMHG Arterial Blood Partial Pressure O2 126 H 79-93 MMHG Arterial Blood HCO3 24 23-27 MMOL/L Arterial Blood Total CO2 25.5 21.0-31.0 MMOL/L Arterial Blood Oxygen Saturation 99 94-100 % Arterial Blood Base Excess -0.3 -2.5-2.5 MMOL/L Michele Test ART LINE Blood Gas Ventilator Setting YES Blood Gas Inspired Oxygen 40% Sodium Level 143 135-145 MMOL/L Potassium Level 3.6 3.6-5.0 MMOL/L Chloride Level 112 H 98-107 MMOL/L Carbon Dioxide Level 21 21-32 MMOL/L Anion Gap 10 5-14 MMOL/L Blood Urea Nitrogen 27 H 7-18 MG/DL Creatinine 0.70 0.60-1.30 MG/DL Estimat Glomerular Filtration Rate 124 BUN/Creatinine Ratio 39 Glucose Level 84 70-105 MG/DL Calcium Level 7.8 L 8.5-10.1 MG/DL Corrected Calcium 9.1 8.5-10.1 MG/DL Phosphorus Level 1.6 L 2.3-4.7 MG/DL Magnesium Level 1.7 1.6-2.4 MG/DL Total Bilirubin 1.5 H 0.1-1.0 MG/DL Aspartate Amino Transf (AST/SGOT) 388 H 5-34 U/L Alanine Aminotransferase (ALT/SGPT) 289 H 0-55 U/L Alkaline Phosphatase 106 40-136 U/L Total Protein 5.0 L 6.4-8.2 GM/DL Albumin 2.4 L 3.2-4.5 GM/DL Triglycerides Level 181 H <150 MG/DL Vancomycin Level Trough 13.9 10.0-20.0 UG/ML Diagnosis/Problems Diagnosis/Problems (1) Elevated troponin Status: Acute Assessment & Plan: He has a marginally elevated troponin level. This is in the presence of significant elevation of the creatinine kinase level which may be due to rhabdomyolysis. I suspect the troponin elevation is related to the elevated creatinine kinase level and does not represent an acute myocardial infarction. I do not see any indication for an invasive or noninvasive ischemic evaluation at this time. Furthermore, due to his methamphetamine abuse and non compliance with medical therapy, he would not be a good candidate for an invasive cardiac evaluation. (2) Abnormal ECG Status: Acute Assessment & Plan: He did have progressive worsening of T wave inversion in the anterolateral leads but this seems to have stabilized. His head CT does not show any acute abnormalities to explain the diffuse T wave changes. We are not able to obtain any history from the patient. He does have multiple metabolic derangements which could be causing the electrocardiogram changes. Due to his medication noncompliance, he would not be a good candidate for an invasive cardiac evaluation because if he needs to have coronary revascularization, he would need to be compliant with medication. I have ordered a follow-up electrocardiogram for today. (3) Paroxysmal atrial fibrillation Status: Chronic Assessment & Plan: He has had intermittent atrial fibrillation during previous hospitalizations. He is supposed to be taking apixaban for stroke prophylaxis and digoxin and metoprolol for rate control. He is currently in sinus rhythm. He will be monitored on telemetry during this admission. Given his history of methamphetamine overdoses, he is probably not a good candidate for long-term use of digoxin. He is back on apixaban for stroke prophylaxis. We will resume metoprolol when his blood pressure will tolerate. (4) Cardiomyopathy Status: Chronic Assessment & Plan: He had a transesophageal echocardiogram on March 28, 2021 that showed an ejection fraction of 40-45%. I recommend we resume his metoprolol succinate which he was supposed to be taking at home once his blood pressures improve. He has been on norepinephrine infusion intermittently due to shock and is, beta-ryan has been on hold. (5) Acute on chronic systolic heart failure Status: Acute Assessment & Plan: He has diffuse changes on his chest x-ray from the emergency room. His chest x-ray from today again showed some pulmonary opacities diffusely. This could be pulmonary edema. I will start him on intravenous furosemide. (6) Rhabdomyolysis Status: Acute Assessment & Plan: He will need vigorous intravenous hydration due to the rhabdomyolysis. His CK levels are starting to come down. His renal function remains reasonably well-preserved. (7) Acute kidney injury Status: Acute Assessment & Plan: Probably related to the rhabdomyolysis. This has improved with the IV fluids he is receiving for the rhabdomyolysis. (8) Noncompliance with medication regimen Status: Chronic Assessment & Plan: This makes chronic management of his medical conditions extremely difficult. Problem Qualifiers (1) Rhabdomyolysis: Rhabdomyolysis type: non-traumatic Qualified Codes: M62.82 - Rhabdomyolysis DONAVAN RODRIGUEZ JR, MD Oct 04, 2021 10:18
[2021-10-04] MEDS ORDERED: FUROSEMIDE 40 MG/4 ML INJ (LASIX) IVP NR ×2 (10:45→12:45)
[2021-10-04 11:04] VITALS: BP 100/61
[2021-10-04] MEDS: SODIUM BICARBONATE 8.4% VIAL 100 MEQ in 1/2 NS IV SOLUTION 1,000 ML IV SCH (13:18)
[2021-10-04 14:49] VITALS: BP 117/67
[2021-10-04] MEDS ORDERED: FUROSEMIDE 40 MG/4 ML INJ (LASIX) IVP SCH (17:00)
[2021-10-04] MEDS: FUROSEMIDE 40 MG/4 ML INJ (LASIX) IVP SCH (17:33)
[2021-10-04 18:36] VITALS: BP 134/82
[2021-10-04 22:12] VITALS: BP 124/75
[2021-10-05] MEDS: MEROPENEM 500 MG in NS (IVPB) 100 ML IV SCH ×5 (00:08→23:41)
[2021-10-05] MEDS: PROPOFOL DRIP (ICU) 100 ML IV SCH ×7 (01:01→22:23)
[2021-10-05] MEDS: VANCOMYCIN 1250 MG/NS 250 ML IVPB IV SCH ×2 (02:02)
[2021-10-05] MEDS: NS IV 1000 ML 1,000 ML IV SCH ×4 (02:02→20:26)
[2021-10-05] MEDS: fentaNYL DRIP PRE-MIX 250 ML IV SCH ×3 (02:02→21:49)
[2021-10-05 02:28] VITALS: BP 101/61
[2021-10-05] MEDS: RT-ALBUTEROL SULF 2.5 MG/3 ML PRE-MIX VIAL INH SCH ×6 (02:28→23:21)
[2021-10-05 03:52] LABS: ABG BASE EXCESS 4.1 MMOL/L (-2.5-2.5); ABG OXYGEN SATURATION 93 % (94-100); ABG PCO2 41 MMHG (35-45); ABG PH 7.45 (7.37-7.43); ABG PO2 67 MMHG (79-93); ABG TCO2 29.4 MMOL/L (21.0-31.0)
[2021-10-05 03:53] LABS: BASOPHILS % (AUTO) 0 % (0-10); EOSINOPHILS # (AUTO) 0.2 10^3/uL (0.0-0.3); EOSINOPHILS % (AUTO) 2 % (0-10); HEMATOCRIT 43 % (40-54); HEMOGLOBIN 13.3 g/dL (13.3-17.7); LYMPHOCYTES % (AUTO) 9 % (12-44); MEAN CORPUSCULAR HEMOGLOBIN 28 pg (25-34); MEAN CORPUSCULAR HGB CONC 31 g/dL (32-36); MEAN CORPUSCULAR VOLUME 89 fL (80-99); MEAN PLATELET VOLUME 11.3 fL (9.0-12.2); MONOCYTES # (AUTO) 0.9 10^3/uL (0.0-1.0); MONOCYTES % (AUTO) 8 % (0-12); NEUTROPHILS # (AUTO) 9.1 10^3/uL (1.8-7.8); NEUTROPHILS % (AUTO) 80 % (42-75); PLATELET COUNT 215 10^3/uL (130-400); WHITE BLOOD COUNT 11.3 10^3/uL (4.3-11.0)
[2021-10-05 03:56] LABS: ALLENS TEST ART LINE; INSPIRED O2 21%; PATIENT TEMP 36.2; VENTILATOR YES
[2021-10-05] MEDS: NOREPINEPHRINE 8 MG/250 ML 250 ML IV SCH ×2 (03:57→13:45)
[2021-10-05 04:08] LABS: ALBUMIN 2.6 GM/DL (3.2-4.5); POTASSIUM 3.3 MMOL/L (3.6-5.0)
[2021-10-05 04:09] LABS: CALCIUM 8.2 MG/DL (8.5-10.1)
[2021-10-05 04:11] LABS: TOTAL PROTEIN 5.6 GM/DL (6.4-8.2)
[2021-10-05 04:14] LABS: CREATININE SERUM 0.67 MG/DL (0.60-1.30)
[2021-10-05 04:17] LABS: MAGNESIUM 1.4 MG/DL (1.6-2.4)
[2021-10-05] MEDS: POTASSIUM CL 10MEQ/50ML IVPB 50 ML IV SCH ×5 (04:36→06:05)
[2021-10-05] MEDS: MAGNESIUM 1 GM/100 ML IVPB 100 ML IV SCH ×3 (04:36→05:38)
[2021-10-05] MEDS: KCL 20 MEQ TAB (K-DUR) PO SCH (05:03)
[2021-10-05] MEDS: FUROSEMIDE 40 MG/4 ML INJ (LASIX) IVP SCH ×2 (06:04→17:18)
--- NOTE | 2021-10-05 06:43 | Diagnostic Imaging Report ---
EXAMINATION: Chest 1 view HISTORY: Pneumonia. Followup.. COMPARISON: 10/04/2021. FINDINGS: Stable support devices. The lung volumes are normal. There is improved aeration in the perihilar and basilar regions. No large pleural effusion or pneumothorax is seen. The cardiomediastinal silhouette is normal in size and contour. No acute osseous abnormality is seen. IMPRESSION: 1. Improved aeration in the lungs which may represent improving pneumonia or pulmonary edema. 2. Stable support devices. Dictated by: Dictated on workstation # [id number]
[2021-10-05 08:39] VITALS: BP 114/71
[2021-10-05] MEDS: AZITHROMYCIN INJECTION 250 MG in NS (IVPB) 250 ML IV SCH (09:01)
[2021-10-05] MEDS: APIXABAN 5 MG (ELIQUIS) TABLET PO SCH ×2 (09:01→20:26)
[2021-10-05] MEDS: PANTOPRAZOLE 40 MG (PROTONIX) VIAL IV SCH (09:01)
[2021-10-05 11:03] VITALS: BP 106/70
--- NOTE | 2021-10-05 11:38 | Progress Note - Hospitalist ---
RAMA MAE 10/05/21 1138: Subjective HPI/CC On Admission Date Seen by Provider: Oct 05, 2021 Time Seen by Provider: 08:10 Chief complaint: Respiratory failure History present illness: This is a 41-year-old white male known to me from multiple hospital stays all of them related to methamphetamine use who presented to the ER with respiratory failure. He was intubated. He has a history of congestive heart failure and atrial fibrillation. ICU has been consulted along with cardiology. He on the vent. Subjective/Events-last exam Patient is still on vent this morning. Vent settings 500/18/5.0/21%. Patient's potassium 3.3 today. Will continue to monitor closely. Patient unable to give a review of systems. Focused Exam Lactate Level 10/02/21 11:45: Lactic Acid Level 2.83*H 10/02/21 14:15: Lactic Acid Level 1.93 Time of Focused Exam: 05:36 Objective Exam Vital Signs Vital Signs Date Time Temp Pulse Resp B/P (MAP) Pulse Ox O2 Delivery O2 Flow Rate FiO2 10/05/21 11:03 58 18 95 21 10/05/21 11:00 Mechanical Ventilator 21.00 10/05/21 07:20 36.5 Capillary Refill : Less Than 3 Seconds General Appearance: WD/WN, Other (Patient sedated and on ventilator) Cardiovascular: Regular Rate, Rhythm Neurologic/Psychiatric: Other (Patient sedated and on ventilator) Results/Procedures Lab Laboratory Tests 10/05/21 03:40 Patient resulted labs reviewed. Assessment/Plan Assessment and Plan Assess & Plan/Chief Complaint Assessment: Acute respiratory failure requiring intubation Acute respiratory acidosis with metabolic acidosis Severe sepsis Bilateral pneumonia Leukocytosis 33,000 Acute rhabdomyolysis Elevated troponin Coagulopathy INR 4.1 Bandemia Liver shock Atrial fibrillation currently rate controlled Congestive heart failure Methamphetamine use Plan: Vent management appreciated by eICU Poor prognosis Multisystem organ failure noted 10/03/2021: Supportive care eICU appreciated Cardiology appreciated Patient will require intubation if extubated too soon to do methamphetamine withdrawal process just like the previous 6 admissions 10/04/2021: Ventilator management Monitor closely 10/05/2021: Ventilator management Monitor closely ERIN COLE DO 10/06/21 0518: Subjective Subjective/Events-last exam Pt still intubated Vent settings are 500/18/5/21% Weaning protocol in the next couple of days Potassium 3.3 being supplemented Objective Exam General Appearance: Chronically ill, Other (Patient sedated and on ventilator) Respiratory: Lungs Clear, Normal Breath Sounds Cardiovascular: Regular Rate, Rhythm Assessment/Plan Assessment and Plan Assess & Plan/Chief Complaint Assessment: Acute respiratory failure requiring intubation Acute respiratory acidosis with metabolic acidosis Severe sepsis Bilateral pneumonia Leukocytosis 33,000 Acute rhabdomyolysis Elevated troponin Coagulopathy INR 4.1 Bandemia Liver shock Atrial fibrillation currently rate controlled Congestive heart failure Methamphetamine use Plan: Maintain intubation Prognosis poor long-term Supervisory-Addendum Brief Verification & Attestation Participated in pt care: history, MDM, physical Personally performed: exam, history, MDM, supervision of care Care discussed with: Medical Student Procedures: n/a Results interpretation: Verified all documentation Verification and Attestation of Medical Student E/M Service A medical student performed and documented this service in my presence. I reviewed and verified all information documented by the medical student and made modifications to such information, when appropriate. I personally performed the physical exam and medical decision making. Erin Cole Oct 06, 2021,05:16 RAMA MAE Oct 05, 2021 11:38 ERIN COLE DO Oct 06, 2021 05:18
--- NOTE | 2021-10-05 11:43 | Tele-ICU Progress Note ---
Subjective Date Seen by a Provider: Oct 05, 2021 Time Seen by a Provider: 11:15 Subjective/Events-last exam This virtual visit was conducted using real time audio/video. Thank you for asking us to see this patient for respiratory insufficiency due to Meth OD, pna, sepsis, rhabdo. History of PAF, EF 40-45%. Recent events: Sedation vacation resulted in desaturation to 85%, agitation. PE: Sedated on vent. VSS. O2 sat 97% on 21%/+5 HEENT: No obvious masses, adenopathy or JVD. Chest: clear to auscultation. CV: RRR S1 S2 No murmur or added sounds. Abd: Non-tender. Bowel sounds Y. : Unremarkable. Locke Y. 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 No obvious focal findings. Extremities: 1+ edema. Capillary refill < 3 seconds. Skin: unremarkable. Results: Elevated WCC 11.3. Decreased K 3.3. B.45/41/67. CXR: improved infilts., hyperinflated. Available chart/ vitals / labs / images reviewed. Video assessment done using teleICU camera, rest of exam as per RN. A/P: Respiratory insufficiency: Continue present management with vent. Repeat SBT in AM. Monitor for increasing oxygenation needs. Critical Care: critically ill patient. Cont. Albuterol, sedatives, abx., lasix, Eliquis, SSI. Levophed held since 10/04/21. Replace K. Discussed with RN Sailaja. Asked RN to reach out to eICU if any questions or c oncerns later. Time spent with patient/coordination of care with other health professionals (mins):15 Sepsis Event Evaluation Height, Weight, BMI Height: '" Weight: lbs. oz. kg; 26.14 BMI Method: Focused Exam Lactate Level 10/02/21 11:45: Lactic Acid Level 2.83*H 10/02/21 14:15: Lactic Acid Level 1.93 Time of Focused Exam: 05:36 Exam Exam Patient acknowledged, consented, and participated in this virtual visit which was conducted using real time audio/video Vital Signs Date Time Temp Pulse Resp B/P (MAP) Pulse Ox O2 Delivery O2 Flow Rate FiO2 10/05/21 11:03 58 18 95 21 10/05/21 11:00 63 95 Mechanical Ventilator 21.00 10/05/21 10:00 75 17 95 Mechanical Ventilator 21.00 10/05/21 09:31 21 10/05/21 09:02 57 114/71 10/05/21 09:00 66 17 95 Mechanical Ventilator 21.00 10/05/21 08:39 57 18 96 21 10/05/21 08:00 96 Mechanical Ventilator 21 10/05/21 08:00 21 10/05/21 08:00 69 18 94 Mechanical Ventilator 21.00 10/05/21 07:20 36.5 10/05/21 07:00 56 10/05/21 07:00 52 18 94 Mechanical Ventilator 21.00 10/05/21 06:00 60 18 92 Mechanical Ventilator 21.00 10/05/21 05:00 124 18 93 Mechanical Ventilator 21.00 10/05/21 04:00 21 10/05/21 04:00 95 Mechanical Ventilator 21 10/05/21 04:00 66 18 92 Mechanical Ventilator 21.00 10/05/21 03:40 36.2 10/05/21 03:00 63 17 92 Mechanical Ventilator 21.00 10/05/21 02:28 67 18 93 21 10/05/21 02:00 109 17 92 Mechanical Ventilator 21.00 10/05/21 01:00 63 18 92 Mechanical Ventilator 21.00 10/05/21 01:00 80 10/05/21 00:08 36.6 10/05/21 00:00 95 Mechanical Ventilator 21 10/05/21 00:00 75 17 92 Mechanical Ventilator 21.00 10/05/21 00:00 21 10/04/21 23:00 72 17 92 Mechanical Ventilator 21.00 10/04/21 22:12 70 18 91 21 10/04/21 22:00 69 18 91 Mechanical Ventilator 21.00 10/04/21 21:00 69 17 90 Mechanical Ventilator 21.00 10/04/21 20:47 Mechanical Ventilator 21.00 10/04/21 20:46 81 127/78 10/04/21 20:00 95 Mechanical Ventilator 21 10/04/21 20:00 78 18 92 Mechanical Ventilator 21.00 10/04/21 20:00 21 10/04/21 19:56 36.5 10/04/21 19:00 74 17 91 Mechanical Ventilator 21.00 10/04/21 19:00 90 10/04/21 18:36 69 18 93 21 10/04/21 18:00 63 18 94 Mechanical Ventilator 25.00 10/04/21 17:45 68 18 3 Mechanical Ventilator 25.00 10/04/21 17:38 57 117/67 10/04/21 17:30 71 18 93 Mechanical Ventilator 25.00 10/04/21 17:15 68 17 93 Mechanical Ventilator 25.00 10/04/21 17:00 57 18 93 Mechanical Ventilator 25.00 10/04/21 16:45 67 18 93 Mechanical Ventilator 25.00 10/04/21 16:30 85 12 93 Mechanical Ventilator 25.00 10/04/21 16:00 97 Mechanical Ventilator 25 10/04/21 16:00 25 10/04/21 16:00 70 18 93 Mechanical Ventilator 25.00 10/04/21 15:46 36.1 10/04/21 15:30 62 17 92 Mechanical Ventilator 25.00 10/04/21 15:15 62 18 94 Mechanical Ventilator 25.00 10/04/21 15:00 70 17 93 Mechanical Ventilator 25.00 10/04/21 14:49 60 18 96 21 10/04/21 14:45 59 17 96 Mechanical Ventilator 25.00 10/04/21 14:30 59 18 96 Mechanical Ventilator 25.00 10/04/21 14:15 58 17 96 Mechanical Ventilator 25.00 10/04/21 14:00 57 18 96 Mechanical Ventilator 25.00 10/04/21 13:45 61 17 97 Mechanical Ventilator 25.00 10/04/21 13:31 58 100/61 10/04/21 13:15 65 17 96 Mechanical Ventilator 25.00 10/04/21 13:00 60 18 97 Mechanical Ventilator 25.00 10/04/21 12:54 58 10/04/21 12:45 59 18 96 Mechanical Ventilator 25.00 10/04/21 12:30 58 18 97 Mechanical Ventilator 25.00 10/04/21 12:15 65 20 96 Mechanical Ventilator 25.00 10/04/21 12:00 65 18 96 Mechanical Ventilator 25.00 10/04/21 12:00 25 10/04/21 12:00 36.2 10/04/21 12:00 97 Mechanical Ventilator 25 10/04/21 11:45 62 18 96 Mechanical Ventilator 25.00 I & O 10/05/21 07:00 Intake Total 6624.0 ml Output Total 98193 ml Balance -3476.0 ml Height & Weight Height: '" Weight: lbs. oz. kg; 26.14 BMI Method: General Appearance: Chronically ill, Other (Sedated and intubated) HEENT: PERRL/EOMI (3 mm reactive); No Moist Mucous Membranes ( dry oral mucosa cracked lips) Neck: Full Range of Motion, Non Tender Respiratory: Lungs Clear, Normal Breath Sounds Cardiovascular: Regular Rate, Rhythm Capillary Refill: Less Than 3 Seconds Peripheral Pulses: 2+ Radial Pulses (R), 2+ Radial Pulses (L) Gastrointestinal: soft, no organomegaly Extremity: Normal Capillary Refill, No Pedal Edema Neurologic/Psychiatric: Other (GCS of 10. Patient is caked and dirt. Follows some commands but does not answer with meaningful responses for us.) Skin: Normal Color Results Lab Laboratory Tests 10/04/21 02:15 10/05/21 03:40 Assessment/Plan Assessment/Plan See free text. Critical Care: Ventilator Management VALDO QUARLES MD Oct 05, 2021 11:43
[2021-10-05] MEDS ORDERED: DIGO250T3 PO (11:59)
[2021-10-05] MEDS ORDERED: POTA-169 PO (11:59)
[2021-10-05] MEDS ORDERED: VENL75CA93 PO (11:59)
[2021-10-05] MEDS ORDERED: FURO40TA4 PO (11:59)
[2021-10-05] MEDS ORDERED: DILT360C26 PO (11:59)
[2021-10-05] MEDS ORDERED: METO50TA7 PO (11:59)
[2021-10-05] MEDS ORDERED: CLON0.5T4 PO (11:59)
[2021-10-05] MEDS ORDERED: APIX5TAB PO (11:59)
[2021-10-05 14:41] VITALS: BP 103/81
--- NOTE | 2021-10-05 18:28 | Cardiology Progress Note ---
Progress Note-Cardiology Events since last exam Date Seen by Provider: Oct 05, 2021 Time Seen by Provider: 18:22 Events since last exam I am following him due to elevated troponin and abnormal electrocardiogram f ollowing methamphetamine overdose. He remains intubated and sedated in the intensive care unit. I spoke with his nurse of today. There have not been any acute cardiac issues over the past 24 hours. Certain portions of this document may have been dictated utilizing voice recognition technology. Inherent to this technology, typographical and grammatical errors may exist. As much as I am diligent to identify and correct these mistakes, some errors may remain in the document. Vitals Last set of Vitals Signs Vital Signs 10/05/21 10/05/21 10/05/21 10/05/21 10/05/21 14:41 15:15 15:32 16:00 17:00 Pulse 55 Resp 18 B/P (MAP) 103/81 Pulse Ox 94 O2 Delivery Mechanical Ventilator O2 Flow Rate 21.00 FiO2 21 Labs Labs Laboratory Tests 10/05/21 03:40 Exam Vital Signs Vital Signs Date Time Temp Pulse Resp B/P (MAP) Pulse Ox O2 Delivery O2 Flow Rate FiO2 10/05/21 17:00 55 Mechanical Ventilator 21.00 10/05/21 16:00 94 10/05/21 15:32 21 10/05/21 15:12 36.5 10/05/21 14:41 18 Physical Exam General: Intubated and sedated. Well nourished and appears stated age. Eye: Conjunctivae are clear. There are no xanthelasma. HENT: Normocephalic. Atraumatic. Carotid pulsations 2/2 without bruits. Neck: Jugular venous pressure does not appear elevated. No thyromegaly appreciated. Respiratory: Symmetrical expansion bilaterally. Coarse breath sounds due to the ventilator. Cardiovascular: Normal rate. Regular rhythm. No murmur. No gallop. Point of maximal impulse is not appear displaced. Good pulses equal in all extremities. No edema. Gastrointestinal: Soft. Normal bowel sounds. Skin: Skin turgor is normal. There is no pallor. Musculoskeletal: No obvious deformities. Neurologic: Intubated and sedated. Psychiatric: Not obtainable due to clinical status. Labs Laboratory Tests Test 10/04/21 22:48 10/05/21 03:40 10/05/21 11:22 10/05/21 17:30 Range/Units Glucometer 96 88 78 70-110 MG/DL White Blood Count 11.3 H 4.3-11.0 10^3/uL Red Blood Count 4.82 4.30-5.52 10^6/uL Hemoglobin 13.3 13.3-17.7 g/dL Hematocrit 43 40-54 % Mean Corpuscular Volume 89 80-99 fL Mean Corpuscular Hemoglobin 28 25-34 pg Mean Corpuscular Hemoglobin Concent 31 L 32-36 g/dL Red Cell Distribution Width 17.3 H 10.0-14.5 % Platelet Count 215 130-400 10^3/uL Mean Platelet Volume 11.3 9.0-12.2 fL Immature Granulocyte % (Auto) 0 % Neutrophils (%) (Auto) 80 H 42-75 % Lymphocytes (%) (Auto) 9 L 12-44 % Monocytes (%) (Auto) 8 0-12 % Eosinophils (%) (Auto) 2 0-10 % Basophils (%) (Auto) 0 0-10 % Neutrophils # (Auto) 9.1 H 1.8-7.8 10^3/uL Lymphocytes # (Auto) 1.0 1.0-4.0 10^3/uL Monocytes # (Auto) 0.9 0.0-1.0 10^3/uL Eosinophils # (Auto) 0.2 0.0-0.3 10^3/uL Basophils # (Auto) 0.0 0.0-0.1 10^3/uL Immature Granulocyte # (Auto) 0.1 0.0-0.1 10^3/uL Blood Gas Puncture Site RIGHT ARTLINE Blood Gas Patient Temperature 36.2 Arterial Blood pH 7.45 H 7.37-7.43 Arterial Blood Partial Pressure CO2 41 35-45 MMHG Arterial Blood Partial Pressure O2 67 L 79-93 MMHG Arterial Blood HCO3 28 H 23-27 MMOL/L Arterial Blood Total CO2 29.4 21.0-31.0 MMOL/L Arterial Blood Oxygen Saturation 93 L 94-100 % Arterial Blood Base Excess 4.1 H -2.5-2.5 MMOL/L Michele Test ART LINE Blood Gas Ventilator Setting YES Blood Gas Inspired Oxygen 21% Sodium Level 145 135-145 MMOL/L Potassium Level 3.3 L 3.6-5.0 MMOL/L Chloride Level 108 H 98-107 MMOL/L Carbon Dioxide Level 24 21-32 MMOL/L Anion Gap 13 5-14 MMOL/L Blood Urea Nitrogen 13 7-18 MG/DL Creatinine 0.67 0.60-1.30 MG/DL Estimat Glomerular Filtration Rate 130 BUN/Creatinine Ratio 19 Glucose Level 93 70-105 MG/DL Calcium Level 8.2 L 8.5-10.1 MG/DL Corrected Calcium 9.3 8.5-10.1 MG/DL Phosphorus Level 2.0 L 2.3-4.7 MG/DL Magnesium Level 1.4 L 1.6-2.4 MG/DL Total Bilirubin 2.0 H 0.1-1.0 MG/DL Aspartate Amino Transf (AST/SGOT) 271 H 5-34 U/L Alanine Aminotransferase (ALT/SGPT) 235 H 0-55 U/L Alkaline Phosphatase 117 40-136 U/L Total Creatine Kinase 1209 H 30-200 U/L Total Protein 5.6 L 6.4-8.2 GM/DL Albumin 2.6 L 3.2-4.5 GM/DL Diagnosis/Problems Diagnosis/Problems (1) Elevated troponin Status: Acute Assessment & Plan: He has a marginally elevated troponin level. This is in the presence of significant elevation of the creatinine kinase level which may be due to rhabdomyolysis. I suspect the troponin elevation is related to the elevated creatinine kinase level and does not represent an acute myocardial infarction. I do not see any indication for an invasive or noninvasive ischemic evaluation at this time. Furthermore, due to his methamphetamine abuse and noncompliance with medical therapy, he would not be a good candidate for an in vasive cardiac evaluation. (2) Abnormal ECG Status: Acute Assessment & Plan: He did have progressive worsening of T wave inversion in the anterolateral leads but this seems to have stabilized. His head CT does not show any acute abnormalities to explain the diffuse T wave changes. We are not able to obtain any history from the patient. He does have multiple metabolic derangements which could be causing the electrocardiogram changes. Due to his medication noncompliance, he would not be a good candidate for an invasive cardiac evaluation because if he needs to have coronary revascularization, he would need to be compliant with medication. I have ordered a follow-up electrocardiogram for today. (3) Paroxysmal atrial fibrillation Status: Chronic Assessment & Plan: He has had intermittent atrial fibrillation during previous hospitalizations. He has not had any atrial fibrillation during this hospitalization. He is supposed to be taking apixaban for stroke prophylaxis and digoxin and metoprolol for rate control. He is currently in sinus rhythm. He will be monitored on telemetry during this admission. Given his history of methamphetamine overdoses, he is probably not a good candidate for long-term use of digoxin. He is back on apixaban for stroke prophylaxis. Resume metoprolol when his blood pressure will tolerate. (4) Cardiomyopathy Status: Chronic Assessment & Plan: He had a transesophageal echocardiogram on March 28, 2021 that showed an ejection fraction of 40-45%. I recommend we resume his metoprolol succinate which he was supposed to be taking at home once his blood pressures improve. He has been on norepinephrine infusion intermittently due to shock and is, beta-yran has been on hold. I will obtain a surface echocardiogram tomorrow. (5) Acute on chronic systolic heart failure Status: Acute Assessment & Plan: He has diffuse changes on his chest x-ray from the emergency room. His chest x-rays have improved. I had previously started him on intravenous Lasix due to the large volume of IV fluid he has been receiving for the rhabdomyolysis. (6) Rhabdomyolysis Status: Acute Assessment & Plan: He is getting intravenous hydration due to the rhabdomyolysis. His CK levels have been improving. His renal function remains reasonably well-preserved. (7) Acute kidney injury Status: Acute Assessment & Plan: Probably related to the rhabdomyolysis. This has improved with the IV fluids he is receiving for the rhabdomyolysis. (8) Noncompliance with medication regimen Status: Chronic Assessment & Plan: This makes chronic management of his medical conditions extremely difficult. Problem Qualifiers (1) Rhabdomyolysis: Rhabdomyolysis type: non-traumatic Qualified Codes: M62.82 - Rhabdomyolysis DONAVAN RODRIGUEZ JR, MD Oct 05, 2021 18:28
[2021-10-05 18:43] VITALS: BP 104/68
[2021-10-05 23:22] VITALS: BP 92/59
[2021-10-06] MEDS: NOREPINEPHRINE 8 MG/250 ML 250 ML IV SCH ×3 (00:21→22:15)
[2021-10-06] MEDS: NS IV 1000 ML 1,000 ML IV SCH ×6 (01:46→23:32)
[2021-10-06] MEDS: PROPOFOL DRIP (ICU) 100 ML IV SCH ×7 (01:46→23:32)
[2021-10-06] MEDS: RT-ALBUTEROL SULF 2.5 MG/3 ML PRE-MIX VIAL INH SCH ×6 (02:21→21:17)
[2021-10-06 02:22] VITALS: BP 104/60
[2021-10-06 04:13] LABS: BASOPHILS % (AUTO) 0 % (0-10); EOSINOPHILS # (AUTO) 0.5 10^3/uL (0.0-0.3); EOSINOPHILS % (AUTO) 6 % (0-10); HEMATOCRIT 42 % (40-54); HEMOGLOBIN 12.7 g/dL (13.3-17.7); LYMPHOCYTES # (AUTO) 1.1 10^3/uL (1.0-4.0); LYMPHOCYTES % (AUTO) 12 % (12-44); MEAN CORPUSCULAR HEMOGLOBIN 27 pg (25-34); MEAN CORPUSCULAR HGB CONC 30 g/dL (32-36); MEAN CORPUSCULAR VOLUME 88 fL (80-99); MEAN PLATELET VOLUME 10.9 fL (9.0-12.2); MONOCYTES # (AUTO) 1.1 10^3/uL (0.0-1.0); MONOCYTES % (AUTO) 13 % (0-12); NEUTROPHILS # (AUTO) 6.1 10^3/uL (1.8-7.8); NEUTROPHILS % (AUTO) 69 % (42-75); PLATELET COUNT 198 10^3/uL (130-400); WHITE BLOOD COUNT 8.8 10^3/uL (4.3-11.0)
[2021-10-06 04:14] LABS: ABG BASE EXCESS 5.8 MMOL/L (-2.5-2.5); ABG OXYGEN SATURATION 99 % (94-100); ABG PCO2 42 MMHG (35-45); ABG PH 7.46 (7.37-7.43); ABG PO2 100 MMHG (79-93); ABG TCO2 31.1 MMOL/L (21.0-31.0)
[2021-10-06 04:16] LABS: ALLENS TEST ART LINE; INSPIRED O2 40%; PATIENT TEMP 36.4; VENTILATOR YES
[2021-10-06 04:29] LABS: ALBUMIN 2.4 GM/DL (3.2-4.5)
[2021-10-06 04:31] LABS: TOTAL PROTEIN 5.3 GM/DL (6.4-8.2)
[2021-10-06 04:33] LABS: BILIRUBIN,TOTAL 1.5 MG/DL (0.1-1.0)
[2021-10-06 04:35] LABS: CREATININE SERUM 0.61 MG/DL (0.60-1.30); PHOSPHORUS 2.2 MG/DL (2.3-4.7)
[2021-10-06 04:38] LABS: MAGNESIUM 1.2 MG/DL (1.6-2.4)
[2021-10-06] MEDS: POTASSIUM CL 10MEQ/50ML IVPB 50 ML IV SCH ×9 (05:18→13:01)
[2021-10-06] MEDS: MAGNESIUM 1 GM/100 ML IVPB 100 ML IV SCH ×5 (05:18→08:30)
[2021-10-06] MEDS: KCL 20 MEQ TAB (K-DUR) PO SCH (05:22)
[2021-10-06] MEDS: fentaNYL DRIP PRE-MIX 250 ML IV SCH ×3 (05:58→20:00)
[2021-10-06 06:07] VITALS: BP 129/83
[2021-10-06] MEDS: MEROPENEM 500 MG in NS (IVPB) 100 ML IV SCH ×4 (06:14→23:32)
[2021-10-06] MEDS: FUROSEMIDE 40 MG/4 ML INJ (LASIX) IVP SCH ×2 (06:25→16:18)
[2021-10-06] MEDS: PANTOPRAZOLE 40 MG (PROTONIX) VIAL IV SCH (08:31)
[2021-10-06] MEDS: APIXABAN 5 MG (ELIQUIS) TABLET PO SCH ×2 (08:31→20:00)
[2021-10-06] MEDS: AZITHROMYCIN INJECTION 250 MG in NS (IVPB) 250 ML IV SCH (09:23)
[2021-10-06 11:57] VITALS: BP 90/55
--- NOTE | 2021-10-06 12:28 | Tele-ICU Progress Note ---
Subjective Date Seen by a Provider: Oct 06, 2021 Time Seen by a Provider: 09:15 Sepsis Event Evaluation Height, Weight, BMI Height: '" Weight: lbs. oz. kg; 26.14 BMI Method: Focused Exam Time of Focused Exam: 05:36 Exam Exam Patient acknowledged, consented, and participated in this virtual visit which was conducted using real time audio/video Vital Signs Date Time Temp Pulse Resp B/P (MAP) Pulse Ox O2 Delivery O2 Flow Rate FiO2 10/06/21 12:19 91 Mechanical Ventilator 25 10/06/21 12:10 118 106/64 10/06/21 12:00 118 18 88/54 93 Mechanical Ventilator 25.00 10/06/21 11:57 114 18 94 25 10/06/21 11:45 36.4 10/06/21 11:44 25 10/06/21 11:00 105 18 97/61 94 Mechanical Ventilator 25.00 10/06/21 10:01 113 81/53 10/06/21 10:00 106 17 82/55 95 Mechanical Ventilator 25.00 10/06/21 09:25 107 129/83 10/06/21 09:00 114 17 114/73 93 Mechanical Ventilator 25.00 10/06/21 08:11 94 Mechanical Ventilator 25 10/06/21 08:00 112 17 134/80 94 Mechanical Ventilator 25.00 10/06/21 07:30 Mechanical Ventilator 25.00 10/06/21 07:30 36.9 10/06/21 07:14 25 10/06/21 07:00 121 10/06/21 07:00 121 19 141/83 93 Mechanical Ventilator 28.00 10/06/21 06:07 107 17 93 25 10/06/21 06:00 104 12 95 Mechanical Ventilator 28.00 10/06/21 05:46 Mechanical Ventilator 25.00 10/06/21 05:00 61 18 95 Mechanical Ventilator 28.00 10/06/21 04:00 79 18 95 Mechanical Ventilator 28.00 10/06/21 04:00 36.0 10/06/21 04:00 28 10/06/21 04:00 96 Mechanical Ventilator 28 10/06/21 03:00 65 17 95 Mechanical Ventilator 28.00 10/06/21 02:22 66 18 95 28 10/06/21 02:00 68 17 95 Mechanical Ventilator 28.00 10/06/21 01:11 66 10/06/21 01:00 53 26 95 Mechanical Ventilator 28.00 10/06/21 00:00 94 Mechanical Ventilator 28 10/06/21 00:00 28 10/06/21 00:00 52 26 94 Mechanical Ventilator 28.00 10/05/21 23:41 Mechanical Ventilator 28.00 10/05/21 23:35 36.2 10/05/21 23:22 85 18 93 21 10/05/21 23:00 76 94 Mechanical Ventilator 30.00 10/05/21 22:00 90 95 Mechanical Ventilator 30.00 10/05/21 21:00 80 92 Mechanical Ventilator 30.00 10/05/21 20:54 Mechanical Ventilator 30.00 10/05/21 20:00 56 93 Mechanical Ventilator 21.00 10/05/21 20:00 90 Mechanical Ventilator 21 10/05/21 20:00 21 10/05/21 19:59 36.7 10/05/21 19:00 69 93 Mechanical Ventilator 21.00 10/05/21 19:00 60 10/05/21 18:43 64 18 93 21 10/05/21 18:41 84 103/81 10/05/21 18:00 84 92 Mechanical Ventilator 21.00 10/05/21 17:00 55 Mechanical Ventilator 21.00 10/05/21 16:00 58 94 Mechanical Ventilator 21.00 10/05/21 15:50 60 10/05/21 15:32 91 Mechanical Ventilator 21 10/05/21 15:15 56 103/81 10/05/21 15:12 36.5 10/05/21 15:12 21 10/05/21 15:00 73 94 Mechanical Ventilator 21.00 10/05/21 14:41 56 18 94 21 10/05/21 14:00 58 91 Mechanical Ventilator 21.00 10/05/21 13:00 66 10/05/21 13:00 62 94 Mechanical Ventilator 21.00 I & O 10/06/21 07:00 Intake Total 8327 ml Output Total 6575 ml Balance 1752 ml Height & Weight Height: '" Weight: lbs. oz. kg; 26.14 BMI Method: General Appearance: Chronically ill, Other (Patient sedated and on ventilator) HEENT: PERRL/EOMI (3 mm reactive); No Moist Mucous Membranes ( dry oral mucosa cracked lips) Neck: Full Range of Motion, Non Tender Respiratory: Lungs Clear, Normal Breath Sounds Cardiovascular: Regular Rate, Rhythm Capillary Refill: Less Than 3 Seconds Peripheral Pulses: 2+ Radial Pulses (R), 2+ Radial Pulses (L) Gastrointestinal: soft, no organomegaly Extremity: Normal Capillary Refill, No Pedal Edema Neurologic/Psychiatric: Other (GCS of 10. Patient is caked and dirt. Follows some commands but does not answer with meaningful responses for us.) Skin: Normal Color Results Lab Laboratory Tests 10/05/21 03:40 10/06/21 03:54 10/06/21 11:30 Assessment/Plan Assessment/Plan Tele-ICU Physician , Progress Note ) Available chart/ vitals / labs / Images reviewed Video assessment done using teleICU camera, rest of exam as per RN Discussed with RN , EXAM PER RN Events overnight : Afebrile FiO2 - 25 I/O = neg Drips: Sedation gtt: ( RASS -3 ) fent 150 , propofol 50 VENT SETTINGS and ABG reviewed candidate for SBT today REVIEWED Cardiovascular Stability / Sedation Score / FI02/PEEP / ABG / CXR Pressors: , hemodynamically stable Consultants: Hospital course: 10/02 ARF ., AMS, PNA , rhabdo 10/03 - off levo 10/04 - fio2 25 % fio2 10/06 - A FIB RVR A/P Acute resp failure - intubated 10/02 - assess for SBT when mental status improved - CPM now PNA , RUL ( covid neg = z mqx - merrem - repeat cxr tomorrow - ? stop abx ( 5 days acute mental status change - CTH 10/02 neg - _ met and amthet in urine - on propofol and fentanyl - with decreasing doses is agitated , not follows coimmands PAF , now afib RVR 10/06 - as per cards -as per cards on eliquis Elevated LFT - neg hepatitis and HIV panel- improving Rhabdo - cont hydration . off bicarb gtt FLAKITA - cont hydration Coagulopathy - ? due to liver failure - follow - IMPROVING Elv trop - cards consulted Lines : right IJ 10/02 (Central Line Necessity Reviewed) Locke: 10/02 OG: + Nutrition: TF Analgesia: Anxiety/ delirium VTE Prophylaxis: eliquis Stress Ulcer Prophylaxis: ppi Glycemic Control: Plans in collaboration with bedside consultants and IM MDs. Discussed with RN to reach out if any questions or concerns A total of 35 minutes of critical care time was devoted to this patient today, required to treat and/or prevent further deterioration of critical care condition ( as above) . TAE AGUAYO MD Oct 06, 2021 12:28
--- NOTE | 2021-10-06 13:05 | Progress Note - Hospitalist ---
RAMA MAE 10/06/21 1305: Subjective HPI/CC On Admission Date Seen by Provider: Oct 06, 2021 Time Seen by Provider: 08:00 Chief complaint: Respiratory failure History present illness: This is a 41-year-old white male known to me from multiple hospital stays all of them related to methamphetamine use who presented to the ER with respiratory failure. He was intubated. He has a history of congestive heart failure and atrial fibrillation. ICU has been consulted along with cardiology. He on the vent. Subjective/Events-last exam Patient still on ventilator. Vent settings are 500/18/5.0/25%. Patient is tachycardic today, HR 124 while I was in the room. EKG showed some atrial flut ter, will let cardiology know. Patient's potassium is down to 3.0 today, will continue to supplement. Patient's intubation tube has some secretions in it. RN reported this initially and will get it taken care of. Patient unable to give a review of systems. Patient's blood pressure was 120/87 when I was in the room, but shortly after his SBP was dropping into the 70's and norepinephrine was restarted. Focused Exam Time of Focused Exam: 05:36 Objective Exam Vital Signs Vital Signs Date Time Temp Pulse Resp B/P (MAP) Pulse Ox O2 Delivery O2 Flow Rate FiO2 10/06/21 12:19 91 Mechanical Ventilator 25 10/06/21 12:10 118 106/64 10/06/21 12:00 18 25.00 10/06/21 11:45 36.4 Capillary Refill : Less Than 3 Seconds General Appearance: Other (sedated and on ventilator ) Respiratory: No Accessory Muscle Use, No Respiratory Distress Cardiovascular: Tachycardia, Other (atrial flutter on EKG) Rectal: Deferred Neurologic/Psychiatric: Other (sedated and on ventilator) Results/Procedures Lab Laboratory Tests 10/06/21 03:54 10/06/21 11:30 Patient resulted labs reviewed. Assessment/Plan Assessment and Plan Assess & Plan/Chief Complaint Assessment: Acute respiratory failure requiring intubation Acute respiratory acidosis with metabolic acidosis Severe sepsis Bilateral pneumonia Leukocytosis 33,000 Acute rhabdomyolysis Elevated troponin Coagulopathy INR 4.1 Bandemia Liver shock Atrial fibrillation currently rate controlled Congestive heart failure Methamphetamine use Plan: Vent management appreciated by eICU Poor prognosis Multisystem organ failure noted 10/03/2021: Supportive care eICU appreciated Cardiology appreciated Patient will require intubation if extubated too soon to do methamphetamine withdrawal process just like the previous 6 admissions 10/04/2021: Ventilator management Monitor closely 10/05/2021: Ventilator management Monitor closely 10/06/2021: Atrial flutter management per cardiology Restart norepinephrine Ventilator management Monitor closely ERIN COLE DO 10/07/21 0600: Subjective Subjective/Events-last exam Pt remains intubated Tachycardia noted and its AFIB Consult cardiology Vent setting FIO2 of 25% EKG shows AFIB Objective Exam General Appearance: No Apparent Distress, WD/WN, Chronically ill, Other (sedated and on ventilator ) Respiratory: Lungs Clear, Normal Breath Sounds Assessment/Plan Assessment and Plan Assess & Plan/Chief Complaint Ventilator management appreciated Consult cardiology for A. fib with RVR Supervisory-Addendum Brief Verification & Attestation Participated in pt care: history, MDM, physical Personally performed: exam, history, MDM, supervision of care Care discussed with: Medical Student Procedures: n/a Results interpretation: Verified all documentation Verification and Attestation of Medical Student E/M Service A medical student performed and documented this service in my presence. I reviewed and verified all information documented by the medical student and made modifications to such information, when appropriate. I personally performed the physical exam and medical decision making. Erin Cole, Oct 07, 2021,05:59 RAMA MAE Oct 06, 2021 13:05 ERIN COLE DO Oct 07, 2021 06:00
[2021-10-06 14:58] VITALS: BP 91/55
--- NOTE | 2021-10-06 16:27 | Cardiology Progress Note ---
Progress Note-Cardiology Events since last exam Date Seen by Provider: Oct 06, 2021 Time Seen by Provider: 16:25 Events since last exam I am following him due to elevated troponin in the setting of cardiomyopathy and paroxysmal atrial fibrillation now admitted with acute respiratory failure due to probable methamphetamine overdose. He remains intubated and sedated in the intensive care unit. This morning he went into atrial flutter/fibrillation. He also developed recurrent shock and had to be placed back on norepinephrine infusion. I cannot obtain any history from the patient due to his sedation. I did speak with his nurse of today. Certain portions of this document may have been dictated utilizing voice recognition technology. Inherent to this technology, typographical and grammatical errors may exist. As much as I am diligent to identify and correct these mistakes, some errors may remain in the document. Vitals Last set of Vitals Signs Vital Signs 10/06/21 10/06/21 10/06/21 10/06/21 15:00 15:02 15:39 16:18 Temp 36.2 Pulse 121 Resp 13 B/P (MAP) 107/60 Pulse Ox 94 O2 Delivery Mechanical Ventilator O2 Flow Rate 30.00 FiO2 30 Labs Labs Laboratory Tests 10/06/21 03:54 10/06/21 11:30 Exam Vital Signs Vital Signs Date Time Temp Pulse Resp B/P (MAP) Pulse Ox O2 Delivery O2 Flow Rate FiO2 10/06/21 16:18 121 107/60 10/06/21 15:39 36.2 10/06/21 15:02 30 10/06/21 15:00 13 94 Mechanical Ventilator 30.00 Physical Exam General: Intubated and sedated. Well nourished and appears stated age. Eye: Conjunctivae are clear. There are no xanthelasma. HENT: Normocephalic. Atraumatic. Carotid pulsations 2/2 without bruits. Neck: Jugular venous pressure does not appear elevated. No thyromegaly appreciated. Respiratory: Symmetrical expansion bilaterally. Coarse breath sounds due to the ventilator. Cardiovascular: Tachycardia with irregular rhythm. No murmur. No gallop. Point of maximal impulse is not appear displaced. Good pulses equal in all extremities. No edema. Gastrointestinal: Soft. Normal bowel sounds. Skin: Skin turgor is normal. There is no pallor. Musculoskeletal: No obvious deformities. Neurologic: Intubated and sedated. Psychiatric: Not obtainable due to clinical status. Labs Laboratory Tests Test 10/05/21 17:30 10/05/21 23:32 10/06/21 03:54 10/06/21 11:13 Range/Units Glucometer 78 96 127 H 70-110 MG/DL White Blood Count 8.8 4.3-11.0 10^3/uL Red Blood Count 4.75 4.30-5.52 10^6/uL Hemoglobin 12.7 L 13.3-17.7 g/dL Hematocrit 42 40-54 % Mean Corpuscular Volume 88 80-99 fL Mean Corpuscular Hemoglobin 27 25-34 pg Mean Corpuscular Hemoglobin Concent 30 L 32-36 g/dL Red Cell Distribution Width 17.4 H 10.0-14.5 % Platelet Count 198 130-400 10^3/uL Mean Platelet Volume 10.9 9.0-12.2 fL Immature Granulocyte % (Auto) 0 % Neutrophils (%) (Auto) 69 42-75 % Lymphocytes (%) (Auto) 12 12-44 % Monocytes (%) (Auto) 13 H 0-12 % Eosinophils (%) (Auto) 6 0-10 % Basophils (%) (Auto) 0 0-10 % Neutrophils # (Auto) 6.1 1.8-7.8 10^3/uL Lymphocytes # (Auto) 1.1 1.0-4.0 10^3/uL Monocytes # (Auto) 1.1 H 0.0-1.0 10^3/uL Eosinophils # (Auto) 0.5 H 0.0-0.3 10^3/uL Basophils # (Auto) 0.0 0.0-0.1 10^3/uL Immature Granulocyte # (Auto) 0.0 0.0-0.1 10^3/uL Blood Gas Puncture Site RIGHT RADIAL Blood Gas Patient Temperature 36.4 Arterial Blood pH 7.46 H 7.37-7.43 Arterial Blood Partial Pressure CO2 42 35-45 MMHG Arterial Blood Partial Pressure O2 100 H 79-93 MMHG Arterial Blood HCO3 30 H 23-27 MMOL/L Arterial Blood Total CO2 31.1 H 21.0-31.0 MMOL/L Arterial Blood Oxygen Saturation 99 94-100 % Arterial Blood Base Excess 5.8 H -2.5-2.5 MMOL/L Michele Test ART LINE Blood Gas Ventilator Setting YES Blood Gas Inspired Oxygen 40% Sodium Level 145 135-145 MMOL/L Potassium Level 3.0 L 3.6-5.0 MMOL/L Chloride Level 108 H 98-107 MMOL/L Carbon Dioxide Level 27 21-32 MMOL/L Anion Gap 10 5-14 MMOL/L Blood Urea Nitrogen 11 7-18 MG/DL Creatinine 0.61 0.60-1.30 MG/DL Estimat Glomerular Filtration Rate 145 BUN/Creatinine Ratio 18 Glucose Level 108 H 70-105 MG/DL Calcium Level 8.0 L 8.5-10.1 MG/DL Corrected Calcium 9.3 8.5-10.1 MG/DL Phosphorus Level 2.2 L 2.3-4.7 MG/DL Magnesium Level 1.2 L 1.6-2.4 MG/DL Total Bilirubin 1.5 H 0.1-1.0 MG/DL Aspartate Amino Transf (AST/SGOT) 160 H 5-34 U/L Alanine Aminotransferase (ALT/SGPT) 161 H 0-55 U/L Alkaline Phosphatase 135 40-136 U/L Total Protein 5.3 L 6.4-8.2 GM/DL Albumin 2.4 L 3.2-4.5 GM/DL Triglycerides Level 143 <150 MG/DL Test 10/06/21 11:30 Range/Units Potassium Level 3.3 L 3.6-5.0 MMOL/L Diagnosis/Problems Diagnosis/Problems (1) Elevated troponin Status: Acute Assessment & Plan: He has a marginally elevated troponin level. This is in the presence of significant elevation of the creatinine kinase level which may be due to rhabdomyolysis. I suspect the troponin elevation is related to the elevated creatinine kinase level and DOES NOT represent an acute myocardial infarction. This is most likely noncardiac elevation of the troponin level. I do not see any indication for an invasive or noninvasive ischemic evaluation at this time. Furthermore, due to his methamphetamine abuse and noncompliance with medical therapy, he would not be a good candidate for an invasive cardiac e valuation. (2) Paroxysmal atrial fibrillation Status: Chronic Assessment & Plan: He has had intermittent atrial fibrillation during previous hospitalizations and atrial fibrillation recurred this morning. I previously resumed his apixaban for stroke prophylaxis. He is supposed to be taking apixaban for stroke prophylaxis and digoxin and metoprolol for rate contro at home. Given his history of methamphetamine overdoses, he is probably not a good candidate for long-term use of digoxin. Resume metoprolol when his blood pressure will tolerate. Given the persistent tachycardia with the atrial fibrillation, I will start him on an amiodarone infusion. Hopefully, he will not need to go home on oral amiodarone. (3) Abnormal ECG Status: Acute Assessment & Plan: He did have progressive worsening of T wave inversion in the anterolateral leads but this seems to have stabilized. His head CT did not show any acute abnormalities to explain the diffuse T wave changes. Due to his medication noncompliance and methamphetamine abuse, he would not be a good candidate for an invasive cardiac evaluation because if he needs to have coronary revascularization, he would need to be compliant with medication. (4) Cardiomyopathy Status: Chronic Assessment & Plan: A follow-up echocardiogram from today shows an ejection fraction of 30-35%. This is similar to the transesophageal echocardiogram from November,. I recommend we resume his metoprolol succinate which he was supposed to be taking at home once his blood pressures improve. He has been on norepinephrine infusion intermittently due to shock and as such, beta-ryan has been on hold. (5) Acute on chronic systolic heart failure Status: Acute Assessment & Plan: He has diffuse changes on his chest x-ray from the emergency room. His chest x-rays have improved. I had previously started him on intravenous Lasix due to the large volume of IV fluid he has been receiving for the rhabdomyolysis. The eICU has ordered a chest x-ray for the morning. (6) Rhabdomyolysis Status: Acute Assessment & Plan: He is getting intravenous hydration due to the rhabdomyolysis. His CK levels have been improving. His renal function remains reasonably well-preserved. (7) Acute kidney injury Status: Acute Assessment & Plan: Probably related to the rhabdomyolysis. This has improved with the IV fluids he is receiving for the rhabdomyolysis. (8) Noncompliance with medication regimen Status: Chronic Assessment & Plan: This makes chronic management of his medical conditions extremely difficult. Problem Qualifiers (1) Rhabdomyolysis: Rhabdomyolysis type: non-traumatic Qualified Codes: M62.82 - Rhabdomyolysis DONAVAN RODRIGUEZ JR, MD Oct 06, 2021 16:27
[2021-10-06] MEDS: AMIODARONE INJECTION 450 MG in D5W IV SOLUTION (EXCEL) 250 ML IV SCH (17:48)
[2021-10-06 18:14] VITALS: BP 97/61
[2021-10-06 21:17] VITALS: BP 80/47
[2021-10-07 01:23] VITALS: BP 108/74
[2021-10-07] MEDS: RT-ALBUTEROL SULF 2.5 MG/3 ML PRE-MIX VIAL INH SCH ×6 (01:23→21:47)
[2021-10-07] MEDS ORDERED: D5W IV SOLUTION (EXCEL) 0 ML IV ONE (01:37)
[2021-10-07] MEDS: AMIODARONE INJECTION 450 MG in D5W IV SOLUTION (EXCEL) 250 ML IV SCH (01:48)
[2021-10-07] MEDS: fentaNYL DRIP PRE-MIX 250 ML IV SCH ×4 (01:56→20:36)
[2021-10-07] MEDS: PROPOFOL DRIP (ICU) 100 ML IV SCH ×6 (02:50→22:52)
[2021-10-07 04:37] LABS: ABG BASE EXCESS 7.5 MMOL/L (-2.5-2.5); ABG OXYGEN SATURATION 98 % (94-100); ABG PCO2 44 MMHG (35-45); ABG PH 7.46 (7.37-7.43); ABG PO2 97 MMHG (79-93); ABG TCO2 33.1 MMOL/L (21.0-31.0)
[2021-10-07 04:38] LABS: BASOPHILS % (AUTO) 0 % (0-10); EOSINOPHILS # (AUTO) 0.7 10^3/uL (0.0-0.3); EOSINOPHILS % (AUTO) 8 % (0-10); HEMATOCRIT 42 % (40-54); HEMOGLOBIN 13.2 g/dL (13.3-17.7); LYMPHOCYTES % (AUTO) 13 % (12-44); MEAN CORPUSCULAR HEMOGLOBIN 27 pg (25-34); MEAN CORPUSCULAR HGB CONC 31 g/dL (32-36); MEAN CORPUSCULAR VOLUME 87 fL (80-99); MEAN PLATELET VOLUME 11.1 fL (9.0-12.2); MONOCYTES # (AUTO) 1.2 10^3/uL (0.0-1.0); MONOCYTES % (AUTO) 15 % (0-12); NEUTROPHILS # (AUTO) 5.3 10^3/uL (1.8-7.8); NEUTROPHILS % (AUTO) 64 % (42-75); PLATELET COUNT 218 10^3/uL (130-400); WHITE BLOOD COUNT 8.4 10^3/uL (4.3-11.0)
[2021-10-07 04:40] LABS: ALLENS TEST ART LINE; INSPIRED O2 30%; PATIENT TEMP 36.4; VENTILATOR YES
[2021-10-07 04:55] LABS: ALBUMIN 2.3 GM/DL (3.2-4.5); POTASSIUM 3.4 MMOL/L (3.6-5.0)
[2021-10-07 04:57] LABS: CALCIUM 8.1 MG/DL (8.5-10.1)
[2021-10-07 04:58] LABS: TOTAL PROTEIN 5.3 GM/DL (6.4-8.2)
[2021-10-07 05:00] LABS: BILIRUBIN,TOTAL 1.2 MG/DL (0.1-1.0)
[2021-10-07 05:01] LABS: PHOSPHORUS 3.2 MG/DL (2.3-4.7)
[2021-10-07 05:02] LABS: CREATININE SERUM 0.58 MG/DL (0.60-1.30)
[2021-10-07 05:04] LABS: MAGNESIUM 1.4 MG/DL (1.6-2.4)
[2021-10-07] MEDS: NS IV 1000 ML 1,000 ML IV SCH ×4 (05:20→21:25)
--- NOTE | 2021-10-07 05:54 | Diagnostic Imaging Report ---
Indication: Respiratory failure Portable chest 5:24 AM ET tube projects over the trachea. NG tube appears to enter the stomach. Right IJ central line tip projects over the SVC. There is some alveolar infiltrates in both lower lungs with possible small left pleural effusion. IMPRESSION: Bilateral lower lobe infiltrates with small left pleural effusion. No improvement compared to 10/05/2021. Dictated by: Dictated on workstation # [id number]
[2021-10-07] MEDS: FUROSEMIDE 40 MG/4 ML INJ (LASIX) IVP SCH ×2 (06:20→16:34)
[2021-10-07] MEDS: KCL 20 MEQ TAB (K-DUR) PO SCH (06:20)
[2021-10-07] MEDS: MEROPENEM 500 MG in NS (IVPB) 100 ML IV SCH ×4 (06:20→23:20)
[2021-10-07] MEDS: NOREPINEPHRINE 8 MG/250 ML 250 ML IV SCH ×2 (06:20→17:32)
[2021-10-07] MEDS: MAGNESIUM 1 GM/100 ML IVPB 100 ML IV SCH ×3 (06:34→08:32)
[2021-10-07] MEDS: POTASSIUM CL 10MEQ/50ML IVPB 50 ML IV SCH ×3 (06:34→08:32)
[2021-10-07 07:28] VITALS: BP 120/79
[2021-10-07] MEDS: APIXABAN 5 MG (ELIQUIS) TABLET PO SCH ×2 (09:04→20:36)
[2021-10-07] MEDS: PANTOPRAZOLE 40 MG (PROTONIX) VIAL IV SCH (09:04)
[2021-10-07 10:50] VITALS: BP 117/81
--- NOTE | 2021-10-07 12:31 | Progress Note - Hospitalist ---
RAMA MAE 10/07/21 1231: Subjective HPI/CC On Admission Date Seen by Provider: Oct 07, 2021 Time Seen by Provider: 08:00 Chief complaint: Respiratory failure History present illness: This is a 41-year-old white male known to me from multiple hospital stays all of them related to methamphetamine use who presented to the ER with respiratory failure. He was intubated. He has a history of congestive heart failure and atrial fibrillation. ICU has been consulted along with cardiology. He on the vent. Subjective/Events-last exam Patient still intubated and on ventilator. Vent settings are 500/18/5.0/30%. Patient started on amiodarone for his Afib with RVR yesterday. Repeat chest x- ray showed no acute improvement. Focused Exam Time of Focused Exam: 05:36 Objective Exam Vital Signs Vital Signs Date Time Temp Pulse Resp B/P (MAP) Pulse Ox O2 Delivery O2 Flow Rate FiO2 10/07/21 12:00 30 10/07/21 12:00 36.6 10/07/21 12:00 96 Mechanical Ventilator 10/07/21 10:50 90 18 10/07/21 10:44 137/88 10/07/21 10:00 30.00 Capillary Refill : Less Than 3 Seconds General Appearance: Other (Sedated and ventilator) Respiratory: No Accessory Muscle Use, No Respiratory Distress Cardiovascular: No Murmur, Normal Peripheral Pulses, Tachycardia Results/Procedures Lab Laboratory Tests 10/07/21 04:23 Patient resulted labs reviewed. Assessment/Plan Assessment and Plan Assess & Plan/Chief Complaint Assessment: Acute respiratory failure requiring intubation Acute respiratory acidosis with metabolic acidosis Severe sepsis Bilateral pneumonia Leukocytosis 33,000 Acute rhabdomyolysis Elevated troponin Coagulopathy INR 4.1 Bandemia Liver shock Atrial fibrillation currently rate controlled Congestive heart failure Methamphetamine use Plan: Vent management appreciated by eICU Poor prognosis Multisystem organ failure noted 10/03/2021: Supportive care eICU appreciated Cardiology appreciated Patient will require intubation if extubated too soon to do methamphetamine withdrawal process just like the previous 6 admissions 10/04/2021: Ventilator management Monitor closely 10/05/2021: Ventilator management Monitor closely 10/06/2021: Atrial flutter management per cardiology Restart norepinephrine Ventilator management Monitor closely 10/07/2021: Appreciate cardiology Appreciate eICU Ventilator management Monitor closely BK COLE DO 10/08/21 0539: Subjective Subjective/Events-last exam Pt about the darin On Amiodarone drip for AFIB with RVR Vent settings are 500/18/5/30 ABG is 7.46/44/97 Potassium is much improved at 3.4 Objective Exam General Appearance: Chronically ill, Other (Sedated and ventilator) Respiratory: Lungs Clear, Normal Breath Sounds Cardiovascular: Regular Rate, Rhythm Assessment/Plan Assessment and Plan Assess & Plan/Chief Complaint Ventilator management appreciated Amiodarone drip Appreciate Dr. Cartagena Supervisory-Addendum Brief Verification & Attestation Participated in pt care: history, MDM, physical Personally performed: exam, history, MDM, supervision of care Care discussed with: Medical Student Procedures: n/a Results interpretation: Verified all documentation Verification and Attestation of Medical Student E/M Service A medical student performed and documented this service in my presence. I revi ewed and verified all information documented by the medical student and made modifications to such information, when appropriate. I personally performed the physical exam and medical decision making. Bk Cole Oct 08, 2021,05:38 RAMA MAE Oct 07, 2021 12:31 BK COLE DO Oct 08, 2021 05:39
[2021-10-07 14:42] VITALS: BP 102/59
--- NOTE | 2021-10-07 15:55 | Cardiology Progress Note ---
Progress Note-Cardiology Events since last exam Date Seen by Provider: Oct 07, 2021 Time Seen by Provider: 15:49 Events since last exam I am seeing him due to his history of atrial fibrillation now in recurrent a trial fibrillation, cardiomyopathy, and elevated troponin. He remains in the intensive care unit intubated and sedated. I was not able to obtain any history from the patient due to his clinical status. I did speak to his nurse of today. He has remained in atrial flutter and fibrillation since starting intravenous amiodarone infusion on 10/06. Certain portions of this document may have been dictated utilizing voice recognition technology. Inherent to this technology, typographical and gramm atical errors may exist. As much as I am diligent to identify and correct these mistakes, some errors may remain in the document. Vitals Last set of Vitals Signs Vital Signs 10/07/21 10/07/21 10/07/21 10/07/21 13:39 14:42 15:00 15:46 Temp 36.4 Pulse 81 Resp 17 B/P (MAP) 103/70 Pulse Ox 95 O2 Delivery Mechanical Ventilator O2 Flow Rate 30.00 FiO2 30 Labs Labs Laboratory Tests 10/07/21 04:23 Exam Vital Signs Vital Signs Date Time Temp Pulse Resp B/P (MAP) Pulse Ox O2 Delivery O2 Flow Rate FiO2 10/07/21 15:46 36.4 10/07/21 15:00 81 17 95 Mechanical Ventilator 30.00 10/07/21 14:42 30 Physical Exam General: Intubated and sedated. Well nourished and appears stated age. Eye: Conjunctivae are clear. There are no xanthelasma. HENT: Normocephalic. Atraumatic. Carotid pulsations 2/2 without bruits. Neck: Jugular venous pressure does not appear elevated. No thyromegaly megan reciated. Respiratory: Symmetrical expansion bilaterally. Coarse breath sounds due to the ventilator. Cardiovascular: Normal rate. Irregular rhythm. No murmur. No gallop. Point of maximal impulse is not appear displaced. Good pulses equal in all extremities. No edema. Gastrointestinal: Soft. Normal bowel sounds. Skin: Skin turgor is normal. There is no pallor. Musculoskeletal: No obvious deformities. Neurologic: Intubated and sedated. Psychiatric: Not obtainable due to clinical status. Labs Laboratory Tests Test 10/06/21 17:36 10/06/21 22:22 10/07/21 04:23 Range/Units Glucometer 119 H 117 H 70-110 MG/DL White Blood Count 8.4 4.3-11.0 10^3/uL Red Blood Count 4.82 4.30-5.52 10^6/uL Hemoglobin 13.2 L 13.3-17.7 g/dL Hematocrit 42 40-54 % Mean Corpuscular Volume 87 80-99 fL Mean Corpuscular Hemoglobin 27 25-34 pg Mean Corpuscular Hemoglobin Concent 31 L 32-36 g/dL Red Cell Distribution Width 17.3 H 10.0-14.5 % Platelet Count 218 130-400 10^3/uL Mean Platelet Volume 11.1 9.0-12.2 fL Immature Granulocyte % (Auto) 1 % Neutrophils (%) (Auto) 64 42-75 % Lymphocytes (%) (Auto) 13 12-44 % Monocytes (%) (Auto) 15 H 0-12 % Eosinophils (%) (Auto) 8 0-10 % Basophils (%) (Auto) 0 0-10 % Neutrophils # (Auto) 5.3 1.8-7.8 10^3/uL Lymphocytes # (Auto) 1.0 1.0-4.0 10^3/uL Monocytes # (Auto) 1.2 H 0.0-1.0 10^3/uL Eosinophils # (Auto) 0.7 H 0.0-0.3 10^3/uL Basophils # (Auto) 0.0 0.0-0.1 10^3/uL Immature Granulocyte # (Auto) 0.0 0.0-0.1 10^3/uL Blood Gas Puncture Site RIGHT RADIAL Blood Gas Patient Temperature 36.4 Arterial Blood pH 7.46 H 7.37-7.43 Arterial Blood Partial Pressure CO2 44 35-45 MMHG Arterial Blood Partial Pressure O2 97 H 79-93 MMHG Arterial Blood HCO3 32 H 23-27 MMOL/L Arterial Blood Total CO2 33.1 H 21.0-31.0 MMOL/L Arterial Blood Oxygen Saturation 98 94-100 % Arterial Blood Base Excess 7.5 H -2.5-2.5 MMOL/L Michele Test ART LINE Blood Gas Ventilator Setting YES Blood Gas Inspired Oxygen 30% Sodium Level 142 135-145 MMOL/L Potassium Level 3.4 L 3.6-5.0 MMOL/L Chloride Level 106 98-107 MMOL/L Carbon Dioxide Level 28 21-32 MMOL/L Anion Gap 8 5-14 MMOL/L Blood Urea Nitrogen 9 7-18 MG/DL Creatinine 0.58 L 0.60-1.30 MG/DL Estimat Glomerular Filtration Rate 154 BUN/Creatinine Ratio 16 Glucose Level 107 H 70-105 MG/DL Calcium Level 8.1 L 8.5-10.1 MG/DL Corrected Calcium 9.5 8.5-10.1 MG/DL Phosphorus Level 3.2 2.3-4.7 MG/DL Magnesium Level 1.4 L 1.6-2.4 MG/DL Total Bilirubin 1.2 H 0.1-1.0 MG/DL Aspartate Amino Transf (AST/SGOT) 103 H 5-34 U/L Alanine Aminotransferase (ALT/SGPT) 118 H 0-55 U/L Alkaline Phosphatase 141 H 40-136 U/L Total Protein 5.3 L 6.4-8.2 GM/DL Albumin 2.3 L 3.2-4.5 GM/DL Diagnosis/Problems Diagnosis/Problems (1) Paroxysmal atrial fibrillation Status: Chronic Assessment & Plan: He has recurrent atrial fibrillation during this ho spitalization. He is on apixaban for stroke prophylaxis. Unclear whether or not he was taking this at home. He is supposed to be taking apixaban for stroke prophylaxis and digoxin and metoprolol for rate contro at home. Given his history of methamphetamine overdoses, he is probably not a good candidate for long-term use of digoxin. I recommend we resume metoprolol when his blood pressure will tolerate. I will transition the intravenous amiodarone over to oral amiodarone when the current infusion bag is empty. If he is still in atrial fibrillation tomorrow, I will plan on a cardioversion. I will not need the assistance of anesthesia since the patient is intubated and sedated. (2) Elevated troponin Status: Acute Assessment & Plan: He has a marginally elevated troponin level. This is in the presence of significant elevation of the creatinine kinase level which may be due to rhabdomyolysis. I suspect the troponin elevation is related to the elevated creatinine kinase level and DOES NOT represent an acute myocardial infarction. This is most likely noncardiac elevation of the troponin level. I do not see any indication for an invasive or noninvasive ischemic evaluation at this time. Furthermore, due to his methamphetamine abuse and noncompliance with medical therapy, he would not be a good candidate for an invasive cardiac evaluation. (3) Abnormal ECG Status: Acute Assessment & Plan: He did have progressive worsening of T wave inversion in the anterolateral leads but this seems to have stabilized. His head CT did not show any acute abnormalities to explain the diffuse T wave changes. As above, due to his medication noncompliance and methamphetamine abuse, he would not be a good candidate for an invasive cardiac evaluation because if he needs to have coronary revascularization, he would need to be compliant with medication. (4) Cardiomyopathy Status: Chronic Assessment & Plan: A follow-up echocardiogram from this admission shows an ejection fraction of 30-35%. This is similar to the transesophageal echocardiogram from November,. I recommend we resume his metoprolol succinate which he was supposed to be taking at home once his blood pressures improve. He has been on norepinephrine infusion intermittently due to shock and as such, beta-ryan has been on hold. We may also want to consider a low-dose NOLVIA inhibitor when his blood pressure improves. (5) Acute on chronic systolic heart failure Status: Acute Assessment & Plan: He has diffuse changes on his chest x-ray from the emergency room. His chest x-rays have improved. I had previously started him on intravenous Lasix due to the large volume of IV fluid he has been receiving for the rhabdomyolysis. His chest x-ray has improved. (6) Rhabdomyolysis Status: Acute Assessment & Plan: He is getting intravenous hydration due to the rhabdomyolysis. His CK levels have been improving. His renal function remains reasonably well-preserved. The intravenous fluids will probably need to be stopped sometime in the near future. The hospitalist is managing this. (7) Acute kidney injury Status: Acute Assessment & Plan: Probably related to the rhabdomyolysis. This has improved with the IV fluids he is receiving for the rhabdomyolysis. (8) Noncompliance with medication regimen Status: Chronic Assessment & Plan: This makes chronic management of his medical conditions extremely difficult. Problem Qualifiers (1) Rhabdomyolysis: Rhabdomyolysis type: non-traumatic Qualified Codes: M62.82 - Rhabdomyolysis DONAVAN RODRIGUEZ JR, MD Oct 07, 2021 15:55
[2021-10-07] MEDS ORDERED: AMIODARONE 200 MG (CORDARONE) TAB ONE ×2 (18:23→18:28)
[2021-10-07] MEDS: AMIODARONE 200 MG (CORDARONE) TAB PO SCH (18:29)
[2021-10-07 18:43] VITALS: BP 113/69
[2021-10-07 21:48] VITALS: BP 118/74
[2021-10-08] MEDS: RT-ALBUTEROL SULF 2.5 MG/3 ML PRE-MIX VIAL INH SCH ×6 (02:31→21:35)
[2021-10-08 02:32] VITALS: BP 110/69
[2021-10-08] MEDS: NOREPINEPHRINE 8 MG/250 ML 250 ML IV SCH ×3 (02:50→23:17)
[2021-10-08] MEDS: NS IV 1000 ML 1,000 ML IV SCH ×2 (02:53→08:06)
[2021-10-08 03:25] LABS: BASOPHILS % (AUTO) 0 % (0-10); EOSINOPHILS # (AUTO) 0.6 10^3/uL (0.0-0.3); EOSINOPHILS % (AUTO) 7 % (0-10); HEMATOCRIT 44 % (40-54); HEMOGLOBIN 13.6 g/dL (13.3-17.7); LYMPHOCYTES # (AUTO) 1.3 10^3/uL (1.0-4.0); LYMPHOCYTES % (AUTO) 14 % (12-44); MEAN CORPUSCULAR HEMOGLOBIN 27 pg (25-34); MEAN CORPUSCULAR HGB CONC 31 g/dL (32-36); MEAN CORPUSCULAR VOLUME 88 fL (80-99); MEAN PLATELET VOLUME 10.3 fL (9.0-12.2); MONOCYTES # (AUTO) 1.3 10^3/uL (0.0-1.0); MONOCYTES % (AUTO) 14 % (0-12); NEUTROPHILS % (AUTO) 65 % (42-75); PLATELET COUNT 238 10^3/uL (130-400); WHITE BLOOD COUNT 9.3 10^3/uL (4.3-11.0)
[2021-10-08 03:26] LABS: ABG OXYGEN SATURATION 97 % (94-100); ABG PCO2 48 MMHG (35-45); ABG PH 7.44 (7.37-7.43); ABG PO2 91 MMHG (79-93)
[2021-10-08 03:27] LABS: ALLENS TEST ARTLINE; INSPIRED O2 30%; PATIENT TEMP 36.7; VENTILATOR YES
[2021-10-08 03:35] LABS: ALBUMIN 2.5 GM/DL (3.2-4.5)
[2021-10-08 03:36] LABS: POTASSIUM 3.7 MMOL/L (3.6-5.0)
[2021-10-08 03:37] LABS: CALCIUM 8.7 MG/DL (8.5-10.1)
[2021-10-08 03:38] LABS: TOTAL PROTEIN 5.8 GM/DL (6.4-8.2)
[2021-10-08] MEDS: KCL 20 MEQ TAB (K-DUR) PO SCH (03:38)
[2021-10-08] MEDS: POTASSIUM CL 10MEQ/50ML IVPB 50 ML IV SCH (03:38)
[2021-10-08 03:40] LABS: BILIRUBIN,TOTAL 1.1 MG/DL (0.1-1.0)
[2021-10-08 03:41] LABS: PHOSPHORUS 3.3 MG/DL (2.3-4.7)
[2021-10-08 03:42] LABS: CREATININE SERUM 0.63 MG/DL (0.60-1.30)
[2021-10-08 03:45] LABS: MAGNESIUM 1.4 MG/DL (1.6-2.4)
[2021-10-08] MEDS: MAGNESIUM 1 GM/100 ML IVPB 100 ML IV SCH ×2 (03:50→04:08)
[2021-10-08] MEDS: PROPOFOL DRIP (ICU) 100 ML IV SCH (04:58)
[2021-10-08] MEDS: MEROPENEM 500 MG in NS (IVPB) 100 ML IV SCH ×3 (05:05→17:02)
[2021-10-08] MEDS: FUROSEMIDE 40 MG/4 ML INJ (LASIX) IVP SCH ×2 (05:07→17:02)
--- NOTE | 2021-10-08 05:43 | Diagnostic Imaging Report ---
CLINICAL INDICATION: Patient with pneumonia. EXAM: Portable chest x-ray semiupright view. COMPARISON: Chest x-ray dated 10/07/2021. FINDINGS: Stable cardiomegaly with mild pulmonary vascular congestion. There is ground glass opacification involving both midlung rueda and both lung bases which is grossly similar to prior study. Possible bilateral pleural effusions. ET tube and feeding tube again seen which are in good position as visualized. Right IJ central line seen in stable good position. IMPRESSION: 1: There is no significant change to this chest x-ray exam with bilateral lung infiltrates and bilateral pleural effusions. 2: There is cardiomegaly with mild pulmonary vascular congestion. 3: Stable lines and tubes. Dictated by: Dictated on workstation # [id number]
[2021-10-08 07:51] VITALS: BP 127/74
[2021-10-08] MEDS: fentaNYL DRIP PRE-MIX 250 ML IV SCH (08:06)
[2021-10-08] MEDS: PANTOPRAZOLE 40 MG (PROTONIX) VIAL IV SCH (08:07)
[2021-10-08] MEDS: AMIODARONE 200 MG (CORDARONE) TAB PO SCH ×2 (08:07→21:17)
[2021-10-08] MEDS: APIXABAN 5 MG (ELIQUIS) TABLET PO SCH ×2 (08:08→21:17)
--- NOTE | 2021-10-08 09:52 | Tele-ICU Progress Note ---
Subjective Date Seen by a Provider: Oct 08, 2021 Time Seen by a Provider: 09:52 Sepsis Event Evaluation Height, Weight, BMI Height: '" Weight: lbs. oz. kg; 26.14 BMI Method: Focused Exam Time of Focused Exam: 05:36 Exam Exam Patient acknowledged, consented, and participated in this virtual visit which was conducted using real time audio/video Vital Signs Date Time Temp Pulse Resp B/P (MAP) Pulse Ox O2 Delivery O2 Flow Rate FiO2 10/08/21 09:00 98 17 96 Mechanical Ventilator 30.00 10/08/21 08:00 93 17 96 Mechanical Ventilator 30.00 10/08/21 07:56 37.0 10/08/21 07:51 98 18 96 30 10/08/21 07:00 93 17 96 Mechanical Ventilator 30.00 10/08/21 07:00 101 10/08/21 06:00 105 19 96 Mechanical Ventilator 30.00 10/08/21 05:00 96 18 96 Mechanical Ventilator 30.00 10/08/21 04:58 95 132/78 10/08/21 04:00 85 17 97 Mechanical Ventilator 30.00 10/08/21 03:00 30 10/08/21 03:00 103 14 98 Mechanical Ventilator 30.00 10/08/21 03:00 36.2 96 18 97 Mechanical Ventilator 30.00 10/08/21 03:00 97 Mechanical Ventilator 30 10/08/21 02:32 89 18 96 30 10/08/21 02:00 90 115/73 Mechanical Ventilator 30.00 10/08/21 01:00 92 17 96 Mechanical Ventilator 30.00 10/08/21 01:00 88 10/08/21 00:00 105 18 97 Mechanical Ventilator 30.00 10/07/21 23:00 30 10/07/21 23:00 96 17 100 Mechanical Ventilator 30.00 10/07/21 23:00 36.1 18 Mechanical Ventilator 30.00 10/07/21 23:00 98 Mechanical Ventilator 30 10/07/21 22:52 96 133/80 10/07/21 22:00 111 18 98 Mechanical Ventilator 30.00 10/07/21 21:48 115 18 97 30 10/07/21 21:00 107 18 96 Mechanical Ventilator 30.00 10/07/21 20:00 100 18 98 Mechanical Ventilator 30.00 10/07/21 19:50 97 Mechanical Ventilator 30 10/07/21 19:50 30 10/07/21 19:32 36.4 10/07/21 19:00 36.6 103 18 97 Mechanical Ventilator 30.00 10/07/21 19:00 102 10/07/21 18:43 90 17 96 30 10/07/21 18:00 92 17 92 Mechanical Ventilator 30.00 10/07/21 17:32 90 120/75 10/07/21 17:00 94 17 94 Mechanical Ventilator 30.00 10/07/21 16:00 96 Mechanical Ventilator 30 10/07/21 16:00 80 17 93 Mechanical Ventilator 30.00 10/07/21 16:00 30 10/07/21 15:46 36.4 10/07/21 15:00 81 17 95 Mechanical Ventilator 30.00 10/07/21 14:42 85 18 95 30 10/07/21 14:00 81 19 94 Mechanical Ventilator 30.00 10/07/21 13:39 76 103/70 10/07/21 13:00 77 26 95 Mechanical Ventilator 30.00 10/07/21 13:00 69 10/07/21 12:00 30 10/07/21 12:00 36.6 10/07/21 12:00 105 17 95 Mechanical Ventilator 30.00 10/07/21 12:00 96 Mechanical Ventilator 30 10/07/21 11:00 85 17 95 Mechanical Ventilator 30.00 10/07/21 10:50 90 18 95 30 10/07/21 10:44 81 137/88 10/07/21 10:00 88 22 95 Mechanical Ventilator 30.00 I & O 10/08/21 07:00 Intake Total 4840 ml Output Total 44962 ml Balance -6185 ml Height & Weight Height: '" Weight: lbs. oz. kg; 26.14 BMI Method: General Appearance: Chronically ill, Other (Sedated and ventilator) HEENT: PERRL/EOMI (3 mm reactive); No Moist Mucous Membranes ( dry oral mucosa cracked lips) Neck: Full Range of Motion, Non Tender Respiratory: Lungs Clear, Normal Breath Sounds Cardiovascular: Regular Rate, Rhythm Capillary Refill: Less Than 3 Seconds Peripheral Pulses: 2+ Radial Pulses (R), 2+ Radial Pulses (L) Gastrointestinal: soft, no organomegaly Extremity: Normal Capillary Refill, No Pedal Edema Neurologic/Psychiatric: Other (sedated and on ventilator) Skin: Normal Color Results Lab Laboratory Tests 10/06/21 11:30 10/07/21 04:23 10/08/21 03:15 Assessment/Plan Assessment/Plan Tele-ICU Physician , Progress Note ) Available chart/ vitals / labs / Images reviewed Video assessment done using teleICU camera, rest of exam as per RN Discussed with RN , EXAM PER RN Events overnight : Afebrile FiO2 - 25 I/O = neg Drips: Sedation gtt: ( RASS -3 ) fent 150 , propofol 50 VENT SETTINGS and ABG reviewed candidate for SBT today REVIEWED Cardiovascular Stability / Sedation Score / FI02/PEEP / ABG / CXR Pressors: , hemodynamically stable Consultants: Hospital course: 10/02 ARF ., AMS, PNA , rhabdo 10/03 - off levo 10/04 - fio2 25 % fio2 10/06 - A FIB RVR 10/08 - increase sputum , 40 % fio2 - follows commands A/P Acute resp failure - intubated 10/02 - assess for SBT when mental status improved - CPM now PNA , RUL ( covid neg = z mqx - merrem - cxr worsening - provbably VO / effusion - STOP IVF < CONT DIURESIS - INCREASED SPUTUM - cont abx , check sputum cx acute mental status change - CTH 10/02 neg - _ met and amthet in urine - on propofol and fentanyl - with decreasing doses is agitated , not follows coimmands PAF , now afib RVR 10/06 - as per cards -as per cards on eliquis Elevated LFT - neg hepatitis and HIV panel- improving Rhabdo - OFF hydration FLAKITA - off hydrtation , lasix IV Coagulopathy - ? due to liver failure - follow - IMPROVING Elv trop - cards consulted Lines : right IJ 10/02 (Central Line Necessity Reviewed) Locke: 10/02 OG: + Nutrition: TF Analgesia: Anxiety/ delirium VTE Prophylaxis: eliquis Stress Ulcer Prophylaxis: ppi Glycemic Control: Plans in collaboration with bedside consultants and IM MDs. Discussed with RN to reach out if any questions or concerns A total of 35 minutes of critical care time was devoted to this patient today, required to treat and/or prevent further deterioration of critical care condition ( as above) . TAE AGUAYO MD Oct 08, 2021 09:52
--- NOTE | 2021-10-08 10:19 | Cardiology Progress Note ---
Progress Note-Cardiology Events since last exam Date Seen by Provider: Oct 08, 2021 Time Seen by Provider: 10:17 Events since last exam I am following him due to atrial flutter as well as abnormal electrocardiogram and troponin levels. He remains intubated and sedated in the intensive care unit. The nurse started lightening his sedation and he was beginning to wake up. I did not obtain any history from the patient due to his sedation. I did speak with his nurse at the bedside. Certain portions of this document may have been dictated utilizing voice recognition technology. Inherent to this technology, typographical and grammatical errors may exist. As much as I am diligent to identify and correct these mistakes, some errors may remain in the document. Vitals Last set of Vitals Signs Vital Signs 10/08/21 10/08/21 10/08/21 10/08/21 04:58 11:14 13:59 16:00 Temp 37.0 Pulse 100 Resp 18 B/P (MAP) 132/78 Pulse Ox 97 O2 Delivery Nasal Cannula O2 Flow Rate 5.00 Labs Labs Laboratory Tests 10/08/21 03:15 Exam Vital Signs Vital Signs Date Time Temp Pulse Resp B/P (MAP) Pulse Ox O2 Delivery O2 Flow Rate FiO2 10/08/21 16:00 97 Nasal Cannula 5.00 10/08/21 16:00 37.0 10/08/21 14:29 10/08/21 13:59 100 10/08/21 12:00 30 10/08/21 11:14 18 Physical Exam General: Intubated and sedated. Well nourished and appears stated age. Eye: Conjunctivae are clear. There are no xanthelasma. HENT: Normocephalic. Atraumatic. Carotid pulsations 2/2 without bruits. Neck: Jugular venous pressure does not appear elevated. No thyromegaly appreciated. Respiratory: Symmetrical expansion bilaterally. Coarse breath sounds due to the ventilator. Cardiovascular: Normal rate. Irregular rhythm. No murmur. No gallop. Point of maximal impulse is not appear displaced. Good pulses equal in all extremities. No edema. Gastrointestinal: Soft. Normal bowel sounds. Skin: Skin turgor is normal. There is no pallor. Musculoskeletal: No obvious deformities. Neurologic: Intubated and sedated. Psychiatric: Not obtainable due to clinical status. Labs Laboratory Tests Test 10/07/21 17:28 10/07/21 22:22 10/08/21 03:15 Range/Units Glucometer 103 93 70-110 MG/DL White Blood Count 9.3 4.3-11.0 10^3/uL Red Blood Count 5.02 4.30-5.52 10^6/uL Hemoglobin 13.6 13.3-17.7 g/dL Hematocrit 44 40-54 % Mean Corpuscular Volume 88 80-99 fL Mean Corpuscular Hemoglobin 27 25-34 pg Mean Corpuscular Hemoglobin Concent 31 L 32-36 g/dL Red Cell Distribution Width 17.4 H 10.0-14.5 % Platelet Count 238 130-400 10^3/uL Mean Platelet Volume 10.3 9.0-12.2 fL Immature Granulocyte % (Auto) 1 % Neutrophils (%) (Auto) 65 42-75 % Lymphocytes (%) (Auto) 14 12-44 % Monocytes (%) (Auto) 14 H 0-12 % Eosinophils (%) (Auto) 7 0-10 % Basophils (%) (Auto) 0 0-10 % Neutrophils # (Auto) 6.0 1.8-7.8 10^3/uL Lymphocytes # (Auto) 1.3 1.0-4.0 10^3/uL Monocytes # (Auto) 1.3 H 0.0-1.0 10^3/uL Eosinophils # (Auto) 0.6 H 0.0-0.3 10^3/uL Basophils # (Auto) 0.0 0.0-0.1 10^3/uL Immature Granulocyte # (Auto) 0.1 0.0-0.1 10^3/uL Blood Gas Puncture Site ARTLINE Blood Gas Patient Temperature 36.7 Arterial Blood pH 7.44 H 7.37-7.43 Arterial Blood Partial Pressure CO2 48 H 35-45 MMHG Arterial Blood Partial Pressure O2 91 79-93 MMHG Arterial Blood HCO3 32 H 23-27 MMOL/L Arterial Blood Total CO2 34.0 H 21.0-31.0 MMOL/L Arterial Blood Oxygen Saturation 97 94-100 % Arterial Blood Base Excess 8.0 H -2.5-2.5 MMOL/L Michele Test ARTLINE Blood Gas Ventilator Setting YES Blood Gas Inspired Oxygen 30% Sodium Level 143 135-145 MMOL/L Potassium Level 3.7 3.6-5.0 MMOL/L Chloride Level 104 98-107 MMOL/L Carbon Dioxide Level 29 21-32 MMOL/L Anion Gap 10 5-14 MMOL/L Blood Urea Nitrogen 10 7-18 MG/DL Creatinine 0.63 0.60-1.30 MG/DL Estimat Glomerular Filtration Rate 140 BUN/Creatinine Ratio 16 Glucose Level 95 70-105 MG/DL Calcium Level 8.7 8.5-10.1 MG/DL Corrected Calcium 9.9 8.5-10.1 MG/DL Phosphorus Level 3.3 2.3-4.7 MG/DL Magnesium Level 1.4 L 1.6-2.4 MG/DL Total Bilirubin 1.1 H 0.1-1.0 MG/DL Aspartate Amino Transf (AST/SGOT) 81 H 5-34 U/L Alanine Aminotransferase (ALT/SGPT) 96 H 0-55 U/L Alkaline Phosphatase 161 H 40-136 U/L Total Protein 5.8 L 6.4-8.2 GM/DL Albumin 2.5 L 3.2-4.5 GM/DL Triglycerides Level 166 H <150 MG/DL Diagnosis/Problems Diagnosis/Problems (1) Paroxysmal atrial fibrillation Status: Chronic Assessment & Plan: He has recurrent atrial fibrillation during this hosp italization. He is on apixaban for stroke prophylaxis. Unclear whether or not he was taking this at home. I had started him on amiodarone infusion and then transitioned this to oral amiodarone. I performed a cardioversion earlier today which would convert him to sinus rhythm but within a short period of time, he would revert back to atrial fibrillation/flutter. I will continue the oral amiodarone loading and continue apixaban. We may want to consider another attempt at cardioversion prior to discharge or a few weeks after discharge. (2) Elevated troponin Status: Acute Assessment & Plan: He had a marginally elevated troponin level. This is in the presence of significant elevation of the creatinine kinase level which may be due to rhabdomyolysis. I suspect the troponin elevation is related to the elevated creatinine kinase level and DOES NOT represent an acute myocardial infarction. This is most likely noncardiac elevation of the troponin level. I do not see any indication for an invasive or noninvasive ischemic evaluation at this time. Furthermore, due to his methamphetamine abuse and noncompliance with medical therapy, he would not be a good candidate for an invasive cardiac evaluation. (3) Abnormal ECG Status: Acute Assessment & Plan: He did have progressive worsening of T wave inversion in the anterolateral leads but this seems to have stabilized. His head CT did not show any acute abnormalities to explain the diffuse T wave changes. As above, due to his medication noncompliance and methamphetamine abuse, he would not be a good candidate for an invasive cardiac evaluation because if he needs to have coronary revascularization, he would need to be compliant with medication. I will obtain another follow-up electrocardiogram in the morning. (4) Cardiomyopathy Status: Chronic Assessment & Plan: A follow-up echocardiogram from this admission shows an ejection fraction of 30-35%. This is similar to the transesophageal echocardiogram from November,. I recommend we resume his metoprolol succinate which he was supposed to be taking at home once his blood pressures improve. He has been on norepinephrine infusion intermittently due to shock and as such, beta-ryan has been on hold. We may also want to consider a low-dose NOLVIA inhibitor when his blood pressure improves. (5) Acute on chronic systolic heart failure Status: Acute Assessment & Plan: He has diffuse changes on his chest x-ray from the emergency room. His chest x-rays have improved. I had previously started him on i ntravenous Lasix due to the large volume of IV fluid he has been receiving for the rhabdomyolysis. The IV fluid and furosemide have now been stopped. We may want to obtain a follow-up chest x-ray in 1-2 days. (6) Rhabdomyolysis Status: Acute Assessment & Plan: This seems to have resolved since admission. (7) Acute kidney injury Status: Acute Assessment & Plan: Probably related to the rhabdomyolysis. This also seems to have resolved. (8) Noncompliance with medication regimen Status: Chronic Assessment & Plan: This makes chronic management of his medical conditions extremely difficult. Problem Qualifiers (1) Rhabdomyolysis: Rhabdomyolysis type: non-traumatic Qualified Codes: M62.82 - Rhabdomyolysis DONAVAN RODRIGUEZ JR, MD Oct 08, 2021 10:19
--- NOTE | 2021-10-08 10:54 | Cardiac Procedure Note ---
Cardiology Procedures Date of Procedure 10/08/2021 DIRECT-CURRENT CARDIOVERSION INDICATION: Persistent atrial fibrillation. PROCEDURE: After informed consent from the patient's family member, he remained on sedation and mechanical ventilation. I subsequently performed direct-current cardioversion with synchronized, biphasic shocks in a stepwise fashion starting with 50 J and then 100 J. The patient converted from atrial fibrillation/atrial flutter with each defibrillation but within a short period of time, he reverted back to atrial fibrillation/flutter. IMPRESSION: 1. Status post unsuccessful direct-current cardioversion for atrial fibrillation. The patient did convert to sinus rhythm following shocks at 50 J and then 100 J but within a short period of time, he reverted back to atrial fibrillation/flutter. Certain portions of this document may have been dictated utilizing voice recognition technology. Inherent to this technology, typographical and grammatical errors may exist. As much as I am diligent to identify and correct these mistakes, some errors may remain in the document. DONAVAN RODRIGUEZ JR, MD Oct 08, 2021 10:54
[2021-10-08 11:14] VITALS: BP 106/65
--- NOTE | 2021-10-08 14:49 | Progress Note - Hospitalist ---
RAMA MAE 10/08/21 1449: Subjective HPI/CC On Admission Date Seen by Provider: Oct 08, 2021 Time Seen by Provider: 09:00 Chief complaint: Respiratory failure History present illness: This is a 41-year-old white male known to me from multiple hospital stays all of them related to methamphetamine use who presented to the ER with respiratory failure. He was intubated. He has a history of congestive heart failure and atrial fibrillation. ICU has been consulted along with cardiology. He on the vent. Subjective/Events-last exam Patient underwent cardioversion today for treatment resistant Afib with RVR. It was unsuccessful. Dr. Cartagena managing. Patient will be extubated later today. Vent settings 500/18/5.0/30%. Focused Exam Time of Focused Exam: 05:36 Objective Exam Vital Signs Vital Signs Date Time Temp Pulse Resp B/P (MAP) Pulse Ox O2 Delivery O2 Flow Rate FiO2 10/08/21 14:29 Nasal Cannula 5.00 10/08/21 13:59 100 10/08/21 12:04 36.7 10/08/21 12:00 30 10/08/21 12:00 97 10/08/21 11:14 18 Capillary Refill : Less Than 3 Seconds General Appearance: No Apparent Distress, WD/WN Respiratory: No Accessory Muscle Use, No Respiratory Distress Cardiovascular: Irregularly Irregular Rectal: Deferred Results/Procedures Lab Laboratory Tests 10/08/21 03:15 Patient resulted labs reviewed. Assessment/Plan Assessment and Plan Assess & Plan/Chief Complaint Assessment: Acute respiratory failure requiring intubation Acute respiratory acidosis with metabolic acidosis Severe sepsis Bilateral pneumonia Leukocytosis 33,000 Acute rhabdomyolysis Elevated troponin Coagulopathy INR 4.1 Bandemia Liver shock Atrial fibrillation currently rate controlled Congestive heart failure Methamphetamine use Plan: Vent management appreciated by eICU Poor prognosis Multisystem organ failure noted 10/03/2021: Supportive care eICU appreciated Cardiology appreciated Patient will require intubation if extubated too soon to do methamphetamine withdrawal process just like the previous 6 admissions 10/04/2021: Ventilator management Monitor closely 10/05/2021: Ventilator management Monitor closely 10/06/2021: Atrial flutter management per cardiology Restart norepinephrine Ventilator management Monitor closely 10/07/2021: Appreciate cardiology Appreciate eICU Ventilator management Monitor closely 10/08/2021: Cardioversion unsuccessful, Dr. Cartagena managing Extubation today Close monitoring post extubation Appreciate eICU Appreciate cardiology ERIN COLE DO 10/09/21 0552: Subjective Subjective/Events-last exam Pt doing about the same May be able to extubate Cardioversion was attempted X2 and unsuccessful On Amiodarone and will be monitored closely by cardiology Objective Exam General Appearance: No Apparent Distress, WD/WN, Chronically ill, Other (Intubated and sedated) Respiratory: Lungs Clear, Normal Breath Sounds Cardiovascular: Irregularly Irregular, Tachycardia Assessment/Plan Assessment and Plan Assess & Plan/Chief Complaint Appreciate cardiology attempt for cardioversion Ventilator management Supervisory-Addendum Brief Verification & Attestation Participated in pt care: history, MDM, physical Personally performed: exam, history, MDM, supervision of care Care discussed with: Medical Student Procedures: n/a Results interpretation: Verified all documentation Verification and Attestation of Medical Student E/M Service A medical student performed and documented this service in my presence. I reviewed and verified all information documented by the medical student and made modifications to such information, when appropriate. I personally performed the physical exam and medical decision making. Erin Cole Oct 09, 2021,05:52 RAMA MAE Oct 08, 2021 14:49 ERIN COLE DO Oct 09, 2021 05:52
[2021-10-08 21:06] VITALS: BP 97/56
[2021-10-09] MEDS: MEROPENEM 500 MG in NS (IVPB) 100 ML IV SCH ×3 (00:02→12:52)
[2021-10-09] MEDS: RT-ALBUTEROL SULF 2.5 MG/3 ML PRE-MIX VIAL INH SCH (03:03)
[2021-10-09 04:18] LABS: ABG BASE EXCESS 9.3 MMOL/L (-2.5-2.5); ABG OXYGEN SATURATION 97 % (94-100); ABG PCO2 49 MMHG (35-45); ABG PH 7.45 (7.37-7.43); ABG PO2 82 MMHG (79-93); ABG TCO2 35.2 MMOL/L (21.0-31.0)
[2021-10-09 04:19] LABS: BASOPHILS % (AUTO) 0 % (0-10); EOSINOPHILS # (AUTO) 0.1 10^3/uL (0.0-0.3); EOSINOPHILS % (AUTO) 1 % (0-10); HEMATOCRIT 46 % (40-54); HEMOGLOBIN 14.6 g/dL (13.3-17.7); LYMPHOCYTES # (AUTO) 1.1 10^3/uL (1.0-4.0); LYMPHOCYTES % (AUTO) 8 % (12-44); MEAN CORPUSCULAR HEMOGLOBIN 28 pg (25-34); MEAN CORPUSCULAR HGB CONC 32 g/dL (32-36); MEAN CORPUSCULAR VOLUME 86 fL (80-99); MEAN PLATELET VOLUME 10.7 fL (9.0-12.2); MONOCYTES # (AUTO) 1.3 10^3/uL (0.0-1.0); MONOCYTES % (AUTO) 10 % (0-12); NEUTROPHILS # (AUTO) 10.5 10^3/uL (1.8-7.8); NEUTROPHILS % (AUTO) 80 % (42-75); PLATELET COUNT 301 10^3/uL (130-400); WHITE BLOOD COUNT 13.1 10^3/uL (4.3-11.0)
[2021-10-09 04:22] LABS: ALLENS TEST YES-POS; INSPIRED O2 30%; PATIENT TEMP 36.7; VENTILATOR NO
[2021-10-09 04:29] LABS: ALBUMIN 2.9 GM/DL (3.2-4.5); POTASSIUM 3.8 MMOL/L (3.6-5.0)
[2021-10-09 04:30] LABS: CALCIUM 9.5 MG/DL (8.5-10.1)
[2021-10-09 04:32] LABS: TOTAL PROTEIN 6.7 GM/DL (6.4-8.2)
[2021-10-09 04:33] LABS: BILIRUBIN,TOTAL 1.8 MG/DL (0.1-1.0)
[2021-10-09 04:35] LABS: CREATININE SERUM 0.65 MG/DL (0.60-1.30); PHOSPHORUS 3.3 MG/DL (2.3-4.7)
[2021-10-09 04:38] LABS: MAGNESIUM 1.6 MG/DL (1.6-2.4)
[2021-10-09] MEDS: POTASSIUM CL 10MEQ/50ML IVPB 50 ML IV SCH (04:52)
[2021-10-09] MEDS: MAGNESIUM 1 GM/100 ML IVPB 100 ML IV SCH ×3 (04:53→05:13)
[2021-10-09] MEDS: KCL 20 MEQ TAB (K-DUR) PO SCH (04:53)
[2021-10-09] MEDS ORDERED: MAGNESIUM 1 GM/100 ML IVPB 200 ML IV ONE (05:02)
[2021-10-09] MEDS: FUROSEMIDE 40 MG/4 ML INJ (LASIX) IVP SCH ×2 (05:13→16:24)
--- NOTE | 2021-10-09 06:49 | Diagnostic Imaging Report ---
INDICATION: Post extubation pneumonia, ICU patient. Compared with exam one day prior. FINDINGS: Enlargement of the cardiac silhouette may be slightly improved. Bilateral pleural effusions showed no clear changes of vascular congestion and bilateral largely central mixed interstitial and airspace disease which may be pneumonia or edema. The pulmonary opacity is perhaps slightly diminished and improved. ET tube removed. Lung volumes stable and symmetric. The OG has been removed. Right IJ at the SVC stable. IMPRESSION: Five lobe pulmonary opacities, edema versus pneumonia showed likely slight interval improvements. Enlargement of the cardiac silhouette and pleural fluid not obviously changed. Stable lung volumes post extubation with no adverse development. Dictated by: Dictated on workstation # [id number]
[2021-10-09 08:03] VITALS: BP 105/60
[2021-10-09] MEDS ORDERED: RT-ALBUTEROL SULF 2.5 MG/3 ML PRE-MIX VIAL INH PRN (08:15)
[2021-10-09] MEDS: AMIODARONE 200 MG (CORDARONE) TAB PO SCH ×2 (08:29→20:19)
[2021-10-09] MEDS: APIXABAN 5 MG (ELIQUIS) TABLET PO SCH ×2 (08:29→20:19)
[2021-10-09] MEDS: PANTOPRAZOLE 40 MG (PROTONIX) VIAL IV SCH (08:29)
--- NOTE | 2021-10-09 11:06 | Tele-ICU Progress Note ---
Subjective Date Seen by a Provider: Oct 09, 2021 Time Seen by a Provider: 11:06 Sepsis Event Evaluation Height, Weight, BMI Height: '" Weight: lbs. oz. kg; 26.14 BMI Method: Focused Exam Time of Focused Exam: 05:36 Exam Exam Patient acknowledged, consented, and participated in this virtual visit which was conducted using real time audio/video Vital Signs Date Time Temp Pulse Resp B/P (MAP) Pulse Ox O2 Delivery O2 Flow Rate FiO2 10/09/21 10:00 111 18 95 Nasal Cannula 2.00 10/09/21 09:00 124 15 95 Nasal Cannula 2.00 10/09/21 08:03 81 100 10/09/21 08:00 37.0 10/09/21 08:00 121 12 94 Nasal Cannula 2.00 10/09/21 08:00 97 Nasal Cannula 2.00 10/09/21 07:00 96 14 93 Nasal Cannula 2.00 10/09/21 07:00 94 10/09/21 06:00 93 24 96 Nasal Cannula 2.00 10/09/21 05:00 100 14 97 Nasal Cannula 2.00 10/09/21 04:00 36.7 105 24 97 Nasal Cannula 2.00 10/09/21 04:00 97 Nasal Cannula 2.00 10/09/21 03:03 98 Nasal Cannula 1.00 10/09/21 03:00 92 18 98 Nasal Cannula 2.00 10/09/21 02:00 101 23 97 Nasal Cannula 2.00 10/09/21 01:00 104 22 97 Nasal Cannula 2.00 10/09/21 01:00 104 10/09/21 00:00 97 Nasal Cannula 2.00 10/09/21 00:00 36.8 95 16 97 Nasal Cannula 2.00 10/08/21 23:00 94 18 97 Nasal Cannula 3.00 10/08/21 22:00 107 12 97 Nasal Cannula 3.00 10/08/21 22:00 37.0 10/08/21 21:35 97 Nasal Cannula 2.00 10/08/21 21:15 Nasal Cannula 3.00 10/08/21 21:06 79 100 40 10/08/21 21:00 110 19 98 Nasal Cannula 5.00 10/08/21 20:00 92 13 99 Nasal Cannula 5.00 10/08/21 19:35 95 Nasal Cannula 5.00 10/08/21 19:00 36.5 93 18 95 Nasal Cannula 5.00 10/08/21 19:00 100 10/08/21 18:36 98 Nasal Cannula 5.00 10/08/21 18:00 101 14 97 Nasal Cannula 5.00 10/08/21 17:00 93 10 96 Nasal Cannula 5.00 10/08/21 16:00 97 Nasal Cannula 5.00 10/08/21 16:00 90 16 98 Nasal Cannula 5.00 10/08/21 16:00 37.0 10/08/21 15:00 81 17 95 Nasal Cannula 5.00 10/08/21 14:29 Nasal Cannula 5.00 10/08/21 14:00 87 19 94 Mechanical Ventilator 30.00 10/08/21 13:59 100 10/08/21 13:00 98 11 97 Mechanical Ventilator 30.00 10/08/21 12:04 36.7 10/08/21 12:00 30 10/08/21 12:00 97 Mechanical Ventilator 30 10/08/21 12:00 86 18 97 Mechanical Ventilator 30.00 10/08/21 11:14 86 18 96 30 I & O 10/09/21 07:00 Intake Total 380 ml Output Total 5875 ml Balance -5495 ml Height & Weight Height: '" Weight: lbs. oz. kg; 26.14 BMI Method: General Appearance: No Apparent Distress, WD/WN, Chronically ill, Other (Intubated and sedated) HEENT: PERRL/EOMI (3 mm reactive); No Moist Mucous Membranes ( dry oral mucosa cracked lips) Neck: Full Range of Motion, Non Tender Respiratory: Lungs Clear, Normal Breath Sounds Cardiovascular: Irregularly Irregular, Tachycardia Capillary Refill: Less Than 3 Seconds Peripheral Pulses: 2+ Radial Pulses (R), 2+ Radial Pulses (L) Gastrointestinal: soft, no organomegaly Extremity: Normal Capillary Refill, No Pedal Edema Neurologic/Psychiatric: Other (sedated and on ventilator) Skin: Normal Color Results Lab Laboratory Tests 10/08/21 03:15 10/09/21 04:08 Assessment/Plan Assessment/Plan Tele-ICU Physician , Progress Note ) Available chart/ vitals / labs / Images reviewed Video assessment done using teleICU camera, rest of exam as per RN Discussed with RN , EXAM PER RN Events overnight : Afebrile FiO2 - 2 L N/C I/O = neg Drips: EXTUBATED ON 09/3021. ON N/C. RESTING COMFORTABLY Consultants: Hospital course: 10/02 ARF ., AMS, PNA , rhabdo 10/03 - off levo 10/04 - fio2 25 % fio2 10/06 - A FIB RVR 10/08 - increase sputum , 40 % fio2 - follows commands. 10/08 extubated and tolerated. 10/09. no distress on 2l n/c A/P Acute resp failure - extubated on 10/08/21. 10/09/ fio2 2l n/c - CPM now PNA , RUL ( covid neg = z mqx - merrem - cxr worsening - provbably VO / effusion - ivf ns 40 cc/hr. stop lasix - INCREASED SPUTUM - cont abx , check sputum cx acute mental status change - CTH 10/02 neg - _ met and amthet in urine - mental status improving PAF , now afib RVR 10/06 - as per cards -as per cards on eliquis Elevated LFT - neg hepatitis and HIV panel- improving Rhabdo -will repeat cpk FLAKITA -slow hydration with ns 40mls/hr as he is not drinking. stop lasix Coagulopathy - ? due to liver failure - follow - IMPROVING Elv trop - cards consulted Lines : right IJ 10/02 (Central Line Necessity Reviewed) Locke: 10/02 OG: + Nutrition: TF Analgesia: Anxiety/ delirium VTE Prophylaxis: eliquis Stress Ulcer Prophylaxis: ppi Glycemic Control: Plans in collaboration with bedside consultants and IM MDs. Discussed with RN to reach out if any questions or concerns A total of 25 minutes of critical care time was devoted to this patient today, required to treat and/or prevent further deterioration of critical care condition ( as above) . Critical Care: Critically Ill Patient Time spent with patient (mins): 25 JUS JOSEPH MD Oct 09, 2021 11:06
--- NOTE | 2021-10-09 12:37 | ST Dysphagia Evaluation ---
Speech Evaluation-General Medical Diagnosis Respiratory Failure Onset Date: Oct 02, 2021 Therapy Diagnosis Therapy Diagnosis: Mild to Moderate Oropharyngeal Dysphagia Precautions Precautions: Fall, Aspiration Precautions/Isolations: Standard Precautions Referral Referring Physician: Dr. Parsons Reason for Referral: Evaluation/Treatment Medical History Pertinent Medical History: Atrial Fib, Alcoholism, HTN, Smoking Current History The patient is a 41 year-old male with a past medical history significant for m ethamphetamine use, consistent non-compliance with medical care, tobacco use, congestive heart failure, high cholesterol, HTN, GERD, and atrial fibrillation, who presented to [facility] on 10/02/2021 with respiratory failure. The patient was intubated on 10/02/2021 and extubated on 10/08/2021 (per chart review). Following extubation, speech language pathology was consulted for a clinical bedside swallowing evaluation prior to initiation of PO intake. CXR: 10/09/21: Five lobe pulmonary opacities, edema versus pneumonia showed likely slight interval improvements. Enlargement of the cardiac silhouette and pleural fluid not obviously changed. Stable lung volumes post extubation with no adverse development. Reviewed History: Yes Speech PLF/Current-Dysphagia Prior Level of Function Per patient, prior to admission he was consuming a regular diet with thin liquids. The patient responded to the clinician answers in yes/no format. Subjective Per RN, the patient displayed difficulty swallowing thin liquids throughout the evening however has consumed medication crushed in applesauce without significant s/s of suspected aspiration. The RN stated the patient was appropriate to be evaluated at this time. The patient presents lying in bed, sleeping upon entrance. The patient is currently receiving 1L supplemental oxygen via nasal cannula with SpO2% at 96% and respirations at 16 bpm. The patient is holding a Yankeur and self-suctioning oral secretions. The patient minimal wakes to a verbal greeting. With repetitive verbal encouragement and positioning in an upright seated posture for swallowing safety, the patient minimally participated in the evaluation (consistent verbal prompting was required for appropriate alertness levels). The patient's voice is aphonic at this time. Cognitive Status The patient does not respond to orientation questions asked by the clinician (verbally or nonverbally). Oral Motor Skills Dentition: Natural Current Food Consistancy: Alabaster Liquids Ability to Follow Directions: Poor Oral Expression Ability: Severe Impairment Observation: Oral Cavity Suction Voice Voice Phonatory-Based Quality: Breathy, Weak, Aphonia Voice Loudness: Severely Soft/Quiet Face Facial Symmetry: Symmetrical Oral-Facial Assessment Oral-Facial Dentition: Normal Labial Seal Description: Weak Puff Cheeks: Reduced Strength Lingual Strength: Abnormal Volitional Dry Swallow: Yes Voluntary Cough: No Can Clear Throat Volitionally: No Productive Cough: Yes Productive Throat Clear: Yes Dysphagia Evaluation Consistencies Presented: Regular, Thin Liquid, Alabaster Thick Liquid, Pureed Oral Phase: Oral Residue, Unable to Form Bolus, Unable to Suck Straw, Reduced Oral Transit Pharyngeal Phase: Multiple Swallow Attempts, Delayed Swallow Funct. Velo/Pharyngeal Symptom: Cough After Swallow Dietary Recommendations: See below. Liquid Recommendations: Alabaster Consistancy 1. Full liquid diet consistency, NECTAR-THICK LIQUIDS (as tolerated). 2. Full staff supervision and feeding (the patient was unable to self-feed or support PO items throughout the evaluation secondary to fatigue). 3. Fully upright and ALERT for all PO intake. 4. Small, single bites and sips. 5. Crush medication and place in puree for administration. 6. Monitor for s/s of suspected aspiration with PO intake. If demonstrated, place the patient NPO and contact speech pathology. 7. Frequent and excellent oral care to reduce the transfer of oral bacteria to the lungs should aspiration of secretions occur. 8. Speech pathology will continue to monitor the patient's oropharyngeal swallowing function (three to four times per week), providing upgrade opportunities when the patient is deemed appropriate and safe (and displays increased stamina with reduced fatigue). Swallowing Precautions: Decreased Bolus 1/2 Tsp, Decreased Rate of Oral Intake, Oral Supervision Staff, Small Bites and Sips, Sitting Upright 90 Degrees, Sitting 90 Degrees 30 Post Intake Dysphagia Evaluation Summary The patient was positioned upright in bed at a 90 degree angle for a safe swallowing position. The patient has a Yankauer in his hands, self-suctioning oral secretions. The patient requires maximum verbal prompting and encouragement for continued participation in the clinical bedside swallowing evaluation. The patient is aphonic at this time. The clinician presents the patient with three ice cubes, five teaspoons of thin liquid, three single straw drinks of thin liquid, two consecutive straw drinks of thin liquid, five teaspoons of nectar-thick liquid, six consecutive straw drinks of nectar-thick liquid, eight teaspoons of puree, and one bite of a saltine cracker. No s/s of suspected aspiration were demonstrated with the ice cubes, teaspoons of thin liquid, single straw drinks of think liquid, teaspoons of nectar-thick liquid, consecutive straw drinks of nectar-thick liquid, applesauce or solids. The patient displayed a delayed, weak, unproductive, breathy cough following consecutive straw drinks of thin liquid (consistently). When prompted to take one straw drink, the patient continued to swallow consecutive, large straw drinks displaying the patient's overall impulsivity. As the patient displays impulsivity throughout the evaluation with PO intake, the clinician feels the patient is most appropriate for nectar-thick liquids as s/s of suspected aspiration were not demonstrated with consecutive, large straw drinks. The patient initially displayed difficulty drawing bolus material from the straw, requiring verbal prompts and direct modeling. The patient's oral phase displayed decreased coordination and overall weakness, as the patient demonstrated difficulty forming a cohesive bolus. Prolonged mastication was noted with the solid consistency and the patient requested the nectar-thick liquid to clear the solid bolus from the oral cavity. Increased fatigue and respirations (38 bpm from 16 bpm initially) were demonstrated by the patient throughout attempts to consume and masticate solid consistencies appropriately. The patient's respirations returned to 22 bpm prior to providing additional nectar-thick liquids via straw. Secondary to the patient's fatigue, increased respirations, and overall poor stamina with PO intake, a full liquid diet would be most appropriate to reduce effort of receiving nutritional needs. The patient's SpO2% remained stable, between 96% and 98% throughout the evaluation. Barriers to Learning Overall fatigue, motivation. Speech Short Term Goals Short Term Goals Short Term Goals 1. The patient will complete safe swallowing strategies and compensatory measures with 90% accuracy throughout PO intake with mild verbal cueing. Time Frame-STG: Four Days Speech Senior Living Goals Hyperbaric Technician Goals 1. The patient will tolerate the least restrictive diet consistency without the presence of s/s of suspected aspiration with 90% accuracy, independently. Time Frame: Two Weeks Speech-Plan Patient/Family Goals Patient/Family Goals: Unknown to the clinician at this time. Treatment Plan Speech Therapy Treatment Plan: Continue Plan of Care Treatment Duration: Oct 23, 2021 Frequency: 3 times per week (Three to four times per week.) Estimated Hrs Per Day: .25 hour per day Rehab Potential: Fair Barriers to Learning: Compliance, Fatigue Pt/Family Agrees to Plan: Yes Safety Risks/Education Teaching Recipient: Patient Teaching Methods: Discussion Response to Teaching: Reinforcement Needed Education Topics Provided: The diet consistency recommendations were discussed with the patient and the treating RN. Swallowing strategies and compensatory measures were reviewed and will be placed in this documentation. Time Speech Therapy Time In: 10:00 Speech Therapy Time Out: 10:30 Total Billed Time: 30 Billed Treatment Time 1, MARIEL MESA [facility] Oct 09, 2021 12:37
--- NOTE | 2021-10-09 12:39 | Progress Note - Hospitalist ---
RAMA MAE 10/09/21 1239: Subjective HPI/CC On Admission Date Seen by Provider: Oct 09, 2021 Time Seen by Provider: 08:40 Chief complaint: Respiratory failure History present illness: This is a 41-year-old white male known to me from multiple hospital stays all of them related to methamphetamine use who presented to the ER with respiratory failure. He was intubated. He has a history of congestive heart failure and atrial fibrillation. ICU has been consulted along with cardiology. He on the vent. Subjective/Events-last exam Patient was extubated yesterday. Still very groggy and sluggish today. Unable to speak clearly right now. Patient is still in Afib, managed by cardiology. On oral amiodarone 400mg bid right now. Patient is on 1L O2 NC. Patient is having a productive cough and using suction to help clear the fluids. Patient was requesting some food. Patient was undergoing a swallow study when I was leaving the room. Pending results can progress diet as tolerated. Transfer to cardiac step down today or tomorrow. Patient unable to give a ROS at this time. Focused Exam Time of Focused Exam: 05:36 Objective Exam Vital Signs Vital Signs Date Time Temp Pulse Resp B/P (MAP) Pulse Ox O2 Delivery O2 Flow Rate FiO2 10/09/21 12:32 116 10/09/21 12:00 14 93 Nasal Cannula 2.00 10/09/21 11:30 37.1 10/08/21 21:06 40 Capillary Refill : Less Than 3 Seconds General Appearance: WD/WN, Other (Groggy/Sluggish) Respiratory: No Accessory Muscle Use, No Respiratory Distress Cardiovascular: Irregularly Irregular, Tachycardia Rectal: Deferred Extremity: Normal Inspection, No Pedal Edema Neurologic/Psychiatric: Alert, Oriented x3, Depressed Affect Results/Procedures Lab Laboratory Tests 10/09/21 04:08 Patient resulted labs reviewed. Assessment/Plan Assessment and Plan Assess & Plan/Chief Complaint Assessment: Acute respiratory failure requiring intubation Acute respiratory acidosis with metabolic acidosis Severe sepsis Bilateral pneumonia Leukocytosis 33,000 Acute rhabdomyolysis Elevated troponin Coagulopathy INR 4.1 Bandemia Liver shock Atrial fibrillation currently rate controlled Congestive heart failure Methamphetamine use Plan: Vent management appreciated by eICU Poor prognosis Multisystem organ failure noted 10/03/2021: Supportive care eICU appreciated Cardiology appreciated Patient will require intubation if extubated too soon to do methamphetamine withdrawal process just like the previous 6 admissions 10/04/2021: Ventilator management Monitor closely 10/05/2021: Ventilator management Monitor closely 10/06/2021: Atrial flutter management per cardiology Restart norepinephrine Ventilator management Monitor closely 10/07/2021: Appreciate cardiology Appreciate eICU Ventilator management Monitor closely 10/08/2021: Cardioversion unsuccessful, Dr. Cartagena managing Extubation today Close monitoring post extubation Appreciate eICU Appreciate cardiology 10/09/2021: Patient extubated- monitor closely Progress diet as tolerated Cardiac step down today or tomorrow Appreciate cardiology Appreciate [facility] ERIN COLE DO 10/09/21 1610: Subjective Subjective/Events-last exam Patient extubated yesterday Very subdued Checked meds and labs Hold in ICU due to lethargy Objective Exam General Appearance: No Apparent Distress, WD/WN, Chronically ill, Other (Groggy/Sluggish) Respiratory: Lungs Clear Cardiovascular: Regular Rate, Rhythm Assessment/Plan Assessment and Plan Assess & Plan/Chief Complaint Keep in ICU due to lethargy Supervisory-Addendum Brief Verification & Attestation Participated in pt care: history, MDM, physical Personally performed: exam, history, MDM, supervision of care Care discussed with: Medical Student Procedures: n/a Results interpretation: Verified all documentation Verification and Attestation of Medical Student E/M Service A medical student performed and documented this service in my presence. I reviewed and verified all information documented by the medical student and made modifications to such information, when appropriate. I personally performed the physical exam and medical decision making. Erin Cole Oct 09, 2021,16:09 RAMA MAE Oct 09, 2021 12:39 ERIN COLE DO Oct 09, 2021 16:10
--- NOTE | 2021-10-09 12:40 | Cardiology Progress Note ---
Progress Note-Cardiology Events since last exam Date Seen by Provider: Oct 09, 2021 Time Seen by Provider: 12:37 Events since last exam I am following him due to atrial flutter as well as abnormal electrocardiogram and troponin levels. He was extubated on 10/08. He remains in the intensive care unit. He was awake and talking but difficult to understand. He denied chest pain, dyspnea, palpitations, syncope, or ankle edema. However, due to his confusion, I am not sure he understood any of my questions. Certain portions of this document may have been dictated utilizing voice recognition technology. Inherent to this technology, typographical and grammatical errors may exist. As much as I am diligent to identify and correct these mistakes, some errors may remain in the document. Vitals Last set of Vitals Signs Vital Signs 10/08/21 10/08/21 10/09/21 10/09/21 10/09/21 04:58 21:06 11:30 13:00 14:00 Temp 37.1 Pulse 107 Resp 22 B/P (MAP) 132/78 Pulse Ox 95 O2 Delivery Nasal Cannula O2 Flow Rate 2.00 FiO2 40 Labs Labs Laboratory Tests 10/09/21 04:08 Exam Vital Signs Vital Signs Date Time Temp Pulse Resp B/P (MAP) Pulse Ox O2 Delivery O2 Flow Rate FiO2 10/09/21 14:00 107 22 Nasal Cannula 2.00 10/09/21 13:00 95 10/09/21 11:30 37.1 10/08/21 21:06 40 Physical Exam General: Awake but confused. No acute distress. Eye: No xanthelasma. HENT: Normocephalic. Neck: Jugular venous pressure does not appear elevated. Respiratory: Lungs are clear to auscultation. Respirations are non-labored. Breath sounds are equal. Symmetrical chest wall expansion. Cardiovascular: Normal rate. Irregular rhythm. No murmur. No gallop. No edema. Gastrointestinal: Soft. Normal bowel sounds. Skin: Warm. Dry. Neurologic: Alert and oriented to person only. Cranial nerves 3-11 grossly intact. Psychiatric: Confused. Labs Laboratory Tests Test 10/08/21 18:06 10/09/21 00:00 10/09/21 04:08 10/09/21 11:26 Range/Units Glucometer 111 H 104 125 H 70-110 MG/DL White Blood Count 13.1 H 4.3-11.0 10^3/uL Red Blood Count 5.31 4.30-5.52 10^6/uL Hemoglobin 14.6 13.3-17.7 g/dL Hematocrit 46 40-54 % Mean Corpuscular Volume 86 80-99 fL Mean Corpuscular Hemoglobin 28 25-34 pg Mean Corpuscular Hemoglobin Concent 32 32-36 g/dL Red Cell Distribution Width 16.8 H 10.0-14.5 % Platelet Count 301 130-400 10^3/uL Mean Platelet Volume 10.7 9.0-12.2 fL Immature Granulocyte % (Auto) 1 % Neutrophils (%) (Auto) 80 H 42-75 % Lymphocytes (%) (Auto) 8 L 12-44 % Monocytes (%) (Auto) 10 0-12 % Eosinophils (%) (Auto) 1 0-10 % Basophils (%) (Auto) 0 0-10 % Neutrophils # (Auto) 10.5 H 1.8-7.8 10^3/uL Lymphocytes # (Auto) 1.1 1.0-4.0 10^3/uL Monocytes # (Auto) 1.3 H 0.0-1.0 10^3/uL Eosinophils # (Auto) 0.1 0.0-0.3 10^3/uL Basophils # (Auto) 0.0 0.0-0.1 10^3/uL Immature Granulocyte # (Auto) 0.1 0.0-0.1 10^3/uL Blood Gas Puncture Site RIGHT RAD Blood Gas Patient Temperature 36.7 Arterial Blood pH 7.45 H 7.37-7.43 Arterial Blood Partial Pressure CO2 49 H 35-45 MMHG Arterial Blood Partial Pressure O2 82 79-93 MMHG Arterial Blood HCO3 34 H 23-27 MMOL/L Arterial Blood Total CO2 35.2 H 21.0-31.0 MMOL/L Arterial Blood Oxygen Saturation 97 94-100 % Arterial Blood Base Excess 9.3 H -2.5-2.5 MMOL/L Michele Test YES-POS Blood Gas Ventilator Setting NO Blood Gas Inspired Oxygen 30% Sodium Level 140 135-145 MMOL/L Potassium Level 3.8 3.6-5.0 MMOL/L Chloride Level 99 98-107 MMOL/L Carbon Dioxide Level 28 21-32 MMOL/L Anion Gap 13 5-14 MMOL/L Blood Urea Nitrogen 15 7-18 MG/DL Creatinine 0.65 0.60-1.30 MG/DL Estimat Glomerular Filtration Rate 135 BUN/Creatinine Ratio 23 Glucose Level 105 70-105 MG/DL Calcium Level 9.5 8.5-10.1 MG/DL Corrected Calcium 10.4 H 8.5-10.1 MG/DL Phosphorus Level 3.3 2.3-4.7 MG/DL Magnesium Level 1.6 1.6-2.4 MG/DL Total Bilirubin 1.8 H 0.1-1.0 MG/DL Aspartate Amino Transf (AST/SGOT) 93 H 5-34 U/L Alanine Aminotransferase (ALT/SGPT) 95 H 0-55 U/L Alkaline Phosphatase 201 H 40-136 U/L Total Protein 6.7 6.4-8.2 GM/DL Albumin 2.9 L 3.2-4.5 GM/DL Diagnosis/Problems Diagnosis/Problems (1) Typical atrial flutter Assessment & Plan: He had recurrent atrial fibrillation and typical atrial flutter during this hospitalization. He is on apixaban for stroke prophylaxis. Unclear whether or not he was taking this at home. I had started him on amiodarone infusion and then transitioned this to oral amiodarone. I performed a cardioversion on 10/08 which would convert him to sinus rhythm but within a sh ort period of time, he would revert back to atrial fibrillation/flutter. I will continue the oral amiodarone loading and continue apixaban. We may want to consider another attempt at cardioversion prior to discharge or a few weeks after discharge. He is on metoprolol for rate control. I will titrate this upwards as tolerated by his blood pressure. (2) Cardiomyopathy Status: Chronic Assessment & Plan: A follow-up echocardiogram from this admission shows an ejection fraction of 30-35%. This is similar to the transesophageal e chocardiogram from November,. He has received 4 doses of metoprolol succinate. We may also want to consider a low-dose NOLVIA inhibitor if his blood pressure remains reasonable. (3) Acute on chronic systolic heart failure Status: Acute Assessment & Plan: His chest x-ray from today is consistent with probable pulmonary edema. We will continue intravenous furosemide twice daily and metoprolol succinate. (4) Elevated troponin Status: Acute Assessment & Plan: He had a marginally elevated troponin level. This is in the presence of significant elevation of the creatinine kinase level which may be due to rhabdomyolysis. I suspect the troponin elevation is related to the elevated creatinine kinase level and DOES NOT represent an acute myocardial infarction. This is most likely noncardiac elevation of the troponin level. I do not see any indication for an invasive or noninvasive ischemic evaluation at this time. Furthermore, due to his methamphetamine abuse and noncompliance with medical therapy, he would not be a good candidate for an invasive cardiac evaluation. (5) Abnormal ECG Status: Acute Assessment & Plan: He did have progressive worsening of T wave inversion in the anterolateral leads but this eventually stabilized. His head CT did not show any acute abnormalities to explain the diffuse T wave changes. As above, due to his medication noncompliance and methamphetamine abuse, he would not be a good candidate for an invasive cardiac evaluation because if he needs to have coronary revascularization, he would need to be compliant with medication. (6) Rhabdomyolysis Status: Acute Assessment & Plan: This seems to have resolved since admission. (7) Acute kidney injury Status: Acute Assessment & Plan: Probably related to the rhabdomyolysis. This also seems to have resolved. (8) Noncompliance with medication regimen Status: Chronic Assessment & Plan: This makes chronic management of his medical conditions extremely difficult. Problem Qualifiers (1) Rhabdomyolysis: Rhabdomyolysis type: non-traumatic Qualified Codes: M62.82 - Rhabdomyolysis DONAVAN RODRIGUEZ JR, MD Oct 09, 2021 12:40
[2021-10-09] MEDS: NOREPINEPHRINE 8 MG/250 ML 250 ML IV SCH ×2 (13:13→20:19)
[2021-10-09] MEDS ORDERED: NS IV 1000 ML 1,000 ML IV SCH (13:30)
--- NOTE | 2021-10-09 23:14 | Tele-ICU Progress Note ---
Progress Note TELE-ICU Note Called by bedside nurse because pt is complaining of chest discomfort, she took an EKG and faxed it to tele-ICU. Patient was admitted 10/02 with methamphetamine overdose, followed by cardiology for chronic atrial flutter/fibrillation and CHF with EF 30-35% on this admission. Today's CXR did show pulmonary edema for which he was continued on lasix BID and metoprolol by cardiology. EKG shows aflutter with rate about 100, ST depression and T wave inversions in V3-6 and in inferior leads, not different from today's AM EKG or admit EKGs, although was in sinus on admit. Will obtain troponin now and repeat 2 hours- nursing will notify cardiology also. Focused Exam Height, Weight, BMI Height: '" Weight: lbs. oz. kg; 26.14 BMI Method: Time of Focused Exam: 05:36 TIFFANY ROBERSON DO Oct 09, 2021 23:14
[2021-10-09] MEDS ORDERED: NITROGLYCERIN 2% OINT 1 GM UNIT DOSE PACKET TOP ONE (23:45)
[2021-10-10] MEDS: KCL 20 MEQ TAB (K-DUR) PO SCH (03:49)
[2021-10-10] MEDS: MAGNESIUM 1 GM/100 ML IVPB 100 ML IV SCH ×4 (03:49→08:54)
[2021-10-10] MEDS: POTASSIUM CL 10MEQ/50ML IVPB 50 ML IV SCH ×3 (03:49→06:04)
[2021-10-10] MEDS: NOREPINEPHRINE 8 MG/250 ML 250 ML IV SCH (03:49)
[2021-10-10 04:26] LABS: BASOPHILS % (AUTO) 0 % (0-10); EOSINOPHILS # (AUTO) 0.2 10^3/uL (0.0-0.3); EOSINOPHILS % (AUTO) 1 % (0-10); HEMATOCRIT 44 % (40-54); LYMPHOCYTES # (AUTO) 1.3 10^3/uL (1.0-4.0); LYMPHOCYTES % (AUTO) 8 % (12-44); MEAN CORPUSCULAR HEMOGLOBIN 27 pg (25-34); MEAN CORPUSCULAR HGB CONC 32 g/dL (32-36); MEAN CORPUSCULAR VOLUME 86 fL (80-99); MEAN PLATELET VOLUME 10.4 fL (9.0-12.2); MONOCYTES # (AUTO) 1.7 10^3/uL (0.0-1.0); MONOCYTES % (AUTO) 11 % (0-12); NEUTROPHILS % (AUTO) 79 % (42-75); PLATELET COUNT 343 10^3/uL (130-400); WHITE BLOOD COUNT 15.2 10^3/uL (4.3-11.0)
[2021-10-10] MEDS: MELATONIN 3 MG TABLET PO PRN (04:32)
[2021-10-10 04:40] LABS: ALBUMIN 2.9 GM/DL (3.2-4.5); CHLORIDE 94 MMOL/L (98-107); POTASSIUM 3.4 MMOL/L (3.6-5.0); SODIUM 135 MMOL/L (135-145)
[2021-10-10 04:42] LABS: CALCIUM 9.2 MG/DL (8.5-10.1)
[2021-10-10 04:43] LABS: GLUCOSE 130 MG/DL (70-105); TOTAL PROTEIN 6.5 GM/DL (6.4-8.2)
[2021-10-10 04:44] LABS: CARBON DIOXIDE 31 MMOL/L (21-32)
[2021-10-10 04:45] LABS: BILIRUBIN,TOTAL 1.7 MG/DL (0.1-1.0)
[2021-10-10 04:46] LABS: ALKALINE PHOSPHATASE 201 U/L (40-136); CREATININE SERUM 0.67 MG/DL (0.60-1.30); GFR ESTIMATED 130; PHOSPHORUS 2.6 MG/DL (2.3-4.7)
[2021-10-10 04:47] LABS: BUN/CREATININE RATIO 28
[2021-10-10 04:49] LABS: ALANINE AMINOTRANSFERASE 80 U/L (0-55); MAGNESIUM 1.6 MG/DL (1.6-2.4)
[2021-10-10 05:19] LABS: LYMPHOCYTES % (MANUAL) 6 %; MONOCYTES % (MANUAL) 6 %; NEUTROPHILS % (MANUAL) 88 %
--- NOTE | 2021-10-10 06:00 | Progress Note - Hospitalist ---
Subjective HPI/CC On Admission Date Seen by Provider: Oct 10, 2021 Time Seen by Provider: 11:00 Chief complaint: Respiratory failure History present illness: This is a 41-year-old white male known to me from multiple hospital stays all of them related to methamphetamine use who presented to the ER with respiratory failure. He was intubated. He has a history of congestive heart failure and atrial fibrillation. ICU has been consulted along with cardiology. He on the vent. Subjective/Events-last exam Patient doing well Transfer to fourth floor Anxiousness will require Ativan for withdrawal Check meds labs He usually leaves AMA Review of Systems General: Fatigue, Malaise Focused Exam Time of Focused Exam: 05:36 Objective Exam Vital Signs Vital Signs Date Time Temp Pulse Resp B/P (MAP) Pulse Ox O2 Delivery O2 Flow Rate FiO2 10/10/21 19:25 96 Room Air 10/10/21 15:44 36.8 82 22 145/93 10/10/21 11:00 1.00 10/08/21 21:06 40 Capillary Refill : Less Than 3 Seconds General Appearance: No Apparent Distress, WD/WN, Chronically ill Respiratory: Lungs Clear, Normal Breath Sounds Cardiovascular: Regular Rate, Rhythm Results/Procedures Lab Laboratory Tests 10/10/21 04:15 Patient resulted labs reviewed. Assessment/Plan Assessment and Plan Assess & Plan/Chief Complaint Assessment: Acute respiratory failure status post extubation 2 days ago Severe meth use Anxiousness A. fib Plan: Transfer to fourth floor Critical Care Critically Ill Patient Diagnosis/Problems Diagnosis/Problems (1) Severe sepsis (2) Shock liver (3) Respiratory failure (4) Methamphetamine abuse Status: Acute (5) Encephalopathy acute Status: Acute (6) Pneumonia Status: Acute Qualifiers: Pneumonia type: due to unspecified organism Laterality: right Lung location: upper lobe of lung Qualified Codes: J18.9 - Pneumonia, unspecified organism (7) Rhabdomyolysis Status: Acute Qualifiers: Rhabdomyolysis type: non-traumatic Qualified Codes: M62.82 - Rhabdomyolysis (8) Dehydration Status: Acute (9) Elevated troponin Status: Acute (10) Sepsis (11) NICM (nonischemic cardiomyopathy) Status: Chronic (12) Acute on chronic systolic heart failure Status: Acute (13) Noncompliance with medication regimen Status: Chronic (14) Substance abuse Status: Chronic (15) Cardiomyopathy Status: Chronic (16) Acute kidney injury Status: Acute (17) Paroxysmal atrial fibrillation Status: Chronic BK COLE DO Oct 10, 2021 06:00
[2021-10-10] MEDS: FUROSEMIDE 40 MG/4 ML INJ (LASIX) IVP SCH ×2 (06:04→17:36)
[2021-10-10] MEDS: AMIODARONE 200 MG (CORDARONE) TAB PO SCH ×2 (08:35→19:53)
[2021-10-10] MEDS: APIXABAN 5 MG (ELIQUIS) TABLET PO SCH ×2 (08:35→19:53)
[2021-10-10] MEDS: PANTOPRAZOLE 40 MG (PROTONIX) VIAL IV SCH (08:35)
--- NOTE | 2021-10-10 09:22 | Physical Therapy Evaluation ---
PT Evaluation-General Medical Diagnosis Admission Date Oct 02, 2021 at 10:49 Medical Diagnosis: Respiratory Failure Onset Date: Oct 02, 2021 Therapy Diagnosis Therapy Diagnosis: impaired mobility, strength, endurance Precautions Precautions/Isolations: Aspiration, Fall Prevention, Standard Precautions, Pressure Ulcer Referral Physician: Rocio Reason for Referral: Evaluation/Treatment Medical History Pertinent Medical History: Atrial Fib, Alcoholism, HTN, Smoking Additional Medical History Past Medical History Surgeries: Abdominal, Appendectomy Atrial Fibrillation, Cardiomyopathy, High Cholesterol, Hypertension Gastroesophageal Reflux Blood Disorders: No AF Meth use Reviewed History: Yes Social History Home: Apartment Current Living Status: Other Family Entry Into Home: Stairs With Railing Patient states there are many steps, he lives in a second story apartment Prior Prior Level of Function SCALE: Activities may be completed with or without assistive devices. 0-Bklpywxdcu-xkwprbm completes the activity by him/herself with no assistance from a helper. 5-Set-up or Clean-up Assistance-helper sets up or cleans up; patient completes activity. [place] assists only prior to or following the activity. 4-Supervision or Touching Assistance-helper provides verbal cues and/or touching/steadying and/or contact guard assistance as patient completes activity. Assistance may be provided throughout the activity or intermittently. 3-Partial/Moderate Assistance-helper does LESS THAN HALF the effort. [place] lifts, holds or supports trunk or limbs, but provides less than half the effort. 2-Substantial/Maximal Assistance-helper does MORE THAN HALF the effort. [place] lifts or holds trunk or limbs and provides more than half the effort. 5-Opimfgbcd-tspusu does ALL the effort. Patient does none of the effort to complete the activity. Or, the assistance of 2 or more helpers is required for the patient to complete the activity. If activity was not attempted, code reason: 7-Patient Refused. 9-Not Applicable-not attempted and the patient did not perform the activity before the current illness, exacerbation or injury. 10-Not Attempted due to Environmental Limitations-(lack of equipment, weather restraints, etc.). 88-Not Attempted due to Medical Conditions or Safety Concerns. Bed Mobility: 6 Transfers (B,C,W/C): 6 Gait: 6 Stairs: 6 Indoor Mobility (Ambulation): Independent Stairs: Independent PT Evaluation-Current Subjective Patient in bed pre tx, agrees to PT, has unrated pain in right hand. Pt/Family Goals to be independent at home Objective Patient Orientation: Person, Place Attachments: Oxygen, Locke Catheter, IV ROM/Strength ROM Lower Extremities WNL Strength Lower Extremities BLE grossly 4/5 Sensory Hearing: Functional Sensation Right Lower Extremit: Intact Sensation Left Lower Extremity: Intact Transfers Roll Left to Right (QC): 6 Sit to Lying (QC): 3 Lying to Sitting/Side of Bed(Q: 3 Sit to Stand (QC): 3 Patient was able to stand at the side of the bed with min assist, he is very uns teady, after standing for a few seconds he takes a few steps toward the head of the bed and O2 drops rapidly to 70%, patient lays back down, with purse lip breathing it comes back up to 90% in about 20 seconds. Balance Sitting Static: Fair Sitting Dynamic: Fair Standing Static: Poor Standing Dynamic: Poor Assessment/Needs Patient in bed post tx with nurse call, phone, tray, all needs met, bed alarm on. Patient has impaired mobility, strength, endurance. Patient is very unsteady on his feet and O2 drops with activity. Rehab Potential: Fair PT Fpc Goals Fpc Goals PT C.O.D. Biller Goals Time Frame: Oct 17, 2021 Roll Left & Right (QC): 6 Sit to Lying (QC): 4 Lying-Sitting on Side/Bed(QC): 4 Sit to Stand (QC): 4 Chair/Jtz-es-Vpwwb Xfer(QC): 4 Walk 10 feet (QC): 4 Walk 50ft with 2 Turns (QC): 4 PT Plan Problem List Problem List: Activity Tolerance, Functional Strength, Safety, Balance, Gait, Transfer, Bed Mobility, ROM Treatment/Plan Treatment Plan: Continue Plan of Care Treatment Plan: Bed Mobility, Education, Functional Activity Damien, Functional Strength, Gait, Safety, Therapeutic Exercise, Transfers Treatment Duration: Oct 17, 2021 Frequency: 6 times per week Estimated Hrs Per Day: .25 hour per day Patient and/or Family Agrees t: Yes Safety Risks/Education Patient Education: Correct Positioning, Safety Issues Teaching Recipient: Patient Teaching Methods: Demonstration, Discussion Response to Teaching: Reinforcement Needed Discharge Recommendations Plan Patient will perform bed mobility and transfer training, balance and endurance training, functional strengthening, stair training, gait training, and edu cation. Therapy Discharge Recommendati: Home & Family, Post Acute PT Time/GCodes Time In: 0845 Time Out: 0855 Total Billed Treatment Time: 10 Total Billed Treatment 1 visit EVM QUIRINO CONNELL PT Oct 10, 2021 09:22
--- NOTE | 2021-10-10 10:11 | Tele-ICU Progress Note ---
Subjective Date Seen by a Provider: Oct 10, 2021 Time Seen by a Provider: 10:10 Subjective/Events-last exam Patient today is more alert and able to tolerate clear liquid diet. Hemodynamically stable. He is not on any pressors. Sepsis Event Evaluation Height, Weight, BMI Height: '" Weight: lbs. oz. kg; 26.14 BMI Method: Focused Exam Time of Focused Exam: 05:36 Exam Exam Patient acknowledged, consented, and participated in this virtual visit which was conducted using real time audio/video Vital Signs Date Time Temp Pulse Resp B/P (MAP) Pulse Ox O2 Delivery O2 Flow Rate FiO2 10/10/21 09:00 83 10 100 Nasal Cannula 1.00 10/10/21 08:10 36.5 10/10/21 08:01 Nasal Cannula 1.00 10/10/21 08:00 Nasal Cannula 1.00 10/10/21 08:00 92 17 98 Room Air 10/10/21 07:00 84 22 98 Room Air 10/10/21 07:00 100 10/10/21 06:00 81 20 97 Room Air 10/10/21 05:00 98 19 98 Room Air 10/10/21 04:00 101 17 97 Room Air 10/10/21 04:00 96 Nasal Cannula 2.00 10/10/21 03:00 92 24 100 Room Air 10/10/21 02:00 81 25 100 Room Air 10/10/21 01:00 89 22 98 Room Air 10/10/21 01:00 90 10/10/21 00:00 89 20 99 Room Air 10/09/21 23:59 98 Nasal Cannula 2.00 10/09/21 23:00 97 22 99 Room Air 10/09/21 22:54 37.1 10/09/21 22:00 90 21 97 Room Air 10/09/21 21:09 Room Air 10/09/21 21:00 94 21 94 Nasal Cannula 2.00 10/09/21 20:00 96 Nasal Cannula 2.00 10/09/21 20:00 109 24 96 Nasal Cannula 2.00 10/09/21 19:58 37.0 10/09/21 19:00 98 25 99 Nasal Cannula 2.00 10/09/21 19:00 115 10/09/21 18:00 117 30 96 Nasal Cannula 2.00 10/09/21 17:00 83 15 99 Nasal Cannula 2.00 10/09/21 16:08 110 23 98 Nasal Cannula 2.00 10/09/21 16:00 36.9 10/09/21 16:00 97 Nasal Cannula 2.00 10/09/21 15:00 107 31 96 Nasal Cannula 2.00 10/09/21 14:00 107 22 Nasal Cannula 2.00 10/09/21 13:00 105 23 95 Nasal Cannula 2.00 10/09/21 12:32 116 10/09/21 12:00 97 Nasal Cannula 2.00 10/09/21 12:00 98 14 93 Nasal Cannula 2.00 10/09/21 11:30 37.1 10/09/21 11:00 93 24 95 Nasal Cannula 2.00 I & O 10/10/21 07:00 Intake Total 1790 ml Output Total 3590 ml Balance -1800 ml Height & Weight Height: '" Weight: lbs. oz. kg; 26.14 BMI Method: General Appearance: No Apparent Distress, WD/WN, Chronically ill, Other (Groggy/Sluggish) HEENT: PERRL/EOMI (3 mm reactive); No Moist Mucous Membranes ( dry oral mucosa cracked lips) Neck: Full Range of Motion, Non Tender Respiratory: Lungs Clear Cardiovascular: Regular Rate, Rhythm Capillary Refill: Less Than 3 Seconds Peripheral Pulses: 2+ Radial Pulses (R), 2+ Radial Pulses (L) Gastrointestinal: soft, no organomegaly Extremity: Normal Inspection, No Pedal Edema Neurologic/Psychiatric: Alert, Oriented x3, Depressed Affect Skin: Normal Color Results Lab Laboratory Tests 10/09/21 04:08 10/10/21 04:15 Assessment/Plan Assessment/Plan Tele-ICU Physician , Progress Note ) Available chart/ vitals / labs / Images reviewed Video assessment done using teleICU camera, rest of exam as per RN Discussed with RN , EXAM PER RN Events overnight : Afebrile FiO2 - 2 L N/C I/O = neg Drips: EXTUBATED ON 09/3021. ON N/C. RESTING COMFORTABLY Consultants: Hospital course: 10/02 ARF ., AMS, PNA , rhabdo 10/03 - off levo 10/04 - fio2 25 % fio2 10/06 - A FIB RVR 10/08 - increase sputum , 40 % fio2 - follows commands. 12/30 extubated and tolerated. 10/09. no distress on 2l n/c 10/10/21 ON O2 2L N/C. NO DISTRESS. OK TO TELE UNIT A/P Acute resp failure - extubated on 10/08/21. 10/09/ fio2 2l n/c - CPM now PNA , RUL ( covid neg = z mqx - merrem - cxr worsening - provbably VO / effusion - ivf ns 40 cc/hr. stop lasix - INCREASED SPUTUM - cont abx , check sputum cx acute mental status change - CTH 10/02 neg - _ met and amthet in urine - mental status improving PAF , now afib RVR 10/06 - as per cards -as per cards on eliquis Elevated LFT - neg hepatitis and HIV panel- improving Rhabdo -will repeat cpk FLAKITA -slow hydration with ns 40mls/hr as he is not drinking. stop lasix Coagulopathy - ? due to liver failure - follow - IMPROVING Elv trop - cards consulted Lines : right IJ 10/02 (Central Line Necessity Reviewed) Locke: 10/02 OG: + Nutrition: TF Analgesia: Anxiety/ delirium VTE Prophylaxis: eliquis Stress Ulcer Prophylaxis: ppi Glycemic Control: Plans in collaboration with bedside consultants and IM MDs. Discussed with RN to reach out if any questions or concerns A total of 25 minutes of critical care time was devoted to this patient today, required to treat and/or prevent further deterioration of critical care condition ( as above) . Critical Care: Critically Ill Patient Time spent with patient (mins): 20 JUS JOSEPH MD Oct 10, 2021 10:11
[2021-10-10] MEDS ORDERED: LORazepam 0.5 MG (ATIVAN) TABLET PO ONE (10:15)
--- NOTE | 2021-10-10 10:19 | Occupational Therapy Eval ---
OT Evaluation-General/PLF Medical Diagnosis Admission Date Oct 02, 2021 at 10:49 Medical Diagnosis: Respiratory Failure Onset Date: Oct 02, 2021 Therapy Diagnosis Therapy Diagnosis: decreased ADL Status Precautions Precautions/Isolations: Aspiration, Fall Prevention, Standard Precautions, Pressure Ulcer Referral Physician: Rocio Referral Reason: Evaluation/Treatment Medical History Pertinent Medical History: Atrial Fib, Alcoholism, HTN, Smoking Additional Medical History afib, cardiomyopathy, HTN, GERD, meth use Current History ED due to respiratory failure, intubated 10/02/21, extubated 10/08/21. Social History Home: Apartment Current Living Status: Other Family Entry Into Home: Stairs With Railing ADL-Prior Level of Function SCALE: Activities may be completed with or without assistive devices. 0-Rulhakgxba-qkjzzfq completes the activity by him/herself with no assistance from a helper. 5-Set-up or Clean-up Assistance-helper sets up or cleans up; patient completes activity. [place] assists only prior to or following the activity. 4-Supervision or Touching Assistance-helper provides verbal cues and/or touching/steadying and/or contact guard assistance as patient completes activity. Assistance may be provided throughout the activity or intermittently. 3-Partial/Moderate Assistance-helper does LESS THAN HALF the effort. [place] lifts, holds or supports trunk or limbs, but provides less than half the effort. 2-Substantial/Maximal Assistance-helper does MORE THAN HALF the effort. [place] lifts or holds trunk or limbs and provides more than half the effort. 4-Oncvvrzvt-gcjmcn does ALL the effort. Patient does none of the effort to complete the activity. Or, the assistance of 2 or more helpers is required for the patient to complete the activity. If activity was not attempted, code reason: 7-Patient Refused. 9-Not Applicable-not attempted and the patient did not perform the activity before the current illness, exacerbation or injury. 10-Not Attempted due to Environmental Limitations-(lack of equipment, weather restraints, etc.). 88-Not Attempted due to Medical Conditions or Safety Concerns. ADL PLOF Comments Pt reports IND with ADLs and functional mobility at PLOF, no AD/AE. Self Care: Independent Functional Cognition: Independent OT Current Status Subjective Pt in bed, agreeable to OT Tx. Pt focused on wanting to call his niece Audrey to ask if he can go stay with her after he leave the hospital. OT attempted to assist pt with calling Audrey, but unable to call long distance on pt's phone. Mental Status/Objective Patient Orientation: Person, Place, Situation Attachments: Locke Catheter, IV, Oxygen Current Hand Dominance: Right Upper Extremity ROM WFL, BUE shoulder flexion to approx 140 degrees. Pt grunted with movements saying it takes a lot of effort. Upper Extremity Coordination Slightly decreased bilaterally. Upper Extremity Sensation WFL Upper Extremity Strength grossly 3+/5 ADL-Treatment Eating (QC): 4 (SBA with breakfast.) Toileting Hygiene (QC): 1 (catheter) Other Treatments Pt in bed, agreeable to OT Tx. Pt provided information about PLOF and home set up to his ability, easily distracted throughout session and focused on getting in touch with his niece Audrey. OT informed pt she would assist him with calling at the end of session, he agreed. Pt eating breakfast upon OT entry, eating soft diet with his fingers. Pt's silverware still in napkin on his tray table. OT asked pt if he had difficulty with utensils today, he states yes but doesn't provide information on how it is difficulty. OT handed pt spoon, he was able to hold in R hand and use in "scooping" motion to moss picker eggs from bowl. OT provided pt with built up foam and placed on spoon and fork, pt able to hold built up utensil in his R hand, pt declined trialing utensils as he doesn't want any other food. Per nursing report, pt able to eat pudding with plastic spoon after set up assistance this AM. Pt washed his face, hands and arms after set up of a wash cloth. OT provided pt with heavy resistance senior care specialist sponge in order to increase BUE fine motor strength, completing x10 reps each hand. In order to increase BUE strength and activity tolerance, pt completed x5 reps each of the following BUE exercises: shoulder flexion, elbow flexion/extension and front punch, stating it takes increased effort to perform movements. OT instructed pt to complete exercises throughout the day, increasing reps as tolerated. OT assisted with positioning pt to comfort, he was able to roll side to side independently. OT attempted to assist pt with calling his niece, but unable to call using pt's room phone due to call being long distance. Per PT note, pt requires min A with sit to lying, lying to sit EOB, and sit to stands, very unsteady with stands. Post tx, pt in bed, call light in reach and all needs met, bed alarm activated. Education OT Patient Education: Correct positioning, Energy conservation, Exercise program, Modified ADL techniques, Progress toward Goal/Update tx plan, Purpose of tx/functional activities Teaching Recipient: Patient Teaching Methods: Discussion Response to Teaching: Verbalize Understanding OT Longterm Goals Educational Paraprofessional Goals Time Frame: Oct 24, 2021 Eating (QC): 6 Oral Hygiene (QC): 6 Toileting Hygiene (QC): 4 Shower/Bathe Self (QC): 4 Upper Body Dressing (QC): 5 Lower Body Dressing (QC): 4 On/Off Footwear (QC): 4 Additional Goals: 1-Demonstrate ADL Tasks, 2-Verbalize Understanding, 3- ImproveStrength/Damien 1=Demonstrate adherence to instructed precautions during ADL tasks. 2=Patient will verbalize/demonstrate understanding of assistive devices/modifications for ADL. 3=Patient will improve strength/tolerance for activity to enable patient to perform ADL's. OT Education/Plan Problem List/Assessment Assessment: Decreased Activ Tolerance, Decreased UE Strength, Impaired Funct Balance, Impaired I ADL's, Impaired Self-Care Skills Discharge Recommendations Plan/Recommendations: Continue POC Treatment Plan/Plan of Care Patient would benefit from OT for education, treatment and training to promote independence in ADL's, mobility, safety and/or upper extremity function for ADL's. Plan of Care: ADL Retraining, Functional Mobility, UE Funct Exercise/Act Treatment Duration: Oct 24, 2021 Frequency: 3 times per week (3-5 times per week) Estimated Hrs Per Day: .25 hour per day Agreement: Yes Rehab Potential: Fair Time/GCodes Start Time: 09:49 Stop Time: 10:12 Total Time Billed (hr/min): 23 Billed Treatment Time 1, EVM (10'), ADL (13') ENEDELIA REILLY OT Oct 10, 2021 10:19
--- NOTE | 2021-10-10 10:20 | Cardiology Progress Note ---
Progress Note-Cardiology Events since last exam Date Seen by Provider: Oct 10, 2021 Time Seen by Provider: 10:15 Events since last exam I am following him due to atrial fibrillation/flutter and abnormal electrocar diogram with marginally elevated troponin level. He remains in the ICU but will probably be transferred to the medical floor on telemetry later today. Last evening I was called by the nurse because the patient had a brief episode of chest discomfort. This morning he states that his chest discomfort has resolved. He denies dyspnea at rest, palpitations, syncope, or ankle edema. Certain portions of this document may have been dictated utilizing voice recognition technology. Inherent to this technology, typographical and grammatical errors may exist. As much as I am diligent to identify and correct these mistakes, some errors may remain in the document. Vitals Last set of Vitals Signs Vital Signs 10/08/21 10/08/21 10/10/21 10/10/21 04:58 21:06 08:10 09:00 Temp 36.5 Pulse 83 Resp 10 B/P (MAP) 132/78 Pulse Ox 100 O2 Delivery Nasal Cannula O2 Flow Rate 1.00 FiO2 40 Labs Labs Laboratory Tests 10/10/21 04:15 Exam Vital Signs Vital Signs Date Time Temp Pulse Resp B/P (MAP) Pulse Ox O2 Delivery O2 Flow Rate FiO2 10/10/21 09:00 83 10 100 Nasal Cannula 1.00 10/10/21 08:10 36.5 10/08/21 21:06 40 Physical Exam General: Alert. No acute distress. Eye: No xanthelasma. HENT: Normocephalic. Neck: Jugular venous pressure does not appear elevated. Respiratory: Lungs are clear to auscultation. Respirations are non-labored. Breath sounds are equal. Symmetrical chest wall expansion. Cardiovascular: Normal rate. Regular rhythm. No murmur. No gallop. No edema. Gastrointestinal: Soft. Normal bowel sounds. Skin: Warm. Dry. Neurologic: Alert and oriented to person, place, time. Cranial nerves 3-11 grossly intact. Psychiatric: Cooperative. Appropriate mood & affect. Labs Laboratory Tests Test 10/09/21 11:26 10/09/21 18:07 10/09/21 22:45 10/10/21 04:15 Range/Units Glucometer 125 H 160 H 70-110 MG/DL Troponin I < 0.028 < 0.028 <0.028 NG/ML White Blood Count 15.2 H 4.3-11.0 10^3/uL Red Blood Count 5.17 4.30-5.52 10^6/uL Hemoglobin 14.0 13.3-17.7 g/dL Hematocrit 44 40-54 % Mean Corpuscular Volume 86 80-99 fL Mean Corpuscular Hemoglobin 27 25-34 pg Mean Corpuscular Hemoglobin Concent 32 32-36 g/dL Red Cell Distribution Width 16.4 H 10.0-14.5 % Platelet Count 343 130-400 10^3/uL Mean Platelet Volume 10.4 9.0-12.2 fL Immature Granulocyte % (Auto) 1 % Neutrophils (%) (Auto) 79 H 42-75 % Lymphocytes (%) (Auto) 8 L 12-44 % Monocytes (%) (Auto) 11 0-12 % Eosinophils (%) (Auto) 1 0-10 % Basophils (%) (Auto) 0 0-10 % Neutrophils # (Auto) 12.0 H 1.8-7.8 10^3/uL Lymphocytes # (Auto) 1.3 1.0-4.0 10^3/uL Monocytes # (Auto) 1.7 H 0.0-1.0 10^3/uL Eosinophils # (Auto) 0.2 0.0-0.3 10^3/uL Basophils # (Auto) 0.0 0.0-0.1 10^3/uL Immature Granulocyte # (Auto) 0.1 0.0-0.1 10^3/uL Neutrophils % (Manual) 88 % Lymphocytes % (Manual) 6 % Monocytes % (Manual) 6 % Sodium Level 135 135-145 MMOL/L Potassium Level 3.4 L 3.6-5.0 MMOL/L Chloride Level 94 L 98-107 MMOL/L Carbon Dioxide Level 31 21-32 MMOL/L Anion Gap 10 5-14 MMOL/L Blood Urea Nitrogen 19 H 7-18 MG/DL Creatinine 0.67 0.60-1.30 MG/DL Estimat Glomerular Filtration Rate 130 BUN/Creatinine Ratio 28 Glucose Level 130 H 70-105 MG/DL Calcium Level 9.2 8.5-10.1 MG/DL Corrected Calcium 10.1 8.5-10.1 MG/DL Phosphorus Level 2.6 2.3-4.7 MG/DL Magnesium Level 1.6 1.6-2.4 MG/DL Total Bilirubin 1.7 H 0.1-1.0 MG/DL Aspartate Amino Transf (AST/SGOT) 78 H 5-34 U/L Alanine Aminotransferase (ALT/SGPT) 80 H 0-55 U/L Alkaline Phosphatase 201 H 40-136 U/L Total Protein 6.5 6.4-8.2 GM/DL Albumin 2.9 L 3.2-4.5 GM/DL Triglycerides Level 115 <150 MG/DL Radiology Electrocardiogram obtained on 10/09/2021 shows atrial flutter with 2-[address] with diffuse [address]-T wave changes, possibly consistent with ischemia. Diagnosis/Problems Diagnosis/Problems (1) Chest pain Status: Acute Assessment & Plan: Exact etiology unclear. He had 2 follow-up troponin levels that were undetectable on 10/09-10/10. He has persistent ischemic changes on his electrocardiogram. I would recommend that we continue the present medical therapy. Even if his chest discomfort is due to coronary artery disease, he is not a good candidate for an invasive cardiac evaluation due to his history of noncompliance and methamphetamine abuse with multiple previous overdoses including this admission. If he can abstain from methamphetamine and other illicit drugs, then we could consider an ischemic evaluation at that time. (2) Typical atrial flutter Assessment & Plan: He had recurrent atrial fibrillation and typical atrial flutter during this hospitalization. He is on apixaban for stroke prophylaxis. Unclear whether or not he was taking this at home. I had started him on amiodarone infusion and then transitioned this to oral amiodarone. I performed a cardioversion on 10/08 which would convert him to sinus rhythm but within a short period of time, he would revert back to atrial fibrillation/flutter. I will continue the oral amiodarone loading and continue apixaban. We may want to consider another attempt at cardioversion prior to discharge or a few weeks after discharge. He is on metoprolol for rate control. I will titrate this upwards as tolerated by his blood pressure. He was on digoxin at home but given his history of drug abuse, this may not be the safest medication for him to take. (3) Cardiomyopathy Status: Chronic Assessment & Plan: A follow-up echocardiogram from this admission shows an ejection fraction of 30-35%. This is similar to the transesophageal echocardiogram from November,. We will continue metoprolol succinate. We may also want to consider a low-dose NOLVIA inhibitor if his blood pressure remains reasonable. (4) Acute on chronic systolic heart failure Status: Acute Assessment & Plan: His chest x-ray from 10/09/2021 was consistent with probable pulmonary edema. We will continue intravenous furosemide twice daily and metoprolol succinate. I will obtain a follow-up chest x-ray tomorrow. (5) Elevated troponin Status: Acute Assessment & Plan: He had a marginally elevated troponin level at the time of admission. This is in the presence of significant elevation of the creatinine kinase level which was probably due to rhabdomyolysis. I suspect the troponin elevation is related to the elevated creatinine kinase level and DOES NOT represent an acute myocardial infarction. This is most likely noncardiac elevation of the troponin level. As outlined above, I do not see any indication for an invasive or noninvasive ischemic evaluation at this time. Furthermore, due to his methamphetamine abuse and noncompliance with medical therapy, he would not be a good candidate for an invasive cardiac evaluation. (6) Abnormal ECG Status: Acute Assessment & Plan: He did have progressive worsening of T wave inversion in the anterolateral leads but this eventually stabilized. His head CT did not show any acute abnormalities to explain the diffuse T wave changes. As above, due to his medication noncompliance and methamphetamine abuse, he would not be a good candidate for an invasive cardiac evaluation because if he needs to have coronary revascularization, he would need to be compliant with medication. (7) Rhabdomyolysis Status: Acute Assessment & Plan: This seems to have resolved since admission. (8) Acute kidney injury Status: Acute Assessment & Plan: Probably related to the rhabdomyolysis. This also seems to have resolved. (9) Noncompliance with medication regimen Status: Chronic Assessment & Plan: This makes chronic management of his medical conditions extremely difficult. Problem Qualifiers (1) Rhabdomyolysis: Rhabdomyolysis type: non-traumatic Qualified Codes: M62.82 - Rhabdomyolysis DONAVAN RODRIGUEZ JR, MD Oct 10, 2021 10:20
[2021-10-10] MEDS: clonazePAM 0.5 MG (KlonoPIN) TAB PO PRN (19:53)
[2021-10-11] MEDS: LORazepam 0.5 MG (ATIVAN) TABLET PO PRN ×3 (00:06→23:30)
[2021-10-11] MEDS: MELATONIN 3 MG TABLET PO PRN (00:06)
[2021-10-11] MEDS: FUROSEMIDE 40 MG/4 ML INJ (LASIX) IVP SCH ×2 (05:52→16:43)
[2021-10-11 06:03] LABS: BASOPHILS % (AUTO) 0 % (0-10); EOSINOPHILS # (AUTO) 0.2 10^3/uL (0.0-0.3); EOSINOPHILS % (AUTO) 2 % (0-10); HEMATOCRIT 42 % (40-54); HEMOGLOBIN 13.5 g/dL (13.3-17.7); LYMPHOCYTES # (AUTO) 1.9 10^3/uL (1.0-4.0); LYMPHOCYTES % (AUTO) 15 % (12-44); MEAN CORPUSCULAR HEMOGLOBIN 27 pg (25-34); MEAN CORPUSCULAR HGB CONC 32 g/dL (32-36); MEAN CORPUSCULAR VOLUME 85 fL (80-99); MEAN PLATELET VOLUME 10.9 fL (9.0-12.2); MONOCYTES # (AUTO) 1.6 10^3/uL (0.0-1.0); MONOCYTES % (AUTO) 13 % (0-12); NEUTROPHILS # (AUTO) 8.6 10^3/uL (1.8-7.8); NEUTROPHILS % (AUTO) 70 % (42-75); PLATELET COUNT 338 10^3/uL (130-400); WHITE BLOOD COUNT 12.4 10^3/uL (4.3-11.0)
[2021-10-11 06:15] LABS: ALBUMIN 2.6 GM/DL (3.2-4.5); POTASSIUM 2.9 MMOL/L (3.6-5.0)
[2021-10-11 06:17] LABS: CALCIUM 8.8 MG/DL (8.5-10.1)
[2021-10-11 06:18] LABS: TOTAL PROTEIN 5.9 GM/DL (6.4-8.2)
[2021-10-11 06:20] LABS: BILIRUBIN,TOTAL 1.7 MG/DL (0.1-1.0)
[2021-10-11 06:21] LABS: CREATININE SERUM 0.61 MG/DL (0.60-1.30)
[2021-10-11 06:24] LABS: MAGNESIUM 1.5 MG/DL (1.6-2.4)
--- NOTE | 2021-10-11 07:16 | Progress Note - Hospitalist ---
Subjective HPI/CC On Admission Date Seen by Provider: Oct 11, 2021 Time Seen by Provider: 11:30 Chief complaint: Respiratory failure History present illness: This is a 41-year-old white male known to me from multiple hospital stays all of them related to methamphetamine use who presented to the ER with respiratory failure. He was intubated. He has a history of congestive heart failure and atrial fibrillation. ICU has been consulted along with cardiology. He on the vent. Subjective/Events-last exam Patient doing well DC Central line and since there is a loop in on on CXR Dr Hitesh HUIZAR it DC catheter Walked in halls DC to rehab tomorrow? Review of Systems General: Fatigue, Malaise Focused Exam Time of Focused Exam: 05:36 Objective Exam Vital Signs Vital Signs Date Time Temp Pulse Resp B/P (MAP) Pulse Ox O2 Delivery O2 Flow Rate FiO2 10/11/21 16:00 36.5 101 18 127/80 96 Room Air 10/11/21 08:26 0.00 10/08/21 21:06 40 Capillary Refill : Less Than 3 Seconds General Appearance: No Apparent Distress, WD/WN, Chronically ill Respiratory: Lungs Clear, Normal Breath Sounds Cardiovascular: Regular Rate, Rhythm Neurologic/Psychiatric: Alert, Oriented x3, No Motor/Sensory Deficits, Normal Mood/Affect Results/Procedures Lab Laboratory Tests 10/11/21 05:50 Patient resulted labs reviewed. Assessment/Plan Assessment and Plan Assess & Plan/Chief Complaint Assessment: Acute respiratory failure status post extubation 2 days ago Severe meth use Anxiousness A. fib Plan: Transfer to fourth floor 10/11/21: Ambulate DC catheter DC central line Critical Care Critically Ill Patient Diagnosis/Problems Diagnosis/Problems (1) Severe sepsis (2) Shock liver (3) Respiratory failure (4) Methamphetamine abuse Status: Acute (5) Encephalopathy acute Status: Acute (6) Pneumonia Status: Acute Qualifiers: Pneumonia type: due to unspecified organism Laterality: right Lung location: upper lobe of lung Qualified Codes: J18.9 - Pneumonia, unspecified organism (7) Rhabdomyolysis Status: Acute Qualifiers: Rhabdomyolysis type: non-traumatic Qualified Codes: M62.82 - Rhabdomyolysis (8) Dehydration Status: Acute (9) Elevated troponin Status: Acute (10) Sepsis (11) NICM (nonischemic cardiomyopathy) Status: Chronic (12) Acute on chronic systolic heart failure Status: Acute (13) Noncompliance with medication regimen Status: Chronic (14) Substance abuse Status: Chronic (15) Cardiomyopathy Status: Chronic (16) Acute kidney injury Status: Acute (17) Paroxysmal atrial fibrillation Status: Chronic BK COLE DO Oct 11, 2021 07:16
[2021-10-11] MEDS: AMIODARONE 200 MG (CORDARONE) TAB PO SCH ×2 (09:00→19:58)
[2021-10-11] MEDS: VENlafaxine XR 75 MG (EFFEXOR XR) CAP PO SCH (09:00)
[2021-10-11] MEDS: KCL 20 MEQ TAB (K-DUR) PO SCH ×2 (09:00→19:58)
[2021-10-11] MEDS: APIXABAN 5 MG (ELIQUIS) TABLET PO SCH ×2 (09:00→19:58)
[2021-10-11] MEDS: PANTOPRAZOLE 40 MG (PROTONIX) TAB PO SCH (09:00)
--- NOTE | 2021-10-11 09:56 | Diagnostic Imaging Report ---
EXAMINATION: Chest 2 view HISTORY: Acute respiratory failure. COMPARISON: 10/09/2021. FINDINGS: A right-sided central line is visualized which appears to have looped within the expected location of the right internal jugular vein. The tip remains within the low SVC. Improved aeration is seen in the lung bases. No focal consolidations. No pleural effusion or pneumothorax. Stable cardiac silhouette. IMPRESSION: 1. Improved aeration in the lung bases. 2. Interval looped appearance of the right-sided central line with the tip overlying the low SVC. This may cause inability to aspirate or inject through the line. Dictated by: Dictated on workstation # [id number]
--- NOTE | 2021-10-11 11:48 | Cardiology Progress Note ---
Progress Note-Cardiology Events since last exam Date Seen by Provider: Oct 11, 2021 Time Seen by Provider: 11:44 Events since last exam I am following him due to atrial fibrillation/flutter as well as cardiomyopathy and abnormal electrocardiogram with borderline elevated troponin level. He is now on the medical floor. He is much more awake and alert. He states he plans to go to an inpatient rehab for drug abuse when he is discharged from the hospital. He denies chest discomfort, dyspnea, palpitations, syncope, or ankle edema. He states that he can either use the bathroom or a urinal and wants to know if he can have his Locke catheter discontinued. Certain portions of this document may have been dictated utilizing voice recognition technology. Inherent to this technology, typographical and gramma tical errors may exist. As much as I am diligent to identify and correct these mistakes, some errors may remain in the document. Vitals Last set of Vitals Signs Vital Signs 10/08/21 10/11/21 10/11/21 10/11/21 21:06 08:26 12:15 12:36 Temp 37.0 Pulse 122 Resp 18 B/P (MAP) 107/69 Pulse Ox 97 O2 Delivery Room Air O2 Flow Rate 0.00 FiO2 40 Labs Labs Laboratory Tests 10/11/21 05:50 Exam Vital Signs Vital Signs Date Time Temp Pulse Resp B/P (MAP) Pulse Ox O2 Delivery O2 Flow Rate FiO2 10/11/21 12:36 122 10/11/21 12:15 37.0 18 107/69 97 Room Air 10/11/21 08:26 0.00 10/08/21 21:06 40 Physical Exam General: Alert. No acute distress. Eye: No xanthelasma. HENT: Normocephalic. Neck: Jugular venous pressure does not appear elevated. Respiratory: Lungs are clear to auscultation. Respirations are non-labored. Breath sounds are equal. Symmetrical chest wall expansion. Cardiovascular: Tachycardia with irregular rhythm. No murmur. No gallop. No edema. Gastrointestinal: Soft. Normal bowel sounds. Skin: Warm. Dry. Neurologic: Alert and oriented to person, place, time. Cranial nerves 3-11 grossly intact. Psychiatric: Cooperative. Appropriate mood & affect. Labs Laboratory Tests Test 10/11/21 05:50 Range/Units White Blood Count 12.4 H 4.3-11.0 10^3/uL Red Blood Count 4.98 4.30-5.52 10^6/uL Hemoglobin 13.5 13.3-17.7 g/dL Hematocrit 42 40-54 % Mean Corpuscular Volume 85 80-99 fL Mean Corpuscular Hemoglobin 27 25-34 pg Mean Corpuscular Hemoglobin Concent 32 32-36 g/dL Red Cell Distribution Width 16.0 H 10.0-14.5 % Platelet Count 338 130-400 10^3/uL Mean Platelet Volume 10.9 9.0-12.2 fL Immature Granulocyte % (Auto) 0 % Neutrophils (%) (Auto) 70 42-75 % Lymphocytes (%) (Auto) 15 12-44 % Monocytes (%) (Auto) 13 H 0-12 % Eosinophils (%) (Auto) 2 0-10 % Basophils (%) (Auto) 0 0-10 % Neutrophils # (Auto) 8.6 H 1.8-7.8 10^3/uL Lymphocytes # (Auto) 1.9 1.0-4.0 10^3/uL Monocytes # (Auto) 1.6 H 0.0-1.0 10^3/uL Eosinophils # (Auto) 0.2 0.0-0.3 10^3/uL Basophils # (Auto) 0.0 0.0-0.1 10^3/uL Immature Granulocyte # (Auto) 0.0 0.0-0.1 10^3/uL Sodium Level 138 135-145 MMOL/L Potassium Level 2.9 L 3.6-5.0 MMOL/L Chloride Level 95 L 98-107 MMOL/L Carbon Dioxide Level 33 H 21-32 MMOL/L Anion Gap 10 5-14 MMOL/L Blood Urea Nitrogen 15 7-18 MG/DL Creatinine 0.61 0.60-1.30 MG/DL Estimat Glomerular Filtration Rate 145 BUN/Creatinine Ratio 25 Glucose Level 87 70-105 MG/DL Calcium Level 8.8 8.5-10.1 MG/DL Corrected Calcium 9.9 8.5-10.1 MG/DL Magnesium Level 1.5 L 1.6-2.4 MG/DL Total Bilirubin 1.7 H 0.1-1.0 MG/DL Aspartate Amino Transf (AST/SGOT) 83 H 5-34 U/L Alanine Aminotransferase (ALT/SGPT) 74 H 0-55 U/L Alkaline Phosphatase 175 H 40-136 U/L Total Protein 5.9 L 6.4-8.2 GM/DL Albumin 2.6 L 3.2-4.5 GM/DL Diagnosis/Problems Diagnosis/Problems (1) Chest pain Status: Acute Assessment & Plan: Exact etiology unclear. He had 2 follow-up troponin levels that were undetectable on 10/09-10/10. This chest discomfort has resolved. He has persistent ischemic changes on his electrocardiogram. I would recommend that we continue the present medical therapy. Even if his chest discomfort is due to coronary artery disease, he is not a good candidate for an invasive cardiac evaluation due to his history of noncompliance and methamphetamine abuse with multiple previous overdoses including this admission. If he can abstain from methamphetamine and other illicit drugs, then we could consider an ischemic evaluation at that time. (2) Typical atrial flutter Assessment & Plan: He had recurrent atrial fibrillation and typical atrial fl utter during this hospitalization. He is on apixaban for stroke prophylaxis. Unclear whether or not he was taking this at home. I had started him on amiodarone infusion and then transitioned this to oral amiodarone. I performed a cardioversion on 10/08 which would convert him to sinus rhythm but within a short period of time, he would revert back to atrial fibrillation/flutter. I will continue the oral amiodarone loading and continue apixaban. We may want to consider another attempt at cardioversion prior to discharge or a few weeks after discharge. He is on metoprolol for rate control. I will titrate this upwards as tolerated by his blood pressure. He was on digoxin at home but given his history of drug abuse, this may not be the safest medication for him to take. (3) Cardiomyopathy Status: Chronic Assessment & Plan: A follow-up echocardiogram from this admission shows an ejection fraction of 30-35%. This is similar to the transesophageal echocardiogram from November,. We will continue metoprolol succinate. We may also want to consider a low-dose NOLVIA inhibitor if his blood pressure remains reasonable. (4) Acute on chronic systolic heart failure Status: Acute Assessment & Plan: His chest x-ray from 10/09/2021 was consistent with probable pulmonary edema. We will continue intravenous furosemide twice daily and metoprolol succinate. Much of this may have been related to the large volume of IV fluid he received to treat his rhabdomyolysis. (5) Elevated troponin Status: Acute Assessment & Plan: He had a marginally elevated troponin level at the time of admission. This is in the presence of significant elevation of the creatinine kinase level which was probably due to rhabdomyolysis. I suspect the troponin elevation is related to the elevated creatinine kinase level and DOES NOT represent an acute myocardial infarction. This is most likely noncardiac eron vation of the troponin level. As outlined above, I do not see any indication for an invasive or noninvasive ischemic evaluation at this time. Furthermore, due to his methamphetamine abuse and noncompliance with medical therapy, he would not be a good candidate for an invasive cardiac evaluation. (6) Abnormal ECG Status: Acute Assessment & Plan: He did have progressive worsening of T wave inversion in the anterolateral leads but this eventually stabilized. His head CT did not show any acute abnormalities to explain the diffuse T wave changes. As above, due to his medication noncompliance and methamphetamine abuse, he would not be a good candidate for an invasive cardiac evaluation because if he needs to have coronary revascularization, he would need to be compliant with medication. (7) Rhabdomyolysis Status: Acute Assessment & Plan: This seems to have resolved since admission. (8) Acute kidney injury Status: Acute Assessment & Plan: Probably related to the rhabdomyolysis. This also seems to have resolved. (9) Noncompliance with medication regimen Status: Chronic Assessment & Plan: This makes chronic management of his medical conditions extremely difficult. Problem Qualifiers (1) Rhabdomyolysis: Rhabdomyolysis type: non-traumatic Qualified Codes: M62.82 - Rhabdomyolysis DONAVAN RODRIGUEZ JR, MD Oct 11, 2021 11:48
--- NOTE | 2021-10-11 14:06 | Progress Note - Surgery ---
KAMERON LANCASTER MED STUDENT 10/11/21 1406: Subjective Date Seen by a Provider: Oct 11, 2021 Time Seen by a Provider: 13:45 Subjective/Events-last exam Pts central line was noted to be either looped or knotted on CXR. Medicine states they do not need the central line in anymore and it is okay to pull. Central line was pulled without difficulty and 2x2's taped to apply pressure. Pt tolerated procedure well and has not other concerns. Review of Systems General: No Chills HEENT: No Head Aches, No Visual Changes Pulmonary: No Dyspnea, No Cough Cardiovascular: No: Chest Pain, Palpitations, Edema Gastrointestinal: No: Nausea, Vomiting, Abdominal Pain, Diarrhea, Constipation, Melena Genitourinary: No Dysuria, No Incontinence, No Hematuria Musculoskeletal: No: leg pain, foot pain Neurological: No: Weakness Focused Exam Time of Focused Exam: 05:36 Objective Exam Vital Signs Date Time Temp Pulse Resp B/P (MAP) Pulse Ox O2 Delivery O2 Flow Rate FiO2 10/11/21 12:36 122 10/11/21 12:15 37.0 102 18 107/69 97 Room Air 10/11/21 08:26 98 Room Air 0.00 10/11/21 08:20 36.6 71 16 128/78 96 Room Air 10/11/21 08:00 98 Room Air 10/11/21 07:00 108 10/11/21 04:49 36.5 108 20 103/66 93 Room Air 10/11/21 02:00 86 10/11/21 00:00 36.6 75 22 101/61 98 Room Air 10/10/21 20:43 Room Air 10/10/21 19:34 36.8 71 20 177/90 93 Room Air 10/10/21 19:25 96 Room Air 10/10/21 19:00 89 10/10/21 15:44 36.8 82 22 145/93 93 Room Air I & O 10/11/21 07:00 Intake Total 2965 ml Output Total 4800 ml Balance -1835 ml Capillary Refill : Less Than 3 Seconds General Appearance: No Apparent Distress, WD/WN, Chronically ill HEENT: PERRL/EOMI, Moist Mucous Membranes ( dry oral mucosa cracked lips) Respiratory: Lungs Clear, Normal Breath Sounds, No Accessory Muscle Use, No Respiratory Distress Cardiovascular: Regular Rate, Rhythm, Normal Peripheral Pulses Peripheral Pulses: 2+ Radial Pulses (R), 2+ Radial Pulses (L) Gastrointestinal: soft, no organomegaly Extremity: Normal Inspection, No Pedal Edema Neurologic/Psychiatric: Alert, Oriented x3, Depressed Affect Skin: Normal Color Results Lab Laboratory Tests 10/11/21 05:50: White Blood Count 12.4H, Red Blood Count 4.98, Hemoglobin 13.5, Hematocrit 42, Mean Corpuscular Volume 85, Mean Corpuscular Hemoglobin 27, Mean Corpuscular Hemoglobin Concent 32, Red Cell Distribution Width 16.0H, Platelet Count 338, Mean Platelet Volume 10.9, Immature Granulocyte % (Auto) 0, Neutrophils (%) (Auto) 70, Lymphocytes (%) (Auto) 15, Monocytes (%) (Auto) 13H, Eosinophils (%) (Auto) 2, Basophils (%) (Auto) 0, Neutrophils # (Auto) 8.6H, Lymphocytes # (Auto) 1.9, Monocytes # (Auto) 1.6H, Eosinophils # (Auto) 0.2, Basophils # (Auto) 0.0, Immature Granulocyte # (Auto) 0.0, Sodium Level 138, Potassium Level 2.9L, Chloride Level 95L, Carbon Dioxide Level 33H, Anion Gap 10, Blood Urea Nitrogen 15, Creatinine 0.61, Estimat Glomerular Filtration Rate 145, BUN/Creatinine Ratio 25, Glucose Level 87, Calcium Level 8.8, Corrected Calcium 9.9, Magnesium Level 1.5L, Total Bilirubin 1.7H, Aspartate Amino Transf (AST/SGOT) 83H, Alanine Aminotransferase (ALT/SGPT) 74H, Alkaline Phosphatase 175H, Total Protein 5.9L, Albumin 2.6L Microbiology 10/08/21 Gram Stain - Final, Complete 10/08/21 Sputum Culture - Final, Complete Usual Mixed Leia YEAST 10/02/21 Blood Culture - Final, Complete No growth Assessment/Plan Assessment/Plan Assessment/Plan Central line removal Central line was removed, no complications, patient tolerated procedure well. Taped 2x2's and applying pressure to neck. SANJU PROCTOR DO 10/12/21 1410: Subjective Time Seen by a Provider: 13:45 Subjective/Events-last exam Surgery asked to reassess, regarding possible "knot" in central line and removal. Pt seen and examined, denies neck pain or SOB. States he is doing ok Review of Systems General: No Chills Pulmonary: No Dyspnea, No Cough Cardiovascular: No: Chest Pain, Palpitations Gastrointestinal: No: Nausea, Vomiting, Abdominal Pain Objective Exam General Appearance: No Apparent Distress, WD/WN HEENT: PERRL/EOMI, Moist Mucous Membranes ( dry oral mucosa cracked lips) Respiratory: Lungs Clear, Normal Breath Sounds, No Accessory Muscle Use, No Respiratory Distress Cardiovascular: Regular Rate, Rhythm, No Murmur Assessment/Plan Assessment/Plan Assessment/Plan Central line removal I reviewed the CXR myself, the central line is looped but not in a "knot". I spoke with IM and the line is no longer needed. Central line was removed, no complications, patient tolerated procedure well. Taped 2x2's and applying pressure to neck. Supervisory-Addendum Brief Verification & Attestation Participated in pt care: history, MDM, physical Personally performed: exam, history, MDM, supervision of care Care discussed with: Medical Student Procedures: n/a Verification and Attestation of Medical Student E/M Service A medical student performed and documented this service in my presence. I reviewed and verified all information documented by the medical student and made modifications to such information, when appropriate. I personally performed the physical exam and medical decision making. Sanju Proctor, Oct 12, 2021,14:10 KAMERON LANCASTER MED STUDENT Oct 11, 2021 14:06 SANJU PROCTOR DO Oct 12, 2021 14:10
[2021-10-11] MEDS: clonazePAM 0.5 MG (KlonoPIN) TAB PO PRN (19:58)
[2021-10-12] MEDS: LORazepam 0.5 MG (ATIVAN) TABLET PO PRN ×3 (04:08→21:14)
[2021-10-12] MEDS: FUROSEMIDE 40 MG/4 ML INJ (LASIX) IVP SCH ×2 (06:04→17:24)
[2021-10-12 06:46] LABS: BASOPHILS # (AUTO) 0.1 10^3/uL (0.0-0.1); BASOPHILS % (AUTO) 1 % (0-10); EOSINOPHILS # (AUTO) 0.3 10^3/uL (0.0-0.3); EOSINOPHILS % (AUTO) 3 % (0-10); HEMATOCRIT 44 % (40-54); HEMOGLOBIN 14.5 g/dL (13.3-17.7); LYMPHOCYTES # (AUTO) 1.7 10^3/uL (1.0-4.0); LYMPHOCYTES % (AUTO) 14 % (12-44); MEAN CORPUSCULAR HEMOGLOBIN 28 pg (25-34); MEAN CORPUSCULAR HGB CONC 33 g/dL (32-36); MEAN CORPUSCULAR VOLUME 84 fL (80-99); MEAN PLATELET VOLUME 11.3 fL (9.0-12.2); MONOCYTES # (AUTO) 1.6 10^3/uL (0.0-1.0); MONOCYTES % (AUTO) 13 % (0-12); NEUTROPHILS # (AUTO) 8.3 10^3/uL (1.8-7.8); NEUTROPHILS % (AUTO) 69 % (42-75); PLATELET COUNT 460 10^3/uL (130-400); WHITE BLOOD COUNT 12.1 10^3/uL (4.3-11.0)
[2021-10-12 07:05] LABS: ALBUMIN 2.9 GM/DL (3.2-4.5); BILIRUBIN,TOTAL 1.2 MG/DL (0.1-1.0); CALCIUM 9.2 MG/DL (8.5-10.1); CREATININE SERUM 0.68 MG/DL (0.60-1.30); MAGNESIUM 1.6 MG/DL (1.6-2.4); POTASSIUM 3.2 MMOL/L (3.6-5.0); TOTAL PROTEIN 6.2 GM/DL (6.4-8.2)
--- NOTE | 2021-10-12 08:12 | Speech Therapy Progress Note ---
Therapy Progress Note Per chart review, the patient has been advanced to a regular diet consistency and thin liquids by primary team. At this time, speech pathology will sign off. Please re-consult with concerns. Thank you. FIOR POP Oct 12, 2021 08:12
[2021-10-12] MEDS: AMIODARONE 200 MG (CORDARONE) TAB PO SCH ×2 (08:52→20:21)
[2021-10-12] MEDS: meTOproloL SUCCINATE 50 MG (TOPROL XL) TAB PO SCH (08:52)
[2021-10-12] MEDS: KCL 20 MEQ TAB (K-DUR) PO SCH ×2 (08:52→20:20)
[2021-10-12] MEDS: PANTOPRAZOLE 40 MG (PROTONIX) TAB PO SCH (08:52)
[2021-10-12] MEDS: APIXABAN 5 MG (ELIQUIS) TABLET PO SCH ×2 (08:52→20:21)
[2021-10-12] MEDS: VENlafaxine XR 75 MG (EFFEXOR XR) CAP PO SCH (08:52)
[2021-10-12] MEDS ORDERED: KCL 20 MEQ TAB (K-DUR) PO ONE (10:15)
--- NOTE | 2021-10-12 10:16 | Physical Therapy Daily Note ---
PT Daily Note-Current Subjective Patient agrees to PT. Mental Status Patient Orientation: Normal For Age Transfers SCALE: Activities may be completed with or without assistive devices. 7-Lqgpapxbfz-ibkjidg completes the activity by him/herself with no assistance from a helper. 5-Set-up or Clean-up Assistance-helper sets up or cleans up; patient completes activity. [place] assists only prior to or following the activity. 4-Supervision or Touching Assistance-helper provides verbal cues and/or touching/steadying and/or contact guard assistance as patient completes activity. Assistance may be provided throughout the activity or intermittently. 3-Partial/Moderate Assistance-helper does LESS THAN HALF the effort. [place] lifts, holds or supports trunk or limbs, but provides less than half the effort. 2-Substantial/Maximal Assistance-helper does MORE THAN HALF the effort. [place] lifts or holds trunk or limbs and provides more than half the effort. 4-Ickbwbahe-ketwys does ALL the effort. Patient does none of the effort to complete the activity. Or, the assistance of 2 or more helpers is required for the patient to complete the activity. If activity was not attempted, code reason: 7-Patient Refused. 9-Not Applicable-not attempted and the patient did not perform the activity befo re the current illness, exacerbation or injury. 10-Not Attempted due to Environmental Limitations-(lack of equipment, weather re straints, etc.). 88-Not Attempted due to Medical Conditions or Safety Concerns. Lying to Sitting/Side of Bed(Q: 6 Sit to Stand (QC): 6 Chair/Lrk-lm-Padsc Xfer(QC): 6 Gait Training Does the Patient Walk?: Yes Distance: 550' Walk 10 feet (QC): 6 Walk 50 ft with 2 Turns(QC): 6 Walk 150 ft (QC): 6 Gait Assistive Device: None safe and functional with no deviation Assessment Patient up in recliner with needs met. Patient is currently at independent OF with all gross motor skills. PT to dismiss from services at this time. PT Household Worker Goals Correction Goals PT Household Worker Goals Time Frame: Oct 17, 2021 Roll Left & Right (QC): 6 Sit to Lying (QC): 4 Lying-Sitting on Side/Bed(QC): 4 Sit to Stand (QC): 4 Chair/Lno-vr-Rpckz Xfer(QC): 4 Walk 10 feet (QC): 4 Walk 50ft with 2 Turns (QC): 4 PT Plan Treatment/Plan Treatment Plan: Discontinue PT, goals met Treatment Plan: Bed Mobility, Education, Functional Activity Damien, Functional Strength, Gait, Safety, Therapeutic Exercise, Transfers Treatment Duration: Oct 17, 2021 Frequency: 6 times per week Estimated Hrs Per Day: .25 hour per day Patient and/or Family Agrees t: Yes Time/GCodes Time In: 919 Time Out: 935 Total Billed Treatment Time: 16 Total Billed Treatment 1 visit FA 16 min TAMMY POSADA PT Oct 12, 2021 10:16
--- NOTE | 2021-10-12 11:31 | Progress Note ---
Subjective Subjective/Events-last exam Still feels weak. Having a lot of anxiety. feet and right elbow hurting with walking but ok at rest. hit elbow on tray. Focused Exam Time of Focused Exam: 05:36 Objective Exam Last Set of Vital Signs Vital Signs Date Time Temp Pulse Resp B/P (MAP) Pulse Ox O2 Delivery O2 Flow Rate FiO2 10/12/21 10:28 Room Air 0.00 10/12/21 08:00 36.4 107 16 128/97 91 10/08/21 21:06 40 Capillary Refill : Less Than 3 Seconds I&O Intake and Output 10/11/21 23:59 Intake Total 3370 ml Output Total 7975 ml Balance -4605 ml Intake Oral 3370 ml Output Urine Total 7975 ml # Bowel Movements 2 General: Alert, No Acute Distress Lungs: Clear to Auscultation, Normal Air Movement Heart: Regular Rate, Other (irregularly irregular) Neuro: Normal Speech Psych/Mental Status: Mood NL Results/Procedures Lab Laboratory Tests 10/12/21 05:36: White Blood Count 12.1H, Red Blood Count 5.26, Hemoglobin 14.5, Hematocrit 44, Mean Corpuscular Volume 84, Mean Corpuscular Hemoglobin 28, Mean Corpuscular Hemoglobin Concent 33, Red Cell Distribution Width 16.1H, Platelet Count 460H, Mean Platelet Volume 11.3, Immature Granulocyte % (Auto) 1, Neutrophils (%) (Auto) 69, Lymphocytes (%) (Auto) 14, Monocytes (%) (Auto) 13H, Eosinophils (%) (Auto) 3, Basophils (%) (Auto) 1, Neutrophils # (Auto) 8.3H, Lymphocytes # (Auto) 1.7, Monocytes # (Auto) 1.6H, Eosinophils # (Auto) 0.3, Basophils # (Auto) 0.1, Immature Granulocyte # (Auto) 0.1, Sodium Level 137, Potassium Level 3.2L, Chloride Level 96L, Carbon Dioxide Level 28, Anion Gap 13, Blood Urea Nitrogen 13, Creatinine 0.68, Estimat Glomerular Filtration Rate 128, BUN/Creatinine Ratio 19, Glucose Level 117H, Calcium Level 9.2, Corrected Calcium 10.1, Magnesium Level 1.6, Total Bilirubin 1.2H, Aspartate Amino Transf (AST/SGOT) 121H, Alanine Aminotransferase (ALT/SGPT) 110H, Alkaline Phosphatase 230H, Total Protein 6.2L, Albumin 2.9L Microbiology 10/08/21 Gram Stain - Final, Complete 10/08/21 Sputum Culture - Final, Complete Usual Mixed Leia YEAST 10/02/21 Blood Culture - Final, Complete No growth Assessment/Plan Assessment/Plan (1) Elevated liver enzymes Status: Acute Assessment & Plan: Hepatitis panel negative, possibly related to severe sepsis vs substance use, improving. (2) HTN (hypertension) Status: Chronic (3) HLD (hyperlipidemia) Status: Chronic (4) HFrEF (heart failure with reduced ejection fraction) Status: Chronic Assessment & Plan: EF moderately reduced, stable, appreciate Cardiology recommendations. Receiving IV lasix after pulmonary edema, likely secondary to fluid resuscitation needed for his original FLAKITA and rhabdomyolysis. (5) Chest pain Status: Acute Assessment & Plan: Appreciate Cardiology recommendations, not thought to be ischemic necessarily. Medical management of cardiac issues. (6) NICM (nonischemic cardiomyopathy) Status: Chronic (7) Rhabdomyolysis Status: Acute Qualifiers: Qualified Codes: M62.82 - Rhabdomyolysis (8) Pneumonia Status: Acute Qualifiers: Qualified Codes: J18.9 - Pneumonia, unspecified organism (9) Encephalopathy acute Status: Resolved Assessment & Plan: Secondary to substance use and critical illness. (10) Methamphetamine abuse Status: Chronic Assessment & Plan: Plan for inpatient rehab, has placement on 10/15. (11) Respiratory failure Status: Resolved Assessment & Plan: Requiring intubation on admission, now stable on room air. (12) Paroxysmal atrial fibrillation Status: Chronic (13) Acute kidney injury Status: Resolved Assessment & Plan: Secondary to dehydration and sepsis. (14) Severe sepsis Status: Resolved Assessment & Plan: Secondary to pneumonia. S/p azithromycin. (15) Typical atrial flutter Status: Chronic Assessment & Plan: Appreciate Cardiology recommendations. On apixaban and amiodarone, failed cardioversion. (16) DVT prophylaxis Status: Acute Assessment & Plan: apixaban JB VALDEZ MD Oct 12, 2021 11:31
--- NOTE | 2021-10-12 12:48 | Occupational Ther Daily Note ---
OT Current Status-Daily Note Subjective Pt alert, sitting in recliner. Pt agrees to therapy. No c/o pain. Mental Status/Objective Patient Orientation: Person, Place, Time, [place] Attachments: IV (2) ADL-Treatment Pt agrees to shower. Nrsg in room during shower. Pt sitting on shower bench to complete bathing except when standing with CGA for safety to cleanse buttocks. Pt completed oral care in shower, independently. Pt able to doff socks, assist to don. Min A to don underwear. After session, pt sitting in recliner with call light/phone in reach. Nrsg present in room. Therapy Code Descriptions/Definitions Functional [place] Measure: 0=Not Assessed/NA 4=Minimal Assistance 1=Total Assistance 5=Supervision or Setup 2=Maximal Assistance 6=Modified [place] 3=Moderate Assistance 7=Complete IndependenceSCALE: Activities may be completed with or without assistive devices. 1-Zxcqbibavh-dejnunp completes the activity by him/herself with no assistance from a helper. 5-Set-up or Clean-up Assistance-helper sets up or cleans up; patient completes a ctivity. [place] assists only prior to or following the activity. 4-Supervision or Touching Assistance-helper provides verbal cues and/or touching/steadying and/or contact guard assistance as patient completes activity. Assistance may be provided throughout the activity or intermittently. 3-Partial/Moderate Assistance-helper does LESS THAN HALF the effort. [place] lifts, holds or supports trunk or limbs, but provides less than half the effort. 2-Substantial/Maximal Assistance-helper does MORE THAN HALF the effort. [place] lifts or holds trunk or limbs and provides more than half the effort. 0-Ulvzqjwmy-xkwskv does ALL the effort. Patient does none of the effort to complete the activity. Or, the assistance of 2 or more helpers is required for the patient to complete the activity. If activity was not attempted, code reason: 7-Patient Refused. 9-Not Applicable-not attempted and the patient did not perform the activity before the current illness, exacerbation or injury. 10-Not Attempted due to Environmental Limitations-(lack of equipment, weather restraints, etc.). 88-Not Attempted due to Medical Conditions or Safety Concerns. Oral Hygiene (QC): 6 Shower/Bathe Self (QC): 4 Upper Body Dressing (QC): 5 Lower Body Dressing (QC): 3 On/Off Footwear: 2 OT Chandelier Maker Goals Chandelier Maker Goals Time Frame: Oct 24, 2021 Eating (QC): 6 Oral Hygiene (QC): 6 Toileting Hygiene (QC): 4 Shower/Bathe Self (QC): 4 Upper Body Dressing (QC): 5 Lower Body Dressing (QC): 4 On/Off Footwear (QC): 4 Additional Goals: 1-Demonstrate ADL Tasks, 2-Verbalize Understanding, 3-ImproveStrength/Damien 1=Demonstrate adherence to instructed precautions during ADL tasks. 2=Patient will verbalize/demonstrate understanding of assistive devices/modifications for ADL. 3=Patient will improve strength/tolerance for activity to enable patient to perf orm ADL's. OT Education/Plan Problem List/Assessment Assessment: Decreased Activ Tolerance, Decreased UE Strength, Impaired Self- Care Skills Discharge Recommendations Plan/Recommendations: Continue POC Treatment Plan/Plan of Care Patient would benefit from OT for education, treatment and training to promote independence in ADL's, mobility, safety and/or upper extremity function for ADL's. Plan of Care: ADL Retraining, Functional Mobility, UE Funct Exercise/Act Treatment Duration: Oct 24, 2021 Frequency: 3 times per week (3-5 times per week) Estimated Hrs Per Day: .25 hour per day Agreement: Yes Rehab Potential: Fair Time/GCodes Start Time: 10:19 Stop Time: 10:54 Total Time Billed (hr/min): 35 Billed Treatment Time 1 visit-ADL 2 (35 min) DAKOTAH YANG Oct 12, 2021 12:48
--- NOTE | 2021-10-12 18:06 | Cardiology Progress Note ---
Progress Note-Cardiology Events since last exam Date Seen by Provider: Oct 12, 2021 Time Seen by Provider: 18:01 Events since last exam I am following him due to atrial fibrillation/flutter and cardiomyopathy as well as abnormal electrocardiogram and troponin levels. I received another call since yesterday that the patient had another episode of chest discomfort. When I saw him this evening, he was not complaining of any chest discomfort. He denies dyspnea, palpitations, syncope, or ankle edema. His Locke catheter was discontinued on 10/11 and he has been using a urinal and getting up to go to the bathroom. He states that he has a bed in a drug rehab as of October 15 and he hopes to be discharged from the hospital directly to rehab. Certain portions of this document may have been dictated utilizing voice recognition technology. Inherent to this technology, typographical and grammatical errors may exist. As much as I am diligent to identify and correct these mistakes, some errors may remain in the document. Vitals Last set of Vitals Signs Vital Signs 10/08/21 10/12/21 10/12/21 21:06 10:28 15:40 Temp 36.0 Pulse 83 Resp 18 B/P (MAP) 117/66 Pulse Ox 96 O2 Delivery Room Air O2 Flow Rate 0.00 FiO2 40 Labs Labs Laboratory Tests 10/12/21 05:36 Exam Vital Signs Vital Signs Date Time Temp Pulse Resp B/P (MAP) Pulse Ox O2 Delivery O2 Flow Rate FiO2 10/12/21 15:40 36.0 83 18 117/66 96 Room Air 10/12/21 10:28 0.00 10/08/21 21:06 40 Physical Exam General: Alert. No acute distress. Eye: No xanthelasma. HENT: Normocephalic. Neck: Jugular venous pressure does not appear elevated. Respiratory: Lungs are clear to auscultation. Respirations are non-labored. Breath sounds are equal. Symmetrical chest wall expansion. Cardiovascular: Normal rate. Regular rhythm. No murmur. No gallop. No edema. Gastrointestinal: Soft. Normal bowel sounds. Skin: Warm. Dry. Neurologic: Alert and oriented to person, place, time. Cranial nerves 3-11 grossly intact. Psychiatric: Cooperative. Appropriate mood & affect. Labs Laboratory Tests Test 10/12/21 05:36 Range/Units White Blood Count 12.1 H 4.3-11.0 10^3/uL Red Blood Count 5.26 4.30-5.52 10^6/uL Hemoglobin 14.5 13.3-17.7 g/dL Hematocrit 44 40-54 % Mean Corpuscular Volume 84 80-99 fL Mean Corpuscular Hemoglobin 28 25-34 pg Mean Corpuscular Hemoglobin Concent 33 32-36 g/dL Red Cell Distribution Width 16.1 H 10.0-14.5 % Platelet Count 460 H 130-400 10^3/uL Mean Platelet Volume 11.3 9.0-12.2 fL Immature Granulocyte % (Auto) 1 % Neutrophils (%) (Auto) 69 42-75 % Lymphocytes (%) (Auto) 14 12-44 % Monocytes (%) (Auto) 13 H 0-12 % Eosinophils (%) (Auto) 3 0-10 % Basophils (%) (Auto) 1 0-10 % Neutrophils # (Auto) 8.3 H 1.8-7.8 10^3/uL Lymphocytes # (Auto) 1.7 1.0-4.0 10^3/uL Monocytes # (Auto) 1.6 H 0.0-1.0 10^3/uL Eosinophils # (Auto) 0.3 0.0-0.3 10^3/uL Basophils # (Auto) 0.1 0.0-0.1 10^3/uL Immature Granulocyte # (Auto) 0.1 0.0-0.1 10^3/uL Sodium Level 137 135-145 MMOL/L Potassium Level 3.2 L 3.6-5.0 MMOL/L Chloride Level 96 L 98-107 MMOL/L Carbon Dioxide Level 28 21-32 MMOL/L Anion Gap 13 5-14 MMOL/L Blood Urea Nitrogen 13 7-18 MG/DL Creatinine 0.68 0.60-1.30 MG/DL Estimat Glomerular Filtration Rate 128 BUN/Creatinine Ratio 19 Glucose Level 117 H 70-105 MG/DL Calcium Level 9.2 8.5-10.1 MG/DL Corrected Calcium 10.1 8.5-10.1 MG/DL Magnesium Level 1.6 1.6-2.4 MG/DL Total Bilirubin 1.2 H 0.1-1.0 MG/DL Aspartate Amino Transf (AST/SGOT) 121 H 5-34 U/L Alanine Aminotransferase (ALT/SGPT) 110 H 0-55 U/L Alkaline Phosphatase 230 H 40-136 U/L Total Protein 6.2 L 6.4-8.2 GM/DL Albumin 2.9 L 3.2-4.5 GM/DL Diagnosis/Problems Diagnosis/Problems (1) Chest pain Status: Acute Assessment & Plan: Exact etiology unclear. He had 2 follow-up troponin levels that were undetectable on 10/09-10/10. This chest discomfort has resolved. He has had persistent ischemic changes on his electrocardiogram. I would recommend that we continue the present medical therapy. Even if his chest discomfort is due to coronary artery disease, he is not a good candidate for an invasive cardiac evaluation due to his history of noncompliance and methamphetamine abuse with multiple previous overdoses including this admission. If he can abstain from methamphetamine and other illicit drugs, then we could consider an ischemic evaluation at that time. (2) Typical atrial flutter Assessment & Plan: He had recurrent atrial fibrillation and typical atrial flutter during this hospitalization. He is on apixaban for stroke prophylaxis. Unclear whether or not he was taking this at home. I had started him on intravenous amiodarone infusion and then transitioned this to oral amiodarone. I performed a cardioversion on 10/08 which would convert him to sinus rhythm but within a short period of time, he would revert back to atrial fibrillation/flutter. I will continue the oral amiodarone loading and continue apixaban. The amiodarone will need to be tapered down over the next few weeks. Given his young age, ultimately it would probably be in the patient's best interest to discontinue amiodarone. We may want to consider another attempt at cardioversion prior to discharge or a few weeks after discharge. He is on metoprolol for rate control. I will titrate this upwards as tolerated by his blood pressure. He was on digoxin at home but given his history of drug abuse, this may not be the safest medication for him to take. (3) Cardiomyopathy Status: Chronic Assessment & Plan: A follow-up echocardiogram from this admission shows an ejection fraction of 30-35%. This is similar to the transesophageal echocardiogram from November,. We will continue metoprolol succinate. I will start him on low-dose captopril. He is not a good candidate for a defibrillator due to his drug abuse with frequent overdoses. If he is seriously willing to change his habits, we could consider discharging him with the LifeVest. I will leave this up to the discretion of his regular bonding molder to plans to return tomorrow. (4) Acute on chronic systolic heart failure Status: Acute Assessment & Plan: His chest x-ray from 10/09/2021 was consistent with probable pulmonary edema. We will continue intravenous furosemide twice daily as well as metoprolol succinate and I ordered captopril today. Much of this may have been related to the large volume of IV fluid he received to treat his rhabdomyolysis. We may be able to stop the intravenous furosemide in the next 24-48 hours. He may not need any diuretic when he is discharged. (5) Elevated troponin Status: Acute Assessment & Plan: He had a marginally elevated troponin level at the time of admission. This is in the presence of significant elevation of the creatinine kinase level which was probably due to rhabdomyolysis. I suspect the troponin elevation is related to the elevated creatinine kinase level and DOES NOT represent an acute myocardial infarction. This is most likely noncardiac elevation of the troponin level. As outlined above, I do not see any indication for an invasive or noninvasive ischemic evaluation at this time. Furthermore, due to his methamphetamine abuse and noncompliance with medical therapy, he would not be a good candidate for an invasive cardiac evaluation. (6) Abnormal ECG Status: Acute Assessment & Plan: He did have progressive worsening of T wave inversion in the anterolateral leads but this eventually stabilized. His head CT did not show any acute abnormalities to explain the diffuse T wave changes. As above, due to his medication noncompliance and methamphetamine abuse, he would not be a good candidate for an invasive cardiac evaluation because if he needs to have coronary revascularization, he would need to be compliant with medication. (7) Rhabdomyolysis Status: Acute Assessment & Plan: This seems to have resolved since admission. (8) Acute kidney injury Status: Acute Assessment & Plan: Probably related to the rhabdomyolysis. This also seems to have resolved. (9) Noncompliance with medication regimen Status: Chronic Assessment & Plan: This makes chronic management of his medical conditions extremely difficult. Problem Qualifiers (1) Rhabdomyolysis: Rhabdomyolysis type: non-traumatic Qualified Codes: M62.82 - Rhabdomyolysis DONAVAN RODRIGUEZ JR, MD Oct 12, 2021 18:06
[2021-10-12] MEDS: clonazePAM 0.5 MG (KlonoPIN) TAB PO PRN (20:20)
[2021-10-12] MEDS: CAPTOPRIL 25 MG (CAPOTEN) TAB PO SCH (20:21)
[2021-10-12] MEDS: MELATONIN 3 MG TABLET PO PRN (20:21)
[2021-10-13] MEDS: LORazepam 0.5 MG (ATIVAN) TABLET PO PRN ×4 (01:16→22:07)
[2021-10-13] MEDS: FUROSEMIDE 40 MG/4 ML INJ (LASIX) IVP SCH ×2 (06:01→16:38)
[2021-10-13 06:06] LABS: BASOPHILS # (AUTO) 0.1 10^3/uL (0.0-0.1); BASOPHILS % (AUTO) 1 % (0-10); EOSINOPHILS # (AUTO) 0.3 10^3/uL (0.0-0.3); EOSINOPHILS % (AUTO) 3 % (0-10); HEMATOCRIT 45 % (40-54); HEMOGLOBIN 14.1 g/dL (13.3-17.7); LYMPHOCYTES # (AUTO) 1.9 10^3/uL (1.0-4.0); LYMPHOCYTES % (AUTO) 15 % (12-44); MEAN CORPUSCULAR HEMOGLOBIN 27 pg (25-34); MEAN CORPUSCULAR HGB CONC 32 g/dL (32-36); MEAN CORPUSCULAR VOLUME 86 fL (80-99); MEAN PLATELET VOLUME 10.6 fL (9.0-12.2); MONOCYTES # (AUTO) 1.4 10^3/uL (0.0-1.0); MONOCYTES % (AUTO) 11 % (0-12); NEUTROPHILS # (AUTO) 8.7 10^3/uL (1.8-7.8); NEUTROPHILS % (AUTO) 70 % (42-75); PLATELET COUNT 395 10^3/uL (130-400); WHITE BLOOD COUNT 12.5 10^3/uL (4.3-11.0)
[2021-10-13 06:19] LABS: ALBUMIN 2.9 GM/DL (3.2-4.5)
[2021-10-13 06:20] LABS: POTASSIUM 3.6 MMOL/L (3.6-5.0)
[2021-10-13 06:22] LABS: TOTAL PROTEIN 6.4 GM/DL (6.4-8.2)
[2021-10-13 06:24] LABS: BILIRUBIN,TOTAL 1.1 MG/DL (0.1-1.0)
[2021-10-13 06:26] LABS: CREATININE SERUM 0.71 MG/DL (0.60-1.30)
[2021-10-13 06:29] LABS: MAGNESIUM 1.4 MG/DL (1.6-2.4)
[2021-10-13] MEDS: APIXABAN 5 MG (ELIQUIS) TABLET PO SCH ×2 (08:09→19:39)
[2021-10-13] MEDS: meTOproloL SUCCINATE 50 MG (TOPROL XL) TAB PO SCH (08:09)
[2021-10-13] MEDS: AMIODARONE 200 MG (CORDARONE) TAB PO SCH ×2 (08:09→19:40)
[2021-10-13] MEDS: VENlafaxine XR 75 MG (EFFEXOR XR) CAP PO SCH (08:09)
[2021-10-13] MEDS: CAPTOPRIL 25 MG (CAPOTEN) TAB PO SCH ×2 (08:09→19:39)
[2021-10-13] MEDS: KCL 20 MEQ TAB (K-DUR) PO SCH ×2 (08:09→19:40)
[2021-10-13] MEDS: PANTOPRAZOLE 40 MG (PROTONIX) TAB PO SCH (08:09)
--- NOTE | 2021-10-13 11:08 | Occupational Ther Daily Note ---
OT Current Status-Daily Note Subjective Pt alert, lying in bed. Pt agrees to therapy. No c/o pain. Mental Status/Objective Patient Orientation: Person, Place, Time, Situation Attachments: IV ADL-Treatment After setup, pt able to don/doff sock independently sitting EOB. Pt ambulated with close SBA due to unsteadiness to bathroom then pt stood at sink to complete oral care independently. Pt stated that he had taken a shower by himself this morning after nrsg gathered supplies and covered IV sites. Pt stated that he was able to don/doff underwear by self. Pt is improving with fine motor skills. After session, pt lying in bed with call light/phone in reach. All needs met in room. Therapy Code Descriptions/Definitions Functional [place] Measure: 0=Not Assessed/NA 4=Minimal Assistance 1=Total Assistance 5=Supervision or Setup 2=Maximal Assistance 6=Modified [place] 3=Moderate Assistance 7=Complete IndependenceSCALE: Activities may be completed with or without assistive devices. 4-Hkczdbjyad-fodzdva completes the activity by him/herself with no assistance from a helper. 5-Set-up or Clean-up Assistance-helper sets up or cleans up; patient completes activity. [place] assists only prior to or following the activity. 4-Supervision or Touching Assistance-helper provides verbal cues and/or touc jose/steadying and/or contact guard assistance as patient completes activity. Assistance may be provided throughout the activity or intermittently. 3-Partial/Moderate Assistance-helper does LESS THAN HALF the effort. [place] lifts, holds or supports trunk or limbs, but provides less than half the effort. 2-Substantial/Maximal Assistance-helper does MORE THAN HALF the effort. [place] lifts or holds trunk or limbs and provides more than half the effort. 3-Isjlnackv-ydryta does ALL the effort. Patient does none of the effort to complete the activity. Or, the assistance of 2 or more helpers is required for the patient to complete the activity. If activity was not attempted, code reason: 7-Patient Refused. 9-Not Applicable-not attempted and the patient did not perform the activity before the current illness, exacerbation or injury. 10-Not Attempted due to Environmental Limitations-(lack of equipment, weather restraints, etc.). 88-Not Attempted due to Medical Conditions or Safety Concerns. Oral Hygiene (QC): 6 On/Off Footwear: 5 OT Freight Claim Investigator Goals Freight Claim Investigator Goals Time Frame: Oct 24, 2021 Eating (QC): 6 Oral Hygiene (QC): 6 Toileting Hygiene (QC): 4 Shower/Bathe Self (QC): 4 Upper Body Dressing (QC): 5 Lower Body Dressing (QC): 4 On/Off Footwear (QC): 4 Additional Goals: 1-Demonstrate ADL Tasks, 2-Verbalize Understanding, 3- ImproveStrength/Damien 1=Demonstrate adherence to instructed precautions during ADL tasks. 2=Patient will verbalize/demonstrate understanding of assistive devices/modifications for ADL. 3=Patient will improve strength/tolerance for activity to enable patient to perform ADL's. OT Education/Plan Problem List/Assessment Assessment: Decreased Activ Tolerance, Impaired Self-Care Skills Discharge Recommendations Plan/Recommendations: Continue POC Treatment Plan/Plan of Care Patient would benefit from OT for education, treatment and training to promote independence in ADL's, mobility, safety and/or upper extremity function for ADL's. Plan of Care: ADL Retraining, Functional Mobility, UE Funct Exercise/Act Treatment Duration: Oct 24, 2021 Frequency: 3 times per week (3-5 times per week) Estimated Hrs Per Day: .25 hour per day Agreement: Yes Rehab Potential: Fair Time/GCodes Start Time: 10:22 Stop Time: 10:37 Total Time Billed (hr/min): 15 Billed Treatment Time 1 visit-ADL 1 (15 min) DAKOTAH YANG Oct 13, 2021 11:08
[2021-10-13] MEDS: MELATONIN 3 MG TABLET PO PRN (19:39)
--- NOTE | 2021-10-13 19:42 | Progress Note ---
Subjective Subjective/Events-last exam Pt seen at 1210. States he is feeling fairly well today. Focused Exam Time of Focused Exam: 05:36 Objective Exam Last Set of Vital Signs Vital Signs Date Time Temp Pulse Resp B/P (MAP) Pulse Ox O2 Delivery O2 Flow Rate FiO2 10/13/21 16:00 36.3 76 16 103/73 97 Room Air 10/12/21 10:28 0.00 10/08/21 21:06 40 Capillary Refill : Less Than 3 Seconds I&O Intake and Output 10/13/21 00:00 Intake Total 2665 ml Output Total 6840 ml Balance -4175 ml Intake Oral 2665 ml Output Urine Total 6840 ml # Bowel Movements 2 General: Alert, No Acute Distress Lungs: Clear to Auscultation, Normal Air Movement Heart: Other (irregularly irregular) Neuro: Normal Speech Psych/Mental Status: Mood NL Results/Procedures Lab Laboratory Tests 10/13/21 05:53: White Blood Count 12.5H, Red Blood Count 5.23, Hemoglobin 14.1, Hematocrit 45, Mean Corpuscular Volume 86, Mean Corpuscular Hemoglobin 27, Mean Corpuscular Hemoglobin Concent 32, Red Cell Distribution Width 16.1H, Platelet Count 395, Mean Platelet Volume 10.6, Immature Granulocyte % (Auto) 1, Neutrophils (%) (Auto) 70, Lymphocytes (%) (Auto) 15, Monocytes (%) (Auto) 11, Eosinophils (%) (Auto) 3, Basophils (%) (Auto) 1, Neutrophils # (Auto) 8.7H, Lymphocytes # (Auto) 1.9, Monocytes # (Auto) 1.4H, Eosinophils # (Auto) 0.3, Basophils # (Auto) 0.1, Immature Granulocyte # (Auto) 0.1, Sodium Level 135, Potassium Level 3.6, Chloride Level 96L, Carbon Dioxide Level 29, Anion Gap 10, Blood Urea Nit rogen 13, Creatinine 0.71, Estimat Glomerular Filtration Rate 122, BUN/Creatinine Ratio 18, Glucose Level 116H, Calcium Level 9.0, Corrected Calcium 9.9, Magnesium Level 1.4L, Total Bilirubin 1.1H, Aspartate Amino Transf (AST/SGOT) 108H, Alanine Aminotransferase (ALT/SGPT) 119H, Alkaline Phosphatase 239H, Total Protein 6.4, Albumin 2.9L Microbiology 10/08/21 Gram Stain - Final, Complete 10/08/21 Sputum Culture - Final, Complete Usual Mixed [place]ia YEAST 10/02/21 Blood Culture - Final, Complete No growth Assessment/Plan Assessment/Plan (1) Elevated liver enzymes Status: Acute Assessment & Plan: Hepatitis panel negative, possibly related to severe sepsis vs substance use, improving. (2) HTN (hypertension) Status: Chronic (3) HLD (hyperlipidemia) Status: Chronic (4) HFrEF (heart failure with reduced ejection fraction) Status: Chronic Assessment & Plan: EF moderately reduced, stable, appreciate Cardiology recommendations. Receiving IV lasix after pulmonary edema, likely secondary to fluid resuscitation needed for his original FLAKITA and rhabdomyolysis. (5) Chest pain Status: Acute Assessment & Plan: Appreciate Cardiology recommendations, not thought to be ischemic necessarily. Medical management of cardiac issues. (6) NICM (nonischemic cardiomyopathy) Status: Chronic (7) Rhabdomyolysis Status: Acute Qualifiers: Qualified Codes: M62.82 - Rhabdomyolysis (8) Pneumonia Status: Acute Qualifiers: Qualified Codes: J18.9 - Pneumonia, unspecified organism (9) Encephalopathy acute Status: Resolved Assessment & Plan: Secondary to substance use and critical illness. (10) Methamphetamine abuse Status: Chronic Assessment & Plan: Plan for inpatient rehab, has placement on 10/15. (11) Respiratory failure Status: Resolved Assessment & Plan: Requiring intubation on admission, now stable on room air. (12) Paroxysmal atrial fibrillation Status: Chronic (13) Acute kidney injury Status: Resolved Assessment & Plan: Secondary to dehydration and sepsis. (14) Severe sepsis Status: Resolved Assessment & Plan: Secondary to pneumonia. S/p azithromycin. (15) Typical atrial flutter Status: Chronic Assessment & Plan: Appreciate Cardiology recommendations. On apixaban and amiodarone, failed cardioversion. (16) DVT prophylaxis Status: Acute Assessment & Plan: apixaban JB VALDEZ MD Oct 13, 2021 19:42
[2021-10-14] MEDS: LORazepam 0.5 MG (ATIVAN) TABLET PO PRN ×3 (06:13→23:15)
[2021-10-14] MEDS: FUROSEMIDE 40 MG/4 ML INJ (LASIX) IVP SCH (06:13)
[2021-10-14 08:15] LABS: HEMATOCRIT 49 % (40-54); HEMOGLOBIN 15.8 g/dL (13.3-17.7); MEAN CORPUSCULAR HEMOGLOBIN 27 pg (25-34); MEAN CORPUSCULAR HGB CONC 32 g/dL (32-36); MEAN CORPUSCULAR VOLUME 85 fL (80-99); MEAN PLATELET VOLUME 10.4 fL (9.0-12.2); PLATELET COUNT 493 10^3/uL (130-400); WHITE BLOOD COUNT 14.2 10^3/uL (4.3-11.0)
[2021-10-14 08:37] LABS: ALBUMIN 3.5 GM/DL (3.2-4.5); BILIRUBIN,TOTAL 1.3 MG/DL (0.1-1.0); CALCIUM 9.9 MG/DL (8.5-10.1); CREATININE SERUM 0.82 MG/DL (0.60-1.30); POTASSIUM 4.1 MMOL/L (3.6-5.0); TOTAL PROTEIN 7.5 GM/DL (6.4-8.2)
[2021-10-14] MEDS: CAPTOPRIL 25 MG (CAPOTEN) TAB PO SCH ×2 (09:29→20:29)
[2021-10-14] MEDS: KCL 20 MEQ TAB (K-DUR) PO SCH ×2 (09:29→20:29)
[2021-10-14] MEDS: meTOproloL SUCCINATE 50 MG (TOPROL XL) TAB PO SCH (09:29)
[2021-10-14] MEDS: PANTOPRAZOLE 40 MG (PROTONIX) TAB PO SCH (09:29)
[2021-10-14] MEDS: VENlafaxine XR 75 MG (EFFEXOR XR) CAP PO SCH (09:29)
[2021-10-14] MEDS: APIXABAN 5 MG (ELIQUIS) TABLET PO SCH ×2 (09:29→20:29)
[2021-10-14] MEDS: AMIODARONE 200 MG (CORDARONE) TAB PO SCH ×2 (09:30→20:29)
[2021-10-14] MEDS: FUROSEMIDE 40 MG (LASIX) TAB PO SCH (09:30)
--- NOTE | 2021-10-14 10:10 | Occupational Ther Daily Note ---
OT Current Status-Daily Note Subjective Pt sleeping in bed, woke to name. Pt declines participating in OT session, does allow discussion on his progress. Mental Status/Objective Patient Orientation: Person, Place, Time, Situation Attachments: IV ADL-Treatment Per nrsg and pt, pt is up ad malathi in room and is able to complete own ADLs. Per previous session, pt was able to complete oral care independently and dons footwear and lower body clothing by self. Pt has met all his goals. DC OT at this time. Therapy Code Descriptions/Definitions Functional [place] Measure: 0=Not Assessed/NA 4=Minimal Assistance 1=Total Assistance 5=Supervision or Setup 2=Maximal Assistance 6=Modified [place] 3=Moderate Assistance 7=Complete IndependenceSCALE: Activities may be completed with or without assistive devices. 1-Xgqovarmeq-tzdbrkj completes the activity by him/herself with no assistance from a helper. 5-Set-up or Clean-up Assistance-helper sets up or cleans up; patient completes activity. [place] assists only prior to or following the activity. 4-Supervision or Touching Assistance-helper provides verbal cues and/or touching/steadying and/or contact guard assistance as patient completes activity. Assistance may be provided throughout the activity or intermittently. 3-Partial/Moderate Assistance-helper does LESS THAN HALF the effort. [place] lifts, holds or supports trunk or limbs, but provides less than half the effort. 2-Substantial/Maximal Assistance-helper does MORE THAN HALF the effort. [place] lifts or holds trunk or limbs and provides more than half the effort. 9-Hmvlbfgzs-kddsoa does ALL the effort. Patient does none of the effort to complete the activity. Or, the assistance of 2 or more helpers is required for the patient to complete the activity. If activity was not attempted, code reason: 7-Patient Refused. 9-Not Applicable-not attempted and the patient did not perform the activity before the current illness, exacerbation or injury. 10-Not Attempted due to Environmental Limitations-(lack of equipment, weather restraints, etc.). 88-Not Attempted due to Medical Conditions or Safety Concerns. OT [employer] Developer Goals [place] Goals Time Frame: Oct 24, 2021 Eating (QC): 6 (met) Oral Hygiene (QC): 6 (met) Toileting Hygiene (QC): 4 (met) Shower/Bathe Self (QC): 4 (met) Upper Body Dressing (QC): 5 (met) Lower Body Dressing (QC): 4 (met) On/Off Footwear (QC): 4 (met) Additional Goals: 1-Demonstrate ADL Tasks, 2-Verbalize Understanding, 3-ImproveStrength/Damien 1=Demonstrate adherence to instructed precautions during ADL tasks. 2=Patient will verbalize/demonstrate understanding of assistive devices/modifications for ADL. 3=Patient will improve strength/tolerance for activity to enable patient to perform ADL's. OT Education/Plan Discharge Recommendations Plan/Recommendations: Discharge/Goals Met Treatment Plan/Plan of Care Patient would benefit from OT for education, treatment and training to promote independence in ADL's, mobility, safety and/or upper extremity function for ADL's. Plan of Care: ADL Retraining, Functional Mobility, UE Funct Exercise/Act Treatment Duration: Oct 24, 2021 Frequency: 3 times per week (3-5 times per week) Estimated Hrs Per Day: .25 hour per day Agreement: Yes Rehab Potential: Fair Time/GCodes Start Time: 09:10 Stop Time: 09:18 Total Time Billed (hr/min): 8 Billed Treatment Time 1 visit-FA 1 (8 min) DAKOTAH YANG Oct 14, 2021 10:10
--- NOTE | 2021-10-14 10:14 | Cardiology Progress Note ---
Progress Note-Cardiology Events since last exam Date Seen by Provider: Oct 14, 2021 Time Seen by Provider: 10:13 Events since last exam I am following him due to atrial flutter/fibrillation as well as previously a bnormal electrocardiogram and borderline abnormal troponin levels. The abnormal troponin levels occurred in the setting of methamphetamine overdose. Once he woke up from the overdose and was extubated, he had complained of some chest pain off and on but this has resolved. He denies dyspnea, palpitations, syncope, or ankle edema. He plans to be transferred to inpatient drug rehab tomorrow. He is insistent that he will be good about making his follow-up appointments in regards to his heart. Certain portions of this document may have been dictated utilizing voice recognition technology. Inherent to this technology, typographical and grammatical errors may exist. As much as I am diligent to identify and correct these mistakes, some errors may remain in the document. Vitals Last set of Vitals Signs Vital Signs 10/08/21 10/12/21 10/14/21 21:06 10:28 08:00 Temp 36.0 Pulse 84 Resp 18 B/P (MAP) 108/74 Pulse Ox 97 O2 Delivery Room Air O2 Flow Rate 0.00 FiO2 40 Labs Labs Laboratory Tests 10/14/21 08:10 Exam Vital Signs Vital Signs Date Time Temp Pulse Resp B/P (MAP) Pulse Ox O2 Delivery O2 Flow Rate FiO2 10/14/21 08:00 36.0 84 18 108/74 97 Room Air 10/12/21 10:28 0.00 10/08/21 21:06 40 Physical Exam General: Alert. No acute distress. Eye: No xanthelasma. HENT: Normocephalic. Neck: Jugular venous pressure does not appear elevated. Respiratory: Lungs are clear to auscultation. Respirations are non-labored. Breath sounds are equal. Symmetrical chest wall expansion. Cardiovascular: Normal rate. Regular rhythm. No murmur. No gallop. No edema. Gastrointestinal: Soft. Normal bowel sounds. Skin: Warm. Dry. Neurologic: Alert and oriented to person, place, time. Cranial nerves 3-11 grossly intact. Psychiatric: Cooperative. Appropriate mood & affect. Labs Laboratory Tests Test 10/14/21 08:10 Range/Units White Blood Count 14.2 H 4.3-11.0 10^3/uL Red Blood Count 5.76 H 4.30-5.52 10^6/uL Hemoglobin 15.8 13.3-17.7 g/dL Hematocrit 49 40-54 % Mean Corpuscular Volume 85 80-99 fL Mean Corpuscular Hemoglobin 27 25-34 pg Mean Corpuscular Hemoglobin Concent 32 32-36 g/dL Red Cell Distribution Width 16.3 H 10.0-14.5 % Platelet Count 493 H 130-400 10^3/uL Mean Platelet Volume 10.4 9.0-12.2 fL Sodium Level 134 L 135-145 MMOL/L Potassium Level 4.1 3.6-5.0 MMOL/L Chloride Level 92 L 98-107 MMOL/L Carbon Dioxide Level 28 21-32 MMOL/L Anion Gap 14 5-14 MMOL/L Blood Urea Nitrogen 21 H 7-18 MG/DL Creatinine 0.82 0.60-1.30 MG/DL Estimat Glomerular Filtration Rate 103 BUN/Creatinine Ratio 26 Glucose Level 135 H 70-105 MG/DL Calcium Level 9.9 8.5-10.1 MG/DL Corrected Calcium 10.3 H 8.5-10.1 MG/DL Total Bilirubin 1.3 H 0.1-1.0 MG/DL Aspartate Amino Transf (AST/SGOT) 86 H 5-34 U/L Alanine Aminotransferase (ALT/SGPT) 121 H 0-55 U/L Alkaline Phosphatase 263 H 40-136 U/L Total Protein 7.5 6.4-8.2 GM/DL Albumin 3.5 3.2-4.5 GM/DL Diagnosis/Problems Diagnosis/Problems (1) Typical atrial flutter Status: Chronic Assessment & Plan: He had recurrent atrial fibrillation and typical atrial flutter during this hospitalization. He is on apixaban for stroke prophylaxis. Unclear whether or not he was taking this at home. I had started him on intravenous amiodarone infusion and then transitioned this to oral amiodarone. I performed a cardioversion on 10/08 which would convert him to sinus rhythm but within a short period of time, he would revert back to atrial fibrillation/flutter. I will continue the oral amiodarone loading and continue apixaban. The amiodarone will need to be tapered down over the next few weeks. Given his young age, ultimately it would probably be in the patient's best interest to discontinue amiodarone. I was planning to have him undergo a cardioversion tomorrow before he is discharged to drug rehab but he does not want to have this done at this time. I have asked the community relations specialist to schedule him a follow-up appointment to see me in 1 month and then we can consider a cardioversion at that time. I have decreased his amiodarone to 200 mg twice daily. I stressed to him the importance of following up with us so that we can help manage his atrial fibrillation and heart failure. (2) Acute on chronic systolic heart failure Status: Resolved Assessment & Plan: His breathing is now improved. He is back on oral furosemide. I started him on metoprolol succinate and captopril. He should be discharged with this combination of medications. (3) Cardiomyopathy Assessment & Plan: He has moderate left ventricular systolic dysfunction. He is on metoprolol succinate and captopril. I will consider adding spironolactone after discharge, assuming he follows up with us. He is not a good candidate for prophylactic defibrillator due to recurrent methamphetamine abuse with multiple overdoses. This puts him at very high risk of device infection. (4) Chest pain Status: Acute Assessment & Plan: Exact etiology unclear. He had 2 follow-up troponin levels that were undetectable on 10/09-10/10. This chest discomfort has resolved. He has had persistent ischemic changes on his electrocardiogram. I would recommend that we continue the present medical therapy. Even if his chest discomfort is due to coronary artery disease, he is not a good candidate for an invasive cardiac evaluation due to his history of noncompliance and methamphetamine abuse with multiple previous overdoses including this admission. If he can abstain from methamphetamine and other illicit drugs, then we could consider an ischemic evaluation at that time. (5) Elevated troponin Status: Acute Assessment & Plan: He had a marginally elevated troponin level at the time of admission. This was in the presence of significant elevation of the creatinine kinase level which was probably due to rhabdomyolysis. I suspect the troponin elevation was related to the elevated creatinine kinase level and DOES NOT represent an acute myocardial infarction. This was most likely noncardiac eleva tion of the troponin level. As outlined above, I do not see any indication for an invasive or noninvasive ischemic evaluation at this time due to his methamphetamine abuse and noncompliance with medical therapy. (6) Abnormal ECG Status: Acute Assessment & Plan: He did have progressive worsening of T wave inversion in the anterolateral leads but this eventually stabilized. His head CT did not show any acute abnormalities to explain the diffuse T wave changes. As above, due to his medication noncompliance and methamphetamine abuse, he would not be a good candidate for an invasive cardiac evaluation because if he needs to have coronary revascularization, he would need to be compliant with medication. (7) Rhabdomyolysis Status: Acute Assessment & Plan: This seems to have resolved since admission. (8) Acute kidney injury Status: Resolved Assessment & Plan: Probably related to the rhabdomyolysis. This also seems to have resolved. Resolution Date/Time: 10/12/21 @ 20:34 Problem Qualifiers (1) Rhabdomyolysis: Rhabdomyolysis type: non-traumatic Qualified Codes: M62.82 - Rhabdomyolysis DONAVAN RODRIGUEZ JR, MD Oct 14, 2021 10:14
--- NOTE | 2021-10-14 13:45 | Progress Note ---
Subjective Subjective/Events-last exam Afebrile, feeling well, wondering if he can get IV out. Focused Exam Time of Focused Exam: 05:36 Objective Exam Last Set of Vital Signs Vital Signs Date Time Temp Pulse Resp B/P (MAP) Pulse Ox O2 Delivery O2 Flow Rate FiO2 10/14/21 12:00 36.0 86 16 94/70 93 Room Air 10/14/21 08:00 0.00 10/08/21 21:06 40 Capillary Refill : Less Than 3 Seconds I&O Intake and Output 10/13/21 23:59 Intake Total 3760 ml Output Total 6150 ml Balance -2390 ml Intake Oral 3760 ml Output Urine Total 6150 ml General: Alert, No Acute Distress Lungs: Clear to Auscultation, Normal Air Movement Heart: Other (irregularly irregular) Extremities: No Edema Psych/Mental Status: Mood NL Results/Procedures Lab Laboratory Tests 10/14/21 08:10: White Blood Count 14.2H, Red Blood Count 5.76H, Hemoglobin 15.8, Hematocrit 49, Mean Corpuscular Volume 85, Mean Corpuscular Hemoglobin 27, Mean Corpuscular Hemoglobin Concent 32, Red Cell Distribution Width 16.3H, Platelet Count 493H, Mean Platelet Volume 10.4, Sodium Level 134L, Potassium Level 4.1, Chloride Level 92L, Carbon Dioxide Level 28, Anion Gap 14, Blood Urea Nitrogen 21H, Creatinine 0.82, Estimat Glomerular Filtration Rate 103, BUN/Creatinine Ratio 26, Glucose Level 135H, Calcium Level 9.9, Corrected Calcium 10.3H, Total Bilirubin 1.3H, Aspartate Amino Transf (AST/SGOT) 86H, Alanine Aminotransferase (ALT/SGPT) 121H, Alkaline Phosphatase 263H, Total Protein 7.5, Albumin 3.5 Microbiology 10/08/21 Gram Stain - Final, Complete 10/08/21 Sputum Culture - Final, Complete Usual Mixed Leia YEAST 10/02/21 Blood Culture - Final, Complete No growth Assessment/Plan Assessment/Plan (1) Elevated liver enzymes Status: Acute Assessment & Plan: Hepatitis panel negative, possibly related to severe sepsis vs substance use, improving. (2) HTN (hypertension) Status: Chronic (3) HLD (hyperlipidemia) Status: Chronic (4) HFrEF (heart failure with reduced ejection fraction) Status: Chronic Assessment & Plan: EF moderately reduced, stable, appreciate Cardiology recommendations. Receiving IV lasix after pulmonary edema, likely secondary to fluid resuscitation needed for his original FLAKITA and rhabdomyolysis. 10/14 change IV lasix to PO (5) Chest pain Status: Acute Assessment & Plan: Appreciate Cardiology recommendations, not thought to be ischemic necessarily. Medical management of cardiac issues. (6) NICM (nonischemic cardiomyopathy) Status: Chronic (7) Rhabdomyolysis Status: Acute Qualifiers: Qualified Codes: M62.82 - Rhabdomyolysis (8) Pneumonia Status: Acute Assessment & Plan: Completed course of meropenem Qualifiers: Qualified Codes: J18.9 - Pneumonia, unspecified organism (9) Encephalopathy acute Status: Resolved Assessment & Plan: Secondary to substance use and critical illness. (10) Methamphetamine abuse Status: Chronic Assessment & Plan: Plan for inpatient rehab, has placement on 10/15. (11) Respiratory failure Status: Resolved Assessment & Plan: Requiring intubation on admission, now stable on room air. (12) Paroxysmal atrial fibrillation Status: Chronic (13) Acute kidney injury Status: Resolved Assessment & Plan: Secondary to dehydration and sepsis. (14) Severe sepsis Status: Resolved Assessment & Plan: Secondary to pneumonia. S/p azithromycin. (15) Typical atrial flutter Status: Chronic Assessment & Plan: Appreciate Cardiology recommendations. On apixaban and amiodarone, failed cardioversion. (16) DVT prophylaxis Status: Acute Assessment & Plan: apixaban JB VALDEZ MD Oct 14, 2021 13:45
[2021-10-14] MEDS ORDERED: APIX5TAB PO (13:52)
[2021-10-14] MEDS ORDERED: POTA-169 PO (13:52)
[2021-10-14] MEDS ORDERED: VENL75CA93 PO (13:52)
[2021-10-14] MEDS ORDERED: CAPT25TA3 PO (13:52)
[2021-10-14] MEDS ORDERED: FURO40TA4 PO (13:52)
[2021-10-14] MEDS ORDERED: AMIO200T65 PO (13:52)
[2021-10-14] MEDS ORDERED: METO50TA7 PO (13:52)
[2021-10-14] MEDS: MELATONIN 3 MG TABLET PO PRN (20:30)
[2021-10-15] MEDS: LORazepam 0.5 MG (ATIVAN) TABLET PO PRN (02:11)
[2021-10-15] MEDS: clonazePAM 0.5 MG (KlonoPIN) TAB PO PRN (02:50)
[2021-10-15 06:55] LABS: HEMATOCRIT 47 % (40-54); HEMOGLOBIN 14.8 g/dL (13.3-17.7); MEAN CORPUSCULAR HEMOGLOBIN 27 pg (25-34); MEAN CORPUSCULAR HGB CONC 32 g/dL (32-36); MEAN CORPUSCULAR VOLUME 85 fL (80-99); PLATELET COUNT 494 10^3/uL (130-400); WHITE BLOOD COUNT 14.3 10^3/uL (4.3-11.0)
[2021-10-15 07:10] LABS: ALBUMIN 3.3 GM/DL (3.2-4.5)
[2021-10-15 07:11] LABS: POTASSIUM 4.1 MMOL/L (3.6-5.0)
[2021-10-15 07:12] LABS: CALCIUM 9.6 MG/DL (8.5-10.1)
[2021-10-15 07:13] LABS: TOTAL PROTEIN 7.2 GM/DL (6.4-8.2)
[2021-10-15 07:15] LABS: BILIRUBIN,TOTAL 0.9 MG/DL (0.1-1.0)
[2021-10-15 07:17] LABS: CREATININE SERUM 0.77 MG/DL (0.60-1.30)
--- NOTE | 2021-10-15 08:01 | Discharge Summary ---
Discharge Summary Hospital Course Problems/Diagnosis: (1) Elevated liver enzymes Status: Acute Assessment & Plan: Hepatitis panel negative, possibly related to severe sepsis vs substance use, improving but did not normalize, so needs further work-up outpatient. (2) HTN (hypertension) Status: Chronic (3) HLD (hyperlipidemia) Status: Chronic (4) HFrEF (heart failure with reduced ejection fraction) Status: Chronic Assessment & Plan: EF moderately reduced, stable, appreciate Cardiology recommendations. Receiving IV lasix after pulmonary edema, likely secondary to fluid resuscitation needed for his original FLAKITA and rhabdomyolysis. 10/14 change IV lasix to PO (5) Chest pain Status: Resolved Resolution Date/Time: 10/15/21 @ 14:07 Assessment & Plan: Appreciate Cardiology recommendations, not thought to be ischemic necessarily. Medical management of cardiac issues. (6) NICM (nonischemic cardiomyopathy) Status: Chronic (7) Rhabdomyolysis Status: Resolved Resolution Date/Time: 10/15/21 @ 14:07 Qualifiers: Qualified Codes: M62.82 - Rhabdomyolysis (8) Pneumonia Status: Resolved Resolution Date/Time: 10/15/21 @ 14:07 Assessment & Plan: Completed course of meropenem Qualifiers: Qualified Codes: J18.9 - Pneumonia, unspecified organism (9) Encephalopathy acute Status: Resolved Resolution Date/Time: 10/12/21 @ 20:33 Assessment & Plan: Secondary to substance use and critical illness. (10) Methamphetamine abuse Status: Chronic Assessment & Plan: Plan for inpatient rehab, has placement on 10/15. (11) Respiratory failure Status: Resolved Resolution Date/Time: 10/12/21 @ 20:33 Assessment & Plan: Requiring intubation on admission, now stable on room air. (12) Paroxysmal atrial fibrillation Status: Chronic (13) Acute kidney injury Status: Resolved Resolution Date/Time: 10/12/21 @ 20:34 Assessment & Plan: Secondary to dehydration and sepsis. (14) Severe sepsis Status: Resolved Resolution Date/Time: 10/12/21 @ 20:37 Assessment & Plan: Secondary to pneumonia. S/p azithromycin. (15) Typical atrial flutter Status: Chronic Assessment & Plan: Appreciate Cardiology recommendations. On apixaban and amiodarone, failed cardioversion. Hospital Course Date of Admission: Oct 02, 2021 at 10:49 Admission Diagnosis : Family Physician/Provider: [place] Date of Discharge: 10/15/21 Discharge Diagnosis: See problem list Hospital Course: See problem list Labs and Pending Lab Test: Laboratory Tests 10/14/21 08:10: White Blood Count 14.2H, Red Blood Count 5.76H, Hemoglobin 15.8, Hematocrit 49, Mean Corpuscular Volume 85, Mean Corpuscular Hemoglobin 27, Mean Corpuscular Hemoglobin Concent 32, Red Cell Distribution Width 16.3H, Platelet Count 493H, Mean Platelet Volume 10.4, Sodium Level 134L, Potassium Level 4.1, Chloride Level 92L, Carbon Dioxide Level 28, Anion Gap 14, Blood Urea Nitrogen 21H, Creatinine 0.82, Estimat Glomerular Filtration Rate 103, BUN/Creatinine Ratio 26, Glucose Level 135H, Calcium Level 9.9, Corrected Calcium 10.3H, Total Bilirubin 1.3H, Aspartate Amino Transf (AST/SGOT) 86H, Alanine Aminotransferase (ALT/SGPT) 121H, Alkaline Phosphatase 263H, Total Protein 7.5, Albumin 3.5 10/15/21 05:30: White Blood Count 14.3H, Red Blood Count 5.48, Hemoglobin 14.8, Hematocrit 47, Mean Corpuscular Volume 85, Mean Corpuscular Hemoglobin 27, Mean Corpuscular Hemoglobin Concent 32, Red Cell Distribution Width 16.4H, Platelet Count 494H, Mean Platelet Volume 11.0, Sodium Level 134L, Potassium Level 4.1, Chloride Level 94L, Carbon Dioxide Level 28, Anion Gap 12, Blood Urea Nitrogen 26H, Creatinine 0.77, Estimat Glomerular Filtration Rate 111, BUN/Creatinine Ratio 34, Glucose Level 117H, Calcium Level 9.6, Corrected Calcium 10.2H, Total Bilirubin 0.9, Aspartate Amino Transf (AST/SGOT) 62H, Alanine Aminotransferase (ALT/SGPT) 96H, Alkaline Phosphatase 261H, Total Protein 7.2, Albumin 3.3 Microbiology 10/08/21 Gram Stain - Final, Complete 10/08/21 Sputum Culture - Final, Complete Usual Mixed Leia YEAST 10/02/21 Blood Culture - Final, Complete No growth Home Meds Active Captopril 25 Mg Tablet 12.5 Mg PO BID Amiodarone HCl 200 Mg Tablet 200 Mg PO BID Metoprolol Succinate 50 Mg Tab.er.24h 50 Mg PO DAILY Venlafaxine HCl ER (Venlafaxine HCl) 75 Mg Cap.er.24h 75 Mg PO DAILY Eliquis (Apixaban) 5 Mg Tablet 5 Mg PO BID Furosemide 40 Mg Tablet 40 Mg PO BID Klor-Con M20 (Potassium Chloride) 20 Meq Tab.er.prt 20 Meq PO BID WITH MEALS Reported Digoxin 250 Mcg Tablet 250 Mcg PO DAILY Clonazepam 0.5 Mg Tablet 0.5 Mg PO BID PRN Cardizem Cd (Diltiazem HCl) 360 Mg Cap.er.24h 360 Mg PO DAILY Assessment/Pt DC Instructions Follow up with primary doctor when discharged from [facility] Discharge Diet: Cardiac Diet Activity as Tolerated: Yes Discharge Physical Examination Allergies: Coded Allergies: Penicillins (Verified Allergy, Unknown, 11/09/20) JB VALDEZ MD Oct 15, 2021 08:01
[2021-10-15 09:00] VITALS: BP 99/66
[2021-10-15] MEDS: AMIODARONE 200 MG (CORDARONE) TAB PO SCH (09:36)
[2021-10-15] MEDS: KCL 20 MEQ TAB (K-DUR) PO SCH (09:36)
[2021-10-15] MEDS: CAPTOPRIL 25 MG (CAPOTEN) TAB PO SCH (09:36)
[2021-10-15] MEDS: APIXABAN 5 MG (ELIQUIS) TABLET PO SCH (09:36)
[2021-10-15] MEDS: PANTOPRAZOLE 40 MG (PROTONIX) TAB PO SCH (09:36)
[2021-10-15] MEDS: meTOproloL SUCCINATE 50 MG (TOPROL XL) TAB PO SCH (09:36)
[2021-10-15] MEDS: FUROSEMIDE 40 MG (LASIX) TAB PO SCH (09:36)
[2021-10-15] MEDS: VENlafaxine XR 75 MG (EFFEXOR XR) CAP PO SCH (09:36)
== END 2021-10-15 10:00 | disposition home or self-care (01) | DRG 870 ==
LOC: EDUNIT# 01:10 → ER 01:12 → ICU 10:49 → 4TH 10-10 12:09
PROVIDERS: ADMIT Internal Medicine; ATTEND Family Medicine
PROC: 5A1955Z Respiratory Ventilation, Greater than 96 Consecutive Hours (ICD-10-PCS; principal; 2021-10-02)
PROC: 0BH17EZ Insertion of Endotracheal Airway into Trachea, Via Natural or Artificial Opening (ICD-10-PCS; 2021-10-02)
DX: A41.9 Sepsis, unspecified organism (principal); J18.9 Pneumonia, unspecified organism; J96.00 Acute respiratory failure, unspecified whether with hypoxia or hypercapnia; K72.00 Acute and subacute hepatic failure without coma; I50.23 Acute on chronic systolic (congestive) heart failure; M62.82 Rhabdomyolysis; G93.40 Encephalopathy, unspecified; E87.2 Acidosis; D68.9 Coagulation defect, unspecified; I42.8 Other cardiomyopathies; N17.9 Acute kidney failure, unspecified; I48.3 Typical atrial flutter; E78.00 Pure hypercholesterolemia, unspecified; I11.0 Hypertensive heart disease with heart failure; K21.9 Gastro-esophageal reflux disease without esophagitis; E86.0 Dehydration; R77.8 Other specified abnormalities of plasma proteins; F17.210 Nicotine dependence, cigarettes, uncomplicated; R65.20 Severe sepsis without septic shock; D72.829 Elevated white blood cell count, unspecified; D72.825 Bandemia; F15.90 Other stimulant use, unspecified, uncomplicated; Z91.14 Patient's other noncompliance with medication regimen; I48.0 Paroxysmal atrial fibrillation; E66.9 Obesity, unspecified; Z20.822 Contact with and (suspected) exposure to COVID-19; Z68.26 Body mass index [BMI] 26.0-26.9, adult
CPT/HCPCS: 36415; 70450; 71045; 71046; 80048; 80053; 80074; 80076; 80202; 80306; 80320; 81000; 82248; 82550; 82805; 82947; 83605; 83735; 84100; 84132; 84478; 84484; 85007; 85025; 85027; 85610; 85730; 86141; 86703; 87040; 87070; 87081; 87205; 87636; 93005; 93306; 94002; 94003; 94640; 94760; 94799; 96361; 96365; 96366; 96367; 96375; 99291

== ENCOUNTER 2021-12-21 11:50 | Emergency (ER) | payer OTHER ==
[~2021-12-21] VITALS: Ht 180 cm; Wt 98.0 kg
[~2021-12-21 11:50] MED LIST changes: +CAPT25TA3 PO; +CLON0.5T4 PO; +DIGO250T3 PO; +VENL75CA93 PO
[2021-12-21] MEDS ORDERED: NITROGLYCERIN 0.4 MG SL TABS BTL 25'S SL ONE (12:00)
[2021-12-21] MEDS: NITROGLYCERIN 0.4 MG SL TABS BTL 25'S SL PRN ×2 (12:05→12:12)
--- NOTE | 2021-12-21 12:08 | ED Chest Pain ---
General Chief Complaint: Chest Pain Stated Complaint: CHEST PAIN Source: patient Exam Limitations: no limitations History of Present Illness Date Seen by Provider: Dec 21, 2021 Time Seen by Provider: 11:45 Initial Comments Patient presents the ER by EMS from [facility] where he was trying to flower buncher or picker refills of his medicines that he has been out since last , approximately 4 days. For the past 2 days been having some chest pain and pressure rates about a 6 out of 10 waxing and waning with numbness in his left jaw and left shoulder down the the left upper arm. He has not had a history of heart attack or stent but he is known to Dr. Bejarano and Dr. Hernandez. He has a history of atrial flutter on amiodarone and He is on Lasix, Eliquis, amiodarone and metoprolol. He is not having any nausea vomiting diarrhea constipation fevers chills cough orthopnea or short of breath. He has noticed increased varicose veins in his lower extremities. He does not have a history of cirrhosis or hepatitis. 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 He does still smoke quarter pack of cigarettes a day chews tobacco and has a history of hypertension but no diabetes. He denies a history of hyperlipidemia. Patient had an echocardiogram from 3 months ago demonstrating EF of 30 to 35% with normal diastolic function. Allergies and Home Medications Allergies Coded Allergies: Penicillins (Verified Allergy, Unknown, 11/09/20) Patient Home Medication List Home Medication List Reviewed: Yes Amiodarone HCl (Amiodarone HCl) 200 Mg Tablet, 200 MG PO BID Prescribed by: JB VALDEZ on 10/14/21 1352 Apixaban (Eliquis) 5 Mg Tablet, 5 MG PO BID Prescribed by: JB VALDEZ on 10/14/21 1352 Captopril (Captopril) 25 Mg Tablet, 12.5 MG PO BID Prescribed by: JB VALDEZ on 10/14/21 1352 Furosemide (Furosemide) 40 Mg Tablet, 40 MG PO BID Prescribed by: JB VALDEZ on 10/14/21 1352 Hydroxyzine HCl (Hydroxyzine HCl) 25 Mg Tablet, 25 MG PO HS PRN for INSOMNIA Prescribed by: ALBIN BOJORQUEZ on 12/21/21 1415 Metoprolol Succinate (Metoprolol Succinate) 50 Mg Tab.er.24h, 50 MG PO DAILY Prescribed by: JB VALDEZ on 10/14/21 135 Potassium Chloride (Klor-Con M20) 20 Meq Tab.er.prt, 20 MEQ PO BID WITH MEALS Prescribed by: JB VALDEZ on 10/14/21 135 Venlafaxine HCl (Venlafaxine HCl ER) 75 Mg Cap.er.24h, 75 MG PO DAILY Prescribed by: JB VALDEZ on 10/14/21 135 Review of Systems Review of Systems Constitutional: No chills, No fever, No malaise EENTM: No Blurred Vision, No Double Vision Respiratory: Denies Cough, Denies Orthopnea Cardiovascular: See HPI, Chest Pain; Denies Edema; Irregular Heart Rate Gastrointestinal: Denies Abdominal Pain, Denies Constipated, Denies Diarrhea, Denies Nausea Genitourinary: Denies Burning, Denies Drainage Musculoskeletal: No back pain, No joint pain Skin: No pruritus, No rash Psychiatric/Neurological: Denies Headache, Denies Numbness All Other Systems Reviewed Negative Unless Noted: Yes Past Nacuynp-Fbqgzn-Vbkdlu Hx Patient Social History Tobacco Use?: Yes Tobacco type used: Cigarettes (10/13 ppd) Smoking Status: Current Everyday Smoker Smokeless Tobacco Frequency: Current Everyday User Substance use?: No (History of marijuana and methamphetamines) Substance type: Methamphetamine, Marijuana Alcohol Use?: No Alcohol type: Beer (Quit drinking 4 months ago) Immunizations Up To Date Tetanus Booster (TDap): Unknown Past Medical History Surgery/Hospitalization HX: Appendix Surgeries: Yes (HERNIA REPAIR) Abdominal, Appendectomy Respiratory: No Cardiac: Yes (CHF 30-35% EF) Atrial Fibrillation, Cardiomyopathy, High Cholesterol, Hypertension Neurological: No Genitourinary: No Gastrointestinal: Yes Gastroesophageal Reflux Musculoskeletal: No Endocrine: Yes (OBESITY) HEENT: No Cancer: No Psychosocial: Yes (SUBSTANCE ABUSE) Integumentary: Yes (TATTOOS) Blood Disorders: No Family Medical History No Pertinent Family Hx SOCIAL HISTORY: -ETOH--REGULAR USE -DRUGS--METHAMPHETAMINES -SMOKES 1 PPD PAST SURGICAL HISTORY: -APPENDECTOMY -HERNIA REPAIR -CARDIOVERSIONS ECHOCARDIOGRAM 11/13/20--EF 30-35%, NO REGIONAL WALL MOTION ABNORMALITIES. EXTREME NON-COMPLIANCE IN ALL ASPECTS OF CARE Physical Exam Vital Signs Vital Signs - First Documented 12/21/21 11:50 Temp 37.0 Pulse 83 Resp 18 B/P (MAP) 152/103 (119) Pulse Ox 98 O2 Delivery Room Air Capillary Refill : Height, Weight, BMI Height: '" Weight: lbs. oz. kg; 26.14 BMI Method: General Appearance: Anxious, Mild Distress HEENT: PERRL/EOMI, Pharynx Normal, Moist Mucous Membranes Neck: Full Range of Motion, Normal Inspection Respiratory: Chest Non Tender, Lungs Clear, Normal Breath Sounds, No Accessory Muscle Use, No Respiratory Distress Cardiovascular: Regular Rate, Rhythm, No Edema, Normal Peripheral Pulses Gastrointestinal: Normal Bowel Sounds, Non Tender, Soft Extremity: Normal Capillary Refill, Normal Inspection, Pedal Edema Neurologic/Psychiatric: Alert, Oriented x3 Skin: Normal Color, Warm/Dry (Trace bipedal) Procedures/Interventions Date of ETT Placement: Oct 02, 2021 Time of ETT Placement: 142 Progress/Results/Core Measures Results/Orders Lab Results Laboratory Tests Test 12/21/21 11:57 12/21/21 14:13 Range/Units White Blood Count 13.3 H 4.3-11.0 10^3/uL Red Blood Count 5.18 4.30-5.52 10^6/uL Hemoglobin 15.1 13.3-17.7 g/dL Hematocrit 47 40-54 % Mean Corpuscular Volume 91 80-99 fL Mean Corpuscular Hemoglobin 29 25-34 pg Mean Corpuscular Hemoglobin Concent 32 32-36 g/dL Red Cell Distribution Width 17.2 H 10.0-14.5 % Platelet Count 203 130-400 10^3/uL Mean Platelet Volume 11.1 9.0-12.2 fL Immature Granulocyte % (Auto) 1 % Neutrophils (%) (Auto) 77 H 42-75 % Lymphocytes (%) (Auto) 11 L 12-44 % Monocytes (%) (Auto) 8 0-12 % Eosinophils (%) (Auto) 3 0-10 % Basophils (%) (Auto) 0 0-10 % Neutrophils # (Auto) 10.3 H 1.8-7.8 10^3/uL Lymphocytes # (Auto) 1.5 1.0-4.0 10^3/uL Monocytes # (Auto) 1.1 H 0.0-1.0 10^3/uL Eosinophils # (Auto) 0.3 0.0-0.3 10^3/uL Basophils # (Auto) 0.0 0.0-0.1 10^3/uL Immature Granulocyte # (Auto) 0.1 0.0-0.1 10^3/uL Prothrombin Time 16.0 H 12.2-14.7 SEC INR Comment 1.2 0.8-1.4 Activated Partial Thromboplast Time 33 24-35 SEC D-Dimer 0.70 H 0.00-0.49 UG/ML Sodium Level 137 135-145 MMOL/L Potassium Level 4.4 3.6-5.0 MMOL/L Chloride Level 107 98-107 MMOL/L Carbon Dioxide Level 18 L 21-32 MMOL/L Anion Gap 12 5-14 MMOL/L Blood Urea Nitrogen 17 7-18 MG/DL Creatinine 0.92 0.60-1.30 MG/DL Estimat Glomerular Filtration Rate 107 BUN/Creatinine Ratio 18 Glucose Level 108 H 70-105 MG/DL Calcium Level 9.8 8.5-10.1 MG/DL Corrected Calcium 9.8 8.5-10.1 MG/DL Magnesium Level 1.9 1.6-2.4 MG/DL Total Bilirubin 1.1 H 0.1-1.0 MG/DL Aspartate Amino Transf (AST/SGOT) 27 5-34 U/L Alanine Aminotransferase (ALT/SGPT) 22 0-55 U/L Alkaline Phosphatase 140 H 40-136 U/L Myoglobin 72.3 10.0-92.0 NG/ML Troponin I < 0.028 < 0.028 <0.028 NG/ML B-Type Natriuretic Peptide 1307.2 H <100.0 PG/ML Total Protein 7.2 6.4-8.2 GM/DL Albumin 4.0 3.2-4.5 GM/DL My Orders Orders - ALBIN BOJORQUEZ Cbc With Automated Diff (12/21/21 12:00) Magnesium (12/21/21 12:00) Chest 1 View, Ap/Pa Only (12/21/21 12:00) Ekg Tracing (12/21/21 12:00) Comprehensive Metabolic Panel (12/21/21 12:00) Myoglobin Serum (12/21/21 12:00) Protime With Inr (12/21/21 12:00) Partial Thromboplastin Time (12/21/21 12:00) O2 (12/21/21 12:00) Monitor-Rhythm Ecg Trace Only (12/21/21 12:00) Ed Iv/Invasive Line Start (12/21/21 12:00) Bnp Patricia (12/21/21 12:00) Fibrin Degradation Products (12/21/21 12:00) Troponin I [place] (12/21/21 12:00) Nitroglycerin 0.4 Mg Btl 25's (Nitrostat (12/21/21 12:00) Nitroglycerin 0.4 Mg Btl 25's (Nitrostat (12/21/21 12:00) Acetaminophen Tablet (Tylenol Tablet) (12/21/21 12:15) Ct Angio Chest W (12/21/21 12:54) Iohexol Injection (Omnipaque 350 Mg/Ml 1 (12/21/21 13:15) Received Contrast (Hold Metformin- Contr (12/21/21 13:15) Ns (Ivpb) (Sodium Chloride 0.9% Ivpb Bag (12/21/21 13:15) Sodium Chloride Flush (Catheter Flush Sy (12/21/21 13:15) Furosemide Injection (Lasix Injection) (12/21/21 14:15) Troponin I [place] (12/21/21 14:15) Medications Given in ED Current Medications Medications Dose Ordered Sig/[place] Route Start Time Stop Time Status Last Admin Dose Admin Acetaminophen 1,000 mg ONCE ONCE PO 12/21/21 12:15 12/21/21 12:16 DC 12/21/21 12:18 1,000 MG Furosemide 20 mg ONCE ONCE IVP 12/21/21 14:15 12/21/21 14:17 DC 12/21/21 14:39 20 MG Iohexol 100 ml ONCE ONCE IV 12/21/21 13:15 12/21/21 13:16 DC 12/21/21 13:35 82 ML Nitroglycerin 0.4 mg UD PRN SL 12/21/21 12:00 12/21/21 15:35 DC 12/21/21 12:12 0.4 MG Sodium Chloride 10 ml NEEDED PRN IV 12/21/21 13:15 12/21/21 15:35 DC 12/21/21 13:35 10 ML Sodium Chloride 100 ml ONCE ONCE IV 12/21/21 13:15 12/21/21 13:16 DC 12/21/21 13:35 100 ML Vital Signs/I&O 12/21/21 12/21/21 11:50 15:35 Temp 37.0 Pulse 83 72 Resp 18 18 B/P (MAP) 152/103 (119) 115/94 Pulse Ox 98 98 O2 Delivery Room Air Room Air Progress Progress Note #1: Time: 12:15 Progress Note Patient has a fairly significant history of heart failure which probably explain s why he is having the swelling and increased vascular bulging in his legs being off of his Lasix. We will get some labs. We gave him 2 doses of nitroglycerin which brought his pain down from a [address] to a 4. His blood pressure is holding around 122/89 so will just give him some Tylenol for his headache and continue our work-up. The EKG has some worrisome appearance with diffuse ischemic changes and almost all leads however when compared to September's EKG when he was in the hospital for a idiopathic ischemic event it looks exactly the same. He already received aspirin en route by EMS. Progress Note #2: Time: 14:08 Progress Note Discussed the case with Dr. Cartagena, cardiology who is familiar with the patient. He recommends if a repeat troponin is okay and he continues to be pain-free can follow-up with Dr. Bejarano in the clinic and he should resume his medications. We will give the patient a dose of 20 mg Lasix IV now. Delta troponin now. He complains of not being able to sleep and may be having some withdrawal symptoms. He has an appointment a week with a retail seasonal specialist . We are going to give him a prescription for clonidine 0.1 mg nightly x1 week to trial. Initial ECG Impression Date: Dec 21, 2021 Initial ECG Impression Time: 11:53 Initial ECG Rate: 86 Initial ECG Rhythm: A Fib/Flutter Initial ECG Intervals: Normal Initial ECG Impression: Nonspecific Changes Initial ECG Comparisson: Unchanged Comment Atrial flutter without new changes compared to September. Diffuse ST depressions seen in inferior and lateral leads. Diagnostic Imaging Diagonstic Imaging: Xray Plain Films/CT/US/NM/MRI: chest Comments [facility]. [place], [place] NAME: PAL VALERIO [facility] REC#: [id number] PT STATUS: REG ER : 1980 PHYSICIAN: ALBIN BOJORQUEZ MD ADMIT DATE: 12/21/21/ER Draft Date of Exam:12/21/21 CHEST 1 VIEW, AP/PA ONLY INDICATION: Chest pain Single AP view of the chest is obtained with comparison made to study of 10/11/2021. There is air trapping in the upper lobes. Overall heart size and pulmonary vascularity are within normal limits. There is no consolidation, pneumothorax or definite pleural fluid. IMPRESSION: No definite acute abnormality is identified. Dictated on workstation # [id number] Dict: 12/21/21 1252 Trans: 12/21/21 1257 [facility] [id number] Interpreted by: LOLA COOK MD Electronically signed by: Reviewed: Reviewed by Me Diagonstic Imaging: CT Plain Films/CT/US/NM/MRI: chest [facility] [place] [place] NAME: PAL VALERIO [facility] REC#: [id number] PT STATUS: REG ER : 1980 PHYSICIAN: ALBIN BOJORQUEZ MD ADMIT DATE: 12/21/21/ER Draft Date of Exam:12/21/21 CT ANGIO CHEST W PROCEDURE: CT angiography of the chest with contrast. TECHNIQUE: Multiple contiguous axial images were obtained through the chest after uneventful bolus administration of intravenous contrast. 3D reconstructed CTA MIP acquisitions were also performed. Auto Exposure Controls were utilized during the CT exam to meet ALARA standards for radiation dose reduction. INDICATION: 2-3 days of chest pain. FINDINGS: The pulmonary arterial branches are well opacified and widely patent. No filling defect. No PE. The thoracic aorta is nonaneurysmal. There is no pleural or pericardial effusion. There are some old healed rib deformities. No acute appearing chest wall pathology. No findings of pneumonia or edema. No suspicious nodule or dominant lung mass. The visualized upper abdomen shows no acute appearing abnormality. IMPRESSION: Negative for PE or aortic aneurysm. Clear lungs with no effusion, pneumothorax, or other acute abnormalities. Dictated on workstation # [id number] Dict: 12/21/21 1335 Trans: 12/21/21 1340 [id number] Interpreted by: LOLA VARGAS Electronically signed by: Reviewed: Reviewed by Me Departure Impression Primary Impression: Chest pain Qualified Codes: R07.9 - Chest pain, unspecified Additional Impression: Insomnia Qualified Codes: G47.00 - Insomnia, unspecified Disposition: 01 HOME, SELF-CARE Condition: Stable Departure-Patient Inst. Decision time for Depature: 15:23 [facility]: [facility] [place] Primary Care Physician Patient Instructions: Chest Pain, Insomnia (DC) Add. Discharge Instructions: Resume taking your medications as they are prescribed. You can trial a dose of hydroxyzine 25 mg at night to help with sleep. Take it about half an hour prior to bedtime. Take your Lasix in the morning and the second dose in the early afternoon usually 6 hours after the first dose so that you not up all night urinating. Call Dr. Bejarano's office and make a follow-up appointment this week. All discharge instructions reviewed with patient and/or family. Voiced understanding. Scripts Hydroxyzine HCl (Hydroxyzine HCl) 25 Mg Tablet 25 MG PO HS PRN for INSOMNIA, #7 TAB 0 Refills Prov: ALBIN BOJORQUEZ 12/21/21 Copy Copies To 1: S[facility]ARANO [facility] ALBIN BOJORQUEZ Dec 21, 2021 12:07
[2021-12-21] MEDS ORDERED: ACETAMINOPHEN 500 MG TAB (TYLENOL) PO ONE (12:15)
[2021-12-21 12:16] LABS: BASOPHILS % (AUTO) 0 % (0-10); EOSINOPHILS # (AUTO) 0.3 10^3/uL (0.0-0.3); EOSINOPHILS % (AUTO) 3 % (0-10); HEMATOCRIT 47 % (40-54); HEMOGLOBIN 15.1 g/dL (13.3-17.7); LYMPHOCYTES # (AUTO) 1.5 10^3/uL (1.0-4.0); LYMPHOCYTES % (AUTO) 11 % (12-44); MEAN CORPUSCULAR HEMOGLOBIN 29 pg (25-34); MEAN CORPUSCULAR HGB CONC 32 g/dL (32-36); MEAN CORPUSCULAR VOLUME 91 fL (80-99); MEAN PLATELET VOLUME 11.1 fL (9.0-12.2); MONOCYTES # (AUTO) 1.1 10^3/uL (0.0-1.0); MONOCYTES % (AUTO) 8 % (0-12); NEUTROPHILS # (AUTO) 10.3 10^3/uL (1.8-7.8); NEUTROPHILS % (AUTO) 77 % (42-75); PLATELET COUNT 203 10^3/uL (130-400); WHITE BLOOD COUNT 13.3 10^3/uL (4.3-11.0)
[2021-12-21 12:22] LABS: INR 1.2 (0.8-1.4)
[2021-12-21 12:23] LABS: POTASSIUM 4.4 MMOL/L (3.6-5.0)
[2021-12-21 12:24] LABS: CALCIUM 9.8 MG/DL (8.5-10.1)
[2021-12-21 12:25] LABS: TOTAL PROTEIN 7.2 GM/DL (6.4-8.2)
[2021-12-21 12:27] LABS: BILIRUBIN,TOTAL 1.1 MG/DL (0.1-1.0)
[2021-12-21 12:29] LABS: CREATININE SERUM 0.92 MG/DL (0.60-1.30)
[2021-12-21 12:32] LABS: MAGNESIUM 1.9 MG/DL (1.6-2.4)
--- NOTE | 2021-12-21 12:58 | Diagnostic Imaging Report ---
INDICATION: Chest pain Single AP view of the chest is obtained with comparison made to study of 10/11/2021. There is air trapping in the upper lobes. Overall heart size and pulmonary vascularity are within normal limits. There is no consolidation, pneumothorax or definite pleural fluid. IMPRESSION: No definite acute abnormality is identified. Dictated by: Dictated on workstation # [id number]
[2021-12-21] MEDS ORDERED: NS 100 ML (IVPB) BAG IV ONE (13:15)
[2021-12-21] MEDS ORDERED: IOHEXOL 350 MG/ML 100 ML (OMNIPAQUE 350) VIAL IV ONE (13:15)
[2021-12-21] MEDS ORDERED: CATHETER FLUSH 10 ML SYR IV PRN (13:15)
[2021-12-21] MEDS ORDERED: HOLD METFORMIN - RECEIVED CONTRAST 20 ML VIAL IV SCH (13:15)
--- NOTE | 2021-12-21 13:41 | Diagnostic Imaging Report ---
PROCEDURE: CT angiography of the chest with contrast. TECHNIQUE: Multiple contiguous axial images were obtained through the chest after uneventful bolus administration of intravenous contrast. 3D reconstructed CTA MIP acquisitions were also performed. Auto Exposure Controls were utilized during the CT exam to meet ALARA standards for radiation dose reduction. INDICATION: 2-3 days of chest pain. FINDINGS: The pulmonary arterial branches are well opacified and widely patent. No filling defect. No PE. The thoracic aorta is nonaneurysmal. There is no pleural or pericardial effusion. There are some old healed rib deformities. No acute appearing chest wall pathology. No findings of pneumonia or edema. No suspicious nodule or dominant lung mass. The visualized upper abdomen shows no acute appearing abnormality. IMPRESSION: Negative for PE or aortic aneurysm. Clear lungs with no effusion, pneumothorax, or other acute abnormalities. Dictated by: Dictated on workstation # [id number]
[2021-12-21] MEDS ORDERED: FUROSEMIDE 40 MG/4 ML INJ (LASIX) IVP ONE (14:15)
[2021-12-21] MEDS ORDERED: HYDR-700 PO (14:15)
[2021-12-21 15:35] VITALS: BP 115/94
== END 2021-12-21 15:35 | disposition home or self-care (01) ==
LOC: EDUNIT# 11:52 → ER 11:52
DX: R07.9 Chest pain, unspecified (principal); G47.00 Insomnia, unspecified; I48.92 Unspecified atrial flutter; F17.210 Nicotine dependence, cigarettes, uncomplicated; Z79.01 Long term (current) use of anticoagulants
CPT/HCPCS: 36415; 71045; 71275; 80053; 83735; 83874; 83880; 84484; 85025; 85379; 85610; 85730; 93005; 93041

== ENCOUNTER 2022-03-26 11:40 | Emergency (ER) | payer MEDICAID, OTHER ==
[~2022-03-26] VITALS: Ht 180 cm; Wt 110.0 kg
[~2022-03-26 11:40] MED LIST changes: +HYDR-700 PO
--- NOTE | 2022-03-26 13:56 | Diagnostic Imaging Report ---
INDICATION: Cough, fatigue and dyspnea. TECHNIQUE: PA and lateral views of the chest are obtained with comparison made to study of 10/11/2021. FINDINGS: Overall heart size and pulmonary vascularity are within normal limits. Interstitial markings have shown mild interval increase. No pneumothorax, consolidation or pleural fluid is identified. There appears to be healed fracture involving the posterolateral aspect of the right eighth rib. There is no definite pleural fluid. IMPRESSION: Prominent interstitial markings may reflect edema or pneumonitis with possible component of background fibrosis as well. Otherwise, there is no evidence of consolidation, pneumothorax or pleural fluid. Dictated by: Dictated on workstation # [id number]
[2022-03-26 14:23] LABS: BASOPHILS # (AUTO) 0.1 10^3/uL (0.0-0.1); BASOPHILS % (AUTO) 0 % (0-10); EOSINOPHILS # (AUTO) 0.5 10^3/uL (0.0-0.3); EOSINOPHILS % (AUTO) 4 % (0-10); HEMATOCRIT 45 % (40-54); HEMOGLOBIN 14.3 g/dL (13.3-17.7); LYMPHOCYTES # (AUTO) 1.3 10^3/uL (1.0-4.0); LYMPHOCYTES % (AUTO) 12 % (12-44); MEAN CORPUSCULAR HEMOGLOBIN 29 pg (25-34); MEAN CORPUSCULAR HGB CONC 32 g/dL (32-36); MEAN CORPUSCULAR VOLUME 90 fL (80-99); MEAN PLATELET VOLUME 10.9 fL (9.0-12.2); MONOCYTES # (AUTO) 0.9 10^3/uL (0.0-1.0); MONOCYTES % (AUTO) 8 % (0-12); NEUTROPHILS # (AUTO) 8.3 10^3/uL (1.8-7.8); NEUTROPHILS % (AUTO) 75 % (42-75); PLATELET COUNT 255 10^3/uL (130-400); WHITE BLOOD COUNT 11.1 10^3/uL (4.3-11.0)
[2022-03-26 14:33] LABS: ALBUMIN 3.9 GM/DL (3.2-4.5)
[2022-03-26 14:34] LABS: CALCIUM 9.4 MG/DL (8.5-10.1)
[2022-03-26 14:35] LABS: TOTAL PROTEIN 7.2 GM/DL (6.4-8.2)
[2022-03-26 14:37] LABS: BILIRUBIN,TOTAL 1.5 MG/DL (0.1-1.0)
[2022-03-26 14:39] LABS: CREATININE SERUM 0.98 MG/DL (0.60-1.30)
--- NOTE | 2022-03-26 14:40 | ED Cough/URI ---
General Chief Complaint: Respiratory Problems Stated Complaint: COUGH - SOA - VOMITING - WEAKNESS Nursing Triage Note: Pt here with cough, fatigue and soa. States he has had these s/s for 2 months. Pt denies fever. Pt denies being tested for covid and has not been vaccinated for covid. Reports the s/s have worsened over the last 2 days. Pt states he has been clean and sober recently but lapsed with meth 2 days ago. Source: patient Exam Limitations: no limitations (NILTON SANCHEZ) History of Present Illness Date Seen by Provider: Mar 26, 2022 Time Seen by Provider: 14:33 Initial Comments This is a 41 year old male with a history of a-fib (rate controlled) that presents for evaluation of cough, fatigue, vomiting and shortness of breath. He states he has had symptoms for 2-3 months, but feels that they are worse since smoking methamphetamine 2 days ago. He states he lives as a sober living house but has been compliant with his medications. He denies fever, chills, bloody emesis, extremity swelling or other symptoms. Timing/Duration: constant Severity/Quality: moderate Prior Episodes/Possible Cause: frequent episodes (NILTON SANCHEZ) Allergies and Home Medications Allergies Coded Allergies: Penicillins (Verified Allergy, Unknown, 11/09/20) Patient Home Medication List Home Medication List Reviewed: Yes (NILTON SANCHEZ) Acetaminophen (Acetaminophen ER) 650 Mg Tablet.er, 650 MG PO TID PRN for PAIN- MILD (1-4) Prescribed by: Chintan Sanchez on 03/26/22 1451 Albuterol Sulfate (Proair Hfa) 1 Puff Puff, 2 PUFF IH Q4H Prescribed by: Chintan Sanchez on 03/26/22 1451 Amiodarone HCl (Amiodarone HCl) 200 Mg Tablet, 200 MG PO BID Prescribed by: JB VALDEZ on 10/14/21 135 Apixaban (Eliquis) 5 Mg Tablet, 5 MG PO BID Prescribed by: JB VALDEZ on 10/14/21 1352 Captopril (Captopril) 25 Mg Tablet, 12.5 MG PO BID Prescribed by: JB VALDEZ on 10/14/21 1352 Furosemide (Furosemide) 40 Mg Tablet, 40 MG PO BID Prescribed by: JB VALDEZ on 10/14/21 1352 Hydroxyzine HCl (Hydroxyzine HCl) 25 Mg Tablet, 25 MG PO HS PRN for INSOMNIA Prescribed by: ALBIN BOJORQUEZ on 12/21/21 1415 Metoprolol Succinate (Metoprolol Succinate) 50 Mg Tab.er.24h, 50 MG PO DAILY Prescribed by: JB VALDEZ on 10/14/21 1352 Potassium Chloride (Klor-Con M20) 20 Meq Tab.er.prt, 20 MEQ PO BID WITH MEALS Prescribed by: JB VALDEZ on 10/14/21 1352 Promethazine/Dextromethorphan (Promethazine-Dm Syrup) 6.25 Mg-15 Mg/5 Ml Syrup, 5 ML PO Q6H PRN for COUGH Prescribed by: Chintan Sanchez on 03/26/22 1451 Venlafaxine HCl (Venlafaxine HCl ER) 75 Mg Cap.er.24h, 75 MG PO DAILY Prescribed by: JB VALDEZ on 10/14/21 1352 Review of Systems Review of Systems Constitutional: malaise EENTM: nose congestion Respiratory: cough, short of breath Gastrointestinal: no symptoms reported, vomiting Genitourinary: no symptoms reported Musculoskeletal: no symptoms reported Skin: no symptoms reported Hematologic/Lymphatic: No Symptoms Reported (NILTON SANCHEZ) Past Dyjzblj-Adigxq-Qxzrls Hx Patient Social History Tobacco Use?: Yes Smoking Status: Current Everyday Smoker Substance use?: Yes Substance type: Methamphetamine Alcohol Use?: Yes Alcohol type: Beer Alcohol Frequency: Couple times a week (NILTON SANCHEZ) Immunizations Up To Date Tetanus Booster (TDap): Unknown (NILTON SANCHEZ) Past Medical History Surgery/Hospitalization HX: Appendix, [facility] A-FIB/FLUTTER Surgeries: Yes (HERNIA REPAIR) Abdominal, Appendectomy Respiratory: No Cardiac: Yes (CHF 30-35% EF) Atrial Fibrillation, Cardiomyopathy, High Cholesterol, Hypertension Neurological: No Genitourinary: No Gastrointestinal: Yes Gastroesophageal Reflux Musculoskeletal: No Endocrine: Yes (OBESITY) HEENT: No Cancer: No Psychosocial: Yes (SUBSTANCE ABUSE) Integumentary: Yes (TATTOOS) Blood Disorders: No (NILTON SANCHEZ) Family Medical History No Pertinent Family Hx SOCIAL HISTORY: -ETOH--REGULAR USE -DRUGS--METHAMPHETAMINES -SMOKES 1 PPD PAST SURGICAL HISTORY: -APPENDECTOMY -HERNIA REPAIR -CARDIOVERSIONS ECHOCARDIOGRAM 11/13/20--EF 30-35%, NO REGIONAL WALL MOTION ABNORMALITIES. EXTREME NON-COMPLIANCE IN ALL ASPECTS OF CARE (NILTON SANCHEZ) Physical Exam Vital Signs - First Documented 03/26/22 12:06 Temp 36.2 Pulse 80 Resp 18 B/P (MAP) 123/83 (96) Pulse Ox 97 O2 Delivery Room Air (SILVIA MACHADO MD) Capillary Refill : Less Than 3 Seconds (NILTON SANCHEZ) Height: '" Weight: lbs. oz. kg; 33.00 BMI Method: General Appearance: WD/WN, no apparent distress Eyes: Bilateral Eye Normal Inspection, Bilateral Eye PERRL, Bilateral Eye EOMI HEENT: PERRL/EOMI, normal ENT inspection, TMs normal, pharynx normal Neck: non-tender, full range of motion, supple Respiratory: chest non-tender, lungs clear, normal breath sounds, no respiratory distress Cardiovascular: normal peripheral pulses, no edema, no murmur Extremities: normal range of motion, non-tender Neurologic/Psychiatric: is support analyst II-XII nml as tested, alert, normal mood/affect, oriented x 3 Skin: normal color (NILTON SANCHEZ) Procedures/Interventions Date of ETT Placement: Oct 02, 2021 Time of ETT Placement: 142 (NILTON SANCHEZ) Progress/Results/Core Measures Suspected Sepsis SIRS Temperature: Pulse: 80 Respiratory Rate: 18 Laboratory Tests 03/26/22 14:15: White Blood Count 11.1H Blood Pressure 123 /83 Mean: 96 Laboratory Tests 03/26/22 14:15: Creatinine 0.98, Platelet Count 255, Total Bilirubin 1.5H (NILTON SANCHEZ) Results/Orders Lab Results Laboratory Tests Test 03/26/22 12:47 03/26/22 14:15 Range/Units Influenza Type A (RT-PCR) Not Detected Not Detecte Influenza Type B (RT-PCR) Not Detected Not Detecte SARS-CoV-2 RNA (RT-PCR) Not Detected Not Detecte White Blood Count 11.1 H 4.3-11.0 10^3/uL Red Blood Count 4.99 4.30-5.52 10^6/uL Hemoglobin 14.3 13.3-17.7 g/dL Hematocrit 45 40-54 % Mean Corpuscular Volume 90 80-99 fL Mean Corpuscular Hemoglobin 29 25-34 pg Mean Corpuscular Hemoglobin Concent 32 32-36 g/dL Red Cell Distribution Width 16.7 H 10.0-14.5 % Platelet Count 255 130-400 10^3/uL Mean Platelet Volume 10.9 9.0-12.2 fL Immature Granulocyte % (Auto) 0 % Neutrophils (%) (Auto) 75 42-75 % Lymphocytes (%) (Auto) 12 12-44 % Monocytes (%) (Auto) 8 0-12 % Eosinophils (%) (Auto) 4 0-10 % Basophils (%) (Auto) 0 0-10 % Neutrophils # (Auto) 8.3 H 1.8-7.8 10^3/uL Lymphocytes # (Auto) 1.3 1.0-4.0 10^3/uL Monocytes # (Auto) 0.9 0.0-1.0 10^3/uL Eosinophils # (Auto) 0.5 H 0.0-0.3 10^3/uL Basophils # (Auto) 0.1 0.0-0.1 10^3/uL Immature Granulocyte # (Auto) 0.1 0.0-0.1 10^3/uL Sodium Level 138 135-145 MMOL/L Potassium Level 4.0 3.6-5.0 MMOL/L Chloride Level 104 98-107 MMOL/L Carbon Dioxide Level 21 21-32 MMOL/L Anion Gap 13 5-14 MMOL/L Blood Urea Nitrogen 18 7-18 MG/DL Creatinine 0.98 0.60-1.30 MG/DL Estimat Glomerular Filtration Rate 99 BUN/Creatinine Ratio 18 Glucose Level 115 H 70-105 MG/DL Calcium Level 9.4 8.5-10.1 MG/DL Corrected Calcium 9.5 8.5-10.1 MG/DL Total Bilirubin 1.5 H 0.1-1.0 MG/DL Aspartate Amino Transf (AST/SGOT) 42 H 5-34 U/L Alanine Aminotransferase (ALT/SGPT) 31 0-55 U/L Alkaline Phosphatase 200 H 40-136 U/L C-Reactive Protein High Sensitivity 0.56 H 0.00-0.50 MG/DL Total Protein 7.2 6.4-8.2 GM/DL Albumin 3.9 3.2-4.5 GM/DL (SILVIA MACHADO MD) My Orders Orders - SILVIA MACHADO MD Covid 19 Inhouse Test (03/26/22 12:17) Influenza A And B By Pcr (03/26/22 12:17) Cbc With Automated Diff (03/26/22 13:07) Comprehensive Metabolic Panel (03/26/22 13:07) Hs C Reactive Protein (03/26/22 13:07) Ed Iv/Invasive Line Start (03/26/22 13:07) Chest Pa/Lat (2 View) (03/26/22 13:07) (SILVIA MACHADO MD) Vital Signs/I&O 03/26/22 12:06 Temp 36.2 Pulse 80 Resp 18 B/P (MAP) 123/83 (96) Pulse Ox 97 O2 Delivery Room Air (SILVIA MACHADO MD) Vital Signs/I&O Capillary Refill : Less Than 3 Seconds (NILTON SANCHEZ) Blood Pressure Mean: 96 Departure Communication (PCP) Patient is afebrile, nontoxic and in no distress. He is moving air well and he has some chronic changes on chest x-ray. I do think that this could be a chemical pneumonitis from methamphetamine use. I will cover him with symptomatic care and antibiotics. I do not feel there is any evidence or suspicion of acute CHF, myocarditis, pericarditis, endocarditis, sepsis or other emergent condition (NILTON SANCHEZ) Impression Primary Impression: Upper respiratory infection Additional Impression: Pneumonitis Disposition: 01 HOME, SELF-CARE Condition: Stable Departure-Patient Inst. Decision time for Depature: 14:42 (NILTON SANCHEZ) Referrals: [facility] (PCP/Family) Primary Care Physician Patient Instructions: Bacterial Upper Respiratory Infection, Adult, Pneumonitis (DC) Add. Discharge Instructions: Please follow-up closely with your primary care doctor. Return to the emergency room if any severe changes or worsening of symptoms All discharge instructions reviewed with patient and/or family. Voiced understanding. Scripts Acetaminophen (Acetaminophen ER) 650 Mg Tablet.er 650 MG PO TID PRN for PAIN-MILD (1-4), #30 TAB Prov: NILTON SANCHEZ 03/26/22 Promethazine/Dextromethorphan (Promethazine-Dm Syrup) 6.25 Mg-15 Mg/5 Ml Syrup 5 ML PO Q6H PRN for COUGH for 7 Days, #240 ML Prov: NILTON SANCHEZ 03/26/22 Albuterol Sulfate (PROAIR HFA) 1 Puff Puff 2 PUFF IH Q4H for Cough for 7 Days, #1 EA 1 PUFF = 90 MCG Prov: NILTON SANCHEZ 03/26/22 ATTENDING PHYSICIAN NOTE: I was physically present as attending physician in the emergency department during the care of this patient. I placed to the original orders after reviewing triage notes, but I was otherwise not directly involved in the decision making or delivery of care for this patient. (SILVIA MACHADO MD) NILTON SANCHEZ Mar 26, 2022 14:40 SILVIA MACHADO MD Mar 26, 2022 21:01
[2022-03-26] MEDS ORDERED: RT-ALBUINH IH ×2 (14:46→14:51)
[2022-03-26] MEDS ORDERED: ACET-168 PO (14:46)
[2022-03-26] MEDS ORDERED: D-ME473S11 PO ×2 (14:46→14:51)
[2022-03-26 14:50] VITALS: BP 117/72
[2022-03-26] MEDS ORDERED: ACET-2422 PO (14:51)
== END 2022-03-26 14:50 | disposition home or self-care (01) ==
LOC: EDUNIT# 11:40 → ER 11:41
DX: J18.9 Pneumonia, unspecified organism (principal); J06.9 Acute upper respiratory infection, unspecified; E66.9 Obesity, unspecified; F17.200 Nicotine dependence, unspecified, uncomplicated; Z68.33 Body mass index [BMI] 33.0-33.9, adult; Z20.822 Contact with and (suspected) exposure to COVID-19; Z28.310 Unvaccinated for COVID-19
CPT/HCPCS: 36415; 71046; 80053; 85025; 86141; 87636; 99283

== ENCOUNTER 2022-04-22 00:46 | Emergency (ER) | payer OTHER ==
[~2022-04-22 00:46] MED LIST changes: +ACET-168 PO; +ACET-2422 PO; +D-ME473S11 PO; +RT-ALBUINH IH
[2022-04-22] MEDS ORDERED: ALPRAZolam 0.5 MG (XANAX) TAB PO STA (02:49)
[2022-04-22] MEDS ORDERED: LACTATED RINGERS 1,000 ML IV ONE (03:00)
[2022-04-22] MEDS ORDERED: KETOROLAC 30 MG/ML VIAL IVP ONE (03:00)
[2022-04-22 03:56] LABS: POTASSIUM 3.9 MMOL/L (3.6-5.0)
[2022-04-22 04:02] LABS: CREATININE SERUM 1.1 MG/DL (0.60-1.30)
[2022-04-22 04:04] LABS: MAGNESIUM 1.8 MG/DL (1.6-2.4)
[2022-04-22] MEDS ORDERED: HYDROcodone/APAP 5 MG/325 MG (LORTAB) TAB PO ONE (04:15)
--- NOTE | 2022-04-22 04:18 | ED General ---
General Chief Complaint: Lower Extremity Stated Complaint: LEFT ANKLE PAIN,FELL OFF PORCH Nursing Triage Note: TO ED VIA POV AND AMBULATORY W/C TO FT1 WITH C/O LEFT FOOT PAIN AFTER FALLING FROM DECK AT 0000 YESTERDAY AND LANDING ON BILATERAL FEET WITH LEFT FOOT HITTING GROUND HARDER. Source of Information: Patient Exam Limitations: No Limitations History of Present Illness Date Seen by Provider: Apr 22, 2022 Time Seen by Provider: 01:17 Initial Comments This 41-year-old man presents to the emergency room with complaints of left mid foot pain after falling off a 10 foot porch. He landed on both feet and has had escalating pain in the foot since then. He has been on a 4-day mena of al cohol, methamphetamine, and marijuana use. He was previously abstinent for a period of time after utilizing rehab resources. He has a history of atrial fibrillation, CHF, and lung disease. He has been off of his medications for a few days. He is generally uncomfortable, diaphoretic, and in distress from pain. In addition to foot pain he is experiencing muscle cramping. Allergies and Home Medications Allergies Coded Allergies: Penicillins (Verified Allergy, Unknown, 11/09/20) Patient Home Medication List Home Medication List Reviewed: Yes Acetaminophen (Acetaminophen ER) 650 Mg Tablet.er, 650 MG PO TID PRN for PAIN- MILD (1-4) Prescribed by: Chintan Sanchez on 03/26/22 1451 Albuterol Sulfate (Proair Hfa) 1 Puff Puff, 2 PUFF IH Q4H Prescribed by: Chintan Sanchez on 03/26/22 1451 Amiodarone HCl (Amiodarone HCl) 200 Mg Tablet, 200 MG PO BID Prescribed by: JB VALDEZ on 10/14/21 1352 Apixaban (Eliquis) 5 Mg Tablet, 5 MG PO BID Prescribed by: JB VALDEZ on 10/14/21 1352 Captopril (Captopril) 25 Mg Tablet, 12.5 MG PO BID Prescribed by: JB VALDEZ on 10/14/21 1352 Furosemide (Furosemide) 40 Mg Tablet, 40 MG PO BID Prescribed by: JB VALDEZ on 10/14/21 1352 Hydroxyzine HCl (Hydroxyzine HCl) 25 Mg Tablet, 25 MG PO HS PRN for INSOMNIA Prescribed by: ALBIN BOJORQUEZ on 12/21/21 1415 Metoprolol Succinate (Metoprolol Succinate) 50 Mg Tab.er.24h, 50 MG PO DAILY Prescribed by: JB VALDEZ on 10/14/21 1352 Potassium Chloride (Klor-Con M20) 20 Meq Tab.er.prt, 20 MEQ PO BID WITH MEALS Prescribed by: JB VALDEZ on 10/14/21 1352 Promethazine/Dextromethorphan (Promethazine-Dm Syrup) 6.25 Mg-15 Mg/5 Ml Syrup, 5 ML PO Q6H PRN for COUGH Prescribed by: Chintan Sanchez on 03/26/22 1451 Venlafaxine HCl (Venlafaxine HCl ER) 75 Mg Cap.er.24h, 75 MG PO DAILY Prescribed by: JB VALDEZ on 10/14/21 1352 Review of Systems Review of Systems Constitutional: see HPI EENTM: no symptoms reported Respiratory: no symptoms reported Cardiovascular: see HPI Gastrointestinal: no symptoms reported Genitourinary: no symptoms reported Musculoskeletal: see HPI Skin: see HPI Psychiatric/Neurological: See HPI Hematologic/Lymphatic: No Symptoms Reported Past Xkocuwb-Aiptwx-Rpuaah Hx Patient Social History Tobacco Use?: Yes Tobacco type used: Cigarettes Smoking Status: Current Everyday Smoker Smokeless Tobacco Frequency: Current Everyday User Substance use?: Yes Substance type: Methamphetamine, Marijuana Alcohol Use?: Yes Alcohol Frequency: Several times a month Immunizations Up To Date Tetanus Booster (TDap): Unknown First/Initial COVID19 Vaccinat: N/A Second COVID19 Vaccination [place]: N/A Third COVID19 Vaccination Date: N/A Past Medical History Surgery/Hospitalization HX: A-FIB Surgeries: Yes (HERNIA REPAIR) Abdominal, Appendectomy Respiratory: No Cardiac: Yes (CHF 30-35% EF) Atrial Fibrillation, Cardiomyopathy, High Cholesterol, Hypertension Neurological: No Genitourinary: No Gastrointestinal: Yes Gastroesophageal Reflux Musculoskeletal: No Endocrine: Yes (OBESITY) HEENT: No Cancer: No Psychosocial: Yes (SUBSTANCE ABUSE) Integumentary: Yes (TATTOOS) Blood Disorders: No Family Medical History No Pertinent Family Hx SOCIAL HISTORY: -ETOH--REGULAR USE -DRUGS--METHAMPHETAMINES -SMOKES 1 PPD PAST SURGICAL HISTORY: -APPENDECTOMY -HERNIA REPAIR -CARDIOVERSIONS ECHOCARDIOGRAM 11/13/20--EF 30-35%, NO REGIONAL WALL MOTION ABNORMALITIES. EXTREME NON-COMPLIANCE IN ALL ASPECTS OF CARE Physical Exam Vital Signs Vital Signs - First Documented 04/22/22 03:39 Temp 35.9 Pulse 97 Resp 20 B/P (MAP) 135/94 (108) Pulse Ox 97 O2 Delivery Room Air Capillary Refill : Less Than 3 Seconds Height, Weight, BMI Height: '" Weight: lbs. oz. kg; 33.00 BMI Method: General Appearance: WD/WN, Moderate Distress HEENT: PERRL/EOMI, Normal ENT Inspection, Other (Oropharynx somewhat dry) Neck: Normal Inspection Respiratory: Lungs Clear, Normal Breath Sounds, No Accessory Muscle Use Cardiovascular: Regular Rate, Rhythm, No Edema, No Murmur Extremity: Other (No significant erythema or swelling. Tenderness over the dorsum of the left mid and proximal foot. Normal pedal pulses. Sensation, movement, and capillary refill intact in the toes.) Neurologic/Psychiatric: Alert, Oriented x3, No Motor/Sensory Deficits, Normal Mood/Affect, assembler faucets II-XII Norm as Tested, Other (Dystonic movements consistent with methamphetamine use) Skin: Normal Color, Warm/Dry Procedures/Interventions Date of ETT Placement: Oct 02, 2021 Time of ETT Placement: 142 Progress/Results/Core Measures Suspected Sepsis SIRS Temperature: Pulse: 97 Respiratory Rate: 20 Blood Pressure 135 /94 Mean: 108 Laboratory Tests 04/22/22 03:35: Creatinine 1.10 Results/Orders Lab Results Laboratory Tests Test 04/22/22 03:35 Range/Units Sodium Level 138 135-145 MMOL/L Potassium Level 3.9 3.6-5.0 MMOL/L Chloride Level 102 98-107 MMOL/L Carbon Dioxide Level 21 21-32 MMOL/L Anion Gap 15 H 5-14 MMOL/L Blood Urea Nitrogen 15 7-18 MG/DL Creatinine 1.10 0.60-1.30 MG/DL Estimat Glomerular Filtration Rate 86 BUN/Creatinine Ratio 14 Glucose Level 110 H 70-105 MG/DL Calcium Level 10.0 8.5-10.1 MG/DL Magnesium Level 1.8 1.6-2.4 MG/DL Total Creatine Kinase 1049 H 30-200 U/L My Orders Orders - SILVIA MACHADO MD Foot, Left, 3 Views (04/22/22 01:17) Ankle, Left, 3 Views (04/22/22 01:17) Basic Metabolic Panel (04/22/22 02:49) Creatine Kinase (04/22/22 02:49) Magnesium (04/22/22 02:49) Ed Iv/Invasive Line Start (04/22/22 02:49) Lactated Ringers (Lr 1000 Ml Iv Solution (04/22/22 03:00) Alprazolam Tablet (Xanax Tablet) (04/22/22 02:49) Ketorolac Injection (Toradol Injection) (04/22/22 03:00) Hydrocodone/Apap 5/325 Tablet (Lortab 5 (04/22/22 04:15) Crutches (04/22/22 04:06) Medications Given in ED Vital Signs/I&O 04/22/22 04/22/22 03:39 04:48 Temp 35.9 36.0 Pulse 97 92 Resp 20 18 B/P (MAP) 135/94 (108) 133/90 Pulse Ox 97 98 O2 Delivery Room Air Room Air Capillary Refill : Less Than 3 Seconds Blood Pressure Mean: 108 Progress Note : Progress Note Patient was treated with Toradol and IV fluids. Because of his cramping and recent methamphetamine and alcohol use, labs were checked including electrolytes. Creatinine kinase was elevated. Diagnostic Imaging Diagonstic Imaging: Xray Plain Films/CT/US/NM/MRI: ankle Comments Left ankle x-rays reviewed by me. Report not available at the time of the encounter and reviewed retrospectively. NAME: PAL VALERIO [facility] REC#: [id number] PT STATUS: DEP ER : 1980 PHYSICIAN: SILVIA MACHADO MD ADMIT DATE: 04/22/22/ER Signed Date of Exam:04/22/22 ANKLE, LEFT, 3 VIEWS HISTORY: Left ankle pain TECHNIQUE: 3 views of the left ankle COMPARISON: None FINDINGS: No acute fracture or dislocation is seen in the left ankle. Alignment appears normal. Ankle mortise is symmetric and the talar dome is intact. There is mild soft tissue swelling about the ankle. No significant joint effusion is seen. IMPRESSION: 1. Mild soft tissue swelling about the left ankle with no acute osseous abnormality seen. Dictated by: Dictated on workstation # [id number] Dict: 04/22/2214 Trans: 04/22/22 1133 GRICELDA [id number] Interpreted by: LANIE HURLEY MD Electronically signed by: LANIE HURLEY MD 04/22/22 1133 Diagonstic Imaging: Xray Plain Films/CT/US/NM/MRI: other (Left foot) Comments Left foot x-ray viewed by me. Report not yet available at the time of encounter. No acute injuries identified. Report reviewed retrospectively. NAME: PAL VALERIO [facility] REC#: [id number] PT STATUS: DEP ER : 1980 PHYSICIAN: SILVIA MACHADO MD ADMIT DATE: 04/22/22/ER Signed Date of Exam:04/22/22 FOOT, LEFT, 3 VIEWS HISTORY: Left foot pain TECHNIQUE: 3 views left foot COMPARISON: None FINDINGS: No acute fracture or dislocation is seen in the left foot. Alignment appears normal. Joint spaces are preserved. No cortical erosions are seen. IMPRESSION: 1. No acute osseous abnormality is seen in the left foot. Dictated by: Dictated on workstation # [id number] Dict: 04/22/2215 Trans: 04/22/22 1134 KANDACE [id number] Interpreted by: LANIE HURLEY MD Electronically signed by: LANIE HURLEY MD 04/22/22 1134 Departure Impression Primary Impression: Injury of left foot Qualified Codes: S99.922A - Unspecified injury of left foot, initial encounter Additional Impressions: Polysubstance abuse Elevated creatine kinase Disposition: 01 HOME, SELF-CARE Condition: Improved Departure-Patient Inst. Decision time for Depature: 04:15 Referrals: [facility] (PCP/Family) Primary Care Physician Patient Instructions: ALCOHOL AND SUBSTANCE ABUSE, Foot Sprain (DC) Add. Discharge Instructions: Drink lots of clear liquids to stay well-hydrated. Elevation, compressive wrapping, and 20-minute intervals of icing should help with pain and swelling. Use crutches as needed. Gradually increase activity as pain allows. Follow-up with your primary care provider soon as possible. Call in the morning to make an appointment. Seek assistance with substance abuse through [facility] or other sources available to you. You may take ibuprofen up to 600 mg every 6 hours as needed and/or Tylenol (acetaminophen) up to 1000 mg every 6 hours as needed for pain. Return to the ER if you have worsening symptoms. All discharge instructions reviewed with patient and/or family. Voiced understanding. Copy Copies To 1: [facility]/SILVIA VARELA MD Apr 22, 2022 04:18
[2022-04-22 04:48] VITALS: BP 133/90
--- NOTE | 2022-04-22 07:25 | Diagnostic Imaging Report ---
HISTORY: Left foot pain TECHNIQUE: 3 views left foot COMPARISON: None FINDINGS: No acute fracture or dislocation is seen in the left foot. Alignment appears normal. Joint spaces are preserved. No cortical erosions are seen. IMPRESSION: 1. No acute osseous abnormality is seen in the left foot. Dictated by: Dictated on workstation # [id number]
--- NOTE | 2022-04-22 07:26 | Diagnostic Imaging Report ---
HISTORY: Left ankle pain TECHNIQUE: 3 views of the left ankle COMPARISON: None FINDINGS: No acute fracture or dislocation is seen in the left ankle. Alignment appears normal. Ankle mortise is symmetric and the talar dome is intact. There is mild soft tissue swelling about the ankle. No significant joint effusion is seen. IMPRESSION: 1. Mild soft tissue swelling about the left ankle with no acute osseous abnormality seen. Dictated by: Dictated on workstation # [id number]
== END 2022-04-22 04:49 | disposition home or self-care (01) ==
LOC: EDUNIT# 00:46 → ER 00:51
DX: S99.922A Unspecified injury of left foot, initial encounter (principal); T43.621A Poisoning by amphetamines, accidental (unintentional), initial encounter; G24.09 Other drug induced dystonia; R74.8 Abnormal levels of other serum enzymes; E66.9 Obesity, unspecified; F17.210 Nicotine dependence, cigarettes, uncomplicated; Z68.33 Body mass index [BMI] 33.0-33.9, adult; Z91.14 Patient's other noncompliance with medication regimen; Z28.310 Unvaccinated for COVID-19; W17.89XA Other fall from one level to another, initial encounter
CPT/HCPCS: 36415; 73610; 73630; 80048; 82550; 83735

== ENCOUNTER 2022-04-26 18:57 | Emergency (ER) | payer OTHER ==
[2022-04-26] MEDS ORDERED: ASPIRIN 81 MG CHEW (CHILDREN'S ASA) PO ONE (19:15)
[2022-04-26 19:16] VITALS: BP 153/102
[2022-04-26 19:18] LABS: BASOPHILS # (AUTO) 0.1 10^3/uL (0.0-0.1); BASOPHILS % (AUTO) 0 % (0-10); EOSINOPHILS # (AUTO) 0.4 10^3/uL (0.0-0.3); EOSINOPHILS % (AUTO) 4 % (0-10); HEMATOCRIT 45 % (40-54); HEMOGLOBIN 14.2 g/dL (13.3-17.7); LYMPHOCYTES # (AUTO) 0.9 10^3/uL (1.0-4.0); LYMPHOCYTES % (AUTO) 7 % (12-44); MEAN CORPUSCULAR HEMOGLOBIN 28 pg (25-34); MEAN CORPUSCULAR HGB CONC 32 g/dL (32-36); MEAN CORPUSCULAR VOLUME 90 fL (80-99); MEAN PLATELET VOLUME 11.1 fL (9.0-12.2); MONOCYTES # (AUTO) 0.9 10^3/uL (0.0-1.0); MONOCYTES % (AUTO) 7 % (0-12); NEUTROPHILS # (AUTO) 10.1 10^3/uL (1.8-7.8); NEUTROPHILS % (AUTO) 82 % (42-75); PLATELET COUNT 240 10^3/uL (130-400); WHITE BLOOD COUNT 12.4 10^3/uL (4.3-11.0)
[2022-04-26 19:30] LABS: INR 1.2 (0.8-1.4); PROTHROMBIN TIME PATIENT 15.3 SEC (12.2-14.7)
[2022-04-26 19:37] LABS: EOSINOPHILS % (MANUAL) 9 %; LYMPHOCYTES % (MANUAL) 3 %; MONOCYTES % (MANUAL) 8 %; NEUTROPHILS % (MANUAL) 80 %; RBC MORPH NORMAL
--- NOTE | 2022-04-26 19:40 | Diagnostic Imaging Report ---
INDICATION: Chest pain. COMPARISON: Exam compared with radiograph of 12/21/2021. FINDINGS: There is chronic air trapping and COPD present. When differing penetration and technique taken into account, no obvious change. No focal consolidation. Upper limits heart size, unchanged. No effusion. No pneumothorax. IMPRESSION: Stable chronic findings. Dictated by: Dictated on workstation # [id number]
[2022-04-26 19:45] LABS: ALBUMIN 3.8 GM/DL (3.2-4.5); BILIRUBIN,TOTAL 1.5 MG/DL (0.1-1.0); CALCIUM 9.3 MG/DL (8.5-10.1); CREATININE SERUM 0.97 MG/DL (0.60-1.30); MAGNESIUM 1.7 MG/DL (1.6-2.4); POTASSIUM 4.2 MMOL/L (3.6-5.0); TOTAL PROTEIN 7.2 GM/DL (6.4-8.2)
--- NOTE | 2022-04-26 19:47 | ED Chest Pain ---
General Chief Complaint: Chest Pain Stated Complaint: CP/VOMITING/L ARM FINGERS TINGLING Nursing Triage Note: pt presents with c/o intermittent CP with numbness in his left arm x2days. reports SOB that started today. reports he has been off of his heart medications for two weeks, hx of CHF and afib. pt reports relapse on methamphetamine four days ago Source: patient Exam Limitations: no limitations (SOFÍA ECHEVARRIA APRN) History of Present Illness Date Seen by Provider: Apr 26, 2022 Time Seen by Provider: 19:46 Initial Comments To ER with chest pain shortness of breath for about [address] Bejarano, he had recently run out of his medications. History of atrial fibrillation. He recently had a relapse on his methamphetamine states he last used it 4 days ago. He states that Dr. Bejarano offered him inpatient treatment and he declined at first but now he is change his mind and would like to be admitted for couple of days. Timing/Duration: 1-2 days Severity/Quality: moderate Location: central Radiation: no radiation Activities at Onset: none ASA po NURSE DISCHARGE PLANNER: No NTG SL NURSE DISCHARGE PLANNER: No (SOFÍA ECHEVARRIA APRN) Allergies and Home Medications Allergies Coded Allergies: Penicillins (Verified Allergy, Unknown, 11/09/20) Patient Home Medication List Home Medication List Reviewed: Yes (SOFÍA ECHEVARRIA APRN) Acetaminophen (Acetaminophen ER) 650 Mg Tablet.er, 650 MG PO TID PRN for PAIN- MILD (1-4) Prescribed by: Chintan Sanchez on 03/26/22 1451 Albuterol Sulfate (Proair Hfa) 1 Puff Puff, 2 PUFF IH Q4H Prescribed by: Chintan Sanchez on 03/26/22 1451 Amiodarone HCl (Amiodarone HCl) 200 Mg Tablet, 200 MG PO BID Prescribed by: JB VALDEZ on 10/14/21 1352 Apixaban (Eliquis) 5 Mg Tablet, 5 MG PO BID Prescribed by: JB VALDEZ on 10/14/21 1352 Captopril (Captopril) 25 Mg Tablet, 12.5 MG PO BID Prescribed by: JB VALDEZ on 10/14/21 1352 Furosemide (Furosemide) 40 Mg Tablet, 40 MG PO BID Prescribed by: JB VALDEZ on 10/14/21 1352 Hydroxyzine HCl (Hydroxyzine HCl) 25 Mg Tablet, 25 MG PO HS PRN for INSOMNIA Prescribed by: ALBIN BOJORQUEZ on 12/21/21 1415 Metoprolol Succinate (Metoprolol Succinate) 50 Mg Tab.er.24h, 50 MG PO DAILY Prescribed by: JB VALDEZ on 10/14/21 1352 Potassium Chloride (Klor-Con M20) 20 Meq Tab.er.prt, 20 MEQ PO BID WITH MEALS Prescribed by: JB VALDEZ on 10/14/21 1352 Promethazine/Dextromethorphan (Promethazine-Dm Syrup) 6.25 Mg-15 Mg/5 Ml Syrup, 5 ML PO Q6H PRN for COUGH Prescribed by: Chintan Sanchez on 03/26/22 1451 Venlafaxine HCl (Venlafaxine HCl ER) 75 Mg Cap.er.24h, 75 MG PO DAILY Prescribed by: JB VALDEZ on 10/14/21 1352 Review of Systems Review of Systems Constitutional: see HPI EENTM: No Symptoms Reported Respiratory: No Symptoms Reported Cardiovascular: See HPI, Chest Pain Gastrointestinal: No Symptoms Reported Genitourinary: No Symptoms Reported Musculoskeletal: no symptoms reported Skin: no symptoms reported Psychiatric/Neurological: No Symptoms Reported Endocrine: No Symptoms Reported Hematologic/Lymphatic: No Symptoms Reported (SOFÍA ECHEVARRIA APRN) Past Crakghn-Nmtrqv-Wvxbwi Hx Patient Social History Tobacco Use?: Yes Smoking Status: Current Everyday Smoker Substance use?: Yes Substance type: Methamphetamine Alcohol Use?: Yes Alcohol Frequency: Couple times a week (SOFÍA ECHEVARRIA APRN) Immunizations Up To Date Tetanus Booster (TDap): Unknown Influenza Vaccine Up-to-Date: No; Not Current First/Initial COVID19 Vaccinat: N/A Second COVID19 Vaccination [place]: N/A Third COVID19 Vaccination Date: N/A (SOFÍA ECHEVARRIA APRN) Past Medical History Surgery/Hospitalization HX: A-FIB Surgeries: Yes (HERNIA REPAIR) Abdominal, Appendectomy Respiratory: No Cardiac: Yes (CHF 30-35% EF) Atrial Fibrillation, Cardiomyopathy, High Cholesterol, Hypertension Neurological: No Genitourinary: No Gastrointestinal: Yes Gastroesophageal Reflux Musculoskeletal: No Endocrine: Yes (OBESITY) HEENT: No Cancer: No Psychosocial: Yes (SUBSTANCE ABUSE) Integumentary: Yes (TATTOOS) Blood Disorders: No (SOFÍA ECHEVARRIA APRN) Family Medical History No Pertinent Family Hx SOCIAL HISTORY: -ETOH--REGULAR USE -DRUGS--METHAMPHETAMINES -SMOKES 1 PPD PAST SURGICAL HISTORY: -APPENDECTOMY -HERNIA REPAIR -CARDIOVERSIONS ECHOCARDIOGRAM 11/13/20--EF 30-35%, NO REGIONAL WALL MOTION ABNORMALITIES. EXTREME NON-COMPLIANCE IN ALL ASPECTS OF CARE (SOFÍA ECHEVARRIA APRN) Physical Exam Vital Signs Vital Signs - First Documented (SILVIA MACHADO MD) Vital Signs Capillary Refill : (SOFÍA ECHEVARRIA APRN) Height, Weight, BMI Height: '" Weight: lbs. oz. kg; 33.00 BMI Method: General Appearance: No Apparent Distress, Anxious, Other (Unable to sit still, feet are moving nearly constantly. Appears to be under the influence of methamphetamine currently. We will give him 5 mg of Valium. Troponin is negative. He has all of his cardiac medications filled today and he has these with him. His EKG shows rate controlled atrial flutter rate of 70 his blood pressure is fine his chest x-ray is Clear and his troponin is negative. He does not meet inpatient criteria.) Neck: Full Range of Motion Respiratory: No Accessory Muscle Use, No Respiratory Distress Cardiovascular: Normal Peripheral Pulses, Irregularly Irregular Gastrointestinal: Normal Bowel Sounds, Non Tender, Soft Neurologic/Psychiatric: Alert, Oriented x3 Skin: Normal Color, Warm/Dry (SOFÍA ECHEVARRIA APRN) Procedures/Interventions Date of ETT Placement: Oct 02, 2021 Time of ETT Placement: 0143 (SOFÍA ECHEVARRIA APRN) Progress/Results/Core Measures Results/Orders Lab Results Laboratory Tests Test 04/26/22 19:11 Range/Units White Blood Count 12.4 H 4.3-11.0 10^3/uL Red Blood Count 5.00 4.30-5.52 10^6/uL Hemoglobin 14.2 13.3-17.7 g/dL Hematocrit 45 40-54 % Mean Corpuscular Volume 90 80-99 fL Mean Corpuscular Hemoglobin 28 25-34 pg Mean Corpuscular Hemoglobin Concent 32 32-36 g/dL Red Cell Distribution Width 16.7 H 10.0-14.5 % Platelet Count 240 130-400 10^3/uL Mean Platelet Volume 11.1 9.0-12.2 fL Immature Granulocyte % (Auto) 0 % Neutrophils (%) (Auto) 82 H 42-75 % Lymphocytes (%) (Auto) 7 L 12-44 % Monocytes (%) (Auto) 7 0-12 % Eosinophils (%) (Auto) 4 0-10 % Basophils (%) (Auto) 0 0-10 % Neutrophils # (Auto) 10.1 H 1.8-7.8 10^3/uL Lymphocytes # (Auto) 0.9 L 1.0-4.0 10^3/uL Monocytes # (Auto) 0.9 0.0-1.0 10^3/uL Eosinophils # (Auto) 0.4 H 0.0-0.3 10^3/uL Basophils # (Auto) 0.1 0.0-0.1 10^3/uL Immature Granulocyte # (Auto) 0.1 0.0-0.1 10^3/uL Neutrophils % (Manual) 80 % Lymphocytes % (Manual) 3 % Monocytes % (Manual) 8 % Eosinophils % (Manual) 9 % Blood Morphology Comment NORMAL Prothrombin Time 15.3 H 12.2-14.7 SEC INR Comment 1.2 0.8-1.4 Activated Partial Thromboplast Time 39 H 24-35 SEC Sodium Level 142 135-145 MMOL/L Potassium Level 4.2 3.6-5.0 MMOL/L Chloride Level 105 98-107 MMOL/L Carbon Dioxide Level 22 21-32 MMOL/L Anion Gap 15 H 5-14 MMOL/L Blood Urea Nitrogen 18 7-18 MG/DL Creatinine 0.97 0.60-1.30 MG/DL Estimat Glomerular Filtration Rate 100 BUN/Creatinine Ratio 19 Glucose Level 119 H 70-105 MG/DL Calcium Level 9.3 8.5-10.1 MG/DL Corrected Calcium 9.5 8.5-10.1 MG/DL Magnesium Level 1.7 1.6-2.4 MG/DL Total Bilirubin 1.5 H 0.1-1.0 MG/DL Aspartate Amino Transf (AST/SGOT) 44 H 5-34 U/L Alanine Aminotransferase (ALT/SGPT) 33 0-55 U/L Alkaline Phosphatase 237 H 40-136 U/L Myoglobin 96.9 H 10.0-92.0 NG/ML Troponin I < 0.028 <0.028 NG/ML B-Type Natriuretic Peptide 916.7 H <100.0 PG/ML Total Protein 7.2 6.4-8.2 GM/DL Albumin 3.8 3.2-4.5 GM/DL (SILVIA MACHADO MD) Vital Signs/I&O 04/26/22 04/26/22 04/26/22 19:16 19:16 20:33 Temp 36.6 Pulse 81 86 Resp 18 20 B/P (MAP) 153/102 (119) 148/114 Pulse Ox 95 95 94 O2 Delivery Room Air Room Air Room Air (SILVIA MACHADO MD) Blood Pressure Mean: 119 Departure Impression Primary Impression: Typical atrial flutter Additional Impression: Substance abuse Disposition: 01 HOME, SELF-CARE Condition: Stable Departure-Patient Inst. Decision time for Depature: 20:28 (SOFÍA ECHEVARRIA APRN) Referrals: [facility] [place] (PCP/Family) Primary Care Physician Patient Instructions: Atrial Flutter (DC) Add. Discharge Instructions: 1. Take cardiac medication as directed. Return to ER for any concerns. Follow-up with Dr. Bejarano next week. All discharge instructions reviewed with patient and/or family. Voiced understanding. ATTENDING PHYSICIAN NOTE: I was physically present as attending physician in the emergency department during the care of this patient, but I was not directly involved in the decision making or delivery of care for this patient. (SILVIA MACHADO MD) SOFÍA ECHEVARRIA APRN Apr 26, 2022 19:47 SILVIA MACHADO MD Apr 28, 2022 07:09
[2022-04-26] MEDS ORDERED: DIAZEPAM INJ 10 MG/2 ML (VALIUM) SYR IVP ONE (20:30)
== END 2022-04-26 20:36 | disposition home or self-care (01) ==
LOC: EDUNIT# 18:57 → ER 19:00
DX: I48.3 Typical atrial flutter (principal); F15.10 Other stimulant abuse, uncomplicated; E66.9 Obesity, unspecified; F17.200 Nicotine dependence, unspecified, uncomplicated; Z68.33 Body mass index [BMI] 33.0-33.9, adult; Z86.79 Personal history of other diseases of the circulatory system; Z91.14 Patient's other noncompliance with medication regimen; Z28.310 Unvaccinated for COVID-19
CPT/HCPCS: 36415; 71045; 80053; 83735; 83874; 83880; 84484; 85007; 85027; 85610; 85730; 93005; 93041

== ENCOUNTER → 2022-04-26 | Outpatient (CLI) | payer OTHER | LOC: CARD 13:00 | PROVIDERS: ATTEND Nurse Practitioner Family | DX: I35.0 Nonrheumatic aortic (valve) stenosis (principal); I51.7 Cardiomegaly; I42.0 Dilated cardiomyopathy | CPT/HCPCS: 93306 ==

== ENCOUNTER 2022-07-02 13:03 | Inpatient (IN) | payer OTHER ==
[~2022-07-02] VITALS: Ht 180.3 cm; Wt 105.0 kg
[2022-07-02] MEDS ORDERED: morphine INJ 10 MG/ML 1ML (SYR OR VIAL) IVP STA ×2 (13:10→15:25)
[2022-07-02 13:18] LABS: BASOPHILS # (AUTO) 0.1 10^3/uL (0.0-0.1); BASOPHILS % (AUTO) 1 % (0-10); EOSINOPHILS # (AUTO) 0.5 10^3/uL (0.0-0.3); EOSINOPHILS % (AUTO) 4 % (0-10); HEMATOCRIT 44 % (40-54); HEMOGLOBIN 13.8 g/dL (13.3-17.7); LYMPHOCYTES # (AUTO) 1.7 10^3/uL (1.0-4.0); LYMPHOCYTES % (AUTO) 13 % (12-44); MEAN CORPUSCULAR HEMOGLOBIN 27 pg (25-34); MEAN CORPUSCULAR HGB CONC 31 g/dL (32-36); MEAN CORPUSCULAR VOLUME 86 fL (80-99); MEAN PLATELET VOLUME 11.4 fL (9.0-12.2); MONOCYTES # (AUTO) 1.4 10^3/uL (0.0-1.0); MONOCYTES % (AUTO) 11 % (0-12); NEUTROPHILS # (AUTO) 9.2 10^3/uL (1.8-7.8); NEUTROPHILS % (AUTO) 72 % (42-75); PLATELET COUNT 217 10^3/uL (130-400); WHITE BLOOD COUNT 12.9 10^3/uL (4.3-11.0)
[2022-07-02 13:31] LABS: INR 1.2 (0.8-1.4); PROTHROMBIN TIME PATIENT 15.8 SEC (12.2-14.7)
[2022-07-02 13:34] LABS: POTASSIUM 4.3 MMOL/L (3.6-5.0)
[2022-07-02 13:35] LABS: AMPHETAMINE SCREEN, URINE NEGATIVE (NEGATIVE); BARBITURATE SCREEN URINE NEGATIVE (NEGATIVE); BENZODIAZEPINES SCREEN URINE POSITIVE (NEGATIVE); CANNABINOID SCREEN, URINE POSITIVE (NEGATIVE); COCAINE SCREEN URINE NEGATIVE (NEGATIVE); METHADONE STAT NEGATIVE (NEGATIVE); OPIATE SCREEN URINE NEGATIVE (NEGATIVE); OXYCODONE STAT NEGATIVE (NEGATIVE); PROPOXYPHENE STAT NEGATIVE (NEGATIVE); TRICYCLIC ANTIDEPRESSANTS SCRE NEGATIVE (NEGATIVE)
[2022-07-02 13:36] LABS: CALCIUM 9.8 MG/DL (8.5-10.1)
[2022-07-02 13:37] LABS: TOTAL PROTEIN 7.5 GM/DL (6.4-8.2)
[2022-07-02 13:38] LABS: BILIRUBIN,TOTAL 1.2 MG/DL (0.1-1.0)
[2022-07-02 13:40] LABS: CREATININE SERUM 0.86 MG/DL (0.60-1.30)
[2022-07-02 13:43] LABS: MAGNESIUM 1.9 MG/DL (1.6-2.4)
--- NOTE | 2022-07-02 13:52 | Diagnostic Imaging Report ---
INDICATION: Chest pain COMPARISON: 04/26/2022 TECHNIQUE: 2 radiographs of the chest dated 08/01/2022 FINDINGS: The cardiac silhouette is mildly enlarged, stable from the prior examinations. No significant pulmonary vascular congestion. The lungs are clear of focal pulmonary opacity. No pleural effusion. No pneumothorax. No acute osseous abnormality. IMPRESSION: No acute cardiopulmonary abnormality. Stable mild cardiomegaly. Dictated by: Dictated on workstation # [id number]
[2022-07-02] MEDS ORDERED: ONDANSETRON 4 MG/2 ML (SDV) Z0FRAN IVP ONE ×2 (14:30→17:45)
[2022-07-02] MEDS ORDERED: LIDOCAINE 2% VISCOUS 15 ML UDC PO ONE (14:30)
[2022-07-02] MEDS ORDERED: ANTACID SUSP 30 ML UDC (MYLANTA) PO ONE (14:30)
[2022-07-02] MEDS ORDERED: FUROSEMIDE 40 MG/4 ML INJ (LASIX) IVP ONE (15:30)
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
[2022-07-02] MEDS ORDERED: NS 100 ML (IVPB) BAG IV ONE (16:15)
[2022-07-02] MEDS ORDERED: HOLD METFORMIN - RECEIVED CONTRAST 20 ML VIAL IV SCH (16:15)
[2022-07-02] MEDS ORDERED: IOHEXOL 350 MG/ML 100 ML (OMNIPAQUE 350) VIAL IV ONE (16:15)
--- NOTE | 2022-07-02 16:44 | Diagnostic Imaging Report ---
INDICATION: chest and abd pain CTA chest, abdomen and pelvis Thin axial sections through the chest, abdomen and pelvis are obtained following intravenous contrast bolus. Multiplanar MIP images were reconstructed and reviewed. All CT scans use one or more of the following dose optimizing techniques: automated exposure control, MA and/or KvP adjustment based on patient size and exam type or iterative reconstruction. FINDINGS: CTA chest: No abnormal intraluminal filling defect is seen to the 1st subsegmental division of the pulmonary arteries. Thoracic aorta is suboptimally opacified to assess for dissection, but by NASCET criteria, there is no focal significant stenosis or evidence of aneurysm. Heart is enlarged. Trace pericardial effusion is present. Multiple mildly prominent mediastinal lymph nodes are noted. Largest is seen medial to the azygos vein and measures 1.3 x 1.8 cm. Similar appearance is noted on prior CT dated 12/21/2021. No abnormal axillary adenopathy is seen. Evaluation of the lung rueda demonstrates mild right-sided pleural effusion with associated minimal atelectasis of the posterior right base. There is no large effusion on the left. No pneumothorax seen on either side. Lungs are otherwise clear. No suspicious pulmonary nodules or masses are seen. Osseous structures show no acute abnormalities. CT ABDOMEN: There is subtle macronodular appearance to the external contour of the liver suggestive of cirrhosis. Small amount of free fluid is noted within the abdomen and pelvis. There is no loculated fluid collection or free air. There are multiple areas of focal cortical thinning involving the inferior pole of both kidneys. Otherwise, the kidneys, adrenal glands, spleen, and pancreas have a normal CT appearance. Note is made of reflux of contrast into the IVC and hepatic veins. No abnormal mesenteric or retroperitoneal adenopathy is seen. Osseous structures show no acute abnormalities. CT PELVIS: Urinary bladder is unopacified. No calculi are seen within urinary bladder. Small amount of free fluid in the pelvis. There is no loculated fluid collection or free air. No abnormal adenopathy is seen. Osseous structures show no acute abnormalities. IMPRESSION: 1. No pulmonary embolus. 2. Mild cardiomegaly with reflux of contrast into the IVC and hepatic veins. This does raise concern for elevated right heart pressures or underlying heart failure. 3. Small right effusion. 4. Multiple mildly prominent mediastinal lymph nodes of uncertain significance or etiology. Similar appearance is noted on prior exam dated 12/21/2021. 4. No acute abnormalities seen within the abdomen or pelvis. 5. Subtle cirrhotic morphology to the liver. 6. Mild abdominal pelvic ascites. 7. Multiple areas of focal renal cortical thinning. This can be seen with prior infection or infarction. Dictated by: Dictated on workstation # [id number]
[2022-07-02] MEDS ORDERED: hydrOXYzine (VISTARIL/ATARAX) 25 MG capsule/tablet PO ONE (17:45)
[2022-07-02] MEDS ORDERED: KETOROLAC 30 MG/ML VIAL IVP ONE (18:00)
[2022-07-02] MEDS ORDERED: CALCIUM CARBONATE 500 MG (TUMS) TAB.CHEW PO PRN (19:45)
[2022-07-02] MEDS ORDERED: MELATONIN 3 MG TABLET PO PRN (19:45)
[2022-07-02] MEDS ORDERED: polyethylene glycoL POWDER 17 GM (MIRALAX) PACK PO PRN (19:45)
[2022-07-02] MEDS ORDERED: diphenhydrAMINE 50 MG/ML INJ (BENADRYL) IVP PRN (19:45)
[2022-07-02] MEDS ORDERED: ONDANSETRON 4 MG (ZOFRAN) ORAL DISSOLVE TAB PO PRN (19:45)
[2022-07-02] MEDS ORDERED: LACTULOSE SYRUP 10GM/15ML (ENULOSE) 30ML UDC PO PRN (19:45)
[2022-07-02] MEDS ORDERED: ACETAMINOPHEN 325 MG TABLET PO PRN (19:45)
[2022-07-02] MEDS ORDERED: ONDANSETRON 4 MG/2 ML (SDV) Z0FRAN IV PRN (19:45)
[2022-07-02] MEDS ORDERED: BISACODYL 10 MG SUPP (DULCOLAX) PR PRN (19:45)
[2022-07-02] MEDS ORDERED: ANTACID SUSP 30 ML UDC (MYLANTA) PO PRN (19:45)
[2022-07-02] MEDS ORDERED: morphine INJ 4 MG/ML 1 ML (VIAL/SYRINGE) IV PRN (19:45)
[2022-07-02] MEDS ORDERED: MILK OF MAGNESIA 400 MG/5 ML 30 ML UDC PO PRN (19:45)
[2022-07-02 20:00] VITALS: BP 139/105
[2022-07-02] MEDS ORDERED: morphine INJ 4 MG/ML 1 ML (VIAL/SYRINGE) ONE (20:15)
[2022-07-02] MEDS ORDERED: ACETAMINOPHEN 500 MG TAB (TYLENOL) ONE (20:16)
[2022-07-02] MEDS ORDERED: diphenhydrAMINE 50 MG/ML INJ (BENADRYL) ONE (20:16)
[2022-07-02] MEDS: DOCUSATE SODIUM 100 MG (COLACE) CAP PO SCH (21:35)
[2022-07-02] MEDS: SENNOSIDES 8.6 MG (SENOKOT) TAB PO SCH (21:35)
[2022-07-02 21:44] VITALS: BP 147/103
[2022-07-03] VITALS (8 sets, daily range): BP systolic 108–155; BP diastolic 67–117
[2022-07-03] MEDS: diphenhydrAMINE 50 MG/ML INJ (BENADRYL) IVP PRN ×4 (00:33→20:21)
[2022-07-03] MEDS: morphine INJ 4 MG/ML 1 ML (VIAL/SYRINGE) IV PRN ×2 (02:52→07:39)
[2022-07-03 05:03] LABS: BASOPHILS # (AUTO) 0.1 10^3/uL (0.0-0.1); BASOPHILS % (AUTO) 1 % (0-10); EOSINOPHILS # (AUTO) 0.5 10^3/uL (0.0-0.3); EOSINOPHILS % (AUTO) 5 % (0-10); HEMATOCRIT 45 % (40-54); HEMOGLOBIN 13.6 g/dL (13.3-17.7); LYMPHOCYTES # (AUTO) 1.6 10^3/uL (1.0-4.0); LYMPHOCYTES % (AUTO) 16 % (12-44); MEAN CORPUSCULAR HEMOGLOBIN 27 pg (25-34); MEAN CORPUSCULAR HGB CONC 31 g/dL (32-36); MEAN CORPUSCULAR VOLUME 88 fL (80-99); MEAN PLATELET VOLUME 11.7 fL (9.0-12.2); MONOCYTES # (AUTO) 1.1 10^3/uL (0.0-1.0); MONOCYTES % (AUTO) 10 % (0-12); NEUTROPHILS # (AUTO) 7.1 10^3/uL (1.8-7.8); NEUTROPHILS % (AUTO) 68 % (42-75); PLATELET COUNT 200 10^3/uL (130-400); WHITE BLOOD COUNT 10.3 10^3/uL (4.3-11.0)
[2022-07-03 05:22] LABS: BILIRUBIN,TOTAL 1.3 MG/DL (0.1-1.0); CALCIUM 9.7 MG/DL (8.5-10.1); CREATININE SERUM 1.32 MG/DL (0.60-1.30); POTASSIUM 4.2 MMOL/L (3.6-5.0); TOTAL PROTEIN 7.7 GM/DL (6.4-8.2)
[2022-07-03] MEDS: FUROSEMIDE 40 MG/4 ML INJ (LASIX) IVP SCH ×2 (06:57→17:19)
--- NOTE | 2022-07-03 07:53 | History & Physical-Hospitalist ---
History of Present Illness HPI/Chief Complaint Chief complaint: Shortness of breath HPI: This is a 42-year-old male who is undergoing drug rehab treatment at [facility] and history of meth and multiple other illicit drugs who presented to the ER with shortness of breath found to have volume overload and cardiology was consulted. Currently he is doing much better after diuresis. Pain from neck swelling is alleviated by IV pain medication. Source: patient Exam Limitations: no limitations Date Seen 07/03/22 Time Seen by a Provider: 11:00 Attending Physician [facility] PCP Admitting Physician: Erin Parsons DO Attending Physician: Erin Parsons DO Referring Physician Date of Admission Jul 02, 2022 at 17:53 Home Medications & Allergies Home Medications Reviewed patient Home Medication Reconciliation performed by pharmacy medication reconciliations neurophysiological technician and/or nursing. Patients Allergies have been reviewed. Allergies Allergies Coded Allergies Penicillins (Verified Allergy, Unknown, 11/09/20) Past Dogphxe-Rsyxsy-Zamoom Hx Patient Social History Marrital Status: single Employed/Student: unemployed Tobacco Use?: Yes Tobacco type used: Cigarettes Smoking Status: Current Everyday Smoker Substance use?: Yes Substance type: Methamphetamine, Marijuana Substance frequency: Once in a while Alcohol Use?: No Pt feels they are or have been: No Immunizations Up To Date Date of Influenza Vaccine: Aug 09, 2020 First/Initial COVID19 Vaccinat: N/A Second COVID19 Vaccination Edinson: N/A Tetanus Booster (TDap): Unknown Hepatitis A: No Hepatitis B: No Current Status Communicates: Verbally Primary Language: Barbadian Preferred Spoken Language: Barbadian Is interpretation needed?: No Past Medical History Surgeries: Abdominal, Appendectomy Atrial Fibrillation, Cardiomyopathy, High Cholesterol, Hypertension Gastroesophageal Reflux Blood Disorders: No AF Meth use Family Medical History No Pertinent Family Hx SOCIAL HISTORY: -ETOH--REGULAR USE -DRUGS--METHAMPHETAMINES -SMOKES 1 PPD PAST SURGICAL HISTORY: -APPENDECTOMY -HERNIA REPAIR -CARDIOVERSIONS ECHOCARDIOGRAM 11/13/20--EF 30-35%, NO REGIONAL WALL MOTION ABNORMALITIES. EXTREME NON-COMPLIANCE IN ALL ASPECTS OF CARE Review of Systems Constitutional: see HPI Respiratory: short of breath Physical Exam Physical Exam Vital Signs Vital Signs - First Documented 07/02/22 07/03/22 13:04 00:52 Temp 36.4 Pulse 67 Resp 22 B/P (MAP) 110/80 (90) Pulse Ox 95 O2 Delivery Room Air O2 Flow Rate 2.00 Capillary Refill : Less Than 3 Seconds Height, Weight, BMI Height: '" Weight: lbs. oz. kg; 31.93 BMI Method: General Appearance: Anxious, Chronically ill, Obese Eyes: Right Eye Normal Inspection, Right Eye PERRL HEENT: PERRL/EOMI, Normal ENT Inspection, Pharynx Normal, Moist Mucous Membranes Neck: Full Range of Motion, Normal Inspection, Non Tender Respiratory: Chest Non Tender, Lungs Clear, No Accessory Muscle Use, No Respiratory Distress, Decreased Breath Sounds Cardiovascular: Regular Rate, Rhythm, No Edema, No Gallop, No JVD, No Murmur, Normal Peripheral Pulses Gastrointestinal: Normal Bowel Sounds, No Organomegaly, No Pulsatile Mass, Non Tender, Soft Back: Normal Inspection, No CVA Tenderness, No Vertebral Tenderness Extremity: Normal Capillary Refill, Normal Inspection, Normal Range of Motion, Non Tender, No Calf Tenderness, No Pedal Edema Neurologic/Psychiatric: Alert, Oriented x3, No Motor/Sensory Deficits, Normal Mood/Affect Skin: Normal Color, Warm/Dry Lymphatic: No Adenopathy Results Results/Procedures Labs Laboratory Tests 07/02/22 13:06 07/03/22 04:46 07/04/22 04:17 Patient resulted labs reviewed. Assessment/Plan Admission Diagnosis Assessment: Acute exacerbation of congestive heart failure Currently in drug rehab at [facility] History of illicit drugs especially meth for 20 years Smoker Plan: Diuresis Cardiology consult appreciated Admission Status: Inpatient Order (span 2 midnights) Reason for Inpatient Admission: Heart failure with history of drug abuse Diagnosis/Problems Diagnosis/Problems (1) NICM (nonischemic cardiomyopathy) Status: Chronic (2) Acute on chronic congestive heart failure Status: Acute Qualifiers: Heart failure type: systolic Qualified Codes: I50.23 - Acute on chronic systolic (congestive) heart failure Clinical Quality Measures AMI/AHF: ASA po Prior to arrival: ERIN Maxwell DO Jul 03, 2022 07:53
[2022-07-03] MEDS: DOCUSATE SODIUM 100 MG (COLACE) CAP PO SCH ×2 (08:41→20:18)
[2022-07-03] MEDS: SENNOSIDES 8.6 MG (SENOKOT) TAB PO SCH ×2 (08:41→20:18)
[2022-07-03] MEDS ORDERED: PANTOPRAZOLE 40 MG (PROTONIX) TAB PO NR (09:30)
[2022-07-03] MEDS ORDERED: meTOproloL SUCCINATE 50 MG (TOPROL XL) TAB PO NR (09:30)
--- NOTE | 2022-07-03 09:32 | Consultation-Cardiology ---
HPI-Cardiology Cardiology Consultation: Date of Consultation 07/03/22 Date of Admission 07/03/22 Attending Physician Vancleve/Count Includes [facility] Admitting Physician Admitting Physician: Erin Parsons DO Attending Physician: Erin Parsons DO Consulting Physician DONAVAN RODRIGUEZ JR, MD HPI: Time Seen by a Provider: 09:26 Chief Complaint: REASON FOR CONSULTATION: Heart failure and chest pain. I had the pleasure of seeing Carlos on the cardiac stepdown unit at [facility] in [place], [place] today. He is well-known to our service and follows with one of my partners. He has a history of paroxysmal/persistent atrial fibrillation, mild cardiomyopathy with chronic heart failure with reduced ejection fraction, hypertension, and polysubstance abuse. Last week he started using marijuana again. He was also using alcohol and methamphetamines. About 4 days ago he admitted himself to inpatient drug treatment in [place]. Then for the past few days he has been having hot flashes. He has also been having increasing dyspnea on exertion as well as paroxysmal nocturnal dyspnea and ortho pnea. He has also been getting some pain in his neck as well as his mid sternal area and down into his upper abdomen. Yesterday he told the staff at the rehab facility who brought him to the emergency room for further evaluation. He states that after receiving intravenous furosemide in the emergency room, his breathing is starting to improve but is not completely back to normal. His neck still hurts. He was also having some abdominal bloating but this has started to improve after the diuretic. He has chronic, intermittent palpitations due to his atrial fibrillation but these are unchanged. He denies lightheadedness, syncope, or ankle edema. Because of his cardiac history, a cardiology consultation was requested. Certain portions of this document may have been dictated utilizing voice recognition technology. Inherent to this technology, typographical and grammatical errors may exist. As much as I am diligent to identify and correct these mistakes, some errors may remain in the document. Review of Systems-Cardiology Review of Systems Other comments Review of 10 organ systems is as per the history of present illness, otherwise negative. IYQ-Dghyig-Izuodl Hx Patient Social History Smoking Status: Current Everyday Smoker 2nd Hand Smoke Exposure: Yes Have you traveled recently?: No Alcohol Use?: No Substance type: Methamphetamine, Marijuana Pt feels they are or have been: No Tobacco type used: Cigarettes Immunizations Up To Date Tetanus Booster (TDap): Unknown Date of Influenza Vaccine: Aug 09, 2020 Past Medical History PMH As described under Assessment. Family Medical History Family Medical History: He states his father and brother both had hypertrophic cardiomyopathy. They both from the condition. His brother actually had a heart transplant and then . Allergies and Home Medications Allergies Coded Allergies: Penicillins (Verified Allergy, Unknown, 11/09/20) Patient Home Medication List Home Medication List Reviewed: Yes Acetaminophen (Acetaminophen ER) 650 Mg Tablet.er, 650 MG PO TID PRN for PAIN- MILD (1-4) Prescribed by: Chintan Sanchez on 03/26/22 1451 Albuterol Sulfate (Proair Hfa) 1 Puff Puff, 2 PUFF IH Q4H Prescribed by: Chintan Sanchez on 03/26/22 1451 Amiodarone HCl (Amiodarone HCl) 200 Mg Tablet, 200 MG PO BID Prescribed by: JB VALDEZ on 10/14/21 1352 Apixaban (Eliquis) 5 Mg Tablet, 5 MG PO BID Prescribed by: JB VALDEZ on 10/14/21 1352 Captopril (Captopril) 25 Mg Tablet, 12.5 MG PO BID Prescribed by: JB VALDEZ on 10/14/21 1352 Furosemide (Furosemide) 40 Mg Tablet, 40 MG PO BID Prescribed by: JB VALDEZ on 10/14/21 1352 Hydroxyzine HCl (Hydroxyzine HCl) 25 Mg Tablet, 25 MG PO HS PRN for INSOMNIA Prescribed by: ALBIN BOJORQUEZ on 12/21/21 1415 Metoprolol Succinate (Metoprolol Succinate) 50 Mg Tab.er.24h, 50 MG PO DAILY Prescribed by: JB VALDEZ on 10/14/21 1352 Potassium Chloride (Klor-Con M20) 20 Meq Tab.er.prt, 20 MEQ PO BID WITH MEALS Prescribed by: JB VALDEZ on 10/14/21 1352 Promethazine/Dextromethorphan (Promethazine-Dm Syrup) 6.25 Mg-15 Mg/5 Ml Syrup, 5 ML PO Q6H PRN for COUGH Prescribed by: Chintan Sanchez on 03/26/22 1451 Venlafaxine HCl (Venlafaxine HCl ER) 75 Mg Cap.er.24h, 75 MG PO DAILY Prescribed by: JB VALDEZ on 10/14/21 1352 Exam Vital Signs Vital Signs Date Time Temp Pulse Resp B/P (MAP) Pulse Ox O2 Delivery O2 Flow Rate FiO2 07/03/22 07:35 36.2 84 12 132/117 (122) 92 Nasal Cannula 2.00 Physical Exam General: Alert. No acute distress. Well nourished and appears stated age. Eye: Extraocular movements are intact. Conjunctivae are clear. There are no xanthelasma. HENT: Normocephalic. Atraumatic. Carotid pulsations 2/2 without bruits. Neck: Jugular venous pressure does not appear elevated. No thyromegaly appreciated. Respiratory: Lungs are clear to auscultation. Respirations are non-labored. Breath sounds are equal. Symmetrical chest wall expansion. Cardiovascular: Normal rate. Irregular rhythm. No murmur. No gallop. Point of maximal impulse is not appear displaced. Good pulses equal in all extremities. No edema. Gastrointestinal: Soft. Normal bowel sounds. Skin: Skin turgor is normal. There is no pallor. Musculoskeletal: No kyphosis or scoliosis appreciated. Neurologic: Alert and oriented to person, place, time. Cranial nerves 3-12 appear grossly intact. The patient has good motor tone strength in the upper and lower extremities bilaterally. Psychiatric: Cooperative. Appropriate mood & affect. Labs Laboratory Tests Test 07/02/22 13:06 07/02/22 13:14 07/02/22 14:30 07/02/22 18:07 Range/Units White Blood Count 12.9 H 4.3-11.0 10^3/uL Red Blood Count 5.12 4.30-5.52 10^6/uL Hemoglobin 13.8 13.3-17.7 g/dL Hematocrit 44 40-54 % Mean Corpuscular Volume 86 80-99 fL Mean Corpuscular Hemoglobin 27 25-34 pg Mean Corpuscular Hemoglobin Concent 31 L 32-36 g/dL Red Cell Distribution Width 18.0 H 10.0-14.5 % Platelet Count 217 130-400 10^3/uL Mean Platelet Volume 11.4 9.0-12.2 fL Immature Granulocyte % (Auto) 0 % Neutrophils (%) (Auto) 72 42-75 % Lymphocytes (%) (Auto) 13 12-44 % Monocytes (%) (Auto) 11 0-12 % Eosinophils (%) (Auto) 4 0-10 % Basophils (%) (Auto) 1 0-10 % Neutrophils # (Auto) 9.2 H 1.8-7.8 10^3/uL Lymphocytes # (Auto) 1.7 1.0-4.0 10^3/uL Monocytes # (Auto) 1.4 H 0.0-1.0 10^3/uL Eosinophils # (Auto) 0.5 H 0.0-0.3 10^3/uL Basophils # (Auto) 0.1 0.0-0.1 10^3/uL Immature Granulocyte # (Auto) 0.1 0.0-0.1 10^3/uL Prothrombin Time 15.8 H 12.2-14.7 SEC INR Comment 1.2 0.8-1.4 Activated Partial Thromboplast Time 37 H 24-35 SEC Sodium Level 141 135-145 MMOL/L Potassium Level 4.3 3.6-5.0 MMOL/L Chloride Level 105 98-107 MMOL/L Carbon Dioxide Level 21 21-32 MMOL/L Anion Gap 15 H 5-14 MMOL/L Blood Urea Nitrogen 14 7-18 MG/DL Creatinine 0.86 0.60-1.30 MG/DL Estimat Glomerular Filtration Rate 110 BUN/Creatinine Ratio 16 Glucose Level 84 70-105 MG/DL Calcium Level 9.8 8.5-10.1 MG/DL Corrected Calcium 9.8 8.5-10.1 MG/DL Magnesium Level 1.9 1.6-2.4 MG/DL Total Bilirubin 1.2 H 0.1-1.0 MG/DL Aspartate Amino Transf (AST/SGOT) 44 H 5-34 U/L Alanine Aminotransferase (ALT/SGPT) 39 0-55 U/L Alkaline Phosphatase 240 H 40-136 U/L Myoglobin 59.0 10.0-92.0 NG/ML Troponin I < 0.028 < 0.028 <0.028 NG/ML C-Reactive Protein High Sensitivity 0.78 H 0.00-0.50 MG/DL B-Type Natriuretic Peptide 1393.6 H <100.0 PG/ML Total Protein 7.5 6.4-8.2 GM/DL Albumin 4.0 3.2-4.5 GM/DL Lipase 14 8-78 U/L Serum Alcohol < 10 <10 MG/DL Urine Opiates Screen NEGATIVE NEGATIVE Urine Oxycodone Screen NEGATIVE NEGATIVE Urine Methadone Screen NEGATIVE NEGATIVE Urine Propoxyphene Screen NEGATIVE NEGATIVE Urine Barbiturates Screen NEGATIVE NEGATIVE Ur Tricyclic Antidepressants Screen NEGATIVE NEGATIVE Urine Phencyclidine Screen NEGATIVE NEGATIVE Urine Amphetamines Screen NEGATIVE NEGATIVE Urine Methamphetamines Screen NEGATIVE NEGATIVE Urine Benzodiazepines Screen POSITIVE H NEGATIVE Urine Cocaine Screen NEGATIVE NEGATIVE Urine Cannabinoids Screen POSITIVE H NEGATIVE Influenza Type A (RT-PCR) Not Detected Not Detecte Influenza Type B (RT-PCR) Not Detected Not Detecte SARS-CoV-2 RNA (RT-PCR) Not Detected Not Detecte Test 07/03/22 04:46 Range/Units White Blood Count 10.3 4.3-11.0 10^3/uL Red Blood Count 5.06 4.30-5.52 10^6/uL Hemoglobin 13.6 13.3-17.7 g/dL Hematocrit 45 40-54 % Mean Corpuscular Volume 88 80-99 fL Mean Corpuscular Hemoglobin 27 25-34 pg Mean Corpuscular Hemoglobin Concent 31 L 32-36 g/dL Red Cell Distribution Width 18.2 H 10.0-14.5 % Platelet Count 200 130-400 10^3/uL Mean Platelet Volume 11.7 9.0-12.2 fL Immature Granulocyte % (Auto) 0 % Neutrophils (%) (Auto) 68 42-75 % Lymphocytes (%) (Auto) 16 12-44 % Monocytes (%) (Auto) 10 0-12 % Eosinophils (%) (Auto) 5 0-10 % Basophils (%) (Auto) 1 0-10 % Neutrophils # (Auto) 7.1 1.8-7.8 10^3/uL Lymphocytes # (Auto) 1.6 1.0-4.0 10^3/uL Monocytes # (Auto) 1.1 H 0.0-1.0 10^3/uL Eosinophils # (Auto) 0.5 H 0.0-0.3 10^3/uL Basophils # (Auto) 0.1 0.0-0.1 10^3/uL Immature Granulocyte # (Auto) 0.0 0.0-0.1 10^3/uL Sodium Level 138 135-145 MMOL/L Potassium Level 4.2 3.6-5.0 MMOL/L Chloride Level 101 98-107 MMOL/L Carbon Dioxide Level 23 21-32 MMOL/L Anion Gap 14 5-14 MMOL/L Blood Urea Nitrogen 19 H 7-18 MG/DL Creatinine 1.32 H 0.60-1.30 MG/DL Estimat Glomerular Filtration Rate 69 BUN/Creatinine Ratio 14 Glucose Level 123 H 70-105 MG/DL Calcium Level 9.7 8.5-10.1 MG/DL Corrected Calcium 9.7 8.5-10.1 MG/DL Total Bilirubin 1.3 H 0.1-1.0 MG/DL Aspartate Amino Transf (AST/SGOT) 41 H 5-34 U/L Alanine Aminotransferase (ALT/SGPT) 37 0-55 U/L Alkaline Phosphatase 245 H 40-136 U/L Total Protein 7.7 6.4-8.2 GM/DL Albumin 4.0 3.2-4.5 GM/DL Triglycerides Level 89 <150 MG/DL Cholesterol Level 170 < 200 MG/DL LDL Cholesterol Direct 132 H 1-129 MG/DL VLDL Cholesterol 18 5-40 MG/DL HDL Cholesterol 37 L 40-60 MG/DL Radiology Echocardiogram from 04/26/2022 done as an outpatient showed normal left ventricular chamber size with borderline concentric hypertrophy. There was mild left ventricular systolic dysfunction with an estimated ejection fraction of 40- 45%. The diastolic function was not reported. There was severe right ventricular systolic dysfunction with a TAPSE of 0.9 cm. There was biatrial enlargement. There was moderate mitral regurgitation. The estimated pulmonary artery systolic pressure was 45-50 mmHg. ECG Impression ECG Comment Electrocardiogram from the emergency room on 07/02/2022 shows atrial fibrillation/flutter with a controlled ventricular rate with diffuse repolarization abnormality. QT was reported to be prolonged but the computerized calculation was not correct. Diagnosis/Problems Diagnosis/Problems (1) Chest pain Status: Resolved Assessment & Plan: I am not entirely what to make of his chest discomfort. He had 2 undetectable troponin levels. He has chronic ST changes on his electrocardiogram. The majority of his discomfort seems to be localized to his neck. We had previously discussed an ischemic evaluation but until he can be consistently abstinence from illicit substances, he is not a good candidate for an invasive ischemic evaluation. Therefore, I do not see any utility to having him undergo a nonischemic evaluation. I would suggest placing him on a proton pump inhibitor in the event some of his chest discomfort could be related to esophageal reflux disease. Resolution Date/Time: 10/15/21 @ 14:07 (2) Acute on chronic HFrEF (heart failure with reduced ejection fraction) Assessment & Plan: His BNP level is elevated and he has a pleural effusion. His symptoms are also consistent with heart failure. I recommend we continue with intravenous diuretic but we will need to watch his renal function closely. His creatinine level has risen this morning when compared to admission on 07/02. (3) Hypertensive urgency Assessment & Plan: His blood pressure was markedly elevated in the emergency room but this has improved. I will restart his carvedilol which she was taking at home. He was also is taking spironolactone but I will hold off on giving this until his creatinine stabilizes. (4) Cardiomyopathy Assessment & Plan: His most recent echocardiogram from April 2022 showed mild left ventricular systolic dysfunction. I will resume his carvedilol as above. (5) Persistent atrial fibrillation Status: Chronic Assessment & Plan: He continues to have atrial fibrillation and flutter. He underwent a previous cardioversion earlier this year which was successful but within a few minutes he reverted back to atrial fibrillation. At some point he was on amiodarone but this has been discontinued. Fortunately, his heart rates are usually well controlled with beta-ryan. He is on rivaroxaban for stroke prophylaxis. As with his chest discomfort and abnormal electrocardiogram, he needs to be abstinent from illicit substances before we can aggressively treat to the atrial fibrillation. Otherwise, he could put himself at increased risk of a side effect due to antiarrhythmic drugs. (6) Primary hypertension Assessment & Plan: Continue carvedilol. (7) Abnormal ECG Status: Acute Assessment & Plan: He has had intermittent ST changes on his electrocardiogram but due to his illicit drug use, he is not a good candidate for an ischemic evaluation as noted above. (8) Acute kidney injury Status: Resolved Assessment & Plan: His creatinine was normal on admission but has started to rise. This may be related to the diuretic. We will need to watch this closely. Resolution Date/Time: 10/12/21 @ 20:34 (9) Polysubstance abuse Status: Acute Assessment & Plan: As above, he needs to be consistently abstinent from illicit substances or it will be difficult to manage his cardiac conditions effectively. (10) Cigarette smoker Status: Chronic Assessment & Plan: He has been smoking just a couple of cigarettes today and is working on quitting. Problem Qualifiers (1) Chest pain: Chest pain type: unspecified Qualified Codes: R07.9 - Chest pain, unspecified DONAVAN RODRIGUEZ JR, MD Jul 03, 2022 09:32
[2022-07-03] MEDS ORDERED: CARV3.122 PO (10:02)
[2022-07-03] MEDS ORDERED: OLN5T PO (10:02)
[2022-07-03] MEDS ORDERED: SERT-413 PO (10:02)
[2022-07-03] MEDS ORDERED: ROPI0.5T4 PO (10:02)
[2022-07-03] MEDS ORDERED: SPIR25TA5 PO (10:02)
[2022-07-03] MEDS ORDERED: HYDR-700 PO (10:02)
[2022-07-03] MEDS ORDERED: MIRT-68 PO (10:02)
[2022-07-03] MEDS ORDERED: FURO40TA4 PO (10:02)
[2022-07-03] MEDS ORDERED: GBPN600T PO (10:02)
[2022-07-03] MEDS: morphine IMMEDIATE RELEASE 15 MG TABLET PO PRN ×3 (11:55→20:18)
[2022-07-03] MEDS: diphenhydrAMINE 25 MG TAB (BENADRYL) PO PRN (11:55)
[2022-07-03] MEDS: GABAPENTIN 600 MG (NEURONTIN) TAB PO SCH ×2 (12:41→20:18)
[2022-07-03] MEDS: RIVAROXABAN 20 MG TABLET (XARELTO) PO SCH (17:19)
[2022-07-03] MEDS: hydrOXYzine (VISTARIL/ATARAX) 25 MG capsule/tablet PO PRN (17:49)
[2022-07-04 04:00] VITALS: BP 104/54
[2022-07-04 04:25] LABS: BASOPHILS # (AUTO) 0.1 10^3/uL (0.0-0.1); BASOPHILS % (AUTO) 1 % (0-10); EOSINOPHILS # (AUTO) 0.5 10^3/uL (0.0-0.3); EOSINOPHILS % (AUTO) 6 % (0-10); HEMATOCRIT 43 % (40-54); HEMOGLOBIN 13.1 g/dL (13.3-17.7); LYMPHOCYTES # (AUTO) 1.6 10^3/uL (1.0-4.0); LYMPHOCYTES % (AUTO) 16 % (12-44); MEAN CORPUSCULAR HEMOGLOBIN 27 pg (25-34); MEAN CORPUSCULAR HGB CONC 31 g/dL (32-36); MEAN CORPUSCULAR VOLUME 87 fL (80-99); MEAN PLATELET VOLUME 11.5 fL (9.0-12.2); MONOCYTES % (AUTO) 10 % (0-12); NEUTROPHILS # (AUTO) 6.5 10^3/uL (1.8-7.8); NEUTROPHILS % (AUTO) 67 % (42-75); PLATELET COUNT 175 10^3/uL (130-400); WHITE BLOOD COUNT 9.6 10^3/uL (4.3-11.0)
[2022-07-04 04:47] LABS: ALBUMIN 3.8 GM/DL (3.2-4.5); BILIRUBIN,TOTAL 1.3 MG/DL (0.1-1.0); CALCIUM 9.4 MG/DL (8.5-10.1); CREATININE SERUM 1.06 MG/DL (0.60-1.30); POTASSIUM 4.2 MMOL/L (3.6-5.0); TOTAL PROTEIN 7.2 GM/DL (6.4-8.2)
[2022-07-04] MEDS: diphenhydrAMINE 25 MG TAB (BENADRYL) PO PRN ×3 (04:52→17:43)
[2022-07-04] MEDS: morphine IMMEDIATE RELEASE 15 MG TABLET PO PRN ×3 (04:52→17:43)
[2022-07-04] MEDS: FUROSEMIDE 40 MG/4 ML INJ (LASIX) IVP SCH ×2 (06:36→17:29)
--- NOTE | 2022-07-04 06:56 | Progress Note - Hospitalist ---
Subjective HPI/CC On Admission Date Seen by Provider: Jul 04, 2022 Time Seen by Provider: 11:00 Chief complaint: Shortness of breath HPI: This is a 42-year-old male who is undergoing drug rehab treatment at [facility] and history of meth and multiple other illicit drugs who presented to the ER with shortness of breath found to have volume overload and cardiology was consulted. Currently he is doing much better after diuresis. Pain from neck swelling is alleviated by IV pain medication. Subjective/Events-last exam Chest pain continues Volume overload improved No ACS per Cardiology Lidocaine patch added Moving to 4th floor DC tomorrow to [facility] Review of Systems General: Fatigue, Malaise Pulmonary: Dyspnea Cardiovascular: Chest Pain Objective Exam Vital Signs Vital Signs Date Time Temp Pulse Resp B/P (MAP) Pulse Ox O2 Delivery O2 Flow Rate FiO2 07/04/22 13:52 36.0 76 20 115/80 (92) 92 Room Air 07/04/22 08:38 1.00 Capillary Refill : Less Than 3 Seconds General Appearance: No Apparent Distress, WD/WN, Chronically ill Respiratory: Lungs Clear Cardiovascular: Regular Rate, Rhythm Neurologic/Psychiatric: Alert, Oriented x3, No Motor/Sensory Deficits, Normal Mood/Affect Results/Procedures Lab Laboratory Tests 07/04/22 04:17 Patient resulted labs reviewed. Assessment/Plan Assessment and Plan Assess & Plan/Chief Complaint Assessment: Acute exacerbation of congestive heart failure Currently in drug rehab at [facility] History of illicit drugs especially meth for 20 years Smoker Plan: Diuresis Cardiology consult appreciated Diagnosis/Problems Diagnosis/Problems (1) NICM (nonischemic cardiomyopathy) Status: Chronic (2) Acute on chronic congestive heart failure Status: Acute Qualifiers: Heart failure type: systolic Qualified Codes: I50.23 - Acute on chronic systolic (congestive) heart failure Clinical Quality Measures AMI/AHF: ASA po Prior to arrival: BK Maxwell DO Jul 04, 2022 06:56
[2022-07-04] MEDS ORDERED: meTOproloL SUCCINATE 50 MG (TOPROL XL) TAB PO SCH (09:00)
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
[2022-07-04] MEDS: MIRTAZAPINE 15 MG (REMERON) TAB PO SCH (09:37)
[2022-07-04] MEDS: SERTRALINE 50 MG (ZOLOFT) TABLET PO SCH (09:37)
[2022-07-04] MEDS: SPIRONOLACTONE 25 MG (ALDACTONE) TAB PO SCH (09:37)
[2022-07-04] MEDS: SENNOSIDES 8.6 MG (SENOKOT) TAB PO SCH ×2 (09:37→20:03)
[2022-07-04] MEDS: OLANZapine 2.5 MG (ZyPREXA) TAB PO SCH (09:38)
[2022-07-04] MEDS: GABAPENTIN 600 MG (NEURONTIN) TAB PO SCH ×3 (09:38→20:04)
[2022-07-04] MEDS: DOCUSATE SODIUM 100 MG (COLACE) CAP PO SCH ×2 (09:38→20:04)
[2022-07-04] MEDS: rOPINIRole 0.25 MG (REQUIP) TAB PO SCH (09:38)
[2022-07-04] MEDS: PANTOPRAZOLE 40 MG (PROTONIX) TAB PO SCH (09:38)
[2022-07-04] MEDS: LIDOCAINE 4% (SALONPAS) PATCH TOP SCH (10:42)
[2022-07-04] MEDS ORDERED: LACTULOSE SYRUP 10GM/15ML (ENULOSE) 30ML UDC PO NR (12:00)
[2022-07-04] MEDS ORDERED: SENNA W/DOCUSATE (SENOKOT S) TABLET PO NR (12:00)
[2022-07-04] MEDS ORDERED: BISACODYL 10 MG SUPP (DULCOLAX) PR NR (12:00)
[2022-07-04 12:37] VITALS: BP 108/72
[2022-07-04 13:52] VITALS: BP 115/80
[2022-07-04 15:30] VITALS: BP 115/68
[2022-07-04] MEDS: RIVAROXABAN 20 MG TABLET (XARELTO) PO SCH (17:29)
[2022-07-04 19:57] VITALS: BP 125/80
[2022-07-04] MEDS: LIDOCAINE PATCH REMOVAL TP SCH (20:07)
[2022-07-04 23:42] VITALS: BP 131/84
[2022-07-05] MEDS: diphenhydrAMINE 25 MG TAB (BENADRYL) PO PRN ×3 (01:35→20:25)
[2022-07-05] MEDS: morphine IMMEDIATE RELEASE 15 MG TABLET PO PRN ×5 (01:35→23:26)
[2022-07-05 04:00] VITALS: BP 108/67
[2022-07-05 05:36] LABS: BASOPHILS % (AUTO) 0 % (0-10); EOSINOPHILS # (AUTO) 0.4 10^3/uL (0.0-0.3); EOSINOPHILS % (AUTO) 4 % (0-10); HEMATOCRIT 43 % (40-54); HEMOGLOBIN 13.2 g/dL (13.3-17.7); LYMPHOCYTES % (AUTO) 8 % (12-44); MEAN CORPUSCULAR HEMOGLOBIN 27 pg (25-34); MEAN CORPUSCULAR HGB CONC 31 g/dL (32-36); MEAN CORPUSCULAR VOLUME 87 fL (80-99); MEAN PLATELET VOLUME 12.4 fL (9.0-12.2); MONOCYTES % (AUTO) 9 % (0-12); NEUTROPHILS # (AUTO) 9.3 10^3/uL (1.8-7.8); NEUTROPHILS % (AUTO) 79 % (42-75); PLATELET COUNT 172 10^3/uL (130-400); WHITE BLOOD COUNT 11.7 10^3/uL (4.3-11.0)
[2022-07-05 06:01] LABS: ALBUMIN 3.8 GM/DL (3.2-4.5); BILIRUBIN,TOTAL 1.6 MG/DL (0.1-1.0); CALCIUM 9.6 MG/DL (8.5-10.1); POTASSIUM 4.3 MMOL/L (3.6-5.0); TOTAL PROTEIN 7.2 GM/DL (6.4-8.2)
[2022-07-05] MEDS: FUROSEMIDE 40 MG/4 ML INJ (LASIX) IVP SCH (06:32)
[2022-07-05] MEDS: SENNOSIDES 8.6 MG (SENOKOT) TAB PO SCH ×2 (07:59→20:24)
[2022-07-05 08:00] VITALS: BP 122/79
[2022-07-05] MEDS: OLANZapine 2.5 MG (ZyPREXA) TAB PO SCH (08:00)
[2022-07-05] MEDS: DOCUSATE SODIUM 100 MG (COLACE) CAP PO SCH ×2 (08:00→20:24)
[2022-07-05] MEDS: SPIRONOLACTONE 25 MG (ALDACTONE) TAB PO SCH (08:00)
[2022-07-05] MEDS: PANTOPRAZOLE 40 MG (PROTONIX) TAB PO SCH (08:00)
[2022-07-05] MEDS: SERTRALINE 50 MG (ZOLOFT) TABLET PO SCH (08:00)
[2022-07-05] MEDS: GABAPENTIN 600 MG (NEURONTIN) TAB PO SCH ×3 (08:00→20:23)
[2022-07-05] MEDS: MIRTAZAPINE 15 MG (REMERON) TAB PO SCH (08:00)
[2022-07-05] MEDS: rOPINIRole 0.25 MG (REQUIP) TAB PO SCH (08:00)
[2022-07-05] MEDS: LIDOCAINE 4% (SALONPAS) PATCH TOP SCH (08:01)
[2022-07-05] MEDS ORDERED: FURO40TA4 PO (09:02)
[2022-07-05] MEDS ORDERED: CARV3.122 PO (09:02)
[2022-07-05] MEDS ORDERED: HYDR50TA76 PO (09:02)
--- NOTE | 2022-07-05 09:40 | Progress Note - Cardiology ---
Cardiology SOAP Progress Note Subjective: Gen malaise Shortness of breath has improved Report gen abd and chest discomfort. Not able to describe it any detail. He feel s it is due to constipation Denies focal weakness Denies n/v Objective: I&O/Vital Signs 07/04/22 07/05/22 07/05/22 07/05/22 23:42 04:00 07:58 08:00 Temp 36.2 36.5 36.8 Pulse 78 69 72 Resp 20 16 18 B/P (MAP) 131/84 (100) 108/67 (81) 122/79 (93) Pulse Ox 93 96 93 O2 Delivery Room Air Room Air Nasal Cannula Room Air O2 Flow Rate 1.00 07/05/22 00:00 Intake Total 960 ml Output Total 850 ml Balance 110 ml Constitutional: AAO x 3, well-developed, well-nourished Respiratory: No accessory muscle use; other (fair to good air entry on both sides) Cardiovascular: regular rate-rhythm, S1 and S2, systolic murmur (soft JEFFREY at card base) Gastrointestional: No tender; distended; No guarding, No rebound; audible bowel sounds Extremities: No clubbing, No cyanosis, No significant edema Neurologic/Psychiatric: oriented x 3, other (moves all limbs equally) Skin: No rash on exposed areas, No ulcerations on exposed areas Results/Procedures: Labs Laboratory Tests 07/05/22 05:00: White Blood Count 11.7H, Red Blood Count 4.94, Hemoglobin 13.2L, Hematocrit 43, Mean Corpuscular Volume 87, Mean Corpuscular Hemoglobin 27, Mean Corpuscular Hemoglobin Concent 31L, Red Cell Distribution Width 18.1H, Platelet Count 172, Mean Platelet Volume 12.4H, Immature Granulocyte % (Auto) 0, Neutrophils (%) (Auto) 79H, Lymphocytes (%) (Auto) 8L, Monocytes (%) (Auto) 9, Eosinophils (%) (Auto) 4, Basophils (%) (Auto) 0, Neutrophils # (Auto) 9.3H, Lymphocytes # (Auto) 1.0, Monocytes # (Auto) 1.0, Eosinophils # (Auto) 0.4H, Basophils # (Auto) 0.0, Immature Granulocyte # (Auto) 0.1, Sodium Level 139, Potassium Level 4.3, Chloride Level 100, Carbon Dioxide Level 24, Anion Gap 15H, Blood Urea Nitrogen 15, Creatinine 1.00, Estimat Glomerular Filtration Rate 96, BUN/Creatinine Ratio 15, Glucose Level 105, Calcium Level 9.6, Corrected Calcium 9.8, Total Bilirubin 1.6H, Aspartate Amino Transf (AST/SGOT) 35H, Alanine Aminotransferase (ALT/SGPT) 31, Alkaline Phosphatase 255H, Total Protein 7.2, Albumin 3.8 Laboratory Tests 07/04/22 04:17 07/05/22 05:00 A/P: Assessment: Acute on chronic systolic CHF - [facility] of 03-28-[address] Hernandez showed LVEF 40-45%. Mild MR - Echo in April 2022: LVEF 40-45%, biatrial enlargement (moderate), mod MR, PASP 45-50 mmHg Paroxysmal atrial fibrillation with RVR - h/o PAF. Reports h/o ablation in [place] in late 2020 (recurrent since then) - Eliquis for stroke prophylaxis - PHILLIP was done on March 28, [address] Hernandez showing questionable left atrial appendage thrombus. He advised no cardioversion at that time Persistent A Fl since January 2022 - Refuses any further ablation or elec cardioversion NICM - reports a heart cath in [place] (says probably in [place]) in or around 2019 did not show any CAD (unable to provide details or the name of the hospital) Hypertension Hyperlipidemia ETOH abuse - continuing intermittently Methamphetamine/marijuana abuse - continuing intermittently Tobaccoism - cessation has been repeatedly advised Noncompliance with medication and other medical instructions Plan: * Change furosemide to oral * Monitor labs * Advised off tobacco, alcohol, street drugs * Med svce to address constipation Clinical Quality Measures AMI/AHF: ASA po Prior to arrival: SAVI Cheng MD FACP [facility] Jul 05, 2022 09:40
[2022-07-05 12:00] VITALS: BP 116/79
[2022-07-05] MEDS ORDERED: MINERAL OIL ENEMA 133 ML BTL PR NR (12:45)
[2022-07-05 15:48] VITALS: BP 119/77
[2022-07-05] MEDS: RIVAROXABAN 20 MG TABLET (XARELTO) PO SCH (17:48)
[2022-07-05] MEDS: FUROSEMIDE 40 MG (LASIX) TAB PO SCH (17:48)
--- NOTE | 2022-07-05 17:48 | Progress Note ---
Subjective Subjective/Events-last exam Patient states that he is feeling much better but he is having some abdominal pain and has been unable to have a BM since arrival. Tolerating PO diet and ambulation. Review of Systems General: Fatigue Pulmonary: No Dyspnea Cardiovascular: Edema; No: Chest Pain, Palpitations Gastrointestinal: Abdominal Pain, Constipation; No: Nausea, Vomiting Neurological: No: Weakness, Incoordination, Confusion Objective Exam Last Set of Vital Signs Vital Signs Date Time Temp Pulse Resp B/P (MAP) Pulse Ox O2 Delivery O2 Flow Rate FiO2 07/05/22 15:48 37.1 75 20 119/77 (91) 94 Room Air 07/05/22 07:58 1.00 Capillary Refill : Less Than 3 Seconds I&O Intake and Output 07/05/22 00:00 Intake Total 2030 ml Output Total 2525 ml Balance -495 ml Intake Oral 2030 ml Output Urine Total 2525 ml # Voids 1 General: Alert, Oriented X3, Cooperative, No Acute Distress HEENT: Mucous Memb Moist/[place] Lungs: Clear to Auscultation, Normal Air Movement Heart: Regular Rate, No Murmurs Abdomen: Normal Bowel Sounds, Soft, Other (Mild LLQ ttp) Extremities: No Edema, No Tenderness/Swelling Neuro: Normal Speech, Cranial Nerves 3-12 NL Psych/Mental Status: Mental Status NL, Mood NL Results/Procedures Lab Laboratory Tests 07/05/22 05:00: White Blood Count 11.7H, Red Blood Count 4.94, Hemoglobin 13.2L, Hematocrit 43, Mean Corpuscular Volume 87, Mean Corpuscular Hemoglobin 27, Mean Corpuscular Hemoglobin Concent 31L, Red Cell Distribution Width 18.1H, Platelet Count 172, Mean Platelet Volume 12.4H, Immature Granulocyte % (Auto) 0, Neutrophils (%) (Auto) 79H, Lymphocytes (%) (Auto) 8L, Monocytes (%) (Auto) 9, Eosinophils (%) (Auto) 4, Basophils (%) (Auto) 0, Neutrophils # (Auto) 9.3H, Lymphocytes # (Auto) 1.0, Monocytes # (Auto) 1.0, Eosinophils # (Auto) 0.4H, Basophils # (Auto) 0.0, Immature Granulocyte # (Auto) 0.1, Sodium Level 139, Potassium Level 4.3, Chloride Level 100, Carbon Dioxide Level 24, Anion Gap 15H, Blood Urea Nitrogen 15, Creatinine 1.00, Estimat Glomerular Filtration Rate 96, BUN/Creatinine Ratio 15, Glucose Level 105, Calcium Level 9.6, Corrected Calcium 9.8, Total Bilirubin 1.6H, Aspartate Amino Transf (AST/SGOT) 35H, Alanine Aminotransferase (ALT/SGPT) 31, Alkaline Phosphatase 255H, Total Protein 7.2, Albumin 3.8 Assessment/Plan Assessment/Plan (1) Acute on chronic systolic (congestive) heart failure Status: Acute Assessment & Plan: 07/05: Seen by Cardiology over the weekend, Diuresed, not requiring oxygen, at baseline this AM (2) Paroxysmal atrial fibrillation Status: Chronic Assessment & Plan: - Rate controlled on OAC (3) Polysubstance abuse Status: Acute Assessment & Plan: 07/05: Will d/c back to [facility] tomorrow AM (4) Cardiomyopathy Status: Chronic Qualifiers: Qualified Codes: I42.8 - Other cardiomyopathies (5) HTN (hypertension) Status: Chronic Qualifiers: Qualified Codes: I10 - Essential (primary) hypertension (6) HLD (hyperlipidemia) Status: Chronic Qualifiers: Qualified Codes: E78.2 - Mixed hyperlipidemia (7) Constipation Status: Acute Assessment & Plan: 07/05: Continue miralax, will do enema today Qualifiers: Qualified Codes: K59.00 - Constipation, unspecified Clinical Quality Measures AMI/AHF: ASA po Prior to arrival: JACOBY Crisostomo MD Jul 05, 2022 17:48
[2022-07-05 19:42] VITALS: BP 130/84
[2022-07-05] MEDS: LIDOCAINE PATCH REMOVAL TP SCH (20:26)
[2022-07-05] MEDS: hydrOXYzine (VISTARIL/ATARAX) 25 MG capsule/tablet PO PRN (23:26)
[2022-07-06 00:26] VITALS: BP 127/80
[2022-07-06] MEDS: diphenhydrAMINE 50 MG/ML INJ (BENADRYL) IVP PRN (02:00)
[2022-07-06 04:23] VITALS: BP 100/57
[2022-07-06 05:35] LABS: BASOPHILS % (AUTO) 0 % (0-10); EOSINOPHILS # (AUTO) 0.7 10^3/uL (0.0-0.3); EOSINOPHILS % (AUTO) 5 % (0-10); HEMATOCRIT 43 % (40-54); HEMOGLOBIN 13.3 g/dL (13.3-17.7); LYMPHOCYTES # (AUTO) 1.3 10^3/uL (1.0-4.0); LYMPHOCYTES % (AUTO) 10 % (12-44); MEAN CORPUSCULAR HEMOGLOBIN 27 pg (25-34); MEAN CORPUSCULAR HGB CONC 31 g/dL (32-36); MEAN CORPUSCULAR VOLUME 86 fL (80-99); MEAN PLATELET VOLUME 12.6 fL (9.0-12.2); MONOCYTES # (AUTO) 2.2 10^3/uL (0.0-1.0); MONOCYTES % (AUTO) 16 % (0-12); NEUTROPHILS % (AUTO) 68 % (42-75); PLATELET COUNT 178 10^3/uL (130-400); WHITE BLOOD COUNT 13.3 10^3/uL (4.3-11.0)
[2022-07-06 05:50] LABS: ALBUMIN 3.8 GM/DL (3.2-4.5); BILIRUBIN,TOTAL 1.6 MG/DL (0.1-1.0); CALCIUM 9.3 MG/DL (8.5-10.1); CREATININE SERUM 1.02 MG/DL (0.60-1.30); TOTAL PROTEIN 7.4 GM/DL (6.4-8.2)
[2022-07-06] MEDS: FUROSEMIDE 40 MG (LASIX) TAB PO SCH (06:01)
[2022-07-06] MEDS: morphine IMMEDIATE RELEASE 15 MG TABLET PO PRN (06:01)
[2022-07-06 07:27] VITALS: BP 105/69
--- NOTE | 2022-07-06 08:44 | Progress Note - Cardiology ---
Cardiology SOAP Progress Note Objective: I&O/Vital Signs Constitutional: AAO x 3, well-developed, well-nourished Respiratory: No accessory muscle use; other (fair to good air entry on both sides) Cardiovascular: regular rate-rhythm, S1 and S2, systolic murmur (soft JEFFREY at card base) Gastrointestional: No tender; distended; No guarding, No rebound; audible bowel sounds Extremities: No clubbing, No cyanosis, No significant edema Neurologic/Psychiatric: oriented x 3, other (moves all limbs equally) Skin: No rash on exposed areas, No ulcerations on exposed areas Results/Procedures: Labs A/P: Assessment: Acute on chronic systolic CHF - [facility]IP of 03-28-[address] Hernandez showed LVEF 40-45%. Mild MR - Echo in April 2022: LVEF 40-45%, biatrial enlargement (moderate), mod MR, PASP 45-50 mmHg Paroxysmal atrial fibrillation with RVR - h/o PAF. Reports h/o ablation in [place] in late 2020 (recurrent since then) - Eliquis for stroke prophylaxis - PHILLIP was done on March 28, [address] Hernandez showing questionable left atrial appendage thrombus. He advised no cardioversion at that time Persistent A Fl since January 2022 - Refuses any further ablation or elec cardioversion NIC - reports a heart cath in [place] (says probably in [place]) in or around 2019 did not show any CAD (unable to provide details or the name of the hospital) Hypertension Hyperlipidemia ETOH abuse - continuing intermittently Methamphetamine/marijuana abuse - continuing intermittently Tobaccoism - cessation has been repeatedly advised Noncompliance with medication and other medical instructions Elevated T.Bili and Alk Phos - likely secondary to cirrhosis (seen on CTA of the abdomen) - management per medical services Plan: * Change furosemide to oral * Monitor labs * Advised off tobacco, alcohol, street drugs * Med svce to address constipation * Elevated Alk Phos and T. Bili - management per medical services Clinical Quality Measures AMI/AHF: ASA po Prior to arrival: ANN Correa Jul 06, 2022 08:44
[2022-07-06] MEDS: DOCUSATE SODIUM 100 MG (COLACE) CAP PO SCH (08:47)
[2022-07-06] MEDS: rOPINIRole 0.25 MG (REQUIP) TAB PO SCH (08:47)
[2022-07-06] MEDS: SERTRALINE 50 MG (ZOLOFT) TABLET PO SCH (08:47)
[2022-07-06] MEDS: GABAPENTIN 600 MG (NEURONTIN) TAB PO SCH (08:47)
[2022-07-06] MEDS: SPIRONOLACTONE 25 MG (ALDACTONE) TAB PO SCH (08:48)
[2022-07-06] MEDS: SENNOSIDES 8.6 MG (SENOKOT) TAB PO SCH (08:48)
[2022-07-06] MEDS: PANTOPRAZOLE 40 MG (PROTONIX) TAB PO SCH (08:48)
[2022-07-06] MEDS: OLANZapine 2.5 MG (ZyPREXA) TAB PO SCH (08:48)
[2022-07-06] MEDS: LIDOCAINE 4% (SALONPAS) PATCH TOP SCH (08:51)
--- NOTE | 2022-07-06 08:58 | Discharge Summary ---
Diagnosis/Chief Complaint Date of Admission Jul 02, 2022 at 17:53 Date of Discharge 07/06/22 Admission Diagnosis Admission Diagnosis See problem list Discharge Diagnosis See Below Problems/Diagnosis: (1) Acute on chronic systolic (congestive) heart failure Assessment & Plan: 07/05: Seen by Cardiology over the weekend, Diuresed, not requiring oxygen, at baseline this AM Status: Acute (2) Paroxysmal atrial fibrillation Assessment & Plan: - Rate controlled on OAC Status: Chronic (3) Polysubstance abuse Assessment & Plan: 07/05: Will d/c back to [facility] tomorrow AM Status: Acute (4) Cardiomyopathy Qualifiers: Qualified Codes: I42.8 - Other cardiomyopathies Status: Chronic (5) HTN (hypertension) Qualifiers: Qualified Codes: I10 - Essential (primary) hypertension Status: Chronic (6) HLD (hyperlipidemia) Qualifiers: Qualified Codes: E78.2 - Mixed hyperlipidemia Status: Chronic (7) Constipation Assessment & Plan: 07/05: Continue miralax, will do enema today Qualifiers: Qualified Codes: K59.00 - Constipation, unspecified Status: Acute Discharge Summary-Simple/Stand Consultations Dr Bejarano: Cardiology Discharge Physical Examination Allergies: Coded Allergies: Penicillins (Verified Allergy, Unknown, 11/09/20) Vitals & I&Os Vital Sign - Last 12Hours Date Time Temp Pulse Resp B/P (MAP) Pulse Ox O2 Delivery O2 Flow Rate FiO2 07/06/22 07:27 36.1 84 18 105/69 (81) 96 Room Air 07/05/22 07:58 1.00 Intake and Output 07/06/22 00:00 Intake Total 1610 ml Output Total 980 ml Balance 630 ml General Appearance: Alert, Oriented X3, No Acute Distress Respiratory: Clear to Auscultation, Normal Air Movement Cardiovascular: Regular Rate, No Murmurs Abdominal: Normal Bowel Sounds, Soft, Other (diffuse ttp, no rebound or guarding) Extremities: No Edema, No Tenderness/Swelling Neuro: Normal Speech, Strength at 5/5 X4 Ext, Cranial Nerves 3-12 NL Psych/Mental Status: Mental Status NL, Mood NL Hospital Course See final discharge diagnosis. Discharge Instructions to patient/family Please see electronic discharge instructions given to patient. Discharge Medications Reviewed and agree with Discharge Medication list on patient's Discharge Instruction sheet Clinical Quality Measures AMI/AHF: ASA po Prior to arrival: No MATHEUS LINKY R MD Jul 06, 2022 08:58
[2022-07-06] MEDS ORDERED: POLY17PO54 PO (09:00)
[2022-07-06] MEDS ORDERED: PANT40TA52 PO (09:00)
[2022-07-06] MEDS ORDERED: MIRTAZAPINE 15 MG (REMERON) TAB PO SCH (09:00)
[2022-07-06] MEDS ORDERED: RIVA20TA2 PO (09:00)
[2022-07-06] MEDS ORDERED: MTP25TSR PO (09:00)
--- NOTE | 2022-07-06 09:00 | Discharge Summary ---
Discharge [facility] Reconcile Patient Problems Problems Reviewed?: Yes Discharge Medications New, Converted or Re-Newed RX: Transmitted to Pharmacy New Medications: Metoprolol Succinate (Metoprolol Succinate) 25 Mg Tab.er.24h 25 MG PO DAILY, #30 TAB Pantoprazole Sodium (Pantoprazole Sodium) 40 Mg Tablet.dr 40 MG PO DAILY, #30 TAB Polyethylene Glycol 3350 (Polyethylene Glycol 3350) 17 Gram Powd.pack 17 GM PO DAILY PRN for CONSTIPATION-1ST LINE, #30 EACH Rivaroxaban (Xarelto Tablet) 20 Mg Tablet 20 MG PO DAILY@1700, #30 TAB Continued Medications: Furosemide (Furosemide) 40 Mg Tablet 40 MG PO DAILY, TAB Gabapentin (Gabapentin) 600 Mg Tablet 600 MG PO TID, TAB Hydroxyzine HCl (Hydroxyzine HCl) 50 Mg Tablet 50 MG PO TID PRN for ANXIETY, TAB Mirtazapine (Mirtazapine) 15 Mg Tablet 7.5 MG PO DAILY, TAB TAKES OF A (15MG) TABLET Olanzapine (Olanzapine) 5 Mg Tablet 5 MG PO DAILY, TAB Ropinirole HCl (Ropinirole HCl) 0.5 Mg Tablet 0.5 MG PO DAILY, TAB Sertraline HCl (Sertraline HCl) 50 Mg Tablet 50 MG PO DAILY, TAB Spironolactone (Spironolactone) 25 Mg Tablet 25 MG PO DAILY, TAB Discontinued Medications: Carvedilol (Carvedilol) 3.125 Mg Tablet 3.125 MG PO BID, TAB Patient Instructions Goal/Follow Up Appt: 1-2 weeks with PCP, Patient prefers to see Andrae in office Activity & Diet Discharge Diet: Low Sodium Diet, Cardiac Diet Activity as Tolerated: Yes JACOBY LINK MD Jul 06, 2022 09:00
--- NOTE | 2022-07-06 09:56 | Progress Note - Cardiology ---
Cardiology SOAP Progress Note Subjective: Shortness of breath has improved to baseline No cp or palp or syncope No swelling Gen weakness has improved Objective: I&O/Vital Signs 07/06/22 07/06/22 07/06/22 07/06/22 00:26 04:23 07:27 09:19 Temp 37.0 36.4 36.1 Pulse 92 72 84 Resp 20 18 18 B/P (MAP) 127/80 (96) 100/57 (71) 105/69 (81) Pulse Ox 95 93 96 O2 Delivery Room Air Room Air Room Air Room Air 07/06/22 00:00 Intake Total 1610 ml Output Total 980 ml Balance 630 ml Constitutional: AAO x 3, well-developed, well-nourished Respiratory: No accessory muscle use; other (fair to good air entry on both sides) Cardiovascular: regular rate-rhythm, S1 and S2, systolic murmur (soft JEFFREY at card base) Gastrointestional: No tender; distended; No guarding, No rebound; audible bowel sounds Extremities: No clubbing, No cyanosis, No significant edema Neurologic/Psychiatric: oriented x 3, other (moves all limbs equally) Skin: No rash on exposed areas, No ulcerations on exposed areas Results/Procedures: Labs Laboratory Tests 07/06/22 05:03: White Blood Count 13.3H, Red Blood Count 4.95, Hemoglobin 13.3, Hematocrit 43, Mean Corpuscular Volume 86, Mean Corpuscular Hemoglobin 27, Mean Corpuscular Hemoglobin Concent 31L, Red Cell Distribution Width 18.4H, Platelet Count 178, Mean Platelet Volume 12.6H, Immature Granulocyte % (Auto) 1, Neutrophils (%) (Auto) 68, Lymphocytes (%) (Auto) 10L, Monocytes (%) (Auto) 16H, Eosinophils (%) (Auto) 5, Basophils (%) (Auto) 0, Neutrophils # (Auto) 9.0H, Lymphocytes # (Auto) 1.3, Monocytes # (Auto) 2.2H, Eosinophils # (Auto) 0.7H, Basophils # (Auto) 0.0, Immature Granulocyte # (Auto) 0.1, Sodium Level 135, Potassium Level 4.0, Chloride Level 98, Carbon Dioxide Level 25, Anion Gap 12, Blood Urea Nitrogen 15, Creatinine 1.02, Estimat Glomerular Filtration Rate 94, BUN/Creatinine Ratio 15, Glucose Level 101, Calcium Level 9.3, Corrected Calcium 9.5, Total Bilirubin 1.6H, Aspartate Amino Transf (AST/SGOT) 46H, Alanine Aminotransferase (ALT/SGPT) 36, Alkaline Phosphatase 252H, Total Protein 7.4, Albumin 3.8 Laboratory Tests 07/05/22 05:00 07/06/22 05:03 A/P: Assessment: Acute on chronic systolic CHF - [facility]IP of 03-28-[address] Hernandez showed LVEF 40-45%. Mild MR - Echo in April 2022: LVEF 40-45%, biatrial enlargement (moderate), mod MR, PASP 45-50 mmHg Paroxysmal atrial fibrillation with RVR - h/o PAF. Reports h/o ablation in [place] in late 2020 (recurrent since then) - Eliquis for stroke prophylaxis - PHILLIP was done on March 28, [address] Hernandez showing questionable left atrial appendage thrombus. He advised no cardioversion at that time Persistent A Fl since January 2022 - Refuses any further ablation or elec cardioversion NIC - reports a heart cath in [place] (says probably in [place]) in or around 2019 did not show any CAD (unable to provide details or the name of the hospital) Hypertension Hyperlipidemia ETOH abuse - continuing intermittently Methamphetamine/marijuana abuse - continuing intermittently Tobaccoism - cessation has been repeatedly advised Noncompliance with medication and other medical instructions Elevated T.Bili and Alk Phos - likely secondary to cirrhosis (seen on CTA of the abdomen) - management per Medical services Plan: * Continue current regimen * Advised off tobacco, alcohol, street drugs * Elevated Alk Phos and T. Bili - management per Medical services * Outpt f/u advised Clinical Quality Measures AMI/AHF: ASA po Prior to arrival: SAVI Cheng MD FACP [facility] Jul 06, 2022 09:56
[2022-07-06 10:21] VITALS: BP 105/69
== END 2022-07-06 10:21 | disposition short-term general hospital (02) | DRG 291 ==
LOC: EDUNIT# 13:03 → ER 13:06 → CSD 17:53 → 4TH 07-04 13:40
PROVIDERS: ADMIT Internal Medicine; ATTEND Family Medicine
DX: I11.0 Hypertensive heart disease with heart failure (principal); I50.23 Acute on chronic systolic (congestive) heart failure; R18.8 Other ascites; I48.19 Other persistent atrial fibrillation; N17.9 Acute kidney failure, unspecified; I42.8 Other cardiomyopathies; F19.10 Other psychoactive substance abuse, uncomplicated; K59.00 Constipation, unspecified; F17.210 Nicotine dependence, cigarettes, uncomplicated; E78.00 Pure hypercholesterolemia, unspecified; K21.9 Gastro-esophageal reflux disease without esophagitis; Z79.899 Other long term (current) drug therapy; F12.10 Cannabis abuse, uncomplicated; F15.10 Other stimulant abuse, uncomplicated; Z91.14 Patient's other noncompliance with medication regimen; K74.60 Unspecified cirrhosis of liver; F10.10 Alcohol abuse, uncomplicated; I16.0 Hypertensive urgency; I27.20 Pulmonary hypertension, unspecified; I34.0 Nonrheumatic mitral (valve) insufficiency; Z20.822 Contact with and (suspected) exposure to COVID-19
CPT/HCPCS: 36415; 71045; 71275; 74177; 80053; 80061; 80306; 80320; 83690; 83735; 83874; 83880; 84484; 85025; 85610; 85730; 86141; 87636; 93005; 93041; 94760; 96374; 96375; 96376

== ENCOUNTER 2022-08-05 17:44 | Emergency (ER) | payer OTHER ==
[~2022-08-05] VITALS: Ht 180 cm; Wt 103.6 kg
[~2022-08-05 17:44] MED LIST changes: +CARV3.122 PO; +GBPN600T PO; +HYDR50TA76 PO; +MIRT-68 PO; +MTP25TSR PO; +OLN5T PO; +PANT40TA52 PO; +POLY17PO54 PO; +ROPI0.5T4 PO; +SERT-413 PO; +SPIR25TA5 PO
[2022-08-05 18:16] LABS: BILIRUBIN,URINE NEGATIVE (NEGATIVE); CLARITY,URINE CLEAR; COLOR,URINE YELLOW; GLUCOSE, URINE (UA) 3+ (NEGATIVE); KETONES,URINE NEGATIVE (NEGATIVE); LEUKOCYTE ESTERASE ,URINE NEGATIVE (NEGATIVE); NITRITE,URINE NEGATIVE (NEGATIVE); PH,URINE 5.5 (5-9); PROTEIN,URINE TRACE (NEGATIVE)
--- NOTE | 2022-08-05 18:21 | ED Abdominal Pain ---
General Chief Complaint: Abdominal/GI Problems Stated Complaint: LOW ABD PAIN,LOW BACK PAIN Nursing Triage Note: LOWER ABD PAIN THAT GOES INTO HIS RECTUM THAT STARTED YESTERDAY. Source of Information: Patient, Old Records Exam Limitations: No Limitations History of Present Illness Date Seen by Provider: Aug 05, 2022 Time Seen by Provider: 18:08 Initial Comments This 42-year-old gentleman presents to the emergency room with complaints of 2 days of lower abdominal pain that radiates down toward his scrotum and rectum. It is painful to sit, walk, sneeze, or move. He lies flat on the bed with his thigh spread apart for comfort. He describes difficulty urinating and burning with urination. He also reports blood on the toilet paper when he wiped after a bowel movement today. He vomited once secondary to pain. He denies fever. He is on Eliquis for history of A. fib and cardiomyopathy. His last dose was this morning. His primary care provider is Amena Holloway at [facility] and his neurology stroke physician is Dr. Bejarano. Patient later reported noticing a brownish color to his semen raising concern for possible prostatitis. Allergies and Home Medications Allergies Coded Allergies: hydrocodone (Verified Allergy, Severe, ITCHING, 08/05/22) Penicillins (Verified Allergy, Unknown, 11/09/20) Patient Home Medication List Home Medication List Reviewed: Yes Docusate Sodium (Colace) 100 Mg Capsule, 100 MG PO BID Prescribed by: SILVIA CUELLAR on 08/05/222208 Furosemide (Furosemide) 40 Mg Tablet, 40 MG PO DAILY, (Reported) Entered as Reported by: EDER VARGAS on 07/05/22901 Gabapentin (Gabapentin) 600 Mg Tablet, 600 MG PO TID, (Reported) Entered as Reported by: BRAYAN AYERS on 07/03/22 1002 Hydroxyzine HCl (Hydroxyzine HCl) 50 Mg Tablet, 50 MG PO TID PRN for ANXIETY, (Reported) Entered as Reported by: EDER VARGAS on 07/05/22 09 Metoprolol Succinate (Metoprolol Succinate) 25 Mg Tab.er.24h, 25 MG PO DAILY Prescribed by: JACOBY LINK on 07/06/22 0900 Mirtazapine (Mirtazapine) 15 Mg Tablet, 7.5 MG PO DAILY, (Reported) Entered as Reported by: BRAYAN AYERS on 07/03/221001 Olanzapine (Olanzapine) 5 Mg Tablet, 5 MG PO DAILY, (Reported) Entered as Reported by: BRAYAN AYERS on 07/03/221001 Oxycodone HCl/Acetaminophen (Percocet 5-325 mg Tablet) 1 Each Tablet, 1 TAB PO Q4H Prescribed by: SILVIA CUELLAR on 08/05/222208 Pantoprazole Sodium (Pantoprazole Sodium) 40 Mg Tablet.dr, 40 MG PO DAILY Prescribed by: JACOBY LINK on 07/06/22899 Polyethylene Glycol 3350 (Polyethylene Glycol 3350) 17 Gram Powd.pack, 17 GM PO DAILY PRN for CONSTIPATION-1ST LINE Prescribed by: JACOBY LINK on 07/06/22899 Rivaroxaban (Xarelto Tablet) 20 Mg Tablet, 20 MG PO DAILY@1700 Prescribed by: JACOBY LINK on 07/06/22899 Ropinirole HCl (Ropinirole HCl) 0.5 Mg Tablet, 0.5 MG PO DAILY, (Reported) Entered as Reported by: BRAYAN AYERS on 07/03/221001 Sertraline HCl (Sertraline HCl) 50 Mg Tablet, 50 MG PO DAILY, (Reported) Entered as Reported by: BRAYAN AYERS on 07/03/221001 Spironolactone (Spironolactone) 25 Mg Tablet, 25 MG PO DAILY, (Reported) Entered as Reported by: BRAYAN AYERS on 07/03/221001 Sulfamethoxazole/Trimethoprim (Bactrim Ds Tablet) 1 Each Tablet, 1 EACH PO BID Prescribed by: SILVIA CUELLAR on 08/05/222208 Review of Systems Review of Systems Constitutional: no symptoms reported EENTM: No Symptoms Reported Respiratory: No Symptoms Reported Cardiovascular: See HPI Gastrointestinal: See HPI Genitourinary: See HPI Musculoskeletal: no symptoms reported Skin: no symptoms reported Psychiatric/Neurological: No Symptoms Reported Endocrine: No Symptoms Reported Hematologic/Lymphatic: No Symptoms Reported Past Euycdsz-Mpvdyo-Uazuln Hx Patient Social History Tobacco Use?: No Substance use?: No Alcohol Use?: No Immunizations Up To Date Tetanus Booster (TDap): Unknown First/Initial COVID19 Vaccinat: N/A Second COVID19 Vaccination [place]: N/A Third COVID19 Vaccination Date: N/A Past Medical History Surgery/Hospitalization HX: A-FIB, HF, AFLUTTER Surgeries: Yes (HERNIA REPAIR) Abdominal, Appendectomy Respiratory: No Cardiac: Yes (CHF 30-35% EF) Atrial Fibrillation, Cardiomyopathy, High Cholesterol, Hypertension Neurological: No Genitourinary: No Gastrointestinal: Yes Gastroesophageal Reflux Musculoskeletal: No Endocrine: Yes (OBESITY, borderline diabetes) HEENT: No Cancer: No Psychosocial: Yes (SUBSTANCE ABUSE) Integumentary: Yes (TATTOOS) Blood Disorders: No Family Medical History No Pertinent Family Hx SOCIAL HISTORY: -ETOH--REGULAR USE -DRUGS--METHAMPHETAMINES -SMOKES 1 PPD PAST SURGICAL HISTORY: -APPENDECTOMY -HERNIA REPAIR -CARDIOVERSIONS ECHOCARDIOGRAM 11/13/20--EF 30-35%, NO REGIONAL WALL MOTION ABNORMALITIES. EXTREME NON-COMPLIANCE IN ALL ASPECTS OF CARE Physical Exam Vital Signs Vital Signs - First Documented 08/05/22 17:48 Temp 36.5 Pulse 90 Resp 16 B/P (MAP) 141/94 (110) Pulse Ox 95 O2 Delivery Room Air Capillary Refill : Less Than 3 Seconds Height/Weight/BMI Height: '" Weight: lbs. oz. kg; 31.00 BMI Method: General Appearance: WD/WN, mild distress HEENT: normal ENT inspection Neck: normal inspection Respiratory: lungs clear, normal breath sounds, no respiratory distress Cardiovascular: regular rate, rhythm, no edema, systolic murmur Gastrointestinal: soft, distended, tenderness (Throughout the lower abdomen) Rectal: normal rectal tone, heme negative stool; No hemorrhoids, No mass; tenderness (Significant pain when applying pressure to the prostate. Prostate felt relatively firm and large.) Extremities: normal inspection, no pedal edema Male: normal genitalia Neurologic/Psychiatric: orthotic fitter II-XII nml as tested, no motor/sensory deficits, alert, normal mood/affect, oriented x 3 Skin: normal color, warm/dry Procedures/Interventions Date of ETT Placement: Oct 02, 2021 Time of ETT Placement: 142 Progress/Results/Core Measures Results/Orders Lab Results Laboratory Tests Test 08/05/22 18:05 08/05/22 18:08 Range/Units White Blood Count 10.8 4.3-11.0 10^3/uL Red Blood Count 5.45 4.30-5.52 10^6/uL Hemoglobin 14.2 13.3-17.7 g/dL Hematocrit 45 40-54 % Mean Corpuscular Volume 83 80-99 fL Mean Corpuscular Hemoglobin 26 25-34 pg Mean Corpuscular Hemoglobin Concent 31 L 32-36 g/dL Red Cell Distribution Width 18.5 H 10.0-14.5 % Platelet Count 232 130-400 10^3/uL Mean Platelet Volume 11.0 9.0-12.2 fL Immature Granulocyte % (Auto) 1 % Neutrophils (%) (Auto) 68 42-75 % Lymphocytes (%) (Auto) 16 12-44 % Monocytes (%) (Auto) 13 H 0-12 % Eosinophils (%) (Auto) 2 0-10 % Basophils (%) (Auto) 1 0-10 % Neutrophils # (Auto) 7.3 1.8-7.8 10^3/uL Lymphocytes # (Auto) 1.7 1.0-4.0 10^3/uL Monocytes # (Auto) 1.4 H 0.0-1.0 10^3/uL Eosinophils # (Auto) 0.2 0.0-0.3 10^3/uL Basophils # (Auto) 0.1 0.0-0.1 10^3/uL Immature Granulocyte # (Auto) 0.1 0.0-0.1 10^3/uL Sodium Level 134 L 135-145 MMOL/L Potassium Level 4.1 3.6-5.0 MMOL/L Chloride Level 106 98-107 MMOL/L Carbon Dioxide Level 19 L 21-32 MMOL/L Anion Gap 9 5-14 MMOL/L Blood Urea Nitrogen 24 H 7-18 MG/DL Creatinine 1.09 0.60-1.30 MG/DL Estimat Glomerular Filtration Rate 86 BUN/Creatinine Ratio 22 Glucose Level 131 H 70-105 MG/DL Calcium Level 9.3 8.5-10.1 MG/DL Corrected Calcium 9.3 8.5-10.1 MG/DL Total Bilirubin 1.4 H 0.1-1.0 MG/DL Aspartate Amino Transf (AST/SGOT) 52 H 5-34 U/L Alanine Aminotransferase (ALT/SGPT) 28 0-55 U/L Alkaline Phosphatase 219 H 40-136 U/L C-Reactive Protein High Sensitivity 0.35 0.00-0.50 MG/DL Total Protein 7.6 6.4-8.2 GM/DL Albumin 4.0 3.2-4.5 GM/DL Lipase 19 8-78 U/L Urine Color YELLOW Urine Clarity CLEAR Urine pH 5.5 5-9 Urine Specific [facility] [place] 1.025 H 1.016-1.022 Urine Protein TRACE H NEGATIVE Urine Glucose (UA) 3+ H NEGATIVE Urine Ketones NEGATIVE NEGATIVE Urine Nitrite NEGATIVE NEGATIVE Urine Bilirubin NEGATIVE NEGATIVE Urine Urobilinogen 0.2 < = 1.0 MG/DL Urine Leukocyte Esterase NEGATIVE NEGATIVE Urine RBC (Auto) NEGATIVE NEGATIVE Urine RBC NONE /HPF Urine WBC NONE /HPF Urine Squamous Epithelial Cells NONE /HPF Urine Crystals NONE /LPF Urine Bacteria NEGATIVE /HPF Urine Casts NONE /LPF Urine Mucus NEGATIVE /LPF Urine Culture Indicated NO My Orders Orders - SILVIA MACHADO MD Ua Culture If Indicated (08/05/22 18:08) Bladder Scan (08/05/22 18:18) Cbc With Automated Diff (08/05/22 18:34) Comprehensive Metabolic Panel (08/05/22 18:34) Hs C Reactive Protein (08/05/22 18:34) Lipase (08/05/22 18:34) Ed Iv/Invasive Line Start (08/05/22 18:34) Fentanyl Inj (Sublimaze Injection) (08/05/22 18:45) Morphine Injection (Morphine Injection (08/05/22 19:04) Fecal Occult Bedside (08/05/22 19:04) Ct Abdomen/Pelvis W (08/05/22 19:52) Urine Culture (08/05/22 19:54) Chlamydia Trachomatis Urine (08/05/22 19:54) Neis Marcos Dna Urine Test (08/05/22 19:54) Iohexol Injection (Omnipaque 350 Mg/Ml 1 (08/05/22 20:00) Received Contrast (Hold Metformin- Contr (08/05/22 20:00) Ns (Ivpb) (Sodium Chloride 0.9% Ivpb Bag (08/05/22 20:00) Morphine Injection (Morphine Injection (08/05/22 21:10) Oxycodone/Apap 5/325mg Tablet (Percocet (08/05/22 22:00) Rx-Oxycodone/Apap 5-325 Mg (Rx-Percocet (08/05/22 22:00) Sulfamethoxazole/Trimet Ds Tab (Bactrim (08/05/22 22:00) Medications Given in ED Current Medications Medications Dose Ordered Sig/[place] Route Start Time Stop Time Status Last Admin Dose Admin Iohexol 100 ml ONCE ONCE IV 08/05/22 20:00 08/05/22 20:02 DC 08/05/22 20:07 80 ML Oxycodone/ Acetaminophen 1 ea Q4H PRN PO 08/05/22 22:00 08/05/22 22:26 DC 08/05/22 22:17 1 EA Oxycodone/ Acetaminophen 1 tab ONCE ONCE PO 08/05/22 22:00 08/05/22 22:01 DC 08/05/22 22:17 1 TAB Sodium Chloride 100 ml ONCE ONCE IV 08/05/22 20:00 08/05/22 20:02 DC 08/05/22 20:07 80 ML Trimethoprim/ Sulfamethoxazole 1 ea ONCE ONCE PO 08/05/22 22:00 08/05/22 22:01 DC 08/05/22 22:17 1 EA Vital Signs/I&O 08/05/22 08/05/22 08/05/22 08/05/22 17:48 18:41 19:10 22:22 Temp 36.5 36.5 36.5 Pulse 90 85 Resp 16 16 B/P (MAP) 141/94 (110) 141/97 Pulse Ox 95 94 O2 Delivery Room Air Room Air 08/06/22 00:00 Output Total 49 ml Balance -49 ml Blood Pressure Mean: 110 Progress Progress Note #1: Time: 18:32 Progress Note Patient was promptly interviewed and examined. Lower abdomen appeared distended and was rather tender. Genital exam was grossly unremarkable. We will do a more thorough genital and rectal exam after some pain medication. Bladder scan revealed only 40 mL residual urine. Progress Note #2: Progress Note Patient required multiple doses of opioid analgesics to control his pain. CT of the abdomen and pelvis was obtained revealing free fluid around the sigmoid colon. There were no gross abnormalities visualized with the prostate or rectum. This fluid collection is presumed to be blood. The cause of the bleeding is unknown certain but may be spontaneous due to patient's Eliquis use. Delayed films were obtained on the CT scan and demonstrated no extravasation of contrast into the free fluid. Patient denies any rectal trauma, anal intercourse, or other reason to have bleeding. Based on exam and history, prostatitis is also a consideration for cause of pain. Urine cultures were ordered and patient is being treated with Bactrim. Bactrim was selected as fluoroquinolones have potential to interact with his medications and may have adverse cardiac effects. He denies any sexual activity for a few years and does not believe he has any risk factors for STIs. This case and imaging was discussed with Dr. Watson. He would like the patient to follow-up with him in the clinic and arrange for colonoscopy. Diagnostic Imaging Diagonstic Imaging: CT Plain Films/CT/US/NM/MRI: abdomen, pelvis Comments CT abdomen and pelvis viewed by me and report reviewed. See report below: NAME: PAL VALERIO [facility] REC#: [id number] PT STATUS: REG ER : 1980 PHYSICIAN: SILVIA MACHADO MD ADMIT DATE: 08/05/22/ER Signed Date of Exam:08/05/22 CT ABDOMEN/PELVIS W PROCEDURE: CT abdomen and pelvis with contrast. TECHNIQUE: Multiple contiguous axial images were obtained through the abdomen and pelvis after administration of intravenous contrast. Auto Exposure Controls were utilized during the CT exam to meet ALARA standards for radiation dose reduction. All CT scans use one or more of the following dose optimizing techniques: automated exposure control, MA and/or KvP adjustment based on patient size and exam type or iterative reconstruction. INDICATION: Low pelvic pain. Evaluate for prostatitis. FINDINGS: The lung bases demonstrate no finding of pneumonia. There is no effusion or pericardial collection. The liver demonstrates no focal intrahepatic abnormality. The gallbladder is nondistended without radiodense stones or biliary dilatation. Pancreas demonstrates no focal abnormality. The spleen is unremarkable. There is no adrenal mass. The kidneys enhance normally and appear nonobstructed. The kidneys demonstrate normal excretion on the delayed acquisition. The urinary bladder is nondistended. There is some free fluid present within the pelvis. There is no abnormal low density within the prostate or particular fat stranding about the prostate or seminal vesicles. The stomach is nondistended. There is no finding of abnormal small bowel dilation. There is a moderate degree of stool within the proximal right colon. There is no evidence to suggest an appendicitis. There is no abnormal colonic thickening. There is no significant thickening or stranding present about the rectum. There is uncomplicated sigmoid diverticulosis. There is no finding of free air. There is no abscess. There is a fat-containing left inguinal hernia. There is no large hydrocele. There appear to be some of vascular collaterals within the subcutaneous soft tissues near the right groin. The aorta demonstrates minimal atherosclerosis. There is patent runoff to both groins. There is no finding of an acute or suspicious osseous abnormality. IMPRESSION: 1. There is abnormal free fluid present within the pelvis. 2. There is no intraprostatic fluid collection or significant periprostatic or pelvic floor inflammatory of thickening or abscess. There is no significant thickening of the rectum. 3. No finding of bowel obstruction. There are a few uncomplicated diverticula. 4. There is no free air. 5. No finding of hydronephrosis or evidence to suggest pyelonephritis. The bladder is thick walled but this may be due to nondistention. Dictated by: Dictated on workstation # [id number] Dict: 08/05/222015 Trans: 08/05/222147 [facility] [id number] Interpreted by: PRISCILLA TOVAR MD Electronically signed by: PRISCILLA TOVAR MD 08/05/222147 Departure Impression Primary Impression: Pelvic pain Additional Impressions: Free fluid in pelvis Dysuria Anticoagulated Disposition: 01 HOME, SELF-CARE Condition: Improved Departure-Patient Inst. Decision time for Depature: 22:00 [place] [facility] [place] Primary Care Physician LOYD WATSON DO Patient Instructions: Bacterial Prostatitis, HEMATOMA Add. Discharge Instructions: The most likely explanation for your symptoms and the CT findings is development of a hematoma (collection of blood) in your pelvis around the sigmoid colon and rectal region. This may be spontaneous due to use of Eliquis. Skip the next 2 doses of Eliquis to prevent any worsening of bleeding that has caused the hematoma. Follow-up with Dr. Watson (general surgeon) as soon as possible. You will need colonoscopy scheduled sometime in the very near future for further evaluation. Please call his office tomorrow morning to schedule an appointment time. His contact information is below. Some features of your pain are suggestive of prostatitis (infection of the prostate gland) complete antibiotics as prescribed. Complete your antibiotics as prescribed. You may use Percocet as prescribed for pain control. This medication may cause sedation and constipation. Use with caution, and do not drive, operate machinery, use Colace stool softener twice daily to keep your stools soft until otherwise instructed. Adhere to a clear liquid diet for the next 24 hours. If your pain is due to a spontaneous hematoma, this should gradually improve over the next several days. Return to care if you have worsening symptoms or not improving as expected. Call with questions or concerns. All discharge instructions reviewed with patient and/or family. Voiced understanding. Scripts Docusate Sodium (Colace) 100 Mg Capsule 100 MG PO BID, #60 CAP Prov: SILVIA MACHADO MD 08/05/22 Oxycodone HCl/Acetaminophen (Percocet 5-325 mg Tablet) 1 Each Tablet 1 TAB PO Q4H for PAINMOD MDD 6 TABS, #15 TAB Prov: SILVIA MACHADO MD 08/05/22 Sulfamethoxazole/Trimethoprim (Bactrim Ds Tablet) 1 Each Tablet 1 EACH PO BID, #20 TAB Prov: SILVIA MACHADO MD 08/05/22 Copy Copies To 1: [facility] [place] Copies To 2: LOYD WATSON JOSHUA T MD Aug 05, 2022 18:21
[2022-08-05 18:25] LABS: BACTERIA,URINE NEGATIVE /HPF
[2022-08-05 18:41] LABS: BASOPHILS # (AUTO) 0.1 10^3/uL (0.0-0.1); BASOPHILS % (AUTO) 1 % (0-10); EOSINOPHILS # (AUTO) 0.2 10^3/uL (0.0-0.3); EOSINOPHILS % (AUTO) 2 % (0-10); HEMATOCRIT 45 % (40-54); HEMOGLOBIN 14.2 g/dL (13.3-17.7); LYMPHOCYTES # (AUTO) 1.7 10^3/uL (1.0-4.0); LYMPHOCYTES % (AUTO) 16 % (12-44); MEAN CORPUSCULAR HEMOGLOBIN 26 pg (25-34); MEAN CORPUSCULAR HGB CONC 31 g/dL (32-36); MEAN CORPUSCULAR VOLUME 83 fL (80-99); MONOCYTES # (AUTO) 1.4 10^3/uL (0.0-1.0); MONOCYTES % (AUTO) 13 % (0-12); NEUTROPHILS # (AUTO) 7.3 10^3/uL (1.8-7.8); NEUTROPHILS % (AUTO) 68 % (42-75); PLATELET COUNT 232 10^3/uL (130-400); WHITE BLOOD COUNT 10.8 10^3/uL (4.3-11.0)
[2022-08-05 18:44] LABS: POTASSIUM 4.1 MMOL/L (3.6-5.0)
[2022-08-05 18:45] LABS: CALCIUM 9.3 MG/DL (8.5-10.1)
[2022-08-05] MEDS ORDERED: fentaNYL INJ 100 MCG/2 ML AMP IVP ONE (18:45)
[2022-08-05 18:46] LABS: TOTAL PROTEIN 7.6 GM/DL (6.4-8.2)
[2022-08-05 18:48] LABS: BILIRUBIN,TOTAL 1.4 MG/DL (0.1-1.0)
[2022-08-05 18:50] LABS: CREATININE SERUM 1.09 MG/DL (0.60-1.30)
[2022-08-05] MEDS ORDERED: morphine INJ 10 MG/ML 1ML (SYR OR VIAL) IVP STA ×2 (19:04→21:10)
[2022-08-05] MEDS ORDERED: NS 100 ML (IVPB) BAG IV ONE (20:00)
[2022-08-05] MEDS ORDERED: IOHEXOL 350 MG/ML 100 ML (OMNIPAQUE 350) VIAL IV ONE (20:00)
[2022-08-05] MEDS ORDERED: HOLD METFORMIN - RECEIVED CONTRAST 20 ML VIAL IV SCH (20:00)
--- NOTE | 2022-08-05 20:27 | Diagnostic Imaging Report ---
PROCEDURE: CT abdomen and pelvis with contrast. TECHNIQUE: Multiple contiguous axial images were obtained through the abdomen and pelvis after administration of intravenous contrast. Auto Exposure Controls were utilized during the CT exam to meet ALARA standards for radiation dose reduction. All CT scans use one or more of the following dose optimizing techniques: automated exposure control, MA and/or KvP adjustment based on patient size and exam type or iterative reconstruction. INDICATION: Low pelvic pain. Evaluate for prostatitis. FINDINGS: The lung bases demonstrate no finding of pneumonia. There is no effusion or pericardial collection. The liver demonstrates no focal intrahepatic abnormality. The gallbladder is nondistended without radiodense stones or biliary dilatation. Pancreas demonstrates no focal abnormality. The spleen is unremarkable. There is no adrenal mass. The kidneys enhance normally and appear nonobstructed. The kidneys demonstrate normal excretion on the delayed acquisition. The urinary bladder is nondistended. There is some free fluid present within the pelvis. There is no abnormal low density within the prostate or particular fat stranding about the prostate or seminal vesicles. The stomach is nondistended. There is no finding of abnormal small bowel dilation. There is a moderate degree of stool within the proximal right colon. There is no evidence to suggest an appendicitis. There is no abnormal colonic thickening. There is no significant thickening or stranding present about the rectum. There is uncomplicated sigmoid diverticulosis. There is no finding of free air. There is no abscess. There is a fat-containing left inguinal hernia. There is no large hydrocele. There appear to be some of vascular collaterals within the subcutaneous soft tissues near the right groin. The aorta demonstrates minimal atherosclerosis. There is patent runoff to both groins. There is no finding of an acute or suspicious osseous abnormality. IMPRESSION: 1. There is abnormal free fluid present within the pelvis. 2. There is no intraprostatic fluid collection or significant periprostatic or pelvic floor inflammatory of thickening or abscess. There is no significant thickening of the rectum. 3. No finding of bowel obstruction. There are a few uncomplicated diverticula. 4. There is no free air. 5. No finding of hydronephrosis or evidence to suggest pyelonephritis. The bladder is thick walled but this may be due to nondistention. Dictated by: Dictated on workstation # [id number]
[2022-08-05] MEDS ORDERED: TRIM/SULFAMETH 160/800 (SEPTRA DS) TAB PO ONE (22:00)
[2022-08-05] MEDS ORDERED: oxyCODONE/APAP 5/325MG (PERCOCET 5) TABLET PO ONE (22:00)
[2022-08-05] MEDS ORDERED: RX-OXYCODONE/APAP 5-325 MG #4 TAB PK PO PRN (22:00)
[2022-08-05] MEDS ORDERED: OXYC1TAB87 PO (22:09)
[2022-08-05] MEDS ORDERED: SULF1TAB38 PO (22:09)
[2022-08-05] MEDS ORDERED: DOCU-143 PO (22:09)
[2022-08-05 22:22] VITALS: BP 141/97
== END 2022-08-05 22:22 | disposition home or self-care (01) ==
LOC: EDUNIT# 17:44 → ER 17:47
DX: R10.2 Pelvic and perineal pain (principal); R30.0 Dysuria; R18.8 Other ascites; I48.91 Unspecified atrial fibrillation; E66.9 Obesity, unspecified; F17.210 Nicotine dependence, cigarettes, uncomplicated; Z68.31 Body mass index [BMI] 31.0-31.9, adult; Z28.310 Unvaccinated for COVID-19; Z79.01 Long term (current) use of anticoagulants
CPT/HCPCS: 36415; 74177; 80053; 81000; 82274; 83690; 85025; 86141; 87088; 87491; 87591

== ENCOUNTER 2022-08-25 14:35 | Emergency (ER) | payer OTHER ==
[~2022-08-25] VITALS: Ht 180 cm; Wt 108.9 kg
[~2022-08-25 14:35] MED LIST changes: +ALBU8.5H6 IH; +DOCU-143 PO; +OXYC1TAB87 PO; -RT-ALBUINH IH
[2022-08-25 15:58] LABS: CLARITY,URINE CLEAR; COLOR,URINE DARK YELLOW; GLUCOSE, URINE (UA) NEGATIVE (NEGATIVE); KETONES,URINE NEGATIVE (NEGATIVE); LEUKOCYTE ESTERASE ,URINE NEGATIVE (NEGATIVE); NITRITE,URINE NEGATIVE (NEGATIVE); PH,URINE 5.5 (5-9); PROTEIN,URINE 1+ (NEGATIVE)
[2022-08-25 16:02] LABS: BASOPHILS # (AUTO) 0.1 10^3/uL (0.0-0.1); BASOPHILS % (AUTO) 0 % (0-10); EOSINOPHILS # (AUTO) 0.3 10^3/uL (0.0-0.3); EOSINOPHILS % (AUTO) 2 % (0-10); HEMATOCRIT 43 % (40-54); HEMOGLOBIN 13.8 g/dL (13.3-17.7); LYMPHOCYTES # (AUTO) 1.5 10^3/uL (1.0-4.0); LYMPHOCYTES % (AUTO) 13 % (12-44); MEAN CORPUSCULAR HEMOGLOBIN 27 pg (25-34); MEAN CORPUSCULAR HGB CONC 32 g/dL (32-36); MEAN CORPUSCULAR VOLUME 83 fL (80-99); MEAN PLATELET VOLUME 10.8 fL (9.0-12.2); MONOCYTES # (AUTO) 1.3 10^3/uL (0.0-1.0); MONOCYTES % (AUTO) 12 % (0-12); NEUTROPHILS # (AUTO) 8.2 10^3/uL (1.8-7.8); NEUTROPHILS % (AUTO) 73 % (42-75); PLATELET COUNT 190 10^3/uL (130-400); WHITE BLOOD COUNT 11.3 10^3/uL (4.3-11.0)
[2022-08-25 16:09] LABS: ALBUMIN 3.9 GM/DL (3.2-4.5); POTASSIUM 3.9 MMOL/L (3.6-5.0)
[2022-08-25 16:11] LABS: BACTERIA,URINE NEGATIVE /HPF; BILIRUBIN,URINE 1+ (NEGATIVE); CALCIUM 9.9 MG/DL (8.5-10.1)
[2022-08-25 16:12] LABS: TOTAL PROTEIN 7.3 GM/DL (6.4-8.2)
[2022-08-25 16:14] LABS: BILIRUBIN,TOTAL 1.2 MG/DL (0.1-1.0)
[2022-08-25 16:15] LABS: CREATININE SERUM 0.91 MG/DL (0.60-1.30)
[2022-08-25] MEDS ORDERED: oxyCODONE/APAP 5/325MG (PERCOCET 5) TABLET PO ONE (16:15)
--- NOTE | 2022-08-25 16:33 | ED General ---
General Chief Complaint: Rect Problems Stated Complaint: RECTAL PAIN | BLEEDING Nursing Triage Note: PT AMB TO TRIAGE W C/O RECTAL PAIN SX APPROX 1200 TODAY WHEN HE WAS HAULING PIPE. PT ALSO REPORTS BRIGHT RED RECTAL BLEEDING AND UPPER ABD PAIN THAT STARTED TODAY. PT A&OX4. Source of Information: Patient Exam Limitations: No Limitations (ROSS ARRIAZA APRN) History of Present Illness Date Seen by Provider: Aug 25, 2022 Time Seen by Provider: 14:50 Initial Comments Patient is a 42-year-old male who presents to the emergency department for evaluation of rectal pain and bleeding. He states the bleeding began earlier today and is bright red in color. He states it is only present on the toilet tissue when he wipes. He states the rectal pain began several days ago. He was seen here a few weeks ago for very similar symptoms. It was felt he may have prostatitis and was started on oral Bactrim. He states he had complete resoluti on of symptoms and 4 days after starting the antibiotics. He states he completed the antibiotics and was still symptom-free for a few days but then began to have a slow return of symptoms until they progressively worsened to where they are today. Denies any pain with urination but does state his symptoms sometimes refer to his suprapubic area and scrotum. 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 (ROSS ARRIAZA APRN) Allergies and Home Medications Allergies Coded Allergies: hydrocodone (Verified Allergy, Severe, ITCHING, 08/05/22) Penicillins (Verified Allergy, Unknown, 11/09/20) Patient Home Medication List Home Medication List Reviewed: Yes (ROSS ARRIAZA APRN) Docusate Sodium (Colace) 100 Mg Capsule, 100 MG PO BID Prescribed by: SILVIA CUELLAR on 08/05/22 2209 Furosemide (Furosemide) 40 Mg Tablet, 40 MG PO DAILY, (Reported) Entered as Reported by: EDER VARGAS on 07/05/22 0902 Gabapentin (Gabapentin) 600 Mg Tablet, 600 MG PO TID, (Reported) Entered as Reported by: BRAYAN AYERS on 07/03/22 1002 Hydroxyzine HCl (Hydroxyzine HCl) 50 Mg Tablet, 50 MG PO TID PRN for ANXIETY, (Reported) Entered as Reported by: EDER VARGAS on 07/05/22 09 Metoprolol Succinate (Metoprolol Succinate) 25 Mg Tab.er.24h, 25 MG PO DAILY Prescribed by: JACOBY LINK on 07/06/22899 Mirtazapine (Mirtazapine) 15 Mg Tablet, 7.5 MG PO DAILY, (Reported) Entered as Reported by: BRAYAN AYERS on 07/03/221001 Olanzapine (Olanzapine) 5 Mg Tablet, 5 MG PO DAILY, (Reported) Entered as Reported by: BRAYAN AYERS on 07/03/221001 Oxycodone HCl/Acetaminophen (Percocet 5-325 mg Tablet) 1 Each Tablet, 1 TAB PO Q4H Prescribed by: SILVIA CUELLAR on 08/05/222208 Oxycodone HCl/Acetaminophen (Percocet 5-325 mg Tablet) 1 Each Tablet, 1 TAB PO Q6H PRN for PAIN-SEVERE (8-10) Prescribed by: Ross Arriaza on 08/25/22 1644 Pantoprazole Sodium (Pantoprazole Sodium) 40 Mg Tablet.dr, 40 MG PO DAILY Prescribed by: JACOBY LINK on 07/06/22899 Polyethylene Glycol 3350 (Polyethylene Glycol 3350) 17 Gram Powd.pack, 17 GM PO DAILY PRN for CONSTIPATION-1ST LINE Prescribed by: JACOBY LINK on 07/06/22899 Rivaroxaban (Xarelto Tablet) 20 Mg Tablet, 20 MG PO DAILY@1700 Prescribed by: JACOBY LINK on 07/06/22899 Ropinirole HCl (Ropinirole HCl) 0.5 Mg Tablet, 0.5 MG PO DAILY, (Reported) Entered as Reported by: BRAYAN AYERS on 07/03/221001 Sertraline HCl (Sertraline HCl) 50 Mg Tablet, 50 MG PO DAILY, (Reported) Entered as Reported by: BRAYAN AYERS on 07/03/221001 Spironolactone (Spironolactone) 25 Mg Tablet, 25 MG PO DAILY, (Reported) Entered as Reported by: BRAYAN AYERS on 07/03/221001 Sulfamethoxazole/Trimethoprim (Bactrim Ds Tablet) 1 Each Tablet, 1 EACH PO BID Prescribed by: SILVIA CUELLAR on 08/05/222208 Sulfamethoxazole/Trimethoprim (Bactrim Ds Tablet) 1 Each Tablet, 1 EACH PO BID Prescribed by: Ross Arriaza on 08/25/22 9138 Review of Systems Review of Systems Constitutional: no symptoms reported EENTM: no symptoms reported Respiratory: no symptoms reported Cardiovascular: no symptoms reported Gastrointestinal: see HPI Genitourinary: see HPI (ROSS ARRIAZA APRN) Past Tfrakmb-Dzrkwz-Qlymdt Hx Patient Social History Tobacco Use?: Yes Tobacco type used: Cigarettes Smoking Status: Current Everyday Smoker Use of E-Cig and/or Vaping dev: No Substance use?: No Alcohol Use?: No (ROSS ARRIAZA APRN) Immunizations Up To Date Tetanus Booster (TDap): Unknown Influenza Vaccine Up-to-Date: No; Not Current First/Initial COVID19 Vaccinat: N/A Second COVID19 Vaccination [place]: N/A Third COVID19 Vaccination Date: N/A 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 (ROSS ARRIAZA APRN) Past Medical History Surgery/Hospitalization HX: A-FIB, HF, AFLUTTER Surgeries: Yes (HERNIA REPAIR) Abdominal, Appendectomy Respiratory: No Cardiac: Yes (CHF 30-35% EF) Atrial Fibrillation, Cardiomyopathy, High Cholesterol, Hypertension Neurological: No Genitourinary: No Gastrointestinal: Yes Gastroesophageal Reflux Musculoskeletal: No Endocrine: Yes (OBESITY, borderline diabetes) HEENT: No Cancer: No Psychosocial: Yes (SUBSTANCE ABUSE) Integumentary: Yes (TATTOOS) Blood Disorders: No (ROSS ARRIAZA APRN) Family Medical History No Pertinent Family Hx SOCIAL HISTORY: -ETOH--REGULAR USE -DRUGS--METHAMPHETAMINES -SMOKES 1 PPD PAST SURGICAL HISTORY: -APPENDECTOMY -HERNIA REPAIR -CARDIOVERSIONS ECHOCARDIOGRAM 11/13/20--EF 30-35%, NO REGIONAL WALL MOTION ABNORMALITIES. EXTREME NON-COMPLIANCE IN ALL ASPECTS OF CARE (ROSS ARRIAZA APRN) Physical Exam Vital Signs Vital Signs - First Documented 08/25/22 14:49 Temp 36.2 Pulse 83 Resp 20 B/P (MAP) 126/83 (97) Pulse Ox 97 O2 Delivery Room Air (SILVIA MACHADO MD) Vital Signs Capillary Refill : Less Than 3 Seconds (ROSS ARRIAZA APRN) Height, Weight, BMI Height: '" Weight: lbs. oz. kg; 33.00 BMI Method: General Appearance: No Apparent Distress, WD/WN HEENT: PERRL/EOMI, TMs Normal, Normal ENT Inspection, Pharynx Normal Neck: Full Range of Motion, Normal Inspection, Non Tender, Supple Respiratory: Chest Non Tender, Lungs Clear, Normal Breath Sounds, No Accessory Muscle Use, No Respiratory Distress Cardiovascular: Regular Rate, Rhythm Gastrointestinal: Normal Bowel Sounds Back: Normal Inspection, No Vertebral Tenderness Extremity: No Calf Tenderness Neurologic/Psychiatric: Alert, Oriented x3, No Motor/Sensory Deficits, Normal Mood/Affect Skin: Normal Color, Warm/Dry (ROSS ARRIAZA APRN) Procedures/Interventions Date of ETT Placement: Oct 02, 2021 Time of ETT Placement: 142 (ROSS ARRIAZA APRN) Progress/Results/Core Measures Suspected Sepsis SIRS Temperature: Pulse: 83 Respiratory Rate: 20 Laboratory Tests 08/25/22 15:47: White Blood Count 11.3H Blood Pressure 126 /83 Mean: 97 Laboratory Tests 08/25/22 15:47: Creatinine 0.91, Platelet Count 190, Total Bilirubin 1.2H (ROSS ARRIAZA APRN) Results/Orders Lab Results Laboratory Tests Test 08/25/22 15:47 Range/Units White Blood Count 11.3 H 4.3-11.0 10^3/uL Red Blood Count 5.17 4.30-5.52 10^6/uL Hemoglobin 13.8 13.3-17.7 g/dL Hematocrit 43 40-54 % Mean Corpuscular Volume 83 80-99 fL Mean Corpuscular Hemoglobin 27 25-34 pg Mean Corpuscular Hemoglobin Concent 32 32-36 g/dL Red Cell Distribution Width 18.7 H 10.0-14.5 % Platelet Count 190 130-400 10^3/uL Mean Platelet Volume 10.8 9.0-12.2 fL Immature Granulocyte % (Auto) 0 % Neutrophils (%) (Auto) 73 42-75 % Lymphocytes (%) (Auto) 13 12-44 % Monocytes (%) (Auto) 12 0-12 % Eosinophils (%) (Auto) 2 0-10 % Basophils (%) (Auto) 0 0-10 % Neutrophils # (Auto) 8.2 H 1.8-7.8 10^3/uL Lymphocytes # (Auto) 1.5 1.0-4.0 10^3/uL Monocytes # (Auto) 1.3 H 0.0-1.0 10^3/uL Eosinophils # (Auto) 0.3 0.0-0.3 10^3/uL Basophils # (Auto) 0.1 0.0-0.1 10^3/uL Immature Granulocyte # (Auto) 0.1 0.0-0.1 10^3/uL Urine Color DARK YELLOW Urine Clarity CLEAR Urine pH 5.5 5-9 Urine Specific [place] >=1.030 1.016-1.022 Urine Protein 1+ H NEGATIVE Urine Glucose (UA) NEGATIVE NEGATIVE Urine Ketones NEGATIVE NEGATIVE Urine Nitrite NEGATIVE NEGATIVE Urine Bilirubin 1+ H NEGATIVE Urine Urobilinogen 1.0 < = 1.0 MG/DL Urine Leukocyte Esterase NEGATIVE NEGATIVE Urine RBC (Auto) NEGATIVE NEGATIVE Urine RBC NONE /HPF Urine WBC NONE /HPF Urine Squamous Epithelial Cells NONE /HPF Urine Crystals NONE /LPF Urine Bacteria NEGATIVE /HPF Urine Casts NONE /LPF Urine Mucus NEGATIVE /LPF Urine Culture Indicated NO Sodium Level 137 135-145 MMOL/L Potassium Level 3.9 3.6-5.0 MMOL/L Chloride Level 106 98-107 MMOL/L Carbon Dioxide Level 21 21-32 MMOL/L Anion Gap 10 5-14 MMOL/L Blood Urea Nitrogen 17 7-18 MG/DL Creatinine 0.91 0.60-1.30 MG/DL Estimat Glomerular Filtration Rate 107 BUN/Creatinine Ratio 19 Glucose Level 111 H 70-105 MG/DL Calcium Level 9.9 8.5-10.1 MG/DL Corrected Calcium 10.0 8.5-10.1 MG/DL Total Bilirubin 1.2 H 0.1-1.0 MG/DL Aspartate Amino Transf (AST/SGOT) 31 5-34 U/L Alanine Aminotransferase (ALT/SGPT) 20 0-55 U/L Alkaline Phosphatase 164 H 40-136 U/L Total Protein 7.3 6.4-8.2 GM/DL Albumin 3.9 3.2-4.5 GM/DL (SILVIA MACHADO MD) Vital Signs/I&O 08/25/22 08/25/22 14:49 16:54 Temp 36.2 Pulse 83 Resp 20 B/P (MAP) 126/83 (97) 120/88 Pulse Ox 97 O2 Delivery Room Air (SILVIA MACHADO MD) Vital Signs/I&O Capillary Refill : Less Than 3 Seconds (ROSS ARRIAZA APRN) Blood Pressure Mean: 97 Progress Note : Progress Note Patient is nontoxic and well-hydrated on exam. No specific tenderness to palpation noted in the abdomen. Laboratory evaluation is reassuring overall. Given his improvement with the Bactrim, he will likely need a longer course if it is prostatitis. He has an appointment with his PCP in early September. I recommended he attempt to be seen sooner than this. He was given a dose of an algesia. He was given a 2-week course of Bactrim. Return precautions for urgent symptomology discussed. Patient verbalized understanding. (ROSS ARRIAZA APRN) Departure Impression Primary Impression: Prostatitis Qualified Codes: N41.0 - Acute prostatitis Disposition: HOME, SELF-CARE Condition: Stable Departure-Patient Inst. Decision time for Depature: 16:40 (ROSS ARRIAZA APRN) Referrals: [facility] [place] (PCP/Family) Primary Care Physician Patient Instructions: Prostatitis (DC) Scripts Oxycodone HCl/Acetaminophen (Percocet 5-325 mg Tablet) 1 Each Tablet 1 TAB PO Q6H PRN for PAIN-SEVERE (8-10) MDD 6 TABS for 3 Days, #10 TAB 0 Refills Prov: ROSS ARRIAZA APRN 08/25/22 Sulfamethoxazole/Trimethoprim (Bactrim Ds Tablet) 1 Each Tablet 1 EACH PO BID for 14 Days, #28 TAB 0 Refills Prov: ROSS ARRIAZA APRN 08/25/22 ATTENDING PHYSICIAN NOTE: I was physically present as attending physician in the emergency department during the care of this patient, but I was not directly involved in the decision making or delivery of care for this patient. (SILVIA MACHADO MD) ROSS ARRIAZA APRN Aug 25, 2022 16:33 SILVIA MACHADO MD Aug 26, 2022 21:25
[2022-08-25] MEDS ORDERED: OXYC1TAB87 PO (16:43)
[2022-08-25] MEDS ORDERED: SULF1TAB38 PO (16:43)
[2022-08-25 16:54] VITALS: BP 120/88
== END 2022-08-25 16:54 | disposition home or self-care (01) ==
LOC: EDUNIT# 14:35 → ER 14:37
DX: N41.9 Inflammatory disease of prostate, unspecified (principal); F17.210 Nicotine dependence, cigarettes, uncomplicated; E66.9 Obesity, unspecified; Z68.33 Body mass index [BMI] 33.0-33.9, adult; Z88.0 Allergy status to penicillin; Z88.5 Allergy status to narcotic agent; Z28.310 Unvaccinated for COVID-19
CPT/HCPCS: 36415; 80053; 81000; 85025; 99283

== ENCOUNTER 2022-10-08 13:27 | Inpatient (IN) | payer OTHER ==
[~2022-10-08] VITALS: Ht 180 cm; Wt 115.0 kg
[2022-10-08] MEDS ORDERED: ASPIRIN 81 MG CHEW (CHILDREN'S ASA) PO STA (13:36)
[2022-10-08] MEDS ORDERED: LORazepam 0.5 MG (ATIVAN) TABLET PO STA (13:38)
[2022-10-08] MEDS ORDERED: LORazepam INJ 2 MG/ML (ATIVAN) VIAL ONE (13:42)
--- NOTE | 2022-10-08 13:44 | ED Chest Pain ---
General Stated Complaint: CHEST PAIN History of Present Illness Date Seen by Provider: Oct 08, 2022 Time Seen by Provider: 13:25 Initial Comments 42 year old male with known cardiac history reports chest pain that began 0300 today. He reports know meth use for 6-7 months, but smoked it last night. Has not taken his routine medications for a week or 2. History of Afib with RVR, prescribed Xarelto but not taking it. Patient is twitching, picking at skin, and rolling around in bed continuously. 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 He is cooperative and answering all questions appropriately. Last Echo April 2022, EF 40%. Timing/Duration: other (10 hours) Severity/Quality: mild Location: substernal Activities at Onset: other (post meth use) Prior CP/Workup: echocardiography ASA po LINK FABRIC MACHINE OPERATOR: No NTG SL LINK FABRIC MACHINE OPERATOR: No Associated Symptoms: No abdominal pain, No back pain, No heartburn, No nausea/vomiting, No shortness of breath, No syncope, No weakness (LAURA ADAMES) Allergies and Home Medications Allergies Coded Allergies: hydrocodone (Verified Allergy, Severe, ITCHING, 08/05/22) Penicillins (Verified Allergy, Unknown, 11/09/20) Patient Home Medication List Home Medication List Reviewed: Yes (LAURA ADAMES) Docusate Sodium (Colace) 100 Mg Capsule, 100 MG PO BID Prescribed by: SILVIA CUELLAR on 08/05/222208 Furosemide (Furosemide) 40 Mg Tablet, 40 MG PO DAILY, (Reported) Entered as Reported by: EDER VARGAS on 07/05/22901 Gabapentin (Gabapentin) 600 Mg Tablet, 600 MG PO TID, (Reported) Entered as Reported by: BRAYAN AYERS on 07/03/22 1002 Hydroxyzine HCl (Hydroxyzine HCl) 50 Mg Tablet, 50 MG PO TID PRN for ANXIETY, (Reported) Entered as Reported by: EDER VARGAS on 07/05/22 09 Metoprolol Succinate (Metoprolol Succinate) 25 Mg Tab.er.24h, 25 MG PO DAILY Prescribed by: JACOBY LINK on 07/06/22 09 Mirtazapine (Mirtazapine) 15 Mg Tablet, 7.5 MG PO DAILY, (Reported) Entered as Reported by: BRAYAN AYERS on 9/24/22 1002 Olanzapine (Olanzapine) 5 Mg Tablet, 5 MG PO DAILY, (Reported) Entered as Reported by: BRAYAN AYERS on 07/03/221001 Oxycodone HCl/Acetaminophen (Percocet 5-325 mg Tablet) 1 Each Tablet, 1 TAB PO Q4H Prescribed by: SILVIA CUELLAR on 08/05/222208 Oxycodone HCl/Acetaminophen (Percocet 5-325 mg Tablet) 1 Each Tablet, 1 TAB PO Q6H PRN for PAIN-SEVERE (8-10) Prescribed by: Ross Arriaza on 08/25/221643 Pantoprazole Sodium (Pantoprazole Sodium) 40 Mg Tablet.dr, 40 MG PO DAILY Prescribed by: JACOBY LINK on 07/06/22899 Polyethylene Glycol 3350 (Polyethylene Glycol 3350) 17 Gram Powd.pack, 17 GM PO DAILY PRN for CONSTIPATION-1ST LINE Prescribed by: JACOBY LINK on 07/06/22 09 Rivaroxaban (Xarelto Tablet) 20 Mg Tablet, 20 MG PO DAILY@1700 Prescribed by: JACOBY LINK on 07/06/22 09 Ropinirole HCl (Ropinirole HCl) 0.5 Mg Tablet, 0.5 MG PO DAILY, (Reported) Entered as Reported by: BRAYAN AYERS on 07/03/221001 Sertraline HCl (Sertraline HCl) 50 Mg Tablet, 50 MG PO DAILY, (Reported) Entered as Reported by: BRAYAN AYERS on 07/03/221001 Spironolactone (Spironolactone) 25 Mg Tablet, 25 MG PO DAILY, (Reported) Entered as Reported by: BRAYAN AYERS on 07/03/221001 Sulfamethoxazole/Trimethoprim (Bactrim Ds Tablet) 1 Each Tablet, 1 EACH PO BID Prescribed by: SILVIA CUELLAR on 08/05/222208 Sulfamethoxazole/Trimethoprim (Bactrim Ds Tablet) 1 Each Tablet, 1 EACH PO BID Prescribed by: Ross Arriaza on 08/25/221642 Review of Systems Review of Systems Constitutional: no symptoms reported, see HPI EENTM: No Symptoms Reported, See HPI Respiratory: No Symptoms Reported, See HPI Cardiovascular: See HPI, Chest Pain, Irregular Heart Rate Gastrointestinal: No Symptoms Reported, See HPI Genitourinary: No Symptoms Reported, See HPI Musculoskeletal: no symptoms reported, see HPI Skin: no symptoms reported, see HPI (LAURA ADAMES) All Other Systems Reviewed Negative Unless Noted: Yes (LAURA ADAMES) Past Heghkrn-Ljaxim-Verdje Hx Immunizations Up To Date Tetanus Booster (TDap): Unknown First/Initial COVID19 Vaccinat: N/A Second COVID19 Vaccination [place]: N/A Third COVID19 Vaccination Date: N/A (LAURA ADAMES) Past Medical History Surgery/Hospitalization HX: A-FIB, HF, AFLUTTER Surgeries: Yes (HERNIA REPAIR) Abdominal, Appendectomy Respiratory: No Cardiac: Yes (CHF 30-35% EF) Atrial Fibrillation, Cardiomyopathy, High Cholesterol, Hypertension Neurological: No Genitourinary: No Gastrointestinal: Yes Gastroesophageal Reflux Musculoskeletal: No Endocrine: Yes (OBESITY, borderline diabetes) HEENT: No Cancer: No Psychosocial: Yes (SUBSTANCE ABUSE) Integumentary: Yes (TATTOOS) Blood Disorders: No (LAURA ADAMES) Family Medical History Reviewed Nursing Family Hx (LAURA ADAMES) No Pertinent Family Hx SOCIAL HISTORY: -ETOH--REGULAR USE -DRUGS--METHAMPHETAMINES -SMOKES 1 PPD PAST SURGICAL HISTORY: -APPENDECTOMY -HERNIA REPAIR -CARDIOVERSIONS ECHOCARDIOGRAM 11/13/20--EF 30-35%, NO REGIONAL WALL MOTION ABNORMALITIES. EXTREME NON-COMPLIANCE IN ALL ASPECTS OF CARE (LAURA ADAMES) Physical Exam Vital Signs Vital Signs - First Documented 10/08/22 14:32 Pulse 102 B/P (MAP) 129/113 (ELEUTERIO ANAYA MD) Vital Signs Capillary Refill : (LAURA ADAMES) Height, Weight, BMI Height: '" Weight: lbs. oz. kg; 33.00 BMI Method: General Appearance: Anxious, Moderate Distress HEENT: PERRL/EOMI, TMs Normal, Normal ENT Inspection, Pharynx Normal Neck: Full Range of Motion, Normal Inspection, Non Tender, Supple Respiratory: Chest Non Tender, Lungs Clear, Normal Breath Sounds Cardiovascular: No Edema, No JVD, Irregularly Irregular, Tachycardia Gastrointestinal: Normal Bowel Sounds, Non Tender, Soft, Distended Extremity: Normal Capillary Refill, Normal Inspection, Normal Range of Motion, No Pedal Edema Neurologic/Psychiatric: Alert, Oriented x3, No Motor/Sensory Deficits; No Normal Mood/Affect Skin: Normal Color, Warm/Dry (LAURA ADAMES) Procedures/Interventions Date of ETT Placement: Oct 02, 2021 Time of ETT Placement: 014 (LAURA ADAMES) Date of ETT Placement: Oct 08, 2022 Time of ETT Placement: 15:26 Intubation Method: orotracheal Tube Size: 8.0 Medications: Etomidate, Succinylcholine, Versed Positive End Tide CO2: Yes Breath Sounds after Intubation: bilateral-equal Intubation Complications: no complications Post Intubation Xray: Yes ET tube in good position Patient with significant methamphetamine abuse and hyperactivity with atrial fibrillation with rapid ventricular response on Cardizem drip. Patient becoming increasingly agitated despite benzodiazepine. Elected emergent intubation for airway protection and emergent care. ET tube 8.0 placed via glide scope x1 attempt without complication. Good bilateral breath sounds and fogging tube. O2 saturations increased to 98% while bagging. Patient was hypoxic prior to intubation due to fighting oxygen administration and extreme agitation. This has resolved. (ELEUTERIO ANAYA MD) Progress/Results/Core Measures Results/Orders Lab Results Laboratory Tests Test 10/08/22 13:39 10/08/22 14:49 10/08/22 15:30 Range/Units White Blood Count 11.2 H 4.3-11.0 10^3/uL Red Blood Count 4.97 4.30-5.52 10^6/uL Hemoglobin 14.0 13.3-17.7 g/dL Hematocrit 44 40-54 % Mean Corpuscular Volume 88 80-99 fL Mean Corpuscular Hemoglobin 28 25-34 pg Mean Corpuscular Hemoglobin Concent 32 32-36 g/dL Red Cell Distribution Width 18.6 H 10.0-14.5 % Platelet Count 176 130-400 10^3/uL Mean Platelet Volume 11.5 9.0-12.2 fL Immature Granulocyte % (Auto) 0 % Neutrophils (%) (Auto) 71 42-75 % Lymphocytes (%) (Auto) 14 12-44 % Monocytes (%) (Auto) 13 H 0-12 % Eosinophils (%) (Auto) 2 0-10 % Basophils (%) (Auto) 0 0-10 % Neutrophils # (Auto) 7.9 H 1.8-7.8 10^3/uL Lymphocytes # (Auto) 1.6 1.0-4.0 10^3/uL Monocytes # (Auto) 1.5 H 0.0-1.0 10^3/uL Eosinophils # (Auto) 0.2 0.0-0.3 10^3/uL Basophils # (Auto) 0.0 0.0-0.1 10^3/uL Immature Granulocyte # (Auto) 0.0 0.0-0.1 10^3/uL Prothrombin Time 17.4 H 12.2-14.7 SEC INR Comment 1.4 0.8-1.4 Activated Partial Thromboplast Time 35 24-35 SEC Sodium Level 136 135-145 MMOL/L Potassium Level 3.8 3.6-5.0 MMOL/L Chloride Level 104 98-107 MMOL/L Carbon Dioxide Level 21 21-32 MMOL/L Anion Gap 11 5-14 MMOL/L Blood Urea Nitrogen 20 H 7-18 MG/DL Creatinine 1.01 0.60-1.30 MG/DL Estimat Glomerular Filtration Rate 95 BUN/Creatinine Ratio 20 Glucose Level 108 H 70-105 MG/DL Calcium Level 9.6 8.5-10.1 MG/DL Corrected Calcium 9.4 8.5-10.1 MG/DL Magnesium Level 1.6 1.6-2.4 MG/DL Total Bilirubin 2.1 H 0.1-1.0 MG/DL Aspartate Amino Transf (AST/SGOT) 90 H 5-34 U/L Alanine Aminotransferase (ALT/SGPT) 44 0-55 U/L Alkaline Phosphatase 130 40-136 U/L Total Creatine Kinase 1861 H 30-200 U/L Creatine Kinase MB 36.4 *H <6.6 NG/ML Myoglobin 605.5 H 10.0-92.0 NG/ML Troponin I 0.036 H <0.028 NG/ML C-Reactive Protein High Sensitivity 0.57 H 0.00-0.50 MG/DL Total Protein 7.7 6.4-8.2 GM/DL Albumin 4.2 3.2-4.5 GM/DL Urine Color YELLOW Urine Clarity CLEAR Urine pH 5.0 5-9 Urine Specific [place] >=1.030 1.016-1.022 Urine Protein 2+ H NEGATIVE Urine Glucose (UA) NEGATIVE NEGATIVE Urine Ketones NEGATIVE NEGATIVE Urine Nitrite NEGATIVE NEGATIVE Urine Bilirubin 2+ H NEGATIVE Urine Urobilinogen 2.0 < = 1.0 MG/DL Urine Leukocyte Esterase NEGATIVE NEGATIVE Urine RBC (Auto) NEGATIVE NEGATIVE Urine RBC NONE /HPF Urine WBC NONE /HPF Urine Crystals PRESENT H /LPF Urine Amorphous Sediment RARE JIHAN URATES H /LPF Urine Bacteria NEGATIVE /HPF Urine Casts PRESENT /LPF Urine Hyaline Casts 0-2 H /LPF Urine Mucus NEGATIVE /LPF Urine Culture Indicated NO Urine Opiates Screen NEGATIVE NEGATIVE Urine Oxycodone Screen NEGATIVE NEGATIVE Urine Methadone Screen NEGATIVE NEGATIVE Urine Propoxyphene Screen NEGATIVE NEGATIVE Urine Barbiturates Screen NEGATIVE NEGATIVE Ur Tricyclic Antidepressants Screen NEGATIVE NEGATIVE Urine Phencyclidine Screen NEGATIVE NEGATIVE Urine Amphetamines Screen POSITIVE H NEGATIVE Urine Methamphetamines Screen POSITIVE H NEGATIVE Urine Benzodiazepines Screen NEGATIVE NEGATIVE Urine Cocaine Screen NEGATIVE NEGATIVE Urine Cannabinoids Screen POSITIVE H NEGATIVE (ELEUTERIO ANAYA MD) Medications Given in ED Current Medications Medications Dose Ordered Sig/[place] Route Start Time Stop Time Status Last Admin Dose Admin Diltiazem HCl 10 mg ONCE ONCE IVP 10/08/22 14:00 10/08/22 14:01 DC 10/08/22 14:32 10 MG Lorazepam 2 mg STK-MED ONCE .ROUTE 10/08/22 13:42 10/08/22 13:45 DC 10/08/22 13:47 0.5 MG (ELEUTERIO ANAYA MD) Vital Signs/I&O 10/08/22 10/08/22 14:32 15:34 Pulse 102 97 B/P (MAP) 129/113 114/85 (ELEUTERIO ANAYA MD) Progress Progress Note : Time: 13:25 Progress Note Patient assessed, will give Ativan 0.5mg. Difficult to keep telemetry monitoring patient with tweaking. Will obtain EKG, labs, CXR, Aspirin 324 mg orally. NS 1 L per IV. 1400 patient reports no new concerns. Awaiting lab results. Cardizem 10 mg IV. 1430 increased thrashing in bed. Able to calm with verbal stimula. Will give Ativan 2 mg IV. 1500 elevated CK, Troponin, and myoglobin, will give 2nd Liter NS and cont to hydrate aggressively with IVF. Spoke to Drs. Hernandez and Jaqueline, will plan to admit. Start Cardizem gtt and Lovenox. 1515 patient increased confusion, unable to re-direct with verbal commands. Snoring with periods of 3-5 sec of apnea. SaO2 95-98% on RA. Discussed with Dr. Anaya, will plan intubation, Valium 5 mg IV. [address] Anaya on intubation and medications. [address] Parsons and Mary, will admit to ICU. 1600 patient remained sedated on vent, no concerns. (LAURA ADAMES) Initial ECG Impression Date: Oct 08, 2022 Initial ECG Impression Time: 13:35 Initial ECG Rhythm: A Fib/Flutter Initial ECG Intervals QRST 106, QT 361, QTc 429. Black R 93, T- 77 Initial ECG Impression: Atrial Fibrillation w/RVR Initial ECG Comparisson: Changed (LAURA ADAMES) Diagnostic Imaging Diagonstic Imaging: Xray Plain Films/CT/US/NM/MRI: chest Comments NAME: RACHAEL VALERIOY Sebastian [facility] REC#: [id number] PT STATUS: REG ER : 1980 PHYSICIAN: LAURA ADAMES ADMIT DATE: 10/08/22/ER Draft Date of Exam:10/08/22 CHEST 1 VIEW, AP/PA ONLY Indication: Chest pain. Compared: 07/02/2022 Findings: Old rib deformities on the right chronic, heart mildly enlarged. There is mild prominence of the vascularity but no serenity edema, pneumonia, effusion or pneumothorax. Impression: Mild enlargement of the heart and venous distention but no edema, pleural fluid or pneumonia. Dictated on workstation # [id number] Dict: 10/08/22 1355 Trans: 10/08/22 1406 CV [id number] Interpreted by: LOLA VARGAS Electronically signed by: Reviewed: Reviewed by Me Diagonstic Imaging: Xray Plain Films/CT/US/NM/MRI: chest Comments [place] NAME: PAL VALERIO [facility] REC#: [id number] PT STATUS: REG ER : 1980 PHYSICIAN: LAURA ADAMES ADMIT DATE: 10/08/22/ER Signed Date of Exam:10/08/22 CHEST 1 VIEW, AP/PA ONLY EXAMINATION: Chest, one view. HISTORY: Intubation. Chest pain. COMPARISON: Chest radiograph performed earlier the same date. FINDINGS: There has been placement of an endotracheal tube with the tip overlying the trachea approximately 5 cm above the jeremias. The lung volumes are normal. Increasing hazy opacities are seen in the lung apices. No focal consolidation is seen. No large pleural effusion or pneumothorax is seen. The cardiomediastinal silhouette is normal in size and contour. No acute osseous abnormality is seen. IMPRESSION: 1. Interval intubation with appropriate configuration of the endotracheal tube. 2. Increased hazy opacities in the lung apices, which may be partially due to technique. Dictated by: Dictated on workstation # [id number] Dict: 10/08/22 1546 Trans: 10/08/22 1551 [id number] Interpreted by: MARILYN FREIRE DO Electronically signed by: MARILYN FREIRE DO 10/08/22 1551 Reviewed: Reviewed by Me (LAURA ADAMES) Departure Impression Primary Impression: Chest pain Qualified Codes: R07.9 - Chest pain, unspecified Additional Impressions: Methamphetamine abuse Cardiomyopathy Qualified Codes: I42.9 - Cardiomyopathy, unspecified Atrial fibrillation with RVR Elevated troponin Disposition: ADMITTED INPATIENT Condition: Critical Admissions Decision to Admit/Date: Oct 08, 2022 Time/Decision to Admit Time: 14:00 (LAURA ADAMES) Departure-Patient Inst. Referrals: [facility] (PCP/Family) Primary Care Physician LAURA ADAMES Oct 08, 2022 13:44 ELEUTERIO ANAYA MD Oct 08, 2022 15:36
[2022-10-08] MEDS ORDERED: NS IV 1000 ML 1,000 ML IV SCH ×3 (13:45→15:30)
[2022-10-08 13:46] LABS: BASOPHILS % (AUTO) 0 % (0-10); EOSINOPHILS # (AUTO) 0.2 10^3/uL (0.0-0.3); EOSINOPHILS % (AUTO) 2 % (0-10); HEMATOCRIT 44 % (40-54); LYMPHOCYTES # (AUTO) 1.6 10^3/uL (1.0-4.0); LYMPHOCYTES % (AUTO) 14 % (12-44); MEAN CORPUSCULAR HEMOGLOBIN 28 pg (25-34); MEAN CORPUSCULAR HGB CONC 32 g/dL (32-36); MEAN CORPUSCULAR VOLUME 88 fL (80-99); MEAN PLATELET VOLUME 11.5 fL (9.0-12.2); MONOCYTES # (AUTO) 1.5 10^3/uL (0.0-1.0); MONOCYTES % (AUTO) 13 % (0-12); NEUTROPHILS # (AUTO) 7.9 10^3/uL (1.8-7.8); NEUTROPHILS % (AUTO) 71 % (42-75); PLATELET COUNT 176 10^3/uL (130-400); WHITE BLOOD COUNT 11.2 10^3/uL (4.3-11.0)
[2022-10-08 13:59] LABS: INR 1.4 (0.8-1.4); PROTHROMBIN TIME PATIENT 17.4 SEC (12.2-14.7)
--- NOTE | 2022-10-08 14:08 | Diagnostic Imaging Report ---
Indication: Chest pain. Compared: 07/02/2022 Findings: Old rib deformities on the right chronic, heart mildly enlarged. There is mild prominence of the vascularity but no serenity edema, pneumonia, effusion or pneumothorax. Impression: Mild enlargement of the heart and venous distention but no edema, pleural fluid or pneumonia. Dictated by: Dictated on workstation # [id number]
[2022-10-08 14:11] LABS: ALBUMIN 4.2 GM/DL (3.2-4.5); BILIRUBIN,TOTAL 2.1 MG/DL (0.1-1.0); CALCIUM 9.6 MG/DL (8.5-10.1); CREATININE SERUM 1.01 MG/DL (0.60-1.30); MAGNESIUM 1.6 MG/DL (1.6-2.4); POTASSIUM 3.8 MMOL/L (3.6-5.0); TOTAL PROTEIN 7.7 GM/DL (6.4-8.2)
[2022-10-08 14:20] LABS: CREATINE KINASE MB 36.4 NG/ML (<6.6)
[2022-10-08] MEDS ORDERED: LORazepam INJ 2 MG/ML (ATIVAN) VIAL IVP STA (14:52)
[2022-10-08 14:56] LABS: BILIRUBIN,URINE 2+ (NEGATIVE); CLARITY,URINE CLEAR; COLOR,URINE YELLOW; GLUCOSE, URINE (UA) NEGATIVE (NEGATIVE); KETONES,URINE NEGATIVE (NEGATIVE); LEUKOCYTE ESTERASE ,URINE NEGATIVE (NEGATIVE); NITRITE,URINE NEGATIVE (NEGATIVE); PROTEIN,URINE 2+ (NEGATIVE)
[2022-10-08] MEDS ORDERED: ENOXAPARIN 100 MG/1 ML (LOVENOX) SYR SC STA (15:04)
[2022-10-08 15:08] LABS: AMORPHOUS SEDIMENT,UR RARE AMOR URATES /LPF; BACTERIA,URINE NEGATIVE /HPF
[2022-10-08 15:09] LABS: HYALINE CASTS, URINE 0-2 /LPF
[2022-10-08 15:10] LABS: AMPHETAMINE SCREEN, URINE POSITIVE (NEGATIVE); BARBITURATE SCREEN URINE NEGATIVE (NEGATIVE); BENZODIAZEPINES SCREEN URINE NEGATIVE (NEGATIVE); CANNABINOID SCREEN, URINE POSITIVE (NEGATIVE); COCAINE SCREEN URINE NEGATIVE (NEGATIVE); METHADONE STAT NEGATIVE (NEGATIVE); OPIATE SCREEN URINE NEGATIVE (NEGATIVE); OXYCODONE STAT NEGATIVE (NEGATIVE); PROPOXYPHENE STAT NEGATIVE (NEGATIVE); TRICYCLIC ANTIDEPRESSANTS SCRE NEGATIVE (NEGATIVE)
[2022-10-08] MEDS ORDERED: PROPOFOL DRIP (ICU) 100 ML IV ONE (15:25)
[2022-10-08] MEDS ORDERED: NS IV 1000 ML 1,000 ML ONE (15:29)
[2022-10-08] MEDS: dilTIAZem DRIP PRE-MIX 125 ML IV SCH ×2 (15:34→15:57)
--- NOTE | 2022-10-08 15:49 | Diagnostic Imaging Report ---
EXAMINATION: Chest, one view. HISTORY: Intubation. Chest pain. COMPARISON: Chest radiograph performed earlier the same date. FINDINGS: There has been placement of an endotracheal tube with the tip overlying the trachea approximately 5 cm above the jeremias. The lung volumes are normal. Increasing hazy opacities are seen in the lung apices. No focal consolidation is seen. No large pleural effusion or pneumothorax is seen. The cardiomediastinal silhouette is normal in size and contour. No acute osseous abnormality is seen. IMPRESSION: 1. Interval intubation with appropriate configuration of the endotracheal tube. 2. Increased hazy opacities in the lung apices, which may be partially due to technique. Dictated by: Dictated on workstation # [id number]
[2022-10-08] MEDS ORDERED: LACTULOSE SYRUP 10GM/15ML (ENULOSE) 30ML UDC PO PRN (17:00)
[2022-10-08] MEDS ORDERED: ACETAMINOPHEN 325 MG TABLET PO PRN (17:00)
[2022-10-08] MEDS ORDERED: diphenhydrAMINE 50 MG/ML INJ (BENADRYL) IVP PRN (17:00)
[2022-10-08] MEDS ORDERED: LORazepam/NS DRIP 100 ML IV SCH (17:00)
[2022-10-08] MEDS ORDERED: BISACODYL 10 MG SUPP (DULCOLAX) PR PRN (17:00)
[2022-10-08] MEDS ORDERED: MILK OF MAGNESIA 400 MG/5 ML 30 ML UDC PO PRN (17:00)
[2022-10-08] MEDS ORDERED: dilTIAZem DRIP PRE-MIX 125 ML IV SCH (17:00)
[2022-10-08] MEDS ORDERED: NS IV 500 ML 500 ML IV PRN (17:00)
[2022-10-08] MEDS ORDERED: ANTACID SUSP 30 ML UDC (MYLANTA) PO PRN (17:00)
[2022-10-08] MEDS ORDERED: CALCIUM CARBONATE 500 MG (TUMS) TAB.CHEW PO PRN (17:00)
[2022-10-08] MEDS ORDERED: diphenhydrAMINE 25 MG TAB (BENADRYL) PO PRN (17:00)
[2022-10-08 17:27] VITALS: BP 127/94
--- NOTE | 2022-10-08 17:31 | Tele-ICU Consult ---
History of Present Illness History of Present Illness Date Seen by Provider: Oct 08, 2022 Time Seen by Provider: 17:44 Date of Admission 10/08/22 History of Present Illness (Tele-ICU Physician , consultation) Available chart/ vitals / labs / Images reviewed H&P is from ER notes Patient's information available about PMH, allergy reviewed in EMR. ROS as per chart and RN report Video assessment done using teleICU camera, rest of exam as per RN Discussed with RN. This gentleman with a past medical history of for decreased ejection fraction, atrial fibrillation with rapid ventricular rate, methamphetamine and alcohol abuse presented to the emergency room with a complaint of chest pain and he is found to have a twitchings, picking at skin and rolling around the bed con tinuously. As he appears to be in a withdrawal state he is intubated and put on mechanical ventilation. He is started on diltiazem drip and admitted to the intensive care unit. Further details not available. Impression 1. Acute hypoxic respiratory failure 2. Chest pain with elevated troponin rule out non-STEMI 3. Atrial fibrillation with rapid ventricular rate. 4. Acute on chronic systolic congestive heart failure 5. Acute and chronic methamphetamine abuse. 6. Rule out sepsis Recommendations 1. Mechanical ventilatory support tidal volume 500, 50% FiO2, 14 rate and PEEP of 5. We will do a blood gas and change vent setting accordingly 2. Diltiazem drip per cardiology 3. DVT prophylaxis and ulcer prophylaxis 4. Monitor for withdrawal symptoms and sedate accordingly. Plans in coordination with consultants and bedside primary MDs. Reviewed with LICENSED PRACTICAL VOCATIONAL NURSE. Allergies and Home Medications Allergies Coded Allergies: hydrocodone (Verified Allergy, Severe, ITCHING, 08/05/22) Penicillins (Verified Allergy, Unknown, 11/09/20) Home Medications Docusate Sodium 100 Mg Capsule, 100 MG PO BID Prescribed by: SILVIA CUELLAR on 08/05/22 2209 Furosemide 40 Mg Tablet, 40 MG PO DAILY, (Reported) Gabapentin 600 Mg Tablet, 600 MG PO TID, (Reported) Hydroxyzine HCl 50 Mg Tablet, 50 MG PO TID PRN for ANXIETY, (Reported) Metoprolol Succinate 25 Mg Tab.er.24h, 25 MG PO DAILY Prescribed by: JACOBY LINK on 07/06/22 0900 Mirtazapine 15 Mg Tablet, 7.5 MG PO DAILY, (Reported) TAKES OF A (15MG) TABLET Olanzapine 5 Mg Tablet, 5 MG PO DAILY, (Reported) Oxycodone HCl/Acetaminophen 1 Each Tablet, 1 TAB PO Q4H Prescribed by: SILVIA CUELLAR on 08/05/222208 Oxycodone HCl/Acetaminophen 1 Each Tablet, 1 TAB PO Q6H PRN for PAIN-SEVERE (8- 10) Prescribed by: Ross Arriaza on 08/25/221643 Pantoprazole Sodium 40 Mg Tablet.dr, 40 MG PO DAILY Prescribed by: JACOBY LINK on 07/06/22899 Polyethylene Glycol 3350 17 Gram Powd.pack, 17 GM PO DAILY PRN for CONSTIPATION- 1ST LINE Prescribed by: JACOBY LINK on 07/06/22899 Rivaroxaban 20 Mg Tablet, 20 MG PO DAILY@1700 Prescribed by: JACOBY LINK on 07/06/22899 Ropinirole HCl 0.5 Mg Tablet, 0.5 MG PO DAILY, (Reported) Sertraline HCl 50 Mg Tablet, 50 MG PO DAILY, (Reported) Spironolactone 25 Mg Tablet, 25 MG PO DAILY, (Reported) Sulfamethoxazole/Trimethoprim 1 Each Tablet, 1 EACH PO BID Prescribed by: SILVIA CUELLAR on 08/05/222208 Sulfamethoxazole/Trimethoprim 1 Each Tablet, 1 EACH PO BID Prescribed by: Ross Arriaza on 08/25/221642 Past Medical/Social/Family Hx Patient Social History Tobacco Use?: Yes Tobacco type used: Cigarettes Substance use?: Yes Substance type: Methamphetamine, Marijuana Alcohol Use?: Yes Pt stated abuse/neglect: No Immunizations Up To Date Influenza Vaccine Up-to-Date: No; Not Current First/Initial COVID19 Vaccinat: N/A Second COVID19 Vaccination [place]: N/A Tetanus Booster (TDap): Unknown Hepatitis A: No Hepatitis B: No TB Skin Test: None Current Status Advance Directives: Unable to obtain Communicates: Verbally Primary Language: [place] Preferred Spoken Language: [place] Implanted or Applied Medical D: None Past Medical History AF Meth use Family Medical History Family Hx: SOCIAL HISTORY: -ETOH--REGULAR USE -DRUGS--METHAMPHETAMINES -SMOKES 1 PPD PAST SURGICAL HISTORY: -APPENDECTOMY -HERNIA REPAIR -CARDIOVERSIONS ECHOCARDIOGRAM 11/13/20--EF 30-35%, NO REGIONAL WALL MOTION ABNORMALITIES. EXTREME NON-COMPLIANCE IN ALL ASPECTS OF CARE Review of Systems Constitutional: see HPI Focused Exam Height, Weight, BMI Height: '" Weight: lbs. oz. kg; 33.00 BMI Method: Exam Exam Patient acknowledged, consented, and participated in this virtual visit which was conducted using real time audio/video Vital Signs Date Time Temp Pulse Resp B/P (MAP) Pulse Ox O2 Delivery O2 Flow Rate FiO2 10/08/22 17:15 100 14 98 60 10/08/22 16:44 37.0 98 14 104/70 97 Mechanical Ventilator 10/08/22 15:57 99 105/75 10/08/22 15:54 101 14 97 60 10/08/22 14:32 102 129/113 10/08/22 13:30 37.0 105 22 127/94 (105) Height & Weight Height: '" Weight: lbs. oz. kg; 33.00 BMI Method: General Appearance: Anxious, Moderate Distress HEENT: PERRL/EOMI, TMs Normal, Normal ENT Inspection, Pharynx Normal Neck: Full Range of Motion, Normal Inspection, Non Tender, Supple Respiratory: Chest Non Tender, Lungs Clear, Normal Breath Sounds Cardiovascular: No Edema, No JVD, Irregularly Irregular, Tachycardia Extremity: Normal Capillary Refill, Normal Inspection, Normal Range of Motion, No Pedal Edema Neurologic/Psychiatric: Alert, Oriented x3, No Motor/Sensory Deficits; No Normal Mood/Affect Skin: Normal Color, Warm/Dry Results Lab Laboratory Tests 10/08/22 13:39 Assessment/Plan Assessment/Plan as above Critical Care: Ventilator Management Time spent with patient (mins): 35 JUS JOSEPH MD Oct 08, 2022 17:31
[2022-10-08] MEDS: DexMEDEtomidine 250 ML DRIP 250 ML IV SCH (17:42)
[2022-10-08] MEDS: NS IV 1000 ML 1,000 ML IV SCH (17:42)
--- NOTE | 2022-10-08 17:49 | History & Physical-Hospitalist ---
History of Present Illness HPI/Chief Complaint Chief complaint: Respiratory failure HPI: This is a 42-year-old male known meth user who presented to the ER with shortness of breath was found to have atrial fibrillation with rapid ventricular response with congestive heart failure and ultimately required intubation. He was found to have meth in his pockets and the police were called and took that supply. Source: RN/MD, old records Exam Limitations: no limitations Date Seen 10/08/22 Time Seen by a Provider: 18:00 [facility]: Erin Parsons DO Attending Physician: Erin Parsons DO Referring Physician Date of Admission Oct 08, 2022 at 15:15 Home Medications & Allergies Home Medications Reviewed patient Home Medication Reconciliation performed by pharmacy medication reconciliations process control technician and/or nursing. Patients Allergies have been reviewed. Allergies Allergies Coded Allergies hydrocodone (Verified Allergy, Severe, ITCHING, 08/05/22) Penicillins (Verified Allergy, Unknown, 11/09/20) Past Kkjfrsr-Bezcyd-Dozqhd Hx Patient Social History Marrital Status: single Employed/Student: unemployed Tobacco Use?: Yes Tobacco type used: Cigarettes Smoking Status: Current Everyday Smoker Substance use?: Yes Substance type: Methamphetamine, Marijuana Alcohol Use?: Yes Pt feels they are or have been: No Immunizations Up To Date Date of Influenza Vaccine: Aug 09, 2020 First/Initial COVID19 Vaccinat: N/A Second COVID19 Vaccination [place]: N/A Tetanus Booster (TDap): Unknown Hepatitis A: No Hepatitis B: No Current Status Advance Directives: Unable to obtain Communicates: Verbally Primary Language: Angolan Preferred Spoken Language: Angolan Implanted or Applied Medical D: None Past Medical History Surgeries: Abdominal, Appendectomy Atrial Fibrillation, Cardiomyopathy, High Cholesterol, Hypertension Gastroesophageal Reflux Blood Disorders: No AF Meth use Family Medical History Reviewed Nursing Family Hx No Pertinent Family Hx SOCIAL HISTORY: -ETOH--REGULAR USE -DRUGS--METHAMPHETAMINES -SMOKES 1 PPD PAST SURGICAL HISTORY: -APPENDECTOMY -HERNIA REPAIR -CARDIOVERSIONS ECHOCARDIOGRAM 11/13/20--EF 30-35%, NO REGIONAL WALL MOTION ABNORMALITIES. EXTREME NON-COMPLIANCE IN ALL ASPECTS OF CARE Review of Systems Constitutional: see HPI Physical Exam Physical Exam Vital Signs Vital Signs - First Documented 10/08/22 10/08/22 10/08/22 10/08/22 13:30 15:54 16:44 17:33 Temp 37.0 Pulse 105 Resp 22 B/P (MAP) 127/94 (105) Pulse Ox 97 O2 Delivery Mechanical Ventilator O2 Flow Rate 60.00 FiO2 60 Capillary Refill : Height, Weight, BMI Height: '" Weight: lbs. oz. kg; 33.00 BMI Method: General Appearance: Chronically ill, Other (Intubated and sedated) Respiratory: Lungs Clear Cardiovascular: Irregularly Irregular, Tachycardia Results Results/Procedures Labs Laboratory Tests 10/08/22 13:39 Patient resulted labs reviewed. Assessment/Plan Admission Diagnosis Assessment: Acute respiratory failure requiring intubation A. fib with RVR Congestive heart failure Rhabdomyolysis Methamphetamine user Plan: Intubation Supportive care Cardizem drip Admission Status: Inpatient Order (span 2 midnights) Reason for Inpatient Admission: Respiratory failure Clinical Quality Measures AMI/AHF: ASA po Prior to arrival: ERIN Maxwell DO Oct 08, 2022 17:49
[2022-10-08] MEDS: PROPOFOL DRIP (ICU) 100 ML IV SCH ×2 (18:20→19:24)
[2022-10-08] MEDS ORDERED: FLU QUADRIvalent (6 months+) 60 mcg/0.5 ml 2022-23 (Fluzone) IM ONE (19:00)
[2022-10-08] MEDS ORDERED: RT-ALBUTEROL SULF 2.5 MG/3 ML PRE-MIX VIAL INH PRN (19:00)
[2022-10-08 19:03] VITALS: BP 97/78
[2022-10-08] MEDS ORDERED: SUCCINYLCHOLINE INJ 20 MG/1 ML 10 ML VIAL INJ ONE (19:08)
[2022-10-08] MEDS ORDERED: ETOMIDATE IV SOLN 20 MG/10 ML VIAL IV ONE (19:08)
[2022-10-08] MEDS ORDERED: fentaNYL INJ 100 MCG/2 ML AMP IV ONE (19:08)
[2022-10-08] MEDS ORDERED: MIDAZOLAM 5 MG/5 ML (VERSED) VIAL INJ ONE (19:08)
[2022-10-08] MEDS: RT-ALBUTEROL SULF 2.5 MG/3 ML PRE-MIX VIAL INH SCH (19:16)
[2022-10-08] MEDS: fentaNYL DRIP PRE-MIX 250 ML IV SCH (19:25)
[2022-10-08] MEDS: DOCUSATE SODIUM 100 MG (COLACE) CAP PO SCH (20:58)
[2022-10-08] MEDS: SENNOSIDES 8.6 MG (SENOKOT) TAB PO SCH (20:58)
[2022-10-08 22:16] VITALS: BP 101/71
[2022-10-09] MEDS: NS IV 1000 ML 1,000 ML IV SCH ×3 (00:54→19:51)
[2022-10-09] MEDS: PROPOFOL DRIP (ICU) 100 ML IV SCH ×5 (00:54→20:55)
[2022-10-09 02:26] VITALS: BP 99/64
[2022-10-09 04:53] LABS: ABG OXYGEN SATURATION 97 % (94-100); ABG PCO2 39 MMHG (35-45); ABG PH 7.35 (7.37-7.43); ABG PO2 87 MMHG (79-93)
[2022-10-09 04:54] LABS: ALLENS TEST YES-POS; INSPIRED O2 30%; PATIENT TEMP 36.3; VENTILATOR YES
[2022-10-09] MEDS: POTASSIUM CL 10MEQ/50ML IVPB 50 ML IV SCH ×3 (04:55→06:29)
[2022-10-09] MEDS: KCL 20 MEQ TAB (K-DUR) PO SCH (04:55)
[2022-10-09] MEDS: MAGNESIUM 1 GM/100 ML IVPB 100 ML IV SCH (04:55)
--- NOTE | 2022-10-09 05:02 | Progress Note - Hospitalist ---
Subjective HPI/CC On Admission Date Seen by Provider: Oct 09, 2022 Time Seen by Provider: 05:00 Chief complaint: Respiratory failure HPI: This is a 42-year-old male known meth user who presented to the ER with shortness of breath was found to have atrial fibrillation with rapid ventricular response with congestive heart failure and ultimately required intubation. He was found to have meth in his pockets and the police were called and took that supply. Subjective/Events-last exam Still intubated Patient gets very aggressive if sedation is weaned Objective Exam Vital Signs Vital Signs Date Time Temp Pulse Resp B/P (MAP) Pulse Ox O2 Delivery O2 Flow Rate FiO2 10/09/22 08:04 36.4 10/09/22 08:00 78 17 96/68 (77) 95 Mechanical Ventilator 30.00 10/09/22 07:33 30 Capillary Refill : Less Than 3 Seconds General Appearance: Chronically ill, Other (Sedated and ventilated) Respiratory: Lungs Clear Cardiovascular: Regular Rate, Rhythm Results/Procedures Lab Laboratory Tests 10/08/22 13:39 10/09/22 04:42 Patient resulted labs reviewed. Assessment/Plan Assessment and Plan Assess & Plan/Chief Complaint Assessment: Acute respiratory failure requiring intubation A. fib with RVR Congestive heart failure Rhabdomyolysis Methamphetamine user Plan: Intubation Supportive care [place] Clinical Quality Measures AMI/AHF: ASA po Prior to arrival: BK Maxwell DO Oct 09, 2022 05:02
[2022-10-09 05:17] LABS: BASOPHILS % (AUTO) 0 % (0-10); EOSINOPHILS # (AUTO) 0.7 10^3/uL (0.0-0.3); EOSINOPHILS % (AUTO) 8 % (0-10); HEMATOCRIT 43 % (40-54); HEMOGLOBIN 13.3 g/dL (13.3-17.7); LYMPHOCYTES # (AUTO) 1.5 10^3/uL (1.0-4.0); LYMPHOCYTES % (AUTO) 17 % (12-44); MEAN CORPUSCULAR HEMOGLOBIN 28 pg (25-34); MEAN CORPUSCULAR HGB CONC 31 g/dL (32-36); MEAN CORPUSCULAR VOLUME 90 fL (80-99); MEAN PLATELET VOLUME 11.6 fL (9.0-12.2); MONOCYTES # (AUTO) 0.8 10^3/uL (0.0-1.0); MONOCYTES % (AUTO) 9 % (0-12); NEUTROPHILS # (AUTO) 5.9 10^3/uL (1.8-7.8); NEUTROPHILS % (AUTO) 66 % (42-75); PLATELET COUNT 143 10^3/uL (130-400); WHITE BLOOD COUNT 8.9 10^3/uL (4.3-11.0)
[2022-10-09 05:31] LABS: ALBUMIN 3.4 GM/DL (3.2-4.5); POTASSIUM 3.6 MMOL/L (3.6-5.0)
[2022-10-09 05:32] LABS: CALCIUM 8.5 MG/DL (8.5-10.1)
[2022-10-09 05:34] LABS: TOTAL PROTEIN 6.2 GM/DL (6.4-8.2)
[2022-10-09 05:35] LABS: BILIRUBIN,TOTAL 1.7 MG/DL (0.1-1.0)
[2022-10-09 05:37] LABS: CREATININE SERUM 0.83 MG/DL (0.60-1.30); PHOSPHORUS 2.6 MG/DL (2.3-4.7)
[2022-10-09 05:40] LABS: MAGNESIUM 1.9 MG/DL (1.6-2.4)
[2022-10-09] MEDS: ENOXAPARIN 100 MG/1 ML (LOVENOX) SYR SC SCH ×2 (05:41→17:45)
[2022-10-09 05:43] LABS: HDL CHOLESTEROL 22 MG/DL (40-60); TRIGLYCERIDES 90 MG/DL (<150); VLDL CHOLESTEROL 18 MG/DL (5-40)
[2022-10-09 05:44] LABS: CHOLESTEROL 130 MG/DL (< 200)
--- NOTE | 2022-10-09 06:23 | Diagnostic Imaging Report ---
INDICATION: Dyspnea. Comparison is made with prior examination of 10/08/2022. FINDINGS: There is cardiomegaly. There is some venous congestion. Endotracheal tube is in satisfactory position. There is no pleural effusion or pneumothorax. The mediastinum is unremarkable. IMPRESSION: Cardiomegaly and some central pulmonary venous congestion. Dictated by: Dictated on workstation # [id number]
[2022-10-09 07:33] VITALS: BP 86/59
--- NOTE | 2022-10-09 07:45 | Tele-ICU Progress Note ---
Subjective Date Seen by a Provider: Oct 09, 2022 Time Seen by a Provider: 10:29 Subjective/Events-last exam (Tele-ICU Physician , ) Available chart/ vitals / labs / Images reviewed H&P is from ER notes Patient's information available about PMH, allergy reviewed in EMR. ROS as per chart and RN report Video assessment done using teleICU camera, rest of exam as per RN Discussed with RN. This gentleman with a past medical history of for decreased ejection fraction, atrial fibrillation with rapid ventricular rate, methamphetamine and alcohol abuse presented to the emergency room with a complaint of chest pain and he is found to have a twitchings, picking at skin and rolling around the bed continuously. As he appears to be in a withdrawal state he is intubated and put on mechanical ventilation. He is started on diltiazem drip and admitted to the intensive care unit. Further details not available. 10/09/22. He is agitated on and off requring to increase sedation. urine is some what pinkinsh. Impression 1. Acute hypoxic respiratory failure requiring intubation and mechanical ventilation 2. Chest pain with elevated troponin rule out non-STEMI 3. Atrial fibrillation with rapid ventricular rate. 4. Acute on chronic systolic congestive heart failure 5. Acute and chronic methamphetamine abuse. 6. Rule out sepsis. 7. monitor for hematuria Recommendations 1. Mechanical ventilatory support tidal volume 500, 50% FiO2, 14 rate and PEEP of 5. He is not ready for SBT due to agitation. 2. Diltiazem drip per cardiology 3. DVT prophylaxis and ulcer prophylaxis 4. Monitor for withdrawal symptoms and sedate accordingly. Plans in coordination with consultants and bedside primary MDs. Reviewed with CLINICAL DERMATOLOGIST. Sepsis Event Evaluation Height, Weight, BMI Height: '" Weight: lbs. oz. kg; 35.95 BMI Method: Exam Exam Patient acknowledged, consented, and participated in this virtual visit which was conducted using real time audio/video Vital Signs Date Time Temp Pulse Resp B/P (MAP) Pulse Ox O2 Delivery O2 Flow Rate FiO2 10/09/22 07:21 95 Mechanical Ventilator 30 10/09/22 07:19 30 10/09/22 06:00 81 14 89/64 (72) 96 Mechanical Ventilator 30.00 10/09/22 05:00 75 14 92/61 (71) 96 Mechanical Ventilator 30.00 10/09/22 04:54 77 87/55 10/09/22 04:00 70 14 93/61 (72) 94 Mechanical Ventilator 30.00 10/09/22 03:45 36.1 74 14 91/59 (70) 95 Mechanical Ventilator 30.00 10/09/22 03:40 96 Mechanical Ventilator 30 10/09/22 03:30 30 10/09/22 03:00 89 14 90/62 (71) 95 Mechanical Ventilator 30.00 10/09/22 02:26 77 15 95 30 10/09/22 02:00 82 14 90/57 (68) 95 Mechanical Ventilator 30.00 10/09/22 01:00 85 10/09/22 01:00 85 14 95/65 (75) 96 Mechanical Ventilator 30.00 10/09/22 00:54 84 97/63 10/09/22 00:00 90 14 101/57 (72) 96 Mechanical Ventilator 30.00 10/08/22 23:25 92 106/76 10/08/22 23:24 92 106/76 10/08/22 23:20 30 10/08/22 23:20 36.1 92 14 106/76 (86) 96 Mechanical Ventilator 30.00 10/08/22 23:20 96 Mechanical Ventilator 30 10/08/22 22:20 92 106/76 10/08/22 22:16 85 16 96 30 10/08/22 22:15 95 14 101/71 (81) 98 Mechanical Ventilator 40.00 10/08/22 21:42 92 106/76 10/08/22 21:00 96 14 111/85 (94) 98 Mechanical Ventilator 40.00 10/08/22 20:00 96 14 111/74 (86) 99 Mechanical Ventilator 40.00 10/08/22 20:00 99 Mechanical Ventilator 40 10/08/22 19:56 92 106/76 10/08/22 19:30 100 14 109/85 (93) 99 Mechanical Ventilator 40.00 10/08/22 19:30 40 10/08/22 19:25 115 102/77 10/08/22 19:24 115 102/77 10/08/22 19:03 102 14 98 40 10/08/22 19:00 36.0 108 14 97/78 (84) 98 Mechanical Ventilator 40.00 10/08/22 19:00 94 10/08/22 18:00 109 14 102/67 (79) 99 Mechanical Ventilator 60.00 10/08/22 17:42 101 105/66 10/08/22 17:33 102 15 106/78 (87) 99 Mechanical Ventilator 60.00 10/08/22 17:32 108 10/08/22 17:27 37.0 105 97 21 10/08/22 17:15 100 14 98 60 10/08/22 17:00 99 Mechanical Ventilator 60 10/08/22 16:44 37.0 98 14 104/70 97 Mechanical Ventilator 10/08/22 15:57 99 105/75 10/08/22 15:54 101 14 97 60 10/08/22 14:32 102 129/113 10/08/22 13:30 37.0 105 22 127/94 (105) I & O 10/09/22 07:00 Intake Total 3270 ml Output Total 735 ml Balance 2535 ml Height & Weight Height: '" Weight: lbs. oz. kg; 35.95 BMI Method: General Appearance: Anxious, Moderate Distress HEENT: PERRL/EOMI, TMs Normal, Normal ENT Inspection, Pharynx Normal Neck: Full Range of Motion, Normal Inspection, Non Tender, Supple Respiratory: Chest Non Tender, Lungs Clear, Normal Breath Sounds Cardiovascular: No Edema, No JVD, Irregularly Irregular, Tachycardia Capillary Refill: Less Than 3 Seconds Extremity: Normal Capillary Refill, Normal Inspection, Normal Range of Motion, No Pedal Edema Neurologic/Psychiatric: Alert, Oriented x3, No Motor/Sensory Deficits; No Madina l Mood/Affect Skin: Normal Color, Warm/Dry Results Lab Laboratory Tests 10/08/22 13:39 10/09/22 04:42 Assessment/Plan Assessment/Plan as above Critical Care: Ventilator Management Time spent with patient (mins): 35 JUS JOSEPH MD Oct 09, 2022 07:45
--- NOTE | 2022-10-09 08:14 | Occ Therapy Progress Note ---
Therapy Progress Note OT order received, chart reviewed. Pt. currently ventilated due to medical processes. Will hold and treat when medically stable. Thank you for this referral. [id number] KIM HERNANDEZ OT Oct 09, 2022 08:14
--- NOTE | 2022-10-09 08:17 | Physical Therapy Progress Note ---
Therapy Progress Note PT orders received. Pt is currently on mechanical ventilation. PT will eval when Pt appropriate to participate. ISA KOWALSKI DPT Oct 09, 2022 08:17
[2022-10-09] MEDS: SENNOSIDES 8.6 MG (SENOKOT) TAB PO SCH ×2 (09:22→20:47)
[2022-10-09] MEDS: DOCUSATE SODIUM 100 MG (COLACE) CAP PO SCH ×2 (09:22→20:47)
[2022-10-09 10:05] VITALS: BP 83/59
[2022-10-09] MEDS: RT-ALBUTEROL SULF 2.5 MG/3 ML PRE-MIX VIAL INH SCH ×2 (10:05→21:50)
--- NOTE | 2022-10-09 10:41 | Consultation-Cardiology ---
HPI-Cardiology Cardiology Consultation Date of Consultation 10/09/22 Date of Admission Time Seen by Provider: 10:36 Indication: Acute respiratory failure HPI 42-year-old gentleman with history of congestive heart failure, chronic compensated left ventricular systolic dysfunction. Presented to the emergency room with increasing shortness of breath, he was in atrial fibrillation, known to have paroxysmal atrial fibrillation. He was tachycardic. Patient situation deteriorated quickly and required intubation. Currently he is sedated, ventilator dependent. Unable to provide any further history, history was obtained by reviewing his records. Home Medications & Allergies Allergies: Coded Allergies: hydrocodone (Verified Allergy, Severe, ITCHING, 08/05/22) Penicillins (Verified Allergy, Unknown, 11/09/20) Home Medication List Reviewed: Yes EHJ-Yuldom-Hezyki Hx Patient Social History Marital Status: single Employed/Student: unemployed Drug of Choice: METHAMPHETAMINE, MARIJUANA Smoking Status: Current Everyday Smoker Type Used: Cigarettes 2nd Hand Smoke Exposure: Yes Recent Hopitalizations: No Have you traveled recently?: No Alcohol Use?: Yes Substance type: Amphetamines, Methamphetamine, Marijuana Immunizations Up To Date Tetanus Booster (TDap): Unknown Date of Influenza Vaccine: Aug 09, 2020 Past Medical History Discussed below Family Medical History Significant Family History: No Pertinent Family Hx Review of Systems-General Review of Systems Constitutional: see HPI, other (Unable to provide review of system) EENTM: see HPI Respiratory: see HPI Cardiovascular: see HPI Gastrointestinal: no symptoms reported, see HPI Genitourinary: no symptoms reported, see HPI Musculoskeletal: no symptoms reported, see HPI Skin: no symptoms reported, see HPI Psychiatric/Neurological: No Symptoms Reported, See HPI All Other Systems Reviewed Negative Unless Noted: Yes Reviewed Test Results Reviewed Test Results Lab Laboratory Tests Test 10/08/22 13:39 10/08/22 14:49 10/08/22 15:30 10/08/22 17:41 Range/Units White Blood Count 11.2 H 4.3-11.0 10^3/uL Red Blood Count 4.97 4.30-5.52 10^6/uL Hemoglobin 14.0 13.3-17.7 g/dL Hematocrit 44 40-54 % Mean Corpuscular Volume 88 80-99 fL Mean Corpuscular Hemoglobin 28 25-34 pg Mean Corpuscular Hemoglobin Concent 32 32-36 g/dL Red Cell Distribution Width 18.6 H 10.0-14.5 % Platelet Count 176 130-400 10^3/uL Mean Platelet Volume 11.5 9.0-12.2 fL Immature Granulocyte % (Auto) 0 % Neutrophils (%) (Auto) 71 42-75 % Lymphocytes (%) (Auto) 14 12-44 % Monocytes (%) (Auto) 13 H 0-12 % Eosinophils (%) (Auto) 2 0-10 % Basophils (%) (Auto) 0 0-10 % Neutrophils # (Auto) 7.9 H 1.8-7.8 10^3/uL Lymphocytes # (Auto) 1.6 1.0-4.0 10^3/uL Monocytes # (Auto) 1.5 H 0.0-1.0 10^3/uL Eosinophils # (Auto) 0.2 0.0-0.3 10^3/uL Basophils # (Auto) 0.0 0.0-0.1 10^3/uL Immature Granulocyte # (Auto) 0.0 0.0-0.1 10^3/uL Prothrombin Time 17.4 H 12.2-14.7 SEC INR Comment 1.4 0.8-1.4 Activated Partial Thromboplast Time 35 24-35 SEC Sodium Level 136 135-145 MMOL/L Potassium Level 3.8 3.6-5.0 MMOL/L Chloride Level 104 98-107 MMOL/L Carbon Dioxide Level 21 21-32 MMOL/L Anion Gap 11 5-14 MMOL/L Blood Urea Nitrogen 20 H 7-18 MG/DL Creatinine 1.01 0.60-1.30 MG/DL Estimat Glomerular Filtration Rate 95 BUN/Creatinine Ratio 20 Glucose Level 108 H 70-105 MG/DL Calcium Level 9.6 8.5-10.1 MG/DL Corrected Calcium 9.4 8.5-10.1 MG/DL Magnesium Level 1.6 1.6-2.4 MG/DL Total Bilirubin 2.1 H 0.1-1.0 MG/DL Aspartate Amino Transf (AST/SGOT) 90 H 5-34 U/L Alanine Aminotransferase (ALT/SGPT) 44 0-55 U/L Alkaline Phosphatase 130 40-136 U/L Total Creatine Kinase 1861 H 30-200 U/L Creatine Kinase MB 36.4 *H <6.6 NG/ML Myoglobin 605.5 H 10.0-92.0 NG/ML Troponin I 0.036 H <0.028 NG/ML C-Reactive Protein High Sensitivity 0.57 H 0.00-0.50 MG/DL Total Protein 7.7 6.4-8.2 GM/DL Albumin 4.2 3.2-4.5 GM/DL Urine Color YELLOW Urine Clarity CLEAR Urine pH 5.0 5-9 Urine Specific [place] >=1.030 1.016-1.022 Urine Protein 2+ H NEGATIVE Urine Glucose (UA) NEGATIVE NEGATIVE Urine Ketones NEGATIVE NEGATIVE Urine Nitrite NEGATIVE NEGATIVE Urine Bilirubin 2+ H NEGATIVE Urine Urobilinogen 2.0 < = 1.0 MG/DL Urine Leukocyte Esterase NEGATIVE NEGATIVE Urine RBC (Auto) NEGATIVE NEGATIVE Urine RBC NONE /HPF Urine WBC NONE /HPF Urine Crystals PRESENT H /LPF Urine Amorphous Sediment RARE JIHAN URATES H /LPF Urine Bacteria NEGATIVE /HPF Urine Casts PRESENT /LPF Urine Hyaline Casts 0-2 H /LPF Urine Mucus NEGATIVE /LPF Urine Culture Indicated NO Urine Opiates Screen NEGATIVE NEGATIVE Urine Oxycodone Screen NEGATIVE NEGATIVE Urine Methadone Screen NEGATIVE NEGATIVE Urine Propoxyphene Screen NEGATIVE NEGATIVE Urine Barbiturates Screen NEGATIVE NEGATIVE Ur Tricyclic Antidepressants Screen NEGATIVE NEGATIVE Urine Phencyclidine Screen NEGATIVE NEGATIVE Urine Amphetamines Screen POSITIVE H NEGATIVE Urine Methamphetamines Screen POSITIVE H NEGATIVE Urine Benzodiazepines Screen NEGATIVE NEGATIVE Urine Cocaine Screen NEGATIVE NEGATIVE Urine Cannabinoids Screen POSITIVE H NEGATIVE Influenza Type A (RT-PCR) Not Detected Not Detecte Influenza Type B (RT-PCR) Not Detected Not Detecte SARS-CoV-2 RNA (RT-PCR) Not Detected Not Detecte Triglycerides Level 90 <150 MG/DL Test 10/08/22 17:52 10/09/22 04:42 10/09/22 04:47 Range/Units Procalcitonin 0.06 <0.10 NG/ML White Blood Count 8.9 4.3-11.0 10^3/uL Red Blood Count 4.74 4.30-5.52 10^6/uL Hemoglobin 13.3 13.3-17.7 g/dL Hematocrit 43 40-54 % Mean Corpuscular Volume 90 80-99 fL Mean Corpuscular Hemoglobin 28 25-34 pg Mean Corpuscular Hemoglobin Concent 31 L 32-36 g/dL Red Cell Distribution Width 18.9 H 10.0-14.5 % Platelet Count 143 130-400 10^3/uL Mean Platelet Volume 11.6 9.0-12.2 fL Immature Granulocyte % (Auto) 0 % Neutrophils (%) (Auto) 66 42-75 % Lymphocytes (%) (Auto) 17 12-44 % Monocytes (%) (Auto) 9 0-12 % Eosinophils (%) (Auto) 8 0-10 % Basophils (%) (Auto) 0 0-10 % Neutrophils # (Auto) 5.9 1.8-7.8 10^3/uL Lymphocytes # (Auto) 1.5 1.0-4.0 10^3/uL Monocytes # (Auto) 0.8 0.0-1.0 10^3/uL Eosinophils # (Auto) 0.7 H 0.0-0.3 10^3/uL Basophils # (Auto) 0.0 0.0-0.1 10^3/uL Immature Granulocyte # (Auto) 0.0 0.0-0.1 10^3/uL Sodium Level 137 135-145 MMOL/L Potassium Level 3.6 3.6-5.0 MMOL/L Chloride Level 110 H 98-107 MMOL/L Carbon Dioxide Level 18 L 21-32 MMOL/L Anion Gap 9 5-14 MMOL/L Blood Urea Nitrogen 18 7-18 MG/DL Creatinine 0.83 0.60-1.30 MG/DL Estimat Glomerular Filtration Rate 111 BUN/Creatinine Ratio 22 Glucose Level 82 70-105 MG/DL Calcium Level 8.5 8.5-10.1 MG/DL Corrected Calcium 9.0 8.5-10.1 MG/DL Phosphorus Level 2.6 2.3-4.7 MG/DL Magnesium Level 1.9 1.6-2.4 MG/DL Total Bilirubin 1.7 H 0.1-1.0 MG/DL Aspartate Amino Transf (AST/SGOT) 66 H 5-34 U/L Alanine Aminotransferase (ALT/SGPT) 33 0-55 U/L Alkaline Phosphatase 111 40-136 U/L Total Creatine Kinase 913 H 30-200 U/L Total Protein 6.2 L 6.4-8.2 GM/DL Albumin 3.4 3.2-4.5 GM/DL Triglycerides Level 90 <150 MG/DL Cholesterol Level 130 < 200 MG/DL LDL Cholesterol Direct 104 1-129 MG/DL VLDL Cholesterol 18 5-40 MG/DL HDL Cholesterol 22 L 40-60 MG/DL Blood Gas Puncture Site RIGHT RADIAL Blood Gas Patient Temperature 36.3 Arterial Blood pH 7.35 L 7.37-7.43 Arterial Blood Partial Pressure CO2 39 35-45 MMHG Arterial Blood Partial Pressure O2 87 79-93 MMHG Arterial Blood HCO3 21 L 23-27 MMOL/L Arterial Blood Total CO2 22.0 21.0-31.0 MMOL/L Arterial Blood Oxygen Saturation 97 94-100 % Arterial Blood Base Excess -4.0 L -2.5-2.5 MMOL/L Michele Test YES-POS Blood Gas Ventilator Setting YES Blood Gas Inspired Oxygen 30% Physical Exam Physical Exam Vital Signs Vital Signs - First Documented 10/08/22 10/08/22 10/08/22 10/08/22 13:30 15:54 16:44 17:33 Temp 37.0 Pulse 105 Resp 22 B/P (MAP) 127/94 (105) Pulse Ox 97 O2 Delivery Mechanical Ventilator O2 Flow Rate 60.00 FiO2 60 Capillary Refill : Less Than 3 Seconds Height, Weight, BMI Height: '" Weight: lbs. oz. kg; 35.95 BMI Method: General Appearance: Chronically ill, Other (Sedated and ventilated) HEENT: PERRL/EOMI, TMs Normal, Normal ENT Inspection, Pharynx Normal Neck: Full Range of Motion, Normal Inspection, Non Tender, Supple Respiratory: Lungs Clear Cardiovascular: Regular Rate, Rhythm Gastrointestinal: Normal Bowel Sounds, Non Tender, Soft, Distended Extremity: Normal Capillary Refill, Normal Inspection, Normal Range of Motion, No Pedal Edema Neurologic/Psychiatric: Alert, Oriented x3, No Motor/Sensory Deficits; No Normal Mood/Affect Skin: Normal Color, Warm/Dry A/P-Cardiology Admission Diagnosis Acute respiratory failure Congestive heart failure, acute on chronic left ventricular systolic dysfunction, nonischemic cardiomyopathy Chronic permanent atrial fibrillation Methamphetamine use Assessment/Plan Acute respiratory failure, ventilator dependent Pulmonary edema, started on diuretics. Continue to monitor closely Congestive heart failure, acute on chronic left ventricular systolic dysfunction. Last echo was done in April 2022 with ejection fraction 40 to 45% with biatrial enlargement, moderate mitral regurgitation, pulmonary artery pressure 45 to 50 mmHg. Persistent/permanent atrial fibrillation, rate usually controlled Currently tachycardic. History of ablation done in [place] in late 2020, refusing any further ablation. He has been seen and managed by Dr. Bejarano Maintained on Eliquis Nonischemic cardiomyopathy, reporting cardiac catheterization done in [place] around 2019 did not show any obstructive disease. History of methamphetamine abuse. Still using it intermittently, he was found to have methamphetamine in his pocket during this hospitalization EtOH abuse. Hypertension Hyperlipidemia Tobaccoism, educated on smoking cessation History of noncompliance with medication or medical instruction History of elevated liver enzymes. Probably underlying cirrhosis seen on CTA of the abdomen in the past. Clinical Quality Measures AMI/AHF: ASA po Prior to arrival: DEMIAN Casas MD Oct 09, 2022 10:41
[2022-10-09] MEDS ORDERED: NS (IVPB) 500 ML IV ONE (13:45)
[2022-10-09 14:37] VITALS: BP 91/68
[2022-10-09] MEDS: dilTIAZem DRIP PRE-MIX 125 ML IV SCH (15:15)
[2022-10-09] MEDS: DexMEDEtomidine 250 ML DRIP 250 ML IV SCH (16:27)
[2022-10-09] MEDS: fentaNYL DRIP PRE-MIX 250 ML IV SCH (16:28)
[2022-10-09 19:30] VITALS: BP 67/68
[2022-10-09 21:50] VITALS: BP 108/78
[2022-10-10] MEDS: PROPOFOL DRIP (ICU) 100 ML IV SCH ×5 (01:10→23:32)
[2022-10-10 02:09] VITALS: BP 102/68
[2022-10-10] MEDS ORDERED: NS IV 1000 ML 1,000 ML IV SCH (02:15)
[2022-10-10] MEDS: fentaNYL DRIP PRE-MIX 250 ML IV SCH ×2 (03:30→17:35)
[2022-10-10] MEDS: ENOXAPARIN 100 MG/1 ML (LOVENOX) SYR SC SCH ×2 (05:01→17:34)
[2022-10-10 05:03] LABS: BASOPHILS % (AUTO) 0 % (0-10); EOSINOPHILS # (AUTO) 0.4 10^3/uL (0.0-0.3); EOSINOPHILS % (AUTO) 3 % (0-10); HEMATOCRIT 47 % (40-54); HEMOGLOBIN 14.2 g/dL (13.3-17.7); LYMPHOCYTES # (AUTO) 0.6 10^3/uL (1.0-4.0); LYMPHOCYTES % (AUTO) 4 % (12-44); MEAN CORPUSCULAR HEMOGLOBIN 28 pg (25-34); MEAN CORPUSCULAR HGB CONC 30 g/dL (32-36); MEAN CORPUSCULAR VOLUME 94 fL (80-99); MEAN PLATELET VOLUME 11.9 fL (9.0-12.2); MONOCYTES % (AUTO) 6 % (0-12); NEUTROPHILS # (AUTO) 13.8 10^3/uL (1.8-7.8); NEUTROPHILS % (AUTO) 86 % (42-75); PLATELET COUNT 159 10^3/uL (130-400)
[2022-10-10] MEDS: NS IV 1000 ML 1,000 ML IV SCH (05:03)
--- NOTE | 2022-10-10 05:08 | Progress Note - Hospitalist ---
Subjective HPI/CC On Admission Date Seen by Provider: Oct 10, 2022 Time Seen by Provider: 05:00 Chief complaint: Respiratory failure HPI: This is a 42-year-old male known meth user who presented to the ER with shortness of breath was found to have atrial fibrillation with rapid ventricular response with congestive heart failure and ultimately required intubation. He was found to have meth in his pockets and the police were called and took that supply. Subjective/Events-last exam Patient stable but critical CPK decreasing Labs reviewed Urinary output decreased Objective Exam Vital Signs Vital Signs Date Time Temp Pulse Resp B/P (MAP) Pulse Ox O2 Delivery O2 Flow Rate FiO2 10/10/22 10:09 80 15 97 40 10/10/22 09:12 91/66 10/10/22 09:00 Mechanical Ventilator 40.00 10/10/22 08:00 37.4 Capillary Refill : Less Than 3 Seconds General Appearance: No Apparent Distress, WD/WN, Chronically ill, Other (Sedated and ventilated) Respiratory: Lungs Clear, Normal Breath Sounds Cardiovascular: Regular Rate, Rhythm Results/Procedures Lab Laboratory Tests 10/10/22 04:20 Patient resulted labs reviewed. Assessment/Plan Assessment and Plan Assess & Plan/Chief Complaint Assessment: Acute respiratory failure requiring intubation A. fib with RVR Congestive heart failure Rhabdomyolysis Methamphetamine user Plan: Intubation Supportive care [place] Critical Care Ventilator Management Clinical Quality Measures AMI/AHF: ASA po Prior to arrival: BK Maxwell DO Oct 10, 2022 05:08
[2022-10-10] MEDS ORDERED: DEXTROSE 50% 50 ML (IMS) SYR ONE (05:18)
[2022-10-10 05:21] LABS: ALBUMIN 3.4 GM/DL (3.2-4.5); POTASSIUM 4.2 MMOL/L (3.6-5.0)
[2022-10-10] MEDS: MAGNESIUM 1 GM/100 ML IVPB 100 ML IV SCH (05:21)
[2022-10-10] MEDS: KCL 20 MEQ TAB (K-DUR) PO SCH (05:21)
[2022-10-10] MEDS: POTASSIUM CL 10MEQ/50ML IVPB 50 ML IV SCH (05:21)
[2022-10-10 05:22] LABS: CALCIUM 8.5 MG/DL (8.5-10.1)
[2022-10-10 05:23] LABS: TOTAL PROTEIN 6.4 GM/DL (6.4-8.2)
[2022-10-10 05:25] LABS: BILIRUBIN,TOTAL 1.3 MG/DL (0.1-1.0)
[2022-10-10 05:27] LABS: CREATININE SERUM 1.11 MG/DL (0.60-1.30); PHOSPHORUS 3.1 MG/DL (2.3-4.7)
[2022-10-10 05:30] LABS: MAGNESIUM 1.7 MG/DL (1.6-2.4)
[2022-10-10] MEDS ORDERED: DEXTROSE 50% 50 ML (IMS) SYR IV PRN ×2 (05:30→06:00)
[2022-10-10 06:03] LABS: EOSINOPHILS % (MANUAL) 2 %; LYMPHOCYTES % (MANUAL) 3 %; MONOCYTES % (MANUAL) 7 %; NEUTROPHILS % (MANUAL) 88 %; RBC MORPH NORMAL
[2022-10-10] MEDS: RT-ALBUTEROL SULF 2.5 MG/3 ML PRE-MIX VIAL INH SCH ×2 (06:50→19:16)
[2022-10-10 06:51] VITALS: BP 108/78
--- NOTE | 2022-10-10 07:58 | Tele-ICU Progress Note ---
Subjective Date Seen by a Provider: Oct 10, 2022 Time Seen by a Provider: 07:52 Subjective/Events-last exam This gentleman with a past medical history of for decreased ejection fraction, atrial fibrillation with rapid ventricular rate, methamphetamine and alcohol abuse presented to the emergency room with a complaint of chest pain and he is found to have a twitchings, picking at skin and rolling around the bed continuou sly. As he appears to be in a withdrawal state he is intubated and put on mechanical ventilation. He is started on diltiazem drip and admitted to the intensive care uni current vent settings AC 14, Vt 500, FiO2 40%, PEEP 5, on IV Propofol @ 39IV Fentanyl @ 100, Precedex 0.6 NS @ 100 mL/h, had oliguria got IV bolus, only 60 mL over 3 hours CXR this am shows ET in good position, RLL infiltrate, A fib-off IV Cardizem was @ 5, HR in 60's NG output 800 mL12h, looks bilious Methamphetamine/withdrawal-on IV sedation Sepsis Event Evaluation Height, Weight, BMI Height: '" Weight: lbs. oz. kg; 36.82 BMI Method: Exam Exam Patient acknowledged, consented, and participated in this virtual visit which was conducted using real time audio/video Vital Signs Date Time Temp Pulse Resp B/P (MAP) Pulse Ox O2 Delivery O2 Flow Rate FiO2 10/10/22 07:30 67 91/59 10/10/22 06:51 78 15 98 40 10/10/22 06:00 77 14 97/70 (79) 94 Mechanical Ventilator 40.00 10/10/22 05:47 82 104/73 10/10/22 05:01 74 95/51 10/10/22 05:00 75 14 95/51 (66) 95 Mechanical Ventilator 40.00 10/10/22 04:00 74 14 89/59 (69) 95 Mechanical Ventilator 40.00 10/10/22 03:30 40 10/10/22 03:30 96 Mechanical Ventilator 40 10/10/22 03:30 75 108/65 10/10/22 03:30 37.2 75 17 106/66 (79) 96 Mechanical Ventilator 40.00 10/10/22 02:09 78 18 100 40 10/10/22 02:00 74 14 102/68 (79) 93 Mechanical Ventilator 40.00 10/10/22 01:10 76 105/63 10/10/22 01:00 76 14 105/63 (77) 94 Mechanical Ventilator 40.00 10/10/22 01:00 76 10/10/22 00:55 76 105/63 10/10/22 00:00 73 14 104/68 (80) 95 Mechanical Ventilator 40.00 10/09/22 23:10 95 Mechanical Ventilator 40 10/09/22 23:10 40 10/09/22 23:00 36.8 76 14 107/65 (79) 95 Mechanical Ventilator 40.00 10/09/22 22:00 71 14 109/64 (79) 96 Mechanical Ventilator 40.00 10/09/22 21:50 78 15 98 40 10/09/22 21:46 78 108/78 10/09/22 21:00 80 14 104/72 (83) 95 Mechanical Ventilator 40.00 10/09/22 20:55 70 110/72 10/09/22 20:24 78 108/71 10/09/22 20:24 78 108/71 10/09/22 20:00 78 14 108/71 (83) 95 Mechanical Ventilator 40.00 10/09/22 19:45 40 10/09/22 19:45 95 Mechanical Ventilator 40 10/09/22 19:45 36.6 10/09/22 19:30 71 17 96 40 10/09/22 19:00 37.1 68 14 105/66 (79) 94 Mechanical Ventilator 40.00 10/09/22 19:00 71 10/09/22 18:00 75 15 94/71 (79) 95 Mechanical Ventilator 30.00 10/09/22 17:46 72 94/71 10/09/22 17:00 71 14 90/61 (71) 95 Mechanical Ventilator 30.00 10/09/22 16:27 76 90/71 10/09/22 16:08 36.5 10/09/22 16:00 75 14 94/64 (74) 95 Mechanical Ventilator 30.00 10/09/22 16:00 95 Mechanical Ventilator 40 10/09/22 15:30 40 10/09/22 15:00 72 12 95/69 (78) 95 Mechanical Ventilator 30.00 10/09/22 14:37 77 14 94 40 10/09/22 14:00 68 13 90/69 (76) 94 Mechanical Ventilator 30.00 10/09/22 13:40 75 96/70 10/09/22 13:00 68 14 92/69 (77) 96 Mechanical Ventilator 30.00 10/09/22 12:35 74 10/09/22 12:15 97 Mechanical Ventilator 40 10/09/22 12:15 36.7 10/09/22 12:00 71 14 97/67 (77) 97 Mechanical Ventilator 30.00 10/09/22 11:07 40 10/09/22 11:00 72 14 91/71 (78) 97 Mechanical Ventilator 30.00 10/09/22 10:05 66 14 99 50 10/09/22 10:00 67 14 87/60 (69) 99 Mechanical Ventilator 30.00 10/09/22 09:21 66 86/64 10/09/22 09:00 75 14 91/63 (72) 98 Mechanical Ventilator 30.00 10/09/22 08:04 36.4 10/09/22 08:00 78 17 96/68 (77) 95 Mechanical Ventilator 30.00 I & O 10/10/22 07:00 Intake Total 6080 ml Output Total 1305 ml Balance 4775 ml Height & Weight Height: '" Weight: lbs. oz. kg; 36.82 BMI Method: General Appearance: Anxious, Moderate Distress HEENT: PERRL/EOMI, TMs Normal, Normal ENT Inspection, Pharynx Normal Neck: Full Range of Motion, Normal Inspection, Non Tender, Supple Respiratory: Chest Non Tender, Lungs Clear, Normal Breath Sounds, Rhonci Cardiovascular: No Edema, No JVD, Irregularly Irregular, Tachycardia Capillary Refill: Less Than 3 Seconds Gastrointestinal: normal bowel sounds, other (hypoactive BS) Extremity: Normal Capillary Refill, Normal Inspection, Normal Range of Motion, No Pedal Edema, Other (upper extrem edema but not lower) Neurologic/Psychiatric: Alert, Oriented x3, No Motor/Sensory Deficits; No Normal Mood/Affect; Other (sedated, not pulling on tubes) Skin: Normal Color, Warm/Dry Results Lab Laboratory Tests 10/08/22 13:39 10/09/22 04:42 10/10/22 04:20 Assessment/Plan Assessment/Plan Mechanical ventilation for drug withdrawal, does not look ready for SBT a fib-appears under control, will keep on IV Cardizem as can not give po meds right now Tomorrow will reaccess for sedation holiday and SBT Will give another fluid bolus due to oliguria, probably from NG drainage, has had several POC glucose in 60, will change IV to LR/D5W @ 100 mL/h, will also give 500 mL fluid bolus due to oliguria Critical Care: Ventilator Management CHAVA BARRETT MD Oct 10, 2022 07:58
--- NOTE | 2022-10-10 08:46 | Diagnostic Imaging Report ---
EXAMINATION: Chest 1 view HISTORY: Short of breath COMPARISON: 10/09/2022 FINDINGS: Endotracheal tube tip terminates 6 cm above the jeremias. Gastric tube is not fully resolved due to underpenetration. There are mild bilateral interstitial and airspace opacities. No pneumothorax. There is a small right pleural effusion. IMPRESSION: 1. Small right pleural effusion with mild bilateral interstitial and airspace opacities suggestive of edema. Dictated by: Dictated on workstation # [id number]
[2022-10-10] MEDS: DOCUSATE SODIUM 100 MG (COLACE) CAP PO SCH ×2 (08:59→21:32)
[2022-10-10] MEDS: SENNOSIDES 8.6 MG (SENOKOT) TAB PO SCH ×2 (08:59→21:32)
[2022-10-10] MEDS: PANTOPRAZOLE 40 MG (PROTONIX) VIAL IV SCH (08:59)
[2022-10-10] MEDS: DexMEDEtomidine 250 ML DRIP 250 ML IV SCH ×2 (09:12→23:32)
[2022-10-10] MEDS ORDERED: NS IV 1000 ML 500 ML IV SCH (09:45)
[2022-10-10 10:09] VITALS: BP 95/59
--- NOTE | 2022-10-10 10:40 | Cardiology Progress Note ---
Subjective Date Seen by Provider: Oct 10, 2022 Time Seen by Provider: 10:38 Subjective/Events-last exam Patient is sedated and intubated Review of Systems General: Other (Unable to provide review of system) Objective-Cardiology Exam Last Set of Vital Signs Vital Signs 10/10/22 10/10/22 10/10/22 08:00 10:00 10:09 Temp 37.4 Pulse 80 Resp 15 B/P (MAP) 95/59 (71) Pulse Ox 97 O2 Delivery Mechanical Ventilator O2 Flow Rate 40.00 FiO2 40 I&O Intake and Output 10/10/22 00:00 Intake Total 4680 ml Output Total 940 ml Balance 3740 ml Intake Oral 0 ml IV Total 4500 ml Other 180 ml Output Urine Total 940 ml General: Other (Sedated and intubated) HEENT: Atraumatic, PERRLA Neck: Supple Lungs: Normal Air Movement, Other (Bilateral rhonchi) Heart: Normal S1, Normal S2 Abdomen: Normal Bowel Sounds Extremities: No Clubbing, No Cyanosis Skin: No Rashes Neuro: Other (Sedated and intubated) Psych/Mental Status: Other (Sedated and intubated) Results Lab Laboratory Tests 10/10/22 04:20 A/P-Cardiology Admission Diagnosis Acute respiratory failure Congestive heart failure, acute on chronic left ventricular systolic dysfunction, nonischemic cardiomyopathy Chronic permanent atrial fibrillation Methamphetamine use Assessment/Plan Acute respiratory failure, ventilator dependent Pulmonary edema, receiving Lasix, continue to monitor Congestive heart failure, acute on chronic left ventricular systolic dysfunction. Last echo was done in April 2022 with ejection fraction 40 to 45% with biatrial enlargement, moderate mitral regurgitation, pulmonary artery pressure 45 to 50 mmHg. Persistent/permanent atrial fibrillation, rate usually controlled Currently tachycardic. History of ablation done in [place] in late 2020, refusing any further ablation. He has been seen and managed by Dr. Bejarano Maintained on Eliquis Nonischemic cardiomyopathy, reporting cardiac catheterization done in [place] around 2019 did not show any obstructive disease. History of methamphetamine abuse. Still using it intermittently, he was found to have methamphetamine in his pocket during this hospitalization EtOH abuse. Hypertension Hyperlipidemia Tobaccoism, educated on smoking cessation History of noncompliance with medication or medical instruction History of elevated liver enzymes. Probably underlying cirrhosis seen on CTA of the abdomen in the past. DEMIAN DUBON MD Oct 10, 2022 10:40
[2022-10-10] MEDS: D5 LR IV SOLUTION 1,000 ML IV SCH ×2 (11:02→20:22)
[2022-10-10 14:47] VITALS: BP 87/59
[2022-10-10] MEDS: dilTIAZem DRIP PRE-MIX 125 ML IV SCH (16:25)
--- NOTE | 2022-10-10 18:28 | Pulmonary Consultation ---
History of Present Illness History of Present Illness Date Seen by Provider: Oct 10, 2022 Time Seen by Provider: 18:27 Date of Admission called for dropping BP 84/52, will give another fluid bolus Bryce Barrett MD Reason for Visit: Acute respiratory failure Allergies and Home Medications Allergies Coded Allergies: hydrocodone (Verified Allergy, Severe, ITCHING, 08/05/22) Penicillins (Verified Allergy, Unknown, 11/09/20) Home Medications Docusate Sodium 100 Mg Capsule, 100 MG PO BID Prescribed by: SILVIA CUELLAR on 08/05/222208 Furosemide 40 Mg Tablet, 40 MG PO DAILY, (Reported) Gabapentin 600 Mg Tablet, 600 MG PO TID, (Reported) Hydroxyzine HCl 50 Mg Tablet, 50 MG PO TID PRN for ANXIETY, (Reported) Metoprolol Succinate 25 Mg Tab.er.24h, 25 MG PO DAILY Prescribed by: JACOBY LINK on 07/06/22899 Mirtazapine 15 Mg Tablet, 7.5 MG PO DAILY, (Reported) TAKES OF A (15MG) TABLET Olanzapine 5 Mg Tablet, 5 MG PO DAILY, (Reported) Oxycodone HCl/Acetaminophen 1 Each Tablet, 1 TAB PO Q4H Prescribed by: SILVIA CUELLAR on 08/05/222208 Oxycodone HCl/Acetaminophen 1 Each Tablet, 1 TAB PO Q6H PRN for PAIN-SEVERE (8- 10) Prescribed by: Ross Arriaza on 08/25/22 1644 Pantoprazole Sodium 40 Mg Tablet.dr, 40 MG PO DAILY Prescribed by: JACOBY LINK on 07/06/22899 Polyethylene Glycol 3350 17 Gram Powd.pack, 17 GM PO DAILY PRN for CONSTIPATION-1ST LINE Prescribed by: JACOBY LINK on 07/06/22899 Rivaroxaban 20 Mg Tablet, 20 MG PO DAILY@1700 Prescribed by: JCAOBY LINK on 07/06/22899 Ropinirole HCl 0.5 Mg Tablet, 0.5 MG PO DAILY, (Reported) Sertraline HCl 50 Mg Tablet, 50 MG PO DAILY, (Reported) Spironolactone 25 Mg Tablet, 25 MG PO DAILY, (Reported) Sulfamethoxazole/Trimethoprim 1 Each Tablet, 1 EACH PO BID Prescribed by: SILVIA CUELLAR on 10/27/22 2209 Sulfamethoxazole/Trimethoprim 1 Each Tablet, 1 EACH PO BID Prescribed by: Ross Arriaza on 08/25/22 1643 Past Medical/Social/Family Hx Patient Social History Marrital Status: single Employed/Student: unemployed Tobacco Use?: Yes Tobacco type used: Cigarettes Smoking Status: Current Everyday Smoker Smokeless Tobacco Frequency: Current Everyday User Use of E-Cig and/or Vaping dev: No E-Cig and/or Vaping Freq: Current Everyday User Substance use?: Yes Substance type: Amphetamines, Methamphetamine, Marijuana Substance frequency: Couple times a week Alcohol Use?: Yes Pt stated abuse/neglect: No Immunizations Up To Date Influenza Vaccine Up-to-Date: No; Not Current First/Initial COVID19 Vaccinat: N/A Second COVID19 Vaccination Ed[place]: N/A Tetanus Booster (TDap): Unknown Hepatitis A: No Hepatitis B: No TB Skin Test: None Current Status Advance Directives: No Communicates: Verbally Primary Language: Gabonese Preferred Spoken Language: Gabonese Sensory deficits: Vision impairment, Hearing impairment, Speech impairment Implanted or Applied Medical D: None Past Medical History AF Meth use Family Medical History Family Hx: SOCIAL HISTORY: -ETOH--REGULAR USE -DRUGS--METHAMPHETAMINES -SMOKES 1 PPD PAST SURGICAL HISTORY: -APPENDECTOMY -HERNIA REPAIR -CARDIOVERSIONS ECHOCARDIOGRAM 11/13/20--EF 30-35%, NO REGIONAL WALL MOTION ABNORMALITIES. EXTREME NON-COMPLIANCE IN ALL ASPECTS OF CARE Review of Systems Constitutional: see HPI EENTM: see HPI Respiratory: see HPI Cardiovascular: see HPI Gastrointestinal: see HPI Genitourinary: see HPI Musculoskeletal: see HPI Skin: see HPI Psychiatric/Neurological: See HPI Sepsis Event Evaluation Height, Weight, BMI Height: '" Weight: lbs. oz. kg; 36.82 BMI Method: Exam Exam Patient acknowledged, consented, and participated in this virtual visit which was conducted using real time audio/video Vital Signs Date Time Temp Pulse Resp B/P (MAP) Pulse Ox O2 Delivery O2 Flow Rate FiO2 10/10/22 18:00 76 13 91/60 (70) 96 Mechanical Ventilator 40.00 10/10/22 17:35 75 91/60 10/10/22 17:35 73 91/60 10/10/22 17:00 79 12 93/55 (68) 96 Mechanical Ventilator 40.00 10/10/22 16:23 78 87/60 10/10/22 16:00 96 Mechanical Ventilator 40 10/10/22 16:00 78 13 87/60 (69) 96 Mechanical Ventilator 40.00 10/10/22 15:58 36.6 10/10/22 15:30 40 10/10/22 15:00 84 14 93/58 (70) 96 Mechanical Ventilator 40.00 10/10/22 14:47 70 15 95 40 10/10/22 14:00 80 14 94/54 (67) 95 Mechanical Ventilator 40.00 10/10/22 13:00 80 14 93/58 (70) 96 Mechanical Ventilator 40.00 10/10/22 12:31 75 10/10/22 12:23 78 95/59 10/10/22 12:00 37.9 10/10/22 12:00 96 Mechanical Ventilator 40 10/10/22 12:00 81 13 95/65 (75) 97 Mechanical Ventilator 40.00 10/10/22 11:30 40 10/10/22 11:00 86 13 99/63 (75) 97 Mechanical Ventilator 40.00 10/10/22 10:09 80 15 97 40 10/10/22 10:00 77 12 95/59 (71) 98 Mechanical Ventilator 40.00 10/10/22 09:47 86 99/63 10/10/22 09:12 77 91/66 10/10/22 09:00 82 9 145/62 (89) 97 Mechanical Ventilator 40.00 10/10/22 08:00 96 Mechanical Ventilator 40 10/10/22 08:00 37.4 10/10/22 08:00 81 14 92/62 (72) 94 Mechanical Ventilator 40.00 10/10/22 07:30 40 10/10/22 07:30 67 91/59 10/10/22 07:00 71 13 92/55 (67) 95 Mechanical Ventilator 40.00 10/10/22 07:00 73 10/10/22 06:51 78 15 98 40 10/10/22 06:00 77 14 97/70 (79) 94 Mechanical Ventilator 40.00 10/10/22 05:47 82 104/73 10/10/22 05:01 74 95/51 10/10/22 05:00 75 14 95/51 (66) 95 Mechanical Ventilator 40.00 10/10/22 04:00 74 14 89/59 (69) 95 Mechanical Ventilator 40.00 10/10/22 03:30 40 10/10/22 03:30 96 Mechanical Ventilator 40 10/10/22 03:30 75 108/65 10/10/22 03:30 37.2 75 17 106/66 (79) 96 Mechanical Ventilator 40.00 10/10/22 02:09 78 18 100 40 10/10/22 02:00 74 14 102/68 (79) 93 Mechanical Ventilator 40.00 10/10/22 01:10 76 105/63 10/10/22 01:00 76 14 105/63 (77) 94 Mechanical Ventilator 40.00 10/10/22 01:00 76 10/10/22 00:55 76 105/63 10/10/22 00:00 73 14 104/68 (80) 95 Mechanical Ventilator 40.00 10/09/22 23:10 95 Mechanical Ventilator 40 10/09/22 23:10 40 10/09/22 23:00 36.8 76 14 107/65 (79) 95 Mechanical Ventilator 40.00 10/09/22 22:00 71 14 109/64 (79) 96 Mechanical Ventilator 40.00 10/09/22 21:50 78 15 98 40 10/09/22 21:46 78 108/78 10/09/22 21:00 80 14 104/72 (83) 95 Mechanical Ventilator 40.00 10/09/22 20:55 70 110/72 10/09/22 20:24 78 108/71 10/09/22 20:24 78 108/71 10/09/22 20:00 78 14 108/71 (83) 95 Mechanical Ventilator 40.00 10/09/22 19:45 40 10/09/22 19:45 95 Mechanical Ventilator 40 10/09/22 19:45 36.6 10/09/22 19:30 71 17 96 40 10/09/22 19:00 37.1 68 14 105/66 (79) 94 Mechanical Ventilator 40.00 10/09/22 19:00 71 I & O 10/10/22 07:00 Intake Total 6080 ml Output Total 1305 ml Balance 4775 ml Height & Weight Height: '" Weight: lbs. oz. kg; 36.82 BMI Method: General Appearance: Anxious, Moderate Distress HEENT: PERRL/EOMI, TMs Normal, Normal ENT Inspection, Pharynx Normal Neck: Full Range of Motion, Normal Inspection, Non Tender, Supple Respiratory: Chest Non Tender, Lungs Clear, Normal Breath Sounds, Rhonci Cardiovascular: No Edema, No JVD, Irregularly Irregular, Tachycardia Capillary Refill: Less Than 3 Seconds Gastrointestinal: normal bowel sounds, other (hypoactive BS) Extremity: Normal Capillary Refill, Normal Inspection, Normal Range of Motion, No Pedal Edema, Other (upper extrem edema but not lower) Neurologic/Psychiatric: Alert, Oriented x3, No Motor/Sensory Deficits; No Normal Mood/Affect; Other (sedated, not pulling on tubes) Skin: Normal Color, Warm/Dry Results Lab Laboratory Tests 10/09/22 04:42 10/10/22 04:20 Assessment/Plan Assessment/Plan give 500 mL of normal saline IV over 30 min Critical Care: Critically Ill Patient Time spent with patient (mins): 19 CHAVA BARRETT MD Oct 10, 2022 18:28
[2022-10-10] MEDS ORDERED: LACTATED RINGERS 500 ML IV ONE (19:00)
[2022-10-10 19:04] VITALS: BP 84/58
[2022-10-10] MEDS ORDERED: LACTATED RINGERS 1,000 ML IV ONE (19:23)
[2022-10-10 21:51] VITALS: BP 83/59
[2022-10-11] VITALS (8 sets, daily range): BP systolic 84–127; BP diastolic 55–91
[2022-10-11] MEDS ORDERED: ALBUMIN 5% IV ONE ×2 (00:30→01:00)
[2022-10-11] MEDS ORDERED: NOREPINEPHRINE 16 MG in NS (IVPB) 234 ML IV SCH (04:15)
[2022-10-11] MEDS ORDERED: NOREPINEPHRINE 8 MG/250 ML 250 ML IV ONE (04:24)
[2022-10-11] MEDS: NOREPINEPHRINE 8 MG/250 ML 250 ML IV SCH ×2 (04:27→16:50)
[2022-10-11] MEDS: PROPOFOL DRIP (ICU) 100 ML IV SCH ×4 (04:32→23:52)
[2022-10-11 04:47] LABS: BASOPHILS # (AUTO) 0.1 10^3/uL (0.0-0.1); BASOPHILS % (AUTO) 0 % (0-10); EOSINOPHILS # (AUTO) 0.1 10^3/uL (0.0-0.3); EOSINOPHILS % (AUTO) 1 % (0-10); HEMATOCRIT 45 % (40-54); HEMOGLOBIN 13.5 g/dL (13.3-17.7); LYMPHOCYTES # (AUTO) 0.8 10^3/uL (1.0-4.0); LYMPHOCYTES % (AUTO) 5 % (12-44); MEAN CORPUSCULAR HEMOGLOBIN 28 pg (25-34); MEAN CORPUSCULAR HGB CONC 30 g/dL (32-36); MEAN CORPUSCULAR VOLUME 93 fL (80-99); MEAN PLATELET VOLUME 11.2 fL (9.0-12.2); MONOCYTES # (AUTO) 1.6 10^3/uL (0.0-1.0); MONOCYTES % (AUTO) 10 % (0-12); NEUTROPHILS # (AUTO) 13.8 10^3/uL (1.8-7.8); NEUTROPHILS % (AUTO) 84 % (42-75); PLATELET COUNT 143 10^3/uL (130-400); WHITE BLOOD COUNT 16.5 10^3/uL (4.3-11.0)
[2022-10-11 05:10] LABS: ALBUMIN 3.5 GM/DL (3.2-4.5); BILIRUBIN,TOTAL 2.1 MG/DL (0.1-1.0); CALCIUM 8.7 MG/DL (8.5-10.1); CREATININE SERUM 1.6 MG/DL (0.60-1.30); MAGNESIUM 1.7 MG/DL (1.6-2.4); PHOSPHORUS 3.5 MG/DL (2.3-4.7); POTASSIUM 4.5 MMOL/L (3.6-5.0); TOTAL PROTEIN 6.5 GM/DL (6.4-8.2)
[2022-10-11] MEDS: D5 LR IV SOLUTION 1,000 ML IV SCH ×2 (06:33→16:50)
[2022-10-11] MEDS: ENOXAPARIN 100 MG/1 ML (LOVENOX) SYR SC SCH ×2 (06:33→16:50)
--- NOTE | 2022-10-11 06:39 | Occ Therapy Progress Note ---
Therapy Progress Note Pt currently intubated. OT to monitor pt's status then will initiate treatment when pt is medically stable and able to actively participate in skilled therapy. DAKOTAH YANG Oct 11, 2022 06:39
[2022-10-11] MEDS: MAGNESIUM 1 GM/100 ML IVPB 100 ML IV SCH (07:06)
[2022-10-11] MEDS: KCL 20 MEQ TAB (K-DUR) PO SCH (07:06)
[2022-10-11] MEDS: POTASSIUM CL 10MEQ/50ML IVPB 50 ML IV SCH (07:06)
[2022-10-11] MEDS: RT-ALBUTEROL SULF 2.5 MG/3 ML PRE-MIX VIAL INH SCH ×5 (07:12→22:15)
--- NOTE | 2022-10-11 07:30 | Physical Therapy Progress Note ---
Therapy Progress Note Patient currently sedated and intubated. PT will monitor patient's status and initiate treatment when patient is able to actively participate with skilled therapy. TAMMY POSADA PT Oct 11, 2022 07:30
[2022-10-11] MEDS: SENNOSIDES 8.6 MG (SENOKOT) TAB PO SCH ×2 (08:15→20:50)
[2022-10-11] MEDS: PANTOPRAZOLE 40 MG (PROTONIX) VIAL IV SCH (08:15)
[2022-10-11] MEDS: DOCUSATE SODIUM 100 MG (COLACE) CAP PO SCH ×2 (08:15→20:50)
--- NOTE | 2022-10-11 09:59 | Progress Note ---
Subjective Subjective/Events-last exam Intubated, sedated. Having low BP overnight/this morning, requiring norepinehprine, so will require central access. Objective Exam Last Set of Vital Signs Vital Signs Date Time Temp Pulse Resp B/P (MAP) Pulse Ox O2 Delivery O2 Flow Rate FiO2 10/11/22 09:45 75 103/73 10/11/22 09:11 36.0 97 40 10/11/22 08:21 Mechanical Ventilator 10/11/22 08:00 14 40.00 Capillary Refill : Less Than 3 Seconds I&O Intake and Output 10/11/22 00:00 Intake Total 4770 ml Output Total 1270 ml Balance 3500 ml Intake Oral 0 ml IV Total 4650 ml Other 120 ml Output Urine Total 470 ml Gastric Drainage Total 800 ml General: Other (intubated, sedated) Lungs: Other (ronchi) Heart: Other (irregularly irregular) Abdomen: Normal Bowel Sounds, Other (mild distension) Extremities: No Edema Results/Procedures Lab Laboratory Tests 10/10/22 10:25: Glucometer 69L 10/10/22 11:15: Glucometer 73 10/10/22 16:59: Triglycerides Level 81 10/10/22 17:53: Glucometer 101 10/10/22 23:41: Glucometer 116H 10/11/22 04:38: White Blood Count 16.5H, Red Blood Count 4.79, Hemoglobin 13.5, Hematocrit 45, Mean Corpuscular Volume 93, Mean Corpuscular Hemoglobin 28, Mean Corpuscular Hemoglobin Concent 30L, Red Cell Distribution Width 19.5H, Platelet Count 143, Mean Platelet Volume 11.2, Immature Granulocyte % (Auto) 1, Neutrophils (%) (Auto) 84H, Lymphocytes (%) (Auto) 5L, Monocytes (%) (Auto) 10, Eosinophils (%) (Auto) 1, Basophils (%) (Auto) 0, Neutrophils # (Auto) 13.8H, Lymphocytes # (Auto) 0.8L, Monocytes # (Auto) 1.6H, Eosinophils # (Auto) 0.1, Basophils # (Auto) 0.1, Immature Granulocyte # (Auto) 0.1, Sodium Level 139, Potassium Level 4.5, Chloride Level 113H, Carbon Dioxide Level 17L, Anion Gap 9, Blood Urea Nitrogen 28H, Creatinine 1.60H, Estimat Glomerular Filtration Rate 54, BUN/Creatinine Ratio 18, Glucose Level 145H, Calcium Level 8.7, Corrected Calcium 9.1, Phosphorus Level 3.5, Magnesium Level 1.7, Total Bilirubin 2.1H, Aspartate Amino Transf (AST/SGOT) 28, Alanine Aminotransferase (ALT/SGPT) 20, Alkaline Phosphatase 101, Total Creatine Kinase 159, Total Protein 6.5, Albumin 3.5 Microbiology 10/08/22 MRSA Screen - Final, Complete MRSA not isolated Assessment/Plan Assessment/Plan (1) Atrial fibrillation with RVR Status: Acute Assessment & Plan: Initially requiring Cardizem drip. Appreciate Cardiology recommendations. (2) Acute on chronic HFrEF (heart failure with reduced ejection fraction) Status: Acute Assessment & Plan: Appreciate Cardiology recommendations. Receiving IV lasix 40 mg daily. (3) Hypotension Status: Acute Assessment & Plan: Worsening overnight, requiring norepinephrine. (4) Respiratory failure Status: Acute Assessment & Plan: Requiring intubation in ER due to agitation and apnea. Appreciate Paula ICU vent management. Qualifiers: Qualified Codes: J96.01 - Acute respiratory failure with hypoxia (5) HFrEF (heart failure with reduced ejection fraction) Status: Chronic Assessment & Plan: Chronic, EF 40% in April 2022 (6) Persistent atrial fibrillation Status: Chronic Assessment & Plan: On enoxaparin treatment dose while NPO (7) NICM (nonischemic cardiomyopathy) Status: Chronic (8) Rhabdomyolysis Status: Resolved Assessment & Plan: CK improved to normal since admission. (9) Methamphetamine abuse Status: Chronic Assessment & Plan: Found to have methamphetamine on person while admitted. 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 (10) Acute kidney injury Status: Acute Assessment & Plan: Worsening renal function as of 10/11/22, suspect due to hypotension. Norepinephrine started, monitor. (11) Cardiomyopathy Status: Chronic Qualifiers: Qualified Codes: I42.9 - Cardiomyopathy, unspecified (12) HTN (hypertension) Status: Chronic Assessment & Plan: Currently hypotensive. (13) HLD (hyperlipidemia) Status: Chronic (14) DVT prophylaxis Status: Acute Assessment & Plan: enoxaparin Clinical Quality Measures AMI/AHF: ASA po Prior to arrival: JB Foreman MD Oct 11, 2022 09:59
[2022-10-11] MEDS: fentaNYL DRIP PRE-MIX 250 ML IV SCH (10:49)
--- NOTE | 2022-10-11 11:26 | Cardiology Progress Note ---
Subjective Date Seen by Provider: Oct 11, 2022 Time Seen by Provider: 11:25 Subjective/Events-last exam Patient was seen at bedside, ventilator dependent. Sedated. Review of Systems General: Other (Unable to provide review of system) Objective-Cardiology Exam Last Set of Vital Signs Vital Signs 10/11/22 10/11/22 10/11/22 09:11 10:39 11:00 Temp 36.0 Pulse 85 Resp 14 B/P (MAP) 93/69 (77) Pulse Ox 93 O2 Delivery Mechanical Ventilator O2 Flow Rate 30.00 FiO2 40 I&O l Intake and Output 10/11/22 00:00 Intake Total 4770 ml Output Total 1270 ml Balance 3500 ml Intake Oral 0 ml IV Total 4650 ml Other 120 ml Output Urine Total 470 ml Gastric Drainage Total 800 ml General: Other (intubated, sedated) HEENT: Atraumatic, PERRLA Neck: Supple Lungs: Other (ronchi) Heart: Other (irregular) Abdomen: Normal Bowel Sounds, Other (mild distension) Extremities: No Edema Skin: No Rashes Neuro: Other (Sedated and intubated) Psych/Mental Status: Other (Sedated and intubated) Results Lab Laboratory Tests 10/11/22 04:38 A/P-Cardiology Admission Diagnosis Acute respiratory failure Congestive heart failure, acute on chronic left ventricular systolic dysfunction, nonischemic cardiomyopathy Chronic permanent atrial fibrillation Methamphetamine use Assessment/Plan Acute respiratory failure, ventilator dependent Pulmonary edema, receiving Lasix, continue to monitor Congestive heart failure, acute on chronic left ventricular systolic dysfunction. Last echo was done in April 2022 with ejection fraction 40 to 45% with biatrial enlargement, moderate mitral regurgitation, pulmonary artery pressure 45 to 50 mmHg. I will repeat 2D echo Persistent/permanent atrial fibrillation, rate usually controlled Heart rate is better controlled at this time. History of ablation done in [place] in late 2020, refusing any further ablation. He has been seen and managed by Dr. Bejarano Maintained on Eliquis Nonischemic cardiomyopathy, reporting cardiac catheterization done in [place] around 2019 did not show any obstructive disease. History of methamphetamine abuse. Still using it intermittently, he was found to have methamphetamine in his pocket during this hospitalization EtOH abuse. Hypertension Hyperlipidemia Tobaccoism, educated on smoking cessation History of noncompliance with medication or medical instruction History of elevated liver enzymes. Probably underlying cirrhosis seen on CTA of the abdomen in the past. DEMIAN DUBON MD Oct 11, 2022 11:26
[2022-10-11] MEDS ORDERED: RT-ALBUTEROL SULF 2.5 MG/3 ML PRE-MIX VIAL INH PRN (12:00)
--- NOTE | 2022-10-11 12:29 | Tele-ICU Progress Note ---
Subjective Date Seen by a Provider: Oct 11, 2022 Time Seen by a Provider: 12:22 Subjective/Events-last exam shows(Tele-ICU Physician , Progress note ) Available chart/ vitals / labs / Images reviewed H&P is from ER notes Patient's information available about PMH, allergy reviewed in EMR. ROS as per chart and RN report Video assessment done using teleICU camera, rest of exam as per RN Discussed with RN. This gentleman with a past medical history of for decreased ejection fraction, atrial fibrillation with rapid ventricular rate, methamphetamine and alcohol abuse presented to the emergency room with a complaint of chest pain and he is found to have a twitchings, picking at skin and rolling around the bed continuously. As he appears to be in a withdrawal state he is intubated and put on mechanical ventilation. He is started on diltiazem drip and admitted to the intensive care unit. Further details not available. 10/09/22. He is agitated on and off requring to increase sedation. urine is some what pinkinsh. 10/11/22 pt remaine on vent. BP is some what low and getting Low dose levophed. Picc line being inserted. CXR shows cardiomegaly and pulmonary congestive changes. Picc line in place Impression 1. Acute hypoxic respiratory failure requiring intubation and mechanical ventilation 2. Chest pain with elevated troponin rule out non-STEMI 3. Atrial fibrillation with rapid ventricular rate. 4. Acute on chronic systolic congestive heart failure 5. Acute and chronic methamphetamine abuse. 6. Rule out sepsis. 7. monitor for hematuria Recommendations 1. Mechanical ventilatory support tidal volume 500, 30% FiO2, 14 rate and PEEP of 5. He is not ready for SBT due to chf 2. Diltiazem drip per cardiology 3. DVT prophylaxis and ulcer prophylaxis 4. Monitor for withdrawal symptoms and sedate accordingly. 5. will continue levophed and give lasix. if necessary will up titrate levophed Plans in coordination with consultants and bedside primary MDs. Reviewed with PURCHASING OFFICER. Sepsis Event Evaluation Height, Weight, BMI Height: '" Weight: lbs. oz. kg; 36.82 BMI Method: Exam Exam Patient acknowledged, consented, and participated in this virtual visit which was conducted using real time audio/video Vital Signs Date Time Temp Pulse Resp B/P (MAP) Pulse Ox O2 Delivery O2 Flow Rate FiO2 10/11/22 11:57 36.3 10/11/22 11:49 94 Mechanical Ventilator 30 10/11/22 11:00 85 14 93/69 (77) 93 Mechanical Ventilator 30.00 10/11/22 10:52 Mechanical Ventilator 30.00 10/11/22 10:49 76 94/71 10/11/22 10:45 30 10/11/22 10:39 75 14 96 40 10/11/22 10:00 78 13 93/70 (78) 97 Mechanical Ventilator 40.00 10/11/22 09:45 75 103/73 10/11/22 09:11 36.0 75 97 40 10/11/22 09:00 78 13 111/79 (90) 98 Mechanical Ventilator 40.00 10/11/22 08:21 97 Mechanical Ventilator 40 10/11/22 08:16 79 101/75 10/11/22 08:00 73 14 105/74 (84) 97 Mechanical Ventilator 40.00 10/11/22 08:00 36.0 10/11/22 07:39 80 10/11/22 07:30 40 10/11/22 07:13 75 14 97 40 10/11/22 07:00 73 13 104/74 (84) 97 Mechanical Ventilator 40.00 10/11/22 06:00 75 14 103/68 (80) 96 Mechanical Ventilator 40.00 10/11/22 05:00 70 15 125/93 (104) 95 Mechanical Ventilator 40.00 10/11/22 04:32 73 84/55 10/11/22 04:27 73 84/55 10/11/22 04:00 72 13 83/54 (64) 96 Mechanical Ventilator 40.00 10/11/22 04:00 96 Mechanical Ventilator 40 10/11/22 03:30 40 10/11/22 03:00 70 14 84/48 (60) 96 Mechanical Ventilator 40.00 10/11/22 02:35 73 14 96 40 10/11/22 02:00 75 14 85/53 (64) 96 Mechanical Ventilator 40.00 10/11/22 01:00 80 10/11/22 01:00 75 14 84/54 (64) 94 Mechanical Ventilator 40.00 10/11/22 00:00 36.0 10/11/22 00:00 73 14 83/51 (62) 95 Mechanical Ventilator 40.00 10/10/22 23:59 96 Mechanical Ventilator 40 1/1/23 23:32 69 84/51 10/10/22 23:32 69 84/51 10/10/22 23:30 40 10/10/22 23:00 69 13 84/51 (62) 96 Mechanical Ventilator 40.00 10/10/22 22:00 71 14 84/52 (63) 96 Mechanical Ventilator 40.00 10/10/22 21:51 75 16 96 40 10/10/22 21:00 77 15 91/52 (65) 95 Mechanical Ventilator 40.00 10/10/22 20:00 96 Mechanical Ventilator 40 10/10/22 20:00 83 14 85/53 (64) 96 Mechanical Ventilator 40.00 10/10/22 19:49 38.0 10/10/22 19:30 40 10/10/22 19:04 73 17 96 40 10/10/22 19:00 80 10/10/22 19:00 75 14 94/56 (69) 98 Mechanical Ventilator 40.00 10/10/22 18:00 76 13 91/60 (70) 96 Mechanical Ventilator 40.00 10/10/22 17:35 75 91/60 10/10/22 17:35 73 91/60 10/10/22 17:00 79 12 93/55 (68) 96 Mechanical Ventilator 40.00 10/10/22 16:23 78 87/60 10/10/22 16:00 96 Mechanical Ventilator 40 10/10/22 16:00 78 13 87/60 (69) 96 Mechanical Ventilator 40.00 10/10/22 15:58 36.6 10/10/22 15:30 40 10/10/22 15:00 84 14 93/58 (70) 96 Mechanical Ventilator 40.00 10/10/22 14:47 70 15 95 40 10/10/22 14:00 80 14 94/54 (67) 95 Mechanical Ventilator 40.00 10/10/22 13:00 80 14 93/58 (70) 96 Mechanical Ventilator 40.00 10/10/22 12:31 75 10/10/22 12:23 78 95/59 I & O 10/11/22 07:00 Intake Total 2260 ml Output Total 560 ml Balance 1700 ml Height & Weight Height: '" Weight: lbs. oz. kg; 36.82 BMI Method: General Appearance: Anxious, Moderate Distress HEENT: PERRL/EOMI, TMs Normal, Normal ENT Inspection, Pharynx Normal Neck: Full Range of Motion, Normal Inspection, Non Tender, Supple Respiratory: Chest Non Tender, Lungs Clear, Normal Breath Sounds, Rhonci Cardiovascular: No Edema, No JVD, Irregularly Irregular, Tachycardia Capillary Refill: Less Than 3 Seconds Gastrointestinal: normal bowel sounds, other (hypoactive BS) Extremity: Normal Capillary Refill, Normal Inspection, Normal Range of Motion, No Pedal Edema, Other (upper extrem edema but not lower) Neurologic/Psychiatric: Alert, Oriented x3, No Motor/Sensory Deficits; No Normal Mood/Affect; Other (sedated, not pulling on tubes) Skin: Normal Color, Warm/Dry Results Lab Laboratory Tests 10/10/22 04:20 10/11/22 04:38 Assessment/Plan Assessment/Plan as above Critical Care: Ventilator Management Time spent with patient (mins): 38 JUS JOSEPH MD Oct 11, 2022 12:29
--- NOTE | 2022-10-11 12:29 | Diagnostic Imaging Report ---
INDICATION: PICC line. COMPARISON: 1 day prior. FINDINGS: The right PICC line projects with its tip at the lower SVC in good position. The ET tube is in the mid thoracic trachea. The OG is beneath the diaphragm. There are progressive bilateral pulmonary opacities, greater right, suggestive of increased edema versus pneumonia. There are at least small pleural effusions bilaterally, not clearly changed. IMPRESSION: The PICC line is in good position. The remaining support apparatus is stable. There has likely been an increased component of edema versus pneumonia with similar bilateral effusions. No pneumothorax. Dictated by: Dictated on workstation # [id number]
[2022-10-11] MEDS ORDERED: FUROSEMIDE 40 MG/4 ML INJ (LASIX) IVP NR (12:30)
[2022-10-11] MEDS: dilTIAZem DRIP PRE-MIX 125 ML IV SCH (15:18)
[2022-10-11] MEDS: DexMEDEtomidine 250 ML DRIP 250 ML IV SCH (17:52)
[2022-10-11] MEDS ORDERED: BUMETANIDE 1 MG/4 ML (BUMEX) VIAL ONE (18:05)
--- NOTE | 2022-10-11 18:13 | Diagnostic Imaging Report ---
INDICATION: Endotracheal tube placement COMPARISON: Imaging from the same date TECHNIQUE: Single radiograph of the chest dated 10/11/2022 at 1743 FINDINGS: Endotracheal tube is present with the distal tip overlying the tracheal air column at the level of the clavicular heads. Enteric catheter is in place extending into the left upper abdomen, though the distal tip is not included within the [id number]. Right-sided PICC line is in place with the distal tip overlying the right atrium. Retraction of 3 cm would be recommended for improved positioning near the cavoatrial junction. No pneumothorax. The cardiac silhouette is enlarged. Central pulmonary vascular congestion is again noted. Bilateral predominantly airspace opacities with associated small bilateral pleural effusions again noted, slightly worsened within the left midlung. No pneumothorax. No acute osseous abnormality. IMPRESSION: Low-lying right-sided PICC line with the distal tip overlying the right atrium. Retraction of approximately 2 to 3 cm would be recommended for optimal positioning. Other lines and tubes appear stable. Constellation of findings likely relates to congestive heart failure with associated interstitial edema and pleural effusions. Superimposed pneumonia not excluded. Findings appear slightly worsened within the left midlung. Dictated by: Dictated on workstation # [id number]
[2022-10-11] MEDS ORDERED: BUMETANIDE 1 MG/4 ML (BUMEX) VIAL IV ONE (18:15)
--- NOTE | 2022-10-11 19:31 | Diagnostic Imaging Report ---
INDICATION: New endotracheal tube COMPARISON: Imaging from the same date. TECHNIQUE: Single radiograph of the chest dated 10/11/2022. FINDINGS: Endotracheal tube is present with the distal tip overlying the tracheal air column, above the level of the jeremias. Right-sided PICC line is again identified. The distal tip appears to extend to overlie the right atrium and retraction of nearly 3 cm is recommended. Enteric catheter is again identified with the distal tip extending into the left upper abdomen. Cardiomegaly and central pulmonary vascular congestion remain. Mixed interstitial and airspace opacities are again noted bilaterally, stable from the prior exam. No pneumothorax. Osseous structures appear stable. IMPRESSION: Endotracheal tube is present, appearing appropriately positioned. Low-lying PICC line is again identified with the distal tip overlying the right atrium. Retraction of approximately 3 cm is recommended. Additional stable findings as above, including cardiomegaly, central pulmonary vascular congestion, and significant bilateral pulmonary opacities, favored to relate to pulmonary edema. Dictated by: Dictated on workstation # [id number]
[2022-10-12 02:31] VITALS: BP 110/84
[2022-10-12] MEDS: RT-ALBUTEROL SULF 2.5 MG/3 ML PRE-MIX VIAL INH SCH ×6 (02:31→21:54)
[2022-10-12 03:20] LABS: BASOPHILS # (AUTO) 0.1 10^3/uL (0.0-0.1); BASOPHILS % (AUTO) 0 % (0-10); EOSINOPHILS # (AUTO) 0.1 10^3/uL (0.0-0.3); EOSINOPHILS % (AUTO) 1 % (0-10); HEMATOCRIT 46 % (40-54); HEMOGLOBIN 14.2 g/dL (13.3-17.7); LYMPHOCYTES # (AUTO) 0.9 10^3/uL (1.0-4.0); LYMPHOCYTES % (AUTO) 6 % (12-44); MEAN CORPUSCULAR HEMOGLOBIN 28 pg (25-34); MEAN CORPUSCULAR HGB CONC 31 g/dL (32-36); MEAN CORPUSCULAR VOLUME 91 fL (80-99); MEAN PLATELET VOLUME 11.3 fL (9.0-12.2); MONOCYTES # (AUTO) 1.9 10^3/uL (0.0-1.0); MONOCYTES % (AUTO) 11 % (0-12); NEUTROPHILS # (AUTO) 13.7 10^3/uL (1.8-7.8); NEUTROPHILS % (AUTO) 82 % (42-75); PLATELET COUNT 196 10^3/uL (130-400); WHITE BLOOD COUNT 16.7 10^3/uL (4.3-11.0)
[2022-10-12 03:32] LABS: ALBUMIN 3.4 GM/DL (3.2-4.5)
[2022-10-12 03:33] LABS: POTASSIUM 4.7 MMOL/L (3.6-5.0)
[2022-10-12 03:35] LABS: TOTAL PROTEIN 6.9 GM/DL (6.4-8.2)
[2022-10-12 03:37] LABS: BILIRUBIN,TOTAL 3.1 MG/DL (0.1-1.0)
[2022-10-12] MEDS: NOREPINEPHRINE 8 MG/250 ML 250 ML IV SCH ×2 (03:37→14:00)
[2022-10-12 03:38] LABS: ABG BASE EXCESS -7.4 MMOL/L (-2.5-2.5); ABG OXYGEN SATURATION 100 % (94-100); ABG PCO2 41 MMHG (35-45); ABG PO2 196 MMHG (79-93); ABG TCO2 19.4 MMOL/L (21.0-31.0)
[2022-10-12 03:38] LABS: PHOSPHORUS 2.8 MG/DL (2.3-4.7)
[2022-10-12 03:39] LABS: CREATININE SERUM 1.87 MG/DL (0.60-1.30)
[2022-10-12 03:41] LABS: MAGNESIUM 1.7 MG/DL (1.6-2.4)
[2022-10-12 04:01] LABS: ABG PH 7.27 (7.37-7.43)
[2022-10-12] MEDS: MAGNESIUM 1 GM/100 ML IVPB 100 ML IV SCH ×2 (04:03→05:21)
[2022-10-12 04:06] LABS: ALLENS TEST YES-POS; INSPIRED O2 30%; PATIENT TEMP 37.1; VENTILATOR NO
[2022-10-12] MEDS: fentaNYL DRIP PRE-MIX 250 ML IV SCH ×2 (04:25→20:03)
[2022-10-12] MEDS: POTASSIUM CL 10MEQ/50ML IVPB 50 ML IV SCH (05:20)
[2022-10-12] MEDS: ENOXAPARIN 100 MG/1 ML (LOVENOX) SYR SC SCH (05:21)
[2022-10-12] MEDS: KCL 20 MEQ TAB (K-DUR) PO SCH (05:21)
[2022-10-12] MEDS: PROPOFOL DRIP (ICU) 100 ML IV SCH ×3 (05:32→20:03)
--- NOTE | 2022-10-12 06:37 | Occ Therapy Progress Note ---
Therapy Progress Note Pt currently intubated. OT to monitor pt's status then will initiate treatment when pt is medically stable and able to actively participate in skilled therapy. DAKOTAH YANG Oct 12, 2022 06:36
[2022-10-12 07:06] VITALS: BP 102/78
[2022-10-12 07:25] LABS: ABG BASE EXCESS -6.7 MMOL/L (-2.5-2.5); ABG OXYGEN SATURATION 88 % (94-100); ABG PCO2 33 MMHG (35-45); ABG PH 7.36 (7.37-7.43); ABG PO2 53 MMHG (79-93); ABG TCO2 18.8 MMOL/L (21.0-31.0)
[2022-10-12 07:26] LABS: ALLENS TEST YES-POS; INSPIRED O2 30%; PATIENT TEMP 37.2; VENTILATOR YES
--- NOTE | 2022-10-12 07:28 | Physical Therapy Progress Note ---
Therapy Progress Note Patient currently sedated and intubated. PT will require new orders and will monitor patient status. PT will initiate treatment when patient is able to actively participate with skilled therapy. TAMMY POSADA PT Oct 12, 2022 07:28
[2022-10-12] MEDS: PANTOPRAZOLE 40 MG (PROTONIX) VIAL IV SCH (07:34)
[2022-10-12] MEDS: SENNOSIDES 8.6 MG (SENOKOT) TAB PO SCH (07:34)
--- NOTE | 2022-10-12 08:00 | Tele-ICU Progress Note ---
Subjective Date Seen by a Provider: Oct 12, 2022 Subjective/Events-last exam Available chart/ vitals / labs / Images reviewed H&P is from ER notes Patient's information available about PMH, allergy reviewed in EMR. ROS as per chart and RN report Video assessment done using teleICU camera, rest of exam as per RN Discussed with RN. This gentleman with a past medical history of for decreased ejection fraction, atrial fibrillation with rapid ventricular rate, methamphetamine and alcohol abuse presented to the emergency room with a complaint of chest pain and he is found to have a twitchings, picking at skin and rolling around the bed continuously. As he appears to be in a withdrawal state he is intubated and put on mechanical ventilation. He is started on diltiazem drip and admitted to the intensive care unit. Further details not available. 10/09/22. He is agitated on and off requring to increase sedation. urine is some what pinkinsh. 10/11/22 pt remaine on vent. BP is some what low and getting Low dose levophed. Picc line being inserted. CXR shows cardiomegaly and pulmonary congestive changes. Picc line in place 10/12/22 PT'S et tube cuff broke yesterday needing to replace ET tube. Now ET in good place. CXR showing [place]. Infiltrates suggestive of pulmonary edema. However pneumonia can not be ruled out. Impression 1. Acute hypoxic respiratory failure requiring intubation and mechanical ventilation 2. Chest pain with elevated troponin rule out non-STEMI 3. Atrial fibrillation with rapid ventricular rate. Now rate controlled. 4. Acute on chronic systolic congestive heart failure 5. Acute and chronic methamphetamine abuse. 6. Rule out sepsis. 7. monitor for hematuria Recommendations 1. Mechanical ventilatory support tidal volume 500, 30% FiO2, 14 rate and PEEP of 5. He is not ready for SBT due to chf 2. Diltiazem drip per cardiology 3. DVT prophylaxis and ulcer prophylaxis 4. Monitor for withdrawal symptoms and sedate accordingly. 5. will continue levophed and give bumex today and see the response.. if necessary will up titrate levophed. 6. Start iv antibiotics. Sputum for Culture. Plans in coordination with consultants and bedside primary MDs. Reviewed with BUN ICER. Sepsis Event Evaluation Height, Weight, BMI Height: '" Weight: lbs. oz. kg; 38.95 BMI Method: Exam Exam Patient acknowledged, consented, and participated in this virtual visit which was conducted using real time audio/video Vital Signs Date Time Temp Pulse Resp B/P (MAP) Pulse Ox O2 Delivery O2 Flow Rate FiO2 10/12/22 07:29 94 Mechanical Ventilator 30 10/12/22 07:27 30 10/12/22 07:21 37.2 10/12/22 07:17 84 10/12/22 06:00 78 22 104/73 (83) 95 Mechanical Ventilator 30.00 10/12/22 05:32 82 115/84 10/12/22 05:00 87 21 102/70 (81) 94 Mechanical Ventilator 30.00 10/12/22 04:25 81 124/91 10/12/22 04:25 81 124/91 10/12/22 04:00 81 17 112/76 (88) 94 Mechanical Ventilator 30.00 10/12/22 03:56 85 114/77 10/12/22 03:55 36.7 Mechanical Ventilator 30.00 10/12/22 03:55 95 Mechanical Ventilator 30 10/12/22 03:30 30 10/12/22 03:00 85 18 109/78 (88) 93 Mechanical Ventilator 30.00 10/12/22 02:31 87 18 95 30 10/12/22 02:00 86 18 113/80 (91) 95 Mechanical Ventilator 30.00 10/12/22 01:00 86 18 106/79 (88) 95 Mechanical Ventilator 30.00 10/12/22 01:00 86 10/12/22 00:00 85 18 111/83 (92) 95 Mechanical Ventilator 30.00 10/11/22 23:52 89 113/82 10/11/22 23:35 96 Mechanical Ventilator 30 10/11/22 23:35 36.9 89 18 114/71 (85) 96 Mechanical Ventilator 30.00 10/11/22 23:30 30 10/11/22 23:28 89 114/71 10/11/22 22:15 84 18 96 30 10/11/22 22:06 88 122/84 10/11/22 22:00 87 18 107/75 (86) 96 Mechanical Ventilator 30.00 10/11/22 21:52 88 122/84 10/11/22 21:00 91 18 123/88 (100) 96 Mechanical Ventilator 30.00 10/11/22 20:46 Mechanical Ventilator 30.00 10/11/22 20:00 80 18 118/90 (99) 96 Mechanical Ventilator 40.00 10/11/22 19:48 38.2 10/11/22 19:30 40 10/11/22 19:30 96 Mechanical Ventilator 40 10/11/22 19:28 95 121/91 10/11/22 19:19 96 18 94 40 10/11/22 19:00 36.6 84 18 124/77 (93) 95 Mechanical Ventilator 40.00 10/11/22 19:00 91 10/11/22 18:00 84 17 128/91 (103) 95 Mechanical Ventilator 30.00 10/11/22 17:44 75 18 95 30 10/11/22 17:00 89 14 94/68 (77) 96 Mechanical Ventilator 30.00 10/11/22 16:05 37.5 10/11/22 16:00 87 13 91/65 (74) 95 Mechanical Ventilator 30.00 10/11/22 16:00 95 Mechanical Ventilator 30 10/11/22 15:30 30 10/11/22 15:00 86 13 94/45 (61) 94 Mechanical Ventilator 30.00 10/11/22 14:24 75 16 95 30 10/11/22 14:00 74 14 85/59 (68) 94 Mechanical Ventilator 30.00 10/11/22 13:15 76 14 86/58 (67) 94 Mechanical Ventilator 30.00 10/11/22 12:30 80 12 102/81 (88) 93 Mechanical Ventilator 30.00 10/11/22 12:18 77 10/11/22 11:57 36.3 10/11/22 11:49 94 Mechanical Ventilator 30 10/11/22 11:00 85 14 93/69 (77) 93 Mechanical Ventilator 30.00 10/11/22 10:52 Mechanical Ventilator 30.00 10/11/22 10:49 76 94/71 10/11/22 10:45 30 10/11/22 10:39 75 14 96 40 10/11/22 10:00 78 13 93/70 (78) 97 Mechanical Ventilator 40.00 10/11/22 09:45 75 103/73 10/11/22 09:11 36.0 75 97 40 10/11/22 09:00 78 13 111/79 (90) 98 Mechanical Ventilator 40.00 10/11/22 08:21 97 Mechanical Ventilator 40 10/11/22 08:16 79 101/75 10/11/22 08:00 73 14 105/74 (84) 97 Mechanical Ventilator 40.00 10/11/22 08:00 36.0 I & O 10/12/22 07:00 Intake Total 2540 ml Output Total 1480 ml Balance 1060 ml Height & Weight Height: '" Weight: lbs. oz. kg; 38.95 BMI Method: General Appearance: Anxious, Moderate Distress HEENT: PERRL/EOMI, TMs Normal, Normal ENT Inspection, Pharynx Normal Neck: Full Range of Motion, Normal Inspection, Non Tender, Supple Respiratory: Chest Non Tender, Lungs Clear, Normal Breath Sounds, Rhonci Cardiovascular: No Edema, No JVD, Irregularly Irregular, Tachycardia Capillary Refill: Less Than 3 Seconds Gastrointestinal: normal bowel sounds, other (hypoactive BS) Extremity: Normal Capillary Refill, Normal Inspection, Normal Range of Motion, No Pedal Edema, Other (upper extrem edema but not lower) Neurologic/Psychiatric: Alert, Oriented x3, No Motor/Sensory Deficits; No Normal Mood/Affect; Other (sedated, not pulling on tubes) Skin: Normal Color, Warm/Dry Results Lab Laboratory Tests 10/11/22 04:38 10/12/22 03:13 Assessment/Plan Assessment/Plan as above Critical Care: Ventilator Management Time spent with patient (mins): 36 JUS JOSEPH MD Oct 12, 2022 08:00
[2022-10-12] MEDS: BUMETANIDE 2.5 MG/10 ML (BUMEX) VIAL ONE ×2 (08:20→08:39)
[2022-10-12] MEDS: DOCUSATE SODIUM 100 MG (COLACE) CAP PO SCH (08:21)
[2022-10-12] MEDS: DOCUSATE SODIUM 10 MG/ML 10 ML UDC (COLACE) PO SCH ×2 (08:21→20:21)
--- NOTE | 2022-10-12 08:39 | Cardiology Progress Note ---
Subjective Date Seen by Provider: Oct 12, 2022 Time Seen by Provider: 08:38 Subjective/Events-last exam Patient is sedated and intubated Review of Systems General: Other (Unable to provide review of system) Objective-Cardiology Exam Last Set of Vital Signs Vital Signs 10/12/22 10/12/22 10/12/22 10/12/22 06:00 07:17 07:21 07:29 Temp 37.2 Pulse 84 Resp 22 B/P (MAP) 104/73 (83) Pulse Ox 94 O2 Delivery Mechanical Ventilator O2 Flow Rate 30.00 FiO2 30 I&O Intake and Output 10/12/22 00:00 Intake Total 1930 ml Output Total 695 ml Balance 1235 ml Intake Oral 0 ml IV Total 1550 ml Tube Feeding 120 ml Other 260 ml Output Urine Total 695 ml General: Other (intubated, sedated) HEENT: Atraumatic, PERRLA Neck: Supple Lungs: Other (ronchi) Heart: Other (irregularly irregular) Abdomen: Normal Bowel Sounds, Other (mild distension) Extremities: No Edema Skin: No Rashes Neuro: Other (Sedated and intubated) Psych/Mental Status: Other (Sedated and intubated) Results Lab Laboratory Tests 10/12/22 03:13 A/P-Cardiology Admission Diagnosis Acute respiratory failure Congestive heart failure, acute on chronic left ventricular systolic dysfunction, nonischemic cardiomyopathy Chronic permanent atrial fibrillation Methamphetamine use Assessment/Plan Acute respiratory failure, ventilator dependent Pulmonary edema, receiving Lasix, continue to monitor Congestive heart failure, acute on chronic left ventricular systolic dysfunction. Last echo was done in April 2022 with ejection fraction 40 to 45% with biatrial enlargement, moderate mitral regurgitation, pulmonary artery pressure 45 to 50 mmHg. I will repeat 2D echo Persistent/permanent atrial fibrillation, rate usually controlled Heart rate is better controlled at this time. History of ablation done in [place] in late 2020, refusing any further ablation. He has been seen and managed by Dr. Bejarano Maintained on Eliquis Nonischemic cardiomyopathy, reporting cardiac catheterization done in [place] around 2019 did not show any obstructive disease. History of methamphetamine abuse. Still using it intermittently, he was found to have methamphetamine in his pocket during this hospitalization EtOH abuse. Acute renal failure, worsening renal function, continue to monitor closely Hyperlipidemia Tobaccoism, educated on smoking cessation History of noncompliance with medication or medical instruction History of elevated liver enzymes. Probably underlying cirrhosis seen on CTA of the abdomen in the past. DEMIAN DUBON MD Oct 12, 2022 08:39
[2022-10-12] MEDS ORDERED: ROCURONIUM 10 MG/ML 5 ML SYRINGE IV ONE (08:58)
[2022-10-12] MEDS ORDERED: BUMETANIDE 1 MG/4 ML (BUMEX) VIAL IV ONE (09:00)
[2022-10-12] MEDS ORDERED: BUMETANIDE 1 MG/4 ML (BUMEX) VIAL IV NR (09:00)
--- NOTE | 2022-10-12 09:02 | Diagnostic Imaging Report ---
INDICATION: Dyspnea Frontal chest obtained at 0533 a.m. and compared with yesterday. ET tube and NG tube and right-sided PICC line are all unchanged. There is no change in central vascular congestion and perihilar and basilar infiltrates bilaterally. There is no pneumothorax or significant sized pleural effusion. IMPRESSION: Unchanged central vascular congestion and perihilar and basilar infiltrates. Stable life support lines. Dictated by: Dictated on workstation # [id number]
--- NOTE | 2022-10-12 09:44 | Progress Note ---
Subjective Subjective/Events-last exam Remains intubated and sedated. Worsening renal function. Had to have ET replaced yesterday. Objective Exam Last Set of Vital Signs Vital Signs Date Time Temp Pulse Resp B/P (MAP) Pulse Ox O2 Delivery O2 Flow Rate FiO2 10/12/22 07:29 94 Mechanical Ventilator 30 10/12/22 07:21 37.2 10/12/22 07:17 84 10/12/22 06:00 22 104/73 (83) 30.00 Capillary Refill : Less Than 3 Seconds I&O Intake and Output 10/12/22 00:00 Intake Total 1930 ml Output Total 695 ml Balance 1235 ml Intake Oral 0 ml IV Total 1550 ml Tube Feeding 120 ml Other 260 ml Output Urine Total 695 ml General: Other (intubated, sedated) Lungs: Other (ronchi) Heart: Other (irregularly irregular) Abdomen: Normal Bowel Sounds, Soft Results/Procedures Lab Laboratory Tests 10/11/22 11:01: Glucometer 161H 10/11/22 17:46: Glucometer 161H 10/11/22 23:50: Glucometer 124H 10/12/22 03:13: White Blood Count 16.7H, Red Blood Count 5.09, Hemoglobin 14.2, Hematocrit 46, Mean Corpuscular Volume 91, Mean Corpuscular Hemoglobin 28, Mean Corpuscular Hemoglobin Concent 31L, Red Cell Distribution Width 20.1H, Platelet Count 196, Mean Platelet Volume 11.3, Immature Granulocyte % (Auto) 1, Neutrophils (%) (Auto) 82H, Lymphocytes (%) (Auto) 6L, Monocytes (%) (Auto) 11, Eosinophils (%) (Auto) 1, Basophils (%) (Auto) 0, Neutrophils # (Auto) 13.7H, Lymphocytes # (Auto) 0.9L, Monocytes # (Auto) 1.9H, Eosinophils # (Auto) 0.1, Basophils # (Auto) 0.1, Immature Granulocyte # (Auto) 0.1, Sodium Level 141, Potassium Level 4.7, Chloride Level 112H, Carbon Dioxide Level 15L, Anion Gap 14, Blood Urea Nitrogen 38H, Creatinine 1.87H, Estimat Glomerular Filtration Rate 45, BUN/Creatinine Ratio 20, Glucose Level 143H, Calcium Level 9.0, Corrected Calcium 9.5, Phosphorus Level 2.8, Magnesium Level 1.7, Total Bilirubin 3.1H, Aspartate Amino Transf (AST/SGOT) 54H, Alanine Aminotransferase (ALT/SGPT) 24, Alkaline Phosphatase 113, Total Creatine Kinase 1676H, Total Protein 6.9, Albumin 3.4 10/12/22 03:21: Blood Gas Puncture Site LEFT RADIAL, Blood Gas Patient Temperature 37.1, Arterial Blood pH 7.27*L, Arterial Blood Partial Pressure CO2 41, Arterial Blood Partial Pressure O2 196H, Arterial Blood HCO3 18L, Arterial Blood Total CO2 19.4L, Arterial Blood Oxygen Saturation 100, Arterial Blood Base Excess -7.4L, Michele Test YES-POS, Blood Gas Ventilator Setting NO, Blood Gas Inspired Oxygen 30% 10/12/22 07:12: Blood Gas Puncture Site R RAD, Blood Gas Patient Temperature 37.2, Arterial Blood pH 7.36L, Arterial Blood Partial Pressure CO2 33L, Arterial Blood Partial Pressure O2 53L, Arterial Blood HCO3 18L, Arterial Blood Total CO2 18.8L, Arterial Blood Oxygen Saturation 88L, Arterial Blood Base Excess -6.7L, Michele Test YES-POS, Blood Gas Ventilator Setting YES, Blood Gas Inspired Oxygen 30% Microbiology 10/08/22 MRSA Screen - Final, Complete MRSA not isolated Assessment/Plan Assessment/Plan (1) Atrial fibrillation with RVR Status: Acute Assessment & Plan: Initially requiring Cardizem drip. Appreciate Cardiology recommendations. (2) Acute on chronic HFrEF (heart failure with reduced ejection fraction) Status: Acute Assessment & Plan: Appreciate Cardiology recommendations. Initiall receiving IV lasix 40 mg daily, stopped and given bumetanide yesterday. (3) Hypotension Status: Acute Assessment & Plan: Worsening overnight 10/10-10/11, required norepinephrine, weaned back off at this time. (4) Respiratory failure Status: Acute Assessment & Plan: Requiring intubation in ER due to agitation and apnea. [facility] ICU vent management. Qualifiers: Qualified Codes: J96.01 - Acute respiratory failure with hypoxia (5) HFrEF (heart failure with reduced ejection fraction) Status: Chronic Assessment & Plan: Chronic, EF 40% in April 2022 (6) Persistent atrial fibrillation Status: Chronic Assessment & Plan: On enoxaparin treatment dose while NPO (7) NICM (nonischemic cardiomyopathy) Status: Chronic (8) Rhabdomyolysis Status: Acute Assessment & Plan: CK improved to normal since admission, but back up today. Difficult to manage given fluid overload suspected related to HF. (9) Methamphetamine abuse Status: Chronic Assessment & Plan: Found to have methamphetamine on person while admitted. senior professional services consultant when alert. (10) Acute kidney injury Status: Acute Assessment & Plan: Worsening renal function as of 10/11/22, suspect due to hypotension. Norepinephrine started for hypotension. 10/12- worsening, difficult management given fluid overload present (11) Cardiomyopathy Status: Chronic Qualifiers: Qualified Codes: I42.9 - Cardiomyopathy, unspecified (12) HTN (hypertension) Status: Chronic Assessment & Plan: Currently hypotensive. (13) HLD (hyperlipidemia) Status: Chronic (14) DVT prophylaxis Status: Acute Assessment & Plan: enoxaparin Clinical Quality Measures AMI/AHF: ASA po Prior to arrival: JB Foreman MD Oct 12, 2022 09:44
[2022-10-12 10:49] VITALS: BP 108/73
[2022-10-12] MEDS: CEFEPIME INJECTION 1,000 MG in NS (IVPB) 50 ML IV SCH ×3 (11:05→21:02)
[2022-10-12 14:39] VITALS: BP 97/66
[2022-10-12] MEDS ORDERED: PANT40TA52 PO (14:45)
[2022-10-12] MEDS ORDERED: DAPA5TAB PO (14:45)
[2022-10-12] MEDS ORDERED: RIVA20TA PO (14:45)
[2022-10-12] MEDS ORDERED: MTP25TSR PO (14:45)
[2022-10-12] MEDS ORDERED: POLY17PO6 PO (14:45)
[2022-10-12] MEDS ORDERED: METF-478 PO (14:45)
[2022-10-12] MEDS: DexMEDEtomidine 250 ML DRIP 250 ML IV SCH (16:04)
[2022-10-12] MEDS: D5 LR IV SOLUTION 1,000 ML IV SCH ×2 (16:05→21:06)
[2022-10-12] MEDS: ENOXAPARIN 120 MG/0.8 ML (LOVENOX) SC SCH (18:06)
[2022-10-12 18:49] VITALS: BP 95/64
[2022-10-12 21:55] VITALS: BP 115/77
[2022-10-13] MEDS: NOREPINEPHRINE 8 MG/250 ML 250 ML IV SCH ×3 (00:06→23:39)
[2022-10-13] MEDS: RT-ALBUTEROL SULF 2.5 MG/3 ML PRE-MIX VIAL INH SCH ×6 (02:43→22:44)
[2022-10-13 02:44] VITALS: BP 119/79
[2022-10-13] MEDS: DexMEDEtomidine 250 ML DRIP 250 ML IV SCH ×3 (03:48→23:38)
[2022-10-13] MEDS: CEFEPIME INJECTION 1,000 MG in NS (IVPB) 50 ML IV SCH ×4 (03:49→22:32)
[2022-10-13 04:40] LABS: ABG BASE EXCESS -4.7 MMOL/L (-2.5-2.5); ABG OXYGEN SATURATION 98 % (94-100); ABG PCO2 31 MMHG (35-45); ABG PO2 86 MMHG (79-93); ABG TCO2 20.2 MMOL/L (21.0-31.0)
[2022-10-13 04:44] LABS: ALLENS TEST YES-POS; INSPIRED O2 N; PATIENT TEMP 36.6; VENTILATOR YES
[2022-10-13 04:44] LABS: BASOPHILS % (AUTO) 0 % (0-10); EOSINOPHILS # (AUTO) 0.2 10^3/uL (0.0-0.3); EOSINOPHILS % (AUTO) 1 % (0-10); HEMATOCRIT 41 % (40-54); HEMOGLOBIN 12.9 g/dL (13.3-17.7); LYMPHOCYTES # (AUTO) 0.7 10^3/uL (1.0-4.0); LYMPHOCYTES % (AUTO) 6 % (12-44); MEAN CORPUSCULAR HEMOGLOBIN 28 pg (25-34); MEAN CORPUSCULAR HGB CONC 31 g/dL (32-36); MEAN CORPUSCULAR VOLUME 89 fL (80-99); MEAN PLATELET VOLUME 12.5 fL (9.0-12.2); MONOCYTES # (AUTO) 1.3 10^3/uL (0.0-1.0); MONOCYTES % (AUTO) 11 % (0-12); NEUTROPHILS % (AUTO) 81 % (42-75); PLATELET COUNT 183 10^3/uL (130-400); WHITE BLOOD COUNT 11.2 10^3/uL (4.3-11.0)
[2022-10-13 04:55] LABS: ALBUMIN 3.1 GM/DL (3.2-4.5)
[2022-10-13 04:56] LABS: CALCIUM 8.9 MG/DL (8.5-10.1)
[2022-10-13 04:58] LABS: TOTAL PROTEIN 6.4 GM/DL (6.4-8.2)
[2022-10-13 04:59] LABS: BILIRUBIN,TOTAL 3.7 MG/DL (0.1-1.0)
[2022-10-13 05:01] LABS: CREATININE SERUM 1.2 MG/DL (0.60-1.30); PHOSPHORUS 2.3 MG/DL (2.3-4.7)
[2022-10-13 05:04] LABS: MAGNESIUM 1.8 MG/DL (1.6-2.4)
[2022-10-13] MEDS: POTASSIUM CL 10MEQ/50ML IVPB 50 ML IV SCH (05:07)
[2022-10-13] MEDS: MAGNESIUM 1 GM/100 ML IVPB 100 ML IV SCH (05:07)
[2022-10-13] MEDS: KCL 20 MEQ TAB (K-DUR) PO SCH (05:07)
[2022-10-13] MEDS: ENOXAPARIN 120 MG/0.8 ML (LOVENOX) SC SCH ×2 (05:08→18:13)
--- NOTE | 2022-10-13 06:39 | Occ Therapy Progress Note ---
Therapy Progress Note Pt currently intubated. OT to monitor pt's status then will initiate treatment when pt is medically stable and able to actively participate in skilled therapy. DAKOTAH YANG Oct 13, 2022 06:39
[2022-10-13 07:15] VITALS: BP 105/76
[2022-10-13] MEDS ORDERED: VANCOMYCIN INJECTION 0.1 MG in NS (IVPB) 250 ML IV SCH (07:45)
[2022-10-13] MEDS: fentaNYL DRIP PRE-MIX 250 ML IV SCH ×2 (07:48→20:17)
--- NOTE | 2022-10-13 07:54 | Physical Therapy Progress Note ---
Therapy Progress Note Patient currently sedated and intubated. PT will require new orders and will monitor patient status. PT will initiate treatment when patient is able to actively participate with skilled therapy. QUIRINO MCLAIN PT Oct 13, 2022 07:54
--- NOTE | 2022-10-13 08:10 | Diagnostic Imaging Report ---
INDICATION: Pneumonia Frontal chest obtained at 0759 a.m. and compared with 10/12/2022. There is cardiomegaly. ET tube tip overlies mid trachea. NG tube tip overlies mid stomach. The right-sided PICC line is unchanged. There is no change in extensive bilateral infiltrates. There is no pneumothorax or pleural fluid. IMPRESSION: Stable life support lines. No change in extensive bilateral infiltrates. No pneumothorax or pleural fluid. Dictated by: Dictated on workstation # [id number]
--- NOTE | 2022-10-13 08:56 | Progress Note - Cardiology ---
Cardiology SOAP Progress Note Subjective: Remains intubated and sedated Objective: I&O/Vital Signs 10/13/22 10/13/22 10/13/22 10/13/22 02:44 03:00 03:30 03:45 Temp 36.5 Pulse 84 84 81 Resp 22 22 B/P (MAP) 118/82 (94) 111/78 (89) Pulse Ox 97 97 97 O2 Delivery Mechanical Ventilator Mechanical Ventilator O2 Flow Rate 30.00 30.00 FiO2 30 30 10/13/22 10/13/22 10/13/22 10/13/22 03:48 03:55 04:00 05:00 Pulse 81 89 91 Resp B/P (MAP) 111/78 111/83 (92) 108/79 (89) Pulse Ox 98 98 98 O2 Delivery Mechanical Ventilator Mechanical Ventilator Mechanical Ventilator O2 Flow Rate 30.00 30.00 FiO2 30 10/13/22 10/13/22 10/13/22 10/13/22 06:00 07:00 07:15 07:22 Pulse 85 79 83 84 Resp 22 B/P (MAP) 101/77 (85) 105/76 (86) Pulse Ox 97 97 97 O2 Delivery Mechanical Ventilator Mechanical Ventilator O2 Flow Rate 30.00 30.00 FiO2 30 10/13/22 10/13/22 10/13/22 10/13/22 07:30 07:44 07:48 08:00 Temp 36.8 Pulse 90 B/P (MAP) 112/75 Pulse Ox 96 O2 Delivery Mechanical Ventilator FiO2 30 30 10/13/22 10/13/22 10/13/22 10/13/22 08:00 09:00 09:41 10:00 Pulse 90 90 95 84 Resp 22 21 21 B/P (MAP) 111/75 (87) 111/74 (86) 113/78 94/65 (75) Pulse Ox 97 98 97 O2 Delivery Mechanical Ventilator Mechanical Ventilator Mechanical Ventilator O2 Flow Rate 30.00 30.00 30.00 10/13/22 10/13/22 10/13/22 10/13/22 10:41 11:00 11:30 12:00 Pulse 82 75 Resp 22 21 B/P (MAP) 110/80 (90) Pulse Ox 99 97 97 O2 Delivery Mechanical Ventilator Mechanical Ventilator O2 Flow Rate 30.00 FiO2 30 30 30 10/13/22 13:20 Pulse 86 10/13/22 00:00 Intake Total 1940 ml Output Total 1715 ml Balance 225 ml Constitutional: other (intubated and sedated) Respiratory: other (diminshed throughout) Cardiovascular: irregularly irregular, S1 and S2 Gastrointestional: audible bowel sounds Genital/Rectal: other (indwelling urinary catheter to DD) Extremities: other (mod bilat LE swelling) Neurologic/Psychiatric: other (sedated) Skin: No rash on exposed areas, No ulcerations on exposed areas Results/Procedures: Labs Laboratory Tests 10/12/22 16:55: Triglycerides Level 815#H 10/12/22 18:35: Glucometer 134H 10/12/22 23:48: Glucometer 133H 10/13/22 03:53: White Blood Count 11.2H, Red Blood Count 4.62, Hemoglobin 12.9L, Hematocrit 41, Mean Corpuscular Volume 89, Mean Corpuscular Hemoglobin 28, Mean Corpuscular Hemoglobin Concent 31L, Red Cell Distribution Width 20.1H, Platelet Count 183, Mean Platelet Volume 12.5H, Immature Granulocyte % (Auto) 1, Neutrophils (%) (Auto) 81H, Lymphocytes (%) (Auto) 6L, Monocytes (%) (Auto) 11, Eosinophils (%) (Auto) 1, Basophils (%) (Auto) 0, Neutrophils # (Auto) 9.0H, Lymphocytes # (Auto) 0.7L, Monocytes # (Auto) 1.3H, Eosinophils # (Auto) 0.2, Basophils # (Auto) 0.0, Immature Granulocyte # (Auto) 0.1, Sodium Level 144, Potassium Level 4.0, Chloride Level 113H, Carbon Dioxide Level 18L, Anion Gap 13, Blood Urea Nitrogen 37H, Creatinine 1.20, Estimat Glomerular Filtration Rate 77, BUN/Creatinine Ratio 31, Glucose Level 132H, Calcium Level 8.9, Corrected Calcium 9.6, Phosphorus Level 2.3, Magnesium Level 1.8, Total Bilirubin 3.7H, Aspartate Amino Transf (AST/SGOT) 44H, Alanine Aminotransferase (ALT/SGPT) 21, Alkaline Phosphatase 101, Total Creatine Kinase 1020H, Total Protein 6.4, Albumin 3.1L 10/13/22 04:35: Blood Gas Puncture Site RIGHT RADIAL, Blood Gas Patient Temperature 36.6, Arterial Blood pH 7.40, Arterial Blood Partial Pressure CO2 31L, Arterial Blood Partial Pressure O2 86, Arterial Blood HCO3 19L, Arterial Blood Total CO2 20.2L, Arterial Blood Oxygen Saturation 98, Arterial Blood Base Excess -4.7L, Michele Test YES-POS, Blood Gas Ventilator Setting YES, Blood Gas Inspired Oxygen N 10/13/22 11:14: Glucometer 136H Microbiology 10/12/22 Gram Stain - Final, Resulted 10/12/22 Sputum Culture - Preliminary, Resulted Staphylococcus aureus Haemophilus influenza Usual upper respiratory travis Procedures NAME: PAL VALERIO [facility] REC#: [id number] PT STATUS: ADM IN : 1980 PHYSICIAN: JUS JOSEPH MD ADMIT DATE: 10/08/22/ICU Signed Date of Exam:10/13/22 CHEST 1 VIEW, AP/PA ONLY INDICATION: Pneumonia Frontal chest obtained at 0759 a.m. and compared with 10/12/2022. There is cardiomegaly. ET tube tip overlies mid trachea. NG tube tip overlies mid stomach. The right-sided PICC line is unchanged. There is no change in extensive bilateral infiltrates. There is no pneumothorax or pleural fluid. IMPRESSION: Stable life support lines. No change in extensive bilateral infiltrates. No pneumothorax or pleural fluid. Dictated by: Dictated on workstation # [id number] Dict: 10/13/22806 Trans: 10/13/22812 GRICELDA [id number] Interpreted by: AXEL ROGER MD Electronically signed by: AXEL ROGER MD 10/13/22812 A/P: Assessment: Acute respiratory failure, ventilator dependent - multi-factorial d/t pneumonia and acute on chronic systolic CHF Acute on chronic systolic congestive heart failure - Echo was done in April 2022 with ejection fraction 40 to 45% with biatrial enlargement, moderate mitral regurgitation, pulmonary artery pressure 45 to 50 mmHg. - Echo of 10-11-[address] Hernandez showed LVEF 35-40%. Mod sized L pleural effusion. Mild MR. Mild to mod TR. Persistent/permanent atrial fibrillation - HR controlled - History of ablation done in [place] in late 2020, previously refusing any further ablation - Had been maintained on Eliquis (unsure of compliance) Nonischemic cardiomyopathy - cardiac catheterization done in [place] around 2019 did not show any obstructive disease. History of methamphetamine abuse. - Still using it intermittently, he was found to have methamphetamine in his pocket during this hospitalization EtOH abuse. Acute renal failure - renal function improved Hyperlipidemia Tobaccoism, educated on smoking cessation History of noncompliance with medication or medical instruction History of elevated liver enzymes. Probably underlying cirrhosis seen on CTA of the abdomen in the past. Plan: Review of chart for this admission has been done Complex management issue d/t issues noted above along with non-compliance, EtOH abuse and continuing meth abuse Continue IV diuretics Currently requiring pressor support Advise adding BB and NOLVIA as BP allows Add Aldactone Add Jardiance when able to take oral medications Monitor lab closely Lovenox for stroke prophylaxis d/t chronic a-fib Clinical Quality Measures AMI/AHF: ASA po Prior to arrival: ANN Correa Oct 13, 2022 08:56
[2022-10-13] MEDS ORDERED: VANCOMYCIN 2000 MG/NS 500 ML IVPB IV ONE ×2 (09:00)
--- NOTE | 2022-10-13 09:03 | Progress Note ---
Subjective Subjective/Events-last exam Afebrile, no acute events. Propofol decreased due to triglycerides and he is moving a little in bed at time of exam. Objective Exam Last Set of Vital Signs Vital Signs Date Time Temp Pulse Resp B/P (MAP) Pulse Ox O2 Delivery O2 Flow Rate FiO2 10/13/22 08:00 90 22 111/75 (87) 97 Mechanical Ventilator 30.00 10/13/22 07:44 36.8 10/13/22 07:15 30 Capillary Refill : Less Than 3 Seconds I&O Intake and Output 10/12/22 23:59 Intake Total 2610 ml Output Total 2925 ml Balance -315 ml Intake Oral 0 ml IV Total 2400 ml Other 210 ml Output Urine Total 2575 ml Gastric Drainage Total 350 ml General: Other (intubated, moving head slightly side to side) Lungs: Other (ronchi) Heart: Other (irregularly irregular) Abdomen: Normal Bowel Sounds Extremities: No Edema Results/Procedures Lab Laboratory Tests 10/12/22 11:16: Glucometer 153H 10/12/22 16:55: Triglycerides Level 815#H 10/12/22 18:35: Glucometer 134H 10/12/22 23:48: Glucometer 133H 10/13/22 03:53: White Blood Count 11.2H, Red Blood Count 4.62, Hemoglobin 12.9L, Hematocrit 41, Mean Corpuscular Volume 89, Mean Corpuscular Hemoglobin 28, Mean Corpuscular Hemoglobin Concent 31L, Red Cell Distribution Width 20.1H, Platelet Count 183, Mean Platelet Volume 12.5H, Immature Granulocyte % (Auto) 1, Neutrophils (%) (Auto) 81H, Lymphocytes (%) (Auto) 6L, Monocytes (%) (Auto) 11, Eosinophils (%) (Auto) 1, Basophils (%) (Auto) 0, Neutrophils # (Auto) 9.0H, Lymphocytes # (Auto) 0.7L, Monocytes # (Auto) 1.3H, Eosinophils # (Auto) 0.2, Basophils # (Auto) 0.0, Immature Granulocyte # (Auto) 0.1, Sodium Level 144, Potassium Level 4.0, Chloride Level 113H, Carbon Dioxide Level 18L, Anion Gap 13, Blood Urea Nitrogen 37H, Creatinine 1.20, Estimat Glomerular Filtration Rate 77, BUN/Creatinine Ratio 31, Glucose Level 132H, Calcium Level 8.9, Corrected Bronson cium 9.6, Phosphorus Level 2.3, Magnesium Level 1.8, Total Bilirubin 3.7H, Aspartate Amino Transf (AST/SGOT) 44H, Alanine Aminotransferase (ALT/SGPT) 21, Alkaline Phosphatase 101, Total Creatine Kinase 1020H, Total Protein 6.4, Albumin 3.1L 10/13/22 04:35: Blood Gas Puncture Site RIGHT RADIAL, Blood Gas Patient Temperature 36.6, Arterial Blood pH 7.40, Arterial Blood Partial Pressure CO2 31L, Arterial Blood Partial Pressure O2 86, Arterial Blood HCO3 19L, Arterial Blood Total CO2 20.2L, Arterial Blood Oxygen Saturation 98, Arterial Blood Base Excess -4.7L, Michele Test YES-POS, Blood Gas Ventilator Setting YES, Blood Gas Inspired Oxygen N Microbiology 10/12/22 Gram Stain - Final, Resulted 10/12/22 Sputum Culture - Preliminary, Resulted Staphylococcus aureus Probable Haemophilus Assessment/Plan Assessment/Plan (1) Atrial fibrillation with RVR Status: Acute Assessment & Plan: Initially requiring Cardizem drip. Appreciate Cardiology recommendations. (2) Acute on chronic HFrEF (heart failure with reduced ejection fraction) Status: Acute Assessment & Plan: 10/12 Appreciate Cardiology recommendations. Initially receiving IV lasix 40 mg daily, stopped and given bumetanide yesterday. (3) Hypotension Status: Acute Assessment & Plan: Worsening overnight 10/10-10/11, required norepinephrine, weaned back off at this time. (4) Respiratory failure Status: Acute Assessment & Plan: Requiring intubation in ER due to agitation and apnea. Appreciate Paula ICU vent management. Qualifiers: Qualified Codes: J96.01 - Acute respiratory failure with hypoxia (5) HFrEF (heart failure with reduced ejection fraction) Status: Chronic Assessment & Plan: Chronic, EF 40% in April 2022 (6) Persistent atrial fibrillation Status: Chronic Assessment & Plan: On enoxaparin treatment dose while NPO (7) NICM (nonischemic cardiomyopathy) Status: Chronic (8) Rhabdomyolysis Status: Acute Assessment & Plan: CK improved to normal since admission, but back up today. Difficult to manage given fluid overload suspected related to HF. 10/13 trended down (9) Methamphetamine abuse Status: Chronic Assessment & Plan: Found to have methamphetamine on person while admitted. surgical services asst when alert. (10) Acute kidney injury Status: Acute Assessment & Plan: Worsening renal function as of 10/11/22, suspect due to hypotension. Norepinephrine started for hypotension. 10/12- worsening, difficult management given fluid overload present 10/13- improved today, good urine output (11) Cardiomyopathy Status: Chronic Qualifiers: Qualified Codes: I42.9 - Cardiomyopathy, unspecified (12) HTN (hypertension) Status: Chronic Assessment & Plan: Currently hypotensive. (13) HLD (hyperlipidemia) Status: Chronic (14) DVT prophylaxis Status: Acute Assessment & Plan: enoxaparin Clinical Quality Measures AMI/AHF: ASA po Prior to arrival: JB Foreman MD Oct 13, 2022 09:03
[2022-10-13] MEDS: DOCUSATE SODIUM 10 MG/ML 10 ML UDC (COLACE) PO SCH ×2 (09:08→20:16)
[2022-10-13] MEDS: PANTOPRAZOLE 40 MG (PROTONIX) VIAL IV SCH (09:08)
--- NOTE | 2022-10-13 09:21 | Progress Note - Cardiology ---
Cardiology SOAP Progress Note Subjective: Intubated On mech vent Unresponsive Objective: I&O/Vital Signs 10/12/22 10/12/22 10/12/22 10/12/22 21:55 22:00 23:00 23:25 Pulse 81 80 89 Resp 22 22 B/P (MAP) 114/76 (89) 111/79 (90) Pulse Ox 96 96 96 O2 Delivery Mechanical Ventilator Mechanical Ventilator O2 Flow Rate 30.00 30.00 FiO2 30 30 10/12/22 10/12/22 10/12/22 10/12/22 23:25 23:30 23:50 23:51 Temp 36.4 Pulse 89 89 B/P (MAP) 111/79 111/79 Pulse Ox 95 O2 Delivery Mechanical Ventilator FiO2 30 10/13/22 10/13/22 10/13/22 10/13/22 00:00 01:00 01:00 02:00 Pulse 91 80 80 86 Resp B/P (MAP) 109/82 (91) 107/74 (85) 107/77 (87) Pulse Ox 96 96 97 O2 Delivery Mechanical Ventilator Mechanical Ventilator Mechanical Ventilator O2 Flow Rate 30.00 30.00 30.00 10/13/22 10/13/22 10/13/22 10/13/22 02:44 03:00 03:30 03:45 Temp 36.5 Pulse 84 84 81 Resp B/P (MAP) 118/82 (94) 111/78 (89) Pulse Ox 97 97 97 O2 Delivery Mechanical Ventilator Mechanical Ventilator O2 Flow Rate 30.00 30.00 FiO2 30 30 10/13/22 10/13/22 10/13/22 10/13/22 03:48 03:55 04:00 05:00 Pulse 81 89 91 Resp B/P (MAP) 111/78 111/83 (92) 108/79 (89) Pulse Ox 98 98 98 O2 Delivery Mechanical Ventilator Mechanical Ventilator Mechanical Ventilator O2 Flow Rate 30.00 30.00 FiO2 30 10/13/22 10/13/22 10/13/22 10/13/22 06:00 07:00 07:15 07:22 Pulse 85 79 83 84 Resp B/P (MAP) 101/77 (85) 105/76 (86) Pulse Ox 97 97 97 O2 Delivery Mechanical Ventilator Mechanical Ventilator O2 Flow Rate 30.00 30.00 FiO2 30 10/13/22 10/13/22 10/13/22 07:44 07:48 08:00 Temp 36.8 Pulse 90 90 Resp 22 B/P (MAP) 112/75 111/75 (87) Pulse Ox 97 O2 Delivery Mechanical Ventilator O2 Flow Rate 30.00 10/13/22 00:00 Intake Total 1940 ml Output Total 1715 ml Balance 225 ml Constitutional: other (intubated and sedated) Respiratory: other (diminshed throughout) Cardiovascular: irregularly irregular, S1 and S2 Gastrointestional: audible bowel sounds Genital/Rectal: other (indwelling urinary catheter to DD) Extremities: other (mod bilat LE swelling) Neurologic/Psychiatric: other (sedated) Skin: No rash on exposed areas, No ulcerations on exposed areas Results/Procedures: Labs Laboratory Tests 10/12/22 11:16: Glucometer 153H 10/12/22 16:55: Triglycerides Level 815#H 10/12/22 18:35: Glucometer 134H 10/12/22 23:48: Glucometer 133H 10/13/22 03:53: White Blood Count 11.2H, Red Blood Count 4.62, Hemoglobin 12.9L, Hematocrit 41, Mean Corpuscular Volume 89, Mean Corpuscular Hemoglobin 28, Mean Corpuscular Hemoglobin Concent 31L, Red Cell Distribution Width 20.1H, Platelet Count 183, Mean Platelet Volume 12.5H, Immature Granulocyte % (Auto) 1, Neutrophils (%) (Auto) 81H, Lymphocytes (%) (Auto) 6L, Monocytes (%) (Auto) 11, Eosinophils (%) (Auto) 1, Basophils (%) (Auto) 0, Neutrophils # (Auto) 9.0H, Lymphocytes # (Auto) 0.7L, Monocytes # (Auto) 1.3H, Eosinophils # (Auto) 0.2, Basophils # (Auto) 0.0, Immature Granulocyte # (Auto) 0.1, Sodium Level 144, Potassium Level 4.0, Chloride Level 113H, Carbon Dioxide Level 18L, Anion Gap 13, Blood Urea Nitrogen 37H, Creatinine 1.20, Estimat Glomerular Filtration Rate 77, BUN/Crea tinine Ratio 31, Glucose Level 132H, Calcium Level 8.9, Corrected Calcium 9.6, Phosphorus Level 2.3, Magnesium Level 1.8, Total Bilirubin 3.7H, Aspartate Amino Transf (AST/SGOT) 44H, Alanine Aminotransferase (ALT/SGPT) 21, Alkaline Phosp hatase 101, Total Creatine Kinase 1020H, Total Protein 6.4, Albumin 3.1L 10/13/22 04:35: Blood Gas Puncture Site RIGHT RADIAL, Blood Gas Patient Temperature 36.6, Arterial Blood pH 7.40, Arterial Blood Partial Pressure CO2 31L, Arterial Blood Partial Pressure O2 86, Arterial Blood HCO3 19L, Arterial Blood Total CO2 20.2L, Arterial Blood Oxygen Saturation 98, Arterial Blood Base Excess -4.7L, Michele Test YES-POS, Blood Gas Ventilator Setting YES, Blood Gas Inspired Oxygen N Microbiology 10/12/22 Gram Stain - Final, Resulted 10/12/22 Sputum Culture - Preliminary, Resulted Staphylococcus aureus Probable Haemophilus Laboratory Tests 10/12/22 03:13 10/13/22 03:53 A/P: Assessment: Acute respiratory failure, ventilator dependent - multi-factorial d/t pneumonia and acute on chronic systolic CHF Acute on chronic systolic congestive heart failure - Echo was done in April 2022 with ejection fraction 40 to 45% with biatrial enlargement, moderate mitral regurgitation, pulmonary artery pressure 45 to 50 mmHg. - Echo of 10-11-[address] Hernandez showed LVEF 35-40%. Mod sized L pleural effusion. Mild MR. Mild to mod TR. Persistent/permanent atrial fibrillation - HR controlled - History of ablation done in [place] in late 2020, previously refusing any further ablation - Had been maintained on Eliquis (unsure of compliance) Nonischemic cardiomyopathy - cardiac catheterization done in [place] around 2019 did not show any obstructive disease. History of methamphetamine abuse. - Still using it intermittently, he was found to have methamphetamine in his pocket during this hospitalization EtOH abuse. Acute renal failure - renal function improved Hyperlipidemia Tobaccoism, educated on smoking cessation History of noncompliance with medication or medical instruction History of elevated liver enzymes. Probably underlying cirrhosis seen on CTA of the abdomen in the past. Plan: I examined him and reviewed his records Complex management issue d/t issues noted above along with non-compliance, EtOH abuse and continuing meth abuse Continue IV diuretics Currently requiring pressor support Advise adding BB and NOLVIA as BP allows Add Aldactone Add Jardiance when able to take oral medications Monitor lab closely Lovenox for stroke prophylaxis d/t chronic a-fib Clinical Quality Measures AMI/AHF: ASA po Prior to arrival: SAVI Cheng MD [facility] Oct 13, 2022 09:21
[2022-10-13] MEDS: PROPOFOL DRIP (ICU) 100 ML IV SCH ×2 (09:41→17:58)
[2022-10-13] MEDS: ENALAPRILAT 2.5 MG/2 ML (VASOTEC) VIAL IV SCH ×2 (09:52→20:16)
[2022-10-13] MEDS: SPIRONOLACTONE 25 MG (ALDACTONE) TAB NG SCH (09:52)
[2022-10-13] MEDS ORDERED: BUMETANIDE 1 MG/4 ML (BUMEX) VIAL IV NR (10:00)
[2022-10-13 10:41] VITALS: BP 101/61
--- NOTE | 2022-10-13 12:13 | Tele-ICU Progress Note ---
Subjective Date Seen by a Provider: Oct 13, 2022 Time Seen by a Provider: 12:08 Subjective/Events-last exam Available chart/ vitals / labs / Images reviewed H&P is from ER notes Patient's information available about PMH, allergy reviewed in EMR. ROS as per chart and RN report Video assessment done using teleICU camera, rest of exam as per RN Discussed with RN. This gentleman with a past medical history of for decreased ejection fraction, atrial fibrillation with rapid ventricular rate, methamphetamine and alcohol abuse presented to the emergency room with a complaint of chest pain and he is found to have a twitchings, picking at skin and rolling around the bed continuously. As he appears to be in a withdrawal state he is intubated and put on mechanical ventilation. He is started on diltiazem drip and admitted to the intensive care unit. Further details not available. 10/09/22. He is agitated on and off requring to increase sedation. urine is some what pinkinsh. 10/11/22 pt remaine on vent. BP is some what low and getting Low dose levophed. Picc line being inserted. CXR shows cardiomegaly and pulmonary congestive changes. Picc line in place 10/12/22 PT'S et tube cuff broke yesterday needing to replace ET tube. Now ET in good place. CXR showing phoenix. Infiltrates suggestive of pulmonary edema. However pneumonia can not be ruled out. 10/13/22 pt remained on vent and sedated. he responded well to bumex and he will receive again. sputum gre staph aureus and probable hemophilus . started on va ncomycin and cefepime. Impression 1. Acute hypoxic respiratory failure requiring intubation and mechanical ventilation 2. Chest pain with elevated troponin rule out non-STEMI 3. Atrial fibrillation with rapid ventricular rate. Now rate controlled. 4. Acute on chronic systolic congestive heart failure 5. Acute and chronic methamphetamine abuse. 6. gram positive and gram negative pneumonia 7. monitor for hematuria Recommendations 1. Mechanical ventilatory support tidal volume 500, 30% FiO2, 14 rate and PEEP of 5. He is not ready for SBT due to chf 2. Diltiazem drip per cardiology 3. DVT prophylaxis and ulcer prophylaxis 4. Monitor for withdrawal symptoms and sedate accordingly. 5. will continue levophed and give bumex iv daily and see the response.. if necessary will up titrate levophed. 6. Start iv vancomycin and continue cefepime. Plans in coordination with consultants and bedside primary MDs. Reviewed with HARDWARE INSTALLATION COORDINATOR. Sepsis Event Evaluation Height, Weight, BMI Height: '" Weight: lbs. oz. kg; 38.05 BMI Method: Exam Exam Patient acknowledged, consented, and participated in this virtual visit which was conducted using real time audio/video Vital Signs Date Time Temp Pulse Resp B/P (MAP) Pulse Ox O2 Delivery O2 Flow Rate FiO2 10/13/22 11:00 75 21 110/80 (90) 97 Mechanical Ventilator 30.00 10/13/22 10:41 82 22 99 30 10/13/22 10:00 84 21 94/65 (75) 97 Mechanical Ventilator 30.00 10/13/22 09:41 95 113/78 10/13/22 09:00 90 21 111/74 (86) 98 Mechanical Ventilator 30.00 10/13/22 08:00 90 22 111/75 (87) 97 Mechanical Ventilator 30.00 10/13/22 08:00 96 Mechanical Ventilator 30 10/13/22 07:48 90 112/75 10/13/22 07:44 36.8 10/13/22 07:30 30 10/13/22 07:22 84 10/13/22 07:15 83 22 97 30 10/13/22 07:00 79 21 105/76 (86) 97 Mechanical Ventilator 30.00 10/13/22 06:00 85 22 101/77 (85) 97 Mechanical Ventilator 30.00 10/13/22 05:00 91 22 108/79 (89) 98 Mechanical Ventilator 30.00 10/13/22 04:00 89 22 111/83 (92) 98 Mechanical Ventilator 30.00 10/13/22 03:55 98 Mechanical Ventilator 30 10/13/22 03:48 81 111/78 10/13/22 03:45 36.5 81 22 111/78 (89) 97 Mechanical Ventilator 30.00 10/13/22 03:30 30 10/13/22 03:00 84 22 118/82 (94) 97 Mechanical Ventilator 30.00 10/13/22 02:44 84 22 97 30 10/13/22 02:00 86 22 107/77 (87) 97 Mechanical Ventilator 30.00 10/13/22 01:00 80 22 107/74 (85) 96 Mechanical Ventilator 30.00 10/13/22 01:00 80 10/13/22 00:00 91 22 109/82 (91) 96 Mechanical Ventilator 30.00 10/12/22 23:51 89 111/79 10/12/22 23:50 89 111/79 10/12/22 23:30 95 Mechanical Ventilator 30 10/12/22 23:25 36.4 10/12/22 23:25 30 10/12/22 23:00 89 22 111/79 (90) 96 Mechanical Ventilator 30.00 10/12/22 22:00 80 22 114/76 (89) 96 Mechanical Ventilator 30.00 10/12/22 21:55 81 22 96 30 10/12/22 21:00 85 22 97/65 (76) 96 Mechanical Ventilator 30.00 10/12/22 20:09 87 92/62 10/12/22 20:03 87 92/62 10/12/22 20:03 87 92/62 10/12/22 20:00 96 Mechanical Ventilator 30 10/12/22 20:00 89 22 92/62 (72) 95 Mechanical Ventilator 30.00 10/12/22 19:30 30 10/12/22 19:10 36.7 10/12/22 19:00 97 10/12/22 19:00 Mechanical Ventilator 30.00 10/12/22 19:00 81 22 98/63 (75) 94 Mechanical Ventilator 30.00 10/12/22 18:49 87 22 94 30 10/12/22 18:00 79 92/59 (70) 92 Mechanical Ventilator 30.00 10/12/22 17:00 93 22 106/68 (81) 95 Mechanical Ventilator 30.00 10/12/22 16:11 93 Mechanical Ventilator 30 10/12/22 16:04 89 98/61 10/12/22 16:00 94 21 98/61 (73) 94 Mechanical Ventilator 30.00 10/12/22 16:00 30 10/12/22 15:43 37.0 10/12/22 15:00 82 21 96/61 (73) 94 Mechanical Ventilator 30.00 10/12/22 14:39 89 22 94 30 10/12/22 14:21 104 10/12/22 14:00 87 23 107/71 (83) 94 Mechanical Ventilator 30.00 10/12/22 13:00 92 22 100/62 (75) 95 Mechanical Ventilator 30.00 10/12/22 12:56 93 99/68 10/12/22 12:43 90 10/12/22 12:25 94 Mechanical Ventilator 30 I & O 10/13/22 07:00 Intake Total 2360 ml Output Total 2540 ml Balance -180 ml Height & Weight Height: '" Weight: lbs. oz. kg; 38.05 BMI Method: General Appearance: Anxious, Moderate Distress HEENT: PERRL/EOMI, TMs Normal, Normal ENT Inspection, Pharynx Normal Neck: Full Range of Motion, Normal Inspection, Non Tender, Supple Respiratory: Chest Non Tender, Lungs Clear, Normal Breath Sounds, Rhonci Cardiovascular: No Edema, No JVD, Irregularly Irregular, Tachycardia Capillary Refill: Less Than 3 Seconds Gastrointestinal: normal bowel sounds, other (hypoactive BS) Extremity: Normal Capillary Refill, Normal Inspection, Normal Range of Motion, No Pedal Edema, Other (upper extrem edema but not lower) Neurologic/Psychiatric: Alert, Oriented x3, No Motor/Sensory Deficits; No Normal Mood/Affect; Other (sedated, not pulling on tubes) Skin: Normal Color, Warm/Dry Other comments PE PER RN Results Lab Laboratory Tests 10/12/22 03:13 10/13/22 03:53 Assessment/Plan Assessment/Plan as above Critical Care: Ventilator Management Time spent with patient (mins): 36 JUS JOSEPH MD Oct 13, 2022 12:13
[2022-10-13] MEDS: meTOprolol 5 MG/5 ML (LOPRESSOR) VIAL IV SCH ×3 (12:50→23:39)
[2022-10-13 15:00] VITALS: BP 121/94
[2022-10-13 18:35] VITALS: BP 114/81
[2022-10-13] MEDS: VANCOMYCIN 1,750 MG/NS 500 ML IVPB IV SCH ×2 (20:16)
[2022-10-13 22:44] VITALS: BP_DIAS 79
[2022-10-14 02:21] VITALS: BP 130/90
[2022-10-14] MEDS: RT-ALBUTEROL SULF 2.5 MG/3 ML PRE-MIX VIAL INH SCH ×6 (02:21→22:23)
[2022-10-14] MEDS: CEFEPIME INJECTION 1,000 MG in NS (IVPB) 50 ML IV SCH ×2 (03:33→09:52)
[2022-10-14] MEDS: PROPOFOL DRIP (ICU) 100 ML IV SCH ×4 (03:34→22:02)
[2022-10-14 04:12] LABS: BASOPHILS % (AUTO) 0 % (0-10); EOSINOPHILS # (AUTO) 0.3 10^3/uL (0.0-0.3); EOSINOPHILS % (AUTO) 2 % (0-10); HEMATOCRIT 42 % (40-54); HEMOGLOBIN 13.2 g/dL (13.3-17.7); LYMPHOCYTES # (AUTO) 0.9 10^3/uL (1.0-4.0); LYMPHOCYTES % (AUTO) 7 % (12-44); MEAN CORPUSCULAR HEMOGLOBIN 28 pg (25-34); MEAN CORPUSCULAR HGB CONC 32 g/dL (32-36); MEAN CORPUSCULAR VOLUME 89 fL (80-99); MEAN PLATELET VOLUME 11.7 fL (9.0-12.2); MONOCYTES # (AUTO) 1.2 10^3/uL (0.0-1.0); MONOCYTES % (AUTO) 10 % (0-12); NEUTROPHILS % (AUTO) 80 % (42-75); PLATELET COUNT 190 10^3/uL (130-400); WHITE BLOOD COUNT 12.5 10^3/uL (4.3-11.0)
[2022-10-14 04:13] LABS: ABG BASE EXCESS -3.1 MMOL/L (-2.5-2.5); ABG OXYGEN SATURATION 98 % (94-100); ABG PCO2 33 MMHG (35-45); ABG PH 7.41 (7.37-7.43); ABG PO2 82 MMHG (79-93); ABG TCO2 21.8 MMOL/L (21.0-31.0)
[2022-10-14 04:15] LABS: ALLENS TEST YES-POS; INSPIRED O2 30%; PATIENT TEMP 36.6; VENTILATOR YES
[2022-10-14 05:00] LABS: ALBUMIN 3.1 GM/DL (3.2-4.5); CALCIUM 8.9 MG/DL (8.5-10.1); CREATININE SERUM 0.85 MG/DL (0.60-1.30); MAGNESIUM 1.7 MG/DL (1.6-2.4); PHOSPHORUS 2.1 MG/DL (2.3-4.7); POTASSIUM 3.5 MMOL/L (3.6-5.0); TOTAL PROTEIN 6.5 GM/DL (6.4-8.2)
[2022-10-14] MEDS: ENOXAPARIN 120 MG/0.8 ML (LOVENOX) SC SCH ×2 (05:07→17:20)
[2022-10-14] MEDS: meTOprolol 5 MG/5 ML (LOPRESSOR) VIAL IV SCH ×4 (05:07→23:45)
[2022-10-14] MEDS: POTASSIUM CL 10MEQ/50ML IVPB 50 ML IV SCH ×3 (06:28→08:56)
[2022-10-14] MEDS: KCL 20 MEQ TAB (K-DUR) PO SCH (06:29)
[2022-10-14] MEDS: MAGNESIUM 1 GM/100 ML IVPB 100 ML IV SCH ×3 (06:29→08:53)
[2022-10-14 06:31] VITALS: BP 120/88
--- NOTE | 2022-10-14 06:44 | Occ Therapy Progress Note ---
Therapy Progress Note Pt currently intubated. OT to monitor pt's status then will initiate treatment when pt is medically stable and able to actively participate in skilled therapy. DAKOTAH YANG Oct 14, 2022 06:44
[2022-10-14] MEDS: fentaNYL DRIP PRE-MIX 250 ML IV SCH ×3 (07:03→22:02)
[2022-10-14] MEDS: D5 LR IV SOLUTION 1,000 ML IV SCH (07:03)
--- NOTE | 2022-10-14 07:28 | Tele-ICU Progress Note ---
Subjective Date Seen by a Provider: Oct 14, 2022 Time Seen by a Provider: 11:58 Subjective/Events-last exam vailable chart/ vitals / labs / Images reviewed H&P is from ER notes Patient's information available about PMH, allergy reviewed in EMR. ROS as per chart and RN report Video assessment done using teleICU camera, rest of exam as per RN Discussed with RN. This gentleman with a past medical history of for decreased ejection fraction, atrial fibrillation with rapid ventricular rate, methamphetamine and alcohol abuse presented to the emergency room with a complaint of chest pain and he is found to have a twitchings, picking at skin and rolling around the bed continuously. As he appears to be in a withdrawal state he is intubated and put on mechanical ventilation. He is started on diltiazem drip and admitted to the intensive care unit. Further details not available. 10/09/22. He is agitated on and off requring to increase sedation. urine is some what pinkinsh. 10/11/22 pt remaine on vent. BP is some what low and getting Low dose levophed. Picc line being inserted. CXR shows cardiomegaly and pulmonary congestive changes. Picc line in place 10/12/22 PT'S et tube cuff broke yesterday needing to replace ET tube. Now ET in good place. CXR showing phoenix. Infiltrates suggestive of pulmonary edema. However pneumonia can not be ruled out. 10/13/22 pt remained on vent and sedated. he responded well to bumex and he will receive again. sputum gre staph aureus and probable hemophilus . started on van comycin and cefepime. 10/14/22 HE IS ON THE VENT ,SEDATED. CXR SHOWING CONTINUED PULMONARY CONGESTIVE CHANGES. INCRESED BUMEX 2 MG IV Q 12HRS. Impression 1. Acute hypoxic respiratory failure requiring intubation and mechanical ventilation, not ready for weaning yet. 2. Chest pain with elevated troponin rule out non-STEMI 3. Atrial fibrillation with rapid ventricular rate. Now rate controlled. 4. Acute on chronic systolic congestive heart failure 5. Acute and chronic methamphetamine abuse. 6. gram positive and gram negative pneumonia 7. monitor for hematuria Recommendations 1. Mechanical ventilatory support tidal volume 500, 30% FiO2, 14 rate and PEEP of 5. He is not ready for SBT due to chf 2. Diltiazem drip per cardiology 3. DVT prophylaxis and ulcer prophylaxis 4. Monitor for withdrawal symptoms and sedate accordingly. 5. will continue levophed and give bumex 2 mg iv 12 hrs and see the response.. if necessary will up titrate levophed. 6. continue iv vancomycin and cefepime. Plans in coordination with consultants and bedside primary MDs. Reviewed with ANGLESMITH HELPER. Sepsis Event Evaluation Height, Weight, BMI Height: '" Weight: lbs. oz. kg; 37.65 BMI Method: Exam Exam Patient acknowledged, consented, and participated in this virtual visit which was conducted using real time audio/video Vital Signs Date Time Temp Pulse Resp B/P (MAP) Pulse Ox O2 Delivery O2 Flow Rate FiO2 10/14/22 07:03 88 120/88 10/14/22 06:31 88 22 98 30 10/14/22 06:00 92 22 126/88 (101) 97 Mechanical Ventilator 30.00 10/14/22 05:00 96 22 125/90 (102) 97 Mechanical Ventilator 30.00 10/14/22 04:00 97 Mechanical Ventilator 30 10/14/22 04:00 91 22 117/76 (90) 98 Mechanical Ventilator 30.00 10/14/22 04:00 36.9 10/14/22 03:38 91 130/90 10/14/22 03:34 91 130/90 10/14/22 03:30 30 10/14/22 03:00 85 22 119/85 (96) 98 Mechanical Ventilator 30.00 10/14/22 02:21 91 22 98 30 10/14/22 02:00 91 22 128/95 (106) 98 Mechanical Ventilator 30.00 10/14/22 01:00 97 22 126/86 (99) 98 Mechanical Ventilator 30.00 10/14/22 01:00 88 10/14/22 00:17 87 111/79 10/14/22 00:00 89 22 112/83 (93) 97 Mechanical Ventilator 30.00 10/14/22 00:00 36.7 10/13/22 23:59 96 Mechanical Ventilator 30 10/13/22 23:38 87 111/79 10/13/22 23:30 30 10/13/22 23:00 85 22 126/79 (95) 97 Mechanical Ventilator 30.00 10/13/22 22:44 87 22 97 30 10/13/22 22:00 87 22 125/89 (101) 97 Mechanical Ventilator 30.00 10/13/22 21:58 87 111/83 10/13/22 21:00 89 22 117/86 (96) 97 Mechanical Ventilator 30.00 10/13/22 20:17 87 111/83 10/13/22 20:00 84 22 120/87 (98) 96 Mechanical Ventilator 30.00 10/13/22 20:00 97 Mechanical Ventilator 30 10/13/22 19:30 30 10/13/22 19:27 87 111/83 10/13/22 19:09 36.9 89 24 126/82 (97) 97 Mechanical Ventilator 30.00 10/13/22 19:00 93 10/13/22 18:35 86 23 98 30 10/13/22 18:00 94 21 123/80 (94) 97 Mechanical Ventilator 30.00 10/13/22 17:58 90 105/74 10/13/22 17:00 85 21 117/87 (97) 96 Mechanical Ventilator 30.00 10/13/22 16:00 92 22 113/82 (92) 97 Mechanical Ventilator 30.00 10/13/22 16:00 96 Mechanical Ventilator 30 10/13/22 15:37 36.2 10/13/22 15:30 30 10/13/22 15:00 84 22 97 30 10/13/22 15:00 92 21 121/94 (103) 97 Mechanical Ventilator 30.00 10/13/22 14:00 89 22 120/82 (95) 97 Mechanical Ventilator 30.00 10/13/22 13:20 86 10/13/22 13:00 93 22 107/75 (86) 97 Mechanical Ventilator 30.00 10/13/22 12:00 97 Mechanical Ventilator 30 10/13/22 12:00 93 21 111/76 (88) 97 Mechanical Ventilator 30.00 10/13/22 11:30 30 10/13/22 11:00 75 21 110/80 (90) 97 Mechanical Ventilator 30.00 10/13/22 10:41 82 22 99 30 10/13/22 10:00 84 21 94/65 (75) 97 Mechanical Ventilator 30.00 10/13/22 09:41 95 113/78 10/13/22 09:00 90 21 111/74 (86) 98 Mechanical Ventilator 30.00 1/4/23 08:00 90 22 111/75 (87) 97 Mechanical Ventilator 30.00 10/13/22 08:00 96 Mechanical Ventilator 30 10/13/22 07:48 90 112/75 10/13/22 07:44 36.8 10/13/22 07:30 30 I & O 10/14/22 06:59 Intake Total 2280 ml Output Total 3950 ml Balance -1670 ml Height & Weight Height: '" Weight: lbs. oz. kg; 37.65 BMI Method: General Appearance: Anxious, Moderate Distress HEENT: PERRL/EOMI, TMs Normal, Normal ENT Inspection, Pharynx Normal Neck: Full Range of Motion, Normal Inspection, Non Tender, Supple Respiratory: Chest Non Tender, Lungs Clear, Normal Breath Sounds, Rhonci Cardiovascular: No Edema, No JVD, Irregularly Irregular, Tachycardia Capillary Refill: Less Than 3 Seconds Gastrointestinal: normal bowel sounds, other (hypoactive BS) Extremity: Normal Capillary Refill, Normal Inspection, Normal Range of Motion, No Pedal Edema, Other (upper extrem edema but not lower) Neurologic/Psychiatric: Alert, Oriented x3, No Motor/Sensory Deficits; No Normal Mood/Affect; Other (sedated, not pulling on tubes) Skin: Normal Color, Warm/Dry Other comments PE PER RN Results Lab Laboratory Tests 10/13/22 03:53 10/14/22 04:00 Assessment/Plan Assessment/Plan ABOVE Critical Care: Ventilator Management Time spent with patient (mins): 30 JSU JOSEPH MD Oct 14, 2022 07:28
--- NOTE | 2022-10-14 07:33 | Physical Therapy Progress Note ---
Therapy Progress Note Patient currently sedated and intubated. PT will require new orders and will monitor patient status. PT will initiate treatment when patient is able to actively participate with skilled therapy. TAMMY POSADA PT Oct 14, 2022 07:33
[2022-10-14] MEDS ORDERED: POTASSIUM PHOSPHATE INJ 30 MM in NS (IVPB) 250 ML IV ONE (07:45)
--- NOTE | 2022-10-14 08:23 | Progress Note - Cardiology ---
Cardiology SOAP Progress Note Objective: I&O/Vital Signs 10/13/22 10/13/22 10/13/22 10/13/22 23:00 23:30 23:38 23:59 Pulse 85 87 Resp 22 B/P (MAP) 126/79 (95) 111/79 Pulse Ox 97 96 O2 Delivery Mechanical Ventilator Mechanical Ventilator O2 Flow Rate 30.00 FiO2 30 30 10/14/22 10/14/22 10/14/22 10/14/22 00:00 00:00 00:17 01:00 Temp 36.7 Pulse 89 87 88 Resp 22 B/P (MAP) 112/83 (93) 111/79 Pulse Ox 97 O2 Delivery Mechanical Ventilator O2 Flow Rate 30.00 10/14/22 10/14/22 10/14/22 10/14/22 01:00 02:00 02:21 03:00 Pulse 97 91 91 85 Resp 22 22 B/P (MAP) 126/86 (99) 128/95 (106) 119/85 (96) Pulse Ox 98 98 98 98 O2 Delivery Mechanical Ventilator Mechanical Ventilator Mechanical Ventilator O2 Flow Rate 30.00 30.00 30.00 FiO2 30 10/14/22 10/14/22 10/14/22 10/14/22 03:30 03:34 03:38 04:00 Temp 36.9 Pulse 91 91 B/P (MAP) 130/90 130/90 FiO2 30 10/14/22 10/14/22 10/14/22 10/14/22 04:00 04:00 05:00 06:00 Pulse 91 96 92 Resp 22 B/P (MAP) 117/76 (90) 125/90 (102) 126/88 (101) Pulse Ox 98 97 97 97 O2 Delivery Mechanical Ventilator Mechanical Ventilator Mechanical Ventilator Mechanical Ventilator O2 Flow Rate 30.00 30.00 30.00 FiO2 30 10/14/22 10/14/22 10/14/22 10/14/22 06:31 07:00 07:00 07:03 Pulse 88 90 89 88 Resp 22 22 B/P (MAP) 127/86 (100) 120/88 Pulse Ox 98 97 O2 Delivery Mechanical Ventilator O2 Flow Rate 30.00 FiO2 30 10/14/22 10/14/22 10/14/22 10/14/22 07:30 08:00 08:00 08:00 Temp 36.8 Pulse 84 Resp 18 B/P (MAP) 118/81 (93) Pulse Ox 96 98 O2 Delivery Mechanical Ventilator Mechanical Ventilator O2 Flow Rate 30.00 FiO2 30 30 10/14/22 10/14/22 10/14/22 10/14/22 09:00 09:03 09:11 10:00 Pulse 88 88 88 85 Resp 22 22 B/P (MAP) 113/77 (89) 120/88 120/88 121/81 (94) Pulse Ox 98 97 O2 Delivery Mechanical Ventilator Mechanical Ventilator O2 Flow Rate 30.00 30.00 10/14/22 10/14/22 10:28 10:49 Pulse 84 84 Resp 22 B/P (MAP) 112/78 Pulse Ox 97 FiO2 30 10/14/22 00:00 Intake Total 1740 ml Output Total 3325 ml Balance -1585 ml Constitutional: other (intubated and sedated) Respiratory: other (diminshed lower lobes bilat) Cardiovascular: irregularly irregular, S1 and S2 Gastrointestional: audible bowel sounds Genital/Rectal: other (indwelling urinary catheter to DD) Extremities: other (mod bilat LE swelling) Neurologic/Psychiatric: other (sedated) Skin: No rash on exposed areas, No ulcerations on exposed areas Results/Procedures: Labs Laboratory Tests 10/13/22 11:14: Glucometer 136H 10/13/22 17:38: Glucometer 134H 10/14/22 00:57: Glucometer 118H 10/14/22 04:00: White Blood Count 12.5H, Red Blood Count 4.68, Hemoglobin 13.2L, Hematocrit 42, Mean Corpuscular Volume 89, Mean Corpuscular Hemoglobin 28, Mean Corpuscular Hemoglobin Concent 32, Red Cell Distribution Width 20.1H, Platelet Count 190, Mean Platelet Volume 11.7, Immature Granulocyte % (Auto) 1, Neutrophils (%) (Auto) 80H, Lymphocytes (%) (Auto) 7L, Monocytes (%) (Auto) 10, Eosinophils (%) (Auto) 2, Basophils (%) (Auto) 0, Neutrophils # (Auto) 10.0H, Lymphocytes # (Auto) 0.9L, Monocytes # (Auto) 1.2H, Eosinophils # (Auto) 0.3, Basophils # (Auto) 0.0, Immature Granulocyte # (Auto) 0.1, Blood Gas Puncture Site L RAD, Blood Gas Patient Temperature 36.6, Arterial Blood pH 7.41, Arterial Blood Partial Pressure CO2 33L, Arterial Blood Partial Pressure O2 82, Arterial Blood HCO3 21L, Arterial Blood Total CO2 21.8, Arterial Blood Oxygen Saturation 98, Arterial Blood Base Excess -3.1L, Michele Test YES-POS, Blood Gas Ventilator Setting YES, Blood Gas Inspired Oxygen 30%, Sodium Level 146H, Potassium Level 3.5L, Chloride Level 115H, Carbon Dioxide Level 21, Anion Gap 10, Blood Urea Nitrogen 27H, Creatinine 0.85, Estimat Glomerular Filtration Rate 111, BUN/Creatinine Ratio 32, Glucose Level 127H, Calcium Level 8.9, Corrected Calcium 9.6, Phosphorus Level 2.1L, Magnesium Level 1.7, Total Bilirubin 3.0H, Aspartate Amino Transf (AST/SGOT) 36H, Alanine Aminotransferase (ALT/SGPT) 18, Alkaline Phosphatase 93, Total Creatine Kinase 658H, Total Protein 6.5, Albumin 3.1L Microbiology 10/12/22 Gram Stain - Final, Resulted 10/12/22 Sputum Culture - Preliminary, Resulted Staphylococcus aureus Haemophilus influenza Usual upper respiratory travis A/P: Assessment: Acute respiratory failure, ventilator dependent - multi-factorial d/t pneumonia and acute on chronic systolic CHF Acute on chronic systolic congestive heart failure - Echo was done in April 2022 with ejection fraction 40 to 45% with biatrial enlargement, moderate mitral regurgitation, pulmonary artery pressure 45 to 50 mmHg. - Echo of 10-11-[address] Hernandez showed LVEF 35-40%. Mod sized L pleural effusion. Mild MR. Mild to mod TR. Persistent/permanent atrial fibrillation/flutter - HR controlled - History of ablation done in [place] in late 2020, previously refusing any further ablation - Had been maintained on Eliquis (unsure of compliance) - currently on Lovenox Nonischemic cardiomyopathy - cardiac catheterization done in [place] around 2019 did not show any obstructive disease. History of methamphetamine abuse. - Still using it intermittently, he was found to have methamphetamine in his pocket during this hospitalization EtOH abuse. Acute renal failure - renal function improved Hyperlipidemia Tobaccoism History of noncompliance with medication or medical instruction History of elevated liver enzymes. Probably underlying cirrhosis seen on CTA of the abdomen in the past. Plan: Complex management issue d/t issues noted above along with non-compliance, EtOH abuse and continuing meth abuse Continue IV diuretics Currently requiring pressor support Continue BB and NOLVIA as BP allows Continue Aldactone Add Jardiance when able to take oral medications Monitor lab closely Replace electrolytes Lovenox for stroke prophylaxis d/t chronic a-fib/flutter Clinical Quality Measures AMI/AHF: ASA po Prior to arrival: ANN Correa Oct 14, 2022 08:23
--- NOTE | 2022-10-14 08:38 | Progress Note ---
Subjective Subjective/Events-last exam Afebrile, no acute events. Objective Exam Last Set of Vital Signs Vital Signs Date Time Temp Pulse Resp B/P (MAP) Pulse Ox O2 Delivery O2 Flow Rate FiO2 10/14/22 08:00 36.8 10/14/22 07:30 30 10/14/22 07:03 88 120/88 10/14/22 06:31 22 98 10/14/22 06:00 Mechanical Ventilator 30.00 Capillary Refill : Less Than 3 Seconds I&O Intake and Output 10/14/22 00:00 Intake Total 2540 ml Output Total 4200 ml Balance -1660 ml Intake Oral 0 ml IV Total 2300 ml Other 240 ml Output Urine Total 4050 ml Gastric Drainage Total 150 ml General: Other (intubated, sedated) Lungs: Other (ronchi) Heart: Regular Rate Abdomen: Normal Bowel Sounds, Soft Extremities: Other (1+ edema right foot, which was off side of bed at time of exam, placed back onto bed) Results/Procedures Lab Laboratory Tests 10/13/22 11:14: Glucometer 136H 10/13/22 17:38: Glucometer 134H 10/14/22 00:57: Glucometer 118H 10/14/22 04:00: White Blood Count 12.5H, Red Blood Count 4.68, Hemoglobin 13.2L, Hematocrit 42, Mean Corpuscular Volume 89, Mean Corpuscular Hemoglobin 28, Mean Corpuscular Hemoglobin Concent 32, Red Cell Distribution Width 20.1H, Platelet Count 190, Mean Platelet Volume 11.7, Immature Granulocyte % (Auto) 1, Neutrophils (%) (Auto) 80H, Lymphocytes (%) (Auto) 7L, Monocytes (%) (Auto) 10, Eosinophils (%) (Auto) 2, Basophils (%) (Auto) 0, Neutrophils # (Auto) 10.0H, Lymphocytes # (Auto) 0.9L, Monocytes # (Auto) 1.2H, Eosinophils # (Auto) 0.3, Basophils # (Auto) 0.0, Immature Granulocyte # (Auto) 0.1, Blood Gas Puncture Site L RAD, Blood Gas Patient Temperature 36.6, Arterial Blood pH 7.41, Arterial Blood Partial Pressure CO2 33L, Arterial Blood Partial Pressure O2 82, Arterial Blood HCO3 21L, Arterial Blood Total CO2 21.8, Arterial Blood Oxygen Saturation 98, Arterial Blood Base Excess -3.1L, Michele Test YES-POS, Blood Gas Ventilator Setting YES, Blood Gas Inspired Oxygen 30%, Sodium Level 146H, Potassium Level 3.5L, Chloride Level 115H, Carbon Dioxide Level 21, Anion Gap 10, Blood Urea Nitrogen 27H, Creatinine 0.85, Estimat Glomerular Filtration Rate 111, BUN/Creatinine Ratio 32, Glucose Level 127H, Calcium Level 8.9, Corrected Ca lcium 9.6, Phosphorus Level 2.1L, Magnesium Level 1.7, Total Bilirubin 3.0H, Aspartate Amino Transf (AST/SGOT) 36H, Alanine Aminotransferase (ALT/SGPT) 18, Alkaline Phosphatase 93, Total Creatine Kinase 658H, Total Protein 6.5, Albumin 3.1L Microbiology 10/12/22 Gram Stain - Final, Resulted 10/12/22 Sputum Culture - Preliminary, Resulted Staphylococcus aureus Haemophilus influenza Usual upper respiratory travis Assessment/Plan Assessment/Plan (1) Atrial fibrillation with RVR Status: Acute Assessment & Plan: Initially requiring Cardizem drip. Appreciate Cardiology recommendations. (2) Acute on chronic HFrEF (heart failure with reduced ejection fraction) Status: Acute Assessment & Plan: 10/12 Appreciate Cardiology recommendations. Initially receiving IV lasix 40 mg daily, stopped and given bumetanide yesterday. (3) Hypotension Status: Acute Assessment & Plan: Worsening overnight 10/10-10/11, required norepinephrine, weaned back off at this time. (4) Respiratory failure Status: Acute Assessment & Plan: Requiring intubation in ER due to agitation and apnea. Appreciate Paula ICU vent management. Qualifiers: Qualified Codes: J96.01 - Acute respiratory failure with hypoxia (5) HFrEF (heart failure with reduced ejection fraction) Status: Chronic Assessment & Plan: Chronic, EF 40% in April 2022 (6) Persistent atrial fibrillation Status: Chronic Assessment & Plan: On enoxaparin treatment dose while NPO (7) NICM (nonischemic cardiomyopathy) Status: Chronic (8) Rhabdomyolysis Status: Acute Assessment & Plan: CK improved to normal since admission, but back up today. Difficult to manage given fluid overload suspected related to HF. 10/13 trended down 10/14 decreasing CK (9) Methamphetamine abuse Status: Chronic Assessment & Plan: Found to have methamphetamine on person while admitted. services manager when alert. (10) Acute kidney injury Status: Resolved Assessment & Plan: Worsening renal function as of 10/11/22, suspect due to hypotension. Norepinephrine started for hypotension. 10/12- worsening, difficult management given fluid overload present 10/13- improved today, good urine output (11) Cardiomyopathy Status: Chronic Qualifiers: Qualified Codes: I42.9 - Cardiomyopathy, unspecified (12) HTN (hypertension) Status: Chronic Assessment & Plan: Currently hypotensive. (13) HLD (hyperlipidemia) Status: Chronic (14) DVT prophylaxis Status: Acute Assessment & Plan: enoxaparin Clinical Quality Measures AMI/AHF: ASA po Prior to arrival: JB Foreman MD Oct 14, 2022 08:38
--- NOTE | 2022-10-14 08:44 | Diagnostic Imaging Report ---
INDICATION: Respiratory failure EXAM: Portable chest at 5:36 AM. COMPARISON made with the previous study. FINDINGS: There is an ET tube projecting over the trachea. NG tube enters the stomach. There is pulmonary vascular congestion. There are bilateral perihilar infiltrates, right greater than left. IMPRESSION: Vascular congestion with perihilar infiltrates. No significant change compared to the previous study. Dictated by: Dictated on workstation # [id number]
[2022-10-14] MEDS: ENALAPRILAT 2.5 MG/2 ML (VASOTEC) VIAL IV SCH ×2 (08:53→21:22)
[2022-10-14] MEDS: PANTOPRAZOLE 40 MG (PROTONIX) VIAL IV SCH (08:53)
[2022-10-14] MEDS: DOCUSATE SODIUM 10 MG/ML 10 ML UDC (COLACE) PO SCH ×2 (08:53→21:22)
[2022-10-14] MEDS: SPIRONOLACTONE 25 MG (ALDACTONE) TAB NG SCH (08:54)
[2022-10-14] MEDS: VANCOMYCIN 1,750 MG/NS 500 ML IVPB IV SCH ×4 (09:11→21:23)
[2022-10-14] MEDS: BUMETANIDE 1 MG/4 ML (BUMEX) VIAL IV SCH ×2 (09:11→21:22)
[2022-10-14] MEDS: DexMEDEtomidine 250 ML DRIP 250 ML IV SCH ×2 (09:11→17:54)
--- NOTE | 2022-10-14 09:35 | Progress Note - Cardiology ---
Cardiology SOAP Progress Note Subjective: Unresponsive Intubated and on mech vent Objective: I&O/Vital Signs 10/13/22 10/13/22 10/13/22 10/13/22 21:58 22:00 22:44 23:00 Pulse 87 87 87 85 Resp 22 22 B/P (MAP) 111/83 125/89 (101) 126/79 (95) Pulse Ox 97 97 97 O2 Delivery Mechanical Ventilator Mechanical Ventilator O2 Flow Rate 30.00 30.00 FiO2 30 10/13/22 10/13/22 10/13/22 10/14/22 23:30 23:38 23:59 00:00 Temp 36.7 Pulse 87 B/P (MAP) 111/79 Pulse Ox 96 O2 Delivery Mechanical Ventilator FiO2 30 30 10/14/22 10/14/22 10/14/22 10/14/22 00:00 00:17 01:00 01:00 Pulse 89 87 88 97 Resp B/P (MAP) 112/83 (93) 111/79 126/86 (99) Pulse Ox 97 98 O2 Delivery Mechanical Ventilator Mechanical Ventilator O2 Flow Rate 30.00 30.00 10/14/22 10/14/22 10/14/22 10/14/22 02:00 02:21 03:00 03:30 Pulse 91 91 85 Resp 22 B/P (MAP) 128/95 (106) 119/85 (96) Pulse Ox 98 98 98 O2 Delivery Mechanical Ventilator Mechanical Ventilator O2 Flow Rate 30.00 30.00 FiO2 30 30 10/14/22 10/14/22 10/14/22 10/14/22 03:34 03:38 04:00 04:00 Temp 36.9 Pulse 91 91 91 Resp 22 B/P (MAP) 130/90 130/90 117/76 (90) Pulse Ox 98 O2 Delivery Mechanical Ventilator O2 Flow Rate 30.00 10/14/22 10/14/22 10/14/22 10/14/22 04:00 05:00 06:00 06:31 Pulse 96 92 88 Resp 22 B/P (MAP) 125/90 (102) 126/88 (101) Pulse Ox 97 97 97 98 O2 Delivery Mechanical Ventilator Mechanical Ventilator Mechanical Ventilator O2 Flow Rate 30.00 30.00 FiO2 30 30 10/14/22 10/14/22 10/14/22 10/14/22 07:00 07:00 07:03 07:30 Pulse 90 89 88 Resp 22 B/P (MAP) 127/86 (100) 120/88 Pulse Ox 97 O2 Delivery Mechanical Ventilator O2 Flow Rate 30.00 FiO2 30 10/14/22 10/14/22 10/14/22 10/14/22 08:00 08:00 09:00 09:03 Temp 36.8 Pulse 84 88 88 Resp 18 22 B/P (MAP) 118/81 (93) 113/77 (89) 120/88 Pulse Ox 98 98 O2 Delivery Mechanical Ventilator Mechanical Ventilator O2 Flow Rate 30.00 30.00 10/14/22 09:11 Pulse 88 B/P (MAP) 120/88 10/14/22 00:00 Intake Total 1740 ml Output Total 3325 ml Balance -1585 ml Constitutional: other (intubated and sedated) Respiratory: other (diminshed lower lobes bilat) Cardiovascular: irregularly irregular, S1 and S2 Gastrointestional: audible bowel sounds Genital/Rectal: other (indwelling urinary catheter to DD) Extremities: other (mod bilat LE swelling) Neurologic/Psychiatric: other (sedated) Skin: No rash on exposed areas, No ulcerations on exposed areas Results/Procedures: Labs Laboratory Tests 10/13/22 11:14: Glucometer 136H 10/13/22 17:38: Glucometer 134H 10/14/22 00:57: Glucometer 118H 10/14/22 04:00: White Blood Count 12.5H, Red Blood Count 4.68, Hemoglobin 13.2L, Hematocrit 42, Mean Corpuscular Volume 89, Mean Corpuscular Hemoglobin 28, Mean Corpuscular Hemoglobin Concent 32, Red Cell Distribution Width 20.1H, Platelet Count 190, Mean Platelet Volume 11.7, Immature Granulocyte % (Auto) 1, Neutrophils (%) (Auto) 80H, Lymphocytes (%) (Auto) 7L, Monocytes (%) (Auto) 10, Eosinophils (%) (Auto) 2, Basophils (%) (Auto) 0, Neutrophils # (Auto) 10.0H, Lymphocytes # (Auto) 0.9L, Monocytes # (Auto) 1.2H, Eosinophils # (Auto) 0.3, Basophils # (Auto) 0.0, Immature Granulocyte # (Auto) 0.1, Blood Gas Puncture Site L RAD, Blood Gas Patient Temperature 36.6, Arterial Blood pH 7.41, Arterial Blood Partial Pressure CO2 33L, Arterial Blood Partial Pressure O2 82, Arterial Blood HCO3 21L, Arterial Blood Total CO2 21.8, Arterial Blood Oxygen Saturation 98, Arterial Blood Base Excess -3.1L, Michele Test YES-POS, Blood Gas Ventilator Setting YES, Blood Gas Inspired Oxygen 30%, Sodium Level 146H, Potassium Level 3.5L, Chloride Level 115H, Carbon Dioxide Level 21, Anion Gap 10, Blood Urea Nitrogen 27H, Creatinine 0.85, Estimat Glomerular Filtration Rate 111, BUN/Creatinine Ratio 32, Glucose Level 127H, Calcium Level 8.9, Corrected Calcium 9.6, Phosphorus Level 2.1L, Magnesium Level 1.7, Total Bilirubin 3.0H, Aspartate Amino Transf (AST/SGOT) 36H, Alanine Aminotransferase (ALT/SGPT) 18, Alkaline Phosphatase 93, Total Creatine Kinase 658H, Total Protein 6.5, Albumin 3.1L Microbiology 10/12/22 Gram Stain - Final, Resulted 10/12/22 Sputum Culture - Preliminary, Resulted Staphylococcus aureus Haemophilus influenza Usual upper respiratory travis Laboratory Tests 10/13/22 03:53 10/14/22 04:00 A/P: Assessment: Acute respiratory failure, ventilator dependent - multi-factorial d/t pneumonia and acute on chronic systolic CHF Acute on chronic systolic congestive heart failure - Echo was done in April 2022 with ejection fraction 40 to 45% with biatrial enlargement, moderate mitral regurgitation, pulmonary artery pressure 45 to 50 mmHg. - Echo of 10-11-[address] Hernandez showed LVEF 35-40%. Mod sized L pleural effusion. Mild MR. Mild to mod TR. Persistent/permanent atrial fibrillation/flutter - HR controlled - History of ablation done in [place] in late 2020, previously refusing any further ablation - Had been maintained on Eliquis (unsure of compliance) - currently on Lovenox Nonischemic cardiomyopathy - cardiac catheterization done in [place] around 2019 did not show any obstructive disease. History of methamphetamine abuse. - Still using it intermittently, he was found to have methamphetamine in his pocket during this hospitalization EtOH abuse. Acute renal failure - renal function improved Hyperlipidemia Tobaccoism History of noncompliance with medication or medical instruction History of elevated liver enzymes. Probably underlying cirrhosis seen on CTA of the abdomen in the past. Plan: Complex management issue d/t issues noted above along with non-compliance, EtOH abuse and continuing meth abuse Continue IV diuretics Currently requiring pressor support Continue BB and NOLVIA as BP allows Continue Aldactone Add Jardiance when able to take oral medications Monitor lab closely Replace electrolytes Lovenox for stroke prophylaxis d/t chronic a-fib/flutter Clinical Quality Measures AMI/AHF: ASA po Prior to arrival: SAVI Cheng MD FACP FACC CCDS Oct 14, 2022 09:35
[2022-10-14 10:28] VITALS: BP 112/78
[2022-10-14] MEDS: NOREPINEPHRINE 8 MG/250 ML 250 ML IV SCH ×2 (10:48→22:02)
[2022-10-14] MEDS: cefTRIAXone 1 GM PRE-MIX 50 ML IV SCH (12:08)
[2022-10-14 15:02] VITALS: BP 119/86
[2022-10-14 19:32] VITALS: BP 117/91
[2022-10-14 22:25] VITALS: BP 110/71
[2022-10-15] MEDS: RT-ALBUTEROL SULF 2.5 MG/3 ML PRE-MIX VIAL INH SCH ×6 (02:23→22:47)
[2022-10-15] MEDS: DexMEDEtomidine 250 ML DRIP 250 ML IV SCH ×3 (03:02→21:32)
[2022-10-15] MEDS: PROPOFOL DRIP (ICU) 100 ML IV SCH ×4 (03:03→15:53)
[2022-10-15 04:03] LABS: ABG BASE EXCESS -0.7 MMOL/L (-2.5-2.5); ABG OXYGEN SATURATION 96 % (94-100); ABG PCO2 39 MMHG (35-45); ABG PO2 74 MMHG (79-93); ABG TCO2 24.6 MMOL/L (21.0-31.0)
[2022-10-15 04:05] VITALS: BP 112/79
[2022-10-15 04:15] LABS: ALLENS TEST YES-POS; INSPIRED O2 30%; PATIENT TEMP 37.2; VENTILATOR YES
[2022-10-15 04:21] LABS: BASOPHILS % (AUTO) 0 % (0-10); EOSINOPHILS # (AUTO) 0.3 10^3/uL (0.0-0.3); EOSINOPHILS % (AUTO) 2 % (0-10); HEMATOCRIT 40 % (40-54); HEMOGLOBIN 12.7 g/dL (13.3-17.7); LYMPHOCYTES # (AUTO) 1.3 10^3/uL (1.0-4.0); LYMPHOCYTES % (AUTO) 12 % (12-44); MEAN CORPUSCULAR HEMOGLOBIN 28 pg (25-34); MEAN CORPUSCULAR HGB CONC 32 g/dL (32-36); MEAN CORPUSCULAR VOLUME 90 fL (80-99); MEAN PLATELET VOLUME 12.4 fL (9.0-12.2); MONOCYTES % (AUTO) 9 % (0-12); NEUTROPHILS # (AUTO) 8.6 10^3/uL (1.8-7.8); NEUTROPHILS % (AUTO) 75 % (42-75); PLATELET COUNT 208 10^3/uL (130-400); WHITE BLOOD COUNT 11.4 10^3/uL (4.3-11.0)
[2022-10-15 04:36] LABS: BILIRUBIN,TOTAL 2.5 MG/DL (0.1-1.0); CALCIUM 8.9 MG/DL (8.5-10.1); CREATININE SERUM 0.88 MG/DL (0.60-1.30); MAGNESIUM 1.6 MG/DL (1.6-2.4); PHOSPHORUS 2.2 MG/DL (2.3-4.7); POTASSIUM 3.3 MMOL/L (3.6-5.0); TOTAL PROTEIN 6.6 GM/DL (6.4-8.2)
[2022-10-15] MEDS: fentaNYL DRIP PRE-MIX 250 ML IV SCH ×4 (04:53→23:06)
[2022-10-15] MEDS: KCL 20 MEQ TAB (K-DUR) PO SCH (05:05)
[2022-10-15] MEDS: MAGNESIUM 1 GM/100 ML IVPB 100 ML IV SCH ×3 (05:05→06:48)
[2022-10-15] MEDS: POTASSIUM CL 10MEQ/50ML IVPB 50 ML IV SCH ×5 (05:05→07:45)
[2022-10-15] MEDS: meTOprolol 5 MG/5 ML (LOPRESSOR) VIAL IV SCH ×3 (05:37→17:41)
[2022-10-15] MEDS: ENOXAPARIN 120 MG/0.8 ML (LOVENOX) SC SCH ×2 (05:37→17:41)
--- NOTE | 2022-10-15 06:35 | Occ Therapy Progress Note ---
Therapy Progress Note Pt currently intubated. OT to monitor pt's status then will initiate treatment when pt is medically stable and able to actively participate in skilled therapy. DAKOTAH YANG Oct 15, 2022 06:35
[2022-10-15 06:54] VITALS: BP 129/90
--- NOTE | 2022-10-15 07:29 | Physical Therapy Progress Note ---
Therapy Progress Note Patient currently sedated and intubated. PT will require new orders and will monitor patient status. PT will initiate treatment when patient is able to actively participate with skilled therapy. TAMMY POSADA PT Oct 15, 2022 07:29
[2022-10-15] MEDS ORDERED: TROUGH ORDER-PHARMACY XX ONE (08:00)
[2022-10-15] MEDS: BUMETANIDE 1 MG/4 ML (BUMEX) VIAL IV SCH ×2 (08:28→20:00)
[2022-10-15] MEDS: PANTOPRAZOLE 40 MG (PROTONIX) VIAL IV SCH (08:28)
[2022-10-15] MEDS: DOCUSATE SODIUM 10 MG/ML 10 ML UDC (COLACE) PO SCH ×2 (08:28→20:00)
[2022-10-15] MEDS: SPIRONOLACTONE 25 MG (ALDACTONE) TAB NG SCH (08:28)
[2022-10-15] MEDS: ENALAPRILAT 2.5 MG/2 ML (VASOTEC) VIAL IV SCH ×2 (08:28→20:00)
[2022-10-15] MEDS: NOREPINEPHRINE 8 MG/250 ML 250 ML IV SCH ×2 (08:39→19:27)
[2022-10-15] MEDS: VANCOMYCIN 1,750 MG/NS 500 ML IVPB IV SCH ×4 (09:08→20:02)
--- NOTE | 2022-10-15 09:34 | Diagnostic Imaging Report ---
INDICATION: Lower respiratory infection Portable chest 3:41 AM ET tube projects over the trachea. NG tube enters the stomach. Right upper extremity PICC line tip projects over the SVC. There are infiltrates present in both lower lungs more extensive on the right than on the left. IMPRESSION: Bilateral lower lung infiltrates worse on the right than on the left, these are not significantly changed from previous study. Dictated by: Dictated on workstation # [id number]
--- NOTE | 2022-10-15 09:53 | Tele-ICU Progress Note ---
Subjective Date Seen by a Provider: Oct 15, 2022 Subjective/Events-last exam This virtual visit was conducted using real time audio/video. Thank you for asking us to see this patient for respiratory insufficiency, urgent intubation 10/08/2022 in ER to protect airway. Admitted w ac on chr CHF, CMP, chest pain , agitation, meth usage, pna, afib. PE: obese, sedated on vent. VSS. O2 sat 97% on AC18/500/30%/+5 HEENT: No obvious masses, adenopathy or JVD. Chest: considerable secretions and coarse wheezing on auscultation. CV: irreg. S1 S2 No murmur or added sounds. Abd: Non-tender. Bowel sounds Y. : Unremarkable. Locke Y. SIGN BOARD ERECTOR/psychiatric: Grossly intact. No obvious focal findings. Extremities: 1+ edema. Capillary refill < 3 seconds. Skin: unremarkable. Results: Elevated WCC 11.4, Na 148, BUN 22. Decreased Hb 12.7, K 3.3. AB .4/39/74 on 30%.. CXR: B inf, more on R. Available chart/ vitals / labs / images reviewed. Video assessment done using teleICU camera, rest of exam as per RN. A/P: Respiratory insufficiency: Continue present management with vent, prec., propofol, fent. Not ready for SBT. Critical Care: critically ill patient. Cont. abx,dilt., PPI, vasotec, elvie. Consider holding diuretics with increased Na. Discussed with RN Sailaja. Asked RN to reach out to eICU if any questions or concern s later. Time spent with patient/coordination of care with other health professionals (mins):25. Sepsis Event Evaluation Height, Weight, BMI Height: '" Weight: lbs. oz. kg; 37.65 BMI Method: Exam Exam Patient acknowledged, consented, and participated in this virtual visit which was conducted using real time audio/video Vital Signs Date Time Temp Pulse Resp B/P (MAP) Pulse Ox O2 Delivery O2 Flow Rate FiO2 10/15/22 08:28 95 129/90 10/15/22 08:00 104 117/88 (98) 93 Mechanical Ventilator 30.00 10/15/22 07:49 36.7 10/15/22 07:30 30 10/15/22 07:03 95 129/90 10/15/22 07:02 95 129/90 10/15/22 07:00 98 10/15/22 07:00 91 131/89 (103) 95 Mechanical Ventilator 30.00 10/15/22 06:54 95 22 96 30 10/15/22 06:49 88 123/87 10/15/22 06:00 88 123/87 (99) 96 Mechanical Ventilator 30.00 10/15/22 05:00 96 123/80 (94) 96 Mechanical Ventilator 30.00 10/15/22 04:53 88 112/79 10/15/22 04:05 88 23 98 30 10/15/22 04:00 99 Mechanical Ventilator 30 10/15/22 04:00 89 26 113/77 (89) 94 Mechanical Ventilator 30.00 10/15/22 03:30 30 10/15/22 03:03 84 110/71 10/15/22 03:02 84 110/71 10/15/22 03:00 90 21 112/79 (90) 96 Mechanical Ventilator 30.00 10/15/22 02:02 84 110/71 10/15/22 02:02 84 110/71 10/15/22 02:00 98 22 122/79 (93) 96 Mechanical Ventilator 30.00 10/15/22 01:00 92 21 118/81 (93) 96 Mechanical Ventilator 30.00 10/15/22 01:00 88 10/15/22 00:00 91 22 112/74 (87) 95 Mechanical Ventilator 30.00 10/14/22 23:59 97 Mechanical Ventilator 30 10/14/22 23:52 37.3 10/14/22 23:30 30 10/14/22 23:00 86 22 122/76 (91) 96 Mechanical Ventilator 30.00 10/14/22 22:25 84 23 97 30 10/14/22 22:02 85 122/76 10/14/22 22:02 85 122/76 10/14/22 22:00 82 20 110/71 (84) 96 Mechanical Ventilator 30.00 10/14/22 21:55 85 122/76 10/14/22 21:54 85 122/76 10/14/22 21:00 85 21 122/76 (91) 95 Mechanical Ventilator 30.00 10/14/22 20:00 96 Mechanical Ventilator 30 10/14/22 20:00 93 22 119/78 (92) 95 Mechanical Ventilator 30.00 10/14/22 19:32 85 23 98 30 10/14/22 19:30 30 10/14/22 19:28 85 117/91 10/14/22 19:17 37.0 84 21 127/86 (100) 96 Mechanical Ventilator 30.00 10/14/22 19:00 90 10/14/22 18:00 87 21 115/83 (94) 96 Mechanical Ventilator 30.00 10/14/22 17:55 90 116/76 10/14/22 17:54 90 116/76 10/14/22 17:00 90 23 116/76 (89) 97 Mechanical Ventilator 30.00 10/14/22 16:50 96 127/66 10/14/22 16:00 96 22 127/66 (86) 96 Mechanical Ventilator 30.00 10/14/22 16:00 95 Mechanical Ventilator 30 10/14/22 15:30 30 10/14/22 15:28 88 119/86 10/14/22 15:02 88 23 98 30 10/14/22 15:00 87 23 116/74 (88) 100 Mechanical Ventilator 30.00 10/14/22 14:00 90 21 108/75 (86) 95 Mechanical Ventilator 30.00 10/14/22 13:33 84 111/83 10/14/22 13:00 94 10/14/22 13:00 85 22 117/84 (95) 97 Mechanical Ventilator 30.00 10/14/22 12:14 84 111/83 10/14/22 12:00 84 21 111/83 (92) 95 Mechanical Ventilator 30.00 10/14/22 12:00 98 Mechanical Ventilator 30 10/14/22 11:54 37.3 10/14/22 11:30 30 10/14/22 11:00 94 22 115/77 (90) 96 Mechanical Ventilator 30.00 10/14/22 10:49 84 112/78 10/14/22 10:28 84 22 97 30 10/14/22 10:00 85 22 121/81 (94) 97 Mechanical Ventilator 30.00 I & O 10/15/22 07:00 Intake Total 4557.5 ml Output Total 3975 ml Balance 582.5 ml Height & Weight Height: '" Weight: lbs. oz. kg; 37.65 BMI Method: General Appearance: Anxious, Moderate Distress HEENT: PERRL/EOMI, TMs Normal, Normal ENT Inspection, Pharynx Normal Neck: Full Range of Motion, Normal Inspection, Non Tender, Supple Respiratory: Chest Non Tender, Lungs Clear, Normal Breath Sounds, Rhonci Cardiovascular: No Edema, No JVD, Irregularly Irregular, Tachycardia Capillary Refill: Less Than 3 Seconds Gastrointestinal: normal bowel sounds, other (hypoactive BS) Extremity: Normal Capillary Refill, Normal Inspection, Normal Range of Motion, No Pedal Edema, Other (upper extrem edema but not lower) Neurologic/Psychiatric: Alert, Oriented x3, No Motor/Sensory Deficits; No Normal Mood/Affect; Other (sedated, not pulling on tubes) Skin: Normal Color, Warm/Dry Results Lab Laboratory Tests 10/14/22 04:00 10/15/22 03:45 Assessment/Plan Assessment/Plan see free text Critical Care: Ventilator Management VALDO QUARLES MD Oct 15, 2022 09:53
[2022-10-15 10:48] VITALS: BP 115/84
[2022-10-15] MEDS: cefTRIAXone 1 GM PRE-MIX 50 ML IV SCH (11:54)
--- NOTE | 2022-10-15 13:09 | Progress Note ---
Subjective Subjective/Events-last exam Afebrile, remains intubated. Objective Exam Last Set of Vital Signs Vital Signs Date Time Temp Pulse Resp B/P (MAP) Pulse Ox O2 Delivery O2 Flow Rate FiO2 10/15/22 12:58 95 Mechanical Ventilator 30 10/15/22 12:00 93 21 102/75 (84) 30.00 10/15/22 11:43 36.4 Capillary Refill : Less Than 3 Seconds I&O Intake and Output 10/15/22 00:00 Intake Total 4437.5 ml Output Total 2750 ml Balance 1687.5 ml Intake Oral 0 ml IV Total 4327.5 ml Tube Feeding 60 ml Other 50 ml Output Urine Total 2750 ml General: Other (intubated, sedated) Lungs: Normal Air Movement, Other (ronchi throughout, less than previous days) Heart: Regular Rate Abdomen: Normal Bowel Sounds, Other (mildly distended) Extremities: No Edema Results/Procedures Lab Laboratory Tests 10/14/22 17:34: Glucometer 122H 10/14/22 18:06: Triglycerides Level 133 10/14/22 23:54: Glucometer 110 10/15/22 03:45: White Blood Count 11.4H, Red Blood Count 4.49, Hemoglobin 12.7L, Hematocrit 40, Mean Corpuscular Volume 90, Mean Corpuscular Hemoglobin 28, Mean Corpuscular Hemoglobin Concent 32, Red Cell Distribution Width 20.2H, Platelet Count 208, Mean Platelet Volume 12.4H, Immature Granulocyte % (Auto) 1, Neutrophils (%) (Auto) 75, Lymphocytes (%) (Auto) 12, Monocytes (%) (Auto) 9, Eosinophils (%) (Auto) 2, Basophils (%) (Auto) 0, Neutrophils # (Auto) 8.6H, Lymphocytes # (Auto) 1.3, Monocytes # (Auto) 1.0, Eosinophils # (Auto) 0.3, Basophils # (Auto) 0.0, Immature Granulocyte # (Auto) 0.1, Blood Gas Puncture Site LRAD, Blood Gas Patient Temperature 37.2, Arterial Blood pH 7.40, Arterial Blood Partial Pressure CO2 39, Arterial Blood Partial Pressure O2 74L, Arterial Blood HCO3 23, Arterial Blood Total CO2 24.6, Arterial Blood Oxygen Saturation 96, Arterial Blood Base Excess -0.7, Michele Test YES-POS, Blood Gas Ventilator Setting YES, Blood Gas Inspired Oxygen 30%, Sodium Level 148H, Potassium Level 3.3L, Chloride Level 114H, Carbon Dioxide Level 22, Anion Gap 12, Blood Urea Nitrogen 22H, Creatinine 0.88, Estimat Glomerular Filtration Rate 109, BUN/Creatinine Ratio 25, Glucose Level 112H, Calcium Level 8.9, Corrected Calcium 9.7, Phosphorus Level 2.2L, Magnesium Level 1.6, Total Bilirubin 2.5H, Aspartate Amino Transf (AST/SGOT) 47H, Alanine Aminotransferase (ALT/SGPT) 21, Alkaline Phosphatase 99, Total Creatine Kinase 939H, Total Protein 6.6, Albumin 3.0L 10/15/22 08:25: Vancomycin Level Trough 14.9 10/15/22 11:01: Glucometer 118H Microbiology 10/12/22 Gram Stain - Final, Resulted 10/12/22 Sputum Culture - Preliminary, Resulted Usual upper respiratory travis Staphylococcus aureus Haemophilus influenza Assessment/Plan Assessment/Plan (1) Atrial fibrillation with RVR Status: Acute Assessment & Plan: Initially requiring Cardizem drip. Appreciate Cardiology recommendations. (2) Acute on chronic HFrEF (heart failure with reduced ejection fraction) Status: Acute Assessment & Plan: 10/12 Appreciate Cardiology recommendations. Initially receiving IV lasix 40 mg daily, stopped and given bumetanide yesterday. 10/15 continued on bumetanide (3) Hypotension Status: Acute Assessment & Plan: Worsening overnight 10/10-10/11, required norepinephrine, weaned back off at this time. (4) Respiratory failure Status: Acute Assessment & Plan: Requiring intubation in ER due to agitation and apnea. Appreciate Paula ICU vent management. Qualifiers: Qualified Codes: J96.01 - Acute respiratory failure with hypoxia (5) HFrEF (heart failure with reduced ejection fraction) Status: Chronic Assessment & Plan: Chronic, EF 40% in April 2022 (6) Persistent atrial fibrillation Status: Chronic Assessment & Plan: On enoxaparin treatment dose while NPO (7) NICM (nonischemic cardiomyopathy) Status: Chronic (8) Rhabdomyolysis Status: Acute Assessment & Plan: CK improved to normal since admission, but back up today. Difficult to manage given fluid overload suspected related to HF. 10/13 trended down 10/14 decreasing CK (9) Methamphetamine abuse Status: Chronic Assessment & Plan: Found to have methamphetamine on person while admitted. financial services associate when alert. (10) Acute kidney injury Status: Resolved Assessment & Plan: Worsening renal function as of 10/11/22, suspect due to hypotension. Norepinephrine started for hypotension. 10/12- worsening, difficult management given fluid overload present 10/13- improved today, good urine output (11) Cardiomyopathy Status: Chronic Qualifiers: Qualified Codes: I42.9 - Cardiomyopathy, unspecified (12) HTN (hypertension) Status: Chronic (13) HLD (hyperlipidemia) Status: Chronic (14) DVT prophylaxis Status: Acute Assessment & Plan: enoxaparin Clinical Quality Measures AMI/AHF: ASA po Prior to arrival: JB Foreman MD Oct 15, 2022 13:09
[2022-10-15 14:43] VITALS: BP 104/76
--- NOTE | 2022-10-15 15:07 | Progress Note - Cardiology ---
Cardiology SOAP Progress Note Subjective: Unresponsive On mech vent Objective: I&O/Vital Signs 10/15/22 10/15/22 10/15/22 10/15/22 03:30 04:00 04:00 04:05 Pulse 89 88 Resp B/P (MAP) 113/77 (89) Pulse Ox 94 99 98 O2 Delivery Mechanical Ventilator Mechanical Ventilator O2 Flow Rate 30.00 FiO2 30 30 30 10/15/22 10/15/22 10/15/22 10/15/22 04:53 05:00 06:00 06:49 Pulse 88 96 88 88 B/P (MAP) 112/79 123/80 (94) 123/87 (99) 123/87 Pulse Ox 96 96 O2 Delivery Mechanical Ventilator Mechanical Ventilator O2 Flow Rate 30.00 30.00 10/15/22 10/15/22 10/15/22 10/15/22 06:54 07:00 07:00 07:02 Pulse 95 91 98 95 Resp B/P (MAP) 131/89 (103) 129/90 Pulse Ox 96 95 O2 Delivery Mechanical Ventilator O2 Flow Rate 30.00 FiO2 30 10/15/22 10/15/22 10/15/22 10/15/22 07:03 07:30 07:49 08:00 Temp 36.7 Pulse 95 B/P (MAP) 129/90 Pulse Ox 98 O2 Delivery Mechanical Ventilator FiO2 30 30 10/15/22 10/15/22 10/15/22 10/15/22 08:00 08:28 09:00 10:00 Pulse 104 95 92 99 B/P (MAP) 117/88 (98) 129/90 115/83 (94) 117/87 (97) Pulse Ox 93 96 93 O2 Delivery Mechanical Ventilator Mechanical Ventilator Mechanical Ventilator O2 Flow Rate 30.00 30.00 30.00 10/15/22 10/15/22 10/15/22 10/15/22 10:48 10:58 11:00 11:24 Pulse 98 98 98 98 Resp 22 B/P (MAP) 115/84 108/73 (85) 108/73 Pulse Ox 94 91 O2 Delivery Mechanical Ventilator O2 Flow Rate 30.00 FiO2 30 10/15/22 10/15/22 10/15/22 10/15/22 11:30 11:43 11:55 11:59 Temp 36.4 Pulse 98 98 B/P (MAP) 108/73 108/73 FiO2 30 10/15/22 10/15/22 10/15/22 10/15/22 12:00 12:58 13:00 13:00 Pulse 93 106 96 Resp 21 21 B/P (MAP) 102/75 (84) 98/74 (82) Pulse Ox 90 95 94 O2 Delivery Mechanical Ventilator Mechanical Ventilator Mechanical Ventilator O2 Flow Rate 30.00 30.00 FiO2 30 10/15/22 10/15/22 14:00 14:43 Pulse 98 89 Resp 22 22 B/P (MAP) 99/71 (80) Pulse Ox 96 96 O2 Delivery Mechanical Ventilator O2 Flow Rate 30.00 FiO2 30 10/15/22 00:00 Intake Total 1920 ml Output Total 2225 ml Balance -305 ml Constitutional: other (intubated and sedated) Respiratory: other (diminshed lower lobes bilat) Cardiovascular: irregularly irregular, S1 and S2 Gastrointestional: audible bowel sounds Genital/Rectal: other (indwelling urinary catheter to DD) Extremities: other (mod bilat LE swelling) Neurologic/Psychiatric: other (sedated) Skin: No rash on exposed areas, No ulcerations on exposed areas Results/Procedures: Labs Laboratory Tests 10/14/22 17:34: Glucometer 122H 10/14/22 18:06: Triglycerides Level 133 10/14/22 23:54: Glucometer 110 10/15/22 03:45: White Blood Count 11.4H, Red Blood Count 4.49, Hemoglobin 12.7L, Hematocrit 40, Mean Corpuscular Volume 90, Mean Corpuscular Hemoglobin 28, Mean Corpuscular Hemoglobin Concent 32, Red Cell Distribution Width 20.2H, Platelet Count 208, Mean Platelet Volume 12.4H, Immature Granulocyte % (Auto) 1, Neutrophils (%) (Auto) 75, Lymphocytes (%) (Auto) 12, Monocytes (%) (Auto) 9, Eosinophils (%) (Auto) 2, Basophils (%) (Auto) 0, Neutrophils # (Auto) 8.6H, Lymphocytes # (Auto) 1.3, Monocytes # (Auto) 1.0, Eosinophils # (Auto) 0.3, Basophils # (Auto) 0.0, Immature Granulocyte # (Auto) 0.1, Blood Gas Puncture Site LRAD, Blood Gas Patient Temperature 37.2, Arterial Blood pH 7.40, Arterial Blood Partial P ressure CO2 39, Arterial Blood Partial Pressure O2 74L, Arterial Blood HCO3 23, Arterial Blood Total CO2 24.6, Arterial Blood Oxygen Saturation 96, Arterial Blood Base Excess -0.7, Michele Test YES-POS, Blood Gas Ventilator Setting YES, Blood Gas Inspired Oxygen 30%, Sodium Level 148H, Potassium Level 3.3L, Chloride Level 114H, Carbon Dioxide Level 22, Anion Gap 12, Blood Urea Nitrogen 22H, Cre atinine 0.88, Estimat Glomerular Filtration Rate 109, BUN/Creatinine Ratio 25, Glucose Level 112H, Calcium Level 8.9, Corrected Calcium 9.7, Phosphorus Level 2.2L, Magnesium Level 1.6, Total Bilirubin 2.5H, Aspartate Amino Transf (AST/SGOT) 47H, Alanine Aminotransferase (ALT/SGPT) 21, Alkaline Phosphatase 99, Total Creatine Kinase 939H, Total Protein 6.6, Albumin 3.0L 10/15/22 08:25: Vancomycin Level Trough 14.9 10/15/22 11:01: Glucometer 118H Microbiology 10/12/22 Gram Stain - Final, Complete 10/12/22 Sputum Culture - Final, Complete Usual upper respiratory travis Staphylococcus aureus Haemophilus influenza Laboratory Tests 10/14/22 04:00 10/15/22 03:45 A/P: Assessment: Acute respiratory failure, ventilator dependent - multi-factorial d/t pneumonia and acute on chronic systolic CHF Acute on chronic systolic congestive heart failure - Echo was done in April 2022 with ejection fraction 40 to 45% with biatrial enla rgement, moderate mitral regurgitation, pulmonary artery pressure 45 to 50 mmHg. - Echo of 10-11-[address] Hernandez showed LVEF 35-40%. Mod sized L pleural effusion. Mild MR. Mild to mod TR. Persistent/permanent atrial fibrillation/flutter - HR controlled - History of ablation done in [place] in late 2020, previously refusing any further ablation - Had been maintained on Eliquis (unsure of compliance) - currently on Lovenox Nonischemic cardiomyopathy - cardiac catheterization done in [place] around 2019 did not show any obstructive disease. History of methamphetamine abuse. - Still using it intermittently, he was found to have methamphetamine in his pocket during this hospitalization EtOH abuse. Acute renal failure - renal function improved Hyperlipidemia Tobaccoism History of noncompliance with medication or medical instruction History of elevated liver enzymes. Probably underlying cirrhosis seen on CTA of the abdomen in the past. Plan: Complex management issue d/t issues noted above along with non-compliance, EtOH abuse, and continuing meth abuse Continue IV diuretics Pressor support as needed Continue BB and NOLVIA as BP allows Continue Aldactone Add SGLT2-inhibitors when able to take oral medications Monitor lab closely Replace electrolytes Lovenox for stroke prophylaxis d/t chronic a-fib/flutter Clinical Quality Measures AMI/AHF: ASA po Prior to arrival: SAVI Cheng MD FACP FACC CCDS Oct 15, 2022 15:07
[2022-10-15] MEDS: D5 LR IV SOLUTION 1,000 ML IV SCH (15:52)
--- NOTE | 2022-10-15 15:57 | Diagnostic Imaging Report ---
INDICATION: ET tube placement. EXAMINATION: Frontal chest was obtained at 3:49 p.m. COMPARISON: 10/15/2022 at 3:41 a.m. ET tube tip overlies mid trachea. NG tube tip overlies mid stomach. Right-sided PICC line catheter tip is unchanged with tip overlying the SVC. There is cardiomegaly and central vascular congestion with unchanged bilateral infiltrates. IMPRESSION: Stable life support lines. Unchanged bilateral infiltrates with underlying cardiomegaly. No pneumothorax or significant sized pleural effusion. Dictated by: Dictated on workstation # [id number]
[2022-10-15 19:13] VITALS: BP 131/101
[2022-10-15] MEDS: polyethylene glycoL POWDER 17 GM (MIRALAX) PACK PO PRN (20:00)
[2022-10-15 22:47] VITALS: BP 113/86
[2022-10-16] VITALS (7 sets, daily range): BP systolic 93–125; BP diastolic 62–101
[2022-10-16] MEDS: meTOprolol 5 MG/5 ML (LOPRESSOR) VIAL IV SCH ×2 (00:17→05:41)
[2022-10-16] MEDS: PROPOFOL DRIP (ICU) 100 ML IV SCH ×2 (01:28→06:30)
[2022-10-16] MEDS: RT-ALBUTEROL SULF 2.5 MG/3 ML PRE-MIX VIAL INH SCH ×6 (02:29→22:53)
[2022-10-16 04:50] LABS: BASOPHILS % (AUTO) 0 % (0-10); EOSINOPHILS # (AUTO) 0.6 10^3/uL (0.0-0.3); EOSINOPHILS % (AUTO) 5 % (0-10); HEMATOCRIT 43 % (40-54); HEMOGLOBIN 13.3 g/dL (13.3-17.7); LYMPHOCYTES # (AUTO) 1.2 10^3/uL (1.0-4.0); LYMPHOCYTES % (AUTO) 10 % (12-44); MEAN CORPUSCULAR HEMOGLOBIN 28 pg (25-34); MEAN CORPUSCULAR HGB CONC 31 g/dL (32-36); MEAN CORPUSCULAR VOLUME 90 fL (80-99); MEAN PLATELET VOLUME 11.6 fL (9.0-12.2); MONOCYTES # (AUTO) 0.7 10^3/uL (0.0-1.0); MONOCYTES % (AUTO) 6 % (0-12); NEUTROPHILS # (AUTO) 9.5 10^3/uL (1.8-7.8); NEUTROPHILS % (AUTO) 78 % (42-75); PLATELET COUNT 228 10^3/uL (130-400); WHITE BLOOD COUNT 12.2 10^3/uL (4.3-11.0)
[2022-10-16] MEDS: POTASSIUM CL 10MEQ/50ML IVPB 50 ML IV SCH ×5 (05:00→08:18)
[2022-10-16] MEDS: MAGNESIUM 1 GM/100 ML IVPB 100 ML IV SCH ×3 (05:00→06:43)
[2022-10-16 05:01] LABS: ABG BASE EXCESS 0.7 MMOL/L (-2.5-2.5); ABG OXYGEN SATURATION 96 % (94-100); ABG PCO2 35 MMHG (35-45); ABG PH 7.45 (7.37-7.43); ABG PO2 66 MMHG (79-93); ABG TCO2 25.4 MMOL/L (21.0-31.0)
[2022-10-16] MEDS: NOREPINEPHRINE 8 MG/250 ML 250 ML IV SCH ×2 (05:01→18:35)
[2022-10-16] MEDS: KCL 20 MEQ TAB (K-DUR) PO SCH (05:01)
[2022-10-16 05:02] LABS: ALLENS TEST YES-POS; INSPIRED O2 30%; PATIENT TEMP 37; VENTILATOR YES
[2022-10-16 05:15] LABS: BILIRUBIN,TOTAL 2.2 MG/DL (0.1-1.0); CREATININE SERUM 0.7 MG/DL (0.60-1.30); MAGNESIUM 1.6 MG/DL (1.6-2.4); PHOSPHORUS 2.6 MG/DL (2.3-4.7); POTASSIUM 3.2 MMOL/L (3.6-5.0); TOTAL PROTEIN 6.7 GM/DL (6.4-8.2)
[2022-10-16] MEDS ORDERED: MAGNESIUM 1 GM/100 ML IVPB 200 ML IV ONE (05:26)
[2022-10-16] MEDS ORDERED: POTASSIUM CL 10MEQ/50ML IVPB 200 ML IV ONE (05:26)
[2022-10-16] MEDS: ENOXAPARIN 120 MG/0.8 ML (LOVENOX) SC SCH (05:40)
[2022-10-16] MEDS: fentaNYL DRIP PRE-MIX 250 ML IV SCH (05:41)
[2022-10-16] MEDS: DexMEDEtomidine 250 ML DRIP 250 ML IV SCH (06:30)
--- NOTE | 2022-10-16 08:13 | Diagnostic Imaging Report ---
EXAM: CHEST 1 VIEW, AP/PA ONLY. INDICATION: Pneumonia. COMPARISON: 10/15/2022. FINDINGS: ETT tip midway between the level of the clavicles and jeremias. NG tube tip below the [id number]. Right PICC tip low SVC. Low lung volumes. Persistent diffuse bilateral interstitial and airspace opacities. Normal heart size. Probable small left pleural effusion. No pneumothorax. IMPRESSION: 1. Persistent diffuse pulmonary infiltrates. 2. Support lines in the expected positions. Dictated by: Dictated on workstation # [id number]
[2022-10-16] MEDS: BUMETANIDE 1 MG/4 ML (BUMEX) VIAL IV SCH ×2 (08:18→20:25)
[2022-10-16] MEDS: VANCOMYCIN 1,750 MG/NS 500 ML IVPB IV SCH ×4 (08:18→21:14)
[2022-10-16] MEDS: PANTOPRAZOLE 40 MG (PROTONIX) VIAL IV SCH (08:18)
[2022-10-16] MEDS: SPIRONOLACTONE 25 MG (ALDACTONE) TAB NG SCH (08:18)
[2022-10-16] MEDS: DOCUSATE SODIUM 10 MG/ML 10 ML UDC (COLACE) PO SCH ×2 (08:18→20:26)
[2022-10-16] MEDS: ENALAPRILAT 2.5 MG/2 ML (VASOTEC) VIAL IV SCH (08:19)
--- NOTE | 2022-10-16 08:39 | Tele-ICU Progress Note ---
Subjective Date Seen by a Provider: Oct 16, 2022 Time Seen by a Provider: 11:25 Subjective/Events-last exam Subjective/Events-last exam vailable chart/ vitals / labs / Images reviewed H&P is from ER notes Patient's information available about PMH, allergy reviewed in EMR. ROS as per chart and RN report Video assessment done using teleICU camera, rest of exam as per RN Discussed with RN. This gentleman with a past medical history of for decreased ejection fraction, atrial fibrillation with rapid ventricular rate, methamphetamine and alcohol abuse presented to the emergency room with a complaint of chest pain and he is found to have a twitchings, picking at skin and rolling around the bed continuously. As he appears to be in a withdrawal state he is intubated and put on mechanical ventilation. He is started on diltiazem drip and admitted to the intensive care unit. Further details not available. 10/09/22. He is agitated on and off requring to increase sedation. urine is some what pinkinsh. 10/11/22 pt remaine on vent. BP is some what low and getting Low dose levophed. Picc line being inserted. CXR shows cardiomegaly and pulmonary congestive changes. Picc line in place 10/12/22 PT'S et tube cuff broke yesterday needing to replace ET tube. Now ET in good place. CXR showing [place]. Infiltrates suggestive of pulmonary edema. However pneumonia can not be ruled out. 10/13/22 pt remained on vent and sedated. he responded well to bumex and he will receive again. sputum gre staph aureus and probable hemophilus . started on vancomycin and cefepime. 10/14/22 HE IS ON THE VENT ,SEDATED. CXR SHOWING CONTINUED PULMONARY CONGESTIVE CHANGES. INCRESED BUMEX 2 MG IV Q 12HRS. 10/16/2022today he is doing better, tried on sbt and passed. he is subsequently extubated and tolerating with 2 l N/C. no distress. diuressing well. low k replaced. Impression 1. Acute hypoxic respiratory failure requiring intubation and mechanical ventilation improving and he is extubated on 10/16/22. tolerating well. 2. Chest pain with elevated troponin rule out non-STEMI 3. Atrial fibrillation with rapid ventricular rate. Now rate controlled. 4. Acute on chronic systolic congestive heart failure 5. Acute and chronic methamphetamine abuse. 6. gram positive and gram negative pneumonia 7. monitor for hematuria Recommendations 1. He is extubated on 10/16/22 and tolerating well 2. Diltiazem drip per cardiology 3. DVT prophylaxis and ulcer prophylaxis 4. Monitor for withdrawal symptoms and sedate accordingly. 5. will continue levophed and give bumex 2 mg iv 12 hrs and see the response.. if necessary will up titrate levophed. 6. continue iv vancomycin and ceftriaxone. Plans in coordination with consultants and bedside primary MDs. Reviewed with [employer]. Sepsis Event Evaluation Height, Weight, BMI Height: '" Weight: lbs. oz. kg; 37.65 BMI Method: Exam Exam Patient acknowledged, consented, and participated in this virtual visit which was conducted using real time audio/video Vital Signs Date Time Temp Pulse Resp B/P (MAP) Pulse Ox O2 Delivery O2 Flow Rate FiO2 10/16/22 08:20 95 Mechanical Ventilator 30 10/16/22 08:00 93 22 105/75 (85) 95 Mechanical Ventilator 30.00 10/16/22 07:50 36.4 10/16/22 07:34 82 22 96 30 10/16/22 07:30 30 10/16/22 07:00 92 21 102/69 (80) 95 Mechanical Ventilator 30.00 10/16/22 07:00 89 10/16/22 06:30 99 112/75 10/16/22 06:30 99 112/75 10/16/22 06:00 99 22 112/75 (87) 97 Mechanical Ventilator 30.00 10/16/22 05:41 96 126/91 10/16/22 05:28 96 126/91 10/16/22 05:00 96 21 115/82 (93) 97 Mechanical Ventilator 30.00 10/16/22 04:00 95 Mechanical Ventilator 30 10/16/22 04:00 96 21 126/91 (103) 98 Mechanical Ventilator 30.00 10/16/22 03:39 36.7 10/16/22 03:30 30 10/16/22 03:06 91 113/82 10/16/22 03:00 87 21 130/99 (109) 98 Mechanical Ventilator 30.00 10/16/22 02:29 91 22 96 30 10/16/22 02:00 98 21 111/77 (88) 96 Mechanical Ventilator 30.00 1/7/23 01:32 96 113/86 10/16/22 01:28 96 113/86 10/16/22 01:00 101 10/16/22 01:00 106 22 124/90 (101) 97 Mechanical Ventilator 30.00 10/16/22 00:00 105 22 110/92 (98) 96 Mechanical Ventilator 30.00 10/16/22 00:00 36.0 10/15/22 23:59 95 Mechanical Ventilator 30 10/15/22 23:30 30 10/15/22 23:06 96 113/86 10/15/22 23:00 108 21 113/86 (95) 95 Mechanical Ventilator 30.00 10/15/22 22:47 96 22 94 30 10/15/22 22:00 91 21 126/82 (97) 95 Mechanical Ventilator 30.00 10/15/22 21:32 109 131/101 10/15/22 21:25 96 113/86 10/15/22 21:00 101 21 122/93 (103) 95 Mechanical Ventilator 30.00 10/15/22 20:00 111 22 129/88 (102) 97 Mechanical Ventilator 30.00 10/15/22 20:00 94 Mechanical Ventilator 30 10/15/22 19:53 36.4 10/15/22 19:53 109 131/101 10/15/22 19:30 30 10/15/22 19:13 109 22 95 30 10/15/22 19:00 108 10/15/22 19:00 96 22 120/98 (105) 95 Mechanical Ventilator 30.00 10/15/22 18:00 98 21 127/94 (105) 95 Mechanical Ventilator 30.00 10/15/22 17:25 105 129/94 10/15/22 17:00 95 22 127/96 (106) 96 Mechanical Ventilator 30.00 10/15/22 16:17 36.3 10/15/22 16:17 Mechanical Ventilator 30.00 10/15/22 15:53 93 98/77 10/15/22 15:48 30 10/15/22 15:48 93 Mechanical Ventilator 50 10/15/22 15:48 Mechanical Ventilator 50.00 10/15/22 15:47 93 98/77 10/15/22 15:47 93 98/77 10/15/22 15:47 93 98/77 10/15/22 15:00 93 21 98/77 (84) 95 Mechanical Ventilator 30.00 10/15/22 14:43 89 22 96 30 10/15/22 14:00 98 22 99/71 (80) 96 Mechanical Ventilator 30.00 10/15/22 13:00 96 21 98/74 (82) 94 Mechanical Ventilator 30.00 10/15/22 13:00 106 10/15/22 12:58 95 Mechanical Ventilator 30 10/15/22 12:00 93 21 102/75 (84) 90 Mechanical Ventilator 30.00 10/15/22 11:59 98 108/73 10/15/22 11:55 98 108/73 10/15/22 11:43 36.4 10/15/22 11:30 30 10/15/22 11:24 98 108/73 10/15/22 11:00 98 22 108/73 (85) 91 Mechanical Ventilator 30.00 10/15/22 10:58 98 115/84 10/15/22 10:48 98 22 94 30 10/15/22 10:00 99 22 117/87 (97) 93 Mechanical Ventilator 30.00 10/15/22 09:00 92 23 115/83 (94) 96 Mechanical Ventilator 30.00 I & O 10/16/22 07:00 Intake Total 5057.5 ml Output Total 5350 ml Balance -292.5 ml Height & Weight Height: '" Weight: lbs. oz. kg; 37.65 BMI Method: General Appearance: Anxious, Moderate Distress HEENT: PERRL/EOMI, TMs Normal, Normal ENT Inspection, Pharynx Normal Neck: Full Range of Motion, Normal Inspection, Non Tender, Supple Respiratory: Chest Non Tender, Lungs Clear, Normal Breath Sounds, Rhonci Cardiovascular: No Edema, No JVD, Irregularly Irregular, Tachycardia Capillary Refill: Less Than 3 Seconds Gastrointestinal: normal bowel sounds, other (hypoactive BS) Extremity: Normal Capillary Refill, Normal Inspection, Normal Range of Motion, No Pedal Edema, Other (upper extrem edema but not lower) Neurologic/Psychiatric: Alert, Oriented x3, No Motor/Sensory Deficits; No Normal Mood/Affect; Other (sedated, not pulling on tubes) Skin: Normal Color, Warm/Dry Results Lab Laboratory Tests 10/15/22 03:45 10/16/22 04:25 Assessment/Plan Assessment/Plan as above Critical Care: Ventilator Management Time spent with patient (mins): 36 JUS JOSEPH MD Oct 16, 2022 08:38
--- NOTE | 2022-10-16 09:16 | Progress Note - Hospitalist ---
Subjective HPI/CC On Admission Date Seen by Provider: Oct 16, 2022 Time Seen by Provider: 08:45 Chief complaint: Respiratory failure HPI: This is a 42-year-old male known meth user who presented to the ER with shortness of breath was found to have atrial fibrillation with rapid ventricular response with congestive heart failure and ultimately required intubation. He was found to have meth in his pockets and the police were called and took that supply. Subjective/Events-last exam Patient sedated on ventilator no care problems reported per staff. Objective Exam Vital Signs Vital Signs Date Time Temp Pulse Resp B/P (MAP) Pulse Ox O2 Delivery O2 Flow Rate FiO2 10/16/22 08:20 95 Mechanical Ventilator 30 10/16/22 08:00 93 22 105/75 (85) 30.00 10/16/22 07:50 36.4 Capillary Refill : Less Than 3 Seconds General Appearance: No Apparent Distress Respiratory: Chest Non Tender, Lungs Clear, Normal Breath Sounds, No Accessory Muscle Use (On mechanical ventilation.), No Respiratory Distress Cardiovascular: Regular Rate, Rhythm, No Edema, No Gallop, No JVD, No Murmur, Normal Peripheral Pulses Gastrointestinal: Normal Bowel Sounds, No Organomegaly, Soft Extremity: Other ( 1 Plus edema of all extremities. extremities are warm no pallor) Results/Procedures Lab Laboratory Tests 10/16/22 04:25 Patient resulted labs reviewed. Assessment/Plan Assessment and Plan Assess & Plan/Chief Complaint Assessment & Plan: 10/12 Appreciate Cardiology recommendations. Initially receiving IV lasix 40 mg daily, stopped and given bumetanide yesterday. 10/15 continued on bumetanide 10/16 patient going on day 8 for mechanical ventilation for agitated behavior due to meth with delirium. Staff report that he has had similar admissions in the past and is usually not agitated after several days of ventilation. He has no history of respiratory failure nor was he ventilated for this reason. His chest x-ray is unremarkable and physical examination from a cardiac and pulmonary standpoint are unremarkable. He does have history of dilated cardiomyopathy with an ejection fraction of 35 to 40% on this hospital admission likely related to meth and/or alcohol there is no evidence for heart failure currently. He is ventilating easily with stable reasonable ABGs on 30% FiO2 and 5% PEEP we will plan on sedation vacation and extubation to follow as long as his behavior allows after discussion with nursing staff. (3) Hypotension Status: Acute Assessment & Plan: Worsening overnight 10/10-10/11, required norepinephrine, weaned back off at this time. (4) Respiratory failure Status: Acute Assessment & Plan: Requiring intubation in ER due to agitation and apnea. Appreciate Paula ICU vent management. Qualifiers: Qualified Codes: J96.01 - Acute respiratory failure with hypoxia (5) HFrEF (heart failure with reduced ejection fraction) Status: Chronic Assessment & Plan: Chronic, EF 40% in April 2022 (6) Persistent atrial fibrillation Status: Chronic Assessment & Plan: On enoxaparin treatment dose while NPO (7) NICM (nonischemic cardiomyopathy) Status: Chronic (8) Rhabdomyolysis Status: Acute Assessment & Plan: CK improved to normal since admission, but back up today. Difficult to manage given fluid overload suspected related to HF. 10/13 trended down 10/14 decreasing CK (9) Methamphetamine abuse Status: Chronic Assessment & Plan: Found to have methamphetamine on person while admitted. member services coordinator when alert. (10) Acute kidney injury Status: Resolved Assessment & Plan: Worsening renal function as of 10/11/22, suspect due to hypotension. Norepinephrine started for hypotension. 10/12- worsening, difficult management given fluid overload present 10/13- improved today, good urine output (11) Cardiomyopathy Status: Chronic Qualifiers: Qualified Codes: I42.9 - Cardiomyopathy, unspecified (12) HTN (hypertension) Status: Chronic (13) HLD (hyperlipidemia) Status: Chronic (14) DVT prophylaxis Status: Acute Assessment & Plan: enoxaparin Critical Care Ventilator Management Clinical Quality Measures AMI/AHF: ASA po Prior to arrival: JOHNNY Dee MD Oct 16, 2022 09:16
--- NOTE | 2022-10-16 10:39 | Cardiology Progress Note ---
Progress Note-Cardiology Events since last exam Date Seen by Provider: Oct 16, 2022 Time Seen by Provider: 10:34 Events since last exam We are following him due to heart failure and atrial fibrillation. He remains intubated in the ICU but is currently off sedation undergoing a weaning trial. He is awake and alert. He denies chest discomfort, dyspnea on the ventilator, palpitations, syncope, or ankle edema. Certain portions of this document may have been dictated utilizing voice recognition technology. Inherent to this technology, typographical and grammatical errors may exist. As much as I am diligent to identify and correct these mistakes, some errors may remain in the document. Vitals Last set of Vitals Signs Vital Signs 10/16/22 10/16/22 10/16/22 10/16/22 07:50 09:00 09:35 10:03 Temp 36.4 Pulse 93 Resp 28 B/P (MAP) 100/69 (79) Pulse Ox 94 O2 Delivery Mechanical Ventilator O2 Flow Rate 30.00 FiO2 30 Labs Labs Laboratory Tests 10/16/22 04:25 Exam Vital Signs Vital Signs Date Time Temp Pulse Resp B/P (MAP) Pulse Ox O2 Delivery O2 Flow Rate FiO2 10/16/22 10:03 93 28 94 10/16/22 09:35 30 10/16/22 09:00 100/69 (79) Mechanical Ventilator 30.00 10/16/22 07:50 36.4 Physical Exam General: Intubated but off sedation and awake. Well nourished and appears stated age. Eye: Conjunctivae are clear. There are no xanthelasma. HENT: Normocephalic. Atraumatic. Carotid pulsations 2/2 without bruits. Neck: Jugular venous pressure does not appear elevated. No thyromegaly appreciated. Respiratory: Symmetrical expansion bilaterally. Coarse breath sounds due to the ventilator. Cardiovascular: Normal rate. Irregular rhythm. Distant S1/S2. No murmur. No gallop. Point of maximal impulse is not appear displaced. Good pulses equal in all extremities. No edema. Gastrointestinal: Soft. Normal bowel sounds. Skin: Skin turgor is normal. There is no pallor. Musculoskeletal: No obvious deformities. Neurologic: Intubated but awake and communicating by nodding yes and no. Psychiatric: Cooperative. Labs Laboratory Tests Test 10/15/22 11:01 10/15/22 17:42 10/15/22 23:25 10/16/22 04:25 Range/Units Glucometer 118 H 107 123 H 70-110 MG/DL White Blood Count 12.2 H 4.3-11.0 10^3/uL Red Blood Count 4.80 4.30-5.52 10^6/uL Hemoglobin 13.3 13.3-17.7 g/dL Hematocrit 43 40-54 % Mean Corpuscular Volume 90 80-99 fL Mean Corpuscular Hemoglobin 28 25-34 pg Mean Corpuscular Hemoglobin Concent 31 L 32-36 g/dL Red Cell Distribution Width 19.9 H 10.0-14.5 % Platelet Count 228 130-400 10^3/uL Mean Platelet Volume 11.6 9.0-12.2 fL Immature Granulocyte % (Auto) 1 % Neutrophils (%) (Auto) 78 H 42-75 % Lymphocytes (%) (Auto) 10 L 12-44 % Monocytes (%) (Auto) 6 0-12 % Eosinophils (%) (Auto) 5 0-10 % Basophils (%) (Auto) 0 0-10 % Neutrophils # (Auto) 9.5 H 1.8-7.8 10^3/uL Lymphocytes # (Auto) 1.2 1.0-4.0 10^3/uL Monocytes # (Auto) 0.7 0.0-1.0 10^3/uL Eosinophils # (Auto) 0.6 H 0.0-0.3 10^3/uL Basophils # (Auto) 0.0 0.0-0.1 10^3/uL Immature Granulocyte # (Auto) 0.2 H 0.0-0.1 10^3/uL Sodium Level 145 135-145 MMOL/L Potassium Level 3.2 L 3.6-5.0 MMOL/L Chloride Level 111 H 98-107 MMOL/L Carbon Dioxide Level 23 21-32 MMOL/L Anion Gap 11 5-14 MMOL/L Blood Urea Nitrogen 17 7-18 MG/DL Creatinine 0.70 0.60-1.30 MG/DL Estimat Glomerular Filtration Rate 117 BUN/Creatinine Ratio 24 Glucose Level 111 H 70-105 MG/DL Calcium Level 9.0 8.5-10.1 MG/DL Corrected Calcium 9.8 8.5-10.1 MG/DL Phosphorus Level 2.6 2.3-4.7 MG/DL Magnesium Level 1.6 1.6-2.4 MG/DL Total Bilirubin 2.2 H 0.1-1.0 MG/DL Aspartate Amino Transf (AST/SGOT) 48 H 5-34 U/L Alanine Aminotransferase (ALT/SGPT) 24 0-55 U/L Alkaline Phosphatase 130 40-136 U/L Total Creatine Kinase 533 H 30-200 U/L Total Protein 6.7 6.4-8.2 GM/DL Albumin 3.0 L 3.2-4.5 GM/DL Test 10/16/22 04:50 Range/Units Blood Gas Puncture Site L RAD Blood Gas Patient Temperature 37 Arterial Blood pH 7.45 H 7.37-7.43 Arterial Blood Partial Pressure CO2 35 35-45 MMHG Arterial Blood Partial Pressure O2 66 L 79-93 MMHG Arterial Blood HCO3 24 23-27 MMOL/L Arterial Blood Total CO2 25.4 21.0-31.0 MMOL/L Arterial Blood Oxygen Saturation 96 94-100 % Arterial Blood Base Excess 0.7 -2.5-2.5 MMOL/L Michele Test YES-POS Blood Gas Ventilator Setting YES Blood Gas Inspired Oxygen 30% Diagnosis/Problems Diagnosis/Problems (1) Acute on chronic HFrEF (heart failure with reduced ejection fraction) Status: Acute Assessment & Plan: Symptomatically improving. He may be extubated later today. He is receiving IV bumetanide. He had been receiving IV NOLVIA inhibitor and bet a-ryan. I will change the beta-ryan back over to metoprolol succinate which she was taking at home. He should continue on spironolactone. He had not been on NOLVIA inhibitor, ARB or Entresto due to history of low blood pressures. (2) Persistent atrial fibrillation Status: Chronic Assessment & Plan: 's have been intermittently elevated. We will follow this closely when we change the IV beta-ryan back to oral. He had been receiving enoxaparin at therapeutic doses. I will change this back over to his home dose of rivaroxaban. (3) Cardiomyopathy Status: Chronic Assessment & Plan: Most likely nonischemic. We will attempt to resume his regular outpatient oral guideline directed medical therapy as tolerated by his blood pressure and respiratory status. (4) Pulmonary hypertension Status: Chronic Assessment & Plan: Most likely due to his chronic heart failure. This will need to be followed longitudinally. (5) Rhabdomyolysis Status: Acute Assessment & Plan: Etiology unclear. He walked into the ER CK levels are impro ving. (6) Methamphetamine abuse Status: Chronic Assessment & Plan: He had been sober for quite some time but unfortunately, has started using methamphetamine again. His toxicology screen was positive for amphetamine. Problem Qualifiers (1) Cardiomyopathy: Cardiomyopathy type: unspecified Qualified Codes: I42.9 - Cardiomyopathy, unspecified DONAVAN RODRIGUEZ JR, MD Oct 16, 2022 10:39
[2022-10-16 10:49] LABS: ABG BASE EXCESS -0.3 MMOL/L (-2.5-2.5); ABG OXYGEN SATURATION 97 % (94-100); ABG PCO2 40 MMHG (35-45); ABG PO2 83 MMHG (79-93); ABG TCO2 25.1 MMOL/L (21.0-31.0)
[2022-10-16 10:51] LABS: ALLENS TEST POSITIVE; INSPIRED O2 30%; PATIENT TEMP 37.1; VENTILATOR YES
[2022-10-16] MEDS: ONDANSETRON 4 MG/2 ML (SDV) Z0FRAN IV PRN (12:22)
[2022-10-16] MEDS: cefTRIAXone 1 GM PRE-MIX 50 ML IV SCH (12:22)
[2022-10-16] MEDS: HYDROmorphone 2 MG/ML VIAL (DILAUDID) IV PRN ×4 (12:23→23:46)
[2022-10-16] MEDS: D5 LR IV SOLUTION 1,000 ML IV SCH (16:07)
[2022-10-16] MEDS: RIVAROXABAN 20 MG TABLET (XARELTO) PO SCH (16:39)
[2022-10-16] MEDS ORDERED: LABETALOL HCL 20 MG/4 ML VIAL IV PRN (18:45)
[2022-10-16] MEDS: ONDANSETRON 4 MG (ZOFRAN) ORAL DISSOLVE TAB PO PRN (20:25)
[2022-10-17] MEDS: MELATONIN 3 MG TABLET PO PRN ×2 (00:16→20:05)
[2022-10-17] MEDS: D5 LR IV SOLUTION 1,000 ML IV SCH (02:10)
[2022-10-17] MEDS: RT-ALBUTEROL SULF 2.5 MG/3 ML PRE-MIX VIAL INH SCH ×6 (02:52→22:39)
[2022-10-17] MEDS: ONDANSETRON 4 MG (ZOFRAN) ORAL DISSOLVE TAB PO PRN (03:22)
[2022-10-17 05:11] LABS: BASOPHILS # (AUTO) 0.1 10^3/uL (0.0-0.1); BASOPHILS % (AUTO) 0 % (0-10); EOSINOPHILS # (AUTO) 0.3 10^3/uL (0.0-0.3); EOSINOPHILS % (AUTO) 2 % (0-10); HEMATOCRIT 41 % (40-54); HEMOGLOBIN 12.4 g/dL (13.3-17.7); LYMPHOCYTES % (AUTO) 7 % (12-44); MEAN CORPUSCULAR HEMOGLOBIN 28 pg (25-34); MEAN CORPUSCULAR HGB CONC 31 g/dL (32-36); MEAN CORPUSCULAR VOLUME 92 fL (80-99); MEAN PLATELET VOLUME 11.8 fL (9.0-12.2); MONOCYTES # (AUTO) 0.8 10^3/uL (0.0-1.0); MONOCYTES % (AUTO) 5 % (0-12); NEUTROPHILS # (AUTO) 12.2 10^3/uL (1.8-7.8); NEUTROPHILS % (AUTO) 84 % (42-75); PLATELET COUNT 262 10^3/uL (130-400); WHITE BLOOD COUNT 14.5 10^3/uL (4.3-11.0)
[2022-10-17] MEDS: HYDROmorphone 2 MG/ML VIAL (DILAUDID) IV PRN ×2 (05:11→13:21)
[2022-10-17 05:32] LABS: ALBUMIN 3.2 GM/DL (3.2-4.5); BILIRUBIN,TOTAL 3.2 MG/DL (0.1-1.0); CALCIUM 9.2 MG/DL (8.5-10.1); CREATININE SERUM 0.76 MG/DL (0.60-1.30); MAGNESIUM 1.6 MG/DL (1.6-2.4); PHOSPHORUS 3.3 MG/DL (2.3-4.7); POTASSIUM 3.4 MMOL/L (3.6-5.0); TOTAL PROTEIN 7.1 GM/DL (6.4-8.2)
[2022-10-17 05:34] LABS: LYMPHOCYTES % (MANUAL) 4 %; MONOCYTES % (MANUAL) 7 %; NEUTROPHILS % (MANUAL) 87 %
[2022-10-17 05:35] LABS: EOSINOPHILS % (MANUAL) 2 %; RBC MORPH NORMAL
[2022-10-17] MEDS: KCL 20 MEQ TAB (K-DUR) PO SCH (05:59)
[2022-10-17] MEDS: NOREPINEPHRINE 8 MG/250 ML 250 ML IV SCH ×3 (05:59→22:56)
[2022-10-17] MEDS: MAGNESIUM 1 GM/100 ML IVPB 100 ML IV SCH ×4 (06:31→10:13)
--- NOTE | 2022-10-17 07:30 | Tele-ICU Progress Note ---
Subjective Date Seen by a Provider: Oct 17, 2022 Time Seen by a Provider: 10:45 Subjective/Events-last exam Available chart/ vitals / labs / Images reviewed H&P is from ER notes Patient's information available about PMH, allergy reviewed in EMR. ROS as per chart and RN report Video assessment done using teleICU camera, rest of exam as per RN Discussed with RN. This gentleman with a past medical history of for decreased ejection fraction, atrial fibrillation with rapid ventricular rate, methamphetamine and alcohol abuse presented to the emergency room with a complaint of chest pain and he is found to have a twitchings, picking at skin and rolling around the bed continuously. As he appears to be in a withdrawal state he is intubated and put on mechanical ventilation. He is started on diltiazem drip and admitted to the intensive care unit. Further details not available. 10/09/22. He is agitated on and off requring to increase sedation. urine is some what pinkinsh. 10/11/22 pt remaine on vent. BP is some what low and getting Low dose levophed. Picc line being inserted. CXR shows cardiomegaly and pulmonary congestive changes. Picc line in place 10/12/22 PT'S et tube cuff broke yesterday needing to replace ET tube. Now ET in good place. CXR showing [place]. Infiltrates suggestive of pulmonary edema. However pneumonia can not be ruled out. 10/13/22 pt remained on vent and sedated. he responded well to bumex and he will receive again. sputum gre staph aureus and probable hemophilus . started on va ncomycin and cefepime. 10/14/22 HE IS ON THE VENT ,SEDATED. CXR SHOWING CONTINUED PULMONARY CONGESTIVE CHANGES. INCRESED BUMEX 2 MG IV Q 12HRS. 10/16/2022today he is doing better, tried on sbt and passed. he is subsequently extubated and tolerating with 2 l N/C. no distress. diuressing well. low k rep laced. 10/17/2022. awake, alert. no respiratory distress. diuressing well. Impression 1. Acute hypoxic respiratory failure requiring intubation and mechanical ventilation improved. Extubated on 10/16/2022. tolerating well. 2. Chest pain with elevated troponin rule out non-STEMI, per cardiology 3. Atrial fibrillation with rapid ventricular rate. Now rate controlled. 4. Acute on chronic systolic congestive heart failure improving 5. Acute and chronic methamphetamine abuse. 6. gram positive and gram negative pneumonia 7. monitor for hematuria Recommendations 1. He is extubated on 10/16/22 and tolerating well 2. Diltiazem drip per cardiology 3. DVT prophylaxis and ulcer prophylaxis 4. Monitor for withdrawal symptoms and sedate accordingly. 5. will continue levophed and give bumex 2 mg iv 12 hrs and see the response.. if necessary will up titrate levophed. 6. continue iv vancomycin and ceftriaxone. 7. will reat cxr in am Plans in coordination with consultants and bedside primary MDs. Reviewed with [employer]. Sepsis Event Evaluation Height, Weight, BMI Height: '" Weight: lbs. oz. kg; 37.65 BMI Method: Exam Exam Patient acknowledged, consented, and participated in this virtual visit which was conducted using real time audio/video Vital Signs Date Time Temp Pulse Resp B/P (MAP) Pulse Ox O2 Delivery O2 Flow Rate FiO2 10/17/22 07:09 97 Nasal Cannula 2.00 10/17/22 06:00 105 23 117/88 (98) 97 Room Air 10/17/22 05:00 124 27 128/93 (105) 99 Room Air 10/17/22 04:00 36.2 114 18 126/91 (103) 98 Room Air 10/17/22 04:00 Room Air 2.00 10/17/22 03:00 114 26 128/94 (105) 99 Nasal Cannula 2.00 10/17/22 02:00 121 14 129/87 (101) 96 Nasal Cannula 2.00 10/17/22 01:00 129 10/17/22 01:00 131 22 111/94 (100) 96 Nasal Cannula 2.00 10/17/22 00:00 Room Air 2.00 10/17/22 00:00 130 16 127/90 (102) 97 Nasal Cannula 2.00 10/16/22 23:02 98 Nasal Cannula 2.00 10/16/22 23:00 126 15 131/97 (108) 99 Nasal Cannula 2.00 10/16/22 22:00 118 16 123/87 (99) 98 Nasal Cannula 2.00 10/16/22 21:00 112 19 132/96 (108) 98 Nasal Cannula 2.00 10/16/22 20:26 37.2 10/16/22 20:00 36.5 10/16/22 20:00 124 17 115/92 (100) 98 Nasal Cannula 2.00 10/16/22 19:45 Room Air 2.00 10/16/22 19:32 98 Nasal Cannula 2.00 10/16/22 19:00 121 25 115/97 (103) 97 Nasal Cannula 2.00 10/16/22 19:00 124 10/16/22 18:00 129 16 160/105 (123) 97 Nasal Cannula 2.00 10/16/22 17:00 121 19 130/102 (111) 97 Nasal Cannula 2.00 10/16/22 16:09 36.5 10/16/22 16:00 110 19 134/94 (107) 97 Nasal Cannula 2.00 10/16/22 16:00 95 Nasal Cannula 2.00 10/16/22 15:23 36.4 107 95 10/16/22 15:16 95 Nasal Cannula 2.00 10/16/22 15:00 114 18 123/89 (100) 95 Nasal Cannula 2.00 10/16/22 14:00 107 22 125/101 (109) 97 Nasal Cannula 2.00 10/16/22 13:00 101 17 123/80 (94) 98 Nasal Cannula 2.00 10/16/22 13:00 98 10/16/22 12:00 94 Nasal Cannula 2.00 10/16/22 12:00 93 20 113/82 (92) 100 Nasal Cannula 2.00 10/16/22 11:05 93 Nasal Cannula 2.00 10/16/22 11:05 Nasal Cannula 2.00 10/16/22 11:00 86 10 107/77 (87) 99 Mechanical Ventilator 30.00 10/16/22 10:52 86 25 98 10/16/22 10:03 93 28 94 10/16/22 10:00 85 26 105/71 (82) 98 Mechanical Ventilator 30.00 10/16/22 09:36 85 30 96 10/16/22 09:35 88 22 96 30 10/16/22 09:00 90 22 100/69 (79) 95 Mechanical Ventilator 30.00 10/16/22 08:20 95 Mechanical Ventilator 30 10/16/22 08:00 93 22 105/75 (85) 95 Mechanical Ventilator 30.00 10/16/22 07:50 36.4 10/16/22 07:34 82 22 96 30 10/16/22 07:30 30 I & O 10/17/22 07:00 Intake Total 2794.5 ml Output Total 3600 ml Balance -805.5 ml Height & Weight Height: '" Weight: lbs. oz. kg; 37.65 BMI Method: General Appearance: Anxious, Moderate Distress HEENT: PERRL/EOMI, TMs Normal, Normal ENT Inspection, Pharynx Normal Neck: Full Range of Motion, Normal Inspection, Non Tender, Supple Respiratory: Chest Non Tender, Lungs Clear, Normal Breath Sounds, Rhonci Cardiovascular: No Edema, No JVD, Irregularly Irregular, Tachycardia Capillary Refill: Less Than 3 Seconds Gastrointestinal: normal bowel sounds, other (hypoactive BS) Extremity: Normal Capillary Refill, Normal Inspection, Normal Range of Motion, No Pedal Edema, Other (upper extrem edema but not lower) Neurologic/Psychiatric: Alert, Oriented x3, No Motor/Sensory Deficits; No Normal Mood/Affect; Other (sedated, not pulling on tubes) Skin: Normal Color, Warm/Dry Results Lab Laboratory Tests 10/16/22 04:25 10/17/22 05:00 Assessment/Plan Assessment/Plan as above Critical Care: Critically Ill Patient Time spent with patient (mins): 25 JUS JOSEPH MD Oct 17, 2022 07:30
[2022-10-17] MEDS: POTASSIUM CL 10MEQ/50ML IVPB 50 ML IV SCH (08:08)
[2022-10-17] MEDS ORDERED: KCL 20 MEQ TAB (K-DUR) PO ONE (08:15)
[2022-10-17] MEDS: PANTOPRAZOLE 40 MG (PROTONIX) VIAL IV SCH (08:22)
[2022-10-17] MEDS: polyethylene glycoL POWDER 17 GM (MIRALAX) PACK PO PRN (08:22)
[2022-10-17] MEDS: SPIRONOLACTONE 25 MG (ALDACTONE) TAB NG SCH (08:22)
[2022-10-17] MEDS: VANCOMYCIN 1,750 MG/NS 500 ML IVPB IV SCH ×4 (08:22→20:04)
[2022-10-17] MEDS: DOCUSATE SODIUM 100 MG (COLACE) CAP PO SCH ×2 (08:39→20:05)
--- NOTE | 2022-10-17 09:17 | Cardiology Progress Note ---
Progress Note-Cardiology Events since last exam Date Seen by Provider: Oct 17, 2022 Time Seen by Provider: 09:11 Events since last exam We are following him due to heart failure and atrial fibrillation. He was ex tubated on 10/16. He did well overnight. This morning he was sitting up in bed eating breakfast. He does not recall any of the events leading to his hospitalization. He feels slightly short of breath at rest. He denies chest discomfort, palpitations, syncope, or ankle edema. Certain portions of this document may have been dictated utilizing voice recognition technology. Inherent to this technology, typographical and grammatical errors may exist. As much as I am diligent to identify and correct these mistakes, some errors may remain in the document. Vitals Last set of Vitals Signs Vital Signs 10/16/22 10/17/22 10/17/22 10/17/22 09:35 07:09 07:59 09:00 Temp 36.7 Pulse 125 Resp 13 B/P (MAP) 131/97 (108) Pulse Ox 98 O2 Delivery Room Air O2 Flow Rate 2.00 FiO2 30 Labs Labs Laboratory Tests 10/17/22 05:00 Exam Vital Signs Vital Signs Date Time Temp Pulse Resp B/P (MAP) Pulse Ox O2 Delivery O2 Flow Rate FiO2 10/17/22 09:00 125 13 131/97 (108) 98 Room Air 10/17/22 07:59 36.7 10/17/22 07:09 2.00 10/16/22 09:35 30 Physical Exam General: Alert. No acute distress. Eye: No xanthelasma. HENT: Normocephalic. Neck: Jugular venous pressure does not appear elevated. Respiratory: Lungs are clear to auscultation. Respirations are non-labored. Breath sounds are equal. Symmetrical chest wall expansion. Cardiovascular: Tachycardia with irregular rhythm. No murmur. No gallop. No e shantal. Gastrointestinal: Soft. Normal bowel sounds. Skin: Warm. Dry. Neurologic: Alert and oriented to person, place, time. Cranial nerves 3-11 grossly intact. Psychiatric: Cooperative. Appropriate mood & affect. Labs Laboratory Tests Test 10/16/22 10:40 10/16/22 11:52 10/16/22 17:24 10/17/22 05:00 Range/Units Blood Gas Puncture Site RIGHT RADIAL Blood Gas Patient Temperature 37.1 Arterial Blood pH 7.40 7.37-7.43 Arterial Blood Partial Pressure CO2 40 35-45 MMHG Arterial Blood Partial Pressure O2 83 79-93 MMHG Arterial Blood HCO3 24 23-27 MMOL/L Arterial Blood Total CO2 25.1 21.0-31.0 MMOL/L Arterial Blood Oxygen Saturation 97 94-100 % Arterial Blood Base Excess -0.3 -2.5-2.5 MMOL/L Michele Test POSITIVE Blood Gas Ventilator Setting YES Blood Gas Inspired Oxygen 30% Glucometer 116 H 109 70-110 MG/DL White Blood Count 14.5 H 4.3-11.0 10^3/uL Red Blood Count 4.45 4.30-5.52 10^6/uL Hemoglobin 12.4 L 13.3-17.7 g/dL Hematocrit 41 40-54 % Mean Corpuscular Volume 92 80-99 fL Mean Corpuscular Hemoglobin 28 25-34 pg Mean Corpuscular Hemoglobin Concent 31 L 32-36 g/dL Red Cell Distribution Width 20.2 H 10.0-14.5 % Platelet Count 262 130-400 10^3/uL Mean Platelet Volume 11.8 9.0-12.2 fL Immature Granulocyte % (Auto) 1 % Neutrophils (%) (Auto) 84 H 42-75 % Lymphocytes (%) (Auto) 7 L 12-44 % Monocytes (%) (Auto) 5 0-12 % Eosinophils (%) (Auto) 2 0-10 % Basophils (%) (Auto) 0 0-10 % Neutrophils # (Auto) 12.2 H 1.8-7.8 10^3/uL Lymphocytes # (Auto) 1.0 1.0-4.0 10^3/uL Monocytes # (Auto) 0.8 0.0-1.0 10^3/uL Eosinophils # (Auto) 0.3 0.0-0.3 10^3/uL Basophils # (Auto) 0.1 0.0-0.1 10^3/uL Immature Granulocyte # (Auto) 0.2 H 0.0-0.1 10^3/uL Neutrophils % (Manual) 87 % Lymphocytes % (Manual) 4 % Monocytes % (Manual) 7 % Eosinophils % (Manual) 2 % Blood Morphology Comment NORMAL Sodium Level 142 135-145 MMOL/L Potassium Level 3.4 L 3.6-5.0 MMOL/L Chloride Level 107 98-107 MMOL/L Carbon Dioxide Level 24 21-32 MMOL/L Anion Gap 11 5-14 MMOL/L Blood Urea Nitrogen 17 7-18 MG/DL Creatinine 0.76 0.60-1.30 MG/DL Estimat Glomerular Filtration Rate 114 BUN/Creatinine Ratio 22 Glucose Level 130 H 70-105 MG/DL Calcium Level 9.2 8.5-10.1 MG/DL Corrected Calcium 9.8 8.5-10.1 MG/DL Phosphorus Level 3.3 2.3-4.7 MG/DL Magnesium Level 1.6 1.6-2.4 MG/DL Total Bilirubin 3.2 H 0.1-1.0 MG/DL Aspartate Amino Transf (AST/SGOT) 49 H 5-34 U/L Alanine Aminotransferase (ALT/SGPT) 28 0-55 U/L Alkaline Phosphatase 141 H 40-136 U/L Total Creatine Kinase 570 H 30-200 U/L Total Protein 7.1 6.4-8.2 GM/DL Albumin 3.2 3.2-4.5 GM/DL Diagnosis/Problems Diagnosis/Problems (1) Acute on chronic HFrEF (heart failure with reduced ejection fraction) Status: Acute Assessment & Plan: Symptomatically improving. He was extubated on 10/16. He had mainly been intubated for airway protection due to methamphetamine intoxication at the time of admission. He is receiving IV bumetanide. He had been receiving IV NOLVIA inhibitor and beta-ryan. I changed the beta-ryan back over to metoprolol succinate on 10/17 which he was taking at home. He should continue on spironolactone. He had not been on NOLVIA inhibitor, ARB or Entresto due to history of low blood pressures. (2) Persistent atrial fibrillation Status: Chronic Assessment & Plan: Heart rates have been intermittently elevated. We will follow this closely now that he is back on oral metoprolol succinate. If his heart rates remain elevated, we may need to increase the dose of metoprolol. He had been receiving enoxaparin at therapeutic doses. I changed this back over to his home dose of rivaroxaban on 10/16. (3) Cardiomyopathy Status: Chronic Assessment & Plan: Most likely nonischemic. We will attempt to resume his regular outpatient oral guideline directed medical therapy as tolerated by his blood pressure and respiratory status. (4) Pulmonary hypertension Status: Chronic Assessment & Plan: Most likely due to his chronic heart failure. This will need to be followed longitudinally. (5) Rhabdomyolysis Status: Acute Assessment & Plan: Etiology unclear. He walked into the ER and as far as we know he had not been down on the floor for a significant amount of time. His CK levels have improved but are still elevated. (6) Methamphetamine abuse Status: Chronic Assessment & Plan: He had been sober for quite some time but unfortunately, has started using methamphetamine again. His toxicology screen was positive for amphetamine. He needs to be encouraged to be abstinent from all illicit substances. Problem Qualifiers (1) Cardiomyopathy: Cardiomyopathy type: unspecified Qualified Codes: I42.9 - Cardiomyopathy, unspecified DONAVAN RODRIGUEZ JR, MD Oct 17, 2022 09:17
--- NOTE | 2022-10-17 09:26 | Progress Note - Hospitalist ---
Subjective HPI/CC On Admission Date Seen by Provider: Oct 17, 2022 Time Seen by Provider: 09:00 Chief complaint: Respiratory failure HPI: This is a 42-year-old male known meth user who presented to the ER with shortness of breath was found to have atrial fibrillation with rapid ventricular response with congestive heart failure and ultimately required intubation. He was found to have meth in his pockets and the police were called and took that supply. Subjective/Events-last exam Patient extubated without difficulty yesterday. No agitated behavior. Patient is remorseful stating that he will not be using meth again. He is most concerned about anxiety and not being able to sleep at night asking for a strong sleep medication and something for anxiety during the day. He denies shortness of breath or cough and reports that he is hungry asking about being advanced to regular breakfast. Staff report he is tolerating liquids without difficulty and no cough. Objective Exam Vital Signs Vital Signs Date Time Temp Pulse Resp B/P (MAP) Pulse Ox O2 Delivery O2 Flow Rate FiO2 10/17/22 09:00 125 13 131/97 (108) 98 Room Air 10/17/22 07:59 36.7 10/17/22 07:09 2.00 10/16/22 09:35 30 Capillary Refill : Less Than 3 Seconds General Appearance: No Apparent Distress Respiratory: No Accessory Muscle Use, No Respiratory Distress, Other (Despite findings for reported diffuse infiltrates on chest x-ray chest sound surprisingly clear there are no wheezing no rhonchi.) Cardiovascular: No Murmur, Irregularly Irregular Gastrointestinal: Normal Bowel Sounds, No Organomegaly, No Pulsatile Mass, Non Tender, Soft Results/Procedures Lab Laboratory Tests 10/17/22 05:00 Patient resulted labs reviewed. Assessment/Plan Assessment and Plan Assess & Plan/Chief Complaint Assessment & Plan: 10/12 Appreciate Cardiology recommendations. Initially receiving IV lasix 40 mg daily, stopped and given bumetanide yesterday. 10/15 continued on bumetanide 10/16 patient going on day 8 for mechanical ventilation for agitated behavior due to meth with delirium. Staff report that he has had similar admissions in the past and is usually not agitated after several days of ventilation. He has no history of respiratory failure nor was he ventilated for this reason. His chest x-ray is unremarkable and physical examination from a cardiac and pulmonary standpoint are unremarkable. He does have history of dilated cardiomyopathy with an ejection fraction of 35 to 40% on this hospital admission likely related to meth and/or alcohol there is no evidence for heart failure currently. He is ventilating easily with stable reasonable ABGs on 30% FiO2 and 5% PEEP we will plan on sedation vacation and extubation to follow as long as his behavior allows after discussion with nursing staff. 10/17: Patient extubated without difficulty alert oriented anxious but in no acute distress. 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 He voices understanding that meth is killing him and tells this examiner any way that he is through with use. He apparently has support through a local halfway that he plans on going back to. Off mechanical ventilation A. fib rate has increased will defer to cardiology about oral therapy for rate control likely beta-ryan in etiology. The patient does exhibit evidence for significant deconditioning. We will have him sit up on the edge of the bed if he is able to ambulate to the commode nursing staff been instructed to discontinue his Locke if there is a bed on the floor pending cardiology evaluation and A. fib medica tion can be transferred to the floor. (3) Hypotension Status: Acute Assessment & Plan: Worsening overnight 10/10-10/11, required norepinephrine, weaned back off at this time. (4) Respiratory failure Status: Acute Assessment & Plan: Requiring intubation in ER due to agitation and apnea. Appreciate [facility] ICU vent management. Qualifiers: Qualified Codes: J96.01 - Acute respiratory failure with hypoxia (5) HFrEF (heart failure with reduced ejection fraction) Status: Chronic Assessment & Plan: Chronic, EF 40% in April 2022 (6) Persistent atrial fibrillation Status: Chronic Assessment & Plan: On enoxaparin treatment dose while NPO (7) NICM (nonischemic cardiomyopathy) Status: Chronic (8) Rhabdomyolysis Status: Acute Assessment & Plan: CK improved to normal since admission, but back up today. Difficult to manage given fluid overload suspected related to HF. 10/13 trended down 10/14 decreasing CK (9) Methamphetamine abuse Status: Chronic Assessment & Plan: Found to have methamphetamine on person while admitted. medical services manager when alert. (10) Acute kidney injury Status: Resolved Assessment & Plan: Worsening renal function as of 10/11/22, suspect due to hypotension. Norepinephrine started for hypotension. 10/12- worsening, difficult management given fluid overload present 10/13- improved today, good urine output (11) Cardiomyopathy Status: Chronic Qualifiers: Qualified Codes: I42.9 - Cardiomyopathy, unspecified (12) HTN (hypertension) Status: Chronic (13) HLD (hyperlipidemia) Status: Chronic (14) DVT prophylaxis Status: Acute Assessment & Plan: enoxaparin Critical Care Critically Ill Patient Clinical Quality Measures AMI/AHF: ASA po Prior to arrival: JOHNNY Dee MD Oct 17, 2022 09:26
[2022-10-17] MEDS: FUROSEMIDE 40 MG (LASIX) TAB PO SCH (10:09)
[2022-10-17] MEDS: ONDANSETRON 4 MG/2 ML (SDV) Z0FRAN IV PRN ×2 (10:09→16:06)
[2022-10-17] MEDS: LORazepam 1 MG (ATIVAN) TAB PO SCH ×2 (10:09→20:04)
[2022-10-17] MEDS: cefTRIAXone 1 GM PRE-MIX 50 ML IV SCH (12:50)
[2022-10-17] MEDS: RIVAROXABAN 20 MG TABLET (XARELTO) PO SCH (16:02)
[2022-10-18] MEDS: RT-ALBUTEROL SULF 2.5 MG/3 ML PRE-MIX VIAL INH SCH (02:08)
[2022-10-18 03:04] LABS: BASOPHILS # (AUTO) 0.1 10^3/uL (0.0-0.1); BASOPHILS % (AUTO) 0 % (0-10); EOSINOPHILS # (AUTO) 0.5 10^3/uL (0.0-0.3); EOSINOPHILS % (AUTO) 3 % (0-10); HEMATOCRIT 42 % (40-54); HEMOGLOBIN 12.9 g/dL (13.3-17.7); LYMPHOCYTES # (AUTO) 1.2 10^3/uL (1.0-4.0); LYMPHOCYTES % (AUTO) 8 % (12-44); MEAN CORPUSCULAR HEMOGLOBIN 28 pg (25-34); MEAN CORPUSCULAR HGB CONC 31 g/dL (32-36); MEAN CORPUSCULAR VOLUME 91 fL (80-99); MEAN PLATELET VOLUME 11.9 fL (9.0-12.2); MONOCYTES # (AUTO) 0.8 10^3/uL (0.0-1.0); MONOCYTES % (AUTO) 6 % (0-12); NEUTROPHILS # (AUTO) 11.2 10^3/uL (1.8-7.8); NEUTROPHILS % (AUTO) 81 % (42-75); PLATELET COUNT 284 10^3/uL (130-400); WHITE BLOOD COUNT 13.9 10^3/uL (4.3-11.0)
[2022-10-18 03:16] LABS: ALBUMIN 3.3 GM/DL (3.2-4.5); POTASSIUM 3.8 MMOL/L (3.6-5.0)
[2022-10-18 03:17] LABS: CALCIUM 9.2 MG/DL (8.5-10.1)
[2022-10-18 03:19] LABS: TOTAL PROTEIN 7.1 GM/DL (6.4-8.2)
[2022-10-18 03:21] LABS: BILIRUBIN,TOTAL 2.7 MG/DL (0.1-1.0)
[2022-10-18 03:22] LABS: CREATININE SERUM 0.72 MG/DL (0.60-1.30); PHOSPHORUS 2.2 MG/DL (2.3-4.7)
[2022-10-18 03:25] LABS: MAGNESIUM 1.8 MG/DL (1.6-2.4)
[2022-10-18] MEDS: KCL 20 MEQ TAB (K-DUR) PO SCH (03:36)
[2022-10-18] MEDS: POTASSIUM CL 10MEQ/50ML IVPB 50 ML IV SCH (03:36)
[2022-10-18] MEDS: MAGNESIUM 1 GM/100 ML IVPB 100 ML IV SCH (03:36)
[2022-10-18 06:27] VITALS: BP 121/96
[2022-10-18] MEDS: DOCUSATE SODIUM 100 MG (COLACE) CAP PO SCH ×2 (07:59→20:56)
[2022-10-18] MEDS: LORazepam 1 MG (ATIVAN) TAB PO SCH ×2 (07:59→20:56)
[2022-10-18] MEDS: PANTOPRAZOLE 40 MG (PROTONIX) VIAL IV SCH (07:59)
[2022-10-18] MEDS: FUROSEMIDE 40 MG (LASIX) TAB PO SCH ×2 (07:59→09:00)
[2022-10-18] MEDS ORDERED: RT-ALBUTEROL SULF 2.5 MG/3 ML PRE-MIX VIAL INH SCH (08:00)
[2022-10-18] MEDS: SPIRONOLACTONE 25 MG (ALDACTONE) TAB NG SCH (08:00)
[2022-10-18] MEDS: VANCOMYCIN 1,750 MG/NS 500 ML IVPB IV SCH ×2 (08:00)
--- NOTE | 2022-10-18 08:10 | Diagnostic Imaging Report ---
INDICATION: Pneumonia AP view of the chest is obtained with comparison made to the study of 10/16/2022. Endotracheal tube has been discontinued. There is continued pulmonary venous congestion and increased density in the perihilar regions. No pneumothorax is identified. There is no evidence of significant pleural fluid. Right upper extremity PICC reaches the right atrium. IMPRESSION: Continued pulmonary venous congestion and probable central pulmonary edema post extubation. Dictated by: Dictated on workstation # [id number]
--- NOTE | 2022-10-18 08:15 | Progress Note - Cardiology ---
Cardiology SOAP Progress Note Objective: I&O/Vital Signs 10/18/22 10/18/22 10/18/22 10/18/22 05:00 06:00 06:27 06:55 Pulse 114 101 137 Resp 18 24 B/P (MAP) 129/94 (106) 128/94 (105) Pulse Ox 99 97 99 O2 Delivery Nasal Cannula Nasal Cannula Room Air O2 Flow Rate 2.00 2.00 10/18/22 10/18/22 10/18/22 10/18/22 07:00 07:13 07:58 08:00 Temp 36.0 Pulse 123 133 114 Resp 9 28 B/P (MAP) 136/82 (100) 140/103 (115) Pulse Ox 93 90 O2 Delivery Room Air Room Air 10/18/22 10/18/22 10/18/22 10/18/22 08:08 09:00 10:00 11:00 Pulse 121 113 129 Resp 17 21 31 B/P (MAP) 127/107 (114) 126/95 (105) 133/97 (109) Pulse Ox 90 90 90 91 O2 Delivery Room Air Room Air Room Air Room Air 10/18/22 10/18/22 12:00 13:23 Pulse 126 130 Resp 16 B/P (MAP) 123/91 (102) Pulse Ox 93 O2 Delivery Room Air 10/18/22 00:00 Intake Total 2759.7 ml Output Total 600 ml Balance 2159.7 ml Constitutional: AAO x 3 Respiratory: other (diminshed lower lobes bilat) Cardiovascular: irregularly irregular, S1 and S2 Gastrointestional: audible bowel sounds Extremities: other (mod bilat LE swelling) Neurologic/Psychiatric: grossly intact (moves all extremities) Skin: No rash on exposed areas, No ulcerations on exposed areas Results/Procedures: Labs Laboratory Tests 10/18/22 02:51: White Blood Count 13.9H, Red Blood Count 4.57, Hemoglobin 12.9L, Hematocrit 42, Mean Corpuscular Volume 91, Mean Corpuscular Hemoglobin 28, Mean Corpuscular Hemoglobin Concent 31L, Red Cell Distribution Width 19.9H, Platelet Count 284, Mean Platelet Volume 11.9, Immature Granulocyte % (Auto) 1, Neutrophils (%) (Auto) 81H, Lymphocytes (%) (Auto) 8L, Monocytes (%) (Auto) 6, Eosinophils (%) (Auto) 3, Basophils (%) (Auto) 0, Neutrophils # (Auto) 11.2H, Lymphocytes # (Auto) 1.2, Monocytes # (Auto) 0.8, Eosinophils # (Auto) 0.5H, Basophils # (Auto) 0.1, Immature Granulocyte # (Auto) 0.2H, Sodium Level 139, Potassium Level 3.8, Chloride Level 104, Carbon Dioxide Level 24, Anion Gap 11, Blood Urea Nitrogen 15, Creatinine 0.72, Estimat Glomerular Filtration Rate 116, BUN/Creatinine Ratio 21, Glucose Level 111H, Calcium Level 9.2, Corrected Calcium 9.8, Phosphorus Level 2.2L, Magnesium Level 1.8, Total Bilirubin 2.7H, Aspartate Amino Transf (AST/SGOT) 46H, Alanine Aminotransferase (ALT/SGPT) 33, Alkaline Phosphatase 161H, Total Creatine Kinase 339H, Total Protein 7.1, Albumin 3.3 Microbiology 10/12/22 Gram Stain - Final, Complete 10/12/22 Sputum Culture - Final, Complete Usual upper respiratory travis Staphylococcus aureus Haemophilus influenza A/P: Assessment: Acute respiratory failure requiring intubation - extubated 10-16-22 - multi-factorial d/t pneumonia and acute on chronic systolic CHF Acute on chronic systolic congestive heart failure - Echo was done in April 2022 with ejection fraction 40 to 45% with biatrial enlargement, moderate mitral regurgitation, pulmonary artery pressure 45 to 50 mmHg. - Echo of 10-11-[address] Hernandez showed LVEF 35-40%. Mod sized L pleural effusion. Mild MR. Mild to mod TR. Persistent/permanent atrial fibrillation/flutter - History of ablation done in [place] in late 2020, previously refusing any further ablation - Had been maintained on Eliquis (unsure of compliance) - changed to Xarelto this admission Nonischemic cardiomyopathy - cardiac catheterization done in [place] around 2019 did not show any obstructive disease. History of methamphetamine abuse. - Still using it intermittently, he was found to have methamphetamine in his pocket during this hospitalization EtOH abuse. Acute renal failure - renal function improved Hyperlipidemia Tobaccoism History of noncompliance with medication or medical instruction History of elevated liver enzymes. Probably underlying cirrhosis seen on CTA of the abdomen in the past. Plan: Complex management issue d/t issues noted above along with non-compliance, EtOH abuse, and continuing meth abuse Continue diuretics Increase BB and re-start low dose NOLVIA - titrate as BP and HR allows Restart Aldactone Add SGLT2-inhibitors Monitor lab closely Replace electrolytes Xarelto for stroke stroke prophylaxis Clinical Quality Measures AMI/AHF: ASA po Prior to arrival: ANN Correa Oct 18, 2022 08:15
--- NOTE | 2022-10-18 08:29 | Occ Therapy Progress Note ---
Therapy Progress Note Pt. has been intubated since 10-09-22. Pt. was extubated on 10-16-22. Will hold until new orders are sent when pt. is deemed medically stable. 0830 KIM HERNANDEZ OT Oct 18, 2022 08:29
[2022-10-18] MEDS: PANTOPRAZOLE 40 MG (PROTONIX) TAB PO SCH (09:00)
[2022-10-18] MEDS: EMPAGLIFLOZIN 10 MG TABLET (JARDIANCE) PO SCH ×2 (09:00→10:25)
[2022-10-18] MEDS ORDERED: LORazepam INJ 2 MG/ML (ATIVAN) VIAL IVP PRN ×2 (09:00→09:15)
[2022-10-18] MEDS: SPIRONOLACTONE 25 MG (ALDACTONE) TAB PO SCH (09:00)
--- NOTE | 2022-10-18 09:45 | Occupational Therapy Eval ---
OT Evaluation-General/PLF Medical Diagnosis Admission Date Oct 08, 2022 at 15:15 Medical Diagnosis: Resp fail, A-fib, CHF Onset Date: Oct 08, 2022 Therapy Diagnosis Therapy Diagnosis: Weakness, Decreased ADL skills Precautions Precautions/Isolations: Fall Prevention, Standard Precautions Weight Bear Status Weight Bearing Restriction: Weight Bearing/Tolerated Referral Physician: Dr. Parsons Referral Reason: Activity Tolerance, Self Care, Evaluation/Treatment, Strengthening/ROM Medical History Pertinent Medical History: Atrial Fib, Alcoholism, HTN, Smoking Additional Medical History Meth use, ETOH use, hernia repair, rhabdomyolysis Current History Pt. came to hospital on 10-08-23. Pt. was in respiratory failure and had to be intubated. Pt. was extubated on 10-16-22. Pt's noted ejection fraction i9s 40- 45%. Reviewed History: Yes ADL-Prior Level of Function SCALE: Activities may be completed with or without assistive devices. 7-Akvwrfwcft-igrdcnn completes the activity by him/herself with no assistance from a helper. 5-Set-up or Clean-up Assistance-helper sets up or cleans up; patient completes activity. [place] assists only prior to or following the activity. 4-Supervision or Touching Assistance-helper provides verbal cues and/or touching/steadying and/or contact guard assistance as patient completes activity. Assistance may be provided throughout the activity or intermittently. 3-Partial/Moderate Assistance-helper does LESS THAN HALF the effort. [place] lifts, holds or supports trunk or limbs, but provides less than half the effort. 2-Substantial/Maximal Assistance-helper does MORE THAN HALF the effort. [place] lifts or holds trunk or limbs and provides more than half the effort. 9-Eevcpdsga-nvxkfi does ALL the effort. Patient does none of the effort to complete the activity. Or, the assistance of 2 or more helpers is required for the patient to complete the activity. If activity was not attempted, code reason: 7-Patient Refused. 9-Not Applicable-not attempted and the patient did not perform the activity before the current illness, exacerbation or injury. 10-Not Attempted due to Environmental Limitations-(lack of equipment, weather restraints, etc.). 88-Not Attempted due to Medical Conditions or Safety Concerns. ADL PLOF Comments Pt. is able to indicate that he was independent prior to this hospitalization. Self Care: Independent Functional Cognition: Unknown OT Current Status Subjective Pt. is very groggy. He requires cues to keep his eyes open. He is able to state that his IV hurts. He indicates that he wants to go back to bed. Appearance Pt. up in chair. He has his eyes closed and is slurring his words. Indicates that he is tired. Wants to get back to bed. Mental Status/Objective Patient Orientation: Unable to Assess Attachments: Locke Catheter, IV Current Glasses/Contacts: Yes ADL-Treatment Pt. up in chair. He got up with PT x 2. Nursing reports that pt. wants to go back. OT talks with pt., but he has difficulty staying awake. He is unable to keep his eyes open. OT uses sit-stand lift with assist of another person. Max cues needed for pt. to follow commands. Requires assistance to keep legs in place. Unable to hold sit-stand handles as appropriate for lift. Transferred back to bed with left with max x 2, and then transferred sit-supine and up in bed with max x 2. All needs met and pt. with call light. Let nursing know pt. back to bed. Education OT Patient Education: Correct positioning, Progress toward Goal/Update tx plan, Purpose of tx/functional activities, Reviewed precautions, Rehab process, Transfer techniques Teaching Recipient: Patient Teaching Methods: Demonstration, Discussion Response to Teaching: Unable to Comprehend, Reinforcement Needed OT Short Term Goals Short Term Goals Time Frame: Nov 01, 2022 Eatin Oral hygiene: 3 Toileting hygiene: 2 Shower/bathe self: 2 Upper body dressin Lower body dressin Putting on/taking off footwear: 3 OT Snf Goals Snf Goals Time Frame: Nov 15, 2022 Eating (QC): 6 Oral Hygiene (QC): 6 Toileting Hygiene (QC): 5 Shower/Bathe Self (QC): 5 Upper Body Dressing (QC): 6 Lower Body Dressing (QC): 5 On/Off Footwear (QC): 5 Additional Goals: 1-Demonstrate ADL Tasks, 2-Verbalize Understanding, 3- ImproveStrength/Damien 1=Demonstrate adherence to instructed precautions during ADL tasks. 2=Patient will verbalize/demonstrate understanding of assistive devices/modifications for ADL. 3=Patient will improve strength/tolerance for activity to enable patient to perform ADL's. OT Education/Plan Problem List/Assessment Assessment: Decreased Activ Tolerance, Decreased UE Strength, Dependent Transfers, Impaired Bed Mobility, Impaired Cognition, Impaired Funct Balance, Impaired I ADL's, Impaired Self-Care Skills Discharge Recommendations Plan/Recommendations: Continue POC Therapy Discharge Recommendati: Post Acute OT Treatment Plan/Plan of Care Treatment,Training & Education: Yes Patient would benefit from OT for education, treatment and training to promote independence in ADL's, mobility, safety and/or upper extremity function for ADL's. Plan of Care: ADL Retraining, Functional Mobility, UE Funct Exercise/Act Treatment Duration: Nov 15, 2022 Frequency: 3 times per week (3-5x/week) Estimated Hrs Per Day: .25 hour per day Agreement: Yes Rehab Potential: Fair Time Start Time: 09:10 Stop Time: 09:30 DATE: Oct 18, 2022 Total Time Billed (hr/min): 20 Billed Treatment Time 1, EVH x 20minutes KIM HERNANDEZ OT Oct 18, 2022 09:45
[2022-10-18] MEDS: metFORMIN XR 500 MG (GLUCOPHAGE XR) TAB PO SCH ×2 (10:25→20:56)
[2022-10-18] MEDS: OLANZapine 5 MG ODT (ZyPREXA ZYDIS) PO SCH (10:25)
[2022-10-18] MEDS: polyethylene glycoL POWDER 17 GM (MIRALAX) PACK PO SCH (10:25)
[2022-10-18] MEDS: GABAPENTIN 600 MG (NEURONTIN) TAB PO SCH ×3 (10:25→20:56)
[2022-10-18] MEDS: lisINopril 5 MG (PRINIVIL) TABLET PO SCH (10:25)
[2022-10-18] MEDS: SERTRALINE 50 MG (ZOLOFT) TABLET PO SCH (10:25)
--- NOTE | 2022-10-18 10:46 | Physical Therapy Evaluation ---
PT Evaluation-General Medical Diagnosis Admission Date Oct 08, 2022 at 15:15 Medical Diagnosis: Resp fail, A-fib, CHF Onset Date: Oct 08, 2022 Therapy Diagnosis Therapy Diagnosis: generalized weakness/debility Precautions Precautions/Isolations: Fall Prevention, Standard Precautions Referral Physician: Dr. Parsons Reason for Referral: Evaluation/Treatment Medical History Pertinent Medical History: Atrial Fib, Alcoholism, HTN, Smoking Additional Medical History meth use Current History ER secondary to CP. Extubated 10/16/22 Reviewed History: Yes Social History Current Living Status: Alone Prior Prior Level of Function SCALE: Activities may be completed with or without assistive devices. 9-Wjqexrpaic-poexsqb completes the activity by him/herself with no assistance from a helper. 5-Set-up or Clean-up Assistance-helper sets up or cleans up; patient completes activity. [place] assists only prior to or following the activity. 4-Supervision or Touching Assistance-helper provides verbal cues and/or touching/steadying and/or contact guard assistance as patient completes activity. Assistance may be provided throughout the activity or intermittently. 3-Partial/Moderate Assistance-helper does LESS THAN HALF the effort. [place] lifts, holds or supports trunk or limbs, but provides less than half the effort. 2-Substantial/Maximal Assistance-helper does MORE THAN HALF the effort. [place] lifts or holds trunk or limbs and provides more than half the effort. 6-Xhdugyxqr-drzapm does ALL the effort. Patient does none of the effort to complete the activity. Or, the assistance of 2 or more helpers is required for the patient to complete the activity. If activity was not attempted, code reason: 7-Patient Refused. 9-Not Applicable-not attempted and the patient did not perform the activity before the current illness, exacerbation or injury. 10-Not Attempted due to Environmental Limitations-(lack of equipment, weather restraints, etc.). 88-Not Attempted due to Medical Conditions or Safety Concerns. Bed Mobility: 6 Transfers (B,C,W/C): 6 Gait: 6 Stairs: 6 Indoor Mobility (Ambulation): Independent Stairs: Independent Prior Devices Use: None PT Evaluation-Current Subjective Patient agrees to PT. Slightly agitated. Objective Patient Orientation: Person ROM/Strength ROM Lower Extremities bilateral LE WFL Strength Lower Extremities 2/5 grossly bilateral LE all planes (patient unable to perform MMT due to inability to follow direction) Integumentary/Posture Bladder Incontinence: Locke Cath Neuromuscular (Tone, Coordination, Reflexes) severely diminished with all Sensory Vision: Functional Hearing: Functional Transfers Roll Left to Right (QC): 1 Sit to Lying (QC): 1 Lying to Sitting/Side of Bed(Q: 1 Sit to Stand (QC): 1 Chair/Ouz-in-Mtbil Xfer(QC): 1 dependent with all mobility Gait Walk 10 feet (QC): 88 Walk 50 ft with 2 Turns(QC): 88 Balance Sitting Static: Poor Sitting Dynamic: Poor Standing Static: Poor Assessment/Needs Patient will benefit from skilled PT to address functional strength and mobility to improve current LOF. Patient is currently dependent with all mobility and agitated. Rehab Potential: Guarded PT Jail Goals Interface Analyst Goals PT Jail Goals Time Frame: Nov 06, 2022 Roll Left & Right (QC): 6 Sit to Lying (QC): 6 Lying-Sitting on Side/Bed(QC): 6 Sit to Stand (QC): 4 Chair/Hvy-ua-Hynpe Xfer(QC): 4 Toilet Transfer (QC): 4 Walk 10 feet (QC): 4 Walk 50ft with 2 Turns (QC): 4 Walk 150 ft (QC): 4 PT Plan Problem List Problem List: Activity Tolerance, Functional Strength, Safety, Balance, Gait, Transfer, Bed Mobility Treatment/Plan Treatment Plan: Continue Plan of Care Treatment Plan: Bed Mobility, Education, Functional Activity Damien, Functional Strength, Gait, Safety, Therapeutic Exercise, Transfers Treatment Duration: Nov 06, 2022 Frequency: 6 times per week Estimated Hrs Per Day: .25 hour per day Time Time In: 745 Time Out: 800 DATE: Oct 18, 2022 Total Billed Treatment Time: 15 Total Billed Treatment 1 visit [facility] 15 min TAMMY POSADA PT Oct 18, 2022 10:46
--- NOTE | 2022-10-18 13:47 | Progress Note - Hospitalist ---
JONO ROMANO 10/18/22 1347: Subjective HPI/CC On Admission Date Seen by Provider: Oct 18, 2022 Time Seen by Provider: 09:15 Chief complaint: Respiratory failure HPI: This is a 42-year-old male known meth user who presented to the ER with shortness of breath was found to have atrial fibrillation with rapid ventricular response with congestive heart failure and ultimately required intubation. He was found to have meth in his pockets and the police were called and took that supply. Subjective/Events-last exam No acute events overnight. Was experiencing some itching overnight 10/17 and was given Benadryl. On morning of 10/18, reported fatigue, mild nausea, and irritation related to Locke catheter. Review of Systems General: Fatigue Pulmonary: No Dyspnea, No Cough, No Pleuritic Chest Pain, No Other Cardiovascular: No: Chest Pain, Palpitations, Orthopnea, Paroxysmal Noc. Dyspnea, Edema, Lt Headedness, Other Gastrointestinal: Nausea Objective Exam Vital Signs Vital Signs Date Time Temp Pulse Resp B/P (MAP) Pulse Ox O2 Delivery O2 Flow Rate FiO2 10/18/22 13:23 130 10/18/22 11:00 31 133/97 (109) 91 Room Air 10/18/22 07:58 36.0 10/18/22 06:00 2.00 10/16/22 09:35 30 Capillary Refill : Less Than 3 Seconds General Appearance: No Apparent Distress, Other (resting comfortably in bed) Respiratory: Normal Breath Sounds, No Accessory Muscle Use, No Respiratory Distress Cardiovascular: No Gallop, No Murmur, Tachycardia (HR ~115, regular rhythm) Neurologic/Psychiatric: Alert, Oriented x3 Results/Procedures Lab Laboratory Tests 10/18/22 02:51 Patient resulted labs reviewed. Assessment/Plan Assessment and Plan Assess & Plan/Chief Complaint Assessment & Plan: 10/12 Appreciate Cardiology recommendations. Initially receiving IV lasix 40 mg daily, stopped and given bumetanide yesterday. 10/15 continued on bumetanide 10/16 patient going on day 8 for mechanical ventilation for agitated behavior due to meth with delirium. Staff report that he has had similar admissions in the past and is usually not agitated after several days of ventilation. He has no history of respiratory failure nor was he ventilated for this reason. His chest x-ray is unremarkable and physical examination from a cardiac and pulmonary standpoint are unremarkable. He does have history of dilated cardiomyopathy with an ejection fraction of 35 to 40% on this hospital admission likely related to meth and/or alcohol there is no evidence for heart failure currently. He is ventilating easily with stable reasonable ABGs on 30% FiO2 and 5% PEEP we will plan on sedation vacation and extubation to follow as long as his behavior allows after discussion with nursing staff. 10/17: Patient extubated without difficulty alert oriented anxious but in no acute distress. 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 He voices understanding that meth is killing him and tells this examiner any way that he is through with use. He apparently has support through a local snf that he plans on going back to. Off mechanical ventilation A. fib rate has increased will defer to cardiology about oral therapy for rate control likely beta-ryan in etiology. The patient does exhibit evidence for significant deconditioning. We will have him sit up on the edge of the bed if he is able to ambulate to the commode nursing staff been instructed to discontinue his Locke if there is a bed on the floor pending cardiology evaluation and A. fib medicat ion can be transferred to the floor. 10/18: Tachycardia as high as 137 bpm yesterday/overnight. Cardiology is following, and he is currently on metoprolol succinate, diltiazem, spironolactone, & PO Lasix. Oxygen saturation range 90-100 on 2L overnight. Plan to transfer to floor from ICU today. (1) Hypotension, resolved Status: Acute Assessment & Plan: Worsening overnight 10/10-10/11, required norepinephrine, weaned back off at this time. (2) Respiratory failure Status: Acute Assessment & Plan: Requiring intubation in ER due to agitation and apnea. Ext ubated 10/16. On room air and 2L at night. RR range 10-36 yesterday. Qualifiers: Qualified Codes: J96.01 - Acute respiratory failure with hypoxia (3) HFrEF Status: Chronic (4) Non-ischemic cardiomyopathy Status: Chronic (5) Persistent atrial fibrillation Status: Chronic Assessment & Plan: Chronic, EF 40% in April 2022. Dilated cardiomyopathy likely d/t meth use. Cardiology is following, follow-up recs. Currently on metoprolol s uccinate, diltiazem, spironolactone, PO Lasix, & rivaroxaban. (6) Rhabdomyolysis Status: Acute Assessment & Plan: Difficult to manage given fluid overload suspected related to HF. 10/18: CK remains elevated at 339, but decreased from 570 yesterday. (7) Methamphetamine abuse Status: Chronic Assessment & Plan: Found to have methamphetamine on person while admitted. financial services consultant is following. (8) Acute kidney injury Status: Resolved Assessment & Plan: Worsening renal function as of 10/11/22, suspect due to hypotension. Norepinephrine started for hypotension. 10/12- worsening, difficult management given fluid overload present 10/13- improved today, good urine output (9) HTN (hypertension) Status: Chronic (10) HLD (hyperlipidemia) Status: Chronic (11) DVT prophylaxis Status: Acute Assessment & Plan: rivaroxaban Clinical Quality Measures AMI/AHF: ASA po Prior to arrival: ERIN Maxwell DO 10/18/222122: Objective Exam General Appearance: No Apparent Distress, WD/WN, Chronically ill Respiratory: Lungs Clear, Normal Breath Sounds Cardiovascular: Irregularly Irregular, Tachycardia (HR ~115, regular rhythm) Assessment/Plan Assessment and Plan Assess & Plan/Chief Complaint Assessment: Afib with RVR Cardiomyopathy Meth withdrawal Status post extubation Plan: Maintain ICU status after entertaining move to 4th floor Supportive care Supervisory-Addendum Brief Verification & Attestation Participated in pt care: history, MDM, physical Personally performed: exam, history, MDM, supervision of care Care discussed with: Medical Student Procedures: n/a Results interpretation: Verified all documentation Verification and Attestation of Medical Student E/M Service A medical student performed and documented this service in my presence. I reviewed and verified all information documented by the medical student and made modifications to such information, when appropriate. I personally performed the physical exam and medical decision making. Erin Cole, Oct 18, 2022,21:22 JONO ROMANO Oct 18, 2022 13:47 ERIN COLE DO Oct 18, 2022 21:23
--- NOTE | 2022-10-18 16:34 | Progress Note - Cardiology ---
Cardiology SOAP Progress Note Subjective: No cp or palp or syncope Gen weakness and malaise Anxiety present No n/v/d Objective: I&O/Vital Signs 10/18/22 10/18/22 10/18/22 10/18/22 05:00 06:00 06:27 06:55 Pulse 114 101 137 Resp 18 24 B/P (MAP) 129/94 (106) 128/94 (105) Pulse Ox 99 97 99 O2 Delivery Nasal Cannula Nasal Cannula Room Air O2 Flow Rate 2.00 2.00 10/18/22 10/18/22 10/18/22 10/18/22 07:00 07:13 07:58 08:00 Temp 36.0 Pulse 123 133 114 Resp 9 28 B/P (MAP) 136/82 (100) 140/103 (115) Pulse Ox 93 90 O2 Delivery Room Air Room Air 10/18/22 10/18/22 10/18/22 10/18/22 08:08 09:00 10:00 11:00 Pulse 121 113 129 Resp 17 21 31 B/P (MAP) 127/107 (114) 126/95 (105) 133/97 (109) Pulse Ox 90 90 90 91 O2 Delivery Room Air Room Air Room Air Room Air 10/18/22 10/18/22 12:00 13:23 Pulse 126 130 Resp 16 B/P (MAP) 123/91 (102) Pulse Ox 93 O2 Delivery Room Air 10/18/22 00:00 Intake Total 2759.7 ml Output Total 600 ml Balance 2159.7 ml Constitutional: AAO x 3 Respiratory: other (diminshed lower lobes bilat) Cardiovascular: irregularly irregular, S1 and S2 Gastrointestional: audible bowel sounds Extremities: other (mod bilat LE swelling) Neurologic/Psychiatric: grossly intact (moves all extremities) Skin: No rash on exposed areas, No ulcerations on exposed areas Results/Procedures: Labs Laboratory Tests 10/18/22 02:51: White Blood Count 13.9H, Red Blood Count 4.57, Hemoglobin 12.9L, Hematocrit 42, Mean Corpuscular Volume 91, Mean Corpuscular Hemoglobin 28, Mean Corpuscular Hemoglobin Concent 31L, Red Cell Distribution Width 19.9H, Platelet Count 284, Mean Platelet Volume 11.9, Immature Granulocyte % (Auto) 1, Neutrophils (%) (Auto) 81H, Lymphocytes (%) (Auto) 8L, Monocytes (%) (Auto) 6, Eosinophils (%) (Auto) 3, Basophils (%) (Auto) 0, Neutrophils # (Auto) 11.2H, Lymphocytes # (Auto) 1.2, Monocytes # (Auto) 0.8, Eosinophils # (Auto) 0.5H, Basophils # (Auto) 0.1, Immature Granulocyte # (Auto) 0.2H, Sodium Level 139, Potassium Level 3.8, Chloride Level 104, Carbon Dioxide Level 24, Anion Gap 11, Blood Urea Nitrogen 15, Creatinine 0.72, Estimat Glomerular Filtration Rate 116, BUN/Creatinine Ratio 21, Glucose Level 111H, Calcium Level 9.2, Corrected Calcium 9.8, Phosphorus Level 2.2L, Magnesium Level 1.8, Total Bilirubin 2.7H, Aspartate Amino Transf (AST/SGOT) 46H, Alanine Aminotransferase (ALT/SGPT) 33, Alkaline Phosphatase 161H, Total Creatine Kinase 339H, Total Protein 7.1, Albumin 3.3 Microbiology 10/12/22 Gram Stain - Final, Complete 10/12/22 Sputum Culture - Final, Complete Usual upper respiratory travis Staphylococcus aureus Haemophilus influenza Laboratory Tests 10/17/22 05:00 10/18/22 02:51 A/P: Assessment: Acute respiratory failure requiring intubation - extubated 10-16-22 - multi-factorial d/t pneumonia and acute on chronic systolic CHF Acute on chronic systolic congestive heart failure - Echo was done in April 2022 with ejection fraction 40 to 45% with biatrial enlargement, moderate mitral regurgitation, pulmonary artery pressure 45 to 50 mmHg. - Echo of 10-11-[address] Hernandez showed LVEF 35-40%. Mod sized L pleural effusion. Mild MR. Mild to mod TR. Persistent/permanent atrial fibrillation/flutter - History of ablation done in [place] in late 2020, previously refusing any fur ther ablation - Had been maintained on Eliquis (unsure of compliance) - changed to Xarelto this admission Nonischemic cardiomyopathy - cardiac catheterization done in [place] around 2019 did not show any obstructive disease. History of methamphetamine abuse. - Still using it intermittently, he was found to have methamphetamine in his pocket during this hospitalization EtOH abuse. Acute renal failure - renal function improved Hyperlipidemia Tobaccoism History of noncompliance with medication or medical instruction History of elevated liver enzymes. Probably underlying cirrhosis seen on CTA of the abdomen in the past. Plan: Complex management issue d/t issues noted above along with non-compliance, EtOH abuse, and continuing meth abuse Continue diuretics Increase BB and re-start low dose NOLVIA - titrate as BP and HR allows Add long-acting dilt for vent rate control Restart Aldactone Add SGLT2-inhibitors Monitor lab closely Replace electrolytes Xarelto for stroke stroke prophylaxis Clinical Quality Measures AMI/AHF: ASA po Prior to arrival: SAVI Cheng MD FACP FAC CCDS Oct 18, 2022 16:34
[2022-10-18] MEDS: RIVAROXABAN 20 MG TABLET (XARELTO) PO SCH (18:30)
[2022-10-18] MEDS: rOPINIRole 0.25 MG (REQUIP) TAB PO SCH (20:56)
[2022-10-18] MEDS: MIRTAZAPINE 15 MG (REMERON) TAB PO SCH (20:58)
[2022-10-18] MEDS: LORazepam 1 MG (ATIVAN) TAB PO PRN (23:43)
[2022-10-19 04:09] LABS: BASOPHILS # (AUTO) 0.1 10^3/uL (0.0-0.1); BASOPHILS % (AUTO) 0 % (0-10); EOSINOPHILS # (AUTO) 0.4 10^3/uL (0.0-0.3); EOSINOPHILS % (AUTO) 3 % (0-10); HEMATOCRIT 39 % (40-54); LYMPHOCYTES # (AUTO) 1.2 10^3/uL (1.0-4.0); LYMPHOCYTES % (AUTO) 9 % (12-44); MEAN CORPUSCULAR HEMOGLOBIN 28 pg (25-34); MEAN CORPUSCULAR HGB CONC 31 g/dL (32-36); MEAN CORPUSCULAR VOLUME 91 fL (80-99); MEAN PLATELET VOLUME 11.5 fL (9.0-12.2); MONOCYTES # (AUTO) 0.8 10^3/uL (0.0-1.0); MONOCYTES % (AUTO) 6 % (0-12); NEUTROPHILS # (AUTO) 10.9 10^3/uL (1.8-7.8); NEUTROPHILS % (AUTO) 81 % (42-75); PLATELET COUNT 303 10^3/uL (130-400); WHITE BLOOD COUNT 13.4 10^3/uL (4.3-11.0)
[2022-10-19 04:17] LABS: ALBUMIN 3.2 GM/DL (3.2-4.5)
[2022-10-19 04:18] LABS: POTASSIUM 3.3 MMOL/L (3.6-5.0)
[2022-10-19 04:19] LABS: CALCIUM 9.1 MG/DL (8.5-10.1)
[2022-10-19 04:20] LABS: TOTAL PROTEIN 6.9 GM/DL (6.4-8.2)
[2022-10-19 04:22] LABS: BILIRUBIN,TOTAL 2.4 MG/DL (0.1-1.0)
[2022-10-19 04:24] LABS: CREATININE SERUM 0.73 MG/DL (0.60-1.30)
[2022-10-19] MEDS: LORazepam 1 MG (ATIVAN) TAB PO PRN (05:28)
[2022-10-19] MEDS: lisINopril 5 MG (PRINIVIL) TABLET PO SCH (08:35)
[2022-10-19] MEDS: GABAPENTIN 600 MG (NEURONTIN) TAB PO SCH ×4 (08:35→20:36)
[2022-10-19] MEDS: SPIRONOLACTONE 25 MG (ALDACTONE) TAB PO SCH (08:35)
[2022-10-19] MEDS: OLANZapine 5 MG ODT (ZyPREXA ZYDIS) PO SCH (08:35)
[2022-10-19] MEDS: PANTOPRAZOLE 40 MG (PROTONIX) TAB PO SCH (08:35)
[2022-10-19] MEDS: meTOproloL SUCCINATE 50 MG (TOPROL XL) TAB PO SCH (08:35)
[2022-10-19] MEDS: polyethylene glycoL POWDER 17 GM (MIRALAX) PACK PO SCH (08:36)
[2022-10-19] MEDS: SERTRALINE 50 MG (ZOLOFT) TABLET PO SCH (08:36)
[2022-10-19] MEDS: FUROSEMIDE 40 MG (LASIX) TAB PO SCH (08:36)
[2022-10-19] MEDS: EMPAGLIFLOZIN 10 MG TABLET (JARDIANCE) PO SCH ×2 (08:36)
[2022-10-19] MEDS: DOCUSATE SODIUM 100 MG (COLACE) CAP PO SCH ×2 (08:36→20:37)
[2022-10-19] MEDS: LORazepam 1 MG (ATIVAN) TAB PO SCH ×2 (08:36→20:34)
[2022-10-19] MEDS: metFORMIN XR 500 MG (GLUCOPHAGE XR) TAB PO SCH ×2 (08:37→20:36)
[2022-10-19] MEDS ORDERED: KCL 20 MEQ TAB (K-DUR) PO ONE (09:30)
--- NOTE | 2022-10-19 09:36 | Physical Therapy Daily Note ---
PT Daily Note-Current Subjective Patient lying supine in bed with HOB elevated fully, nurse in the room assisting with breakfast. Patient and nurse agreeable to treatment. At rest, patient reports no pain, however during activity reports his right knee hurts, especially when bending. Pain Section J - Health Conditions 1. Rarely or not at all 2. Occasionally 3. Frequently 4. Almost constantly 8. Unable to answer Pain Effect on Sleep: 1 Pain Interference with Therapy: 2 Pain Interference w/Day-to-Day: 2 Mental Status Patient Orientation: Person Attachments: Oxygen, Locke Catheter, IV Transfers SCALE: Activities may be completed with or without assistive devices. 8-Wqnectkanm-ioxewkn completes the activity by him/herself with no assistance from a helper. 5-Set-up or Clean-up Assistance-helper sets up or cleans up; patient completes activity. [place] assists only prior to or following the activity. 4-Supervision or Touching Assistance-helper provides verbal cues and/or touching/steadying and/or contact guard assistance as patient completes activity. Assistance may be provided throughout the activity or intermittently. 3-Partial/Moderate Assistance-helper does LESS THAN HALF the effort. [place] lifts, holds or supports trunk or limbs, but provides less than half the effort. 2-Substantial/Maximal Assistance-helper does MORE THAN HALF the effort. [place] lifts or holds trunk or limbs and provides more than half the effort. 3-Ncdgzjtmg-pkfnmf does ALL the effort. Patient does none of the effort to complete the activity. Or, the assistance of 2 or more helpers is required for the patient to complete the activity. If activity was not attempted, code reason: 7-Patient Refused. 9-Not Applicable-not attempted and the patient did not perform the activity before the current illness, exacerbation or injury. 10-Not Attempted due to Environmental Limitations-(lack of equipment, weather restraints, etc.). 88-Not Attempted due to Medical Conditions or Safety Concerns. Roll Left & Right (QC): 1 Sit to Lying (QC): 1 Lying to Sitting/Side of Bed(Q: 1 Sit to Stand (QC): 2 Chair/Qls-rx-Gdkmz Xfer(QC): 2 Gait Training Does the Patient Walk?: No and Walking Goal IS indicated Assessment Current Status: Poor Progress Patient tolerated treatment fair. He demonstrates minimal improvement in transfers, however maximal assistance and does not demonstrate any safety awareness. Patient performs bed mobility with total assistance. Nurse assists with sitting balance for doffing of old gown, donning new gown and gait belt. Patient requires max A for static sitting balance. Patient performs sit to stand with max A and SPT with max-total A. He attempts to perform stepping to the chair, however was unable to elevate LEs to perform any functional forward LE progression. Requires total A for SPT to chair due to safety and patient fatigue. Patient in chair post treatment with all needs met, nursing in room, call light in reach. PT Desk Maker Goals Desk Maker Goals PT Nursing Home Goals Time Frame: Nov 06, 2022 Roll Left & Right (QC): 6 Sit to Lying (QC): 6 Lying-Sitting on Side/Bed(QC): 6 Sit to Stand (QC): 4 Chair/Zro-bd-Igrlj Xfer(QC): 4 Toilet Transfer (QC): 4 Walk 10 feet (QC): 4 Walk 50ft with 2 Turns (QC): 4 Walk 150 ft (QC): 4 PT Plan Treatment/Plan Treatment Plan: Continue Plan of Care Treatment Plan: Bed Mobility, Education, Functional Activity Damien, Functional Strength, Gait, Safety, Therapeutic Exercise, Transfers Treatment Duration: Nov 06, 2022 Frequency: 6 times per week Estimated Hrs Per Day: .25 hour per day Safety Risks/Education Patient Education: Transfer Techniques Teaching Recipient: Patient Teaching Methods: Demonstration, Discussion Response to Teaching: Reinforcement Needed Time Time In: 900 Time Out: 926 DATE: Oct 19, 2022 Total Billed Treatment Time: 26 Total Billed Treatment Visit, FA (2) IBRAHIMA SAMPSON PT Oct 19, 2022 09:36
--- NOTE | 2022-10-19 09:48 | Progress Note - Cardiology ---
Cardiology SOAP Progress Note Subjective: Lethargic this morning Sitting up in recliner Opens eyes when spoken to, but does not provide any answers to questions Objective: I&O/Vital Signs 10/19/22 10/20/22 10/20/22 10/20/22 21:00 00:00 00:00 01:00 Temp 36.7 Pulse 103 94 Resp 24 B/P (MAP) 122/87 (99) Pulse Ox 93 94 O2 Delivery Nasal Cannula Nasal Cannula O2 Flow Rate 2.00 2.00 10/20/22 10/20/22 10/20/22 10/20/22 04:00 04:00 07:12 07:13 Temp 36.7 Pulse 93 93 Resp 16 B/P (MAP) 112/80 (91) Pulse Ox 94 95 O2 Delivery Nasal Cannula Nasal Cannula O2 Flow Rate 2.00 2.00 10/20/22 10/20/22 10/20/22 10/20/22 07:53 07:54 08:00 08:13 Temp 36.2 Pulse 126 Resp 26 B/P (MAP) 114/104 (107) Pulse Ox 87 95 96 O2 Delivery Room Air Nasal Cannula Nasal Cannula O2 Flow Rate 2.00 2.00 10/20/22 00:00 Intake Total 940 ml Output Total 1600 ml Balance -660 ml Constitutional: AAO x 3 Respiratory: other (diminshed lower lobes bilat) Cardiovascular: irregularly irregular, S1 and S2 Gastrointestional: audible bowel sounds Extremities: other (mod bilat LE swelling) Neurologic/Psychiatric: grossly intact (moves all extremities) Skin: No rash on exposed areas, No ulcerations on exposed areas Results/Procedures: Labs Laboratory Tests 10/19/22 18:30: Glucometer 95 10/20/22 05:45: Magnesium Level 1.7 Microbiology 10/12/22 Gram Stain - Final, Complete 10/12/22 Sputum Culture - Final, Complete Usual upper respiratory travis Staphylococcus aureus Haemophilus influenza A/P: Assessment: Acute respiratory failure requiring intubation - extubated 10-16-22 - multi-factorial d/t pneumonia and acute on chronic systolic CHF Acute on chronic systolic congestive heart failure - Echo was done in April 2022 with ejection fraction 40 to 45% with biatrial enlargement, moderate mitral regurgitation, pulmonary artery pressure 45 to 50 mmHg. - Echo of 10-11-[address] Hernandez showed LVEF 35-40%. Mod sized L pleural effusion. Mild MR. Mild to mod TR. Persistent/permanent atrial fibrillation/flutter - History of ablation done in [place] in late 2020, previously refusing any further ablation - Had been maintained on Eliquis (unsure of compliance) - changed to Xarelto this admission Nonischemic cardiomyopathy - cardiac catheterization done in [place] around 2019 did not show any obstructive disease. History of methamphetamine abuse. - Still using it intermittently, he was found to have methamphetamine in his pocket during this hospitalization EtOH abuse. Acute renal failure - renal function improved Hyperlipidemia Tobaccoism History of noncompliance with medication or medical instruction History of elevated liver enzymes. Probably underlying cirrhosis seen on CTA of the abdomen in the past. Plan: Complex management issue d/t issues noted above along with non-compliance, EtOH abuse, and continuing meth abuse HR remains uncontrolled despite addition of long-acting dilt for vent rate control and increased dose of BB - give IV dig today and monitor Continue Aldactone, NOLVIA and Lasix Continue SGLT2-inhibitors Monitor lab closely Replace electrolytes Xarelto for stroke stroke prophylaxis Clinical Quality Measures AMI/AHF: ASA po Prior to arrival: ANN Correa Oct 19, 2022 09:48
[2022-10-19] MEDS ORDERED: DIGOXIN 0.25 MG/ML (LANOXIN) 2 ML AMP IV ONE ×2 (10:00→13:00)
--- NOTE | 2022-10-19 10:36 | Progress Note - Hospitalist ---
JONO ROMANO 10/19/22 1036: Subjective HPI/CC On Admission Date Seen by Provider: Oct 19, 2022 Time Seen by Provider: 09:15 Chief complaint: Respiratory failure HPI: This is a 42-year-old male known meth user who presented to the ER with shortness of breath was found to have atrial fibrillation with rapid ventricular response with congestive heart failure and ultimately required intubation. He was found to have meth in his pockets and the police were called and took that supply. Subjective/Events-last exam No acute events overnight. Remains in ICU due to tachycardia. This morning, Mr. Alexander reported feeling palpitations but denied chest pain and shortness of breath. He is tolerating diet without nausea or vomiting. He is still feeling quite weak, but continues to work with PT/OT. Review of systems negative except as described above. Objective Exam Vital Signs Vital Signs Date Time Temp Pulse Resp B/P (MAP) Pulse Ox O2 Delivery O2 Flow Rate FiO2 10/19/22 11:58 36.3 10/19/22 10:30 134 17 156/133 (141) 95 Nasal Cannula 2.00 10/16/22 09:35 30 Capillary Refill : Less Than 3 Seconds General Appearance: No Apparent Distress Respiratory: Lungs Clear, Normal Breath Sounds, No Accessory Muscle Use, No Respiratory Distress Cardiovascular: No Gallop, No Murmur, Irregularly Irregular, Tachycardia Neurologic/Psychiatric: Motor Weakness Results/Procedures Lab Laboratory Tests 10/19/22 04:02 Patient resulted labs reviewed. Assessment/Plan Assessment and Plan Assess & Plan/Chief Complaint Assessment & Plan: 10/12: Appreciate Cardiology recommendations. Initially receiving IV lasix 40 mg daily, stopped and given bumetanide yesterday. 10/15: continued on bumetanide 10/16: patient going on day 8 for mechanical ventilation for agitated behavior due to meth with delirium. Staff report that he has had similar admissions in the past and is usually not agitated after several days of ventilation. He has no history of respiratory failure nor was he ventilated for this reason. His chest x-ray is unremarkable and physical examination from a cardiac and pulmonary standpoint are unremarkable. He does have history of dilated cardiomyopathy with an ejection fraction of 35 to 40% on this hospital admission likely related to meth and/or alcohol there is no evidence for heart failure currently. He is ventilating easily with stable reasonable ABGs on 30% FiO2 and 5% PEEP we will plan on sedation vacation and extubation to follow as long as his behavior allows after discussion with nursing staff. 10/17: Patient extubated without difficulty alert oriented anxious but in no acute distress. 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 He voices understanding that meth is killing him and tells this examiner any way that he is through with use. He apparently has support through a local custodial that he plans on going back to. Off mechanical ventilation A. fib rate has increased will defer to cardiology about oral therapy for rate control likely beta-ryan in etiology. The patient does exhibit evidence for significant deconditioning. We will have him sit up on the edge of the bed if he is able to ambulate to the commode nursing staff been instructed to discontinue his Locke if there is a bed on the floor pending cardiology evaluation and A. fib medication can be transferred to the floor. 10/18: Tachycardia as high as 137 bpm yesterday/overnight. Cardiology is following, and he is currently on metoprolol succinate, diltiazem, spironolactone, & PO Lasix. Oxygen saturation range 90-100 on 2L overnight. Plan to transfer to floor from ICU today. 10/19: We were hoping to transfer Mr. Alexander to the floor yesterday, but continued tachycardia as high as 137 bpm necessitated remaining in the ICU. K+ suppl ementation given today for K+ level of 3.3 on morning labs. As of yesterday 10/18, started lisinopril 2.5mg PO qday, increased metoprolol succinate from 25mg to 50mg PO qday, and started empagliflozin 10mg PO qday. Per cardiology recommendations, gave 0.25mg IV digoxin today for persistent tachycardia and a- fib, and discontinued diltiazem. Locke catheter removed today, and encouraged continued ambulation/working with PT/OT. (1) Hypotension, resolved Status: Acute Assessment & Plan: Worsening overnight 10/10-10/11, required norepinephrine, weaned back off at this time. (2) Respiratory failure, improving Status: Acute Assessment & Plan: Requiring intubation in ER due to agitation and apnea. Extubated 10/16. On room air and 2L at night. RR range 9-31 yesterday. Qualifiers: Qualified Codes: J96.01 - Acute respiratory failure with hypoxia (3) HFrEF Status: Chronic (4) Non-ischemic cardiomyopathy Status: Chronic (5) Persistent atrial fibrillation Status: Chronic Assessment & Plan: Chronic, EF 40% in April 2022. Dilated cardiomyopathy likely d/t meth use. Cardiology is following, follow-up recs & see above. Currently on metoprolol succinate, lisinopril, digoxin, spironolactone, PO Lasix, & rivaroxaban. (6) Rhabdomyolysis Status: Acute Assessment & Plan: Difficult to manage given fluid overload suspected related to HF. 10/18: CK remains elevated at 339, but decreased from 570 yesterday. (7) Methamphetamine abuse Status: Chronic Assessment & Plan: Found to have methamphetamine on person while admitted. janitorial services supervisor is following. (8) Acute kidney injury Status: Resolved Assessment & Plan: Worsening renal function as of 10/11/22, suspect due to hypotension. Norepinephrine started for hypotension. 10/12: worsening, difficult management given fluid overload present 10/13: improved today, good urine output 10/19: Locke catheter removed (9) HTN (hypertension) Status: Chronic (10) HLD (hyperlipidemia) Status: Chronic (11) DVT prophylaxis Status: Acute Assessment & Plan: rivaroxaban Clinical Quality Measures AMI/AHF: ASA po Prior to arrival: No ERIN COLE DO 10/20/22 0521: Subjective Subjective/Events-last exam Heart rate remains at 120 Oxygen at 2L on nasal cannula Checked meds and labs Supervisory-Addendum Brief Verification & Attestation Participated in pt care: history, MDM, physical Personally performed: exam, history, MDM, supervision of care Care discussed with: Medical Student Procedures: n/a Results interpretation: Verified all documentation Verification and Attestation of Medical Student E/M Service A medical student performed and documented this service in my presence. I reviewed and verified all information documented by the medical student and made modifications to such information, when appropriate. I personally performed the physical exam and medical decision making. Erin Cole, Oct 20, 2022,05:21 JONO ROMANO Oct 19, 2022 10:36 ERIN COLE DO Oct 20, 2022 05:21
--- NOTE | 2022-10-19 11:50 | Progress Note - Cardiology ---
Cardiology SOAP Progress Note Subjective: No cp or palp or syncope Gen malaise and tiredness No n/v/d No focal weakness Objective: I&O/Vital Signs 10/19/22 10/19/22 10/19/22 10/19/22 00:00 04:00 04:00 04:00 Temp 36.9 Pulse 110 129 129 Resp 15 28 B/P (MAP) 119/98 (105) 109/79 (89) Pulse Ox 95 O2 Delivery Nasal Cannula Nasal Cannula O2 Flow Rate 2.00 2.00 10/19/22 10/19/22 10/19/22 10/19/22 07:04 08:00 08:00 08:07 Temp 36.4 Pulse 126 141 138 Resp 18 21 B/P (MAP) 122/88 (99) 120/85 (97) Pulse Ox 93 90 95 O2 Delivery Nasal Cannula Nasal Cannula Nasal Cannula O2 Flow Rate 2.00 2.00 10/19/22 10/19/22 08:08 10:30 Pulse 155 134 Resp 17 B/P (MAP) 156/133 (141) Pulse Ox 95 O2 Delivery Nasal Cannula O2 Flow Rate 2.00 10/18/22 23:59 Intake Total 1150 ml Output Total 1300 ml Balance -150 ml Constitutional: AAO x 3, other (slow to respond, somnolent) Respiratory: other (diminshed lower lobes bilat) Cardiovascular: irregularly irregular, S1 and S2 Gastrointestional: audible bowel sounds Extremities: other (mod bilat LE swelling) Neurologic/Psychiatric: other (moves all limbs equally) Skin: No rash on exposed areas, No ulcerations on exposed areas Results/Procedures: Labs Laboratory Tests 10/19/22 04:02: White Blood Count 13.4H, Red Blood Count 4.29L, Hemoglobin 12.0L, Hematocrit 39L , Mean Corpuscular Volume 91, Mean Corpuscular Hemoglobin 28, Mean Corpuscular Hemoglobin Concent 31L, Red Cell Distribution Width 19.7H, Platelet Count 303, Mean Platelet Volume 11.5, Immature Granulocyte % (Auto) 1, Neutrophils (%) (Auto) 81H, Lymphocytes (%) (Auto) 9L, Monocytes (%) (Auto) 6, Eosinophils (%) (Auto) 3, Basophils (%) (Auto) 0, Neutrophils # (Auto) 10.9H, Lymphocytes # (Auto) 1.2, Monocytes # (Auto) 0.8, Eosinophils # (Auto) 0.4H, Basophils # (Auto) 0.1, Immature Granulocyte # (Auto) 0.1, Sodium Level 141, Potassium Level 3.3L, Chloride Level 104, Carbon Dioxide Level 24, Anion Gap 13, Blood Urea Nitrogen 14, Creatinine 0.73, Estimat Glomerular Filtration Rate 116, BUN/Creatinine Ratio 19, Glucose Level 108H, Calcium Level 9.1, Corrected Calcium 9.7, Total Bilirubin 2.4H, Aspartate Amino Transf (AST/SGOT) 45H, Alanine Aminotransferase (ALT/SGPT) 33, Alkaline Phosphatase 161H, Total Protein 6.9, Albumin 3.2 Microbiology 10/12/22 Gram Stain - Final, Complete 10/12/22 Sputum Culture - Final, Complete Usual upper respiratory travis Staphylococcus aureus Haemophilus influenza Laboratory Tests 10/18/22 02:51 10/19/22 04:02 A/P: Assessment: Acute respiratory failure requiring intubation - extubated 10-16-22 - multi-factorial d/t pneumonia and acute on chronic systolic CHF Acute on chronic systolic congestive heart failure - Echo was done in April 2022 with ejection fraction 40 to 45% with biatrial enlargement, moderate mitral regurgitation, pulmonary artery pressure 45 to 50 mmHg. - Echo of 10-11-[address] Hernandez showed LVEF 35-40%. Mod sized L pleural effusion. Mild MR. Mild to mod TR. Persistent/permanent atrial fibrillation/flutter - History of ablation done in [place] in late 2020, previously refusing any further ablation - Had been maintained on Eliquis (unsure of compliance) - changed to Xarelto this admission Nonischemic cardiomyopathy - cardiac catheterization done in [place] around 2019 did not show any obstructive disease. History of methamphetamine abuse. - Still using it intermittently, he was found to have methamphetamine in his pocket during this hospitalization EtOH abuse. Acute renal failure - renal function improved Hyperlipidemia Tobaccoism History of noncompliance with medication or medical instruction History of elevated liver enzymes. Probably underlying cirrhosis seen on CTA of the abdomen in the past. Plan: Complex management issue d/t issues noted above along with non-compliance, EtOH abuse, and continuing meth abuse HR remains uncontrolled despite addition of long-acting dilt for vent rate control and increased dose of BB - give IV dig today and monitor Continue Aldactone, NOLVIA and Lasix Continue SGLT2-inhibitors Monitor lab closely Replace electrolytes Xarelto for stroke stroke prophylaxis Clinical Quality Measures AMI/AHF: ASA po Prior to arrival: SAVI Cheng MD FACP [facility] Oct 19, 2022 11:50
--- NOTE | 2022-10-19 12:11 | Occupational Ther Daily Note ---
OT Current Status-Daily Note Subjective Pt sleeping in recliner, attempt to wake pt for meal. Mental Status/Objective Patient Orientation: Unable to Assess ADL-Treatment Pt woke to name and nodded head yes when ask if he wanted a bite or a drink. Pt took one small bite and swallowed then fell asleep. Woke to name again and said yes to drink then fell asleep and would not wake when name stated or straw touched lips. Nrsg in room and aware of pt's position. Nrsg reported that pt needs assistance to eat, tech to complete. After therapy, pt sitting in recliner with call light/phone in reach. All needs met in room. Therapy Code Descriptions/Definitions Functional Tripp Measure: 0=Not Assessed/NA 4=Minimal Assistance 1=Total Assistance 5=Supervision or Setup 2=Maximal Assistance 6=Modified Tripp 3=Moderate Assistance 7=Complete IndependenceSCALE: Activities may be completed with or without assistive devices. 0-Lzstkordkl-qvvgvda completes the activity by him/herself with no assistance from a helper. 5-Set-up or Clean-up Assistance-helper sets up or cleans up; patient completes activity. [place] assists only prior to or following the activity. 4-Supervision or Touching Assistance-helper provides verbal cues and/or touching/steadying and/or contact guard assistance as patient completes activity. Assistance may be provided throughout the activity or intermittently. 3-Partial/Moderate Assistance-helper does LESS THAN HALF the effort. [place] lifts, holds or supports trunk or limbs, but provides less than half the effort. 2-Substantial/Maximal Assistance-helper does MORE THAN HALF the effort. [place] lifts or holds trunk or limbs and provides more than half the effort. 5-Knlgggsfk-xtuudg does ALL the effort. Patient does none of the effort to complete the activity. Or, the assistance of 2 or more helpers is required for the patient to complete the activity. If activity was not attempted, code reason: 7-Patient Refused. 9-Not Applicable-not attempted and the patient did not perform the activity before the current illness, exacerbation or injury. 10-Not Attempted due to Environmental Limitations-(lack of equipment, weather restraints, etc.). 88-Not Attempted due to Medical Conditions or Safety Concerns. OT Short Term Goals Short Term Goals Time Frame: Nov 01, 2022 Eatin Oral hygiene: 3 Toileting hygiene: 2 Shower/bathe self: 2 Upper body dressin Lower body dressin Putting on/taking off footwear: 3 OT Technical Supervisor Goals Snf Goals Time Frame: Nov 15, 2022 Eating (QC): 6 Oral Hygiene (QC): 6 Toileting Hygiene (QC): 5 Shower/Bathe Self (QC): 5 Upper Body Dressing (QC): 6 Lower Body Dressing (QC): 5 On/Off Footwear (QC): 5 Additional Goals: 1-Demonstrate ADL Tasks, 2-Verbalize Understanding, 3- ImproveStrength/Damien 1=Demonstrate adherence to instructed precautions during ADL tasks. 2=Patient will verbalize/demonstrate understanding of assistive devices/modifications for ADL. 3=Patient will improve strength/tolerance for activity to enable patient to perform ADL's. OT Education/Plan Problem List/Assessment Assessment: Decreased Activ Tolerance, Decreased Safety Aware, Dependent Transfers Discharge Recommendations Plan/Recommendations: Continue POC Treatment Plan/Plan of Care Patient would benefit from OT for education, treatment and training to promote independence in ADL's, mobility, safety and/or upper extremity function for ADL's. Plan of Care: ADL Retraining, Functional Mobility, UE Funct Exercise/Act Treatment Duration: Nov 15, 2022 Frequency: 3 times per week (3-5x/week) Estimated Hrs Per Day: .25 hour per day Agreement: Yes Rehab Potential: Guarded Time Start Time: 11:13 Stop Time: 11:25 DATE: Oct 19, 2022 Total Time Billed (hr/min): 8 Billed Treatment Time 1 visit-ADL 1 (8 min) DAKOTAH YANG Oct 19, 2022 12:11
[2022-10-19] MEDS: RIVAROXABAN 20 MG TABLET (XARELTO) PO SCH (16:20)
[2022-10-19] MEDS: rOPINIRole 0.25 MG (REQUIP) TAB PO SCH (20:36)
[2022-10-19] MEDS: MIRTAZAPINE 15 MG (REMERON) TAB PO SCH (20:37)
[2022-10-20] MEDS: LORazepam 1 MG (ATIVAN) TAB PO PRN ×2 (03:50→16:14)
[2022-10-20] MEDS: HYDROmorphone 2 MG/ML VIAL (DILAUDID) IV PRN (03:50)
[2022-10-20] MEDS: GABAPENTIN 600 MG (NEURONTIN) TAB PO SCH ×3 (08:28→20:18)
[2022-10-20] MEDS: DOCUSATE SODIUM 100 MG (COLACE) CAP PO SCH ×2 (08:28→20:18)
[2022-10-20] MEDS: LORazepam 1 MG (ATIVAN) TAB PO SCH ×2 (08:28→20:18)
[2022-10-20] MEDS: EMPAGLIFLOZIN 10 MG TABLET (JARDIANCE) PO SCH (08:28)
[2022-10-20] MEDS: OLANZapine 5 MG ODT (ZyPREXA ZYDIS) PO SCH (08:28)
[2022-10-20] MEDS: KCL 20 MEQ TAB (K-DUR) PO SCH (08:28)
[2022-10-20] MEDS: polyethylene glycoL POWDER 17 GM (MIRALAX) PACK PO SCH ×2 (08:29→08:35)
[2022-10-20] MEDS: lisINopril 5 MG (PRINIVIL) TABLET PO SCH (08:29)
[2022-10-20] MEDS: PANTOPRAZOLE 40 MG (PROTONIX) TAB PO SCH (08:29)
[2022-10-20] MEDS: metFORMIN XR 500 MG (GLUCOPHAGE XR) TAB PO SCH ×2 (08:29→20:18)
[2022-10-20] MEDS: SPIRONOLACTONE 25 MG (ALDACTONE) TAB PO SCH (08:29)
[2022-10-20] MEDS: FUROSEMIDE 40 MG (LASIX) TAB PO SCH (08:29)
[2022-10-20] MEDS: SERTRALINE 50 MG (ZOLOFT) TABLET PO SCH (08:29)
[2022-10-20] MEDS: meTOproloL SUCCINATE 50 MG (TOPROL XL) TAB PO SCH (08:29)
--- NOTE | 2022-10-20 08:49 | Progress Note - Cardiology ---
Cardiology SOAP Progress Note Subjective: Lying in bed C/O gen discomfort No c/o SOB this morning Objective: I&O/Vital Signs 10/20/22 10/21/22 10/21/22 10/21/22 23:30 01:00 03:59 07:00 Temp 36.8 36.7 Pulse 95 106 99 97 Resp 20 20 B/P (MAP) 123/83 (96) 123/77 (92) Pulse Ox 96 92 O2 Delivery Nasal Cannula Nasal Cannula O2 Flow Rate 1.50 1.50 10/21/22 08:01 Temp 36.3 Pulse 107 Resp 18 B/P (MAP) 133/85 (101) Pulse Ox 96 O2 Delivery Nasal Cannula O2 Flow Rate 0.50 10/21/22 00:00 Intake Total 982 ml Output Total 1400 ml Balance -418 ml Constitutional: AAO x 3, other (slow to respond, somnolent) Respiratory: other (diminshed lower lobes bilat) Cardiovascular: irregularly irregular, tachycardia, S1 and S2 Gastrointestional: audible bowel sounds Extremities: other (mod bilat LE swelling) Neurologic/Psychiatric: other (moves all limbs equally) Skin: No rash on exposed areas, No ulcerations on exposed areas Results/Procedures: Labs Laboratory Tests 10/20/22 10:45: White Blood Count 15.4H, Red Blood Count 4.43, Hemoglobin 12.6L, Hematocrit 41, Mean Corpuscular Volume 92, Mean Corpuscular Hemoglobin 28, Mean Corpuscular Hemoglobin Concent 31L, Red Cell Distribution Width 19.7H, Platelet Count 356, Mean Platelet Volume 11.3, Immature Granulocyte % (Auto) 1, Neutrophils (%) (Auto) 82H, Lymphocytes (%) (Auto) 8L, Monocytes (%) (Auto) 7, Eosinophils (%) (Auto) 2, Basophils (%) (Auto) 0, Neutrophils # (Auto) 12.6H, Lymphocytes # (Auto) 1.3, Monocytes # (Auto) 1.0, Eosinophils # (Auto) 0.4H, Basophils # (Auto) 0.1, Immature Granulocyte # (Auto) 0.1 10/21/22 04:16: White Blood Count 13.5H, Red Blood Count 4.29L, Hemoglobin 12.2L, Hematocrit 39L , Mean Corpuscular Volume 90, Mean Corpuscular Hemoglobin 28, Mean Corpuscular Hemoglobin Concent 31L, Red Cell Distribution Width 19.6H, Platelet Count 325, Mean Platelet Volume 11.0, Immature Granulocyte % (Auto) 1, Neutrophils (%) (Auto) 78H, Lymphocytes (%) (Auto) 10L, Monocytes (%) (Auto) 8, Eosinophils (%) (Auto) 2, Basophils (%) (Auto) 0, Neutrophils # (Auto) 10.6H, Lymphocytes # (Auto) 1.4, Monocytes # (Auto) 1.1H, Eosinophils # (Auto) 0.3, Basophils # (Auto) 0.1, Immature Granulocyte # (Auto) 0.1, Sodium Level 140, Potassium Level 3.6, Chloride Level 100, Carbon Dioxide Level 29, Anion Gap 11, Blood Urea Nitrogen 10, Creatinine 0.73, Estimat Glomerular Filtration Rate 116, BUN/Creatinine Ratio 14, Glucose Level 90, Calcium Level 9.3, Corrected Calcium 9.9, Magnesium Level 1.7, Total Bilirubin 1.4H, Aspartate Amino Transf (AST/SGOT) 30, Alanine Aminotransferase (ALT/SGPT) 24, Alkaline Phosphatase 175H , Total Protein 6.9, Albumin 3.2, Digoxin Level 0.31L Microbiology 10/12/22 Gram Stain - Final, Complete 10/12/22 Sputum Culture - Final, Complete Usual upper respiratory travis Staphylococcus aureus Haemophilus influenza A/P: Assessment: Acute respiratory failure requiring intubation - extubated 10-16-22 - multi-factorial d/t pneumonia and acute on chronic systolic CHF Acute on chronic systolic congestive heart failure - Echo was done in April 2022 with ejection fraction 40 to 45% with biatrial enlargement, moderate mitral regurgitation, pulmonary artery pressure 45 to 50 mmHg. - Echo of 10-11-[address] Hernandez showed LVEF 35-40%. Mod sized L pleural effusion. Mild MR. Mild to mod TR. Persistent/permanent atrial fibrillation/flutter - History of ablation done in [place] in late 2020, previously refusing any further ablation - Had been maintained on Eliquis (unsure of compliance) - changed to Xarelto this admission Nonischemic cardiomyopathy - cardiac catheterization done in [place] around 2019 did not show any obstructive disease. History of methamphetamine abuse. - Still using it intermittently, he was found to have methamphetamine in his pocket during this hospitalization EtOH abuse. Acute renal failure - renal function improved Hyperlipidemia Tobaccoism History of noncompliance with medication or medical instruction History of elevated liver enzymes. Probably underlying cirrhosis seen on CTA of the abdomen in the past. Plan: Complex management issue d/t issues noted above along with non-compliance, EtOH abuse, and continuing meth abuse HR improved today Continue Aldactone, NOLVIA and Lasix Continue SGLT2-inhibitors Monitor lab closely Replace electrolytes Xarelto for stroke stroke prophylaxis Clinical Quality Measures AMI/AHF: ASA po Prior to arrival: ANN Correa Oct 20, 2022 08:49
[2022-10-20] MEDS ORDERED: DIGOXIN 0.125 MG (LANOXIN) TAB PO ONE (09:15)
--- NOTE | 2022-10-20 09:55 | Progress Note - Hospitalist ---
JONO ROMANO 10/20/22 0955: Subjective HPI/CC On Admission Date Seen by Provider: Oct 20, 2022 Time Seen by Provider: 09:30 Chief complaint: Respiratory failure HPI: This is a 42-year-old male known meth user who presented to the ER with shortness of breath was found to have atrial fibrillation with rapid ventricular response with congestive heart failure and ultimately required intubation. He was found to have meth in his pockets and the police were called and took that supply. Subjective/Events-last exam No acute events overnight. Mr. Alexander reports some back pain this morning but is otherwise doing well. Denies chest pain, palpitations, shortness of breath. Tolerating diet w/o n/v. He worked with PT/OT yesterday and feels like muscle strength in his arms is improving. Review of systems: Negative except as described above. Objective Exam Vital Signs Vital Signs Date Time Temp Pulse Resp B/P (MAP) Pulse Ox O2 Delivery O2 Flow Rate FiO2 10/20/22 13:00 107 21 122/89 (100) 95 Nasal Cannula 2.00 10/20/22 12:00 36.6 10/16/22 09:35 30 Capillary Refill : Less Than 3 Seconds General Appearance: No Apparent Distress Respiratory: Normal Breath Sounds, No Accessory Muscle Use, No Respiratory Distress Cardiovascular: No Gallop, No Murmur, Irregularly Irregular Neurologic/Psychiatric: Alert, Motor Weakness Results/Procedures Lab Laboratory Tests 10/20/22 10:45 Patient resulted labs reviewed. Assessment/Plan Assessment and Plan Assess & Plan/Chief Complaint Assessment & Plan: 10/12: Appreciate Cardiology recommendations. Initially receiving IV lasix 40 mg daily, stopped and given bumetanide yesterday. 10/15: continued on bumetanide 10/16: patient going on day 8 for mechanical ventilation for agitated behavior due to meth with delirium. Staff report that he has had similar admissions in the past and is usually not agitated after several days of ventilation. He has no history of respiratory failure nor was he ventilated for this reason. His chest x-ray is unremarkable and physical examination from a cardiac and pulmonary standpoint are unremarkable. He does have history of dilated c ardiomyopathy with an ejection fraction of 35 to 40% on this hospital admission likely related to meth and/or alcohol there is no evidence for heart failure currently. He is ventilating easily with stable reasonable ABGs on 30% FiO2 and 5% PEEP we will plan on sedation vacation and extubation to follow as long as his behavior allows after discussion with nursing staff. 10/17: Patient extubated without difficulty alert oriented anxious but in no acute distress. 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 He voices understanding that meth is killing him and tells this examiner any way that he is through with use. He apparently has support through a local long-term that he plans on going back to. Off mechanical ventilation A. fib rate has increased will defer to cardiology about oral therapy for rate control likely beta-ryan in etiology. The patient does exhibit evidence for signifi cant deconditioning. We will have him sit up on the edge of the bed if he is able to ambulate to the commode nursing staff been instructed to discontinue his Locke if there is a bed on the floor pending cardiology evaluation and A. fib medication can be transferred to the floor. 10/18: Tachycardia as high as 137 bpm yesterday/overnight. Cardiology is following, and he is currently on metoprolol succinate, diltiazem, spironolactone, & PO Lasix. Oxygen saturation range 90-100 on 2L overnight. Plan to transfer to floor from ICU today. 10/19: We were hoping to transfer Mr. Alexander to the floor yesterday, but continued tachycardia as high as 137 bpm necessitated remaining in the ICU. K+ supplementation given today for K+ level of 3.3 on morning labs. As of yesterday 10/18, started lisinopril 2.5mg PO qday, increased metoprolol succinate from 25mg to 50mg PO qday, and started empagliflozin 10mg PO qday. Per cardiology recommendations, gave 0.25mg IV digoxin today for persistent tachycardia and a- fib, and discontinued diltiazem. Locke catheter removed today, and encouraged continued ambulation/working with PT/OT. 10/20: HR under better control after digoxin yesterday, although continues to be in a-fib. Adding daily digoxin per cardiology recommendations. Planning to transfer him to the floor today. (1) Hypotension, resolved Status: Acute Assessment & Plan: Worsening overnight 10/10-10/11, required norepinephrine, weaned back off at this time. (2) Respiratory failure, improving Status: Acute Assessment & Plan: Requiring intubation in ER due to agitation and apnea. Extubated 10/16. On room air and 2L at night. RR range 14-28 yesterday. O2 sat 95% on 2L by KS this morning. Qualifiers: Qualified Codes: J96.01 - Acute respiratory failure with hypoxia (3) HFrEF Status: Chronic (4) Non-ischemic cardiomyopathy Status: Chronic (5) Persistent atrial fibrillation Status: Chronic Assessment & Plan: Chronic, EF 40% in April 2022. Dilated cardiomyopathy likely d/t meth use. Cardiology is following, follow-up recs & see above. Currently on metoprolol succinate, lisinopril, digoxin, spironolactone, PO Lasix, & rivaroxaban. (6) Rhabdomyolysis Status: Acute Assessment & Plan: Difficult to manage given fluid overload suspected related to HF. 10/18: CK remains elevated at 339, but decreased from 570 yesterday. (7) Methamphetamine abuse Status: Chronic Assessment & Plan: Found to have methamphetamine on person while admitted. member services representative is following. (8) Acute kidney injury Status: Resolved Assessment & Plan: Worsening renal function as of 10/11/22, suspect due to hypotension. Norepinephrine started for hypotension. 10/12: worsening, difficult management given fluid overload present 10/13: improved today, good urine output 10/19: Locke catheter removed (9) HTN (hypertension) Status: Chronic (10) HLD (hyperlipidemia) Status: Chronic (11) DVT prophylaxis Status: Acute Assessment & Plan: rivaroxaban Clinical Quality Measures AMI/AHF: ASA po Prior to arrival: No ERIN COLE DO 10/21/22 0507: Subjective Subjective/Events-last exam Pt is doing a lot better Tachycardia continues Transferring to 4th floor Overall doing much better PT and OT will continue Supervisory-Addendum Brief Verification & Attestation Participated in pt care: history, MDM, physical Personally performed: exam, history, MDM, supervision of care Care discussed with: Medical Student Procedures: n/a Results interpretation: Verified all documentation Verification and Attestation of Medical Student E/M Service A medical student performed and documented this service in my presence. I reviewed and verified all information documented by the medical student and made modifications to such information, when appropriate. I personally performed the physical exam and medical decision making. Erin Cole, Oct 21, 2022,05:07 JONO ROMANO Oct 20, 2022 09:55 ERIN COLE DO Oct 21, 2022 05:07
[2022-10-20 10:50] LABS: BASOPHILS # (AUTO) 0.1 10^3/uL (0.0-0.1); BASOPHILS % (AUTO) 0 % (0-10); EOSINOPHILS # (AUTO) 0.4 10^3/uL (0.0-0.3); EOSINOPHILS % (AUTO) 2 % (0-10); HEMATOCRIT 41 % (40-54); HEMOGLOBIN 12.6 g/dL (13.3-17.7); LYMPHOCYTES # (AUTO) 1.3 10^3/uL (1.0-4.0); LYMPHOCYTES % (AUTO) 8 % (12-44); MEAN CORPUSCULAR HEMOGLOBIN 28 pg (25-34); MEAN CORPUSCULAR HGB CONC 31 g/dL (32-36); MEAN CORPUSCULAR VOLUME 92 fL (80-99); MEAN PLATELET VOLUME 11.3 fL (9.0-12.2); MONOCYTES % (AUTO) 7 % (0-12); NEUTROPHILS # (AUTO) 12.6 10^3/uL (1.8-7.8); NEUTROPHILS % (AUTO) 82 % (42-75); PLATELET COUNT 356 10^3/uL (130-400); WHITE BLOOD COUNT 15.4 10^3/uL (4.3-11.0)
[2022-10-20] MEDS ORDERED: DIGOXIN 0.25 MG (LANOXIN) TAB PO NR (11:30)
--- NOTE | 2022-10-20 12:51 | Occupational Ther Daily Note ---
OT Current Status-Daily Note Subjective Pt sleeping in bed, woke to name. Pt states that he has been trying to sleep and is continually being woken up. WAN encourages pt to participate in OT session, pt continues to fall asleep then mumble with eyes closed that he is too tired and wants to do it later. Mental Status/Objective Patient Orientation: Person, Unable to Assess Attachments: IV, Telemetry ADL-Treatment Therapy Code Descriptions/Definitions Functional Fletcher Measure: 0=Not Assessed/NA 4=Minimal Assistance 1=Total Assistance 5=Supervision or Setup 2=Maximal Assistance 6=Modified Fletcher 3=Moderate Assistance 7=Complete IndependenceSCALE: Activities may be completed with or without assistive devices. 9-Mxbmkniynz-pbuiodf completes the activity by him/herself with no assistance from a helper. 5-Set-up or Clean-up Assistance-helper sets up or cleans up; patient completes activity. [place] assists only prior to or following the activity. 4-Supervision or Touching Assistance-helper provides verbal cues and/or touching/steadying and/or contact guard assistance as patient completes activity. Assistance may be provided throughout the activity or intermittently. 3-Partial/Moderate Assistance-helper does LESS THAN HALF the effort. [place] lifts, holds or supports trunk or limbs, but provides less than half the effort. 2-Substantial/Maximal Assistance-helper does MORE THAN HALF the effort. [place] lifts or holds trunk or limbs and provides more than half the effort. 5-Wluqwwesm-ichkxd does ALL the effort. Patient does none of the effort to compl ete the activity. Or, the assistance of 2 or more helpers is required for the patient to complete the activity. If activity was not attempted, code reason: 7-Patient Refused. 9-Not Applicable-not attempted and the patient did not perform the activity before the current illness, exacerbation or injury. 10-Not Attempted due to Environmental Limitations-(lack of equipment, weather restraints, etc.). 88-Not Attempted due to Medical Conditions or Safety Concerns. Other Treatment Pt asks for Coke and nrsg approves. WAN went to get Coke and attempted to give it to pt. Pt stated that he did not want it he just wanted to sleep. After session, pt lying in bed with call light/phone in reach. All needs met in room. OT Short Term Goals Short Term Goals Time Frame: Nov 01, 2022 Eatin Oral hygiene: 3 Toileting hygiene: 2 Shower/bathe self: 2 Upper body dressin Lower body dressin Putting on/taking off footwear: 3 OT Welder Experimental Goals Intermediate Goals Time Frame: Nov 15, 2022 Eating (QC): 6 Oral Hygiene (QC): 6 Toileting Hygiene (QC): 5 Shower/Bathe Self (QC): 5 Upper Body Dressing (QC): 6 Lower Body Dressing (QC): 5 On/Off Footwear (QC): 5 Additional Goals: 1-Demonstrate ADL Tasks, 2-Verbalize Understanding, 3- ImproveStrength/Damien 1=Demonstrate adherence to instructed precautions during ADL tasks. 2=Patient will verbalize/demonstrate understanding of assistive devices/modifications for ADL. 3=Patient will improve strength/tolerance for activity to enable patient to perform ADL's. OT Education/Plan Problem List/Assessment Assessment: Decreased Activ Tolerance, Decreased Safety Aware, Impaired Bed Mobility, Impaired Cognition, Impaired Self-Care Skills Discharge Recommendations Plan/Recommendations: Continue POC Treatment Plan/Plan of Care Patient would benefit from OT for education, treatment and training to promote independence in ADL's, mobility, safety and/or upper extremity function for ADL's. Plan of Care: ADL Retraining, Functional Mobility, UE Funct Exercise/Act Treatment Duration: Nov 15, 2022 Frequency: 3 times per week (3-5x/week) Estimated Hrs Per Day: .25 hour per day Agreement: Yes Rehab Potential: Guarded Time Start Time: 11:35 Stop Time: 11:43 DATE: Oct 20, 2022 Total Time Billed (hr/min): 8 Billed Treatment Time 1 visit-FA 1 (8 min) DAKOTAH YANG Oct 20, 2022 12:51
--- NOTE | 2022-10-20 13:53 | Progress Note - Cardiology ---
Cardiology SOAP Progress Note Subjective: Gen weakness Finds it difficult to walk because of weakness No n/v/d No cp or palp Short of breath with activity No swelling Objective: I&O/Vital Signs 10/20/22 10/20/22 10/20/22 10/20/22 04:00 04:00 07:12 07:13 Temp 36.7 Pulse 93 93 Resp 16 B/P (MAP) 112/80 (91) Pulse Ox 94 95 O2 Delivery Nasal Cannula Nasal Cannula O2 Flow Rate 2.00 2.00 10/20/22 10/20/22 10/20/22 10/20/22 07:53 07:54 08:00 08:13 Temp 36.2 Pulse 126 Resp 26 B/P (MAP) 114/104 (107) Pulse Ox 87 95 96 O2 Delivery Room Air Nasal Cannula Nasal Cannula O2 Flow Rate 2.00 2.00 10/20/22 10/20/22 10/20/22 12:00 12:00 12:46 Temp 36.6 Pulse 121 112 Resp 20 B/P (MAP) 116/95 (102) Pulse Ox 96 O2 Delivery Nasal Cannula O2 Flow Rate 2.00 10/20/22 00:00 Intake Total 940 ml Output Total 1600 ml Balance -660 ml Constitutional: AAO x 3, other (slow to respond, somnolent) Respiratory: other (diminshed lower lobes bilat) Cardiovascular: irregularly irregular, tachycardia, S1 and S2 Gastrointestional: audible bowel sounds Extremities: other (mod bilat LE swelling) Neurologic/Psychiatric: other (moves all limbs equally) Skin: No rash on exposed areas, No ulcerations on exposed areas Results/Procedures: Labs Laboratory Tests 10/19/22 18:30: Glucometer 95 10/20/22 05:45: Magnesium Level 1.7 10/20/22 10:45: White Blood Count 15.4H, Red Blood Count 4.43, Hemoglobin 12.6L, Hematocrit 41, Mean Corpuscular Volume 92, Mean Corpuscular Hemoglobin 28, Mean Corpuscular Hemoglobin Concent 31L, Red Cell Distribution Width 19.7H, Platelet Count 356, Mean Platelet Volume 11.3, Immature Granulocyte % (Auto) 1, Neutrophils (%) (Auto) 82H, Lymphocytes (%) (Auto) 8L, Monocytes (%) (Auto) 7, Eosinophils (%) (Auto) 2, Basophils (%) (Auto) 0, Neutrophils # (Auto) 12.6H, Lymphocytes # (Auto) 1.3, Monocytes # (Auto) 1.0, Eosinophils # (Auto) 0.4H, Basophils # (Auto) 0.1, Immature Granulocyte # (Auto) 0.1 Microbiology 10/12/22 Gram Stain - Final, Complete 10/12/22 Sputum Culture - Final, Complete Usual upper respiratory travis Staphylococcus aureus Haemophilus influenza Laboratory Tests 10/19/22 04:02 10/20/22 10:45 A/P: Assessment: Acute respiratory failure requiring intubation - extubated 10-16-22 - multi-factorial d/t pneumonia and acute on chronic systolic CHF Acute on chronic systolic congestive heart failure - Echo was done in April 2022 with ejection fraction 40 to 45% with biatrial enlargement, moderate mitral regurgitation, pulmonary artery pressure 45 to 50 mmHg. - Echo of 10-11-[address] Hernandez showed LVEF 35-40%. Mod sized L pleural effusion. Mild MR. Mild to mod TR. Persistent/permanent atrial fibrillation/flutter - History of ablation done in [place] in late 2020, previously refusing any further ablation - Had been maintained on Eliquis (unsure of compliance) - changed to Xarelto this admission Nonischemic cardiomyopathy - cardiac catheterization done in [place] around 2019 did not show any obstructive disease. History of methamphetamine abuse. - Still using it intermittently, he was found to have methamphetamine in his pocket during this hospitalization EtOH abuse. Acute renal failure - renal function improved Hyperlipidemia Tobaccoism History of noncompliance with medication or medical instruction History of elevated liver enzymes. Probably underlying cirrhosis seen on CTA of the abdomen in the past. Plan: Complex management issue d/t issues noted above along with non-compliance, EtOH abuse, and continuing meth abuse HR still not well controlled. Add daily dig Continue Aldactone, NOLVIA and Lasix Continue SGLT2-inhibitors Monitor lab closely Replace electrolytes Xarelto for stroke stroke prophylaxis Clinical Quality Measures AMI/AHF: ASA po Prior to arrival: SAVI Cheng MD FACP [facility] Oct 20, 2022 13:53
--- NOTE | 2022-10-20 14:50 | Physical Therapy Daily Note ---
PT Daily Note-Current Subjective Patient lying supine in bed upon PT arrival, agreeable to treatment. States "I've been laying in my urine for 2 hours." Patient urinal was on his table with ~300 cc's at that time. Pain Section J - Health Conditions 1. Rarely or not at all 2. Occasionally 3. Frequently 4. Almost constantly 8. Unable to answer Pain Effect on Sleep: 1 Pain Interference with Therapy: 2 Pain Interference w/Day-to-Day: 2 Mental Status Patient Orientation: Person Transfers SCALE: Activities may be completed with or without assistive devices. 4-Qglwvgkszq-fqooujs completes the activity by him/herself with no assistance from a helper. 5-Set-up or Clean-up Assistance-helper sets up or cleans up; patient completes activity. [place] assists only prior to or following the activity. 4-Supervision or Touching Assistance-helper provides verbal cues and/or touching/steadying and/or contact guard assistance as patient completes activity. Assistance may be provided throughout the activity or intermittently. 3-Partial/Moderate Assistance-helper does LESS THAN HALF the effort. [place] lifts, holds or supports trunk or limbs, but provides less than half the effort. 2-Substantial/Maximal Assistance-helper does MORE THAN HALF the effort. [place] lifts or holds trunk or limbs and provides more than half the effort. 8-Vjeqriwac-ykfnag does ALL the effort. Patient does none of the effort to complete the activity. Or, the assistance of 2 or more helpers is required for the patient to complete the activity. If activity was not attempted, code reason: 7-Patient Refused. 9-Not Applicable-not attempted and the patient did not perform the activity before the current illness, exacerbation or injury. 10-Not Attempted due to Environmental Limitations-(lack of equipment, weather restraints, etc.). 88-Not Attempted due to Medical Conditions or Safety Concerns. Roll Left & Right (QC): 2 Sit to Lying (QC): 1 Lying to Sitting/Side of Bed(Q: 1 Sit to Stand (QC): 2 Chair/Cth-tj-Jluec Xfer(QC): 1 Gait Training Does the Patient Walk?: No and Walking Goal IS indicated Assessment Current Status: Poor Progress Patient required max/total assistance x 2 for bed mobility and cleaning. He was incontinent, however it appears he may have been using the urinal and spilled it. Patient performs transfers with max/total A. Upon SPT to chair, patients right LE gave out and he initially sat on the arm of the chair. He was slid to the appropriate position in the chair. Patient in chair post treatment with all needs met, nursing notified, call light in hand, and phone in reach. PT Snf Goals Snf Goals PT Scale Clerk Goals Time Frame: Nov 06, 2022 Roll Left & Right (QC): 6 Sit to Lying (QC): 6 Lying-Sitting on Side/Bed(QC): 6 Sit to Stand (QC): 4 Chair/Pto-jl-Qwmtm Xfer(QC): 4 Toilet Transfer (QC): 4 Walk 10 feet (QC): 4 Walk 50ft with 2 Turns (QC): 4 Walk 150 ft (QC): 4 PT Plan Treatment/Plan Treatment Plan: Continue Plan of Care Treatment Plan: Bed Mobility, Education, Functional Activity Damien, Functional Strength, Gait, Safety, Therapeutic Exercise, Transfers Treatment Duration: Nov 06, 2022 Frequency: 6 times per week Estimated Hrs Per Day: .25 hour per day Safety Risks/Education Patient Education: Transfer Techniques Teaching Recipient: Patient Teaching Methods: Demonstration, Discussion Response to Teaching: Reinforcement Needed Time Time In: 1335 Time Out: 1400 DATE: Oct 20, 2022 Total Billed Treatment Time: 25 Total Billed Treatment Visit, FA (2) IBRAHIMA SAMPSON PT Oct 20, 2022 14:50
[2022-10-20 15:52] VITALS: BP 135/89
[2022-10-20] MEDS: RIVAROXABAN 20 MG TABLET (XARELTO) PO SCH (16:14)
[2022-10-20 19:23] VITALS: BP 128/75
[2022-10-20] MEDS: rOPINIRole 0.25 MG (REQUIP) TAB PO SCH (20:18)
[2022-10-20] MEDS: MIRTAZAPINE 15 MG (REMERON) TAB PO SCH (20:18)
[2022-10-20 23:30] VITALS: BP 123/83
[2022-10-21] VITALS (7 sets, daily range): BP systolic 109–133; BP diastolic 66–88
[2022-10-21 04:25] LABS: BASOPHILS # (AUTO) 0.1 10^3/uL (0.0-0.1); BASOPHILS % (AUTO) 0 % (0-10); EOSINOPHILS # (AUTO) 0.3 10^3/uL (0.0-0.3); EOSINOPHILS % (AUTO) 2 % (0-10); HEMATOCRIT 39 % (40-54); HEMOGLOBIN 12.2 g/dL (13.3-17.7); LYMPHOCYTES # (AUTO) 1.4 10^3/uL (1.0-4.0); LYMPHOCYTES % (AUTO) 10 % (12-44); MEAN CORPUSCULAR HEMOGLOBIN 28 pg (25-34); MEAN CORPUSCULAR HGB CONC 31 g/dL (32-36); MEAN CORPUSCULAR VOLUME 90 fL (80-99); MONOCYTES # (AUTO) 1.1 10^3/uL (0.0-1.0); MONOCYTES % (AUTO) 8 % (0-12); NEUTROPHILS # (AUTO) 10.6 10^3/uL (1.8-7.8); NEUTROPHILS % (AUTO) 78 % (42-75); PLATELET COUNT 325 10^3/uL (130-400); WHITE BLOOD COUNT 13.5 10^3/uL (4.3-11.0)
[2022-10-21 05:05] LABS: ALBUMIN 3.2 GM/DL (3.2-4.5)
[2022-10-21 05:06] LABS: POTASSIUM 3.6 MMOL/L (3.6-5.0)
[2022-10-21 05:07] LABS: CALCIUM 9.3 MG/DL (8.5-10.1)
[2022-10-21 05:08] LABS: TOTAL PROTEIN 6.9 GM/DL (6.4-8.2)
[2022-10-21 05:10] LABS: BILIRUBIN,TOTAL 1.4 MG/DL (0.1-1.0)
[2022-10-21 05:12] LABS: CREATININE SERUM 0.73 MG/DL (0.60-1.30)
[2022-10-21 05:15] LABS: MAGNESIUM 1.7 MG/DL (1.6-2.4)
[2022-10-21] MEDS: KCL 20 MEQ TAB (K-DUR) PO SCH (05:41)
[2022-10-21] MEDS: DIGOXIN 0.25 MG (LANOXIN) TAB PO SCH (09:12)
[2022-10-21] MEDS: SERTRALINE 50 MG (ZOLOFT) TABLET PO SCH (09:12)
[2022-10-21] MEDS: EMPAGLIFLOZIN 10 MG TABLET (JARDIANCE) PO SCH (09:12)
[2022-10-21] MEDS: polyethylene glycoL POWDER 17 GM (MIRALAX) PACK PO SCH (09:12)
[2022-10-21] MEDS: meTOproloL SUCCINATE 50 MG (TOPROL XL) TAB PO SCH (09:12)
[2022-10-21] MEDS: PANTOPRAZOLE 40 MG (PROTONIX) TAB PO SCH (09:12)
[2022-10-21] MEDS: FUROSEMIDE 40 MG (LASIX) TAB PO SCH (09:12)
[2022-10-21] MEDS: lisINopril 5 MG (PRINIVIL) TABLET PO SCH (09:12)
[2022-10-21] MEDS: metFORMIN XR 500 MG (GLUCOPHAGE XR) TAB PO SCH ×2 (09:12→19:57)
[2022-10-21] MEDS: GABAPENTIN 600 MG (NEURONTIN) TAB PO SCH ×3 (09:13→19:57)
[2022-10-21] MEDS: OLANZapine 5 MG ODT (ZyPREXA ZYDIS) PO SCH (09:13)
[2022-10-21] MEDS: LORazepam 1 MG (ATIVAN) TAB PO SCH ×2 (09:13→19:58)
[2022-10-21] MEDS: SPIRONOLACTONE 25 MG (ALDACTONE) TAB PO SCH (09:13)
[2022-10-21] MEDS: DOCUSATE SODIUM 100 MG (COLACE) CAP PO SCH ×2 (09:13→19:57)
--- NOTE | 2022-10-21 10:06 | Progress Note - Cardiology ---
Cardiology SOAP Progress Note Objective: I&O/Vital Signs 10/21/22 10/22/22 10/22/22 10/22/22 23:27 01:00 03:15 03:30 Temp 36.3 Pulse 82 81 99 99 Resp 16 14 14 B/P (MAP) 118/76 (90) 111/88 (96) 107/81 (90) Pulse Ox 95 93 95 O2 Delivery Room Air Room Air Room Air 10/22/22 10/22/22 10/22/22 10/22/22 03:34 03:45 04:00 04:00 Temp 36.1 36.9 Pulse 88 96 82 Resp 18 14 14 B/P (MAP) 112/78 (89) 110/79 (89) 111/80 (90) Pulse Ox 96 95 95 O2 Delivery Nasal Cannula Room Air Room Air O2 Flow Rate 2.00 10/22/22 10/22/22 10/22/22 10/22/22 04:09 04:30 04:45 05:00 Pulse 88 77 81 Resp 15 18 B/P (MAP) 112/78 113/73 (86) 114/77 (89) Pulse Ox 94 95 96 O2 Delivery Room Air Room Air Room Air 10/22/22 10/22/22 10/22/22 10/22/22 06:00 07:00 07:00 08:00 Pulse 81 82 83 85 Resp 15 18 16 B/P (MAP) 112/79 (90) 123/86 (98) 122/80 (94) Pulse Ox 93 90 96 O2 Delivery Room Air Nasal Cannula Nasal Cannula O2 Flow Rate 2.00 2.00 10/22/22 00:00 Intake Total 1710 ml Output Total 3135 ml Balance -1425 ml Constitutional: AAO x 3, other (slow to respond, somnolent) Respiratory: other (diminshed lower lobes bilat) Cardiovascular: irregularly irregular, tachycardia, S1 and S2 Gastrointestional: audible bowel sounds Extremities: other (mod bilat LE swelling) Neurologic/Psychiatric: other (moves all limbs equally) Skin: No rash on exposed areas, No ulcerations on exposed areas Results/Procedures: Labs Laboratory Tests 10/22/22 03:50: White Blood Count 12.1H, Red Blood Count 4.19L, Hemoglobin 11.7L, Hematocrit 38L , Mean Corpuscular Volume 91, Mean Corpuscular Hemoglobin 28, Mean Corpuscular Hemoglobin Concent 31L, Red Cell Distribution Width 19.6H, Platelet Count 416H, Mean Platelet Volume 11.7, Immature Granulocyte % (Auto) 1, Neutrophils (%) (Auto) 76H, Lymphocytes (%) (Auto) 13, Monocytes (%) (Auto) 8, Eosinophils (%) (Auto) 3, Basophils (%) (Auto) 0, Neutrophils # (Auto) 9.1H, Lymphocytes # (Auto) 1.5, Monocytes # (Auto) 1.0, Eosinophils # (Auto) 0.3, Basophils # (Auto) 0.0, Immature Granulocyte # (Auto) 0.1, Sodium Level 139, Potassium Level 3.4L, Chloride Level 98, Carbon Dioxide Level 30, Anion Gap 11, Blood Urea Nitrogen 10, Creatinine 0.79, Estimat Glomerular Filtration Rate 113, BUN/Creatinine Ratio 13, Glucose Level 104, Calcium Level 9.3, Corrected Calcium 9.9, Total Bilirubin 1.5H, Aspartate Amino Transf (AST/SGOT) 27, Alanine Aminotransferase (ALT/SGPT) 24, Alkaline Phosphatase 182H, Total Protein 6.8, Albumin 3.2 Microbiology 10/12/22 Gram Stain - Final, Complete 10/12/22 Sputum Culture - Final, Complete Usual upper respiratory travis Staphylococcus aureus Haemophilus influenza A/P: Assessment: Acute respiratory failure requiring intubation - extubated 10-16-22 - multi-factorial d/t pneumonia and acute on chronic systolic CHF Acute on chronic systolic congestive heart failure - Echo was done in April 2022 with ejection fraction 40 to 45% with biatrial enlargement, moderate mitral regurgitation, pulmonary artery pressure 45 to 50 mmHg. - Echo of 10-11-[address] Hernandez showed LVEF 35-40%. Mod sized L pleural effusion. Mild MR. Mild to mod TR. Persistent/permanent atrial fibrillation/flutter - History of ablation done in [place] in late 2020, previously refusing any further ablation - Had been maintained on Eliquis (unsure of compliance) - changed to Xarelto this admission Nonischemic cardiomyopathy - cardiac catheterization done in [place] around 2019 did not show any obstructive disease. History of methamphetamine abuse. - Still using it intermittently, he was found to have methamphetamine in his pocket during this hospitalization EtOH abuse. Acute renal failure - renal function improved Hyperlipidemia Tobaccoism History of noncompliance with medication or medical instruction History of elevated liver enzymes. Probably underlying cirrhosis seen on CTA of the abdomen in the past. Plan: Complex management issue d/t issues noted above along with non-compliance, EtOH abuse, and continuing meth abuse HR improved with addition of Digoxin Continue Aldactone, NOLVIA and Lasix Continue SGLT2-inhibitors Monitor lab closely Replace electrolytes as indicated Xarelto for stroke stroke prophylaxis Clinical Quality Measures AMI/AHF: ASA po Prior to arrival: ANN Correa Oct 21, 2022 10:06
--- NOTE | 2022-10-21 12:21 | Progress Note - Cardiology ---
Cardiology SOAP Progress Note Subjective: Gen weakness, more marked in both legs No n/v/d No cp or palp Shortness of breath with activity No swelling Objective: I&O/Vital Signs 10/21/22 10/21/22 10/21/22 10/21/22 01:00 03:59 07:00 08:01 Temp 36.7 36.3 Pulse 106 99 97 107 Resp 20 18 B/P (MAP) 123/77 (92) 133/85 (101) Pulse Ox 92 96 O2 Delivery Nasal Cannula Nasal Cannula O2 Flow Rate 1.50 0.50 10/21/22 10/21/22 10:49 12:09 Temp 36.2 Pulse 102 Resp 18 B/P (MAP) 130/88 (102) Pulse Ox 95 95 O2 Delivery Nasal Cannula Nasal Cannula O2 Flow Rate 0.50 0.50 10/21/22 00:00 Intake Total 982 ml Output Total 1400 ml Balance -418 ml Constitutional: AAO x 3, other (slow to respond, somnolent) Respiratory: other (diminshed lower lobes bilat) Cardiovascular: irregularly irregular, tachycardia, S1 and S2 Gastrointestional: audible bowel sounds Extremities: other (mod bilat LE swelling) Neurologic/Psychiatric: other (moves all limbs equally) Skin: No rash on exposed areas, No ulcerations on exposed areas Results/Procedures: Labs Laboratory Tests 10/21/22 04:16: White Blood Count 13.5H, Red Blood Count 4.29L, Hemoglobin 12.2L, Hematocrit 39L , Mean Corpuscular Volume 90, Mean Corpuscular Hemoglobin 28, Mean Corpuscular Hemoglobin Concent 31L, Red Cell Distribution Width 19.6H, Platelet Count 325, Mean Platelet Volume 11.0, Immature Granulocyte % (Auto) 1, Neutrophils (%) (Auto) 78H, Lymphocytes (%) (Auto) 10L, Monocytes (%) (Auto) 8, Eosinophils (%) (Auto) 2, Basophils (%) (Auto) 0, Neutrophils # (Auto) 10.6H, Lymphocytes # (Auto) 1.4, Monocytes # (Auto) 1.1H, Eosinophils # (Auto) 0.3, Basophils # (Auto) 0.1, Immature Granulocyte # (Auto) 0.1, Sodium Level 140, Potassium Level 3.6, Chloride Level 100, Carbon Dioxide Level 29, Anion Gap 11, Blood Urea Nitrogen 10, Creatinine 0.73, Estimat Glomerular Filtration Rate 116, BUN/Creatinine Ratio 14, Glucose Level 90, Calcium Level 9.3, Corrected Calcium 9.9, Magnesium Level 1.7, Total Bilirubin 1.4H, Aspartate Amino Transf (AST/SGOT) 30, Alanine Aminotransferase (ALT/SGPT) 24, Alkaline Phosphatase 175H , Total Protein 6.9, Albumin 3.2, Digoxin Level 0.31L Microbiology 10/12/22 Gram Stain - Final, Complete 10/12/22 Sputum Culture - Final, Complete Usual upper respiratory travis Staphylococcus aureus Haemophilus influenza Laboratory Tests 10/20/22 10:45 10/21/22 04:16 A/P: Assessment: Acute respiratory failure requiring intubation - extubated 10-16-22 - multi-factorial d/t pneumonia and acute on chronic systolic CHF Acute on chronic systolic congestive heart failure - Echo was done in April 2022 with ejection fraction 40 to 45% with biatrial enlargement, moderate mitral regurgitation, pulmonary artery pressure 45 to 50 mmHg. - Echo of 10-11-[address] Hernandez showed LVEF 35-40%. Mod sized L pleural effusion. Mild MR. Mild to mod TR. Persistent/permanent atrial fibrillation/flutter - History of ablation done in [place] in late 2020, previously refusing any further ablation - Had been maintained on Eliquis (unsure of compliance) - changed to Xarelto this admission Nonischemic cardiomyopathy - cardiac catheterization done in [place] around 2019 did not show any obstructive disease. History of methamphetamine abuse. - Still using it intermittently, he was found to have methamphetamine in his pocket during this hospitalization EtOH abuse. Acute renal failure - renal function improved Hyperlipidemia Tobaccoism History of noncompliance with medication or medical instruction History of elevated liver enzymes. Probably underlying cirrhosis seen on CTA of the abdomen in the past. Plan: Complex management issue d/t issues noted above along with non-compliance, EtOH abuse, and continuing meth abuse HR improved with addition of Digoxin Continue Aldactone, NOLVIA and Lasix Continue SGLT2-inhibitors Monitor lab closely Replace electrolytes as indicated Xarelto for stroke stroke prophylaxis Clinical Quality Measures AMI/AHF: ASA po Prior to arrival: SAVI Cheng MD FACP FAC CCDS Oct 21, 2022 12:21
--- NOTE | 2022-10-21 12:33 | Progress Note - Hospitalist ---
JONO ROMANO 10/21/22 1233: Subjective HPI/CC On Admission Date Seen by Provider: Oct 21, 2022 Time Seen by Provider: 11:30 Chief complaint: Respiratory failure HPI: This is a 42-year-old male known meth user who presented to the ER with shortness of breath was found to have atrial fibrillation with rapid ventricular response with congestive heart failure and ultimately required intubation. He was found to have meth in his pockets and the police were called and took that supply. Subjective/Events-last exam No acute events overnight. Mr. Alexander endorses palpitations and continued bilat eral arm weakness (although feels this is slowly improving), but denies chest pain & shortness of breath. Tolerating diet w/o nausea or vomiting. He was able to work with PT yesterday, although did not wish to work with OT d/t tiredness. Review of systems: Negative except as described above. Objective Exam Vital Signs Vital Signs Date Time Temp Pulse Resp B/P (MAP) Pulse Ox O2 Delivery O2 Flow Rate FiO2 10/21/22 12:09 36.2 102 18 130/88 (102) 95 Nasal Cannula 0.50 10/16/22 09:35 30 Capillary Refill : Less Than 3 Seconds General Appearance: No Apparent Distress Respiratory: Lungs Clear, Normal Breath Sounds, No Accessory Muscle Use, No Respiratory Distress Cardiovascular: No Gallop, No Murmur, Irregularly Irregular Neurologic/Psychiatric: Motor Weakness Results/Procedures Lab Laboratory Tests 10/21/22 04:16 Patient resulted labs reviewed. Assessment/Plan Assessment and Plan Assess & Plan/Chief Complaint Assessment & Plan: 10/12: Appreciate Cardiology recommendations. Initially receiving IV lasix 40 mg daily, stopped and given bumetanide yesterday. 10/15: continued on bumetanide 10/16: patient going on day 8 for mechanical ventilation for agitated behavior due to meth with delirium. Staff report that he has had similar admissions in the past and is usually not agitated after several days of ventilation. He has no history of respiratory failure nor was he ventilated for this reason. His chest x-ray is unremarkable and physical examination from a cardiac and pulmonary standpoint are unremarkable. He does have history of dilated cardiomyopathy with an ejection fraction of 35 to 40% on this hospital admission likely related to meth and/or alcohol there is no evidence for heart failure currently. He is ventilating easily with stable reasonable ABGs on 30% FiO2 and 5% PEEP we will plan on sedation vacation and extubation to follow as long as his behavior allows after discussion with nursing staff. 10/17: Patient extubated without difficulty alert oriented anxious but in no acute distress. 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 He voices understanding that meth is killing him and tells this examiner any way that he is through with use. He apparently has support through a local half-way that he plans on going back to. Off mechanical ventilation A. fib rate has increased will defer to cardiology about oral therapy for rate control likely beta-ryan in etiology. The patient does exhibit evidence for significant deconditioning. We will have him sit up on the edge of the bed if he is able to ambulate to the commode nursing staff been instructed to discontinue his Locke if there is a bed on the floor pending cardiology evaluation and A. fib medication can be transferred to the floor. 10/18: Tachycardia as high as 137 bpm yesterday/overnight. Cardiology is following, and he is currently on metoprolol succinate, diltiazem, spironolactone, & PO Lasix. Oxygen saturation range 90-100 on 2L overnight. Plan to transfer to floor from ICU today. 10/19: We were hoping to transfer Mr. Alexander to the floor yesterday, but continued tachycardia as high as 137 bpm necessitated remaining in the ICU. K+ supplementation given today for K+ level of 3.3 on morning labs. As of yesterday 10/18, started lisinopril 2.5mg PO qday, increased metoprolol succinate from 25mg to 50mg PO qday, and started empagliflozin 10mg PO qday. Per cardiology recommendations, gave 0.25mg IV digoxin today for persistent tachycardia and a- fib. Locke catheter removed today, and encouraged continued ambulation/working with PT/OT. 10/20: HR under better control after digoxin yesterday, although continues to be in a-fib. Adding daily digoxin per cardiology recommendations. Planning to transfer him to the floor today. 10/21: HR continues to be controlled with daily digoxin (HR range 93-126 yesterday, 99 this morning). No changes in cardiology recs. Working with vp digital marketing social media and crm on placement at treatment facility ([facility] or [facility]), vs possible inpatient rehab stay. (1) Hypotension, resolved Status: Acute Assessment & Plan: Worsening overnight 10/10-10/11, required norepinephrine, weaned back off at this time. (2) Respiratory failure, improving Status: Acute Assessment & Plan: Requiring intubation in ER due to agitation and apnea. Extubated 10/16. On room air and 2L at night. RR range 16-26 yesterday. O2 sat 92% on 1.5L by NC this morning. Qualifiers: Qualified Codes: J96.01 - Acute respiratory failure with hypoxia (3) HFrEF Status: Chronic (4) Non-ischemic cardiomyopathy Status: Chronic (5) Persistent atrial fibrillation Status: Chronic Assessment & Plan: Chronic, EF 40% in April 2022. Dilated cardiomyopathy likely d/t meth use. Cardiology is following, follow-up recs & see above. Currently on metoprolol succinate, lisinopril, digoxin, diltiazem, spironolactone, PO Lasix, & rivaroxaban. (6) Rhabdomyolysis Status: Acute Assessment & Plan: Difficult to manage given fluid overload suspected related to HF. 10/18: CK remains elevated at 339, but decreased from 570 yesterday. (7) Methamphetamine abuse Status: Chronic Assessment & Plan: Found to have methamphetamine on person while admitted. regulatory services consultant is following. (8) Acute kidney injury Status: Resolved Assessment & Plan: Worsening renal function as of 10/11/22, suspect due to hypotension. Norepinephrine started for hypotension. 10/12: worsening, difficult management given fluid overload present 10/13: improved today, good urine output 10/19: Locke catheter removed (9) HTN (hypertension) Status: Chronic (10) HLD (hyperlipidemia) Status: Chronic (11) DVT prophylaxis Status: Acute Assessment & Plan: rivaroxaban Clinical Quality Measures AMI/AHF: ASA po Prior to arrival: No ERIN COLE DO 10/22/22 0516: Subjective Subjective/Events-last exam No major issues Awaiting rehab placement Objective Exam General Appearance: No Apparent Distress, WD/WN, Chronically ill Assessment/Plan Assessment and Plan Assess & Plan/Chief Complaint Appointment rehab placement Supervisory-Addendum Brief Verification & Attestation Participated in pt care: history, MDM, physical Personally performed: exam, history, MDM, supervision of care Care discussed with: Medical Student Procedures: n/a Results interpretation: Verified all documentation Verification and Attestation of Medical Student E/M Service A medical student performed and documented this service in my presence. I reviewed and verified all information documented by the medical student and made modifications to such information, when appropriate. I personally performed the physical exam and medical decision making. Erin Cole, Oct 22, 2022,05:15 JONO ROMANO Oct 21, 2022 12:33 ERIN COLE DO Oct 22, 2022 05:16
--- NOTE | 2022-10-21 14:05 | Occ Therapy Progress Note ---
Therapy Progress Note Pt refused therapy. Pt mumbling and difficult to understand. Asked pt about pain and pt stated that his elbow/knee hurts. Stated that he wanted a shower, pt is unsafe to complete this task. Nrs to check with pt about receiving bedbath. 1 refusal [id number] DAKOTAH YANG Oct 21, 2022 14:04
--- NOTE | 2022-10-21 14:10 | Physical Therapy Progress Note ---
Therapy Progress Note Attempted to see patient x 2. He refused the initial attempt due to pain in the right elbow and right knee. Second attempt, accompanied by [facility], patient refused stating he wants to take a shower. Due to his poor sitting and standing balance, patient was advised against taking a shower at this time. However nursing was notified and informed of patients request. Will attempt treatment again tomorrow and progress per patient tolerance. IBRAHIMA SAMPSON PT Oct 21, 2022 14:10
[2022-10-21] MEDS: RIVAROXABAN 20 MG TABLET (XARELTO) PO SCH (17:42)
[2022-10-21] MEDS: rOPINIRole 0.25 MG (REQUIP) TAB PO SCH (19:58)
[2022-10-21] MEDS: MIRTAZAPINE 15 MG (REMERON) TAB PO SCH (19:58)
[2022-10-22] MEDS ORDERED: AMIODARONE FOR BOLUS 150 MG in NS (IVPB) 100 ML IV ONE (03:15)
[2022-10-22 03:34] VITALS: BP 112/78
[2022-10-22] MEDS ORDERED: AMIODARONE (Pyxis Kit Only) BOLUS 150 MG/3 ML IV ONE (03:57)
[2022-10-22] MEDS ORDERED: AMIODARONE (Pyxis Kit Only) DRIP 450 MG/9 ML VIAL IV ONE (03:57)
[2022-10-22] MEDS ORDERED: D5W IV SOLUTION (EXCEL) 250 ML IV ONE (04:00)
[2022-10-22] MEDS ORDERED: NS (IVPB) 100 ML ONE (04:00)
[2022-10-22] MEDS: HYDROmorphone 2 MG/ML VIAL (DILAUDID) IV PRN ×2 (04:30→22:17)
[2022-10-22] MEDS ORDERED: AMIODARONE INJECTION 450 MG in D5W IV SOLUTION (EXCEL) 250 ML IV SCH (04:45)
[2022-10-22 04:46] LABS: BASOPHILS % (AUTO) 0 % (0-10); EOSINOPHILS # (AUTO) 0.3 10^3/uL (0.0-0.3); EOSINOPHILS % (AUTO) 3 % (0-10); HEMATOCRIT 38 % (40-54); HEMOGLOBIN 11.7 g/dL (13.3-17.7); LYMPHOCYTES # (AUTO) 1.5 10^3/uL (1.0-4.0); LYMPHOCYTES % (AUTO) 13 % (12-44); MEAN CORPUSCULAR HEMOGLOBIN 28 pg (25-34); MEAN CORPUSCULAR HGB CONC 31 g/dL (32-36); MEAN CORPUSCULAR VOLUME 91 fL (80-99); MEAN PLATELET VOLUME 11.7 fL (9.0-12.2); MONOCYTES % (AUTO) 8 % (0-12); NEUTROPHILS # (AUTO) 9.1 10^3/uL (1.8-7.8); NEUTROPHILS % (AUTO) 76 % (42-75); PLATELET COUNT 416 10^3/uL (130-400); WHITE BLOOD COUNT 12.1 10^3/uL (4.3-11.0)
[2022-10-22 05:04] LABS: ALBUMIN 3.2 GM/DL (3.2-4.5); BILIRUBIN,TOTAL 1.5 MG/DL (0.1-1.0); CALCIUM 9.3 MG/DL (8.5-10.1); CREATININE SERUM 0.79 MG/DL (0.60-1.30); POTASSIUM 3.4 MMOL/L (3.6-5.0); TOTAL PROTEIN 6.8 GM/DL (6.4-8.2)
[2022-10-22] MEDS ORDERED: KCL 20 MEQ TAB (K-DUR) PO ONE (05:30)
[2022-10-22] MEDS ORDERED: NS IV 500 ML 500 ML IV PRN ×2 (05:30→06:15)
[2022-10-22] MEDS: MAGNESIUM 1 GM/100 ML IVPB 100 ML IV SCH (05:48)
[2022-10-22] MEDS: POTASSIUM CL 10MEQ/50ML IVPB 50 ML IV SCH (05:48)
[2022-10-22] MEDS: KCL 20 MEQ TAB (K-DUR) PO SCH ×2 (05:48→05:54)
[2022-10-22] MEDS: LORazepam 1 MG (ATIVAN) TAB PO PRN ×2 (05:54→12:18)
--- NOTE | 2022-10-22 06:36 | Occ Therapy Progress Note ---
Therapy Progress Note Due to decline in medical status, OT to dismiss services at this time. Pt will need new orders when medically stable and able to actively participate in skilled therapy. DAKOTAH YANG Oct 22, 2022 06:36
[2022-10-22] MEDS: SPIRONOLACTONE 25 MG (ALDACTONE) TAB PO SCH (08:06)
[2022-10-22] MEDS: FUROSEMIDE 40 MG (LASIX) TAB PO SCH (08:06)
[2022-10-22] MEDS: OLANZapine 5 MG ODT (ZyPREXA ZYDIS) PO SCH (08:06)
[2022-10-22] MEDS: DOCUSATE SODIUM 100 MG (COLACE) CAP PO SCH ×2 (08:06→20:56)
[2022-10-22] MEDS: metFORMIN XR 500 MG (GLUCOPHAGE XR) TAB PO SCH ×2 (08:06→20:56)
[2022-10-22] MEDS: PANTOPRAZOLE 40 MG (PROTONIX) TAB PO SCH (08:06)
[2022-10-22] MEDS: SERTRALINE 50 MG (ZOLOFT) TABLET PO SCH (08:06)
[2022-10-22] MEDS: DIGOXIN 0.25 MG (LANOXIN) TAB PO SCH (08:06)
[2022-10-22] MEDS: EMPAGLIFLOZIN 10 MG TABLET (JARDIANCE) PO SCH (08:06)
[2022-10-22] MEDS: meTOproloL SUCCINATE 50 MG (TOPROL XL) TAB PO SCH (08:06)
[2022-10-22] MEDS: lisINopril 5 MG (PRINIVIL) TABLET PO SCH (08:06)
[2022-10-22] MEDS: GABAPENTIN 600 MG (NEURONTIN) TAB PO SCH ×3 (08:06→20:57)
[2022-10-22] MEDS: polyethylene glycoL POWDER 17 GM (MIRALAX) PACK PO SCH (08:12)
--- NOTE | 2022-10-22 09:03 | Tele-ICU Progress Note ---
Subjective Date Seen by a Provider: Oct 22, 2022 Subjective/Events-last exam This virtual visit was conducted using real time audio/video. Thank you for asking us to see this patient for respiratory insufficiency, urgent intubation 10/08/2022 in ER to protect airway. Admitted w ac on chr CHF, CMP, chest pain , agitation, meth usage, pna, afib. Extubated 10/16, now returned today 10/22 to ICU with v. tach. PE: obese, comfortable. VSS. O2 sat 97% on 2 LPM HEENT: No obvious masses, adenopathy or JVD. Chest: diminished breath sounds. CV: irreg. S1 S2 No murmur or added sounds. Abd: Non-tender. Bowel sounds Y. : Unremarkable. Locke N. BREAD ICER/psychiatric: Grossly intact. No obvious focal findings. Extremities: trace edema. Capillary refill < 3 seconds. Skin: unremarkable. Results: Elevated WCC 12.1. Decreased Hb 11.7, K 3.4. Available chart/ vitals / labs / images reviewed. Video assessment done using teleICU camera, rest of exam as per RN. A/P: Respiratory insufficiency: Continue present management with O2, weaning as cooper. Critical Care: critically ill patient. Cont. Amiod., Dilt., PPI, lisinopril, elvie. dig., metop., Xarelto, metf., Jardiance, lasix, gabap., Ropinirole. Awaiting cardiology recommendations. Discussed with ELROY Davis.coordination of care with other health professionals (mins):20. Sepsis Event Evaluation Height, Weight, BMI Height: '" Weight: lbs. oz. kg; 35.27 BMI Method: Exam Exam Patient acknowledged, consented, and participated in this virtual visit which was conducted using real time audio/video Vital Signs Date Time Temp Pulse Resp B/P (MAP) Pulse Ox O2 Delivery O2 Flow Rate FiO2 10/22/22 08:00 85 16 122/80 (94) 96 Nasal Cannula 2.00 10/22/22 07:00 83 18 123/86 (98) 90 Nasal Cannula 2.00 10/22/22 07:00 82 10/22/22 06:00 81 15 112/79 (90) 93 Room Air 10/22/22 05:00 81 18 114/77 (89) 96 Room Air 10/22/22 04:45 95 Room Air 10/22/22 04:30 77 15 113/73 (86) 94 Room Air 10/22/22 04:09 88 112/78 10/22/22 04:00 36.9 10/22/22 04:00 82 14 111/80 (90) 95 Room Air 10/22/22 03:45 96 14 110/79 (89) 95 Room Air 10/22/22 03:34 36.1 88 18 112/78 (89) 96 Nasal Cannula 2.00 10/22/22 03:30 99 14 107/81 (90) 95 Room Air 10/22/22 03:15 99 14 111/88 (96) 93 Room Air 10/22/22 01:00 81 10/21/22 23:27 36.3 82 16 118/76 (90) 95 Room Air 10/21/22 20:10 Room Air 10/21/22 20:09 36.6 87 16 116/66 (83) 94 Room Air 10/21/22 19:00 85 10/21/22 16:00 36.7 87 16 109/69 (82) 91 Room Air 10/21/22 12:45 88 10/21/22 12:09 36.2 102 18 130/88 (102) 95 Nasal Cannula 0.50 10/21/22 10:49 36.3 101 95 10/21/22 10:49 95 Nasal Cannula 0.50 I & O 10/22/22 07:00 Intake Total 2413 ml Output Total 3335 ml Balance -922 ml Height & Weight Height: '" Weight: lbs. oz. kg; 35.27 BMI Method: General Appearance: No Apparent Distress, WD/WN, Chronically ill HEENT: PERRL/EOMI, TMs Normal, Normal ENT Inspection, Pharynx Normal Neck: Full Range of Motion, Normal Inspection, Non Tender, Supple Respiratory: Lungs Clear, Normal Breath Sounds, No Accessory Muscle Use, No Respiratory Distress Cardiovascular: No Gallop, No Murmur, Irregularly Irregular Capillary Refill: Less Than 3 Seconds Gastrointestinal: normal bowel sounds, other (hypoactive BS) Extremity: Normal Capillary Refill, Normal Inspection, Normal Range of Motion, No Pedal Edema, Other (upper extrem edema but not lower) Neurologic/Psychiatric: Motor Weakness Skin: Normal Color, Warm/Dry Results Lab Laboratory Tests 10/20/22 10:45 10/21/22 04:16 10/22/22 03:50 Assessment/Plan Assessment/Plan See free text. Critical Care: Critically Ill Patient VALDO QUARLES MD Oct 22, 2022 09:03
--- NOTE | 2022-10-22 09:33 | Progress Note - Cardiology ---
Cardiology SOAP Progress Note Subjective: Gen weakness Legs hurt and feel weak No cp or palp or syncope No n/v/d No swelling Objective: I&O/Vital Signs 10/21/22 10/22/22 10/22/22 10/22/22 23:27 01:00 03:15 03:30 Temp 36.3 Pulse 82 81 99 99 Resp 16 14 14 B/P (MAP) 118/76 (90) 111/88 (96) 107/81 (90) Pulse Ox 95 93 95 O2 Delivery Room Air Room Air Room Air 10/22/22 10/22/22 10/22/22 10/22/22 03:34 03:45 04:00 04:00 Temp 36.1 36.9 Pulse 88 96 82 Resp 18 14 14 B/P (MAP) 112/78 (89) 110/79 (89) 111/80 (90) Pulse Ox 96 95 95 O2 Delivery Nasal Cannula Room Air Room Air O2 Flow Rate 2.00 10/22/22 10/22/22 10/22/22 10/22/22 04:09 04:30 04:45 05:00 Pulse 88 77 81 Resp 15 18 B/P (MAP) 112/78 113/73 (86) 114/77 (89) Pulse Ox 94 95 96 O2 Delivery Room Air Room Air Room Air 10/22/22 10/22/22 10/22/22 10/22/22 06:00 07:00 07:00 08:00 Pulse 81 82 83 85 Resp 15 18 16 B/P (MAP) 112/79 (90) 123/86 (98) 122/80 (94) Pulse Ox 93 90 96 O2 Delivery Room Air Nasal Cannula Nasal Cannula O2 Flow Rate 2.00 2.00 10/22/22 10/22/22 08:00 09:00 Temp 36.1 Pulse 77 Resp 16 B/P (MAP) 115/76 (89) Pulse Ox 95 O2 Delivery Nasal Cannula O2 Flow Rate 2.00 10/22/22 00:00 Intake Total 1710 ml Output Total 3135 ml Balance -1425 ml Constitutional: AAO x 3, other (slow to respond, somnolent) Respiratory: other (diminshed lower lobes bilat) Cardiovascular: irregularly irregular, tachycardia, S1 and S2 Gastrointestional: audible bowel sounds Extremities: other (mod bilat LE swelling) Neurologic/Psychiatric: other (moves all limbs equally) Skin: No rash on exposed areas, No ulcerations on exposed areas Results/Procedures: Labs Laboratory Tests 10/22/22 03:50: White Blood Count 12.1H, Red Blood Count 4.19L, Hemoglobin 11.7L, Hematocrit 38L , Mean Corpuscular Volume 91, Mean Corpuscular Hemoglobin 28, Mean Corpuscular Hemoglobin Concent 31L, Red Cell Distribution Width 19.6H, Platelet Count 416H, Mean Platelet Volume 11.7, Immature Granulocyte % (Auto) 1, Neutrophils (%) (Auto) 76H, Lymphocytes (%) (Auto) 13, Monocytes (%) (Auto) 8, Eosinophils (%) (Auto) 3, Basophils (%) (Auto) 0, Neutrophils # (Auto) 9.1H, Lymphocytes # (Auto) 1.5, Monocytes # (Auto) 1.0, Eosinophils # (Auto) 0.3, Basophils # (Auto) 0.0, Immature Granulocyte # (Auto) 0.1, Sodium Level 139, Potassium Level 3.4L, Chloride Level 98, Carbon Dioxide Level 30, Anion Gap 11, Blood Urea Nitrogen 10, Creatinine 0.79, Estimat Glomerular Filtration Rate 113, BUN/Creatinine Ratio 13, Glucose Level 104, Calcium Level 9.3, Corrected Calcium 9.9, Total Bilirubin 1.5H, Aspartate Amino Transf (AST/SGOT) 27, Alanine Aminotransferase (ALT/SGPT) 24, Alkaline Phosphatase 182H, Total Protein 6.8, Albumin 3.2 Microbiology 10/12/22 Gram Stain - Final, Complete 10/12/22 Sputum Culture - Final, Complete Usual upper respiratory travis Staphylococcus aureus Haemophilus influenza Laboratory Tests 10/20/22 10:45 10/21/22 04:16 10/22/22 03:50 A/P: Assessment: Non-sustained WCT on 10/21/22-10/22/22 - transferred to ICU and started on iv amiodarone Acute respiratory failure requiring intubation - extubated 10-16-22 - multi-factorial d/t pneumonia and acute on chronic systolic CHF Acute on chronic systolic congestive heart failure - Echo was done in April 2022 with ejection fraction 40 to 45% with biatrial enlargement, moderate mitral regurgitation, pulmonary artery pressure 45 to 50 mmHg. - Echo of 10-11-[address] Hernandez showed LVEF 35-40%. Mod sized L pleural effus ion. Mild MR. Mild to mod TR. Persistent/permanent atrial fibrillation/flutter - History of ablation done in [place] in late 2020, previously refusing any further ablation - Had been maintained on Eliquis (unsure of compliance) - changed to Xarelto this admission Nonischemic cardiomyopathy - cardiac catheterization done in [place] around 2019 did not show any obstructive disease. History of methamphetamine abuse. - Still using it intermittently, he was found to have methamphetamine in his pocket during this hospitalization EtOH abuse. Acute renal failure - renal function improved Hyperlipidemia Tobaccoism History of noncompliance with medication or medical instruction History of elevated liver enzymes. Probably underlying cirrhosis seen on CTA of the abdomen in the past. Plan: Complex management issue d/t issues noted above along with non-compliance, EtOH abuse, and continuing meth abuse Further complicated by non-sustained WCT. Amio initiated, continue D/c dig after starting amio Continue Aldactone, NOLVIA and Lasix Continue SGLT2-inhibitors Replenish K Monitor lab closely Replace electrolytes as indicated Xarelto for stroke stroke prophylaxis Physical therapy for bilat leg weakness Clinical Quality Measures AMI/AHF: ASA po Prior to arrival: SAVI Cheng MD FACP FAC CCDS Oct 22, 2022 09:33
[2022-10-22] MEDS: LORazepam 1 MG (ATIVAN) TAB PO SCH ×2 (09:52→20:57)
--- NOTE | 2022-10-22 11:32 | Occ Therapy Progress Note ---
Therapy Progress Note OT orders received after pt had a change in medical status requiring transfer to ICU. OT attempted evaluation this AM, but pt adamantly refused OT at this time, stating he needs another day of rest. OT provided education on purpose and benefit of therapy, but pt continued to refuse. OT will attempt evaluation/tx again next available date. 1, refusal [id number] ENEDELIA REILLY OT Oct 22, 2022 11:32
--- NOTE | 2022-10-22 11:49 | Physical Therapy Progress Note ---
Therapy Progress Note Nurse Patient lying supine in bed upon PT arrival, refused treatment due to right knee pain. Nurse notified and will attempt again tomorrow. IBRAHIMA SAMPSON PT Oct 22, 2022 11:48
--- NOTE | 2022-10-22 12:10 | Progress Note - Hospitalist ---
JONO ROMANO 10/22/22 1210: Subjective HPI/CC On Admission Date Seen by Provider: Oct 22, 2022 Time Seen by Provider: 11:10 Chief complaint: Respiratory failure HPI: This is a 42-year-old male known meth user who presented to the ER with shortness of breath was found to have atrial fibrillation with rapid ventricular response with congestive heart failure and ultimately required intubation. He was found to have meth in his pockets and the police were called and took that supply. Subjective/Events-last exam Mr. Alexander experienced an episode of ventricular tachycardia/wide-complex tachy cardia last night, prompting transfer to the ICU. IV amiodarone was administered. He seemed more alert this morning than he has the past few mornings. Reports some elbow and knee pain today, but denies chest pain & shortness of breath. Tolerating diet w/o nausea or vomiting. Review of systems: Negative except as described above. Objective Exam Vital Signs Vital Signs Date Time Temp Pulse Resp B/P (MAP) Pulse Ox O2 Delivery O2 Flow Rate FiO2 10/22/22 12:00 79 16 116/86 (96) 94 Nasal Cannula 2.00 10/22/22 08:00 36.1 10/16/22 09:35 30 Capillary Refill : Less Than 3 Seconds General Appearance: No Apparent Distress Respiratory: Lungs Clear, Normal Breath Sounds, No Accessory Muscle Use, No Respiratory Distress Cardiovascular: No Gallop, No Murmur, Irregularly Irregular, Other (Regular rate) Neurologic/Psychiatric: Alert, Oriented x3, Normal Mood/Affect, Motor Weakness Results/Procedures Lab Laboratory Tests 10/22/22 03:50 Patient resulted labs reviewed. Assessment/Plan Assessment and Plan Assess & Plan/Chief Complaint Assessment & Plan: 10/12: Appreciate Cardiology recommendations. Initially receiving IV lasix 40 mg daily, stopped and given bumetanide yesterday. 10/15: continued on bumetanide 10/16: patient going on day 8 for mechanical ventilation for agitated behavior due to meth with delirium. Staff report that he has had similar admissions in the past and is usually not agitated after several days of ventilation. He has no history of respiratory failure nor was he ventilated for this reason. His chest x-ray is unremarkable and physical examination from a cardiac and pulmonary standpoint are unremarkable. He does have history of dilated cardiomyopathy with an ejection fraction of 35 to 40% on this hospital admission likely related to meth and/or alcohol there is no evidence for heart failure currently. He is ventilating easily with stable reasonable ABGs on 30% FiO2 and 5% PEEP we will plan on sedation vacation and extubation to follow as long as his behavior allows after discussion with nursing staff. 10/17: Patient extubated without difficulty alert oriented anxious but in no acute distress. 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 He voices understanding that meth is killing him and tells this examiner any way that he is through with use. He apparently has support through a local prison that he plans on going back to. Off mechanical ventilation A. fib rate has increased will defer to cardiology about oral therapy for rate control likely beta-ryan in etiology. The patient does exhibit evidence for significant deconditioning. We will have him sit up on the edge of the bed if he is able to ambulate to the commode nursing staff been instructed to disco ntinue his Locke if there is a bed on the floor pending cardiology evaluation and A. fib medication can be transferred to the floor. 10/18: Tachycardia as high as 137 bpm yesterday/overnight. Cardiology is following, and he is currently on metoprolol succinate, diltiazem, spironolactone, & PO Lasix. Oxygen saturation range 90-100 on 2L overnight. Plan to transfer to floor from ICU today. 10/19: We were hoping to transfer Mr. Alexander to the floor yesterday, but continued tachycardia as high as 137 bpm necessitated remaining in the ICU. K+ supplementation given today for K+ level of 3.3 on morning labs. As of yesterday 10/18, started lisinopril 2.5mg PO qday, increased metoprolol succinate from 25mg to 50mg PO qday, and started empagliflozin 10mg PO qday. Per cardiology recommendations, gave 0.25mg IV digoxin today for persistent tachycardia and a- fib. Locke catheter removed today, and encouraged continued ambulation/working with PT/OT. 10/20: HR under better control after digoxin yesterday, although continues to be in a-fib. Adding daily digoxin per cardiology recommendations. Planning to t ransfer him to the floor today. 10/21: HR continues to be controlled with daily digoxin (HR range 93-126 yesterday, 99 this morning). No changes in cardiology recs. Working with delinquency prevention social worker on placement at treatment facility ([facility] or [facility]), vs possible inpatient rehab stay. 10/22: V tach/wide-complex tachycardia overnight, prompting transfer to the ICU. Given IV amiodarone. Digoxin stopped per cardiology recs. (1) Hypotension, resolved Status: Acute Assessment & Plan: Worsening overnight 10/10-10/11, required norepinephrine, weaned back off at this time. (2) Respiratory failure, improving Status: Acute Assessment & Plan: Requiring intubation in ER due to agitation and apnea. Extubated 10/16. On room air and 2L at night. RR range 16-20 yesterday. O2 sat 93% on 2L by NC this morning. Qualifiers: Qualified Codes: J96.01 - Acute respiratory failure with hypoxia (3) HFrEF Status: Chronic (4) Non-ischemic cardiomyopathy Status: Chronic (5) Persistent atrial fibrillation Status: Chronic Assessment & Plan: Chronic, EF 40% in April 2022. Dilated cardiomyopathy likely d/t meth use. Cardiology is following, follow-up recs & see above. Currently on metoprolol succinate, lisinopril, amiodarone, diltiazem, spironolactone, PO Lasix, & rivaroxaban. (6) Rhabdomyolysis Status: Acute Assessment & Plan: Difficult to manage given fluid overload suspected related to HF. 10/18: CK remains elevated at 339, but decreased from 570 yesterday. (7) Methamphetamine abuse Status: Chronic Assessment & Plan: Found to have methamphetamine on person while admitted. director of residential services is following. (8) Acute kidney injury Status: Resolved Assessment & Plan: Worsening renal function as of 10/11/22, suspect due to hypot ension. Norepinephrine started for hypotension. 10/12: worsening, difficult management given fluid overload present 10/13: improved today, good urine output 10/19: Locke catheter removed (9) HTN (hypertension) Status: Chronic (10) HLD (hyperlipidemia) Status: Chronic (11) DVT prophylaxis Status: Acute Assessment & Plan: rivaroxaban Clinical Quality Measures AMI/AHF: ASA po Prior to arrival: ERIN Maxwell DO 10/23/22 [id number]: Supervisory-Addendum Brief Verification & Attestation Participated in pt care: history, MDM, physical Personally performed: exam, history, MDM, supervision of care Care discussed with: Medical Student Procedures: n/a Results interpretation: Verified all documentation Verification and Attestation of Medical Student E/M Service A medical student performed and documented this service in my presence. I reviewed and verified all information documented by the medical student and made modifications to such information, when appropriate. I personally performed the physical exam and medical decision making. Erin Cole, Oct 23, 2022,07:34 JONO ROMANO Oct 22, 2022 12:10 ERIN COLE DO Oct 23, 2022 07:34
[2022-10-22] MEDS: AMIODARONE INJECTION 450 MG in NORMAL SALINE 250 ML IV SCH ×2 (12:14→19:36)
[2022-10-22] MEDS: RIVAROXABAN 20 MG TABLET (XARELTO) PO SCH (17:05)
[2022-10-22] MEDS ORDERED: ARTIFICAL TEARS 0.4 ML UNIT DOSE (REFRESH PLUS) OU PRN (17:15)
[2022-10-22] MEDS: MIRTAZAPINE 15 MG (REMERON) TAB PO SCH (20:56)
[2022-10-22] MEDS: rOPINIRole 0.25 MG (REQUIP) TAB PO SCH (20:57)
[2022-10-23] MEDS: HYDROmorphone 2 MG/ML VIAL (DILAUDID) IV PRN (00:44)
[2022-10-23] MEDS: LORazepam 1 MG (ATIVAN) TAB PO PRN (02:08)
[2022-10-23 06:00] LABS: BASOPHILS % (AUTO) 0 % (0-10); EOSINOPHILS # (AUTO) 0.4 10^3/uL (0.0-0.3); EOSINOPHILS % (AUTO) 4 % (0-10); HEMATOCRIT 39 % (40-54); HEMOGLOBIN 12.3 g/dL (13.3-17.7); LYMPHOCYTES # (AUTO) 1.7 10^3/uL (1.0-4.0); LYMPHOCYTES % (AUTO) 16 % (12-44); MEAN CORPUSCULAR HEMOGLOBIN 28 pg (25-34); MEAN CORPUSCULAR HGB CONC 31 g/dL (32-36); MEAN CORPUSCULAR VOLUME 90 fL (80-99); MEAN PLATELET VOLUME 11.3 fL (9.0-12.2); MONOCYTES % (AUTO) 10 % (0-12); NEUTROPHILS # (AUTO) 7.5 10^3/uL (1.8-7.8); NEUTROPHILS % (AUTO) 70 % (42-75); PLATELET COUNT 461 10^3/uL (130-400); WHITE BLOOD COUNT 10.8 10^3/uL (4.3-11.0)
[2022-10-23 06:06] LABS: ALBUMIN 3.4 GM/DL (3.2-4.5)
[2022-10-23 06:07] LABS: CALCIUM 9.4 MG/DL (8.5-10.1)
[2022-10-23 06:08] LABS: TOTAL PROTEIN 7.4 GM/DL (6.4-8.2)
[2022-10-23 06:10] LABS: BILIRUBIN,TOTAL 1.5 MG/DL (0.1-1.0)
[2022-10-23 06:11] LABS: PHOSPHORUS 3.7 MG/DL (2.3-4.7)
[2022-10-23 06:12] LABS: CREATININE SERUM 0.78 MG/DL (0.60-1.30)
[2022-10-23] MEDS: KCL 20 MEQ TAB (K-DUR) PO SCH ×2 (06:13→08:40)
[2022-10-23] MEDS: MAGNESIUM 1 GM/100 ML IVPB 100 ML IV SCH (06:13)
[2022-10-23] MEDS: POTASSIUM CL 10MEQ/50ML IVPB 50 ML IV SCH (06:13)
[2022-10-23 06:15] LABS: MAGNESIUM 1.8 MG/DL (1.6-2.4)
--- NOTE | 2022-10-23 07:41 | Progress Note - Hospitalist ---
Subjective HPI/CC On Admission Date Seen by Provider: Oct 23, 2022 Time Seen by Provider: 11:00 Chief complaint: Respiratory failure HPI: This is a 42-year-old male known meth user who presented to the ER with shortness of breath was found to have atrial fibrillation with rapid ventricular response with congestive heart failure and ultimately required intubation. He was found to have meth in his pockets and the police were called and took that supply. Subjective/Events-last exam Amiodarone changed to PO and off drip No major issues s/o right knee pain but no erythema Difficult recovery journey Objective Exam Vital Signs Vital Signs Date Time Temp Pulse Resp B/P (MAP) Pulse Ox O2 Delivery O2 Flow Rate FiO2 10/23/22 13:41 36.0 69 20 121/73 (89) 97 Room Air 10/23/22 13:00 2.00 Capillary Refill : Less Than 3 Seconds General Appearance: No Apparent Distress, WD/WN, Chronically ill Respiratory: Lungs Clear, Normal Breath Sounds Cardiovascular: Irregularly Irregular Results/Procedures Lab Laboratory Tests 10/23/22 05:50 Patient resulted labs reviewed. Assessment/Plan Assessment and Plan Assess & Plan/Chief Complaint Appointment rehab placement Assessment & Plan: 10/12: Appreciate Cardiology recommendations. Initially receiving IV lasix 40 mg daily, stopped and given bumetanide yesterday. 10/15: continued on bumetanide 10/16: patient going on day 8 for mechanical ventilation for agitated behavior due to meth with delirium. Staff report that he has had similar admissions in the past and is usually not agitated after several days of ventilation. He has no history of respiratory failure nor was he ventilated for this reason. His chest x-ray is unremarkable and physical examination from a cardiac and pulmonary standpoint are unremarkable. He does have history of dilated cardiomyopathy with an ejection fraction of 35 to 40% on this hospital admission likely related to meth and/or alcohol there is no evidence for heart failure currently. He is ventilating easily with stable reasonable ABGs on 30% FiO2 and 5% PEEP we will plan on sedation vacation and extubation to follow as long as his behavior allows after discussion with nursing staff. 10/17: Patient extubated without difficulty alert oriented anxious but in no a cute distress. 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 He voices understanding that meth is killing him and tells this examiner any way that he is through with use. He apparently has support through a local fci that he plans on going back to. Off mechanical ventilation A. fib rate has increased will defer to cardiology about oral therapy for rate control likely beta-ryan in etiology. The patient does exhibit evidence for significant deconditioning. We will have him sit up on the edge of the bed if he is able to ambulate to the commode nursing staff been instructed to discont inue his Locke if there is a bed on the floor pending cardiology evaluation and A. fib medication can be transferred to the floor. 10/18: Tachycardia as high as 137 bpm yesterday/overnight. Cardiology is following, and he is currently on metoprolol succinate, diltiazem, spironolactone, & PO Lasix. Oxygen saturation range 90-100 on 2L overnight. Plan to transfer to floor from ICU today. 10/19: We were hoping to transfer Mr. Alexander to the floor yesterday, but continued tachycardia as high as 137 bpm necessitated remaining in the ICU. K+ supplementation given today for K+ level of 3.3 on morning labs. As of yesterday 10/18, started lisinopril 2.5mg PO qday, increased metoprolol succinate from 25mg to 50mg PO qday, and started empagliflozin 10mg PO qday. Per cardiology recommendations, gave 0.25mg IV digoxin today for persistent tachycardia and a- fib. Locke catheter removed today, and encouraged continued ambulation/working with PT/OT. 10/20: HR under better control after digoxin yesterday, although continues to be in a-fib. Adding daily digoxin per cardiology recommendations. Planning to tra nsfer him to the floor today. 10/21: HR continues to be controlled with daily digoxin (HR range 93-126 yesterday, 99 this morning). No changes in cardiology recs. Working with mental health social worker on placement at treatment facility ([facility] or [facility]), vs possible inpatient rehab stay. 10/22: V tach/wide-complex tachycardia overnight, prompting transfer to the ICU. Given IV amiodarone. Digoxin stopped per cardiology recs. (1) Hypotension, resolved Status: Acute Assessment & Plan: Worsening overnight 10/10-10/11, required norepinephrine, weaned back off at this time. (2) Respiratory failure, improving Status: Acute Assessment & Plan: Requiring intubation in ER due to agitation and apnea. Extubated 10/16. On room air and 2L at night. RR range 16-20 yesterday. O2 sat 93% on 2L by MT this morning. Qualifiers: Qualified Codes: J96.01 - Acute respiratory failure with hypoxia (3) HFrEF Status: Chronic (4) Non-ischemic cardiomyopathy Status: Chronic (5) Persistent atrial fibrillation Status: Chronic Assessment & Plan: Chronic, EF 40% in April 2022. Dilated cardiomyopathy likely d/t meth use. Cardiology is following, follow-up recs & see above. Currently on metoprolol succinate, lisinopril, amiodarone, diltiazem, spironolactone, PO Lasix, & rivaroxaban. (6) Rhabdomyolysis Status: Acute Assessment & Plan: Difficult to manage given fluid overload suspected related to HF. 10/18: CK remains elevated at 339, but decreased from 570 yesterday. (7) Methamphetamine abuse Status: Chronic Assessment & Plan: Found to have methamphetamine on person while admitted. human services case manager is following. (8) Acute kidney injury Status: Resolved Assessment & Plan: Worsening renal function as of 10/11/22, suspect due to hypotension. Norepinephrine started for hypotension. 10/12: worsening, difficult management given fluid overload present 10/13: improved today, good urine output 10/19: Locke catheter removed (9) HTN (hypertension) Status: Chronic (10) HLD (hyperlipidemia) Status: Chronic (11) DVT prophylaxis Status: Acute Assessment & Plan: rivaroxaban Critical Care Critically Ill Patient Clinical Quality Measures AMI/AHF: ASA po Prior to arrival: BK Maxwell DO Oct 23, 2022 07:41
[2022-10-23] MEDS: DOCUSATE SODIUM 100 MG (COLACE) CAP PO SCH ×2 (08:39→21:11)
[2022-10-23] MEDS: SPIRONOLACTONE 25 MG (ALDACTONE) TAB PO SCH (08:39)
[2022-10-23] MEDS: OLANZapine 5 MG ODT (ZyPREXA ZYDIS) PO SCH (08:39)
[2022-10-23] MEDS: SERTRALINE 50 MG (ZOLOFT) TABLET PO SCH (08:40)
[2022-10-23] MEDS: LORazepam 1 MG (ATIVAN) TAB PO SCH ×2 (08:40→21:12)
[2022-10-23] MEDS: PANTOPRAZOLE 40 MG (PROTONIX) TAB PO SCH (08:40)
[2022-10-23] MEDS: meTOproloL SUCCINATE 50 MG (TOPROL XL) TAB PO SCH (08:40)
[2022-10-23] MEDS: metFORMIN XR 500 MG (GLUCOPHAGE XR) TAB PO SCH ×2 (08:40→21:11)
[2022-10-23] MEDS: lisINopril 5 MG (PRINIVIL) TABLET PO SCH (08:40)
[2022-10-23] MEDS: GABAPENTIN 600 MG (NEURONTIN) TAB PO SCH ×3 (08:40→21:11)
[2022-10-23] MEDS: EMPAGLIFLOZIN 10 MG TABLET (JARDIANCE) PO SCH (08:40)
[2022-10-23] MEDS: FUROSEMIDE 40 MG (LASIX) TAB PO SCH (08:40)
--- NOTE | 2022-10-23 09:17 | Physical Therapy Evaluation ---
PT Evaluation-General Medical Diagnosis Admission Date Oct 08, 2022 at 15:15 Medical Diagnosis: Resp fail, A-fib, CHF Onset Date: Oct 08, 2022 Therapy Diagnosis Therapy Diagnosis: generalized weakness/debility Precautions Precautions/Isolations: Standard Precautions Referral Physician: Dr. Parsons Reason for Referral: Evaluation/Treatment Medical History Pertinent Medical History: Atrial Fib, Alcoholism, HTN, Smoking Current History transferred back to ICU Reviewed History: Yes Social History Current Living Status: Alone Prior Prior Level of Function SCALE: Activities may be completed with or without assistive devices. 2-Srdekxmvje-qdstjrd completes the activity by him/herself with no assistance from a helper. 5-Set-up or Clean-up Assistance-helper sets up or cleans up; patient completes activity. [place] assists only prior to or following the activity. 4-Supervision or Touching Assistance-helper provides verbal cues and/or touching/steadying and/or contact guard assistance as patient completes activity. Assistance may be provided throughout the activity or intermittently. 3-Partial/Moderate Assistance-helper does LESS THAN HALF the effort. [place] lifts, holds or supports trunk or limbs, but provides less than half the effort. 2-Substantial/Maximal Assistance-helper does MORE THAN HALF the effort. [place] lifts or holds trunk or limbs and provides more than half the effort. 7-[place]-ewgoqa does ALL the effort. Patient does none of the effort to complete the activity. Or, the assistance of 2 or more helpers is required for the patient to complete the activity. If activity was not attempted, code reason: 7-Patient Refused. 9-Not Applicable-not attempted and the patient did not perform the activity before the current illness, exacerbation or injury. 10-Not Attempted due to Environmental Limitations-(lack of equipment, weather restraints, etc.). 88-Not Attempted due to Medical Conditions or Safety Concerns. Bed Mobility: 6 Transfers (B,C,W/C): 6 Gait: 6 Stairs: 6 Indoor Mobility (Ambulation): Independent Stairs: Independent Prior Devices Use: None PT Evaluation-Current Subjective Patient agrees to PT. C/o right knee pain. Noted edema right knee. RN present Pain Numeric Pain Scale: 8 Location: Right Location Body Site: Knee Objective Patient Orientation: Person, Time, Situation Attachments: IV ROM/Strength ROM Lower Extremities bilateral LE WFL Strength Lower Extremities 3/5 grossly bilateral LE all planes Integumentary/Posture Bowel Incontinence: No Bladder Incontinence: No Posture cervical flexion noted Neuromuscular (Tone, Coordination, Reflexes) grossly intact Sensory Vision: Functional Hearing: Functional Transfers Lying to Sitting/Side of Bed(Q: 4 Sit to Stand (QC): 3 Chair/Sae-rv-Rrjuy Xfer(QC): 3 Gait Mode of Locomotion: Walk Anticipated Mode of Locomotion: Walk Walk 10 feet (QC): 3 Walk 50 ft with 2 Turns(QC): 88 Walk 150 ft (QC): 88 Distance: 10' Gait Assistive Device: FWW Comments/Gait Description functional gait sequence Balance Sitting Static: Normal Sitting Dynamic: Normal Standing Static: Fair Standing Dynamic: Fair Assessment/Needs Patient will benefit from skilled PT to address functional strength and mobility to improve current LOF. Patient improving with gross motor skills on this date. Rehab Potential: Fair PT Residential Goals Music Internship Goals PT Music Internship Goals Time Frame: Nov 06, 2022 Roll Left & Right (QC): 6 Sit to Lying (QC): 6 Lying-Sitting on Side/Bed(QC): 6 Sit to Stand (QC): 6 Chair/Rlq-vr-Whzlk Xfer(QC): 6 Toilet Transfer (QC): 6 Car Transfer (QC): 6 Walk 10 feet (QC): 5 Walk 50ft with 2 Turns (QC): 5 Walk 150 ft (QC): 5 PT Plan Problem List Problem List: Activity Tolerance, Functional Strength, Safety, Balance, Gait, Transfer, Bed Mobility Treatment/Plan Treatment Plan: Continue Plan of Care Treatment Plan: Bed Mobility, Education, Functional Activity Damien, Functional Strength, Gait, Safety, Therapeutic Exercise, Transfers Treatment Duration: Nov 06, 2022 Frequency: 6 times per week Estimated Hrs Per Day: .25 hour per day Time Time In: 717 Time Out: 734 DATE: Oct 23, 2022 Total Billed Treatment Time: 17 Total Billed Treatment 1 visit EVMod 17 min TAMMY POSADA PT Oct 23, 2022 09:17
[2022-10-23] MEDS: polyethylene glycoL POWDER 17 GM (MIRALAX) PACK PO SCH (09:18)
[2022-10-23] MEDS: AMIODARONE 200 MG (CORDARONE) TAB PO SCH ×2 (10:07→21:11)
--- NOTE | 2022-10-23 10:26 | Diagnostic Imaging Report ---
EXAMINATION: Chest 1 view HISTORY: Hypoxia. COMPARISON: 10/18/2022. FINDINGS: Increasing patchy opacities are seen throughout the lungs. No pleural effusion or pneumothorax. Stable cardiac silhouette. IMPRESSION: 1. Increasing patchy opacities throughout the lungs which may represent worsening pneumonia and/or edema. 2. Stable right PICC. Dictated by: Dictated on workstation # [id number]
--- NOTE | 2022-10-23 10:57 | Progress Note - Cardiology ---
Cardiology SOAP Progress Note Subjective: Reports marked fatigue No cp or palp or syncope No shortness of breath at rest No n/v/d No focal weakness No swelling Objective: I&O/Vital Signs 10/22/22 10/22/22 10/23/22 10/23/22 23:00 23:45 00:00 00:00 Temp 36.1 Pulse 85 65 Resp 27 21 B/P (MAP) 122/65 (84) 105/75 (85) Pulse Ox 91 92 97 O2 Delivery Nasal Cannula Nasal Cannula Nasal Cannula O2 Flow Rate 2.00 2.00 2.00 10/23/22 10/23/22 10/23/22 10/23/22 01:00 01:00 02:00 03:00 Pulse 80 75 71 60 Resp 15 22 13 B/P (MAP) 119/85 (96) 120/73 (89) 129/93 (105) Pulse Ox 91 91 91 O2 Delivery Nasal Cannula Nasal Cannula Nasal Cannula O2 Flow Rate 2.00 2.00 2.00 10/23/22 10/23/22 10/23/22 10/23/22 03:12 04:00 04:00 05:00 Temp 36.1 Pulse 77 73 Resp 16 16 B/P (MAP) 128/83 (98) 128/95 (106) Pulse Ox 93 97 91 O2 Delivery Nasal Cannula Nasal Cannula Nasal Cannula O2 Flow Rate 2.00 2.00 2.00 10/23/22 10/23/22 10/23/22 10/23/22 06:00 07:00 07:00 07:48 Pulse 75 75 74 Resp 13 10 B/P (MAP) 116/91 (99) 116/80 (92) Pulse Ox 94 93 96 O2 Delivery Nasal Cannula Nasal Cannula Nasal Cannula O2 Flow Rate 2.00 2.00 2.00 10/23/22 10/23/22 10/23/22 10/23/22 07:54 08:00 09:00 10:30 Temp 36.3 Pulse 70 73 Resp 15 16 B/P (MAP) 131/53 (79) 122/83 (96) Pulse Ox 92 93 93 O2 Delivery Nasal Cannula Nasal Cannula Nasal Cannula O2 Flow Rate 2.00 2.00 2.00 10/23/22 00:00 Intake Total 1400 ml Output Total 2125 ml Balance -725 ml Constitutional: AAO x 3, other (slow to respond, somnolent) Respiratory: other (diminshed lower lobes bilat) Cardiovascular: irregularly irregular, tachycardia, S1 and S2 Gastrointestional: audible bowel sounds Extremities: other (mod bilat LE swelling) Neurologic/Psychiatric: other (moves all limbs equally) Skin: No rash on exposed areas, No ulcerations on exposed areas Results/Procedures: Labs Laboratory Tests 10/23/22 05:50: White Blood Count 10.8, Red Blood Count 4.35, Hemoglobin 12.3L, Hematocrit 39L, Mean Corpuscular Volume 90, Mean Corpuscular Hemoglobin 28, Mean Corpuscular Hemoglobin Concent 31L, Red Cell Distribution Width 19.6H, Platelet Count 461H, Mean Platelet Volume 11.3, Immature Granulocyte % (Auto) 1, Neutrophils (%) (Auto) 70, Lymphocytes (%) (Auto) 16, Monocytes (%) (Auto) 10, Eosinophils (%) (Auto) 4, Basophils (%) (Auto) 0, Neutrophils # (Auto) 7.5, Lymphocytes # (Auto) 1.7, Monocytes # (Auto) 1.0, Eosinophils # (Auto) 0.4H, Basophils # (Auto) 0.0, Immature Granulocyte # (Auto) 0.1, Sodium Level 136, Potassium Level 4.0, Chloride Level 98, Carbon Dioxide Level 28, Anion Gap 10, Blood Urea Nitrogen 11, Creatinine 0.78, Estimat Glomerular Filtration Rate 113, BUN/Creatinine Ratio 14, Glucose Level 95, Calcium Level 9.4, Corrected Calcium 9.9, Phosphorus Level 3.7, Magnesium Level 1.8, Total Bilirubin 1.5H, Aspartate Amino Transf (AST/SGOT) 30, Alanine Aminotransferase (ALT/SGPT) 20, Alkaline Phosphatase 185H , Total Protein 7.4, Albumin 3.4 Microbiology 10/12/22 Gram Stain - Final, Complete 10/12/22 Sputum Culture - Final, Complete Usual upper respiratory travis Staphylococcus aureus Haemophilus influenza Laboratory Tests 10/22/22 03:50 10/23/22 05:50 Laboratory Tests 10/22/22 03:50 10/23/22 05:50 A/P: Assessment: Non-sustained WCT on 10/21/22-10/22/22 - on amiodarone since 10/22/22 Acute respiratory failure requiring intubation - extubated 10-16-22 - multi-factorial d/t pneumonia and acute on chronic systolic CHF Acute on chronic systolic congestive heart failure - Echo was done in April 2022 with ejection fraction 40 to 45% with biatrial enlargement, moderate mitral regurgitation, pulmonary artery pressure 45 to 50 mmHg. - Echo of 10-11-[address] Hernandez showed LVEF 35-40%. Mod sized L pleural effus ion. Mild MR. Mild to mod TR. Persistent/permanent atrial fibrillation/flutter - History of ablation done in [place] in late 2020, previously refusing any further ablation - Had been maintained on Eliquis (unsure of compliance) - changed to Xarelto this admission Nonischemic cardiomyopathy - cardiac catheterization done in [place] around 2019 did not show any obstructive disease. History of methamphetamine abuse. - Still using it intermittently, he was found to have methamphetamine in his pocket during this hospitalization EtOH abuse. Acute renal failure - renal function improved Hyperlipidemia Tobaccoism History of noncompliance with medication or medical instruction History of elevated liver enzymes. Probably underlying cirrhosis seen on CTA of the abdomen in the past. Plan: Complex management issue d/t issues noted above along with non-compliance, EtOH abuse, and continuing meth abuse Further complicated by non-sustained WCT. Amio initiated, iv load completed, continue orally Continue Aldactone, NOLVIA and Lasix Continue SGLT2-inhibitors Replenish K Monitor lab closely Replace electrolytes as indicated Xarelto for stroke stroke prophylaxis Physical therapy for bilat leg weakness Clinical Quality Measures AMI/AHF: ASA po Prior to arrival: SAVI Cheng MD FACP FAC CCDS Oct 23, 2022 10:56
[2022-10-23] MEDS: RIVAROXABAN 20 MG TABLET (XARELTO) PO SCH (15:58)
[2022-10-23 16:00] VITALS: BP 116/71
[2022-10-23 19:06] VITALS: BP 110/73
[2022-10-23] MEDS: MIRTAZAPINE 15 MG (REMERON) TAB PO SCH (21:11)
[2022-10-23] MEDS: rOPINIRole 0.25 MG (REQUIP) TAB PO SCH (21:11)
[2022-10-23 23:13] VITALS: BP 112/68
[2022-10-24 03:55] VITALS: BP 110/74
[2022-10-24] MEDS: KCL 20 MEQ TAB (K-DUR) PO SCH (05:56)
[2022-10-24 06:12] LABS: BASOPHILS # (AUTO) 0.1 10^3/uL (0.0-0.1); BASOPHILS % (AUTO) 0 % (0-10); EOSINOPHILS # (AUTO) 0.3 10^3/uL (0.0-0.3); EOSINOPHILS % (AUTO) 3 % (0-10); HEMATOCRIT 38 % (40-54); HEMOGLOBIN 11.9 g/dL (13.3-17.7); LYMPHOCYTES # (AUTO) 1.3 10^3/uL (1.0-4.0); LYMPHOCYTES % (AUTO) 11 % (12-44); MEAN CORPUSCULAR HEMOGLOBIN 28 pg (25-34); MEAN CORPUSCULAR HGB CONC 31 g/dL (32-36); MEAN CORPUSCULAR VOLUME 90 fL (80-99); MEAN PLATELET VOLUME 11.7 fL (9.0-12.2); MONOCYTES % (AUTO) 8 % (0-12); NEUTROPHILS # (AUTO) 9.4 10^3/uL (1.8-7.8); NEUTROPHILS % (AUTO) 77 % (42-75); PLATELET COUNT 469 10^3/uL (130-400); WHITE BLOOD COUNT 12.1 10^3/uL (4.3-11.0)
[2022-10-24 06:40] LABS: ALBUMIN 3.4 GM/DL (3.2-4.5); BILIRUBIN,TOTAL 1.8 MG/DL (0.1-1.0); CALCIUM 9.7 MG/DL (8.5-10.1); CREATININE SERUM 0.86 MG/DL (0.60-1.30); MAGNESIUM 1.8 MG/DL (1.6-2.4); POTASSIUM 3.9 MMOL/L (3.6-5.0); TOTAL PROTEIN 7.3 GM/DL (6.4-8.2)
--- NOTE | 2022-10-24 07:06 | Progress Note - Hospitalist ---
Subjective HPI/CC On Admission Date Seen by Provider: Oct 24, 2022 Time Seen by Provider: 10:00 Chief complaint: Respiratory failure HPI: This is a 42-year-old male known meth user who presented to the ER with shortness of breath was found to have atrial fibrillation with rapid ventricular response with congestive heart failure and ultimately required intubation. He was found to have meth in his pockets and the police were called and took that supply. Subjective/Events-last exam No major issues Sleeps most of the time Very weak Reviewed labs Objective Exam Vital Signs Vital Signs Date Time Temp Pulse Resp B/P (MAP) Pulse Ox O2 Delivery O2 Flow Rate FiO2 10/24/22 08:00 98 Nasal Cannula 2.00 10/24/22 07:26 35.5 75 20 119/80 (93) Capillary Refill : Less Than 3 Seconds General Appearance: No Apparent Distress, WD/WN, Chronically ill Respiratory: Lungs Clear, Normal Breath Sounds Cardiovascular: Irregularly Irregular Results/Procedures Lab Laboratory Tests 10/24/22 05:27 Patient resulted labs reviewed. Assessment/Plan Assessment and Plan Assess & Plan/Chief Complaint Appointment rehab placement Assessment & Plan: 10/12: Appreciate Cardiology recommendations. Initially receiving IV lasix 40 mg daily, stopped and given bumetanide yesterday. 10/15: continued on bumetanide 10/16: patient going on day 8 for mechanical ventilation for agitated behavior due to meth with delirium. Staff report that he has had similar admissions in t he past and is usually not agitated after several days of ventilation. He has no history of respiratory failure nor was he ventilated for this reason. His chest x-ray is unremarkable and physical examination from a cardiac and pulmonary standpoint are unremarkable. He does have history of dilated cardiomyopathy with an ejection fraction of 35 to 40% on this hospital admission likely related to meth and/or alcohol there is no evidence for heart failure currently. He is ventilating easily with stable reasonable ABGs on 30% FiO2 and 5% PEEP we will plan on sedation vacation and extubation to follow as long as his behavior allows after discussion with nursing staff. 10/17: Patient extubated without difficulty alert oriented anxious but in no acute distress. 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 He voices understanding that meth is killing him and tells this examiner any way that he is through with use. He apparently has support through a local longterm that he plans on going back to. Off mechanical ventilation A. fib rate has increased will defer to cardiology about oral therapy for rate control likely beta-ryan in etiology. The patient does exhibit evidence for signi ficant deconditioning. We will have him sit up on the edge of the bed if he is able to ambulate to the commode nursing staff been instructed to discontinue his Locke if there is a bed on the floor pending cardiology evaluation and A. fib medication can be transferred to the floor. 10/18: Tachycardia as high as 137 bpm yesterday/overnight. Cardiology is following, and he is currently on metoprolol succinate, diltiazem, spironolactone, & PO Lasix. Oxygen saturation range 90-100 on 2L overnight. Plan to transfer to floor from ICU today. 10/19: We were hoping to transfer Mr. Alexander to the floor yesterday, but continued tachycardia as high as 137 bpm necessitated remaining in the ICU. K+ supplement ation given today for K+ level of 3.3 on morning labs. As of yesterday 10/18, started lisinopril 2.5mg PO qday, increased metoprolol succinate from 25mg to 50mg PO qday, and started empagliflozin 10mg PO qday. Per cardiology recommendations, gave 0.25mg IV digoxin today for persistent tachycardia and a- fib. Locke catheter removed today, and encouraged continued ambulation/working with PT/OT. 10/20: HR under better control after digoxin yesterday, although continues to be in a-fib. Adding daily digoxin per cardiology recommendations. Planning to transfer him to the floor today. 10/21: HR continues to be controlled with daily digoxin (HR range 93-126 yesterday, 99 this morning). No changes in cardiology recs. Working with medical social consultant on placement at treatment facility ([facility] or [facility]), vs possible inpatient rehab stay. 10/22: V tach/wide-complex tachycardia overnight, prompting transfer to the ICU. Given IV amiodarone. Digoxin stopped per cardiology recs. (1) Hypotension, resolved Status: Acute Assessment & Plan: Worsening overnight 10/10-10/11, required norepinephrine, weaned back off at this time. (2) Respiratory failure, improving Status: Acute Assessment & Plan: Requiring intubation in ER due to agitation and apnea. Extubated 10/16. On room air and 2L at night. RR range 16-20 yesterday. O2 sat 93% on 2L by NC this morning. Qualifiers: Qualified Codes: J96.01 - Acute respiratory failure with hypoxia (3) HFrEF Status: Chronic (4) Non-ischemic cardiomyopathy Status: Chronic (5) Persistent atrial fibrillation Status: Chronic Assessment & Plan: Chronic, EF 40% in April 2022. Dilated cardiomyopathy likely d/t meth use. Cardiology is following, follow-up recs & see above. Currently on metoprolol succinate, lisinopril, amiodarone, diltiazem, spironolactone, PO Lasix, & rivaroxaban. (6) Rhabdomyolysis Status: Acute Assessment & Plan: Difficult to manage given fluid overload suspected related to HF. 10/18: CK remains elevated at 339, but decreased from 570 yesterday. (7) Methamphetamine abuse Status: Chronic Assessment & Plan: Found to have methamphetamine on person while admitted. oil well services supervisor is following. (8) Acute kidney injury Status: Resolved Assessment & Plan: Worsening renal function as of 10/11/22, suspect due to hypotension. Norepinephrine started for hypotension. 10/12: worsening, difficult management given fluid overload present 10/13: improved today, good urine output 10/19: Locke catheter removed (9) HTN (hypertension) Status: Chronic (10) HLD (hyperlipidemia) Status: Chronic (11) DVT prophylaxis Status: Acute Assessment & Plan: rivaroxaban Plan: Discharge when able to drug rehab Critical Care Critically Ill Patient Clinical Quality Measures AMI/AHF: ASA po Prior to arrival: BK Maxwell DO Oct 24, 2022 07:06
[2022-10-24 07:26] VITALS: BP 119/80
[2022-10-24] MEDS: polyethylene glycoL POWDER 17 GM (MIRALAX) PACK PO SCH (09:52)
[2022-10-24] MEDS: LORazepam 1 MG (ATIVAN) TAB PO SCH ×2 (10:14→19:47)
[2022-10-24] MEDS: meTOproloL SUCCINATE 50 MG (TOPROL XL) TAB PO SCH (10:14)
[2022-10-24] MEDS: SPIRONOLACTONE 25 MG (ALDACTONE) TAB PO SCH (10:14)
[2022-10-24] MEDS: DOCUSATE SODIUM 100 MG (COLACE) CAP PO SCH ×2 (10:14→19:47)
[2022-10-24] MEDS: GABAPENTIN 600 MG (NEURONTIN) TAB PO SCH ×3 (10:14→19:47)
[2022-10-24] MEDS: FUROSEMIDE 40 MG (LASIX) TAB PO SCH (10:14)
[2022-10-24] MEDS: PANTOPRAZOLE 40 MG (PROTONIX) TAB PO SCH (10:14)
[2022-10-24] MEDS: lisINopril 5 MG (PRINIVIL) TABLET PO SCH (10:15)
[2022-10-24] MEDS: EMPAGLIFLOZIN 10 MG TABLET (JARDIANCE) PO SCH (10:15)
[2022-10-24] MEDS: metFORMIN XR 500 MG (GLUCOPHAGE XR) TAB PO SCH ×2 (10:15→19:47)
[2022-10-24] MEDS: OLANZapine 5 MG ODT (ZyPREXA ZYDIS) PO SCH (10:15)
[2022-10-24] MEDS: AMIODARONE 200 MG (CORDARONE) TAB PO SCH ×2 (10:15→19:47)
[2022-10-24] MEDS: SERTRALINE 50 MG (ZOLOFT) TABLET PO SCH (10:15)
[2022-10-24 11:36] VITALS: BP 116/76
--- NOTE | 2022-10-24 14:07 | Progress Note - Cardiology ---
Cardiology SOAP Progress Note Subjective: Still tiring easily No shortness of breath at rest No n/v/d No cp or palp or syncope No swelling Objective: I&O/Vital Signs 10/24/22 10/24/22 10/24/22 10/24/22 03:55 07:00 07:26 08:00 Temp 36.0 35.5 Pulse 62 73 75 Resp 18 20 B/P (MAP) 110/74 (86) 119/80 (93) Pulse Ox 96 94 98 O2 Delivery Nasal Cannula Nasal Cannula Nasal Cannula O2 Flow Rate 2.00 2.00 2.00 10/24/22 10/24/22 11:36 12:48 Temp 35.6 Pulse 70 69 Resp 18 B/P (MAP) 116/76 (89) Pulse Ox 94 O2 Delivery Room Air 10/24/22 00:00 Intake Total 1679 ml Output Total 2275 ml Balance -596 ml Constitutional: AAO x 3, other (slow to respond, somnolent) Respiratory: other (diminshed lower lobes bilat) Cardiovascular: irregularly irregular, tachycardia, S1 and S2 Gastrointestional: audible bowel sounds Extremities: other (mod bilat LE swelling) Neurologic/Psychiatric: other (moves all limbs equally) Skin: No rash on exposed areas, No ulcerations on exposed areas Results/Procedures: Labs Laboratory Tests 10/24/22 05:27: White Blood Count 12.1H, Red Blood Count 4.22L, Hemoglobin 11.9L, Hematocrit 38L , Mean Corpuscular Volume 90, Mean Corpuscular Hemoglobin 28, Mean Corpuscular Hemoglobin Concent 31L, Red Cell Distribution Width 19.5H, Platelet Count 469H, Mean Platelet Volume 11.7, Immature Granulocyte % (Auto) 1, Neutrophils (%) (Auto) 77H, Lymphocytes (%) (Auto) 11L, Monocytes (%) (Auto) 8, Eosinophils (%) (Auto) 3, Basophils (%) (Auto) 0, Neutrophils # (Auto) 9.4H, Lymphocytes # (Auto) 1.3, Monocytes # (Auto) 1.0, Eosinophils # (Auto) 0.3, Basophils # (Auto) 0.1, Immature Granulocyte # (Auto) 0.1, Sodium Level 136, Potassium Level 3.9, Chloride Level 96L, Carbon Dioxide Level 27, Anion Gap 13, Blood Urea Nitrogen 11, Creatinine 0.86, Estimat Glomerular Filtration Rate 110, BUN/Creatinine Ratio 13, Glucose Level 96, Calcium Level 9.7, Corrected Calcium 10.2H, Magnesium Level 1.8, Total Bilirubin 1.8H, Aspartate Amino Transf (AST/SGOT) 25, Alanine Aminotransferase (ALT/SGPT) 21, Alkaline Phosphatase 181H, Total Protein 7.3, Albumin 3.4 Microbiology 10/12/22 Gram Stain - Final, Complete 10/12/22 Sputum Culture - Final, Complete Usual upper respiratory travis Staphylococcus aureus Haemophilus influenza Laboratory Tests 10/23/22 05:50 10/24/22 05:27 A/P: Assessment: Non-sustained WCT on 10/21/22-10/22/22 - on amiodarone since 10/22/22 Acute respiratory failure requiring intubation - extubated 10-16-22 - multi-factorial d/t pneumonia and acute on chronic systolic CHF Acute on chronic systolic congestive heart failure - Echo was done in April 2022 with ejection fraction 40 to 45% with biatrial enlargement, moderate mitral regurgitation, pulmonary artery pressure 45 to 50 mmHg. - Echo of 10-11-[address] Hernandez showed LVEF 35-40%. Mod sized L pleural effusion. Mild MR. Mild to mod TR. Persistent/permanent atrial fibrillation/flutter - History of ablation done in [place] in late 2020, previously refusing any further ablation - Had been maintained on Eliquis (unsure of compliance) - changed to Xarelto this admission Nonischemic cardiomyopathy - cardiac catheterization done in [place] around 2019 did not show any obstructive disease. History of methamphetamine abuse. - Still using it intermittently, he was found to have methamphetamine in his pocket during this hospitalization EtOH abuse. Acute renal failure - renal function improved Hyperlipidemia Tobaccoism History of noncompliance with medication or medical instruction History of elevated liver enzymes. Probably underlying cirrhosis seen on CTA of the abdomen in the past. Plan: Complex management issue d/t issues noted above along with non-compliance, EtOH abuse, and continuing meth abuse Further complicated by non-sustained WCT. Amio initiated, iv load completed, continue orally Continue Aldactone, NOLVIA and Lasix Continue SGLT2-inhibitors Replenish K Monitor lab closely Replace electrolytes as indicated Xarelto for stroke stroke prophylaxis Physical therapy for bilat leg weakness Keep on tele May need Life Vest upon discharge Clinical Quality Measures AMI/AHF: ASA po Prior to arrival: SAVI Cheng MD FACP FAC CCDS Oct 24, 2022 14:07
[2022-10-24 15:41] VITALS: BP 103/61
[2022-10-24] MEDS: RIVAROXABAN 20 MG TABLET (XARELTO) PO SCH (17:36)
[2022-10-24 19:33] VITALS: BP 102/64
[2022-10-24] MEDS: MIRTAZAPINE 15 MG (REMERON) TAB PO SCH (19:47)
[2022-10-24] MEDS: rOPINIRole 0.25 MG (REQUIP) TAB PO SCH (19:47)
[2022-10-24 23:24] VITALS: BP 102/60
[2022-10-25 03:51] VITALS: BP 119/69
[2022-10-25] MEDS: KCL 20 MEQ TAB (K-DUR) PO SCH (05:21)
[2022-10-25 06:02] LABS: BASOPHILS # (AUTO) 0.1 10^3/uL (0.0-0.1); BASOPHILS % (AUTO) 1 % (0-10); EOSINOPHILS # (AUTO) 0.3 10^3/uL (0.0-0.3); EOSINOPHILS % (AUTO) 3 % (0-10); HEMATOCRIT 39 % (40-54); HEMOGLOBIN 12.1 g/dL (13.3-17.7); LYMPHOCYTES # (AUTO) 1.7 10^3/uL (1.0-4.0); LYMPHOCYTES % (AUTO) 16 % (12-44); MEAN CORPUSCULAR HEMOGLOBIN 28 pg (25-34); MEAN CORPUSCULAR HGB CONC 31 g/dL (32-36); MEAN CORPUSCULAR VOLUME 90 fL (80-99); MEAN PLATELET VOLUME 11.5 fL (9.0-12.2); MONOCYTES % (AUTO) 10 % (0-12); NEUTROPHILS # (AUTO) 7.6 10^3/uL (1.8-7.8); NEUTROPHILS % (AUTO) 71 % (42-75); PLATELET COUNT 470 10^3/uL (130-400); WHITE BLOOD COUNT 10.7 10^3/uL (4.3-11.0)
[2022-10-25 06:35] LABS: ALBUMIN 3.4 GM/DL (3.2-4.5); BILIRUBIN,TOTAL 1.7 MG/DL (0.1-1.0); CALCIUM 9.8 MG/DL (8.5-10.1); CREATININE SERUM 0.94 MG/DL (0.60-1.30); POTASSIUM 3.8 MMOL/L (3.6-5.0); TOTAL PROTEIN 7.6 GM/DL (6.4-8.2)
[2022-10-25 07:17] VITALS: BP 111/68
[2022-10-25] MEDS: polyethylene glycoL POWDER 17 GM (MIRALAX) PACK PO SCH (08:41)
[2022-10-25] MEDS: DOCUSATE SODIUM 100 MG (COLACE) CAP PO SCH ×2 (08:41→19:55)
[2022-10-25] MEDS: FUROSEMIDE 40 MG (LASIX) TAB PO SCH (08:41)
[2022-10-25] MEDS: EMPAGLIFLOZIN 10 MG TABLET (JARDIANCE) PO SCH (08:41)
[2022-10-25] MEDS: meTOproloL SUCCINATE 50 MG (TOPROL XL) TAB PO SCH (08:41)
[2022-10-25] MEDS: SPIRONOLACTONE 25 MG (ALDACTONE) TAB PO SCH (08:41)
[2022-10-25] MEDS: OLANZapine 5 MG ODT (ZyPREXA ZYDIS) PO SCH (08:41)
[2022-10-25] MEDS: GABAPENTIN 600 MG (NEURONTIN) TAB PO SCH ×3 (08:41→19:55)
[2022-10-25] MEDS: metFORMIN XR 500 MG (GLUCOPHAGE XR) TAB PO SCH ×2 (08:41→19:56)
[2022-10-25] MEDS: PANTOPRAZOLE 40 MG (PROTONIX) TAB PO SCH (08:41)
[2022-10-25] MEDS: lisINopril 5 MG (PRINIVIL) TABLET PO SCH (08:42)
[2022-10-25] MEDS: AMIODARONE 200 MG (CORDARONE) TAB PO SCH ×2 (08:42→19:59)
[2022-10-25] MEDS: LORazepam 1 MG (ATIVAN) TAB PO SCH ×2 (08:42→19:56)
[2022-10-25] MEDS: SERTRALINE 50 MG (ZOLOFT) TABLET PO SCH (08:42)
--- NOTE | 2022-10-25 09:28 | Physical Therapy Daily Note ---
PT Daily Note-Current Subjective Patient agrees to PT. Pain Section J - Health Conditions 1. Rarely or not at all 2. Occasionally 3. Frequently 4. Almost constantly 8. Unable to answer Pain Effect on Sleep: 1 Pain Interference with Therapy: 2 Pain Interference w/Day-to-Day: 2 Mental Status Patient Orientation: Normal For Age Transfers SCALE: Activities may be completed with or without assistive devices. 9-Thcnkhktbs-iwskfvg completes the activity by him/herself with no assistance from a helper. 5-Set-up or Clean-up Assistance-helper sets up or cleans up; patient completes activity. [place] assists only prior to or following the activity. 4-Supervision or Touching Assistance-helper provides verbal cues and/or touching/steadying and/or contact guard assistance as patient completes activity. Assistance may be provided throughout the activity or intermittently. 3-Partial/Moderate Assistance-helper does LESS THAN HALF the effort. [place] lifts, holds or supports trunk or limbs, but provides less than half the effort. 2-Substantial/Maximal Assistance-helper does MORE THAN HALF the effort. [place] lifts or holds trunk or limbs and provides more than half the effort. 2-Cvoscvflu-obncpi does ALL the effort. Patient does none of the effort to complete the activity. Or, the assistance of 2 or more helpers is required for the patient to complete the activity. If activity was not attempted, code reason: 7-Patient Refused. 9-Not Applicable-not attempted and the patient did not perform the activity before the current illness, exacerbation or injury. 10-Not Attempted due to Environmental Limitations-(lack of equipment, weather restraints, etc.). 88-Not Attempted due to Medical Conditions or Safety Concerns. Lying to Sitting/Side of Bed(Q: 6 Sit to Stand (QC): 4 Chair/Cos-wp-Ezxff Xfer(QC): 4 Gait Training Distance: 200' Walk 10 feet (QC): 4 Walk 50 ft with 2 Turns(QC): 4 Walk 150 ft (QC): 4 Gait Assistive Device: FWW slow steady gait sequence Assessment VC's for body placement in FWW. Much improved on this date. PT Shelter Goals Shelter Goals PT Shelter Goals Time Frame: Nov 06, 2022 Roll Left & Right (QC): 6 Sit to Lying (QC): 6 Lying-Sitting on Side/Bed(QC): 6 Sit to Stand (QC): 6 Chair/Qaq-ee-Ijyww Xfer(QC): 6 Toilet Transfer (QC): 6 Car Transfer (QC): 6 Walk 10 feet (QC): 5 Walk 50ft with 2 Turns (QC): 5 Walk 150 ft (QC): 5 PT Plan Treatment/Plan Treatment Plan: Continue Plan of Care Treatment Plan: Bed Mobility, Education, Functional Activity Damien, Functional Strength, Gait, Safety, Therapeutic Exercise, Transfers Treatment Duration: Nov 06, 2022 Frequency: 6 times per week Estimated Hrs Per Day: .25 hour per day Time Time In: 814 Time Out: 824 DATE: Oct 25, 2022 Total Billed Treatment Time: 10 Total Billed Treatment 1 visit GT 10 min TAMMY POSADA PT Oct 25, 2022 09:28
--- NOTE | 2022-10-25 10:58 | Progress Note - Cardiology ---
Cardiology SOAP Progress Note Subjective: Sitting up in bed Denies any c/o CP, SOB, palpitations, syncope or near syncope Objective: I&O/Vital Signs 10/25/22 10/25/22 10/26/22 10/26/22 19:55 23:11 01:00 03:47 Temp 36.0 36.4 Pulse 56 62 90 Resp 18 18 B/P (MAP) 98/62 (74) 106/66 (79) Pulse Ox 93 95 O2 Delivery Room Air Nasal Cannula Nasal Cannula O2 Flow Rate 2.00 1.50 10/26/22 07:10 Temp 36.0 Pulse 68 Resp 20 B/P (MAP) 114/75 (88) Pulse Ox 96 O2 Delivery Room Air O2 Flow Rate 0.00 0.00 10/26/22 00:00 Intake Total 2280 ml Output Total 1901 ml Balance 379 ml Constitutional: AAO x 3, other (slow to respond, somnolent) Respiratory: other (diminshed lower lobes bilat) Cardiovascular: irregularly irregular, S1 and S2 Gastrointestional: audible bowel sounds Extremities: other (mod bilat LE swelling) Neurologic/Psychiatric: other (moves all limbs equally) Skin: No rash on exposed areas, No ulcerations on exposed areas Results/Procedures: Labs Laboratory Tests 10/26/22 05:12: White Blood Count 12.1H, Red Blood Count 4.20L, Hemoglobin 12.2L, Hematocrit 38L , Mean Corpuscular Volume 91, Mean Corpuscular Hemoglobin 29, Mean Corpuscular Hemoglobin Concent 32, Red Cell Distribution Width 19.9H, Platelet Count 502H, Mean Platelet Volume 11.2, Immature Granulocyte % (Auto) 1, Neutrophils (%) (Auto) 71, Lymphocytes (%) (Auto) 16, Monocytes (%) (Auto) 10, Eosinophils (%) (Auto) 3, Basophils (%) (Auto) 1, Neutrophils # (Auto) 8.6H, Lymphocytes # (Auto) 1.9, Monocytes # (Auto) 1.2H, Eosinophils # (Auto) 0.3, Basophils # (Auto) 0.1, Immature Granulocyte # (Auto) 0.1, Sodium Level 135, Potassium Level 4.1, Chloride Level 96L, Carbon Dioxide Level 27, Anion Gap 12, Blood Urea Nitrogen 12, Creatinine 0.95, Estimat Glomerular Filtration Rate 102, BUN/Creatinine Ratio 13, Glucose Level 90, Calcium Level 9.8, Corrected Calcium 10.2H, Magnesium Level 2.0, Total Bilirubin 1.3H, Aspartate Amino Transf (AST/SGOT) 23, Alanine Aminotransferase (ALT/SGPT) 18, Alkaline Phosphatase 204H , Total Protein 7.7, Albumin 3.5 Microbiology 10/12/22 Gram Stain - Final, Complete 10/12/22 Sputum Culture - Final, Complete Usual upper respiratory travis Staphylococcus aureus Haemophilus influenza A/P: Assessment: Non-sustained WCT on 10/21/22-10/22/22 - on amiodarone since 10/22/22 Acute respiratory failure requiring intubation - extubated 10-16-22 - multi-factorial d/t pneumonia and acute on chronic systolic CHF Acute on chronic systolic congestive heart failure - Echo was done in April 2022 with ejection fraction 40 to 45% with biatrial enlargement, moderate mitral regurgitation, pulmonary artery pressure 45 to 50 mmHg. - Echo of 10-11-[address] Hernandez showed LVEF 35-40%. Mod sized L pleural effusion. Mild MR. Mild to mod TR. Persistent/permanent atrial fibrillation/flutter - History of ablation done in [place] in late 2020, previously refusing any further ablation - Had been maintained on Eliquis (unsure of compliance) - changed to Xarelto this admission Nonischemic cardiomyopathy - cardiac catheterization done in [place] around 2019 did not show any obstructive disease. History of methamphetamine abuse. - Still using it intermittently, he was found to have methamphetamine in his pocket during this hospitalization EtOH abuse. Acute renal failure - renal function improved Hyperlipidemia Tobaccoism History of noncompliance with medication or medical instruction History of elevated liver enzymes. Probably underlying cirrhosis seen on CTA of the abdomen in the past. Plan: Complex management issue d/t issues noted above along with non-compliance, EtOH abuse, and continuing meth abuse Further complicated by non-sustained WCT. Amio initiated, iv load completed, continue orally Continue Aldactone, NOLVIA and Lasix Continue SGLT2-inhibitors Replenish K Monitor lab closely Replace electrolytes as indicated Xarelto for stroke stroke prophylaxis Physical therapy for bilat leg weakness Keep on tele May need Life Vest upon discharge Clinical Quality Measures AMI/AHF: ASA po Prior to arrival: ANN Correa Oct 25, 2022 10:58
--- NOTE | 2022-10-25 11:40 | Occ Therapy Progress Note ---
Therapy Progress Note OT evaluation attempted, pt refused OT services on this date due to being tired. OT informed pt about purpose and benefit of OT, he verbalized understanding but requests to begin tomorrow. Pt indicates he has no troubles with UEs and doesn't feel up to completing ADLS. OT again encouraged pt to participate, as he has refused OT services last week and again today. If pt refuses OT tomorrow, pt will be discharged from OT services. 1, refusal. ENEDELIA REILLY OT Oct 25, 2022 11:40
[2022-10-25 11:46] VITALS: BP 110/72
--- NOTE | 2022-10-25 14:50 | Progress Note ---
Subjective Subjective/Events-last exam States that he is feeling much better. His feet are still hurting him and he feels unsteady walking. Tolerating PO diet. BM yesterday. Review of Systems Pulmonary: No Dyspnea, No Cough Cardiovascular: No: Chest Pain, Palpitations Neurological: Weakness, Incoordination Objective Exam Last Set of Vital Signs Vital Signs Date Time Temp Pulse Resp B/P (MAP) Pulse Ox O2 Delivery O2 Flow Rate FiO2 10/25/22 13:49 57 10/25/22 11:46 36.6 18 110/72 (85) 91 Room Air 10/25/22 07:17 2.00 Capillary Refill : Less Than 3 Seconds I&O Intake and Output 10/25/22 00:00 Intake Total 3001 ml Output Total 4890 ml Balance -1889 ml Intake Oral 3001 ml Output Urine Total 4890 ml # Voids 1 # Bowel Movements 1 General: Alert, Oriented X3, No Acute Distress Lungs: Clear to Auscultation, Normal Air Movement Heart: Regular Rate, No Murmurs Abdomen: Normal Bowel Sounds, Soft, No Tenderness, No Masses Extremities: Other (1+ pitting edema) Neuro: Normal Speech Results/Procedures Lab Laboratory Tests 10/25/22 05:35: White Blood Count 10.7, Red Blood Count 4.31, Hemoglobin 12.1L, Hematocrit 39L, Mean Corpuscular Volume 90, Mean Corpuscular Hemoglobin 28, Mean Corpuscular Hemoglobin Concent 31L, Red Cell Distribution Width 19.5H, Platelet Count 470H, Mean Platelet Volume 11.5, Immature Granulocyte % (Auto) 1, Neutrophils (%) (Auto) 71, Lymphocytes (%) (Auto) 16, Monocytes (%) (Auto) 10, Eosinophils (%) (Auto) 3, Basophils (%) (Auto) 1, Neutrophils # (Auto) 7.6, Lymphocytes # (Auto) 1.7, Monocytes # (Auto) 1.0, Eosinophils # (Auto) 0.3, Basophils # (Auto) 0.1, Immature Granulocyte # (Auto) 0.1, Sodium Level 137, Potassium Level 3.8, Chloride Level 97L, Carbon Dioxide Level 27, Anion Gap 13, Blood Urea Nitrogen 11, Creatinine 0.94, Estimat Glomerular Filtration Rate 103, BUN/Creatinine Ratio 12, Glucose Level 109H, Calcium Level 9.8, Corrected Calcium 10.3H, Magnesium Level 2.0, Total Bilirubin 1.7H, Aspartate Amino Transf (AST/SGOT) 24, Alanine Aminotransferase (ALT/SGPT) 19, Alkaline Phosphatase 193H, Total Protein 7.6, Albumin 3.4 Microbiology 10/12/22 Gram Stain - Final, Complete 10/12/22 Sputum Culture - Final, Complete Usual upper respiratory travis Staphylococcus aureus Haemophilus influenza Assessment/Plan Assessment/Plan (1) Atrial fibrillation with RVR Status: Resolved Assessment & Plan: Initially requiring Cardizem drip. Appreciate Cardiology recommendations. 10/25: Rate controlled, on OAC, bleeding precautions discussed with patient (2) Acute on chronic HFrEF (heart failure with reduced ejection fraction) Status: Acute Assessment & Plan: 10/25: Doing well today, will have f.u with cardiology after d/c (3) Hypotension Status: Resolved (4) Respiratory failure Status: Resolved Qualifiers: Qualified Codes: J96.01 - Acute respiratory failure with hypoxia (5) HFrEF (heart failure with reduced ejection fraction) Status: Chronic Assessment & Plan: Chronic, EF 40% in April 2022 (6) Persistent atrial fibrillation Status: Chronic Assessment & Plan: 10/25: OAC (7) NICM (nonischemic cardiomyopathy) Status: Chronic (8) Rhabdomyolysis Status: Acute (9) Methamphetamine abuse Status: Chronic Assessment & Plan: Found to have methamphetamine on person while admitted. 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 10/25: Discussed the importance of cessation, he is interested in inpatient rehab (10) Acute kidney injury Status: Resolved Assessment & Plan: Worsening renal function as of 10/11/22, suspect due to hypotension. Norepinephrine started for hypotension. 10/12- worsening, difficult management given fluid overload present 10/13- improved today, good urine output (11) Cardiomyopathy Status: Resolved Qualifiers: Qualified Codes: I42.9 - Cardiomyopathy, unspecified (12) HTN (hypertension) Status: Chronic (13) HLD (hyperlipidemia) Status: Chronic (14) DVT prophylaxis Status: Acute Assessment & Plan: enoxaparin (15) Physical debility Status: Acute Assessment & Plan: 10/25: IRF eval pending Clinical Quality Measures AMI/AHF: ASA po Prior to arrival: No JACOBY LINK MD Oct 25, 2022 14:50
[2022-10-25 15:19] VITALS: BP 108/72
[2022-10-25] MEDS: RIVAROXABAN 20 MG TABLET (XARELTO) PO SCH (17:23)
--- NOTE | 2022-10-25 18:52 | Progress Note - Cardiology ---
Cardiology SOAP Progress Note Subjective: No cp or palp or syncope Weakness is improving No n/v/d No swelling Objective: I&O/Vital Signs 10/25/22 10/25/22 10/25/22 10/25/22 07:17 07:28 07:28 08:30 Temp 36.1 Pulse 65 61 61 Resp 18 B/P (MAP) 111/68 (82) Pulse Ox 98 O2 Delivery Nasal Cannula Room Air O2 Flow Rate 2.00 10/25/22 10/25/22 10/25/22 10/25/22 11:46 13:49 15:19 17:23 Temp 36.6 36.1 Pulse 70 57 64 Resp 18 18 B/P (MAP) 110/72 (85) 108/72 (84) Pulse Ox 91 93 O2 Delivery Room Air Room Air Room Air O2 Flow Rate 0.00 10/25/22 00:00 Intake Total 2301 ml Output Total 4490 ml Balance -2189 ml Constitutional: AAO x 3, other (slow to respond, somnolent) Respiratory: other (diminshed lower lobes bilat) Cardiovascular: irregularly irregular, S1 and S2 Gastrointestional: audible bowel sounds Extremities: other (mod bilat LE swelling) Neurologic/Psychiatric: other (moves all limbs equally) Skin: No rash on exposed areas, No ulcerations on exposed areas Results/Procedures: Labs Laboratory Tests 10/25/22 05:35: White Blood Count 10.7, Red Blood Count 4.31, Hemoglobin 12.1L, Hematocrit 39L, Mean Corpuscular Volume 90, Mean Corpuscular Hemoglobin 28, Mean Corpuscular Hemoglobin Concent 31L, Red Cell Distribution Width 19.5H, Platelet Count 470H, Mean Platelet Volume 11.5, Immature Granulocyte % (Auto) 1, Neutrophils (%) (Auto) 71, Lymphocytes (%) (Auto) 16, Monocytes (%) (Auto) 10, Eosinophils (%) (Auto) 3, Basophils (%) (Auto) 1, Neutrophils # (Auto) 7.6, Lymphocytes # (Auto) 1.7, Monocytes # (Auto) 1.0, Eosinophils # (Auto) 0.3, Basophils # (Auto) 0.1, Immature Granulocyte # (Auto) 0.1, Sodium Level 137, Potassium Level 3.8, Chlori de Level 97L, Carbon Dioxide Level 27, Anion Gap 13, Blood Urea Nitrogen 11, Creatinine 0.94, Estimat Glomerular Filtration Rate 103, BUN/Creatinine Ratio 12, Glucose Level 109H, Calcium Level 9.8, Corrected Calcium 10.3H, Magnesium Level 2.0, Total Bilirubin 1.7H, Aspartate Amino Transf (AST/SGOT) 24, Alanine Aminotransferase (ALT/SGPT) 19, Alkaline Phosphatase 193H, Total Protein 7.6, Albumin 3.4 Microbiology 10/12/22 Gram Stain - Final, Complete 10/12/22 Sputum Culture - Final, Complete Usual upper respiratory travis Staphylococcus aureus Haemophilus influenza Laboratory Tests 10/24/22 05:27 10/25/22 05:35 A/P: Assessment: Non-sustained WCT on 10/21/22-10/22/22, probably aberrance during A Fib with RVR - on amiodarone since 10/22/22. Heart rate is better controlled since and no recurrence or WCT Acute respiratory failure requiring intubation - extubated 10-16-22 - multi-factorial d/t pneumonia and acute on chronic systolic CHF Acute on chronic systolic congestive heart failure - Echo was done in April 2022 with ejection fraction 40 to 45% with biatrial enlargement, moderate mitral regurgitation, pulmonary artery pressure 45 to 50 mmHg. - Echo of 10-11-[address] Hernandez showed LVEF 35-40%. Mod sized L pleural effusion. Mild MR. Mild to mod TR. Persistent/permanent atrial fibrillation/flutter - History of ablation done in [place] in late 2020, previously refusing any further ablation - Had been maintained on Eliquis (unsure of compliance) - changed to Xarelto this admission Nonischemic cardiomyopathy - cardiac catheterization done in [place] around 2019 did not show any obstructive disease. History of methamphetamine abuse. - Still using it intermittently, he was found to have methamphetamine in his pocket during this hospitalization EtOH abuse. Acute renal failure - renal function improved Hyperlipidemia Tobaccoism History of noncompliance with medication or medical instruction History of elevated liver enzymes. Probably underlying cirrhosis seen on CTA of the abdomen in the past. Plan: Complex management issue d/t issues noted above along with non-compliance, EtOH abuse, and continuing meth abuse He wishes to go home. Plan repeat echo. If EF less than 35%, then Life Vest Further complicated by non-sustained WCT. Amio initiated, iv load completed, continue orally Continue Aldactone, NOLVIA and Lasix Continue SGLT2-inhibitors Replenish K Monitor lab closely Replace electrolytes as indicated Xarelto for stroke stroke prophylaxis Physical therapy for bilat leg weakness Keep on tele Clinical Quality Measures AMI/AHF: ASA po Prior to arrival: SAVI Cheng MD FACP FAC CCDS Oct 25, 2022 18:52
[2022-10-25 19:05] VITALS: BP 115/66
[2022-10-25] MEDS: MIRTAZAPINE 15 MG (REMERON) TAB PO SCH (19:55)
[2022-10-25] MEDS: rOPINIRole 0.25 MG (REQUIP) TAB PO SCH (19:58)
[2022-10-25 23:11] VITALS: BP 98/62
[2022-10-26] MEDS: LORazepam 1 MG (ATIVAN) TAB PO PRN (02:21)
[2022-10-26 03:47] VITALS: BP 106/66
[2022-10-26 05:24] LABS: BASOPHILS # (AUTO) 0.1 10^3/uL (0.0-0.1); BASOPHILS % (AUTO) 1 % (0-10); EOSINOPHILS # (AUTO) 0.3 10^3/uL (0.0-0.3); EOSINOPHILS % (AUTO) 3 % (0-10); HEMATOCRIT 38 % (40-54); HEMOGLOBIN 12.2 g/dL (13.3-17.7); LYMPHOCYTES # (AUTO) 1.9 10^3/uL (1.0-4.0); LYMPHOCYTES % (AUTO) 16 % (12-44); MEAN CORPUSCULAR HEMOGLOBIN 29 pg (25-34); MEAN CORPUSCULAR HGB CONC 32 g/dL (32-36); MEAN CORPUSCULAR VOLUME 91 fL (80-99); MEAN PLATELET VOLUME 11.2 fL (9.0-12.2); MONOCYTES # (AUTO) 1.2 10^3/uL (0.0-1.0); MONOCYTES % (AUTO) 10 % (0-12); NEUTROPHILS # (AUTO) 8.6 10^3/uL (1.8-7.8); NEUTROPHILS % (AUTO) 71 % (42-75); PLATELET COUNT 502 10^3/uL (130-400); WHITE BLOOD COUNT 12.1 10^3/uL (4.3-11.0)
[2022-10-26 05:42] LABS: ALBUMIN 3.5 GM/DL (3.2-4.5); POTASSIUM 4.1 MMOL/L (3.6-5.0)
[2022-10-26 05:43] LABS: CALCIUM 9.8 MG/DL (8.5-10.1)
[2022-10-26 05:44] LABS: TOTAL PROTEIN 7.7 GM/DL (6.4-8.2)
[2022-10-26 05:46] LABS: BILIRUBIN,TOTAL 1.3 MG/DL (0.1-1.0)
[2022-10-26 05:48] LABS: CREATININE SERUM 0.95 MG/DL (0.60-1.30)
[2022-10-26] MEDS: KCL 20 MEQ TAB (K-DUR) PO SCH (06:14)
[2022-10-26 07:10] VITALS: BP 114/75
[2022-10-26] MEDS: GABAPENTIN 600 MG (NEURONTIN) TAB PO SCH ×3 (08:40→20:26)
[2022-10-26] MEDS: OLANZapine 5 MG ODT (ZyPREXA ZYDIS) PO SCH (08:40)
[2022-10-26] MEDS: FUROSEMIDE 40 MG (LASIX) TAB PO SCH (08:41)
[2022-10-26] MEDS: AMIODARONE 200 MG (CORDARONE) TAB PO SCH ×2 (08:41→20:27)
[2022-10-26] MEDS: meTOproloL SUCCINATE 50 MG (TOPROL XL) TAB PO SCH (08:41)
[2022-10-26] MEDS: EMPAGLIFLOZIN 10 MG TABLET (JARDIANCE) PO SCH (08:41)
[2022-10-26] MEDS: SERTRALINE 50 MG (ZOLOFT) TABLET PO SCH (08:41)
[2022-10-26] MEDS: metFORMIN XR 500 MG (GLUCOPHAGE XR) TAB PO SCH ×2 (08:41→20:26)
[2022-10-26] MEDS: PANTOPRAZOLE 40 MG (PROTONIX) TAB PO SCH (08:41)
[2022-10-26] MEDS: LORazepam 1 MG (ATIVAN) TAB PO SCH ×2 (08:41→20:28)
[2022-10-26] MEDS: DOCUSATE SODIUM 100 MG (COLACE) CAP PO SCH ×2 (08:42→20:28)
[2022-10-26] MEDS: polyethylene glycoL POWDER 17 GM (MIRALAX) PACK PO SCH (08:42)
[2022-10-26] MEDS: lisINopril 5 MG (PRINIVIL) TABLET PO SCH (08:42)
[2022-10-26] MEDS: SPIRONOLACTONE 25 MG (ALDACTONE) TAB PO SCH (08:42)
--- NOTE | 2022-10-26 09:30 | Occ Therapy Progress Note ---
Therapy Progress Note OT attempted evaluation at 0940, pt again refused OT tx. Pt declined ADLS, stating he has already went to the bathroom and he doesn't want to get dressed. OT informed pt about purpose/benefit of OT, he verbalized understanding. Pt states he was able to dress himself yesterday, all except R sock due to LE pain. OT offered further OT services to work on this deficit, but pt declined services. OT to discharge pt at this time due to multiple refusals of OT evaluation/txs throughout his stay, and due to pt declining further services. D/C from OT. 1, refusal ENEDELIA REILLY OT Oct 26, 2022 09:30
--- NOTE | 2022-10-26 10:01 | Physical Therapy Daily Note ---
PT Daily Note-Current Subjective Patient agrees to PT. No c/o at this time. Pain Section J - Health Conditions 1. Rarely or not at all 2. Occasionally 3. Frequently 4. Almost constantly 8. Unable to answer Pain Effect on Sleep: 1 Pain Interference with Therapy: 1 Pain Interference w/Day-to-Day: 1 Mental Status Patient Orientation: Normal For Age Transfers SCALE: Activities may be completed with or without assistive devices. 8-Ugushdbond-kwjrswh completes the activity by him/herself with no assistance from a helper. 5-Set-up or Clean-up Assistance-helper sets up or cleans up; patient completes activity. [place] assists only prior to or following the activity. 4-Supervision or Touching Assistance-helper provides verbal cues and/or touching/steadying and/or contact guard assistance as patient completes activity. Assistance may be provided throughout the activity or intermittently. 3-Partial/Moderate Assistance-helper does LESS THAN HALF the effort. [place] lifts, holds or supports trunk or limbs, but provides less than half the effort. 2-Substantial/Maximal Assistance-helper does MORE THAN HALF the effort. [place] lifts or holds trunk or limbs and provides more than half the effort. 4-Hiynundyl-jhkdej does ALL the effort. Patient does none of the effort to complete the activity. Or, the assistance of 2 or more helpers is required for the patient to complete the activity. If activity was not attempted, code reason: 7-Patient Refused. 9-Not Applicable-not attempted and the patient did not perform the activity before the current illness, exacerbation or injury. 10-Not Attempted due to Environmental Limitations-(lack of equipment, weather restraints, etc.). 88-Not Attempted due to Medical Conditions or Safety Concerns. Sit to Stand (QC): 6 Gait Training Distance: 300' Walk 10 feet (QC): 5 Walk 50 ft with 2 Turns(QC): 5 Walk 150 ft (QC): 5 Gait Assistive Device: FWW very slow, steady gait sequence with noted cervical flexed posture. Assessment Patient tolerated increase in distance with ambulation. Patient remains seated EOB with needs met. PT Fdc Goals Fdc Goals PT Investor Relations Associate Goals Time Frame: Nov 06, 2022 Roll Left & Right (QC): 6 Sit to Lying (QC): 6 Lying-Sitting on Side/Bed(QC): 6 Sit to Stand (QC): 6 Chair/Vrt-fh-Gbiko Xfer(QC): 6 Toilet Transfer (QC): 6 Car Transfer (QC): 6 Walk 10 feet (QC): 5 Walk 50ft with 2 Turns (QC): 5 Walk 150 ft (QC): 5 PT Plan Treatment/Plan Treatment Plan: Continue Plan of Care Treatment Plan: Bed Mobility, Education, Functional Activity Damien, Functional Strength, Gait, Safety, Therapeutic Exercise, Transfers Treatment Duration: Nov 06, 2022 Frequency: 6 times per week Estimated Hrs Per Day: .25 hour per day Time Time In: 850 Time Out: 906 DATE: Oct 26, 2022 Total Billed Treatment Time: 16 Total Billed Treatment 1 visit FA 16 min TAMMY POSADA PT Oct 26, 2022 10:01
--- NOTE | 2022-10-26 11:02 | Progress Note - Cardiology ---
Cardiology SOAP Progress Note Objective: I&O/Vital Signs 10/26/22 10/26/22 10/27/22 10/27/22 20:25 23:08 01:00 03:22 Temp 36.8 36.1 Pulse 60 60 60 Resp 20 18 B/P (MAP) 99/65 (76) 99/63 (75) Pulse Ox 96 95 O2 Delivery Room Air Room Air Room Air 10/27/22 10/27/22 07:35 07:46 Temp 36.1 Pulse 98 60 Resp 18 B/P (MAP) 105/73 (84) Pulse Ox 91 O2 Delivery Room Air 10/27/22 00:00 Intake Total 1430 ml Output Total 2625 ml Balance -1195 ml Constitutional: AAO x 3, other (slow to respond, somnolent) Respiratory: other (diminshed lower lobes bilat) Cardiovascular: irregularly irregular, S1 and S2 Gastrointestional: audible bowel sounds Extremities: other (mod bilat LE swelling) Neurologic/Psychiatric: other (moves all limbs equally) Skin: No rash on exposed areas, No ulcerations on exposed areas Results/Procedures: Labs Laboratory Tests 10/27/22 05:06: Glucometer 86 10/27/22 05:19: White Blood Count 11.1H, Red Blood Count 4.41, Hemoglobin 12.5L, Hematocrit 39L, Mean Corpuscular Volume 89, Mean Corpuscular Hemoglobin 28, Mean Corpuscular Hemoglobin Concent 32, Red Cell Distribution Width 19.5H, Platelet Count 493H, Mean Platelet Volume 11.3, Immature Granulocyte % (Auto) 1, Neutrophils (%) (Auto) 70, Lymphocytes (%) (Auto) 16, Monocytes (%) (Auto) 10, Eosinophils (%) (Auto) 3, Basophils (%) (Auto) 1, Neutrophils # (Auto) 7.7, Lymphocytes # (Auto) 1.8, Monocytes # (Auto) 1.1H, Eosinophils # (Auto) 0.3, Basophils # (Auto) 0.1, Immature Granulocyte # (Auto) 0.1, Sodium Level 135, Potassium Level 4.0, Chloride Level 98, Carbon Dioxide Level 26, Anion Gap 11, Blood Urea Nitrogen 12, Creatinine 0.90, Estimat Glomerular Filtration Rate 109, BUN/Creatinine Ratio 13, Glucose Level 86, Calcium Level 9.9, Corrected Calcium 10.3H, Magnesium Level 2.0, Total Bilirubin 1.4H, Aspartate Amino Transf (AST/SGOT) 23, Alanine Aminotransferase (ALT/SGPT) 19, Alkaline Phosphatase 196H, Total Protein 7.8, Albumin 3.5 Microbiology 10/12/22 Gram Stain - Final, Complete 10/12/22 Sputum Culture - Final, Complete Usual upper respiratory travis Staphylococcus aureus Haemophilus influenza A/P: Assessment: Non-sustained WCT on 10/21/22-10/22/22, probably aberrance during A Fib with RVR - on amiodarone since 10/22/22. Heart rate is better controlled since and no recurrence or WCT Acute respiratory failure requiring intubation - extubated 10-16-22 - multi-factorial d/t pneumonia and acute on chronic systolic CHF Acute on chronic systolic congestive heart failure - Echo was done in April 2022 with ejection fraction 40 to 45% with biatrial enlargement, moderate mitral regurgitation, pulmonary artery pressure 45 to 50 mmHg. - Echo of 10-11-[address] Hernandez showed LVEF 35-40%. Mod sized L pleural effusion. Mild MR. Mild to mod TR. Persistent/permanent atrial fibrillation/flutter - History of ablation done in [place] in late 2020, previously refusing any further ablation - Had been maintained on Eliquis (unsure of compliance) - changed to Xarelto this admission Nonischemic cardiomyopathy - cardiac catheterization done in [place] around 2019 did not show any obstructive disease. History of methamphetamine abuse. - Still using it intermittently, he was found to have methamphetamine in his pocket during this hospitalization EtOH abuse. Acute renal failure - renal function improved Hyperlipidemia Tobaccoism History of noncompliance with medication or medical instruction History of elevated liver enzymes. Probably underlying cirrhosis seen on CTA of the abdomen in the past. Plan: Complex management issue d/t issues noted above along with non-compliance, EtOH abuse, and continuing meth abuse He wishes to go home. Repeat echo today. If EF less than 35%, then Life Vest Further complicated by non-sustained WCT. Amio initiated, iv load completed, continue orally Continue Aldactone, NOLVIA and Lasix Continue SGLT2-inhibitors Replenish K Monitor lab closely Replace electrolytes as indicated Xarelto for stroke stroke prophylaxis Physical therapy for bilat leg weakness Keep on tele Clinical Quality Measures AMI/AHF: ASA po Prior to arrival: No BAIMA,ANN L KNITTED GARMENT FINISHER Oct 26, 2022 11:02
[2022-10-26 11:09] VITALS: BP 103/60
--- NOTE | 2022-10-26 11:22 | Progress Note ---
Subjective Subjective/Events-last exam Patient states that he is doing well today. He is sleepy and did not sleep that well last night. Tolerating PO diet and ambulation. Review of Systems General: Fatigue Pulmonary: No Dyspnea, No Cough Cardiovascular: Edema; No: Chest Pain, Palpitations Gastrointestinal: No: Nausea, Vomiting, Abdominal Pain, Diarrhea, Constipation Neurological: Weakness, Incoordination Objective Exam Last Set of Vital Signs Vital Signs Date Time Temp Pulse Resp B/P (MAP) Pulse Ox O2 Delivery O2 Flow Rate FiO2 10/26/22 11:09 36.4 75 18 103/60 (74) 92 Room Air 0.00 0.00 Capillary Refill : Less Than 3 Seconds I&O Intake and Output 10/26/22 00:00 Intake Total 2720 ml Output Total 3201 ml Balance -481 ml Intake Oral 2720 ml Output Urine Total 3200 ml Stool Total 1 ml General: Alert, Oriented X3, No Acute Distress Lungs: Clear to Auscultation, Normal Air Movement Heart: Regular Rate, No Murmurs Abdomen: Normal Bowel Sounds, Soft, No Tenderness, No Masses Extremities: No Tenderness/Swelling, Other (1+ edema bilaterally) Neuro: Normal Speech Results/Procedures Lab Laboratory Tests 10/26/22 05:12: White Blood Count 12.1H, Red Blood Count 4.20L, Hemoglobin 12.2L, Hematocrit 38L , Mean Corpuscular Volume 91, Mean Corpuscular Hemoglobin 29, Mean Corpuscular Hemoglobin Concent 32, Red Cell Distribution Width 19.9H, Platelet Count 502H, Mean Platelet Volume 11.2, Immature Granulocyte % (Auto) 1, Neutrophils (%) (Auto) 71, Lymphocytes (%) (Auto) 16, Monocytes (%) (Auto) 10, Eosinophils (%) (Auto) 3, Basophils (%) (Auto) 1, Neutrophils # (Auto) 8.6H, Lymphocytes # (Auto) 1.9, Monocytes # (Auto) 1.2H, Eosinophils # (Auto) 0.3, Basophils # (Auto) 0.1, Immature Granulocyte # (Auto) 0.1, Sodium Level 135, Potassium Level 4.1, Chloride Level 96L, Carbon Dioxide Level 27, Anion Gap 12, Blood Urea Nitrogen 12, Creatinine 0.95, Estimat Glomerular Filtration Rate 102, BUN/Creatinine Ratio 13, Glucose Level 90, Calcium Level 9.8, Corrected Calcium 10.2H, Magnesium Level 2.0, Total Bilirubin 1.3H, Aspartate Amino Transf (AST/SGOT) 23, Alanine Aminotransferase (ALT/SGPT) 18, Alkaline Phosphatase 204H , Total Protein 7.7, Albumin 3.5 Microbiology 10/12/22 Gram Stain - Final, Complete 10/12/22 Sputum Culture - Final, Complete Usual upper respiratory travis Staphylococcus aureus Haemophilus influenza Assessment/Plan Assessment/Plan (1) Acute on chronic HFrEF (heart failure with reduced ejection fraction) Status: Acute Assessment & Plan: 10/25: Doing well today, will have f.u with cardiology after d/c (2) Atrial fibrillation with RVR Status: Resolved Assessment & Plan: Initially requiring Cardizem drip. Appreciate Cardiology recommendations. 10/25: Rate controlled, on OAC, bleeding precautions discussed with patient (3) Hypotension Status: Resolved (4) Respiratory failure Status: Resolved Qualifiers: Qualified Codes: J96.01 - Acute respiratory failure with hypoxia (5) HFrEF (heart failure with reduced ejection fraction) Status: Chronic Assessment & Plan: Chronic, EF 40% in April 2022 (6) Persistent atrial fibrillation Status: Chronic Assessment & Plan: 10/25: OAC (7) NICM (nonischemic cardiomyopathy) Status: Chronic (8) Rhabdomyolysis Status: Acute (9) Methamphetamine abuse Status: Chronic Assessment & Plan: Found to have methamphetamine on person while admitted. director of food and nutrition services when alert. 10/25: Discussed the importance of cessation, he is interested in inpatient rehab 10/26: Plan to d/c to jail house with plan of getting into inpatient rehab, ok to d/c tomorrow (10) Acute kidney injury Status: Resolved Assessment & Plan: Worsening renal function as of 10/11/22, suspect due to hypotension. Norepinephrine started for hypotension. 10/12- worsening, difficult management given fluid overload present 10/13- improved today, good urine output (11) Cardiomyopathy Status: Resolved Qualifiers: Qualified Codes: I42.9 - Cardiomyopathy, unspecified (12) HTN (hypertension) Status: Chronic (13) HLD (hyperlipidemia) Status: Chronic (14) DVT prophylaxis Status: Acute Assessment & Plan: enoxaparin (15) Physical debility Status: Acute Assessment & Plan: 10/25: IRF eval pending 10/26: IRF declined as patient is doing well with walker Clinical Quality Measures AMI/AHF: ASA po Prior to arrival: No JACOBY LINK MD Oct 26, 2022 11:22
[2022-10-26 15:37] VITALS: BP 100/63
--- NOTE | 2022-10-26 16:52 | Progress Note - Cardiology ---
Cardiology SOAP Progress Note Subjective: Continues to feel increasingly better Denies cp or palp or syncope No swelling No n/v/d Still has bilat leg weakness and tires easily Objective: I&O/Vital Signs 10/26/22 10/26/22 10/26/22 10/26/22 07:10 07:11 07:35 11:09 Temp 36.0 36.4 Pulse 68 64 75 Resp 20 18 B/P (MAP) 114/75 (88) 103/60 (74) Pulse Ox 96 92 O2 Delivery Room Air Room Air Room Air O2 Flow Rate 0.00 0.00 0.00 0.00 10/26/22 10/26/22 13:17 15:37 Temp 36.2 Pulse 75 62 Resp 16 B/P (MAP) 100/63 (75) Pulse Ox 94 O2 Delivery Room Air 10/26/22 00:00 Intake Total 2280 ml Output Total 1901 ml Balance 379 ml Constitutional: AAO x 3, other (slow to respond, somnolent) Respiratory: other (diminshed lower lobes bilat) Cardiovascular: irregularly irregular, S1 and S2 Gastrointestional: audible bowel sounds Extremities: other (mod bilat LE swelling) Neurologic/Psychiatric: other (moves all limbs equally) Skin: No rash on exposed areas, No ulcerations on exposed areas Results/Procedures: Labs Laboratory Tests 10/26/22 05:12: White Blood Count 12.1H, Red Blood Count 4.20L, Hemoglobin 12.2L, Hematocrit 38L , Mean Corpuscular Volume 91, Mean Corpuscular Hemoglobin 29, Mean Corpuscular Hemoglobin Concent 32, Red Cell Distribution Width 19.9H, Platelet Count 502H, Mean Platelet Volume 11.2, Immature Granulocyte % (Auto) 1, Neutrophils (%) (Auto) 71, Lymphocytes (%) (Auto) 16, Monocytes (%) (Auto) 10, Eosinophils (%) (Auto) 3, Basophils (%) (Auto) 1, Neutrophils # (Auto) 8.6H, Lymphocytes # (Auto) 1.9, Monocytes # (Auto) 1.2H, Eosinophils # (Auto) 0.3, Basophils # (Auto) 0.1, Immature Granulocyte # (Auto) 0.1, Sodium Level 135, Potassium Level 4.1, Chloride Level 96L, Carbon Dioxide Level 27, Anion Gap 12, Blood Urea Nitrogen 12, Creatinine 0.95, Estimat Glomerular Filtration Rate 102, BUN/Creatinine Ratio 13, Glucose Level 90, Calcium Level 9.8, Corrected Calcium 10.2H, Magnesium Level 2.0, Total Bilirubin 1.3H, Aspartate Amino Transf (AST/SGOT) 23, Alanine Aminotransferase (ALT/SGPT) 18, Alkaline Phosphatase 204H , Total Protein 7.7, Albumin 3.5 Microbiology 10/12/22 Gram Stain - Final, Complete 10/12/22 Sputum Culture - Final, Complete Usual upper respiratory travis Staphylococcus aureus Haemophilus influenza Laboratory Tests 10/25/22 05:35 10/26/22 05:12 A/P: Assessment: Non-sustained WCT on 10/21/22-10/22/22, probably aberrance during A Fib with RVR - on amiodarone since 10/22/22. Heart rate is better controlled since and no recurrence or WCT Acute respiratory failure requiring intubation - extubated 10-16-22 - multi-factorial d/t pneumonia and acute on chronic systolic CHF Acute on chronic systolic congestive heart failure - Echo was done in April 2022 with ejection fraction 40 to 45% with biatrial enlargement, moderate mitral regurgitation, pulmonary artery pressure 45 to 50 mmHg. - Echo of 10-11-[address] Hernandez showed LVEF 35-40%. Mod sized L pleural eff usion. Mild MR. Mild to mod TR. - Echo on 10-26-22: LVEF 50-55%, mod biatrial enlargement, mod plerual eff Persistent/permanent atrial fibrillation/flutter - History of ablation done in [place] in late 2020, previously refusing any further ablation - Had been maintained on Eliquis (unsure of compliance) - changed to Xarelto this admission Nonischemic cardiomyopathy - cardiac catheterization done in [place] around 2019 did not show any obstructive disease. History of methamphetamine abuse. - Still using it intermittently, he was found to have methamphetamine in his pocket during this hospitalization EtOH abuse. Acute renal failure - renal function improved Hyperlipidemia Tobaccoism History of noncompliance with medication or medical instruction History of elevated liver enzymes. Probably underlying cirrhosis seen on CTA of the abdomen in the past. Plan: * Echo shows improvement of EF to 50-55% * No WCT * CXR to eval for pleural eff seen on echo of 1-17-23. If considerable eff is seen, then consider thoracentesis * Advised off drug and alcohol use * Monitor labs * Continue OAC for stroke prophylaxis Clinical Quality Measures AMI/AHF: ASA po Prior to arrival: SAVI Cheng MD FACP FAC CCDS Oct 26, 2022 16:52
[2022-10-26] MEDS: RIVAROXABAN 20 MG TABLET (XARELTO) PO SCH (17:30)
[2022-10-26 19:20] VITALS: BP 106/63
[2022-10-26] MEDS: MELATONIN 3 MG TABLET PO PRN (20:26)
[2022-10-26] MEDS: rOPINIRole 0.25 MG (REQUIP) TAB PO SCH (20:26)
[2022-10-26] MEDS: MIRTAZAPINE 15 MG (REMERON) TAB PO SCH (20:26)
[2022-10-26 23:08] VITALS: BP 99/65
[2022-10-27 03:22] VITALS: BP 99/63
[2022-10-27] MEDS: KCL 20 MEQ TAB (K-DUR) PO SCH (05:07)
[2022-10-27 05:50] LABS: BASOPHILS # (AUTO) 0.1 10^3/uL (0.0-0.1); BASOPHILS % (AUTO) 1 % (0-10); EOSINOPHILS # (AUTO) 0.3 10^3/uL (0.0-0.3); EOSINOPHILS % (AUTO) 3 % (0-10); HEMATOCRIT 39 % (40-54); HEMOGLOBIN 12.5 g/dL (13.3-17.7); LYMPHOCYTES # (AUTO) 1.8 10^3/uL (1.0-4.0); LYMPHOCYTES % (AUTO) 16 % (12-44); MEAN CORPUSCULAR HEMOGLOBIN 28 pg (25-34); MEAN CORPUSCULAR HGB CONC 32 g/dL (32-36); MEAN CORPUSCULAR VOLUME 89 fL (80-99); MEAN PLATELET VOLUME 11.3 fL (9.0-12.2); MONOCYTES # (AUTO) 1.1 10^3/uL (0.0-1.0); MONOCYTES % (AUTO) 10 % (0-12); NEUTROPHILS # (AUTO) 7.7 10^3/uL (1.8-7.8); NEUTROPHILS % (AUTO) 70 % (42-75); PLATELET COUNT 493 10^3/uL (130-400); WHITE BLOOD COUNT 11.1 10^3/uL (4.3-11.0)
[2022-10-27 06:08] LABS: ALBUMIN 3.5 GM/DL (3.2-4.5)
[2022-10-27 06:10] LABS: CALCIUM 9.9 MG/DL (8.5-10.1)
[2022-10-27 06:11] LABS: TOTAL PROTEIN 7.8 GM/DL (6.4-8.2)
[2022-10-27 06:13] LABS: BILIRUBIN,TOTAL 1.4 MG/DL (0.1-1.0)
[2022-10-27 06:15] LABS: CREATININE SERUM 0.9 MG/DL (0.60-1.30)
[2022-10-27 07:35] VITALS: BP 105/73
--- NOTE | 2022-10-27 08:15 | Diagnostic Imaging Report ---
EXAMINATION: Chest 2 view HISTORY: Pleural effusion COMPARISON: 10/23/2022 FINDINGS: There are stable moderate interstitial opacities. No pleural effusion or pneumothorax. Heart size normal. Right upper extremity peripherally inserted central venous catheter tip terminates in the superior vena cava. IMPRESSION: 1. Stable moderate interstitial opacities favored to represent edema. Dictated by: Dictated on workstation # [id number]
[2022-10-27] MEDS: PANTOPRAZOLE 40 MG (PROTONIX) TAB PO SCH (08:45)
[2022-10-27] MEDS: OLANZapine 5 MG ODT (ZyPREXA ZYDIS) PO SCH (08:45)
[2022-10-27] MEDS: GABAPENTIN 600 MG (NEURONTIN) TAB PO SCH ×2 (08:45→13:30)
[2022-10-27] MEDS: AMIODARONE 200 MG (CORDARONE) TAB PO SCH (08:46)
[2022-10-27] MEDS: FUROSEMIDE 40 MG (LASIX) TAB PO SCH (08:46)
[2022-10-27] MEDS: SPIRONOLACTONE 25 MG (ALDACTONE) TAB PO SCH (08:46)
[2022-10-27] MEDS: EMPAGLIFLOZIN 10 MG TABLET (JARDIANCE) PO SCH (08:46)
[2022-10-27] MEDS: DOCUSATE SODIUM 100 MG (COLACE) CAP PO SCH (08:47)
[2022-10-27] MEDS: meTOproloL SUCCINATE 50 MG (TOPROL XL) TAB PO SCH (08:47)
[2022-10-27] MEDS: LORazepam 1 MG (ATIVAN) TAB PO SCH (08:47)
[2022-10-27] MEDS: metFORMIN XR 500 MG (GLUCOPHAGE XR) TAB PO SCH (08:48)
[2022-10-27] MEDS: lisINopril 5 MG (PRINIVIL) TABLET PO SCH (08:48)
[2022-10-27] MEDS: polyethylene glycoL POWDER 17 GM (MIRALAX) PACK PO SCH (08:48)
[2022-10-27] MEDS: SERTRALINE 50 MG (ZOLOFT) TABLET PO SCH (08:48)
--- NOTE | 2022-10-27 09:02 | Physical Therapy Daily Note ---
PT Daily Note-Current Subjective Patient in bed pre tx, agrees to PT, has 6/10 pain in right elbow, knee, and foot. Pain Section J - Health Conditions 1. Rarely or not at all 2. Occasionally 3. Frequently 4. Almost constantly 8. Unable to answer Pain Effect on Sleep: 1 Pain Interference with Therapy: 1 Pain Interference w/Day-to-Day: 1 Appearance Patient sitting EOB post tx with nurse call, phone, tray, nurse in room giving medication. Mental Status Patient Orientation: Person, Place, Situation Transfers SCALE: Activities may be completed with or without assistive devices. 9-Trmutklnsr-vyjzzky completes the activity by him/herself with no assistance from a helper. 5-Set-up or Clean-up Assistance-helper sets up or cleans up; patient completes activity. [place] assists only prior to or following the activity. 4-Supervision or Touching Assistance-helper provides verbal cues and/or touching/steadying and/or contact guard assistance as patient completes activity. Assistance may be provided throughout the activity or intermittently. 3-Partial/Moderate Assistance-helper does LESS THAN HALF the effort. [place] lifts, holds or supports trunk or limbs, but provides less than half the effort. 2-Substantial/Maximal Assistance-helper does MORE THAN HALF the effort. [place] lifts or holds trunk or limbs and provides more than half the effort. 0-Nqzycuige-borhcz does ALL the effort. Patient does none of the effort to complete the activity. Or, the assistance of 2 or more helpers is required for the patient to complete the activity. If activity was not attempted, code reason: 7-Patient Refused. 9-Not Applicable-not attempted and the patient did not perform the activity before the current illness, exacerbation or injury. 10-Not Attempted due to Environmental Limitations-(lack of equipment, weather restraints, etc.). 88-Not Attempted due to Medical Conditions or Safety Concerns. Roll Left & Right (QC): 6 Lying to Sitting/Side of Bed(Q: 6 Sit to Stand (QC): 4 Chair/Idv-xy-Ljwmv Xfer(QC): 4 CGA for transfers Gait Training Distance: 200' Walk 10 feet (QC): 4 Walk 50 ft with 2 Turns(QC): 4 Walk 150 ft (QC): 4 Gait Persons Needed: 1 Gait Assistive Device: FWW CGA, very slow ambulation, needed several standing rest breaks Exercises Seated Therapy Exercises: Ankle pumps, Long arc quads Seated Reps: 20 Treatments transfers, ambulation, LE ROM Assessment Current Status: Fair Progress improving endurance PT Retirement Goals Dowel Pin Man Goals PT Retirement Goals Time Frame: Nov 06, 2022 Roll Left & Right (QC): 6 Sit to Lying (QC): 6 Lying-Sitting on Side/Bed(QC): 6 Sit to Stand (QC): 6 Chair/Bbw-cy-Chujh Xfer(QC): 6 Toilet Transfer (QC): 6 Car Transfer (QC): 6 Walk 10 feet (QC): 5 Walk 50ft with 2 Turns (QC): 5 Walk 150 ft (QC): 5 PT Plan Problem List Problem List: Activity Tolerance, Functional Strength, Safety, Balance, Gait, Transfer, Bed Mobility, ROM Treatment/Plan Treatment Plan: Continue Plan of Care Treatment Plan: Bed Mobility, Education, Functional Activity Damien, Functional Strength, Gait, Safety, Therapeutic Exercise, Transfers Treatment Duration: Nov 06, 2022 Frequency: 6 times per week Estimated Hrs Per Day: .25 hour per day Safety Risks/Education Patient Education: Gait Training, Transfer Techniques, Correct Positioning, Safety Issues Teaching Recipient: Patient Teaching Methods: Demonstration, Discussion Response to Teaching: Reinforcement Needed Time Time In: 837 Time Out: 0848 DATE: Oct 27, 2022 Total Billed Treatment Time: 10 Total Billed Treatment 1 visit FA QUIRINO CONNELL PT Oct 27, 2022 09:02
[2022-10-27] MEDS ORDERED: METO50TA7 PO (09:49)
[2022-10-27] MEDS ORDERED: AMIO400T5 PO (09:49)
[2022-10-27] MEDS ORDERED: LISI2.5T13 PO (09:49)
[2022-10-27] MEDS ORDERED: EMPA10TA PO (09:49)
[2022-10-27] MEDS ORDERED: DILT240C91 PO (09:49)
[2022-10-27] MEDS ORDERED: POTA-169 PO (09:49)
--- NOTE | 2022-10-27 11:35 | Progress Note - Cardiology ---
Cardiology SOAP Progress Note Subjective: No cp or palp or syncope No shortness of breath Gen weakness and bilat leg weakness are improving No n/v/d Objective: I&O/Vital Signs 10/27/22 10/27/22 10/27/22 10/27/22 01:00 03:22 07:35 07:46 Temp 36.1 36.1 Pulse 60 60 98 60 Resp 18 18 B/P (MAP) 99/63 (75) 105/73 (84) Pulse Ox 95 91 O2 Delivery Room Air Room Air 10/27/22 00:00 Intake Total 1430 ml Output Total 2625 ml Balance -1195 ml Constitutional: AAO x 3, other (slow to respond, somnolent) Respiratory: other (diminshed lower lobes bilat) Cardiovascular: irregularly irregular, S1 and S2 Gastrointestional: audible bowel sounds Extremities: other (mod bilat LE swelling) Neurologic/Psychiatric: other (moves all limbs equally) Skin: No rash on exposed areas, No ulcerations on exposed areas Results/Procedures: Labs Laboratory Tests 10/27/22 05:06: Glucometer 86 10/27/22 05:19: White Blood Count 11.1H, Red Blood Count 4.41, Hemoglobin 12.5L, Hematocrit 39L, Mean Corpuscular Volume 89, Mean Corpuscular Hemoglobin 28, Mean Corpuscular Hemoglobin Concent 32, Red Cell Distribution Width 19.5H, Platelet Count 493H, Mean Platelet Volume 11.3, Immature Granulocyte % (Auto) 1, Neutrophils (%) (Auto) 70, Lymphocytes (%) (Auto) 16, Monocytes (%) (Auto) 10, Eosinophils (%) (Auto) 3, Basophils (%) (Auto) 1, Neutrophils # (Auto) 7.7, Lymphocytes # (Auto) 1.8, Monocytes # (Auto) 1.1H, Eosinophils # (Auto) 0.3, Basophils # (Auto) 0.1, Immature Granulocyte # (Auto) 0.1, Sodium Level 135, Potassium Level 4.0, Chloride Level 98, Carbon Dioxide Level 26, Anion Gap 11, Blood Urea Nitrogen 12, Creatinine 0.90, Estimat Glomerular Filtration Rate 109, BUN/Creatinine Ratio 13, Glucose Level 86, Calcium Level 9.9, Corrected Calcium 10.3H, Magnesium Level 2.0, Total Bilirubin 1.4H, Aspartate Amino Transf (AST/SGOT) 23, Alanine Aminotransferase (ALT/SGPT) 19, Alkaline Phosphatase 196H, Total Protein 7.8, Albumin 3.5 Microbiology 10/12/22 Gram Stain - Final, Complete 10/12/22 Sputum Culture - Final, Complete Usual upper respiratory travis Staphylococcus aureus Haemophilus influenza Laboratory Tests 10/26/22 05:12 10/27/22 05:19 A/P: Assessment: Non-sustained WCT on 10/21/22-10/22/22, probably aberrance during A Fib with RVR - on amiodarone since 10/22/22. Heart rate is better controlled since and no recurrence of WCT Acute respiratory failure requiring intubation - extubated 10-16-22 - multi-factorial d/t pneumonia and acute on chronic systolic CHF Acute on chronic systolic congestive heart failure - Echo was done in April 2022 with ejection fraction 40 to 45% with biatrial enlargement, moderate mitral regurgitation, pulmonary artery pressure 45 to 50 mmHg. - Echo of 10-11-[address] Hernandez showed LVEF 35-40%. Mod sized L pleural effusion. Mild MR. Mild to mod TR. - Echo on 10-26-22: LVEF 50-55%, mod biatrial enlargement, mod plerual eff Persistent/permanent atrial fibrillation/flutter - History of ablation done in [place] in late 2020, previously refusing any further ablation - Had been maintained on Eliquis (unsure of compliance) - changed to Xarelto this admission Nonischemic cardiomyopathy - cardiac catheterization done in [place] around 2019 did not show any obstructive disease. History of methamphetamine abuse. - Still using it intermittently, he was found to have methamphetamine in his pocket during this hospitalization EtOH abuse. Acute renal failure - renal function improved Hyperlipidemia Tobaccoism History of noncompliance with medication or medical instruction History of elevated liver enzymes. Probably underlying cirrhosis seen on CTA of the abdomen in the past. Plan: * CXR results (10/27/22) reviewed * Echo shows improvement of EF to 50-55% * No WCT * Advised off drug and alcohol use * Monitor labs * Continue OAC for stroke prophylaxis * Cardiac outpt f/u advised at our office Clinical Quality Measures AMI/AHF: ASA po Prior to arrival: SAVI Cheng MD FACP FAC CCDS Oct 27, 2022 11:35
[2022-10-27 12:00] VITALS: BP 105/75
--- NOTE | 2022-10-27 13:24 | Discharge Summary ---
Diagnosis/Chief Complaint Date of Admission Oct 08, 2022 at 15:15 Date of Discharge 10/27/22 Discharge Diagnosis Problems/Diagnosis: (1) Acute on chronic HFrEF (heart failure with reduced ejection fraction) Assessment & Plan: 10/25: Doing well today, will have f.u with cardiology after d/c Status: Acute (2) Atrial fibrillation with RVR Assessment & Plan: Initially requiring Cardizem drip. Appreciate Cardiology recommendations. 10/25: Rate controlled, on OAC, bleeding precautions discussed with patient Status: Resolved Resolution Date/Time: 10/25/22 @ 14:47 (3) Hypotension Status: Resolved Resolution Date/Time: 10/25/22 @ 14:48 (4) Respiratory failure Qualifiers: Qualified Codes: J96.01 - Acute respiratory failure with hypoxia Status: Resolved Resolution Date/Time: 10/25/22 @ 14:49 (5) HFrEF (heart failure with reduced ejection fraction) Assessment & Plan: Chronic, EF 40% in April 2022 Status: Chronic (6) Persistent atrial fibrillation Assessment & Plan: 10/25: OAC Status: Chronic (7) NICM (nonischemic cardiomyopathy) Status: Chronic (8) Rhabdomyolysis Status: Acute (9) Methamphetamine abuse Assessment & Plan: Found to have methamphetamine on person while admitted. access services assistant when alert. 10/25: Discussed the importance of cessation, he is interested in inpatient rehab 10/26: Plan to d[facility]c to retirement house with plan of getting into inpatient rehab, ok to d/c tomorrow Status: Chronic (10) Acute kidney injury Assessment & Plan: Worsening renal function as of 10/11/22, suspect due to hypotension. Norepinephrine started for hypotension. 10/12- worsening, difficult management given fluid overload present 10/13- improved today, good urine output Status: Resolved Resolution Date/Time: 10/14/22 @ 08:38 (11) Cardiomyopathy Qualifiers: Qualified Codes: I42.9 - Cardiomyopathy, unspecified Status: Resolved Resolution Date/Time: 10/25/22 @ 14:50 (12) HTN (hypertension) Status: Chronic (13) HLD (hyperlipidemia) Status: Chronic (14) DVT prophylaxis Assessment & Plan: enoxaparin Status: Acute (15) Physical debility Assessment & Plan: 10/25: IRF eval pending 10/26: IRF declined as patient is doing well with walker Status: Acute Discharge Summary-Simple/Stand Consultations Discharge Physical Examination Allergies: Coded Allergies: hydrocodone (Verified Allergy, Severe, ITCHING, 08/05/22) Penicillins (Verified Allergy, Unknown, 11/09/20) Vitals & I&Os Vital Sign - Last 12Hours Date Time Temp Pulse Resp B/P (MAP) Pulse Ox O2 Delivery O2 Flow Rate FiO2 10/27/22 07:46 60 10/27/22 07:35 36.1 18 105/73 (84) 91 Room Air 10/26/22 11:09 0.00 0.00 Intake and Output 10/27/22 00:00 Intake Total 1430 ml Output Total 2625 ml Balance -1195 ml Hospital Course See final discharge diagnosis. Discharge Instructions to patient/family Please see electronic discharge instructions given to patient. Discharge Medications Reviewed and agree with Discharge Medication list on patient's Discharge Instruction sheet Clinical Quality Measures AMI/AHF: ASA po Prior to arrival: JACOBY Crisostomo MD Oct 27, 2022 13:24
--- NOTE | 2022-10-27 13:27 | Discharge Summary ---
Discharge [facility] Reconcile Patient Problems Problems Reviewed?: Yes Discharge Medications New, Converted or Re-Newed RX: Transmitted to Pharmacy New Medications: Amiodarone HCl (Amiodarone HCl) 400 Mg Tablet 400 MG PO BID, #60 TAB 3 Refills Lisinopril (Lisinopril) 2.5 Mg Tablet 2.5 MG PO DAILY, #30 TAB 5 Refills Diltiazem HCl (Diltiazem 24Hr ER) 240 Mg Cap.er.24h 240 MG PO DAILY, #30 CAP 5 Refills Empagliflozin (Jardiance) 10 Mg Tablet 10 MG PO DAILY, #30 TAB 5 Refills Metoprolol Succinate (Metoprolol Succinate) 50 Mg Tab.er.24h 50 MG PO DAILY, #30 TAB 5 Refills Potassium Chloride (Klor-Con M20) 20 Meq Tab.er.prt 20 MEQ PO DAILY@0700, #30 TAB 5 Refills Continued Medications: Furosemide (Furosemide) 40 Mg Tablet 40 MG PO DAILY, TAB Gabapentin (Gabapentin) 600 Mg Tablet 600 MG PO TID, TAB Metformin HCl (Metformin HCl ER) 500 Mg Tab.er.24 500 MG PO BID, TAB Mirtazapine (Mirtazapine) 15 Mg Tablet 7.5 MG PO DAILY, TAB TAKES OF A (15MG) TABLET Olanzapine (Olanzapine) 5 Mg Tablet 5 MG PO DAILY, TAB Pantoprazole Sodium (Pantoprazole Sodium) 40 Mg Tablet.dr 40 MG PO DAILY, TAB Polyethylene Glycol 3350 (Miralax) 17 Gram Powd.pack 17 GM PO DAILY, EACH Rivaroxaban (Xarelto) 20 Mg Tablet 20 MG PO DAILY, TAB Ropinirole HCl (Ropinirole HCl) 0.5 Mg Tablet 0.5 MG PO HS, TAB Sertraline HCl (Sertraline HCl) 50 Mg Tablet 50 MG PO DAILY, TAB Spironolactone (Spironolactone) 25 Mg Tablet 25 MG PO DAILY, TAB Discontinued Medications: Dapagliflozin Propanediol (Farxiga) 5 Mg Tablet 5 MG PO DAILY, TAB Metoprolol Succinate (Metoprolol Succinate) 25 Mg Tab.er.24h 25 MG PO DAILY, TAB Patient Instructions Goal/Follow Up Appt: F.u with PCP 1-2 weeks Activity & Diet Discharge Diet: Cardiac Diet Activity as Tolerated: Yes JACOBY LINK MD Oct 27, 2022 13:27
[2022-10-27 15:10] VITALS: BP 105/75
== END 2022-10-27 15:10 | disposition home or self-care (01) | DRG 207 ==
LOC: EDUNIT# 13:27 → ER 13:28 → ICU 15:15 → 4TH 10-20 14:50 → ICU 10-22 03:34 → 4TH 10-23 14:11
PROVIDERS: ADMIT Internal Medicine; ATTEND Family Medicine
PROC: 5A1955Z Respiratory Ventilation, Greater than 96 Consecutive Hours (ICD-10-PCS; principal; 2022-10-08)
PROC: 0BH17EZ Insertion of Endotracheal Airway into Trachea, Via Natural or Artificial Opening (ICD-10-PCS; 2022-10-08)
DX: J96.01 Acute respiratory failure with hypoxia (principal); I50.23 Acute on chronic systolic (congestive) heart failure; J15.212 Pneumonia due to Methicillin resistant Staphylococcus aureus; J14 Pneumonia due to Hemophilus influenzae; I48.21 Permanent atrial fibrillation; I48.92 Unspecified atrial flutter; I42.9 Cardiomyopathy, unspecified; N17.9 Acute kidney failure, unspecified; F15.13 Other stimulant abuse with withdrawal; Z20.822 Contact with and (suspected) exposure to COVID-19; M62.82 Rhabdomyolysis; I47.20 Ventricular tachycardia, unspecified; I11.0 Hypertensive heart disease with heart failure; E78.00 Pure hypercholesterolemia, unspecified; K21.9 Gastro-esophageal reflux disease without esophagitis; E66.9 Obesity, unspecified; F17.210 Nicotine dependence, cigarettes, uncomplicated; I34.0 Nonrheumatic mitral (valve) insufficiency; I95.9 Hypotension, unspecified; F41.9 Anxiety disorder, unspecified; M25.561 Pain in right knee; Z68.35 Body mass index [BMI] 35.0-35.9, adult
CPT/HCPCS: 31500; 36415; 36569; 36600; 51702; 71045; 71046; 76937; 80053; 80061; 80162; 80202; 80306; 81000; 82550; 82553; 82805; 82947; 83735; 83874; 84100; 84145; 84478; 84484; 85007; 85025; 85027; 85610; 85730; 86141; 87070; 87077; 87081; 87185; 87186; 87205; 87636; 93005; 93041; 93306; 93308; 94003; 94640; 94760; 94799; 96361; 96365; 96367; 96368; 96372; 96375; 96376

== ENCOUNTER 2022-10-30 12:19 | Emergency (ER) | payer OTHER ==
[~2022-10-30] VITALS: Ht 180.3 cm; Wt 108.8 kg
[~2022-10-30 12:19] MED LIST changes: +AMIO400T5 PO; +DAPA5TAB PO; +DILT240C91 PO; +EMPA10TA PO; +LISI2.5T13 PO; +METF-478 PO; +POLY17PO6 PO
--- NOTE | 2022-10-30 12:41 | ED General ---
General Chief Complaint: Respiratory Problems Stated Complaint: REACTION TO MEDICATIONS Nursing Triage Note: PT AMB TO [facility] WITH COMPLAINT OF SOA AND "FEELING WEIRD". PT WAS INTUBATED FOR MULTIPLE DAYS RECENTLY FOR AGITATION DUE TO METH. STATES STARTED NEW MEDICATIONS AFTER BEING DISCHARGED. Source of Information: Patient Exam Limitations: No Limitations History of Present Illness Date Seen by Provider: Oct 30, 2022 Time Seen by Provider: 12:31 Initial Comments Patient is a 42-year-old with a history of nonischemic cardiomyopathy, methamphetamine abuse, persistent A. fib/a flutter who presents to the emergency department with a chief complaint of insomnia for 2 days, shortness of breath, body aches, specifically knee pain and "numbness" to his left big toe. He is very agitated, distressed and tearful that he has not been able to sleep. He is concerned that all the new medications he is on is contributing to his lack of ability to sleep. He denies fevers, chills, cough or congestion. No nausea, vomiting or diarrhea. No chest pain this afternoon. He states he is compliant with his medications and he takes everything that he brought in the bag with him however of note several are missing specifically his Xarelto. He is not sure where that one is. He states that he has been clean off methamphetamine, he has quit smoking and is not using caffeine. He is very tearful and apprehensive. Vital signs are stable right now, his heart rate is in the 60s. Blood pressure is good, oxygen saturations are good. He is exhibiting no increased work of breathing or respiratory distress. Lungs are clear. Timing/Duration: 1-2 Days Severity: Severe Associated Systoms: Malaise, Shortness of Air, Other (insomnia; leg/knee pain (right)) Allergies and Home Medications Allergies Coded Allergies: hydrocodone (Verified Allergy, Severe, ITCHING, 08/05/22) Penicillins (Verified Allergy, Unknown, 11/09/20) Patient Home Medication List Home Medication List Reviewed: Yes Amiodarone HCl (Amiodarone HCl) 400 Mg Tablet, 400 MG PO BID Prescribed by: ANN RHOADES on 10/27/22 0949 Diltiazem HCl (Diltiazem 24Hr ER) 240 Mg Cap.er.24h, 240 MG PO DAILY Prescribed by: ANN RHOADES on 10/27/22 0949 Empagliflozin (Jardiance) 10 Mg Tablet, 10 MG PO DAILY Prescribed by: ANN RHOADES on 10/27/22 0949 Furosemide (Furosemide) 40 Mg Tablet, 40 MG PO DAILY, (Reported) Entered as Reported by: EDER VARGAS on 07/05/22 0902 Gabapentin (Gabapentin) 600 Mg Tablet, 600 MG PO TID, (Reported) Entered as Reported by: BRAYAN AYERS on 07/03/22 1002 Lisinopril (Lisinopril) 2.5 Mg Tablet, 2.5 MG PO DAILY Prescribed by: ANN RHOADES on 10/27/22 09 Metformin HCl (Metformin HCl ER) 500 Mg Tab.er.24, 500 MG PO BID, (Reported) Entered as Reported by: KLAUDIA OTTO on 10/12/22 144 Metoprolol Succinate (Metoprolol Succinate) 50 Mg Tab.er.24h, 50 MG PO DAILY Prescribed by: ANN RHOADES on 10/27/22 09 Mirtazapine (Mirtazapine) 15 Mg Tablet, 7.5 MG PO DAILY, (Reported) Entered as Reported by: BRAYAN AYERS on 07/03/22 1002 Olanzapine (Olanzapine) 5 Mg Tablet, 5 MG PO DAILY, (Reported) Entered as Reported by: BRAYAN AYERS on 07/03/22 1002 Pantoprazole Sodium (Pantoprazole Sodium) 40 Mg Tablet.dr, 40 MG PO DAILY, (Reported) Entered as Reported by: KLAUDIA OTTO on 10/12/22 144 Polyethylene Glycol 3350 (Miralax) 17 Gram Powd.pack, 17 GM PO DAILY, (Reported) Entered as Reported by: KLAUDIA OTTO on 10/12/22 144 Potassium Chloride (Klor-Con M20) 20 Meq Tab.er.prt, 20 MEQ PO DAILY@0700 Prescribed by: ANN RHOADES on 10/27/22 0949 Rivaroxaban (Xarelto) 20 Mg Tablet, 20 MG PO DAILY, (Reported) Entered as Reported by: KLAUDIA OTTO on 10/12/22 1445 Ropinirole HCl (Ropinirole HCl) 0.5 Mg Tablet, 0.5 MG PO HS, (Reported) Entered as Reported by: BRAYAN AYERS on 07/03/22 1002 Sertraline HCl (Sertraline HCl) 50 Mg Tablet, 50 MG PO DAILY, (Reported) Entered as Reported by: BRAYAN AYERS on 07/03/22 1002 Spironolactone (Spironolactone) 25 Mg Tablet, 25 MG PO DAILY, (Reported) Entered as Reported by: BRAYAN AYERS on 07/03/22 1002 Discontinued Medications Dapagliflozin Propanediol (Farxiga) 5 Mg Tablet, 5 MG PO DAILY, (Reported) Entered as Reported by: KLAUDIA OTTO on 10/12/22 1445 Metoprolol Succinate (Metoprolol Succinate) 25 Mg Tab.er.24h, 25 MG PO DAILY, (Reported) Entered as Reported by: KLAUDIA OTTO on 10/12/22 1445 Review of Systems Review of Systems Constitutional: see HPI EENTM: no symptoms reported Respiratory: short of breath Cardiovascular: no symptoms reported Gastrointestinal: no symptoms reported Genitourinary: no symptoms reported Musculoskeletal: joint pain (right knee) Psychiatric/Neurological: Anxiety, Emotional Problems Past Awpocfw-Isstio-Rbuckm Hx Immunizations Up To Date Tetanus Booster (TDap): Unknown First/Initial COVID19 Vaccinat: N/A Second COVID19 Vaccination Edinson: N/A Third COVID19 Vaccination Date: N/A Past Medical History Surgery/Hospitalization HX: A-FIB, HF, AFLUTTER Surgeries: Yes (HERNIA REPAIR) Abdominal, Appendectomy Respiratory: No Cardiac: Yes (CHF 30-35% EF) Atrial Fibrillation, Cardiomyopathy, High Cholesterol, Hypertension Neurological: No Genitourinary: No Gastrointestinal: Yes Gastroesophageal Reflux Musculoskeletal: No Endocrine: Yes (OBESITY, borderline diabetes) HEENT: No Cancer: No Psychosocial: Yes (SUBSTANCE ABUSE) Integumentary: Yes (TATTOOS) Blood Disorders: No Family Medical History No Pertinent Family Hx SOCIAL HISTORY: -ETOH--REGULAR USE -DRUGS--METHAMPHETAMINES -SMOKES 1 PPD PAST SURGICAL HISTORY: -APPENDECTOMY -HERNIA REPAIR -CARDIOVERSIONS ECHOCARDIOGRAM 11/13/20--EF 30-35%, NO REGIONAL WALL MOTION ABNORMALITIES. EXTREME NON-COMPLIANCE IN ALL ASPECTS OF CARE Physical Exam Vital Signs Vital Signs - First Documented 10/30/22 12:25 Temp 35.7 Pulse 83 Resp 25 B/P (MAP) 120/79 (93) Pulse Ox 97 O2 Delivery Room Air Capillary Refill : Less Than 3 Seconds Height, Weight, BMI Height: '" Weight: lbs. oz. 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6 13.3-17.7 g/dL Hematocrit 43 40-54 % Mean Corpuscular Volume 88 80-99 fL Mean Corpuscular Hemoglobin 28 25-34 pg Mean Corpuscular Hemoglobin Concent 32 32-36 g/dL Red Cell Distribution Width 19.0 H 10.0-14.5 % Platelet Count 491 H 130-400 10^3/uL Mean Platelet Volume 11.1 9.0-12.2 fL Immature Granulocyte % (Auto) 1 % Neutrophils (%) (Auto) 83 H 42-75 % Lymphocytes (%) (Auto) 7 L 12-44 % Monocytes (%) (Auto) 8 0-12 % Eosinophils (%) (Auto) 1 0-10 % Basophils (%) (Auto) 1 0-10 % Neutrophils # (Auto) 12.5 H 1.8-7.8 10^3/uL Lymphocytes # (Auto) 1.1 1.0-4.0 10^3/uL Monocytes # (Auto) 1.2 H 0.0-1.0 10^3/uL Eosinophils # (Auto) 0.1 0.0-0.3 10^3/uL Basophils # (Auto) 0.1 0.0-0.1 10^3/uL Immature Granulocyte # (Auto) 0.1 0.0-0.1 10^3/uL Neutrophils % (Manual) 82 % Lymphocytes % (Manual) 5 % Monocytes % (Manual) 10 % Eosinophils % (Manual) 2 % Basophils % (Manual) 0 % Band Neutrophils 1 % Anisocytosis SLIGHT Prothrombin Time 16.4 H 12.2-14.7 SEC INR Comment 1.3 0.8-1.4 Activated Partial Thromboplast Time 39 H 24-35 SEC Sodium Level 133 L 135-145 MMOL/L Potassium Level 4.3 3.6-5.0 MMOL/L Chloride Level 98 98-107 MMOL/L Carbon Dioxide Level 21 21-32 MMOL/L Anion Gap 14 5-14 MMOL/L Blood Urea Nitrogen 15 7-18 MG/DL Creatinine 1.16 0.60-1.30 MG/DL Estimat Glomerular Filtration Rate 80 BUN/Creatinine Ratio 13 Glucose Level 167 H 70-105 MG/DL Calcium Level 10.0 8.5-10.1 MG/DL Corrected Calcium 9.9 8.5-10.1 MG/DL Total Bilirubin 1.6 H 0.1-1.0 MG/DL Aspartate Amino Transf (AST/SGOT) 30 5-34 U/L Alanine Aminotransferase (ALT/SGPT) 22 0-55 U/L Alkaline Phosphatase 226 H 40-136 U/L B-Type Natriuretic Peptide 1395.3 H <100.0 PG/ML Total Protein 8.9 H 6.4-8.2 GM/DL Albumin 4.1 3.2-4.5 GM/DL My Orders Orders - SHASTA RAMON MD Ed Iv/Invasive Line Start (10/30/22 12:41) Ekg Tracing (10/30/22 12:41) Chest 1 View, Ap/Pa Only (10/30/22 12:41) Cbc With Automated Diff (10/30/22 12:41) Comprehensive Metabolic Panel (10/30/22 12:41) Protime With Inr (10/30/22 12:41) Partial Thromboplastin Time (10/30/22 12:41) Bnp [place] (10/30/22 12:49) Hydroxyzine Cap/Tab (Vistaril) (10/30/22 13:00) Manual Differential (10/30/22 12:54) Medications Given in ED Current Medications Medications Dose Ordered Sig/[place] Route Start Time Stop Time Status Last Admin Dose Admin Hydroxyzine Pamoate 100 mg ONCE ONCE PO 10/30/22 13:00 10/30/22 13:01 DC 10/30/22 13:33 100 MG Vital Signs/I&O 10/30/22 12:25 Temp 35.7 Pulse 83 Resp 25 B/P (MAP) 120/79 (93) Pulse Ox 97 O2 Delivery Room Air Capillary Refill : Less Than 3 Seconds Blood Pressure Mean: 93 Progress Note : Time: 13:59 Progress Note Patient seen and examined, 42-year-old male with shortness of breath, restless legs right knee pain. Biggest complaint is insomnia over the last 2 days. Very anxious and apprehensive about his health. Evaluation today includes physical exam, EKG, shows a flutter rate controlled with ventricular bigeminy, no ST segment elevation or depression. Chest x-ray shows decreasing infiltrates. Laboratory studies show CBC with mild leukocytosis no anemia, chemistry shows elevated alk phos and total bilirubin otherwise normal electrolytes and renal function. Coags are out reflective of ongoing Xarelto administration, BNP is at his baseline approximately 1300. Clinically he is not in rapid ventricular response, blood pressure is normal oxygen saturations are normal. He is afebrile no findings concerning for sepsis, acute pulmonary edema, acute coronary syndrome. He will be given a dose of ropinirole here in the emergency department as well as some pain meds for his knee. I advised him I would not be giving him a prescription for hydrocodone. We will put on his discharge papers that he received narcotics so will be discharged and This will be seen. He has a follow-up appointment at [facility] next week. All questions are sought and answered. Patient is stable for discharge. ECG Initial ECG Impression Date: Oct 30, 2022 Initial ECG Impression Time: 12:41 Initial ECG Rate: 60 Initial ECG Rhythm: A Fib/Flutter Initial ECG Intervals QRS 108 QTC 406 Comment PVC noted; otherwise Aflutter (4:1); widespread ST depression without ST elevation Diagnostic Imaging Diagonstic Imaging: Xray Plain Films/CT/US/NM/MRI: chest Comments [facility]. [place], [place] NAME: PAL VALERIO [facility] REC#: [id number] PT STATUS: REG ER : 1980 PHYSICIAN: SHASTA RAMON MD ADMIT DATE: 10/30/22/ER Draft Date of Exam:10/30/22 CHEST 1 VIEW, AP/PA ONLY INDICATION: Dyspnea. COMPARISON: 10/27/2022. DISCUSSION: Single portable upright view of the chest was obtained. Improved aeration of the lungs with decreasing infiltrates. Old right rib fractures are again noted. Normal heart size. No pleural fluid or pneumothorax. IMPRESSION: 1. Decreasing pulmonary infiltrates. Dictated on workstation # [id number] Dict: 10/30/22 1315 Trans: 10/30/22 1320 [id number] Interpreted by: DONAVAN STONE MD Electronically signed by: Departure Impression Primary Impression: Anxiety about health Additional Impressions: Restless legs Right knee pain Qualified Codes: M25.561 - Pain in right knee Insomnia Qualified Codes: F51.04 - Psychophysiologic insomnia Disposition: HOME, SELF-CARE Condition: Improved Departure-Patient Inst. Decision time for Depature: 14:02 Referrals: [facility] (PCP/Family) Primary Care Physician Patient Instructions: Insomnia, Restless Legs Syndrome Add. Discharge Instructions: Continue your current daily prescribed medications as directed. You can try over the counter UNISOM for sleep. This will not interact with your prescribed medications. You can use ice packs, Icy hot/Biofreeze to the painful area of your right knee - follow packaging directions. I have sent a prescription to [facility] pharmacy for the restless leg medication as well as for your Xarelto, please take the xarelto daily. Come back to the Emergency Department for any new, concerning or emergent complaints. Scripts Rivaroxaban (Xarelto) 20 Mg Tablet 20 MG PO DAILY for 30 Days, #30 TAB Prov: SHASTA RAMON MD 10/30/22 Ropinirole HCl (Ropinirole HCl) 0.5 Mg Tablet 0.5 MG PO HS PRN for insomnia for 30 Days, #30 TAB Prov: SHASTA RAMON MD 10/30/22 Copy Copies To 1: ESTEPHANIA GUTIERREZ KATHRYN M MD Oct 30, 2022 12:41
[2022-10-30 12:57] LABS: BASOPHILS # (AUTO) 0.1 10^3/uL (0.0-0.1); BASOPHILS % (AUTO) 1 % (0-10); EOSINOPHILS # (AUTO) 0.1 10^3/uL (0.0-0.3); EOSINOPHILS % (AUTO) 1 % (0-10); HEMATOCRIT 43 % (40-54); HEMOGLOBIN 13.6 g/dL (13.3-17.7); LYMPHOCYTES # (AUTO) 1.1 10^3/uL (1.0-4.0); LYMPHOCYTES % (AUTO) 7 % (12-44); MEAN CORPUSCULAR HEMOGLOBIN 28 pg (25-34); MEAN CORPUSCULAR HGB CONC 32 g/dL (32-36); MEAN CORPUSCULAR VOLUME 88 fL (80-99); MEAN PLATELET VOLUME 11.1 fL (9.0-12.2); MONOCYTES # (AUTO) 1.2 10^3/uL (0.0-1.0); MONOCYTES % (AUTO) 8 % (0-12); NEUTROPHILS # (AUTO) 12.5 10^3/uL (1.8-7.8); NEUTROPHILS % (AUTO) 83 % (42-75); PLATELET COUNT 491 10^3/uL (130-400); WHITE BLOOD COUNT 15.1 10^3/uL (4.3-11.0)
[2022-10-30] MEDS ORDERED: hydrOXYzine (VISTARIL/ATARAX) 25 MG capsule/tablet PO ONE (13:00)
[2022-10-30 13:08] LABS: ALBUMIN 4.1 GM/DL (3.2-4.5); POTASSIUM 4.3 MMOL/L (3.6-5.0)
[2022-10-30 13:11] LABS: INR 1.3 (0.8-1.4); PROTHROMBIN TIME PATIENT 16.4 SEC (12.2-14.7); TOTAL PROTEIN 8.9 GM/DL (6.4-8.2)
[2022-10-30 13:13] LABS: BILIRUBIN,TOTAL 1.6 MG/DL (0.1-1.0)
[2022-10-30 13:14] LABS: CREATININE SERUM 1.16 MG/DL (0.60-1.30)
[2022-10-30 13:20] LABS: BAND NEUTROPHILS 1 %; BASOPHILS % (MANUAL) 0 %; EOSINOPHILS % (MANUAL) 2 %; LYMPHOCYTES % (MANUAL) 5 %; MONOCYTES % (MANUAL) 10 %; NEUTROPHILS % (MANUAL) 82 %
--- NOTE | 2022-10-30 13:20 | Diagnostic Imaging Report ---
INDICATION: Dyspnea. COMPARISON: 10/27/2022. DISCUSSION: Single portable upright view of the chest was obtained. Improved aeration of the lungs with decreasing infiltrates. Old right rib fractures are again noted. Normal heart size. No pleural fluid or pneumothorax. IMPRESSION: 1. Decreasing pulmonary infiltrates. Dictated by: Dictated on workstation # [id number]
[2022-10-30 13:21] LABS: ANISOCYTOSIS SLIGHT
[2022-10-30] MEDS ORDERED: rOPINIRole 1 MG (REQUIP) TABLET PO ONE (14:00)
[2022-10-30] MEDS ORDERED: HYDROcodone/APAP 7.5 MG/325 MG (LORTAB, LORCET PLUS) TABLET PO ONE (14:00)
[2022-10-30] MEDS ORDERED: RIVA20TA PO (14:06)
[2022-10-30] MEDS ORDERED: ROPI0.5T4 PO (14:06)
[2022-10-30 14:28] VITALS: BP 111/75
== END 2022-10-30 14:28 | disposition home or self-care (01) ==
LOC: EDUNIT# 12:19 → ER 12:22
DX: G47.00 Insomnia, unspecified (principal); G25.81 Restless legs syndrome; M25.561 Pain in right knee; E66.9 Obesity, unspecified; Z87.891 Personal history of nicotine dependence; Z68.33 Body mass index [BMI] 33.0-33.9, adult
CPT/HCPCS: 36415; 71045; 80053; 83880; 85007; 85027; 85610; 85730; 93005

== ENCOUNTER 2022-11-22 17:28 | Emergency (ER) | payer OTHER ==
[~2022-11-22] VITALS: Ht 180.3 cm; Wt 107.8 kg
[2022-11-22] MEDS ORDERED: ASPIRIN 81 MG CHEW (CHILDREN'S ASA) PO ONE (17:45)
[2022-11-22] MEDS ORDERED: RT-ALBUTEROL/IPRATROPIUM 3 ML (DUONEB) VIAL INH ONE (17:45)
--- NOTE | 2022-11-22 17:52 | ED Chest Pain ---
General Chief Complaint: Cough/Cold/Flu Symptoms Stated Complaint: SOA - WEAKNESS - COUGH Source: patient Exam Limitations: no limitations History of Present Illness Date Seen by Provider: Nov 22, 2022 Time Seen by Provider: 17:45 Initial Comments 42-year-old male to ER with complaint of chest pain shortness of breath and lightheadedness. Patient reports symptoms started at 9 AM this morning. States that "I feel like its A-fib again". denies radiation of pain to jaw back or left arm. Reports current cigarette smoker states last meth use was 1 month ago. Timing/Duration: 4-6 hours Severity/Quality: moderate Location: central Radiation: no radiation Associated Symptoms: dizziness, shortness of breath Allergies and Home Medications Allergies Coded Allergies: hydrocodone (Verified Allergy, Severe, ITCHING, 08/05/22) Penicillins (Verified Allergy, Unknown, 11/09/20) Patient Home Medication List Home Medication List Reviewed: Yes Amiodarone HCl (Amiodarone HCl) 400 Mg Tablet, 400 MG PO BID Prescribed by: ANN RHOADES on 10/27/22 0949 Diltiazem HCl (Diltiazem 24Hr ER) 240 Mg Cap.er.24h, 240 MG PO DAILY Prescribed by: ANN RHOADES on 10/27/22 0949 Empagliflozin (Jardiance) 10 Mg Tablet, 10 MG PO DAILY Prescribed by: ANN RHOADES on 10/27/22 0949 Furosemide (Furosemide) 40 Mg Tablet, 40 MG PO DAILY, (Reported) Entered as Reported by: EDER VARGAS on 07/05/22 0902 Gabapentin (Gabapentin) 600 Mg Tablet, 600 MG PO TID, (Reported) Entered as Reported by: BRAYAN AYERS on 07/03/22 1002 Lisinopril (Lisinopril) 2.5 Mg Tablet, 2.5 MG PO DAILY Prescribed by: ANN RHOADES on 10/27/22 0949 Metformin HCl (Metformin HCl ER) 500 Mg Tab.er.24, 500 MG PO BID, (Reported) Entered as Reported by: KLAUDIA OTTO on 10/12/22 1445 Metoprolol Succinate (Metoprolol Succinate) 50 Mg Tab.er.24h, 50 MG PO DAILY Prescribed by: ANN RHOADES on 10/27/22 0949 Mirtazapine (Mirtazapine) 15 Mg Tablet, 7.5 MG PO DAILY, (Reported) Entered as Reported by: BRAYAN AYERS on 07/03/221001 Olanzapine (Olanzapine) 5 Mg Tablet, 5 MG PO DAILY, (Reported) Entered as Reported by: BRAYAN AYERS on 07/03/221001 Pantoprazole Sodium (Pantoprazole Sodium) 40 Mg Tablet.dr, 40 MG PO DAILY, (Reported) Entered as Reported by: KLAUDIA OTTO on 10/12/22 1445 Polyethylene Glycol 3350 (Miralax) 17 Gram Powd.pack, 17 GM PO DAILY, (Reported) Entered as Reported by: KLAUDIA OTTO on 10/12/22 1445 Potassium Chloride (Klor-Con M20) 20 Meq Tab.er.prt, 20 MEQ PO DAILY@0700 Prescribed by: ANN RHOADES on 10/27/22 0949 Rivaroxaban (Xarelto) 20 Mg Tablet, 20 MG PO DAILY, (Reported) Entered as Reported by: KLAUDIA OTTO on 10/12/22 1445 Rivaroxaban (Xarelto) 20 Mg Tablet, 20 MG PO DAILY Prescribed by: SHASTA RAMON on 10/30/22 1406 Ropinirole HCl (Ropinirole HCl) 0.5 Mg Tablet, 0.5 MG PO HS, (Reported) Entered as Reported by: BRAYAN AYERS on 07/03/221001 Ropinirole HCl (Ropinirole HCl) 0.5 Mg Tablet, 0.5 MG PO HS PRN for insomnia Prescribed by: SHASTA RAMON on 10/30/22 1406 Sertraline HCl (Sertraline HCl) 50 Mg Tablet, 50 MG PO DAILY, (Reported) Entered as Reported by: BRAYAN AYERS on 07/03/221001 Spironolactone (Spironolactone) 25 Mg Tablet, 25 MG PO DAILY, (Reported) Entered as Reported by: BRAYAN AYERS on 07/03/221001 Review of Systems Review of Systems Constitutional: see HPI Past Gxorouo-Kbahzi-Avnvwi Hx Patient Social History Tobacco Use?: Yes Tobacco type used: Cigarettes Smoking Status: Current Everyday Smoker Use of E-Cig and/or Vaping dev: No Substance use?: Yes Alcohol Use?: No Pt feels they are or have been: No Immunizations Up To Date Tetanus Booster (TDap): Unknown First/Initial COVID19 Vaccinat: N/A Second COVID19 Vaccination Edinson: N/A Third COVID19 Vaccination Date: N/A Past Medical History Surgery/Hospitalization HX: A-FIB, HF, AFLUTTER Surgeries: Yes (HERNIA REPAIR) Abdominal, Appendectomy Respiratory: No Cardiac: Yes (CHF 30-35% EF) Atrial Fibrillation, Cardiomyopathy, High Cholesterol, Hypertension Neurological: No Genitourinary: No Gastrointestinal: Yes Gastroesophageal Reflux Musculoskeletal: No Endocrine: Yes (OBESITY, borderline diabetes) HEENT: No Cancer: No Psychosocial: Yes (SUBSTANCE ABUSE) Integumentary: Yes (TATTOOS) Blood Disorders: No Family Medical History No Pertinent Family Hx SOCIAL HISTORY: -ETOH--REGULAR USE -DRUGS--METHAMPHETAMINES -SMOKES 1 PPD PAST SURGICAL HISTORY: -APPENDECTOMY -HERNIA REPAIR -CARDIOVERSIONS ECHOCARDIOGRAM 11/13/20--EF 30-35%, NO REGIONAL WALL MOTION ABNORMALITIES. EXTREME NON-COMPLIANCE IN ALL ASPECTS OF CARE Physical Exam Vital Signs Vital Signs - First Documented 11/22/22 17:31 Pulse 75 Resp 24 B/P (MAP) 130/95 (107) Pulse Ox 93 O2 Delivery Room Air Capillary Refill : Height, Weight, BMI Height: '" Weight: lbs. oz. kg; 33.00 BMI Method: General Appearance: Anxious, Obese Neck: No JVD Respiratory: Expiration, Wheezing Cardiovascular: Regular Rate, Rhythm Neurologic/Psychiatric: Alert, Oriented x3 Skin: Normal Color, Warm/Dry Lymphatic: No Adenopathy Procedures/Interventions Date of ETT Placement: Oct 08, 2022 Time of ETT Placement: 1526 Progress/Results/Core Measures Results/Orders Lab Results Laboratory Tests Test 11/22/22 18:03 Range/Units White Blood Count 12.9 H 4.3-11.0 10^3/uL Red Blood Count 4.87 4.30-5.52 10^6/uL Hemoglobin 13.3 13.3-17.7 g/dL Hematocrit 42 40-54 % Mean Corpuscular Volume 87 80-99 fL Mean Corpuscular Hemoglobin 27 25-34 pg Mean Corpuscular Hemoglobin Concent 31 L 32-36 g/dL Red Cell Distribution Width 17.5 H 10.0-14.5 % Platelet Count 414 H 130-400 10^3/uL Mean Platelet Volume 10.4 9.0-12.2 fL Immature Granulocyte % (Auto) 1 % Neutrophils (%) (Auto) 78 H 42-75 % Lymphocytes (%) (Auto) 9 L 12-44 % Monocytes (%) (Auto) 10 0-12 % Eosinophils (%) (Auto) 2 0-10 % Basophils (%) (Auto) 0 0-10 % Neutrophils # (Auto) 10.0 H 1.8-7.8 10^3/uL Lymphocytes # (Auto) 1.2 1.0-4.0 10^3/uL Monocytes # (Auto) 1.2 H 0.0-1.0 10^3/uL Eosinophils # (Auto) 0.3 0.0-0.3 10^3/uL Basophils # (Auto) 0.1 0.0-0.1 10^3/uL Immature Granulocyte # (Auto) 0.1 0.0-0.1 10^3/uL Prothrombin Time 29.1 H 12.2-14.7 SEC INR Comment 2.7 H 0.8-1.4 Activated Partial Thromboplast Time 60 H 24-35 SEC Sodium Level 136 135-145 MMOL/L Potassium Level 4.0 3.6-5.0 MMOL/L Chloride Level 101 98-107 MMOL/L Carbon Dioxide Level 22 21-32 MMOL/L Anion Gap 13 5-14 MMOL/L Blood Urea Nitrogen 21 H 7-18 MG/DL Creatinine 1.36 H 0.60-1.30 MG/DL Estimat Glomerular Filtration Rate 66 BUN/Creatinine Ratio 15 Glucose Level 102 70-105 MG/DL Calcium Level 9.2 8.5-10.1 MG/DL Corrected Calcium 9.2 8.5-10.1 MG/DL Magnesium Level 2.2 1.6-2.4 MG/DL Total Bilirubin 1.2 H 0.1-1.0 MG/DL Aspartate Amino Transf (AST/SGOT) 25 5-34 U/L Alanine Aminotransferase (ALT/SGPT) 17 0-55 U/L Alkaline Phosphatase 243 H 40-136 U/L Myoglobin 141.3 H 10.0-92.0 NG/ML Troponin I < 0.028 <0.028 NG/ML B-Type Natriuretic Peptide 1322.3 H <100.0 PG/ML Total Protein 8.2 6.4-8.2 GM/DL Albumin 4.0 3.2-4.5 GM/DL My Orders Orders - SOFÍA ECHEVARRIA CERTIFIED VEHICLE FIRE INVESTIGATOR Cbc With Automated Diff (11/22/22 17:35) Magnesium (11/22/22 17:35) Chest 1 View, Ap/Pa Only (11/22/22 17:35) Ekg Tracing (11/22/22 17:35) Comprehensive Metabolic Panel (11/22/22 17:35) Myoglobin Serum (11/22/22 17:35) Protime With Inr (11/22/22 17:35) Partial Thromboplastin Time (11/22/22 17:35) O2 (11/22/22 17:35) Monitor-Rhythm Ecg Trace Only (11/22/22 17:35) Lipid Panel (11/23/22 06:00) Ed Iv/Invasive Line Start (11/22/22 17:35) Bnp Patricia (11/22/22 17:35) Troponin I [place] (11/22/22 17:35) Aspirin Chewable Tablet (Baby Aspirin Ch (11/22/22 17:45) Albuterol/Ipra Inhalation Soln (Duoneb I (11/22/22 17:45) Svn Small Volume Nebulizer (11/22/22 17:44) Antacid Suspension (Mylanta Suspension (11/22/22 18:15) Lidocaine 2% Viscous 15 Ml (Xylocaine Vi (11/22/22 18:15) Furosemide Injection (Lasix Injection) (11/22/22 19:15) Medications Given in ED Current Medications Medications Dose Ordered Sig/[place] Route Start Time Stop Time Status Last Admin Dose Admin Al Hydrox/Mg Hydrox/Simethicone 30 ml ONCE ONCE PO 11/22/22 18:15 11/22/22 18:16 DC 11/22/22 18:31 30 ML Albuterol/ Ipratropium 3 ml ONCE ONCE INH 11/22/22 17:45 11/22/22 17:46 DC 11/22/22 18:15 3 ML Aspirin 324 mg ONCE ONCE PO 11/22/22 17:45 11/22/22 17:46 DC 11/22/22 18:07 324 MG Lidocaine HCl 15 ml ONCE ONCE PO 11/22/22 18:15 11/22/22 18:16 DC 11/22/22 18:31 15 ML Vital Signs/I&O 11/22/22 11/22/22 17:31 18:15 Pulse 75 Resp 24 B/P (MAP) 130/95 (107) Pulse Ox 93 96 O2 Delivery Room Air Room Air Departure Communication (Admissions) CBC shows no anemia or leukocytosis. Elevated BNP and creatinine consistent with his baseline. Troponin is negative. Chest x-ray shows increased vascular congestion. EKG shows atrial fibrillation rate controlled at 80 bpm. No change from prior EKG on 10/22/2022. Patient is already anticoagulated with Xarelto and taking Lasix, amiodarone and diltiazem. Impression Primary Impression: Acute exacerbation of CHF (congestive heart failure) Disposition: HOME, SELF-CARE Condition: Stable Departure-Patient Inst. Decision time for Depature: 19:16 Referrals: [facility] [place] ([place]) Primary Care Physician Patient Instructions: Heart Failure ED Add. Discharge Instructions: Increase your Lasix to 80 mg that is 1 tablet twice a day or 2 tablets once a day for the next 2 days. Return to ER for any worsening. Follow-up with your doctor next week. All discharge instructions reviewed with patient and/or family. Voiced understanding. SOFÍA ECHEVARRIA APRN Nov 22, 2022 17:52
[2022-11-22 18:11] LABS: BASOPHILS # (AUTO) 0.1 10^3/uL (0.0-0.1); BASOPHILS % (AUTO) 0 % (0-10); EOSINOPHILS # (AUTO) 0.3 10^3/uL (0.0-0.3); EOSINOPHILS % (AUTO) 2 % (0-10); HEMATOCRIT 42 % (40-54); HEMOGLOBIN 13.3 g/dL (13.3-17.7); LYMPHOCYTES # (AUTO) 1.2 10^3/uL (1.0-4.0); LYMPHOCYTES % (AUTO) 9 % (12-44); MEAN CORPUSCULAR HEMOGLOBIN 27 pg (25-34); MEAN CORPUSCULAR HGB CONC 31 g/dL (32-36); MEAN CORPUSCULAR VOLUME 87 fL (80-99); MEAN PLATELET VOLUME 10.4 fL (9.0-12.2); MONOCYTES # (AUTO) 1.2 10^3/uL (0.0-1.0); MONOCYTES % (AUTO) 10 % (0-12); NEUTROPHILS % (AUTO) 78 % (42-75); PLATELET COUNT 414 10^3/uL (130-400); WHITE BLOOD COUNT 12.9 10^3/uL (4.3-11.0)
[2022-11-22] MEDS ORDERED: LIDOCAINE 2% VISCOUS 15 ML UDC PO ONE (18:15)
[2022-11-22] MEDS ORDERED: ANTACID SUSP 30 ML UDC (MYLANTA) PO ONE (18:15)
--- NOTE | 2022-11-22 18:24 | Diagnostic Imaging Report ---
INDICATION: Chest pain. TECHNIQUE: Single view chest 6:17 PM. CORRELATION STUDY: 10/30/2022 FINDINGS: Heart size enlarged. Vasculature overall appears increased from prior. Largely chronic changes about the lung parenchyma. However, appears to be more superimposed opacity of the right lung, particularly at the right lung base but also including the upper lung along with right pleural effusion. IMPRESSION: 1. Heart size remains enlarged however vasculature appears increased from prior suggesting fluid overload or edema. 2. Opacities of the right lung may reflect asymmetric edema versus infiltrate along with development of a small to moderate right pleural effusion. Dictated by: Dictated on workstation # [id number]
[2022-11-22 18:26] LABS: CALCIUM 9.2 MG/DL (8.5-10.1)
[2022-11-22 18:28] LABS: INR 2.7 (0.8-1.4); PROTHROMBIN TIME PATIENT 29.1 SEC (12.2-14.7); TOTAL PROTEIN 8.2 GM/DL (6.4-8.2)
[2022-11-22 18:29] LABS: BILIRUBIN,TOTAL 1.2 MG/DL (0.1-1.0)
[2022-11-22 18:31] LABS: CREATININE SERUM 1.36 MG/DL (0.60-1.30)
[2022-11-22 18:34] LABS: MAGNESIUM 2.2 MG/DL (1.6-2.4)
[2022-11-22] MEDS ORDERED: FUROSEMIDE 40 MG/4 ML INJ (LASIX) IVP ONE (19:15)
[2022-11-22] MEDS ORDERED: oxyCODONE/APAP 5/325MG (PERCOCET 5) TABLET PO ONE (19:30)
[2022-11-22 19:41] VITALS: BP 125/95
== END 2022-11-22 19:43 | disposition home or self-care (01) ==
LOC: EDUNIT# 17:28 → ER 17:29
DX: I11.0 Hypertensive heart disease with heart failure (principal); I50.9 Heart failure, unspecified; F17.210 Nicotine dependence, cigarettes, uncomplicated; E66.9 Obesity, unspecified; I48.91 Unspecified atrial fibrillation; Z79.01 Long term (current) use of anticoagulants; Z68.33 Body mass index [BMI] 33.0-33.9, adult
CPT/HCPCS: 36415; 71045; 80053; 83735; 83874; 83880; 84484; 85025; 85610; 85730; 93005; 93041; 94640

== ENCOUNTER → 2022-11-23 | Outpatient (CLI) | payer OTHER | LOC: CARD 08:19 | PROVIDERS: ATTEND Internal Medicine Cardiovascular Disease | DX: I48.0 Paroxysmal atrial fibrillation (principal) | CPT/HCPCS: 93225; 93226 ==

== ENCOUNTER 2023-01-01 20:20 | Emergency (ER) | payer OTHER ==
[~2023-01-01] VITALS: Ht 180 cm; Wt 104.0 kg
[2023-01-01 20:29] VITALS: BP 129/87
[2023-01-01] MEDS ORDERED: KETOROLAC 60 MG/2 ML VIAL IM ONE (21:00)
[2023-01-01] MEDS ORDERED: ORPHENADRINE 60 MG/2 ML (NORFLEX) AMP (ED ONLY) IM ONE (21:00)
--- NOTE | 2023-01-01 21:09 | ED Lower Extremity ---
General Chief Complaint: Lower Extremity Stated Complaint: LEFT FOOT PAIN Nursing Triage Note: PT REPORTS TO ED POV FOR LEFT FOOT PAIN. DENIES KNOWN INJURY PT STATES HE HAS SWELLING BELOW THE TOES X'S 3. PT AMB. WITH LIMP TO FT1. Source: patient Exam Limitations: no limitations History of Present Illness Date Seen by Provider: Jan 01, 2023 Time Seen by Provider: 20:35 Initial Comments 42-year-old male presents to the ED with complaints of pain to the bottom of his foot near his toes. States he has had the pain for about 4 weeks, has become worse over the last few days. Describes the pain as burning, numb, and tingling. Denies history of neuropathy. He reports he has also been having some right lower back pain, states pain sometimes radiates down leg into foot. States currently his lower back pain is mild. His pain is mostly just in the foot. He currently already takes gabapentin 600 mg 3 times a day for anxiety. He denies pain in calf, denies swelling in legs. Denies loss of bowel or bladder, denies saddle paresthesia, patient is able to walk. Patient denies fevers, chest pain, shortness of breath, abdominal pain. Allergies and Home Medications Allergies Coded Allergies: hydrocodone (Verified Allergy, Severe, ITCHING, 08/05/22) Penicillins (Verified Allergy, Unknown, 11/09/20) Patient Home Medication List Home Medication List Reviewed: Yes Amiodarone HCl (Amiodarone HCl) 400 Mg Tablet, 400 MG PO BID Prescribed by: ANN RHOADES on 10/27/22948 Cyclobenzaprine HCl (Cyclobenzaprine HCl) 10 Mg Tablet, 10 MG PO Q8H Prescribed by: Mona Berman on 01/01/23 213 Diltiazem HCl (Diltiazem 24Hr ER) 240 Mg Cap.er.24h, 240 MG PO DAILY Prescribed by: ANN RHOADES on 10/27/22948 Empagliflozin (Jardiance) 10 Mg Tablet, 10 MG PO DAILY Prescribed by: ANN RHOADES on 10/27/22948 Furosemide (Furosemide) 40 Mg Tablet, 40 MG PO DAILY, (Reported) Entered as Reported by: EDER VARGAS on 07/05/22 09 Gabapentin (Gabapentin) 600 Mg Tablet, 600 MG PO TID, (Reported) Entered as Reported by: BRAYAN AYERS on 07/03/221001 Lisinopril (Lisinopril) 2.5 Mg Tablet, 2.5 MG PO DAILY Prescribed by: ANN RHOADES on 10/27/22 09 Metformin HCl (Metformin HCl ER) 500 Mg Tab.er.24, 500 MG PO BID, (Reported) Entered as Reported by: KLAUDIA OTTO on 10/12/22 144 Methylprednisolone (Methylprednisolone Dose Pack) 4 Mg Tab.ds.pk, 4 MG PO UD Prescribed by: Mona Berman on 01/01/23 213 Metoprolol Succinate (Metoprolol Succinate) 50 Mg Tab.er.24h, 50 MG PO DAILY Prescribed by: ANN RHOADES on 10/27/22948 Mirtazapine (Mirtazapine) 15 Mg Tablet, 7.5 MG PO DAILY, (Reported) Entered as Reported by: BRAYAN AYERS on 07/03/221001 Olanzapine (Olanzapine) 5 Mg Tablet, 5 MG PO DAILY, (Reported) Entered as Reported by: BRAYAN AYERS on 07/03/221001 Pantoprazole Sodium (Pantoprazole Sodium) 40 Mg Tablet.dr, 40 MG PO DAILY, (R eported) Entered as Reported by: KLAUDIA OTTO on 10/12/22 144 Polyethylene Glycol 3350 (Miralax) 17 Gram Powd.pack, 17 GM PO DAILY, (Reported) Entered as Reported by: KLAUDIA OTTO on 10/12/22 144 Potassium Chloride (Klor-Con M20) 20 Meq Tab.er.prt, 20 MEQ PO DAILY@0700 Prescribed by: ANN RHOADES on 10/27/22 0949 Rivaroxaban (Xarelto) 20 Mg Tablet, 20 MG PO DAILY, (Reported) Entered as Reported by: KLAUDIA OTTO on 10/12/22 1445 Rivaroxaban (Xarelto) 20 Mg Tablet, 20 MG PO DAILY Prescribed by: SHASTA RAMON on 10/30/22 1406 Ropinirole HCl (Ropinirole HCl) 0.5 Mg Tablet, 0.5 MG PO HS, (Reported) Entered as Reported by: BRAYAN AYERS on 07/03/221001 Ropinirole HCl (Ropinirole HCl) 0.5 Mg Tablet, 0.5 MG PO HS PRN for insomnia Prescribed by: SHASTA RAMON on 10/30/22 1406 Sertraline HCl (Sertraline HCl) 50 Mg Tablet, 50 MG PO DAILY, (Reported) Entered as Reported by: BRAYAN AYERS on 07/03/22 1002 Spironolactone (Spironolactone) 25 Mg Tablet, 25 MG PO DAILY, (Reported) Entered as Reported by: BRAYAN AYERS on 07/03/22 1002 Review of Systems Constitutional: see HPI Past Spkalbs-Qqdzwi-Aqolvk Hx Patient Social History Tobacco Use?: Yes Tobacco type used: Cigarettes Smoking Status: Light Tobacco Smoker Use of E-Cig and/or Vaping dev: No Substance use?: No Alcohol Use?: No Pt feels they are or have been: No Immunizations Up To Date Tetanus Booster (TDap): Unknown First/Initial COVID19 Vaccinat: N/A Second COVID19 Vaccination [place]: N/A Third COVID19 Vaccination Date: N/A Past Medical History Surgery/Hospitalization HX: A-FIB, HF, AFLUTTER Surgeries: Yes (HERNIA REPAIR) Abdominal, Appendectomy Respiratory: No Cardiac: Yes (CHF 30-35% EF) Atrial Fibrillation, Cardiomyopathy, High Cholesterol, Hypertension Neurological: No Genitourinary: No Gastrointestinal: Yes Gastroesophageal Reflux Musculoskeletal: No Endocrine: Yes (OBESITY, borderline diabetes) HEENT: No Cancer: No Psychosocial: Yes (SUBSTANCE ABUSE) Integumentary: Yes (TATTOOS) Blood Disorders: No Family Medical History No Pertinent Family Hx SOCIAL HISTORY: -ETOH--REGULAR USE -DRUGS--METHAMPHETAMINES -SMOKES 1 PPD PAST SURGICAL HISTORY: -APPENDECTOMY -HERNIA REPAIR -CARDIOVERSIONS ECHOCARDIOGRAM 11/13/20--EF 30-35%, NO REGIONAL WALL MOTION ABNORMALITIES. EXTREME NON-COMPLIANCE IN ALL ASPECTS OF CARE Physical Exam Vital Signs Vital Signs - First Documented 01/01/23 20:29 Temp 37.1 Pulse 79 Resp 18 B/P (MAP) 129/87 (101) Pulse Ox 95 O2 Delivery Room Air Capillary Refill : Less Than 3 Seconds Height, Weight, BMI Height: '" Weight: lbs. oz. kg; 32.00 BMI Method: General Appearance: WD/WN, no apparent distress Neck: supple, normal inspection Cardiovascular: regular rate, rhythm, no edema, no gallop, no JVD, no murmur Respiratory: lungs clear, normal breath sounds, no respiratory distress, no accessory muscle use Back: no vertebral tenderness, other (Left lower muscular pain) Legs: bilateral leg non-tender, bilateral leg normal range of motion, bilateral leg no evidence of injury, bilateral leg other (Varicose veins, no swelling) Feet: bilateral foot non-tender, bilateral foot normal range of motion, bilateral foot no evidence of injury, bilateral foot other (Varicose veins, no swelling) Neurologic/Psychiatric: alert, normal mood/affect Skin: warm/dry Procedures/Interventions Date of ETT Placement: Oct 08, 2022 Time of ETT Placement: 1526 Progress/Results/Core Measures Results/Orders My Orders Orders - MOAN BERMAN APRN Ketorolac Injection (Toradol Injection) (01/01/23 21:00) Orphenadrine Inj (Ed Only) (Norflex Inje (01/01/23 21:00) Dexamethasone Injection (Decadron Injec (01/01/23 21:00) Medications Given in ED Vital Signs/I&O 01/01/23 20:29 Temp 37.1 Pulse 79 Resp 18 B/P (MAP) 129/87 (101) Pulse Ox 95 O2 Delivery Room Air Blood Pressure Mean: 101 Progress Progress Note : Progress Note Patient seen and evaluated, resting comfortably in recliner, no acute distress. Based on exam and symptoms, I am not concerned for DVT, pain is chronic, likely neuropathy, possibly lumbar radiculopathy due to left lower back pain and reports of occasional radiation down to her foot. We will treat with steroid injection, Toradol, Norflex. Will discharge with Solu-Medrol Dosepak and Flexeril. Patient requesting pain medication. Informed him to speak with his primary about possibly increasing his gabapentin dose. Informed that narcotics are not the best for neuropathy pain. Patient is also allergic to hydrocodone. Discharge instructions and return precautions provided. Departure Impression Primary Impression: Neuropathy Disposition: 01 HOME, SELF-CARE Condition: Stable Departure-Patient Inst. Decision time for Depature: 21:30 Referrals: [facility] (PCP/Family) Primary Care Physician Patient Instructions: Neuropathic Pain Add. Discharge Instructions: Take Medrol Dosepak as prescribed. Take Flexeril every 8 hours as needed for pain. It may make you sleepy. You may also take Tylenol 1000 mg every 8 hours as needed for pain. Follow-up with your primary care provider. Talk with your primary about changing your gabapentin dosage. Return for worsening numbness, numbness between your legs, loss of bowel or bladder, inability to walk, or any other new, concerning, or worsening symptoms. All discharge instructions reviewed with patient and/or family. Voiced understanding. Scripts Cyclobenzaprine HCl (Cyclobenzaprine HCl) 10 Mg Tablet 10 MG PO Q8H for 7 Days, #21 TAB 0 Refills Prov: MONA BERMAN APRN 01/01/23 Methylprednisolone (Methylprednisolone Dose Pack) 4 Mg Tab.ds.pk 4 MG PO UD for 6 Days, #21 PKG 0 Refills PER DOSE PACK INSTRUCTIONS Prov: MONA BERMAN APRN 01/01/23 MONA BERMAN APRN Jan 01, 2023 21:09
[2023-01-01] MEDS ORDERED: METH4TAB10 PO (21:35)
[2023-01-01] MEDS ORDERED: CYCL10TA25 PO (21:35)
== END 2023-01-01 21:55 | disposition home or self-care (01) ==
LOC: EDUNIT# 20:20 → ER 20:23
DX: G62.9 Polyneuropathy, unspecified (principal); E66.9 Obesity, unspecified; F41.9 Anxiety disorder, unspecified; F17.210 Nicotine dependence, cigarettes, uncomplicated; Z68.32 Body mass index [BMI] 32.0-32.9, adult; Z28.310 Unvaccinated for COVID-19
CPT/HCPCS: 99284

== ENCOUNTER 2023-01-16 05:25 | Inpatient (IN) | payer OTHER ==
[~2023-01-16] VITALS: Ht 102.5 cm; Wt 180.0 kg
[~2023-01-16 05:25] MED LIST changes: +CYCL10TA25 PO; +METH4TAB10 PO
[2023-01-16] MEDS ORDERED: methylPREDNISolone 125 MG (Solu-MEDROL) VIAL IV STA (06:08)
[2023-01-16] MEDS ORDERED: RT-ALBUTEROL/IPRATROPIUM 3 ML (DUONEB) VIAL INH ONE (06:15)
[2023-01-16] MEDS ORDERED: ONDANSETRON 4 MG/2 ML (SDV) Z0FRAN IVP ONE (06:15)
[2023-01-16 06:17] LABS: BASOPHILS # (AUTO) 0.1 10^3/uL (0.0-0.1); BASOPHILS % (AUTO) 1 % (0-10); EOSINOPHILS # (AUTO) 0.4 10^3/uL (0.0-0.3); EOSINOPHILS % (AUTO) 3 % (0-10); HEMATOCRIT 46 % (40-54); HEMOGLOBIN 13.8 g/dL (13.3-17.7); LYMPHOCYTES # (AUTO) 1.3 10^3/uL (1.0-4.0); LYMPHOCYTES % (AUTO) 10 % (12-44); MEAN CORPUSCULAR HEMOGLOBIN 26 pg (25-34); MEAN CORPUSCULAR HGB CONC 30 g/dL (32-36); MEAN CORPUSCULAR VOLUME 85 fL (80-99); MEAN PLATELET VOLUME 10.7 fL (9.0-12.2); MONOCYTES # (AUTO) 1.2 10^3/uL (0.0-1.0); MONOCYTES % (AUTO) 9 % (0-12); NEUTROPHILS # (AUTO) 10.6 10^3/uL (1.8-7.8); NEUTROPHILS % (AUTO) 78 % (42-75); PLATELET COUNT 329 10^3/uL (130-400); WHITE BLOOD COUNT 13.6 10^3/uL (4.3-11.0)
[2023-01-16 06:25] LABS: ALBUMIN 4.2 GM/DL (3.2-4.5); CHLORIDE 103 MMOL/L (98-107); POTASSIUM 4.7 MMOL/L (3.6-5.0); SODIUM 140 MMOL/L (135-145)
[2023-01-16 06:26] LABS: CALCIUM 9.6 MG/DL (8.5-10.1); INR 1.7 (0.8-1.4); PROTHROMBIN TIME PATIENT 20.7 SEC (12.2-14.7)
[2023-01-16 06:28] LABS: GLUCOSE 100 MG/DL (70-105); TOTAL PROTEIN 7.8 GM/DL (6.4-8.2)
[2023-01-16 06:29] LABS: BILIRUBIN,TOTAL 1.3 MG/DL (0.1-1.0); CARBON DIOXIDE 26 MMOL/L (21-32)
[2023-01-16 06:31] LABS: ALKALINE PHOSPHATASE 255 U/L (40-136); CREATININE SERUM 1.06 MG/DL (0.60-1.30); GFR ESTIMATED 89
[2023-01-16 06:31] LABS: BILIRUBIN,URINE 1+ (NEGATIVE); CLARITY,URINE CLEAR; COLOR,URINE ORANGE; GLUCOSE, URINE (UA) TRACE (NEGATIVE); KETONES,URINE NEGATIVE (NEGATIVE); LEUKOCYTE ESTERASE ,URINE NEGATIVE (NEGATIVE); NITRITE,URINE NEGATIVE (NEGATIVE); PROTEIN,URINE 2+ (NEGATIVE)
[2023-01-16 06:32] LABS: BUN/CREATININE RATIO 20
[2023-01-16 06:34] LABS: ALANINE AMINOTRANSFERASE 23 U/L (0-55); CREATINE KINASE 147 U/L (30-200); MAGNESIUM 2.1 MG/DL (1.6-2.4)
[2023-01-16 06:41] LABS: CREATINE KINASE MB 6.5 NG/ML (<6.6)
--- NOTE | 2023-01-16 06:45 | ED General ---
General Chief Complaint: Chest Wall Stated Complaint: CP,COUGH,RT EYE CONTACT IN BACK OF EYE,COUGH UP BL Nursing Triage Note: Patient states he has had a cough x 3 months and tonight he coughed hard enough that is contact in his right eye lodged into the back of his eye. He states he has red tinged sputum in addition to the cough and that no otc cough meds have helped. States chest pain only related to coughing. Source of Information: Patient History of Present Illness Date Seen by Provider: Jan 16, 2023 Time Seen by Provider: 05:55 Allergies and Home Medications Allergies Coded Allergies: hydrocodone (Verified Allergy, Severe, ITCHING, 08/05/22) Penicillins (Verified Allergy, Unknown, 11/09/20) Patient Home Medication List Amiodarone HCl (Amiodarone HCl) 400 Mg Tablet, 400 MG PO BID Prescribed by: ANN RHOADES on 10/27/22 09 Cyclobenzaprine HCl (Cyclobenzaprine HCl) 10 Mg Tablet, 10 MG PO Q8H Prescribed by: Mona Enrique on 01/01/232134 Diltiazem HCl (Diltiazem 24Hr ER) 240 Mg Cap.er.24h, 240 MG PO DAILY Prescribed by: ANN RHOADES on 10/27/22 09 Empagliflozin (Jardiance) 10 Mg Tablet, 10 MG PO DAILY Prescribed by: ANN RHOADES on 10/27/22 0949 Furosemide (Furosemide) 40 Mg Tablet, 40 MG PO DAILY, (Reported) Entered as Reported by: EDER VARGAS on 07/05/22 0902 Gabapentin (Gabapentin) 600 Mg Tablet, 600 MG PO TID, (Reported) Entered as Reported by: BRAYAN AYERS on 07/03/22 1002 Lisinopril (Lisinopril) 2.5 Mg Tablet, 2.5 MG PO DAILY Prescribed by: ANN RHOADES on 10/27/22 0949 Metformin HCl (Metformin HCl ER) 500 Mg Tab.er.24, 500 MG PO BID, (Reported) Entered as Reported by: KLAUDIA OTTO on 10/12/22 1445 Methylprednisolone (Methylprednisolone Dose Pack) 4 Mg Tab.ds.pk, 4 MG PO UD Prescribed by: Mona Enrique on 01/01/232134 Metoprolol Succinate (Metoprolol Succinate) 50 Mg Tab.er.24h, 50 MG PO DAILY Prescribed by: ANN RHOADES on 10/27/22 0949 Mirtazapine (Mirtazapine) 15 Mg Tablet, 7.5 MG PO DAILY, (Reported) Entered as Reported by: BRAYAN AYERS on 07/03/22 1002 Olanzapine (Olanzapine) 5 Mg Tablet, 5 MG PO DAILY, (Reported) Entered as Reported by: BRAYAN AYERS on 07/03/221001 Pantoprazole Sodium (Pantoprazole Sodium) 40 Mg Tablet.dr, 40 MG PO DAILY, (Reported) Entered as Reported by: KLAUDIA OTTO on 10/12/22 1445 Polyethylene Glycol 3350 (Miralax) 17 Gram Powd.pack, 17 GM PO DAILY, (Reported) Entered as Reported by: KLAUDIA OTTO on 10/12/22 1445 Potassium Chloride (Klor-Con M20) 20 Meq Tab.er.prt, 20 MEQ PO DAILY@0700 Prescribed by: ANN RHOADES on 10/27/22 0949 Rivaroxaban (Xarelto) 20 Mg Tablet, 20 MG PO DAILY, (Reported) Entered as Reported by: KLAUDIA OTTO on 10/12/22 1445 Rivaroxaban (Xarelto) 20 Mg Tablet, 20 MG PO DAILY Prescribed by: SHASTA RAMON on 10/30/22 1406 Ropinirole HCl (Ropinirole HCl) 0.5 Mg Tablet, 0.5 MG PO HS, (Reported) Entered as Reported by: BRAYAN AYERS on 07/03/221001 Ropinirole HCl (Ropinirole HCl) 0.5 Mg Tablet, 0.5 MG PO HS PRN for insomnia Prescribed by: SHASTA RAMON on 10/30/22 1406 Sertraline HCl (Sertraline HCl) 50 Mg Tablet, 50 MG PO DAILY, (Reported) Entered as Reported by: BRAYAN AYERS on 07/03/22 1002 Spironolactone (Spironolactone) 25 Mg Tablet, 25 MG PO DAILY, (Reported) Entered as Reported by: BRAYAN AYERS on 07/03/22 1002 Past Wxriplw-Dwpijy-Qbvcub Hx Patient Social History Tobacco Use?: Yes Tobacco type used: Cigarettes Substance use?: No Alcohol Use?: No Immunizations Up To Date Tetanus Booster (TDap): Unknown First/Initial COVID19 Vaccinat: N/A Second COVID19 Vaccination Edinson: N/A Third COVID19 Vaccination Date: N/A Past Medical History Surgery/Hospitalization HX: A-FIB, HF, AFLUTTER Surgeries: Yes (HERNIA REPAIR) Abdominal, Appendectomy Respiratory: No Cardiac: Yes (CHF 30-35% EF) Atrial Fibrillation, Cardiomyopathy, High Cholesterol, Hypertension Neurological: No Genitourinary: No Gastrointestinal: Yes Gastroesophageal Reflux Musculoskeletal: No Endocrine: Yes (OBESITY, borderline diabetes) HEENT: No Cancer: No Psychosocial: Yes (SUBSTANCE ABUSE) Integumentary: Yes (TATTOOS) Blood Disorders: No Family Medical History No Pertinent Family Hx SOCIAL HISTORY: -ETOH--REGULAR USE -DRUGS--METHAMPHETAMINES -SMOKES 1 PPD PAST SURGICAL HISTORY: -APPENDECTOMY -HERNIA REPAIR -CARDIOVERSIONS ECHOCARDIOGRAM 11/13/20--EF 30-35%, NO REGIONAL WALL MOTION ABNORMALITIES. EXTREME NON-COMPLIANCE IN ALL ASPECTS OF CARE Physical Exam Vital Signs Vital Signs - First Documented 01/16/23 05:44 Temp 35.8 Pulse 75 Resp 18 B/P (MAP) 121/83 (96) Pulse Ox 98 O2 Delivery Room Air Capillary Refill : Less Than 3 Seconds Height, Weight, BMI Height: '" Weight: lbs. oz. kg; 32.00 BMI Method: General Appearance: No Apparent Distress, WD/WN, Other (FREQUENT HARSH, FORCED DRY COUGH WHEN STAFF IN ROOM--NO HEMOPTYSIS. NO COUGH WHEN STAFF ARE NOT IN ROOM. ) HEENT: PERRL/EOMI, Other (EYES EXAMINED. NO FOREIGN BODY OR CONTACT IDENTIFIED. NO EVIDENCE OF INJURY TO EYE. ) Neck: Normal Inspection Respiratory: No Accessory Muscle Use, No Respiratory Distress, Decreased Breath Sounds (DECREASED BREATH SOUNDS IN BOTH BASES. EXPIRATORY WHEEZING BILATERALLY. ), Wheezing Cardiovascular: No JVD, Normal Peripheral Pulses, Irregularly Irregular Gastrointestinal: Non Tender, Soft, Other (ROTUND) Back: No CVA Tenderness Extremity: Normal Capillary Refill, No Calf Tenderness, No Pedal Edema Neurologic/Psychiatric: Alert, Oriented x3, No Motor/Sensory Deficits, city carrier assistant II- XII Norm as Tested Focused Exam Sepsis Stage: Ruled Out Reason for ruling out sepsis: DOES NOT MEET CRITERIA Possible Source: Pulmonary Time of Focused Exam: 07:25 Respiratory: Other (INCREASED AERATION, NON-LABORED RESPIRATIONS, STILL WITH EXPIRATORY WHEEZING BILATERALLY) Cardiovascular: Irregularly Irregular Capillary Refill: Less Than 3 Seconds Skin: normal color, warm/dry Within 3hrs of presentation: Admin ABX, Blood cultures prior to ABX's, Focus exam, Lactate level, Other (FLUIDS HELD PT IS IN CHF. ) Procedures/Interventions Date of ETT Placement: Oct 08, 2022 Time of ETT Placement: 1526 Progress/Results/Core Measures Suspected Sepsis SIRS Temperature: Pulse: 75 Respiratory Rate: 18 Laboratory Tests 01/16/23 06:09: White Blood Count 13.6H Blood Pressure 121 /83 Mean: 96 Laboratory Tests 01/16/23 06:09: Creatinine 1.06, INR Comment 1.7H, Platelet Count 329, Total Bilirubin 1.3H Results/Orders Lab Results Laboratory Tests Test 01/16/23 06:09 01/16/23 06:21 01/16/23 06:24 01/16/23 07:50 Range/Units White Blood Count 13.6 H 4.3-11.0 10^3/uL Red Blood Count 5.35 4.30-5.52 10^6/uL Hemoglobin 13.8 13.3-17.7 g/dL Hematocrit 46 40-54 % Mean Corpuscular Volume 85 80-99 fL Mean Corpuscular Hemoglobin 26 25-34 pg Mean Corpuscular Hemoglobin Concent 30 L 32-36 g/dL Red Cell Distribution Width 19.0 H 10.0-14.5 % Platelet Count 329 130-400 10^3/uL Mean Platelet Volume 10.7 9.0-12.2 fL Immature Granulocyte % (Auto) 1 % Neutrophils (%) (Auto) 78 H 42-75 % Lymphocytes (%) (Auto) 10 L 12-44 % Monocytes (%) (Auto) 9 0-12 % Eosinophils (%) (Auto) 3 0-10 % Basophils (%) (Auto) 1 0-10 % Neutrophils # (Auto) 10.6 H 1.8-7.8 10^3/uL Lymphocytes # (Auto) 1.3 1.0-4.0 10^3/uL Monocytes # (Auto) 1.2 H 0.0-1.0 10^3/uL Eosinophils # (Auto) 0.4 H 0.0-0.3 10^3/uL Basophils # (Auto) 0.1 0.0-0.1 10^3/uL Immature Granulocyte # (Auto) 0.1 0.0-0.1 10^3/uL Prothrombin Time 20.7 H 12.2-14.7 SEC INR Comment 1.7 H 0.8-1.4 Activated Partial Thromboplast Time 47 H 24-35 SEC Sodium Level 140 135-145 MMOL/L Potassium Level 4.7 3.6-5.0 MMOL/L Chloride Level 103 98-107 MMOL/L Carbon Dioxide Level 26 21-32 MMOL/L Anion Gap 11 5-14 MMOL/L Blood Urea Nitrogen 21 H 7-18 MG/DL Creatinine 1.06 0.60-1.30 MG/DL Estimat Glomerular Filtration Rate 89 BUN/Creatinine Ratio 20 Glucose Level 100 70-105 MG/DL Calcium Level 9.6 8.5-10.1 MG/DL Corrected Calcium 9.4 8.5-10.1 MG/DL Magnesium Level 2.1 1.6-2.4 MG/DL Total Bilirubin 1.3 H 0.1-1.0 MG/DL Aspartate Amino Transf (AST/SGOT) 26 5-34 U/L Alanine Aminotransferase (ALT/SGPT) 23 0-55 U/L Alkaline Phosphatase 255 H 40-136 U/L Total Creatine Kinase 147 30-200 U/L Creatine Kinase MB 6.5 <6.6 NG/ML Troponin I < 0.028 <0.028 NG/ML B-Type Natriuretic Peptide 971.8 H <100.0 PG/ML Total Protein 7.8 6.4-8.2 GM/DL Albumin 4.2 3.2-4.5 GM/DL Acetaminophen Level < 10 L 10-30 UG/ML Serum Alcohol < 10 <10 MG/DL Influenza Type A (RT-PCR) Not Detected Not Detecte Influenza Type B (RT-PCR) Not Detected Not Detecte SARS-CoV-2 RNA (RT-PCR) Not Detected Not Detecte Urine Color ORANGE Urine Clarity CLEAR Urine pH 6.0 5-9 Urine Specific [place] 1.025 H 1.016-1.022 Urine Protein 2+ H NEGATIVE Urine Glucose (UA) TRACE H NEGATIVE Urine Ketones NEGATIVE NEGATIVE Urine Nitrite NEGATIVE NEGATIVE Urine Bilirubin 1+ H NEGATIVE Urine Urobilinogen 4.0 < = 1.0 MG/DL Urine Leukocyte Esterase NEGATIVE NEGATIVE Urine RBC (Auto) NEGATIVE NEGATIVE Urine RBC NONE /HPF Urine WBC NONE /HPF Urine Crystals NONE /LPF Urine Bacteria TRACE /HPF Urine Casts NONE /LPF Urine Mucus NEGATIVE /LPF Urine Culture Indicated NO Urine Opiates Screen NEGATIVE NEGATIVE Urine Oxycodone Screen NEGATIVE NEGATIVE Urine Methadone Screen NEGATIVE NEGATIVE Urine Propoxyphene Screen NEGATIVE NEGATIVE Urine Barbiturates Screen NEGATIVE NEGATIVE Ur Tricyclic Antidepressants Screen NEGATIVE NEGATIVE Urine Phencyclidine Screen NEGATIVE NEGATIVE Urine Amphetamines Screen NEGATIVE NEGATIVE Urine Methamphetamines Screen NEGATIVE NEGATIVE Urine Benzodiazepines Screen NEGATIVE NEGATIVE Urine Cocaine Screen NEGATIVE NEGATIVE Urine Cannabinoids Screen NEGATIVE NEGATIVE Blood Gas Puncture Site LEFT WRIST Blood Gas Patient Temperature 35.8 Arterial Blood pH 7.37 7.37-7.43 Arterial Blood Partial Pressure CO2 41 35-45 MMHG Arterial Blood Partial Pressure O2 81 79-93 MMHG Arterial Blood HCO3 24 23-27 MMOL/L Arterial Blood Total CO2 24.8 21.0-31.0 MMOL/L Arterial Blood Oxygen Saturation 98 94-100 % Arterial Blood Base Excess -1.3 -2.5-2.5 MMOL/L Michele Test YES-POS Blood Gas Ventilator Setting NO Blood Gas Inspired Oxygen 2 My Orders Orders - JULIANO ALFONSO DO Ed Iv/Invasive Line Start (01/16/23 06:08) Ekg Tracing (01/16/23 06:08) O2 (01/16/23 06:08) Monitor-Rhythm Ecg Trace Only (01/16/23 06:08) Acetaminophen (01/16/23 06:08) Alcohol (01/16/23 06:08) Bnp Patricia (01/16/23 06:08) Cbc With Automated Diff (01/16/23 06:08) Comprehensive Metabolic Panel (01/16/23 06:08) Creatine Kinase (01/16/23 06:08) Creatine Kinase Mb (01/16/23 06:08) Drug Screen Stat (Urine) (01/16/23 06:08) Magnesium (01/16/23 06:08) Protime With Inr (01/16/23 06:08) Partial Thromboplastin Time (01/16/23 06:08) Ua Culture If Indicated (01/16/23 06:08) Troponin I Peach (01/16/23 06:08) Chest 1 View, Ap/Pa Only (01/16/23 06:08) Ondansetron Injection (Zofran Injectio (01/16/23 06:15) Albuterol/Ipra Inhalation Soln (Duoneb I (01/16/23 06:15) Dexamethasone Injection (Decadron Injec (01/16/23 06:15) Rt Request For Service (01/16/23 06:08) Methylprednisolone Sod Succ (Solu-Medrol (01/16/23 06:08) Covid 19 Inhouse Test (01/16/23 06:08) Svn Small Volume Nebulizer (01/16/23 06:08) Influenza A And B By Pcr (01/16/23 06:08) Isolation Central Supply Req (01/16/23 06:08) Ct Angio Chest W (R/O Pe) (01/16/23 06:22) Iohexol Injection (Omnipaque 350 Mg/Ml 1 (01/16/23 07:15) Sodium Chloride Flush (Catheter Flush Sy (01/16/23 07:15) Ns (Ivpb) (Sodium Chloride 0.9% Ivpb Bag (01/16/23 07:15) Furosemide Injection (Lasix Injection) (01/16/23 07:30) Aspirin Chewable Tablet (Baby Aspirin Ch (01/16/23 07:30) Ketorolac Injection (Toradol Injection) (01/16/23 07:30) Arterial Blood Gas (01/16/23 07:35) Cefepime Injection (Maxipime Injection) (01/16/23 07:45) Ed Admission (Communication) (01/16/23 07:45) Furosemide Injection (Lasix Injection) (01/16/23 08:00) Enoxaparin Injection (Lovenox Injection) (01/16/23 08:00) Nitroglycerin Ointment (Nitrobid Ointme (01/16/23 08:15) Mat Initiate Protocol (01/16/23 08:25) Medications Given in ED Current Medications Medications Dose Ordered Sig/[place] Route Start Time Stop Time Status Last Admin Dose Admin Albuterol/ Ipratropium 3 ml ONCE ONCE INH 01/16/23 06:15 01/16/23 06:16 DC 01/16/23 06:30 3 ML Aspirin 324 mg ONCE ONCE PO 01/16/23 07:30 01/16/23 07:31 DC 01/16/23 07:46 324 MG Cefepime HCl 1000 mg/Sodium Chloride 50 ml @ 100 mls/hr ONCE ONCE IV 01/16/23 07:45 01/16/23 08:14 DC 01/16/23 08:09 100 MLS/HR Dexamethasone Sodium Phosphate 20 mg ONCE ONCE IH 01/16/23 06:15 01/16/23 06:16 DC 01/16/23 06:31 20 MG Enoxaparin Sodium 100 mg ONCE ONCE SC 01/16/23 08:00 01/16/23 08:01 DC 01/16/23 08:10 100 MG Furosemide 40 mg ONCE ONCE IVP 01/16/23 07:30 01/16/23 07:31 DC 01/16/23 07:47 40 MG Furosemide 40 mg ONCE ONCE IVP 01/16/23 08:00 01/16/23 08:01 DC 01/16/23 08:10 40 MG Iohexol 100 ml ONCE ONCE IV 01/16/23 07:15 01/16/23 07:16 DC 01/16/23 07:12 90 ML Ketorolac Tromethamine 30 mg ONCE ONCE IVP 01/16/23 07:30 01/16/23 07:31 DC 01/16/23 07:47 30 MG Ondansetron HCl 4 mg ONCE ONCE IVP 01/16/23 06:15 01/16/23 06:16 DC 01/16/23 06:17 4 MG Sodium Chloride 10 ml NEEDED PRN IV 01/16/23 07:15 01/16/23 07:12 10 ML Sodium Chloride 100 ml ONCE ONCE IV 01/16/23 07:15 01/16/23 07:16 DC 01/16/23 07:12 80 ML Vital Signs/I&O 01/16/23 01/16/23 01/16/23 01/16/23 05:44 05:44 06:01 06:31 Temp 35.8 Pulse 75 Resp 18 B/P (MAP) 121/83 (96) Pulse Ox 98 96 95 O2 Delivery Room Air Room Air Room Air Room Air Capillary Refill : Less Than 3 Seconds Blood Pressure Mean: 96 Progress Note : Progress Note 02 SATS 88-91% ON ROOM AIR AFTER NEB TREATMENT PLACED ON O2 AT 2L/NC AND O2 SATS UP TO 94% PT REPEATEDLY WANTING PAIN MEDICATIONS THROUGHOUT ER STAY FOR CHEST PAIN DUE TO COUGHING--HE WAS GIVEN TORADOL. HE REFUSED NITROPASTE. ECG Initial ECG Impression Date: Jan 16, 2023 Initial ECG Impression Time: 06:01 Initial ECG Rate: 78 Initial ECG Rhythm: A Fib/Flutter (WITH INCOMPLETE RBBB) Initial ECG Intervals MO--N/A QRS 119 QT/QTC 420/479 Initial ECG Comparisson: Unchanged Diagnostic Imaging Comments CXR--PER RADIOLOGIST REPORT AT 0716 FINDINGS: The heart is enlarged but unchanged from prior. There are five lobed interstitial opacities, unchanged from prior. There is some mild venous congestion very similar to the prior. There is blunting of the right angle likely small right pleural effusion, unchanged. IMPRESSION: Likely chronic or recurrent failure pattern with mild cardiomegaly, venous congestion, mild edema and small right pleural effusions. Overall, the pattern is unchanged from the comparison of [address] CHEST ANGIOGRAM--PER RADIOLOGIST REPORT AT 0725 FINDINGS: There are no intraluminal pulmonary arterial filling defects. There were no findings of pulmonary arterial embolus. There are bilateral pleural effusions, greater right, nonloculated. The right layers to a depth of 9.3 cm. No lung mass. No thoracic lymphadenopathy. No pneumothorax. The heart size is felt to be within normal limits. Upper abdomen shows ascites with no free air. No acute bony pathology. IMPRESSION: Negative for PE, pleural effusions and ascites with normal heart size. No lung mass or adenopathy. No pneumothorax or acute chest wall pathology. Reviewed: Reviewed by Ma Departure Communication (Admissions) 0738--SPOKE WITH DR. COLE, HOSPITALIST FOR [facility]. ACCEPTS PT FOR ADMIT, SHE WILL DO ADMIT ORDERS 0755--SPOKE WITH DR. DUBON, EMBOSSING MACHINE OPERATOR, FOR CONSULT. 0803--SPOKE WITH DR. WATSON, SURGEON, REGARDING PLEURAL EFFUSIONS, AND POSSIBLE NEED FOR THORACENTESIS. Impression Primary Impression: Acute respiratory failure Additional Impressions: Acute bronchitis REPORTED HEMOPTYSIS Chronic atrial fibrillation Non-insulin dependent diabetes mellitus Bilateral pleural effusion History of intravenous drug abuse Polysubstance abuse Ascites Disposition: ADMITTED INPATIENT Condition: Stable Admissions Decision to Admit Reason: Admit from ER (General) Decision to Admit/Date: Jan 16, 2023 Time/Decision to Admit Time: 07:40 Departure-Patient Inst. Referrals: [facility] [place] Primary Care Physician JULIANO ALFONSO DO Jan 16, 2023 06:45
[2023-01-16 06:46] LABS: BACTERIA,URINE TRACE /HPF
[2023-01-16 06:47] LABS: AMPHETAMINE SCREEN, URINE NEGATIVE (NEGATIVE); BARBITURATE SCREEN URINE NEGATIVE (NEGATIVE); BENZODIAZEPINES SCREEN URINE NEGATIVE (NEGATIVE); CANNABINOID SCREEN, URINE NEGATIVE (NEGATIVE); COCAINE SCREEN URINE NEGATIVE (NEGATIVE); METHADONE STAT NEGATIVE (NEGATIVE); OPIATE SCREEN URINE NEGATIVE (NEGATIVE); OXYCODONE STAT NEGATIVE (NEGATIVE); PROPOXYPHENE STAT NEGATIVE (NEGATIVE); TRICYCLIC ANTIDEPRESSANTS SCRE NEGATIVE (NEGATIVE)
--- NOTE | 2023-01-16 06:54 | Diagnostic Imaging Report ---
INDICATION: Dyspnea. Comparison 11/22/2022 FINDINGS: The heart is enlarged but unchanged from prior. There are five lobed interstitial opacities, unchanged from prior. There is some mild venous congestion very similar to the prior. There is blunting of the right angle likely small right pleural effusion, unchanged. IMPRESSION: Likely chronic or recurrent failure pattern with mild cardiomegaly, venous congestion, mild edema and small right pleural effusions. Overall, the pattern is unchanged from the comparison of 2 months earlier. Dictated by: Dictated on workstation # [id number]
[2023-01-16] MEDS ORDERED: IOHEXOL 350 MG/ML 100 ML (OMNIPAQUE 350) VIAL IV ONE (07:15)
[2023-01-16] MEDS ORDERED: CATHETER FLUSH 10 ML SYR IV PRN (07:15)
[2023-01-16] MEDS ORDERED: NS 100 ML (IVPB) BAG IV ONE (07:15)
--- NOTE | 2023-01-16 07:22 | Diagnostic Imaging Report ---
INDICATION: Dyspnea, hemoptysis. FINDINGS: There are no intraluminal pulmonary arterial filling defects. There were no findings of pulmonary arterial embolus. There are bilateral pleural effusions, greater right, nonloculated. The right layers to a depth of 9.3 cm. No lung mass. No thoracic lymphadenopathy. No pneumothorax. The heart size is felt to be within normal limits. Upper abdomen shows ascites with no free air. No acute bony pathology. IMPRESSION: Negative for PE, pleural effusions and ascites with normal heart size. No lung mass or adenopathy. No pneumothorax or acute chest wall pathology. Dictated by: Dictated on workstation # [id number]
[2023-01-16] MEDS ORDERED: ASPIRIN 81 MG CHEW (CHILDREN'S ASA) PO ONE (07:30)
[2023-01-16] MEDS ORDERED: FUROSEMIDE 40 MG/4 ML INJ (LASIX) IVP ONE ×2 (07:30→08:00)
[2023-01-16] MEDS ORDERED: KETOROLAC 30 MG/ML VIAL IVP ONE (07:30)
[2023-01-16] MEDS ORDERED: CEFEPIME INJECTION 1,000 MG in NS (IVPB) 50 ML IV ONE (07:45)
--- NOTE | 2023-01-16 07:52 | History & Physical-Hospitalist ---
History of Present Illness HPI/Chief Complaint CC: Acute hypoxic respiratory failure HPI: This is a 42yoWM previous meth user with h/o severe cardiomyopathy who presented to the ER with dyspnea after failed PO abx for bronchitis and having hemoptysis. Holding OAC. IV abx and steroids started. Patient requiring O2 supplement and does not use O2 at home. Cardiology consulted. Source: patient Exam Limitations: no limitations Date Seen 01/16/23 Time Seen by a Provider: 10:00 Attending Physician [facility] PCP Admitting Physician: Attending Physician: Referring Physician Date of Admission Home Medications & Allergies Home Medications Reviewed patient Home Medication Reconciliation performed by pharmacy medication reconciliations educational technician and/or nursing. Patients Allergies have been reviewed. Allergies Allergies Coded Allergies hydrocodone (Verified Allergy, Severe, ITCHING, 08/05/22) Penicillins (Verified Allergy, Unknown, 11/09/20) Past Bwgvahk-Ueuohj-Jqeswg Hx Patient Social History Marrital Status: single Employed/Student: unemployed Tobacco Use?: Yes Tobacco type used: Cigarettes Smoking Status: Current Everyday Smoker Substance use?: No Alcohol Use?: No Immunizations Up To Date Date of Influenza Vaccine: Aug 09, 2020 First/Initial COVID19 Vaccinat: N/A Second COVID19 Vaccination Edinson: N/A Tetanus Booster (TDap): Unknown Hepatitis A: No Hepatitis B: No Current Status Advance Directives: No Communicates: Verbally Primary Language: [place] Preferred Spoken Language: [place] Is interpretation needed?: No Past Medical History Surgeries: Abdominal, Appendectomy Atrial Fibrillation, Cardiomyopathy, High Cholesterol, Hypertension Gastroesophageal Reflux Blood Disorders: No AF Meth use Family Medical History No Pertinent Family Hx SOCIAL HISTORY: -ETOH--REGULAR USE -DRUGS--METHAMPHETAMINES -SMOKES 1 PPD PAST SURGICAL HISTORY: -APPENDECTOMY -HERNIA REPAIR -CARDIOVERSIONS ECHOCARDIOGRAM 11/13/20--EF 30-35%, NO REGIONAL WALL MOTION ABNORMALITIES. EXTREME NON-COMPLIANCE IN ALL ASPECTS OF CARE Review of Systems Constitutional: see HPI Respiratory: cough, dyspnea on exertion Physical Exam Physical Exam Vital Signs Vital Signs - First Documented 01/16/23 01/16/23 01/16/23 05:44 09:27 15:27 Temp 35.8 Pulse 75 Resp 18 B/P (MAP) 121/83 (96) Pulse Ox 98 O2 Delivery Room Air O2 Flow Rate 2.00 FiO2 21 Capillary Refill : Less Than 3 Seconds Height, Weight, BMI Height: '" Weight: lbs. oz. kg; 32.00 BMI Method: General Appearance: No Apparent Distress Eyes: Right Eye Normal Inspection, Right Eye PERRL HEENT: PERRL/EOMI, TMs Normal, Normal ENT Inspection, Pharynx Normal, Moist Mucous Membranes Neck: Full Range of Motion, Normal Inspection, Non Tender Respiratory: Chest Non Tender, Lungs Clear, No Accessory Muscle Use, No Resp iratory Distress, Decreased Breath Sounds Cardiovascular: Regular Rate, Rhythm, No Edema, No Gallop, No JVD, No Murmur, Normal Peripheral Pulses Gastrointestinal: Normal Bowel Sounds, No Organomegaly, No Pulsatile Mass, Non Tender, Soft Back: Normal Inspection, No CVA Tenderness, No Vertebral Tenderness Extremity: Normal Capillary Refill, Normal Inspection, Normal Range of Motion, Non Tender, No Calf Tenderness, No Pedal Edema Neurologic/Psychiatric: Alert, Oriented x3, No Motor/Sensory Deficits, Normal Mood/Affect Skin: Normal Color, Warm/Dry Lymphatic: No Adenopathy Results Results/Procedures Labs Laboratory Tests 01/16/23 06:09 Patient resulted labs reviewed. Assessment/Plan Admission Diagnosis Assessment: Acute hypoxic respiratory failure Acute bronchitis failed PO abx AECOPD Previous meth user AF Cardiomyopathy Plan: IV steroids and IV abx Monitor closely O2 CSD Admission Status: Inpatient Order (span 2 midnights) Reason for Inpatient Admission: resp failure BK COLE DO Jan 16, 2023 07:52
[2023-01-16 07:59] LABS: ABG BASE EXCESS -1.3 MMOL/L (-2.5-2.5); ABG OXYGEN SATURATION 98 % (94-100); ABG PCO2 41 MMHG (35-45); ABG PH 7.37 (7.37-7.43); ABG PO2 81 MMHG (79-93); ABG TCO2 24.8 MMOL/L (21.0-31.0)
[2023-01-16 08:00] LABS: ALLENS TEST YES-POS; INSPIRED O2 2; PATIENT TEMP 35.8; VENTILATOR NO
[2023-01-16] MEDS ORDERED: ENOXAPARIN 100 MG/1 ML (LOVENOX) SYR SC ONE (08:00)
[2023-01-16] MEDS ORDERED: NITROGLYCERIN 2% OINT 1 GM UNIT DOSE PACKET TOP ONE (08:15)
[2023-01-16 09:00] VITALS: BP 19/93
[2023-01-16] MEDS ORDERED: ACETAMINOPHEN 325 MG TABLET PO PRN (09:15)
[2023-01-16] MEDS ORDERED: ONDANSETRON 4 MG/2 ML (SDV) Z0FRAN IV PRN (09:15)
[2023-01-16] MEDS ORDERED: diphenhydrAMINE 50 MG/ML INJ (BENADRYL) IVP PRN (09:15)
[2023-01-16] MEDS ORDERED: ANTACID SUSP 30 ML UDC (MYLANTA) PO PRN (09:15)
[2023-01-16] MEDS ORDERED: LACTULOSE SYRUP 10GM/15ML (ENULOSE) 30ML UDC PO PRN (09:15)
[2023-01-16] MEDS ORDERED: polyethylene glycoL POWDER 17 GM (MIRALAX) PACK PO PRN (09:15)
[2023-01-16] MEDS ORDERED: ONDANSETRON 4 MG (ZOFRAN) ORAL DISSOLVE TAB PO PRN (09:15)
[2023-01-16] MEDS ORDERED: MILK OF MAGNESIA 400 MG/5 ML 30 ML UDC PO PRN (09:15)
[2023-01-16] MEDS ORDERED: BISACODYL 10 MG SUPP (DULCOLAX) PR PRN (09:15)
[2023-01-16] MEDS ORDERED: CALCIUM CARBONATE 500 MG (TUMS) TAB.CHEW PO PRN (09:15)
[2023-01-16 09:27] VITALS: BP 120/94
[2023-01-16] MEDS: diphenhydrAMINE 25 MG TAB (BENADRYL) PO PRN ×2 (09:30→20:05)
--- NOTE | 2023-01-16 09:39 | Tele-ICU Consult ---
History of Present Illness History of Present Illness Date Seen by Provider: Jan 16, 2023 Time Seen by Provider: 09:37 Date of Admission Service provided via interactive audio and video tele[employer] E-CARE system to a patient admitted to ICU bed in [facility]. Patient is seen today due to persistent need of ICU care Available chart/ vitals / labs / Images reviewed Video assessment done using teleICU camera, rest of exam as per RN Discussed with RN 42 M with Hx of drug abuse, Hx of CPM, CHF, decreased LVEF, has chronic a fib ablation attempt 2 y ago, pt refusing another attempt, Last LVEF 50-55% in 11/01 cc of blood tinged sputum, CP on coughing no increase in WOB Allergies and Home Medications Allergies Coded Allergies: hydrocodone (Verified Allergy, Severe, ITCHING, 08/05/22) Penicillins (Verified Allergy, Unknown, 11/09/20) Home Medications Amiodarone HCl 400 Mg Tablet, 400 MG PO BID Prescribed by: ANN RHOADES on 10/27/22948 Cyclobenzaprine HCl 10 Mg Tablet, 10 MG PO Q8H Prescribed by: Moan Enrique on 01/01/232134 Diltiazem HCl 240 Mg Cap.er.24h, 240 MG PO DAILY Prescribed by: ANN RHOADES on 10/27/22948 Empagliflozin 10 Mg Tablet, 10 MG PO DAILY Prescribed by: ANN RHOADES on 10/27/22948 Furosemide 40 Mg Tablet, 40 MG PO DAILY, (Reported) Gabapentin 600 Mg Tablet, 600 MG PO TID, (Reported) Lisinopril 2.5 Mg Tablet, 2.5 MG PO DAILY Prescribed by: ANN RHOADES on 10/27/22948 Metformin HCl 500 Mg Tab.er.24, 500 MG PO BID, (Reported) Methylprednisolone 4 Mg Tab.ds.pk, 4 MG PO UD PER DOSE PACK INSTRUCTIONS Prescribed by: Mona Enrique on 01/01/232134 Metoprolol Succinate 50 Mg Tab.er.24h, 50 MG PO DAILY Prescribed by: ANN RHOADES on 10/27/22948 Mirtazapine 15 Mg Tablet, 7.5 MG PO DAILY, (Reported) TAKES OF A (15MG) TABLET Olanzapine 5 Mg Tablet, 5 MG PO DAILY, (Reported) Pantoprazole Sodium 40 Mg Tablet.dr, 40 MG PO DAILY, (Reported) Polyethylene Glycol 3350 17 Gram Powd.pack, 17 GM PO DAILY, (Reported) Potassium Chloride 20 Meq Tab.er.prt, 20 MEQ PO DAILY@0700 Prescribed by: ANN RHOADES on 10/27/22 0949 Rivaroxaban 20 Mg Tablet, 20 MG PO DAILY, (Reported) Rivaroxaban 20 Mg Tablet, 20 MG PO DAILY Prescribed by: SHASTA RAMON on 10/30/22 1406 Ropinirole HCl 0.5 Mg Tablet, 0.5 MG PO HS, (Reported) Ropinirole HCl 0.5 Mg Tablet, 0.5 MG PO HS PRN for insomnia Prescribed by: SHASTA RAMON on 10/30/22 1406 Sertraline HCl 50 Mg Tablet, 50 MG PO DAILY, (Reported) Spironolactone 25 Mg Tablet, 25 MG PO DAILY, (Reported) Past Medical/Social/Family Hx Patient Social History Tobacco Use?: Yes Tobacco type used: Cigarettes Substance use?: No Alcohol Use?: No Immunizations Up To Date First/Initial COVID19 Vaccinat: N/A Second COVID19 Vaccination [place]: N/A Tetanus Booster (TDap): Unknown Hepatitis A: No Hepatitis B: No TB Skin Test: None Current Status Advance Directives: No Communicates: Verbally Primary Language: [place] Citizen Preferred Spoken Language: [place] Citizen Is interpretation needed?: No Past Medical History AF Meth use Family Medical History Family Hx: SOCIAL HISTORY: -ETOH--REGULAR USE -DRUGS--METHAMPHETAMINES -SMOKES 1 PPD PAST SURGICAL HISTORY: -APPENDECTOMY -HERNIA REPAIR -CARDIOVERSIONS ECHOCARDIOGRAM 11/13/20--EF 30-35%, NO REGIONAL WALL MOTION ABNORMALITIES. EXTREME NON-COMPLIANCE IN ALL ASPECTS OF CARE Review of Systems Constitutional: see HPI EENTM: see HPI Respiratory: see HPI Cardiovascular: see HPI Gastrointestinal: see HPI Genitourinary: see HPI Musculoskeletal: see HPI Skin: see HPI Psychiatric/Neurological: See HPI Focused Exam Height, Weight, BMI Height: '" Weight: lbs. oz. kg; 32.00 BMI Method: Time of Focused Exam: 07:25 Exam Exam Patient acknowledged, consented, and participated in this virtual visit which was conducted using real time audio/video Vital Signs Date Time Temp Pulse Resp B/P (MAP) Pulse Ox O2 Delivery O2 Flow Rate FiO2 4/9/23 09:27 35.8 110 95 21 01/16/23 09:00 36.2 01/16/23 08:50 110 16 120/94 95 01/16/23 06:31 95 Room Air 01/16/23 06:01 96 Room Air 01/16/23 05:44 35.8 75 18 121/83 (96) 98 Room Air 01/16/23 05:44 Room Air Height & Weight Height: '" Weight: lbs. oz. kg; 32.00 BMI Method: General Appearance: No Apparent Distress, WD/WN, Other (FREQUENT HARSH, FORCED DRY COUGH WHEN STAFF IN ROOM--NO HEMOPTYSIS. NO COUGH WHEN STAFF ARE NOT IN ROOM. ) HEENT: PERRL/EOMI, Other (EYES EXAMINED. NO FOREIGN BODY OR CONTACT IDENTIFIED. NO EVIDENCE OF INJURY TO EYE. 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
[2023-01-16] MEDS ORDERED: RT-ALBUTEROL/IPRATROPIUM 3 ML (DUONEB) VIAL INH PRN (09:45)
--- NOTE | 2023-01-16 09:54 | Consultation-Cardiology ---
HPI-Cardiology Cardiology Consultation Date of Consultation 01/16/23 Date of Admission Time Seen by Provider: 09:49 Indication: Congestive heart failure HPI 42-year-old gentleman with history of congestive heart failure, has been having increasing shortness of breath and cough for the past 3 months which has been worsening. Denied any palpitation, has been having chest pain on and off. No syncope or near syncopal episodes. Noted to be in atrial fibrillation. On my evaluation he was laying down comfortably in bed, mild dyspnea. No fever or chills. Home Medications & Allergies Allergies: Coded Allergies: hydrocodone (Verified Allergy, Severe, ITCHING, 08/05/22) Penicillins (Verified Allergy, Unknown, 11/09/20) Home Medication List Reviewed: Yes HNS-Bevicy-Uayfco Hx Patient Social History Marital Status: Employed/Student: unemployed Drug of Choice: METHAMPHETAMINE, MARIJUANA Type Used: Cigarettes 2nd Hand Smoke Exposure: Yes Recent Hopitalizations: No Have you traveled recently?: No Alcohol Use?: No Immunizations Up To Date Tetanus Booster (TDap): Unknown Date of Influenza Vaccine: Aug 09, 2020 Past Medical History Discussed below Family Medical History Significant Family History: No Pertinent Family Hx Review of Systems-General Review of Systems Constitutional: no symptoms reported, see HPI, weakness EENTM: see HPI, no symptoms reported Respiratory: see HPI, cough, dyspnea on exertion, short of breath Cardiovascular: see HPI, chest pain; No edema, No Hx of Intervention, No palpitations, No syncope, No vascular heart diseas, No other Gastrointestinal: no symptoms reported, see HPI Genitourinary: no symptoms reported, see HPI Musculoskeletal: no symptoms reported, see HPI Skin: no symptoms reported, see HPI Psychiatric/Neurological: No Symptoms Reported, See HPI Reviewed Test Results Reviewed Test Results Lab Laboratory Tests Test 01/16/23 06:09 01/16/23 06:21 01/16/23 06:24 01/16/23 07:50 Range/Units White Blood Count 13.6 H 4.3-11.0 10^3/uL Red Blood Count 5.35 4.30-5.52 10^6/uL Hemoglobin 13.8 13.3-17.7 g/dL Hematocrit 46 40-54 % Mean Corpuscular Volume 85 80-99 fL Mean Corpuscular Hemoglobin 26 25-34 pg Mean Corpuscular Hemoglobin Concent 30 L 32-36 g/dL Red Cell Distribution Width 19.0 H 10.0-14.5 % Platelet Count 329 130-400 10^3/uL Mean Platelet Volume 10.7 9.0-12.2 fL Immature Granulocyte % (Auto) 1 % Neutrophils (%) (Auto) 78 H 42-75 % Lymphocytes (%) (Auto) 10 L 12-44 % Monocytes (%) (Auto) 9 0-12 % Eosinophils (%) (Auto) 3 0-10 % Basophils (%) (Auto) 1 0-10 % Neutrophils # (Auto) 10.6 H 1.8-7.8 10^3/uL Lymphocytes # (Auto) 1.3 1.0-4.0 10^3/uL Monocytes # (Auto) 1.2 H 0.0-1.0 10^3/uL Eosinophils # (Auto) 0.4 H 0.0-0.3 10^3/uL Basophils # (Auto) 0.1 0.0-0.1 10^3/uL Immature Granulocyte # (Auto) 0.1 0.0-0.1 10^3/uL Prothrombin Time 20.7 H 12.2-14.7 SEC INR Comment 1.7 H 0.8-1.4 Activated Partial Thromboplast Time 47 H 24-35 SEC Sodium Level 140 135-145 MMOL/L Potassium Level 4.7 3.6-5.0 MMOL/L Chloride Level 103 98-107 MMOL/L Carbon Dioxide Level 26 21-32 MMOL/L Anion Gap 11 5-14 MMOL/L Blood Urea Nitrogen 21 H 7-18 MG/DL Creatinine 1.06 0.60-1.30 MG/DL Estimat Glomerular Filtration Rate 89 BUN/Creatinine Ratio 20 Glucose Level 100 70-105 MG/DL Calcium Level 9.6 8.5-10.1 MG/DL Corrected Calcium 9.4 8.5-10.1 MG/DL Magnesium Level 2.1 1.6-2.4 MG/DL Total Bilirubin 1.3 H 0.1-1.0 MG/DL Aspartate Amino Transf (AST/SGOT) 26 5-34 U/L Alanine Aminotransferase (ALT/SGPT) 23 0-55 U/L Alkaline Phosphatase 255 H 40-136 U/L Total Creatine Kinase 147 30-200 U/L Creatine Kinase MB 6.5 <6.6 NG/ML Troponin I < 0.028 <0.028 NG/ML B-Type Natriuretic Peptide 971.8 H <100.0 PG/ML Total Protein 7.8 6.4-8.2 GM/DL Albumin 4.2 3.2-4.5 GM/DL Acetaminophen Level < 10 L 10-30 UG/ML Serum Alcohol < 10 <10 MG/DL Influenza Type A (RT-PCR) Not Detected Not Detecte Influenza Type B (RT-PCR) Not Detected Not Detecte SARS-CoV-2 RNA (RT-PCR) Not Detected Not Detecte Urine Color ORANGE Urine Clarity CLEAR Urine pH 6.0 5-9 Urine Specific [place] 1.025 H 1.016-1.022 Urine Protein 2+ H NEGATIVE Urine Glucose (UA) TRACE H NEGATIVE Urine Ketones NEGATIVE NEGATIVE Urine Nitrite NEGATIVE NEGATIVE Urine Bilirubin 1+ H NEGATIVE Urine Urobilinogen 4.0 < = 1.0 MG/DL Urine Leukocyte Esterase NEGATIVE NEGATIVE Urine RBC (Auto) NEGATIVE NEGATIVE Urine RBC NONE /HPF Urine WBC NONE /HPF Urine Crystals NONE /LPF Urine Bacteria TRACE /HPF Urine Casts NONE /LPF Urine Mucus NEGATIVE /LPF Urine Culture Indicated NO Urine Opiates Screen NEGATIVE NEGATIVE Urine Oxycodone Screen NEGATIVE NEGATIVE Urine Methadone Screen NEGATIVE NEGATIVE Urine Propoxyphene Screen NEGATIVE NEGATIVE Urine Barbiturates Screen NEGATIVE NEGATIVE Ur Tricyclic Antidepressants Screen NEGATIVE NEGATIVE Urine Phencyclidine Screen NEGATIVE NEGATIVE Urine Amphetamines Screen NEGATIVE NEGATIVE Urine Methamphetamines Screen NEGATIVE NEGATIVE Urine Benzodiazepines Screen NEGATIVE NEGATIVE Urine Cocaine Screen NEGATIVE NEGATIVE Urine Cannabinoids Screen NEGATIVE NEGATIVE Blood Gas Puncture Site LEFT WRIST Blood Gas Patient Temperature 35.8 Arterial Blood pH 7.37 7.37-7.43 Arterial Blood Partial Pressure CO2 41 35-45 MMHG Arterial Blood Partial Pressure O2 81 79-93 MMHG Arterial Blood HCO3 24 23-27 MMOL/L Arterial Blood Total CO2 24.8 21.0-31.0 MMOL/L Arterial Blood Oxygen Saturation 98 94-100 % Arterial Blood Base Excess -1.3 -2.5-2.5 MMOL/L Michele Test YES-POS Blood Gas Ventilator Setting NO Blood Gas Inspired Oxygen 2 Physical Exam Physical Exam Vital Signs Vital Signs - First Documented 01/16/23 01/16/23 05:44 09:27 Temp 35.8 Pulse 75 Resp 18 B/P (MAP) 121/83 (96) Pulse Ox 98 O2 Delivery Room Air FiO2 21 Capillary Refill : Less Than 3 Seconds Height, Weight, BMI Height: '" Weight: lbs. oz. kg; 32.00 BMI Method: General Appearance: No Apparent Distress, WD/WN, Other (FREQUENT HARSH, FORCED DRY COUGH WHEN STAFF IN ROOM--NO HEMOPTYSIS. NO COUGH WHEN STAFF ARE NOT IN ROOM. ) Eyes: Bilateral Eye Normal Inspection, Bilateral Eye PERRL, Bilateral Eye EOMI HEENT: PERRL/EOMI, Other (EYES EXAMINED. NO FOREIGN BODY OR CONTACT IDENTIFIED. NO EVIDENCE OF INJURY TO EYE. 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 Started on aggressive diuresis and will monitor Shortness of breath, cough, bilateral pleural effusion worse on the right Might benefit from thoracentesis. Continue with aggressive diuresis I have started the patient on Lovenox 1 mg/kg, need to be held for thoracentesis if the plan to proceed with that Shortness of breath, mild dyspnea. Permanent atrial fibrillation/flutter History of ablation done in [place] in 2020, has been refusing any further ablation Patient has been maintained on oral anticoagulation Coronary artery disease, mild disease nonobstructive disease by cardiac catheterization done in [place] in 2019 Nonischemic cardiomyopathy History of methamphetamine use, reported that he has not been using it recently EtOH abuse Chronic renal insufficiency Tobaccoism History of noncompliance with medication Clinical Quality Measures DVT/VTE Risk/Contraindication: Contraindications-Pharm: Other *list below* Other: hemoptysis DEMIAN DUBON MD Jan 16, 2023 09:54
[2023-01-16] MEDS ORDERED: ENOXAPARIN 100 MG/1 ML (LOVENOX) SYR SQ SCH (10:00)
[2023-01-16] MEDS: inSUlin ASPART (NovoLOG) 1 UNIT/0.01 ML (CHARGE PER UNIT) SC SCH ×3 (10:59→21:07)
[2023-01-16] MEDS: RT-ALBUTEROL/IPRATROPIUM 3 ML (DUONEB) VIAL INH SCH ×4 (11:14→23:39)
[2023-01-16 12:00] VITALS: BP 131/93
[2023-01-16] MEDS: methylPREDNISolone 40 MG/ML (Solu-MEDROL) VIAL IV SCH ×3 (12:10→23:49)
[2023-01-16 15:56] VITALS: BP 131/93
[2023-01-16] MEDS: CEFEPIME INJECTION 1,000 MG in NS (IVPB) 50 ML IV SCH ×2 (16:10→22:17)
[2023-01-16] MEDS: FUROSEMIDE 40 MG/4 ML INJ (LASIX) IVP SCH (16:10)
[2023-01-16] MEDS: MELATONIN 3 MG TABLET PO PRN (19:58)
[2023-01-16 20:00] VITALS: BP 126/95
[2023-01-16] MEDS: SENNOSIDES 8.6 MG (SENOKOT) TAB PO SCH (20:01)
[2023-01-16] MEDS: ENOXAPARIN 100 MG/1 ML (LOVENOX) SYR SQ SCH (20:01)
[2023-01-16] MEDS: DOCUSATE SODIUM 100 MG (COLACE) CAP PO SCH (20:01)
[2023-01-16] MEDS ORDERED: CEFEPIME INJECTION 1,000 MG in NS (IVPB) 50 ML IV SCH (21:00)
[2023-01-17] VITALS: BP 123/92
[2023-01-17] MEDS: RT-ALBUTEROL/IPRATROPIUM 3 ML (DUONEB) VIAL INH SCH ×5 (03:15→19:50)
[2023-01-17] MEDS: RT-BUDESONIDE NEBS 0.5 MG/2ML (PULMICORT) AMP INH SCH ×3 (03:16→21:52)
[2023-01-17 03:56] LABS: BASOPHILS % (AUTO) 0 % (0-10); EOSINOPHILS % (AUTO) 0 % (0-10); HEMATOCRIT 45 % (40-54); HEMOGLOBIN 13.8 g/dL (13.3-17.7); LYMPHOCYTES # (AUTO) 0.5 10^3/uL (1.0-4.0); LYMPHOCYTES % (AUTO) 2 % (12-44); MEAN CORPUSCULAR HEMOGLOBIN 26 pg (25-34); MEAN CORPUSCULAR HGB CONC 31 g/dL (32-36); MEAN CORPUSCULAR VOLUME 84 fL (80-99); MEAN PLATELET VOLUME 10.8 fL (9.0-12.2); MONOCYTES # (AUTO) 0.6 10^3/uL (0.0-1.0); MONOCYTES % (AUTO) 3 % (0-12); NEUTROPHILS # (AUTO) 22.1 10^3/uL (1.8-7.8); NEUTROPHILS % (AUTO) 94 % (42-75); PLATELET COUNT 305 10^3/uL (130-400); WHITE BLOOD COUNT 23.5 10^3/uL (4.3-11.0)
[2023-01-17 04:12] LABS: ALBUMIN 4.1 GM/DL (3.2-4.5)
[2023-01-17 04:14] LABS: CALCIUM 9.7 MG/DL (8.5-10.1)
[2023-01-17 04:17] LABS: BILIRUBIN,TOTAL 1.4 MG/DL (0.1-1.0)
[2023-01-17 04:19] LABS: CREATININE SERUM 1.25 MG/DL (0.60-1.30)
[2023-01-17 04:51] LABS: BAND NEUTROPHILS 3 %; LYMPHOCYTES % (MANUAL) 1 %; MONOCYTES % (MANUAL) 2 %; NEUTROPHILS % (MANUAL) 94 %
[2023-01-17 04:52] LABS: MICROCYTOSIS MODERATE
[2023-01-17] MEDS: inSUlin ASPART (NovoLOG) 1 UNIT/0.01 ML (CHARGE PER UNIT) SC SCH ×4 (05:17→20:48)
[2023-01-17] MEDS: diphenhydrAMINE 25 MG TAB (BENADRYL) PO PRN ×3 (05:17→20:47)
[2023-01-17] MEDS: methylPREDNISolone 40 MG/ML (Solu-MEDROL) VIAL IV SCH ×3 (05:17→17:40)
[2023-01-17] MEDS: CEFEPIME INJECTION 1,000 MG in NS (IVPB) 50 ML IV SCH ×4 (05:17→22:05)
[2023-01-17] MEDS: FUROSEMIDE 40 MG/4 ML INJ (LASIX) IVP SCH ×2 (06:45→16:57)
--- NOTE | 2023-01-17 07:32 | Consultation - Surgery ---
GINGER BONILLA 01/17/23 0732: History of Present Illness History of Present Illness Patient Consulted On(kartik/time) 01/17/23 07:25 Date Seen by Provider: Jan 17, 2023 Time Seen by Provider: 06:50 Reason for Visit: Congestive heart failure History of Present Illness We were asked to consult on this 42yo male with a history of HFpEF due to b/l pleural effusions. Before coming to the hospital the patient had been experiencing worsening SOB for the last three months that was worse when lying flat and with exertion. The SOB woke him up from sleep several times. He knows he has a history of heart failure, he says this has never happened to him before. He has had a persistent non-productive cough throughout the three months which was treated with Abx for suspected bronchitis, he reported they did not help at all. He has not had any chest pain during these episodes of SOB. Allergies and Home Medications Allergies Coded Allergies: hydrocodone (Verified Allergy, Severe, ITCHING, 08/05/22) Penicillins (Verified Allergy, Unknown, 11/09/20) Patient Home Medication List Cyclobenzaprine HCl (Cyclobenzaprine HCl) 10 Mg Tablet, 10 MG PO HS, (Reported) Entered as Reported by: JACQUELINE TOBIAS on 01/17/23 135 Last Action: Reviewed Diltiazem HCl (Diltiazem 24Hr ER) 180 Mg Cap.er.24h, 180 MG PO HS, (Reported) Entered as Reported by: JACQUELINE TOBIAS on 01/17/23 1358 Last Action: Reviewed Furosemide (Furosemide) 40 Mg Tablet, 40 MG PO DAILY, (Reported) Entered as Reported by: EDER VARGAS on 07/05/22 0902 Last Action: Reviewed Gabapentin (Gabapentin) 600 Mg Tablet, 600 MG PO BID, (Reported) Entered as Reported by: BRAYAN AYERS on 07/03/22 1002 Last Action: Reviewed Potassium Chloride (Klor-Con M20) 20 Meq Tab.er.prt, 20 MEQ PO HS, (Reported) Entered as Reported by: JACQUELINE TOBIAS on 01/17/23 135 Last Action: Reviewed Spironolactone (Spironolactone) 25 Mg Tablet, 25 MG PO DAILY, (Reported) Entered as Reported by: BRAYAN AYERS on 07/03/22 1002 Last Action: Reviewed Trazodone HCl (Trazodone HCl) 50 Mg Tablet, 50 MG PO HS, (Reported) Entered as Reported by: JACQUELINE TOBIAS on 01/17/23 1358 Last Action: Reviewed Discontinued Medications Diltiazem HCl (Diltiazem 24Hr ER) 240 Mg Cap.er.24h, 240 MG PO DAILY Discontinued Reason: No Longer Taking Prescribed by: ANN RHOADES on 10/27/22 0991 Last Action: Discontinued Prednisone (Prednisone) 10 Mg Tab, 10 MG PO DAILY, (Reported) Discontinued Reason: No Longer Taking Entered as Reported by: MARIELOS ROCHA on 01/17/23 1129 Last Action: Discontinued Past Qqlzvyk-Pywuur-Reundm Hx Patient Social History Drug of Choice: METHAMPHETAMINE, MARIJUANA Smoking Status: Current Everyday Smoker Type Used: Cigarettes 2nd Hand Smoke Exposure: Yes Recent Hopitalizations: No Alcohol Use?: No Have you traveled recently?: No Immunizations Up To Date Tetanus Booster (TDap): Unknown Date of Influenza Vaccine: Aug 09, 2020 Surgeries History of Surgeries: Yes (HERNIA REPAIR) Surgeries: Abdominal, Appendectomy Respiratory History of Respiratory Disorde: No Cardiovascular History of Cardiac Disorders: Yes (CHF 30-35% EF) Cardiac Disorders: Atrial Fibrillation, Cardiomyopathy, High Cholesterol, Hypertension Neurological History of Neurological Disord: No Genitourinary History of Genitourinary Disor: No Gastrointestinal History of Gastrointestinal Di: Yes Gastrointestinal Disorders: Gastroesophageal Reflux Musculoskeletal History of Musculoskeletal Dis: No Endocrine History of Endocrine Disorders: Yes (OBESITY, borderline diabetes) HEENT History of HEENT Disorders: No Cancer History of Cancer: No Psychosocial History of Psychiatric Problem: Yes (SUBSTANCE ABUSE) Integumentary History of Skin or Integumenta: Yes (TATTOOS) Blood Transfusions History of Blood Disorders: No Family Medical History Significant Family History: Heart Disease (mother, father, brother has HOCM, patient says he has been tested but does not have it), Diabetes (mom) Review of Systems-General Constitutional: No chills, No diaphoresis EENTM: throat pain (from coughing); No blurred vision, No double vision Respiratory: dyspnea on exertion; No hemoptysis; orthopnea, short of breath, wheezing Cardiovascular: No chest pain, No palpitations; vascular heart diseas Gastrointestinal: abdominal pain (crampy, most in RUQ); No constipation, No diarrhea; heartburn (chronic); No nausea; vomiting (only once after a bad episode of coughing) Genitourinary: No hematuria, No pain; other (self reported that he is peeing less than usual. He said he is only going a couple times a day and not as much volume as normal) Musculoskeletal: No back pain, No joint pain, No muscle stiffness, No muscle cramps Skin: No pruritus, No rash; other (tattoos) Psychiatric/Neurological: Denies Anxiety, Denies Depressed; Other (hx of substance use) Physical Exam-General Problems Physical Exam Vital Signs Vital Signs - First Documented 01/16/23 01/16/23 01/16/23 05:44 09:27 15:27 Temp 35.8 Pulse 75 Resp 18 B/P (MAP) 121/83 (96) Pulse Ox 98 O2 Delivery Room Air O2 Flow Rate 2.00 FiO2 21 Capillary Refill : Less Than 3 Seconds General Appearance: WD/WN, no apparent distress HEENT: PERRL/EOMI, pharynx normal Neck: non-tender, supple Respiratory: no respiratory distress, no accessory muscle use, decreased breath sounds (at the bases b/l, worse on right side), wheezing (right) Cardiovascular: tachycardia, irregularly irregular Gastrointestinal: normal bowel sounds, non tender, soft, distended, other (rectus diastasis) Back: no CVA tenderness, no vertebral tenderness Extremities: no calf tenderness, normal capillary refill, pedal edema Neurologic/Psychiatric: alert, oriented x 3 Skin: normal color, warm/dry Lymphatic: no adenopathy Data Review Labs Laboratory Tests 01/16/23 07:50: Blood Gas Puncture Site LEFT WRIST, Blood Gas Patient Temperature 35.8, Arterial Blood pH 7.37, Arterial Blood Partial Pressure CO2 41, Arterial Blood Partial P ressure O2 81, Arterial Blood HCO3 24, Arterial Blood Total CO2 24.8, Arterial Blood Oxygen Saturation 98, Arterial Blood Base Excess -1.3, Michele Test YES-POS, Blood Gas Ventilator Setting NO, Blood Gas Inspired Oxygen 2 01/16/23 10:28: Glucometer 152H 01/16/23 16:26: Glucometer 259H 01/16/23 20:23: Glucometer 308H 01/17/23 03:43: White Blood Count 23.5H, Red Blood Count 5.32, Hemoglobin 13.8, Hematocrit 45, Mean Corpuscular Volume 84, Mean Corpuscular Hemoglobin 26, Mean Corpuscular Hemoglobin Concent 31L, Red Cell Distribution Width 19.1H, Platelet Count 305, Mean Platelet Volume 10.8, Immature Granulocyte % (Auto) 1, Neutrophils (%) (Auto) 94H, Lymphocytes (%) (Auto) 2L, Monocytes (%) (Auto) 3, Eosinophils (%) (Auto) 0, Basophils (%) (Auto) 0, Neutrophils # (Auto) 22.1H, Lymphocytes # (Auto) 0.5L, Monocytes # (Auto) 0.6, Eosinophils # (Auto) 0.0, Basophils # (Auto) 0.0, Immature Granulocyte # (Auto) 0.2H, Neutrophils % (Manual) 94, Lymphocytes % (Manual) 1, Monocytes % (Manual) 2, Band Neutrophils 3, Microcytosis MODERATE, Macrocytosis SLIGHT, Sodium Level 134L, Potassium Level 5.0, Chloride Level 101, Carbon Dioxide Level 21, Anion Gap 12, Blood Urea Nitrogen 27H, Creatinine 1.25, Estimat Glomerular Filtration Rate 73, BUN/Creatinine Ratio 22, Glucose Level 250H, Calcium Level 9.7, Corrected Calcium 9.6, Total Bilirubin 1.4H, Aspartate Amino Transf (AST/SGOT) 22, Alanine Aminotransferase (ALT/SGPT) 23, Alkaline Phosphatase 237H, Total Protein 8.0, Albumin 4.1 Assessment/Plan Assessment/Plan Assessment/Plan Pleural Effusion Ascites Chonic heart failure AFib SOB Leukocytosis CT showed large pleural effusion measuring 9.3cm. Plan to do thoracentesis on this admission, hold lovenox prior Monitor WBC with AM labs Pt. has upper abdominal ascites, will monitor for improvement following thoracentesis and continued lasix use CHF and AFib being managed by cardiology Clinical Quality Measures DVT/VTE Risk/Contraindication: Contraindications-Pharm: Other *list below* Other: hemoptysis LOYD WATSON DO 01/17/23 687: History of Present Illness History of Present Illness History of Present Illness 42 old male with shortness of breath for about 3 months he states. It has progressively worsened to where he came to ED. Patient states that its worse with lying down flat and with exertion. Patient will wake up due to it as well. Patient has had non productive cough. Was coughing so bad that he did cause himselft to vomit. Has slight epigastric/ruq pain that is crampy and minimal discomfort. He had ct scan chest demonstrating b/l pleural effusions with right side larger. Patient is on anticoagulation, for afib. Patient requiring supplemental o2 at this time. Denies fever sweats chills or chest pain at this time. Allergies and Home Medications Allergies Coded Allergies: hydrocodone (Verified Allergy, Severe, ITCHING, 08/05/22) Penicillins (Verified Allergy, Unknown, 11/09/20) Patient Home Medication List Home Medication List Reviewed: Yes Cyclobenzaprine HCl (Cyclobenzaprine HCl) 10 Mg Tablet, 10 MG PO HS, (Reported) Entered as Reported by: JACQUELINE TOBIAS on 01/17/231357 Last Action: Reviewed Diltiazem HCl (Diltiazem 24Hr ER) 180 Mg Cap.er.24h, 180 MG PO HS, (Reported) Entered as Reported by: JACQUELINE TOBIAS on 01/17/231357 Last Action: Reviewed Furosemide (Furosemide) 40 Mg Tablet, 40 MG PO DAILY, (Reported) Entered as Reported by: EDER VARGAS on 07/05/22 0902 Last Action: Reviewed Gabapentin (Gabapentin) 600 Mg Tablet, 600 MG PO BID, (Reported) Entered as Reported by: BRAYAN AYERS on 07/03/22 1002 Last Action: Reviewed Potassium Chloride (Klor-Con M20) 20 Meq Tab.er.prt, 20 MEQ PO HS, (Reported) Entered as Reported by: JACQUELINE TOBIAS on 01/17/231357 Last Action: Reviewed Spironolactone (Spironolactone) 25 Mg Tablet, 25 MG PO DAILY, (Reported) Entered as Reported by: BRAYAN AYERS on 07/03/22 1002 Last Action: Reviewed Trazodone HCl (Trazodone HCl) 50 Mg Tablet, 50 MG PO HS, (Reported) Entered as Reported by: JACQUELINE TOBIAS on 01/17/231357 Last Action: Reviewed Discontinued Medications Diltiazem HCl (Diltiazem 24Hr ER) 240 Mg Cap.er.24h, 240 MG PO DAILY Discontinued Reason: No Longer Taking Prescribed by: ANN RHOADES on 10/27/22 0949 Last Action: Discontinued Prednisone (Prednisone) 10 Mg Tab, 10 MG PO DAILY, (Reported) Discontinued Reason: No Longer Taking Entered as Reported by: MARIELOS ROCHA on 01/17/23 1129 Last Action: Discontinued Past Onkksxu-Jeddgk-Qarjbs Hx Reviewed Nursing Assessment Reviewed/Agree w Nursing PMH: Yes Family Medical History Significant Family History: Heart Disease (mother, father, brother has HOCM, patient says he has been tested but does not have it), Diabetes (mom) Review of Systems-General Constitutional: No chills, No diaphoresis EENTM: No blurred vision, No double vision Respiratory: dyspnea on exertion, short of breath Cardiovascular: No chest pain, No palpitations Gastrointestinal: abdominal pain (crampy, most in RUQ); No constipation, No diarrhea, No nausea; vomiting (only once after a bad episode of coughing) All Other Systems Reviewed Negative Unless Noted: Yes (Negative excepted noted.) Physical Exam-General Problems Physical Exam General Appearance: WD/WN, no apparent distress HEENT: PERRL/EOMI, pharynx normal Neck: non-tender, supple Respiratory: no respiratory distress, no accessory muscle use, decreased breath sounds (at the bases b/l, worse on right side) Cardiovascular: tachycardia, irregularly irregular Gastrointestinal: non tender, soft; No distended; other (diastasis recti) Back: no CVA tenderness, no vertebral tenderness Neurologic/Psychiatric: alert, oriented x 3 Skin: normal color, warm/dry Lymphatic: no adenopathy Assessment/Plan Assessment/Plan Assessment/Plan B/l Pleural Effusion larger on right Hypoxia Ascites Chonic heart failure AFib SOB Leukocytosis Hx substance abuse. CT showed large pleural effusion measuring 9.3cm. Plan to do thoracentesis on this admission, hold lovenox prior Monitor WBC with AM labs Will get u/s chest to make sure accessible for procedure. Consent Pt. has upper abdominal ascites, will monitor for improvement following thoracentesis and continued lasix use CHF and AFib being managed by cardiology Supervisory-Addendum Brief Verification & Attestation Participated in pt care: history, MDM, physical Personally performed: exam, history, MDM, supervision of care Care discussed with: Medical Student Procedures: n/a Results interpretation: Verified all documentation Verification and Attestation of Medical Student E/M Service A medical student performed and documented this service in my presence. I reviewed and verified all information documented by the medical student and made modifications to such information, when appropriate. I personally performed the physical exam and medical decision making. Loyd Watson, Jan 17, 2023,18:32 GINGER BONILLA Jan 17, 2023 07:32 LOYD WATSON DO Jan 17, 2023 18:27
[2023-01-17] MEDS: SENNOSIDES 8.6 MG (SENOKOT) TAB PO SCH ×2 (08:49→20:46)
[2023-01-17] MEDS: DOCUSATE SODIUM 100 MG (COLACE) CAP PO SCH ×2 (08:49→20:47)
[2023-01-17] MEDS: ENOXAPARIN 100 MG/1 ML (LOVENOX) SYR SQ SCH ×3 (08:49→18:50)
--- NOTE | 2023-01-17 09:01 | Cardiology Progress Note ---
Subjective Date Seen by Provider: Jan 17, 2023 Time Seen by Provider: 08:58 Subjective/Events-last exam Patient is in bed, reports some improvement of his dyspnea. C/o chest pain with cough and deep inspiration. Focused Exam Time of Focused Exam: 07:25 Objective-Cardiology Exam Last Set of Vital Signs Vital Signs 01/16/23 01/17/23 01/17/23 01/17/23 01/17/23 09:27 00:00 07:06 07:11 07:26 Temp 36.1 Pulse 80 B/P (MAP) 123/92 (102) Pulse Ox 94 O2 Delivery Nasal Cannula O2 Flow Rate 2.00 FiO2 21 I&O Intake and Output 01/17/23 00:00 Intake Total 2180 ml Output Total 1450 ml Balance 730 ml Intake Oral 2080 ml IV Total 100 ml Output Urine Total 1450 ml Daily Weight Change No General: Alert, Oriented X3 HEENT: Atraumatic, PERRLA Lungs: Other (diminished breath sounds bibasilarly) Heart: Other (irreg irregular) Abdomen: Soft Extremities: No Clubbing, Other (+1 edema BLE) Results Lab Laboratory Tests 01/17/23 03:43 A/P-Cardiology Admission Diagnosis Shortness of breath Congestive heart failure, acute on chronic left ventricular systolic dysfunction, nonischemic cardiomyopathy Pleural effusion Coronary artery disease Assessment/Plan Congestive heart failure, acute on chronic left ventricular systolic dysfunction, nonischemic cardiomyopathy Last echo done in October 26, 2022 with ejection fraction 50 to 55% with biatrial enlargement. Started on aggressive diuresis and will monitor Shortness of breath, cough, bilateral pleural effusion worse on the right Planning for thoracentesis Continue with aggressive diuresis I have started the patient on Lovenox 1 mg/kg, need to be held for thoracentesis if the plan to proceed with that Shortness of breath, mild dyspnea. Permanent atrial fibrillation/flutter History of ablation done in [place] in 2020, has been refusing any further ablation Patient has been maintained on oral anticoagulation Coronary artery disease, mild disease nonobstructive disease by cardiac catheterization done in [place] in 2019 Nonischemic cardiomyopathy History of methamphetamine use, reported that he has not been using it recently EtOH abuse Chronic renal insufficiency Tobaccoism History of noncompliance with medication Patient was seen and evaluated with Gladys, examination performed, management plan was discussed, agree with the current scribed note, I made few changes to the note using Italic font Patient was seen at bedside, laying down comfortably Reporting improvement, responding well to diuretics Complaining of generalized body ache, overall his dyspnea and cough are better Patient may require thoracentesis. He has received Lovenox today. Which will be held for his thoracentesis Monitor heart rate and blood pressure GLADYS GILLETTE Jan 17, 2023 09:01 DEMIAN DUBON MD Jan 17, 2023 11:05
--- NOTE | 2023-01-17 09:57 | Diagnostic Imaging Report ---
INDICATION: Shortness of breath Ultrasound of the chest shows bilateral pleural effusions. This is moderate-sized on the right and small on the left. IMPRESSION: Bilateral pleural effusions larger on the right than on the left. Dictated by: Dictated on workstation # [id number]
[2023-01-17] MEDS ORDERED: PRD10T PO (11:29)
--- NOTE | 2023-01-17 13:28 | Progress Note ---
Subjective Subjective/Events-last exam Patient sitting to the side of the bed. States that he is feeling better. Still having some shortness of breath with deep breathing and mild chest pain when he takes a deep breath. Tolerating PO diet. Review of Systems General: Fatigue Pulmonary: Dyspnea; No Cough Cardiovascular: Chest Pain (with deep breathing) Gastrointestinal: No: Nausea, Abdominal Pain Neurological: Weakness; No: Confusion Focused Exam Time of Focused Exam: 07:25 Objective Exam Last Set of Vital Signs Vital Signs Date Time Temp Pulse Resp B/P (MAP) Pulse Ox O2 Delivery O2 Flow Rate FiO2 01/17/23 13:04 82 01/17/23 12:20 37.2 01/17/23 11:12 95 Nasal Cannula 2.00 01/17/23 00:00 123/92 (102) 01/16/23 20:00 22 01/16/23 09:27 21 Capillary Refill : Less Than 3 Seconds I&O Intake and Output 01/17/23 00:00 Intake Total 2180 ml Output Total 1450 ml Balance 730 ml Intake Oral 2080 ml IV Total 100 ml Output Urine Total 1450 ml Daily Weight Change No General: Alert, Oriented X3, No Acute Distress Lungs: Clear to Auscultation, Normal Air Movement Heart: Regular Rate, No Murmurs Abdomen: Normal Bowel Sounds, Soft, No Tenderness, No Masses Extremities: No Edema, No Tenderness/Swelling Neuro: Normal Speech Results/Procedures Lab Laboratory Tests 01/16/23 16:26: Glucometer 259H 01/16/23 20:23: Glucometer 308H 01/17/23 03:43: White Blood Count 23.5H, Red Blood Count 5.32, Hemoglobin 13.8, Hematocrit 45, Mean Corpuscular Volume 84, Mean Corpuscular Hemoglobin 26, Mean Corpuscular Hemoglobin Concent 31L, Red Cell Distribution Width 19.1H, Platelet Count 305, Mean Platelet Volume 10.8, Immature Granulocyte % (Auto) 1, Neutrophils (%) (Auto) 94H, Lymphocytes (%) (Auto) 2L, Monocytes (%) (Auto) 3, Eosinophils (%) (Auto) 0, Basophils (%) (Auto) 0, Neutrophils # (Auto) 22.1H, Lymphocytes # (Auto) 0.5L, Monocytes # (Auto) 0.6, Eosinophils # (Auto) 0.0, Basophils # (Auto) 0.0, Immature Granulocyte # (Auto) 0.2H, Neutrophils % (Manual) 94, Lymphocytes % (Manual) 1, Monocytes % (Manual) 2, Band Neutrophils 3, Microcytosis MODERATE, Macrocytosis SLIGHT, Sodium Level 134L, Potassium Level 5.0, Chloride Level 101, Carbon Dioxide Level 21, Anion Gap 12, Blood Urea Nitrogen 27H, Creatinine 1.25, Estimat Glomerular Filtration Rate 73, BUN/Creatinine Ratio 22, Glucose Level 250H, Calcium Level 9.7, Corrected Calcium 9.6, Total Bilirubin 1.4H, Aspartate Amino Transf (AST/SGOT) 22, Alanine Aminotransferase (ALT/SGPT) 23, Alkaline Phosphatase 237H, Total Protein 8.0, Albumin 4.1 01/17/23 11:18: Glucometer 334H Assessment/Plan Assessment/Plan (1) Acute respiratory failure Status: Acute Assessment & Plan: 01/17 Improved, on 2LPM NC, will continue to titrate as tolerated Qualifiers: Qualified Codes: J96.01 - Acute respiratory failure with hypoxia (2) Bilateral pleural effusion Status: Chronic Assessment & Plan: -01/17: US today, Dr Tadeo likely to do thorocentesis (3) Acute on chronic HFrEF (heart failure with reduced ejection fraction) Status: Acute Assessment & Plan: -01/17: cardiology consulted, appreciate recommendations (4) Atrial fibrillation with RVR Status: Resolved Assessment & Plan: -01/17: Rate controlled, OAC (5) COPD exacerbation Status: Acute (6) H/O: substance abuse Status: Chronic Assessment & Plan: - UDS this admission Neg Clinical Quality Measures DVT/VTE Risk/Contraindication: Contraindications-Pharm: Other *list below* Other: hemoptysis JACOBY LINK MD Jan 17, 2023 13:28
[2023-01-17] MEDS ORDERED: CYCL10TA25 PO (13:58)
[2023-01-17] MEDS ORDERED: DILT180C85 PO (13:58)
[2023-01-17] MEDS ORDERED: TRZ50T PO (13:58)
[2023-01-17] MEDS ORDERED: POTA-169 PO (13:58)
[2023-01-17] MEDS ORDERED: ALPRAZolam 0.25 MG (XANAX) TAB ONE (17:48)
[2023-01-17] MEDS: ALPRAZolam 0.25 MG (XANAX) TAB PO PRN (17:49)
[2023-01-17 20:00] VITALS: BP 137/101
[2023-01-18] VITALS: BP 119/79
[2023-01-18] MEDS: methylPREDNISolone 40 MG/ML (Solu-MEDROL) VIAL IV SCH ×2 (00:32→06:30)
[2023-01-18] MEDS: RT-ALBUTEROL/IPRATROPIUM 3 ML (DUONEB) VIAL INH SCH ×6 (02:29→22:14)
[2023-01-18] MEDS: ALPRAZolam 0.25 MG (XANAX) TAB PO PRN ×3 (02:55→20:32)
[2023-01-18] MEDS: CEFEPIME INJECTION 1,000 MG in NS (IVPB) 50 ML IV SCH ×4 (04:12→21:45)
[2023-01-18 04:21] VITALS: BP 128/84
[2023-01-18 05:24] LABS: BASOPHILS % (AUTO) 0 % (0-10); EOSINOPHILS % (AUTO) 0 % (0-10); HEMATOCRIT 44 % (40-54); HEMOGLOBIN 13.7 g/dL (13.3-17.7); LYMPHOCYTES # (AUTO) 0.4 10^3/uL (1.0-4.0); LYMPHOCYTES % (AUTO) 1 % (12-44); MEAN CORPUSCULAR HEMOGLOBIN 26 pg (25-34); MEAN CORPUSCULAR HGB CONC 31 g/dL (32-36); MEAN CORPUSCULAR VOLUME 84 fL (80-99); MEAN PLATELET VOLUME 11.4 fL (9.0-12.2); MONOCYTES # (AUTO) 0.9 10^3/uL (0.0-1.0); MONOCYTES % (AUTO) 4 % (0-12); NEUTROPHILS # (AUTO) 24.2 10^3/uL (1.8-7.8); NEUTROPHILS % (AUTO) 93 % (42-75); PLATELET COUNT 304 10^3/uL (130-400); WHITE BLOOD COUNT 25.9 10^3/uL (4.3-11.0)
[2023-01-18 05:44] LABS: ALBUMIN 4.1 GM/DL (3.2-4.5); BILIRUBIN,TOTAL 1.3 MG/DL (0.1-1.0); CALCIUM 9.9 MG/DL (8.5-10.1); CREATININE SERUM 1.05 MG/DL (0.60-1.30); POTASSIUM 4.8 MMOL/L (3.6-5.0); TOTAL PROTEIN 7.8 GM/DL (6.4-8.2)
[2023-01-18] MEDS: FUROSEMIDE 40 MG/4 ML INJ (LASIX) IVP SCH ×2 (06:29→16:50)
[2023-01-18] MEDS: inSUlin ASPART (NovoLOG) 1 UNIT/0.01 ML (CHARGE PER UNIT) SC SCH ×4 (06:29→20:31)
[2023-01-18] MEDS: RT-BUDESONIDE NEBS 0.5 MG/2ML (PULMICORT) AMP INH SCH ×2 (06:43→22:14)
--- NOTE | 2023-01-18 07:13 | Progress Note - Surgery ---
GINGER BONILLA 01/18/23 0713: Subjective Date Seen by a Provider: Jan 18, 2023 Time Seen by a Provider: 07:00 Subjective/Events-last exam Patient says he is feeling better today. He has slightly decreased SOB and says the breathing treatments are really helping. His pain is rated 5/10 in his chest and ribs from coughing. No radiation of the chest pain. His cough is non- productive. He is not ambulating, his last BM was three days ago but he is having flatus. He is voiding every 2 hours at least. Review of Systems General: No Chills, No Night Sweats HEENT: No Head Aches; Sore Throat (from cough) Pulmonary: Dyspnea, Cough Cardiovascular: No: Chest Pain, Palpitations, Lt Headedness Gastrointestinal: Abdominal Pain (he claimed abdominal pain but indicated it was his lower ribs that were in pain); No: Nausea, Vomiting Genitourinary: No Dysuria, No Frequency, No Incontinence, No Hematuria Musculoskeletal: No: neck pain, back pain Neurological: No: Weakness, Numbness, Confusion Focused Exam Time of Focused Exam: 07:25 Objective Exam Vital Signs Date Time Temp Pulse Resp B/P (MAP) Pulse Ox O2 Delivery O2 Flow Rate FiO2 01/18/23 06:44 91 Nasal Cannula 2.00 01/18/23 04:21 36.8 82 18 128/84 (99) 95 Nasal Cannula 2.00 01/18/23 02:29 96 Nasal Cannula 1.00 01/18/23 01:00 85 01/18/23 00:00 36.2 83 19 119/79 (92) 93 Nasal Cannula 2.00 01/17/23 21:53 95 Nasal Cannula 1.00 01/17/23 20:40 Room Air 01/17/23 20:00 36.0 84 21 137/101 (113) 95 Nasal Cannula 1.00 01/17/23 19:00 103 01/17/23 16:29 36.4 01/17/23 14:33 92 Nasal Cannula 1.50 01/17/23 13:04 82 01/17/23 12:20 37.2 01/17/23 11:12 95 Nasal Cannula 2.00 01/17/23 08:00 Room Air 01/17/23 07:26 36.1 01/17/23 07:11 94 Nasal Cannula 2.00 I & O 01/18/23 07:00 Intake Total 2695 ml Output Total 2025 ml Balance 670 ml Capillary Refill : Less Than 3 Seconds General Appearance: No Apparent Distress, Obese HEENT: PERRL/EOMI, Pharynx Normal, Moist Mucous Membranes Neck: Non Tender, Supple Respiratory: No Accessory Muscle Use, No Respiratory Distress, Decreased Breath Sounds (bases b/l, worse on the right), Wheezing (right side) Cardiovascular: Irregularly Irregular, Tachycardia Gastrointestinal: non tender, soft, distended, other (diastasis recti) Extremity: Non Tender, No Calf Tenderness, No Pedal Edema Neurologic/Psychiatric: Alert, Oriented x3 Skin: Normal Color, Warm/Dry Lymphatic: No Adenopathy Results Lab Laboratory Tests 01/17/23 11:18: Glucometer 334H 01/17/23 15:52: Glucometer 287H 01/17/23 20:31: Glucometer 208H 01/18/23 04:56: White Blood Count 25.9H, Red Blood Count 5.27, Hemoglobin 13.7, Hematocrit 44, Mean Corpuscular Volume 84, Mean Corpuscular Hemoglobin 26, Mean Corpuscular Hemoglobin Concent 31L, Red Cell Distribution Width 19.1H, Platelet Count 304, Mean Platelet Volume 11.4, Immature Granulocyte % (Auto) 2, Neutrophils (%) (Auto) 93H, Lymphocytes (%) (Auto) 1L, Monocytes (%) (Auto) 4, Eosinophils (%) (Auto) 0, Basophils (%) (Auto) 0, Neutrophils # (Auto) 24.2H, Lymphocytes # (Auto) 0.4L, Monocytes # (Auto) 0.9, Eosinophils # (Auto) 0.0, Basophils # (Auto) 0.0, Immature Granulocyte # (Auto) 0.4H, Sodium Level 134L, Potassium Level 4.8, Chloride Level 101, Carbon Dioxide Level 21, Anion Gap 12, Blood Urea Nitrogen 33H, Creatinine 1.05, Estimat Glomerular Filtration Rate 90, BUN/Creatinine Ratio 31, Glucose Level 194H, Calcium Level 9.9, Corrected Calcium 9.8, Total Bilirubin 1.3H, Aspartate Amino Transf (AST/SGOT) 22, Alanine Aminotransferase (ALT/SGPT) 24, Alkaline Phosphatase 204H, Total Protein 7.8, Albumin 4.1 Assessment/Plan Assessment/Plan Assessment/Plan B/l Pleural Effusion larger on right Hypoxia Ascites Chonic heart failure AFib SOB Leukocytosis Hx substance abuse. CT showed large pleural effusion measuring 9.3cm. Plan to do thoracentesis on this admission, hold lovenox prior Monitor WBC with AM labs; 25.9 today from 23.5 yesterday u/s chest obtained to make sure accessible for procedure. Consent for procedure needed Pt. has upper abdominal ascites, will monitor for improvement following thoracentesis and continued lasix use CHF and AFib being managed by cardiology Clinical Quality Measures DVT/VTE Risk/Contraindication: Contraindications-Pharm: Other *list below* Other: hemoptysis LOYD TADEO DO 01/18/23 1414: Subjective Subjective/Events-last exam Feeling better. Still with shortness of breath. Chest wall hurting from coughing. Rates it at 5/10. Not had any nausea or emesis. Planning for Thoracentesis today. Denies n/v fever sweats chill or chest pain at this time. U/s reviewed and has b/l effusion right greater than left. Objective Exam General Appearance: No Apparent Distress, Obese HEENT: PERRL/EOMI, Moist Mucous Membranes Neck: Non Tender, Supple Respiratory: No Accessory Muscle Use, No Respiratory Distress, Decreased Breath Sounds (bases b/l, worse on the right) Cardiovascular: Irregularly Irregular, Tachycardia Gastrointestinal: non tender, soft; No distended; other (diastasis recti) Extremity: Non Tender, No Calf Tenderness Neurologic/Psychiatric: Alert, Oriented x3 Skin: Normal Color, Warm/Dry Lymphatic: No Adenopathy Assessment/Plan Assessment/Plan Assessment/Plan B/l Pleural Effusion larger on right Hypoxia Ascites Chonic heart failure AFib SOB Leukocytosis Hx substance abuse. CT showed large pleural effusion measuring 9.3cm. Plan to do thoracentesis on this admission, hold lovenox prior, after thoracentesis can restart. Monitor WBC with AM labs; 25.9 today from 23.5 yesterday Consent for procedure Pt. has upper abdominal ascites, will monitor for improvement following thoracentesis and continued lasix use CHF and AFib being managed by cardiology right u/s guided thoracentesis performed 2150mL out. Chest x ray to follow. Supervisory-Addendum Brief Verification & Attestation Participated in pt care: history, MDM, physical Personally performed: exam, history, MDM, supervision of care Care discussed with: Medical Student Procedures: n/a Results interpretation: Verified all documentation Verification and Attestation of Medical Student E/M Service A medical student performed and documented this service in my presence. I reviewed and verified all information documented by the medical student and made modifications to such information, when appropriate. I personally performed the physical exam and medical decision making. Loyd Tadeo, Jan 18, 2023,14:14 GINGER BONILLA Jan 18, 2023 07:13 LOYD TADEO DO Jan 18, 2023 14:14
[2023-01-18 07:47] VITALS: BP 130/95
[2023-01-18] MEDS: DOCUSATE SODIUM 100 MG (COLACE) CAP PO SCH ×2 (08:36→20:32)
[2023-01-18] MEDS: SENNOSIDES 8.6 MG (SENOKOT) TAB PO SCH ×2 (08:36→20:32)
--- NOTE | 2023-01-18 09:05 | Progress Note - Cardiology ---
Cardiology SOAP Progress Note Subjective: Lying in bed Continues to c/o CP Continues to c/o SOB Objective: I&O/Vital Signs 01/18/23 01/18/23 01/18/23 01/18/23 04:21 06:44 07:20 07:47 Temp 36.8 35.5 Pulse 82 82 85 Resp 18 25 B/P (MAP) 128/84 (99) 130/95 (107) Pulse Ox 95 91 94 O2 Delivery Nasal Cannula Nasal Cannula Nasal Cannula O2 Flow Rate 2.00 2.00 1.00 01/18/23 01/18/23 01/18/23 01/18/23 08:30 10:30 12:46 15:05 Pulse 92 Pulse Ox 91 92 O2 Delivery Room Air Nasal Cannula Nasal Cannula O2 Flow Rate 2.00 2.00 01/18/23 00:00 Intake Total 1945 ml Output Total 1025 ml Balance 920 ml Constitutional: AAO x 3 Respiratory: No accessory muscle use, No respiratory distress; chest expansion is symmetric, chest is bilaterally symmetric, other (diminished lower lobes bilat) Cardiovascular: irregularly irregular; No JVD; S1 and S2 Gastrointestional: No tender; soft, audible bowel sounds Extremities: no lower extremity edema bilateral Neurologic/Psychiatric: grossly intact (moves all extremities) Skin: normal color, warm/dry; No rash on exposed areas, No ulcerations on exposed areas Results/Procedures: Labs Laboratory Tests 01/17/23 15:52: Glucometer 287H 01/17/23 20:31: Glucometer 208H 01/18/23 04:56: White Blood Count 25.9H, Red Blood Count 5.27, Hemoglobin 13.7, Hematocrit 44, Mean Corpuscular Volume 84, Mean Corpuscular Hemoglobin 26, Mean Corpuscular Hemoglobin Concent 31L, Red Cell Distribution Width 19.1H, Platelet Count 304, Mean Platelet Volume 11.4, Immature Granulocyte % (Auto) 2, Neutrophils (%) (Auto) 93H, Lymphocytes (%) (Auto) 1L, Monocytes (%) (Auto) 4, Eosinophils (%) (Auto) 0, Basophils (%) (Auto) 0, Neutrophils # (Auto) 24.2H, Lymphocytes # (Auto) 0.4L, Monocytes # (Auto) 0.9, Eosinophils # (Auto) 0.0, Basophils # (Auto) 0.0, Immature Granulocyte # (Auto) 0.4H, Sodium Level 134L, Potassium Level 4.8, Chloride Level 101, Carbon Dioxide Level 21, Anion Gap 12, Blood Urea Nitrogen 33H, Creatinine 1.05, Estimat Glomerular Filtration Rate 90, BUN/Creatinine Ratio 31, Glucose Level 194H, Calcium Level 9.9, Corrected Calcium 9.8, Total Bilirubin 1.3H, Aspartate Amino Transf (AST/SGOT) 22, Alanine Aminotransferase (ALT/SGPT) 24, Alkaline Phosphatase 204H, Total Protein 7.8, Albumin 4.1 01/18/23 10:51: Glucometer 240H 01/18/23 13:30: Body Fluid Source PLEURAL, Body Fluid Color PALE YELLOW, Body Fluid Appearance SLT CLDY, Body Fluid WBC 0.424, Body Fluid RBC 0.003, Body Fl Polynuclear WBCs (%)(Auto) 6.6, Body Fluid Mononuclear Cells % Auto 93.4, Body Fluid Glucose 218, Body Fluid Total Protein 3.5 Procedures NAME: PAL VALERIO [facility] REC#: [id number] PT STATUS: ADM IN : 1980 PHYSICIAN: LOYD WATSON DO ADMIT DATE: 01/16/23/[facility] Signed Date of Exam:01/17/23 [place] CHEST [id number] INDICATION: Shortness of breath Ultrasound of the chest shows bilateral pleural effusions. This is moderate-sized on the right and small on the left. IMPRESSION: Bilateral pleural effusions larger on the right than on the left. Dictated by: Dictated on workstation # [id number] Dict: 01/17/23 0954 Trans: 01/17/23 1158 [facility] [id number] Interpreted by: ELEUTERIO HARRIS MD Electronically signed by: ELEUTERIO HARRIS MD 01/17/23 1158 NAME: PAL VALERIO [facility] REC#: [id number] PT STATUS: ADM IN : 1980 PHYSICIAN: JULIANO ALFONSO DO ADMIT DATE: 01/16/23/ICU Signed Date of Exam:01/16/23 CT ANGIO CHEST W (R/O PE) INDICATION: Dyspnea, hemoptysis. FINDINGS: There are no intraluminal pulmonary arterial filling defects. There were no findings of pulmonary arterial embolus. There are bilateral pleural effusions, greater right, nonloculated. The right layers to a depth of 9.3 cm. No lung mass. No thoracic lymphadenopathy. No pneumothorax. The heart size is felt to be within normal limits. Upper abdomen shows ascites with no free air. No acute bony pathology. IMPRESSION: Negative for PE, pleural effusions and ascites with normal heart size. No lung mass or adenopathy. No pneumothorax or acute chest wall pathology. Dictated by: Dictated on workstation # [id number] Dict: 01/16/23712 Trans: 01/16/23903 [facility] [id number] Interpreted by: LOLA VARGAS Electronically signed by: LOLA VARGAS 01/16/23903 A/P: Assessment: Acute on chronic systolic CHF - continue diuretics Shortness of breath, cough, bilateral pleural effusion worse on the right - Planning for thoracentesis per Dr. Watson H/O non-sustained WCT on 10/21/22 and 10/22/22, - probably aberrance during A Fib with RVR - on amiodarone since 10/22/22. Heart rate is better controlled since and no recurrence of WCT H/O recent hospitalization with acute respiratory failure requiring intubation - extubated 10-16-22 - multi-factorial d/t pneumonia and acute on chronic systolic CHF Acute on chronic systolic congestive heart failure - Echo was done in April 2022 with ejection fraction 40 to 45% with biatrial enlargement, moderate mitral regurgitation, pulmonary artery pressure 45 to 50 mmHg. - Echo of 10-11-[address] Hernandez showed LVEF 35-40%. Mod sized L pleural effusion. Mild MR. Mild to mod TR. - Echo on 10-26-22: LVEF 50-55%, mod biatrial enlargement, mod plearl eff Persistent/permanent atrial fibrillation/flutter - History of ablation done in [place] in late 2020, previously refusing any further ablation - Had been maintained on Eliquis (unsure of compliance) -Xarelto for stroke prophylaxis - currently on Lovenox d/t scheduled thoracentesis today (01-18-23) Nonischemic cardiomyopathy - cardiac catheterization done in [place] around 2019 did not show any obstructive disease. History of methamphetamine abuse. - Had still using it intermittently, he was found to have methamphetamine in his pocket during recent hospitalization - UDS negative this admission EtOH abuse. Acute renal failure - renal function improved Hyperlipidemia Tobaccoism History of noncompliance with medication or medical instruction History of elevated liver enzymes. - Probably underlying cirrhosis seen on CTA of the abdomen in the past. Plan: Notes from Dr. Hernandez reviewed in detail Plan is for thoracentsis today by Dr. Watson Acute on chronic systolic CHF - continue diuretics Continue current medication regimen Continue Lovenox for stroke prophylaxis (being held x 2 doses d/t thoracentesis planned) - change to Xarelto when ok with surgical services Monitor lab closely Replace electrolytes as indicated Further recs will be based on his hospital course ANN RHOADES Jan 18, 2023 09:05
--- NOTE | 2023-01-18 11:08 | Progress Note ---
Subjective Subjective/Events-last exam Patient states that he is doing well today. He is anxious about the procedure later today. Tolerating PO diet and ambulation. Review of Systems General: Fatigue Pulmonary: Dyspnea, Cough Cardiovascular: Chest Pain; No: Palpitations, Edema Gastrointestinal: No: Nausea, Vomiting, Abdominal Pain, Diarrhea, Constipation Neurological: Weakness; No: Confusion Focused Exam Time of Focused Exam: 07:25 Objective Exam Last Set of Vital Signs Vital Signs Date Time Temp Pulse Resp B/P (MAP) Pulse Ox O2 Delivery O2 Flow Rate FiO2 01/18/23 10:30 91 Nasal Cannula 2.00 01/18/23 07:47 35.5 85 25 130/95 (107) 01/16/23 09:27 21 Capillary Refill : Less Than 3 Seconds I&O Intake and Output 01/18/23 00:00 Intake Total 2445 ml Output Total 1425 ml Balance 1020 ml Intake Oral 2245 ml IV Total 200 ml Output Urine Total 1425 ml General: Alert, Oriented X3, No Acute Distress Lungs: Other (diminished breath sounds, basilar wheezing, normal work of breathing at baseline) Heart: Regular Rate, No Murmurs Abdomen: Soft, No Tenderness Extremities: Other (2+ pitting edema equal bilaterally) Neuro: Normal Speech Results/Procedures Lab Laboratory Tests 01/17/23 11:18: Glucometer 334H 01/17/23 15:52: Glucometer 287H 01/17/23 20:31: Glucometer 208H 01/18/23 04:56: White Blood Count 25.9H, Red Blood Count 5.27, Hemoglobin 13.7, Hematocrit 44, Mean Corpuscular Volume 84, Mean Corpuscular Hemoglobin 26, Mean Corpuscular Hemoglobin Concent 31L, Red Cell Distribution Width 19.1H, Platelet Count 304, Mean Platelet Volume 11.4, Immature Granulocyte % (Auto) 2, Neutrophils (%) (Auto) 93H, Lymphocytes (%) (Auto) 1L, Monocytes (%) (Auto) 4, Eosinophils (%) (Auto) 0, Basophils (%) (Auto) 0, Neutrophils # (Auto) 24.2H, Lymphocytes # (Auto) 0.4L, Monocytes # (Auto) 0.9, Eosinophils # (Auto) 0.0, Basophils # (Auto) 0.0, Immature Granulocyte # (Auto) 0.4H, Sodium Level 134L, Potassium Level 4.8, Chloride Level 101, Carbon Dioxide Level 21, Anion Gap 12, Blood Urea Nitrogen 33H, Creatinine 1.05, Estimat Glomerular Filtration Rate 90, BUN/Creatinine Ratio 31, Glucose Level 194H, Calcium Level 9.9, Corrected Calcium 9.8, Total Bilirubin 1.3H, Aspartate Amino Transf (AST/SGOT) 22, Alanine Aminotransferase (ALT/SGPT) 24, Alkaline Phosphatase 204H, Total Protein 7.8, Albumin 4.1 Assessment/Plan Assessment/Plan (1) Acute respiratory failure Status: Acute Assessment & Plan: 01/17 Improved, on 2LPM NC, will continue to titrate as tolerated 01/18: improving, plan to do thoracentesis today Qualifiers: Qualified Codes: J96.01 - Acute respiratory failure with hypoxia (2) Bilateral pleural effusion Status: Chronic Assessment & Plan: -01/17: US today, Dr Tadeo likely to do thorocentesis 01/18: Thorocentesis today, will send fluid for analysis (3) Acute on chronic HFrEF (heart failure with reduced ejection fraction) Status: Acute Assessment & Plan: -01/17: cardiology consulted, appreciate recommendations (4) Atrial fibrillation with RVR Status: Resolved Assessment & Plan: -01/17: Rate controlled, OAC (5) COPD exacerbation Status: Acute (6) H/O: substance abuse Status: Chronic Assessment & Plan: - UDS this admission Neg 01/18: Living at [facility], doing well staying clean Clinical Quality Measures DVT/VTE Risk/Contraindication: Contraindications-Pharm: Other *list below* Other: hemoptysis JACOBY LINK MD Jan 18, 2023 11:08
--- NOTE | 2023-01-18 13:03 | Progress Note - Cardiology ---
Cardiology SOAP Progress Note Subjective: No cp or palp or syncope Gen weakness and malaise No shortness of breath at rest No n/v/d Objective: I&O/Vital Signs 01/18/23 01/18/23 01/18/23 01/18/23 01:00 02:29 04:21 06:44 Temp 36.8 Pulse 85 82 Resp 18 B/P (MAP) 128/84 (99) Pulse Ox 96 95 91 O2 Delivery Nasal Cannula Nasal Cannula Nasal Cannula O2 Flow Rate 1.00 2.00 2.00 01/18/23 01/18/23 01/18/23 07:20 07:47 10:30 Temp 35.5 Pulse 82 85 Resp 25 B/P (MAP) 130/95 (107) Pulse Ox 94 91 O2 Delivery Nasal Cannula Nasal Cannula O2 Flow Rate 1.00 2.00 01/18/23 00:00 Intake Total 1945 ml Output Total 1025 ml Balance 920 ml Constitutional: AAO x 3 Respiratory: No accessory muscle use, No respiratory distress; chest expansion is symmetric, chest is bilaterally symmetric, other (diminished lower lobes bilat) Cardiovascular: irregularly irregular; No JVD; S1 and S2 Gastrointestional: No tender; soft, audible bowel sounds Extremities: no lower extremity edema bilateral Neurologic/Psychiatric: grossly intact (moves all extremities) Skin: normal color, warm/dry; No rash on exposed areas, No ulcerations on exposed areas Results/Procedures: Labs Laboratory Tests 01/17/23 15:52: Glucometer 287H 01/17/23 20:31: Glucometer 208H 01/18/23 04:56: White Blood Count 25.9H, Red Blood Count 5.27, Hemoglobin 13.7, Hematocrit 44, Mean Corpuscular Volume 84, Mean Corpuscular Hemoglobin 26, Mean Corpuscular Hemoglobin Concent 31L, Red Cell Distribution Width 19.1H, Platelet Count 304, Mean Platelet Volume 11.4, Immature Granulocyte % (Auto) 2, Neutrophils (%) (Auto) 93H, Lymphocytes (%) (Auto) 1L, Monocytes (%) (Auto) 4, Eosinophils (%) (Auto) 0, Basophils (%) (Auto) 0, Neutrophils # (Auto) 24.2H, Lymphocytes # (Auto) 0.4L, Monocytes # (Auto) 0.9, Eosinophils # (Auto) 0.0, Basophils # (Auto) 0.0, Immature Granulocyte # (Auto) 0.4H, Sodium Level 134L, Potassium Level 4.8, Chloride Level 101, Carbon Dioxide Level 21, Anion Gap 12, Blood Urea Nitrogen 33H, Creatinine 1.05, Estimat Glomerular Filtration Rate 90, BUN/Creatinine Ratio 31, Glucose Level 194H, Calcium Level 9.9, Corrected Calcium 9.8, Total Bilirubin 1.3H, Aspartate Amino Transf (AST/SGOT) 22, Alanine Aminotransferase (ALT/SGPT) 24, Alkaline Phosphatase 204H, Total Protein 7.8, Albumin 4.1 01/18/23 10:51: Glucometer 240H Laboratory Tests 01/17/23 03:43 01/18/23 04:56 A/P: Assessment: Marked leucocytosis of undetermined etiology - being managed by the Med sve Acute on chronic systolic CHF - continue diuretics Shortness of breath, cough, bilateral pleural effusion worse on the right - Planning for thoracentesis per Dr. Tadeo H/O non-sustained WCT on 10/21/22 and 10/22/22, - probably aberrance during A Fib with RVR - on amiodarone since 10/22/22. Heart rate is better controlled since and no recurrence of WCT H/O recent hospitalization with acute respiratory failure requiring intubation - extubated 10-16-22 - multi-factorial d/t pneumonia and acute on chronic systolic CHF Acute on chronic systolic congestive heart failure - Echo was done in April 2022 with ejection fraction 40 to 45% with biatrial enlargement, moderate mitral regurgitation, pulmonary artery pressure 45 to 50 mmHg. - Echo of 10-11-[address] Hernandez showed LVEF 35-40%. Mod sized L pleural effusion. Mild MR. Mild to mod TR. - Echo on 10-26-22: LVEF 50-55%, mod biatrial enlargement, mod pleural eff Persistent/permanent atrial fibrillation/flutter - History of ablation done in [place] in late 2020, previously refusing any further ablation - Had previously been on Eliquis but had had compliance issues - Lately on Xarelto for stroke prophylaxis - currently on Lovenox d/t scheduled thoracentesis today (01-18-23) Nonischemic cardiomyopathy - cardiac catheterization done in [place] around 2019 did not show any obstructive disease. History of methamphetamine abuse. - Had still using it intermittently, he was found to have methamphetamine in his pocket during recent hospitalization - UDS negative this admission EtOH abuse. Acute renal failure - renal function improved Hyperlipidemia Tobaccoism History of noncompliance with medication or medical instruction History of elevated liver enzymes. - Probably underlying cirrhosis seen on CTA of the abdomen in the past. Plan: I interviewed and examined him and reviewed the records of this admission Plan is for thoracentesis for pleural eff Med svce is managing leucocytosi For acute on chronic systolic CHF - continue diuretics Continue Lovenox for stroke prophylaxis (being held x 2 doses d/t thoracentesis planned) - change to Xarelto when ok with surgical services Monitor lab closely Replace electrolytes as indicated Further recs will be based on his hospital course SAVI SILVA MD FACP FAC CCDS Jan 18, 2023 13:03
[2023-01-18] MEDS ORDERED: LIDOCAINE 1% INJ 20 ML VIAL ONE (13:22)
--- NOTE | 2023-01-18 14:28 | Diagnostic Imaging Report ---
INDICATION: Post thoracentesis. TECHNIQUE: Single view chest 2:03 PM. CORRELATION STUDY: 01/16/2023 FINDINGS: Previously noted right pleural effusion has decreased in size post thoracentesis. There is no appreciable pneumothorax. Left hemithorax generally stable. Heart size and mediastinum are unchanged. Borderline vasculature. IMPRESSION: 1. Decreased right pleural effusion post thoracentesis. No appreciable pneumothorax. Generally stable appearance left hemithorax. Dictated by: Dictated on workstation # [id number]
[2023-01-18 14:32] LABS: BODY FLUID RBC COUNT 0.003 10^6/uL; BODY FLUID WBC TOTAL COUNT 0.424 10^3/uL
[2023-01-18 14:37] LABS: BODY FLUID APPEARENCE SLT CLDY; BODY FLUID COLOR PALE YELLOW; BODY FLUID SOURCE PLEURAL
[2023-01-18] MEDS: HYDROmorphone 2 MG/ML VIAL (DILAUDID) IV PRN ×2 (14:43→19:01)
[2023-01-18 14:58] LABS: GLUCOSE,BODY FLUID 218 MG/DL; TOTAL PROTEIN,BODY FLUID 3.5 G/DL
[2023-01-18 16:20] VITALS: BP 120/93
[2023-01-18 19:55] VITALS: BP 125/80
[2023-01-18] MEDS: ENOXAPARIN 100 MG/1 ML (LOVENOX) SYR SQ SCH (20:32)
[2023-01-18] MEDS: diphenhydrAMINE 25 MG TAB (BENADRYL) PO PRN (20:38)
--- NOTE | 2023-01-18 23:58 | OPERATIVE REPORT ---
DATE OF SERVICE: 01/18/2023 PREOPERATIVE DIAGNOSIS: Right pleural effusion. POSTOPERATIVE DIAGNOSIS: Right pleural effusion. PROCEDURE: Ultrasound-guided right thoracentesis. SURGEON: Loyd Tadeo DO ANESTHESIA: 1% lidocaine, 4 mL. COMPLICATIONS: None. INDICATIONS: The patient is a 42-year-old male with shortness of breath. He has a right pleural effusion. He understands risks and benefits of procedure and wishes to proceed. Consent was signed in chart. DESCRIPTION OF PROCEDURE: The patient was taken to the bedside where he was in the upright sitting position. Ultrasound was used to isolate the largest pocket and inflate this area for insertion for thoracentesis. The area was marked and area was prepped and draped in a sterile fashion. Timeout was performed. Local anesthetic was infiltrated and an 11 blade scalpel was used to make a small skin incision. A [id number] needle was then inserted into the right chest posteriorly, anteriorly into the pocket of fluid with a catheter was then inserted and the needle was removed. A 2150 mL of straw-colored fluid was withdrawn. The catheter was then removed and sterile bandage was applied. The patient tolerated the procedure well, with no complications. Chest x-ray is pending. Job ID: [id number] DocumentID: [id number] Dictated Date: 01/18/2023 20:50:31 [employer] Specialist Date: 01/18/2023 23:57:00 Dictated By: LOYD TADEO DO
[2023-01-19] VITALS: BP 120/49
[2023-01-19] MEDS: RT-ALBUTEROL/IPRATROPIUM 3 ML (DUONEB) VIAL INH SCH ×4 (02:35→21:55)
[2023-01-19] MEDS: ALPRAZolam 0.25 MG (XANAX) TAB PO PRN ×2 (03:16→20:47)
[2023-01-19] MEDS: CEFEPIME INJECTION 1,000 MG in NS (IVPB) 50 ML IV SCH ×4 (03:17→20:53)
[2023-01-19 03:18] VITALS: BP 105/82
[2023-01-19 04:32] LABS: BASOPHILS % (AUTO) 0 % (0-10); EOSINOPHILS % (AUTO) 0 % (0-10); HEMATOCRIT 42 % (40-54); HEMOGLOBIN 12.9 g/dL (13.3-17.7); LYMPHOCYTES # (AUTO) 0.3 10^3/uL (1.0-4.0); LYMPHOCYTES % (AUTO) 1 % (12-44); MEAN CORPUSCULAR HEMOGLOBIN 26 pg (25-34); MEAN CORPUSCULAR HGB CONC 31 g/dL (32-36); MEAN CORPUSCULAR VOLUME 84 fL (80-99); MEAN PLATELET VOLUME 11.3 fL (9.0-12.2); MONOCYTES # (AUTO) 1.2 10^3/uL (0.0-1.0); MONOCYTES % (AUTO) 6 % (0-12); NEUTROPHILS # (AUTO) 19.4 10^3/uL (1.8-7.8); NEUTROPHILS % (AUTO) 92 % (42-75); PLATELET COUNT 255 10^3/uL (130-400)
[2023-01-19 04:41] LABS: ALBUMIN 3.7 GM/DL (3.2-4.5); POTASSIUM 4.5 MMOL/L (3.6-5.0)
[2023-01-19 04:42] LABS: CALCIUM 9.5 MG/DL (8.5-10.1)
[2023-01-19 04:45] LABS: BILIRUBIN,TOTAL 1.1 MG/DL (0.1-1.0)
[2023-01-19 04:47] LABS: CREATININE SERUM 0.89 MG/DL (0.60-1.30)
[2023-01-19] MEDS: inSUlin ASPART (NovoLOG) 1 UNIT/0.01 ML (CHARGE PER UNIT) SC SCH ×4 (06:00→20:52)
[2023-01-19] MEDS: FUROSEMIDE 40 MG/4 ML INJ (LASIX) IVP SCH (06:00)
[2023-01-19] MEDS: RT-BUDESONIDE NEBS 0.5 MG/2ML (PULMICORT) AMP INH SCH ×2 (06:59→21:55)
[2023-01-19 07:00] VITALS: BP 105/82
--- NOTE | 2023-01-19 07:18 | Progress Note - Surgery ---
GINGER BONILLA 01/19/23 0717: Subjective Date Seen by a Provider: Jan 19, 2023 Time Seen by a Provider: 06:50 Subjective/Events-last exam Patient is feeling better today with less SOB than he had before the thoracentesis. He endorses some pain at the needle entrance sight but nothing severe. Follow up CXR showed decreased effusion and no evidence of pneumo. He is voiding normally, has not had a BM but is passing gas. He said he is ready to go home. Review of Systems General: No Chills, No Night Sweats HEENT: No Head Aches, No Dysphasia, No Sore Throat Pulmonary: Dyspnea (improved); No Cough Cardiovascular: No: Chest Pain, Palpitations, Lt Headedness Gastrointestinal: No: Nausea, Vomiting, Abdominal Pain Genitourinary: No Dysuria, No Frequency Musculoskeletal: back pain (at needle site); No: neck pain, leg pain Neurological: No: Weakness, Numbness Focused Exam Time of Focused Exam: 07:25 Objective Exam Vital Signs Date Time Temp Pulse Resp B/P (MAP) Pulse Ox O2 Delivery O2 Flow Rate FiO2 01/19/23 07:00 94 Nasal Cannula 2.00 01/19/23 07:00 36.6 90 94 01/19/23 03:59 90 01/19/23 03:18 36.6 95 20 105/82 (90) 90 Nasal Cannula 3.00 01/19/23 01:00 90 01/19/23 00:00 36.6 93 17 120/49 (72) 93 Nasal Cannula 3.00 01/18/23 22:15 93 Nasal Cannula 2.00 01/18/23 20:00 95 Nasal Cannula 3.00 01/18/23 19:55 36.3 87 19 125/80 (95) 95 Nasal Cannula 3.00 01/18/23 19:00 83 01/18/23 18:44 94 Nasal Cannula 2.00 01/18/23 16:20 36.4 91 22 120/93 (102) 95 Nasal Cannula 3.00 01/18/23 15:05 92 Nasal Cannula 2.00 01/18/23 12:46 92 01/18/23 10:30 91 Nasal Cannula 2.00 01/18/23 08:30 Room Air 01/18/23 07:47 35.5 85 25 130/95 (107) 94 Nasal Cannula 1.00 01/18/23 07:20 82 I & O 01/19/23 06:59 Intake Total 2110 ml Output Total 3425 ml Balance -1315 ml Capillary Refill : Less Than 3 Seconds General Appearance: No Apparent Distress, Chronically ill HEENT: PERRL/EOMI, Moist Mucous Membranes Neck: Non Tender, Supple Respiratory: No Accessory Muscle Use, No Respiratory Distress, Decreased Breath Sounds (left lung base) Cardiovascular: Irregularly Irregular, Tachycardia Gastrointestinal: non tender, soft; No distended; other (diastasis recti) Extremity: Non Tender, No Calf Tenderness Neurologic/Psychiatric: Alert, Oriented x3 Skin: Normal Color, Warm/Dry Lymphatic: No Adenopathy Results Lab Laboratory Tests 01/18/23 10:51: Glucometer 240H 01/18/23 13:30: Body Fluid Source PLEURAL, Body Fluid Color PALE YELLOW, Body Fluid Appearance SLT CLDY, Body Fluid WBC 0.424, Body Fluid RBC 0.003, Body Fl Polynuclear WBCs (%)(Auto) 6.6, Body Fluid Mononuclear Cells % Auto 93.4, Body Fluid Slide Review Yes, Body Fluid Glucose 218, Body Fluid Total Protein 3.5 01/18/23 16:49: Glucometer 256H 01/18/23 19:59: Glucometer 230H 01/19/23 03:58: White Blood Count 21.0H, Red Blood Count 4.97, Hemoglobin 12.9L, Hematocrit 42, Mean Corpuscular Volume 84, Mean Corpuscular Hemoglobin 26, Mean Corpuscular Hemoglobin Concent 31L, Red Cell Distribution Width 18.9H, Platelet Count 255, Mean Platelet Volume 11.3, Immature Granulocyte % (Auto) 1, Neutrophils (%) (Auto) 92H, Lymphocytes (%) (Auto) 1L, Monocytes (%) (Auto) 6, Eosinophils (%) (Auto) 0, Basophils (%) (Auto) 0, Neutrophils # (Auto) 19.4H, Lymphocytes # (Auto) 0.3L, Monocytes # (Auto) 1.2H, Eosinophils # (Auto) 0.0, Basophils # (Auto) 0.0, Immature Granulocyte # (Auto) 0.2H, Sodium Level 136, Potassium Level 4.5, Chloride Level 101, Carbon Dioxide Level 23, Anion Gap 12, Blood Urea Nitrogen 35H, Creatinine 0.89, Estimat Glomerular Filtration Rate 109, BUN/Creatinine Ratio 39, Glucose Level 194H, Calcium Level 9.5, Corrected Calc ium 9.7, Total Bilirubin 1.1H, Aspartate Amino Transf (AST/SGOT) 19, Alanine Aminotransferase (ALT/SGPT) 24, Alkaline Phosphatase 184H, Total Protein 7.0, Albumin 3.7 Assessment/Plan Assessment/Plan Assessment/Plan B/l Pleural Effusion larger on right Hypoxia Ascites Chonic heart failure AFib SOB Leukocytosis Hx substance abuse. CT showed large pleural effusion measuring 9.3cm. Thoracentesis completed yesterday, patient tolerated the procedure well, has decreased SOB today CXR showed decreased effusion on the right lung, no evidence of pneumothorax Can restart lovenox Monitor WBC with AM labs; 21 today from 25.9 yesterday Pt. has upper abdominal ascites, will monitor for improvement following thoracentesis and continued lasix use CHF and AFib being managed by cardiology right u/s guided thoracentesis performed 2150mL out. Chest x ray to follow. Clinical Quality Measures DVT/VTE Risk/Contraindication: Contraindications-Pharm: Other *list below* Other: hemoptysis LOYD TADEO DO 01/19/23 1704: Subjective Subjective/Events-last exam Feeling better. No significant shortness of breath. Breathing easier. No new complaints. Denies n/v fever sweats chills or chest pain. Wanting to go home. Objective Exam General Appearance: No Apparent Distress, Chronically ill HEENT: PERRL/EOMI, Moist Mucous Membranes Neck: Non Tender, Supple Respiratory: Chest Non Tender, No Accessory Muscle Use, No Respiratory Distress Cardiovascular: Irregularly Irregular, Tachycardia Gastrointestinal: non tender, soft, other (diastasis recti) Extremity: Non Tender, No Calf Tenderness Neurologic/Psychiatric: Alert, Oriented x3 Skin: Normal Color, Warm/Dry Lymphatic: No Adenopathy Assessment/Plan Assessment/Plan Assessment/Plan B/l Pleural Effusion larger on right Hypoxia Ascites Chonic heart failure AFib SOB Leukocytosis Hx substance abuse. CT showed large pleural effusion measuring 9.3cm. Thoracentesis completed yeste rd, patient tolerated the procedure well, has decreased SOB today CXR showed decreased effusion on the right lung, no evidence of pneumothorax Can restart lovenox Doing better. Will follow up on cytology in office. Will sign off, call if needed. Supervisory-Addendum Brief Verification & Attestation Participated in pt care: history, MDM, physical Personally performed: exam, history, MDM, supervision of care Care discussed with: Medical Student Procedures: n/a Results interpretation: Verified all documentation Verification and Attestation of Medical Student E/M Service A medical student performed and documented this service in my presence. I reviewed and verified all information documented by the medical student and made modifications to such information, when appropriate. I personally performed the physical exam and medical decision making. Loyd Tadeo, Jan 19, 2023,17:04 GINGER BONILLA Jan 19, 2023 07:17 LOYD TADEO DO Jan 19, 2023 17:04
[2023-01-19 08:00] VITALS: BP 115/79
--- NOTE | 2023-01-19 08:29 | Progress Note - Cardiology ---
Cardiology SOAP Progress Note Subjective: Sitting up on the side of the bed States he feels better today Chest pain has not completely resolved, but he reports is significantly better than before Feels SOB is better today Objective: I&O/Vital Signs 01/19/23 01/20/23 01/20/23 01/20/23 21:55 01:00 03:12 04:00 Temp 36.2 Pulse 90 91 100 Resp 37 11 B/P (MAP) 109/68 (82) 101/73 (82) Pulse Ox 95 95 95 O2 Delivery Room Air Nasal Cannula Nasal Cannula O2 Flow Rate 3.00 2.00 2.00 01/20/23 01/20/23 07:00 08:00 Pulse 79 81 Resp 22 B/P (MAP) 122/98 (106) Pulse Ox 95 O2 Delivery Nasal Cannula O2 Flow Rate 2.00 01/20/23 00:00 Intake Total 3024 ml Output Total 3100 ml Balance -76 ml Constitutional: AAO x 3 Respiratory: No accessory muscle use, No respiratory distress; chest expansion is symmetric, chest is bilaterally symmetric, other (diminished lower lobes bilat) Cardiovascular: irregularly irregular; No JVD; S1 and S2 Gastrointestional: No tender; soft, audible bowel sounds Extremities: no lower extremity edema bilateral Neurologic/Psychiatric: grossly intact (moves all extremities) Skin: normal color, warm/dry; No rash on exposed areas, No ulcerations on exposed areas Results/Procedures: Labs Laboratory Tests 01/19/23 12:35: Glucometer 258H 01/19/23 18:03: Glucometer 171H 01/19/23 20:46: Glucometer 161H 01/20/23 04:43: White Blood Count 14.8H, Red Blood Count 5.29, Hemoglobin 14.0, Hematocrit 45, Mean Corpuscular Volume 85, Mean Corpuscular Hemoglobin 27, Mean Corpuscular Hemoglobin Concent 31L, Red Cell Distribution Width 19.3H, Platelet Count 264, Mean Platelet Volume 11.3, Immature Granulocyte % (Auto) 1, Neutrophils (%) (Auto) 84H, Lymphocytes (%) (Auto) 7L, Monocytes (%) (Auto) 8, Eosinophils (%) (Auto) 0, Basophils (%) (Auto) 0, Neutrophils # (Auto) 12.4H, Lymphocytes # (Auto) 1.0, Monocytes # (Auto) 1.1H, Eosinophils # (Auto) 0.0, Basophils # (Auto) 0.0, Immature Granulocyte # (Auto) 0.2H, Sodium Level 138, Potassium Level 4.2, Chloride Level 100, Carbon Dioxide Level 27, Anion Gap 11, Blood Urea Nitrogen 33H, Creatinine 0.93, Estimat Glomerular Filtration Rate 104, BUN/Creatinine Ratio 35, Glucose Level 122H, Calcium Level 9.5, Corrected Calcium 9.7, Magnesium Level 2.0, Total Bilirubin 1.0, Aspartate Amino Transf (AST/SGOT) 26, Alanine Aminotransferase (ALT/SGPT) 31, Alkaline Phosphatase 197H , Total Protein 7.2, Albumin 3.8 Microbiology 01/18/23 Gram Stain - Final, Resulted 01/18/23 Anaerobic Culture, Resulted Pending 01/18/23 Body Fluid Culture - Preliminary, Resulted No growth A/P: Assessment: Marked leucocytosis of undetermined etiology - being managed by the [facility] Acute on chronic systolic CHF - continue diuretics Shortness of breath, cough, bilateral pleural effusion worse on the right - undetermined etiology - s/p thoracentesis on 01-18-[address] Tadeo (2150ml) H/O non-sustained WCT on 10/21/22 and 10/22/22, - probably aberrance during A Fib with RVR - on amiodarone since 10/22/22. Heart rate is better controlled since and no recurrence of WCT H/O recent hospitalization with acute respiratory failure requiring intubation - extubated 10-16-22 - multi-factorial d/t pneumonia and acute on chronic systolic CHF Acute on chronic systolic congestive heart failure - Echo was done in April 2022 with ejection fraction 40 to 45% with biatrial enlargement, moderate mitral regurgitation, pulmonary artery pressure 45 to 50 mmHg. - Echo of 10-11-[address] Hernandez showed LVEF 35-40%. Mod sized L pleural effusion. Mild MR. Mild to mod TR. - Echo on 10-26-22: LVEF 50-55%, mod biatrial enlargement, mod pleural eff Persistent/permanent atrial fibrillation/flutter - History of ablation done in [place] in late 2020, previously refusing any further ablation - Had previously been on Eliquis but had had compliance issues - Lately on Xarelto for stroke prophylaxis - currently on Lovenox d/t scheduled thoracentesis today (01-18-23) Nonischemic cardiomyopathy - cardiac catheterization done in [place] around 2019 did not show any obstructive disease. History of methamphetamine abuse. - Had still using it intermittently, he was found to have methamphetamine in his pocket during recent hospitalization - UDS negative this admission EtOH abuse. Acute renal failure - renal function improved Hyperlipidemia Tobaccoism History of noncompliance with medication or medical instruction History of elevated liver enzymes. - Probably underlying cirrhosis seen on CTA of the abdomen in the past. Plan: S/P thoracentesis on 01-18-23 - (2150 ml) Med svce is managing leucocytosis For acute on chronic systolic CHF - continue diuretics - change to oral today Stop Lovenox and change to Xarelto Monitor lab closely Replace electrolytes as indicated Further recs will be based on his hospital course ANN RHOADES Jan 19, 2023 08:29
[2023-01-19] MEDS: SENNOSIDES 8.6 MG (SENOKOT) TAB PO SCH ×2 (08:35→20:47)
[2023-01-19] MEDS: DOCUSATE SODIUM 100 MG (COLACE) CAP PO SCH ×2 (08:35→20:47)
--- NOTE | 2023-01-19 09:07 | Progress Note - Cardiology ---
Cardiology SOAP Progress Note Subjective: No palp or syncope Chronic chest discomfort and shortness of breath have improved after thoracentesis yesterday No n/v/d No focal weakness Some gen weakness Objective: I&O/Vital Signs 01/18/23 01/19/23 01/19/23 01/19/23 22:15 00:00 01:00 03:18 Temp 36.6 36.6 Pulse 93 90 95 Resp 17 20 B/P (MAP) 120/49 (72) 105/82 (90) Pulse Ox 93 93 90 O2 Delivery Nasal Cannula Nasal Cannula Nasal Cannula O2 Flow Rate 2.00 3.00 3.00 01/19/23 01/19/23 01/19/23 01/19/23 03:59 07:00 07:00 07:00 Temp 36.6 Pulse 90 90 86 Pulse Ox 94 94 O2 Delivery Nasal Cannula O2 Flow Rate 2.00 01/19/23 08:00 Temp 35.5 Pulse 87 Resp 11 B/P (MAP) 115/79 (91) Pulse Ox 96 O2 Delivery Nasal Cannula O2 Flow Rate 3.00 01/19/23 00:00 Intake Total 1660 ml Output Total 2725 ml Balance -1065 ml Constitutional: AAO x 3 Respiratory: No accessory muscle use, No respiratory distress; chest expansion is symmetric, chest is bilaterally symmetric, other (diminished lower lobes bilat) Cardiovascular: irregularly irregular; No JVD; S1 and S2 Gastrointestional: No tender; soft, audible bowel sounds Extremities: no lower extremity edema bilateral Neurologic/Psychiatric: grossly intact (moves all extremities) Skin: normal color, warm/dry; No rash on exposed areas, No ulcerations on exposed areas Results/Procedures: Labs Laboratory Tests 01/18/23 10:51: Glucometer 240H 01/18/23 13:30: Body Fluid Source PLEURAL, Body Fluid Color PALE YELLOW, Body Fluid Appearance SLT CLDY, Body Fluid WBC 0.424, Body Fluid RBC 0.003, Body Fl Polynuclear WBCs (%)(Auto) 6.6, Body Fluid Mononuclear Cells % Auto 93.4, Body Fluid Slide Review Yes, Body Fluid Glucose 218, Body Fluid Total Protein 3.5 01/18/23 16:49: Glucometer 256H 01/18/23 19:59: Glucometer 230H 01/19/23 03:58: White Blood Count 21.0H, Red Blood Count 4.97, Hemoglobin 12.9L, Hematocrit 42, Mean Corpuscular Volume 84, Mean Corpuscular Hemoglobin 26, Mean Corpuscular Hemoglobin Concent 31L, Red Cell Distribution Width 18.9H, Platelet Count 255, Mean Platelet Volume 11.3, Immature Granulocyte % (Auto) 1, Neutrophils (%) (Auto) 92H, Lymphocytes (%) (Auto) 1L, Monocytes (%) (Auto) 6, Eosinophils (%) (Auto) 0, Basophils (%) (Auto) 0, Neutrophils # (Auto) 19.4H, Lymphocytes # (Auto) 0.3L, Monocytes # (Auto) 1.2H, Eosinophils # (Auto) 0.0, Basophils # (Auto) 0.0, Immature Granulocyte # (Auto) 0.2H, Sodium Level 136, Potassium Level 4.5, Chloride Level 101, Carbon Dioxide Level 23, Anion Gap 12, Blood Urea Nitrogen 35H, Creatinine 0.89, Estimat Glomerular Filtration Rate 109, BUN/Creatinine Ratio 39, Glucose Level 194H, Calcium Level 9.5, Corrected Calcium 9.7, Total Bilirubin 1.1H, Aspartate Amino Transf (AST/SGOT) 19, Alanine Aminotransferase (ALT/SGPT) 24, Alkaline Phosphatase 184H, Total Protein 7.0, Albumin 3.7 Laboratory Tests 01/18/23 04:56 01/19/23 03:58 A/P: Assessment: Marked leucocytosis of undetermined etiology - being managed by the [facility] Acute on chronic systolic CHF - continue diuretics Shortness of breath, cough, bilateral pleural effusion worse on the right - undetermined etiology - s/p thoracentesis on 01-18-[address] Tadeo (2150ml) H/O non-sustained WCT on 10/21/22 and 10/22/22, - probably aberrance during A Fib with RVR - on amiodarone since 10/22/22. Heart rate is better controlled since and no recurrence of WCT H/O recent hospitalization with acute respiratory failure requiring intubation - extubated 10-16-22 - multi-factorial d/t pneumonia and acute on chronic systolic CHF Acute on chronic systolic congestive heart failure - Echo was done in April 2022 with ejection fraction 40 to 45% with biatrial enlargement, moderate mitral regurgitation, pulmonary artery pressure 45 to 50 mmHg. - Echo of 10-11-[address] Hernandez showed LVEF 35-40%. Mod sized L pleural effusion. Mild MR. Mild to mod TR. - Echo on 10-26-22: LVEF 50-55%, mod biatrial enlargement, mod pleural eff Persistent/permanent atrial fibrillation/flutter - History of ablation done in [place] in late 2020, previously refusing any further ablation - Had previously been on Eliquis but had had compliance issues - Lately on Xarelto for stroke prophylaxis - currently on Lovenox d/t scheduled thoracentesis today (01-18-23) Nonischemic cardiomyopathy - cardiac catheterization done in [place] around 2019 did not show any obstructive disease. History of methamphetamine abuse. - Had still using it intermittently, he was found to have methamphetamine in his pocket during recent hospitalization - UDS negative this admission EtOH abuse. Acute renal failure - resolved Hyperlipidemia Tobaccoism History of noncompliance with medication or medical instruction History of elevated liver enzymes. - Probably underlying cirrhosis seen on CTA of the abdomen in the past. Plan: S/P thoracentesis on 01-18-23 - (2150 ml) Med svce is managing leucocytosis For acute on chronic systolic CHF - continue diuretics - change to oral today Stop Lovenox and change to Xarelto Monitor lab closely Replace electrolytes as indicated Further recs will be based on his hospital course SAVI SILVA MD FACP FACC CCDS Jan 19, 2023 09:07
[2023-01-19] MEDS: FUROSEMIDE 40 MG (LASIX) TAB PO SCH (10:03)
[2023-01-19 12:00] VITALS: BP 116/82
--- NOTE | 2023-01-19 13:21 | Progress Note ---
Subjective Subjective/Events-last exam Patient states that he is feeling much better. Does not normally use oxygen at home and he would like to take it off and see how he feels. Tolerating PO diet and ambulation. Denies any fever or chills. Review of Systems General: No Chills, No Fatigue Pulmonary: Cough Cardiovascular: Chest Pain, Edema; No: Palpitations Gastrointestinal: No: Nausea, Vomiting, Abdominal Pain, Diarrhea, Constipation Musculoskeletal: back pain Focused Exam Time of Focused Exam: 07:25 Objective Exam Last Set of Vital Signs Vital Signs Date Time Temp Pulse Resp B/P (MAP) Pulse Ox O2 Delivery O2 Flow Rate FiO2 01/19/23 08:00 35.5 87 11 115/79 (91) 96 Nasal Cannula 3.00 01/16/23 09:27 21 Capillary Refill : Less Than 3 Seconds I&O Intake and Output 01/19/23 00:00 Intake Total 2410 ml Output Total 3725 ml Balance -1315 ml Intake Oral 2310 ml IV Total 100 ml Output Urine Total 3725 ml General: Alert, Oriented X3, No Acute Distress Lungs: Clear to Auscultation, Normal Air Movement Heart: Regular Rate, No Murmurs Abdomen: Normal Bowel Sounds, Soft, No Tenderness, No Masses Extremities: Other (1+ pitting edema equal bilaterally) Results/Procedures Lab Laboratory Tests 01/18/23 13:30: Body Fluid Source PLEURAL, Body Fluid Color PALE YELLOW, Body Fluid Appearance SLT CLDY, Body Fluid WBC 0.424, Body Fluid RBC 0.003, Body Fl Polynuclear WBCs (%)(Auto) 6.6, Body Fluid Mononuclear Cells % Auto 93.4, Body Fluid Slide Review Yes, Body Fluid Glucose 218, Body Fluid Total Protein 3.5 01/18/23 16:49: Glucometer 256H 01/18/23 19:59: Glucometer 230H 01/19/23 03:58: White Blood Count 21.0H, Red Blood Count 4.97, Hemoglobin 12.9L, Hematocrit 42, Mean Corpuscular Volume 84, Mean Corpuscular Hemoglobin 26, Mean Corpuscular Hemoglobin Concent 31L, Red Cell Distribution Width 18.9H, Platelet Count 255, Mean Platelet Volume 11.3, Immature Granulocyte % (Auto) 1, Neutrophils (%) (Auto) 92H, Lymphocytes (%) (Auto) 1L, Monocytes (%) (Auto) 6, Eosinophils (%) (Auto) 0, Basophils (%) (Auto) 0, Neutrophils # (Auto) 19.4H, Lymphocytes # ( Auto) 0.3L, Monocytes # (Auto) 1.2H, Eosinophils # (Auto) 0.0, Basophils # (Auto) 0.0, Immature Granulocyte # (Auto) 0.2H, Sodium Level 136, Potassium Level 4.5, Chloride Level 101, Carbon Dioxide Level 23, Anion Gap 12, Blood Urea Nitrogen 35H, Creatinine 0.89, Estimat Glomerular Filtration Rate 109, BUN/Crea tinine Ratio 39, Glucose Level 194H, Calcium Level 9.5, Corrected Calcium 9.7, Total Bilirubin 1.1H, Aspartate Amino Transf (AST/SGOT) 19, Alanine Aminotransferase (ALT/SGPT) 24, Alkaline Phosphatase 184H, Total Protein 7.0, Albumin 3.7 Microbiology 01/18/23 Gram Stain - Final, Resulted 01/18/23 Anaerobic Culture, Resulted Pending 01/18/23 Body Fluid Culture, Resulted Pending Assessment/Plan Assessment/Plan (1) Acute respiratory failure Status: Acute Assessment & Plan: 01/17 Improved, on 2LPM NC, will continue to titrate as tolerated 01/18: improving, plan to do thoracentesis today 01/19: Titrating oxygen as tolerating, patient took O2 off while I was in the room, nurse notified to check in 30 mins Qualifiers: Qualified Codes: J96.01 - Acute respiratory failure with hypoxia (2) Bilateral pleural effusion Status: Chronic Assessment & Plan: -01/17: US today, Dr Tadeo likely to do thorocentesis 01/18: Thorocentesis today, will send fluid for analysis 01/19: Patient feeling much better (3) Acute on chronic HFrEF (heart failure with reduced ejection fraction) Status: Acute Assessment & Plan: -01/17: cardiology consulted, appreciate recommendations (4) Atrial fibrillation with RVR Status: Resolved Assessment & Plan: -01/17: Rate controlled, OAC (5) Leukocytosis Status: Acute Assessment & Plan: 01/19: Patient was on steroids, no signs of acute infection, will continue to trend, steroids d/c yesterday Qualifiers: Qualified Codes: D72.829 - Elevated white blood cell count, unspecified (6) COPD exacerbation Status: Acute (7) H/O: substance abuse Status: Chronic Assessment & Plan: - UDS this admission Neg 01/18: Living at [facility], doing well staying clean Clinical Quality Measures DVT/VTE Risk/Contraindication: Contraindications-Pharm: Other *list below* Other: hemoptysis JACOBY LINK MD Jan 19, 2023 13:21
[2023-01-19 15:33] VITALS: BP 123/78
[2023-01-19] MEDS: HYDROmorphone 2 MG/ML VIAL (DILAUDID) IV PRN (16:58)
[2023-01-19] MEDS: RIVAROXABAN 20 MG TABLET (XARELTO) PO SCH (16:59)
[2023-01-19] MEDS: MELATONIN 3 MG TABLET PO PRN (20:47)
[2023-01-20 03:12] VITALS: BP 109/68
[2023-01-20 04:00] VITALS: BP 101/73
[2023-01-20] MEDS: CEFEPIME INJECTION 1,000 MG in NS (IVPB) 50 ML IV SCH ×4 (04:00→20:48)
[2023-01-20] MEDS: HYDROmorphone 2 MG/ML VIAL (DILAUDID) IV PRN ×2 (04:07→19:26)
[2023-01-20 05:39] LABS: BASOPHILS % (AUTO) 0 % (0-10); EOSINOPHILS % (AUTO) 0 % (0-10); HEMATOCRIT 45 % (40-54); LYMPHOCYTES % (AUTO) 7 % (12-44); MEAN CORPUSCULAR HEMOGLOBIN 27 pg (25-34); MEAN CORPUSCULAR HGB CONC 31 g/dL (32-36); MEAN CORPUSCULAR VOLUME 85 fL (80-99); MEAN PLATELET VOLUME 11.3 fL (9.0-12.2); MONOCYTES # (AUTO) 1.1 10^3/uL (0.0-1.0); MONOCYTES % (AUTO) 8 % (0-12); NEUTROPHILS # (AUTO) 12.4 10^3/uL (1.8-7.8); NEUTROPHILS % (AUTO) 84 % (42-75); PLATELET COUNT 264 10^3/uL (130-400); WHITE BLOOD COUNT 14.8 10^3/uL (4.3-11.0)
[2023-01-20 05:56] LABS: ALBUMIN 3.8 GM/DL (3.2-4.5); CALCIUM 9.5 MG/DL (8.5-10.1); CREATININE SERUM 0.93 MG/DL (0.60-1.30); POTASSIUM 4.2 MMOL/L (3.6-5.0); TOTAL PROTEIN 7.2 GM/DL (6.4-8.2)
[2023-01-20] MEDS: inSUlin ASPART (NovoLOG) 1 UNIT/0.01 ML (CHARGE PER UNIT) SC SCH ×2 (06:27→10:55)
[2023-01-20] MEDS: ALPRAZolam 0.25 MG (XANAX) TAB PO PRN ×3 (06:36→22:15)
[2023-01-20] MEDS: KCL 20 MEQ TAB (K-DUR) PO SCH (06:36)
[2023-01-20 08:00] VITALS: BP 122/98
[2023-01-20] MEDS: FUROSEMIDE 40 MG (LASIX) TAB PO SCH (09:18)
[2023-01-20] MEDS: DOCUSATE SODIUM 100 MG (COLACE) CAP PO SCH ×2 (09:18→20:48)
--- NOTE | 2023-01-20 09:18 | Progress Note - Cardiology ---
Cardiology SOAP Progress Note Subjective: Lying in bed No c/o CP at this time Feels SOB has improved No c/o n/v/d Objective: I&O/Vital Signs 01/20/23 01/21/23 01/21/23 01/21/23 21:49 00:00 01:00 04:00 Temp 35.8 36.4 Pulse 97 B/P (MAP) O2 Delivery Nasal Cannula Nasal Cannula Nasal Cannula O2 Flow Rate 0.50 1.00 1.00 01/21/23 01/21/23 01/21/23 01/21/23 07:00 07:32 08:00 08:00 Temp 36.0 Pulse 80 86 Resp 14 B/P (MAP) 128/92 (104) Pulse Ox 92 95 92 O2 Delivery Room Air Nasal Cannula Nasal Cannula O2 Flow Rate 1.00 1.00 01/21/23 00:00 Intake Total 2420 ml Output Total 2350 ml Balance 70 ml Constitutional: AAO x 3 Respiratory: No accessory muscle use, No respiratory distress; chest expansion is symmetric, chest is bilaterally symmetric, other (diminished lower lobes bilat) Cardiovascular: irregularly irregular; No JVD; S1 and S2 Gastrointestional: No tender; soft, audible bowel sounds Extremities: no lower extremity edema bilateral Neurologic/Psychiatric: grossly intact (moves all extremities) Skin: normal color, warm/dry; No rash on exposed areas, No ulcerations on exposed areas Results/Procedures: Labs Laboratory Tests 01/21/23 05:07: White Blood Count 12.1H, Red Blood Count 5.42, Hemoglobin 14.0, Hematocrit 46, Mean Corpuscular Volume 85, Mean Corpuscular Hemoglobin 26, Mean Corpuscular Hemoglobin Concent 31L, Red Cell Distribution Width 19.6H, Platelet Count 247, Mean Platelet Volume 10.5, Immature Granulocyte % (Auto) 1, Neutrophils (%) (Auto) 79H, Lymphocytes (%) (Auto) 10L, Monocytes (%) (Auto) 8, Eosinophils (%) (Auto) 2, Basophils (%) (Auto) 0, Neutrophils # (Auto) 9.6H, Lymphocytes # (Au to) 1.2, Monocytes # (Auto) 0.9, Eosinophils # (Auto) 0.3, Basophils # (Auto) 0.0, Immature Granulocyte # (Auto) 0.1, Sodium Level 139, Potassium Level 4.0, Chloride Level 99, Carbon Dioxide Level 30, Anion Gap 10, Blood Urea Nitrogen 30H, Creatinine 0.86, Estimat Glomerular Filtration Rate 110, BUN/Creatinine Ratio 35, Glucose Level 109H, Calcium Level 9.3, Corrected Calcium 9.7, Total Bilirubin 1.2H, Aspartate Amino Transf (AST/SGOT) 44H, Alanine Aminotransferase (ALT/SGPT) 51, Alkaline Phosphatase 246H, Total Protein 6.8, Albumin 3.5 Microbiology 01/18/23 Gram Stain - Final, Resulted 01/18/23 Anaerobic Culture - Preliminary, Resulted No anaerobes isolated 01/18/23 Body Fluid Culture - Preliminary, Resulted No growth A/P: Assessment: Leucocytosis of undetermined etiology - being managed by the Med sve Acute on chronic systolic CHF - continue diuretics Shortness of breath, cough, bilateral pleural effusion worse on the right - undetermined etiology - s/p thoracentesis on 01-18-[address] Tadeo (2150ml) H/O non-sustained WCT on 10/21/22 and 10/22/22, - probably aberrance during A Fib with RVR - previously on amiodarone since 10/22/22 - currently not taking H/O recent hospitalization with acute respiratory failure requiring intubation - extubated 10-16-22 - multi-factorial d/t pneumonia and acute on chronic systolic CHF Acute on chronic systolic congestive heart failure - Echo was done in April 2022 with ejection fraction 40 to 45% with biatrial enlargement, moderate mitral regurgitation, pulmonary artery pressure 45 to 50 mmHg. - Echo of 10-11-[address] Hernandez showed LVEF 35-40%. Mod sized L pleural effusion. Mild MR. Mild to mod TR. - Echo on 10-26-22: LVEF 50-55%, mod biatrial enlargement, mod pleural eff Persistent/permanent atrial fibrillation/flutter - History of ablation done in [place] in late 2020, previously refusing any f urther ablation - Had previously been on Eliquis but had had compliance issues - Lately on Xarelto for stroke prophylaxis Nonischemic cardiomyopathy - cardiac catheterization done in [place] around 2019 did not show any obstructive disease. History of methamphetamine abuse. - Had still using it intermittently, he was found to have methamphetamine in his pocket during recent hospitalization - UDS negative this admission EtOH abuse. Acute renal failure - resolved Hyperlipidemia Tobaccoism History of noncompliance with medication or medical instruction History of elevated liver enzymes. - Probably underlying cirrhosis seen on CTA of the abdomen in the past. Plan: S/P thoracentesis on 01-18-23 - (2150 ml) Med svce is managing leucocytosis For chronic systolic CHF - continue diuretics Continue Xarelto Monitor lab closely Replace electrolytes as indicated Further recs will be based on his hospital course ANN RHOADES Jan 20, 2023 09:18
[2023-01-20] MEDS: SENNOSIDES 8.6 MG (SENOKOT) TAB PO SCH ×2 (09:19→20:48)
[2023-01-20] MEDS ORDERED: FURO40TA4 PO (09:20)
[2023-01-20] MEDS ORDERED: RIVA20TA2 PO (09:20)
[2023-01-20] MEDS: RT-BUDESONIDE NEBS 0.5 MG/2ML (PULMICORT) AMP INH SCH ×2 (09:55→21:49)
[2023-01-20] MEDS: RT-ALBUTEROL/IPRATROPIUM 3 ML (DUONEB) VIAL INH SCH ×2 (09:55→21:51)
[2023-01-20 11:59] VITALS: BP 120/89
--- NOTE | 2023-01-20 14:26 | Progress Note ---
Subjective Subjective/Events-last exam Patient states that he is feeling better but would like to plan on leaving tomorrow. Tolerating PO diet and ambulation. Review of Systems General: Fatigue Pulmonary: Cough Cardiovascular: Edema; No: Chest Pain, Palpitations Gastrointestinal: No: Nausea, Vomiting, Abdominal Pain, Diarrhea, Constipation Neurological: Weakness Focused Exam Time of Focused Exam: 07:25 Objective Exam Last Set of Vital Signs Vital Signs Date Time Temp Pulse Resp B/P (MAP) Pulse Ox O2 Delivery O2 Flow Rate FiO2 01/20/23 13:00 92 01/20/23 11:59 36.0 20 120/89 (99) 92 Room Air 01/20/23 09:56 3.00 01/16/23 09:27 21 Capillary Refill : Less Than 3 Seconds I&O Intake and Output 01/20/23 00:00 Intake Total 3524 ml Output Total 3800 ml Balance -276 ml Intake Oral 3474 ml IV Total 50 ml Output Urine Total 3800 ml General: Alert, Oriented X3, No Acute Distress Lungs: Normal Air Movement, Other (end exp wheezing at the bases) Heart: Regular Rate, No Murmurs Abdomen: Normal Bowel Sounds, Soft, No Tenderness, No Masses Extremities: Other (1+ pitting edema) Neuro: Normal Speech Psych/Mental Status: Mental Status NL, Mood NL Results/Procedures Lab Laboratory Tests 01/19/23 18:03: Glucometer 171H 01/19/23 20:46: Glucometer 161H 01/20/23 04:43: White Blood Count 14.8H, Red Blood Count 5.29, Hemoglobin 14.0, Hematocrit 45, Mean Corpuscular Volume 85, Mean Corpuscular Hemoglobin 27, Mean Corpuscular Hemoglobin Concent 31L, Red Cell Distribution Width 19.3H, Platelet Count 264, Mean Platelet Volume 11.3, Immature Granulocyte % (Auto) 1, Neutrophils (%) (Auto) 84H, Lymphocytes (%) (Auto) 7L, Monocytes (%) (Auto) 8, Eosinophils (%) (Auto) 0, Basophils (%) (Auto) 0, Neutrophils # (Auto) 12.4H, Lymphocytes # (Auto) 1.0, Monocytes # (Auto) 1.1H, Eosinophils # (Auto) 0.0, Basophils # (Auto) 0.0, Immature Granulocyte # (Auto) 0.2H, Sodium Level 138, Potassium Level 4.2, Chloride Level 100, Carbon Dioxide Level 27, Anion Gap 11, Blood Urea Nitrogen 33H, Creatinine 0.93, Estimat Glomerular Filtration Rate 104, BUN/Creatinine Ratio 35, Glucose Level 122H, Calcium Level 9.5, Corrected Calcium 9.7, Magnesium Level 2.0, Total Bilirubin 1.0, Aspartate Amino Transf (AST/SGOT) 26, Alanine Aminotransferase (ALT/SGPT) 31, Alkaline Phosphatase 197H , Total Protein 7.2, Albumin 3.8 Microbiology 01/18/23 Gram Stain - Final, Resulted 01/18/23 Anaerobic Culture, Resulted Pending 01/18/23 Body Fluid Culture - Preliminary, Resulted No growth Assessment/Plan Assessment/Plan (1) Acute respiratory failure Status: Acute Assessment & Plan: 01/17 Improved, on 2LPM NC, will continue to titrate as tolerated 01/18: improving, plan to do thoracentesis today 01/19: Titrating oxygen as tolerating, patient took O2 off while I was in the room, nurse notified to check in 30 mins 01/20: doing well on RA, will continue to monitor Qualifiers: Qualified Codes: J96.01 - Acute respiratory failure with hypoxia (2) Bilateral pleural effusion Status: Chronic Assessment & Plan: -01/17: US today, Dr Tadeo likely to do thorocentesis 01/18: Thorocentesis today, will send fluid for analysis 01/19: Patient feeling much better (3) Acute on chronic HFrEF (heart failure with reduced ejection fraction) Status: Acute Assessment & Plan: -01/17: cardiology consulted, appreciate recommendations (4) Atrial fibrillation with RVR Status: Resolved Assessment & Plan: -01/17: Rate controlled, OAC (5) Leukocytosis Status: Acute Assessment & Plan: 01/19: Patient was on steroids, no signs of acute infection, will continue to trend, steroids d/c yesterday 01/20: Trending down Qualifiers: Qualified Codes: D72.829 - Elevated white blood cell count, unspecified (6) COPD exacerbation Status: Acute (7) H/O: substance abuse Status: Chronic Assessment & Plan: - UDS this admission Neg 01/18: Living at [facility], doing well staying clean Clinical Quality Measures DVT/VTE Risk/Contraindication: Contraindications-Pharm: Other *list below* Other: hemoptysis JACOBY LINK MD Jan 20, 2023 14:26
[2023-01-20 16:00] VITALS: BP 124/93
[2023-01-20] MEDS: RIVAROXABAN 20 MG TABLET (XARELTO) PO SCH (16:49)
[2023-01-21] MEDS: CEFEPIME INJECTION 1,000 MG in NS (IVPB) 50 ML IV SCH (04:07)
[2023-01-21 05:26] LABS: BASOPHILS % (AUTO) 0 % (0-10); EOSINOPHILS # (AUTO) 0.3 10^3/uL (0.0-0.3); EOSINOPHILS % (AUTO) 2 % (0-10); HEMATOCRIT 46 % (40-54); LYMPHOCYTES # (AUTO) 1.2 10^3/uL (1.0-4.0); LYMPHOCYTES % (AUTO) 10 % (12-44); MEAN CORPUSCULAR HEMOGLOBIN 26 pg (25-34); MEAN CORPUSCULAR HGB CONC 31 g/dL (32-36); MEAN CORPUSCULAR VOLUME 85 fL (80-99); MEAN PLATELET VOLUME 10.5 fL (9.0-12.2); MONOCYTES # (AUTO) 0.9 10^3/uL (0.0-1.0); MONOCYTES % (AUTO) 8 % (0-12); NEUTROPHILS # (AUTO) 9.6 10^3/uL (1.8-7.8); NEUTROPHILS % (AUTO) 79 % (42-75); PLATELET COUNT 247 10^3/uL (130-400); WHITE BLOOD COUNT 12.1 10^3/uL (4.3-11.0)
[2023-01-21] MEDS: KCL 20 MEQ TAB (K-DUR) PO SCH (05:46)
[2023-01-21 05:52] LABS: ALBUMIN 3.5 GM/DL (3.2-4.5); BILIRUBIN,TOTAL 1.2 MG/DL (0.1-1.0); CALCIUM 9.3 MG/DL (8.5-10.1); CREATININE SERUM 0.86 MG/DL (0.60-1.30); TOTAL PROTEIN 6.8 GM/DL (6.4-8.2)
[2023-01-21] MEDS: RT-ALBUTEROL/IPRATROPIUM 3 ML (DUONEB) VIAL INH SCH ×2 (07:32→15:14)
[2023-01-21] MEDS: RT-BUDESONIDE NEBS 0.5 MG/2ML (PULMICORT) AMP INH SCH (07:32)
[2023-01-21 08:00] VITALS: BP 128/92
[2023-01-21] MEDS: HYDROmorphone 2 MG/ML VIAL (DILAUDID) IV PRN (08:04)
[2023-01-21] MEDS: SENNOSIDES 8.6 MG (SENOKOT) TAB PO SCH (08:05)
[2023-01-21] MEDS: FUROSEMIDE 40 MG (LASIX) TAB PO SCH (08:05)
[2023-01-21] MEDS: DOCUSATE SODIUM 100 MG (COLACE) CAP PO SCH (08:05)
--- NOTE | 2023-01-21 08:49 | Progress Note - Cardiology ---
Cardiology SOAP Progress Note Subjective: Lying in bed Chest pain has nearly resolved SOB continues to improve No c/o palpitations, syncope or near syncope Objective: I&O/Vital Signs 01/21/23 01/21/23 01/21/23 01/21/23 04:00 07:00 07:32 08:00 Temp 36.4 Pulse 80 B/P (MAP) Pulse Ox 92 95 O2 Delivery Nasal Cannula Room Air Nasal Cannula O2 Flow Rate 1.00 1.00 01/21/23 01/21/23 08:00 12:00 Temp 36.0 36.8 Pulse 86 90 Resp 14 22 B/P (MAP) 128/92 (104) 130/75 (93) Pulse Ox 92 92 O2 Delivery Nasal Cannula Room Air O2 Flow Rate 1.00 01/21/23 00:00 Intake Total 2420 ml Output Total 2350 ml Balance 70 ml Constitutional: AAO x 3 Respiratory: No accessory muscle use, No respiratory distress; chest expansion is symmetric, chest is bilaterally symmetric, other (diminished lower lobes bilat) Cardiovascular: irregularly irregular; No JVD; S1 and S2 Gastrointestional: No tender; soft, audible bowel sounds Extremities: no lower extremity edema bilateral Neurologic/Psychiatric: grossly intact (moves all extremities) Skin: normal color, warm/dry; No rash on exposed areas, No ulcerations on exposed areas Results/Procedures: Labs Laboratory Tests 01/21/23 05:07: White Blood Count 12.1H, Red Blood Count 5.42, Hemoglobin 14.0, Hematocrit 46, Mean Corpuscular Volume 85, Mean Corpuscular Hemoglobin 26, Mean Corpuscular H emoglobin Concent 31L, Red Cell Distribution Width 19.6H, Platelet Count 247, Mean Platelet Volume 10.5, Immature Granulocyte % (Auto) 1, Neutrophils (%) (Auto) 79H, Lymphocytes (%) (Auto) 10L, Monocytes (%) (Auto) 8, Eosinophils (%) (Auto) 2, Basophils (%) (Auto) 0, Neutrophils # (Auto) 9.6H, Lymphocytes # (Auto) 1.2, Monocytes # (Auto) 0.9, Eosinophils # (Auto) 0.3, Basophils # (Auto) 0.0, Immature Granulocyte # (Auto) 0.1, Sodium Level 139, Potassium Level 4.0, Chloride Level 99, Carbon Dioxide Level 30, Anion Gap 10, Blood Urea Nitrogen 30H, Creatinine 0.86, Estimat Glomerular Filtration Rate 110, BUN/Creatinine Ratio 35, Glucose Level 109H, Calcium Level 9.3, Corrected Calcium 9.7, Total Bilirubin 1.2H, Aspartate Amino Transf (AST/SGOT) 44H, Alanine Aminotransferase (ALT/SGPT) 51, Alkaline Phosphatase 246H, Total Protein 6.8, Albumin 3.5 Microbiology 01/18/23 Gram Stain - Final, Resulted 01/18/23 Anaerobic Culture - Preliminary, Resulted No anaerobes isolated 01/18/23 Body Fluid Culture - Preliminary, Resulted No growth A/P: Assessment: Leucocytosis of undetermined etiology - improving - being managed by the [facility] sve Acute on chronic systolic CHF - continue diuretics - clinically improving Shortness of breath, cough, bilateral pleural effusion worse on the right - undetermined etiology - s/p thoracentesis on 01-18-[address] Tadeo (2150ml) H/O non-sustained WCT on 10/21/22 and 10/22/22, - probably aberrance during A Fib with RVR - previously on amiodarone since 10/22/22 - currently not taking H/O recent hospitalization with acute respiratory failure requiring intubation - extubated 10-16-22 - multi-factorial d/t pneumonia and acute on chronic systolic CHF Acute on chronic systolic congestive heart failure - Echo was done in April 2022 with ejection fraction 40 to 45% with biatrial enlargement, moderate mitral regurgitation, pulmonary artery pressure 45 to 50 mmHg. - Echo of 10-11-[address] Hernandez showed LVEF 35-40%. Mod sized L pleural effusion. Mild MR. Mild to mod TR. - Echo on 10-26-22: LVEF 50-55%, mod biatrial enlargement, mod pleural eff Persistent/permanent atrial fibrillation/flutter - History of ablation done in [place] in late 2020, previously refusing any further ablation - Had previously been on Eliquis but had had compliance issues - Lately on Xarelto for stroke prophylaxis Nonischemic cardiomyopathy - cardiac catheterization done in [place] around 2019 did not show any obstructive disease. History of methamphetamine abuse. - Had still using it intermittently, he was found to have methamphetamine in his pocket during recent hospitalization - UDS negative this admission EtOH abuse. Acute renal failure - resolved Hyperlipidemia Tobaccoism History of noncompliance with medication or medical instruction History of elevated liver enzymes. - Probably underlying cirrhosis seen on CTA of the abdomen in the past. Plan: Med svce is managing leucocytosis For chronic systolic CHF - continue diuretics - clinically improved Continue Xarelto Monitor lab closely Ok to discharge home from cardiac stand point Continue current medication regimen Advise f/u appt in 7-10 days ANN RHOADES [facility] Jan 21, 2023 08:49
--- NOTE | 2023-01-21 10:00 | Progress Note - Cardiology ---
Cardiology SOAP Progress Note Subjective: No cp or palp or syncope No shortness of breath at rest No n/v/d Gen malaise and weakness present, improving No focal weakness Objective: I&O/Vital Signs 01/21/23 01/21/23 01/21/23 01/21/23 00:00 01:00 04:00 07:00 Temp 35.8 36.4 Pulse 97 80 B/P (MAP) O2 Delivery Nasal Cannula Nasal Cannula O2 Flow Rate 1.00 1.00 01/21/23 01/21/23 01/21/23 07:32 08:00 08:00 Temp 36.0 Pulse 86 Resp 14 B/P (MAP) 128/92 (104) Pulse Ox 92 95 92 O2 Delivery Room Air Nasal Cannula Nasal Cannula O2 Flow Rate 1.00 1.00 01/21/23 00:00 Intake Total 2420 ml Output Total 2350 ml Balance 70 ml Constitutional: AAO x 3 Respiratory: No accessory muscle use, No respiratory distress; chest expansion is symmetric, chest is bilaterally symmetric, other (diminished lower lobes bilat) Cardiovascular: irregularly irregular; No JVD; S1 and S2 Gastrointestional: No tender; soft, audible bowel sounds Extremities: no lower extremity edema bilateral Neurologic/Psychiatric: other (moves all limbs equally) Skin: normal color, warm/dry; No rash on exposed areas, No ulcerations on exposed areas Results/Procedures: Labs Laboratory Tests 01/21/23 05:07: White Blood Count 12.1H, Red Blood Count 5.42, Hemoglobin 14.0, Hematocrit 46, Mean Corpuscular Volume 85, Mean Corpuscular Hemoglobin 26, Mean Corpuscular Hemoglobin Concent 31L, Red Cell Distribution Width 19.6H, Platelet Count 247, Mean Platelet Volume 10.5, Immature Granulocyte % (Auto) 1, Neutrophils (%) (Auto) 79H, Lymphocytes (%) (Auto) 10L, Monocytes (%) (Auto) 8, Eosinophils (%) (Auto) 2, Basophils (%) (Auto) 0, Neutrophils # (Auto) 9.6H, Lymphocytes # (Auto) 1.2, Monocytes # (Auto) 0.9, Eosinophils # (Auto) 0.3, Basophils # (Auto) 0.0, Immature Granulocyte # (Auto) 0.1, Sodium Level 139, Potassium Level 4.0, Chloride Level 99, Carbon Dioxide Level 30, Anion Gap 10, Blood Urea Nitrogen 30H, Creatinine 0.86, Estimat Glomerular Filtration Rate 110, BUN/Creatinine Ratio 35, Glucose Level 109H, Calcium Level 9.3, Corrected Calcium 9.7, Total Bilirubin 1.2H, Aspartate Amino Transf (AST/SGOT) 44H, Alanine Aminotransferase (ALT/SGPT) 51, Alkaline Phosphatase 246H, Total Protein 6.8, Albumin 3.5 Microbiology 01/18/23 Gram Stain - Final, Resulted 01/18/23 Anaerobic Culture - Preliminary, Resulted No anaerobes isolated 01/18/23 Body Fluid Culture - Preliminary, Resulted No growth Laboratory Tests 01/20/23 04:43 01/21/23 05:07 A/P: Assessment: Leucocytosis of undetermined etiology - improving - being managed by the [facility] Acute on chronic systolic CHF - continue diuretics - clinically improving Shortness of breath, cough, bilateral pleural effusion worse on the right - undetermined etiology - s/p thoracentesis on 01-18-[address] Tadeo (2150ml) H/O non-sustained WCT on 10/21/22 and 10/22/22, - probably aberrance during A Fib with RVR - previously on amiodarone since 10/22/22 - currently not taking Acute on chronic systolic congestive heart failure - Echo was done in April 2022 with ejection fraction 40 to 45% with biatrial enlargement, moderate mitral regurgitation, pulmonary artery pressure 45 to 50 mmHg. - Echo of 10-11-[address] Hernandez showed LVEF 35-40%. Mod sized L pleural effusion. Mild MR. Mild to mod TR. - Echo on 10-26-22: LVEF 50-55%, mod biatrial enlargement, mod pleural eff Persistent/permanent atrial fibrillation/flutter - History of ablation done in [place] in late 2020, previously refusing any further ablation - Had previously been on Eliquis but had had compliance issues - Lately on Xarelto for stroke prophylaxis Nonischemic cardiomyopathy - cardiac catheterization done in [place] around 2019 did not show any obstructive disease. History of methamphetamine abuse. - Had still using it intermittently, he was found to have methamphetamine in his pocket during recent hospitalization - UDS negative this admission EtOH abuse. Acute renal failure - resolved Hyperlipidemia Tobaccoism History of noncompliance with medication or medical instruction History of elevated liver enzymes. - Probably underlying cirrhosis seen on CTA of the abdomen in the past. Plan: Med svce is managing leucocytosis For chronic systolic CHF - continue diuretics - clinically improved Continue Xarelto Monitor lab closely Ok to discharge home from cardiac stand point Continue current medication regimen Advise f/u appt in 7-10 days SAVI SILVA MD FACP FAC [facility] Jan 21, 2023 10:00
--- NOTE | 2023-01-21 11:01 | Discharge Summary ---
Diagnosis/Chief Complaint Date of Admission Jan 16, 2023 at 08:48 Date of Discharge 01/21/23 Admission Diagnosis Admission Diagnosis See problem list Discharge Diagnosis See below Problems/Diagnosis: (1) Acute respiratory failure Assessment & Plan: 01/17 Improved, on 2LPM NC, will continue to titrate as tolerated 01/18: improving, plan to do thoracentesis today 01/19: Titrating oxygen as tolerating, patient took O2 off while I was in the room, nurse notified to check in 30 mins 01/20: doing well on RA, will continue to monitor Qualifiers: Qualified Codes: J96.01 - Acute respiratory failure with hypoxia Status: Acute (2) Bilateral pleural effusion Assessment & Plan: -01/17: US today, Dr Tadeo likely to do thorocentesis 01/18: Thorocentesis today, will send fluid for analysis 01/19: Patient feeling much better Status: Chronic (3) Acute on chronic HFrEF (heart failure with reduced ejection fraction) Assessment & Plan: -01/17: cardiology consulted, appreciate recommendations -01/21: Will have outpatient f.u with cardiology Status: Acute (4) Atrial fibrillation with RVR Assessment & Plan: -01/17: Rate controlled, OAC Status: Resolved Resolution Date/Time: 10/25/22 @ 14:47 (5) Leukocytosis Assessment & Plan: 01/19: Patient was on steroids, no signs of acute infection, will continue to trend, steroids d/c yesterday 01/20: Trending down Qualifiers: Qualified Codes: D72.829 - Elevated white blood cell count, unspecified Status: Acute (6) COPD exacerbation Status: Acute (7) H/O: substance abuse Assessment & Plan: - UDS this admission Neg 01/18: Living at [facility], doing well staying clean Status: Chronic Discharge Summary-Simple/Stand Consultations Dr Bejarano, Cardiology Discharge Physical Examination Allergies: Coded Allergies: hydrocodone (Verified Allergy, Severe, ITCHING, 08/05/22) Penicillins (Verified Allergy, Unknown, 11/09/20) Vitals & I&Os Vital Sign - Last 12Hours Date Time Temp Pulse Resp B/P (MAP) Pulse Ox O2 Delivery O2 Flow Rate FiO2 01/21/23 08:00 36.0 86 14 128/92 (104) 92 Nasal Cannula 1.00 01/16/23 09:27 21 Intake and Output 01/21/23 00:00 Intake Total 2420 ml Output Total 2350 ml Balance 70 ml General Appearance: Alert, Oriented X3, No Acute Distress HEENT: Mucous Memb Moist/[place] Respiratory: Clear to Auscultation, Normal Air Movement Cardiovascular: Regular Rate, No Murmurs Abdominal: Normal Bowel Sounds, Soft, No Tenderness, No Masses Extremities: Other (1+ pitting edema equal bilaterally) Neuro: Normal Speech, Strength at 5/5 X4 Ext Hospital Course See final discharge diagnosis. Discharge Condition at discharge Stable for d/c Instructions to patient/family Please see electronic discharge instructions given to patient. Discharge Medications Reviewed and agree with Discharge Medication list on patient's Discharge Instruction sheet Clinical Quality Measures DVT/VTE Risk/Contraindication: Contraindications-Pharm: Other *list below* Other: hemoptysis JACOBY LINK MD Jan 21, 2023 11:01
--- NOTE | 2023-01-21 11:02 | Discharge Summary ---
Discharge [facility] Reconcile Patient Problems Problems Reviewed?: Yes Discharge Medications New, Converted or Re-Newed RX: Transmitted to Pharmacy New Medications: Furosemide (Furosemide) 40 Mg Tablet 80 MG PO DAILY, #90 TAB 3 Refills Rivaroxaban (Xarelto Tablet) 20 Mg Tablet 20 MG PO DAILY@1700, #90 TAB 3 Refills Continued Medications: Diltiazem HCl (Diltiazem 24Hr ER) 180 Mg Cap.er.24h 180 MG PO HS Potassium Chloride (Klor-Con M20) 20 Meq Tab.er.prt 20 MEQ PO HS Trazodone HCl (Trazodone HCl) 50 Mg Tablet 50 MG PO HS Discontinued Medications: Cyclobenzaprine HCl (Cyclobenzaprine HCl) 10 Mg Tablet 10 MG PO HS Furosemide (Furosemide) 40 Mg Tablet 40 MG PO DAILY, TAB Gabapentin (Gabapentin) 600 Mg Tablet 600 MG PO BID, TAB Spironolactone (Spironolactone) 25 Mg Tablet 25 MG PO DAILY, TAB Patient Instructions Goal/Follow Up Appt: Damián PCP 1-2 weeks Activity & Diet Discharge Diet: Cardiac Diet Activity as Tolerated: Yes JACOBY LINK MD Jan 21, 2023 11:02
[2023-01-21 12:00] VITALS: BP 130/75
== END 2023-01-21 16:30 | disposition home or self-care (01) | DRG 189 ==
LOC: EDUNIT# 05:25 → ER 05:29 → ICU 08:48 → CSD 01-17 09:24
PROVIDERS: ADMIT Internal Medicine; ATTEND Family Medicine
PROC: 0W993ZZ Drainage of Right Pleural Cavity, Percutaneous Approach (ICD-10-PCS; principal; 2023-01-18)
DX: J96.01 Acute respiratory failure with hypoxia (principal); I50.23 Acute on chronic systolic (congestive) heart failure; I13.0 Hypertensive heart and chronic kidney disease with heart failure and stage 1 through stage 4 chronic kidney disease, or unspecified chronic kidney disease; J44.1 Chronic obstructive pulmonary disease with (acute) exacerbation; R04.2 Hemoptysis; J90 Pleural effusion, not elsewhere classified; I48.92 Unspecified atrial flutter; I48.21 Permanent atrial fibrillation; I42.8 Other cardiomyopathies; N18.9 Chronic kidney disease, unspecified; J20.9 Acute bronchitis, unspecified; E11.9 Type 2 diabetes mellitus without complications; Z79.01 Long term (current) use of anticoagulants; Z79.84 Long term (current) use of oral hypoglycemic drugs; Z79.899 Other long term (current) drug therapy; E78.00 Pure hypercholesterolemia, unspecified; K21.9 Gastro-esophageal reflux disease without esophagitis; E66.9 Obesity, unspecified; F17.210 Nicotine dependence, cigarettes, uncomplicated; F15.99 Other stimulant use, unspecified with unspecified stimulant-induced disorder; Z20.822 Contact with and (suspected) exposure to COVID-19; I48.91 Unspecified atrial fibrillation; I25.10 Atherosclerotic heart disease of native coronary artery without angina pectoris; Z91.148 Patient's other noncompliance with medication regimen for other reason; D72.829 Elevated white blood cell count, unspecified
CPT/HCPCS: 36415; 36600; 71045; 71275; 76604; 80053; 80306; 80320; 80329; 81000; 82550; 82553; 82805; 82945; 82947; 83735; 83880; 84157; 84484; 85007; 85025; 85027; 85610; 85730; 87070; 87075; 87205; 87636; 89051; 93005; 93041; 94640; 94761

== ENCOUNTER 2023-01-30 14:05 | Observation (INO) | payer OTHER ==
[~2023-01-30] VITALS: Ht 180 cm; Wt 97.5 kg
[~2023-01-30 14:05] MED LIST changes: +DILT180C85 PO; +PRD10T PO; +TRZ50T PO
[2023-01-30 14:34] LABS: BASOPHILS # (AUTO) 0.1 10^3/uL (0.0-0.1); BASOPHILS % (AUTO) 0 % (0-10); EOSINOPHILS # (AUTO) 0.2 10^3/uL (0.0-0.3); EOSINOPHILS % (AUTO) 1 % (0-10); HEMATOCRIT 44 % (40-54); HEMOGLOBIN 13.4 g/dL (13.3-17.7); LYMPHOCYTES # (AUTO) 1.2 10^3/uL (1.0-4.0); LYMPHOCYTES % (AUTO) 7 % (12-44); MEAN CORPUSCULAR HEMOGLOBIN 26 pg (25-34); MEAN CORPUSCULAR HGB CONC 31 g/dL (32-36); MEAN CORPUSCULAR VOLUME 85 fL (80-99); MEAN PLATELET VOLUME 11.2 fL (9.0-12.2); MONOCYTES # (AUTO) 1.3 10^3/uL (0.0-1.0); MONOCYTES % (AUTO) 8 % (0-12); NEUTROPHILS # (AUTO) 13.1 10^3/uL (1.8-7.8); NEUTROPHILS % (AUTO) 82 % (42-75); PLATELET COUNT 208 10^3/uL (130-400)
[2023-01-30 14:36] LABS: POTASSIUM 3.9 MMOL/L (3.6-5.0)
[2023-01-30 14:37] LABS: CALCIUM 9.5 MG/DL (8.5-10.1)
[2023-01-30 14:38] LABS: TOTAL PROTEIN 7.7 GM/DL (6.4-8.2)
[2023-01-30 14:40] LABS: BILIRUBIN,TOTAL 1.3 MG/DL (0.1-1.0)
[2023-01-30 14:42] LABS: CREATININE SERUM 0.84 MG/DL (0.60-1.30)
--- NOTE | 2023-01-30 14:50 | Diagnostic Imaging Report ---
CLINICAL INDICATION: Patient feels like flow returning the lungs. Patient was released from the hospital on 01/28/2023. Patient had approximately 2 L of fluid removed from right side along. Patient has frequent cough. EXAM: Chest x-ray PA and lateral views. COMPARISON: Portable chest x-ray dated 01/18/2023. FINDINGS: There is interval development of a small right pleural effusion. There is also a minimal sized left pleural effusion. There is mild bibasilar atelectasis. Pulmonary vasculature and cardiac silhouette are within normal limits. Stable fracture deformity involving the lateral posterior aspect of the T8 rib. There are degenerative spurs involving the thoracic spine. IMPRESSION: 1: There are small bilateral pleural effusions (right side more than the left), which have developed in the interim. 2: Suspected mild bibasilar atelectasis. Dictated by: Dictated on workstation # [id number]
[2023-01-30 15:07] LABS: ANISOCYTOSIS MODERATE; BAND NEUTROPHILS 0 %; BASOPHILS % (MANUAL) 0 %; EOSINOPHILS % (MANUAL) 2 %; LYMPHOCYTES % (MANUAL) 10 %; MONOCYTES % (MANUAL) 3 %; NEUTROPHILS % (MANUAL) 85 %; POLYCHROMASIA SLIGHT
--- NOTE | 2023-01-30 15:51 | ED Respiratory ---
General Chief Complaint: Respiratory Problems Stated Complaint: SOA Nursing Triage Note: PT AMB TO RM 7 PT STATES IS SOA, PT STATES FEELS LIKE FLUID RETURNING TO LUNGS. PT STATES WAS RELEASED FROM HOSP ON 01/28/23. PT STATES HAD APPROX 2L FLUID REMOVED FROM R SIDE OF LUNG BY DR WATSON. PT DENIES PAIN AT THIS X. PT HAS FREQUENT COUGH. (LAURA ADAMES) History of Present Illness Date Seen by Provider: Jan 30, 2023 Time Seen by Provider: 14:15 Initial Comments 42 year old male referred here from [facility] for weight gain and SOA. History of resp distress, meth abuse, and CHF. Denies Chest pain, mild SOA and cough but not worse than normal. He is on Xarelto for A-fib does not take aspirin daily. Reports he is taking all medications as prescribed and quit smoking cigarettes yesterday. Denies drug use. Was admitted inpatient at this facility from 01/17/20 to 01/21/2023. He had a thoracentesis by Dr. Watson on 01/18/2023 with removal of 2150 mL of fluid. Per last admission, weight 103-104 kg, today 102 kg. He is taking Lasix 80 mg daily and reports good diuresis. Last Echo 10/26/2022: EF 50-55%, in 2020 EF 30-35% He is working at [employer]. Timing/Duration: this morning Severity: mild Prior Episodes/Possible Cause: frequent episodes Associated Symptoms: No chest pain/soreness; cough (chronic) (LAURA ADAMES) Allergies and Home Medications Allergies Coded Allergies: hydrocodone (Verified Allergy, Severe, ITCHING, 08/05/22) spironolactone (Verified Allergy, Mild, 01/30/23) breast tendernes/swelling Penicillins (Verified Allergy, Unknown, 11/09/20) Patient Home Medication List Home Medication List Reviewed: Yes (LAURA ADAMES) Diltiazem HCl (Diltiazem 24Hr ER) 180 Mg Cap.er.24h, 180 MG PO HS, (Reported) Entered as Reported by: JACQUELINE TOBIAS on 01/17/23 1358 Last Action: Held Furosemide (Furosemide) 80 Mg Tablet, 80 MG PO DAILY, (Reported) Entered as Reported by: KLAUDIA OTTO on 01/31/23 1039 Last Action: Held Potassium Chloride (Klor-Con M20) 20 Meq Tab.er.prt, 20 MEQ PO HS, (Reported) Entered as Reported by: JACQUELINE TOBIAS on 01/17/23 135 Last Action: Held Rivaroxaban (Xarelto) 20 Mg Tablet, 20 MG PO HS, (Reported) Entered as Reported by: KLAUDIA OTTO on 01/31/23 1039 Last Action: Reviewed Trazodone HCl (Trazodone HCl) 50 Mg Tablet, 50 MG PO HS, (Reported) Entered as Reported by: JACQUELINE TOBIAS on 01/17/23 135 Last Action: Reviewed Discontinued Medications Furosemide (Furosemide) 40 Mg Tablet, 80 MG PO DAILY Discontinued Reason: Duplicate Order Prescribed by: ANN RHOADES on 01/20/23919 Last Action: Discontinued Rivaroxaban (Xarelto Tablet) 20 Mg Tablet, 20 MG PO DAILY@1700 Discontinued Reason: Duplicate Order Prescribed by: ANN RHOADES on 01/20/23919 Last Action: Discontinued Review of Systems Review of Systems Constitutional: no symptoms reported, see HPI Respiratory: see HPI, cough (chronic); No hemoptysis Cardiovascular: no symptoms reported, see HPI Gastrointestinal: no symptoms reported, see HPI (LAURA ADAMES) All Other Systems Reviewed Negative Unless Noted: Yes (LAURA ADAMES) Past Vxqbpme-Kdkiux-Ncqbbs Hx Patient Social History Tobacco Use?: Yes Tobacco type used: Cigarettes Smoking Status: Current Everyday Smoker Substance use?: No Additional substance use comme: NOT RECENTLY SINCE RELAPSE IN OCTOBER Alcohol Use?: No Pt feels they are or have been: No (LAURA ADAMES) Immunizations Up To Date Tetanus Booster (TDap): Unknown Influenza Vaccine Up-to-Date: No; Not Current First/Initial COVID19 Vaccinat: N/A Second COVID19 Vaccination [place]: N/A Third COVID19 Vaccination Date: N/A (LAURA ADAMES) Past Medical History Surgery/Hospitalization HX: A-FIB, HF, AFLUTTER Surgeries: Yes (HERNIA REPAIR) Abdominal, Appendectomy Respiratory: No Cardiac: Yes (CHF 30-35% EF) Atrial Fibrillation, Cardiomyopathy, High Cholesterol, Hypertension Neurological: No Genitourinary: No Gastrointestinal: Yes Gastroesophageal Reflux Musculoskeletal: No Endocrine: Yes (OBESITY, borderline diabetes) HEENT: No Cancer: No Psychosocial: Yes (SUBSTANCE ABUSE) Integumentary: Yes (TATTOOS) Blood Disorders: No (LAURA ADAMES) Family Medical History Reviewed Nursing Family Hx (LAURA ADAMES) Heart Disease, Diabetes SOCIAL HISTORY: -ETOH--REGULAR USE -DRUGS--METHAMPHETAMINES -SMOKES 1 PPD PAST SURGICAL HISTORY: -APPENDECTOMY -HERNIA REPAIR -CARDIOVERSIONS ECHOCARDIOGRAM 11/13/20--EF 30-35%, NO REGIONAL WALL MOTION ABNORMALITIES. EXTREME NON-COMPLIANCE IN ALL ASPECTS OF CARE (LAURA ADAMES) Physical Exam Vital Signs - First Documented 01/30/23 01/30/23 14:15 17:54 Temp 36.0 Pulse 74 Resp 20 B/P (MAP) 134/109 (117) Pulse Ox 96 O2 Delivery Room Air (SILVIA MACHADO MD) Capillary Refill : Less Than 3 Seconds (LAURA ADAMES) Height: '" Weight: lbs. oz. kg; 31.00 BMI Method: General Appearance: WD/WN, no apparent distress HEENT: PERRL/EOMI, normal ENT inspection Neck: non-tender, full range of motion, supple, normal inspection Respiratory: chest non-tender, lungs clear, normal breath sounds, no respiratory distress Cardiovascular: normal peripheral pulses, no edema, irregularly irregular Gastrointestinal: normal bowel sounds, non tender, soft Neurologic/Psychiatric: no motor/sensory deficits, alert, normal mood/affect, oriented x 3 Skin: normal color, warm/dry (LAURA ADAMES) Procedures/Interventions Date of ETT Placement: Oct 08, 2022 Time of ETT Placement: 1526 (LAURA ADAMES) Progress/Results/Core Measures Suspected Sepsis SIRS Temperature: Pulse: 74 Respiratory Rate: 20 Laboratory Tests 01/30/23 14:20: White Blood Count 16.0H Blood Pressure 134 /109 Mean: 117 Laboratory Tests 01/30/23 14:20: Creatinine 0.84, Platelet Count 208, Total Bilirubin 1.3H (LAURA ADAMES) Results/Orders Lab Results Laboratory Tests Test 01/30/23 14:20 01/30/23 17:19 Range/Units White Blood Count 16.0 H 4.3-11.0 10^3/uL Red Blood Count 5.12 4.30-5.52 10^6/uL Hemoglobin 13.4 13.3-17.7 g/dL Hematocrit 44 40-54 % Mean Corpuscular Volume 85 80-99 fL Mean Corpuscular Hemoglobin 26 25-34 pg Mean Corpuscular Hemoglobin Concent 31 L 32-36 g/dL Red Cell Distribution Width 20.5 H 10.0-14.5 % Platelet Count 208 130-400 10^3/uL Mean Platelet Volume 11.2 9.0-12.2 fL Immature Granulocyte % (Auto) 1 % Neutrophils (%) (Auto) 82 H 42-75 % Lymphocytes (%) (Auto) 7 L 12-44 % Monocytes (%) (Auto) 8 0-12 % Eosinophils (%) (Auto) 1 0-10 % Basophils (%) (Auto) 0 0-10 % Neutrophils # (Auto) 13.1 H 1.8-7.8 10^3/uL Lymphocytes # (Auto) 1.2 1.0-4.0 10^3/uL Monocytes # (Auto) 1.3 H 0.0-1.0 10^3/uL Eosinophils # (Auto) 0.2 0.0-0.3 10^3/uL Basophils # (Auto) 0.1 0.0-0.1 10^3/uL Immature Granulocyte # (Auto) 0.1 0.0-0.1 10^3/uL Neutrophils % (Manual) 85 % Lymphocytes % (Manual) 10 % Monocytes % (Manual) 3 % Eosinophils % (Manual) 2 % Basophils % (Manual) 0 % Band Neutrophils 0 % Polychromasia SLIGHT Anisocytosis MODERATE Sodium Level 141 135-145 MMOL/L Potassium Level 3.9 3.6-5.0 MMOL/L Chloride Level 103 98-107 MMOL/L Carbon Dioxide Level 25 21-32 MMOL/L Anion Gap 13 5-14 MMOL/L Blood Urea Nitrogen 17 7-18 MG/DL Creatinine 0.84 0.60-1.30 MG/DL Estimat Glomerular Filtration Rate 111 BUN/Creatinine Ratio 20 Glucose Level 106 H 70-105 MG/DL Calcium Level 9.5 8.5-10.1 MG/DL Corrected Calcium 9.5 8.5-10.1 MG/DL Total Bilirubin 1.3 H 0.1-1.0 MG/DL Aspartate Amino Transf (AST/SGOT) 23 5-34 U/L Alanine Aminotransferase (ALT/SGPT) 29 0-55 U/L Alkaline Phosphatase 257 H 40-136 U/L Troponin I 0.041 H <0.028 NG/ML C-Reactive Protein High Sensitivity 1.07 H 0.00-0.50 MG/DL B-Type Natriuretic Peptide 1056.5 H <100.0 PG/ML Total Protein 7.7 6.4-8.2 GM/DL Albumin 4.0 3.2-4.5 GM/DL Urine Color YELLOW Urine Clarity CLEAR Urine pH 6.0 5-9 Urine Specific [place] 1.010 L 1.016-1.022 Urine Protein NEGATIVE NEGATIVE Urine Glucose (UA) NEGATIVE NEGATIVE Urine Ketones NEGATIVE NEGATIVE Urine Nitrite NEGATIVE NEGATIVE Urine Bilirubin NEGATIVE NEGATIVE Urine Urobilinogen 0.2 < = 1.0 MG/DL Urine Leukocyte Esterase NEGATIVE NEGATIVE Urine RBC (Auto) NEGATIVE NEGATIVE Urine RBC NONE /HPF Urine WBC NONE /HPF Urine Squamous Epithelial Cells NONE /HPF Urine Crystals NONE /LPF Urine Bacteria NEGATIVE /HPF Urine Casts NONE /LPF Urine Mucus NEGATIVE /LPF Urine Culture Indicated NO Urine Opiates Screen NEGATIVE NEGATIVE Urine Oxycodone Screen NEGATIVE NEGATIVE Urine Methadone Screen NEGATIVE NEGATIVE Urine Propoxyphene Screen NEGATIVE NEGATIVE Urine Barbiturates Screen NEGATIVE NEGATIVE Ur Tricyclic Antidepressants Screen NEGATIVE NEGATIVE Urine Phencyclidine Screen NEGATIVE NEGATIVE Urine Amphetamines Screen NEGATIVE NEGATIVE Urine Methamphetamines Screen NEGATIVE NEGATIVE Urine Benzodiazepines Screen NEGATIVE NEGATIVE Urine Cocaine Screen NEGATIVE NEGATIVE Urine Cannabinoids Screen NEGATIVE NEGATIVE (SILVIA MACHADO MD) Vital Signs/I&O 01/30/23 01/30/23 14:15 17:54 Temp 36.0 36.0 Pulse 74 78 Resp 20 20 B/P (MAP) 134/109 (117) 117/89 Pulse Ox 96 96 O2 Delivery Room Air (SILVIA MACHADO MD) Vital Signs/I&O Capillary Refill : Less Than 3 Seconds (LAURA ADAMES) Blood Pressure Mean: 117 Progress Note : Time: 14:15 Progress Note patient assessed, will check labs and chest x-ray. Work up for exacerbation of CHF, pulmonary edema, or pneumonia. Known for significant cardiac history and multiple respiratory distress. 1445 with patient's history, will check troponin. 1500 BNP elevated 1056.5; WBC 16; H and H 13.4 & 44; CRP 1.07. Asprin 324 mg orally. 1600 Troponin 0.041. EKG shows no ST Elevation. Patient does report intermittent twinges of pain in left chest for the last 2-3 days. 1630 patient denies active chest pain at this time. Has urinated 3 times since admission to ED. Patient agreeable with plan to admit. [address] Parsons, agreeable with admission and cardiology consult. 1745 Patient taken to ICU via cart. [address] Russo, will see patient in ICU (LAURA ADAMES) ECG Initial ECG Impression Date: Jan 30, 2023 Initial ECG Impression Time: 17:06 Initial ECG Rate: 79 Initial ECG Rhythm: A Fib/Flutter Initial ECG Intervals QRST 115, QT 436, QTc 500. Jet QRS 102, T267 (LAURA ADAMES) Diagnostic Imaging Diagonstic Imaging: Xray Plain Films/CT/US/NM/MRI: chest (LAURA ADAMES) Departure Impression Primary Impression: CHF exacerbation Qualified Codes: I50.9 - Heart failure, unspecified Additional Impressions: Elevated troponin A-fib Qualified Codes: I48.91 - Unspecified atrial fibrillation History of substance abuse Disposition: ADMITTED INPATIENT Condition: Stable Admissions Decision to Admit/Date: Jan 30, 2023 Time/Decision to Admit Time: 16:55 (LAURA ADAMES) Departure-Patient Inst. Referrals: [facility] [place] (PCP/Family) Primary Care Physician ATTENDING PHYSICIAN NOTE: I was physically present as attending physician in the emergency department during the care of this patient, but I was not directly involved in the decision making or delivery of care for this patient. (SILVIA MACHADO MD) LAURA ADAMES Jan 30, 2023 15:50 SILVIA MACHADO MD Feb 01, 2023 07:13
[2023-01-30] MEDS ORDERED: ASPIRIN 81 MG CHEW (CHILDREN'S ASA) PO STA (17:21)
[2023-01-30 17:30] LABS: BILIRUBIN,URINE NEGATIVE (NEGATIVE); CLARITY,URINE CLEAR; COLOR,URINE YELLOW; GLUCOSE, URINE (UA) NEGATIVE (NEGATIVE); KETONES,URINE NEGATIVE (NEGATIVE); LEUKOCYTE ESTERASE ,URINE NEGATIVE (NEGATIVE); NITRITE,URINE NEGATIVE (NEGATIVE); PROTEIN,URINE NEGATIVE (NEGATIVE)
[2023-01-30 17:38] LABS: BACTERIA,URINE NEGATIVE /HPF
[2023-01-30 17:40] LABS: AMPHETAMINE SCREEN, URINE NEGATIVE (NEGATIVE); BARBITURATE SCREEN URINE NEGATIVE (NEGATIVE); BENZODIAZEPINES SCREEN URINE NEGATIVE (NEGATIVE); CANNABINOID SCREEN, URINE NEGATIVE (NEGATIVE); COCAINE SCREEN URINE NEGATIVE (NEGATIVE); METHADONE STAT NEGATIVE (NEGATIVE); OPIATE SCREEN URINE NEGATIVE (NEGATIVE); OXYCODONE STAT NEGATIVE (NEGATIVE); PROPOXYPHENE STAT NEGATIVE (NEGATIVE); TRICYCLIC ANTIDEPRESSANTS SCRE NEGATIVE (NEGATIVE)
[2023-01-30] MEDS ORDERED: diphenhydrAMINE 50 MG/ML INJ (BENADRYL) IVP PRN (18:00)
[2023-01-30] MEDS ORDERED: MILK OF MAGNESIA 400 MG/5 ML 30 ML UDC PO PRN (18:00)
[2023-01-30] MEDS ORDERED: morphine INJ 4 MG/ML 1 ML (VIAL/SYRINGE) IV PRN (18:00)
[2023-01-30] MEDS ORDERED: ANTACID SUSP 30 ML UDC (MYLANTA) PO PRN (18:00)
[2023-01-30] MEDS ORDERED: BISACODYL 10 MG SUPP (DULCOLAX) PR PRN (18:00)
[2023-01-30] MEDS ORDERED: CALCIUM CARBONATE 500 MG (TUMS) TAB.CHEW PO PRN (18:00)
[2023-01-30] MEDS ORDERED: ONDANSETRON 4 MG/2 ML (SDV) Z0FRAN IV PRN (18:00)
[2023-01-30] MEDS ORDERED: MELATONIN 3 MG TABLET PO PRN (18:00)
[2023-01-30] MEDS ORDERED: NS IV 500 ML 500 ML IV PRN (18:00)
[2023-01-30] MEDS ORDERED: polyethylene glycoL POWDER 17 GM (MIRALAX) PACK PO PRN (18:00)
[2023-01-30] MEDS ORDERED: LACTULOSE SYRUP 10GM/15ML (ENULOSE) 30ML UDC PO PRN (18:00)
[2023-01-30] MEDS ORDERED: diphenhydrAMINE 25 MG TAB (BENADRYL) PO PRN (18:00)
[2023-01-30] MEDS ORDERED: SPIRONOLACTONE 25 MG (ALDACTONE) TAB PO ONE (18:15)
[2023-01-30 18:40] VITALS: BP 112/89
[2023-01-30] MEDS: lisINopril 5 MG (PRINIVIL) TABLET PO SCH (18:41)
[2023-01-30] MEDS: FUROSEMIDE 40 MG/4 ML INJ (LASIX) IVP SCH (18:41)
--- NOTE | 2023-01-30 18:51 | Tele-ICU Progress Note ---
Subjective Date Seen by a Provider: Jan 30, 2023 Time Seen by a Provider: 18:53 Subjective/Events-last exam NO TELE-ICU CONSULT REQUESTED CONTINUE TO MONITOR PER USUAL TELE-ICU PROTOCOL No need for Tele-ICU interventions Plans as delineated by bedside physicians / consultants HPI: 42 y/o M hx of resp distress, meth abuse and CHF presented to ED with SOB and weight gain admitted for CHF exacerbation. HD stable. On Lasix at home and notes good diuresis. BNP on admission 1056. Leukocytosis to 16 but no obvious source of infection.CXR with bilateral pleural effusions. Admitted by hospitalist service for IV diuresis. Currently on RA. Cardiology consulted. Orders placed. A/p CHF exacerbation: Diuresis per cards Sepsis Event Evaluation Height, Weight, BMI Height: '" Weight: lbs. oz. kg; 31.48 BMI Method: Exam Exam Patient acknowledged, consented, and participated in this virtual visit which was conducted using real time audio/video Vital Signs Date Time Temp Pulse Resp B/P (MAP) Pulse Ox O2 Delivery O2 Flow Rate FiO2 01/30/23 18:40 36.0 75 95 21 01/30/23 18:28 95 Room Air 01/30/23 18:12 36.0 75 31 112/89 (97) 95 Room Air 01/30/23 18:10 82 01/30/23 17:54 36.0 78 20 117/89 96 Room Air 01/30/23 14:15 36.0 74 20 134/109 (117) 96 Height & Weight Height: '" Weight: lbs. oz. kg; 31.48 BMI Method: General Appearance: No No Apparent Distress, No WD/WN, No Anxious, No Chronically ill, No Cachetic, No Mild Distress, No Moderate Distress, No Obese, No Severe Distress, No Thin, No Other HEENT: No PERRL/EOMI, No TMs Normal, No Normal ENT Inspection, No Pharynx Normal, No Moist Mucous Membranes, No Pale Conjunctivae (L), No Pale Conjunctivae (R), No Pharyngeal Erythema, No Photophobia, No Scleral Icterus (L), No Scleral Icterus (R), No TM Abnormal (L), No TM Abnormal (R), No Tonsillar Exudate, No Tonsillar Enlargement, No Other Neck: No Full Range of Motion, No Normal Inspection, No Non Tender, No Supple, No Carotid Bruit, No JVD, No Limited Range of Motion, No Lymphadenopathy (L), No Lymphadenopathy (R), No Tender Lateral, No Tender Midline, No Thyromegaly, No Other Respiratory: No Chest Non Tender, No Lungs Clear, No Normal Breath Sounds, No No Accessory Muscle Use, No No Respiratory Distress, No Accessory Muscle Use, No Crackles, No Decreased Breath Sounds, No Expiration, No Inspiration, No Pleural Rub, No Rales, No Respiratory Distress, No Rhonci, No Stridor, No Wheezing, No Other Cardiovascular: No Regular Rate, Rhythm, No No Edema, No No Gallop, No No JVD, No No Murmur, No Normal Peripheral Pulses, No Bradycardia, No Diastolic Murmur, No Systolic Murmur, No Extra Beats, No Friction Rub, No Gallop/S3, No Gallop/S4, No Irregularly Irregular, No JVD, No Tachycardia, No Other Capillary Refill: Less Than 3 Seconds Gastrointestinal: normal bowel sounds, non tender, soft; No no organomegaly, No no pulsatile mass, No abnormal bowel sounds, No distended, No guarding, No rebound, No tenderness, No hernia, No mass, No hepatomegaly, No spleenomegaly, No other Results Lab Laboratory Tests 01/30/23 14:20 Assessment/Plan Assessment/Plan . Critical Care: Critically Ill Patient MARLY GUTIERREZ MD Jan 30, 2023 18:51
--- NOTE | 2023-01-30 18:53 | Consultation-Cardiology ---
HPI-Cardiology Cardiology Consultation: Date of Consultation 01/30/23 Date of Admission Attending Physician [facility] Admitting Physician Admitting Physician: Erin Parsons DO Attending Physician: Erin Parsons DO Consulting Physician ISAURO BROWN MD HPI: Time Seen by a Provider: 18:30 Mr. Fermin is a 42-year-old male with a history of methamphetamine use, last urine tox positive in September 2022, atrial fibrillation on Xarelto and diltiazem, status post failed ablation in [place] in 2020, COPD, persistently elevated white blood cell count, heart failure with reduced EF, last EF 50 to 55% but has been as low as 30 to 35% in recent years, hyperlipidemia, tobacco abuse, history of med noncompliance, elevated BNP with a baseline of approximately 1000 who presents for evaluation of shortness of breath fatigue and intermittent sharp chest discomfort. Patient states that he was last discharged on January 21. At that time he presented with shortness of breath and he was diuresed and underwent thoracentesis with 2.2 L removal of fluid on the right lung. He was subsequently discharged and stated that he felt great. 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 He did note that after some time he began to get extremely short of breath and fatigued with any form of vigorous activity. He did note intermittent sharp electric type pains radiating from the chest up to the left shoulder, not necessarily associated with activity or shortness of breath episodes. He also reports PND type episodes occurring over the past several days and a cough. Since he was discharged on 414 he was taken off of many of his medications. He only continued on diltiazem 180 daily Lasix 80 daily Xarelto 20 and aspirin 81. He states that he used to be on Toprol XL, Jardiance, Aldactone, lisinopril and this was confirmed after reviewing some of his clinic notes. Otherwise he denies palpitations presyncope syncope no lower extremity edema. His EKG today demonstrates atrial fibrillation with ST depressions in the anterolateral and inferior leads, incomplete interventricular conduction delay all of which were unchanged from his EKG back on January 16, 2023. BNP today is 1056, troponin I is 0.04,white blood cell count elevated at 16, T. bili 1.3, alk phos 257, creatinine is 0.8 and U tox is negative. Cardiology is now consulted to aid in evaluation Review of Systems-Cardiology Review of Systems Other comments All systems were reviewed and are negative except what is been described in HPI All Other Systems Reviewed Negative Unless Noted: Yes JMV-Dkaisk-Mcirll Hx Patient Social History Smoking Status: Former Smoker 2nd Hand Smoke Exposure: Yes Have you traveled recently?: No Alcohol Use?: No Pt feels they are or have been: Yes Tobacco type used: Cigarettes Immunizations Up To Date Tetanus Booster (TDap): Unknown Date of Influenza Vaccine: Aug 09, 2020 Past Medical History PMH Methamphetamine use -last urine tox positive in September 2022 Atrial fibrillation on Xarelto and diltiazem, status post failed ablation in [place] in 2020 and scheduled for repeat ablation on February 09 COPD Persistently elevated white blood cell count Heart failure with reduced EF, last EF 50 to 55% but has been as low as 30 to 35% in recent years Hyperlipidemia Tobacco abuse History of med noncompliance Elevated BNP with a baseline of approximately 1000 Family Medical History Family Medical History: He states his father and brother both had hypertrophic cardiomyopathy. They both from the condition. His brother actually had a heart transplant and then . Allergies and Home Medications Allergies Coded Allergies: hydrocodone (Verified Allergy, Severe, ITCHING, 08/05/22) Penicillins (Verified Allergy, Unknown, 11/09/20) Patient Home Medication List Home Medication List Reviewed: Yes Diltiazem HCl (Diltiazem 24Hr ER) 180 Mg Cap.er.24h, 180 MG PO HS, (Reported) Entered as Reported by: JACQUELINE TOBIAS on 01/17/23 1358 Furosemide (Furosemide) 40 Mg Tablet, 80 MG PO DAILY Prescribed by: ANN RHOADES on 01/20/23 0920 Potassium Chloride (Klor-Con M20) 20 Meq Tab.er.prt, 20 MEQ PO HS, (Reported) Entered as Reported by: JACQUELINE TOBIAS on 01/17/23 135 Rivaroxaban (Xarelto Tablet) 20 Mg Tablet, 20 MG PO DAILY@1700 Prescribed by: ANN RHOADES on 01/20/23 0920 Trazodone HCl (Trazodone HCl) 50 Mg Tablet, 50 MG PO HS, (Reported) Entered as Reported by: JACQUELINE TOBIAS on 01/17/23 1358 Exam Vital Signs Vital Signs Date Time Temp Pulse Resp B/P (MAP) Pulse Ox O2 Delivery O2 Flow Rate FiO2 01/30/23 18:28 95 Room Air 01/30/23 18:12 36.0 75 31 112/89 (97) Physical Exam Gen: No acute distress; A+O x 3, sitting comfortably in the bed Neck: soft supple, no cervical LAD, JVD elevatd to ear Lungs: CTA-bilaterally but diminished in R base; no serenity wheezing, rales or rhonchi CV: nl s1/s2, irreg, irreg, no m-g-r, RRR Abd: soft nt nd, no HSM, + BS Ext: wwp, no c-c; trace BLE edema; 2+ DP and femoral pulses skin: no lesions rashes or ecchymoses are noted. Labs Laboratory Tests Test 01/30/23 14:20 01/30/23 17:19 Range/Units White Blood Count 16.0 H 4.3-11.0 10^3/uL Red Blood Count 5.12 4.30-5.52 10^6/uL Hemoglobin 13.4 13.3-17.7 g/dL Hematocrit 44 40-54 % Mean Corpuscular Volume 85 80-99 fL Mean Corpuscular Hemoglobin 26 25-34 pg Mean Corpuscular Hemoglobin Concent 31 L 32-36 g/dL Red Cell Distribution Width 20.5 H 10.0-14.5 % Platelet Count 208 130-400 10^3/uL Mean Platelet Volume 11.2 9.0-12.2 fL Immature Granulocyte % (Auto) 1 % Neutrophils (%) (Auto) 82 H 42-75 % Lymphocytes (%) (Auto) 7 L 12-44 % Monocytes (%) (Auto) 8 0-12 % Eosinophils (%) (Auto) 1 0-10 % Basophils (%) (Auto) 0 0-10 % Neutrophils # (Auto) 13.1 H 1.8-7.8 10^3/uL Lymphocytes # (Auto) 1.2 1.0-4.0 10^3/uL Monocytes # (Auto) 1.3 H 0.0-1.0 10^3/uL Eosinophils # (Auto) 0.2 0.0-0.3 10^3/uL Basophils # (Auto) 0.1 0.0-0.1 10^3/uL Immature Granulocyte # (Auto) 0.1 0.0-0.1 10^3/uL Neutrophils % (Manual) 85 % Lymphocytes % (Manual) 10 % Monocytes % (Manual) 3 % Eosinophils % (Manual) 2 % Basophils % (Manual) 0 % Band Neutrophils 0 % Polychromasia SLIGHT Anisocytosis MODERATE Sodium Level 141 135-145 MMOL/L Potassium Level 3.9 3.6-5.0 MMOL/L Chloride Level 103 98-107 MMOL/L Carbon Dioxide Level 25 21-32 MMOL/L Anion Gap 13 5-14 MMOL/L Blood Urea Nitrogen 17 7-18 MG/DL Creatinine 0.84 0.60-1.30 MG/DL Estimat Glomerular Filtration Rate 111 BUN/Creatinine Ratio 20 Glucose Level 106 H 70-105 MG/DL Calcium Level 9.5 8.5-10.1 MG/DL Corrected Calcium 9.5 8.5-10.1 MG/DL Total Bilirubin 1.3 H 0.1-1.0 MG/DL Aspartate Amino Transf (AST/SGOT) 23 5-34 U/L Alanine Aminotransferase (ALT/SGPT) 29 0-55 U/L Alkaline Phosphatase 257 H 40-136 U/L Troponin I 0.041 H <0.028 NG/ML C-Reactive Protein High Sensitivity 1.07 H 0.00-0.50 MG/DL B-Type Natriuretic Peptide 1056.5 H <100.0 PG/ML Total Protein 7.7 6.4-8.2 GM/DL Albumin 4.0 3.2-4.5 GM/DL Urine Color YELLOW Urine Clarity CLEAR Urine pH 6.0 5-9 Urine Specific [place] 1.010 L 1.016-1.022 Urine Protein NEGATIVE NEGATIVE Urine Glucose (UA) NEGATIVE NEGATIVE Urine Ketones NEGATIVE NEGATIVE Urine Nitrite NEGATIVE NEGATIVE Urine Bilirubin NEGATIVE NEGATIVE Urine Urobilinogen 0.2 < = 1.0 MG/DL Urine Leukocyte Esterase NEGATIVE NEGATIVE Urine RBC (Auto) NEGATIVE NEGATIVE Urine RBC NONE /HPF Urine WBC NONE /HPF Urine Squamous Epithelial Cells NONE /HPF Urine Crystals NONE /LPF Urine Bacteria NEGATIVE /HPF Urine Casts NONE /LPF Urine Mucus NEGATIVE /LPF Urine Culture Indicated NO Urine Opiates Screen NEGATIVE NEGATIVE Urine Oxycodone Screen NEGATIVE NEGATIVE Urine Methadone Screen NEGATIVE NEGATIVE Urine Propoxyphene Screen NEGATIVE NEGATIVE Urine Barbiturates Screen NEGATIVE NEGATIVE Ur Tricyclic Antidepressants Screen NEGATIVE NEGATIVE Urine Phencyclidine Screen NEGATIVE NEGATIVE Urine Amphetamines Screen NEGATIVE NEGATIVE Urine Methamphetamines Screen NEGATIVE NEGATIVE Urine Benzodiazepines Screen NEGATIVE NEGATIVE Urine Cocaine Screen NEGATIVE NEGATIVE Urine Cannabinoids Screen NEGATIVE NEGATIVE ECG Impression ECG Comment His EKG today demonstrates atrial fibrillation with ST depressions in the anterolateral and inferior leads, incomplete interventricular conduction delay all of which were unchanged from his EKG back on January 16, 2023 A/P-Cardiology Plan Mr. Fermin is a 42-year-old male with a history of methamphetamine use, last urine tox positive in September 2022, atrial fibrillation on Xarelto and diltiazem, status post failed ablation in [place] in 2020, COPD, persistently elevated white blood cell count, heart failure with reduced EF, last EF 50 to 55% but has been as low as 30 to 35% in recent years, hyperlipidemia, tobacco abuse, history of med noncompliance, elevated BNP with a baseline of approximately 1000 who presents for evaluation of shortness of breath fatigue and intermittent sharp chest discomfort. ## Troponinemia: Troponin elevated at 0.04. Suspect type II demand ischemia in setting of heart failure. Ppatient is chest pain-free at this time. - We will check a troponin in the a.m to ensure no significant increase - cont ASA ## NIDCM: Pt has hx of NIDCM. last cath in 2020 with non obstructive CAD - cont ASA- hol don statin given transaminitis ## HFrEF- last EF of 50-55% on October 2022. Patient was taken off many of his heart failure meds on his last discharge. -Of note, patient has complained of lightheadedness dizziness in the past when on his heart failure management regimen. As such, we will start with the lowest doses of the medications and titrate up as the patient tolerates. Restart his heart failure regimen, which includes Toprol-XL 12.5 mg p.o. daily, Jardiance 10 mg p.o. daily, lisinopril 2.5 mg p.o. daily. -Patient is reporting breast tenderness which I suspect is secondary to Aldactone. I will look to see if we have eplerenone on formula. -Patient takes Lasix 80 mg p.o. daily at home we will transition him to Lasix 80 mg IV twice daily while in house. -Obtain transthoracic echocardiogram ##Atrial fibrillation: Patient notes he had a A-fib ablation in 2020 in [place]. Notes that it is failed. EKG today demonstrates atrial fibrillation with controlled ventricular response. Per the patient he is scheduled for A-fib ablation with one of the [facility] providers on February 09. -Continue Xarelto -Patient taking diltiazem ##Breast tenderness: As noted above, suspect secondary to Aldactone. -We will hold off on Aldactone and check to see if eplerenone is on formulary ##Disposition -Diuresis, reinitiate heart failure regimen, Dr. Lemus to follow in the ISAURO Verma MD Jan 30, 2023 18:53
[2023-01-30] MEDS ORDERED: RT-ALBUTEROL/IPRATROPIUM 3 ML (DUONEB) VIAL INH PRN (19:00)
[2023-01-30] MEDS: EMPAGLIFLOZIN 10 MG TABLET (JARDIANCE) PO SCH (19:55)
[2023-01-30] MEDS: DOCUSATE SODIUM 100 MG (COLACE) CAP PO SCH (20:11)
[2023-01-30] MEDS: SENNOSIDES 8.6 MG (SENOKOT) TAB PO SCH (20:12)
[2023-01-30] MEDS: traZODone 50 MG (DESYREL) TAB PO SCH (21:04)
[2023-01-31 04:25] LABS: BASOPHILS # (AUTO) 0.1 10^3/uL (0.0-0.1); BASOPHILS % (AUTO) 1 % (0-10); EOSINOPHILS # (AUTO) 0.2 10^3/uL (0.0-0.3); EOSINOPHILS % (AUTO) 2 % (0-10); HEMATOCRIT 42 % (40-54); HEMOGLOBIN 12.8 g/dL (13.3-17.7); LYMPHOCYTES # (AUTO) 1.2 10^3/uL (1.0-4.0); LYMPHOCYTES % (AUTO) 9 % (12-44); MEAN CORPUSCULAR HEMOGLOBIN 26 pg (25-34); MEAN CORPUSCULAR HGB CONC 30 g/dL (32-36); MEAN CORPUSCULAR VOLUME 86 fL (80-99); MEAN PLATELET VOLUME 11.7 fL (9.0-12.2); MONOCYTES # (AUTO) 1.2 10^3/uL (0.0-1.0); MONOCYTES % (AUTO) 9 % (0-12); NEUTROPHILS # (AUTO) 10.6 10^3/uL (1.8-7.8); NEUTROPHILS % (AUTO) 79 % (42-75); PLATELET COUNT 172 10^3/uL (130-400); WHITE BLOOD COUNT 13.3 10^3/uL (4.3-11.0)
[2023-01-31 04:30] LABS: POTASSIUM 3.9 MMOL/L (3.6-5.0)
[2023-01-31 04:31] LABS: ALBUMIN 3.6 GM/DL (3.2-4.5)
[2023-01-31 04:32] LABS: CALCIUM 9.2 MG/DL (8.5-10.1)
[2023-01-31 04:36] LABS: PHOSPHORUS 4.6 MG/DL (2.3-4.7)
[2023-01-31 04:37] LABS: CREATININE SERUM 0.94 MG/DL (0.60-1.30)
[2023-01-31 04:40] LABS: MAGNESIUM 1.8 MG/DL (1.6-2.4)
[2023-01-31] MEDS: MAGNESIUM 1 GM/100 ML IVPB 100 ML IV SCH ×2 (04:59→05:00)
[2023-01-31] MEDS ORDERED: POTASSIUM CL 10MEQ/50ML IVPB 50 ML IV SCH (06:00)
[2023-01-31] MEDS ORDERED: MAGNESIUM 1 GM/100 ML IVPB 100 ML IV SCH (06:00)
[2023-01-31] MEDS ORDERED: KCL 20 MEQ TAB (K-DUR) PO SCH (06:00)
[2023-01-31] MEDS: FUROSEMIDE 40 MG/4 ML INJ (LASIX) IVP SCH ×2 (06:17→16:47)
--- NOTE | 2023-01-31 08:36 | Progress Note - Cardiology ---
Cardiology SOAP Progress Note Subjective: Lying in bed Reports SOB is better today Reports chest pain, but location is more epigastric C/O freq cough C/O nausea Objective: I&O/Vital Signs 02/01/23 02/01/23 02/01/23 02/01/23 00:02 01:00 03:54 06:24 Temp 36.9 36.9 Pulse 70 71 62 68 Resp 18 18 B/P (MAP) 100/59 (73) 95/65 (75) 105/64 (78) Pulse Ox 94 95 O2 Delivery Room Air Room Air 02/01/23 02/01/23 02/01/23 02/01/23 07:36 07:47 07:59 08:00 Temp 36.2 Pulse 71 68 Resp 16 B/P (MAP) 104/69 (81) Pulse Ox 95 95 O2 Delivery Room Air Room Air Room Air 02/01/23 11:17 Temp 36.1 Pulse 76 Resp 16 B/P (MAP) 90/51 (64) Pulse Ox 96 O2 Delivery Room Air 02/01/23 00:00 Intake Total 1940 ml Output Total 4100 ml Balance -2160 ml Constitutional: AAO x 3, well-developed, well-nourished Respiratory: No accessory muscle use, No respiratory distress; chest expansion is symmetric, chest is bilaterally symmetric, lungs clear to auscultation Cardiovascular: irregularly irregular; No JVD; S1 and S2 Gastrointestional: No tender; soft; No guarding; audible bowel sounds Extremities: no lower extremity edema bilateral Neurologic/Psychiatric: grossly intact (moves all extremities) Skin: No rash on exposed areas, No ulcerations on exposed areas Results/Procedures: Labs Laboratory Tests 01/31/23 11:59: Glucometer 94 02/01/23 04:50: White Blood Count 11.5H, Red Blood Count 4.94, Hemoglobin 13.0L, Hematocrit 42, Mean Corpuscular Volume 84, Mean Corpuscular Hemoglobin 26, Mean Corpuscular Hemoglobin Concent 31L, Red Cell Distribution Width 20.8H, Platelet Count 201, Mean Platelet Volume 12.1, Immature Granulocyte % (Auto) 1, Neutrophils (%) (Auto) 75, Lymphocytes (%) (Auto) 12, Monocytes (%) (Auto) 9, Eosinophils (%) (Auto) 2, Basophils (%) (Auto) 1, Neutrophils # (Auto) 8.6H, Lymphocytes # (Auto) 1.4, Monocytes # (Auto) 1.1H, Eosinophils # (Auto) 0.3, Basophils # (Auto) 0.1, Immature Granulocyte # (Auto) 0.1, Sodium Level 138, Potassium Level 3.7, Chloride Level 101, Carbon Dioxide Level 26, Anion Gap 11, Blood Urea Nitrogen 22H, Creatinine 1.24, Estimat Glomerular Filtration Rate 74, BUN/Creatinine Ratio 18, Glucose Level 106H, Calcium Level 9.5, Corrected Calcium 9.7, Phosphorus Level 4.9H, Magnesium Level 2.2, Total Bilirubin 1.1H, Aspartate Amino Transf (AST/SGOT) 23, Alanine Aminotransferase (ALT/SGPT) 26, Alkaline Phosphatase 213H, Total Protein 7.2, Albumin 3.8 Microbiology 01/30/23 MRSA Screen - Final, Complete A/P: Assessment: Acute on chronic systolic CHF - continue diuretics - clinically improving Mildly elevated troponin - likely Type 2 NH secondary to CHF Shortness of breath, cough, bilateral pleural effusion worse on the right - undetermined etiology - s/p thoracentesis on 01-18-[address] Tadeo (2150ml) H/O non-sustained WCT on 10/21/22 and 10/22/22, - probably aberrance during A Fib with RVR Acute on chronic systolic congestive heart failure - Echo was done in April 2022 with ejection fraction 40 to 45% with biatrial enlargement, moderate mitral regurgitation, pulmonary artery pressure 45 to 50 mmHg. - Echo of 10-11-[address] Hernandez showed LVEF 35-40%. Mod sized L pleural effusion. Mild MR. Mild to mod TR. - Echo on 10-26-22: LVEF 50-55%, mod biatrial enlargement, mod pleural eff Persistent atrial fibrillation/flutter - History of ablation done in [place] in late 2020, previously refusing any further ablation - Had previously been on Eliquis but had had compliance issues - Lately on Xarelto for stroke prophylaxis Nonischemic cardiomyopathy - cardiac catheterization done in [place] around 2019 did not show any obstructive disease. History of methamphetamine abuse. - Had still using it intermittently, he was found to have methamphetamine in his pocket during recent hospitalization - UDS negative this admission EtOH abuse. Hyperlipidemia Tobaccoism History of noncompliance with medication or medical instructions - reported he had not been on his medication regimen for over a week per pt History of elevated liver enzymes. - Probably underlying cirrhosis seen on CTA of the abdomen in the past. Plan: Complex management with recent re-admission Acute on chronic systolic CHF - continue diuretics Monitor lab closely and replace electrolytes Atrial flutter - continue xarelto for stroke prophylaxis C/O nausea and epigastric discomfort - start PPI and pepcid Continue HF medications - including BB, diuretics, jardiance and NOLVIA - Aldactone stopped d/t c/o breast tenderness - consider eplerenone Leukocytosis - undetermined etiology - management per medical services Again advised strict compliance with medications Further recs will be based on his hospital course We have reviewed his records from ANN Chacon Jan 31, 2023 08:36
[2023-01-31] MEDS ORDERED: KCL 20 MEQ TAB (K-DUR) PO ONE (09:00)
[2023-01-31] MEDS: lisINopril 5 MG (PRINIVIL) TABLET PO SCH (09:36)
[2023-01-31] MEDS: ASPIRIN 81 MG CHEW (CHILDREN'S ASA) PO SCH (09:36)
[2023-01-31] MEDS: EMPAGLIFLOZIN 10 MG TABLET (JARDIANCE) PO SCH (09:37)
[2023-01-31] MEDS: DOCUSATE SODIUM 100 MG (COLACE) CAP PO SCH ×2 (09:37→20:15)
[2023-01-31] MEDS: SENNOSIDES 8.6 MG (SENOKOT) TAB PO SCH ×2 (09:37→20:15)
[2023-01-31] MEDS: PANTOPRAZOLE 40 MG (PROTONIX) TAB PO SCH (09:39)
[2023-01-31] MEDS: FAMOTIDINE 20 MG (PEPCID) TABLET PO SCH ×2 (09:39→20:14)
--- NOTE | 2023-01-31 10:07 | History & Physical ---
HPI History of Present Illness: Pt came to the ER yesterday due to difficulty walking due to shortness of breath worsening over last 3-4 days. He had some sharp pains in his left chest as well, hasn't had any today. [place] nauseated, sweaty, dizzy. Admits cough that is nonproductive. Source: patient Date seen by provider: Jan 31, 2023 Time Seen by Provider: 10:03 Attending Physician [facility] PCP Admitting Physician: Erin Parsons DO Attending Physician: Jb Landa MD Consult Date of Admission Jan 30, 2023 at 17:59 Home Medications Home Medications Reviewed patient Home Medication Reconciliation performed by pharmacy medication reconciliations instrument and electrical technician and/or nursing. Patients Allergies have been reviewed. Allergies Coded Allergies: hydrocodone (Verified Allergy, Severe, ITCHING, 08/05/22) spironolactone (Verified Allergy, Mild, 01/30/23) breast tendernes/swelling Penicillins (Verified Allergy, Unknown, 11/09/20) [id number] Hx Patient Social History Drug of Choice: METHAMPHETAMINE, MARIJUANA Smoking Status: Former Smoker (quit in 2019) 2nd Hand Smoke Exposure: Yes Recent Hopitalizations: No Alcohol Use?: No (reports last use around 10/2022) Substance type: Methamphetamine (reports last use 10/2022), Marijuana (reports last use 10/2022) Tobacco type used: Cigarettes Have you traveled recently?: No Immunizations Up To Date Tetanus Booster (TDap): Unknown Influenza Vaccine Up-to-Date: No; Not Current First/Initial COVID19 Vaccinat: N/A Second COVID19 Vaccination [place]: N/A Third COVID19 Vaccination Date: N/A Past Medical History PMHx: Atrial fibrillation/atrial flutter Meth use Congestive heart failure HTN SurgHx: Appendectomy Family Medical History Significant Family History: Heart Disease, Diabetes Other Significan Family Hx: SOCIAL HISTORY: -ETOH--REGULAR USE -DRUGS--METHAMPHETAMINES -SMOKES 1 PPD PAST SURGICAL HISTORY: -APPENDECTOMY -HERNIA REPAIR -CARDIOVERSIONS ECHOCARDIOGRAM 11/13/20--EF 30-35%, NO REGIONAL WALL MOTION ABNORMALITIES. EXTREME NON-COMPLIANCE IN ALL ASPECTS OF CARE Review of Systems (CHC) Constitutional: No fever EENTM: No nose congestion, No throat pain Respiratory: cough, short of breath Cardiovascular: chest pain, palpitations Gastrointestinal: abdominal pain (epigastric); No constipation, No diarrhea; nausea; No vomiting Genitourinary: No dysuria; frequency Musculoskeletal: joint pain Psychiatric/Neurological: Numbness (left leg along the back and right foot, has had that since last admission), Paresthesia Reviewed Test Results Reviewed Test Results Lab Laboratory Tests Test 01/30/23 14:20 01/30/23 17:19 01/31/23 00:24 01/31/23 03:17 Range/Units White Blood Count 16.0 H 13.3 H 4.3-11.0 10^3/uL Red Blood Count 5.12 4.88 4.30-5.52 10^6/uL Hemoglobin 13.4 12.8 L 13.3-17.7 g/dL Hematocrit 44 42 40-54 % Mean Corpuscular Volume 85 86 80-99 fL Mean Corpuscular Hemoglobin 26 26 25-34 pg Mean Corpuscular Hemoglobin Concent 31 L 30 L 32-36 g/dL Red Cell Distribution Width 20.5 H 20.7 H 10.0-14.5 % Platelet Count 208 172 130-400 10^3/uL Mean Platelet Volume 11.2 11.7 9.0-12.2 fL Immature Granulocyte % (Auto) 1 1 % Neutrophils (%) (Auto) 82 H 79 H 42-75 % Lymphocytes (%) (Auto) 7 L 9 L 12-44 % Monocytes (%) (Auto) 8 9 0-12 % Eosinophils (%) (Auto) 1 2 0-10 % Basophils (%) (Auto) 0 1 0-10 % Neutrophils # (Auto) 13.1 H 10.6 H 1.8-7.8 10^3/uL Lymphocytes # (Auto) 1.2 1.2 1.0-4.0 10^3/uL Monocytes # (Auto) 1.3 H 1.2 H 0.0-1.0 10^3/uL Eosinophils # (Auto) 0.2 0.2 0.0-0.3 10^3/uL Basophils # (Auto) 0.1 0.1 0.0-0.1 10^3/uL Immature Granulocyte # (Auto) 0.1 0.1 0.0-0.1 10^3/uL Neutrophils % (Manual) 85 % Lymphocytes % (Manual) 10 % Monocytes % (Manual) 3 % Eosinophils % (Manual) 2 % Basophils % (Manual) 0 % Band Neutrophils 0 % Polychromasia SLIGHT Anisocytosis MODERATE Sodium Level 141 139 135-145 MMOL/L Potassium Level 3.9 3.9 3.6-5.0 MMOL/L Chloride Level 103 102 98-107 MMOL/L Carbon Dioxide Level 25 22 21-32 MMOL/L Anion Gap 13 15 H 5-14 MMOL/L Blood Urea Nitrogen 17 19 H 7-18 MG/DL Creatinine 0.84 0.94 0.60-1.30 MG/DL Estimat Glomerular Filtration Rate 111 103 BUN/Creatinine Ratio 20 20 Glucose Level 106 H 100 70-105 MG/DL Calcium Level 9.5 9.2 8.5-10.1 MG/DL Corrected Calcium 9.5 9.5 8.5-10.1 MG/DL Total Bilirubin 1.3 H 1.0 0.1-1.0 MG/DL Aspartate Amino Transf (AST/SGOT) 23 25 5-34 U/L Alanine Aminotransferase (ALT/SGPT) 29 24 0-55 U/L Alkaline Phosphatase 257 H 224 H 40-136 U/L Troponin I 0.041 H 0.047 H <0.028 NG/ML C-Reactive Protein High Sensitivity 1.07 H 0.00-0.50 MG/DL B-Type Natriuretic Peptide 1056.5 H <100.0 PG/ML Total Protein 7.7 7.0 6.4-8.2 GM/DL Albumin 4.0 3.6 3.2-4.5 GM/DL Urine Color YELLOW Urine Clarity CLEAR Urine pH 6.0 5-9 Urine Specific [place] 1.010 L 1.016-1.022 Urine Protein NEGATIVE NEGATIVE Urine Glucose (UA) NEGATIVE NEGATIVE Urine Ketones NEGATIVE NEGATIVE Urine Nitrite NEGATIVE NEGATIVE Urine Bilirubin NEGATIVE NEGATIVE Urine Urobilinogen 0.2 < = 1.0 MG/DL Urine Leukocyte Esterase NEGATIVE NEGATIVE Urine RBC (Auto) NEGATIVE NEGATIVE Urine RBC NONE /HPF Urine WBC NONE /HPF Urine Squamous Epithelial Cells NONE /HPF Urine Crystals NONE /LPF Urine Bacteria NEGATIVE /HPF Urine Casts NONE /LPF Urine Mucus NEGATIVE /LPF Urine Culture Indicated NO Urine Opiates Screen NEGATIVE NEGATIVE Urine Oxycodone Screen NEGATIVE NEGATIVE Urine Methadone Screen NEGATIVE NEGATIVE Urine Propoxyphene Screen NEGATIVE NEGATIVE Urine Barbiturates Screen NEGATIVE NEGATIVE Ur Tricyclic Antidepressants Screen NEGATIVE NEGATIVE Urine Phencyclidine Screen NEGATIVE NEGATIVE Urine Amphetamines Screen NEGATIVE NEGATIVE Urine Methamphetamines Screen NEGATIVE NEGATIVE Urine Benzodiazepines Screen NEGATIVE NEGATIVE Urine Cocaine Screen NEGATIVE NEGATIVE Urine Cannabinoids Screen NEGATIVE NEGATIVE Glucometer 127 H 70-110 MG/DL Phosphorus Level 4.6 2.3-4.7 MG/DL Magnesium Level 1.8 1.6-2.4 MG/DL Triglycerides Level 71 <150 MG/DL Cholesterol Level 182 < 200 MG/DL LDL Cholesterol Direct 133 H 1-129 MG/DL VLDL Cholesterol 14 5-40 MG/DL HDL Cholesterol 38 L 40-60 MG/DL Radiology 01/31/23 CXR "IMPRESSION: 1: There are small bilateral pleural effusions (right side more than the left), which have developed in the interim. 2: Suspected mild bibasilar atelectasis." Physical Exam-(CHC) Physical Exam Vital Signs VS - Last 72 Hours, by Label 01/30/23 01/30/23 01/30/23 01/30/23 14:15 17:54 18:10 18:12 Temp 36.0 36.0 36.0 Pulse 74 78 82 75 Resp 20 20 31 B/P (MAP) 134/109 (117) 117/89 112/89 (97) Pulse Ox 96 96 95 O2 Delivery Room Air Room Air 01/30/23 01/30/23 01/30/23 01/30/23 18:28 18:40 18:58 19:00 Temp 36.0 Pulse 75 71 Resp 26 B/P (MAP) Pulse Ox 95 95 96 96 O2 Delivery Room Air Room Air Room Air FiO2 21 01/30/23 01/30/23 01/30/23 01/30/23 19:43 20:00 20:25 21:00 Temp 37.0 Pulse 73 80 101 Resp 26 27 B/P (MAP) Pulse Ox 96 96 O2 Delivery Room Air Room Air 01/30/23 01/30/23 01/31/23 01/31/23 22:00 23:00 00:00 00:32 Temp 36.5 Pulse 77 67 66 Resp 27 18 18 B/P (MAP) 97/47 (64) 85/60 (68) 107/81 (90) Pulse Ox 93 95 96 O2 Delivery Room Air Room Air Room Air 01/31/23 01/31/23 01/31/23/24/23 01:00 01:00 02:00 03:00 Pulse 65 66 74 70 Resp 24 22 14 B/P (MAP) 105/67 (80) 91/53 (66) 94/78 (83) Pulse Ox 91 91 91 O2 Delivery Room Air Room Air Room Air 01/31/23 01/31/23 01/31/23 01/31/23 03:16 03:36 04:00 05:00 Temp 36.4 Pulse 75 65 Resp 27 18 B/P (MAP) 111/75 (87) 87/59 (68) Pulse Ox 94 97 97 O2 Delivery Room Air Room Air Room Air 01/31/23 01/31/23 01/31/23 01/31/23 06:00 07:00 07:18 07:20 Pulse 65 73 83 Resp 16 24 B/P (MAP) 89/59 (69) Pulse Ox 96 96 96 O2 Delivery Room Air Room Air Room Air 01/31/23 01/31/23 01/31/23 01/31/23 07:45 07:50 08:45 09:45 Pulse 70 66 76 Resp 35 12 31 B/P (MAP) 112/87 (95) 111/77 (88) 86/58 (67) Pulse Ox 92 96 93 94 O2 Delivery Room Air Room Air Room Air Room Air 01/31/23 01/31/23 01/31/23 01/31/23 10:15 11:15 12:00 12:14 Temp 36.1 Pulse 73 66 77 Resp 21 B/P (MAP) 111/79 (90) 82/66 (71) Pulse Ox 94 94 O2 Delivery Room Air Room Air Capillary Refill : Less Than 3 Seconds General Appearance: no apparent distress Respiratory: lungs clear, normal breath sounds Cardiovascular: no edema, irregularly irregular Peripheral Pulses: 2+ Dorsalis Pedis (R), 2+ Left Dors-Pedis (L) Gastrointestinal: normal bowel sounds, non tender, other (mild distension) Extremities: no pedal edema Neurologic/Psychiatric: alert, normal mood/affect, oriented x 3, other (5/5 strength in hip flexion right leg) Skin: normal color, ecchymosis (lower abdomen related to enoxaparin injections) Assessment/Plan Assessment/Plan Admission Status: Inpatient Order (span 2 midnights) Reason for Inpatient Admission: CHF exacerbation (1) Leukocytosis Status: Acute Assessment & Plan: Uncertain etiology. No clear evidence of infection. Improving. (2) Acute on chronic HFrEF (heart failure with reduced ejection fraction) Status: Acute Assessment & Plan: Cardiology following, started on IV furosemide 80 mg BID, reports mild improvement so far. (3) Elevated troponin Status: Acute Assessment & Plan: Appreciate Cardiology recommendations. Suspect secondary to a fib and CHF, no clear evidence of ischemia. (4) Bilateral pleural effusion Status: Chronic Assessment & Plan: Suspect secondary to CHF. (5) HTN (hypertension) Status: Chronic Assessment & Plan: BP currently borderline low, monitor closely. Qualifiers: Qualified Codes: I10 - Essential (primary) hypertension (6) HLD (hyperlipidemia) Status: Chronic (7) Persistent atrial fibrillation Status: Chronic Assessment & Plan: Appreciate Cardiology recommendations, adjusting medications. (8) History of substance abuse Status: Chronic Assessment & Plan: Reporting abstinence for a few months. (9) DVT prophylaxis Status: Acute Assessment & Plan: Home rivaroxaban. JB LANDA MD Jan 31, 2023 10:07
[2023-01-31] MEDS: LORazepam 0.5 MG (ATIVAN) TABLET PO PRN ×2 (10:28→20:13)
[2023-01-31] MEDS ORDERED: RIVA20TA PO (10:39)
[2023-01-31] MEDS ORDERED: FURO80TA3 PO (10:39)
--- NOTE | 2023-01-31 12:38 | Progress Note - Cardiology ---
Cardiology SOAP Progress Note Subjective: Shortness of breath has improved Gen weakness and malaise are still present No focal weakness No cp or palp or syncope No swelling No n/v/d Objective: I&O/Vital Signs 01/31/23 01/31/23 01/31/23 01/31/23 01:00 01:00 02:00 03:00 Pulse 65 66 74 70 Resp 24 22 14 B/P (MAP) 105/67 (80) 91/53 (66) 94/78 (83) Pulse Ox 91 91 91 O2 Delivery Room Air Room Air Room Air 01/31/23 01/31/23 01/31/23 01/31/23 03:16 03:36 04:00 05:00 Temp 36.4 Pulse 75 65 Resp 27 18 B/P (MAP) 111/75 (87) 87/59 (68) Pulse Ox 94 97 97 O2 Delivery Room Air Room Air Room Air 01/31/23 01/31/23 01/31/23 01/31/23 06:00 07:00 07:18 07:20 Pulse 65 73 83 Resp 16 24 B/P (MAP) 89/59 (69) Pulse Ox 96 96 96 O2 Delivery Room Air Room Air Room Air 01/31/23 01/31/23 01/31/23 01/31/23 07:45 07:50 08:45 09:45 Pulse 70 66 76 Resp 35 12 31 B/P (MAP) 112/87 (95) 111/77 (88) 86/58 (67) Pulse Ox 92 96 93 94 O2 Delivery Room Air Room Air Room Air Room Air 01/31/23 01/31/23 01/31/23 01/31/23 10:15 11:15 12:00 12:14 Temp 36.1 Pulse 73 66 77 Resp 21 B/P (MAP) 111/79 (90) 82/66 (71) Pulse Ox 94 94 O2 Delivery Room Air Room Air 01/31/23 00:00 Intake Total 600 ml Output Total 650 ml Balance -50 ml Constitutional: AAO x 3, well-developed, well-nourished Respiratory: No accessory muscle use, No respiratory distress; chest expansion is symmetric, chest is bilaterally symmetric, lungs clear to auscultation Cardiovascular: irregularly irregular; No JVD; S1 and S2 Gastrointestional: No tender; soft; No guarding; audible bowel sounds Extremities: no lower extremity edema bilateral Neurologic/Psychiatric: grossly intact (moves all extremities) Skin: No rash on exposed areas, No ulcerations on exposed areas Results/Procedures: Labs Laboratory Tests 01/30/23 14:20: White Blood Count 16.0H, Red Blood Count 5.12, Hemoglobin 13.4, Hematocrit 44, Mean Corpuscular Volume 85, Mean Corpuscular Hemoglobin 26, Mean Corpuscular Hemoglobin Concent 31L, Red Cell Distribution Width 20.5H, Platelet Count 208, Mean Platelet Volume 11.2, Immature Granulocyte % (Auto) 1, Neutrophils (%) (Auto) 82H, Lymphocytes (%) (Auto) 7L, Monocytes (%) (Auto) 8, Eosinophils (%) (Auto) 1, Basophils (%) (Auto) 0, Neutrophils # (Auto) 13.1H, Lymphocytes # (Auto) 1.2, Monocytes # (Auto) 1.3H, Eosinophils # (Auto) 0.2, Basophils # (Auto) 0.1, Immature Granulocyte # (Auto) 0.1, Neutrophils % (Manual) 85, Lymphocytes % (Manual) 10, Monocytes % (Manual) 3, Eosinophils % (Manual) 2, Basophils % (Manual) 0, Band Neutrophils 0, Polychromasia SLIGHT, Anisocytosis MODERATE, Sodium Level 141, Potassium Level 3.9, Chloride Level 103, Carbon Dioxide Level 25, Anion Gap 13, Blood Urea Nitrogen 17, Creatinine 0.84, Estimat Glomerular Filtration Rate 111, BUN/Creatinine Ratio 20, Glucose Level 106H, Calcium Level 9.5, Corrected Calcium 9.5, Total Bilirubin 1.3H, Aspartate Amino Transf (AST/SGOT) 23, Alanine Aminotransferase (ALT/SGPT) 29, Alkaline Phosphatase 257H, Troponin I 0.041H, C-Reactive Protein High Sensitivity 1.07H, B-Type Natriuretic Peptide 1056.5H, Total Protein 7.7, Albumin 4.0 01/30/23 17:19: Urine Color YELLOW, Urine Clarity CLEAR, Urine pH 6.0, Urine Specific [place] 1.010L, Urine Protein NEGATIVE, Urine Glucose (UA) NEGATIVE, Urine Ketones NEGATIVE, Urine Nitrite NEGATIVE, Urine Bilirubin NEGATIVE, Urine Urobilinogen 0.2, Urine Leukocyte Esterase NEGATIVE, Urine RBC (Auto) NEGATIVE, Urine RBC NONE, Urine WBC NONE, Urine Squamous Epithelial Cells NONE, Urine Crystals NONE, Urine Bacteria NEGATIVE, Urine Casts NONE, Urine Mucus NEGATIVE, Urine Culture Indicated NO, Urine Opiates Screen NEGATIVE, Urine Oxycodone Screen NEGATIVE, Urine Methadone Screen NEGATIVE, Urine Propoxyphene Screen NEGATIVE, Urine Barbiturates Screen NEGATIVE, Ur Tricyclic Antidepressants Screen NEGATIVE, Urine Phencyclidine Screen NEGATIVE, Urine Amphetamines Screen NEGATIVE, Urine Methamphetamines Screen NEGATIVE, Urine Benzodiazepines Screen NEGATIVE, Urine Cocaine Screen NEGATIVE, Urine Cannabinoids Screen NEGATIVE 01/31/23 00:24: Glucometer 127H 01/31/23 03:17: White Blood Count 13.3H, Red Blood Count 4.88, Hemoglobin 12.8L, Hematocrit 42, Mean Corpuscular Volume 86, Mean Corpuscular Hemoglobin 26, Mean Corpuscular Hemoglobin Concent 30L, Red Cell Distribution Width 20.7H, Platelet Count 172, Mean Platelet Volume 11.7, Immature Granulocyte % (Auto) 1, Neutrophils (%) (Auto) 79H, Lymphocytes (%) (Auto) 9L, Monocytes (%) (Auto) 9, Eosinophils (%) (Auto) 2, Basophils (%) (Auto) 1, Neutrophils # (Auto) 10.6H, Lymphocytes # (Auto) 1.2, Monocytes # (Auto) 1.2H, Eosinophils # (Auto) 0.2, Basophils # (Auto) 0.1, Immature Granulocyte # (Auto) 0.1, Sodium Level 139, Potassium Level 3.9, Chloride Level 102, Carbon Dioxide Level 22, Anion Gap 15H, Blood Urea Nitrogen 19H, Creatinine 0.94, Estimat Glomerular Filtration Rate 103, BUN/Creatinine Ratio 20, Glucose Level 100, Calcium Level 9.2, Corrected Calcium 9.5, Total Bilirubin 1.0, Aspartate Amino Transf (AST/SGOT) 25, Alanine Aminotransferase (ALT/SGPT) 24, Alkaline Phosphatase 224H, Troponin I 0.047H, Total Protein 7.0, Albumin 3.6, Phosphorus Level 4.6, Magnesium Level 1.8, Triglycerides Level 71, Cholesterol Level 182, LDL Cholesterol Direct 133H, VLDL Cholesterol 14, HDL Cholesterol 38L 01/31/23 11:59: Glucometer 94 A/P: Assessment: Acute on chronic systolic CHF - continue diuretics - clinically improving Mildly elevated troponin - likely Type 2 MO secondary to CHF Shortness of breath, cough, bilateral pleural effusion worse on the right - undetermined etiology - s/p thoracentesis on 01-18-[address] Tadeo (2150ml) H/O non-sustained WCT on 10/21/22 and 10/22/22, - probably aberrance during A Fib with RVR Acute on chronic systolic congestive heart failure - Echo was done in April 2022 with ejection fraction 40 to 45% with biatrial enl argement, moderate mitral regurgitation, pulmonary artery pressure 45 to 50 mmHg. - Echo of 10-11-[address] Hernandez showed LVEF 35-40%. Mod sized L pleural effusion. Mild MR. Mild to mod TR. - Echo on 10-26-22: LVEF 50-55%, mod biatrial enlargement, mod pleural eff Persistent atrial fibrillation/flutter - History of ablation done in [place] in late 2020, previously refusing any further ablation - Had previously been on Eliquis but had had compliance issues - Lately on Xarelto for stroke prophylaxis Nonischemic cardiomyopathy - cardiac catheterization done in [place] around 2019 did not show any obstructive disease. History of methamphetamine abuse. - Had still using it intermittently, he was found to have methamphetamine in his pocket during recent hospitalization - UDS negative this admission EtOH abuse. Hyperlipidemia Tobaccoism History of noncompliance with medication or medical instructions - pt reported he had not been on his medication regimen for over a week prior to this admission History of elevated liver enzymes. - Probably underlying cirrhosis seen on CTA of the abdomen in the past. Plan: Complex management with recent re-admission Acute on chronic systolic CHF - continue diuretics Monitor lab closely and replace electrolytes Atrial flutter - continue Xarelto for stroke prophylaxis C/O nausea and epigastric discomfort - start PPI and pepcid Continue HF medications - including BB, diuretics, jardiance and NOLVIA - Aldactone stopped d/t c/o breast tenderness - consider eplerenone Leukocytosis - undetermined etiology - management per medical services Again advised strict compliance with medications Further recs will be based on his hospital course We have reviewed his records from Dr. Russo and I discussed his case with SAVI Strange MD [facility] CCDS Jan 31, 2023 12:38
--- NOTE | 2023-01-31 13:03 | Diagnostic Imaging Report ---
INDICATION: Congestive heart failure. COMPARISON: 01/30/2023. TECHNIQUE: Single radiograph of the chest dated 01/31/2023. FINDINGS: The cardiac silhouette is within normal limits. Mild central pulmonary vascular congestion. Increasing right basilar interstitial opacities. No large-volume pleural effusion or pneumothorax. The osseous structures are stable without new acute osseous abnormality. IMPRESSION: Worsening right basilar atelectasis and/or pneumonitis. Developing mild central pulmonary vascular congestion without significant pleural effusion. Dictated by: Dictated on workstation # [id number]
[2023-01-31] MEDS ORDERED: BENZONATATE 100 MG (TESSALON) CAPSULE PO PRN (14:45)
[2023-01-31 16:15] VITALS: BP 104/72
[2023-01-31] MEDS: RIVAROXABAN 20 MG TABLET (XARELTO) PO SCH (16:47)
[2023-01-31 19:06] VITALS: BP 106/70
[2023-01-31] MEDS: traZODone 50 MG (DESYREL) TAB PO SCH (20:15)
[2023-01-31] MEDS: ACETAMINOPHEN 325 MG TABLET PO PRN (20:15)
[2023-02-01] VITALS (8 sets, daily range): BP systolic 90–114; BP diastolic 51–69
[2023-02-01 05:21] LABS: BASOPHILS # (AUTO) 0.1 10^3/uL (0.0-0.1); BASOPHILS % (AUTO) 1 % (0-10); EOSINOPHILS # (AUTO) 0.3 10^3/uL (0.0-0.3); EOSINOPHILS % (AUTO) 2 % (0-10); HEMATOCRIT 42 % (40-54); LYMPHOCYTES # (AUTO) 1.4 10^3/uL (1.0-4.0); LYMPHOCYTES % (AUTO) 12 % (12-44); MEAN CORPUSCULAR HEMOGLOBIN 26 pg (25-34); MEAN CORPUSCULAR HGB CONC 31 g/dL (32-36); MEAN CORPUSCULAR VOLUME 84 fL (80-99); MEAN PLATELET VOLUME 12.1 fL (9.0-12.2); MONOCYTES # (AUTO) 1.1 10^3/uL (0.0-1.0); MONOCYTES % (AUTO) 9 % (0-12); NEUTROPHILS # (AUTO) 8.6 10^3/uL (1.8-7.8); NEUTROPHILS % (AUTO) 75 % (42-75); PLATELET COUNT 201 10^3/uL (130-400); WHITE BLOOD COUNT 11.5 10^3/uL (4.3-11.0)
[2023-02-01 05:58] LABS: ALBUMIN 3.8 GM/DL (3.2-4.5); BILIRUBIN,TOTAL 1.1 MG/DL (0.1-1.0); CALCIUM 9.5 MG/DL (8.5-10.1); CREATININE SERUM 1.24 MG/DL (0.60-1.30); MAGNESIUM 2.2 MG/DL (1.6-2.4); PHOSPHORUS 4.9 MG/DL (2.3-4.7); POTASSIUM 3.7 MMOL/L (3.6-5.0); TOTAL PROTEIN 7.2 GM/DL (6.4-8.2)
[2023-02-01] MEDS: FUROSEMIDE 40 MG/4 ML INJ (LASIX) IVP SCH (06:32)
[2023-02-01] MEDS: LORazepam 0.5 MG (ATIVAN) TABLET PO PRN ×2 (07:45→16:07)
[2023-02-01] MEDS: DOCUSATE SODIUM 100 MG (COLACE) CAP PO SCH ×2 (08:42→21:05)
[2023-02-01] MEDS: PANTOPRAZOLE 40 MG (PROTONIX) TAB PO SCH (08:42)
[2023-02-01] MEDS: FAMOTIDINE 20 MG (PEPCID) TABLET PO SCH ×2 (08:42→21:05)
[2023-02-01] MEDS: EMPAGLIFLOZIN 10 MG TABLET (JARDIANCE) PO SCH (08:42)
[2023-02-01] MEDS: ASPIRIN 81 MG CHEW (CHILDREN'S ASA) PO SCH (08:42)
[2023-02-01] MEDS: SENNOSIDES 8.6 MG (SENOKOT) TAB PO SCH ×2 (08:43→21:05)
[2023-02-01] MEDS: lisINopril 5 MG (PRINIVIL) TABLET PO SCH (08:43)
--- NOTE | 2023-02-01 10:30 | Progress Note ---
Subjective Subjective/Events-last exam States he is starting to feel a little better, feels like timoteo really started working better last night. Denies chest pain. Continues to have pain in leg. Objective Exam Last Set of Vital Signs Vital Signs Date Time Temp Pulse Resp B/P (MAP) Pulse Ox O2 Delivery O2 Flow Rate FiO2 02/01/23 08:00 Room Air 02/01/23 07:59 36.2 68 16 104/69 (81) 95 01/30/23 18:40 21 Capillary Refill : Less Than 3 Seconds I&O Intake and Output 02/01/23 00:00 Intake Total 3290 ml Output Total 6250 ml Balance -2960 ml Intake Oral 3090 ml IV Total 200 ml Output Urine Total 6250 ml General: Alert, No Acute Distress Lungs: Clear to Auscultation, Normal Air Movement Heart: No Murmurs, Other (irregularly irregular) Abdomen: Normal Bowel Sounds, Soft, No Tenderness Extremities: No Edema Neuro: Normal Speech Psych/Mental Status: Mood NL Results/Procedures Lab Laboratory Tests 01/31/23 11:59: Glucometer 94 02/01/23 04:50: White Blood Count 11.5H, Red Blood Count 4.94, Hemoglobin 13.0L, Hematocrit 42, Mean Corpuscular Volume 84, Mean Corpuscular Hemoglobin 26, Mean Corpuscular Hemoglobin Concent 31L, Red Cell Distribution Width 20.8H, Platelet Count 201, Mean Platelet Volume 12.1, Immature Granulocyte % (Auto) 1, Neutrophils (%) (Auto) 75, Lymphocytes (%) (Auto) 12, Monocytes (%) (Auto) 9, Eosinophils (%) (Auto) 2, Basophils (%) (Auto) 1, Neutrophils # (Auto) 8.6H, Lymphocytes # (Auto) 1.4, Monocytes # (Auto) 1.1H, Eosinophils # (Auto) 0.3, Basophils # (Auto) 0.1, Immature Granulocyte # (Auto) 0.1, Sodium Level 138, Potassium Level 3.7, Chloride Level 101, Carbon Dioxide Level 26, Anion Gap 11, Blood Urea Nitrogen 22H, Creatinine 1.24, Estimat Glomerular Filtration Rate 74, BUN/Creatinine Ratio 18, Glucose Level 106H, Calcium Level 9.5, Corrected Calcium 9.7, Phosphorus Level 4.9H, Magnesium Level 2.2, Total Bilirubin 1.1H, Aspartate Amino Transf (AST/SGOT) 23, Alanine Aminotransferase (ALT/SGPT) 26, Alkaline Phosphatase 213H, Total Protein 7.2, Albumin 3.8 Microbiology 01/30/23 MRSA Screen - Final, Complete Radiology 01/31/23 CXR "IMPRESSION: 1: There are small bilateral pleural effusions (right side more than the left), which have developed in the interim. 2: Suspected mild bibasilar atelectasis. Assessment/Plan Assessment/Plan (1) Leukocytosis Status: Acute Assessment & Plan: Uncertain etiology. No clear evidence of infection. Improving. (2) Acute on chronic HFrEF (heart failure with reduced ejection fraction) Status: Acute Assessment & Plan: Cardiology following, started on IV furosemide 80 mg BID, resumed empagliflozin, reports mild improvement so far. (3) Elevated troponin Status: Acute Assessment & Plan: Appreciate Cardiology recommendations. Suspect secondary to a fib and CHF, no clear evidence of ischemia. (4) Bilateral pleural effusion Status: Chronic Assessment & Plan: Suspect secondary to CHF. (5) HTN (hypertension) Status: Chronic Assessment & Plan: BP currently borderline low, monitor closely. Qualifiers: Qualified Codes: I10 - Essential (primary) hypertension (6) HLD (hyperlipidemia) Status: Chronic (7) Persistent atrial fibrillation Status: Chronic Assessment & Plan: Appreciate Cardiology recommendations, adjusting medications. (8) History of substance abuse Status: Chronic Assessment & Plan: Reporting abstinence for a few months. (9) DVT prophylaxis Status: Acute Assessment & Plan: Home rivaroxaban. JB VALDEZ MD Feb 01, 2023 10:30
[2023-02-01] MEDS: PREGABALIN 50 MG (LYRICA) CAP PO SCH ×2 (11:08→21:04)
--- NOTE | 2023-02-01 11:13 | Progress Note - Cardiology ---
Cardiology SOAP Progress Note Subjective: Sitting up on the side of the bed States he feels much better today No c/o CP, palpitations, syncope or near syncope Objective: I&O/Vital Signs 02/01/23 02/01/23 02/01/23 02/01/23 06:24 07:36 07:47 07:59 Temp 36.2 Pulse 68 71 68 Resp 16 B/P (MAP) 105/64 (78) 104/69 (81) Pulse Ox 95 95 O2 Delivery Room Air Room Air 02/01/23 02/01/23 02/01/23 02/01/23 08:00 11:17 12:18 12:48 Temp 36.1 Pulse 76 70 71 Resp 16 16 B/P (MAP) 90/51 (64) 101/62 (75) Pulse Ox 96 95 O2 Delivery Room Air Room Air Room Air 02/01/23 15:55 Temp 35.9 Pulse 73 Resp 17 B/P (MAP) 97/62 (74) Pulse Ox 93 O2 Delivery Room Air 02/01/23 00:00 Intake Total 1940 ml Output Total 4100 ml Balance -2160 ml Constitutional: AAO x 3, well-developed, well-nourished Respiratory: No accessory muscle use, No respiratory distress; chest expansion is symmetric, chest is bilaterally symmetric, lungs clear to auscultation Cardiovascular: irregularly irregular; No JVD; S1 and S2 Gastrointestional: No tender; soft; No guarding; audible bowel sounds Extremities: no lower extremity edema bilateral Neurologic/Psychiatric: grossly intact (moves all extremities) Skin: No rash on exposed areas, No ulcerations on exposed areas Results/Procedures: Labs Laboratory Tests 02/01/23 04:50: White Blood Count 11.5H, Red Blood Count 4.94, Hemoglobin 13.0L, Hematocrit 42, Mean Corpuscular Volume 84, Mean Corpuscular Hemoglobin 26, Mean Corpuscular Hemoglobin Concent 31L, Red Cell Distribution Width 20.8H, Platelet Count 201, Mean Platelet Volume 12.1, Immature Granulocyte % (Auto) 1, Neutrophils (%) (Auto) 75, Lymphocytes (%) (Auto) 12, Monocytes (%) (Auto) 9, Eosinophils (%) (Auto) 2, Basophils (%) (Auto) 1, Neutrophils # (Auto) 8.6H, Lymphocytes # (Auto) 1.4, Monocytes # (Auto) 1.1H, Eosinophils # (Auto) 0.3, Basophils # (Auto) 0.1, Immature Granulocyte # (Auto) 0.1, Sodium Level 138, Potassium Level 3.7, Chloride Level 101, Carbon Dioxide Level 26, Anion Gap 11, Blood Urea Nitrogen 22H, Creatinine 1.24, Estimat Glomerular Filtration Rate 74, BUN/Creatinine Ratio 18, Glucose Level 106H, Calcium Level 9.5, Corrected Calcium 9.7, Phosphorus Level 4.9H, Magnesium Level 2.2, Total Bilirubin 1.1H, Aspartate Amino Transf (AST/SGOT) 23, Alanine Aminotransferase (ALT/SGPT) 26, Alkaline Phosphatase 213H, Total Protein 7.2, Albumin 3.8 Microbiology 01/30/23 MRSA Screen - Final, Complete A/P: Assessment: Acute on chronic systolic CHF - continue diuretics - clinically improving Mildly elevated troponin - likely Type 2 [place] secondary to CHF Shortness of breath, cough, bilateral pleural effusion worse on the right - undetermined etiology - s/p thoracentesis on 01-18-[address] Tadeo (2150ml) H/O non-sustained WCT on 10/21/22 and 10/22/22, - probably aberrance during A Fib with RVR Acute on chronic systolic congestive heart failure - Echo was done in April 2022 with ejection fraction 40 to 45% with biatrial enlargement, moderate mitral regurgitation, pulmonary artery pressure 45 to 50 mmHg. - Echo of 10-11-[address] Hernandez showed LVEF 35-40%. Mod sized L pleural effusion. Mild MR. Mild to mod TR. - Echo on 10-26-22: LVEF 50-55%, mod biatrial enlargement, mod pleural eff Persistent atrial fibrillation/flutter - History of ablation done in [place] in late 2020, previously refusing any further ablation - Had previously been on Eliquis but had had compliance issues - Lately on Xarelto for stroke prophylaxis Nonischemic cardiomyopathy - cardiac catheterization done in [place] around 2019 did not show any obstructive disease. History of methamphetamine abuse. - Had still using it intermittently, he was found to have methamphetamine in his pocket during recent hospitalization - UDS negative this admission EtOH abuse. Hyperlipidemia Tobaccoism History of noncompliance with medication or medical instructions - pt reported he had not been on his medication regimen for over a week prior to this admission History of elevated liver enzymes. - Probably underlying cirrhosis seen on CTA of the abdomen in the past. Plan: Complex management with recent re-admission Acute on chronic systolic CHF - clinically improving - change Lasix to oral Monitor lab closely and replace electrolytes Atrial flutter - continue Xarelto for stroke prophylaxis Continue HF medications - including BB, diuretics, jardiance and NOLVIA - Aldactone stopped d/t c/o breast tenderness Leukocytosis (improving) - undetermined etiology - management per medical services Again advised strict compliance with medications Increase ambulation today ANN RHOADES [facility] Feb 01, 2023 11:13
[2023-02-01] MEDS: ONDANSETRON 4 MG (ZOFRAN) ORAL DISSOLVE TAB PO PRN ×2 (13:04→22:20)
--- NOTE | 2023-02-01 13:08 | Progress Note - Cardiology ---
Cardiology SOAP Progress Note Subjective: Shortness of breath improving No shortness of breath at rest No n/v/d No focal weakness Gen weakness present No focal weakness Objective: I&O/Vital Signs 02/01/23 02/01/23 02/01/23 02/01/23 03:54 06:24 07:36 07:47 Temp 36.9 Pulse 62 68 71 Resp 18 B/P (MAP) 95/65 (75) 105/64 (78) Pulse Ox 95 95 O2 Delivery Room Air Room Air 02/01/23 02/01/23 02/01/23 02/01/23 07:59 08:00 11:17 12:18 Temp 36.2 36.1 Pulse 68 76 70 Resp 16 16 16 B/P (MAP) 104/69 (81) 90/51 (64) 101/62 (75) Pulse Ox 95 96 95 O2 Delivery Room Air Room Air Room Air Room Air 02/01/23 12:48 Pulse 71 02/01/23 00:00 Intake Total 1940 ml Output Total 4100 ml Balance -2160 ml Constitutional: AAO x 3, well-developed, well-nourished Respiratory: No accessory muscle use, No respiratory distress; chest expansion is symmetric, chest is bilaterally symmetric, lungs clear to auscultation Cardiovascular: irregularly irregular; No JVD; S1 and S2 Gastrointestional: No tender; soft; No guarding; audible bowel sounds Extremities: no lower extremity edema bilateral Neurologic/Psychiatric: grossly intact (moves all extremities) Skin: No rash on exposed areas, No ulcerations on exposed areas Results/Procedures: Labs Laboratory Tests 02/01/23 04:50: White Blood Count 11.5H, Red Blood Count 4.94, Hemoglobin 13.0L, Hematocrit 42, Mean Corpuscular Volume 84, Mean Corpuscular Hemoglobin 26, Mean Corpuscular Hemoglobin Concent 31L, Red Cell Distribution Width 20.8H, Platelet Count 201, Mean Platelet Volume 12.1, Immature Granulocyte % (Auto) 1, Neutrophils (%) (Auto) 75, Lymphocytes (%) (Auto) 12, Monocytes (%) (Auto) 9, Eosinophils (%) (Auto) 2, Basophils (%) (Auto) 1, Neutrophils # (Auto) 8.6H, Lymphocytes # (Auto) 1.4, Monocytes # (Auto) 1.1H, Eosinophils # (Auto) 0.3, Basophils # (Auto) 0.1, Immature Granulocyte # (Auto) 0.1, Sodium Level 138, Potassium Level 3.7, Chloride Level 101, Carbon Dioxide Level 26, Anion Gap 11, Blood Urea Nitrogen 22H, Creatinine 1.24, Estimat Glomerular Filtration Rate 74, BUN/Creatinine Ratio 18, Glucose Level 106H, Calcium Level 9.5, Corrected Calcium 9.7, Phosphorus Level 4.9H, Magnesium Level 2.2, Total Bilirubin 1.1H, Aspartate Amino Transf (AST/SGOT) 23, Alanine Aminotransferase (ALT/SGPT) 26, Alkaline Phosphatase 213H, Total Protein 7.2, Albumin 3.8 Microbiology 01/30/23 MRSA Screen - Final, Complete Laboratory Tests 01/30/23 14:20 01/31/23 03:17 02/01/23 04:50 A/P: Assessment: Acute on chronic systolic CHF - continue diuretics - clinically improving Mildly elevated troponin - likely Type 2 [place] secondary to CHF Shortness of breath, cough, bilateral pleural effusion worse on the right - undetermined etiology - s/p thoracentesis on 01-18-[address] Tadeo (2150ml) H/O non-sustained WCT on 10/21/22 and 10/22/22, - probably aberrance during A Fib with RVR Acute on chronic systolic congestive heart failure - Echo was done in April 2022 with ejection fraction 40 to 45% with biatrial enlargement, moderate mitral regurgitation, pulmonary artery pressure 45 to 50 mmHg. - Echo of 10-11-[address] Hernandez showed LVEF 35-40%. Mod sized L pleural effusion. Mild MR. Mild to mod TR. - Echo on 10-26-22: LVEF 50-55%, mod biatrial enlargement, mod pleural eff Persistent atrial fibrillation/flutter - History of ablation done in [place] in late 2020, previously refusing any further ablation - Had previously been on Eliquis but had had compliance issues - Lately on Xarelto for stroke prophylaxis Nonischemic cardiomyopathy - cardiac catheterization done in [place] around 2019 did not show any obstructive disease. History of methamphetamine abuse. - Had still using it intermittently, he was found to have methamphetamine in his pocket during recent hospitalization - UDS negative this admission EtOH abuse. Hyperlipidemia Tobaccoism History of noncompliance with medication or medical instructions - pt reported he had not been on his medication regimen for over a week prior to this admission History of elevated liver enzymes. - Probably underlying cirrhosis seen on CTA of the abdomen in the past. Plan: * change Lasix to oral * Monitor lab closely and replace electrolytes * continue Xarelto for stroke prophylaxis * Continue HF medication - including BB, diuretics, jardiance and NOLVIA * Aldactone stopped d/t c/o breast tenderness * Leukocytosis - management per medical services * Again advised strict compliance with medications * Increase ambulation today SAVI SILVA MD FACP [facility] Feb 01, 2023 13:08
[2023-02-01] MEDS: ACETAMINOPHEN 325 MG TABLET PO PRN (16:07)
[2023-02-01] MEDS: RIVAROXABAN 20 MG TABLET (XARELTO) PO SCH (16:07)
[2023-02-01] MEDS: FUROSEMIDE 40 MG (LASIX) TAB PO SCH (16:07)
[2023-02-01] MEDS: traZODone 50 MG (DESYREL) TAB PO SCH (21:05)
[2023-02-02] VITALS: BP 105/64
[2023-02-02 03:50] VITALS: BP 88/52
[2023-02-02 06:31] LABS: BASOPHILS # (AUTO) 0.1 10^3/uL (0.0-0.1); BASOPHILS % (AUTO) 1 % (0-10); EOSINOPHILS # (AUTO) 0.3 10^3/uL (0.0-0.3); EOSINOPHILS % (AUTO) 3 % (0-10); HEMATOCRIT 43 % (40-54); HEMOGLOBIN 13.3 g/dL (13.3-17.7); LYMPHOCYTES # (AUTO) 1.1 10^3/uL (1.0-4.0); LYMPHOCYTES % (AUTO) 10 % (12-44); MEAN CORPUSCULAR HEMOGLOBIN 26 pg (25-34); MEAN CORPUSCULAR HGB CONC 31 g/dL (32-36); MEAN CORPUSCULAR VOLUME 84 fL (80-99); MEAN PLATELET VOLUME 11.6 fL (9.0-12.2); MONOCYTES % (AUTO) 9 % (0-12); NEUTROPHILS # (AUTO) 8.6 10^3/uL (1.8-7.8); NEUTROPHILS % (AUTO) 78 % (42-75); PLATELET COUNT 214 10^3/uL (130-400); WHITE BLOOD COUNT 11.1 10^3/uL (4.3-11.0)
[2023-02-02 06:41] LABS: ALBUMIN 3.8 GM/DL (3.2-4.5); POTASSIUM 3.8 MMOL/L (3.6-5.0)
[2023-02-02 06:42] LABS: CALCIUM 9.5 MG/DL (8.5-10.1)
[2023-02-02 06:43] LABS: TOTAL PROTEIN 7.4 GM/DL (6.4-8.2)
[2023-02-02 06:45] LABS: BILIRUBIN,TOTAL 1.2 MG/DL (0.1-1.0)
[2023-02-02] MEDS: FUROSEMIDE 40 MG (LASIX) TAB PO SCH (06:45)
[2023-02-02 06:47] LABS: CREATININE SERUM 0.98 MG/DL (0.60-1.30); PHOSPHORUS 4.8 MG/DL (2.3-4.7)
[2023-02-02 06:49] LABS: MAGNESIUM 2.3 MG/DL (1.6-2.4)
[2023-02-02 07:14] VITALS: BP 92/56
--- NOTE | 2023-02-02 09:34 | Progress Note - Cardiology ---
Cardiology SOAP Progress Note Subjective: Lying in bed States he did not sleep well last night Reports he feels ready to go home No c/o CP, palpitations, SOB, syncope or near syncope No LE swelling Objective: I&O/Vital Signs Constitutional: AAO x 3, well-developed, well-nourished Respiratory: No accessory muscle use, No respiratory distress; chest expansion is symmetric, chest is bilaterally symmetric, lungs clear to auscultation Cardiovascular: irregularly irregular; No JVD; S1 and S2 Gastrointestional: No tender; soft; No guarding; audible bowel sounds Extremities: no lower extremity edema bilateral Neurologic/Psychiatric: grossly intact (moves all extremities) Skin: No rash on exposed areas, No ulcerations on exposed areas Results/Procedures: Labs Microbiology 01/30/23 MRSA Screen - Final, Complete A/P: Assessment: Acute on chronic systolic CHF - continue diuretics - clinically improving Mildly elevated troponin - likely Type 2 [place] secondary to CHF Shortness of breath, cough, bilateral pleural effusion worse on the right - undetermined etiology - s/p thoracentesis on 01-18-[address] Tadeo (2150ml) H/O non-sustained WCT on 10/21/22 and 10/22/22, - probably aberrance during A Fib with RVR Acute on chronic systolic congestive heart failure - Echo was done in April 2022 with ejection fraction 40 to 45% with biatrial enlargement, moderate mitral regurgitation, pulmonary artery pressure 45 to 50 mmHg. - Echo of 10-11-[address] Hernandez showed LVEF 35-40%. Mod sized L pleural effusion. Mild MR. Mild to mod TR. - Echo on 10-26-22: LVEF 50-55%, mod biatrial enlargement, mod pleural eff Persistent atrial fibrillation/flutter - History of ablation done in [place] in late 2020, previously refusing any further ablation - Had previously been on Eliquis but had had compliance issues - Lately on Xarelto for stroke prophylaxis Nonischemic cardiomyopathy - cardiac catheterization done in [place] around 2019 did not show any obstructive disease. History of methamphetamine abuse. - Had still using it intermittently, he was found to have methamphetamine in his pocket during recent hospitalization - UDS negative this admission EtOH abuse. Hyperlipidemia Tobaccoism History of noncompliance with medication or medical instructions - pt reported he had not been on his medication regimen for over a week prior to this admission History of elevated liver enzymes. - Probably underlying cirrhosis seen on CTA of the abdomen in the past. Plan: * Continue Lasix to oral * Monitor lab closely and replace electrolytes * continue Xarelto for stroke prophylaxis * Continue HF medication - including BB, diuretics, jardiance and NOLVIA * Leukocytosis - management per medical services * Again advised strict compliance with medications * Ok to discharge home from cardiac stand point ANN RHOADES Feb 02, 2023 09:34
[2023-02-02] MEDS ORDERED: FURO80TA83 PO (09:40)
[2023-02-02] MEDS ORDERED: PANT40TA52 PO (09:40)
[2023-02-02] MEDS ORDERED: ASPI81TA64 PO (09:40)
[2023-02-02] MEDS ORDERED: LISI2.5T13 PO (09:40)
[2023-02-02] MEDS ORDERED: EMPA10TA PO (09:40)
[2023-02-02] MEDS ORDERED: MTP25TSR PO (09:40)
[2023-02-02] MEDS ORDERED: FAMO20TA5 PO (09:40)
[2023-02-02] MEDS: lisINopril 5 MG (PRINIVIL) TABLET PO SCH (10:17)
[2023-02-02] MEDS: LORazepam 0.5 MG (ATIVAN) TABLET PO PRN (10:17)
[2023-02-02] MEDS: ASPIRIN 81 MG CHEW (CHILDREN'S ASA) PO SCH (10:17)
[2023-02-02] MEDS: PREGABALIN 50 MG (LYRICA) CAP PO SCH (10:17)
[2023-02-02] MEDS: FAMOTIDINE 20 MG (PEPCID) TABLET PO SCH (10:19)
[2023-02-02] MEDS: SENNOSIDES 8.6 MG (SENOKOT) TAB PO SCH (10:19)
[2023-02-02] MEDS: PANTOPRAZOLE 40 MG (PROTONIX) TAB PO SCH (10:19)
[2023-02-02] MEDS: DOCUSATE SODIUM 100 MG (COLACE) CAP PO SCH (10:19)
[2023-02-02] MEDS: EMPAGLIFLOZIN 10 MG TABLET (JARDIANCE) PO SCH (10:24)
[2023-02-02 11:14] VITALS: BP 105/71
[2023-02-02 11:23] VITALS: BP 105/71
--- NOTE | 2023-02-02 13:23 | Progress Note - Cardiology ---
Cardiology SOAP Progress Note Subjective: No cp or palp or syncope No shortness of breath at rest No focal weakness Gen weakness present No n/v/d Objective: I&O/Vital Signs 02/02/23 02/02/23 02/02/23 02/02/23 03:50 07:14 07:56 11:14 Temp 36.0 36.2 36.8 Pulse 68 71 80 88 Resp 16 18 18 B/P (MAP) 88/52 (64) 92/56 (68) 105/71 (82) Pulse Ox 92 94 95 O2 Delivery Room Air Room Air Room Air 02/02/23 02/02/23 02/02/23 11:20 11:23 13:02 Temp 36.8 Pulse 79 81 Pulse Ox 96 96 O2 Delivery Room Air O2 Flow Rate 0.00 FiO2 21 02/02/23 00:00 Intake Total 2680 ml Output Total 3695 ml Balance -1015 ml Constitutional: AAO x 3, well-developed, well-nourished Respiratory: No accessory muscle use, No respiratory distress; chest expansion is symmetric, chest is bilaterally symmetric, lungs clear to auscultation Cardiovascular: irregularly irregular; No JVD; S1 and S2 Gastrointestional: No tender; soft; No guarding; audible bowel sounds Extremities: no lower extremity edema bilateral Neurologic/Psychiatric: grossly intact (moves all extremities) Skin: No rash on exposed areas, No ulcerations on exposed areas Results/Procedures: Labs Laboratory Tests 02/02/23 05:57: White Blood Count 11.1H, Red Blood Count 5.10, Hemoglobin 13.3, Hematocrit 43, Mean Corpuscular Volume 84, Mean Corpuscular Hemoglobin 26, Mean Corpuscular Hemoglobin Concent 31L, Red Cell Distribution Width 20.5H, Platelet Count 214, Mean Platelet Volume 11.6, Immature Granulocyte % (Auto) 0, Neutrophils (%) (Auto) 78H, Lymphocytes (%) (Auto) 10L, Monocytes (%) (Auto) 9, Eosinophils (%) (Auto) 3, Basophils (%) (Auto) 1, Neutrophils # (Auto) 8.6H, Lymphocytes # (Auto) 1.1, Monocytes # (Auto) 1.0, Eosinophils # (Auto) 0.3, Basophils # (Auto) 0.1, Immature Granulocyte # (Auto) 0.1, Sodium Level 138, Potassium Level 3.8, Chloride Level 98, Carbon Dioxide Level 27, Anion Gap 13, Blood Urea Nitrogen 20H, Creatinine 0.98, Estimat Glomerular Filtration Rate 98, BUN/Creatinine Ratio 20, Glucose Level 86, Calcium Level 9.5, Corrected Calcium 9.7, Phosphorus Level 4.8H, Magnesium Level 2.3, Total Bilirubin 1.2H, Aspartate Amino Transf (AST/SGOT) 23, Alanine Aminotransferase (ALT/SGPT) 21, Alkaline Phosphatase 235H , Total Protein 7.4, Albumin 3.8 Microbiology 01/30/23 MRSA Screen - Final, Complete Laboratory Tests 02/01/23 04:50 02/02/23 05:57 A/P: Assessment: Acute on chronic systolic CHF - continue diuretics - clinically improving Mildly elevated troponin at presentation - likely Type 2 [place] secondary to CHF Shortness of breath, cough, bilateral pleural effusion worse on the right - undetermined etiology - s/p thoracentesis on 01-18-[address] Tadeo (2150ml) H/O non-sustained WCT on 10/21/22 and 10/22/22, - probably aberrance during A Fib with RVR Acute on chronic systolic congestive heart failure - Echo was done in April 2022 with ejection fraction 40 to 45% with biatrial enlargement, moderate mitral regurgitation, pulmonary artery pressure 45 to 50 mmHg. - Echo of 10-11-[address] Hernandez showed LVEF 35-40%. Mod sized L pleural effusion. Mild MR. Mild to mod TR. - Echo on 10-26-22: LVEF 50-55%, mod biatrial enlargement, mod pleural eff Persistent atrial fibrillation/flutter - History of ablation done in [place] in late 2020, previously refusing any further ablation - Had previously been on Eliquis but had had compliance issues - Lately on Xarelto for stroke prophylaxis Nonischemic cardiomyopathy - cardiac catheterization done in [place] around 2019 did not show any obstructive disease. History of methamphetamine abuse. - Had still using it intermittently, he was found to have methamphetamine in his pocket during recent hospitalization - UDS negative this admission EtOH abuse. Hyperlipidemia Tobaccoism History of noncompliance with medication or medical instructions - pt reported he had not been on his medication regimen for over a week prior to this admission History of elevated liver enzymes. - Probably underlying cirrhosis seen on CTA of the abdomen in the past. Plan: * Continue oral Lasix * Monitor lab closely and replace electrolytes * continue Xarelto for stroke prophylaxis * Continue HF medication - including BB, diuretics, jardiance and NOLVIA * Leukocytosis - management per medical services * Again advised strict compliance with medications * Ok to discharge home from cardiac stand point * May resume light duty beginning February 07, 2023 SAVI SILVA MD [facility] Feb 02, 2023 13:23
[2023-02-02] MEDS ORDERED: RIVA20TA PO (14:03)
[2023-02-02] MEDS ORDERED: TRZ50T PO (14:03)
--- NOTE | 2023-02-02 14:08 | Discharge Summary ---
Discharge Summary Hospital Course Problems/Diagnosis: (1) Leukocytosis Status: Acute Assessment & Plan: Uncertain etiology. No clear evidence of infection. Improving. (2) Acute on chronic HFrEF (heart failure with reduced ejection fraction) Status: Acute Assessment & Plan: Cardiology following, started on IV furosemide 80 mg BID, resumed empagliflozin and other meds that he had not been on at home. Called [facility] transition care team to discuss need for medication voucher/assistance. New scripts sent for furosemide, lisinopril, metoprolol and empagliflozin at d/c. Also to continue aspirin. (3) Elevated troponin Status: Acute Assessment & Plan: Appreciate Cardiology recommendations. Suspect secondary to a fib and CHF, no clear evidence of ischemia. (4) Bilateral pleural effusion Status: Chronic Assessment & Plan: Suspect secondary to CHF. (5) HTN (hypertension) Status: Chronic Assessment & Plan: BP currently borderline low, using low dose meds for heart failure. Qualifiers: Qualified Codes: I10 - Essential (primary) hypertension (6) HLD (hyperlipidemia) Status: Chronic (7) Persistent atrial fibrillation Status: Chronic Assessment & Plan: New Xarelto script written on d/c. Metoprolol prescribed and diltiazem discontinued. (8) History of substance abuse Status: Chronic Assessment & Plan: Reporting abstinence for a few months. Hospital Course Date of Admission: Jan 30, 2023 at 17:59 Admission Diagnosis : [facility] Date of Discharge: 02/02/23 Discharge Diagnosis: See problem list Hospital Course: See problem list Labs and Pending Lab Test: Laboratory Tests 02/02/23 05:57: White Blood Count 11.1H, Red Blood Count 5.10, Hemoglobin 13.3, Hematocrit 43, Mean Corpuscular Volume 84, Mean Corpuscular Hemoglobin 26, Mean Corpuscular Hemoglobin Concent 31L, Red Cell Distribution Width 20.5H, Platelet Count 214, Mean Platelet Volume 11.6, Immature Granulocyte % (Auto) 0, Neutrophils (%) (Auto) 78H, Lymphocytes (%) (Auto) 10L, Monocytes (%) (Auto) 9, Eosinophils (%) (Auto) 3, Basophils (%) (Auto) 1, Neutrophils # (Auto) 8.6H, Lymphocytes # (Auto) 1.1, Monocytes # (Auto) 1.0, Eosinophils # (Auto) 0.3, Basophils # (Auto) 0.1, Immature Granulocyte # (Auto) 0.1, Sodium Level 138, Potassium Level 3.8, Chloride Level 98, Carbon Dioxide Level 27, Anion Gap 13, Blood Urea Nitrogen 20H, Creatinine 0.98, Estimat Glomerular Filtration Rate 98, BUN/Creatinine Ratio 20, Glucose Level 86, Calcium Level 9.5, Corrected Calcium 9.7, Phosphorus Level 4.8H, Magnesium Level 2.3, Total Bilirubin 1.2H, Aspartate Amino Transf (AST/SGOT) 23, Alanine Aminotransferase (ALT/SGPT) 21, Alkaline Phosphatase 235H , Total Protein 7.4, Albumin 3.8 Microbiology 01/30/23 MRSA Screen - Final, Complete Home Meds Active Xarelto (Rivaroxaban) 20 Mg Tablet 20 Mg PO HS Trazodone HCl 50 Mg Tablet 50 Mg PO HS Jardiance (Empagliflozin) 10 Mg Tablet 10 Mg PO DAILY Famotidine 20 Mg Tablet 20 Mg PO BID Pantoprazole Sodium 40 Mg Tablet.dr 40 Mg PO DAILY Lasix (Furosemide) 80 Mg Tablet 80 Mg PO BID Children's Aspirin (Aspirin) 81 Mg Tab.chew 81 Mg PO DAILY Lisinopril 2.5 Mg Tablet 2.5 Mg PO DAILY Metoprolol Succinate 25 Mg Tab.er.24h 25 Mg PO DAILY Assessment/Pt DC Instructions Follow up with Dr. Bejarano as directed. Follow up with primary physician within a week of discharge. Discharge Diet: Low Sodium Diet Activity as Tolerated: Yes Discharge Physical Examination Allergies: Coded Allergies: hydrocodone (Verified Allergy, Severe, ITCHING, 08/05/22) spironolactone (Verified Allergy, Mild, 01/30/23) breast tendernes/swelling Penicillins (Verified Allergy, Unknown, 11/09/20) General Appearance: No Apparent Distress, WD/WN Respiratory: Lungs Clear, Normal Breath Sounds Cardiovascular: Regular Rate, Rhythm, No Murmur Extremity: No Pedal Edema Skin: Normal Color, Warm/Dry Neurologic/Psychiatric: Alert, Normal Mood/Affect JB VALDEZ MD Feb 02, 2023 14:08
== END 2023-02-02 16:02 | disposition home or self-care (01) ==
LOC: EDUNIT# 14:05 → ER 14:08 → INTOOBSV 17:59 → ICU 17:59 → 4TH 01-31 16:11
PROVIDERS: ADMIT Internal Medicine; ATTEND Family Medicine
DX: I11.0 Hypertensive heart disease with heart failure (principal); I50.23 Acute on chronic systolic (congestive) heart failure; I42.8 Other cardiomyopathies; F17.210 Nicotine dependence, cigarettes, uncomplicated; I48.19 Other persistent atrial fibrillation; I48.92 Unspecified atrial flutter; R77.8 Other specified abnormalities of plasma proteins; J44.9 Chronic obstructive pulmonary disease, unspecified; E78.5 Hyperlipidemia, unspecified; I25.10 Atherosclerotic heart disease of native coronary artery without angina pectoris; I08.1 Rheumatic disorders of both mitral and tricuspid valves; F10.10 Alcohol abuse, uncomplicated; R74.8 Abnormal levels of other serum enzymes; F15.10 Other stimulant abuse, uncomplicated; Z82.49 Family history of ischemic heart disease and other diseases of the circulatory system; Z79.01 Long term (current) use of anticoagulants; Z91.148 Patient's other noncompliance with medication regimen for other reason; Z79.899 Other long term (current) drug therapy; Z88.5 Allergy status to narcotic agent; Z88.0 Allergy status to penicillin; Z88.8 Allergy status to other drugs, medicaments and biological substances
CPT/HCPCS: 36415; 71045; 71046; 80053; 80061; 80306; 81000; 82947; 83735; 83880; 84100; 84484; 85007; 85025; 85027; 86141; 87081; 93005; 94664; 94760; 96366; 96375; 96376; G0378

== ENCOUNTER 2023-02-16 21:17 | Observation (INO) | payer OTHER ==
[~2023-02-16] VITALS: Ht 180.3 cm; Wt 102.3 kg
[~2023-02-16 21:17] MED LIST changes: +ASPI81TA64 PO; -D-ME473S11 PO; +FAMO20TA5 PO; +FURO80TA3 PO; +FURO80TA83 PO; +PROM473S15 PO
[2023-02-16] MEDS ORDERED: ASPIRIN 81 MG CHEW (CHILDREN'S ASA) PO ONE (21:30)
[2023-02-16] MEDS ORDERED: NITROGLYCERIN 0.4 MG SL TABS BTL 25'S SL PRN (21:30)
[2023-02-16 21:40] LABS: BASOPHILS # (AUTO) 0.1 10^3/uL (0.0-0.1); BASOPHILS % (AUTO) 1 % (0-10); EOSINOPHILS # (AUTO) 0.5 10^3/uL (0.0-0.3); EOSINOPHILS % (AUTO) 4 % (0-10); HEMATOCRIT 46 % (40-54); HEMOGLOBIN 14.7 g/dL (13.3-17.7); LYMPHOCYTES # (AUTO) 1.6 10^3/uL (1.0-4.0); LYMPHOCYTES % (AUTO) 13 % (12-44); MEAN CORPUSCULAR HEMOGLOBIN 27 pg (25-34); MEAN CORPUSCULAR HGB CONC 32 g/dL (32-36); MEAN CORPUSCULAR VOLUME 85 fL (80-99); MEAN PLATELET VOLUME 11.1 fL (9.0-12.2); MONOCYTES # (AUTO) 1.2 10^3/uL (0.0-1.0); MONOCYTES % (AUTO) 10 % (0-12); NEUTROPHILS # (AUTO) 8.6 10^3/uL (1.8-7.8); NEUTROPHILS % (AUTO) 72 % (42-75); PLATELET COUNT 239 10^3/uL (130-400)
--- NOTE | 2023-02-16 21:41 | ED Chest Pain ---
General Chief Complaint: Chest Pain Stated Complaint: CHEST PAIN Nursing Triage Note: PATIENT COMPLAINT OF CHEST PAIN, STATES STARTED 1 HOUR [employer]. PATIENT STATES SITTING OUTSIDE, SMOKED CIG. STATES FIRST CIG IN A WHILE. PATIENT STATES LEFT SIDED CHEST PAIN WITH LEFT FACE NUMBNESS AND LEFT ARM PAIN. Source: patient, old records History of Present Illness Date Seen by Provider: February 16, 2023 Time Seen by Provider: 21:22 Initial Comments PT ARRIVES VIA POV FROM HOME C/O CHEST PAIN THAT BEGAN 1 HOUR AGO, WHILE SITTING ON PORCH SMOKING A CIGARETTE PAIN WAXES AND WANES, BUT DOES NOT GO AWAY. RATES PAIN 7/10 NOW, WAS 07/19 PAIN GOES INTO HIS LEFT ARM AND HIS FACE FEELS NUMB + SWEATS + NAUESA, NO VOMITING + DIZZINESS, NO SYNCOPE NO PALPITATIONS NO SWELLING IN LEGS/FEET OR PAIN IN CALVES PT HAS HISTORY OF HTN, ATRIAL FIBRILLATION / FLUTTER AND CHF HE IS SUPPOSED TO HAVE A CARDIAC ABLATION IN THE FUTURE. PT HAS STATED THIS ON EVERY VISIT SINCE 2020 HE HAS BEEN RECENTLY ADMITTED HERE FOR CARDIAC ISSUES=01/16-01/21/23 FOR CHF, AND AGAIN 01/30-02/02/23 FOR CHF / RESP FAILURE. HE IS CURRENTLY ON XARELTO, AND 81 MG ASPIRIN, IN ADDITION TO OTHER CARDIAC MEDICATIONS HE DENIES ANY MISSED DOSES OF MEDICATIONS. HE HAS NOT TAKEN HIS EVENING MEDICATIONS TONIGHT PT WITH MULTIPLE VISITS, SINCE HE MOVED HERE IN 10/2020 FROM [facility] LONG HISTORY OF NON-COMPLIANCE IN ALL ASPECTS OF CARE LONG HISTORY OF POLYSUBSTANCE ABUSE INCLUDING METHAMPHETAMINES AND ALCOHOL--PT STATES HE HAS BEEN "CLEAN FOR 90 DAYS". PCP: [facility] [place]: DR. SILVA Allergies and Home Medications Allergies Coded Allergies: hydrocodone (Verified Allergy, Severe, ITCHING, 08/05/22) spironolactone (Verified Allergy, Mild, 01/30/23) breast tendernes/swelling Penicillins (Verified Allergy, Unknown, 11/09/20) Patient Home Medication List Home Medication List Reviewed: Yes Aspirin (Children's Aspirin) 81 Mg Tab.chew, 81 MG PO DAILY Prescribed by: ANN RHOADES on 02/02/23 09 Empagliflozin (Jardiance) 10 Mg Tablet, 10 MG PO DAILY Prescribed by: ANN RHOADES on 02/02/23 0940 Famotidine (Famotidine) 20 Mg Tablet, 20 MG PO BID Prescribed by: ANN RHOADES on 02/02/23939 Furosemide (Lasix) 80 Mg Tablet, 80 MG PO BID Prescribed by: ANN RHOADES on 02/02/23939 Lisinopril (Lisinopril) 2.5 Mg Tablet, 2.5 MG PO DAILY Prescribed by: ANN RHOADES on 02/02/23939 Metoprolol Succinate (Metoprolol Succinate) 25 Mg Tab.er.24h, 25 MG PO DAILY Prescribed by: ANN RHOADES on 02/02/23 09 Pantoprazole Sodium (Pantoprazole Sodium) 40 Mg Tablet.dr, 40 MG PO DAILY Prescribed by: ANN RHOADES on 02/02/23939 Rivaroxaban (Xarelto) 20 Mg Tablet, 20 MG PO HS Prescribed by: JB VALDEZ on 02/02/23 140 Trazodone HCl (Trazodone HCl) 50 Mg Tablet, 50 MG PO HS Prescribed by: JB VALDEZ on 02/02/23 140 Review of Systems Review of Systems Constitutional: see HPI, diaphoresis, dizziness EENTM: No Symptoms Reported Respiratory: See HPI, Shortness of Air Cardiovascular: See HPI, Chest Pain; Denies Edema, Denies Irregular Heart Rate; Lightheadedness; Denies Palpitations, Denies Syncope Gastrointestinal: Denies Abdominal Pain; Nausea Past Ocmzvwg-Oaltxx-Dbozzc Hx Patient Social History Tobacco Use?: Yes Tobacco type used: Cigarettes Smoking Status: Current Everyday Smoker Substance use?: Yes Substance type: Methamphetamine Alcohol Use?: Yes Alcohol type: Beer, Hard Liquor Immunizations Up To Date Tetanus Booster (TDap): Unknown Influenza Vaccine Up-to-Date: No; Not Current First/Initial COVID19 Vaccinat: N/A Second COVID19 Vaccination [place]: N/A Third COVID19 Vaccination Date: N/A Past Medical History Surgery/Hospitalization HX: A-FIB, CHF, AFLUTTER Surgeries: Yes (HERNIA REPAIR; THORACENTESIS 01/18/23) Abdominal, Appendectomy Respiratory: Yes (PLEURAL EFFUSION/THORACENTESIS) Cardiac: Yes (CHF 30-35% EF AT LOWEST; ATRIAL FIB/FLUTTER; CHF) Atrial Fibrillation, Cardiomyopathy, High Cholesterol, Hypertension Neurological: No Genitourinary: No Gastrointestinal: Yes Gastroesophageal Reflux Musculoskeletal: No Endocrine: Yes (OBESITY, borderline diabetes) HEENT: No Cancer: No Psychosocial: Yes (SUBSTANCE ABUSE) Integumentary: Yes (TATTOOS) Blood Disorders: No Family Medical History Heart Disease, Diabetes SOCIAL HISTORY: -ETOH--REGULAR USE -DRUGS--METHAMPHETAMINES -SMOKES 1 PPD PAST SURGICAL HISTORY: -APPENDECTOMY -HERNIA REPAIR -CARDIOVERSIONS ECHOCARDIOGRAM 11/13/20--EF 30-35%, NO REGIONAL WALL MOTION ABNORMALITIES. EXTREME NON-COMPLIANCE IN ALL ASPECTS OF CARE Physical Exam Vital Signs Vital Signs - First Documented 02/16/23 02/16/23 21:22 21:25 Temp 36.4 Pulse 80 Resp 18 B/P (MAP) 138/105 (116) Pulse Ox 97 O2 Delivery Room Air O2 Flow Rate 2.00 Capillary Refill : Less Than 3 Seconds Height, Weight, BMI Height: '" Weight: lbs. oz. kg; 30.00 BMI Method: General Appearance: No Apparent Distress, WD/WN, Anxious (VERY ANXIOUS WITH CONSTANT MOVEMENTS OF ENTIRE BODY), Obese, Other (REEKS OF CIGARETTES) HEENT: PERRL/EOMI Neck: Normal Inspection; No Carotid Bruit, No JVD Respiratory: Chest Non Tender, Normal Breath Sounds, No Accessory Muscle Use, No Respiratory Distress Cardiovascular: Regular Rate, Rhythm, No Edema, No JVD, No Murmur, Normal Peripheral Pulses Gastrointestinal: Normal Bowel Sounds, No Organomegaly, No Pulsatile Mass, Non Tender, Soft Extremity: Normal Capillary Refill, Normal Inspection, Normal Range of Motion, Non Tender, No Calf Tenderness, No Pedal Edema Neurologic/Psychiatric: Alert, Oriented x3, No Motor/Sensory Deficits, cancer program director II- XII Norm as Tested, Other (VERY ANXIOUS WITH CONSTANT MOVEMENTS) Skin: Normal Color, Warm/Dry Procedures/Interventions Date of ETT Placement: Oct 08, 2022 Time of ETT Placement: 1526 Progress/Results/Core Measures Results/Orders Lab Results Laboratory Tests Test 02/16/23 21:25 02/16/23 23:00 02/17/23 00:25 Range/Units White Blood Count 12.0 H 4.3-11.0 10^3/uL Red Blood Count 5.49 4.30-5.52 10^6/uL Hemoglobin 14.7 13.3-17.7 g/dL Hematocrit 46 40-54 % Mean Corpuscular Volume 85 80-99 fL Mean Corpuscular Hemoglobin 27 25-34 pg Mean Corpuscular Hemoglobin Concent 32 32-36 g/dL Red Cell Distribution Width 20.5 H 10.0-14.5 % Platelet Count 239 130-400 10^3/uL Mean Platelet Volume 11.1 9.0-12.2 fL Immature Granulocyte % (Auto) 0 % Neutrophils (%) (Auto) 72 42-75 % Lymphocytes (%) (Auto) 13 12-44 % Monocytes (%) (Auto) 10 0-12 % Eosinophils (%) (Auto) 4 0-10 % Basophils (%) (Auto) 1 0-10 % Neutrophils # (Auto) 8.6 H 1.8-7.8 10^3/uL Lymphocytes # (Auto) 1.6 1.0-4.0 10^3/uL Monocytes # (Auto) 1.2 H 0.0-1.0 10^3/uL Eosinophils # (Auto) 0.5 H 0.0-0.3 10^3/uL Basophils # (Auto) 0.1 0.0-0.1 10^3/uL Immature Granulocyte # (Auto) 0.1 0.0-0.1 10^3/uL Prothrombin Time 15.5 H 12.2-14.7 SEC INR Comment 1.2 0.8-1.4 Activated Partial Thromboplast Time 37 H 24-35 SEC D-Dimer 0.46 0.00-0.49 UG/ML Sodium Level 138 135-145 MMOL/L Potassium Level 3.1 L 3.6-5.0 MMOL/L Chloride Level 103 98-107 MMOL/L Carbon Dioxide Level 22 21-32 MMOL/L Anion Gap 13 5-14 MMOL/L Blood Urea Nitrogen 21 H 7-18 MG/DL Creatinine 1.13 0.60-1.30 MG/DL Estimat Glomerular Filtration Rate 83 BUN/Creatinine Ratio 19 Glucose Level 155 H 70-105 MG/DL Calcium Level 9.3 8.5-10.1 MG/DL Corrected Calcium 8.9 8.5-10.1 MG/DL Magnesium Level 2.1 1.6-2.4 MG/DL Total Bilirubin 0.9 0.1-1.0 MG/DL Aspartate Amino Transf (AST/SGOT) 34 5-34 U/L Alanine Aminotransferase (ALT/SGPT) 34 0-55 U/L Alkaline Phosphatase 237 H 40-136 U/L Total Creatine Kinase 237 H 30-200 U/L Creatine Kinase MB 5.1 <6.6 NG/ML Myoglobin 71.0 10.0-92.0 NG/ML Troponin I < 0.028 0.028 <0.028 NG/ML B-Type Natriuretic Peptide 630.6 H <100.0 PG/ML Total Protein 8.0 6.4-8.2 GM/DL Albumin 4.5 3.2-4.5 GM/DL Amylase Level 27 25-125 U/L Lipase 21 8-78 U/L Serum Alcohol < 10 <10 MG/DL Urine Color YELLOW Urine Clarity CLEAR Urine pH 5.5 5-9 Urine Specific [place] 1.025 H 1.016-1.022 Urine Protein 1+ H NEGATIVE Urine Glucose (UA) 3+ H NEGATIVE Urine Ketones NEGATIVE NEGATIVE Urine Nitrite NEGATIVE NEGATIVE Urine Bilirubin NEGATIVE NEGATIVE Urine Urobilinogen 1.0 < = 1.0 MG/DL Urine Leukocyte Esterase NEGATIVE NEGATIVE Urine RBC (Auto) NEGATIVE NEGATIVE Urine RBC 0-2 /HPF Urine WBC 0-2 /HPF Urine Squamous Epithelial Cells RARE /HPF Urine Crystals NONE /LPF Urine Bacteria TRACE /HPF Urine Casts NONE /LPF Urine Mucus SMALL H /LPF Urine Culture Indicated NO Urine Opiates Screen NEGATIVE NEGATIVE Urine Oxycodone Screen NEGATIVE NEGATIVE Urine Methadone Screen NEGATIVE NEGATIVE Urine Propoxyphene Screen NEGATIVE NEGATIVE Urine Barbiturates Screen NEGATIVE NEGATIVE Ur Tricyclic Antidepressants Screen NEGATIVE NEGATIVE Urine Phencyclidine Screen NEGATIVE NEGATIVE Urine Amphetamines Screen NEGATIVE NEGATIVE Urine Methamphetamines Screen NEGATIVE NEGATIVE Urine Benzodiazepines Screen NEGATIVE NEGATIVE Urine Cocaine Screen NEGATIVE NEGATIVE Urine Cannabinoids Screen NEGATIVE NEGATIVE My Orders Orders - JULIANO ALFONSO K DO Ekg Tracing (02/16/23 21:21) Cbc With Automated Diff (02/16/23 21:22) Magnesium (02/16/23 21:22) Chest 1 View, Ap/Pa Only (02/16/23 21:22) Ekg Tracing (02/16/23 21:22) Comprehensive Metabolic Panel (02/16/23 21:22) Myoglobin Serum (02/16/23 21:22) Protime With Inr (02/16/23 21:22) Partial Thromboplastin Time (02/16/23 21:22) O2 (02/16/23 21:22) Monitor-Rhythm Ecg Trace Only (02/16/23 21:22) Ed Iv/Invasive Line Start (02/16/23 21:22) Creatine Kinase (02/16/23 21:22) Creatine Kinase Mb (02/16/23 21:22) Lipase (02/16/23 21:22) Amylase (02/16/23 21:22) Bnp Patricia (02/16/23 21:22) Nitroglycerin 0.4 Mg Btl 25's (Nitrostat (02/16/23 21:30) Aspirin Chewable Tablet (Baby Aspirin Ch (02/16/23 21:30) Drug Screen Stat (Urine) (02/16/23 21:30) Ua Culture If Indicated (02/16/23 21:30) Fibrin Degradation Products (02/16/23 21:22) Troponin I Patricia (02/16/23 21:22) Ondansetron Injection (Zofran Injectio (02/16/23 21:45) Alcohol (02/16/23 21:22) Furosemide Injection (Lasix Injection) (02/16/23 22:30) Potassium Chloride (Tablet) (Klor Con Ta (02/16/23 22:30) Ketorolac Injection (Toradol Injection) (02/16/23 22:30) Lorazepam Tablet (Ativan Tablet) (02/16/23 22:50) Fentanyl Inj (Sublimaze Injection) (02/16/23 23:30) Ekg Tracing (02/17/23 00:19) Troponin I [place] (02/17/23 00:19) Medications Given in ED Current Medications Medications Dose Ordered Sig/[place] Route Start Time Stop Time Status Last Admin Dose Admin Aspirin 324 mg ONCE ONCE PO 02/16/23 21:30 02/16/23 21:31 DC 02/16/23 21:30 324 MG Fentanyl Citrate 50 mcg ONCE ONCE IVP 02/16/23 23:30 02/16/23 23:31 DC 02/16/23 23:24 50 MCG Furosemide 40 mg ONCE ONCE IVP 02/16/23 22:30 02/16/23 22:31 DC 02/16/23 22:40 40 MG Ketorolac Tromethamine 30 mg ONCE ONCE IVP 02/16/23 22:30 02/16/23 22:31 DC 02/16/23 22:40 30 MG Nitroglycerin 0.4 mg UD PRN SL 02/16/23 21:30 02/16/23 21:31 0.4 MG Ondansetron HCl 4 mg ONCE ONCE IVP 02/16/23 21:45 02/16/23 21:46 DC 02/16/23 21:54 4 MG Potassium Chloride 40 meq ONCE ONCE PO 02/16/23 22:30 02/16/23 22:31 DC 02/16/23 22:39 40 MEQ Vital Signs/I&O 02/16/23 02/16/23 02/17/23 02/17/23 21:22 21:25 02:12 02:15 Temp 36.4 Pulse 80 69 74 Resp 18 19 B/P (MAP) 138/105 (116) 116/76 120/87 (98) Pulse Ox 97 98 99 96 O2 Delivery Room Air Nasal Cannula Nasal Cannula Room Air O2 Flow Rate 2.00 2.00 Blood Pressure Mean: 116 Progress Progress Note : Progress Note GIVEN: -ASPIRIN -NITROGLYCERINE X 1--PAIN ALMOST GONE, BUT THEN STARTED TO COME BACK, BUT DECLINES ANY MORE NTG DUE TO HEADACHE. RATES HIS PAIN BACK UP TO A 6/10 -TORADOL--PT STATES EVEN BEFORE IT IS GIVEN THAT IT WON'T WORK. -LASIX + KCL -ATIVAN --PT REQUESTS THIS FOR ANXIETY -FENTANYL FOR PAIN, PT STATES HIS PAIN IS STILL A "6-7"/10 CLAIMS NO RELIEF FROM FENTANYL--WANTING OXYCODONE--STATES "THAT IS THE ONLY TH ING THAT HELPS" --ADVISED HIM I WOULD NOT BE GIVING HIM OXYCODONE AT THIS TIME. WILL DO 3 HOUR REPEAT EKG AND TROPONIN, INITIAL TROPONIN IS NEGATIVE AND INITIAL EKG IS UNCHANGED FROM PREVIOUS. REPEAT TROPONIN IS STILL NEGATIVE. AND REPEAT EKG SHOWS INTERMITTENT A FLUTTER, WITH UNCHANGED ST SEGMENTS. PT CONTINUES TO C/O PAIN, SO WILL ADMIT FOR FURTHER EVALUATION. PT IS AGREEABLE TO PLAN HAVE REVIEWED ALL TEST RESULTS WITH PT. REVIEWED PRIOR RECORDS, INCLUDING ER VISITS, ADMITS/H&P'S/CONSULTS/DISCHARGE SUMMARIES, TESTS/PROCEDURES. Initial ECG Impression Date: February 16, 2023 Initial ECG Impression Time: 21:25 Initial ECG Rate: 80 Initial ECG Rhythm: Normal Sinus Initial ECG Intervals MO 218 QRS 133 QT/QTC 409/445 Initial ECG Impression: Nonspecific Changes Initial ECG Comparisson: Unchanged Comment INTERPRETED BY ME PT HAS CHRONIC P WAVE CHANGES, AN D ST SEGMENT CHANGES, THAT ARE UNCHANGED FROM PREVIOUS EKGS EKG : EKG Time: 00:34 Rate: 77 Comment INTERMITTENT ATRIAL FLUTTER ( PT HAS CHRONIC AFIB/FLUTTER ) WITH UNCHANGED ST SEGMENTS. INTERPRETED BY ME Diagnostic Imaging Comments CXR--PER RADIOLOGIST REPORT AT 2152 FINDINGS: There is cardiomegaly. There is mild central vascular prominence with chronic appearing increased interstitial markings. There are old right-sided rib fractures. There is no new infiltrate or pneumothorax or pleural fluid. IMPRESSION: Cardiomegaly and central vascular congestion with chronic appearing increased interstitial markings. Old right-sided rib fractures. No new infiltrate or pleural fluid. Reviewed: Reviewed by Me Departure Communication (Admissions) 0107--SPOKE WITH DR. LINK, ACCEPTS PT FOR ADMIT. WILL CONSULT CARDIOLOGY IN AM. Impression Primary Impression: Chest pain Additional Impressions: Chronic CHF CHRONIC ATRIAL FIBRILLATION / ATRIAL FLUTTER Non-insulin dependent diabetes mellitus History of substance abuse History of alcoholism HTN (hypertension) Disposition: ADMITTED INPATIENT Condition: Stable Admissions Decision to Admit Reason: Admit from ER (General) Decision to Admit/Date: February 17, 2023 Time/Decision to Admit Time: 01:05 Departure-Patient Inst. Referrals: [facility] (PCP/Family) Primary Care Physician JULIANO ALFONSO DO February 16, 2023 21:41
[2023-02-16] MEDS ORDERED: ONDANSETRON 4 MG/2 ML (SDV) Z0FRAN IVP ONE (21:45)
--- NOTE | 2023-02-16 21:48 | Diagnostic Imaging Report ---
INDICATION: Chest pain. EXAMINATION: Frontal chest was obtained at 9:24 p.m. COMPARISON: 01/11/2023. FINDINGS: There is cardiomegaly. There is mild central vascular prominence with chronic appearing increased interstitial markings. There are old right-sided rib fractures. There is no new infiltrate or pneumothorax or pleural fluid. IMPRESSION: Cardiomegaly and central vascular congestion with chronic appearing increased interstitial markings. Old right-sided rib fractures. No new infiltrate or pleural fluid. Dictated by: Dictated on workstation # [id number]
[2023-02-16 21:55] LABS: INR 1.2 (0.8-1.4); PROTHROMBIN TIME PATIENT 15.5 SEC (12.2-14.7)
[2023-02-16 21:58] LABS: FIBRIN DEGRADATION PRODUCTS 0.46 UG/ML (0.00-0.49)
[2023-02-16 22:07] LABS: ALANINE AMINOTRANSFERASE 34 U/L (0-55); ALBUMIN 4.5 GM/DL (3.2-4.5); ALKALINE PHOSPHATASE 237 U/L (40-136); AMYLASE 27 U/L (25-125); BILIRUBIN,TOTAL 0.9 MG/DL (0.1-1.0); BUN/CREATININE RATIO 19; CALCIUM 9.3 MG/DL (8.5-10.1); CARBON DIOXIDE 22 MMOL/L (21-32); CHLORIDE 103 MMOL/L (98-107); CREATINE KINASE 237 U/L (30-200); CREATININE SERUM 1.13 MG/DL (0.60-1.30); GFR ESTIMATED 83; GLUCOSE 155 MG/DL (70-105); LIPASE 21 U/L (8-78); MAGNESIUM 2.1 MG/DL (1.6-2.4); POTASSIUM 3.1 MMOL/L (3.6-5.0); SODIUM 138 MMOL/L (135-145)
[2023-02-16 22:15] LABS: CREATINE KINASE MB 5.1 NG/ML (<6.6)
[2023-02-16] MEDS ORDERED: FUROSEMIDE 40 MG/4 ML INJ (LASIX) IVP ONE (22:30)
[2023-02-16] MEDS ORDERED: KETOROLAC 30 MG/ML VIAL IVP ONE (22:30)
[2023-02-16] MEDS ORDERED: KCL 10 MEQ TAB (MICRO K) PO ONE (22:30)
[2023-02-16] MEDS ORDERED: LORazepam 0.5 MG (ATIVAN) TABLET PO STA (22:50)
[2023-02-16 23:04] LABS: BILIRUBIN,URINE NEGATIVE (NEGATIVE); CLARITY,URINE CLEAR; COLOR,URINE YELLOW; GLUCOSE, URINE (UA) 3+ (NEGATIVE); KETONES,URINE NEGATIVE (NEGATIVE); LEUKOCYTE ESTERASE ,URINE NEGATIVE (NEGATIVE); NITRITE,URINE NEGATIVE (NEGATIVE); PH,URINE 5.5 (5-9); PROTEIN,URINE 1+ (NEGATIVE)
[2023-02-16 23:14] LABS: BACTERIA,URINE TRACE /HPF; RBC,URINE 0-2 /HPF; SQUAMOUS EPITHELIAL CELL,UR RARE /HPF; WBC,URINE 0-2 /HPF
[2023-02-16 23:17] LABS: AMPHETAMINE SCREEN, URINE NEGATIVE (NEGATIVE); BARBITURATE SCREEN URINE NEGATIVE (NEGATIVE); BENZODIAZEPINES SCREEN URINE NEGATIVE (NEGATIVE); CANNABINOID SCREEN, URINE NEGATIVE (NEGATIVE); COCAINE SCREEN URINE NEGATIVE (NEGATIVE); METHADONE STAT NEGATIVE (NEGATIVE); OPIATE SCREEN URINE NEGATIVE (NEGATIVE); OXYCODONE STAT NEGATIVE (NEGATIVE); PROPOXYPHENE STAT NEGATIVE (NEGATIVE); TRICYCLIC ANTIDEPRESSANTS SCRE NEGATIVE (NEGATIVE)
[2023-02-16] MEDS ORDERED: fentaNYL INJ 100 MCG/2 ML AMP IVP ONE (23:30)
[2023-02-17] MEDS: morphine INJ 4 MG/ML 1 ML (VIAL/SYRINGE) IV PRN ×3 (03:08→11:31)
[2023-02-17] MEDS ORDERED: NITROGLYCERIN 0.4 MG SL TABS BTL 25'S SL PRN (03:15)
[2023-02-17] MEDS ORDERED: ONDANSETRON 4 MG/2 ML (SDV) Z0FRAN IV PRN (03:15)
[2023-02-17] MEDS ORDERED: CATHETER FLUSH 10 ML SYR IVP PRN (03:15)
[2023-02-17 03:30] VITALS: BP 105/68
[2023-02-17] MEDS ORDERED: CATHETER FLUSH 10 ML SYR IVP SCH (06:00)
[2023-02-17] MEDS ORDERED: FURO40TA4 PO (07:57)
--- NOTE | 2023-02-17 07:59 | Consultation-Cardiology ---
HPI-Cardiology Cardiology Consultation: Date of Consultation 02/17/23 Time Seen by a Provider: 08:05 Date of Admission Attending Physician [place] Admitting Physician Admitting Physician: Meghana Abebe MD Attending Physician: Meghana Abebe MD Consulting Physician Jeannette Bejarano MD HPI: Chief Complaint: Chest pain Mr. Valerio is a 42 yr old male admitted to ICU 2 from the ED with c/o localized, left sided chest pain that radiates through to his back. He reports he was sitting outside smoking a cigarette (after he has not smoked in several weeks); he reports he became dizzy, nauseated and began having sharp, stabbing pains. He reports the pain has been constant since yesterday evening. He reports it is worse with moving his arm across his chest. He does acknowledge chest discomfort with palpation of the area that he is reporting chest pain. He denies any relief with nitro. He does report some relief with IV Morphine. He reports chronic SOB, but states he felt a little more SOB last night when walking to the car to come to the ED. He denies any diaphoresis. No LE swelling. He reports he has been compliant with his medications. He reports he has been eating foods high in sodium at work, such as chips and burritos out of the vending machines. He reports he has been refraining from alcohol and street drug usage. Review of Systems-Cardiology Review of Systems Constitutional: No chills, No fever; lightheadedness; No malaise Eyes: No vision change Ears/Nose/Throat: No epistaxis, No recent hearing loss Respiratory: As described under HPI Cardiovascular: As described under HPI Gastrointestinal: As described under HPI Genitourinary: No dysuria, No hematuria Musculoskeletal: no symptoms reported Skin: No rash on exposed areas, No ulcerations on exposed areas Psychiatric/Neurological: anxiety, depression; No seizure, No focal weakness, No syncope Hematologic: No bleeding abnormalities ULA-Wwppug-Ifgosh Hx Patient Social History Smoking Status: Current Everyday Smoker 2nd Hand Smoke Exposure: Yes Have you traveled recently?: Yes Alcohol Use?: No Substance type: Methamphetamine Pt feels they are or have been: No Tobacco type used: Cigarettes Immunizations Up To Date Tetanus Booster (TDap): Unknown Date of Influenza Vaccine: Aug 09, 2020 Past Medical History PMH As described under Assessment. Family Medical History Family Medical History: He states his father and brother both had hypertrophic cardiomyopathy. They both from the condition. His brother actually had a heart transplant and then . Allergies and Home Medications Allergies Coded Allergies: hydrocodone (Verified Allergy, Severe, ITCHING, 08/05/22) spironolactone (Verified Allergy, Mild, 01/30/23) breast tendernes/swelling Penicillins (Verified Allergy, Unknown, 11/09/20) Patient Home Medication List Aspirin (Children's Aspirin) 81 Mg Tab.chew, 81 MG PO DAILY Prescribed by: ANN RHOADES on 02/02/23939 Last Action: Reviewed Empagliflozin (Jardiance) 10 Mg Tablet, 10 MG PO DAILY Prescribed by: ANN RHOADES on 02/02/23939 Last Action: Reviewed Famotidine (Famotidine) 20 Mg Tablet, 20 MG PO BID Prescribed by: ANN RHOADES on 02/02/23939 Last Action: Reviewed Furosemide (Furosemide) 40 Mg Tablet, 40 MG PO BID, (Reported) Entered as Reported by: TRI JACQUES on 02/17/23 092 Last Action: New Order Lisinopril (Lisinopril) 2.5 Mg Tablet, 2.5 MG PO DAILY Prescribed by: ANN RHOADES on 02/02/23939 Last Action: Reviewed Metoprolol Succinate (Metoprolol Succinate) 25 Mg Tab.er.24h, 25 MG PO DAILY Prescribed by: ANN RHOADES on 02/02/23939 Last Action: Reviewed Pantoprazole Sodium (Pantoprazole Sodium) 40 Mg Tablet.dr, 40 MG PO DAILY Prescribed by: ANN RHOADES on 02/02/23939 Last Action: Reviewed Rivaroxaban (Xarelto) 20 Mg Tablet, 20 MG PO HS Prescribed by: JB VALDEZ on 02/02/231402 Last Action: Reviewed Trazodone HCl (Trazodone HCl) 50 Mg Tablet, 50 MG PO HS Prescribed by: JB VALDEZ on 02/02/231402 Last Action: Reviewed Discontinued Medications Furosemide (Lasix) 80 Mg Tablet, 80 MG PO BID Discontinued Reason: No Longer Taking Prescribed by: ANN RHOADES on 02/02/23939 Last Action: Discontinued Physical Exam-Cardiology Physical Exam Vital Signs/I&O 5/1002/16/23 02/17/23 02/17/23 21:22 21:25 02:12 02:15 Temp 36.4 Pulse 80 69 74 Resp 18 19 B/P (MAP) 138/105 (116) 116/76 120/87 (98) Pulse Ox 97 98 99 96 O2 Delivery Room Air Nasal Cannula Nasal Cannula Room Air O2 Flow Rate 2.00 2.00 02/17/23 02/17/23 02/17/23 02/17/23 02:23 02:27 02:30 02:30 Temp 36.0 Pulse 70 75 75 Resp 20 B/P (MAP) 120/87 (99) 116/85 (95) 116/85 (95) Pulse Ox 96 96 O2 Delivery Room Air Room Air 02/17/23 02/17/23 02/17/23 02/17/23 02:35 02:36 02:45 02:45 Pulse 71 70 70 B/P (MAP) 109/68 (82) 109/68 (80) Pulse Ox 96 96 97 O2 Delivery Room Air Room Air 02/17/23 02/17/23 02/17/23 02/17/23 03:00 03:00 03:30 03:30 Pulse 72 70 68 68 Resp 20 16 B/P (MAP) 109/72 (84) 109/72 (82) 116/83 (94) 105/68 (80) Pulse Ox 96 95 95 93 O2 Delivery Room Air Room Air Room Air Room Air 02/17/23 02/17/23 02/17/23 02/17/23 04:00 04:00 05:00 06:00 Pulse 79 67 67 Resp 16 14 16 B/P (MAP) 90/56 (65) 97/64 (76) 86/48 (57) Pulse Ox 94 95 92 O2 Delivery Room Air 02/17/23 02/17/23 02/17/23 02/17/23 06:01 06:17 07:00 07:36 Temp 36.0 Pulse 68 76 69 Resp 16 B/P (MAP) 110/70 (83) 105/73 (84) Pulse Ox 96 O2 Delivery Room Air Room Air O2 Flow Rate 0.00 Capillary Refill : Less Than 3 Seconds Constitutional: AAO x 3, well-developed, well-nourished HEENT: PERRL, hearing is well preserved, oral hygience is good Neck: No carotid bruit; carotid pulses are 2 + bilaterally Respiratory: No accessory muscle use, No respiratory distress; chest expansion is symmetric, chest is bilaterally symmetric, lungs clear to auscultation Cardiovascular: irregularly irregular; No JVD; S1 and S2 Gastrointestinal: No tender; soft; No guarding; audible bowel sounds Extremities: no lower extremity edema bilateral Neurologic/Psychiatric: grossly intact (moves all extremities) Skin: No rash on exposed areas, No ulcerations on exposed areas Data Review Labs Laboratory Tests 02/16/23 21:25: White Blood Count 12.0H, Red Blood Count 5.49, Hemoglobin 14.7, Hematocrit 46, Mean Corpuscular Volume 85, Mean Corpuscular Hemoglobin 27, Mean Corpuscular Hemoglobin Concent 32, Red Cell Distribution Width 20.5H, Platelet Count 239, Mean Platelet Volume 11.1, Immature Granulocyte % (Auto) 0, Neutrophils (%) (Auto) 72, Lymphocytes (%) (Auto) 13, Monocytes (%) (Auto) 10, Eosinophils (%) (Auto) 4, Basophils (%) (Auto) 1, Neutrophils # (Auto) 8.6H, Lymphocytes # (Auto) 1.6, Monocytes # (Auto) 1.2H, Eosinophils # (Auto) 0.5H, Basophils # (Auto) 0.1, Immature Granulocyte # (Auto) 0.1, Prothrombin Time 15.5H, INR Comment 1.2, Activated Partial Thromboplast Time 37H, D-Dimer 0.46, Sodium Level 138, Potassium Level 3.1L, Chloride Level 103, Carbon Dioxide Level 22, Anion Gap 13, Blood Urea Nitrogen 21H, Creatinine 1.13, Estimat Glomerular Filtration Rate 83, BUN/Creatinine Ratio 19, Glucose Level 155H, Calcium Level 9.3, Corrected Calcium 8.9, Magnesium Level 2.1, Total Bilirubin 0.9, Aspartate Amino Transf (AST/SGOT) 34, Alanine Aminotransferase (ALT/SGPT) 34, Alkaline Phosphatase 237H, Total Creatine Kinase 237H, Creatine Kinase MB 5.1, Myoglobin 71.0, Troponin I < 0.028, B-Type Natriuretic Peptide 630.6H, Total Protein 8.0, Albumin 4.5, Amylase Level 27, Lipase 21, Serum Alcohol < 10 02/16/23 23:00: Urine Color YELLOW, Urine Clarity CLEAR, Urine pH 5.5, Urine Specific [place] 1.025H, Urine Protein 1+H, Urine Glucose (UA) 3+H, Urine Ketones NEGATIVE, Urine Nitrite NEGATIVE, Urine Bilirubin NEGATIVE, Urine Urobilinogen 1.0, Urine Leukocyte Esterase NEGATIVE, Urine RBC (Auto) NEGATIVE, Urine RBC 0-2, Urine WBC 0-2, Urine Squamous Epithelial Cells RARE, Urine Crystals NONE, Urine Bacteria TRACE, Urine Casts NONE, Urine Mucus SMALLH, Urine Culture Indicated NO, Urine Opiates Screen NEGATIVE, Urine Oxycodone Screen NEGATIVE, Urine Methadone Screen NEGATIVE, Urine Propoxyphene Screen NEGATIVE, Urine Barbiturates Screen NEGATIVE, Ur Tricyclic Antidepressants Screen NEGATIVE, Urine Phencyclidine Screen NEGATIVE, Urine Amphetamines Screen NEGATIVE, Urine Methamphetamines Screen NEGATIVE, Urine Benzodiazepines Screen NEGATIVE, Urine Cocaine Screen NEGATIVE, Urine Cannabinoids Screen NEGATIVE 02/17/23 00:25: Troponin I 0.028 02/17/23 04:28: Troponin I 0.030H, Triglycerides Level 79, Cholesterol Level 180, LDL Cholesterol Direct 130H, VLDL Cholesterol 16, HDL Cholesterol 43 Radiology NAME: PAL VALERIO [facility] REC#: [id number] PT STATUS: REG ER : 1980 PHYSICIAN: JULIANO ALFONSO DO ADMIT DATE: 02/16/23/ER Signed Date of Exam:02/16/23 CHEST 1 VIEW, AP/PA ONLY INDICATION: Chest pain. EXAMINATION: Frontal chest was obtained at 9:24 p.m. COMPARISON: 01/11/2023. FINDINGS: There is cardiomegaly. There is mild central vascular prominence with chronic appearing increased interstitial markings. There are old right-sided rib fractures. There is no new infiltrate or pneumothorax or pleural fluid. IMPRESSION: Cardiomegaly and central vascular congestion with chronic appearing increased interstitial markings. Old right-sided rib fractures. No new infiltrate or pleural fluid. Dictated by: Dictated on workstation # [id number] Dict: 02/16/232137 Trans: 02/16/232149 PJE [id number] Interpreted by: AXEL ROGER MD Electronically signed by: AXEL ROGER MD 02/16/232149 ECG Impression ECG Comment Atrial flutter A/P-Cardiology Assessment/Admission Diagnosis Chest pain - undetermined etiology - ? musculo-skeletal, tenderness with palpation Acute on chronic systolic CHF - continue diuretics Shortness of breath, cough, bilateral pleural effusion worse on the right - undetermined etiology - s/p thoracentesis on 01-18-[address] Tadeo (2150ml) H/O non-sustained WCT on 10/21/22 and 10/22/22 - probably aberrance during A Fib with RVR Acute on chronic systolic congestive heart failure - Echo was done in April 2022 with ejection fraction 40 to 45% with biatrial enlargement, moderate mitral regurgitation, pulmonary artery pressure 45 to 50 mmHg. - Echo of 10-11-[address] Hernandez showed LVEF 35-40%. Mod sized L pleural effusion. Mild MR. Mild to mod TR. - Echo on 10-26-22: LVEF 50-55%, mod biatrial enlargement, mod pleural eff Persistent atrial fibrillation/flutter - History of ablation done in [place] in late 2020, previously refusing any further ablation - Had previously been on Eliquis but had had compliance issues - Lately on Xarelto for stroke prophylaxis Nonischemic cardiomyopathy - cardiac catheterization done in [place] around 2019 did not show any obstructive disease. History of methamphetamine abuse. - currently refraining EtOH abuse - currently refraining Hyperlipidemia Tobaccoism - currently refraining History of noncompliance with medication or medical instructions History of elevated liver enzymes. - Probably underlying cirrhosis seen on CTA of the abdomen in the past. Discussion and Recomendations Chest pain of undetermined etiology - ?musculo-skeletal A-flutter with controlled HR - continue home medications including xarelto for stroke prohylaxis Continue HF medications Monitor lab Replace electrolytes as indicated Clinical Quality Measures AMI/AHF: ASA po Prior to arrival: Yes (81 MG THIS AM) ANN RHOADES February 17, 2023 07:59
[2023-02-17] MEDS ORDERED: KCL 10 MEQ TAB (MICRO K) PO NR ×2 (09:00→12:00)
[2023-02-17] MEDS ORDERED: EMPAGLIFLOZIN 10 MG TABLET (JARDIANCE) PO SCH (09:00)
[2023-02-17] MEDS ORDERED: FAMOTIDINE 20 MG (PEPCID) TABLET PO SCH (09:00)
[2023-02-17] MEDS ORDERED: FUROSEMIDE 40 MG/4 ML INJ (LASIX) IVP NR (09:00)
[2023-02-17] MEDS ORDERED: ASPIRIN E.C. 81 MG (ECOTRIN) TAB PO SCH (09:00)
[2023-02-17] MEDS ORDERED: lisINopril 5 MG (PRINIVIL) TABLET PO SCH (09:00)
[2023-02-17] MEDS ORDERED: PANTOPRAZOLE 40 MG (PROTONIX) TAB PO SCH (09:00)
[2023-02-17] MEDS ORDERED: ASPIRIN 81 MG CHEW (CHILDREN'S ASA) PO SCH (09:00)
[2023-02-17 09:22] LABS: CALCIUM 8.9 MG/DL (8.5-10.1); CREATININE SERUM 1.04 MG/DL (0.60-1.30); POTASSIUM 3.6 MMOL/L (3.6-5.0)
[2023-02-17] MEDS ORDERED: RIVA20TA2 PO (11:53)
[2023-02-17] MEDS ORDERED: TRZ50T PO (11:53)
[2023-02-17] MEDS ORDERED: EMPA10TA PO (11:53)
[2023-02-17] MEDS ORDERED: ASPI-1238 PO (11:53)
[2023-02-17] MEDS ORDERED: FURO80TA3 PO (11:53)
[2023-02-17] MEDS ORDERED: PANT40TA52 PO (11:53)
[2023-02-17] MEDS ORDERED: LISI2.5T13 PO (11:53)
[2023-02-17] MEDS ORDERED: MTP25TSR PO (11:53)
[2023-02-17] MEDS ORDERED: FAMO20TA5 PO (11:53)
[2023-02-17] MEDS ORDERED: oxyCODONE/APAP 7.5-325 MG (PERCOCET 7.5) TABLET PO PRN (12:30)
--- NOTE | 2023-02-17 12:30 | History & Physical ---
HPI History of Present Illness: 42 yo M well known to me that presents with chest pain. States that he was out smoking a cigarette and he started coughing and got dizzy. He had not smoked for over 3 weeks. Prior to that he was feeling well. States that he was only taking his lasix 40 mg BID instead of 80 mg BID that he was discharged home on. Denies any palpitations. States that he has not missed any of his medications. Has been going to work. Source: patient Exam Limitations: no limitations Date seen by provider: February 17, 2023 Time Seen by Provider: 09:15 Attending Physician [facility] PCP Admitting Physician: Jacoby Link MD Attending Physician: Jacoby Link MD Consult Date of Admission February 17, 2023 at 02:21 Home Medications Home Medications Reviewed patient Home Medication Reconciliation performed by pharmacy medication reconciliations regulatory and compliance technician and/or nursing. Patients Allergies have been reviewed. Allergies Coded Allergies: hydrocodone (Verified Allergy, Severe, ITCHING, 08/05/22) spironolactone (Verified Allergy, Mild, 01/30/23) breast tendernes/swelling Penicillins (Verified Allergy, Unknown, 11/09/20) KCY-Nzreuc-Vfxrkn Hx Patient Social History Living Status: Lives at home independently Drug of Choice: METHAMPHETAMINE, MARIJUANA Smoking Status: Current Everyday Smoker 2nd Hand Smoke Exposure: Yes Recent Hopitalizations: No Alcohol Use?: No Substance type: Methamphetamine Tobacco type used: Cigarettes Have you traveled recently?: Yes Immunizations Up To Date Tetanus Booster (TDap): Unknown Influenza Vaccine Up-to-Date: Yes; Up-to-Date First/Initial COVID19 Vaccinat: N/A Second COVID19 Vaccination [place]: N/A Third COVID19 Vaccination Date: N/A Past Medical History PMHx: Atrial fibrillation/atrial flutter Meth use Congestive heart failure HTN SurgHx: Appendectomy Family Medical History Significant Family History: Heart Disease, Diabetes Other Significan Family Hx: SOCIAL HISTORY: -ETOH--REGULAR USE -DRUGS--METHAMPHETAMINES -SMOKES 1 PPD PAST SURGICAL HISTORY: -APPENDECTOMY -HERNIA REPAIR -CARDIOVERSIONS ECHOCARDIOGRAM 11/13/20--EF 30-35%, NO REGIONAL WALL MOTION ABNORMALITIES. EXTREME NON-COMPLIANCE IN ALL ASPECTS OF CARE Review of Systems (CHC) Constitutional: No chills; dizziness; No fever; malaise EENTM: no symptoms reported; No mouth pain, No nose congestion, No throat pain Respiratory: cough, dyspnea on exertion Cardiovascular: chest pain; No edema, No palpitations Gastrointestinal: no symptoms reported; No abdominal pain, No constipation, No diarrhea, No nausea, No vomiting Genitourinary: no symptoms reported Musculoskeletal: no symptoms reported Skin: no symptoms reported Psychiatric/Neurological: No Symptoms Reported Reviewed Test Results Reviewed Test Results Lab Laboratory Tests Test 02/16/23 21:25 02/16/23 23:00 02/17/23 00:25 02/17/23 04:28 Range/Units White Blood Count 12.0 H 4.3-11.0 10^3/uL Red Blood Count 5.49 4.30-5.52 10^6/uL Hemoglobin 14.7 13.3-17.7 g/dL Hematocrit 46 40-54 % Mean Corpuscular Volume 85 80-99 fL Mean Corpuscular Hemoglobin 27 25-34 pg Mean Corpuscular Hemoglobin Concent 32 32-36 g/dL Red Cell Distribution Width 20.5 H 10.0-14.5 % Platelet Count 239 130-400 10^3/uL Mean Platelet Volume 11.1 9.0-12.2 fL Immature Granulocyte % (Auto) 0 % Neutrophils (%) (Auto) 72 42-75 % Lymphocytes (%) (Auto) 13 12-44 % Monocytes (%) (Auto) 10 0-12 % Eosinophils (%) (Auto) 4 0-10 % Basophils (%) (Auto) 1 0-10 % Neutrophils # (Auto) 8.6 H 1.8-7.8 10^3/uL Lymphocytes # (Auto) 1.6 1.0-4.0 10^3/uL Monocytes # (Auto) 1.2 H 0.0-1.0 10^3/uL Eosinophils # (Auto) 0.5 H 0.0-0.3 10^3/uL Basophils # (Auto) 0.1 0.0-0.1 10^3/uL Immature Granulocyte # (Auto) 0.1 0.0-0.1 10^3/uL Prothrombin Time 15.5 H 12.2-14.7 SEC INR Comment 1.2 0.8-1.4 Activated Partial Thromboplast Time 37 H 24-35 SEC D-Dimer 0.46 0.00-0.49 UG/ML Sodium Level 138 138 135-145 MMOL/L Potassium Level 3.1 L 3.6 3.6-5.0 MMOL/L Chloride Level 103 104 98-107 MMOL/L Carbon Dioxide Level 22 22 21-32 MMOL/L Anion Gap 13 12 5-14 MMOL/L Blood Urea Nitrogen 21 H 21 H 7-18 MG/DL Creatinine 1.13 1.04 0.60-1.30 MG/DL Estimat Glomerular Filtration Rate 83 91 BUN/Creatinine Ratio 19 20 Glucose Level 155 H 101 70-105 MG/DL Calcium Level 9.3 8.9 8.5-10.1 MG/DL Corrected Calcium 8.9 8.5-10.1 MG/DL Magnesium Level 2.1 1.6-2.4 MG/DL Total Bilirubin 0.9 0.1-1.0 MG/DL Aspartate Amino Transf (AST/SGOT) 34 5-34 U/L Alanine Aminotransferase (ALT/SGPT) 34 0-55 U/L Alkaline Phosphatase 237 H 40-136 U/L Total Creatine Kinase 237 H 30-200 U/L Creatine Kinase MB 5.1 <6.6 NG/ML Myoglobin 71.0 10.0-92.0 NG/ML Troponin I < 0.028 0.028 0.030 H <0.028 NG/ML B-Type Natriuretic Peptide 630.6 H <100.0 PG/ML Total Protein 8.0 6.4-8.2 GM/DL Albumin 4.5 3.2-4.5 GM/DL Amylase Level 27 25-125 U/L Lipase 21 8-78 U/L Serum Alcohol < 10 <10 MG/DL Urine Color YELLOW Urine Clarity CLEAR Urine pH 5.5 5-9 Urine Specific [place] 1.025 H 1.016-1.022 Urine Protein 1+ H NEGATIVE Urine Glucose (UA) 3+ H NEGATIVE Urine Ketones NEGATIVE NEGATIVE Urine Nitrite NEGATIVE NEGATIVE Urine Bilirubin NEGATIVE NEGATIVE Urine Urobilinogen 1.0 < = 1.0 MG/DL Urine Leukocyte Esterase NEGATIVE NEGATIVE Urine RBC (Auto) NEGATIVE NEGATIVE Urine RBC 0-2 /HPF Urine WBC 0-2 /HPF Urine Squamous Epithelial Cells RARE /HPF Urine Crystals NONE /LPF Urine Bacteria TRACE /HPF Urine Casts NONE /LPF Urine Mucus SMALL H /LPF Urine Culture Indicated NO Urine Opiates Screen NEGATIVE NEGATIVE Urine Oxycodone Screen NEGATIVE NEGATIVE Urine Methadone Screen NEGATIVE NEGATIVE Urine Propoxyphene Screen NEGATIVE NEGATIVE Urine Barbiturates Screen NEGATIVE NEGATIVE Ur Tricyclic Antidepressants Screen NEGATIVE NEGATIVE Urine Phencyclidine Screen NEGATIVE NEGATIVE Urine Amphetamines Screen NEGATIVE NEGATIVE Urine Methamphetamines Screen NEGATIVE NEGATIVE Urine Benzodiazepines Screen NEGATIVE NEGATIVE Urine Cocaine Screen NEGATIVE NEGATIVE Urine Cannabinoids Screen NEGATIVE NEGATIVE Triglycerides Level 79 <150 MG/DL Cholesterol Level 180 < 200 MG/DL LDL Cholesterol Direct 130 H 1-129 MG/DL VLDL Cholesterol 16 5-40 MG/DL HDL Cholesterol 43 40-60 MG/DL Radiology NAME: PAL VALERIO MED REC#: [id number] PT STATUS: REG ER : 1980 PHYSICIAN: JULIANO ALFONSO DO ADMIT DATE: 02/16/23/ER Signed Date of Exam:02/16/23 CHEST 1 VIEW, AP/PA ONLY INDICATION: Chest pain. EXAMINATION: Frontal chest was obtained at 9:24 p.m. COMPARISON: 01/11/2023. FINDINGS: There is cardiomegaly. There is mild central vascular prominence with chronic appearing increased interstitial markings. There are old right-sided rib fractures. There is no new infiltrate or pneumothorax or pleural fluid. IMPRESSION: Cardiomegaly and central vascular congestion with chronic appearing increased interstitial markings. Old right-sided rib fractures. No new infiltrate or pleural fluid. Dictated by: Dictated on workstation # [id number] Dict: 02/16/232137 Trans: 02/16/232149 [facility] [id number] Interpreted by: AXEL ROGER MD Electronically signed by: AXEL ROGER MD 02/16/232149 Physical Exam-(CHC) Physical Exam Vital Signs VS - Last 72 Hours, by Label 02/16/23 02/16/23 02/17/23 02/17/23 21:22 21:25 02:12 02:15 Temp 36.4 Pulse 80 69 74 Resp 18 19 B/P (MAP) 138/105 (116) 116/76 120/87 (98) Pulse Ox 97 98 99 96 O2 Delivery Room Air Nasal Cannula Nasal Cannula Room Air O2 Flow Rate 2.00 2.00 02/17/23 02/17/23 02/17/2323 02:23 02:27 02:30 02:30 Temp 36.0 Pulse 70 75 75 Resp 20 B/P (MAP) 120/87 (99) 116/85 (95) 116/85 (95) Pulse Ox 96 96 O2 Delivery Room Air Room Air 02/17/23 02/17/23 02/17/23 02/17/23 02:35 02:36 02:45 02:45 Pulse 71 70 70 B/P (MAP) 109/68 (82) 109/68 (80) Pulse Ox 96 96 97 O2 Delivery Room Air Room Air 02/17/23 02/17/23 02/17/23 02/17/23 03:00 03:00 03:30 03:30 Pulse 72 70 68 68 Resp 20 16 B/P (MAP) 109/72 (84) 109/72 (82) 116/83 (94) 105/68 (80) Pulse Ox 96 95 95 93 O2 Delivery Room Air Room Air Room Air Room Air 02/17/23 02/17/23 02/17/23 02/17/23 04:00 04:00 05:00 06:00 Pulse 79 67 67 Resp 16 14 16 B/P (MAP) 90/56 (65) 97/64 (76) 86/48 (57) Pulse Ox 94 95 92 O2 Delivery Room Air 02/17/23 02/17/23 02/17/23 02/17/23 06:01 06:17 07:00 07:36 Temp 36.0 Pulse 68 76 69 Resp 16 B/P (MAP) 110/70 (83) 105/73 (84) Pulse Ox 96 O2 Delivery Room Air Room Air O2 Flow Rate 0.00 02/17/23 02/17/23 08:00 12:00 Temp 36.4 Pulse 77 Resp 18 B/P (MAP) 116/82 (93) Pulse Ox 98 94 O2 Delivery Room Air Room Air Capillary Refill : Less Than 3 Seconds General Appearance: WD/WN, no apparent distress HEENT: PERRL/EOMI Neck: non-tender, full range of motion, supple Respiratory: chest non-tender, lungs clear, normal breath sounds, no respiratory distress, no accessory muscle use Cardiovascular: normal peripheral pulses, regular rate, rhythm, no murmur Gastrointestinal: normal bowel sounds, non tender, soft Back: no CVA tenderness, no vertebral tenderness Extremities: normal range of motion, normal inspection, no calf tenderness, pedal edema (1+ pitting edema) Neurologic/Psychiatric: material flow analyst II-XII nml as tested, alert Skin: normal color, warm/dry Lymphatic: no adenopathy Assessment/Plan Assessment/Plan Admission Status: Observation (1) NICM (nonischemic cardiomyopathy) Status: Chronic (2) Atypical chest pain Status: Acute Assessment & Plan: - Likely musculoskeletal pain, no signs for acute chest pain syndrome, cardiology consulted and appreciate recommendations, will transfer to Med/Surg (3) Acute on chronic HFrEF (heart failure with reduced ejection fraction) Status: Acute Assessment & Plan: - Restart home meds, and discussed the importance of taking lasix as prescribed 80 mg BID (4) Non-insulin dependent diabetes mellitus Status: Chronic Assessment & Plan: - Restart home meds (5) HTN (hypertension) Status: Chronic (6) DVT prophylaxis Status: Acute Assessment & Plan: - Lovenox (7) History of substance abuse Status: Chronic Assessment & Plan: - UDS neg Clinical Quality Measures AMI/AHF: ASA po Prior to arrival: Yes (81 MG THIS AM) JACOBY LINK MD February 17, 2023 12:30
--- NOTE | 2023-02-17 13:24 | Discharge Summary ---
Diagnosis/Chief Complaint Date of Admission February 17, 2023 at 02:21 Date of Discharge 02/17/23 Admission Diagnosis Admission Diagnosis See problem list Discharge Diagnosis See below Problems/Diagnosis: (1) Atypical chest pain Assessment & Plan: - Likely musculoskeletal pain, no signs for acute chest pain syndrome, cardiology consulted and appreciate recommendations, Dr Bejarano ok with discharge home Status: Acute (2) NICM (nonischemic cardiomyopathy) Status: Chronic (3) Acute on chronic HFrEF (heart failure with reduced ejection fraction) Assessment & Plan: - Restart home meds, and discussed the importance of taking lasix as prescribed 80 mg BID Status: Acute (4) Non-insulin dependent diabetes mellitus Assessment & Plan: - Restart home meds Status: Chronic (5) HTN (hypertension) Status: Chronic (6) DVT prophylaxis Assessment & Plan: - Lovenox Status: Acute (7) History of substance abuse Assessment & Plan: - UDS neg Status: Chronic Chief Complaint/HPI Chief Complaint/HPI 42 yo M well known to me that presents with chest pain. States that he was out smoking a cigarette and he started coughing and got dizzy. He had not smoked for over 3 weeks. Prior to that he was feeling well. States that he was only taking his lasix 40 mg BID instead of 80 mg BID that he was discharged home on. Denies any palpitations. States that he has not missed any of his medications. Has been going to work. Discharge Summary-Simple/Stand Consultations Dr Bejarano, Cardiology Discharge Physical Examination Allergies: Coded Allergies: hydrocodone (Verified Allergy, Severe, ITCHING, 08/05/22) spironolactone (Verified Allergy, Mild, 01/30/23) breast tendernes/swelling Penicillins (Verified Allergy, Unknown, 11/09/20) Vitals & I&Os Vital Sign - Last 12Hours Date Time Temp Pulse Resp B/P (MAP) Pulse Ox O2 Delivery O2 Flow Rate FiO2 02/17/23 13:00 69 02/17/23 12:00 36.4 18 116/82 (93) 94 Room Air 02/17/23 06:01 0.00 General Appearance: Alert, Oriented X3, No Acute Distress Respiratory: Clear to Auscultation, Normal Air Movement Cardiovascular: Regular Rate, No Murmurs, Other (ttp on right upper chest) Abdominal: Normal Bowel Sounds, Soft, No Tenderness, No Masses Extremities: Other (trace swelling present bilaterally) Neuro: Normal Speech Hospital Course See final discharge diagnosis. Radiology Reviewed NAME: [facility] REC#: [id number] PT STATUS: REG ER : 1980 PHYSICIAN: JULIANO ALFONSO DO ADMIT DATE: 02/16/23/ER Signed Date of Exam:02/16/23 CHEST 1 VIEW, AP/PA ONLY INDICATION: Chest pain. EXAMINATION: Frontal chest was obtained at 9:24 p.m. COMPARISON: 01/11/2023. FINDINGS: There is cardiomegaly. There is mild central vascular prominence with chronic appearing increased interstitial markings. There are old right-sided rib fractures. There is no new infiltrate or pneumothorax or pleural fluid. IMPRESSION: Cardiomegaly and central vascular congestion with chronic appearing increased interstitial markings. Old right-sided rib fractures. No new infiltrate or pleural fluid. Dictated by: Dictated on workstation # [id number] Dict: 02/16/232137 Trans: 02/16/232149 [facility] [id number] Interpreted by: AXEL ROGER MD Electronically signed by: AXEL ROGER MD 02/16/232149 Discharge Condition at discharge stable Instructions to patient/family Please see electronic discharge instructions given to patient. Discharge Medications Reviewed and agree with Discharge Medication list on patient's Discharge Instruction sheet Clinical Quality Measures AMI/AHF: ASA po Prior to arrival: Yes (81 MG THIS AM) JACOBY LINK MD February 17, 2023 13:24
[2023-02-17] MEDS ORDERED: OXYC1TAB16 PO (13:30)
--- NOTE | 2023-02-17 13:32 | Discharge Summary ---
Discharge [facility] Reconcile Patient Problems Problems Reviewed?: Yes Discharge Medications New, Converted or Re-Newed RX: Transmitted to Pharmacy New Medications: Oxycodone HCl/Acetaminophen (Percocet 7.5-325 mg Tablet) 1 Each Tablet 1 EACH PO Q6H PRN for PAIN-MODERATE (5-7), #10 TAB Continued Medications: Aspirin (Aspirin EC) 81 Mg Tablet.dr 81 MG PO HS, TAB Empagliflozin (Jardiance) 10 Mg Tablet 10 MG PO HS, TAB Famotidine (Famotidine) 20 Mg Tablet 20 MG PO BID, TAB Furosemide (Furosemide) 80 Mg Tablet 80 MG PO BID, TAB Lisinopril (Lisinopril) 2.5 Mg Tablet 2.5 MG PO HS, TAB Metoprolol Succinate (Metoprolol Succinate) 25 Mg Tab.er.24h 25 MG PO HS, TAB Pantoprazole Sodium (Pantoprazole Sodium) 40 Mg Tablet.dr 40 MG PO HS, TAB Rivaroxaban (Xarelto Tablet) 20 Mg Tablet 20 MG PO HS, TAB Trazodone HCl (Trazodone HCl) 50 Mg Tablet 50 MG PO HS, TAB Patient Instructions Goal/Follow Up Appt: 1-2 weeks with PCP Activity & Diet Discharge Diet: No Restrictions Activity as Tolerated: Yes JACOBY LINK MD February 17, 2023 13:32
[2023-02-17 14:00] VITALS: BP 116/82
--- NOTE | 2023-02-17 16:49 | Consultation-Cardiology ---
HPI-Cardiology Cardiology Consultation: Date of Consultation 02/17/23 Time Seen by a Provider: 12:30 Date of Admission Attending Physician [place] Admitting Physician Admitting Physician: Jacoby Link MD Attending Physician: Jacoby Link MD Consulting Physician SAVI SILVA MD, MA, FACP, FACC, [facility] [place], CCDS HPI: Chief Complaint: Chest pain Mr. Alexander is a 42 yr old male admitted to ICU 2 from the ED with c/o localized, left sided chest pain that radiates through to his back. He reports he was sitting outside smoking a cigarette (after he has not smoked in several weeks); he reports he became dizzy, nauseated and began having sharp, stabbing pains. He reports the pain has been constant since yesterday evening. He reports it is worse with moving his arm across his chest. He does acknowledge chest discom fort with palpation of the area that he is reporting chest pain. He denies any relief with nitro. He does report some relief with IV Morphine. He reports chronic SOB, but states he felt a little more SOB last night when walking to the car to come to the ED. He denies any diaphoresis. No LE swelling. He reports he has been compliant with his medications. He reports he has been eating foods high in sodium at work, such as chips and burritos out of the vending machines. He reports he has been refraining from alcohol and street drug usage. Review of Systems-Cardiology Review of Systems Constitutional: No chills, No fever; lightheadedness; No malaise Eyes: No vision change Ears/Nose/Throat: No epistaxis, No recent hearing loss Respiratory: As described under HPI Cardiovascular: As described under HPI Gastrointestinal: As described under HPI Genitourinary: No dysuria, No hematuria Musculoskeletal: no symptoms reported Skin: No rash on exposed areas, No ulcerations on exposed areas Psychiatric/Neurological: anxiety, depression; No seizure, No focal weakness, No syncope Hematologic: No bleeding abnormalities GWB-Pgxiez-Lazjat Hx Patient Social History Living Status: Lives at home independently Smoking Status: Current Everyday Smoker 2nd Hand Smoke Exposure: Yes Have you traveled recently?: Yes Alcohol Use?: No Substance type: Methamphetamine Pt feels they are or have been: No Tobacco type used: Cigarettes Immunizations Up To Date Tetanus Booster (TDap): Unknown Date of Influenza Vaccine: Aug 09, 2020 Past Medical History PMH As described under Assessment. Family Medical History Family Medical History: He states his father and brother both had hypertrophic cardiomyopathy. They both from the condition. His brother actually had a heart transplant and then . Allergies and Home Medications Allergies Coded Allergies: hydrocodone (Verified Allergy, Severe, ITCHING, 08/05/22) spironolactone (Verified Allergy, Mild, 01/30/23) breast tendernes/swelling Penicillins (Verified Allergy, Unknown, 11/09/20) Patient Home Medication List Home Medication List Reviewed: Yes Aspirin (Aspirin EC) 81 Mg Tablet.dr, 81 MG PO HS, (Reported) Entered as Reported by: KLAUDIA OTTO on 02/17/231152 Last Action: Reviewed Empagliflozin (Jardiance) 10 Mg Tablet, 10 MG PO HS, (Reported) Entered as Reported by: KLAUDIA OTTO on 02/17/231152 Last Action: Reviewed Famotidine (Famotidine) 20 Mg Tablet, 20 MG PO BID, (Reported) Entered as Reported by: KLAUDIA OTTO on 02/17/231152 Last Action: Reviewed Furosemide (Furosemide) 80 Mg Tablet, 80 MG PO BID, (Reported) Entered as Reported by: KLAUDIA OTTO on 02/17/231152 Last Action: Reviewed Lisinopril (Lisinopril) 2.5 Mg Tablet, 2.5 MG PO HS, (Reported) Entered as Reported by: KLAUDIA OTTO on 02/17/231152 Last Action: Reviewed Metoprolol Succinate (Metoprolol Succinate) 25 Mg Tab.er.24h, 25 MG PO HS, (Reported) Entered as Reported by: KLAUDIA OTTO on 02/17/231152 Last Action: Reviewed Oxycodone HCl/Acetaminophen (Percocet 7.5-325 mg Tablet) 1 Each Tablet, 1 EACH PO Q6H PRN for PAIN-MODERATE (5-7) Prescribed by: JACOBY LINK on 02/17/23 1331 Pantoprazole Sodium (Pantoprazole Sodium) 40 Mg Tablet.dr, 40 MG PO HS, (Reported) Entered as Reported by: KLAUDIA OTTO on 02/17/231152 Last Action: Reviewed Rivaroxaban (Xarelto Tablet) 20 Mg Tablet, 20 MG PO HS, (Reported) Entered as Reported by: KLAUDIA OTTO on 02/17/231152 Last Action: Reviewed Trazodone HCl (Trazodone HCl) 50 Mg Tablet, 50 MG PO HS, (Reported) Entered as Reported by: KLAUDIA OTTO on 02/17/231152 Last Action: Continued Discontinued Medications Aspirin (Children's Aspirin) 81 Mg Tab.chew, 81 MG PO DAILY Discontinued Reason: Duplicate Order Prescribed by: ANN RHOADES on 02/02/23939 Last Action: Discontinued Empagliflozin (Jardiance) 10 Mg Tablet, 10 MG PO DAILY Discontinued Reason: Duplicate Order Prescribed by: ANN RHOADES on 02/02/23939 Last Action: Discontinued Famotidine (Famotidine) 20 Mg Tablet, 20 MG PO BID Discontinued Reason: Duplicate Order Prescribed by: ANN RHOADES on 02/02/23939 Last Action: Discontinued Furosemide (Lasix) 80 Mg Tablet, 80 MG PO BID Discontinued Reason: No Longer Taking Prescribed by: ANN RHOADES on 02/02/23939 Last Action: Discontinued Furosemide (Furosemide) 40 Mg Tablet, 40 MG PO BID, (Reported) Discontinued Reason: Duplicate Order Entered as Reported by: TRI JACQUES on 02/17/23756 Last Action: Discontinued Lisinopril (Lisinopril) 2.5 Mg Tablet, 2.5 MG PO DAILY Discontinued Reason: Duplicate Order Prescribed by: ANN RHOADES on 02/02/23939 Last Action: Discontinued Metoprolol Succinate (Metoprolol Succinate) 25 Mg Tab.er.24h, 25 MG PO DAILY Discontinued Reason: Duplicate Order Prescribed by: ANN RHOADES on 02/02/23939 Last Action: Discontinued Pantoprazole Sodium (Pantoprazole Sodium) 40 Mg Tablet.dr, 40 MG PO DAILY Discontinued Reason: Duplicate Order Prescribed by: ANN RHOADES on 02/02/23939 Last Action: Discontinued Rivaroxaban (Xarelto) 20 Mg Tablet, 20 MG PO HS Discontinued Reason: Duplicate Order Prescribed by: JB VALDEZ on 02/02/231402 Last Action: Discontinued Trazodone HCl (Trazodone HCl) 50 Mg Tablet, 50 MG PO HS Discontinued Reason: Duplicate Order Prescribed by: JB VALDEZ on 4/26/23 1403 Last Action: Discontinued Physical Exam-Cardiology Physical Exam Vital Signs/I&O 02/17/23 02/17/23 02/17/23 02/17/23 05:00 06:00 06:01 06:17 Pulse 67 67 68 Resp 14 16 B/P (MAP) 97/64 (76) 86/48 (57) 110/70 (83) Pulse Ox 95 92 O2 Delivery Room Air Room Air O2 Flow Rate 0.00 02/17/23 02/17/23 02/17/23 02/17/23 07:00 07:36 08:00 12:00 Temp 36.0 36.4 Pulse 76 69 77 Resp 16 18 B/P (MAP) 105/73 (84) 116/82 (93) Pulse Ox 96 98 94 O2 Delivery Room Air Room Air Room Air 02/17/23 02/17/23 13:00 14:00 Temp 36.4 Pulse 69 69 Resp 18 B/P (MAP) 116/82 Pulse Ox 94 O2 Delivery Room Air O2 Flow Rate 0.00 Capillary Refill : Less Than 3 Seconds Constitutional: AAO x 3, well-developed, well-nourished HEENT: PERRL, hearing is well preserved, oral hygience is good Neck: No carotid bruit; carotid pulses are 2 + bilaterally Respiratory: No accessory muscle use, No respiratory distress; chest expansion is symmetric, chest is bilaterally symmetric, lungs clear to auscultation Cardiovascular: irregularly irregular; No JVD; S1 and S2 Gastrointestinal: No tender; soft; No guarding; audible bowel sounds Extremities: no lower extremity edema bilateral Neurologic/Psychiatric: grossly intact (moves all extremities) Skin: No rash on exposed areas, No ulcerations on exposed areas Lymphatic: no adenopathy Data Review Labs Laboratory Tests 02/16/23 21:25: White Blood Count 12.0H, Red Blood Count 5.49, Hemoglobin 14.7, Hematocrit 46, Mean Corpuscular Volume 85, Mean Corpuscular Hemoglobin 27, Mean Corpuscular Hemoglobin Concent 32, Red Cell Distribution Width 20.5H, Platelet Count 239, Mean Platelet Volume 11.1, Immature Granulocyte % (Auto) 0, Neutrophils (%) (Auto) 72, Lymphocytes (%) (Auto) 13, Monocytes (%) (Auto) 10, Eosinophils (%) (Auto) 4, Basophils (%) (Auto) 1, Neutrophils # (Auto) 8.6H, Lymphocytes # (Auto) 1.6, Monocytes # (Auto) 1.2H, Eosinophils # (Auto) 0.5H, Basophils # (Auto) 0.1, Immature Granulocyte # (Auto) 0.1, Prothrombin Time 15.5H, INR C omment 1.2, Activated Partial Thromboplast Time 37H, D-Dimer 0.46, Sodium Level 138, Potassium Level 3.1L, Chloride Level 103, Carbon Dioxide Level 22, Anion Gap 13, Blood Urea Nitrogen 21H, Creatinine 1.13, Estimat Glomerular Filtration Rate 83, BUN/Creatinine Ratio 19, Glucose Level 155H, Calcium Level 9.3, Corrected Calcium 8.9, Magnesium Level 2.1, Total Bilirubin 0.9, Aspartate Amino Transf (AST/SGOT) 34, Alanine Aminotransferase (ALT/SGPT) 34, Alkaline Phosphatase 237H, Total Creatine Kinase 237H, Creatine Kinase MB 5.1, Myoglobin 71.0, Troponin I < 0.028, B-Type Natriuretic Peptide 630.6H, Total Protein 8.0, Albumin 4.5, Amylase Level 27, Lipase 21, Serum Alcohol < 10 02/16/23 23:00: Urine Color YELLOW, Urine Clarity CLEAR, Urine pH 5.5, Urine Specific [place] 1.025H, Urine Protein 1+H, Urine Glucose (UA) 3+H, Urine Ketones NEGATIVE, Urine Nitrite NEGATIVE, Urine Bilirubin NEGATIVE, Urine Urobilinogen 1.0, Urine Leukocyte Esterase NEGATIVE, Urine RBC (Auto) NEGATIVE, Urine RBC 0-2, Urine WBC 0-2, Urine Squamous Epithelial Cells RARE, Urine Crystals NONE, Urine Bacteria TRACE, Urine Casts NONE, Urine Mucus SMALLH, Urine Culture Indicated NO, Urine Opiates Screen NEGATIVE, Urine Oxycodone Screen NEGATIVE, Urine Methadone Screen NEGATIVE, Urine Propoxyphene Screen NEGATIVE, Urine Barbiturates Screen NEGATIVE, Ur Tricyclic Antidepressants Screen NEGATIVE, Urine Phencyclidine Screen NEGATIVE, Urine Amphetamines Screen NEGATIVE, Urine Methamphetamines Screen NEGATIVE, Urine Benzodiazepines Screen NEGATIVE, Urine Cocaine Screen NEGATIVE, Urine Cannabinoids Screen NEGATIVE 02/17/23 00:25: Troponin I 0.028 02/17/23 04:28: Sodium Level 138, Potassium Level 3.6, Chloride Level 104, Carbon Dioxide Level 22, Anion Gap 12, Blood Urea Nitrogen 21H, Creatinine 1.04, Estimat Glomerular Filtration Rate 91, BUN/Creatinine Ratio 20, Glucose Level 101, Calcium Level 8.9, Troponin I 0.030H, Triglycerides Level 79, Cholesterol Level 180, LDL Cholesterol Direct 130H, VLDL Cholesterol 16, HDL Cholesterol 43 A/P-Cardiology Assessment/Admission Diagnosis Chest pain - undetermined etiology - ? musculo-skeletal, tenderness with palpation - no evidence of ACS / NSTEMI Acute on chronic systolic CHF - continue diuretics Shortness of breath, cough, bilateral pleural effusion worse on the right - undetermined etiology - s/p thoracentesis on 01-18-[address] Tadeo (2150ml) H/O non-sustained WCT on 10/21/22 and 10/22/22 - probably aberrance during A Fib with RVR Acute on chronic systolic congestive heart failure - Echo was done in April 2022 with ejection fraction 40 to 45% with biatrial enlargement, moderate mitral regurgitation, pulmonary artery pressure 45 to 50 mmHg. - Echo of 10-11-[address] Hernandez showed LVEF 35-40%. Mod sized L pleural effusion. Mild MR. Mild to mod TR. - Echo on 10-26-22: LVEF 50-55%, mod biatrial enlargement, mod pleural eff Persistent atrial fibrillation/flutter - History of ablation done in [place] in late 2020, previously refusing any further ablation - Had previously been on Eliquis but had had compliance issues - Lately on Xarelto for stroke prophylaxis Nonischemic cardiomyopathy - cardiac catheterization done in [place] around 2019 did not show any obstructive disease. History of methamphetamine abuse. - currently refraining EtOH abuse - currently refraining Hyperlipidemia Tobaccoism - currently refraining History of noncompliance with medication or medical instructions History of elevated liver enzymes. - Probably underlying cirrhosis seen on CTA of the abdomen in the past. Discussion and Recomendations Chest pain of undetermined etiology - musculo-skeletal (reporducible on exam) A-flutter with controlled HR - continue home medications including xarelto for stroke prohylaxis Continue HF medications Monitor lab Replace electrolytes as indicated Clinical Quality Measures AMI/AHF: ASA po Prior to arrival: Yes (81 MG THIS AM) SAVI SILVA MD FACP FAC CCDS February 17, 2023 16:49
[2023-02-17] MEDS ORDERED: FUROSEMIDE 40 MG (LASIX) TAB PO SCH (17:00)
[2023-02-17] MEDS ORDERED: RIVAROXABAN 20 MG TABLET (XARELTO) PO SCH (21:00)
[2023-02-17] MEDS ORDERED: traZODone 50 MG (DESYREL) TAB PO SCH (21:00)
[2023-02-17] MEDS ORDERED: KCL 20 MEQ TAB (K-DUR) PO SCH (21:00)
== END 2023-02-17 14:01 | disposition home or self-care (01) ==
LOC: EDUNIT# 21:17 → ER 21:19 → ICU 02-17 02:21
PROVIDERS: ADMIT Family Medicine; ATTEND Family Medicine
DX: R07.89 Other chest pain (principal); I42.8 Other cardiomyopathies; I50.23 Acute on chronic systolic (congestive) heart failure; E11.9 Type 2 diabetes mellitus without complications; I11.0 Hypertensive heart disease with heart failure; F17.210 Nicotine dependence, cigarettes, uncomplicated; F15.11 Other stimulant abuse, in remission; F10.10 Alcohol abuse, uncomplicated; E78.5 Hyperlipidemia, unspecified; I48.92 Unspecified atrial flutter; Z28.310 Unvaccinated for COVID-19; J90 Pleural effusion, not elsewhere classified
CPT/HCPCS: 36415; 71045; 80048; 80053; 80061; 80306; 80320; 81000; 82150; 82550; 82553; 83690; 83735; 83874; 83880; 84484; 85025; 85379; 85610; 85730; 93005; 93041

== ENCOUNTER → 2023-03-24 | Outpatient (CLI) | payer OTHER ==
[~2023-03-24] MED LIST changes: +ASPI-1238 PO; +OXYC1TAB16 PO
--- NOTE | 2023-03-24 12:52 | Diagnostic Imaging Report ---
PROCEDURE: MRI lumbar spine without contrast. TECHNIQUE: Multiplanar, multisequence MRI of the lumbar spine was performed without contrast. INDICATION: Low back pain. COMPARISON: None. FINDINGS: 5 lumbar type vertebral bodies are visualized with the last well-formed disc space designated L5-S1. No acute fracture or dislocation is seen in the lumbar spine. Alignment is anatomic. Vertebral body heights are well-maintained. The bone marrow signal is normal. The conus terminates at the L1 level. No masses are seen associated with the conus or nerve roots of the cauda equina. No epidural collections are identified. Multilevel degenerative changes are seen in the lumbar spine with disc bulges, facet hypertrophy, and buckling of the ligamentum flavum. T12-L1: No significant spinal canal or foraminal stenosis. L1-L2: No significant spinal canal or foraminal stenosis. L2-L3: No significant spinal canal or foraminal stenosis. L3-L4: Disc desiccation with broad-based disc bulge and facet hypertrophy results in mild to moderate spinal canal narrowing and moderate bilateral foraminal stenosis. L4-L5: Broad-based disc bulge, facet hypertrophy, and buckling of the ligamentum flavum results in mild to moderate spinal canal narrowing and moderate bilateral foraminal stenosis. L5-S1: Broad-based disc bulge, facet hypertrophy, and buckling of the ligamentum flavum results in mild spinal canal narrowing and no significant foraminal narrowing. Paravertebral soft tissues are unremarkable. IMPRESSION: 1. No acute fracture or dislocation in the lumbar spine. 2. Multilevel degenerative changes in the lumbar spine, greatest at L3-L4 and L4-L5. Dictated by: Dictated on workstation # [id number]
== END ==
LOC: RAD 10:24
PROVIDERS: ATTEND Nurse Practitioner Family
DX: M47.816 Spondylosis without myelopathy or radiculopathy, lumbar region (principal); M21.372 Foot drop, left foot; R20.0 Anesthesia of skin; R20.2 Paresthesia of skin
CPT/HCPCS: 72148

== ENCOUNTER 2023-05-04 19:37 | Inpatient (IN) | payer OTHER ==
[~2023-05-04] VITALS: Ht 180.3 cm; Wt 107.7 kg
[2023-05-04] MEDS ORDERED: NITROGLYCERIN 0.4 MG SL TABS BTL 25'S SL PRN (19:45)
[2023-05-04] MEDS ORDERED: ASPIRIN 81 MG CHEWABLE TABLET PO ONE (19:45)
[2023-05-04] MEDS ORDERED: NITROGLYCERIN 2% OINT 1 GM UNIT DOSE PACKET TOP STA (19:50)
[2023-05-04 19:52] LABS: BASOPHILS % (AUTO) 0 % (0-10); EOSINOPHILS # (AUTO) 0.7 10^3/uL (0.0-0.3); EOSINOPHILS % (AUTO) 6 % (0-10); HEMATOCRIT 47 % (40-54); HEMOGLOBIN 15.2 g/dL (13.3-17.7); LYMPHOCYTES # (AUTO) 1.8 10^3/uL (1.0-4.0); LYMPHOCYTES % (AUTO) 16 % (12-44); MEAN CORPUSCULAR HEMOGLOBIN 28 pg (25-34); MEAN CORPUSCULAR HGB CONC 32 g/dL (32-36); MEAN CORPUSCULAR VOLUME 88 fL (80-99); MEAN PLATELET VOLUME 11.3 fL (9.0-12.2); MONOCYTES # (AUTO) 0.9 10^3/uL (0.0-1.0); MONOCYTES % (AUTO) 8 % (0-12); NEUTROPHILS # (AUTO) 7.8 10^3/uL (1.8-7.8); NEUTROPHILS % (AUTO) 69 % (42-75); PLATELET COUNT 218 10^3/uL (130-400); WHITE BLOOD COUNT 11.3 10^3/uL (4.3-11.0)
--- NOTE | 2023-05-04 19:59 | ED Chest Pain ---
General Chief Complaint: Chest Pain Stated Complaint: CHEST PAIN|ABDOMINAL PAIN Nursing Triage Note: PATIENT STATES CHEST PAIN X3-4 DAYS. STATES PRESSURE TODAY WITH SOB. Source: patient, old records History of Present Illness Date Seen by Provider: May 04, 2023 Time Seen by Provider: 19:43 Initial Comments PT ARRIVES VIA POV FROM HOME C/O CHEST PAIN OFF AND ON FOR 3-4 DAYS PAIN IS IN LOWER STERNAL AREA / EPIGASTRIC AREA, LEFT UPPER CHEST AND RADIATES DOWN LEFT ARM RATES PAIN 7-8/10 NOW HAS BEEN SHORT OF BREATH ALL DAY TODAY NO SWELLING IN FEET/ANKLES + NAUSEA + SWEATS OFF AND ON WITH THE PAIN NO DIZZINESS OR SYNCOPE NO REPORT OF RAPID HEART BEAT NO COUGH OR FEVER HE HAS HAD THIS SAME PAIN MULTIPLE TIMES. HAS HAD CARDIAC CATH IN THE PAST, WITH NON-OCCLUSIVE DISEASE AND NO INTERVENTION. PT HAS CHRONIC ATRIAL FIBRILLATION/FLUTTER AND IS ON ASPIRIN AND XARELTO. HE HAS HAD CARDIOVERSIONS IN THE PAST. HE ALSO HAS HTN AND CHF HE SMOKES 1 PPD, HX OF ETOH ABUSE--CLAIMS NO RECENT USE, AND METHAMPHETAMINE USE--BOTH IV USE AND SMOKES IT--CLAIMS NO RECENT USE. HE HAS A LONG HISTORY OF NON-COMPLIANCE, BUT STATES TODAY THAT HE HAS NOT MISSED ANY DOSES OF MEDICATIONS RECENTLY OR HAD ANY DOSE ADJUSTMENTS. PT WITH A MULTITUDE OF VISITS SINCE HE MOVED HERE FROM [facility] 10/2020--23 VISITS PCP: MYLES. TYLER RANDALL PRIME MINISTER: DR. SILVA Allergies and Home Medications Allergies Coded Allergies: hydrocodone (Verified Allergy, Severe, ITCHING, 08/05/22) spironolactone (Verified Allergy, Mild, 01/30/23) breast tendernes/swelling Penicillins (Verified Allergy, Unknown, 11/09/20) Patient Home Medication List Home Medication List Reviewed: Yes Aspirin (Aspirin EC) 81 Mg Tablet., 81 MG PO HS, (Reported) Entered as Reported by: KLAUDIA OTTO on 02/17/23 1153 Empagliflozin (Jardiance) 10 Mg Tablet, 10 MG PO HS, (Reported) Entered as Reported by: KLAUDIA OTTO on 02/17/23 1153 Famotidine (Famotidine) 20 Mg Tablet, 20 MG PO BID, (Reported) Entered as Reported by: KLAUDIA OTTO on 02/17/23 1153 Furosemide (Furosemide) 80 Mg Tablet, 80 MG PO BID, (Reported) Entered as Reported by: KLAUDIA OTTO on 02/17/23 1153 Lisinopril (Lisinopril) 2.5 Mg Tablet, 2.5 MG PO HS, (Reported) Entered as Reported by: KLAUDIA OTTO on 02/17/23 1153 Metoprolol Succinate (Metoprolol Succinate) 25 Mg Tab.er.24h, 25 MG PO HS, (Repo rted) Entered as Reported by: KLAUDIA OTTO on 02/17/23 1153 Oxycodone HCl/Acetaminophen (Percocet 7.5-325 mg Tablet) 1 Each Tablet, 1 EACH PO Q6H PRN for PAIN-MODERATE (5-7) Prescribed by: JACOBY LINK on 02/17/23 1331 Pantoprazole Sodium (Pantoprazole Sodium) 40 Mg Tablet.dr, 40 MG PO HS, (Reported) Entered as Reported by: KLAUDIA OTTO on 02/17/23 1153 Rivaroxaban (Xarelto Tablet) 20 Mg Tablet, 20 MG PO HS, (Reported) Entered as Reported by: KLAUDIA OTTO on 02/17/23 1153 Trazodone HCl (Trazodone HCl) 50 Mg Tablet, 50 MG PO HS, (Reported) Entered as Reported by: KLAUDIA OTTO on 02/17/23 1153 Review of Systems Review of Systems Constitutional: see HPI, diaphoresis; No dizziness, No fever EENTM: No Symptoms Reported Respiratory: See HPI, Shortness of Air Cardiovascular: See HPI, Chest Pain; Denies Edema, Denies Lightheadedness, Denies Syncope; Other (CHRONIC ATRIAL FIB/FLUTTER. NO REPORT OF RAPID HEART BEAT) Past Aicehmp-Mjtyxb-Yyqvoe Hx Patient Social History Tobacco Use?: Yes Tobacco type used: Cigarettes Smoking Status: Current Everyday Smoker Substance use?: Yes Substance type: Methamphetamine Alcohol Use?: Yes Immunizations Up To Date Tetanus Booster (TDap): Unknown First/Initial COVID19 Vaccinat: N/A Second COVID19 Vaccination [place]: N/A Third COVID19 Vaccination Date: N/A Past Medical History Surgery/Hospitalization HX: hernia repair, appendectomy Htn, chf, afib Surgeries: Yes (HERNIA REPAIR; THORACENTESIS 01/18/23;CARDIAC CATH; CARDIOVERSIONS) Abdominal, Appendectomy, Cardiac Respiratory: Yes (PLEURAL EFFUSION/THORACENTESIS) Cardiac: Yes (CHF 30-35% EF AT LOWEST; ATRIAL FIB/FLUTTER; CHF;VARICOSE VEINS;RBBB) Atrial Fibrillation, Cardiomyopathy, High Cholesterol, Hypertension Neurological: No Genitourinary: No Gastrointestinal: Yes Gastroesophageal Reflux Musculoskeletal: No Endocrine: Yes (OBESITY, borderline diabetes) HEENT: No Cancer: No Psychosocial: Yes (SUBSTANCE ABUSE) Integumentary: Yes (TATTOOS) Blood Disorders: No Family Medical History Heart Disease, Diabetes SOCIAL HISTORY: -ETOH--HEAVY, REGULAR USE -DRUGS--METHAMPHETAMINES--BOTH IV USE AND SMOKES IT -SMOKES 1 PPD PAST SURGICAL HISTORY: -THORACENTESIS 01/2023 -APPENDECTOMY -HERNIA REPAIR -CARDIOVERSIONS ECHOCARDIOGRAM 11/13/20--EF 30-35%, NO REGIONAL WALL MOTION ABNORMALITIES. EXTREME NON-COMPLIANCE IN ALL ASPECTS OF CARE MULTIPLE VISITS HERE SINCE MOVING HERE FROM [facility] 10/2020 Physical Exam Vital Signs Vital Signs - First Documented 05/04/23 05/04/23 19:42 19:45 Temp 37.6 Pulse 72 Resp 20 B/P (MAP) 139/103 (115) Pulse Ox 96 O2 Delivery Room Air O2 Flow Rate 2.00 Capillary Refill : Less Than 3 Seconds Height, Weight, BMI Height: '" Weight: lbs. oz. kg; 31.00 BMI Method: General Appearance: No Apparent Distress, WD/WN, Anxious (CONSTANT LEG MOVEMENTS. 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3-17.7 g/dL Hematocrit 47 40-54 % Mean Corpuscular Volume 88 80-99 fL Mean Corpuscular Hemoglobin 28 25-34 pg Mean Corpuscular Hemoglobin Concent 32 32-36 g/dL Red Cell Distribution Width 15.8 H 10.0-14.5 % Platelet Count 218 130-400 10^3/uL Mean Platelet Volume 11.3 9.0-12.2 fL Immature Granulocyte % (Auto) 0 % Neutrophils (%) (Auto) 69 42-75 % Lymphocytes (%) (Auto) 16 12-44 % Monocytes (%) (Auto) 8 0-12 % Eosinophils (%) (Auto) 6 0-10 % Basophils (%) (Auto) 0 0-10 % Neutrophils # (Auto) 7.8 1.8-7.8 10^3/uL Lymphocytes # (Auto) 1.8 1.0-4.0 10^3/uL Monocytes # (Auto) 0.9 0.0-1.0 10^3/uL Eosinophils # (Auto) 0.7 H 0.0-0.3 10^3/uL Basophils # (Auto) 0.0 0.0-0.1 10^3/uL Immature Granulocyte # (Auto) 0.1 0.0-0.1 10^3/uL Prothrombin Time 19.9 H 12.2-14.7 SEC INR Comment 1.7 H 0.8-1.4 Activated Partial Thromboplast Time 45 H 24-35 SEC D-Dimer 0.34 0.00-0.49 UG/ML Sodium Level 138 135-145 MMOL/L Potassium Level 4.0 3.6-5.0 MMOL/L Chloride Level 103 98-107 MMOL/L Carbon Dioxide Level 23 21-32 MMOL/L Anion Gap 12 5-14 MMOL/L Blood Urea Nitrogen 16 7-18 MG/DL Creatinine 1.01 0.60-1.30 MG/DL Estimat Glomerular Filtration Rate 95 BUN/Creatinine Ratio 16 Glucose Level 114 H 70-105 MG/DL Calcium Level 9.7 8.5-10.1 MG/DL Corrected Calcium 9.4 8.5-10.1 MG/DL Magnesium Level 1.9 1.6-2.4 MG/DL Total Bilirubin 1.4 H 0.1-1.0 MG/DL Aspartate Amino Transf (AST/SGOT) 43 H 5-34 U/L Alanine Aminotransferase (ALT/SGPT) 31 0-55 U/L Alkaline Phosphatase 256 H 40-136 U/L Total Creatine Kinase 421 H 30-200 U/L Creatine Kinase MB 9.9 *H <6.6 NG/ML Myoglobin 137.2 H 10.0-92.0 NG/ML Troponin I 0.028 <0.028 NG/ML B-Type Natriuretic Peptide 1063.5 H <100.0 PG/ML Total Protein 7.7 6.4-8.2 GM/DL Albumin 4.4 3.2-4.5 GM/DL Amylase Level 16 L 25-125 U/L Lipase 8 8-78 U/L TSH [place] Testing 3.46 0.35-4.94 UIU/ML Serum Alcohol < 10 <10 MG/DL Influenza Type A (RT-PCR) Not Detected Not Detecte Influenza Type B (RT-PCR) Not Detected Not Detecte SARS-CoV-2 RNA (RT-PCR) Not Detected Not Detecte Lactic Acid Level 0.91 0.50-2.00 MMOL/L Urine Opiates Screen NEGATIVE NEGATIVE Urine Oxycodone Screen NEGATIVE NEGATIVE Urine Methadone Screen NEGATIVE NEGATIVE Urine Propoxyphene Screen NEGATIVE NEGATIVE Urine Barbiturates Screen NEGATIVE NEGATIVE Ur Tricyclic Antidepressants Screen NEGATIVE NEGATIVE Urine Phencyclidine Screen NEGATIVE NEGATIVE Urine Amphetamines Screen NEGATIVE NEGATIVE Urine Methamphetamines Screen NEGATIVE NEGATIVE Urine Benzodiazepines Screen NEGATIVE NEGATIVE Urine Cocaine Screen NEGATIVE NEGATIVE Urine Cannabinoids Screen POSITIVE H NEGATIVE My Orders Orders - JULIANO ALFONSO DO Ekg Tracing (05/04/23 19:43) Cbc With Automated Diff (05/04/23 19:43) Magnesium (05/04/23 19:43) Chest 1 View, Ap/Pa Only (05/04/23 19:43) Ekg Tracing (05/04/23 19:43) Comprehensive Metabolic Panel (05/04/23 19:43) Myoglobin Serum (05/04/23 19:43) Protime With Inr (05/04/23 19:43) Partial Thromboplastin Time (05/04/23 19:43) O2 (05/04/23 19:43) Monitor-Rhythm Ecg Trace Only (05/04/23 19:43) Ed Iv/Invasive Line Start (05/04/23 19:43) Creatine Kinase (05/04/23 19:43) Creatine Kinase Mb (05/04/23:43) Lipase (05/04/23 19:43) Amylase (05/04/23 19:43) Bnp [place] (05/04/23 19:43) Fibrin Degradation Products (05/04/23 19:43) Troponin I Patricia (05/04/23 19:43) Nitroglycerin 0.4 Mg Btl 25's (Nitrostat (05/04/23 19:45) Aspirin Chewable Tablet (Baby Aspirin Ch (05/04/23 19:45) Alcohol (05/04/23 19:50) Drug Screen Stat (Urine) (05/04/23 19:50) Thyroid Analyzer (05/04/23 19:50) Nitroglycerin Ointment (Nitrobid Ointme (05/04/23 19:50) Covid 19 Inhouse Test (05/04/23 20:19) Influenza A And B By Pcr (05/04/23 20:19) Furosemide Injection (Lasix Injection) (05/04/23 20:30) Hepatitis Panel Acute (05/04/23 20:25) Hiv 1&2 Antibody (05/04/23 20:25) Ct Angio Chest W (R/O Pe) (05/04/23 20:25) Ketorolac Injection (Toradol Injection) (05/04/23 20:25) Iohexol Injection (Omnipaque 350 Mg/Ml 1 (05/04/23 20:30) Received Contrast (Hold Metformin- Contr (05/04/23 20:30) Ns (Ivpb) 100 Ml (Sodium Chloride 0.9% 1 (05/04/23 20:30) Lactic Acid Analyzer (05/04/23 20:42) Blood Culture (05/04/23 20:42) Cefepime Injection (Maxipime Injection) (05/04/23 20:45) Ed Admission (Communication) (05/04/23 21:36) Lorazepam Injection (Ativan Injection) (05/04/23 22:30) Hydromorphone Injection (Dilaudid Inject (05/04/23 22:30) Medications Given in ED Current Medications Medications Dose Ordered Sig/[place] Route Start Time Stop Time Status Last Admin Dose Admin Aspirin 324 mg ONCE ONCE PO 05/04/23 19:45 05/04/23 19:46 DC 05/04/23 19:50 324 MG Cefepime HCl 1000 mg/Sodium Chloride 50 ml @ 100 mls/hr ONCE ONCE IV 05/04/23 20:45 05/04/23 21:14 DC 05/04/23 21:20 100 MLS/HR Furosemide 40 mg ONCE ONCE IVP 05/04/23 20:30 05/04/23 20:31 DC 05/04/23 20:31 40 MG Hydromorphone HCl 0.5 mg ONCE ONCE IV 05/04/23 22:30 05/04/23 22:31 DC 05/04/23 22:31 0.5 MG Iohexol 100 ml ONCE ONCE IV 05/04/23 20:30 05/04/23 21:15 DC 05/04/23 20:42 83 ML Lorazepam 1 mg ONCE ONCE IVP 05/04/23 22:30 05/04/23 22:31 DC 05/04/23 22:29 1 MG Sodium Chloride 100 ml ONCE ONCE IV 05/04/23 20:30 05/04/23 21:15 DC 05/04/23 20:42 70 ML Vital Signs/I&O 05/04/23 05/04/23 19:42 19:45 Temp 37.6 Pulse 72 Resp 20 B/P (MAP) 139/103 (115) Pulse Ox 96 97 O2 Delivery Room Air Nasal Cannula O2 Flow Rate 2.00 05/05/23 00:00 Intake Total 50 ml Balance 50 ml Blood Pressure Mean: 115 Progress Progress Note : Progress Note VITALS ON ARRIVAL: TEMP 37.6, HR 72, RR 20, BP 139/103, O2 SAT 97% ON ROOM AIR CHEST PAIN PROTOCOL INITIATED GIVEN: -ASPIRIN -NITROPASTE--NO RELIEF OF PAIN AND STATES NOW HE HAS A HEADACHE. NITROPASTE LATER REMOVED -TORADOL -CEFEPIME -ATIVAN -DILAUDID -LASIX PT CONTINUES TO COMPLAIN OF HEADACHE AFTER NITROPASTE AND CHEST PAIN WITHOUT REL IEF, YET IS TEXTING/PLAYING ON PHONE THROUGHOUT ENTIRE ER STAY. PT STATES OXYCODONE AND DILAUDID ARE THE ONLY THINGS THAT HELP HE STATES FENTANYL NEVER WORKS AND TORADOL NEVER WORKS EKG IS UNCHANGED FROM PREVIOUS PERTINENT LABS: -CBC UNREMARKABLE -CMP WITH NORMAL ELECTROLYTES AND NORMAL BUN/CR. TROPONIN IS NEGATIVE, BNP IS > 1000, CK ISOENZYMES ELEVATED. MG NORMAL. LFT'S ELEVATED. -D-DIMER IS NORMAL; PT /PTT/INR SLIGHTLY ELEVATED. -COVID AND FLU ARE NEGATIVE CXR AND CT CHEST ANGIOGRAM BOTH NOTE POSSIBLE PNEUMONIA. NO P.E. CT ALSO NOTES ABNORMAL APPEARANCE OF GALLBLADDER. NO DETERIORATION IN PT'S CONDITION DURING ER STAY VITALS STABLE DISCUSSED TEST RESULTS AND PT IS AGREEABLE TO PLAN REVIEWED PRIOR RECORDS, INCLUDING ER VISITS, ADMITS/H&P'S/CONSULTS/DISCHARGE SUMMARIES, TESTS/PROCEDURES. COMPLEX MANAGEMENT DUE TO MULTIPLE ISSUES: CHEST PAIN, PT WITH CHRONIC AFIB WITH LOW EF, WITH CHF AND POSSIBLE PNUEMONIA, WITH ELEVATED LFT'S AND ABNORMAL APPEARANCE OF GALLBLADDER ON CT. ADDITIONALLY, PT HAS LONG HISTORY OF POLYSUBSTANCE ABUSE AND REPEATED REQUESTS FOR OPIATES. Initial ECG Impression Date: May 04, 2023 Initial ECG Impression Time: 19:44 Initial ECG Rate: 72 Initial ECG Rhythm: A Fib/Flutter Initial ECG Intervals W[place]--N/A QRS 108 QT/QTC 371/396 Initial ECG Comparisson: Unchanged Comment PT HAS CHRONIC ST SEGMENT CHANGES THAT ARE UNCHANGED FROM PREVIOUS EKG'S INTERPRETED BY ME Diagnostic Imaging Comments CXR--PER RADIOLOGIST REPORT AT 2019 FINDINGS: There is cardiomegaly. Pulmonary vasculature stable from previous. Patchy airspace opacities at the right lung base could be infiltrate, improved since previous. Remaining lungs demonstrate chronic findings similar to previous with old rib fractures also present. No pneumothorax. No effusion. IMPRESSION: Diffuse chronic change with findings of the right lung base, possibly due to atelectasis or scar. Infiltrate not excluded. Correlate with patient's symptoms. CT CHEST ANGIOGRAM--PER RADIOLOGIST REPORT AT 2114 FINDINGS: There is no central or proximal segmental pulmonary embolus. There is diffuse mediastinal adenopathy with mild right hilar adenopathy. No pericardial or pleural effusion. Tiny nonspecific nodules noted in the left lung apex. These are new since previous imaging and therefore may be due to an atypical type of infiltrate. There are mild emphysematous changes. No focal consolidation. IVC is distended with reflux of contrast suggesting right heart strain. There is hepatomegaly. Mild wall thickening of the gallbladder suggestive but the gallbladder is contracted. There are possible stones. There is no acute osseous abnormality. Old rib fractures noted. IMPRESSION: 1. No central or proximal segmental pulmonary embolus. 2. Nonspecific mediastinal adenopathy. Follow-up recommended to assure resolution. 3. Nodularities in the left upper lobe which could be due to developing atypical infiltrate given no nodules on recent CT. Follow-up recommended to assure resolution. This could reevaluate the adenopathy within the mediastinum as well. 4. Hepatomegaly. 5. Cholelithiasis with wall thickening of the gallbladder possibly due to under distention. If there are symptoms of cholecystitis, sonography could provide further characterization. Reviewed: Reviewed by Dc Departure Communication (Admissions) 2116--CALLED [facility] NUM[facility], MESSAGE LEFT. [id number]--SPOKE WITH DR. COLE, HOSPITALIST FOR [facility]. ACCEPTS PT FOR ADMIT. SHE WILL DO ADMIT ORDERS. WILL CONSULT SURGERY AND CARDIOLOGY 2125--SPOKE WITH DR. SMITH, SURGEON, AND ADVISED HIM OF CONSULT. WILL OBTAIN ULTRASOUND OF ABDOMEN IN AM. 2128--SPOKE WITH DR. DUBON, PRIME MINISTER, AND ADVISED HIM OF CONSULTS. HE RECOMMENDS ROUTINE SERIAL EKG'S AND CARDIAC ENZYMES Impression Primary Impression: Chest pain Additional Impressions: CHF exacerbation Chronic CHF Acute on chronic HFrEF (heart failure with reduced ejection fraction) Persistent atrial fibrillation Non-insulin dependent diabetes mellitus HTN (hypertension) POSSIBLE PNEUMONIA Elevated LFTs POSSIBLE GALLBLADDER DISEASE History of intravenous drug abuse Marijuana use History of alcohol abuse Disposition: ADMITTED INPATIENT Condition: Stable Admissions Decision to Admit Reason: Admit from ER (General) Decision to Admit/Date: May 04, 2023 Time/Decision to Admit Time: 21:20 Departure-Patient Inst. Referrals: SAMANTA RANDALL BELLHOP (PCP/Family) Primary Care Physician JULIANO ALFONSO DO May 04, 2023 19:59
[2023-05-04 20:03] LABS: INR 1.7 (0.8-1.4); PROTHROMBIN TIME PATIENT 19.9 SEC (12.2-14.7)
[2023-05-04 20:06] LABS: FIBRIN DEGRADATION PRODUCTS 0.34 UG/ML (0.00-0.49)
--- NOTE | 2023-05-04 20:14 | Diagnostic Imaging Report ---
INDICATION: Chest pain. EXAMINATION: Chest, 05/04/2023. COMPARISON: 02/16/2023. FINDINGS: There is cardiomegaly. Pulmonary vasculature stable from previous. Patchy airspace opacities at the right lung base could be infiltrate, improved since previous. Remaining lungs demonstrate chronic findings similar to previous with old rib fractures also present. No pneumothorax. No effusion. IMPRESSION: Diffuse chronic change with findings of the right lung base, possibly due to atelectasis or scar. Infiltrate not excluded. Correlate with patient's symptoms. Dictated by: Dictated on workstation # [id number]
[2023-05-04 20:15] LABS: ALBUMIN 4.4 GM/DL (3.2-4.5); BILIRUBIN,TOTAL 1.4 MG/DL (0.1-1.0); CALCIUM 9.7 MG/DL (8.5-10.1); CREATININE SERUM 1.01 MG/DL (0.60-1.30); MAGNESIUM 1.9 MG/DL (1.6-2.4); TOTAL PROTEIN 7.7 GM/DL (6.4-8.2)
[2023-05-04] MEDS ORDERED: KETOROLAC 30 MG/ML VIAL IVP STA (20:25)
[2023-05-04 20:27] LABS: CREATINE KINASE MB 9.9 NG/ML (<6.6)
[2023-05-04] MEDS ORDERED: IOHEXOL 350 MG/ML 100 ML (OMNIPAQUE 350) VIAL IV ONE (20:30)
[2023-05-04] MEDS ORDERED: HOLD METFORMIN - RECEIVED CONTRAST 20 ML VIAL IV SCH (20:30)
[2023-05-04] MEDS ORDERED: NS 100 ML (IVPB) BAG IV ONE (20:30)
[2023-05-04] MEDS ORDERED: FUROSEMIDE 40 MG/4 ML INJ (LASIX) IVP ONE (20:30)
[2023-05-04 20:34] LABS: TSH (THYROID ANALYZER) 3.46 UIU/ML (0.35-4.94)
[2023-05-04] MEDS ORDERED: CEFEPIME INJECTION 1,000 MG in NS (IVPB) 50 ML 50 ML IV ONE (20:45)
--- NOTE | 2023-05-04 21:08 | Diagnostic Imaging Report ---
INDICATION: Chest pain 3-4 days. Pressure and shortness of breath. EXAMINATION: CTA chest, 05/04/2023. All CT scans use one or more of the following dose optimizing techniques: automated exposure control, MA and/or KvP adjustment based on patient size and exam type or iterative reconstruction. COMPARISON: 01/16/2023. FINDINGS: There is no central or proximal segmental pulmonary embolus. There is diffuse mediastinal adenopathy with mild right hilar adenopathy. No pericardial or pleural effusion. Tiny nonspecific nodules noted in the left lung apex. These are new since previous imaging and therefore may be due to an atypical type of infiltrate. There are mild emphysematous changes. No focal consolidation. IVC is distended with reflux of contrast suggesting right heart strain. There is hepatomegaly. Mild wall thickening of the gallbladder suggestive but the gallbladder is contracted. There are possible stones. There is no acute osseous abnormality. Old rib fractures noted. IMPRESSION: 1. No central or proximal segmental pulmonary embolus. 2. Nonspecific mediastinal adenopathy. Follow-up recommended to assure resolution. 3. Nodularities in the left upper lobe which could be due to developing atypical infiltrate given no nodules on recent CT. Follow-up recommended to assure resolution. This could reevaluate the adenopathy within the mediastinum as well. 4. Hepatomegaly. 5. Cholelithiasis with wall thickening of the gallbladder possibly due to under distention. If there are symptoms of cholecystitis, sonography could provide further characterization. Dictated by: Dictated on workstation # [id number]
[2023-05-04 21:17] LABS: AMPHETAMINE SCREEN, URINE NEGATIVE (NEGATIVE); BARBITURATE SCREEN URINE NEGATIVE (NEGATIVE); BENZODIAZEPINES SCREEN URINE NEGATIVE (NEGATIVE); CANNABINOID SCREEN, URINE POSITIVE (NEGATIVE); COCAINE SCREEN URINE NEGATIVE (NEGATIVE); METHADONE STAT NEGATIVE (NEGATIVE); OPIATE SCREEN URINE NEGATIVE (NEGATIVE); OXYCODONE STAT NEGATIVE (NEGATIVE); PROPOXYPHENE STAT NEGATIVE (NEGATIVE); TRICYCLIC ANTIDEPRESSANTS SCRE NEGATIVE (NEGATIVE)
[2023-05-04] MEDS ORDERED: HYDROmorphone 2 MG/ML VIAL (DILAUDID) IV ONE (22:30)
[2023-05-04] MEDS ORDERED: LORazepam INJ 2 MG/ML (ATIVAN) VIAL IVP ONE (22:30)
[2023-05-04] MEDS ORDERED: ONDANSETRON 4 MG (ZOFRAN) ORAL DISSOLVE TAB PO PRN (23:30)
[2023-05-04] MEDS ORDERED: diphenhydrAMINE 50 MG/ML INJ (BENADRYL) IVP PRN (23:30)
[2023-05-04] MEDS ORDERED: BISACODYL 10 MG SUPPOSITORY PR PRN (23:30)
[2023-05-04] MEDS ORDERED: polyethylene glycoL POWDER 17 GM (MIRALAX) PACK PO PRN (23:30)
[2023-05-04] MEDS ORDERED: MILK OF MAGNESIA 400 MG/5 ML 30 ML UDC PO PRN (23:30)
[2023-05-04] MEDS ORDERED: cloNIDine 0.1 MG TABLET PO PRN (23:30)
[2023-05-04] MEDS ORDERED: MELATONIN 3 MG TABLET PO PRN (23:30)
[2023-05-04] MEDS ORDERED: ANTACID SUSP 30 ML UDC (MYLANTA) PO PRN (23:30)
[2023-05-04] MEDS ORDERED: CALCIUM CARBONATE 500 MG CHEW TABLET PO PRN (23:30)
[2023-05-04] MEDS ORDERED: ACETAMINOPHEN 325 MG TABLET PO PRN (23:30)
[2023-05-04] MEDS ORDERED: ONDANSETRON 4 MG/2 ML (SDV) Z0FRAN IV PRN (23:30)
[2023-05-04] MEDS ORDERED: LACTULOSE SYRUP 10GM/15ML (ENULOSE) 30ML UDC PO PRN (23:30)
[2023-05-04] MEDS ORDERED: diphenhydrAMINE 25 MG TAB (BENADRYL) PO PRN (23:30)
[2023-05-04 23:47] VITALS: BP 112/85
[2023-05-05] VITALS (17 sets, daily range): BP systolic 97–123; BP diastolic 65–90
[2023-05-05] MEDS: HYDROmorphone 2 MG/ML VIAL (DILAUDID) IV PRN ×4 (00:53→08:39)
[2023-05-05] MEDS: LORazepam INJ 2 MG/ML (ATIVAN) VIAL IVP PRN ×3 (00:53→06:24)
[2023-05-05] MEDS: CEFEPIME 1,000 MG/NS 50 ML IVPB IV SCH ×8 (03:16→21:05)
[2023-05-05 05:40] LABS: BASOPHILS % (AUTO) 0 % (0-10); EOSINOPHILS # (AUTO) 0.7 10^3/uL (0.0-0.3); EOSINOPHILS % (AUTO) 8 % (0-10); HEMATOCRIT 43 % (40-54); HEMOGLOBIN 13.6 g/dL (13.3-17.7); LYMPHOCYTES # (AUTO) 1.5 10^3/uL (1.0-4.0); LYMPHOCYTES % (AUTO) 17 % (12-44); MEAN CORPUSCULAR HEMOGLOBIN 28 pg (25-34); MEAN CORPUSCULAR HGB CONC 32 g/dL (32-36); MEAN CORPUSCULAR VOLUME 88 fL (80-99); MEAN PLATELET VOLUME 11.9 fL (9.0-12.2); MONOCYTES # (AUTO) 0.9 10^3/uL (0.0-1.0); MONOCYTES % (AUTO) 9 % (0-12); NEUTROPHILS # (AUTO) 5.9 10^3/uL (1.8-7.8); NEUTROPHILS % (AUTO) 65 % (42-75); PLATELET COUNT 203 10^3/uL (130-400)
[2023-05-05 05:48] LABS: ALBUMIN 3.9 GM/DL (3.2-4.5)
[2023-05-05 05:49] LABS: CHLORIDE 105 MMOL/L (98-107); POTASSIUM 3.8 MMOL/L (3.6-5.0); SODIUM 137 MMOL/L (135-145)
[2023-05-05 05:50] LABS: CALCIUM 9.3 MG/DL (8.5-10.1)
[2023-05-05 05:51] LABS: GLUCOSE 96 MG/DL (70-105); TOTAL PROTEIN 6.7 GM/DL (6.4-8.2)
[2023-05-05 05:52] LABS: CARBON DIOXIDE 22 MMOL/L (21-32)
[2023-05-05 05:53] LABS: BILIRUBIN,TOTAL 1.4 MG/DL (0.1-1.0)
[2023-05-05 05:54] LABS: ALKALINE PHOSPHATASE 214 U/L (40-136)
[2023-05-05 05:55] LABS: CREATININE SERUM 0.93 MG/DL (0.60-1.30); GFR ESTIMATED 104
[2023-05-05 05:56] LABS: BUN/CREATININE RATIO 19
[2023-05-05 05:58] LABS: ALANINE AMINOTRANSFERASE 27 U/L (0-55)
[2023-05-05] MEDS: inSUlin ASPART (NovoLOG) 1 UNIT/0.01 ML (CHARGE PER UNIT) SC SCH ×4 (06:23→20:58)
[2023-05-05] MEDS: ASPIRIN enteric coated 81MG TABLET PO SCH (08:38)
[2023-05-05] MEDS ORDERED: CEFEPIME INJECTION 2,000 MG in NS (IVPB) 50 ML 50 ML IV SCH (09:00)
[2023-05-05] MEDS: DOCUSATE SODIUM 100 MG CAPSULE PO SCH ×2 (09:23→19:58)
[2023-05-05] MEDS: SENNOSIDES 8.6 MG (SENOKOT) TAB PO SCH ×2 (09:23→19:59)
--- NOTE | 2023-05-05 09:36 | Diagnostic Imaging Report ---
Indication: Abdominal pain Ultrasound the liver and right upper quadrant was performed in routine fashion The liver shows normal echogenicity with no focal lesion. Portal vein is patent with hepatopetal flow. Gallbladder shows borderline wall thickening with some sludge but no definite stones. Common duct measured 4 mm, The pancreas is not well seen due to overlying gas. IVC and aorta appear normal. The right kidney measured 11.7 cm in length and shows no hydronephrosis or focal lesion. There is no ascites. IMPRESSION: There is mild gallbladder wall thickening with some questionable sludge in the gallbladder. No definite stones or biliary dilatation. Dictated by: Dictated on workstation # [id number]
--- NOTE | 2023-05-05 09:47 | Consultation-Cardiology ---
HPI-Cardiology Cardiology Consultation Date of Consultation 05/05/23 Date of Admission Time Seen by Provider: 09:42 Indication: Chest pain HPI 42-year-old gentleman with a history of severe cardiomyopathy, reported that he had a cardiac catheterization done in 2019, not sure if he had any obstructive disease but the record showing nonobstructive disease. Started to have chest p ain, left-sided, shortness of breath worsening recently, has been avoiding illicit drugs for the past 7 months but using cannabinoids. Patient was admitted with congestive heart failure. On my evaluation he was still having some chest discomfort. Home Medications & Allergies Allergies: Coded Allergies: hydrocodone (Verified Allergy, Severe, ITCHING, 08/05/22) spironolactone (Verified Allergy, Mild, 01/30/23) breast tendernes/swelling Penicillins (Verified Allergy, Unknown, 11/09/20) Home Medication List Reviewed: Yes VKG-Dqazil-Niisvk Hx Patient Social History Marital Status: single Employed/Student: employed Drug of Choice: METHAMPHETAMINE, MARIJUANA Smoking Status: Light Tobacco Smoker Type Used: Cigarettes 2nd Hand Smoke Exposure: Yes Recent Hopitalizations: No Alcohol Use?: No Substance type: Methamphetamine Immunizations Up To Date Tetanus Booster (TDap): Unknown Date of Influenza Vaccine: Aug 09, 2020 Past Medical History Discussed below Family Medical History Significant Family History: Heart Disease, Diabetes Review of Systems-General Review of Systems Constitutional: see HPI, diaphoresis; No dizziness, No fever EENTM: see HPI, no symptoms reported Respiratory: see HPI; No cough; dyspnea on exertion; No hemoptysis, No orthopnea, No phlegm; short of breath; No stridor, No wheezing, No other Cardiovascular: see HPI, chest pain; No edema, No Hx of Intervention, No palp itations, No syncope, No vascular heart diseas, No other Gastrointestinal: no symptoms reported, see HPI Genitourinary: no symptoms reported, see HPI Musculoskeletal: no symptoms reported, see HPI Skin: no symptoms reported, see HPI Psychiatric/Neurological: No Symptoms Reported, See HPI Reviewed Test Results Reviewed Test Results Lab Laboratory Tests Test 05/04/23 19:45 05/04/23 20:21 05/04/23 20:55 05/05/23 04:50 Range/Units White Blood Count 11.3 H 9.0 4.3-11.0 10^3/uL Red Blood Count 5.36 4.90 4.30-5.52 10^6/uL Hemoglobin 15.2 13.6 13.3-17.7 g/dL Hematocrit 47 43 40-54 % Mean Corpuscular Volume 88 88 80-99 fL Mean Corpuscular Hemoglobin 28 28 25-34 pg Mean Corpuscular Hemoglobin Concent 32 32 32-36 g/dL Red Cell Distribution Width 15.8 H 15.8 H 10.0-14.5 % Platelet Count 218 203 130-400 10^3/uL Mean Platelet Volume 11.3 11.9 9.0-12.2 fL Immature Granulocyte % (Auto) 0 0 % Neutrophils (%) (Auto) 69 65 42-75 % Lymphocytes (%) (Auto) 16 17 12-44 % Monocytes (%) (Auto) 8 9 0-12 % Eosinophils (%) (Auto) 6 8 0-10 % Basophils (%) (Auto) 0 0 0-10 % Neutrophils # (Auto) 7.8 5.9 1.8-7.8 10^3/uL Lymphocytes # (Auto) 1.8 1.5 1.0-4.0 10^3/uL Monocytes # (Auto) 0.9 0.9 0.0-1.0 10^3/uL Eosinophils # (Auto) 0.7 H 0.7 H 0.0-0.3 10^3/uL Basophils # (Auto) 0.0 0.0 0.0-0.1 10^3/uL Immature Granulocyte # (Auto) 0.1 0.0 0.0-0.1 10^3/uL Prothrombin Time 19.9 H 12.2-14.7 SEC INR Comment 1.7 H 0.8-1.4 Activated Partial Thromboplast Time 45 H 24-35 SEC D-Dimer 0.34 0.00-0.49 UG/ML Sodium Level 138 137 135-145 MMOL/L Potassium Level 4.0 3.8 3.6-5.0 MMOL/L Chloride Level 103 105 98-107 MMOL/L Carbon Dioxide Level 23 22 21-32 MMOL/L Anion Gap 12 10 5-14 MMOL/L Blood Urea Nitrogen 16 18 7-18 MG/DL Creatinine 1.01 0.93 0.60-1.30 MG/DL Estimat Glomerular Filtration Rate 95 104 BUN/Creatinine Ratio 16 19 Glucose Level 114 H 96 70-105 MG/DL Calcium Level 9.7 9.3 8.5-10.1 MG/DL Corrected Calcium 9.4 9.4 8.5-10.1 MG/DL Magnesium Level 1.9 1.6-2.4 MG/DL Total Bilirubin 1.4 H 1.4 H 0.1-1.0 MG/DL Aspartate Amino Transf (AST/SGOT) 43 H 37 H 5-34 U/L Alanine Aminotransferase (ALT/SGPT) 31 27 0-55 U/L Alkaline Phosphatase 256 H 214 H 40-136 U/L Total Creatine Kinase 421 H 30-200 U/L Creatine Kinase MB 9.9 *H <6.6 NG/ML Myoglobin 137.2 H 10.0-92.0 NG/ML Troponin I 0.028 < 0.028 <0.028 NG/ML B-Type Natriuretic Peptide 1063.5 H <100.0 PG/ML Total Protein 7.7 6.7 6.4-8.2 GM/DL Albumin 4.4 3.9 3.2-4.5 GM/DL Amylase Level 16 L 25-125 U/L Lipase 8 8-78 U/L TSH Craven Testing 3.46 0.35-4.94 UIU/ML Serum Alcohol < 10 <10 MG/DL Influenza Type A (RT-PCR) Not Detected Not Detecte Influenza Type B (RT-PCR) Not Detected Not Detecte SARS-CoV-2 RNA (RT-PCR) Not Detected Not Detecte Lactic Acid Level 0.91 0.50-2.00 MMOL/L Urine Opiates Screen NEGATIVE NEGATIVE Urine Oxycodone Screen NEGATIVE NEGATIVE Urine Methadone Screen NEGATIVE NEGATIVE Urine Propoxyphene Screen NEGATIVE NEGATIVE Urine Barbiturates Screen NEGATIVE NEGATIVE Ur Tricyclic Antidepressants Screen NEGATIVE NEGATIVE Urine Phencyclidine Screen NEGATIVE NEGATIVE Urine Amphetamines Screen NEGATIVE NEGATIVE Urine Methamphetamines Screen NEGATIVE NEGATIVE Urine Benzodiazepines Screen NEGATIVE NEGATIVE Urine Cocaine Screen NEGATIVE NEGATIVE Urine Cannabinoids Screen POSITIVE H NEGATIVE Physical Exam Physical Exam Vital Signs Vital Signs - First Documented 05/04/23 05/04/23 19:42 19:45 Temp 37.6 Pulse 72 Resp 20 B/P (MAP) 139/103 (115) Pulse Ox 96 O2 Delivery Room Air O2 Flow Rate 2.00 Capillary Refill : Less Than 3 Seconds Height, Weight, BMI Height: '" Weight: lbs. oz. kg; 32.26 BMI Method: General Appearance: No Apparent Distress, WD/WN, Anxious (CONSTANT LEG MOVEMENTS. ), Other (REEKS OF CIGARETTES; ) Neck: Normal Inspection Respiratory: Chest Non Tender, Normal Breath Sounds, No Accessory Muscle Use, No Respiratory Distress Cardiovascular: No Edema, No JVD, No Murmur, Normal Peripheral Pulses, Irregularly Irregular Gastrointestinal: Non Tender, Soft Extremity: Normal Capillary Refill, Normal Range of Motion, Non Tender, No Calf Tenderness, No Pedal Edema, Other (EXTENSIVE VARICOSE VEINS TO LEGS) Neurologic/Psychiatric: Alert, Oriented x3, No Motor/Sensory Deficits, back end architect II- XII Norm as Tested Skin: Normal Color, Warm/Dry, Tattoos/Piercings, Other (SORES/SCARS/SCABS TO LEGS AND ABDOMEN) A/P-Cardiology Admission Diagnosis Chest pain Congestive heart failure Atrial fibrillation Hypertension Assessment/Plan Chest pain, multiple admission for recurrent chest pain Undetermined etiology Questionable coronary artery disease, reporting cardiac catheterization done in 2019. Not sure of the results. Cardiac enzymes were negative There is slightly distended gallbladder but no sludge was identified. I discussed with the patient and her the management plan recommended cardiac catheterization Congestive heart failure, acute on chronic left ventricular systolic dysfunction, nonischemic in nature. 2D echo was done in October 11, 2022 with ejection fraction 35 to 40% Repeat echo was done on October 26, 2022 with ejection fraction 50 to 55% Maintained on diuretic, started on Lasix. I will repeat 2D echo Shortness of breath. Had thoracentesis in January [address] Tadeo Recurrent pleural effusion Continue on diuretics Persistent atrial fibrillation Had ablation done in late 2020 in [place] Was maintained on oral anticoagulation History of nonsustained wide-complex tachycardia in October 2022 Questionable aberrant conduction during A-fib with RVR. History of illicit drug use, methamphetamine use Has been absent for the past 7 months, tested positive for cannabinoids. History of EtOH abuse, has been avoiding Hyperlipidemia History of noncompliance with medication DEMIAN DUBON MD May 05, 2023 09:47
[2023-05-05] MEDS ORDERED: HYDROmorphone 2 MG/ML VIAL (DILAUDID) IV PRN (11:00)
[2023-05-05] MEDS ORDERED: LORazepam INJ 2 MG/ML (ATIVAN) VIAL IVP PRN (11:15)
[2023-05-05] MEDS ORDERED: LORazepam 0.5 MG (ATIVAN) TABLET PO PRN (11:15)
[2023-05-05] MEDS: LORazepam 0.5 MG (ATIVAN) TABLET PO PRN ×3 (11:40→23:32)
[2023-05-05] MEDS ORDERED: ASPI-999 PO (11:51)
[2023-05-05] MEDS ORDERED: AMIT50TA3 PO (11:51)
[2023-05-05] MEDS ORDERED: FURO40TA4 PO (11:51)
[2023-05-05] MEDS ORDERED: HEParin (CATH LAB) 2,000 ML IV ONE (13:03)
[2023-05-05] MEDS ORDERED: NS IV 1000 ML 1,000 ML ONE (13:03)
[2023-05-05] MEDS ORDERED: LIDOCAINE 1% INJ 20 ML VIAL ONE (13:03)
--- NOTE | 2023-05-05 13:12 | CONSULTATION REPORT ---
DATE OF SERVICE: 05/05/2023 ATTENDING PRIMARY CHILDCARE DIRECTOR: Mary Robles APRN ADMITTING PHYSICIAN: Erin Parsons MD HISTORY OF PRESENT ILLNESS: The patient is a 42-year-old male with an extensive past medical history. The patient has a history of alcohol and methamphetamine abuse as well as a longstanding history of cannabinoid and cigarette smoking. The patient did develop severe cardiomyopathy with an estimated ejection fraction of approximately 35%. The patient presented to the emergency department with chest pain on the left side as well as shortness of breath. He reports that he does not drink alcohol. Has refrained from alcohol and using illicit drugs in the past 7 months; however, does continue to use cannabinoid products as well as smoking tobacco, cigarettes. The patient was admitted for congestive heart failure; however, he had reported pain in the epigastric region. A CT scan of the chest as well as at portion of the abdomen was performed, which did show possible pneumonia; however, the patient did appear to have biliary sludge as well as gallbladder wall thickening. This was confirmed also by ultrasonography. Due to the patient's cardiac history as well as unknown coronary artery status, the patient will be undergoing a cardiac catheterization as well as possible intervention. Once the patient is stable, we will discuss the possibility of proceeding with a laparoscopic cholecystectomy once again cleared by medical as well as Cardiology. Otherwise, for now, we will recommend clear liquid diet and pain medication as necessary. PAST MEDICAL HISTORY: Ischemic cardiomyopathy, diabetes, atrial fibrillation, congestive heart failure, gastroesophageal reflux disease, hypertension, hypercholesterolemia. PAST SURGICAL HISTORY: Appendectomy, cardiac catheterization and an ablative procedure, hernia repair, abdominal hernia repair. ALLERGIES: HYDROCODONE, SPIRONOLACTONE, PENICILLIN. MEDICATIONS: Empagliflozin 10 mg daily, famotidine 10 mg b.i.d., furosemide 80 mg b.i.d., lisinopril 2.5 mg daily, metoprolol 25 mg daily, oxycodone 7.5 mg q.6 hours p.r.n., Protonix 40 mg daily, rivaroxaban 20 mg daily, trazodone 50 mg daily. SOCIAL HISTORY: Longstanding previous history of methamphetamine as well as alcohol abuse. He continues to take cannabis products as well as a daily tobacco smoking. FAMILY HISTORY: Noncontributory. PHYSICAL EXAMINATION: VITAL SIGNS: Temperature 36.6, blood pressure 107/70, pulse 74, respirations 12, pulse ox 98% on 2 liters nasal cannula. REVIEW OF SYSTEMS: A well-nourished male, currently in no acute distress. He is experiencing mild exertional shortness of breath. None at rest at this time. He does report some mild cough with no sputum production. He also does report he has had some epigastric as well as chest pain, more in the left side. No nausea, vomiting, with intermittent history of constipation, no red blood per rectum, no dark tarry stools. No fever, chills, no recent inadvertent weight loss. All other review of systems negative. PHYSICAL EXAM: CHEST: Scattered rales and rhonchi bilaterally are scattered wheezes and rhonchi bilaterally. HEART: Regular. No murmurs. EXTREMITIES: Plus 1/3 bilateral lower extremity edema. Negative Homans sign. HEENT: No scleral icterus. No cervical lymphadenopathy. ABDOMEN: Soft, nondistended. There is pain in the right upper abdominal quadrant upon palpation with voluntary guarding, no rebound. No hernias. SKIN: Warm, dry. LABORATORY DATA: WBC 9.0, hemoglobin 13.6, hematocrit 43, platelets 203. BUN 18, creatinine 0.93, total bilirubin 1.4, alkaline phosphatase 214. ASSESSMENT AND PLAN: A 42-year-old male with chest pain and history of cardiomyopathy and congestive heart failure as well as pain in the epigastric region with chronic calculous cholecystitis. Due to the patient's cardiac status and unknown coronary artery status, he will undergo cardiac catheterization and possible intervention by Cardiology. Once cleared from the medical as well as cardiac standpoint and stable, we will then proceed with a laparoscopic cholecystectomy. In the meantime, from a standpoint of medical management of chronic calculous cholecystitis, we will recommend a clear liquid diet or a low-fat diet as well as pain medication as necessary. Job ID: [id number] DocumentID: [id number] Dictated Date: 05/05/2023 12:48:59 Resource Conservation Manager Date: 05/05/2023 13:10:00 Dictated By: MARIANN SMITH MD
--- NOTE | 2023-05-05 13:38 | History & Physical-Hospitalist ---
CHAVA CHOUDHARY 05/05/23 1338: History of Present Illness HPI/Chief Complaint Our patient is a 42 yo M with a history of persistent atrial fibrillation, HTN, CHF, previous cardioablation, previous non-occlusive cardiac catheterization, and methamphetamine use was admitted for chest pain. His pain has been occurring on and off for the past 3-4 days. Now, he describes it as a heavy pressure, constant, 7-8 out of ten in severity, and well localized to the chest and epigastric region. He notes multiple previous occurrences of similar pain. Walking around worsens the pain considerably while nitropaste and his pain medications have helped. He experienced shortness of breath all day yesterday as well as diaphoresis, fatigue, and nausea. He denies dizziness, syncope, palpitations. He notes that he has been constipated for the last few days and that he has felt like he needs to urinate but is only able to void small volumes. On arrival to the ER he was given aspirin, nitropaste, toradol, cefepime, dilaudid, and lasix. Nitropaste caused improvement but also resulted in a terrible headache. Initial chest x-ray showed diffuse chronic changes with s carring or atalectasis in the right lung base. Chest CTA showed no evidence of a PE, but did show mediastinal adenopathy, nodularities in the left upper lobe, hepatomegaly, and possible cholelithiasis with gall bladder wall thickening. Initial labwork showed elevations in ALP, CK-MB, myoglobin, and BNP. Initial troponin and repeat troponin were normal. He was then admitted to the hospital. Source: patient, RN/MD Exam Limitations: no limitations Date Seen 05/05/23 Time Seen by a Provider: 09:30 Attending Physician Mary Robles Aprn PCP Admitting Physician: Erin Cole DO Attending Physician: Erin Cole DO Referring Physician Date of Admission May 04, 2023 at 23:08 Home Medications & Allergies Home Medications Reviewed patient Home Medication Reconciliation performed by pharmacy medication reconciliations certified master safe technician and/or nursing. Patients Allergies have been reviewed. Allergies Allergies Coded Allergies hydrocodone (Verified Allergy, Severe, ITCHING, 08/05/22) spironolactone (Verified Allergy, Mild, 01/30/23) breast tendernes/swelling Penicillins (Verified Allergy, Unknown, 11/09/20) Past Juwyllt-Gqfppp-Uzmicw Hx Patient Social History Marrital Status: single Employed/Student: employed Tobacco Use?: Yes Tobacco type used: Cigarettes Smoking Status: Current Everyday Smoker Substance use?: Yes Substance type: Methamphetamine (hasn't used for 7 months), Marijuana Additional substance use comme: nine months ago Alcohol Use?: No Additional alcohol type: last drink seven months ago Pt feels they are or have been: No Immunizations Up To Date Date of Influenza Vaccine: Aug 09, 2020 First/Initial COVID19 Vaccinat: N/A Second COVID19 Vaccination Edinson: N/A Tetanus Booster (TDap): Unknown Hepatitis A: No Hepatitis B: No Current Status Advance Directives: No Communicates: Verbally Primary Language: Nigerian Preferred Spoken Language: Nigerian Is interpretation needed?: No Sensory deficits: Vision impairment Implanted or Applied Medical D: None Past Medical History Surgeries: Abdominal, Appendectomy, Cardiac Atrial Fibrillation, Cardiomyopathy, High Cholesterol, Hypertension Gastroesophageal Reflux Blood Disorders: No PMHx: Atrial fibrillation/atrial flutter Meth use Congestive heart failure HTN SurgHx: Appendectomy Family Medical History Heart Disease, Diabetes SOCIAL HISTORY: -ETOH--HEAVY, REGULAR USE -DRUGS--METHAMPHETAMINES--BOTH IV USE AND SMOKES IT -SMOKES 1 PPD PAST SURGICAL HISTORY: -THORACENTESIS 01/2023 -APPENDECTOMY -HERNIA REPAIR -CARDIOVERSIONS ECHOCARDIOGRAM 11/13/20--EF 30-35%, NO REGIONAL WALL MOTION ABNORMALITIES. EXTREME NON-COMPLIANCE IN ALL ASPECTS OF CARE MULTIPLE VISITS HERE SINCE MOVING HERE FROM [facility] 10/2020 Review of Systems Constitutional: diaphoresis; No dizziness, No fever EENTM: no symptoms reported; No vision loss Respiratory: No cough; short of breath Cardiovascular: chest pain, edema, Hx of Intervention, palpitations (intermittent) Gastrointestinal: No abdominal pain; constipation; No diarrhea; nausea; No vomiting Genitourinary: decreased output; No dysuria, No frequency Musculoskeletal: no symptoms reported Skin: no symptoms reported Psychiatric/Neurological: No Symptoms Reported, Headache Physical Exam Physical Exam Vital Signs Vital Signs - First Documented 05/04/23 05/04/23 19:42 19:45 Temp 37.6 Pulse 72 Resp 20 B/P (MAP) 139/103 (115) Pulse Ox 96 O2 Delivery Room Air O2 Flow Rate 2.00 Capillary Refill : Less Than 3 Seconds Height, Weight, BMI Height: '" Weight: lbs. oz. kg; 32.26 BMI Method: General Appearance: WD/WN, Mild Distress, Obese HEENT: PERRL/EOMI, Normal ENT Inspection Neck: Non Tender, Supple; No Carotid Bruit, No JVD, No Lymphadenopathy (L), No Lymphadenopathy (R) Respiratory: Chest Non Tender, No Accessory Muscle Use, No Respiratory Distress, Wheezing (Left-sided) Cardiovascular: No Gallop, No JVD, No Murmur, Normal Peripheral Pulses, Irregularly Irregular Gastrointestinal: Normal Bowel Sounds, No Organomegaly, Soft, Distended, Tenderness (Epigastric region), Other (Chandler's sign negative) Rectal: Deferred Back: Normal Inspection Extremity: Normal Capillary Refill, Normal Inspection, Non Tender, No Calf Tenderness, Pedal Edema (trace), Other (Prominent varicose veins in bilateral legs, worse on right side) Neurologic/Psychiatric: Alert, Oriented x3, Normal Mood/Affect Skin: Normal Color, Warm/Dry Results Results/Procedures Labs Laboratory Tests 05/04/23 19:45 05/05/23 04:50 Patient resulted labs reviewed. Imaging: Reviewed Imaging Films, Reviewed Imaging Report Imaging Date of Exam:05/04/23 CHEST 1 VIEW, AP/PA ONLY INDICATION: Chest pain. EXAMINATION: Chest, 05/04/2023. COMPARISON: 02/16/2023. FINDINGS: There is cardiomegaly. Pulmonary vasculature stable from previous. Patchy airspace opacities at the right lung base could be infiltrate, improved since previous. Remaining lungs demonstrate chronic findings similar to previous with old rib fractures also present. No pneumothorax. No effusion. IMPRESSION: Diffuse chronic change with findings of the right lung base, possibly due to atelectasis or scar. Infiltrate not excluded. Correlate with patient's symptoms. Dictated by: Dictated on workstation # [id number] Dict: 05/04/232008 Trans: 05/04/232105 [facility] [id number] Interpreted by: SHARON SINGH MD Electronically signed by: SHARON SINGH MD 05/04/232105 Date of Exam:05/04/23 CT ANGIO CHEST W (R/O PE) INDICATION: Chest pain 3-4 days. Pressure and shortness of breath. EXAMINATION: CTA chest, 05/04/2023. All CT scans use one or more of the following dose optimizing techniques: automated exposure control, MA and/or KvP adjustment based on patient size and exam type or iterative reconstruction. COMPARISON: 01/16/2023. FINDINGS: There is no central or proximal segmental pulmonary embolus. There is diffuse mediastinal adenopathy with mild right hilar adenopathy. No pericardial or pleural effusion. Tiny nonspecific nodules noted in the left lung apex. These are new since previous imaging and therefore may be due to an atypical type of infiltrate. There are mild emphysematous changes. No focal consolidation. IVC is distended with reflux of contrast suggesting right heart strain. There is hepatomegaly. Mild wall thickening of the gallbladder suggestive but the gallbladder is contracted. There are possible stones. There is no acute osseous abnormality. Old rib fractures noted. IMPRESSION: 1. No central or proximal segmental pulmonary embolus. 2. Nonspecific mediastinal adenopathy. Follow-up recommended to assure resolution. 3. Nodularities in the left upper lobe which could be due to developing atypical infiltrate given no nodules on recent CT. Follow-up recommended to assure resolution. This could reevaluate the adenopathy within the mediastinum as well. 4. Hepatomegaly. 5. Cholelithiasis with wall thickening of the gallbladder possibly due to under distention. If there are symptoms of cholecystitis, sonography could provide further characterization. Dictated by: Dictated on workstation # [id number] Date of Exam:05/05/23 US ABDOMEN LIMITED [id number] Indication: Abdominal pain Ultrasound the liver and right upper quadrant was performed in routine fashion The liver shows normal echogenicity with no focal lesion. Portal vein is patent with hepatopetal flow. Gallbladder shows borderline wall thickening with some sludge but no definite stones. Common duct measured 4 mm, The pancreas is not well seen due to overlying gas. IVC and aorta appear normal. The right kidney measured 11.7 cm in length and shows no hydronephrosis or focal lesion. There is no ascites. IMPRESSION: There is mild gallbladder wall thickening with some questionable sludge in the gallbladder. No definite stones or biliary dilatation. Dictated by: Dictated on workstation # [id number] Dict: 05/05/23 0932 Trans: 05/05/23 1020 [facility] [id number] Interpreted by: AXEL ROGER MD Electronically signed by: AXEL ROGER MD 05/05/23 1020 Meds As indicated in medications list Assessment/Plan Admission Diagnosis Chest Pain Admission Status: Inpatient Order (span 2 midnights) Reason for Inpatient Admission: Initial evaluation is consistent with a CHF exacerbation with possible cholecystitis. Multiple specialist evaluations are necessary for patient care and treatment. Assessment and Plan Chest Pain Acute on Chronic congestive heart failure -Cardiac enyzymes were negative but initial BNP was elevated -Abdomen is distended and ankles show trace pitting edema lending evidence to a CHF exacerbation -2D echo was performed on 10/11/2022 with EF of 35-40% -Repeat on 10/26/2022 showed an EF of 50-55% -Continue lasix -Continue monitoring I's and O's -Cardiology plans for cardiac catheterization and repeat 2D echocardiogram. Persistent Atrial Fibrillation -Ablation performed in [place] in 2020 -Patient is currently in A-fib -Continue aspirin and xarelto Possible gall bladder disease -Elevated ALP as well as initial imaging studies lend credence to the presence of gall bladder disease -Surgical team plans to discuss a possible laparoscopic cholycystectomy once cleared by medical and cardiology team -Surgical team recommends pain management and clear liquid diet for the time being Possible Pneumonia -Continue treatment with cefepime -Monitor with daily labs and physical exam HTN -Clonidine available as a hypotensive agent -Continue monitoring through serial vitals Non-insulin dependent type II diabetes -Novolog sliding scale insulin available as needed -Continue to monitor with serial chemistries and accuchecks Tobaccoism -Recommend sessation on discharge from hospital Bowel regimen available as needed for constipation DVT prophylaxis: rivaroxaban 20 mg daily Diet: clear liquid Disposition: admit for inpatient management ERIN COLE DO 05/06/23 0435: Supervisory-Addendum Brief Verification & Attestation Participated in pt care: history, MDM, physical Personally performed: exam, history, MDM, supervision of care Care discussed with: Medical Student Procedures: n/a Results interpretation: Verified all documentation Verification and Attestation of Medical Student E/M Service A medical student performed and documented this service in my presence. I reviewed and verified all information documented by the medical student and made modifications to such information, when appropriate. I personally performed the physical exam and medical decision making. Erin Cole, May 06, 2023,04:35 CHAVA CHOUDHARY May 05, 2023 13:38 ERIN COLE DO May 06, 2023 04:35
[2023-05-05] MEDS ORDERED: fentaNYL INJ 100 MCG/2 ML AMP ONE (14:15)
[2023-05-05] MEDS ORDERED: MIDAZOLAM 5 MG/5 ML (VERSED) VIAL ONE (14:15)
[2023-05-05] MEDS ORDERED: NITRO DRIP 25000 MCG/D5W 250 ML IV ONE (14:16)
[2023-05-05] MEDS ORDERED: VERAPAMIL 5 MG/2 ML (CALAN) VIAL IV ONE (14:16)
[2023-05-05] MEDS ORDERED: HEParin 1000 UNIT/ML (10ML VIAL) FOR BOLUS ONE (14:16)
[2023-05-05 14:38] LABS: HEPATITIS C ANTIBODY C Non-Reactive (Non-Reactive)
--- NOTE | 2023-05-05 15:21 | Cardiac Cath Report ---
Cardiac Cath Report Physician (s)/Dental Chair Assembler (s) Physician DEMIAN DUBON MD Pre-Procedure Diagnosis Pre-Procedure Diagnosis: Chest pain Post-Procedure Note Procedure Start Date: May 05, 2023 Name of Procedure: Left heart catheterization Aortic arch angiogram Findings/Procedure Note PROCEDURE NOTE: 42-year-old gentleman admitted with acute chest pain, elevated BNP, has underlying congestive heart failure, no recent cardiac work-up, I advised him for cardiac catheterization possible PTCA. After explaining the procedure to the patient, all pros and cons were explained, all questions were answered. The patient signed the consent and then he was placed in the cardiac catheterization laboratory. Groin was prepped in SL fashion local anesthesia was used. Sheath placed in the right radial artery, Sandoval catheter was advanced to the left ventricular cavity, pressure was measured pullback LV to aorta was done, engage the right and left coronary system, angiogram was done. Then the catheter was pulled to the aortic arch and aortic arch angiogram was done. At the end of the procedure the sheath was removed. Vascular band was used FINDINGS: Hemodynamics LV 115/35, end-diastolic pressure of 35 Aorta 110/87 mean of 97 ANATOMY: Left Main is free of obstructive disease Left Anterior Descending has 40 to 50% stenosis at the mid LAD nonobstructive disease Left Circumflex has moderate ectasia proximally, small vessel disease nonobstructive disease Right Coronary Artery is dominant artery with no obstructive disease LV Gram was not done, pressure was measured Aorta evaluation done with aortic arch angiogram showing normal aortic arch, no dissection or aneurysm, normal origin of the brachiocephalic artery, left carotid and left subclavian arteries CONCLUSION: Mild to moderate coronary ectasia in the circumflex artery, 40 to 50% stenosis in the mid LAD otherwise nonobstructive disease Significantly elevated left ventricular end-diastolic pressure Normal aortic arch and great vessels of the neck DISCUSSION AND RECOMMENDATION: Chest pain is probably due to his severe cardiomyopathy. That is none ischemic in nature, continue to maximize medical therapy Anesthesia Type: Conscious Sedation Estimated blood loss (mL): 10 ml Contrast Amount: 50 ml Total Radiation Dose: 628 mGy Post-Procedure Diagnosis Post-operative diagnosis: Coronary artery disease Congestive heart failure, chronic left ventricular systolic dysfunction, nonischemic cardiomyopathy Hyperlipidemia Hypertension DEMIAN DUBON MD May 05, 2023 15:21
--- NOTE | 2023-05-05 15:25 | Cardiac Procedure Note-CS/ASA ---
Pre-Procedure Note Pre-Op Procedure Note Date of Available H&P: May 05, 2023 Date H&P Reviewed: May 05, 2023 Time H&P Reviewed: 13:00 History & Physical: H&P Reviewed, Patient Examed, No changes noted Pre-Operative Diagnosis: Chest pain Moderate Sedation PreProcedure Time 15:25 ASA Score 3 Airway Lungs Heart ASA score ASA 1: a normal healthy patient ASA 2: a patient with a mild systemic disease (mid diabetes, controlled hypertension, obesity ASA 3: a patient with a severe systemic disease that limits activity (angina, COPD, prior Myocardial infarction) ASA 4: a patient with an incapacitating disease that is a constant threat to life (CHF, renal failure) ASA 5: a moribund patient not expected to survive 24 hrs. (ruptured aneurysm) ASA 6: a declared brain- patient whose organs are being harvested. For emergent operations, add the letter E after the classification Mallampati Classification Grade 3 Sedation Plan Analgesia, Amnesia, Plan communicated to team members, Discussed options with patient/fam, Discussed risks with patient/fam The patient is an appropriate candidate to undergo the planned procedure, sedation, and anesthesia. The patient immediately re-assessed prior to indication. DEMIAN DUBON MD May 05, 2023 15:25
[2023-05-05] MEDS: NS IV 1000 ML 1,000 ML IV SCH (16:14)
[2023-05-05] MEDS: FUROSEMIDE 40 MG/4 ML INJ (LASIX) IVP SCH (16:14)
[2023-05-05] MEDS ORDERED: RIVAROXABAN 20 MG TABLET (XARELTO) PO SCH (17:00)
[2023-05-05] MEDS ORDERED: FAMOTIDINE 20 MG (PEPCID) TABLET PO SCH (21:00)
[2023-05-05] MEDS ORDERED: NON-FORMULARY MEDICATION 1 EA EA (Lisinopril 2.5 MG) PO SCH (21:00)
[2023-05-05] MEDS ORDERED: lisINopril 5 MG (PRINIVIL) TABLET PO SCH (21:00)
[2023-05-05] MEDS ORDERED: CEFEPIME 1 GM/10 ML VIAL ONE (21:02)
[2023-05-06] MEDS: NS IV 1000 ML 1,000 ML IV SCH ×2 (01:02→11:10)
[2023-05-06] MEDS ORDERED: CEFEPIME 1 GM/10 ML VIAL ONE (02:47)
[2023-05-06] MEDS: CEFEPIME 1,000 MG/NS 50 ML IVPB IV SCH ×4 (02:51→07:57)
[2023-05-06 03:21] VITALS: BP 104/82
[2023-05-06 04:57] LABS: BASOPHILS % (AUTO) 0 % (0-10); EOSINOPHILS # (AUTO) 0.6 10^3/uL (0.0-0.3); EOSINOPHILS % (AUTO) 6 % (0-10); HEMATOCRIT 42 % (40-54); HEMOGLOBIN 13.4 g/dL (13.3-17.7); LYMPHOCYTES # (AUTO) 1.1 10^3/uL (1.0-4.0); LYMPHOCYTES % (AUTO) 12 % (12-44); MEAN CORPUSCULAR HEMOGLOBIN 28 pg (25-34); MEAN CORPUSCULAR HGB CONC 32 g/dL (32-36); MEAN CORPUSCULAR VOLUME 89 fL (80-99); MEAN PLATELET VOLUME 11.4 fL (9.0-12.2); MONOCYTES # (AUTO) 0.8 10^3/uL (0.0-1.0); MONOCYTES % (AUTO) 8 % (0-12); NEUTROPHILS # (AUTO) 7.2 10^3/uL (1.8-7.8); NEUTROPHILS % (AUTO) 73 % (42-75); PLATELET COUNT 184 10^3/uL (130-400); WHITE BLOOD COUNT 9.8 10^3/uL (4.3-11.0)
[2023-05-06 05:07] LABS: ALBUMIN 3.7 GM/DL (3.2-4.5); POTASSIUM 3.9 MMOL/L (3.6-5.0)
[2023-05-06 05:08] LABS: CALCIUM 8.8 MG/DL (8.5-10.1)
[2023-05-06 05:09] LABS: TOTAL PROTEIN 6.5 GM/DL (6.4-8.2)
[2023-05-06 05:11] LABS: BILIRUBIN,TOTAL 1.4 MG/DL (0.1-1.0)
[2023-05-06 05:13] LABS: CREATININE SERUM 0.89 MG/DL (0.60-1.30)
[2023-05-06] MEDS: inSUlin ASPART (NovoLOG) 1 UNIT/0.01 ML (CHARGE PER UNIT) SC SCH ×2 (05:27→11:10)
[2023-05-06] MEDS: FUROSEMIDE 40 MG/4 ML INJ (LASIX) IVP SCH (06:39)
[2023-05-06] MEDS: ASPIRIN enteric coated 81MG TABLET PO SCH (07:57)
[2023-05-06] MEDS: DOCUSATE SODIUM 100 MG CAPSULE PO SCH (07:57)
[2023-05-06] MEDS: SENNOSIDES 8.6 MG (SENOKOT) TAB PO SCH (07:57)
[2023-05-06 08:00] VITALS: BP 108/79
[2023-05-06] MEDS ORDERED: ASPIRIN 81 MG CHEWABLE TABLET PO SCH (09:00)
[2023-05-06] MEDS ORDERED: EMPAGLIFLOZIN 10 MG TABLET (JARDIANCE) PO SCH (09:00)
--- NOTE | 2023-05-06 10:29 | Cardiology Progress Note ---
Subjective Date Seen by Provider: May 06, 2023 Time Seen by Provider: 10:27 Subjective/Events-last exam Patient is laying down in bed, complaining of abdominal pain today. No chest pain was reported Review of Systems General: No Chills, No Night Sweats, No Fatigue, No Malaise, No Appetite, No Other HEENT: No Head Aches, No Visual Changes, No Eye Pain, No Ear Pain, No Dysphasia, No Sinus Congestion, No Post Nasal Drip, No Sore Throat, No Other Pulmonary: No Dyspnea, No Cough, No Pleuritic Chest Pain, No Other Cardiovascular: No: Chest Pain, Palpitations, Orthopnea, Paroxysmal Noc. Dyspnea, Edema, Lt Headedness, Other Focused Exam Lactate Level 05/04/23 20:55: Lactic Acid Level 0.91 Objective-Cardiology Exam Last Set of Vital Signs Vital Signs 05/06/23 05/06/23 08:00 08:02 Temp 35.9 Pulse 66 Resp 24 B/P (MAP) 108/79 (89) Pulse Ox 100 O2 Delivery Room Air O2 Flow Rate 2.00 I&O Intake and Output 05/06/23 00:00 Intake Total 650 ml Output Total 1700 ml Balance -1050 ml Intake Oral 600 ml IV Total 50 ml Output Urine Total 1700 ml General: Alert, Oriented X3, Cooperative HEENT: Atraumatic, PERRLA Neck: Supple, No JVD, No Thyromegaly Lungs: Clear to Auscultation, Normal Air Movement Heart: Regular Rate, Normal S1, Normal S2, No Murmurs Abdomen: Normal Bowel Sounds, Soft, No Tenderness, No Hepatosplenomegaly, No Masses Extremities: No Clubbing, No Cyanosis, No Edema, Normal Pulses, No Tenderness/Swelling Skin: No Rashes, No Breakdown, No Significant Lesion Neuro: Normal Gait, Normal Speech, Strength at 5/5 X4 Ext, Normal Tone, Sensation Intact Psych/Mental Status: Mental Status NL, Mood NL Results Lab Laboratory Tests 05/06/23 04:50 A/P-Cardiology Admission Diagnosis Chest pain Congestive heart failure Atrial fibrillation Hypertension Assessment/Plan Chest pain, multiple admission for recurrent chest pain Undetermined etiology Questionable coronary artery disease, reporting cardiac catheterization done in 2019. Not sure of the results. Cardiac enzymes were negative There is slightly distended gallbladder but no sludge was identified. Cardiac catheterization was carried out on May 05, 2023 showing nonobstructive disease. Abdominal pain, distended gallbladder, patient has been requesting pain medication Managed by medical team Congestive heart failure, acute on chronic left ventricular systolic dysfunction, nonischemic in nature. 2D echo was done in October 11, 2022 with ejection fraction 35 to 40% Repeat echo was done on October 26, 2022 with ejection fraction 50 to 55% Repeat 2D echo done on May 05, 2023 showing normal left ventricular size, ejection fraction 45 to 50%, moderate mitral regurgitation moderate tricuspid regurgitation, PA pressure 35 to 40 mmHg. Maintained on diuretics. Feeling better Shortness of breath. Had thoracentesis in January [address] Tadeo Recurrent pleural effusion Continue on diuretics Persistent atrial fibrillation Had ablation done in late 2020 in [place] Was maintained on oral anticoagulation History of nonsustained wide-complex tachycardia in October 2022 Questionable aberrant conduction during A-fib with RVR. History of illicit drug use, methamphetamine use Has been absent for the past 7 months, tested positive for cannabinoids. History of EtOH abuse, has been avoiding Hyperlipidemia History of noncompliance with medication DEMIAN DUBON MD May 06, 2023 10:29
--- NOTE | 2023-05-06 11:26 | Progress Note ---
Subjective Date Seen by a Provider: May 06, 2023 Time Seen by a Provider: 11:00 Subjective/Events-last exam doing better. less abd pain. tolerating clears. no nausea/vomiting. SOB improving. 2D echo yesterday with EF more in line with 50%. Focused Exam Lactate Level 05/04/23 20:55: Lactic Acid Level 0.91 Objective Exam Vital Signs Date Time Temp Pulse Resp B/P (MAP) Pulse Ox O2 Delivery O2 Flow Rate FiO2 05/06/23 08:02 100 Room Air 05/06/23 08:00 35.9 66 24 108/79 (89) 94 Nasal Cannula 2.00 05/06/23 07:00 62 05/06/23 03:21 36.3 71 16 104/82 (89) 97 Nasal Cannula 2.00 05/06/23 01:00 80 05/05/23 23:29 36.2 76 12 100/71 (81) 97 Nasal Cannula 05/05/23 23:01 Room Air 05/05/23 21:57 Nasal Cannula 2.00 05/05/23 19:45 95 Room Air 05/05/23 19:40 36.7 68 22 117/79 (92) 98 Room Air 05/05/23 19:00 80 05/05/23 16:30 79 10 118/76 (90) 97 Nasal Cannula 2.00 05/05/23 16:15 78 13 99/80 (86) 97 Nasal Cannula 2.00 05/05/23 16:06 36.3 05/05/23 16:00 74 13 102/74 (83) 97 Nasal Cannula 2.00 05/05/23 15:45 76 14 97/66 (76) 91 Nasal Cannula 2.00 05/05/23 15:30 85 12 118/70 (86) 91 Nasal Cannula 2.00 05/05/23 13:30 79 05/05/23 12:00 84 12 107/70 (82) 98 Nasal Cannula 2.00 05/05/23 11:31 36.3 78 14 113/78 (90) 90 Nasal Cannula 2.00 I & O 05/06/23 07:00 Intake Total 1950 ml Output Total 2125 ml Balance -175 ml Capillary Refill : Less Than 3 Seconds General Appearance: No Apparent Distress HEENT: PERRL/EOMI Neck: Full Range of Motion Respiratory: Chest Non Tender, Rhonci, Wheezing Cardiovascular: Regular Rate, Rhythm Gastrointestinal: normal bowel sounds, soft, tenderness Extremity: Normal Capillary Refill Neurologic/Psychiatric: Alert, Oriented x3 Skin: Normal Color Lymphatic: No Adenopathy Results Lab Laboratory Tests 05/05/23 16:00: Glucometer 75 05/05/23 20:56: Glucometer 136H 05/06/23 04:50: White Blood Count 9.8, Red Blood Count 4.78, Hemoglobin 13.4, Hematocrit 42, Mean Corpuscular Volume 89, Mean Corpuscular Hemoglobin 28, Mean Corpuscular Hemoglobin Concent 32, Red Cell Distribution Width 15.9H, Platelet Count 184, Mean Platelet Volume 11.4, Immature Granulocyte % (Auto) 0, Neutrophils (%) (Auto) 73, Lymphocytes (%) (Auto) 12, Monocytes (%) (Auto) 8, Eosinophils (%) (Auto) 6, Basophils (%) (Auto) 0, Neutrophils # (Auto) 7.2, Lymphocytes # (Auto) 1.1, Monocytes # (Auto) 0.8, Eosinophils # (Auto) 0.6H, Basophils # (Auto) 0.0, Immature Granulocyte # (Auto) 0.0, Sodium Level 137, Potassium Level 3.9, Chloride Level 106, Carbon Dioxide Level 22, Anion Gap 9, Blood Urea Nitrogen 15, Creatinine 0.89, Estimat Glomerular Filtration Rate 109, BUN/Creatinine Ratio 17, Glucose Level 104, Calcium Level 8.8, Corrected Calcium 9.0, Total Bilirubin 1.4H, Aspartate Amino Transf (AST/SGOT) 35H, Alanine Aminotransferase (ALT/SGPT) 29, Alkaline Phosphatase 198H, Total Protein 6.5, Albumin 3.7 05/06/23 10:51: Glucometer 101 Microbiology 05/04/23 Blood Culture - Preliminary, Resulted No growth Assessment/Plan Assessment/Plan Assess & Plan/Chief Complaint chest pain/exacerbation CHF with right pneumonia and chronic calculous rojelio cystitis. s/p cardiac cath with no significant CAD. echo this admission EF 55%. GB sx under control. will proceed with scheduling OP laparoscopic cholecystectomy in 2 weeks. MARIANN SMITH MD May 06, 2023 11:26
[2023-05-06] MEDS ORDERED: OXC5T PO (11:47)
[2023-05-06] MEDS ORDERED: FURO40TA4 PO (11:47)
[2023-05-06] MEDS ORDERED: PANT40TA52 PO (11:47)
[2023-05-06] MEDS ORDERED: FAMO20TA5 PO (11:47)
[2023-05-06] MEDS ORDERED: MTP25TSR PO (11:47)
[2023-05-06] MEDS ORDERED: ASPI-999 PO (11:47)
[2023-05-06] MEDS ORDERED: LISI2.5T13 PO (11:47)
[2023-05-06] MEDS ORDERED: RIVA20TA2 PO (11:47)
[2023-05-06] MEDS ORDERED: EMPA10TA PO (11:47)
[2023-05-06] MEDS ORDERED: SUCR1TAB36 PO (11:47)
--- NOTE | 2023-05-06 11:48 | Discharge Summary ---
Discharge Summary Hospital Course Was the Problem List Reviewed?: Yes Problems/Dx: (1) Acute on chronic HFrEF (heart failure with reduced ejection fraction) Status: Acute Hospital Course Date of Admission: May 04, 2023 at 23:08 Admission Diagnosis : Family Physician/Provider: Mary Robles Aprn Date of Discharge: 05/06/23 Discharge Diagnosis: [ ] Hospital Course: Our patient is a 42 yo M with a history of persistent atrial fibrillation, HTN, CHF, previous cardioablation, previous non-occlusive cardiac catheterization, and methamphetamine use that was admitted for chest pain. He consistently described the pain as a heavy pressure localized to the chest and epigastric region throughout his stay and notes multiple previous occurrences of such pain. Upon arrival to the ER he was given aspirin, nitropaste, toradol, cefepime, dilaudid, and lasix with mild improvement in his symptoms. Initial chest x-ray showed diffuse chronic changes with scarring or atalectasis in the right lung base. Chest CTA showed no evidence of a PE, but did show mediastinal adenopathy, nodularities in the left upper lobe, hepatomegaly, and possible cholelithiasis with gall bladder wall thickening. Initial lab-work showed elevations in ALP, CK-MB, myoglobin, and BNP so a cardiology consult was ordered. Troponin and repeat were normal. Cardiac catheterization was conducted that showed mild to moderate coronary ectasia in the circumflex artery, 40-50% in mid LAD but otherwise showed no obstructive disease. He had significantly elevated left ventricular end-diastolic pressure but the aorta and great vessels showed no abnormal findings. Repeat echocardiogram showed an EF of 45-50%. He was started on jardiance. Due to the increased ALP and significant abdominal pain, he was evaluated by Dr. Fernández who plans to perform a cholecystectomy on an outpatient basis. As his pain continued after significant cardiac causes were investigated, it was determined that his pain is more likely GI in origin and he will be discharged on carafate for possible gastritis. He was instructed to continue his at-home anti-acid medications. Labs and Pending Lab Test: Laboratory Tests 05/05/23 16:00: Glucometer 75 05/05/23 20:56: Glucometer 136H 05/06/23 04:50: White Blood Count 9.8, Red Blood Count 4.78, Hemoglobin 13.4, Hematocrit 42, Mean Corpuscular Volume 89, Mean Corpuscular Hemoglobin 28, Mean Corpuscular Hemoglobin Concent 32, Red Cell Distribution Width 15.9H, Platelet Count 184, Mean Platelet Volume 11.4, Immature Granulocyte % (Auto) 0, Neutrophils (%) (Auto) 73, Lymphocytes (%) (Auto) 12, Monocytes (%) (Auto) 8, Eosinophils (%) (Auto) 6, Basophils (%) (Auto) 0, Neutrophils # (Auto) 7.2, Lymphocytes # (Auto) 1.1, Monocytes # (Auto) 0.8, Eosinophils # (Auto) 0.6H, Basophils # (Auto) 0.0, Immature Granulocyte # (Auto) 0.0, Sodium Level 137, Potassium Level 3.9, Chloride Level 106, Carbon Dioxide Level 22, Anion Gap 9, Blood Urea Nitrogen 15, Creatinine 0.89, Estimat Glomerular Filtration Rate 109, BUN/Creatinine Ratio 17, Glucose Level 104, Calcium Level 8.8, Corrected Calcium 9.0, Total Bilirubin 1.4H, Aspartate Amino Transf (AST/SGOT) 35H, Alanine Aminotransferase (ALT/SGPT) 29, Alkaline Phosphatase 198H, Total Protein 6.5, Albumin 3.7 05/06/23 10:51: Glucometer 101 Microbiology 05/04/23 Blood Culture - Preliminary, Resulted No growth Home Meds Active Carafate (Sucralfate) 1 Gram Tablet 1 Gm PO ACHS Jardiance (Empagliflozin) 10 Mg Tablet 10 Mg PO DAILY Oxyir Tablet (Oxycodone HCl) 5 Mg Tab 10 Mg PO Q4H PRN Furosemide 40 Mg Tablet 80 Mg PO BID TAKES 2 (40MG) TABS Aspirin 81 Mg Tab.chew 81 Mg PO DAILY Pantoprazole Sodium 40 Mg Tablet.dr 40 Mg PO HS Metoprolol Succinate 25 Mg Tab.er.24h 25 Mg PO HS Lisinopril 2.5 Mg Tablet 2.5 Mg PO HS Xarelto Tablet (Rivaroxaban) 20 Mg Tablet 20 Mg PO HS Famotidine 20 Mg Tablet 20 Mg PO HS Reported Amitriptyline HCl 50 Mg Tablet 50 Mg PO HS PRN Assessment/Pt Instructions PCP 1 week Discharge Planning: <30 minutes discharge planning Discharge Physical Examination Vital Signs Vital Signs Date Time Temp Pulse Resp B/P (MAP) Pulse Ox O2 Delivery O2 Flow Rate FiO2 05/06/23 08:02 100 Room Air 05/06/23 08:00 35.9 66 24 108/79 (89) 2.00 General Appearance: No Apparent Distress, WD/WN, Chronically ill Allergies: Coded Allergies: hydrocodone (Verified Allergy, Severe, ITCHING, 08/05/22) spironolactone (Verified Allergy, Mild, 01/30/23) breast tendernes/swelling Penicillins (Verified Allergy, Unknown, 11/09/20) Discharge Summary Date of Admission May 04, 2023 at 23:08 Date of Discharge Discharge Date: May 06, 2023 Admission Diagnosis Chest Pain BK COLE DO May 06, 2023 11:48
[2023-05-06 12:00] VITALS: BP 121/67
--- NOTE | 2023-05-06 12:20 | Progress Note ---
CHAVA CHOUDHARY 05/06/23 1220: Progress Note Our patient is a 42 yo M with a history of persistent atrial fibrillation, HTN, CHF, previous cardioablation, previous non-occlusive cardiac catheterization, and methamphetamine use that was admitted for chest pain. He consistently described the pain as a heavy pressure localized to the chest and epigastric region throughout his stay and notes multiple previous occurrences of such pain. Upon arrival to the ER he was given aspirin, nitropaste, toradol, cefepime, dilaudid, and lasix with mild improvement in his symptoms. Initial chest x-ray showed diffuse chronic changes with scarring or atalectasis in the right lung base. Chest CTA showed no evidence of a PE, but did show mediastinal adenopathy, nodularities in the left upper lobe, hepatomegaly, and possible cholelithiasis with gall bladder wall thickening. Initial lab-work showed elevations in ALP, CK-MB, myoglobin, and BNP so a cardiology consult was ordered. Troponin and repeat were normal. Cardiac catheterization was conducted that showed mild to moderate coronary ectasia in the circumflex artery, 40-50% in mid LAD but otherwise showed no obstructive disease. He had significantly elevated left ventricular end-diastolic pressure but the aorta and great vessels showed no abnormal findings. Repeat echocardiogram showed an EF of 45-50%. He was started on jardiance. Due to the increased ALP and significant abdominal pain, he was evaluated by Dr. Fernández who plans to perform a cholecystectomy on an outpatient basis. As his pain continued after significant cardiac causes were investigated, it was determined that his pain is more likely GI in origin and he will be discharged on carafate for possible gastritis. He was instructed to continue his at-home anti-acid medications. ERIN COLE DO 05/06/23 1423: Supervisory-Addendum Brief Verification & Attestation Participated in pt care: history, MDM, physical Personally performed: exam, history, MDM, supervision of care Care discussed with: Medical Student Procedures: n/a Results interpretation: Verified all documentation Verification and Attestation of Medical Student E/M Service A medical student performed and documented this service in my presence. I re viewed and verified all information documented by the medical student and made modifications to such information, when appropriate. I personally performed the physical exam and medical decision making. Erin Cole, May 06, 2023,14:22 CHAVA CHOUDHARY 28, 2023 12:20 ERIN COLE DO May 06, 2023 14:23
--- NOTE | 2023-05-06 12:40 | Discharge Inst-Surgical ---
D/C Lap Instructions-KIDO New, Converted, or Re-Newed RX: RX on Chart Patient scheduled for laparoscopic cholecystectomy on (05/12) Activity as tolerated Low Fat Diet Meds: augmentin 875mg PO BID x5 days lortab 7.5/325 PO q 4 hrs PRN Symptoms to Report: Fever over 101 degree F, Nausea/Vomiting Infection Signs and Symptoms to report: Increased redness, Foul odor of wound, Increased drainage Bathing instructions: May shower Operative Area Clean/Dry; Keep incision clean/dry If any problems/questions: Contact your physician or go to Emergency Room MARIANN SMITH MD May 06, 2023 12:40
== END 2023-05-06 13:08 | disposition home or self-care (01) | DRG 286 ==
LOC: EDUNIT# 19:37 → ER 19:39 → ICU 23:08 → CSD 05-05 16:38
PROVIDERS: ADMIT Internal Medicine; ATTEND Internal Medicine
PROC: 4A023N7 Measurement of Cardiac Sampling and Pressure, Left Heart, Percutaneous Approach (ICD-10-PCS; principal; 2023-05-05)
PROC: B2111ZZ Fluoroscopy of Multiple Coronary Arteries using Low Osmolar Contrast (ICD-10-PCS; 2023-05-05)
PROC: B3101ZZ Fluoroscopy of Thoracic Aorta using Low Osmolar Contrast (ICD-10-PCS; 2023-05-05)
DX: I11.0 Hypertensive heart disease with heart failure (principal); I50.23 Acute on chronic systolic (congestive) heart failure; I48.19 Other persistent atrial fibrillation; I48.92 Unspecified atrial flutter; K80.10 Calculus of gallbladder with chronic cholecystitis without obstruction; Z79.01 Long term (current) use of anticoagulants; E78.00 Pure hypercholesterolemia, unspecified; K21.9 Gastro-esophageal reflux disease without esophagitis; E11.9 Type 2 diabetes mellitus without complications; E66.9 Obesity, unspecified; I25.5 Ischemic cardiomyopathy; I25.10 Atherosclerotic heart disease of native coronary artery without angina pectoris; Z20.822 Contact with and (suspected) exposure to COVID-19; Z68.32 Body mass index [BMI] 32.0-32.9, adult; F17.210 Nicotine dependence, cigarettes, uncomplicated; F12.90 Cannabis use, unspecified, uncomplicated; F10.11 Alcohol abuse, in remission; Z88.5 Allergy status to narcotic agent; Z88.0 Allergy status to penicillin; Z91.09 Other allergy status, other than to drugs and biological substances; Z79.82 Long term (current) use of aspirin; Z79.84 Long term (current) use of oral hypoglycemic drugs; Z79.891 Long term (current) use of opiate analgesic
CPT/HCPCS: 36221; 36415; 71045; 71275; 76705; 80053; 80074; 80306; 80320; 82150; 82550; 82553; 82947; 83605; 83690; 83735; 83874; 83880; 84443; 84484; 85025; 85379; 85610; 85730; 87040; 87389; 87636; 93005; 93041; 93306; 93458; 94640; 94664

== ENCOUNTER 2023-05-08 17:40 | Emergency (ER) | payer OTHER ==
[~2023-05-08 17:40] MED LIST changes: +AMIT50TA3 PO; +ASPI-999 PO; +OXC5T PO; +SUCR1TAB36 PO
[2023-05-08 18:06] VITALS: BP 125/83
[2023-05-08] MEDS ORDERED: NS IV 1000 ML 1,000 ML IV STA (18:20)
[2023-05-08] MEDS ORDERED: ONDANSETRON 4 MG/2 ML (SDV) Z0FRAN IVP ONE (18:30)
[2023-05-08 18:31] LABS: BASOPHILS % (AUTO) 0 % (0-10); EOSINOPHILS # (AUTO) 0.6 10^3/uL (0.0-0.3); EOSINOPHILS % (AUTO) 7 % (0-10); HEMATOCRIT 47 % (40-54); HEMOGLOBIN 14.6 g/dL (13.3-17.7); LYMPHOCYTES # (AUTO) 1.1 10^3/uL (1.0-4.0); LYMPHOCYTES % (AUTO) 12 % (12-44); MEAN CORPUSCULAR HEMOGLOBIN 29 pg (25-34); MEAN CORPUSCULAR HGB CONC 31 g/dL (32-36); MEAN CORPUSCULAR VOLUME 91 fL (80-99); MEAN PLATELET VOLUME 11.8 fL (9.0-12.2); MONOCYTES # (AUTO) 0.8 10^3/uL (0.0-1.0); MONOCYTES % (AUTO) 9 % (0-12); NEUTROPHILS # (AUTO) 6.5 10^3/uL (1.8-7.8); NEUTROPHILS % (AUTO) 72 % (42-75); PLATELET COUNT 185 10^3/uL (130-400); WHITE BLOOD COUNT 9.1 10^3/uL (4.3-11.0)
--- NOTE | 2023-05-08 18:31 | ED GI ---
General Chief Complaint: Abdominal/GI Problems Stated Complaint: AB PAIN Nursing Triage Note: PT AMB TO TRIAGE WITH C/O NOT BEING ABLE TO EATING AND VOMITTING SINCE TUESDAY. PT STATES HES SCHEDULED FOR A LAP MARIKA ON TUESDAY History of Present Illness Date Seen by Provider: May 08, 2023 Time Seen by Provider: 18:28 Initial Comments Male presents with nausea vomiting reports having a hard time eating. He reports is been going on for couple days. He was just discharged recently from the hospital reports he been not feeling well since then. Patient was admitted for chest pain found to have a CT and ultrasound that showed stability of discharge she did not notice.. While in the hospital that was found to have known dilated cardiomyopathy but no vessel disease that required stenting or further management. He is currently on medical management for his cardi omyopathy. Patient presents mainly today just because of the nausea vomiting and just not feeling well. He is scheduled to have a cholecystectomy on 05/12/[address] Fernández. Allergies and Home Medications Allergies Coded Allergies: hydrocodone (Verified Allergy, Severe, ITCHING, 08/05/22) spironolactone (Verified Allergy, Mild, 01/30/23) breast tendernes/swelling Penicillins (Verified Allergy, Unknown, 11/09/20) Patient Home Medication List Home Medication List Reviewed: Yes Amitriptyline HCl (Amitriptyline HCl) 50 Mg Tablet, 50 MG PO HS PRN for SLEEP, (Reported) Entered as Reported by: KLAUDIA OTTO on 05/05/23 1151 Aspirin (Aspirin) 81 Mg Tab.chew, 81 MG PO DAILY Prescribed by: BK COLE on 05/06/23 114 Empagliflozin (Jardiance) 10 Mg Tablet, 10 MG PO DAILY Prescribed by: BK COLE on 05/06/23 1147 Famotidine (Famotidine) 20 Mg Tablet, 20 MG PO HS Prescribed by: BK COLE on 05/06/23 1147 Furosemide (Furosemide) 40 Mg Tablet, 80 MG PO BID Prescribed by: BK COLE on 05/06/23 114 Lisinopril (Lisinopril) 2.5 Mg Tablet, 2.5 MG PO HS Prescribed by: BK COLE on 05/06/23 1147 Metoprolol Succinate (Metoprolol Succinate) 25 Mg Tab.er.24h, 25 MG PO HS Prescribed by: BK COLE on 05/06/23 1147 Oxycodone Hcl (Oxyir Tablet) 5 Mg Tab, 10 MG PO Q4H PRN for PAIN-SEE DOSE INSTRUCTIONS Prescribed by: BK COLE on 05/06/23 1148 Pantoprazole Sodium (Pantoprazole Sodium) 40 Mg Tablet.dr, 40 MG PO HS Prescribed by: KB COLE on 05/06/23 1147 Rivaroxaban (Xarelto Tablet) 20 Mg Tablet, 20 MG PO HS Prescribed by: BK COLE on 05/06/23 1147 Sucralfate (Carafate) 1 Gram Tablet, 1 GM PO ACHS Prescribed by: BK COLE on 05/06/23 1147 Discontinued Medications Aspirin (Aspirin EC) 81 Mg Tablet.dr, 81 MG PO HS, (Reported) Discontinued Reason: Prescription changed Entered as Reported by: KLAUDIA OTTO on 02/17/23 1153 Empagliflozin (Jardiance) 10 Mg Tablet, 10 MG PO HS, (Reported) Discontinued Reason: No Longer Taking Entered as Reported by: KLAUDIA OTTO on 02/17/23 1153 Furosemide (Furosemide) 80 Mg Tablet, 80 MG PO BID, (Reported) Discontinued Reason: No Longer Taking Entered as Reported by: KLAUDIA OTTO on 02/17/23 1153 Oxycodone HCl/Acetaminophen (Percocet 7.5-325 mg Tablet) 1 Each Tablet, 1 EACH PO Q6H PRN for PAIN-MODERATE (5-7) Discontinued Reason: Duplicate Order Prescribed by: JACOBY LINK on 02/17/23 1331 Trazodone HCl (Trazodone HCl) 50 Mg Tablet, 50 MG PO HS, (Reported) Discontinued Reason: No Longer Taking Entered as Reported by: KLAUDIA OTTO on 02/17/23 1153 Review of Systems Review of Systems Constitutional: No chills, No fever Respiratory: No Symptoms Reported Cardiovascular: No Symptoms Reported Gastrointestinal: See HPI, Nausea, Vomiting Genitourinary: No Symptoms Reported Musculoskeletal: no symptoms reported Skin: no symptoms reported Psychiatric/Neurological: No Symptoms Reported Endocrine: No Symptoms Reported Hematologic/Lymphatic: No Symptoms Reported Past Timeadw-Hfzsox-Fcmrem Hx Patient Social History Tobacco Use?: Yes Tobacco type used: Cigarettes Substance use?: No Alcohol Use?: No Pt feels they are or have been: No Immunizations Up To Date Tetanus Booster (TDap): Unknown First/Initial COVID19 Vaccinat: N/A Second COVID19 Vaccination [place]: N/A Third COVID19 Vaccination Date: N/A Past Medical History Surgery/Hospitalization HX: hernia repair, appendectomy Htn, chf, afib Surgeries: Yes (HERNIA REPAIR; THORACENTESIS 01/18/23;CARDIAC CATH; CARDIOVERSIONS) Abdominal, Appendectomy, Cardiac Respiratory: Yes (PLEURAL EFFUSION/THORACENTESIS) Cardiac: Yes (CHF 30-35% EF AT LOWEST; ATRIAL FIB/FLUTTER; CHF;VARICOSE VEINS;RBBB) Atrial Fibrillation, Cardiomyopathy, High Cholesterol, Hypertension Neurological: No Genitourinary: No Gastrointestinal: Yes Gastroesophageal Reflux Musculoskeletal: No Endocrine: Yes (OBESITY, borderline diabetes) HEENT: No Cancer: No Psychosocial: Yes (SUBSTANCE ABUSE) Integumentary: Yes (TATTOOS) Blood Disorders: No Family Medical History Heart Disease, Diabetes SOCIAL HISTORY: -ETOH--HEAVY, REGULAR USE -DRUGS--METHAMPHETAMINES--BOTH IV USE AND SMOKES IT -SMOKES 1 PPD PAST SURGICAL HISTORY: -THORACENTESIS 01/2023 -APPENDECTOMY -HERNIA REPAIR -CARDIOVERSIONS ECHOCARDIOGRAM 11/13/20--EF 30-35%, NO REGIONAL WALL MOTION ABNORMALITIES. EXTREME NON-COMPLIANCE IN ALL ASPECTS OF CARE MULTIPLE VISITS HERE SINCE MOVING HERE FROM [facility] 10/2020 Physical Exam Vital Signs Vital Signs - First Documented 05/08/23 18:06 Temp 36.7 Pulse 79 Resp 18 B/P (MAP) 125/83 (97) Pulse Ox 98 O2 Delivery Room Air Capillary Refill : Height/Weight/BMI Height: '" Weight: lbs. oz. kg; 33.13 BMI Method: General Appearance: WD/WN, no apparent distress Respiratory: lungs clear, normal breath sounds Cardiovascular: normal peripheral pulses, regular rate, rhythm Gastrointestinal: soft; No guarding, No rebound; tenderness (Mild diffuse) Extremities: normal range of motion Neurologic/Psychiatric: alert, normal mood/affect, oriented x 3 Skin: normal color, warm/dry Procedures/Interventions Date of ETT Placement: Oct 08, 2022 Time of ETT Placement: 1526 Progress/Results/Core Measures Results/Orders Lab Results Laboratory Tests Test 05/08/23 18:28 05/08/23 18:54 Range/Units White Blood Count 9.1 4.3-11.0 10^3/uL Red Blood Count 5.11 4.30-5.52 10^6/uL Hemoglobin 14.6 13.3-17.7 g/dL Hematocrit 47 40-54 % Mean Corpuscular Volume 91 80-99 fL Mean Corpuscular Hemoglobin 29 25-34 pg Mean Corpuscular Hemoglobin Concent 31 L 32-36 g/dL Red Cell Distribution Width 16.0 H 10.0-14.5 % Platelet Count 185 130-400 10^3/uL Mean Platelet Volume 11.8 9.0-12.2 fL Immature Granulocyte % (Auto) 0 % Neutrophils (%) (Auto) 72 42-75 % Lymphocytes (%) (Auto) 12 12-44 % Monocytes (%) (Auto) 9 0-12 % Eosinophils (%) (Auto) 7 0-10 % Basophils (%) (Auto) 0 0-10 % Neutrophils # (Auto) 6.5 1.8-7.8 10^3/uL Lymphocytes # (Auto) 1.1 1.0-4.0 10^3/uL Monocytes # (Auto) 0.8 0.0-1.0 10^3/uL Eosinophils # (Auto) 0.6 H 0.0-0.3 10^3/uL Basophils # (Auto) 0.0 0.0-0.1 10^3/uL Immature Granulocyte # (Auto) 0.0 0.0-0.1 10^3/uL Lipase 6 L 8-78 U/L Sodium Level 141 135-145 MMOL/L Potassium Level 3.9 3.6-5.0 MMOL/L Chloride Level 106 98-107 MMOL/L Carbon Dioxide Level 26 21-32 MMOL/L Anion Gap 9 5-14 MMOL/L Blood Urea Nitrogen 14 7-18 MG/DL Creatinine 0.84 0.60-1.30 MG/DL Estimat Glomerular Filtration Rate 111 BUN/Creatinine Ratio 17 Glucose Level 98 70-105 MG/DL Calcium Level 9.7 8.5-10.1 MG/DL Corrected Calcium 9.6 8.5-10.1 MG/DL Total Bilirubin 1.2 H 0.1-1.0 MG/DL Aspartate Amino Transf (AST/SGOT) 34 5-34 U/L Alanine Aminotransferase (ALT/SGPT) 27 0-55 U/L Alkaline Phosphatase 258 H 40-136 U/L Total Protein 7.3 6.4-8.2 GM/DL Albumin 4.1 3.2-4.5 GM/DL My Orders Orders - BRANDEE CHAPMAN DO Cbc No Diff (05/08/23 18:18) Cbc With Automated Diff (05/08/23 18:18) Lipase (05/08/23 18:18) Ondansetron Injection (Zofran Injectio (05/08/23 18:30) Ns Iv 1000 Ml (Sodium Chloride 0.9%) (05/08/23 18:20) Comprehensive Metabolic Panel (05/08/23 18:52) Hyoscyamine Sl Tablet (Levsin Sl Tablet) (05/08/23 19:30) Dicyclomine Injection (Bentyl Injection) (05/08/23 19:30) Medications Given in ED Current Medications Medications Dose Ordered Sig/[place] Route Start Time Stop Time Status Last Admin Dose Admin Ondansetron HCl 4 mg ONCE ONCE IVP 05/08/23 18:30 05/08/23 18:31 DC 05/08/23 18:30 4 MG Vital Signs/I&O 05/08/23 18:06 Temp 36.7 Pulse 79 Resp 18 B/P (MAP) 125/83 (97) Pulse Ox 98 O2 Delivery Room Air Blood Pressure Mean: 97 Progress Progress Note : Progress Note Diagnostic studies were ordered and reviewed and interpreted by me. There are no significant acute findings as well as a slightly elevated alk phos. I did review patient's latest inpatient notes including cardiac cath and Dr. Fernández's note. He is scheduled for cholecystectomy on 05/12/2023 for some gallbladder sludge signs of an acute cholecystitis or cholangitis. Patient episodes of vomiting while in the ER. Nonconcerning physical exam to call Dr. Fernández if symptoms continue or worsen. He is stable and discharged home. Departure Impression Primary Impression: Nausea and vomiting Qualified Codes: R11.2 - Nausea with vomiting, unspecified Disposition: HOME, SELF-CARE Condition: Stable Departure-Patient Inst. Referrals: SAMANTA RANDALL APRN (PCP/Family) Primary Care Physician Patient Instructions: Gallbladder Diet, Nausea and Vomiting, Adult Add. Discharge Instructions: Clear liquid diet, advance as tolerated. Please call Dr. Fernández tomorrow if symptoms persist All discharge instructions reviewed with patient and/or family. Voiced understanding. Scripts Ondansetron (Ondansetron Odt) 4 Mg Tab.rapdis 4 MG PO Q6H PRN for NAUSEA/VOMITING, #20 TAB 0 Refills Prov: BRANDEE CHAPMAN DO 05/08/23 Hyoscyamine Sulfate (Levsin-Sl) 0.125 Mg Tab.subl 0.125 MG SL Q4H, #10 TAB 0 Refills Prov: BRANDEE CHAMPAN DO 05/08/23 BRANDEE CHAPMAN DO May 08, 2023 18:31
[2023-05-08 19:06] LABS: ALBUMIN 4.1 GM/DL (3.2-4.5); POTASSIUM 3.9 MMOL/L (3.6-5.0)
[2023-05-08 19:07] LABS: CALCIUM 9.7 MG/DL (8.5-10.1)
[2023-05-08 19:09] LABS: TOTAL PROTEIN 7.3 GM/DL (6.4-8.2)
[2023-05-08 19:11] LABS: BILIRUBIN,TOTAL 1.2 MG/DL (0.1-1.0)
[2023-05-08 19:13] LABS: CREATININE SERUM 0.84 MG/DL (0.60-1.30)
[2023-05-08] MEDS ORDERED: HYOSCYAMINE 0.125 MG (LEVSIN) TAB PO ONE (19:30)
[2023-05-08] MEDS ORDERED: DICYCLOMINE 10 MG/ML 2 ML AMPULE IM ONE (19:30)
[2023-05-08] MEDS ORDERED: ONDA4TAB11 PO (19:45)
[2023-05-08] MEDS ORDERED: HYOS0.1283 SL (19:45)
== END 2023-05-08 20:09 | disposition home or self-care (01) ==
LOC: EDUNIT# 17:40 → ER 17:42
DX: R11.2 Nausea with vomiting, unspecified (principal); I42.9 Cardiomyopathy, unspecified; E66.9 Obesity, unspecified; F17.210 Nicotine dependence, cigarettes, uncomplicated; Z98.61 Coronary angioplasty status; Z68.33 Body mass index [BMI] 33.0-33.9, adult; Z79.899 Other long term (current) drug therapy
CPT/HCPCS: 36415; 80053; 83690; 85025; 85027

== ENCOUNTER 2023-05-09 05:29 | Outpatient (CLI) | payer OTHER ==
[~2023-05-09] VITALS: Ht 180.3 cm; Wt 100.0 kg
[~2023-05-09 05:29] MED LIST changes: +HYOS0.1283 SL; +ONDA4TAB11 PO
== END 2023-05-10 10:39 | disposition home or self-care (01) ==
LOC: PREOP 05:29
PROVIDERS: ATTEND Surgery
DX: Z01.818 Encounter for other preprocedural examination (principal)

== ENCOUNTER 2023-05-12 09:19 | Day surgery (SDC) | payer OTHER ==
[~2023-05-12] VITALS: Ht 180.3 cm; Wt 100.0 kg
[2023-05-12] VITALS (10 sets, daily range): BP systolic 100–129; BP diastolic 66–90
[2023-05-12] MEDS ORDERED: CLINDAMYCIN 600 MG/50 ML IVPB 50 ML IV ONE ×2 (09:49→10:30)
[2023-05-12] MEDS: LACTATED RINGERS 1,000 ML IV PRN ×2 (09:50→11:38)
[2023-05-12 10:09] LABS: AMPHETAMINE SCREEN, URINE NEGATIVE (NEGATIVE); BENZODIAZEPINES SCREEN URINE NEGATIVE (NEGATIVE); COCAINE SCREEN URINE NEGATIVE (NEGATIVE)
[2023-05-12 10:10] LABS: BARBITURATE SCREEN URINE NEGATIVE (NEGATIVE); CANNABINOID SCREEN, URINE NEGATIVE (NEGATIVE); METHADONE STAT NEGATIVE (NEGATIVE); OPIATE SCREEN URINE POSITIVE (NEGATIVE); OXYCODONE STAT NEGATIVE (NEGATIVE); PROPOXYPHENE STAT NEGATIVE (NEGATIVE); TRICYCLIC ANTIDEPRESSANTS SCRE NEGATIVE (NEGATIVE)
[2023-05-12] MEDS ORDERED: LIDOCAINE 1% w/EPI 1:100,000 20 ML VIAL ONE (10:13)
--- NOTE | 2023-05-12 10:19 | Progress Note-Pre Operative ---
Pre-Operative Progress Note Date H&P Reviewed: May 12, 2023 Time H&P Reviewed: 10:15 History & Physical: H&P Reviewed, Patient Examed, No changes noted Pre-Operative Diagnosis: Chronic calculous cholecystitis VLAD VILLAR APRN May 12, 2023 10:19
--- NOTE | 2023-05-12 10:22 | Discharge Inst-Surgical ---
D/C Lap Instructions-KIDO Reconcile Patient Problems Problems Reviewed?: Yes New, Converted, or Re-Newed RX: Other Follow Up Appt in 2 weeks Activity as tolerated No driving for 24 hours No driving while on pain medications Incentive Spirometry use every 2 hours while awake Regular Diet Symptoms to Report: Fever over 101 degree F, Nausea/Vomiting Infection Signs and Symptoms to report: Increased redness, Foul odor of wound, Increased drainage Bathing instructions: May shower Operative Area Clean/Dry; Keep incision clean/dry If any problems/questions: Contact your physician or go to Emergency Room VLAD VILLAR APRN May 12, 2023 10:22
[2023-05-12] MEDS ORDERED: MIDAZOLAM 2 MG/2 ML (VERSED) VIAL ONE (10:28)
[2023-05-12] MEDS ORDERED: fentaNYL INJECTION 100 MCG/2 ML VIAL ONE (10:28)
[2023-05-12] MEDS ORDERED: ROCURONIUM 50 MG/5 ML (ZEMURON) VIAL IV ONE (10:28)
[2023-05-12] MEDS ORDERED: ONDANSETRON 4 MG/2 ML (SDV) Z0FRAN ONE (10:28)
[2023-05-12] MEDS ORDERED: SEVOFLURANE (ULTANE) 15 ML INHAL SOLN ONE ×2 (10:28→12:01)
[2023-05-12] MEDS ORDERED: proPOfol 200 MG/20 ML (DIPRIVAN) VIAL IV ONE (10:28)
[2023-05-12] MEDS ORDERED: LIDOCAINE PF 2% 5 ML VIAL ONE (10:28)
[2023-05-12] MEDS ORDERED: ONDANSETRON 4 MG/2 ML (SDV) Z0FRAN IVP PRN ×2 (10:30→12:15)
[2023-05-12] MEDS ORDERED: oxyCODONE/ACETAMINOPHEN 5/325MG TABLET PO PRN (10:30)
[2023-05-12] MEDS ORDERED: morphine INJ 10 MG/ML 1ML (SYR OR VIAL) IVP PRN (10:30)
[2023-05-12] MEDS ORDERED: ACETAMINOPHEN 325 MG TABLET PO PRN (10:30)
[2023-05-12] MEDS ORDERED: LIDOCAINE 1% w/EPI 1:100,000 20 ML VIAL INJ ONE (11:18)
[2023-05-12] MEDS ORDERED: NEOSTIGMINE (BLOXIVERZ ) 1 MG/1ML 10 ML VIAL ONE (11:46)
[2023-05-12] MEDS ORDERED: GLYCOPYRROLATE INJ 0.2 MG/ML 2 ML VIAL ONE (11:46)
[2023-05-12] MEDS ORDERED: morphine INJ 10 MG/ML 1ML (SYR OR VIAL) ONE (12:10)
--- NOTE | 2023-05-12 12:11 | Anesthesia-General Post-Op ---
General Patient Condition Mental Status/LOC: Same as Preop Cardiovascular: Satisfactory Nausea/Vomiting: Absent Respiratory: Satisfactory Pain: Controlled Complications: Absent Post Op Complications Complications None Follow Up Care/Instructions Patient Instructions None needed. Anesthesia/Patient Condition Patient Condition Patient is doing well, no complaints, stable vital signs, no apparent adverse anesthesia problems. No complications reported per nursing. JOSEFA AREVALO CRNA May 12, 2023 12:11
--- NOTE | 2023-05-12 12:13 | Progress Note-Post Operative ---
Post-Operative Progess Note Surgeon (s)/Supervisor Curing Room (s) Surgeon MARIANN SMITH MD Supervisor Curing Room: none Pre-Operative Diagnosis Chronic calculous cholecystitis Post-Operative Diagnosis same Procedure & Operative Findings Date of Procedure 05/12/23 Procedure Performed/Findings laparoscopic cholecystectomy Anesthesia Type get Estimated Blood Loss Estimated blood loss (mL): minimal Specimens/Packing Specimens Removed gallbladder MARIANN SMITH MD May 12, 2023 12:13
[2023-05-12] MEDS ORDERED: PROMETHAZINE INJ 25 MG/ML (PHENERGAN) AMP IVP ONE (12:15)
[2023-05-12] MEDS ORDERED: HYDROmorphone INJECTION 2 MG/ML VIAL IV ONE (12:15)
[2023-05-12] MEDS ORDERED: MEPERIDINE (DEMEROL) INJ 50 MG/ML IVP ONE (12:15)
[2023-05-12] MEDS ORDERED: morphine INJ 10 MG/ML 1ML (SYR OR VIAL) IVP ONE (12:15)
[2023-05-12] MEDS ORDERED: oxyCODONE/ACETAMINOPHEN 5/325MG TABLET ONE (12:47)
--- NOTE | 2023-05-12 17:31 | OPERATIVE REPORT ---
DATE OF SERVICE: 05/12/2023 ATTENDING MOVE COORDINATOR: Mary Robles APRN PREOPERATIVE DIAGNOSIS: Symptomatic chronic calculous cholecystitis. POSTOPERATIVE DIAGNOSIS: Symptomatic chronic calculous cholecystitis. PROCEDURE: Laparoscopic cholecystectomy. SURGEON: Mariann Smith MD FURNACE COMBUSTION TESTER: Robby Saucedo APRN ANESTHESIA: General endotracheal. ESTIMATED BLOOD LOSS: Minimal. FINDINGS: Early liver cirrhosis. Gallbladder wall thickening with multiple gallstones. DISPOSITION: The patient tolerated the procedure well. INDICATIONS: The patient is a 42-year-old male with extensive past medical history. The patient has a history of alcohol and methamphetamine abuse as well as a longstanding history of cannabinoid and cigarette smoking as well. He did develop a severe cardiomyopathy with initial ejection fraction of approximately 35% and was in the ICU with respiratory as well as a cardiac failure; however, he did improve from that point forward. He states that he has refrained from alcohol and illicit drug use for the past 7 months; however, does continue to use cannabinoid products as well as tobacco smoking. On his last admission, he presented with epigastric pain. A CT scan was performed, which did show the upper portion of the abdomen and did show pneumonia as well as gallbladder wall thickening and this was followed by an ultrasound, which did show stones as well as the wall thickening as well. The patient did undergo cardiac catheterization, which did not show any significant coronary artery stenosis and this was followed by an echocardiogram, which did show improved cardiac function with an ejection fraction estimated of approximately 50%. The patient still did have some pain in the right upper abdominal quadrant after eating meals; however, was able to keep most things down. Due to thepneumonia, we recommended that he proceed with antibiotics at home and then schedule him for an outpatient laparoscopic cholecystectomy. On today's preoperative visit, he appears well and does not report any cough or sputum production as well as no shortness of breath. DESCRIPTION OF PROCEDURE: The patient was brought to the operating room, laid supine on the table. After adequate IV pain and sedative medications and general endotracheal intubation, the abdomen was prepped and draped in standard surgical fashion. A 0.5% Marcaine with epinephrine was then used to anesthetize the overlying skin in the left upper abdominal quadrant and a transverse skin incision made using a #15 blade. An 0 silk suture was applied to the medial aspect of the incision for retraction and a Veress needle inserted with a low opening pressure of 0 mmHg and the abdomen was then insufflated to 15 mmHg pressure. The Veress needle removed and a 5 mm trocar placed followed by a 5 mm 45-degree angle laparoscope visualizing the peritoneal cavity. A 4-quadrant abdominal exploration was performed. The patient did have early changes of liver cirrhosis. There was a contracted gallbladder with gallbladder wall thickening. Under direct visualization, we then proceeded to place a supraumbilical 10 mm port after the skin and peritoneal lining were anesthetized using 0.5% Marcaine with epinephrine and a transverse skin incision made using a #15 blade. In a similar manner, a right upper abdominal quadrant port was placed. The patient was then placed in reverse Trendelenburg position as well as plane right side up, left side down. The fundus of the gallbladder was then retracted anteriorly and superiorly. The hepatoduodenal ligament was then dissected using blunt dissection as well as electrocautery using the hook instrument as well as a [place] dissector. The entire critical view of safety was identified including the triangle of Calot as well as the cystic duct and artery as the only 2 structures going into the gallbladder as well as the cystic plate behind the proximal gallbladder. A timeout was then taken and the cystic duct and artery were then clipped proximally and distally and cut with EndoShears. The gallbladder was then dissected off of the liver bed using cautery on the hook instrument with visualization of good hemostasis as well as no leaking ducts of Luschka. The gallbladder was removed through the 10 mm port site using an EndoCatch bag. The 10 mm port site fascia and peritoneum were then closed under direct visualization using a Timothy-Lore device and an 0 Vicryl suture. The abdomen was desufflated and the remaining ports removed. All skin incisions were closed using 4-0 Monocryl running subcuticular sutures. Wounds were then cleaned and covered with Dermabond. The patient tolerated the procedure well. We will start IV and oral pain medication as well as a clear liquid diet. Once he is tolerating clears with good pain control with oral pain medications, ambulating well, we will discharge him home where he will be instructed to do no heavy lifting or exertion for the next 2 weeks. Job ID: [id number] DocumentID: [id number] Dictated Date: 05/12/2023 12:23:32 Baggage Handler Date: 05/12/2023 17:29:00 Dictated By: MARIANN SMITH MD [facility]
== END 2023-05-12 14:15 | disposition home or self-care (01) ==
LOC: SDC 09:19
PROVIDERS: ATTEND Surgery
DX: K80.10 Calculus of gallbladder with chronic cholecystitis without obstruction (principal); K74.60 Unspecified cirrhosis of liver; K21.9 Gastro-esophageal reflux disease without esophagitis; F17.210 Nicotine dependence, cigarettes, uncomplicated; F12.90 Cannabis use, unspecified, uncomplicated; Z28.310 Unvaccinated for COVID-19; I11.0 Hypertensive heart disease with heart failure; I50.9 Heart failure, unspecified; I25.5 Ischemic cardiomyopathy
CPT/HCPCS: 80306; 87081

== ENCOUNTER 2023-05-16 16:57 | Observation (INO) | payer OTHER ==
[~2023-05-16] VITALS: Ht 180.3 cm; Wt 99.7 kg
[~2023-05-16 16:57] MED LIST changes: +ROPI0.5T37 PO; -ROPI0.5T4 PO
--- NOTE | 2023-05-16 17:29 | ED Abdominal Pain ---
General Chief Complaint: Post OP Complications/Pain Stated Complaint: POST OP RIGHT SIDE ABD PAIN/SWELLING Nursing Triage Note: PT AMB TO [facility] WITH CC OF SWELLING, REDNESS, AND A BURNING AND STINGING SINSATION ON THE RIGHT SIDE OF ABDOMEN THAT TRAILS TO THE GROIN AREA FOLLOWING A CHOLECYSTECTOMY DONE BY DR. FERNÁNDEZ LAST TUESDAY. PT NOTICED SYMPTOMS A COUPLE DAYS AGO. Source of Information: Patient Exam Limitations: No Limitations (AHSAN GARCIA) History of Present Illness Date Seen by Provider: May 16, 2023 Time Seen by Provider: 17:27 Initial Comments Patient is a 43-year-old male with a history of CHF who presents ED with right- sided abdominal pain swelling erythema. Symptoms started 2 days ago. Noted increased dull achy pain with redness and warmth that has developed on the right side of his abdomen. Patient states he had a cholecystectomy performed by Dr. Fernández last . Was doing fine until 2 days ago. Started the Xarelto 2 days ago as well. Patient states he has had some mild vomiting with dry heaving. States he has had 2 bowel movements since his surgery. Currently on hydrocodone. States he has been eating. Reports urination. Reports a mild chills without feeling fevers, chest pain, shortness of breath or cough. Swelling some redness radiates down into his groin. Denies of any current antibiotic use (AHSAN GARCIA) Allergies and Home Medications Allergies Coded Allergies: hydrocodone (Verified Allergy, Severe, ITCHING, 05/12/23) PT HAS TOLERATED MORPHINE AND HYDROMORPHONE IN PAST Penicillins (Verified Allergy, Unknown, ALMOST FROM WHEN YOUNGER, 05/09/23) Patient Home Medication List Home Medication List Reviewed: Yes (AHSAN GARCIA) Amitriptyline HCl (Amitriptyline HCl) 50 Mg Tablet, 50 MG PO HS PRN for SLEEP, (Reported) Entered as Reported by: KLAUDIA OTTO on 05/05/23 1151 Aspirin (Aspirin) 81 Mg Tab.chew, 81 MG PO DAILY Prescribed by: BK COLE on 05/06/23 1147 Empagliflozin (Jardiance) 10 Mg Tablet, 10 MG PO DAILY Prescribed by: BK COLE on 05/06/23 1147 Famotidine (Famotidine) 20 Mg Tablet, 20 MG PO HS Prescribed by: BK COLE on 05/06/231146 Furosemide (Furosemide) 40 Mg Tablet, 80 MG PO BID Prescribed by: BK COLE on 05/06/231146 Hyoscyamine Sulfate (Levsin-Sl) 0.125 Mg Tab.subl, 0.125 MG SL Q4H Prescribed by: BRANDEE CHAPMAN on 05/08/231944 Lisinopril (Lisinopril) 2.5 Mg Tablet, 2.5 MG PO HS Prescribed by: BK COLE on 05/06/23 114 Metoprolol Succinate (Metoprolol Succinate) 25 Mg Tab.er.24h, 25 MG PO HS Prescribed by: BK COLE on 05/06/231146 Ondansetron (Ondansetron Odt) 4 Mg Tab.rapdis, 4 MG PO Q6H PRN for NAUSEA/VOMITING Prescribed by: BRANDEE CHAPMAN on 05/08/231944 Oxycodone Hcl (Oxyir Tablet) 5 Mg Tab, 10 MG PO Q4H PRN for PAIN-SEE DOSE INSTRUCTIONS Prescribed by: BK COLE on 05/06/231147 Pantoprazole Sodium (Pantoprazole Sodium) 40 Mg Tablet.dr, 40 MG PO HS Prescribed by: BK COLE on 05/06/23 114 Rivaroxaban (Xarelto Tablet) 20 Mg Tablet, 20 MG PO HS Prescribed by: BK COLE on 05/06/23 114 Sucralfate (Carafate) 1 Gram Tablet, 1 GM PO ACHS Prescribed by: BK COLE on 05/06/23 114 Review of Systems Review of Systems Constitutional: No chills, No diaphoresis, No malaise, No weakness EENTM: No Double Vision, No Eye Pain Respiratory: Denies Cough, Denies Orthopnea Cardiovascular: Denies Chest Pain Gastrointestinal: Abdominal Pain; Denies Diarrhea; Nausea, Vomiting Genitourinary: Denies Burning, Denies Discharge, Denies Drainage, Denies Frequency Musculoskeletal: No back pain, No joint pain Skin: change in color (AHSAN GARCIA) All Other Systems Reviewed Negative Unless Noted: Yes (AHSAN GARCIA) Past Nvrxhyp-Gsmykt-Luinni Hx Patient Social History Tobacco Use?: Yes Tobacco type used: Cigarettes Substance use?: No Alcohol Use?: No (AHSAN GARCIA) Immunizations Up To Date Tetanus Booster (TDap): Unknown First/Initial COVID19 Vaccinat: N/A Second COVID19 Vaccination [place]: N/A Third COVID19 Vaccination Date: N/A (AHSAN GARCIA) Seasonal Allergies Seasonal Allergies: No (AHSAN GARCIA) Past Medical History Surgery/Hospitalization HX: hernia repair, appendectomy Htn, chf, afib Surgeries: Yes (HERNIA REPAIR; THORACENTESIS 01/18/23;CARDIAC CATH; CARDIOVERSIONS) Abdominal, Appendectomy, Cardiac Respiratory: Yes (PLEURAL EFFUSION/THORACENTESIS) Cardiac: Yes (CHF 30-35% EF AT LOWEST; ATRIAL FIB/FLUTTER; CHF;VARICOSE VEINS;RBBB) Atrial Fibrillation, Cardiomyopathy, Coronary Artery Disease, High Cholesterol, Hypertension Neurological: No Genitourinary: No Gastrointestinal: Yes (HERNIA) Gastroesophageal Reflux Musculoskeletal: Yes Degenerate Disk Disease Endocrine: No (STATES NOT DIABETIC) HEENT: No Cancer: No Psychosocial: Yes Anxiety, PTSD Integumentary: No Blood Disorders: No (AHSAN GARCIA) Family Medical History Heart Disease, Diabetes SOCIAL HISTORY: -ETOH--HEAVY, REGULAR USE -DRUGS--METHAMPHETAMINES--BOTH IV USE AND SMOKES IT -SMOKES 1 PPD PAST SURGICAL HISTORY: -THORACENTESIS 01/2023 -APPENDECTOMY -HERNIA REPAIR -CARDIOVERSIONS ECHOCARDIOGRAM 11/13/20--EF 30-35%, NO REGIONAL WALL MOTION ABNORMALITIES. EXTREME NON-COMPLIANCE IN ALL ASPECTS OF CARE MULTIPLE VISITS HERE SINCE MOVING HERE FROM [facility] 10/2020 (AHSAN GARCIA) Physical Exam Vital Signs Vital Signs - First Documented 05/16/23 17:12 Temp 36.7 Pulse 92 B/P (MAP) 124/98 (107) Pulse Ox 94 O2 Delivery Room Air (SILVIA MACHADO MD) Vital Signs Capillary Refill : (AHSAN GARCIA) Height/Weight/BMI Height: '" Weight: lbs. oz. kg; 30.00 BMI Method: General Appearance: WD/WN, no apparent distress HEENT: PERRL/EOMI, normal ENT inspection, TMs normal, pharynx normal Neck: non-tender, supple, normal inspection Respiratory: chest non-tender, lungs clear, normal breath sounds, no respiratory distress, no accessory muscle use Cardiovascular: regular rate, rhythm, no edema, no gallop, no JVD Gastrointestinal: other (Erythema and swelling noted to the right sided abdomen. Bruising around the port sites of the abdomen. Tenderness to palpate right-sided lower abdomen. Erythema radiating down into the right groin) Extremities: normal range of motion, non-tender, normal inspection, no pedal edema Back: normal inspection, no CVA tenderness Neurologic/Psychiatric: science liaison II-XII nml as tested, no motor/sensory deficits, alert, normal mood/affect, oriented x 3 Skin: other (Erythema warmth right-sided lower abdomen) (AHSAN GARCIA) Focused Exam Lactate Level 05/16/23 17:25: Lactic Acid Level 1.42 (SILVIA MACHADO MD) Lactic Acid Level Laboratory Tests Test 05/16/23 17:25 Lactic Acid Level 1.42 MMOL/L (0.50-2.00) (SILVIA MACHADO MD) Procedures/Interventions Date of ETT Placement: Oct 08, 2022 Time of ETT Placement: 1526 (AHSAN GARCIA) Progress/Results/Core Measures Results/Orders Lab Results Laboratory Tests Test 05/16/23 17:25 05/16/23 17:32 Range/Units White Blood Count 11.2 H 4.3-11.0 10^3/uL Red Blood Count 4.98 4.30-5.52 10^6/uL Hemoglobin 14.1 13.3-17.7 g/dL Hematocrit 45 40-54 % Mean Corpuscular Volume 90 80-99 fL Mean Corpuscular Hemoglobin 28 25-34 pg Mean Corpuscular Hemoglobin Concent 31 L 32-36 g/dL Red Cell Distribution Width 15.9 H 10.0-14.5 % Platelet Count 231 130-400 10^3/uL Mean Platelet Volume 11.8 9.0-12.2 fL Immature Granulocyte % (Auto) 0 % Neutrophils (%) (Auto) 73 42-75 % Lymphocytes (%) (Auto) 9 L 12-44 % Monocytes (%) (Auto) 12 0-12 % Eosinophils (%) (Auto) 5 0-10 % Basophils (%) (Auto) 0 0-10 % Neutrophils # (Auto) 8.2 H 1.8-7.8 10^3/uL Lymphocytes # (Auto) 1.0 1.0-4.0 10^3/uL Monocytes # (Auto) 1.4 H 0.0-1.0 10^3/uL Eosinophils # (Auto) 0.6 H 0.0-0.3 10^3/uL Basophils # (Auto) 0.0 0.0-0.1 10^3/uL Immature Granulocyte # (Auto) 0.0 0.0-0.1 10^3/uL Prothrombin Time 16.3 H 12.2-14.7 SEC INR Comment 1.3 0.8-1.4 Activated Partial Thromboplast Time 39 H 24-35 SEC Sodium Level 139 135-145 MMOL/L Potassium Level 3.8 3.6-5.0 MMOL/L Chloride Level 103 98-107 MMOL/L Carbon Dioxide Level 25 21-32 MMOL/L Anion Gap 11 5-14 MMOL/L Blood Urea Nitrogen 10 7-18 MG/DL Creatinine 0.94 0.60-1.30 MG/DL Estimat Glomerular Filtration Rate 103 BUN/Creatinine Ratio 11 Glucose Level 111 H 70-105 MG/DL Lactic Acid Level 1.42 0.50-2.00 MMOL/L Calcium Level 9.1 8.5-10.1 MG/DL Corrected Calcium 9.2 8.5-10.1 MG/DL Total Bilirubin 2.0 H 0.1-1.0 MG/DL Aspartate Amino Transf (AST/SGOT) 34 5-34 U/L Alanine Aminotransferase (ALT/SGPT) 26 0-55 U/L Alkaline Phosphatase 295 H 40-136 U/L Total Protein 7.4 6.4-8.2 GM/DL Albumin 3.9 3.2-4.5 GM/DL Amylase Level 15 L 25-125 U/L Lipase 9 8-78 U/L Urine Color YELLOW Urine Clarity CLEAR Urine pH 5.5 5-9 Urine Specific [place] 1.015 L 1.016-1.022 Urine Protein NEGATIVE NEGATIVE Urine Glucose (UA) NEGATIVE NEGATIVE Urine Ketones NEGATIVE NEGATIVE Urine Nitrite NEGATIVE NEGATIVE Urine Bilirubin NEGATIVE NEGATIVE Urine Urobilinogen 0.2 < = 1.0 MG/DL Urine Leukocyte Esterase NEGATIVE NEGATIVE Urine RBC (Auto) TRACE H NEGATIVE Urine RBC RARE /HPF Urine WBC NONE /HPF Urine Squamous Epithelial Cells NONE /HPF Urine Crystals NONE /LPF Urine Bacteria NEGATIVE /HPF Urine Casts NONE /LPF Urine Mucus NEGATIVE /LPF Urine Culture Indicated NO (SILVIA MACHADO MD) Medications Given in ED Current Medications Medications Dose Ordered Sig/[place] Route Start Time Stop Time Status Last Admin Dose Admin Ciprofloxacin/ Dextrose 200 ml @ 200 mls/hr ONCE ONCE IV 05/16/23 17:30 05/16/23 18:29 DC 05/16/23 17:49 200 MLS/HR Fentanyl Citrate 50 mcg ONCE ONCE IVP 05/16/23 20:30 05/16/23 20:31 DC 05/16/23 20:25 50 MCG Iohexol 100 ml ONCE ONCE IV 05/16/23 18:00 05/16/23 18:01 DC 05/16/23 18:41 80 ML Metronidazole 100 ml @ 100 mls/hr ONCE ONCE IV 05/16/23 17:30 05/16/23 18:29 DC 05/16/23 19:14 100 MLS/HR Sodium Chloride 100 ml ONCE ONCE IV 05/16/23 18:00 05/16/23 18:01 DC 05/16/23 18:41 80 ML Vancomycin HCl 1000 mg/Sodium Chloride 250 ml @ 250 mls/hr ONCE ONCE IV 05/16/23 19:30 05/16/23 20:29 DC 05/16/23 19:45 250 MLS/HR (SILVIA MACHADO MD) Vital Signs/I&O 05/16/23 17:12 Temp 36.7 Pulse 92 B/P (MAP) 124/98 (107) Pulse Ox 94 O2 Delivery Room Air (SILVIA MACHADO MD) Blood Pressure Mean: 107 Departure Communication (PCP) Reviewed previous ER visits, H&P, lab testing. Differential diagnosis postop intra-abdominal abscess, abdominal wall cellulitis, obstruction. Patient with a history of CHF currently on Xarelto presents ED with right-sided abdominal pain redness warmth. Symptoms started 2 days ago. Patient had a cholecystectomy performed by Dr. Fernández on May 12. Patient states he has been eating and drinking fine but reports some mild dry heaving and episodes of constipation with diarrhea. Patient denies of any fever but reports some mild chills. Normal urination. On exam erythema warmth and swelling noted to right side abdomen. Bruising around the port sites. No purulent drainage. On exam tender to palpate all the way to his right lower abdomen near his penis. Some mild erythema around his genitals. No testicle tenderness on exam. Due to concern for postop complications sepsis work-up was initiated. Initially provided Cipro and Flagyl concern for potential intra-abdominal abscess post surgery. Patient white blood count 11.2. Normal lactic acid. Chemistry grossly unremarkable. Vital signs stable. Received fentanyl for pain. CT abdomen pelvis shows subcutaneous edema along the anterior abdominal soft tissue and anterior pelvic soft tissue. Tiny focus of possible loculated fluid near the umbilicus measuring up to 1.8 cm. Patient denies of any drug use. Patient was discussed with Dr. Fernández. Recommend starting cefepime and vancomycin for abdominal wall infection. Regular diet. Patient will be admitted for observation to Dr. Fernández (AHSAN GARCIA) Impression Primary Impression: Abdominal wall cellulitis Disposition: ADMITTED INPATIENT Condition: Stable Admissions Decision to Admit Reason: Admit from ER (General) Decision to Admit/Date: May 16, 2023 Time/Decision to Admit Time: 19:22 (AHSAN GARCIA) Departure-Patient Inst. Referrals: SAMANTA RANDALL APRN (PCP/Family) Primary Care Physician ATTENDING PHYSICIAN NOTE: I was physically present as attending physician in the emergency department during the care of this patient, but I was not directly involved in the decision making or delivery of care for this patient. (SILVIA MACHADO MD) AHSAN GARCIA May 16, 2023 17:29 SILVIA MACHADO MD May 16, 2023 21:48
[2023-05-16] MEDS ORDERED: ONDANSETRON INJECTION 4 MG/2 ML (SDV) IV PRN ×2 (17:30→21:30)
[2023-05-16] MEDS ORDERED: metroNIDAZOLE 500MG/100ML IVPB 100 ML IV ONE (17:30)
[2023-05-16] MEDS ORDERED: CIPROFLOXACIN IV 400MG/200ML 200 ML IV ONE (17:30)
[2023-05-16 17:38] LABS: BASOPHILS % (AUTO) 0 % (0-10); EOSINOPHILS # (AUTO) 0.6 10^3/uL (0.0-0.3); EOSINOPHILS % (AUTO) 5 % (0-10); HEMATOCRIT 45 % (40-54); HEMOGLOBIN 14.1 g/dL (13.3-17.7); LYMPHOCYTES % (AUTO) 9 % (12-44); MEAN CORPUSCULAR HEMOGLOBIN 28 pg (25-34); MEAN CORPUSCULAR HGB CONC 31 g/dL (32-36); MEAN CORPUSCULAR VOLUME 90 fL (80-99); MEAN PLATELET VOLUME 11.8 fL (9.0-12.2); MONOCYTES # (AUTO) 1.4 10^3/uL (0.0-1.0); MONOCYTES % (AUTO) 12 % (0-12); NEUTROPHILS # (AUTO) 8.2 10^3/uL (1.8-7.8); NEUTROPHILS % (AUTO) 73 % (42-75); PLATELET COUNT 231 10^3/uL (130-400); WHITE BLOOD COUNT 11.2 10^3/uL (4.3-11.0)
[2023-05-16 17:46] LABS: ALBUMIN 3.9 GM/DL (3.2-4.5); POTASSIUM 3.8 MMOL/L (3.6-5.0)
[2023-05-16 17:47] LABS: CALCIUM 9.1 MG/DL (8.5-10.1)
[2023-05-16 17:48] LABS: INR 1.3 (0.8-1.4); PROTHROMBIN TIME PATIENT 16.3 SEC (12.2-14.7)
[2023-05-16 17:49] LABS: TOTAL PROTEIN 7.4 GM/DL (6.4-8.2)
[2023-05-16 17:52] LABS: CREATININE SERUM 0.94 MG/DL (0.60-1.30)
[2023-05-16 17:55] LABS: CLARITY,URINE CLEAR; COLOR,URINE YELLOW; PH,URINE 5.5 (5-9)
[2023-05-16 17:56] LABS: GLUCOSE, URINE (UA) NEGATIVE (NEGATIVE); KETONES,URINE NEGATIVE (NEGATIVE); PROTEIN,URINE NEGATIVE (NEGATIVE)
[2023-05-16 17:57] LABS: BILIRUBIN,URINE NEGATIVE (NEGATIVE); LEUKOCYTE ESTERASE ,URINE NEGATIVE (NEGATIVE); NITRITE,URINE NEGATIVE (NEGATIVE)
[2023-05-16 17:59] LABS: BACTERIA,URINE NEGATIVE /HPF; RBC,URINE RARE /HPF
[2023-05-16] MEDS ORDERED: NS 100 ML (IVPB) BAG IV ONE ×2 (18:00→18:45)
[2023-05-16] MEDS ORDERED: IOHEXOL 350 MG/ML 100 ML (OMNIPAQUE 350) VIAL IV ONE ×2 (18:00→18:45)
[2023-05-16] MEDS ORDERED: HOLD METFORMIN - RECEIVED CONTRAST 20 ML VIAL IV SCH (18:00)
--- NOTE | 2023-05-16 19:11 | Diagnostic Imaging Report ---
EXAMINATION: CT abdomen and pelvis with intravenous contrast. TECHNIQUE: Multiple contiguous axial images were obtained through the abdomen and pelvis after the uneventful administration of intravenous contrast. All CT scans use one or more of the following dose optimizing techniques: automated exposure control, MA and/or KvP adjustment based on patient size and exam type or iterative reconstruction. HISTORY: right sided abd pain COMPARISON: 08/05/2022 FINDINGS: Lung bases: The lung bases are clear. Solid organs: The liver is normal without focal lesion. The gallbladder is surgically absent. There is no biliary ductal dilation. Pancreas is normal. Spleen is normal. Adrenal glands are normal. The kidneys are normal without hydronephrosis. Bowel: The stomach and small bowel are normal without obstruction. The colon is normal. There are no secondary signs of acute appendicitis. Peritoneum: There is a mild amount of free fluid within the gallbladder fossa without evidence of loculation or free air. No suspicious lymphadenopathy. Vasculature: Normal without aneurysm. There are numerous collateral vessels seen along the right inguinal region superficially. Musculoskeletal: Degenerative changes of the spine without suspicious osseous lesion or compression fracture. Mild edema along the anterior abdominal subcutaneous tissues. Small focus of air and trace fluid near the umbilicus measuring up to 1.8 cm. There is prominent edema along the anterior pelvic soft tissues. Pelvis: The prostate gland is normal. The urinary bladder is normal. IMPRESSION: 1. Surgical changes from recent cholecystectomy with mild amount of fluid in the cholecystectomy bed. No loculated fluid collection or free air. 2. No other acute abnormality in the abdomen or pelvis. 3. Subcutaneous edema seen along the anterior abdominal soft tissues and anterior pelvic soft tissues. There is a tiny focus of possible loculated fluid near the umbilicus measuring up to 1.8 cm. 4. Numerous superficial collateral vessels seen within the right inguinal region and upper lower extremity. These were present on 08/05/2022. Dictated by: Dictated on workstation # [id number]
[2023-05-16] MEDS ORDERED: VANCOMYCIN INJECTION 1,000 MG in NS (IVPB) 250 ML 250 ML IV ONE (19:30)
[2023-05-16] MEDS ORDERED: fentaNYL INJECTION 100 MCG/2 ML VIAL IVP ONE (20:30)
[2023-05-16 20:50] VITALS: BP 119/75
[2023-05-16] MEDS ORDERED: CATHETER FLUSH 10 ML SYR IVP PRN (21:15)
[2023-05-16] MEDS ORDERED: VANCOMYCIN 1 GM/NS 250 ML IVPB IV ONE ×2 (21:30)
[2023-05-16] MEDS: LORazepam 0.5 MG TABLET PO PRN (21:44)
[2023-05-16] MEDS: CATHETER FLUSH 10 ML SYR IVP SCH (22:21)
[2023-05-16 23:32] VITALS: BP 102/67
[2023-05-16] MEDS: fentaNYL INJECTION 100 MCG/2 ML VIAL IV PRN (23:35)
[2023-05-17 03:45] VITALS: BP 109/69
[2023-05-17] MEDS: CATHETER FLUSH 10 ML SYR IVP SCH ×3 (05:36→20:43)
[2023-05-17 06:09] LABS: BASOPHILS % (AUTO) 0 % (0-10); EOSINOPHILS # (AUTO) 0.7 10^3/uL (0.0-0.3); EOSINOPHILS % (AUTO) 7 % (0-10); HEMATOCRIT 40 % (40-54); HEMOGLOBIN 12.7 g/dL (13.3-17.7); LYMPHOCYTES # (AUTO) 1.2 10^3/uL (1.0-4.0); LYMPHOCYTES % (AUTO) 11 % (12-44); MEAN CORPUSCULAR HEMOGLOBIN 28 pg (25-34); MEAN CORPUSCULAR HGB CONC 32 g/dL (32-36); MEAN CORPUSCULAR VOLUME 88 fL (80-99); MEAN PLATELET VOLUME 11.7 fL (9.0-12.2); MONOCYTES # (AUTO) 1.4 10^3/uL (0.0-1.0); MONOCYTES % (AUTO) 13 % (0-12); NEUTROPHILS # (AUTO) 6.9 10^3/uL (1.8-7.8); NEUTROPHILS % (AUTO) 68 % (42-75); PLATELET COUNT 208 10^3/uL (130-400); WHITE BLOOD COUNT 10.2 10^3/uL (4.3-11.0)
[2023-05-17 06:19] LABS: POTASSIUM 3.2 MMOL/L (3.6-5.0)
[2023-05-17 06:20] LABS: CALCIUM 8.8 MG/DL (8.5-10.1)
[2023-05-17 06:25] LABS: CREATININE SERUM 0.75 MG/DL (0.60-1.30)
[2023-05-17] MEDS: fentaNYL INJECTION 100 MCG/2 ML VIAL IV PRN ×6 (06:57→23:03)
[2023-05-17 07:56] VITALS: BP 107/70
[2023-05-17] MEDS: VANCOMYCIN 1500MG/300ML PREMIX IV SCH ×2 (08:19→20:36)
[2023-05-17] MEDS ORDERED: CEFEPIME 1,000 MG/NS 50 ML IVPB IV SCH ×2 (09:00)
[2023-05-17 11:47] VITALS: BP 104/60
[2023-05-17] MEDS ORDERED: LIDOCAINE 1% INJ 20 ML VIAL INJ ONE (14:00)
[2023-05-17] MEDS: LORazepam 0.5 MG TABLET PO PRN (14:35)
[2023-05-17] MEDS: CEFEPIME 1,000 MG/NS 50 ML IVPB IV SCH ×4 (14:51→20:03)
[2023-05-17] MEDS ORDERED: EMPA10TA PO (15:41)
[2023-05-17] MEDS ORDERED: OXC5T PO (15:41)
[2023-05-17 16:08] VITALS: BP 164/72
[2023-05-17 20:05] VITALS: BP 105/59
[2023-05-17] MEDS ORDERED: AMITRIPTYLINE 25 MG TABLET PO PRN (22:45)
[2023-05-17] MEDS: DOCUSATE SODIUM 100 MG CAPSULE PO SCH (22:59)
[2023-05-17] MEDS: oxyCODONE IMMEDIATE RELEASE 5 MG TABLET PO PRN (22:59)
[2023-05-17] MEDS ORDERED: RIVAROXABAN 20 MG TABLET PO SCH (23:00)
[2023-05-17] MEDS: SUCRALFATE 1 GM TABLET PO SCH (23:00)
[2023-05-17] MEDS ORDERED: PANTOPRAZOLE 40 MG TABLET PO SCH (23:00)
[2023-05-17] MEDS ORDERED: EMPAGLIFLOZIN 10 MG TABLET PO SCH (23:00)
[2023-05-17] MEDS: FUROSEMIDE 40 MG TABLET PO SCH (23:00)
[2023-05-17] MEDS ORDERED: FAMOTIDINE 20 MG TABLET PO SCH (23:00)
[2023-05-17 23:50] VITALS: BP 126/81
[2023-05-18 03:32] VITALS: BP 105/70
[2023-05-18] MEDS: CEFEPIME 1,000 MG/NS 50 ML IVPB IV SCH ×6 (03:36→14:32)
[2023-05-18] MEDS: fentaNYL INJECTION 100 MCG/2 ML VIAL IV PRN ×4 (04:03→14:32)
[2023-05-18] MEDS: CATHETER FLUSH 10 ML SYR IVP SCH ×2 (06:12→14:32)
[2023-05-18] MEDS: SUCRALFATE 1 GM TABLET PO SCH ×2 (06:13→11:34)
[2023-05-18 07:38] VITALS: BP 109/74
[2023-05-18] MEDS ORDERED: TROUGH ORDER-PHARMACY XX NR (08:00)
[2023-05-18] MEDS: DOCUSATE SODIUM 100 MG CAPSULE PO SCH (08:17)
[2023-05-18] MEDS: oxyCODONE IMMEDIATE RELEASE 5 MG TABLET PO PRN (08:17)
[2023-05-18] MEDS: FUROSEMIDE 40 MG TABLET PO SCH (08:17)
[2023-05-18] MEDS ORDERED: ASPIRIN 81 MG CHEWABLE TABLET PO SCH (09:00)
[2023-05-18] MEDS: VANCOMYCIN 1500MG/300ML PREMIX IV SCH (09:07)
[2023-05-18 11:37] VITALS: BP 105/63
--- NOTE | 2023-05-18 16:04 | HISTORY AND PHYSICAL ---
DATE OF SERVICE: 05/17/2023 HISTORY OF PRESENT ILLNESS: The patient is a 43-year-old male who presented with chest pain as well as nausea and vomiting. 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 He is also currently working. On that admission, he was found to have chronic calculous cholecystitis. After a cardiac workup and antibiotics, we had scheduled him for outpatient cholecystectomy, which was done on 05/12/2023. The patient presented to the Emergency Department with the swelling as well as pain along the right lateral abdomen. A CT scan was performed, which did show some edema within this region. There also appeared to be a fluid collection in the subcutaneous tissue of the supraumbilical port incision site. The patient was admitted and started on IV antibiotics. PAST MEDICAL HISTORY: Ischemic cardiomyopathy, diabetes, atrial fibrillation, congestive heart failure, gastroesophageal reflux disease, hypertension, hypercholesterolemia. PAST SURGICAL HISTORY: Appendectomy, cardiac catheterization and an ablative procedure, abdominal hernia repair, laparoscopic cholecystectomy. ALLERGIES: HYDROCODONE, SPIRONOLACTONE, PENICILLIN. MEDICATIONS: Empagliflozin 10 mg daily, famotidine 10 mg b.i.d., furosemide 80 mg b.i.d., lisinopril 2.5 mg daily, metoprolol 25 mg daily, oxycodone 7.5 mg q.6 hours, Protonix 40 mg daily, rivaroxaban 20 mg daily, trazodone 50 mg daily. SOCIAL HISTORY: Longstanding previous history of methamphetamine as well as alcohol abuse; however, quit these completely approximately 9 months ago. He does continue to smoke THC products as well as a daily cigarette smoking. FAMILY HISTORY: Noncontributory. VITAL SIGNS: Temperature 36.4, blood pressure 107/70, pulse 85, respirations 20, pulse ox 96% on room air. REVIEW OF SYSTEMS: A well-nourished male, currently in no acute distress. He is not experiencing shortness of breath or difficulty breathing. No chest pain, palpitations, diaphoresis. No nausea, vomiting, no diarrhea, constipation with a left lateral abdominal distention, mild edema. No fever, no chills, no recent inadvertent weight loss. All other review of systems negative. PHYSICAL EXAMINATION: CHEST: Few scattered rales and expiratory wheezes bilaterally. HEART: Regular. No murmurs. EXTREMITIES: No lower extremity edema. Negative Homans sign. HEENT: No scleral icterus. No cervical lymphadenopathy. ABDOMEN: Soft, nondistended. There is mild discomfort in the supraumbilical previous port site incision with a small amount of fluctuance. There is a mild amount of edema along the subcutaneous tissue of the right lateral abdomen. No redness or erythema. SKIN: Warm, dry. ASSESSMENT AND PLAN: A 43-year-old male with possible previous bleeding within the suprafascial plane tracking along the lateral abdomen causing edema and pain. There was a fluid collection also identified on CT scan in the supraumbilical incision and we will proceed with incision and drainage of this region and sent for culture and sensitivity. We will empirically also place him on IV antibiotics. Job ID: [id number] DocumentID: [id number] Dictated Date: 05/18/2023 15:23:25 Carbonation Tester Date: 05/18/2023 16:02:00 Dictated By: MARIANN SMITH MD
--- NOTE | 2023-05-18 16:27 | Progress Note ---
Subjective Date Seen by a Provider: May 18, 2023 Time Seen by a Provider: 16:00 Subjective/Events-last exam doing better. tolerating diet. pain/discomfort much better. only hematoma abd wall, no infxn. Focused Exam Lactate Level 05/16/23 17:25: Lactic Acid Level 1.42 Objective Exam Vital Signs Date Time Temp Pulse Resp B/P (MAP) Pulse Ox O2 Delivery O2 Flow Rate FiO2 05/18/23 11:37 36.4 72 18 105/63 (77) 94 Room Air 05/18/23 08:00 Room Air 05/18/23 07:38 36.5 75 18 109/74 (86) 94 Room Air 05/18/23 04:03 36.5 05/18/23 03:32 36.5 83 18 105/70 (82) 98 Room Air 05/17/23 23:50 36.3 83 18 126/81 (96) 97 Room Air 05/17/23 20:05 35.9 81 18 105/59 (74) 97 Room Air 05/17/23 20:00 Room Air I & O 05/18/23 06:59 Intake Total 2040 ml Balance 2040 ml Capillary Refill : General Appearance: No Apparent Distress HEENT: PERRL/EOMI Neck: Full Range of Motion Respiratory: Chest Non Tender, Rhonci, Wheezing Cardiovascular: Regular Rate, Rhythm Gastrointestinal: soft, tenderness, other (open wound intact, no redness/erythema) Extremity: Normal Capillary Refill Neurologic/Psychiatric: Alert, Oriented x3 Skin: Normal Color Lymphatic: No Adenopathy Results Lab Laboratory Tests 05/18/23 08:06: Vancomycin Level Trough 12.2 Microbiology 05/17/23 Gram Stain - Final, Resulted 05/17/23 Wound Culture - Preliminary, Resulted No growth 05/16/23 Blood Culture - Preliminary, Resulted No growth 05/16/23 Urine Culture - Final, Complete NO GROWTH Assessment/Plan Assessment/Plan Assess & Plan/Chief Complaint right abd wall edema/fascial plane hematoma. cont abx PO for 1 week due to high risk of infxn. wet to day wound BID. f/u in office 1 week. MARIANN SMITH MD May 18, 2023 16:27
[2023-05-18] MEDS ORDERED: AMOX1TAB12 PO (16:31)
[2023-05-18] MEDS ORDERED: OXYC1TAB16 PO (16:31)
--- NOTE | 2023-05-18 16:33 | Discharge Inst-Surgical ---
D/C Lap Instructions-KIDO New, Converted, or Re-Newed RX: RX on Chart Follow Up Appt in 1 week Activity as tolerated wet to dry BID. Regular Diet Symptoms to Report: Fever over 101 degree F, Nausea/Vomiting Infection Signs and Symptoms to report: Increased redness, Foul odor of wound, Increased drainage Bathing instructions: May shower Operative Area Clean/Dry; Keep incision clean/dry If any problems/questions: Contact your physician or go to Emergency Room MARIANN SMITH MD May 18, 2023 16:33
--- NOTE | 2023-05-18 21:01 | OPERATIVE REPORT ---
DATE OF SERVICE: 05/17/2023 PREOPERATIVE DIAGNOSIS: Fluid collection in supraumbilical region. POSTOPERATIVE DIAGNOSES: Hematoma, previous supraumbilical port site incision. PROCEDURE: Incision and drainage of hematoma. SURGEON: Mariann Smith MD ANESTHESIA: Local. ESTIMATED BLOOD LOSS: Minimal. FINDINGS: No purulent drainage. Only small hematoma identified. DISPOSITION: The patient tolerated the procedure well. INDICATIONS: The patient is a 43-year-old male who presented with chest pain as well as a right upper abdominal quadrant pain. He has a history of ischemic cardiomyopathy as well as multiple exacerbations of CHF due to chronic methamphetamine as well as alcohol abuse. He has been clean for 9 months and underwent a cardiac workup, which was negative. He was found to have gallstones on that admission. We had started him on antibiotics due to pneumonia and proceeded with schedule him for an outpatient laparoscopic cholecystectomy, which was performed on 05/12/2023. He states that he initially had done well; however, developed swelling along the right lateral abdomen and this also brought discomfort with it. He did not report any fever, no chills. A CT scan was performed, which did show some edema along the right lateral abdomen along the abdominal wall layers, which may have been consistent with subcutaneous edema versus a hematoma tracking along the fascia causing the edema. There was also fluid collection identified in the supraumbilical previous port site incision. DESCRIPTION OF PROCEDURE: The abdomen was prepped and draped in standard surgical fashion. 1% lidocaine was then used to anesthetize the overlying previous incision along the supraumbilical region. The incision was then opened using a #15 blade. A hematoma was identified, which was evacuated. There were no hernias identified as well as no purulence identified as well. Loculations were then broken up bluntly. Wound was then cleaned and packed wet-to-dry with sterile gauze. The patient tolerated the procedure well. We will continue with prophylactic antibiotics due to his extensive past medical history; however, we will just recommend time for the edema to subside and to proceed with wet-to-dry dressings of the open wound and allowed to close by secondary intention. Job ID: [id number] DocumentID: [id number] Dictated Date: 05/18/2023 15:27:41 Wireless Consultant Date: 05/18/2023 20:59:00 Dictated By: MARIANN SMITH MD
== END 2023-05-18 16:48 | disposition home or self-care (01) ==
LOC: EDUNIT# 16:57 → ER 17:00 → UNDOADMOB 20:31 → 4TH 20:31 → UNDODISOB 05-18 16:48
PROVIDERS: ADMIT Surgery; ATTEND Surgery
DX: L76.32 Postprocedural hematoma of skin and subcutaneous tissue following other procedure (principal); F17.210 Nicotine dependence, cigarettes, uncomplicated; Z90.49 Acquired absence of other specified parts of digestive tract; Z28.310 Unvaccinated for COVID-19; Z79.891 Long term (current) use of opiate analgesic
CPT/HCPCS: 36415; 74177; 80048; 80053; 80202; 81000; 82150; 83605; 83690; 85025; 85610; 85730; 87040; 87070; 87088; 87205; 96366; 96374; 96375; 96376; G0378

== ENCOUNTER 2023-06-01 10:57 | Emergency (ER) | payer OTHER ==
[~2023-06-01] VITALS: Ht 180 cm; Wt 99.7 kg
[~2023-06-01 10:57] MED LIST changes: +AMOX1TAB12 PO; -ROPI0.5T37 PO; +ROPI0.5T4 PO
[2023-06-01 11:10] VITALS: BP 125/78
--- NOTE | 2023-06-01 11:32 | ED Abdominal Pain ---
General Chief Complaint: Abdominal/GI Problems Stated Complaint: POST OP 3 WEEKS | ABD PAIN Nursing Triage Note: ARRIVED VIA AMB WITH COMPLAINTS OF ABD PAIN. STATES HE HAD A GALLBLADDER SURGERY DONE BY LUIS 3 WEEKS AGO. TODAY LIFTED AND CAUGHT SOMETHING HEAVY AND FELT IMMEDIATE PAIN. Source of Information: Patient Exam Limitations: No Limitations History of Present Illness Date Seen by Provider: Jun 01, 2023 Time Seen by Provider: 11:28 Initial Comments Patient is a 43-year-old male who presents the ED with abdominal injury. Patient is 3 weeks postop from a cholecystectomy performed by Dr. Fernández. Patient is currently on a 30 pound weight restrictions. Has been working the past 2 day s. Patient states he was moving 100 pound pipe with a coworker when the pipe fell causing him to react and catch the pipe to lower it down. Patient felt a sharp pain in his abdomen. This occurred 2 hours ago at work. Patient states pain is subsiding. Pain is worse with movement described as dull and worse with position changes. Denies any swelling, redness or bruising to the abdomen. He was seen here May 16 admitted for cellulitis of the abdominal wall. Had a hematoma drained by Dr. Fernández. Patient denies any fever, vomiting, diarrhea, abdominal distention, drainage from his port site. Patient denies taking thing for pain. Patient gets relief when he sits and lies down to Allergies and Home Medications Allergies Coded Allergies: hydrocodone (Verified Allergy, Severe, ITCHING, 05/12/23) PT HAS TOLERATED MORPHINE AND HYDROMORPHONE IN PAST Penicillins (Verified Allergy, Unknown, ALMOST FROM WHEN YOUNGER, 05/09/23) Patient Home Medication List Home Medication List Reviewed: Yes Amitriptyline HCl (Amitriptyline HCl) 50 Mg Tablet, 50 MG PO HS PRN for SLEEP, (Reported) Entered as Reported by: KLAUDIA OTTO on 05/05/23 1151 Amoxicillin/Potassium Clav (Amox Tr-K Clv 875-125 mg Tab) 875 Mg-125 Mg Tablet, 1 EACH PO BID Prescribed by: MARIANN FERNÁNDEZ on 05/18/23 1631 Aspirin (Aspirin) 81 Mg Tab.chew, 81 MG PO DAILY Prescribed by: BK COLE on 05/06/23 1147 Empagliflozin (Jardiance) 10 Mg Tablet, 10 MG PO HS, (Reported) Entered as Reported by: KLAUDIA OTTO on 05/17/23 1541 Famotidine (Famotidine) 20 Mg Tablet, 20 MG PO HS Prescribed by: BK COLE on 05/06/23 114 Furosemide (Furosemide) 40 Mg Tablet, 80 MG PO BID Prescribed by: BK COLE on 05/06/23 114 Lisinopril (Lisinopril) 2.5 Mg Tablet, 2.5 MG PO HS Prescribed by: BK COLE on 05/06/23 114 Metoprolol Succinate (Metoprolol Succinate) 25 Mg Tab.er.24h, 25 MG PO HS Prescribed by: BK COLE on 05/06/23 114 Oxycodone HCl/Acetaminophen (Percocet 7.5-325 mg Tablet) 1 Each Tablet, 1 TAB PO Q6H PRN for PAIN-MODERATE Prescribed by: MARIANN FERNÁNDEZ on 05/18/23 1631 Oxycodone Hcl (Oxyir Tablet) 5 Mg Tab, 5 MG PO Q4H PRN for PAIN-SEVERE (8-10), (Reported) Entered as Reported by: KLAUDIA OTTO on 05/17/23 1541 Pantoprazole Sodium (Pantoprazole Sodium) 40 Mg Tablet.dr, 40 MG PO HS Prescribed by: BK COLE on 05/06/23 114 Rivaroxaban (Xarelto Tablet) 20 Mg Tablet, 20 MG PO HS Prescribed by: BK COLE on 05/06/23 114 Sucralfate (Carafate) 1 Gram Tablet, 1 GM PO ACHS Prescribed by: BK COLE on 05/06/23 1147 Review of Systems Review of Systems Constitutional: No chills, No diaphoresis EENTM: No Double Vision, No Eye Pain Respiratory: Denies Cough, Denies Orthopnea Cardiovascular: Denies Chest Pain Gastrointestinal: Abdominal Pain; Denies Diarrhea, Denies Nausea, Denies Vomiting Genitourinary: Denies Burning, Denies Discharge, Denies Drainage Musculoskeletal: No back pain, No joint pain, No joint swelling Skin: No change in color, No change in hair/nails All Other Systems Reviewed Negative Unless Noted: Yes Past Asgxjac-Ufzftw-Zlsmlu Hx Patient Social History Tobacco Use?: Yes Tobacco type used: Cigars Smoking Status: Current Everyday Smoker Substance use?: No Alcohol Use?: No Immunizations Up To Date Tetanus Booster (TDap): Unknown First/Initial COVID19 Vaccinat: N/A Second COVID19 Vaccination Edinson: N/A Third COVID19 Vaccination Date: N/A Seasonal Allergies Seasonal Allergies: No Past Medical History Surgery/Hospitalization HX: hernia repair, appendectomy Htn, chf, afib Surgeries: Yes (HERNIA REPAIR; THORACENTESIS 01/18/23;CARDIAC CATH; CARDIOVERSIONS) Abdominal, Appendectomy, Cardiac Respiratory: Yes (PLEURAL EFFUSION/THORACENTESIS) Cardiac: Yes (CHF 30-35% EF AT LOWEST; ATRIAL FIB/FLUTTER; CHF;VARICOSE VEINS;RBBB) Atrial Fibrillation, Cardiomyopathy, Coronary Artery Disease, High Cholesterol, Hypertension Neurological: No Genitourinary: No Gastrointestinal: Yes (HERNIA) Gastroesophageal Reflux Musculoskeletal: Yes Degenerate Disk Disease Endocrine: No (STATES NOT DIABETIC) HEENT: No Cancer: No Psychosocial: Yes Anxiety, PTSD Integumentary: No Blood Disorders: No Family Medical History Heart Disease, Diabetes SOCIAL HISTORY: -ETOH--HEAVY, REGULAR USE -DRUGS--METHAMPHETAMINES--BOTH IV USE AND SMOKES IT -SMOKES 1 PPD PAST SURGICAL HISTORY: -THORACENTESIS 01/2023 -APPENDECTOMY -HERNIA REPAIR -CARDIOVERSIONS ECHOCARDIOGRAM 11/13/20--EF 30-35%, NO REGIONAL WALL MOTION ABNORMALITIES. EXTREME NON-COMPLIANCE IN ALL ASPECTS OF CARE MULTIPLE VISITS HERE SINCE MOVING HERE FROM [facility] 10/2020 Physical Exam Vital Signs Vital Signs - First Documented 06/01/23 11:10 Temp 36.5 Pulse 92 Resp 16 B/P (MAP) 125/78 (94) Pulse Ox 96 O2 Delivery Room Air Capillary Refill : Less Than 3 Seconds Height/Weight/BMI Height: '" Weight: lbs. oz. kg; 30.00 BMI Method: General Appearance: WD/WN, no apparent distress HEENT: PERRL/EOMI, normal ENT inspection, TMs normal, pharynx normal Neck: non-tender, full range of motion, supple Respiratory: chest non-tender, lungs clear, normal breath sounds, no respiratory distress, no accessory muscle use Cardiovascular: regular rate, rhythm, no edema, no gallop, no JVD Gastrointestinal: normal bowel sounds, soft, no organomegaly, tenderness (Mild tenderness around the umbilicus. Port sites appear to be healing. No erythema, distention, warmth. No guarding or rigidity) Back: normal inspection, no CVA tenderness, no vertebral tenderness Neurologic/Psychiatric: anthropologist II-XII nml as tested, no motor/sensory deficits, alert, normal mood/affect, oriented x 3 Procedures/Interventions Date of ETT Placement: Oct 08, 2022 Time of ETT Placement: 1526 Progress/Results/Core Measures Results/Orders Vital Signs/I&O 06/01/23 11:10 Temp 36.5 Pulse 92 Resp 16 B/P (MAP) 125/78 (94) Pulse Ox 96 O2 Delivery Room Air Blood Pressure Mean: 94 Departure Communication (PCP) Reviewed previous ER visits, surgery H&P, lab testing, imaging presents ED with abdominal wall pain. Differential diagnosis, abdominal wall injury, hernia. This occurred 2 hours ago. Patient Was moving 100 pound pipe with a coworker when the pipe fell causing him to catch the pipe and lowering it to the ground. During this process he felt a pain throughout his abdomen. Pain appears to be positional. Relief when he lies down. Denies of any abdominal bruising, distention. No fever vomiting diarrhea. Patient is currently on a 30 pound weight restrictions. Was seen here May 16 diagnosed with abdominal wall cellulitis had a hematoma drained by Dr. Fernández. On exam surgical port sites appear to be healing. No distention very minimal tenderness around the umbilicus. No palpable mass suggesting hernia. History of inguinal hernia repair repair with mesh. He states it felt more like a tearing sensation with the sharp pain. Patient is currently pain-free while sitting. Does have some mild pain with movement. Discussed with patient that he potentially may have tore some scar tissue versus abdominal muscle tear. Pain appears to be positional. Normal bowel sounds throughout. Does not appear surgical. He does not appear in any acute distress. Port sites appear to be healing. There is no evidence of distention or a palpable mass suggesting hernia. No evidence of abdominal wall cellulitis. Recommend Tylenol at this time. Ice to help with pain and potential swelling. Recommend rest for the next few days. Continue with your weight restrictions. If increasing pain, abdominal distention, vomiting, fever to return back to ED. Impression Primary Impression: Abdominal wall pain Disposition: 01 HOME, SELF-CARE Condition: Stable Departure-Patient Inst. Decision time for Depature: 11:31 Referrals: SAMANTA RANDALL APRN (PCP/Family) Primary Care Physician Patient Instructions: Abdominal pain Add. Discharge Instructions: Recommend rest for the next few days. Ice to help with swelling. Tylenol for pain. If increasing pain, abdominal distention, vomiting to return back to ED. All discharge instructions reviewed with patient and/or family. Voiced understanding. Work/School Note: Work Release Form Date Seen in the Emergency Department: Jun 01, 2023 Return to Work: Jun 03, 2023 AHSAN GARCIA Jun 01, 2023 11:32
== END 2023-06-01 11:35 | disposition home or self-care (01) ==
LOC: EDUNIT# 10:57 → ER 10:59
DX: G89.18 Other acute postprocedural pain (principal); R10.33 Periumbilical pain; F17.210 Nicotine dependence, cigarettes, uncomplicated; Z87.19 Personal history of other diseases of the digestive system; Z90.49 Acquired absence of other specified parts of digestive tract; Z98.890 Other specified postprocedural states; Z28.310 Unvaccinated for COVID-19; X50.0XXA Overexertion from strenuous movement or load, initial encounter; Y92.59 Other trade areas as the place of occurrence of the external cause; Y99.0 Civilian activity done for income or pay
CPT/HCPCS: 99281

== ENCOUNTER 2023-06-23 09:04 | Observation (INO) | payer OTHER ==
[~2023-06-23] VITALS: Ht 180.3 cm; Wt 106.8 kg
[2023-06-23] VITALS (10 sets, daily range): BP systolic 101–136; BP diastolic 61–102
[~2023-06-23 09:04] MED LIST changes: +ROPI0.5T37 PO; -ROPI0.5T4 PO
[2023-06-23] MEDS ORDERED: ASPIRIN 81 MG CHEWABLE TABLET PO ONE (09:40)
[2023-06-23 09:41] LABS: BASOPHILS # (AUTO) 0.1 10^3/uL (0.0-0.1); BASOPHILS % (AUTO) 0 % (0-10); EOSINOPHILS % (AUTO) 9 % (0-10); HEMATOCRIT 49 % (40-54); HEMOGLOBIN 15.3 g/dL (13.3-17.7); LYMPHOCYTES # (AUTO) 1.4 10^3/uL (1.0-4.0); LYMPHOCYTES % (AUTO) 12 % (12-44); MEAN CORPUSCULAR HEMOGLOBIN 28 pg (25-34); MEAN CORPUSCULAR HGB CONC 31 g/dL (32-36); MEAN CORPUSCULAR VOLUME 90 fL (80-99); MEAN PLATELET VOLUME 12.5 fL (9.0-12.2); MONOCYTES % (AUTO) 8 % (0-12); NEUTROPHILS # (AUTO) 8.3 10^3/uL (1.8-7.8); NEUTROPHILS % (AUTO) 70 % (42-75); PLATELET COUNT 216 10^3/uL (130-400); WHITE BLOOD COUNT 11.8 10^3/uL (4.3-11.0)
[2023-06-23] MEDS ORDERED: ASPIRIN 81 MG CHEWABLE TABLET ONE (09:43)
[2023-06-23 09:45] LABS: ALBUMIN 4.1 GM/DL (3.2-4.5); POTASSIUM 3.7 MMOL/L (3.6-5.0)
[2023-06-23 09:46] LABS: CALCIUM 9.7 MG/DL (8.5-10.1); INR 2.2 (0.8-1.4); PROTHROMBIN TIME PATIENT 24.5 SEC (12.2-14.7)
[2023-06-23 09:47] LABS: TOTAL PROTEIN 7.6 GM/DL (6.4-8.2)
[2023-06-23 09:49] LABS: BILIRUBIN,TOTAL 1.4 MG/DL (0.1-1.0)
[2023-06-23 09:51] LABS: CREATININE SERUM 0.85 MG/DL (0.60-1.30)
--- NOTE | 2023-06-23 10:10 | Diagnostic Imaging Report ---
INDICATION: Chest pain. Compared 05/04/2023 FINDINGS: Cardiomegaly mild and unchanged. Old rib deformity on the right chronic. No focal consolidation, failure pattern, effusion or pneumothorax. IMPRESSION: Stable chest Dictated by: Dictated on workstation # [id number]
--- NOTE | 2023-06-23 10:14 | ED Chest Pain ---
General Chief Complaint: Chest Pain Stated Complaint: CHEST PAINS Nursing Triage Note: PT AMB TO RM 5 WITH COMPLAINT OF CP FOR THE LAST WEEK. STATES HAS BEEN ON AND OFF. BETTER WITH REST, WORSE WHEN ACTIVE. History of Present Illness Date Seen by Provider: Jun 23, 2023 Time Seen by Provider: 09:20 Initial Comments 43-year-old male presents emergency department today for chest pain. Is been present for about a week and a half mostly with exertion. It does seem to relieve about 20 minutes after he relaxes. He denies any fevers chills cough abdominal pain changes in bowel or bladder habits. No nausea vomiting or diaphoresis. He does have history of congestive heart failure as well as atrial fibrillation. Heart failure is thought to be secondary to remote history of drug use. His thinks he last had a heart cath about a month ago and he did not receive any stents at that time. He does state he has a significant history of anxiety and is requesting something for this at this time. All other systems reviewed and negative except documented per HPI. Voice recognition software was used to help create this chart Allergies and Home Medications Allergies Coded Allergies: hydrocodone (Verified Allergy, Severe, ITCHING, 06/23/23) PT HAS TOLERATED MORPHINE AND HYDROMORPHONE IN PAST Penicillins (Verified Allergy, Unknown, ALMOST FROM WHEN YOUNGER, 06/23/23) Patient Home Medication List Home Medication List Reviewed: Yes Aspirin (Aspirin) 81 Mg Tab.chew, 81 MG PO DAILY Prescribed by: BK COLE on 05/06/23 1147 Last Action: Reviewed Clonazepam (Clonazepam) 1 Mg Tablet, 1 MG PO BID Prescribed by: MARCY ALVA on 06/24/23 1518 Empagliflozin (Jardiance) 10 Mg Tablet, 10 MG PO HS Prescribed by: JB VALDEZ on 06/24/23 1455 Furosemide (Furosemide) 40 Mg Tablet, 80 MG PO DAILY, (Reported) Entered as Reported by: KLAUDIA OTTO on 06/24/23 1354 Last Action: Reviewed Lisinopril (Lisinopril) 2.5 Mg Tablet, 2.5 MG PO HS Prescribed by: JB VALDEZ on 06/24/23 1455 Metoprolol Succinate (Metoprolol Succinate) 25 Mg Tab.er.24h, 25 MG PO HS Prescribed by: JB VALDEZ on 06/24/23 145 Pantoprazole Sodium (Pantoprazole Sodium) 40 Mg Tablet.dr, 40 MG PO HS Prescribed by: JB VALDEZ on 06/24/23 145 Rivaroxaban (Xarelto Tablet) 20 Mg Tablet, 20 MG PO HS Prescribed by: JB VALDEZ on 06/24/23 145 Rosuvastatin Calcium (Crestor) 20 Mg Tablet, 20 MG PO DAILY Prescribed by: JB VALDEZ on 06/24/23 145 Discontinued Medications Amitriptyline HCl (Amitriptyline HCl) 50 Mg Tablet, 50 MG PO HS PRN for SLEEP, (Reported) Discontinued Reason: No Longer Taking Entered as Reported by: KLAUDIA OTTO on 05/05/23 115 Last Action: Discontinued Amoxicillin/Potassium Clav (Amox Tr-K Clv 875-125 mg Tab) 875 Mg-125 Mg Tablet, 1 EACH PO BID Discontinued Reason: No Longer Taking Prescribed by: MARIANN SMITH on 05/18/23 163 Last Action: Discontinued Empagliflozin (Jardiance) 10 Mg Tablet, 10 MG PO HS, (Reported) Discontinued Reason: No Longer Taking Entered as Reported by: KLAUDIA OTTO on 05/17/23 1541 Last Action: Discontinued Famotidine (Famotidine) 20 Mg Tablet, 20 MG PO HS Discontinued Reason: No Longer Taking Prescribed by: BK COLE on 05/06/23 114 Last Action: Discontinued Furosemide (Furosemide) 40 Mg Tablet, 80 MG PO BID Discontinued Reason: No Longer Taking Prescribed by: BK COLE on 05/06/23 114 Last Action: Discontinued Lisinopril (Lisinopril) 2.5 Mg Tablet, 2.5 MG PO HS Discontinued Reason: No Longer Taking Prescribed by: BK COLE on 05/06/23 114 Last Action: Discontinued Metoprolol Succinate (Metoprolol Succinate) 25 Mg Tab.er.24h, 25 MG PO HS Discontinued Reason: No Longer Taking Prescribed by: BK COLE on 05/06/231146 Last Action: Discontinued Oxycodone HCl/Acetaminophen (Percocet 7.5-325 mg Tablet) 1 Each Tablet, 1 TAB PO Q6H PRN for PAIN-MODERATE Discontinued Reason: No Longer Taking Prescribed by: MARIANN SMITH on 05/18/23 1631 Last Action: Discontinued Oxycodone Hcl (Oxyir Tablet) 5 Mg Tab, 5 MG PO Q4H PRN for PAIN-SEVERE (8-10), (Reported) Discontinued Reason: No Longer Taking Entered as Reported by: KLAUDIA OTTO on 05/17/23 1541 Last Action: Discontinued Pantoprazole Sodium (Pantoprazole Sodium) 40 Mg Tablet.dr, 40 MG PO HS Discontinued Reason: No Longer Taking Prescribed by: BK COLE on 05/06/23 114 Last Action: Discontinued Rivaroxaban (Xarelto Tablet) 20 Mg Tablet, 20 MG PO HS Discontinued Reason: No Longer Taking Prescribed by: BK COLE on 05/06/23 114 Last Action: Discontinued Sucralfate (Carafate) 1 Gram Tablet, 1 GM PO ACHS Discontinued Reason: No Longer Taking Prescribed by: BK COLE on 05/06/231146 Last Action: Discontinued Review of Systems Review of Systems Constitutional: see HPI Past Nxrsoxs-Yibwtr-Fspuds Hx Patient Social History Tobacco Use?: No Use of E-Cig and/or Vaping dev: No Substance use?: No Alcohol Use?: No Pt feels they are or have been: No Immunizations Up To Date Tetanus Booster (TDap): Unknown First/Initial COVID19 Vaccinat: N/A Second COVID19 Vaccination Edinson: N/A Third COVID19 Vaccination Date: N/A Seasonal Allergies Seasonal Allergies: No Past Medical History Surgery/Hospitalization HX: hernia repair, appendectomy Htn, chf, afib Surgeries: Yes (HERNIA REPAIR; THORACENTESIS 01/18/23;CARDIAC CATH; CARDIOVERSIONS) Abdominal, Appendectomy, Cardiac Respiratory: Yes (PLEURAL EFFUSION/THORACENTESIS) Cardiac: Yes (CHF 30-35% EF AT LOWEST; ATRIAL FIB/FLUTTER; CHF;VARICOSE VEINS;RBBB) Atrial Fibrillation, Cardiomyopathy, Coronary Artery Disease, High Cholesterol, Hypertension Neurological: No Genitourinary: No Gastrointestinal: Yes (HERNIA) Gastroesophageal Reflux Musculoskeletal: Yes Degenerate Disk Disease Endocrine: No (STATES NOT DIABETIC) HEENT: No Cancer: No Psychosocial: Yes Anxiety, PTSD Integumentary: No Blood Disorders: No Family Medical History Heart Disease, Diabetes SOCIAL HISTORY: -ETOH--HEAVY, REGULAR USE -DRUGS--METHAMPHETAMINES--BOTH IV USE AND SMOKES IT -SMOKES 1 PPD PAST SURGICAL HISTORY: -THORACENTESIS 01/2023 -APPENDECTOMY -HERNIA REPAIR -CARDIOVERSIONS ECHOCARDIOGRAM 11/13/20--EF 30-35%, NO REGIONAL WALL MOTION ABNORMALITIES. EXTREME NON-COMPLIANCE IN ALL ASPECTS OF CARE MULTIPLE VISITS HERE SINCE MOVING HERE FROM [facility] 10/2020 Physical Exam Vital Signs Vital Signs - First Documented 06/23/23 09:04 Pulse 82 Resp 16 B/P (MAP) 123/82 (96) Pulse Ox 97 O2 Delivery Room Air Capillary Refill : Less Than 3 Seconds Height, Weight, BMI Height: '" Weight: lbs. oz. kg; 30.00 BMI Method: General Appearance: No Apparent Distress, WD/WN, Anxious HEENT: Normal ENT Inspection, Pharynx Normal Neck: Full Range of Motion, Normal Inspection, Non Tender, Supple Respiratory: Chest Non Tender, Lungs Clear, Normal Breath Sounds, No Accessory Muscle Use Cardiovascular: No Murmur, Normal Peripheral Pulses, Irregularly Irregular Gastrointestinal: Non Tender, Soft Extremity: Normal Capillary Refill, Normal Inspection, Non Tender, No Pedal Edema Neurologic/Psychiatric: Alert, Oriented x3, No Motor/Sensory Deficits Skin: Normal Color, Warm/Dry Procedures/Interventions Date of ETT Placement: Oct 08, 2022 Time of ETT Placement: 1526 Progress/Results/Core Measures Results/Orders Lab Results Laboratory Tests Test 06/23/23 08:08 06/23/23 11:46 Range/Units White Blood Count 11.8 H 4.3-11.0 10^3/uL Red Blood Count 5.42 4.30-5.52 10^6/uL Hemoglobin 15.3 13.3-17.7 g/dL Hematocrit 49 40-54 % Mean Corpuscular Volume 90 80-99 fL Mean Corpuscular Hemoglobin 28 25-34 pg Mean Corpuscular Hemoglobin Concent 31 L 32-36 g/dL Red Cell Distribution Width 15.7 H 10.0-14.5 % Platelet Count 216 130-400 10^3/uL Mean Platelet Volume 12.5 H 9.0-12.2 fL Immature Granulocyte % (Auto) 0 % Neutrophils (%) (Auto) 70 42-75 % Lymphocytes (%) (Auto) 12 12-44 % Monocytes (%) (Auto) 8 0-12 % Eosinophils (%) (Auto) 9 0-10 % Basophils (%) (Auto) 0 0-10 % Neutrophils # (Auto) 8.3 H 1.8-7.8 10^3/uL Lymphocytes # (Auto) 1.4 1.0-4.0 10^3/uL Monocytes # (Auto) 1.0 0.0-1.0 10^3/uL Eosinophils # (Auto) 1.0 H 0.0-0.3 10^3/uL Basophils # (Auto) 0.1 0.0-0.1 10^3/uL Immature Granulocyte # (Auto) 0.0 0.0-0.1 10^3/uL Prothrombin Time 24.5 H 12.2-14.7 SEC INR Comment 2.2 H 0.8-1.4 Sodium Level 137 135-145 MMOL/L Potassium Level 3.7 3.6-5.0 MMOL/L Chloride Level 104 98-107 MMOL/L Carbon Dioxide Level 21 21-32 MMOL/L Anion Gap 12 5-14 MMOL/L Blood Urea Nitrogen 18 7-18 MG/DL Creatinine 0.85 0.60-1.30 MG/DL Estimat Glomerular Filtration Rate 110 BUN/Creatinine Ratio 21 Glucose Level 108 H 70-105 MG/DL Calcium Level 9.7 8.5-10.1 MG/DL Corrected Calcium 9.6 8.5-10.1 MG/DL Total Bilirubin 1.4 H 0.1-1.0 MG/DL Aspartate Amino Transf (AST/SGOT) 39 H 5-34 U/L Alanine Aminotransferase (ALT/SGPT) 29 0-55 U/L Alkaline Phosphatase 242 H 40-136 U/L Troponin I 0.038 H 0.047 H <0.028 NG/ML Total Protein 7.6 6.4-8.2 GM/DL Albumin 4.1 3.2-4.5 GM/DL My Orders Orders - SALBADOR GIRARD DO Cbc With Automated Diff (06/23/23 08:08) Comprehensive Metabolic Panel (06/23/23 08:08) Troponin I [place] (06/23/23 08:08) Protime With Inr (06/23/23 08:08) Aspirin Chewable Tablet (Aspirin Chewabl (06/23/23 09:43) Lorazepam Injection (Lorazepam Injection (06/23/23 09:43) Chest 1 View, Ap/Pa Only (06/23/23 ) Ekg Tracing (06/23/23 10:01) Lorazepam Injection (Lorazepam Injection (06/23/23 09:40) Aspirin Chewable Tablet (Aspirin Chewabl (06/23/23 09:40) Troponin I [place] (06/23/23 11:18) Medications Given in ED Current Medications Medications Dose Ordered Sig/[place] Route Start Time Stop Time Status Last Admin Dose Admin Aspirin 324 mg ONCE ONCE PO 06/23/23 09:40 06/23/23 11:09 DC 06/23/23 09:44 324 MG Lorazepam 1 mg ONCE ONCE IVP 06/23/23 09:40 06/23/23 11:09 DC 06/23/23 09:44 1 MG Vital Signs/I&O 06/23/23 09:04 Pulse 82 Resp 16 B/P (MAP) 123/82 (96) Pulse Ox 97 O2 Delivery Room Air Blood Pressure Mean: 96 Comment Atrial fibrillation with a rate of 70 beats minute. Normal intervals outside of SD interval. Normal axis. Significant ST depression with T wave version to 3 and aVF V3 through V6. This is similar in comparison to April EKG. Departure Communication (Admissions) Patient is hemodynamically stable. He continues to have some mild chest pain initially upon arrival however this does subside during his emergency department stay. His troponin comes back slightly elevated. I looked at the record review and this was similar to his previous presentation. Plan was to do a second troponin to ensure it was not rising especially given that he had a heart cath just 1 to 2 months prior that was without obstructive disease. His second troponin came back higher than his initial troponin so he will be admitted for observation to trend his troponins. He is currently chest pain-free. His EKG shows ST depressions with T wave inversions in 2 3 and aVF, V3 through V6 which is similar to previous comparison EKGs. He has no evidence for acute heart fail ure on presentation today. His labs are otherwise relatively unremarkable with otherwise normal chemistry and CBC. Independently reviewed his chest x-ray and EKG. I also have independently reviewed all lab findings. Impression Primary Impression: Chest pain Qualified Codes: R07.9 - Chest pain, unspecified Disposition: ADMITTED INPATIENT Condition: Stable Admissions Decision to Admit Reason: Admit from ER (General) Departure-Patient Inst. Referrals: SAMANTA RANDALL APRN (PCP/Family) Primary Care Physician Scripts Clonazepam (Clonazepam) 1 Mg Tablet 1 MG PO BID for 7 Days, #14 TAB 0 Refills Prov: ISAURO BROWN MD 06/24/23 Rosuvastatin Calcium (Crestor) 20 Mg Tablet 20 MG PO DAILY, #30 TAB 0 Refills Prov: JB VALDEZ MD 06/24/23 Empagliflozin (Jardiance) 10 Mg Tablet 10 MG PO HS, #30 TAB 0 Refills LAST FILLED 05-06-2023 #30/30 DAY SUPPLY Prov: JB VALDEZ MD 06/24/23 Rivaroxaban (XARELTO TABLET) 20 Mg Tablet 20 MG PO HS, #30 TAB 0 Refills LAST FILLED 05-06-2023 #30/30 DAY SUPPLY Prov: JB VALDEZ MD 06/24/23 Metoprolol Succinate (Metoprolol Succinate) 25 Mg Tab.er.24h 25 MG PO HS for 30 Days, #30 TAB 0 Refills LAST FILLED 05-06-2023 #30/30 DAY SUPPLY Prov: JB VALDEZ MD 06/24/23 Pantoprazole Sodium (Pantoprazole Sodium) 40 Mg Tablet.dr 40 MG PO HS, #30 TAB 0 Refills LAST FILLED 05-06-2023 #30/30 DAY SUPPLY Prov: JB VALDEZ MD 06/24/23 Lisinopril (Lisinopril) 2.5 Mg Tablet 2.5 MG PO HS, #30 TAB 0 Refills LAST FILLED 05-06-2023 #30/30 DAY SUPPLY Prov: JB VALDEZ MD 06/24/23 SALBADOR GIRARD DO Jun 23, 2023 10:14
[2023-06-23] MEDS ORDERED: KETOROLAC INJ 15 MG/ML VIAL IVP ONE (13:15)
[2023-06-23] MEDS ORDERED: PATIENT MAY USE OWN MEDS, ALL PO SCH (14:15)
[2023-06-23] MEDS ORDERED: ONDANSETRON INJECTION 4 MG/2 ML (SDV) IVP PRN (14:15)
[2023-06-23] MEDS ORDERED: NITROGLYCERIN 0.4 MG SL TABLETS BTL 25'S SL PRN (14:15)
[2023-06-23] MEDS: morphine INJ 4 MG/ML 1 ML (VIAL/SYRINGE) IV PRN ×3 (14:39→20:34)
[2023-06-23] MEDS ORDERED: LORazepam 1 MG TABLET ONE (16:42)
[2023-06-23] MEDS ORDERED: LORazepam 1 MG TABLET PO ONE (16:45)
--- NOTE | 2023-06-23 17:00 | Consultation-Cardiology ---
HPI-Cardiology Cardiology Consultation Date of Consultation 06/23/23 Date of Admission Time Seen by Provider: 16:00 HPI Patient is a 43-year-old male with a history of methamphetamine use, last urine tox positive in September 2022, atrial fibrillation on Xarelto and metoprolol, status post failed ablation in [place] 2020, COPD, persistently elevated white blood cell count, heart failure with reduced EF last EF 40 to 45% but has been as low as 30 to 35% in recent years, hyperlipidemia, tobacco abuse, history of med noncompliance, elevated BNP with a baseline of approximate 1000 and chronically elevated troponins of 0.04 who presents for evaluation of chest discomfort. Approximately 6 weeks ago, the patient presented for chest pain. He was taken to the cardiac [facility]. He was found to have a 50% mid LAD lesion. He was treated medically. Patient states that the pain subsided and recurred approximately 7 to 10 days ago. He notes that he is quite anxious at this point time. He has a lot going on at work. Several projects which is requiring him to produce and he is concerned that he may end up losing his job since he is hospitalized quite regularly. Since his hospitalization here in April for chest pain, he has been admitted 2-3 times for cholecystitis and subsequently underwent cholecystectomy. Upon arrival to the emergency room, his EKG demonstrates diffuse ST depressions which is unchanged from prior. His troponin comes back elevated at 0.038 and again at 0.048 on recheck. He states that he is not interested in taking nitroglycerin as it does not help his chest discomfort and gives him a headache. He is requesting morphine or some alternative. Home Medications & Allergies Allergies: Coded Allergies: hydrocodone (Verified Allergy, Severe, ITCHING, 06/23/23) PT HAS TOLERATED MORPHINE AND HYDROMORPHONE IN PAST Penicillins (Verified Allergy, Unknown, ALMOST FROM WHEN YOUNGER, 06/23/23) Home Medication List Reviewed: Yes [id number] Hx Patient Social History Drug of Choice: METHAMPHETAMINE, MARIJUANA HX Smoking Status: Current Everyday Smoker Type Used: Cigarettes 2nd Hand Smoke Exposure: Yes Recent Hopitalizations: Yes (1wk hospital stay for chest pain, chf, afib, hx meth use) Alcohol Use?: No Immunizations Up To Date Tetanus Booster (TDap): Unknown Date of Influenza Vaccine: Aug 09, 2020 Family Medical History Significant Family History: Heart Disease, Diabetes Review of Systems-General Review of Systems Constitutional: see HPI All Other Systems Reviewed Negative Unless Noted: Yes (All systems were reviewed and are negative except what is been described in) Physical Exam Physical Exam Vital Signs Vital Signs - First Documented 06/23/23 09:04 Pulse 82 Resp 16 B/P (MAP) 123/82 (96) Pulse Ox 97 O2 Delivery Room Air Capillary Refill : Less Than 3 Seconds Height, Weight, BMI Height: '" Weight: lbs. oz. kg; 30.91 BMI Method: General Appearance: No Apparent Distress, WD/WN, Anxious HEENT: Normal ENT Inspection, Pharynx Normal Neck: Full Range of Motion, Normal Inspection, Non Tender, Supple Respiratory: Chest Non Tender, Lungs Clear, Normal Breath Sounds, No Accessory Muscle Use Cardiovascular: No Murmur, Normal Peripheral Pulses, Irregularly Irregular Gastrointestinal: Non Tender, Soft Extremity: Normal Capillary Refill, Normal Inspection, Non Tender, No Pedal Edema Neurologic/Psychiatric: Alert, Oriented x3, No Motor/Sensory Deficits Skin: Normal Color, Warm/Dry Comments Gen: NAD, quite akathitic. Incessant leg movement. Talking comfortably Neck: No bruits, no JVD Lungs: CTA B; no w-r-r CV: nl s1/s2; no murmurs gallops or rubs, regular rate and rhythm Abd: + BS, soft NT,ND, no hepatosplenomegaly Ext: 2+ radial and DP pulses; no c-c-e, wwp A/P-Cardiology Assessment/Plan 43-year-old male with a history of methamphetamine use, last urine tox positive in September 2022, atrial fibrillation on Xarelto and metoprolol, status post failed ablation in [place] 2020, COPD, persistently elevated white blood cell count, heart failure with reduced EF last EF 40 to 45% but has been as low as 30 to 35% in recent years, hyperlipidemia, tobacco abuse, history of med noncompliance, elevated BNP with a baseline of approximate 1000 and chronically elevated troponins of 0.04 who presents for evaluation of chest discomfort. ##Chest pain: Review of his prior labs reveals frequently + Tn ranging from 0.03 to 0.08. Today 0.03-0.04. EKG unchanged from prior and demonstrates AF with controlled ventricular response and diffuse ST depressions and minimal ST elevation in lateral leads. - obtain TTE to assess for any new RWMA- last EF with global HK and EF 45-50% - restart cardiotonic regimen - check BNP - f/u Tn in AM - start Imdur 15 QAM - Ativan iv - pt appears quite akathitic- wonder if there is an associated between anxiety and current presentation ## Atrial fib - currently in NSR; continue metop - hold Xarelto for now, last dose PM of 06/23. - start lovenox 1mg/kg bid until decision made regarding whether to proceed with repeat cardiac cath ## Hx of polysubstance abuse and med non compliance - urine drug screen ISAURO BROWN MD Jun 23, 2023 17:00
[2023-06-23] MEDS: ISOSORBIDE MONONITRATE 30 MG TABLET PO SCH (17:34)
[2023-06-23] MEDS: FUROSEMIDE 40 MG TABLET PO SCH (17:35)
[2023-06-23] MEDS ORDERED: ENOXAPARIN 100 MG/1 ML SYRINGE SC NR (18:00)
[2023-06-23] MEDS: LORazepam 0.5 MG TABLET PO PRN (20:34)
[2023-06-23 21:43] LABS: AMPHETAMINE SCREEN, URINE NEGATIVE (NEGATIVE); BARBITURATE SCREEN URINE NEGATIVE (NEGATIVE); BENZODIAZEPINES SCREEN URINE POSITIVE (NEGATIVE); CANNABINOID SCREEN, URINE NEGATIVE (NEGATIVE); COCAINE SCREEN URINE NEGATIVE (NEGATIVE); METHADONE STAT NEGATIVE (NEGATIVE); OPIATE SCREEN URINE POSITIVE (NEGATIVE); OXYCODONE STAT NEGATIVE (NEGATIVE); PROPOXYPHENE STAT NEGATIVE (NEGATIVE); TRICYCLIC ANTIDEPRESSANTS SCRE NEGATIVE (NEGATIVE)
[2023-06-24] MEDS: morphine INJ 4 MG/ML 1 ML (VIAL/SYRINGE) IV PRN ×4 (00:35→14:41)
[2023-06-24 03:44] VITALS: BP 102/71
[2023-06-24] MEDS: LORazepam 0.5 MG TABLET PO PRN ×2 (04:23→14:37)
[2023-06-24 05:27] LABS: HEMATOCRIT 44 % (40-54); HEMOGLOBIN 13.9 g/dL (13.3-17.7); MEAN CORPUSCULAR HEMOGLOBIN 28 pg (25-34); MEAN CORPUSCULAR HGB CONC 31 g/dL (32-36); MEAN CORPUSCULAR VOLUME 88 fL (80-99); MEAN PLATELET VOLUME 12.2 fL (9.0-12.2); PLATELET COUNT 207 10^3/uL (130-400); WHITE BLOOD COUNT 9.2 10^3/uL (4.3-11.0)
[2023-06-24 05:57] LABS: ALANINE AMINOTRANSFERASE 28 U/L (0-55); ALBUMIN 3.8 GM/DL (3.2-4.5); ALKALINE PHOSPHATASE 211 U/L (40-136); BILIRUBIN,TOTAL 1.3 MG/DL (0.1-1.0); BUN/CREATININE RATIO 15; CALCIUM 8.9 MG/DL (8.5-10.1); CARBON DIOXIDE 26 MMOL/L (21-32); CHLORIDE 105 MMOL/L (98-107); CHOLESTEROL 176 MG/DL (< 200); CREATININE SERUM 0.96 MG/DL (0.60-1.30); GFR ESTIMATED 100; GLUCOSE 111 MG/DL (70-105); HDL CHOLESTEROL 36 MG/DL (40-60); POTASSIUM 4.6 MMOL/L (3.6-5.0); SODIUM 140 MMOL/L (135-145); TOTAL PROTEIN 6.8 GM/DL (6.4-8.2); TRIGLYCERIDES 76 MG/DL (<150); VLDL CHOLESTEROL 15 MG/DL (5-40)
[2023-06-24] MEDS: FUROSEMIDE 40 MG TABLET PO SCH (06:25)
[2023-06-24 07:56] VITALS: BP 108/73
[2023-06-24] MEDS ORDERED: ASPIRIN 325 MG TABLET PO SCH (09:00)
[2023-06-24] MEDS ORDERED: ASPIRIN 81 MG CHEWABLE TABLET PO SCH (09:00)
[2023-06-24] MEDS ORDERED: EMPAGLIFLOZIN 10 MG TABLET PO SCH (09:00)
[2023-06-24] MEDS: ISOSORBIDE MONONITRATE 30 MG TABLET PO SCH (09:05)
[2023-06-24 11:48] VITALS: BP 109/66
[2023-06-24] MEDS ORDERED: PANT40TA52 PO ×2 (13:54→14:55)
[2023-06-24] MEDS ORDERED: EMPA10TA PO ×2 (13:54→14:55)
[2023-06-24] MEDS ORDERED: MTP25TSR PO ×2 (13:54→14:55)
[2023-06-24] MEDS ORDERED: FURO40TA4 PO (13:54)
[2023-06-24] MEDS ORDERED: RIVA20TA2 PO ×2 (13:54→14:55)
[2023-06-24] MEDS ORDERED: LISI2.5T13 PO ×2 (13:54→14:55)
--- NOTE | 2023-06-24 14:51 | Short Stay Summary ---
History of Present Illness History of Present Illness Reason for visit/HPI 43 yo male with extensive cardiac history presented to ER due to chest pain. States he was having on and off last week or more, but worse yesterday. Pain in left chest with radiation to arm and jaw and he also endorses nausea, dizziness and sweatiness. He does think anxiety contributes and would like to continue taking at home what he is getting here. He says he has tried different medicati ons outpatient and sees a therapist but these don't help. Date of Admission Jun 23, 2023 at 14:06 Date of Discharge Jun 24, 2023 Time Seen by Provider: 09:30 Attending Physician Mary Robles Aprn Admitting Physician Admitting Physician: Jb Valdez MD Attending Physician: Jb Valdez MD Consult Allergies and Home Medications Allergies Coded Allergies: hydrocodone (Verified Allergy, Severe, ITCHING, 06/23/23) PT HAS TOLERATED MORPHINE AND HYDROMORPHONE IN PAST Penicillins (Verified Allergy, Unknown, ALMOST FROM WHEN YOUNGER, 06/23/23) Patient Home Medication List Home Medication List Reviewed: Yes Aspirin (Aspirin) 81 Mg Tab.chew, 81 MG PO DAILY Prescribed by: BK COLE on 05/06/23 1147 Last Action: Reviewed Clonazepam (Clonazepam) 1 Mg Tablet, 1 MG PO BID Prescribed by: MARCY ALVA on 06/24/23 1518 Empagliflozin (Jardiance) 10 Mg Tablet, 10 MG PO HS Prescribed by: JB VALDEZ on 06/24/23 145 Furosemide (Furosemide) 40 Mg Tablet, 80 MG PO DAILY, (Reported) Entered as Reported by: KLAUDIA OTTO on 06/24/23 1354 Last Action: Reviewed Lisinopril (Lisinopril) 2.5 Mg Tablet, 2.5 MG PO HS Prescribed by: JB VALDEZ on 06/24/23 1455 Metoprolol Succinate (Metoprolol Succinate) 25 Mg Tab.er.24h, 25 MG PO HS Prescribed by: JB VALDEZ on 06/24/23 1455 Pantoprazole Sodium (Pantoprazole Sodium) 40 Mg Tablet.dr, 40 MG PO HS Prescribed by: JB VALDEZ on 06/24/23 1455 Rivaroxaban (Xarelto Tablet) 20 Mg Tablet, 20 MG PO HS Prescribed by: JB VALDEZ on 06/24/23 1455 Rosuvastatin Calcium (Crestor) 20 Mg Tablet, 20 MG PO DAILY Prescribed by: JB VALDEZ on 06/24/23 1455 Discontinued Medications Amitriptyline HCl (Amitriptyline HCl) 50 Mg Tablet, 50 MG PO HS PRN for SLEEP, (Reported) Discontinued Reason: No Longer Taking Entered as Reported by: KLAUDIA OTTO on 05/05/23 115 Last Action: Discontinued Amoxicillin/Potassium Clav (Amox Tr-K Clv 875-125 mg Tab) 875 Mg-125 Mg Tablet, 1 EACH PO BID Discontinued Reason: No Longer Taking Prescribed by: MARIANN SMITH on 05/18/23 163 Last Action: Discontinued Empagliflozin (Jardiance) 10 Mg Tablet, 10 MG PO HS, (Reported) Discontinued Reason: No Longer Taking Entered as Reported by: KLAUDIA OTTO on 05/17/23 1541 Last Action: Discontinued Famotidine (Famotidine) 20 Mg Tablet, 20 MG PO HS Discontinued Reason: No Longer Taking Prescribed by: BK COLE on 05/06/23 114 Last Action: Discontinued Furosemide (Furosemide) 40 Mg Tablet, 80 MG PO BID Discontinued Reason: No Longer Taking Prescribed by: BK COLE on 05/06/23 114 Last Action: Discontinued Lisinopril (Lisinopril) 2.5 Mg Tablet, 2.5 MG PO HS Discontinued Reason: No Longer Taking Prescribed by: BK COLE on 05/06/23 114 Last Action: Discontinued Metoprolol Succinate (Metoprolol Succinate) 25 Mg Tab.er.24h, 25 MG PO HS Discontinued Reason: No Longer Taking Prescribed by: BK COLE on 05/06/23 114 Last Action: Discontinued Oxycodone HCl/Acetaminophen (Percocet 7.5-325 mg Tablet) 1 Each Tablet, 1 TAB PO Q6H PRN for PAIN-MODERATE Discontinued Reason: No Longer Taking Prescribed by: MARIANN SMITH on 05/18/23 163 Last Action: Discontinued Oxycodone Hcl (Oxyir Tablet) 5 Mg Tab, 5 MG PO Q4H PRN for PAIN-SEVERE (8-10), (Reported) Discontinued Reason: No Longer Taking Entered as Reported by: KLAUDIA OTTO on 05/17/23 1541 Last Action: Discontinued Pantoprazole Sodium (Pantoprazole Sodium) 40 Mg Tablet.dr, 40 MG PO HS Discontinued Reason: No Longer Taking Prescribed by: BK COLE on 05/06/23 114 Last Action: Discontinued Rivaroxaban (Xarelto Tablet) 20 Mg Tablet, 20 MG PO HS Discontinued Reason: No Longer Taking Prescribed by: BK COLE on 05/06/231146 Last Action: Discontinued Sucralfate (Carafate) 1 Gram Tablet, 1 GM PO ACHS Discontinued Reason: No Longer Taking Prescribed by: BK COLE on 05/06/231146 Last Action: Discontinued Past [id number]-[id number] Hx Patient Social History Alcohol Beverage of Choice: Other (History of alcohol use, reports last drink a year ago (as of 06/24/23)) Drug of Choice: METHAMPHETAMINE, MARIJUANA history, reports last use a year ago as of 06/24/ Smoking Status: Current Everyday Smoker 2nd Hand Smoke Exposure: Yes Alcohol Use?: No Pt feels they are or have been: No Tobacco type used: Cigarettes Immunizations Up To Date Tetanus Booster (TDap): Unknown Date of Influenza Vaccine: Aug 09, 2020 Seasonal Allergies Seasonal Allergies: No Surgeries Yes (HERNIA REPAIR; THORACENTESIS 01/18/23;CARDIAC CATH; CARDIOVERSIONS) Abdominal, Appendectomy, Cardiac Respiratory Yes (PLEURAL EFFUSION/THORACENTESIS) Cardiovascular Yes ( ATRIAL FIB/FLUTTER; CHF;VARICOSE VEINS;RBBB) Atrial Fibrillation, Cardiomyopathy, Coronary Artery Disease, High Cholesterol, Hypertension Neurological No Genitourinary No Gastrointestinal Yes (HERNIA) Gastroesophageal Reflux Musculoskeletal Yes Degenerate Disk Disease Endocrine History of Endocrine Disorders: No HEENT History of HEENT Disorders: No Cancer No Psychosocial History of Psychiatric Problem: Yes Behavioral Health Disorders: Anxiety, PTSD Integumentary History of Skin or Integumenta: No Blood Transfusions History of Blood Disorders: No Family Medical History Significant Family History: Heart Disease, Diabetes Review of Systems Constitutional: No fever Respiratory: cough (reports productive of phlegm, treated for pneumonia about 6 weeks ago, got better for a while, started again about 3 weeks ago) Cardiovascular: chest pain Gastrointestinal: No abdominal pain Psychiatric/Neurological: Anxiety Physical Exam Vital Signs Vital Signs - First Documented 06/23/23 06/23/23 09:04 20:39 Temp 36.1 Pulse 82 Resp 16 B/P (MAP) 123/82 (96) Pulse Ox 97 O2 Delivery Room Air Capillary Refill : Less Than 3 Seconds Height, Weight, BMI Height: '" Weight: lbs. oz. kg; 32.85 BMI Method: General Appearance: No Apparent Distress, WD/WN Respiratory: Lungs Clear, Normal Breath Sounds Cardiovascular: Regular Rate, Rhythm, No Murmur Gastrointestinal: Normal Bowel Sounds, Non Tender, Soft Extremity: Normal Inspection Neurologic/Psychiatric: Alert, Normal Mood/Affect Skin: Normal Color, Warm/Dry Short Stay Diagnosis Discharge Diagnosis-Short Stay Admission Diagnosis: Chest pain Elevated troponin HLD CHF Atrial fibrillation Anxiety Final Discharge Diagnosis: Chest pain Elevated troponin HLD CHF- chronic systolic and diastolic Atrial fibrillation Conclusion Labs Laboratory Tests 06/23/23 20:04: Urine Opiates Screen POSITIVEH, Urine Oxycodone Screen NEGATIVE, Urine Methadone Screen NEGATIVE, Urine Propoxyphene Screen NEGATIVE, Urine Barbiturates Screen NEGATIVE, Ur Tricyclic Antidepressants Screen NEGATIVE, Urine Phencyclidine Screen NEGATIVE, Urine Amphetamines Screen NEGATIVE, Urine Methamphetamines Screen NEGATIVE, Urine Benzodiazepines Screen POSITIVEH, Urine Cocaine Screen NEGATIVE, Urine Cannabinoids Screen NEGATIVE 06/24/23 05:03: White Blood Count 9.2, Red Blood Count 5.02, Hemoglobin 13.9, Hematocrit 44, Mean Corpuscular Volume 88, Mean Corpuscular Hemoglobin 28, Mean Corpuscular Hemoglobin Concent 31L, Red Cell Distribution Width 15.8H, Platelet Count 207, Mean Platelet Volume 12.2, Sodium Level 140, Potassium Level 4.6, Chloride Level 105, Carbon Dioxide Level 26, Anion Gap 9, Blood Urea Nitrogen 14, Creatinine 0.96, Estimat Glomerular Filtration Rate 100, BUN/Creatinine Ratio 15, Glucose Level 111H, Calcium Level 8.9, Corrected Calcium 9.1, Total Bilirubin 1.3H, Aspartate Amino Transf (AST/SGOT) 36H, Alanine Aminotransferase (ALT/SGPT) 28, Alkaline Phosphatase 211H, Troponin I < 0.028, Total Protein 6.8, Albumin 3.8, Triglycerides Level 76, Cholesterol Level 176, LDL Cholesterol Direct 149H, VLDL Cholesterol 15, HDL Cholesterol 36L Conclusion/Plan Pt admitted, troponin near baseline and trended down, echo with EF 45-50% and grade 2 diastolic dysfunction. Cardiology consulted, no interventions recommended. Home meds refilled on d/c as they were last filled in April per med tech. Discussed risks of residential benzodiazepine use and do not recommend in his situation, but can discuss with his primary and Psychiatry. JB VALDEZ MD Jun 24, 2023 14:51
--- NOTE | 2023-06-24 14:51 | Progress Note - Cardiology ---
Cardiology SOAP Progress Note Subjective: No acute events overnight. No acute events overnight. Patient reports that Ativan provided significant relief. Continues to experience intermittent chest discomfort. Troponin normalized. Objective: I&O/Vital Signs 06/24/23 06/24/23 06/24/23 06/24/23 03:44 07:00 07:56 08:00 Temp 36.3 36.5 Pulse 82 84 89 Resp 13 14 B/P (MAP) 102/71 (81) 108/73 (85) Pulse Ox 92 95 97 O2 Delivery Room Air Room Air Room Air 06/24/23 06/24/23 11:48 13:00 Temp 36.2 Pulse 82 88 Resp 18 B/P (MAP) 109/66 (80) Pulse Ox 95 O2 Delivery Room Air 06/24/23 00:00 Intake Total 340 ml Output Total 325 ml Balance 15 ml Results/Procedures: Labs Laboratory Tests 06/23/23 20:04: Urine Opiates Screen POSITIVEH, Urine Oxycodone Screen NEGATIVE, Urine Methadone Screen NEGATIVE, Urine Propoxyphene Screen NEGATIVE, Urine Barbiturates Screen NEGATIVE, Ur Tricyclic Antidepressants Screen NEGATIVE, Urine Phencyclidine Screen NEGATIVE, Urine Amphetamines Screen NEGATIVE, Urine Methamphetamines Screen NEGATIVE, Urine Benzodiazepines Screen POSITIVEH, Urine Cocaine Screen NEGATIVE, Urine Cannabinoids Screen NEGATIVE 06/24/23 05:03: White Blood Count 9.2, Red Blood Count 5.02, Hemoglobin 13.9, Hematocrit 44, Mean Corpuscular Volume 88, Mean Corpuscular Hemoglobin 28, Mean Corpuscular Hemoglobin Concent 31L, Red Cell Distribution Width 15.8H, Platelet Count 207, Mean Platelet Volume 12.2, Sodium Level 140, Potassium Level 4.6, Chloride Level 105, Carbon Dioxide Level 26, Anion Gap 9, Blood Urea Nitrogen 14, Creatinine 0.96, Estimat Glomerular Filtration Rate 100, BUN/Creatinine Ratio 15, Glucose Level 111H, Calcium Level 8.9, Corrected Calcium 9.1, Total Bilirubin 1.3H, Aspartate Amino Transf (AST/SGOT) 36H, Alanine Aminotransferase (ALT/SGPT) 28, Alkaline Phosphatase 211H, Troponin I < 0.028, Total Protein 6.8, Albumin 3.8, Triglycerides Level 76, Cholesterol Level 176, LDL Cholesterol Direct 149H, VLDL Cholesterol 15, HDL Cholesterol 36L Procedures Gen: NAD, quite akathitic. Incessant leg movement. Talking comfortably Neck: No bruits, no JVD Lungs: CTA B; no w-r-r CV: nl s1/s2; no murmurs gallops or rubs, regular rate and rhythm Abd: + BS, soft NT,ND, no hepatosplenomegaly Ext: 2+ radial and DP pulses; no c-c-e, wwp A/P: Assessment: 43-year-old male with a history of methamphetamine use, last urine tox positive in September 2022, atrial fibrillation on Xarelto and metoprolol, status post failed ablation in [place] 2020, COPD, persistently elevated white blood cell count, heart failure with reduced EF last EF 40 to 45% but has been as low as 30 to 35% in recent years, hyperlipidemia, tobacco abuse, history of med noncompliance, elevated BNP with a baseline of approximate 1000 and chronically elevated troponins of 0.04 who presents for evaluation of chest discomfort. ##Chest pain: Review of his prior labs reveals frequently + Tn ranging from 0.03 to 0.08. On this admission, it has trended from 0.03-0.04 down to 0.02 which is relatively unchanged. EKG unchanged from prior and demonstrates AF with controlled ventricular response and diffuse ST depressions and minimal ST elevation in lateral leads. Patient reports improvement after Ativan administration. He does appear quite anxious and emotionally stressed. Transthoracic echocardiogram performed and demonstrates EF of 45 to 50% with mild to moderate TR, mild to moderately reduced RV function. Relatively unchanged from prior echocardiogram in April 2023 -Continue cardiotonic regimen - increase Imdur to 30 mg p.o. daily -Consider Klonopin 1 mg p.o. twice daily x7 days for anxiety -Okay for discharge from cardiac perspective. No acute concerns at this time ## Atrial fib - currently in NSR; continue metop -Restart Xarelto ## Hx of polysubstance abuse and med non compliance - urine drug screen ISAURO BROWN MD Jun 24, 2023 14:51
[2023-06-24] MEDS ORDERED: ROSU20TA2 PO (14:55)
[2023-06-24] MEDS ORDERED: CLON1TAB13 PO (15:18)
[2023-06-25] MEDS ORDERED: ISOSORBIDE MONONITRATE 30 MG TABLET PO SCH (09:00)
== END 2023-06-24 14:52 | disposition home or self-care (01) ==
LOC: EDUNIT# 09:04 → ER 09:05 → 4TH 13:55 → UNDOADMOB 14:06 → CSD 15:14 → 4TH 15:14 → CSD 06-24 12:06 → UNDODISOB 06-24 14:52
PROVIDERS: ADMIT Family Medicine; ATTEND Family Medicine
DX: R07.9 Chest pain, unspecified (principal); R77.8 Other specified abnormalities of plasma proteins; E78.5 Hyperlipidemia, unspecified; I48.91 Unspecified atrial fibrillation; I50.42 Chronic combined systolic (congestive) and diastolic (congestive) heart failure; J44.9 Chronic obstructive pulmonary disease, unspecified; F41.9 Anxiety disorder, unspecified; F19.90 Other psychoactive substance use, unspecified, uncomplicated; F17.210 Nicotine dependence, cigarettes, uncomplicated; Z79.01 Long term (current) use of anticoagulants; Z28.310 Unvaccinated for COVID-19; Z79.899 Other long term (current) drug therapy; Z91.199 Patient's noncompliance with other medical treatment and regimen due to unspecified reason
CPT/HCPCS: 71045; 80053 ×2; 80061; 80306; 83880; 84484 ×2; 85025; 85027; 85610; 93005 ×2; 96372; 96375; 96376 ×2; 99284; C8929; G0378; 36415; 93306

== ENCOUNTER 2023-09-14 16:19 | Observation (INO) | payer OTHER ==
[~2023-09-14] VITALS: Ht 180.3 cm; Wt 102.3 kg
[~2023-09-14 16:19] MED LIST changes: +CLON1TAB13 PO; +ROSU20TA2 PO
[2023-09-14] MEDS ORDERED: ASPIRIN 81 MG CHEWABLE TABLET PO ONE (16:30)
[2023-09-14 16:38] LABS: BASOPHILS % (AUTO) 0 % (0-10); EOSINOPHILS # (AUTO) 0.1 10^3/uL (0.0-0.3); EOSINOPHILS % (AUTO) 1 % (0-10); HEMATOCRIT 52 % (40-54); HEMOGLOBIN 17.1 g/dL (13.3-17.7); LYMPHOCYTES % (AUTO) 10 % (12-44); MEAN CORPUSCULAR HEMOGLOBIN 30 pg (25-34); MEAN CORPUSCULAR HGB CONC 33 g/dL (32-36); MEAN CORPUSCULAR VOLUME 91 fL (80-99); MEAN PLATELET VOLUME 11.2 fL (9.0-12.2); MONOCYTES # (AUTO) 1.2 10^3/uL (0.0-1.0); MONOCYTES % (AUTO) 11 % (0-12); NEUTROPHILS # (AUTO) 8.2 10^3/uL (1.8-7.8); NEUTROPHILS % (AUTO) 78 % (42-75); PLATELET COUNT 202 10^3/uL (130-400); WHITE BLOOD COUNT 10.5 10^3/uL (4.3-11.0)
--- NOTE | 2023-09-14 16:40 | ED Chest Pain ---
General Chief Complaint: Chest Pain Stated Complaint: CHEST PAIN, SOB Source: patient Exam Limitations: no limitations History of Present Illness Date Seen by Provider: Sep 14, 2023 Time Seen by Provider: 16:43 Initial Comments Patient is a 43-year-old male who presents to ED for flulike symptoms. Symptoms started 3 to 4 days ago. Reports a wet productive cough with shortness of breath and wheezing. States he has been feeling hot with chills. States he reports head pressure and chest congestion. Reports substernal left-sided chest pressure over the past 2 to 3 days. Described as pressure intermittent. Reports history of smoking. Patient has associated nausea vomiting diarrhea. No known fever. States he was seen at [facility] today they tested him for COVID and flu which was negative. Took Tessalon Perles without improvement. States he is not getting any better. Patient did relapse and used meth, alcohol and marijuana 4 days ago. 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 Currently taking Xarelto. Denies of any increasing leg swelling. Allergies and Home Medications Allergies Coded Allergies: hydrocodone (Verified Allergy, Severe, ITCHING, 06/23/23) PT HAS TOLERATED MORPHINE AND HYDROMORPHONE IN PAST Penicillins (Verified Allergy, Unknown, ALMOST FROM WHEN YOUNGER, 06/23/23) Patient Home Medication List Home Medication List Reviewed: Yes Aspirin (Aspirin) 81 Mg Tab.chew, 81 MG PO DAILY Prescribed by: BK COLE on 05/06/23 1147 Last Action: Last Taken Edited Empagliflozin (Jardiance) 10 Mg Tablet, 10 MG PO HS Prescribed by: JB VALDEZ on 06/24/231454 Last Action: Last Taken Edited Furosemide (Furosemide) 40 Mg Tablet, 80 MG PO DAILY, (Reported) Entered as Reported by: KLAUDIA OTTO on 06/24/23 1354 Last Action: Last Taken Edited Lisinopril (Lisinopril) 2.5 Mg Tablet, 2.5 MG PO HS Prescribed by: JB VALDEZ on 06/24/231454 Last Action: Last Taken Edited Metoprolol Succinate (Metoprolol Succinate) 25 Mg Tab.er.24h, 25 MG PO HS Prescribed by: JB VALDEZ on 06/24/23 1455 Last Action: Last Taken Edited Pantoprazole Sodium (Pantoprazole Sodium) 40 Mg Tablet., 40 MG PO HS Prescribed by: JB VALDEZ on 06/24/231454 Last Action: Last Taken Edited Rivaroxaban (Xarelto Tablet) 20 Mg Tablet, 20 MG PO HS Prescribed by: JB VALDEZ on 06/24/231454 Last Action: Last Taken Edited Rosuvastatin Calcium (Crestor) 20 Mg Tablet, 20 MG PO DAILY Prescribed by: JB VALDEZ on 06/24/231454 Last Action: Last Taken Edited Discontinued Medications Clonazepam (Clonazepam) 1 Mg Tablet, 1 MG PO BID Discontinued Reason: No Longer Taking Prescribed by: MARCY ALVA on 06/24/231517 Last Action: Discontinued Review of Systems Review of Systems Constitutional: chills; No diaphoresis; fever, malaise, weakness EENTM: No Double Vision, No Eye Pain Respiratory: Cough, Shortness of Air Cardiovascular: Chest Pain Gastrointestinal: Denies Abdominal Pain; Diarrhea, Nausea, Vomiting Genitourinary: Denies Burning, Denies Discharge, Denies Drainage, Denies Frequency Musculoskeletal: No back pain, No joint pain Skin: No change in color, No change in hair/nails All Other Systems Reviewed Negative Unless Noted: Yes Past Dzpihtd-Skzurd-Kiugqv Hx Immunizations Up To Date Tetanus Booster (TDap): Unknown First/Initial COVID19 Vaccinat: N/A Second COVID19 Vaccination Edinson: N/A Third COVID19 Vaccination Date: N/A Seasonal Allergies Seasonal Allergies: No Past Medical History Surgery/Hospitalization HX: hernia repair, appendectomy Htn, chf, afib Surgeries: Yes (HERNIA REPAIR; THORACENTESIS 01/18/23;CARDIAC CATH; CARDIOVERSIONS) Abdominal, Appendectomy, Cardiac Respiratory: Yes (PLEURAL EFFUSION/THORACENTESIS) Cardiac: Yes ( ATRIAL FIB/FLUTTER; CHF;VARICOSE VEINS;RBBB) Atrial Fibrillation, Cardiomyopathy, Coronary Artery Disease, High Cholesterol, Hypertension Neurological: No Genitourinary: No Gastrointestinal: Yes (HERNIA) Gastroesophageal Reflux Musculoskeletal: Yes Degenerate Disk Disease Endocrine: No HEENT: No Cancer: No Psychosocial: Yes Anxiety, PTSD Integumentary: No Blood Disorders: No Family Medical History Heart Disease, Diabetes Physical Exam Vital Signs Vital Signs - First Documented 09/14/23 09/14/23 16:22 18:48 Temp 37.0 Pulse 96 Resp 18 B/P (MAP) 120/85 (97) Pulse Ox 96 O2 Delivery Room Air O2 Flow Rate 0 FiO2 21 Capillary Refill : Height, Weight, BMI Height: '" Weight: lbs. oz. kg; 32.85 BMI Method: General Appearance: No Apparent Distress, WD/WN HEENT: PERRL/EOMI, TMs Normal, Normal ENT Inspection, Pharynx Normal Neck: Full Range of Motion, Normal Inspection, Non Tender, Supple Respiratory: Chest Non Tender, Lungs Clear, Normal Breath Sounds, No Accessory Muscle Use, No Respiratory Distress Cardiovascular: No JVD, No Murmur, Irregularly Irregular Gastrointestinal: Normal Bowel Sounds, No Organomegaly, No Pulsatile Mass, Non Tender Extremity: Normal Capillary Refill, Normal Inspection, Normal Range of Motion Neurologic/Psychiatric: Alert, Oriented x3, No Motor/Sensory Deficits, Normal Mood/Affect, student records specialist II-XII Norm as Tested Skin: Normal Color, Warm/Dry Procedures/Interventions Date of ETT Placement: Oct 08, 2022 Time of ETT Placement: 1526 Progress/Results/Core Measures Results/Orders Lab Results Laboratory Tests Test 09/14/23 16:25 09/14/23 16:40 09/14/23 18:35 Range/Units White Blood Count 10.5 4.3-11.0 10^3/uL Red Blood Count 5.75 H 4.30-5.52 10^6/uL Hemoglobin 17.1 13.3-17.7 g/dL Hematocrit 52 40-54 % Mean Corpuscular Volume 91 80-99 fL Mean Corpuscular Hemoglobin 30 25-34 pg Mean Corpuscular Hemoglobin Concent 33 32-36 g/dL Red Cell Distribution Width 17.2 H 10.0-14.5 % Platelet Count 202 130-400 10^3/uL Mean Platelet Volume 11.2 9.0-12.2 fL Immature Granulocyte % (Auto) 1 % Neutrophils (%) (Auto) 78 H 42-75 % Lymphocytes (%) (Auto) 10 L 12-44 % Monocytes (%) (Auto) 11 0-12 % Eosinophils (%) (Auto) 1 0-10 % Basophils (%) (Auto) 0 0-10 % Neutrophils # (Auto) 8.2 H 1.8-7.8 10^3/uL Lymphocytes # (Auto) 1.0 1.0-4.0 10^3/uL Monocytes # (Auto) 1.2 H 0.0-1.0 10^3/uL Eosinophils # (Auto) 0.1 0.0-0.3 10^3/uL Basophils # (Auto) 0.0 0.0-0.1 10^3/uL Immature Granulocyte # (Auto) 0.1 0.0-0.1 10^3/uL Prothrombin Time 20.8 H 12.2-14.7 SEC INR Comment 1.7 H 0.8-1.4 Activated Partial Thromboplast Time 48 H 24-35 SEC Sodium Level 134 L 135-145 MMOL/L Potassium Level 3.8 3.6-5.0 MMOL/L Chloride Level 97 L 98-107 MMOL/L Carbon Dioxide Level 25 21-32 MMOL/L Anion Gap 12 5-14 MMOL/L Blood Urea Nitrogen 14 7-18 MG/DL Creatinine 1.08 0.60-1.30 MG/DL Estimat Glomerular Filtration Rate 87 BUN/Creatinine Ratio 13 Glucose Level 110 H 70-105 MG/DL Calcium Level 9.9 8.5-10.1 MG/DL Corrected Calcium 9.6 8.5-10.1 MG/DL Magnesium Level 1.7 1.6-2.4 MG/DL Total Bilirubin 2.3 H 0.1-1.0 MG/DL Aspartate Amino Transf (AST/SGOT) 43 H 5-34 U/L Alanine Aminotransferase (ALT/SGPT) 34 0-55 U/L Alkaline Phosphatase 220 H 40-136 U/L Myoglobin 178.4 H 10.0-92.0 NG/ML Troponin I < 0.028 0.032 H <0.028 NG/ML B-Type Natriuretic Peptide 625.2 H <100.0 PG/ML Total Protein 8.5 H 6.4-8.2 GM/DL Albumin 4.4 3.2-4.5 GM/DL Lipase 5 L 8-78 U/L Urine Opiates Screen NEGATIVE NEGATIVE Urine Oxycodone Screen NEGATIVE NEGATIVE Urine Methadone Screen NEGATIVE NEGATIVE Urine Barbiturates Screen NEGATIVE NEGATIVE Ur Tricyclic Antidepressants Screen NEGATIVE NEGATIVE Urine Phencyclidine Screen NEGATIVE NEGATIVE Urine Amphetamines Screen NEGATIVE NEGATIVE Urine Methamphetamines Screen POSITIVE H NEGATIVE Urine Benzodiazepines Screen NEGATIVE NEGATIVE Urine Cocaine Screen NEGATIVE NEGATIVE Urine Cannabinoids Screen POSITIVE H NEGATIVE My Orders Orders - AHSAN GARCIA PA Cbc And Automated Diff (09/14/23 16:25) Magnesium (09/14/23 16:25) Chest 1 View, Ap/Pa Only (09/14/23 16:25) Ekg Tracing (09/14/23 16:25) Comprehensive Metabolic Panel (09/14/23 16:25) Myoglobin Serum (09/14/23 16:25) Protime With Inr (09/14/23 16:25) Partial Thromboplastin Time (09/14/23 16:25) O2 (09/14/23 16:25) Monitor-Rhythm Ecg Trace Only (09/14/23 16:25) Ed Iv/Invasive Line Start (09/14/23 16:25) Lipase (09/14/23 16:25) Bnp Harvey (09/14/23 16:25) Troponin I Patricia (09/14/23 16:25) Aspirin Chewable Tablet (Aspirin Chewabl (09/14/23 16:30) Drug Screen Stat (Urine) (09/14/23 16:40) Ondansetron Injection (Ondansetron Inj (09/14/23 17:15) Acetaminophen Tablet (Acetaminophen Ta (09/14/23 17:15) Lorazepam Injection (Lorazepam Injection (09/14/23 17:15) Lorazepam Injection (Lorazepam Injection (09/14/23 18:30) Troponin I Harvey (09/14/23 18:23) Morphine Injection (Morphine Injection (09/14/23 18:30) Ipratropium/Albuterol Inh Soln (Ipratrop (09/14/23 18:30) Svn Small Volume Nebulizer (09/14/23 18:29) Ceftriaxone Iv/Im (Ceftriaxone Iv/Im) (09/14/23 20:30) Medications Given in ED Vital Signs/I&O 09/14/23 09/14/23 09/14/23 09/14/23 16:22 18:48 20:50 21:00 Temp 37.0 Pulse 96 94 Resp 18 21 B/P (MAP) 120/85 (97) 114/74 Pulse Ox 96 95 94 O2 Delivery Room Air Room Air Room Air O2 Flow Rate 0 FiO2 21 09/14/23 23:59 Intake Total 50 ml Balance 50 ml Comment EKG heart rate 101 atrial fibrillation, probable RVH with secondary repolarization abnormality, QRS duration 107 MS, QTc 437 MS. Departure Communication (PCP) Reviewed previous ER visits, H&P, lab testing. Extensive cardiac history. Relapse with meth, 4 days ago. Flulike symptoms for the past 3 to 4 days. Reports substernal and left-sided chest pain with shortness of breath. He does report a cough. Tested negative for COVID influenza today at [facility]. Patient Was given Tessalon Perles with no improvement. He states his symptoms are not getting better. Due to his extensive cardiac history, cardiac workup was initiated with a chest x-ray. Did receive a full aspirin. Due to the chest pain recommend sublingual nitro but patient refused. Patient states he feels anxious and is wanting something for his anxiety. CBC showed normal white blood count, hemoglobin. Chemistry showed sodium 134, chloride 97. Initial troponin negative. BNP 653. Bilirubin 2.3 and is chronically elevated. improvement of his BNP from his last visit. BNP typically runs around 1000. denies of any leg pain, leg swelling. Clinically does not appear to be CHF exacerbation. Chest x-ray was ordered which was negative for pneumonia, pneumothorax, plueral effusion. States He has been taking his Xarelto. Afebrile. EKG showed Afib ST deviation and T wave abnormality in the lateral and inferior leads which appears chronic after reviewing previosu EKG. History of AFib. Heart rate around 90 to 100 bpm. Refused breathing treatment. Did receive a dose of Ativan for the anxiety and dose of morphine for the pain. Chest pain is slightly improved. He has been coughing during most of his stay. There was no significant wheezing noted on exam. Oxygen 96% on room air. Did give a dose of Rocephin prophylactically. History of smoking with a history of COPD. Positive for methamphetamine and THC. Did have a cardiac cath in April of 2023 which showed nonobstructive pattern by Dr. Hernandez. Does follow Dr. Bejarano. Admitted last month evaluated by cardiology and treated conservatively. EF 45- 50% He states he has been taking his medication. At this time delta troponin 2-hour was ordered. Slight increase 0.032. History of slight elevated troponin. Did consult his development manager Dr. Bejarano and recommended admission and continue with his medications at this time. Did not recommend NPO. Patient was discussed with Dr. Valdez who is aware of the patient and will accept patient at this time. Delta troponins. Impression Primary Impression: Chest pain Disposition: ADMITTED INPATIENT Condition: Stable Admissions Decision to Admit Reason: Admit from ER (General) Decision to Admit/Date: Sep 14, 2023 Time/Decision to Admit Time: 19:23 Departure-Patient Inst. Referrals: SAMANTA RANDALL APRN (PCP/Family) Primary Care Physician AHSAN GARCIA Sep 14, 2023 16:40
[2023-09-14 16:49] LABS: ALBUMIN 4.4 GM/DL (3.2-4.5); CHLORIDE 97 MMOL/L (98-107); INR 1.7 (0.8-1.4); POTASSIUM 3.8 MMOL/L (3.6-5.0); PROTHROMBIN TIME PATIENT 20.8 SEC (12.2-14.7); SODIUM 134 MMOL/L (135-145)
[2023-09-14 16:50] LABS: CALCIUM 9.9 MG/DL (8.5-10.1)
[2023-09-14 16:51] LABS: GLUCOSE 110 MG/DL (70-105); TOTAL PROTEIN 8.5 GM/DL (6.4-8.2)
[2023-09-14 16:53] LABS: BILIRUBIN,TOTAL 2.3 MG/DL (0.1-1.0); CARBON DIOXIDE 25 MMOL/L (21-32)
[2023-09-14 16:55] LABS: ALKALINE PHOSPHATASE 220 U/L (40-136); CREATININE SERUM 1.08 MG/DL (0.60-1.30); GFR ESTIMATED 87
[2023-09-14 16:56] LABS: BUN/CREATININE RATIO 13
[2023-09-14 16:58] LABS: ALANINE AMINOTRANSFERASE 34 U/L (0-55); MAGNESIUM 1.7 MG/DL (1.6-2.4)
--- NOTE | 2023-09-14 16:58 | Diagnostic Imaging Report ---
CLINICAL INDICATION: Patient with chest pain. EXAM: Portable chest x-ray upright view. COMPARISON: Chest x-ray dated 06/23/2023. FINDINGS: Lungs/pleura: Lungs are clear. There is no pneumothorax. There is no pleural effusion. Mediastinum: Unremarkable. Pulmonary vasculature: Unremarkable. Heart: Unremarkable. Bones/extrathoracic soft tissue: Stable bony fracture deformity involving a posterior right mid rib. IMPRESSION: There is no radiographic evidence of acute cardiopulmonary process. Dictated by: Dictated on workstation # [id number]
[2023-09-14 16:59] LABS: LIPASE 5 U/L (8-78)
[2023-09-14] MEDS ORDERED: ONDANSETRON INJECTION 4 MG/2 ML (SDV) IVP ONE (17:15)
[2023-09-14] MEDS ORDERED: ACETAMINOPHEN 325 MG TABLET PO ONE (17:15)
[2023-09-14 17:43] LABS: AMPHETAMINE SCREEN, URINE NEGATIVE (NEGATIVE); BARBITURATE SCREEN URINE NEGATIVE (NEGATIVE); CANNABINOID SCREEN, URINE POSITIVE (NEGATIVE); COCAINE SCREEN URINE NEGATIVE (NEGATIVE); METHADONE STAT NEGATIVE (NEGATIVE); OPIATE SCREEN URINE NEGATIVE (NEGATIVE); OXYCODONE STAT NEGATIVE (NEGATIVE); TRICYCLIC ANTIDEPRESSANTS SCRE NEGATIVE (NEGATIVE)
[2023-09-14] MEDS ORDERED: morphine INJ 4 MG/ML 1 ML (VIAL/SYRINGE) IVP ONE (18:30)
[2023-09-14] MEDS ORDERED: RT-Ipratropium/Albuterol NEB 3 ML VIAL INH ONE (18:30)
[2023-09-14] MEDS ORDERED: cefTRIAXone IV/IM 1,000 MG in NS (IVPB) 50 ML 50 ML IV STA (20:30)
[2023-09-14 21:15] VITALS: BP 108/72
[2023-09-14] MEDS ORDERED: CATHETER FLUSH 10 ML SYR IVP PRN (22:00)
[2023-09-14] MEDS: KETOROLAC INJ 30 MG/ML VIAL IVP PRN (22:15)
[2023-09-14] MEDS: LORazepam 0.5 MG TABLET PO PRN (22:15)
[2023-09-14] MEDS: CATHETER FLUSH 10 ML SYR IVP SCH (22:16)
[2023-09-14 22:38] VITALS: BP 108/72
[2023-09-14] MEDS ORDERED: RT-ALBUTEROL SULF 2.5 MG/3 ML PRE-MIX VIAL INH PRN (22:45)
[2023-09-15] VITALS (9 sets, daily range): BP systolic 97–122; BP diastolic 68–88
[2023-09-15] MEDS: morphine INJ 4 MG/ML 1 ML (VIAL/SYRINGE) IVP PRN ×5 (01:37→21:58)
[2023-09-15 04:59] LABS: BASOPHILS % (AUTO) 0 % (0-10); EOSINOPHILS # (AUTO) 0.3 10^3/uL (0.0-0.3); EOSINOPHILS % (AUTO) 5 % (0-10); HEMATOCRIT 47 % (40-54); HEMOGLOBIN 15.7 g/dL (13.3-17.7); LYMPHOCYTES # (AUTO) 0.9 10^3/uL (1.0-4.0); LYMPHOCYTES % (AUTO) 12 % (12-44); MEAN CORPUSCULAR HEMOGLOBIN 30 pg (25-34); MEAN CORPUSCULAR HGB CONC 33 g/dL (32-36); MEAN CORPUSCULAR VOLUME 90 fL (80-99); MONOCYTES % (AUTO) 13 % (0-12); NEUTROPHILS # (AUTO) 5.2 10^3/uL (1.8-7.8); NEUTROPHILS % (AUTO) 69 % (42-75); PLATELET COUNT 198 10^3/uL (130-400); WHITE BLOOD COUNT 7.4 10^3/uL (4.3-11.0)
[2023-09-15 05:09] LABS: CHLORIDE 101 MMOL/L (98-107); POTASSIUM 3.5 MMOL/L (3.6-5.0); SODIUM 135 MMOL/L (135-145)
[2023-09-15 05:10] LABS: CALCIUM 9.3 MG/DL (8.5-10.1)
[2023-09-15 05:11] LABS: GLUCOSE 95 MG/DL (70-105); TRIGLYCERIDES 77 MG/DL (<150); VLDL CHOLESTEROL 15 MG/DL (5-40)
[2023-09-15 05:12] LABS: CARBON DIOXIDE 24 MMOL/L (21-32)
[2023-09-15 05:15] LABS: CREATININE SERUM 0.99 MG/DL (0.60-1.30); GFR ESTIMATED 96
[2023-09-15 05:16] LABS: BUN/CREATININE RATIO 17; CHOLESTEROL 184 MG/DL (< 200)
[2023-09-15 05:17] LABS: HDL CHOLESTEROL 34 MG/DL (40-60)
[2023-09-15] MEDS: CATHETER FLUSH 10 ML SYR IVP SCH ×3 (06:12→21:58)
[2023-09-15] MEDS: KETOROLAC INJ 30 MG/ML VIAL IVP PRN (07:55)
[2023-09-15] MEDS: LORazepam 0.5 MG TABLET PO PRN ×3 (07:56→20:26)
--- NOTE | 2023-09-15 08:41 | Consultation-Cardiology ---
HPI-Cardiology Cardiology Consultation: Date of Consultation 09/15/23 Time Seen by a Provider: 08:10 Date of Admission 09-14-23 Attending Physician Mary Robles Aprn Admitting Physician Admitting Physician: Terra Landa MD Attending Physician: Terra Landa MD Consulting Physician Jeannette Bejarano MD HPI: Chief Complaint: Chest pain Mr. Valerio is a 43 yr old male who has been admitted to ICU 12 from the ED with c/o CP. He reports chest congestion, cough and chest discomfort worse with cough and deep breathing. He reports he has been off of his medications for at least a week or maybe more. He does report he took all of his medications yesterday. He reports he has relapsed and used meth (smokes) within the last 4 days. He c/o SOB. No c/o LE swelliing. He reports some dizziness, but no syncope or near syncope. No c/o n/v/d. Review of Systems-Cardiology Review of Systems Constitutional: No chills, No fever; malaise Eyes: No vision change Ears/Nose/Throat: No epistaxis, No recent hearing loss Respiratory: As described under HPI Cardiovascular: As described under HPI Gastrointestinal: No constipation, No diarrhea, No nausea, No vomiting Genitourinary: No dysuria, No hematuria Musculoskeletal: no symptoms reported Skin: No rash on exposed areas, No ulcerations on exposed areas Psychiatric/Neurological: anxiety, depression; No seizure, No focal weakness, No syncope Hematologic: No bleeding abnormalities All Other Systems Reviewed Negative Unless Noted: Yes XXD-Pyduux-Dwokev Hx Patient Social History Smoking Status: Current Everyday Smoker 2nd Hand Smoke Exposure: Yes Alcohol Use?: Yes Substance type: Methamphetamine, Marijuana Tobacco type used: Cigarettes Immunizations Up To Date Tetanus Booster (TDap): Unknown Date of Influenza Vaccine: Sep 14, 2023 Past Medical History PMH As described under Assessment. Family Medical History Family Medical History: He states his father and brother both had hypertrophic cardiomyopathy. They both from the condition. His brother actually had a heart transplant and then . Allergies and Home Medications Allergies Coded Allergies: hydrocodone (Verified Allergy, Severe, ITCHING, 06/23/23) PT HAS TOLERATED MORPHINE AND HYDROMORPHONE IN PAST Penicillins (Verified Allergy, Unknown, ALMOST FROM WHEN YOUNGER, 06/23/23) Patient Home Medication List Albuterol Sulfate (Ventolin Hfa) 90 Mcg Hfa.aer.ad, 2 PUFF PO Q6H PRN for SHORTNESS OF BREATH, (Reported) Entered as Reported by: JACQUELINE TOBIAS on 09/15/231403 Last Action: Reviewed Diltiazem HCl (Diltiazem 24Hr ER) 180 Mg Cap.er.24h, 180 MG PO DAILY Prescribed by: ANN RHOADES on 09/16/23 0800 Empagliflozin (Jardiance) 10 Mg Tablet, 10 MG PO DAILY, (Reported) Entered as Reported by: JACQUELINE TOBIAS on 09/15/231402 Last Action: Reviewed Famotidine (Acid Superintendent Pressure (FAMOTIDINE)) 20 Mg Tablet, 20 MG PO BID, (Reported) Entered as Reported by: JACQUELINE TOBIAS on 09/15/231400 Last Action: Continued Lisinopril (Lisinopril) 2.5 Mg Tablet, 2.5 MG PO DAILY, (Reported) Entered as Reported by: JACQUELINE TOBIAS on 09/15/231400 Last Action: Reviewed Metoprolol Succinate (Metoprolol Succinate) 25 Mg Tab.er.24h, 25 MG PO HS, (Reported) Entered as Reported by: JACQUELINE TOBIAS on 09/15/231401 Last Action: Reviewed Rivaroxaban (Xarelto) 20 Mg Tablet, 20 MG PO HS, (Reported) Entered as Reported by: JACQUELINE TOBIAS on 09/15/231402 Last Action: Reviewed Rosuvastatin Calcium (Rosuvastatin Calcium) 20 Mg Tablet, 20 MG PO DAILY, (Reported) Entered as Reported by: JACQUELINE TOBIAS on 09/15/231402 Last Action: Reviewed Discontinued Medications Clonazepam (Clonazepam) 1 Mg Tablet, 1 MG PO BID Discontinued Reason: No Longer Taking Prescribed by: MARCY ALVA on 06/24/23 1518 Last Action: Discontinued Physical Exam-Cardiology Physical Exam Vital Signs/I&O 09/15/23 09/15/23 09/15/23 09/15/23 21:00 22:00 22:59 23:40 Temp 36.7 Pulse 76 82 89 Resp 13 10 20 B/P (MAP) 122/73 (89) 120/84 (96) 115/78 (90) Pulse Ox 88 93 94 O2 Delivery Room Air Room Air Nasal Cannula O2 Flow Rate 2.00 09/16/23 09/16/23 09/16/23 09/16/23 00:00 00:11 03:42 04:00 Temp 36.5 Pulse 78 71 76 83 Resp 8 18 17 B/P (MAP) 101/50 (67) 103/76 (85) 122/77 (92) Pulse Ox 93 96 96 O2 Delivery Nasal Cannula Nasal Cannula O2 Flow Rate 2.00 2.00 09/16/23 09/16/23 09/16/23 07:00 08:00 08:00 Temp 35.7 Pulse 72 71 Resp 10 B/P (MAP) 110/77 (85) Pulse Ox 89 O2 Delivery Nasal Cannula O2 Flow Rate 2.00 09/15/23 23:59 Intake Total 2950 ml Output Total 1450 ml Balance 1500 ml Capillary Refill : Less Than 3 Seconds Constitutional: AAO x 3, well-developed, well-nourished HEENT: PERRL, hearing is well preserved Neck: No carotid bruit; carotid pulses are 2 + bilaterally Respiratory: No accessory muscle use, No respiratory distress; chest expansion is symmetric, chest is bilaterally symmetric, rhonchi (scattered), other (coarse breath sounds) Cardiovascular: irregularly irregular; No JVD; S1 and S2 Gastrointestinal: No tender; soft, round; No guarding; audible bowel sounds Extremities: no lower extremity edema bilateral Neurologic/Psychiatric: other (moves all extremities) Skin: No rash on exposed areas, No ulcerations on exposed areas Data Review Labs Laboratory Tests 09/15/23 11:48: Troponin I 0.047H 09/16/23 05:00: Sodium Level 131L, Potassium Level 4.4, Chloride Level 101, Carbon Dioxide Level 18L, Anion Gap 12, Blood Urea Nitrogen 21H, Creatinine 0.86, Estimat Glomerular Filtration Rate 109, BUN/Creatinine Ratio 24, Glucose Level 94, Calcium Level 8.8, Magnesium Level 2.0 Radiology NAME: PAL VALERIO [facility] REC#: [id number] PT STATUS: REG ER : 1980 PHYSICIAN: AHSAN GARCIA ADMIT DATE: 09/14/23/ER Signed Date of Exam:09/14/23 CHEST 1 VIEW, AP/PA ONLY CLINICAL INDICATION: Patient with chest pain. EXAM: Portable chest x-ray upright view. COMPARISON: Chest x-ray dated 06/23/2023. FINDINGS: Lungs/pleura: Lungs are clear. There is no pneumothorax. There is no pleural effusion. Mediastinum: Unremarkable. Pulmonary vasculature: Unremarkable. Heart: Unremarkable. Bones/extrathoracic soft tissue: Stable bony fracture deformity involving a posterior right mid rib. IMPRESSION: There is no radiographic evidence of acute cardiopulmonary process. Dictated by: Dictated on workstation # [id number] Dict: 09/14/23 165 Trans: 09/14/23 172 [id number] Interpreted by: NIGEL TORRE MD Electronically signed by: NIGEL TORRE MD 09/14/231722 ECG Impression ECG Initial ECG Impression: Atrial Fibrillation A/P-Cardiology Assessment/Admission Diagnosis URI - management per medical services Chest pain - worse with cough/deep breathing - no evidence of ACS Acute on chronic systolic CHF - continue diuretics Shortness of breath - CXR 09-14-23 did not show pleural effusion - H/O thoracentesis on 01-18-[address] Tadeo (2150ml) H/O non-sustained WCT on 10/21/22 and 10/22/22 - probably aberrance during A Fib with RVR Acute on chronic systolic congestive heart failure - Echo was done in April 2022 with ejection fraction 40 to 45% with biatrial enlargement, moderate mitral regurgitation, pulmonary artery pressure 45 to 50 mmHg. - Echo of 10-11-[address] Hernandez showed LVEF 35-40%. Mod sized L pleural effusion. Mild MR. Mild to mod TR. - Echo on 10-26-22: LVEF 50-55%, mod biatrial enlargement, mod pleural eff - Echo on 06-24-[address] Russo: LVEF 45-50%. mod biatrial enlargement. Mild MR. RVSP 49 mmHg Persistent atrial fibrillation/flutter - History of ablation done in [place] in late 2020, previously refusing any further ablation - Had previously been on Eliquis but had had compliance issues - Lately on Xarelto for stroke prophylaxis - but has been non-compliant Nonischemic cardiomyopathy - cardiac catheterization done in [place] around 2019 did not show any obstructive disease. - Cardiac cath of 04-15-[address] Hernandez: Mild to moderate coronary ectasia in the circumflex artery, 40 to 50% stenosis in the mid LAD otherwise nonobstructive disease. Significantly elevated left ventricular end-diastolic pressure. Normal aortic arch and great vessels of the neck History of methamphetamine abuse. - recent relapse (tested positive this admission) - advised cessation and treatment program EtOH abuse - currently refraining Hyperlipidemia Tobaccoism - smoking 3 cigs per day - cessation advised History of noncompliance with medication or medical instructions History of elevated liver enzymes. - Probably underlying cirrhosis seen on CTA of the abdomen in the past. Discussion and Recomendations URI - management per medical services Chest pain - one minimally elevated troponin out of 3 NICM - has been non-compliant with medications - restart NOLVIA, BB, SGLT2 inhib, diuretics - Echocardiogram today Chronic a-fib - non-compliant with OAC - restart Xarelto Replace electrolytes Monitor lab closely Further recs will be based on his hospital course Advise cessation of methamphetamine use and out pt treatment program Spoke with Dr. Landa this morning We would like to thank her for this consult Clinical Quality Measures AMI/AHF: ASA po Prior to arrival: ANN Correa Sep 15, 2023 08:41
--- NOTE | 2023-09-15 08:43 | History & Physical ---
HPI History of Present Illness: 43 yo male came to ER due to chest pain, nausea, vomiting for last 3 days. [place] feverish, but doesn't anymore. Has had cough as well as nasal congestion for 3-4 days. No known specific exposures. He has been on some long trips, could have been exposed without knowing. Reports he has his home medications but neglected them for the last week and a half as he was on a trip to a for a loved one and he relapsed with methamphetamine use for a couple of days, reports last use 4 days ago. Last THC use about 2 weeks ago. Source: patient Date seen by provider: Sep 15, 2023 Time Seen by Provider: 08:38 Attending Physician Mary Robles Aprn PCP Admitting Physician: Jb Landa MD Attending Physician: Jb Landa MD Consult Date of Admission Sep 14, 2023 at 21:09 Home Medications Home Medications Reviewed patient Home Medication Reconciliation performed by pharmacy medication reconciliations health record technician and/or nursing. Patients Allergies have been reviewed. Allergies Coded Allergies: hydrocodone (Verified Allergy, Severe, ITCHING, 06/23/23) PT HAS TOLERATED MORPHINE AND HYDROMORPHONE IN PAST Penicillins (Verified Allergy, Unknown, ALMOST FROM WHEN YOUNGER, 06/23/23) [id number] Hx Patient Social History Drug of Choice: METHAMPHETAMINE, MARIJUANA Smoking Status: Current Everyday Smoker 2nd Hand Smoke Exposure: Yes Alcohol Use?: Yes Substance type: Methamphetamine, Marijuana Tobacco type used: Cigarettes Immunizations Up To Date Tetanus Booster (TDap): Unknown Influenza Vaccine Up-to-Date: Yes; Up-to-Date First/Initial COVID19 Vaccinat: N/A Second COVID19 Vaccination [place]: N/A Third COVID19 Vaccination Date: N/A Past Medical History PMHx: Atrial fibrillation/atrial flutter Meth use Congestive heart failure HTN SurgHx: Appendectomy Family Medical History Significant Family History: Heart Disease, Diabetes Review of Systems (CHC) Constitutional: fever EENTM: nose congestion Respiratory: cough, short of breath Cardiovascular: chest pain Gastrointestinal: No abdominal pain, No constipation; diarrhea, nausea, vomiting Genitourinary: No dysuria; other (dark urine) Skin: No rash Reviewed Test Results Reviewed Test Results Lab Laboratory Tests Test 09/14/23 16:25 09/14/23 16:40 09/14/23 18:35 09/15/23 04:21 Range/Units White Blood Count 10.5 7.4 4.3-11.0 10^3/uL Red Blood Count 5.75 H 5.25 4.30-5.52 10^6/uL Hemoglobin 17.1 15.7 13.3-17.7 g/dL Hematocrit 52 47 40-54 % Mean Corpuscular Volume 91 90 80-99 fL Mean Corpuscular Hemoglobin 30 30 25-34 pg Mean Corpuscular Hemoglobin Concent 33 33 32-36 g/dL Red Cell Distribution Width 17.2 H 16.8 H 10.0-14.5 % Platelet Count 202 198 130-400 10^3/uL Mean Platelet Volume 11.2 12.0 9.0-12.2 fL Immature Granulocyte % (Auto) 1 0 % Neutrophils (%) (Auto) 78 H 69 42-75 % Lymphocytes (%) (Auto) 10 L 12 12-44 % Monocytes (%) (Auto) 11 13 H 0-12 % Eosinophils (%) (Auto) 1 5 0-10 % Basophils (%) (Auto) 0 0 0-10 % Neutrophils # (Auto) 8.2 H 5.2 1.8-7.8 10^3/uL Lymphocytes # (Auto) 1.0 0.9 L 1.0-4.0 10^3/uL Monocytes # (Auto) 1.2 H 1.0 0.0-1.0 10^3/uL Eosinophils # (Auto) 0.1 0.3 0.0-0.3 10^3/uL Basophils # (Auto) 0.0 0.0 0.0-0.1 10^3/uL Immature Granulocyte # (Auto) 0.1 0.0 0.0-0.1 10^3/uL Prothrombin Time 20.8 H 12.2-14.7 SEC INR Comment 1.7 H 0.8-1.4 Activated Partial Thromboplast Time 48 H 24-35 SEC Sodium Level 134 L 135 135-145 MMOL/L Potassium Level 3.8 3.5 L 3.6-5.0 MMOL/L Chloride Level 97 L 101 98-107 MMOL/L Carbon Dioxide Level 25 24 21-32 MMOL/L Anion Gap 12 10 5-14 MMOL/L Blood Urea Nitrogen 14 17 7-18 MG/DL Creatinine 1.08 0.99 0.60-1.30 MG/DL Estimat Glomerular Filtration Rate 87 96 BUN/Creatinine Ratio 13 17 Glucose Level 110 H 95 70-105 MG/DL Calcium Level 9.9 9.3 8.5-10.1 MG/DL Corrected Calcium 9.6 8.5-10.1 MG/DL Magnesium Level 1.7 1.6-2.4 MG/DL Total Bilirubin 2.3 H 0.1-1.0 MG/DL Aspartate Amino Transf (AST/SGOT) 43 H 5-34 U/L Alanine Aminotransferase (ALT/SGPT) 34 0-55 U/L Alkaline Phosphatase 220 H 40-136 U/L Myoglobin 178.4 H 10.0-92.0 NG/ML Troponin I < 0.028 0.032 H < 0.028 <0.028 NG/ML B-Type Natriuretic Peptide 625.2 H <100.0 PG/ML Total Protein 8.5 H 6.4-8.2 GM/DL Albumin 4.4 3.2-4.5 GM/DL Lipase 5 L 8-78 U/L Urine Opiates Screen NEGATIVE NEGATIVE Urine Oxycodone Screen NEGATIVE NEGATIVE Urine Methadone Screen NEGATIVE NEGATIVE Urine Barbiturates Screen NEGATIVE NEGATIVE Ur Tricyclic Antidepressants Screen NEGATIVE NEGATIVE Urine Phencyclidine Screen NEGATIVE NEGATIVE Urine Amphetamines Screen NEGATIVE NEGATIVE Urine Methamphetamines Screen POSITIVE H NEGATIVE Urine Benzodiazepines Screen NEGATIVE NEGATIVE Urine Cocaine Screen NEGATIVE NEGATIVE Urine Cannabinoids Screen POSITIVE H NEGATIVE Triglycerides Level 77 <150 MG/DL Cholesterol Level 184 < 200 MG/DL LDL Cholesterol Direct 159 H 1-129 MG/DL VLDL Cholesterol 15 5-40 MG/DL HDL Cholesterol 34 L 40-60 MG/DL Physical Exam-(CHC) Physical Exam Vital Signs VS - Last 72 Hours, by Label 09/14/23 09/14/23 09/14/23 09/14/23 16:22 18:48 20:50 21:00 Temp 37.0 Pulse 96 94 Resp 18 21 B/P (MAP) 120/85 (97) 114/74 Pulse Ox 96 95 94 O2 Delivery Room Air Room Air Room Air O2 Flow Rate 0 FiO2 21 09/14/23 09/14/23 09/14/23 09/14/23 21:15 21:59 22:38 23:53 Temp 36.2 Pulse 89 98 89 Resp 22 B/P (MAP) 108/72 (84) Pulse Ox 96 96 O2 Delivery Room Air FiO2 21 09/15/23 09/15/23 09/15/23 09/15/23 00:00 01:07 01:11 03:34 Temp 36.3 Pulse 93 87 87 87 Resp 14 22 20 B/P (MAP) 113/72 (86) 103/71 (82) Pulse Ox 98 97 O2 Delivery Room Air 09/15/23 09/15/23 09/15/23 09/15/23 04:00 07:00 07:49 08:00 Temp 36.1 Pulse 89 90 84 Resp 23 17 B/P (MAP) 111/75 (87) Pulse Ox 94 94 O2 Delivery Room Air Room Air Room Air 09/15/23 09/15/23 09/15/23 09/15/23 11:18 13:00 16:08 16:18 Temp 35.8 36.0 Pulse 89 88 90 Resp 11 13 B/P (MAP) 108/88 (95) 97/68 (78) Pulse Ox 93 89 O2 Delivery Room Air Room Air Capillary Refill : Less Than 3 Seconds General Appearance: WD/WN, no apparent distress Respiratory: no accessory muscle use, wheezing, other (deep breaths cause coughing) Cardiovascular: irregularly irregular Gastrointestinal: normal bowel sounds, non tender, soft Extremities: no pedal edema Neurologic/Psychiatric: alert, normal mood/affect Skin: normal color, warm/dry Assessment/Plan Assessment/Plan Admission Status: Observation (1) Chest pain Status: Acute Assessment & Plan: Complex given his multiple episodes related to cardiomyopathy and CHF. Troponin increased slightly and then back down. Appreciate Cardiology recommendations. (2) Elevated troponin Status: Acute (3) Nausea and vomiting Status: Acute Assessment & Plan: Suspect viral infection. Negative flu and COVID testing at office per report. Supportive care. (4) CHF exacerbation Status: Acute Assessment & Plan: Given IV lasix this morning, appreciate Cardiology recommendations. Qualifiers: Qualified Codes: I50.23 - Acute on chronic systolic (congestive) heart failure (5) A-fib Status: Chronic Assessment & Plan: Continue anticoagulation and home medications. Rate normal. (6) History of substance abuse Status: Chronic Assessment & Plan: Recent relapse, recommend connecting with treatment services. (7) HTN (hypertension) Status: Chronic (8) HFrEF (heart failure with reduced ejection fraction) Status: Chronic Assessment & Plan: Resume home medications, has been off for a bit of time, per Cardiology repeating echo. (9) HLD (hyperlipidemia) Status: Chronic Clinical Quality Measures AMI/AHF: ASA po Prior to arrival: JB Foreman MD Sep 15, 2023 08:43
[2023-09-15] MEDS ORDERED: POTASSIUM CHLORIDE 20 MEQ TABLET PO NR (09:00)
[2023-09-15] MEDS ORDERED: dilTIAZem ER 120 MG CAPSULE PO SCH (09:00)
[2023-09-15] MEDS ORDERED: FUROSEMIDE INJECTION 40 MG/4 ML VIAL IVP NR (09:00)
[2023-09-15] MEDS ORDERED: dilTIAZem ER 180 MG CAPSULE PO NR (09:30)
[2023-09-15] MEDS ORDERED: RIVAROXABAN 20 MG TABLET PO NR (09:30)
[2023-09-15] MEDS: EMPAGLIFLOZIN 10 MG TABLET PO SCH (09:43)
[2023-09-15] MEDS ORDERED: FAMO-356 PO (14:01)
[2023-09-15] MEDS ORDERED: LISI2.5T13 PO (14:01)
[2023-09-15] MEDS ORDERED: MTP25TSR PO (14:02)
[2023-09-15] MEDS ORDERED: RIVA20TA PO (14:03)
[2023-09-15] MEDS ORDERED: EMPA10TA PO (14:03)
[2023-09-15] MEDS ORDERED: ROSU20TA73 PO (14:03)
[2023-09-15] MEDS ORDERED: ALBU8.5H6 PO (14:04)
--- NOTE | 2023-09-15 16:33 | Consultation-Cardiology ---
HPI-Cardiology Cardiology Consultation: Date of Consultation 09/15/23 Time Seen by a Provider: 09:30 Date of Admission Attending Physician Mary Robles Aprn Admitting Physician Admitting Physician: Terra Landa MD Attending Physician: Terra Landa MD Consulting Physician SAVI SILVA MD, MA, FACP, FACC, FSCAI, CCDS HPI: Chief Complaint: Chest pain Mr. Alexander is a 43 yr old male who has been admitted to ICU 12 from the ED with c/o CP. He reports chest congestion, cough and chest discomfort worse with cough and deep breathing. He reports he has been off of his medications for at least a week or maybe more. He does report he took all of his medications yesterday. He reports he has relapsed and used meth (smokes) within the last 4 days. He c/o SOB. No c/o LE swelliing. He reports some dizziness, but no syncope or near syncope. No c/o n/v/d. Review of Systems-Cardiology Review of Systems Constitutional: No chills, No fever; malaise Eyes: No vision change Ears/Nose/Throat: No epistaxis, No recent hearing loss Respiratory: As described under HPI Cardiovascular: As described under HPI Gastrointestinal: No constipation, No diarrhea, No nausea, No vomiting Genitourinary: No dysuria, No hematuria Musculoskeletal: no symptoms reported Skin: No rash on exposed areas, No ulcerations on exposed areas Psychiatric/Neurological: anxiety, depression; No seizure, No focal weakness, No syncope Hematologic: No bleeding abnormalities All Other Systems Reviewed Negative Unless Noted: Yes [id number] Hx Patient Social History Smoking Status: Current Everyday Smoker 2nd Hand Smoke Exposure: Yes Alcohol Use?: Yes Substance type: Methamphetamine, Marijuana Tobacco type used: Cigarettes Immunizations Up To Date Tetanus Booster (TDap): Unknown Date of Influenza Vaccine: Sep 14, 2023 Past Medical History PMH As described under Assessment. Family Medical History Family Medical History: He states his father and brother both had hypertrophic cardiomyopathy. They both from the condition. His brother actually had a heart transplant and then . Allergies and Home Medications Allergies Coded Allergies: hydrocodone (Verified Allergy, Severe, ITCHING, 06/23/23) PT HAS TOLERATED MORPHINE AND HYDROMORPHONE IN PAST Penicillins (Verified Allergy, Unknown, ALMOST FROM WHEN YOUNGER, 06/23/23) Patient Home Medication List Home Medication List Reviewed: Yes Albuterol Sulfate (Ventolin Hfa) 90 Mcg Hfa.aer.ad, 2 PUFF PO Q6H PRN for SHIRA RTNESS OF BREATH, (Reported) Entered as Reported by: JACQUELINE TOBIAS on 09/15/231403 Last Action: Reviewed Empagliflozin (Jardiance) 10 Mg Tablet, 10 MG PO DAILY, (Reported) Entered as Reported by: JACQUELINE TOBIAS on 09/15/231402 Last Action: Reviewed Famotidine (Acid Patient Access Manager (FAMOTIDINE)) 20 Mg Tablet, 20 MG PO BID, (Reported) Entered as Reported by: JACQUELINE TOBIAS on 09/15/231400 Last Action: Reviewed Lisinopril (Lisinopril) 2.5 Mg Tablet, 2.5 MG PO DAILY, (Reported) Entered as Reported by: JACQUELINE TOBIAS on 09/15/231400 Last Action: Reviewed Metoprolol Succinate (Metoprolol Succinate) 25 Mg Tab.er.24h, 25 MG PO HS, (Reported) Entered as Reported by: JACQUELINE TOBIAS on 09/15/231401 Last Action: Reviewed Rivaroxaban (Xarelto) 20 Mg Tablet, 20 MG PO HS, (Reported) Entered as Reported by: JACQUELINE TOBIAS on 09/15/231402 Last Action: Reviewed Rosuvastatin Calcium (Rosuvastatin Calcium) 20 Mg Tablet, 20 MG PO DAILY, (Reported) Entered as Reported by: JACQUELINE TOBIAS on 09/15/231402 Last Action: Reviewed Discontinued Medications Clonazepam (Clonazepam) 1 Mg Tablet, 1 MG PO BID Discontinued Reason: No Longer Taking Prescribed by: MARCY ALVA on 06/24/23 1518 Last Action: Discontinued Physical Exam-Cardiology Physical Exam Vital Signs/I&O 09/15/23 09/15/23 09/15/23 09/15/23 07:00 07:49 08:00 11:18 Temp 36.1 35.8 Pulse 90 84 89 Resp 17 11 B/P (MAP) 111/75 (87) 108/88 (95) Pulse Ox 94 94 93 O2 Delivery Room Air Room Air Room Air 09/15/23 09/15/23 09/15/23 13:00 16:08 16:18 Temp 36.0 Pulse 88 90 Resp 13 B/P (MAP) 97/68 (78) Pulse Ox 89 O2 Delivery Room Air 09/14/23 23:59 Intake Total 150 ml Balance 150 ml Capillary Refill : Less Than 3 Seconds Constitutional: AAO x 3, well-developed, well-nourished HEENT: PERRL, hearing is well preserved Neck: No carotid bruit; carotid pulses are 2 + bilaterally Respiratory: No accessory muscle use, No respiratory distress; chest expansion is symmetric, chest is bilaterally symmetric, rhonchi (scattered), other (coarse breath sounds) Cardiovascular: irregularly irregular; No JVD; S1 and S2 Gastrointestinal: No tender; soft, round; No guarding; audible bowel sounds Extremities: no lower extremity edema bilateral Neurologic/Psychiatric: other (moves all extremities) Skin: No rash on exposed areas, No ulcerations on exposed areas Data Review Labs Laboratory Tests 09/14/23 16:40: Urine Opiates Screen NEGATIVE, Urine Oxycodone Screen NEGATIVE, Urine Methadone Screen NEGATIVE, Urine Barbiturates Screen NEGATIVE, Ur Tricyclic Antidepressants Screen NEGATIVE, Urine Phencyclidine Screen NEGATIVE, Urine Amphetamines Screen NEGATIVE, Urine Methamphetamines Screen POSITIVEH, Urine Benzodiazepines Screen NEGATIVE, Urine Cocaine Screen NEGATIVE, Urine Cannabinoids Screen POSITIVEH 09/14/23 18:35: Troponin I 0.032H 09/15/23 04:21: Troponin I < 0.028, White Blood Count 7.4, Red Blood Count 5.25, Hemoglobin 15 .7, Hematocrit 47, Mean Corpuscular Volume 90, Mean Corpuscular Hemoglobin 30, Mean Corpuscular Hemoglobin Concent 33, Red Cell Distribution Width 16.8H, Platelet Count 198, Mean Platelet Volume 12.0, Immature Granulocyte % (Auto) 0, Neutrophils (%) (Auto) 69, Lymphocytes (%) (Auto) 12, Monocytes (%) (Auto) 13H, Eosinophils (%) (Auto) 5, Basophils (%) (Auto) 0, Neutrophils # (Auto) 5.2, Lymphocytes # (Auto) 0.9L, Monocytes # (Auto) 1.0, Eosinophils # (Auto) 0.3, Basophils # (Auto) 0.0, Immature Granulocyte # (Auto) 0.0, Sodium Level 135, Potassium Level 3.5L, Chloride Level 101, Carbon Dioxide Level 24, Anion Gap 10, Blood Urea Nitrogen 17, Creatinine 0.99, Estimat Glomerular Filtration Rate 96, BUN/Creatinine Ratio 17, Glucose Level 95, Calcium Level 9.3, Triglycerides Level 77, Cholesterol Level 184, LDL Cholesterol Direct 159H, VLDL Cholesterol 15, HDL Cholesterol 34L 09/15/23 11:48: Troponin I 0.047H A/P-Cardiology Assessment/Admission Diagnosis URI - management per medical services Chest pain - worse with cough/deep breathing - no evidence of ACS 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 Tadeo (2150ml) H/O non-sustained WCT on 10/21/22 and 10/22/22 - probably aberrance during A Fib with RVR Acute on chronic systolic congestive heart failure - Echo was done in April 2022 with ejection fraction 40 to 45% with biatrial enlargement, moderate mitral regurgitation, pulmonary artery pressure 45 to 50 mmHg. - Echo of 10-11-[address] Hernandez showed LVEF 35-40%. Mod sized L pleural effusion. Mild MR. Mild to mod TR. - Echo on 10-26-22: LVEF 50-55%, mod biatrial enlargement, mod pleural eff - Echo on 06-24-[address] Russo: LVEF 45-50%. mod biatrial enlargement. Mild MR. RVSP 49 mmHg Persistent atrial fibrillation/flutter - History of ablation done in [place] in late 2020, previously refusing any further ablation - Had previously been on Eliquis but had had compliance issues - Lately on Xarelto for stroke prophylaxis - but has been non-compliant Nonischemic cardiomyopathy - cardiac catheterization done in [place] around 2019 did not show any obstructive disease. - Cardiac cath of 04-15-[address] Hernandez: Mild to moderate coronary ectasia in the circumflex artery, 40 to 50% stenosis in the mid LAD otherwise nonobstructive disease. Significantly elevated left ventricular end-diastolic pressure. Normal aortic arch and great vessels of the neck History of methamphetamine abuse. - recent relapse (tested positive this admission) - advised cessation and treatment program EtOH abuse - currently refraining Hyperlipidemia Tobaccoism - smoking 3 cigs per day - cessation advised History of noncompliance with medication or medical instructions History of elevated liver enzymes. - Probably underlying cirrhosis seen on CTA of the abdomen in the past. Discussion and Recomendations URI - management per medical services Chest pain - one minimally elevated troponin out of 3 NICM - has been non-compliant with medications - restart NOLVIA, BB, SGLT2 inhib, diuretics - Echocardiogram today Chronic a-fib - non-compliant with OAC - restart Xarelto Replace electrolytes Monitor lab closely Further recs will be based on his hospital course Advise cessation of methamphetamine use and to join outpt treatment program We would like to thank her for this consult Clinical Quality Measures AMI/AHF: ASA po Prior to arrival: SAVI Cheng MD FACP FAC CCDS Sep 15, 2023 16:33
[2023-09-15] MEDS: KETOROLAC INJ 15 MG/ML VIAL IVP PRN (16:44)
[2023-09-15] MEDS: FAMOTIDINE 20 MG TABLET PO SCH (20:26)
[2023-09-15] MEDS ORDERED: ROSUVASTATIN 20 MG TABLET PO SCH (21:00)
[2023-09-16] VITALS: BP_SYST 10; BP_SYST 101; BP_DIAS 50
[2023-09-16] MEDS: morphine INJ 4 MG/ML 1 ML (VIAL/SYRINGE) IVP PRN ×3 (01:47→11:40)
[2023-09-16 03:42] VITALS: BP 103/76
[2023-09-16 04:00] VITALS: BP 122/77
[2023-09-16 05:29] LABS: CALCIUM 8.8 MG/DL (8.5-10.1); CREATININE SERUM 0.86 MG/DL (0.60-1.30); POTASSIUM 4.4 MMOL/L (3.6-5.0)
[2023-09-16] MEDS: CATHETER FLUSH 10 ML SYR IVP SCH ×2 (06:07→11:41)
[2023-09-16] MEDS: KETOROLAC INJ 15 MG/ML VIAL IVP PRN (06:08)
[2023-09-16] MEDS ORDERED: POTASSIUM CHLORIDE 20 MEQ TABLET PO SCH (07:00)
[2023-09-16 08:00] VITALS: BP 110/77
[2023-09-16] MEDS ORDERED: DILT180C85 PO (08:00)
[2023-09-16] MEDS: FAMOTIDINE 20 MG TABLET PO SCH (08:33)
[2023-09-16] MEDS: EMPAGLIFLOZIN 10 MG TABLET PO SCH (08:33)
[2023-09-16] MEDS: LORazepam 0.5 MG TABLET PO PRN (08:36)
--- NOTE | 2023-09-16 08:36 | Progress Note - Cardiology ---
Cardiology SOAP Progress Note Subjective: Lying in bed C/O lose cough C/O chest discomfort with coughing and deep breathing Objective: I&O/Vital Signs Constitutional: AAO x 3, well-developed, well-nourished Respiratory: No accessory muscle use, No respiratory distress; chest expansion is symmetric, chest is bilaterally symmetric, rhonchi (scattered), other (coarse breath sounds) Cardiovascular: irregularly irregular; No JVD; S1 and S2 Gastrointestional: No tender; soft, round; No guarding; audible bowel sounds Extremities: no lower extremity edema bilateral Neurologic/Psychiatric: other (moves all extremities) Skin: No rash on exposed areas, No ulcerations on exposed areas Results/Procedures: Labs A/P: Assessment: URI - management per medical services Chest pain - worse with cough/deep breathing - no evidence of ACS Type 2 ME due to methamphetamine abuse Acute on chronic systolic CHF - continue diuretics - clinically compensated Shortness of breath - CXR 09-14-23 did not show pleural effusion - H/O thoracentesis on 01-18-[address] Tadeo (2150ml) H/O non-sustained WCT on 10/21/22 and 10/22/22 - probably aberrance during A Fib with RVR Acute on chronic systolic congestive heart failure - Echo was done in April 2022 with ejection fraction 40 to 45% with biatrial enlargement, moderate mitral regurgitation, pulmonary artery pressure 45 to 50 mmHg. - Echo of 10-11-[address] Hernandez showed LVEF 35-40%. Mod sized L pleural effusion. Mild MR. Mild to mod TR. - Echo on 10-26-22: LVEF 50-55%, mod biatrial enlargement, mod pleural eff - Echo on 06-24-[address] Russo: LVEF 45-50%. mod biatrial enlargement. Mild MR. RVSP 49 mmHg Persistent atrial fibrillation/flutter - History of ablation done in [place] in late 2020, previously refusing any further ablation - Had previously been on Eliquis but had had compliance issues - Lately on Xarelto for stroke prophylaxis - but has been non-compliant Nonischemic cardiomyopathy - cardiac catheterization done in [place] around 2019 did not show any obstructive disease. - Cardiac cath of 04-15-[address] Hernandez: Mild to moderate coronary ectasia in the circumflex artery, 40 to 50% stenosis in the mid LAD otherwise nonobstructive disease. Significantly elevated left ventricular end-diastolic pressure. Normal aortic arch and great vessels of the neck History of methamphetamine abuse. - recent relapse (tested positive this admission) - advised cessation and treatment program EtOH abuse - currently refraining Hyperlipidemia Tobaccoism - smoking 3 cigs per day - cessation advised History of noncompliance with medication or medical instructions History of elevated liver enzymes. - Probably underlying cirrhosis seen on CTA of the abdomen in the past. Plan: URI - management per medical services Chest pain -no evidence of ACS - appears pleuritic/musculoskeletal by description NICM - continue NOLVIA, BB, SGLT2 inhib, diuretics - Echocardiogram pending Chronic a-fib - non-compliant with OAC - Xarelto restarted Monitor lab closely Advise cessation of methamphetamine use and to join outpt treatment program Clinical Quality Measures AMI/AHF: ASA po Prior to arrival: ANN Correa [facility] Sep 16, 2023 08:36
[2023-09-16] MEDS ORDERED: dilTIAZem ER 180 MG CAPSULE PO SCH (09:00)
[2023-09-16 12:00] VITALS: BP 111/85
--- NOTE | 2023-09-16 14:29 | Discharge Summary ---
Discharge Summary Hospital Course Problems/Diagnosis: (1) Chest pain Status: Acute Assessment & Plan: Complex given his multiple episodes related to cardiomyopathy and CHF. Troponin increased slightly and then back down. Appreciate Cardiology recommendations. Resumed home medications, continue medical management. Echo EF 50%. (2) Elevated troponin Status: Acute (3) Nausea and vomiting Status: Resolved Resolution Date/Time: 09/16/23 @ 10:08 Assessment & Plan: Suspect viral infection. Negative flu and COVID testing at office per report. Supportive care. (4) CHF exacerbation Status: Resolved Resolution Date/Time: 09/17/23 @ 10:08 Assessment & Plan: Given IV lasix on admit, resumed home meds at d/c. Qualifiers: Qualified Codes: I50.23 - Acute on chronic systolic (congestive) heart failure (5) A-fib Status: Chronic Assessment & Plan: Continue anticoagulation and home medications. Rate normal. (6) History of substance abuse Status: Chronic Assessment & Plan: Recent relapse, recommend connecting with treatment services. (7) HTN (hypertension) Status: Chronic (8) HFrEF (heart failure with reduced ejection fraction) Status: Chronic Assessment & Plan: Resume home medications, has been off for a bit of time, per Cardiology repeated echo which showed EF 50% (9) HLD (hyperlipidemia) Status: Chronic Hospital Course Date of Admission: Sep 14, 2023 at 21:09 Admission Diagnosis : Family Physician/Provider: Mary Robles Aprn Date of Discharge: 09/16/23 Discharge Diagnosis: See problem list Hospital Course: See problem list Labs and Pending Lab Test: Laboratory Tests 09/16/23 05:00: Sodium Level 131L, Potassium Level 4.4, Chloride Level 101, Carbon Dioxide Level 18L, Anion Gap 12, Blood Urea Nitrogen 21H, Creatinine 0.86, Estimat Glomerular Filtration Rate 109, BUN/Creatinine Ratio 24, Glucose Level 94, Calcium Level 8.8, Magnesium Level 2.0 Home Meds Active Diltiazem 24Hr ER (Diltiazem HCl) 180 Mg Cap.er.24h 180 Mg PO DAILY Reported Ventolin Hfa (Albuterol Sulfate) 90 Mcg Hfa.aer.ad 2 Puff PO Q6H PRN 1 PUFF = 90 MCG Jardiance (Empagliflozin) 10 Mg Tablet 10 Mg PO DAILY LAST FILLED 9-15-2023 #30 Xarelto (Rivaroxaban) 20 Mg Tablet 20 Mg PO HS LAST FILLED 06-24-2023 #30 Rosuvastatin Calcium 20 Mg Tablet 20 Mg PO DAILY LAST FILLED 06-24-2023 #30 Metoprolol Succinate 25 Mg Tab.er.24h 25 Mg PO HS LAST FILLED 06-24-2023 #30 Lisinopril 2.5 Mg Tablet 2.5 Mg PO DAILY LAST FILLED 06-24-2023 #30 Acid Shim Plug Cutter (FAMOTIDINE) (Famotidine) 20 Mg Tablet 20 Mg PO BID Assessment/Pt DC Instructions Follow up with Cardiology as directed. Follow up with primary within a week of discharge. Discharge Diet: Cardiac Diet Activity as Tolerated: Yes Discharge Physical Examination Allergies: Coded Allergies: hydrocodone (Verified Allergy, Severe, ITCHING, 06/23/23) PT HAS TOLERATED MORPHINE AND HYDROMORPHONE IN PAST Penicillins (Verified Allergy, Unknown, ALMOST FROM WHEN YOUNGER, 06/23/23) General Appearance: No Apparent Distress Respiratory: Lungs Clear, Normal Breath Sounds Cardiovascular: Regular Rate, Rhythm, No Murmur Gastrointestinal: Normal Bowel Sounds, Non Tender, Soft Skin: Normal Color, Warm/Dry Neurologic/Psychiatric: Alert, Normal Mood/Affect Clinical Quality Measures AMI/AHF: ASA po Prior to arrival: JB Foreman MD Sep 16, 2023 14:29
[2023-09-16] MEDS ORDERED: RIVAROXABAN 20 MG TABLET PO SCH (17:00)
== END 2023-09-16 14:27 | disposition home or self-care (01) ==
LOC: EDUNIT# 16:19 → ER 16:21 → UNDOADMOB 21:09 → ICU 21:09 → UNDODISOB 09-16 14:35
PROVIDERS: ADMIT Family Medicine; ATTEND Family Medicine
DX: J06.9 Acute upper respiratory infection, unspecified (principal); R79.89 Other specified abnormal findings of blood chemistry; R11.2 Nausea with vomiting, unspecified; I11.0 Hypertensive heart disease with heart failure; I50.23 Acute on chronic systolic (congestive) heart failure; E78.5 Hyperlipidemia, unspecified; I21.A1 Myocardial infarction type 2; I42.8 Other cardiomyopathies; I48.92 Unspecified atrial flutter; R74.01 Elevation of levels of liver transaminase levels; I48.20 Chronic atrial fibrillation, unspecified; F17.210 Nicotine dependence, cigarettes, uncomplicated; F10.10 Alcohol abuse, uncomplicated; Y90.9 Presence of alcohol in blood, level not specified; Z79.899 Other long term (current) drug therapy; Z91.199 Patient's noncompliance with other medical treatment and regimen due to unspecified reason; Z79.82 Long term (current) use of aspirin
CPT/HCPCS: 71045; 80048 ×2; 80053; 80061; 80306; 83690; 83735 ×2; 83874; 83880; 84484 ×2; 85025 ×2; 85610; 85730; 93005 ×2; 94640; 96374; 96375; 99283; C8929; 36415; 93306; 96376